=== PATIENT | female | born 1960 | race Caucasian/White ===

== ENCOUNTER 2017-06-24 14:54 | Emergency (ER) | payer OTHER, MEDICAID, SELFPAY | END 2017-06-24 18:12 | disposition home or self-care (01) | PROVIDERS: Emergency Provider Emergency Medicine; Visit Provider Emergency Medicine | DX: J20.9 Acute bronchitis, unspecified (principal) | CPT/HCPCS: 36415; 71020; 71046; 80053; 83605; 83880; 84484; 85025; 85610; 85730; 87040; 93005; 93010; 94799; 99058; 99285 ==

== ENCOUNTER → 2017-07-24 13:55 | Outpatient (CLI) | payer OTHER, MEDICAID, SELFPAY | PROVIDERS: Visit Provider Internal Medicine | DX: S11.89XA Other open wound of other specified part of neck, initial encounter (principal); L59.8 Other specified disorders of the skin and subcutaneous tissue related to radiation; L98.492 Non-pressure chronic ulcer of skin of other sites with fat layer exposed | CPT/HCPCS: 11042 ==

== ENCOUNTER → 2017-07-31 13:51 | Outpatient (REF) | payer OTHER, MEDICAID, SELFPAY | LOC: LAB 13:51 | PROVIDERS: Visit Provider Internal Medicine | DX: L08.9 Local infection of the skin and subcutaneous tissue, unspecified (principal) | CPT/HCPCS: 87070; 87075; 87077; 87186; 87205 ==

== ENCOUNTER → 2017-07-31 14:00 | Outpatient (CLI) | payer OTHER, MEDICAID, SELFPAY | PROVIDERS: Visit Provider Internal Medicine | DX: L59.8 Other specified disorders of the skin and subcutaneous tissue related to radiation (principal); S11.89XA Other open wound of other specified part of neck, initial encounter; L98.492 Non-pressure chronic ulcer of skin of other sites with fat layer exposed | CPT/HCPCS: 11042; 87070; 87077; 87186; 87205 ==

== ENCOUNTER → 2017-08-07 13:04 | Outpatient (CLI) | payer OTHER, MEDICAID, SELFPAY | PROVIDERS: Visit Provider Internal Medicine | DX: S11.89XA Other open wound of other specified part of neck, initial encounter (principal); L59.8 Other specified disorders of the skin and subcutaneous tissue related to radiation; B95.2 Enterococcus as the cause of diseases classified elsewhere | CPT/HCPCS: 11042 ==

== ENCOUNTER → 2017-08-14 15:13 | Outpatient (CLI) | payer OTHER, MEDICAID, SELFPAY | PROVIDERS: Visit Provider Internal Medicine | DX: S11.89XA Other open wound of other specified part of neck, initial encounter (principal); L59.8 Other specified disorders of the skin and subcutaneous tissue related to radiation; L98.492 Non-pressure chronic ulcer of skin of other sites with fat layer exposed; B95.2 Enterococcus as the cause of diseases classified elsewhere | CPT/HCPCS: 11042 ==

== ENCOUNTER → 2017-08-24 13:16 | Outpatient (CLI) | payer OTHER, MEDICAID, SELFPAY ==
--- NOTE | 2017-08-24 | OV.WND_ITS ---
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 Allergies Penicillins (Severity: Moderate, Reaction: rash and hives), Vicodin (Severity: Moderate, Reaction: Rash and hives), ibuprofen (Severity: Moderate, Reaction: Rash and hives), Gelusil Antacid and Anti-Gas (Severity: Moderate, Reaction: increase in stomach discomfort), Septra (Severity: Moderate, Reaction: GI upset), Flagyl (Severity: Moderate, Reaction: Rash), Benadryl (Reaction: Rash), ranitidine (Severity: Moderate, Reaction: SOB, dizzy) HPI This information was obtained from the patient 08/24/17. Seen by Dr. Cornell. 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 She continues to apply topical gentamicin to the ulcer to treat the Enterococcus positive wound culture as recommended. 08/14/17. Seen by Dr. Cornell. The patient's been applying topical gentamicin daily to the soft tissue radiation neck ulcer to treat the recent Enterococcus positive wound culture and she's completed her course of levofloxacin. 08/07/17. Seen by Dr. Cornell. 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 She does not report increased pain nor drainage from the site however nor other acute issues today. 07/31/17. Seen by Dr. Cornell. 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 07/24/17. Seen by Dr. Cornell. 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 07/17/17. Seen by Dr. Cornell. 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 Of note, the patient also states she fell from her bed a few days ago resulting in bilateral black eyes. 07/10/2017. Seen by Dr. Cornell. 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 She does not report increased drainage however nor other acute issues. 07/03/17. Seen by Dr. Cornell. 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 06/19/17. Seen by Dr. Cornell. 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 06/09/17. Seen by Dr. Cornell. The patient reports some pain associated with the anterior neck right sided soft tissue radiation ulcer and continues on doxycycline and levofloxacin following a recent admission for a COPD exacerbation. She does not report increased drainage from the ulcer sites and is using Xeroform and Scar-away dressings as recommended. 06/01/17. Seen by Dr. Cornell. The patient was admitted to the hospital for a COPD exacerbation and is now on oral antibiotics following discharge. She reports some ear pain but otherwise no acute issues. Regarding her soft tissue radiation ulcers over the anterior neck she is now using the silicone dressings and Xeroform as recommended and does not report significant pain or drainage.Of note, these are complicated significantly by her tracheostomy tube and attached strap that tends to shear the irradiated skin causing ulcers. 05/25/17. Seen by Dr. Cornell. The patient reports pain associated with the chronic soft tissue radiation neck ulcers. She states her dressings are not on continuously and that she has been wearing her tracheostomy strap for extended periods at home despite our advice to not use it if possible. 05/18/17. Seen by Finn Felton PA-C. The patient reports continued pain from her soft tissue radiation ulcers of the neck. She has finished a once daily antibiotic for a URI but does not recall which antibiotic it was. 05/11/17. Seen by Finn Felton PA-C. The patient reports increased pain and increased drainage from her soft tissue radiation ulcers of the neck. 04/23/17. Similarly Dr. Cornell. The patient does not report increased pain nor drainage associated with the chronic neck soft tissue radiation ulcers since her last visit. 04/16/17. Seen by Finn Felton PA-C. The patient reports that the Radia-gel dressings did not stay in place and the tape used to secure them caused skin tears. 04/09/17. Seen by Finn Felton PA-C. The patient reports no increase in drainage from her radiation ulcers of the neck. 04/02/17. Seen by Finn Felton PA-C. The patient reports her usual amount of pain from her anterior neck ulcers. 03/26/17. Seen by Dr. Cornell. 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 She was discharged recently from [facility] following treatment for an acute URI and is now on levofloxacin. 03/19/17. Seen by Dr. Cornell. The patient does not report significant pain associated with chronic anterior neck soft tssue radiation ulcer since her last visit. 03/12/17. Seen by Dr. Cornell. The patient reports increased pain associated with the anterior neck soft tissue radiation ulcers. Of note, she is reusing her silicon dressings and washing them despite being advised not to do this in the past. She has very limited financial resources that is leading her to do this. 03/04/17. Seen by Dr. Cornell. 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 She continues on doxycycline for a cat bite at the right arm without reported adverse side effects and feels this is improving. There are also no new issues regarding his left neck nonpressure ulcer. 02/24/17. Seen by Dr. Cornell. 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 She was seen in the ER for this and had a CT performed that showed cellulitis but no associated abscess. She was started on levofloxacin at that visit. Also, she was to start doxycycline following her last wound care visit for a cat bite of the right arm however states the antibiotic was not covered by insurance so she has not started this. Otherwise, she does not report fevers or feeling unwell in general. 02/17/17. Seen by Dr. Cornell. The patient reports continued pain associated with the anterior and left lateral neck soft tissue radiation ulcers since her last visit. She is not currently on antibiotics. She also reports a cat bite of the right arm that's been bleeding and painful for the past 2 days since it occurred. 02/10/17. Seen by Finn Felton PA-C. The patient reports a new ulcer on her left neck , in the irradiated area from her previous radiation treatment. 01/16/17. Seen by Dr. Cornell. The patient reports some moderate pain and drainage associated with her chronic neck soft tissue radiation ulcers since her last visit. 01/09/17. Seen by Dr. Cornell. The patient does not report significant pain or increased drainage associated with her chronic neck soft tissue radiation ulcers since her last visit. Her recent wound culture grew ocampo-sensitive Staph aureus and she's applying topical gentamicin as recommended. 01/01/17. Seen by Finn Felton PA-C. The patient reports increased pain and drainage from her chronic neck ulcers which overly an irradiated field. 12/17/16. Seen by Dr. Cornell. The patient does not report significant pain or increased drainage associated with her chronic neck soft tissue radiation ulcers since her last visit. She'll be leaving for a hunting trip and will be gone until December 31. 12/11/16. Seen by Dr. Cornell. The patient does not report significant pain nor drainage associated with chronic neck soft tissue radiation ulcers since her last visit. She completed her course of levofloxacin in the interim and also states that she will not be undergoing reconstructive surgery following discussion with her surgeons. 11/27/16. Seen by Dr. Cornell. The patient reports increased pain and some bloody drainage associated with the anterior neck soft tissue radiation ulcer. She also states that she's had a persistent and productive cough over the past few days. Her most recent wound culture grew MSSA and the prior grew a pansensitive Pseudomonas organism. Staff also report a new ulcer over the left anterior neck. 11/20/16. Seen by Finn Felton PA-C. The patient came in urgently today to be evaluated for increased bleeding and drainage from her neck ulcers which overly radiation damaged tissue. 11/14/16. Seen by Dr. Cornell. The patient continues to apply topical gentamicin to the chronic soft tissue radiation neck ulcers to treat the recent Pseudomonas positive wound culture. She does not report significant pain or increased drainage from these sites. She has an appointment with another surgeon on November 21 to further discuss reconstructive options regarding the narrowing of her stoma and significant soft tissue contractures around the anterior neck. 11/07/16. Seen by Dr. Cornell. The patient reports a new ulcer over the left side of her neck at an area of scarring associated with her chronic soft tissue radiation injury of the neck. She does not report significant pain nor drainage at the site nor from the chronic anterior nonpressure ulcer. Her last culture at that site grew Pseudomonas that is intermediately. 10/31/16. Seen by Dr. Cornell. The patient and her caregiver reports increased drainage associated with the chronic and progressive right anterior neck soft tissue radiation ulcer over the past week. They're having issues in terms of dressing changes and managing increased drainage and the patient also has a persistent and productive cough with mucus being expelled from the tracheostomy site. Of note, the caregiver states that she has been attempting to liaise with Dr. Lopez's office, ENT surgery at , regarding a follow up appointment to discuss reconstructive surgery in hopes of addressing the chronic skin contractures that are contributing heavily to the refractory nature of this neck ulcer. 10/23/16. Seen by Finn Felton PA-C. The patient reports no increase in pain or drainage from her neck ulcer. Her two ulcers have bridged into one ulcer. She has no new news regarding a surgical revision. 10/10/16. Seen by Dr. Cornell.The patient does not report increased pain or drainage associated with the chronic soft tissue neck radiation ulcers since her last visit. Her culture from the last visit grew diphtheroids and she's been applying topical gentamicin as recommended. According to her caregiver they have still not heard back regarding an appointment with her surgeon who is planning a revision for the stenosed tracheostomy site noting the tube is contributing significantly to the ulcer formation. She also does not report significant pain or drainage associated with the superficial abdominal abscess noted at her last visit. 10/03/16. Seen by Dr. Cornell. The patient continues to report some pain associated with the chronic neck soft tissue radiation ulcers. The patient caregiver feels the proximal ulcer continues to increase in size. They have not yet scheduled an appointment for revision surgery for the tracheostomy as was discussed last week. 09/26/16. Seen by Dr. Cornell. The patient continues to report some pain as well as persistent drainage associated with the chronic right neck soft-tissue radiation ulcers. 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 He is planning for a revision surgery to try to address this issue in the near future. 09/19/16. Seen by Dr. Cornell. The patient and her brother continue to report some pain associated with the chronic neck nonpressure ulcers but no increased drainage and they've been changing the silicon dressings as recommended to protect the soft-tissue radiation injured skin and protect against abrasion caused by the tracheosteomy tube. Of note, the patient feels as though the stoma may gradually be tightening as she continues to have some difficulty replacing the tube after taking it out. She also reports some persistent productive coughing and nasal drainage in the evenings and through the night and feels it may be related to allergies. 09/01/16. Seen by Dr. Cornell. The patient's brother who's present today reports that the patient's silicon dressings are being changed less frequently than recommended and in washing them the adherence is deteriorating which may be leading to loss of function in terms of protecting the underlying irradiated skin and neck ulcers. She does not report increased drainage or pain associated with the neck ulcers today. 08/28/16. Seen by Dr. Cornell. The patient removed her tracheostomy tube in clinic today and is having difficulty replacing it. She's a bit anxious at the time of exam but is breathing without distress or audible stridor. Regarding her chronic neck soft tissue radiation ulcers, there's no new issues to report and she's been dressing them as recommended. 08/21/16. Seen by Dr. Cornell. The patient reports continued pain and drainage associated with the chronic soft tissue radiation ulcer along the margin of her tracheostomy stoma. She and her caregiver are dressing it as recommended and she's completed her course of antibiotics those treating the recently cultured MRSA. 08/15/16. Seen by Dr. Cornell. The patient reports increased pain associated with the chronic soft tissue radiation neck ulcers since her last visit and her caregiver reports some thick overlying drainage around the mid-line ulcer adjacent to the tracheostomy stoma. She does not report fevers or feeling unwell however and has been applying topical antibiotic to the ulcers as recommended. 08/08/16. Seen by Dr. Cornell. The patient reports continued pain associated with the chronic anterior neck non-pressure ulcers and they've been applying topical gentamicin to treat the recurrent MRSA positive wound cutlures. She's also wearing her silicon dressing as recommended to help protect the soft tissue radiation injury of the skin from abrasion caused by her tracheostomy tube strap. 08/01/16. Seen by Dr. Cornell. The patient's caregiver reports improvement in terms of pain and drainage associated with the chronic neck ulcers. They've been applying topical gentamicin as recommended for the chronic wound infections. 07/23/16. Seen by Dr. Cornell. The patient's caregiver reports improvement in terms of pain and drainage associated with the chronic neck ulcers overlying the soft tissue radiation injury that follow treatment for her laryngeal cancer years ago. They've been applying topical gentamicin as recommended for the chronic wound infections. 07/09/16. Seen by Finn Felton PA-C. The patient reports she has run out of the silicone strips that were fabricated by [employer] to reduce abrasion from her laryngostomy collar. She is using scar fade strips which are not staying in place. Her neck ulcers continue to be present under the collar. 06/25/16. Seen by Dr. Cornell. The patient's caregiver reports improvement in terms of pain and drainage associated with the chronic neck ulcers. They've been applying topical gentamicin as recommended for the chronic wound infections. 06/11/16. Seen by Dr. Cornell. The patient reports improvement in terms of pain and drainage associated with the chronic neck ulcers. She completed her course of ciprofloxacin which was treating the recurrent ulcer infections and she continues to apply topical gentamicin to the ulcer beds. 06/04/16. Seen by Dr. Cornell. The patient continues to report some pain and minimal drainage associated with the chronic neck ulcers are complicated by underlying soft tissue radiation injury. She was just discharged from the hospital for tracheobronchitis and continues on ciprofloxacin with cultures that have grown Pseudomonas, Staph, and Haemophilus. She does not report adverse side effects from antibiotics nor fevers or feeling unwell today although she continues to have a mild cough. 05/26/16. Seen by Finn Felton PA-C. The patient reports no increase in drainage or pain from her neck ulcers. 05/16/16. Seen by Dr. Cornell. The patient does not report significant pain nor drainage associated with the recurrent neck soft tissue radiation ulcers since her last visit. She's been applying topical gentamicin as recommended and wearing the silicon dressings to protect from the trach tube strap rubbing on the irradiated skin.Also, her wound culture from the last visit grew MSSA. 05/09/16. Seen by Dr. Cornell. The patient feels her recurrent soft tissue radiation ulcers over the mid and left aspects of her neck are painful and draining for the past week. She reports wearing her silicon dressing but does not have it in place all of the time and has been leaving her tracheostomy tube strap off for extended periods during the day to help prevent abrasion. She's been applying topical gentamicin to the ulcers but is not currently on systemic antibiotics. 04/29/16. Seen by Finn Felton PA-C. The patient reports continued compliance with her silicone skin protector that she wears under her collar. She reports improvement in her neck ulcers, however she ran out of supplies a few days ago and now reports worsening of the ulcers. 04/11/16. Seen by Dr. Cornell. The patient reports decreased pain and drainage associated with the chronic neck non-pressure ulcers over the patient week and she's applying topical gentamicin to treat the chronic MRSA wound infection as recommended. She's also using silicon dressings to help better protect the soft tissue radiation injury to the neck which is heavily implicated in the recurrent and refractory nature of the ulcers. 04/04/16. Seen by Dr. Cornell. The patient reports an increase in the size and pain associated with the left neck non-pressure ulcer since her last visit. She's applying gentamicin ointment to all of the ulcers a recommended and using the silicon dressings to help prevent abrasion caused by the trach tube strap. 03/28/16. Seen by Dr. Cornell. The patient reports decreased pain and drainage associated with the chronic neck non-pressure ulcers over the patient week and she's restarted use of the silicon dressings again to protect the irradiated skin that's been breaking down under the trach strap and contributing to the recurrent and refractory nature of the ulcers. 03/21/16. Seen by Dr. Cornell. The patient reports decreased pain and drainage associated with the chronic neck non-pressure ulcers over the patient week and she continues applying topical gentamicin to treat the chronic MRSA wound infection. 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 03/13/15. Seen by Dr. Cornell. The patient reports decreased pain and drainage associated with the chronic neck non-pressure ulcers over the patient week since starting on doxycycline for a recurrent MRSA wound infection. She's now using silicon dressings to protect the irradiated skin over the neck that resulted from radiation therapy treating laryngeal cancer. She does not report adverse effects of the doxycycline and is also applying topical gentamicin daily to the ulcer sites. 03/06/16. Seen by Dr. Cornell. The patient reports persistent pain associated with the recurrent neck non-pressure ulcers and staff report they're larger and are draining based on the dressings. 02/28/16. Seen by Dr. Cornell. The patient returns with new ulcers overlying her soft tissue radiation neck injury that resulted following treatment for laryngeal cancer. She states she ran out of the silicon dressings she uses to protect the area from her trach tube strap and after this the ulcers appeared and are quite painful. Their draining however she does not report fevers. 11/28/15. Seen by Dr. Cornell. 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 11/21/15. Seen by Dr. Cornell. The patient reports some minimal pain associated with the chronic neck soft tissue radiation ulcer since her last visit. She also complains of right ear pain and has asked me to have look in the ear as it feels like there may be a foreign body present. She also reports a mild cough, sore throat, and feeling a bit unwell in general. 11/14/15. Seen by Dr. Cornell. The patient reports moderate pain but no significant drainage associated with the left neck soft tissue radiation ulcer since her last visit. 10/31/15. Seen by Dr. Cornell. The patient reports some pain associated with the left neck soft tissue radiation ulcer but no increased drainage from either ulcer nor pain associated with the middle soft tissue radiation ulcer. Her caregiver notes that they're running out of the silicon dressings and they've become nearly prohibitively expensive. 10/12/15 Seen by Finn Felton PA-C. The patient returns to our clinic after reconstructive scar- revision surgery on her radiation damaged neck. She has wounds that have been left to close by secondary intention and are slow to heal. In addition, her silicone strips that help hold her laringostomy collar in place continue to work well for her. 09/07/[address] Cornell. The patient presents with a new rash over the right neck overlying the soft tissue radiation injury. Of note, her very chronic wounds at the same site were recently healed. She dose not report pain, drainage, or skin breakdown associated with the rash. 08/24/[address] Cornell. The patient does not report pain or drainage associated with the chronic neck soft tissue radiation ulcers over the past few days and she's using the silicon dressings to cover the ulcers. 08/15/[address] Cornell. The patient nor her caregiver report significant pain or drainage from either the left or right neck soft tissue radiation ulcers over the past week and she's received her silicon dressings that are being used to prevent abrasion to the skin caused by her laryngostomy tube strap. 08/09/[address] Cornell. 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 Otherwise the right neck ulcers remain relatively stable and have minimal drainage over the past week. 08/02/[address] Cornell. The patient reports minimal discomfort associated with the chronic neck soft tissue radiation ulcers and her caregiver feels they've improved considerably over the past week while applying gentamicin ointment and using the silicon dressing to prevent abrasion from the trach strap. 07/26/[address] Cornell. The patient reports only moderate discomfort and minimal drainage associate with her remaining soft tissue radiation ulcers of the neck. 07/19/[address] Cornell. The patient's caregiver reports increased drainage on the dressings covering the neck soft tissue radiation ulcers and the patient reports some increased pain at the ulcer sites. They're also running out of the silicon dressings they' ve been using to protect the ulcers from abrasion caused by the overlying trach strap. She does not report any problems regarding the chronic left upper arm wound. 07/12/[address] Cornell. The patient does not report increased pain or drainage associated with her chronic neck soft tissue radiation ulcers and she's been using her silicon wound dressings daily. She feels her ulcers are much less painful since changing to the new dressings. 07/05/[address] Cornell. The patient reports a significant improvement in pain regarding her chronic neck soft tissue radiation ulcers since starting to use adherent silicon dressings to prevent abrasion caused by her trach strap. She does not report significant drainage from the ulcers. 06/22/[address] Cornell. The patient continues to report persistent pain associated with the chronic neck soft tissue radiation ulcers. 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 06/12/15 Seen by Finn Felton PA-C. The patient reports continued pain from her radiation neck ulcers. 06/05/15 Seen by Finn Felton PA-C. The patient reports continued pain and stable drainage from her neck radiation ulcers. She continues to use her favored dressings instead of ones that we have recommended for her. 05/21/15 Seen by Finn Felton PA-C. The patient reports continued pain and no change in drainage from her neck radiation ulcers and her arm and chest wounds. 05/08/15 Seen by Finn Felton PA-C. The patient reports continued pain and stable drainage from her neck radiation ulcers. Flores from [facility] [employer] attended part of the appointment to try fitting her for the laryngectomy collar protective prosthetic. 04/25/[address] Cornell. The patient continues to report significant pain associated with the chronic soft tissue radiation neck ulcers and the staff report at least moderate drainage on her dressings today. She does not report fevers or feeling unwell otherwise. 04/11/[address] Cornell. The patient been on levofloxacin and doxycycline for Pseudomonas and MRSA positive wounds cultures taken from her soft tissue radiation ulcers over the neck and around the laryngostomy wound. She still reports pain associated with the ulcers but indicates it's not as bad as last week. 04/05/[address] Cornell. The patient reports persistent pain associated with her neck soft tissue radiation ulcers. She's currently on levofloxacin and doxycycline for the Pseudomonas and MRSA positive culture taken at the last visit and she does not report adverse side effects. 03/28/2015 Seen by Finn Felton PA-C. The patient continues to complain of neck ulcer pain. In addition she again asks today why are they hurting. She has not been compliant with any of our attempts at specialized laryngectomy collar padding or dressings. 03/21/2015 Seen by Finn Felton PA-C. The patient returns with stable 6-7/10 constant pain from the radiation ulcers on her neck. She continues on Doxycycline and has finished her course of prednisone for a URI as prescribed by her PCP. He has recently not been able to keep the Radiagel sheets attached to her neck or tracheostomy collar and has gone back to using Xeroform gauze. 02/19/15 Seen by Finn Felton PA-C. The patient returns for evaluation of her radiation ulcers of the neck. She reports continued pain and her most recent dressings that we have trialed did not stay in place. 02/12/15 Seen by Finn Felton PA-C. The patient reports continued neck pain from her radiation ulcers as well as tightness in her surrounding neck tissues. She reports the pain is exacerbated by rubbing of her tracheostomy tube macias and by any palpation or instrumentation. Drainage has been minimal. 02/05/15 Seen by Finn Felton PA-C. The patient presents today with a new wound on her left lateral neck, on her irradiated tissue. This wound is 01/24/[address] Cornell. The patient reports a cough and feeling unwell the past few days. She continues on doxycycline and levofloxcacin for the recent MRSA and Pseudomonas positive wound culture. Of note, she arrives today with gauze dressings over her next ulcers as opposed to foam which has been recommended. 01/17/[address] Cornell. The patient's been started on doxycycline and levofloxacin for her wound culture from the last visit that grew MRSA again plus Pseudomonas which is new. She reports having a cough and low grade fever also and the staff report the left neck ulcer dressings as being quite wet. 01/12/[address] Cornell. The patient indicates the neck ulcer pain is a 6-7/ 10 today and states she's been adhering to our dressing change recommendations. She's not currently on antibiotics and does not report fever although she feels a bit under the weather. 01/05/[address] Cornell. The patient complains of 4/10 pain at the site of her remaining chronic neck ulcers. 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 12/18/14 Seen by Finn Felton PA-C. The patient continues to have difficulty securing her dressings and keeping them in place under her tracheostomy collar. She is planning on going deer hunting and will be away from our clinic for over 1 week. 12/12/[address] Cornell. The patient complains of significant right ear pain. Her left neck ulcer culture from the last visit grew MRSA and she's not currently on antibiotics at this time. Of note, the foam that we placed around the tracheostomy tube to prevent abrasion was not in place on the patient's arrival today. 12/08/[address] Cornell. The patient complains of some persistent pain at the site of the left neck ulcer but does not report fever or increased drainage. Of note, she's not changed her dressing since her last visit 3 days ago. 11/28/14 Seen by Finn Felton PA-C. The patient again reports right ear pain without drainage or disturbance in hearing. The dressing on her head wound has stayed in place and her neck dressings lasted less than 24hrs in place. Scalp wound pain has decreased. 11/28/14 Seen by Finn Felton PA-C. The patient has seen her PCP for her right ear issues and he has prescribed her Cefuroxime, which she is currently taking. She has kept her scalp dressing in place and reports continued neck pain and a new neck wound on the left. 11/14/14 Seen by Finn Felton PA-C. The patient's right sided neck wound and scalp wound are much improved today after she has been keeping her head wound covered and has loosened her trach collar. Both wounds are reportedly less painful than before. 11/07/14 Doc Z Surg: patient returns for follow-up of the radiation injury and mechanical abrasions wounds of the neck laterally and anteriorly adjacent to the tracheostomy straps which appear to have been chafing on this sensitive skin in the field of radiation. The padded protective dressing has been utilized since her last visit and shows marked improvement in all of the wounds. Also the scalp abrasions which appear to be fingernail scrapings have also improved markedly after the patient educated to avoid fingernails scratching on the scalp area. Question was raised regarding the possibly poor fitting tracheostomy tube but this appears normal and not problematic to my examination. At present I do not see any need for ENT reevaluation of the [id number] tracheostomy site. 10/26/[address] Cornell. The patient complains of recurrent right ear pain that's constant over the past week but does not report fever, sweats, or drainage from the ear. Her wound cultres from the scalp and neck ulcers grew MRSA on 10/04/14. She continues to report pain at these sites and has been unable to maintain dressings as recommended due to discomfort and the fact the scalp dressing falls off. 10/12/14 Seen by Finn Felton PA-C. The patient reports ear pain after completing HBOT. Her wounds still feel tight around her neck but are otherwise stable and more comfortable with her new foam neck dressings. 10/04/[address] Cornell. The patient feels the pain associated with her neck and scalp ulcers is improved and only noticeable intermittently. She arrived today with foam dressings over the neck ulcers which we started utilizing last week to minimize trauma from the tracheostomy tube harness to the skin and ulcers beneath. 09/27/[address] Cornell. The patient feels her neck ulcers and scalp wounds are less painful however the staff report that the dressing plan we implemented to help prevent abrasion to the neck ulcers does not seem to have been continued after the patient left clinic last week. She's now off of antibiotics and does not report increased drainage. 09/20/[address] Cornell. The patient feels her scalp and neck ulcer pain are improving since she's been on IV daptomycin. She also had a doppler study yesterday that rule out a left arm DVT however she still complains of swelling and discomfort in the arm. 09/06/[address] Cornell. The patient complains of continued pain and drainage associated with her scalp and neck ulcers. She's no longer on antibiotics and recently grew Enterococcus and resistant coag negative Staph from the ulcer sites respectively. 08/30/[address] Cornell. The patient reports continued pain at the neck and scalp ulcers and her scalp wound grew Enterococcus on 08/23/14. She's taking clindamycin and completed a course of azithromycin that were started in the ER due to a recurrent URI. 08/16/14 Seen by Finn Felton PA-C. The patient continues to take Keflex for her scalp wound bacterial infection. She reports it is now more painful and draining more than before. Her neck radiation wounds continue to feel tight. 08/14/14 Seen by Finn Felton PA-C. The patient complains of right ear pain and fullness which started today. She reports feeling like she might have a cold coming on. 08/09/[address] Cornell. The patient complains of persistent pain at the site of the neck ulcers and worsening pain at the scalp ulcer. She's taking doxycycline based on the most recent MSSA wound culture sensitivities from the neck ulcer and does not report any adverse side effects. 07/08/[address] Cornell. The patient feels the neck ulcer pain is improving and she's completed her course of doxycycline that was started last week. She still complains of significant pain a the site of the scalp lesion however. Her wound culture from 07/28 grew MSSA sensitive to doxycycline. 07/26/[address] Cornell. The patient complains of increased pain at the neck ulcers as well as the scalp lesion. She does not report increased drainage, fever, cough, or chills and states her previously reported right ear pain has improved. 07/14/[address] Cornell. The patient reports right ear pain with a sore throat but no fevers or cough. 07/11/14 Seen by Finn Felton PA-C. The patient reports less scalp pain and no drainage from her scalp wound. She continues to report a pulling type pain in and around her neck wounds. 07/04/14 Seen by Finn Felton PA-C. The patient has cut her fingernails short and reports that her scalp wound is hurting and itching less. She reports a new wound over an old abdominal scar today. It has been present for 5 days and she is not sure how it occurred. 06/20/14 The patient feels her neck ulcer pain as well as the scalp lesion pain have improved since starting doxycycline. She continues to apply hydrogel and Xeroform to the neck ulcers to keep them moist. Otherwise she's tolerating HBOT without difficulty and has made significant progress in the healing of the neck ulcers throughout this most recent series of dives. 06/13/14 The patient indicates that her neck ulcers 'feel tight' and she still has some discomfort at the scalp lesions. She also complains of significant pruritis in the area of the scalp lesions. She's been taking taking doxycycline for the past week to treat a MRSA positive culture of the scalp ulcer. 06/06/14 The patient reports continued pain from all of her wounds and frustration that her scalp wound has not healed despite her not scratching it. 05/31/14 The patient's here for HBOT today but complains of new left facial pain over the angle of the mandible that started yesterday. She does not complain of ear pain or an dental or intraoral pain but has been treated in the hospital recently for recurrent pneumonia. She's also been reviewed in the past 3 months by her oncologist and reportedly is cancer free. 05/30/14 The patient does not report increased pain or drainage from her neck wounds nor scalp lesion. 05/18/14 The patient complains of significant pain at the left 3rd finger wound as well as her chronic scalp wound. Otherwise she does not report significant pain nor drainage from the neck wounds. 05/12/14 The patient does not report increased pain or drainage from her neck ulcers nor the wound on the scalp. 05/04/14 The patient reports increased pain at the left neck wound and apparently the barrier dressing slipped down and her guaze became adherent resulting in a skin tear upon removal. Otherwise she continues to complain of pain at both neck wounds and the scalp wound. 05/02/14 The patient was seen today in the HBOT treatment room for complaints of a productive cough. She was recently discharged from the hospital with a diagnosis of tracheobronchitis and is finishing a course of Levaquin. Cough is described as yellow and thick and is difficult to clear from her tracheostomy. 04/21/14 The patient complains of persistent ear pain in the right ear despite using antibiotic drops Rx'd by her ENT provider last week. She does not report drainage or fever. 04/18/14 The patient states her cough is improving and she's still on antibiotics from her recent admission for pneumonia. She does not report increased drainage or pain from the neck ulcers but states her right ear pain has returned. She was seen by ENT who felt the lesion in the external canal was traumatic and she was given an Rx for ear drops which she states she's been using. She also reports recurrence of the painful left scalp wound that was recently healed. 04/11/14 The patient complains of a cough productive of green sputum for the past few days that's particularly worse when lying flat. She indicates that she feels generally unwell and weak and is questioning whether she can tolerate HBOT today. 04/05/14 The patient continues to complain of right ear pain however does not report bleeding from the ear today. Of note, she was reviewed for this problem last week and a shallow ulcer in the right external ear canal was the only finding. 03/30/14 The patient reports continued 5/10 pain from her neck wound which is described as a constant, pulling type pain, which is exacerbated by flexing, extending or rotating her neck. 03/29/14 The patient completed her HBOT dive today and now complains of blood draining from the right ear. She does not report pain now nor during the dive today. 03/23/14 The patient reports increased pain from her medial neck wounds as well as from her scalp wound. The pain is described as a throbbing and sometimes pulling pain that is constant in nature and has no exacerbating factors, nor is it associated with any activity. She does not report fever, chills or increased wound drainage. Additionally the patient reports her [facility] doctors are considering a reconstructive surgical revision of her neck once her current wounds heal. She brings with her today a note from her [facility] doctors on a prescription pad, on which is written Please continue hyperbaric oxygen therapy. 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/14) Ear pain (right side; recurrent) Chronic ulcer (scalp; Enterococcus positive culture on 08/23/14; MRSA positive on 10/04/14) Complaints and Symptoms This information was obtained from the patient Patient complains of: General Notes: I have reviewed and concur with the Review of Systems and Past Family Social History documents completed by the clinician, I have reviewed and concur with the Wound Assessment document completed by the clinician Ear/Nose/Mouth/Throat: Ear Pain Integumentary (Hair/Skin/Nails): Open Sore Musculoskeletal: Deformities, Muscle Weakness Prior Wound History: Bleeding, Drainage, Erythema, Pain Patient denies complaints or symptoms related to: Cardiovascular (Central): Irregular heart beat Constitutional Symptoms (General Health): Chills, Fever, Marked Weight Change Ear/Nose/Mouth/Throat: Hearing Loss / Aid Gastrointestinal (GI): Nausea / Vomiting, Stomach/abdominal pain Hematologic/Lymphatic: Bleeding / Clotting Disorders, Bleeding Tendency Neurological: Loss of Protective Sensation Prior Wound History: Malodor Respiratory: Cough, Oxygen Use, Shortness of Breath OBJECTIVE Constitutional BP elevated; Afebrile; Alert and in no distress. Well developed. Alert. Clean appearing.. Height/Length: 66 in (167.64 cm), Weight: 224.7 lbs (102.14 kgs), BMI: 36.3, Temperature: 98.0 ?F (36.67 ?C), Pulse: 78 bpm, Respiratory Rate: 18 breaths/min, Blood Pressure: 161/88 mmHg, Pulse Oximetry: 95 %. Neck: Chronic skin contractures stable. Respiratory: No respiratory distress. Even respirations and without use of accessory muscles.. Integumentary (Hair, Skin) Mild periwound erythema without warmth. Refer to appropriate clinician wound documentation for this visit; anterior neck ulcer extends to subcut with base covered with minimal pink granulation and wet slough; smaller than on last review with bridge of epithelium crossing middle. Wound #36 Right, Proximal Neck is an acute Full Thickness Radiation Wound and has received a status of Not Healed. Subsequent wound encounter measurements are 4.2cm length x 1.1cm width x 0.1cm depth, with an area of 4.62 sq cm and a volume of 0.462 cubic cm. No tunneling has been noted. A sinus tract has been noted at :00. No undermining has been noted. There is a moderate amount of seropurulent drainage noted which has no odor. The patient reports a wound pain of level 4/10. The wound margin is attached. Wound bed has No epithelialization, No eschar, Yes slough, Yes pink, firm granulation. The periwound skin texture is normal. The periwound skin exhibited: Moist, Erythema. The periwound skin did not exhibit: Dry/Scaly, Maceration, Atrophie Melissa, Cyanosis, Ecchymosis, Hemosiderosis, Pallor, Rubor. The temperature of the periwound skin is WNL. Periwound skin does not exhibit signs or symptoms of infection. Local Pulse is N /A. General Notes: satellite 1.0 x0.3 0.1 Neurological: Cranial nerves grossly intact with symmetric function normal by informal observation.. ASSESSMENT Active Problems ICD-10 (Encounter Diagnosis) S11.89XD - Other open wound of other specified part of neck, subsequent encounter (Encounter Diagnosis) L59.8 - Other specified disorders of the skin and subcutaneous tissue related to radiation (Encounter Diagnosis) L98.492 - Non-pressure chronic ulcer of skin of other sites with fat layer exposed (Encounter Diagnosis) B95.2 - Enterococcus as the cause of diseases classified elsewhere PROCEDURES Wound #36 Wound #36 (Radiation Wound) is located on the right, proximal neck. A skin/ subcutaneous tissue level surgical debridement with a total area debrided of 4.62 sq cm was performed by Duy Cornell MD. Subcutaneous was removed along with devitalized tissue: exudate and slough. The following instrument(s) were used: curette. Pain control was achieved using EMLA lidocaine/prilocaine 2.5%/2.5%. A time out was not conducted prior to the start of the procedure. A minimal amount of bleeding was controlled with pressure. The procedure was tolerated well with a pain level of 0 throughout and a pain level of 1 following the procedure. Post Debridement Measurements: 4.2cm length x 1.1cm width x 0.2cm depth; with an area of 4.62 sq cm and a volume of 0.924 cubic cm; PLAN Wound Orders: Wound #36 Right, Proximal Neck Anesthetic Topical Xylocaine to wound bed. - Lidocaine in clinic only. Cleanser Cleanse Wound: - Normal saline and gauze. May use distilled water at home. May Shower. - Please change dressings immediately after showering. Dressings Primary dressing: - Gentamicin to wound base. Cover and secure with: - Thin hydrocolloid cut to cover. Change Dressing: - Everyday Follow-Up Appointments Return Appointment: - - One week. Other information: If you develop fever, chills, increased pain, drainage, redness or swelling please call our office. If after hours, respond to the ER. Should you experience any significant changes in your wound(s) or have any questions regarding your home care instructions please contact the wound center @ [phone]. If after hours, contact your primary care physician or go to the hospital emergency room. Scribing Attestation I attest, as the nurse, that I scribed these orders for the physician. I've reviewed the clinician's documentation and agree with the evaluation and plan as written. In addition, the patient's ulcer demonstrates evidence of non-viable devitalized tissue which will continue to benefit from sharp debridement to help promote granulation and expedite healing. Also, the patient will continue applying topical gentamicin as the ulcer has shown improvement the past 2 weeks. Electronic Signature(s) Signed By: Date: Duy Cornell MD 08/24/2017 14:41:04 Entered By: Duy Cornell on 08/24/2017 11:58:56
== END ==
PROVIDERS: Visit Provider Internal Medicine
DX: L59.8 Other specified disorders of the skin and subcutaneous tissue related to radiation (principal); L98.492 Non-pressure chronic ulcer of skin of other sites with fat layer exposed; S11.89XA Other open wound of other specified part of neck, initial encounter; B95.2 Enterococcus as the cause of diseases classified elsewhere
CPT/HCPCS: 11042

== ENCOUNTER → 2017-08-31 08:52 | Outpatient (CLI) | payer OTHER, MEDICAID, SELFPAY ==
--- NOTE | 2017-08-31 | OV.WND_ITS ---
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 Allergies Penicillins (Severity: Moderate, Reaction: rash and hives), Vicodin (Severity: Moderate, Reaction: Rash and hives), ibuprofen (Severity: Moderate, Reaction: Rash and hives), Gelusil Antacid and Anti-Gas (Severity: Moderate, Reaction: increase in stomach discomfort), Septra (Severity: Moderate, Reaction: GI upset), Flagyl (Severity: Moderate, Reaction: Rash), Benadryl (Reaction: Rash), ranitidine (Severity: Moderate, Reaction: SOB, dizzy) HPI This information was obtained from the patient 08/31/17. Seen by Finn Felton PA-C. The patient reports pain associated with her chronic neck radiation ulcer. 08/24/17. Seen by Dr. Cornell. 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 She continues to apply topical gentamicin to the ulcer to treat the Enterococcus positive wound culture as recommended. 08/14/17. Seen by Dr. Cornell. The patient's been applying topical gentamicin daily to the soft tissue radiation neck ulcer to treat the recent Enterococcus positive wound culture and she's completed her course of levofloxacin. 08/07/17. Seen by Dr. Cornell. 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 She does not report increased pain nor drainage from the site however nor other acute issues today. 07/31/17. Seen by Dr. Cornell. 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 07/24/17. Seen by Dr. Cornell. 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 07/17/17. Seen by Dr. Cornell. 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 Of note, the patient also states she fell from her bed a few days ago resulting in bilateral black eyes. 07/10/2017. Seen by Dr. Cornell. 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 She does not report increased drainage however nor other acute issues. 07/03/17. Seen by Dr. Cornell. 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 06/19/17. Seen by Dr. Cornell. 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 06/09/17. Seen by Dr. Cornell. The patient reports some pain associated with the anterior neck right sided soft tissue radiation ulcer and continues on doxycycline and levofloxacin following a recent admission for a COPD exacerbation. She does not report increased drainage from the ulcer sites and is using Xeroform and Scar-away dressings as recommended. 06/01/17. Seen by Dr. Cornell. The patient was admitted to the hospital for a COPD exacerbation and is now on oral antibiotics following discharge. She reports some ear pain but otherwise no acute issues. Regarding her soft tissue radiation ulcers over the anterior neck she is now using the silicone dressings and Xeroform as recommended and does not report significant pain or drainage.Of note, these are complicated significantly by her tracheostomy tube and attached strap that tends to shear the irradiated skin causing ulcers. 05/25/17. Seen by Dr. Cornell. The patient reports pain associated with the chronic soft tissue radiation neck ulcers. She states her dressings are not on continuously and that she has been wearing her tracheostomy strap for extended periods at home despite our advice to not use it if possible. 05/18/17. Seen by Finn Felton PA-C. The patient reports continued pain from her soft tissue radiation ulcers of the neck. She has finished a once daily antibiotic for a URI but does not recall which antibiotic it was. 05/11/17. Seen by Finn Felton PA-C. The patient reports increased pain and increased drainage from her soft tissue radiation ulcers of the neck. 04/23/17. Similarly Dr. Cornell. The patient does not report increased pain nor drainage associated with the chronic neck soft tissue radiation ulcers since her last visit. 04/16/17. Seen by Finn Felton PA-C. The patient reports that the Radia-gel dressings did not stay in place and the tape used to secure them caused skin tears. 04/09/17. Seen by Finn Felton PA-C. The patient reports no increase in drainage from her radiation ulcers of the neck. 04/02/17. Seen by Finn Felton PA-C. The patient reports her usual amount of pain from her anterior neck ulcers. 03/26/17. Seen by Dr. Cornell. 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 She was discharged recently from [facility] following treatment for an acute URI and is now on levofloxacin. 03/19/17. Seen by Dr. Cornell. The patient does not report significant pain associated with chronic anterior neck soft tssue radiation ulcer since her last visit. 03/12/17. Seen by Dr. Cornell. The patient reports increased pain associated with the anterior neck soft tissue radiation ulcers. Of note, she is reusing her silicon dressings and washing them despite being advised not to do this in the past. She has very limited financial resources that is leading her to do this. 03/04/17. Seen by Dr. Cornell. 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 She continues on doxycycline for a cat bite at the right arm without reported adverse side effects and feels this is improving. There are also no new issues regarding his left neck nonpressure ulcer. 02/24/17. Seen by Dr. Cornell. 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 She was seen in the ER for this and had a CT performed that showed cellulitis but no associated abscess. She was started on levofloxacin at that visit. Also, she was to start doxycycline following her last wound care visit for a cat bite of the right arm however states the antibiotic was not covered by insurance so she has not started this. Otherwise, she does not report fevers or feeling unwell in general. 02/17/17. Seen by Dr. Cornell. The patient reports continued pain associated with the anterior and left lateral neck soft tissue radiation ulcers since her last visit. She is not currently on antibiotics. She also reports a cat bite of the right arm that's been bleeding and painful for the past 2 days since it occurred. 02/10/17. Seen by Finn Felton PA-C. The patient reports a new ulcer on her left neck , in the irradiated area from her previous radiation treatment. 01/16/17. Seen by Dr. Cornell. The patient reports some moderate pain and drainage associated with her chronic neck soft tissue radiation ulcers since her last visit. 01/09/17. Seen by Dr. Cornell. The patient does not report significant pain or increased drainage associated with her chronic neck soft tissue radiation ulcers since her last visit. Her recent wound culture grew ocampo-sensitive Staph aureus and she's applying topical gentamicin as recommended. 01/01/17. Seen by Finn Felton PA-C. The patient reports increased pain and drainage from her chronic neck ulcers which overly an irradiated field. 12/17/16. Seen by Dr. Cornell. The patient does not report significant pain or increased drainage associated with her chronic neck soft tissue radiation ulcers since her last visit. She'll be leaving for a hunting trip and will be gone until December 31. 12/11/16. Seen by Dr. Cornell. The patient does not report significant pain nor drainage associated with chronic neck soft tissue radiation ulcers since her last visit. She completed her course of levofloxacin in the interim and also states that she will not be undergoing reconstructive surgery following discussion with her surgeons. 11/27/16. Seen by Dr. Cornell. The patient reports increased pain and some bloody drainage associated with the anterior neck soft tissue radiation ulcer. She also states that she's had a persistent and productive cough over the past few days. Her most recent wound culture grew MSSA and the prior grew a pansensitive Pseudomonas organism. Staff also report a new ulcer over the left anterior neck. 11/20/16. Seen by Finn Felton PA-C. The patient came in urgently today to be evaluated for increased bleeding and drainage from her neck ulcers which overly radiation damaged tissue. 11/14/16. Seen by Dr. Cornell. The patient continues to apply topical gentamicin to the chronic soft tissue radiation neck ulcers to treat the recent Pseudomonas positive wound culture. She does not report significant pain or increased drainage from these sites. She has an appointment with another surgeon on November 21 to further discuss reconstructive options regarding the narrowing of her stoma and significant soft tissue contractures around the anterior neck. 11/07/16. Seen by Dr. Cornell. The patient reports a new ulcer over the left side of her neck at an area of scarring associated with her chronic soft tissue radiation injury of the neck. She does not report significant pain nor drainage at the site nor from the chronic anterior nonpressure ulcer. Her last culture at that site grew Pseudomonas that is intermediately. 10/31/16. Seen by Dr. Cornell. The patient and her caregiver reports increased drainage associated with the chronic and progressive right anterior neck soft tissue radiation ulcer over the past week. They're having issues in terms of dressing changes and managing increased drainage and the patient also has a persistent and productive cough with mucus being expelled from the tracheostomy site. Of note, the caregiver states that she has been attempting to liaise with Dr. Lopez's office, ENT surgery at , regarding a follow up appointment to discuss reconstructive surgery in hopes of addressing the chronic skin contractures that are contributing heavily to the refractory nature of this neck ulcer. 10/23/16. Seen by Finn Felton PA-C. The patient reports no increase in pain or drainage from her neck ulcer. Her two ulcers have bridged into one ulcer. She has no new news regarding a surgical revision. 10/10/16. Seen by Dr. Cornell.The patient does not report increased pain or drainage associated with the chronic soft tissue neck radiation ulcers since her last visit. Her culture from the last visit grew diphtheroids and she's been applying topical gentamicin as recommended. According to her caregiver they have still not heard back regarding an appointment with her surgeon who is planning a revision for the stenosed tracheostomy site noting the tube is contributing significantly to the ulcer formation. She also does not report significant pain or drainage associated with the superficial abdominal abscess noted at her last visit. 10/03/16. Seen by Dr. Cornell. The patient continues to report some pain associated with the chronic neck soft tissue radiation ulcers. The patient caregiver feels the proximal ulcer continues to increase in size. They have not yet scheduled an appointment for revision surgery for the tracheostomy as was discussed last week. 09/26/16. Seen by Dr. Cornell. The patient continues to report some pain as well as persistent drainage associated with the chronic right neck soft-tissue radiation ulcers. 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 He is planning for a revision surgery to try to address this issue in the near future. 09/19/16. Seen by Dr. Cornell. The patient and her brother continue to report some pain associated with the chronic neck nonpressure ulcers but no increased drainage and they've been changing the silicon dressings as recommended to protect the soft-tissue radiation injured skin and protect against abrasion caused by the tracheosteomy tube. Of note, the patient feels as though the stoma may gradually be tightening as she continues to have some difficulty replacing the tube after taking it out. She also reports some persistent productive coughing and nasal drainage in the evenings and through the night and feels it may be related to allergies. 09/01/16. Seen by Dr. Cornell. The patient's brother who's present today reports that the patient's silicon dressings are being changed less frequently than recommended and in washing them the adherence is deteriorating which may be leading to loss of function in terms of protecting the underlying irradiated skin and neck ulcers. She does not report increased drainage or pain associated with the neck ulcers today. 08/28/16. Seen by Dr. Cornell. The patient removed her tracheostomy tube in clinic today and is having difficulty replacing it. She's a bit anxious at the time of exam but is breathing without distress or audible stridor. Regarding her chronic neck soft tissue radiation ulcers, there's no new issues to report and she's been dressing them as recommended. 08/21/16. Seen by Dr. Cornell. The patient reports continued pain and drainage associated with the chronic soft tissue radiation ulcer along the margin of her tracheostomy stoma. She and her caregiver are dressing it as recommended and she's completed her course of antibiotics those treating the recently cultured MRSA. 08/15/16. Seen by Dr. Cornell. The patient reports increased pain associated with the chronic soft tissue radiation neck ulcers since her last visit and her caregiver reports some thick overlying drainage around the mid-line ulcer adjacent to the tracheostomy stoma. She does not report fevers or feeling unwell however and has been applying topical antibiotic to the ulcers as recommended. 08/08/16. Seen by Dr. Cornell. The patient reports continued pain associated with the chronic anterior neck non-pressure ulcers and they've been applying topical gentamicin to treat the recurrent MRSA positive wound cutlures. She's also wearing her silicon dressing as recommended to help protect the soft tissue radiation injury of the skin from abrasion caused by her tracheostomy tube strap. 08/01/16. Seen by Dr. Cornell. The patient's caregiver reports improvement in terms of pain and drainage associated with the chronic neck ulcers. They've been applying topical gentamicin as recommended for the chronic wound infections. 07/23/16. Seen by Dr. Cornell. The patient's caregiver reports improvement in terms of pain and drainage associated with the chronic neck ulcers overlying the soft tissue radiation injury that follow treatment for her laryngeal cancer years ago. They've been applying topical gentamicin as recommended for the chronic wound infections. 07/09/16. Seen by Finn Felton PA-C. The patient reports she has run out of the silicone strips that were fabricated by [employer] to reduce abrasion from her laryngostomy collar. She is using scar fade strips which are not staying in place. Her neck ulcers continue to be present under the collar. 06/25/16. Seen by Dr. Cornell. The patient's caregiver reports improvement in terms of pain and drainage associated with the chronic neck ulcers. They've been applying topical gentamicin as recommended for the chronic wound infections. 06/11/16. Seen by Dr. Cornell. The patient reports improvement in terms of pain and drainage associated with the chronic neck ulcers. She completed her course of ciprofloxacin which was treating the recurrent ulcer infections and she continues to apply topical gentamicin to the ulcer beds. 06/04/16. Seen by Dr. Cornell. The patient continues to report some pain and minimal drainage associated with the chronic neck ulcers are complicated by underlying soft tissue radiation injury. She was just discharged from the hospital for tracheobronchitis and continues on ciprofloxacin with cultures that have grown Pseudomonas, Staph, and Haemophilus. She does not report adverse side effects from antibiotics nor fevers or feeling unwell today although she continues to have a mild cough. 05/26/16. Seen by Finn Felton PA-C. The patient reports no increase in drainage or pain from her neck ulcers. 05/16/16. Seen by Dr. Cornell. The patient does not report significant pain nor drainage associated with the recurrent neck soft tissue radiation ulcers since her last visit. She's been applying topical gentamicin as recommended and wearing the silicon dressings to protect from the trach tube strap rubbing on the irradiated skin.Also, her wound culture from the last visit grew MSSA. 05/09/16. Seen by Dr. Cornell. The patient feels her recurrent soft tissue radiation ulcers over the mid and left aspects of her neck are painful and draining for the past week. She reports wearing her silicon dressing but does not have it in place all of the time and has been leaving her tracheostomy tube strap off for extended periods during the day to help prevent abrasion. She's been applying topical gentamicin to the ulcers but is not currently on systemic antibiotics. 04/29/16. Seen by Finn Felton PA-C. The patient reports continued compliance with her silicone skin protector that she wears under her collar. She reports improvement in her neck ulcers, however she ran out of supplies a few days ago and now reports worsening of the ulcers. 04/11/16. Seen by Dr. Cornell. The patient reports decreased pain and drainage associated with the chronic neck non-pressure ulcers over the patient week and she's applying topical gentamicin to treat the chronic MRSA wound infection as recommended. She's also using silicon dressings to help better protect the soft tissue radiation injury to the neck which is heavily implicated in the recurrent and refractory nature of the ulcers. 04/04/16. Seen by Dr. Cornell. The patient reports an increase in the size and pain associated with the left neck non-pressure ulcer since her last visit. She's applying gentamicin ointment to all of the ulcers a recommended and using the silicon dressings to help prevent abrasion caused by the trach tube strap. 03/28/16. Seen by Dr. Cornell. The patient reports decreased pain and drainage associated with the chronic neck non-pressure ulcers over the patient week and she's restarted use of the silicon dressings again to protect the irradiated skin that's been breaking down under the trach strap and contributing to the recurrent and refractory nature of the ulcers. 03/21/16. Seen by Dr. Cornell. The patient reports decreased pain and drainage associated with the chronic neck non-pressure ulcers over the patient week and she continues applying topical gentamicin to treat the chronic MRSA wound infection. 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 03/13/15. Seen by Dr. Cornell. The patient reports decreased pain and drainage associated with the chronic neck non-pressure ulcers over the patient week since starting on doxycycline for a recurrent MRSA wound infection. She's now using silicon dressings to protect the irradiated skin over the neck that resulted from radiation therapy treating laryngeal cancer. She does not report adverse effects of the doxycycline and is also applying topical gentamicin daily to the ulcer sites. 03/06/16. Seen by Dr. Cornell. The patient reports persistent pain associated with the recurrent neck non-pressure ulcers and staff report they're larger and are draining based on the dressings. 02/28/16. Seen by Dr. Cornell. The patient returns with new ulcers overlying her soft tissue radiation neck injury that resulted following treatment for laryngeal cancer. She states she ran out of the silicon dressings she uses to protect the area from her trach tube strap and after this the ulcers appeared and are quite painful. Their draining however she does not report fevers. 11/28/15. Seen by Dr. Cornell. 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 11/21/15. Seen by Dr. Cornell. The patient reports some minimal pain associated with the chronic neck soft tissue radiation ulcer since her last visit. She also complains of right ear pain and has asked me to have look in the ear as it feels like there may be a foreign body present. She also reports a mild cough, sore throat, and feeling a bit unwell in general. 11/14/15. Seen by Dr. Cornell. The patient reports moderate pain but no significant drainage associated with the left neck soft tissue radiation ulcer since her last visit. 10/31/15. Seen by Dr. Cornell. The patient reports some pain associated with the left neck soft tissue radiation ulcer but no increased drainage from either ulcer nor pain associated with the middle soft tissue radiation ulcer. Her caregiver notes that they're running out of the silicon dressings and they've become nearly prohibitively expensive. 10/12/15 Seen by Finn Felton PA-C. The patient returns to our clinic after reconstructive scar- revision surgery on her radiation damaged neck. She has wounds that have been left to close by secondary intention and are slow to heal. In addition, her silicone strips that help hold her laringostomy collar in place continue to work well for her. 09/07/[address] Cornell. The patient presents with a new rash over the right neck overlying the soft tissue radiation injury. Of note, her very chronic wounds at the same site were recently healed. She dose not report pain, drainage, or skin breakdown associated with the rash. 08/24/[address] Cornell. The patient does not report pain or drainage associated with the chronic neck soft tissue radiation ulcers over the past few days and she's using the silicon dressings to cover the ulcers. 08/15/[address] Cornell. The patient nor her caregiver report significant pain or drainage from either the left or right neck soft tissue radiation ulcers over the past week and she's received her silicon dressings that are being used to prevent abrasion to the skin caused by her laryngostomy tube strap. 08/09/[address] Cornell. 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 Otherwise the right neck ulcers remain relatively stable and have minimal drainage over the past week. 08/02/[address] Cornell. The patient reports minimal discomfort associated with the chronic neck soft tissue radiation ulcers and her caregiver feels they've improved considerably over the past week while applying gentamicin ointment and using the silicon dressing to prevent abrasion from the trach strap. 07/26/[address] Cornell. The patient reports only moderate discomfort and minimal drainage associate with her remaining soft tissue radiation ulcers of the neck. 07/19/[address] Cornell. The patient's caregiver reports increased drainage on the dressings covering the neck soft tissue radiation ulcers and the patient reports some increased pain at the ulcer sites. They're also running out of the silicon dressings they' ve been using to protect the ulcers from abrasion caused by the overlying trach strap. She does not report any problems regarding the chronic left upper arm wound. 07/12/[address] Cornell. The patient does not report increased pain or drainage associated with her chronic neck soft tissue radiation ulcers and she's been using her silicon wound dressings daily. She feels her ulcers are much less painful since changing to the new dressings. 07/05/[address] Cornell. The patient reports a significant improvement in pain regarding her chronic neck soft tissue radiation ulcers since starting to use adherent silicon dressings to prevent abrasion caused by her trach strap. She does not report significant drainage from the ulcers. 06/22/[address] Cornell. The patient continues to report persistent pain associated with the chronic neck soft tissue radiation ulcers. 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 06/12/15 Seen by Finn Felton PA-C. The patient reports continued pain from her radiation neck ulcers. 06/05/15 Seen by Finn Felton PA-C. The patient reports continued pain and stable drainage from her neck radiation ulcers. She continues to use her favored dressings instead of ones that we have recommended for her. 05/21/15 Seen by Finn Felton PA-C. The patient reports continued pain and no change in drainage from her neck radiation ulcers and her arm and chest wounds. 05/08/15 Seen by Finn Felton PA-C. The patient reports continued pain and stable drainage from her neck radiation ulcers. Flores from [facility] [employer] attended part of the appointment to try fitting her for the laryngectomy collar protective prosthetic. 04/25/[address] Cornell. The patient continues to report significant pain associated with the chronic soft tissue radiation neck ulcers and the staff report at least moderate drainage on her dressings today. She does not report fevers or feeling unwell otherwise. 04/11/[address] Cornell. The patient been on levofloxacin and doxycycline for Pseudomonas and MRSA positive wounds cultures taken from her soft tissue radiation ulcers over the neck and around the laryngostomy wound. She still reports pain associated with the ulcers but indicates it's not as bad as last week. 04/05/[address] Cornell. The patient reports persistent pain associated with her neck soft tissue radiation ulcers. She's currently on levofloxacin and doxycycline for the Pseudomonas and MRSA positive culture taken at the last visit and she does not report adverse side effects. 03/28/2015 Seen by Finn Felton PA-C. The patient continues to complain of neck ulcer pain. In addition she again asks today why are they hurting. She has not been compliant with any of our attempts at specialized laryngectomy collar padding or dressings. 03/21/2015 Seen by Finn Felton PA-C. The patient returns with stable 6-7/10 constant pain from the radiation ulcers on her neck. She continues on Doxycycline and has finished her course of prednisone for a URI as prescribed by her PCP. He has recently not been able to keep the Radiagel sheets attached to her neck or tracheostomy collar and has gone back to using Xeroform gauze. 02/19/15 Seen by Finn Felton PA-C. The patient returns for evaluation of her radiation ulcers of the neck. She reports continued pain and her most recent dressings that we have trialed did not stay in place. 02/12/15 Seen by Finn Felton PA-C. The patient reports continued neck pain from her radiation ulcers as well as tightness in her surrounding neck tissues. She reports the pain is exacerbated by rubbing of her tracheostomy tube macias and by any palpation or instrumentation. Drainage has been minimal. 02/05/15 Seen by Finn Felton PA-C. The patient presents today with a new wound on her left lateral neck, on her irradiated tissue. This wound is 01/24/[address] Cornell. The patient reports a cough and feeling unwell the past few days. She continues on doxycycline and levofloxcacin for the recent MRSA and Pseudomonas positive wound culture. Of note, she arrives today with gauze dressings over her next ulcers as opposed to foam which has been recommended. 01/17/[address] Cornell. The patient's been started on doxycycline and levofloxacin for her wound culture from the last visit that grew MRSA again plus Pseudomonas which is new. She reports having a cough and low grade fever also and the staff report the left neck ulcer dressings as being quite wet. 01/12/[address] Cornell. The patient indicates the neck ulcer pain is a 6-7/ 10 today and states she's been adhering to our dressing change recommendations. She's not currently on antibiotics and does not report fever although she feels a bit under the weather. 01/05/[address] Cornell. The patient complains of 4/10 pain at the site of her remaining chronic neck ulcers. 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 12/18/14 Seen by Finn Felton PA-C. The patient continues to have difficulty securing her dressings and keeping them in place under her tracheostomy collar. She is planning on going deer hunting and will be away from our clinic for over 1 week. 12/12/[address] Cornell. The patient complains of significant right ear pain. Her left neck ulcer culture from the last visit grew MRSA and she's not currently on antibiotics at this time. Of note, the foam that we placed around the tracheostomy tube to prevent abrasion was not in place on the patient's arrival today. 12/08/[address] Cornell. The patient complains of some persistent pain at the site of the left neck ulcer but does not report fever or increased drainage. Of note, she's not changed her dressing since her last visit 3 days ago. 11/28/14 Seen by Finn Felton PA-C. The patient again reports right ear pain without drainage or disturbance in hearing. The dressing on her head wound has stayed in place and her neck dressings lasted less than 24hrs in place. Scalp wound pain has decreased. 11/28/14 Seen by Finn Felton PA-C. The patient has seen her PCP for her right ear issues and he has prescribed her Cefuroxime, which she is currently taking. She has kept her scalp dressing in place and reports continued neck pain and a new neck wound on the left. 11/14/14 Seen by Finn Felton PA-C. The patient's right sided neck wound and scalp wound are much improved today after she has been keeping her head wound covered and has loosened her trach collar. Both wounds are reportedly less painful than before. 11/07/14 Doc Z Surg: patient returns for follow-up of the radiation injury and mechanical abrasions wounds of the neck laterally and anteriorly adjacent to the tracheostomy straps which appear to have been chafing on this sensitive skin in the field of radiation. The padded protective dressing has been utilized since her last visit and shows marked improvement in all of the wounds. Also the scalp abrasions which appear to be fingernail scrapings have also improved markedly after the patient educated to avoid fingernails scratching on the scalp area. Question was raised regarding the possibly poor fitting tracheostomy tube but this appears normal and not problematic to my examination. At present I do not see any need for ENT reevaluation of the [id number] tracheostomy site. 10/26/[address] Cornell. The patient complains of recurrent right ear pain that's constant over the past week but does not report fever, sweats, or drainage from the ear. Her wound cultres from the scalp and neck ulcers grew MRSA on 10/04/14. She continues to report pain at these sites and has been unable to maintain dressings as recommended due to discomfort and the fact the scalp dressing falls off. 10/12/14 Seen by Finn Felton PA-C. The patient reports ear pain after completing HBOT. Her wounds still feel tight around her neck but are otherwise stable and more comfortable with her new foam neck dressings. 10/04/[address] Cornell. The patient feels the pain associated with her neck and scalp ulcers is improved and only noticeable intermittently. She arrived today with foam dressings over the neck ulcers which we started utilizing last week to minimize trauma from the tracheostomy tube harness to the skin and ulcers beneath. 09/27/[address] Cornell. The patient feels her neck ulcers and scalp wounds are less painful however the staff report that the dressing plan we implemented to help prevent abrasion to the neck ulcers does not seem to have been continued after the patient left clinic last week. She's now off of antibiotics and does not report increased drainage. 09/20/[address] Cornell. The patient feels her scalp and neck ulcer pain are improving since she's been on IV daptomycin. She also had a doppler study yesterday that rule out a left arm DVT however she still complains of swelling and discomfort in the arm. 09/06/[address] Cornell. The patient complains of continued pain and drainage associated with her scalp and neck ulcers. She's no longer on antibiotics and recently grew Enterococcus and resistant coag negative Staph from the ulcer sites respectively. 08/30/[address] Cornell. The patient reports continued pain at the neck and scalp ulcers and her scalp wound grew Enterococcus on 08/23/14. She's taking clindamycin and completed a course of azithromycin that were started in the ER due to a recurrent URI. 08/16/14 Seen by Finn Felton PA-C. The patient continues to take Keflex for her scalp wound bacterial infection. She reports it is now more painful and draining more than before. Her neck radiation wounds continue to feel tight. 08/14/14 Seen by Finn Felton PA-C. The patient complains of right ear pain and fullness which started today. She reports feeling like she might have a cold coming on. 08/09/[address] Cornell. The patient complains of persistent pain at the site of the neck ulcers and worsening pain at the scalp ulcer. She's taking doxycycline based on the most recent MSSA wound culture sensitivities from the neck ulcer and does not report any adverse side effects. 07/08/[address] Cornell. The patient feels the neck ulcer pain is improving and she's completed her course of doxycycline that was started last week. She still complains of significant pain a the site of the scalp lesion however. Her wound culture from 07/28 grew MSSA sensitive to doxycycline. 07/26/[address] Cornell. The patient complains of increased pain at the neck ulcers as well as the scalp lesion. She does not report increased drainage, fever, cough, or chills and states her previously reported right ear pain has improved. 07/14/[address] Cornell. The patient reports right ear pain with a sore throat but no fevers or cough. 07/11/14 Seen by Finn Felton PA-C. The patient reports less scalp pain and no drainage from her scalp wound. She continues to report a pulling type pain in and around her neck wounds. 07/04/14 Seen by Finn Felton PA-C. The patient has cut her fingernails short and reports that her scalp wound is hurting and itching less. She reports a new wound over an old abdominal scar today. It has been present for 5 days and she is not sure how it occurred. 06/20/14 The patient feels her neck ulcer pain as well as the scalp lesion pain have improved since starting doxycycline. She continues to apply hydrogel and Xeroform to the neck ulcers to keep them moist. Otherwise she's tolerating HBOT without difficulty and has made significant progress in the healing of the neck ulcers throughout this most recent series of dives. 06/13/14 The patient indicates that her neck ulcers 'feel tight' and she still has some discomfort at the scalp lesions. She also complains of significant pruritis in the area of the scalp lesions. She's been taking taking doxycycline for the past week to treat a MRSA positive culture of the scalp ulcer. 06/06/14 The patient reports continued pain from all of her wounds and frustration that her scalp wound has not healed despite her not scratching it. 05/31/14 The patient's here for HBOT today but complains of new left facial pain over the angle of the mandible that started yesterday. She does not complain of ear pain or an dental or intraoral pain but has been treated in the hospital recently for recurrent pneumonia. She's also been reviewed in the past 3 months by her oncologist and reportedly is cancer free. 05/30/14 The patient does not report increased pain or drainage from her neck wounds nor scalp lesion. 05/18/14 The patient complains of significant pain at the left 3rd finger wound as well as her chronic scalp wound. Otherwise she does not report significant pain nor drainage from the neck wounds. 05/12/14 The patient does not report increased pain or drainage from her neck ulcers nor the wound on the scalp. 05/04/14 The patient reports increased pain at the left neck wound and apparently the barrier dressing slipped down and her guaze became adherent resulting in a skin tear upon removal. Otherwise she continues to complain of pain at both neck wounds and the scalp wound. 05/02/14 The patient was seen today in the HBOT treatment room for complaints of a productive cough. She was recently discharged from the hospital with a diagnosis of tracheobronchitis and is finishing a course of Levaquin. Cough is described as yellow and thick and is difficult to clear from her tracheostomy. 04/21/14 The patient complains of persistent ear pain in the right ear despite using antibiotic drops Rx'd by her ENT provider last week. She does not report drainage or fever. 04/18/14 The patient states her cough is improving and she's still on antibiotics from her recent admission for pneumonia. She does not report increased drainage or pain from the neck ulcers but states her right ear pain has returned. She was seen by ENT who felt the lesion in the external canal was traumatic and she was given an Rx for ear drops which she states she's been using. She also reports recurrence of the painful left scalp wound that was recently healed. 04/11/14 The patient complains of a cough productive of green sputum for the past few days that's particularly worse when lying flat. She indicates that she feels generally unwell and weak and is questioning whether she can tolerate HBOT today. 04/05/14 The patient continues to complain of right ear pain however does not report bleeding from the ear today. Of note, she was reviewed for this problem last week and a shallow ulcer in the right external ear canal was the only finding. 03/30/14 The patient reports continued 5/10 pain from her neck wound which is described as a constant, pulling type pain, which is exacerbated by flexing, extending or rotating her neck. 03/29/14 The patient completed her HBOT dive today and now complains of blood draining from the right ear. She does not report pain now nor during the dive today. 03/23/14 The patient reports increased pain from her medial neck wounds as well as from her scalp wound. The pain is described as a throbbing and sometimes pulling pain that is constant in nature and has no exacerbating factors, nor is it associated with any activity. She does not report fever, chills or increased wound drainage. Additionally the patient reports her [facility] doctors are considering a reconstructive surgical revision of her neck once her current wounds heal. She brings with her today a note from her [facility] doctors on a prescription pad, on which is written Please continue hyperbaric oxygen therapy. 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/14) Ear pain (right side; recurrent) Chronic ulcer (scalp; Enterococcus positive culture on 08/23/14; MRSA positive on 10/04/14) Complaints and Symptoms This information was obtained from the patient Patient complains of: General Notes: I have reviewed and concur with the Review of Systems and Past Family Social History documents completed by the clinician, I have reviewed and concur with the Wound Assessment document completed by the clinician Ear/Nose/Mouth/Throat: Ear Pain Integumentary (Hair/Skin/Nails): Open Sore Musculoskeletal: Deformities, Muscle Weakness Prior Wound History: Bleeding, Drainage, Erythema, Pain Patient denies complaints or symptoms related to: Cardiovascular (Central): Irregular heart beat Constitutional Symptoms (General Health): Chills, Fever, Marked Weight Change Ear/Nose/Mouth/Throat: Hearing Loss / Aid Gastrointestinal (GI): Nausea / Vomiting, Stomach/abdominal pain Hematologic/Lymphatic: Bleeding / Clotting Disorders, Bleeding Tendency Neurological: Loss of Protective Sensation Prior Wound History: Malodor Respiratory: Cough, Oxygen Use, Shortness of Breath OBJECTIVE Constitutional Vital signs reviewed and noted. Well developed, lucid, and in no acute distress. . Height/Length: 66 in (167.64 cm), Weight: 227.9 lbs (103.59 kgs), BMI: 36.8, Temperature: 97.9 ?F (36.61 ?C), Pulse: 71 bpm, Respiratory Rate: 18 breaths/min, Blood Pressure: 136/83 mmHg, Pulse Oximetry: 95 %. Ears, Nose, Mouth, and Throat: Grossly intact. Neck: Extensive scar tissue noted. Integumentary (Hair, Skin) Refer to appropriate clinician wound documentation for this visit; ulcer extends to subcutaneous fat layer. . Wound #36 Right, Proximal Neck is an acute Full Thickness Radiation Wound and has received a status of Not Healed. Subsequent wound encounter measurements are 3.4cm length x 0.5cm width x 0.1cm depth, with an area of 1.7 sq cm and a volume of 0.17 cubic cm. No tunneling has been noted. No sinus tract has been noted. No undermining has been noted. There is a small amount of seropurulent drainage noted which has no odor. The patient reports a wound pain of level 6/10. The wound margin is attached. Wound bed has No epithelialization, No eschar, Yes slough, Yes bright red, pink, firm granulation. The periwound skin texture is normal. The periwound skin exhibited: Moist, Erythema. The periwound skin did not exhibit: Dry/Scaly, Maceration, Atrophie Melissa, Cyanosis, Ecchymosis, Hemosiderosis, Pallor, Rubor. The temperature of the periwound skin is WNL. Periwound skin does not exhibit signs or symptoms of infection. Local Pulse is N /A. General Notes: satellite [id number] Psychiatric: Judgement and insight: Normal affect with normal thought pattern. Alert and oriented 3/3. Memory grossly intact.. Normal affect. Mood appropriate.. ASSESSMENT Active Problems ICD-10 (Encounter Diagnosis) S11.89XD - Other open wound of other specified part of neck, subsequent encounter (Encounter Diagnosis) L59.8 - Other specified disorders of the skin and subcutaneous tissue related to radiation (Encounter Diagnosis) L98.492 - Non-pressure chronic ulcer of skin of other sites with fat layer exposed PLAN Wound Orders: Wound #36 Right, Proximal Neck Cleanser Cleanse Wound: - With Normal saline or distilled water May Shower. - Keep dressing dry and intact. Dressings Primary dressing: - Aguacel AG to wound Cover and secure with: - Hydrocolloid. Change Dressing: - Every two days. Follow-Up Appointments Return Appointment: - - in one week Scribing Attestation I attest, as the nurse, that I scribed these orders for the physician. I've reviewed the clinician's documentation and agree with the evaluation and plan as written. Greater than 25 minutes were spent [id number] with the patient during this encounter and over 50% of that time was spent on education, counseling and coordination of care. We discussed new dressings and other strategies to avoid abrasion to her neck, which should help speed healing of her ulcers. Electronic Signature(s) Signed By: Date: Finn Felton 08/31/2017 22:45:03 Entered By: Finn Felton on 08/31/2017 22:12:38
== END ==
PROVIDERS: Visit Provider Physician Assistant
DX: S11.89XA Other open wound of other specified part of neck, initial encounter (principal); L59.8 Other specified disorders of the skin and subcutaneous tissue related to radiation
CPT/HCPCS: 99212

== ENCOUNTER → 2017-09-07 10:20 | Outpatient (CLI) | payer OTHER, MEDICAID, SELFPAY ==
--- NOTE | 2017-09-07 | OV.WND_ITS ---
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 Allergies Penicillins (Severity: Moderate, Reaction: rash and hives), Vicodin (Severity: Moderate, Reaction: Rash and hives), ibuprofen (Severity: Moderate, Reaction: Rash and hives), Gelusil Antacid and Anti-Gas (Severity: Moderate, Reaction: increase in stomach discomfort), Septra (Severity: Moderate, Reaction: GI upset), Flagyl (Severity: Moderate, Reaction: Rash), Benadryl (Reaction: Rash), ranitidine (Severity: Moderate, Reaction: SOB, dizzy) HPI This information was obtained from the patient 09/07/17. Seen by Dr. Cornell. 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 The staff also feels the ulcer's increased in size and she's no long on oral antibiotics that were prescribed recently for a Enterococcus positive wound culture. 08/31/17. Seen by Finn Felton PA-C. The patient reports pain associated with her chronic neck radiation ulcer. 08/24/17. Seen by Dr. Cornell. 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 She continues to apply topical gentamicin to the ulcer to treat the Enterococcus positive wound culture as recommended. 08/14/17. Seen by Dr. Cornell. The patient's been applying topical gentamicin daily to the soft tissue radiation neck ulcer to treat the recent Enterococcus positive wound culture and she's completed her course of levofloxacin. 08/07/17. Seen by Dr. Cornell. 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 She does not report increased pain nor drainage from the site however nor other acute issues today. 07/31/17. Seen by Dr. Cornell. 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 07/24/17. Seen by Dr. Cornell. 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 07/17/17. Seen by Dr. Cornell. 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 Of note, the patient also states she fell from her bed a few days ago resulting in bilateral black eyes. 07/10/2017. Seen by Dr. Cornell. 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 She does not report increased drainage however nor other acute issues. 07/03/17. Seen by Dr. Cornell. 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 06/19/17. Seen by Dr. Cornell. 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 06/09/17. Seen by Dr. Cornell. The patient reports some pain associated with the anterior neck right sided soft tissue radiation ulcer and continues on doxycycline and levofloxacin following a recent admission for a COPD exacerbation. She does not report increased drainage from the ulcer sites and is using Xeroform and Scar-away dressings as recommended. 06/01/17. Seen by Dr. Cornell. The patient was admitted to the hospital for a COPD exacerbation and is now on oral antibiotics following discharge. She reports some ear pain but otherwise no acute issues. Regarding her soft tissue radiation ulcers over the anterior neck she is now using the silicone dressings and Xeroform as recommended and does not report significant pain or drainage.Of note, these are complicated significantly by her tracheostomy tube and attached strap that tends to shear the irradiated skin causing ulcers. 05/25/17. Seen by Dr. Cornell. The patient reports pain associated with the chronic soft tissue radiation neck ulcers. She states her dressings are not on continuously and that she has been wearing her tracheostomy strap for extended periods at home despite our advice to not use it if possible. 05/18/17. Seen by Finn Felton PA-C. The patient reports continued pain from her soft tissue radiation ulcers of the neck. She has finished a once daily antibiotic for a URI but does not recall which antibiotic it was. 05/11/17. Seen by Finn Felton PA-C. The patient reports increased pain and increased drainage from her soft tissue radiation ulcers of the neck. 04/23/17. Similarly Dr. Cornell. The patient does not report increased pain nor drainage associated with the chronic neck soft tissue radiation ulcers since her last visit. 04/16/17. Seen by Finn Felton PA-C. The patient reports that the Radia-gel dressings did not stay in place and the tape used to secure them caused skin tears. 04/09/17. Seen by Finn Felton PA-C. The patient reports no increase in drainage from her radiation ulcers of the neck. 04/02/17. Seen by Finn Felton PA-C. The patient reports her usual amount of pain from her anterior neck ulcers. 03/26/17. Seen by Dr. Cornell. 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 She was discharged recently from [facility] following treatment for an acute URI and is now on levofloxacin. 03/19/17. Seen by Dr. Cornell. The patient does not report significant pain associated with chronic anterior neck soft tssue radiation ulcer since her last visit. 03/12/17. Seen by Dr. Cornell. The patient reports increased pain associated with the anterior neck soft tissue radiation ulcers. Of note, she is reusing her silicon dressings and washing them despite being advised not to do this in the past. She has very limited financial resources that is leading her to do this. 03/04/17. Seen by Dr. Cornell. 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 She continues on doxycycline for a cat bite at the right arm without reported adverse side effects and feels this is improving. There are also no new issues regarding his left neck nonpressure ulcer. 02/24/17. Seen by Dr. Cornell. 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 She was seen in the ER for this and had a CT performed that showed cellulitis but no associated abscess. She was started on levofloxacin at that visit. Also, she was to start doxycycline following her last wound care visit for a cat bite of the right arm however states the antibiotic was not covered by insurance so she has not started this. Otherwise, she does not report fevers or feeling unwell in general. 02/17/17. Seen by Dr. Cornell. The patient reports continued pain associated with the anterior and left lateral neck soft tissue radiation ulcers since her last visit. She is not currently on antibiotics. She also reports a cat bite of the right arm that's been bleeding and painful for the past 2 days since it occurred. 02/10/17. Seen by Finn Felton PA-C. The patient reports a new ulcer on her left neck , in the irradiated area from her previous radiation treatment. 01/16/17. Seen by Dr. Cornell. The patient reports some moderate pain and drainage associated with her chronic neck soft tissue radiation ulcers since her last visit. 01/09/17. Seen by Dr. Cornell. The patient does not report significant pain or increased drainage associated with her chronic neck soft tissue radiation ulcers since her last visit. Her recent wound culture grew ocampo-sensitive Staph aureus and she's applying topical gentamicin as recommended. 01/01/17. Seen by Finn Felton PA-C. The patient reports increased pain and drainage from her chronic neck ulcers which overly an irradiated field. 12/17/16. Seen by Dr. Cornell. The patient does not report significant pain or increased drainage associated with her chronic neck soft tissue radiation ulcers since her last visit. She'll be leaving for a hunting trip and will be gone until December 31. 12/11/16. Seen by Dr. Cornell. The patient does not report significant pain nor drainage associated with chronic neck soft tissue radiation ulcers since her last visit. She completed her course of levofloxacin in the interim and also states that she will not be undergoing reconstructive surgery following discussion with her surgeons. 11/27/16. Seen by Dr. Cornell. The patient reports increased pain and some bloody drainage associated with the anterior neck soft tissue radiation ulcer. She also states that she's had a persistent and productive cough over the past few days. Her most recent wound culture grew MSSA and the prior grew a pansensitive Pseudomonas organism. Staff also report a new ulcer over the left anterior neck. 11/20/16. Seen by Finn Felton PA-C. The patient came in urgently today to be evaluated for increased bleeding and drainage from her neck ulcers which overly radiation damaged tissue. 11/14/16. Seen by Dr. Cornell. The patient continues to apply topical gentamicin to the chronic soft tissue radiation neck ulcers to treat the recent Pseudomonas positive wound culture. She does not report significant pain or increased drainage from these sites. She has an appointment with another surgeon on November 21 to further discuss reconstructive options regarding the narrowing of her stoma and significant soft tissue contractures around the anterior neck. 11/07/16. Seen by Dr. Cornell. The patient reports a new ulcer over the left side of her neck at an area of scarring associated with her chronic soft tissue radiation injury of the neck. She does not report significant pain nor drainage at the site nor from the chronic anterior nonpressure ulcer. Her last culture at that site grew Pseudomonas that is intermediately. 10/31/16. Seen by Dr. Cornell. The patient and her caregiver reports increased drainage associated with the chronic and progressive right anterior neck soft tissue radiation ulcer over the past week. They're having issues in terms of dressing changes and managing increased drainage and the patient also has a persistent and productive cough with mucus being expelled from the tracheostomy site. Of note, the caregiver states that she has been attempting to liaise with Dr. Lopez's office, ENT surgery at , regarding a follow up appointment to discuss reconstructive surgery in hopes of addressing the chronic skin contractures that are contributing heavily to the refractory nature of this neck ulcer. 10/23/16. Seen by Finn Felton PA-C. The patient reports no increase in pain or drainage from her neck ulcer. Her two ulcers have bridged into one ulcer. She has no new news regarding a surgical revision. 10/10/16. Seen by Dr. Cornell.The patient does not report increased pain or drainage associated with the chronic soft tissue neck radiation ulcers since her last visit. Her culture from the last visit grew diphtheroids and she's been applying topical gentamicin as recommended. According to her caregiver they have still not heard back regarding an appointment with her surgeon who is planning a revision for the stenosed tracheostomy site noting the tube is contributing significantly to the ulcer formation. She also does not report significant pain or drainage associated with the superficial abdominal abscess noted at her last visit. 10/03/16. Seen by Dr. Cornell. The patient continues to report some pain associated with the chronic neck soft tissue radiation ulcers. The patient caregiver feels the proximal ulcer continues to increase in size. They have not yet scheduled an appointment for revision surgery for the tracheostomy as was discussed last week. 09/26/16. Seen by Dr. Cornell. The patient continues to report some pain as well as persistent drainage associated with the chronic right neck soft-tissue radiation ulcers. 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 He is planning for a revision surgery to try to address this issue in the near future. 09/19/16. Seen by Dr. Cornell. The patient and her brother continue to report some pain associated with the chronic neck nonpressure ulcers but no increased drainage and they've been changing the silicon dressings as recommended to protect the soft-tissue radiation injured skin and protect against abrasion caused by the tracheosteomy tube. Of note, the patient feels as though the stoma may gradually be tightening as she continues to have some difficulty replacing the tube after taking it out. She also reports some persistent productive coughing and nasal drainage in the evenings and through the night and feels it may be related to allergies. 09/01/16. Seen by Dr. Cornell. The patient's brother who's present today reports that the patient's silicon dressings are being changed less frequently than recommended and in washing them the adherence is deteriorating which may be leading to loss of function in terms of protecting the underlying irradiated skin and neck ulcers. She does not report increased drainage or pain associated with the neck ulcers today. 08/28/16. Seen by Dr. Cornell. The patient removed her tracheostomy tube in clinic today and is having difficulty replacing it. She's a bit anxious at the time of exam but is breathing without distress or audible stridor. Regarding her chronic neck soft tissue radiation ulcers, there's no new issues to report and she's been dressing them as recommended. 08/21/16. Seen by Dr. Cornell. The patient reports continued pain and drainage associated with the chronic soft tissue radiation ulcer along the margin of her tracheostomy stoma. She and her caregiver are dressing it as recommended and she's completed her course of antibiotics those treating the recently cultured MRSA. 08/15/16. Seen by Dr. Cornell. The patient reports increased pain associated with the chronic soft tissue radiation neck ulcers since her last visit and her caregiver reports some thick overlying drainage around the mid-line ulcer adjacent to the tracheostomy stoma. She does not report fevers or feeling unwell however and has been applying topical antibiotic to the ulcers as recommended. 08/08/16. Seen by Dr. Cornell. The patient reports continued pain associated with the chronic anterior neck non-pressure ulcers and they've been applying topical gentamicin to treat the recurrent MRSA positive wound cutlures. She's also wearing her silicon dressing as recommended to help protect the soft tissue radiation injury of the skin from abrasion caused by her tracheostomy tube strap. 08/01/16. Seen by Dr. Cornell. The patient's caregiver reports improvement in terms of pain and drainage associated with the chronic neck ulcers. They've been applying topical gentamicin as recommended for the chronic wound infections. 07/23/16. Seen by Dr. Cornell. The patient's caregiver reports improvement in terms of pain and drainage associated with the chronic neck ulcers overlying the soft tissue radiation injury that follow treatment for her laryngeal cancer years ago. They've been applying topical gentamicin as recommended for the chronic wound infections. 07/09/16. Seen by Finn Felton PA-C. The patient reports she has run out of the silicone strips that were fabricated by [employer] to reduce abrasion from her laryngostomy collar. She is using scar fade strips which are not staying in place. Her neck ulcers continue to be present under the collar. 06/25/16. Seen by Dr. Cornell. The patient's caregiver reports improvement in terms of pain and drainage associated with the chronic neck ulcers. They've been applying topical gentamicin as recommended for the chronic wound infections. 06/11/16. Seen by Dr. Cornell. The patient reports improvement in terms of pain and drainage associated with the chronic neck ulcers. She completed her course of ciprofloxacin which was treating the recurrent ulcer infections and she continues to apply topical gentamicin to the ulcer beds. 06/04/16. Seen by Dr. Cornell. The patient continues to report some pain and minimal drainage associated with the chronic neck ulcers are complicated by underlying soft tissue radiation injury. She was just discharged from the hospital for tracheobronchitis and continues on ciprofloxacin with cultures that have grown Pseudomonas, Staph, and Haemophilus. She does not report adverse side effects from antibiotics nor fevers or feeling unwell today although she continues to have a mild cough. 05/26/16. Seen by Finn Felton PA-C. The patient reports no increase in drainage or pain from her neck ulcers. 05/16/16. Seen by Dr. Cornell. The patient does not report significant pain nor drainage associated with the recurrent neck soft tissue radiation ulcers since her last visit. She's been applying topical gentamicin as recommended and wearing the silicon dressings to protect from the trach tube strap rubbing on the irradiated skin.Also, her wound culture from the last visit grew MSSA. 05/09/16. Seen by Dr. Cornell. The patient feels her recurrent soft tissue radiation ulcers over the mid and left aspects of her neck are painful and draining for the past week. She reports wearing her silicon dressing but does not have it in place all of the time and has been leaving her tracheostomy tube strap off for extended periods during the day to help prevent abrasion. She's been applying topical gentamicin to the ulcers but is not currently on systemic antibiotics. 04/29/16. Seen by Finn Felton PA-C. The patient reports continued compliance with her silicone skin protector that she wears under her collar. She reports improvement in her neck ulcers, however she ran out of supplies a few days ago and now reports worsening of the ulcers. 04/11/16. Seen by Dr. Cornell. The patient reports decreased pain and drainage associated with the chronic neck non-pressure ulcers over the patient week and she's applying topical gentamicin to treat the chronic MRSA wound infection as recommended. She's also using silicon dressings to help better protect the soft tissue radiation injury to the neck which is heavily implicated in the recurrent and refractory nature of the ulcers. 04/04/16. Seen by Dr. Cornell. The patient reports an increase in the size and pain associated with the left neck non-pressure ulcer since her last visit. She's applying gentamicin ointment to all of the ulcers a recommended and using the silicon dressings to help prevent abrasion caused by the trach tube strap. 03/28/16. Seen by Dr. Cornell. The patient reports decreased pain and drainage associated with the chronic neck non-pressure ulcers over the patient week and she's restarted use of the silicon dressings again to protect the irradiated skin that's been breaking down under the trach strap and contributing to the recurrent and refractory nature of the ulcers. 03/21/16. Seen by Dr. Cornell. The patient reports decreased pain and drainage associated with the chronic neck non-pressure ulcers over the patient week and she continues applying topical gentamicin to treat the chronic MRSA wound infection. 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 03/13/15. Seen by Dr. Cornell. The patient reports decreased pain and drainage associated with the chronic neck non-pressure ulcers over the patient week since starting on doxycycline for a recurrent MRSA wound infection. She's now using silicon dressings to protect the irradiated skin over the neck that resulted from radiation therapy treating laryngeal cancer. She does not report adverse effects of the doxycycline and is also applying topical gentamicin daily to the ulcer sites. 03/06/16. Seen by Dr. Cornell. The patient reports persistent pain associated with the recurrent neck non-pressure ulcers and staff report they're larger and are draining based on the dressings. 02/28/16. Seen by Dr. Cornell. The patient returns with new ulcers overlying her soft tissue radiation neck injury that resulted following treatment for laryngeal cancer. She states she ran out of the silicon dressings she uses to protect the area from her trach tube strap and after this the ulcers appeared and are quite painful. Their draining however she does not report fevers. 11/28/15. Seen by Dr. Cornell. 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 11/21/15. Seen by Dr. Cornell. The patient reports some minimal pain associated with the chronic neck soft tissue radiation ulcer since her last visit. She also complains of right ear pain and has asked me to have look in the ear as it feels like there may be a foreign body present. She also reports a mild cough, sore throat, and feeling a bit unwell in general. 11/14/15. Seen by Dr. Cornell. The patient reports moderate pain but no significant drainage associated with the left neck soft tissue radiation ulcer since her last visit. 10/31/15. Seen by Dr. Cornell. The patient reports some pain associated with the left neck soft tissue radiation ulcer but no increased drainage from either ulcer nor pain associated with the middle soft tissue radiation ulcer. Her caregiver notes that they're running out of the silicon dressings and they've become nearly prohibitively expensive. 10/12/15 Seen by Finn Felton PA-C. The patient returns to our clinic after reconstructive scar- revision surgery on her radiation damaged neck. She has wounds that have been left to close by secondary intention and are slow to heal. In addition, her silicone strips that help hold her laringostomy collar in place continue to work well for her. 09/07/[address] Cornell. The patient presents with a new rash over the right neck overlying the soft tissue radiation injury. Of note, her very chronic wounds at the same site were recently healed. She dose not report pain, drainage, or skin breakdown associated with the rash. 08/24/[address] Cornell. The patient does not report pain or drainage associated with the chronic neck soft tissue radiation ulcers over the past few days and she's using the silicon dressings to cover the ulcers. 08/15/[address] Cornell. The patient nor her caregiver report significant pain or drainage from either the left or right neck soft tissue radiation ulcers over the past week and she's received her silicon dressings that are being used to prevent abrasion to the skin caused by her laryngostomy tube strap. 08/09/[address] Cornell. 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 Otherwise the right neck ulcers remain relatively stable and have minimal drainage over the past week. 08/02/[address] Cornell. The patient reports minimal discomfort associated with the chronic neck soft tissue radiation ulcers and her caregiver feels they've improved considerably over the past week while applying gentamicin ointment and using the silicon dressing to prevent abrasion from the trach strap. 07/26/[address] Cornell. The patient reports only moderate discomfort and minimal drainage associate with her remaining soft tissue radiation ulcers of the neck. 07/19/[address] Cornell. The patient's caregiver reports increased drainage on the dressings covering the neck soft tissue radiation ulcers and the patient reports some increased pain at the ulcer sites. They're also running out of the silicon dressings they' ve been using to protect the ulcers from abrasion caused by the overlying trach strap. She does not report any problems regarding the chronic left upper arm wound. 07/12/[address] Cornell. The patient does not report increased pain or drainage associated with her chronic neck soft tissue radiation ulcers and she's been using her silicon wound dressings daily. She feels her ulcers are much less painful since changing to the new dressings. 07/05/[address] Cornell. The patient reports a significant improvement in pain regarding her chronic neck soft tissue radiation ulcers since starting to use adherent silicon dressings to prevent abrasion caused by her trach strap. She does not report significant drainage from the ulcers. 06/22/[address] Cornell. The patient continues to report persistent pain associated with the chronic neck soft tissue radiation ulcers. 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 06/12/15 Seen by Finn Felton PA-C. The patient reports continued pain from her radiation neck ulcers. 06/05/15 Seen by Finn Felton PA-C. The patient reports continued pain and stable drainage from her neck radiation ulcers. She continues to use her favored dressings instead of ones that we have recommended for her. 05/21/15 Seen by Finn Felton PA-C. The patient reports continued pain and no change in drainage from her neck radiation ulcers and her arm and chest wounds. 05/08/15 Seen by Finn Felton PA-C. The patient reports continued pain and stable drainage from her neck radiation ulcers. Flores from [facility] attended part of the appointment to try fitting her for the laryngectomy collar protective prosthetic. 04/25/[address] Cornell. The patient continues to report significant pain associated with the chronic soft tissue radiation neck ulcers and the staff report at least moderate drainage on her dressings today. She does not report fevers or feeling unwell otherwise. 04/11/[address] Cornell. The patient been on levofloxacin and doxycycline for Pseudomonas and MRSA positive wounds cultures taken from her soft tissue radiation ulcers over the neck and around the laryngostomy wound. She still reports pain associated with the ulcers but indicates it's not as bad as last week. 04/05/[address] Cornell. The patient reports persistent pain associated with her neck soft tissue radiation ulcers. She's currently on levofloxacin and doxycycline for the Pseudomonas and MRSA positive culture taken at the last visit and she does not report adverse side effects. 03/28/2015 Seen by Finn Felton PA-C. The patient continues to complain of neck ulcer pain. In addition she again asks today why are they hurting. She has not been compliant with any of our attempts at specialized laryngectomy collar padding or dressings. 03/21/2015 Seen by Finn Felton PA-C. The patient returns with stable 6-7/10 constant pain from the radiation ulcers on her neck. She continues on Doxycycline and has finished her course of prednisone for a URI as prescribed by her PCP. He has recently not been able to keep the Radiagel sheets attached to her neck or tracheostomy collar and has gone back to using Xeroform gauze. 02/19/15 Seen by Finn Felton PA-C. The patient returns for evaluation of her radiation ulcers of the neck. She reports continued pain and her most recent dressings that we have trialed did not stay in place. 02/12/15 Seen by Finn Felton PA-C. The patient reports continued neck pain from her radiation ulcers as well as tightness in her surrounding neck tissues. She reports the pain is exacerbated by rubbing of her tracheostomy tube macias and by any palpation or instrumentation. Drainage has been minimal. 02/05/15 Seen by Finn Felton PA-C. The patient presents today with a new wound on her left lateral neck, on her irradiated tissue. This wound is 01/24/[address] Cornell. The patient reports a cough and feeling unwell the past few days. She continues on doxycycline and levofloxcacin for the recent MRSA and Pseudomonas positive wound culture. Of note, she arrives today with gauze dressings over her next ulcers as opposed to foam which has been recommended. 01/17/[address] Cornell. The patient's been started on doxycycline and levofloxacin for her wound culture from the last visit that grew MRSA again plus Pseudomonas which is new. She reports having a cough and low grade fever also and the staff report the left neck ulcer dressings as being quite wet. 01/12/[address] Cornell. The patient indicates the neck ulcer pain is a 6-7/ 10 today and states she's been adhering to our dressing change recommendations. She's not currently on antibiotics and does not report fever although she feels a bit under the weather. 01/05/[address] Cornell. The patient complains of 4/10 pain at the site of her remaining chronic neck ulcers. 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 12/18/14 Seen by Finn Felton PA-C. The patient continues to have difficulty securing her dressings and keeping them in place under her tracheostomy collar. She is planning on going deer hunting and will be away from our clinic for over 1 week. 12/12/[address] Cornell. The patient complains of significant right ear pain. Her left neck ulcer culture from the last visit grew MRSA and she's not currently on antibiotics at this time. Of note, the foam that we placed around the tracheostomy tube to prevent abrasion was not in place on the patient's arrival today. 12/08/[address] Cornell. The patient complains of some persistent pain at the site of the left neck ulcer but does not report fever or increased drainage. Of note, she's not changed her dressing since her last visit 3 days ago. 11/28/14 Seen by Finn Felton PA-C. The patient again reports right ear pain without drainage or disturbance in hearing. The dressing on her head wound has stayed in place and her neck dressings lasted less than 24hrs in place. Scalp wound pain has decreased. 11/28/14 Seen by Finn Felton PA-C. The patient has seen her PCP for her right ear issues and he has prescribed her Cefuroxime, which she is currently taking. She has kept her scalp dressing in place and reports continued neck pain and a new neck wound on the left. 11/14/14 Seen by Finn Felton PA-C. The patient's right sided neck wound and scalp wound are much improved today after she has been keeping her head wound covered and has loosened her trach collar. Both wounds are reportedly less painful than before. 11/07/14 Doc Z Surg: patient returns for follow-up of the radiation injury and mechanical abrasions wounds of the neck laterally and anteriorly adjacent to the tracheostomy straps which appear to have been chafing on this sensitive skin in the field of radiation. The padded protective dressing has been utilized since her last visit and shows marked improvement in all of the wounds. Also the scalp abrasions which appear to be fingernail scrapings have also improved markedly after the patient educated to avoid fingernails scratching on the scalp area. Question was raised regarding the possibly poor fitting tracheostomy tube but this appears normal and not problematic to my examination. At present I do not see any need for ENT reevaluation of the [id number] tracheostomy site. 10/26/[address] Cornell. The patient complains of recurrent right ear pain that's constant over the past week but does not report fever, sweats, or drainage from the ear. Her wound cultres from the scalp and neck ulcers grew MRSA on 10/04/14. She continues to report pain at these sites and has been unable to maintain dressings as recommended due to discomfort and the fact the scalp dressing falls off. 10/12/14 Seen by Finn Felton PA-C. The patient reports ear pain after completing HBOT. Her wounds still feel tight around her neck but are otherwise stable and more comfortable with her new foam neck dressings. 10/04/[address] Cornell. The patient feels the pain associated with her neck and scalp ulcers is improved and only noticeable intermittently. She arrived today with foam dressings over the neck ulcers which we started utilizing last week to minimize trauma from the tracheostomy tube harness to the skin and ulcers beneath. 09/27/[address] Cornell. The patient feels her neck ulcers and scalp wounds are less painful however the staff report that the dressing plan we implemented to help prevent abrasion to the neck ulcers does not seem to have been continued after the patient left clinic last week. She's now off of antibiotics and does not report increased drainage. 09/20/[address] Cornell. The patient feels her scalp and neck ulcer pain are improving since she's been on IV daptomycin. She also had a doppler study yesterday that rule out a left arm DVT however she still complains of swelling and discomfort in the arm. 09/06/[address] Cornell. The patient complains of continued pain and drainage associated with her scalp and neck ulcers. She's no longer on antibiotics and recently grew Enterococcus and resistant coag negative Staph from the ulcer sites respectively. 08/30/[address] Cornell. The patient reports continued pain at the neck and scalp ulcers and her scalp wound grew Enterococcus on 08/23/14. She's taking clindamycin and completed a course of azithromycin that were started in the ER due to a recurrent URI. 08/16/14 Seen by Finn Felton PA-C. The patient continues to take Keflex for her scalp wound bacterial infection. She reports it is now more painful and draining more than before. Her neck radiation wounds continue to feel tight. 08/14/14 Seen by Finn Felton PA-C. The patient complains of right ear pain and fullness which started today. She reports feeling like she might have a cold coming on. 08/09/[address] Cornell. The patient complains of persistent pain at the site of the neck ulcers and worsening pain at the scalp ulcer. She's taking doxycycline based on the most recent MSSA wound culture sensitivities from the neck ulcer and does not report any adverse side effects. 07/08/[address] Cornell. The patient feels the neck ulcer pain is improving and she's completed her course of doxycycline that was started last week. She still complains of significant pain a the site of the scalp lesion however. Her wound culture from 07/28 grew MSSA sensitive to doxycycline. 07/26/[address] Cornell. The patient complains of increased pain at the neck ulcers as well as the scalp lesion. She does not report increased drainage, fever, cough, or chills and states her previously reported right ear pain has improved. 07/14/[address] Cornell. The patient reports right ear pain with a sore throat but no fevers or cough. 07/11/14 Seen by Finn Felton PA-C. The patient reports less scalp pain and no drainage from her scalp wound. She continues to report a pulling type pain in and around her neck wounds. 07/04/14 Seen by Finn Felton PA-C. The patient has cut her fingernails short and reports that her scalp wound is hurting and itching less. She reports a new wound over an old abdominal scar today. It has been present for 5 days and she is not sure how it occurred. 06/20/14 The patient feels her neck ulcer pain as well as the scalp lesion pain have improved since starting doxycycline. She continues to apply hydrogel and Xeroform to the neck ulcers to keep them moist. Otherwise she's tolerating HBOT without difficulty and has made significant progress in the healing of the neck ulcers throughout this most recent series of dives. 06/13/14 The patient indicates that her neck ulcers 'feel tight' and she still has some discomfort at the scalp lesions. She also complains of significant pruritis in the area of the scalp lesions. She's been taking taking doxycycline for the past week to treat a MRSA positive culture of the scalp ulcer. 06/06/14 The patient reports continued pain from all of her wounds and frustration that her scalp wound has not healed despite her not scratching it. 05/31/14 The patient's here for HBOT today but complains of new left facial pain over the angle of the mandible that started yesterday. She does not complain of ear pain or an dental or intraoral pain but has been treated in the hospital recently for recurrent pneumonia. She's also been reviewed in the past 3 months by her oncologist and reportedly is cancer free. 05/30/14 The patient does not report increased pain or drainage from her neck wounds nor scalp lesion. 05/18/14 The patient complains of significant pain at the left 3rd finger wound as well as her chronic scalp wound. Otherwise she does not report significant pain nor drainage from the neck wounds. 05/12/14 The patient does not report increased pain or drainage from her neck ulcers nor the wound on the scalp. 05/04/14 The patient reports increased pain at the left neck wound and apparently the barrier dressing slipped down and her guaze became adherent resulting in a skin tear upon removal. Otherwise she continues to complain of pain at both neck wounds and the scalp wound. 05/02/14 The patient was seen today in the HBOT treatment room for complaints of a productive cough. She was recently discharged from the hospital with a diagnosis of tracheobronchitis and is finishing a course of Levaquin. Cough is described as yellow and thick and is difficult to clear from her tracheostomy. 04/21/14 The patient complains of persistent ear pain in the right ear despite using antibiotic drops Rx'd by her ENT provider last week. She does not report drainage or fever. 04/18/14 The patient states her cough is improving and she's still on antibiotics from her recent admission for pneumonia. She does not report increased drainage or pain from the neck ulcers but states her right ear pain has returned. She was seen by ENT who felt the lesion in the external canal was traumatic and she was given an Rx for ear drops which she states she's been using. She also reports recurrence of the painful left scalp wound that was recently healed. 04/11/14 The patient complains of a cough productive of green sputum for the past few days that's particularly worse when lying flat. She indicates that she feels generally unwell and weak and is questioning whether she can tolerate HBOT today. 04/05/14 The patient continues to complain of right ear pain however does not report bleeding from the ear today. Of note, she was reviewed for this problem last week and a shallow ulcer in the right external ear canal was the only finding. 03/30/14 The patient reports continued 5/10 pain from her neck wound which is described as a constant, pulling type pain, which is exacerbated by flexing, extending or rotating her neck. 03/29/14 The patient completed her HBOT dive today and now complains of blood draining from the right ear. She does not report pain now nor during the dive today. 03/23/14 The patient reports increased pain from her medial neck wounds as well as from her scalp wound. The pain is described as a throbbing and sometimes pulling pain that is constant in nature and has no exacerbating factors, nor is it associated with any activity. She does not report fever, chills or increased wound drainage. Additionally the patient reports her [facility] doctors are considering a reconstructive surgical revision of her neck once her current wounds heal. She brings with her today a note from her [facility] doctors on a prescription pad, on which is written Please continue hyperbaric oxygen therapy. 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/14) Ear pain (right side; recurrent) Chronic ulcer (scalp; Enterococcus positive culture on 08/23/14; MRSA positive on 10/04/14) Complaints and Symptoms This information was obtained from the patient Patient complains of: General Notes: I have reviewed and concur with the Review of Systems and Past Family Social History documents completed by the clinician, I have reviewed and concur with the Wound Assessment document completed by the clinician Ear/Nose/Mouth/Throat: Ear Pain Integumentary (Hair/Skin/Nails): Open Sore Musculoskeletal: Deformities, Muscle Weakness Prior Wound History: Bleeding, Drainage, Erythema, Pain Patient denies complaints or symptoms related to: Cardiovascular (Central): Irregular heart beat Constitutional Symptoms (General Health): Chills, Fever, Marked Weight Change Ear/Nose/Mouth/Throat: Hearing Loss / Aid Gastrointestinal (GI): Nausea / Vomiting, Stomach/abdominal pain Hematologic/Lymphatic: Bleeding / Clotting Disorders, Bleeding Tendency Neurological: Loss of Protective Sensation Prior Wound History: Malodor Respiratory: Cough, Oxygen Use, Shortness of Breath OBJECTIVE Constitutional BP elevated; Afebrile; Alert and in no distress. Well developed. Alert. Clean appearing.. Height/Length: 66 in (167.64 cm), Weight: 227.9 lbs (103.59 kgs), BMI: 36.8, Temperature: 98.7 ?F (37.06 ?C), Pulse: 72 bpm, Respiratory Rate: 18 breaths/min, Blood Pressure: 141/81 mmHg, Pulse Oximetry: 95 %. Neck: Chronic skin contractures stable. Respiratory: No respiratory distress. Even respirations and without use of accessory muscles.. Gastrointestinal (GI): Obese. Nondistended.. Integumentary (Hair, Skin) Mild periwound erythema. Refer to appropriate clinician wound documentation for this visit; anterior neck ulcer extends to subcut with base covered with minimal pink granulation and wet slough; larger than on last review with previously described bridge of epithelium now deteriorated. Wound #36 Right, Proximal Neck is an acute Full Thickness Radiation Wound and has received a status of Not Healed. Subsequent wound encounter measurements are 5cm length x 1.5cm width x 0.1cm depth, with an area of 7.5 sq cm and a volume of 0.75 cubic cm. No tunneling has been noted. No sinus tract has been noted. No undermining has been noted. There is a moderate amount of seropurulent drainage noted which has no odor. The patient reports a wound pain of level 7/10. The wound margin is attached. Wound bed has No epithelialization, No eschar, Yes slough, Yes bright red, pink, firm granulation. The periwound skin texture is normal. The periwound skin exhibited: Moist, Erythema. The periwound skin did not exhibit: Dry/Scaly, Maceration, Atrophie [place], Cyanosis, Ecchymosis, Hemosiderosis, Pallor, Rubor. The temperature of the periwound skin is WNL. Periwound skin does not exhibit signs or symptoms of infection. Local Pulse is N /A. Neurological: Cranial nerves grossly intact with symmetric function normal by informal observation.. ASSESSMENT Active Problems ICD-10 (Encounter Diagnosis) S11.89XD - Other open wound of other specified part of neck, subsequent encounter (Encounter Diagnosis) L59.8 - Other specified disorders of the skin and subcutaneous tissue related to radiation (Encounter Diagnosis) L98.492 - Non-pressure chronic ulcer of skin of other sites with fat layer exposed (Encounter Diagnosis) L08.9 - Local infection of the skin and subcutaneous tissue, unspecified PROCEDURES Wound #36 Wound #36 (Radiation Wound) is located on the right, proximal neck. A skin/ subcutaneous tissue level surgical debridement with a total area debrided of 8 sq cm was performed by Duy Cornell MD. Subcutaneous was removed along with devitalized tissue: slough. The following instrument(s) were used: curette. Pain control was achieved using 4% Lido. A time out was conducted prior to the start of the procedure. A minimal amount of bleeding was controlled with n/a. The procedure was tolerated well with a pain level of 0 throughout and a pain level of 0 following the procedure. Post Debridement Measurements: 5cm length x 1.6cm width x 0.2cm depth; with an area of 8 sq cm and a volume of 1.6 cubic cm; Additional Information Muscle fascia or bone removed and sent to pathology?: No PLAN Wound Orders: Wound #36 Right, Proximal Neck Anesthetic Topical Xylocaine to wound bed. - Lidocaine in clinic only. Cleanser Cleanse Wound: - Normal saline and gauze. May use distilled water at home. May Shower. - Please change dressings immediately after showering. Topical Treatments Antibiotic/Antimicrobial Ointment/Cream. - Gentamicin ointment to wound base. Dressings Primary dressing: - Hydrocolloid cut to cover. Change Dressing: - Everyday Follow-Up Appointments Return Appointment: - - . Other information: If you develop fever, chills, increased pain, drainage, redness or swelling please call our office. If after hours, respond to the ER. Should you experience any significant changes in your wound(s) or have any questions regarding your home care instructions please contact the wound center @ [phone]. If after hours, contact your primary care physician or go to the hospital emergency room. Scribing Attestation I attest, as the nurse, that I scribed these orders for the physician. Laboratory: Bacteria identified in Wound by Culture - Right neck #36 General Notes: We will call you if there is any need of antibiotics. I've reviewed the clinician's documentation and agree with the evaluation and plan as written. In addition, the patient's ulcer demonstrates evidence of non-viable devitalized tissue which will continue to benefit from sharp debridement to help promote granulation and expedite healing. Also, I've repeated a wound culture and adjusted dressings to better protect the ulcer from the abrading ET tube and strap. I'll restart oral antibiotics pending the culture results. I'll also consider restarting hyperbaric oxygen therapy if the ulcer further deteriorates. Electronic Signature(s) Signed By: Date: Duy Cornell MD 09/08/2017 09:04:29 Entered By: Duy Cornell on 09/07/2017 12:00:26
== END ==
PROVIDERS: Visit Provider Internal Medicine
DX: L59.8 Other specified disorders of the skin and subcutaneous tissue related to radiation (principal); L98.492 Non-pressure chronic ulcer of skin of other sites with fat layer exposed; L08.9 Local infection of the skin and subcutaneous tissue, unspecified; S11.89XA Other open wound of other specified part of neck, initial encounter
CPT/HCPCS: 11042; 87070; 87075; 87077; 87205

== ENCOUNTER → 2017-09-10 11:52 | Outpatient (CLI) | payer OTHER, MEDICAID, SELFPAY ==
--- NOTE | 2017-09-10 | OV.WND_ITS ---
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 Allergies Penicillins (Severity: Moderate, Reaction: rash and hives), Vicodin (Severity: Moderate, Reaction: Rash and hives), ibuprofen (Severity: Moderate, Reaction: Rash and hives), Gelusil Antacid and Anti-Gas (Severity: Moderate, Reaction: increase in stomach discomfort), Septra (Severity: Moderate, Reaction: GI upset), Flagyl (Severity: Moderate, Reaction: Rash), Benadryl (Reaction: Rash), ranitidine (Severity: Moderate, Reaction: SOB, dizzy) HPI This information was obtained from the patient 09/10/17. Seen by Dr. Cornell. 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 Her culture at the last visit grew Diptherioids and he's applying topical gentamicin with dressing changes which has been adjusted to better protect the site from the abrading ET tube and strap. 09/07/17. Seen by Dr. Cornell. 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 The staff also feels the ulcer's increased in size and she's no long on oral antibiotics that were prescribed recently for a Enterococcus positive wound culture. 08/31/17. Seen by Finn Felton PA-C. The patient reports pain associated with her chronic neck radiation ulcer. 08/24/17. Seen by Dr. Cornell. 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 She continues to apply topical gentamicin to the ulcer to treat the Enterococcus positive wound culture as recommended. 08/14/17. Seen by Dr. Cornell. The patient's been applying topical gentamicin daily to the soft tissue radiation neck ulcer to treat the recent Enterococcus positive wound culture and she's completed her course of levofloxacin. 08/07/17. Seen by Dr. Cornell. 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 She does not report increased pain nor drainage from the site however nor other acute issues today. 07/31/17. Seen by Dr. Cornell. 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 07/24/17. Seen by Dr. Cornell. 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 07/17/17. Seen by Dr. Cornell. 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 Of note, the patient also states she fell from her bed a few days ago resulting in bilateral black eyes. 07/10/2017. Seen by Dr. Cornell. 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 She does not report increased drainage however nor other acute issues. 07/03/17. Seen by Dr. Cornell. 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 06/19/17. Seen by Dr. Cornell. 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 06/09/17. Seen by Dr. Cornell. The patient reports some pain associated with the anterior neck right sided soft tissue radiation ulcer and continues on doxycycline and levofloxacin following a recent admission for a COPD exacerbation. She does not report increased drainage from the ulcer sites and is using Xeroform and Scar-away dressings as recommended. 06/01/17. Seen by Dr. Cornell. The patient was admitted to the hospital for a COPD exacerbation and is now on oral antibiotics following discharge. She reports some ear pain but otherwise no acute issues. Regarding her soft tissue radiation ulcers over the anterior neck she is now using the silicone dressings and Xeroform as recommended and does not report significant pain or drainage.Of note, these are complicated significantly by her tracheostomy tube and attached strap that tends to shear the irradiated skin causing ulcers. 05/25/17. Seen by Dr. Cornell. The patient reports pain associated with the chronic soft tissue radiation neck ulcers. She states her dressings are not on continuously and that she has been wearing her tracheostomy strap for extended periods at home despite our advice to not use it if possible. 05/18/17. Seen by Finn Felton PA-C. The patient reports continued pain from her soft tissue radiation ulcers of the neck. She has finished a once daily antibiotic for a URI but does not recall which antibiotic it was. 05/11/17. Seen by Finn Felton PA-C. The patient reports increased pain and increased drainage from her soft tissue radiation ulcers of the neck. 04/23/17. Similarly Dr. Cornell. The patient does not report increased pain nor drainage associated with the chronic neck soft tissue radiation ulcers since her last visit. 04/16/17. Seen by Finn Felton PA-C. The patient reports that the Radia-gel dressings did not stay in place and the tape used to secure them caused skin tears. 04/09/17. Seen by Finn Felton PA-C. The patient reports no increase in drainage from her radiation ulcers of the neck. 04/02/17. Seen by Finn Felton PA-C. The patient reports her usual amount of pain from her anterior neck ulcers. 03/26/17. Seen by Dr. Cornell. 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 She was discharged recently from [facility] following treatment for an acute URI and is now on levofloxacin. 03/19/17. Seen by Dr. Cornell. The patient does not report significant pain associated with chronic anterior neck soft tssue radiation ulcer since her last visit. 03/12/17. Seen by Dr. Cornell. The patient reports increased pain associated with the anterior neck soft tissue radiation ulcers. Of note, she is reusing her silicon dressings and washing them despite being advised not to do this in the past. She has very limited financial resources that is leading her to do this. 03/04/17. Seen by Dr. Cornell. 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 She continues on doxycycline for a cat bite at the right arm without reported adverse side effects and feels this is improving. There are also no new issues regarding his left neck nonpressure ulcer. 02/24/17. Seen by Dr. Cornell. 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 She was seen in the ER for this and had a CT performed that showed cellulitis but no associated abscess. She was started on levofloxacin at that visit. Also, she was to start doxycycline following her last wound care visit for a cat bite of the right arm however states the antibiotic was not covered by insurance so she has not started this. Otherwise, she does not report fevers or feeling unwell in general. 02/17/17. Seen by Dr. Cornell. The patient reports continued pain associated with the anterior and left lateral neck soft tissue radiation ulcers since her last visit. She is not currently on antibiotics. She also reports a cat bite of the right arm that's been bleeding and painful for the past 2 days since it occurred. 02/10/17. Seen by Finn Felton PA-C. The patient reports a new ulcer on her left neck , in the irradiated area from her previous radiation treatment. 01/16/17. Seen by Dr. Cornell. The patient reports some moderate pain and drainage associated with her chronic neck soft tissue radiation ulcers since her last visit. 01/09/17. Seen by Dr. Cornell. The patient does not report significant pain or increased drainage associated with her chronic neck soft tissue radiation ulcers since her last visit. Her recent wound culture grew ocampo-sensitive Staph aureus and she's applying topical gentamicin as recommended. 01/01/17. Seen by Finn Felton PA-C. The patient reports increased pain and drainage from her chronic neck ulcers which overly an irradiated field. 12/17/16. Seen by Dr. Cornell. The patient does not report significant pain or increased drainage associated with her chronic neck soft tissue radiation ulcers since her last visit. She'll be leaving for a hunting trip and will be gone until December 31. 12/11/16. Seen by Dr. Cornell. The patient does not report significant pain nor drainage associated with chronic neck soft tissue radiation ulcers since her last visit. She completed her course of levofloxacin in the interim and also states that she will not be undergoing reconstructive surgery following discussion with her surgeons. 11/27/16. Seen by Dr. Cornell. The patient reports increased pain and some bloody drainage associated with the anterior neck soft tissue radiation ulcer. She also states that she's had a persistent and productive cough over the past few days. Her most recent wound culture grew MSSA and the prior grew a pansensitive Pseudomonas organism. Staff also report a new ulcer over the left anterior neck. 11/20/16. Seen by Finn Felton PA-C. The patient came in urgently today to be evaluated for increased bleeding and drainage from her neck ulcers which overly radiation damaged tissue. 11/14/16. Seen by Dr. Cornell. The patient continues to apply topical gentamicin to the chronic soft tissue radiation neck ulcers to treat the recent Pseudomonas positive wound culture. She does not report significant pain or increased drainage from these sites. She has an appointment with another surgeon on November 21 to further discuss reconstructive options regarding the narrowing of her stoma and significant soft tissue contractures around the anterior neck. 11/07/16. Seen by Dr. Cornell. The patient reports a new ulcer over the left side of her neck at an area of scarring associated with her chronic soft tissue radiation injury of the neck. She does not report significant pain nor drainage at the site nor from the chronic anterior nonpressure ulcer. Her last culture at that site grew Pseudomonas that is intermediately. 10/31/16. Seen by Dr. Cornell. The patient and her caregiver reports increased drainage associated with the chronic and progressive right anterior neck soft tissue radiation ulcer over the past week. They're having issues in terms of dressing changes and managing increased drainage and the patient also has a persistent and productive cough with mucus being expelled from the tracheostomy site. Of note, the caregiver states that she has been attempting to liaise with Dr. Lopez's office, ENT surgery at , regarding a follow up appointment to discuss reconstructive surgery in hopes of addressing the chronic skin contractures that are contributing heavily to the refractory nature of this neck ulcer. 10/23/16. Seen by Finn Felton PA-C. The patient reports no increase in pain or drainage from her neck ulcer. Her two ulcers have bridged into one ulcer. She has no new news regarding a surgical revision. 10/10/16. Seen by Dr. Cornell.The patient does not report increased pain or drainage associated with the chronic soft tissue neck radiation ulcers since her last visit. Her culture from the last visit grew diphtheroids and she's been applying topical gentamicin as recommended. According to her caregiver they have still not heard back regarding an appointment with her surgeon who is planning a revision for the stenosed tracheostomy site noting the tube is contributing significantly to the ulcer formation. She also does not report significant pain or drainage associated with the superficial abdominal abscess noted at her last visit. 10/03/16. Seen by Dr. Cronell. The patient continues to report some pain associated with the chronic neck soft tissue radiation ulcers. The patient caregiver feels the proximal ulcer continues to increase in size. They have not yet scheduled an appointment for revision surgery for the tracheostomy as was discussed last week. 09/26/16. Seen by Dr. Cornell. The patient continues to report some pain as well as persistent drainage associated with the chronic right neck soft-tissue radiation ulcers. 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 He is planning for a revision surgery to try to address this issue in the near future. 09/19/16. Seen by Dr. Cornell. The patient and her brother continue to report some pain associated with the chronic neck nonpressure ulcers but no increased drainage and they've been changing the silicon dressings as recommended to protect the soft-tissue radiation injured skin and protect against abrasion caused by the tracheosteomy tube. Of note, the patient feels as though the stoma may gradually be tightening as she continues to have some difficulty replacing the tube after taking it out. She also reports some persistent productive coughing and nasal drainage in the evenings and through the night and feels it may be related to allergies. 09/01/16. Seen by Dr. Cornell. The patient's brother who's present today reports that the patient's silicon dressings are being changed less frequently than recommended and in washing them the adherence is deteriorating which may be leading to loss of function in terms of protecting the underlying irradiated skin and neck ulcers. She does not report increased drainage or pain associated with the neck ulcers today. 08/28/16. Seen by Dr. Cornell. The patient removed her tracheostomy tube in clinic today and is having difficulty replacing it. She's a bit anxious at the time of exam but is breathing without distress or audible stridor. Regarding her chronic neck soft tissue radiation ulcers, there's no new issues to report and she's been dressing them as recommended. 08/21/16. Seen by Dr. Cornell. The patient reports continued pain and drainage associated with the chronic soft tissue radiation ulcer along the margin of her tracheostomy stoma. She and her caregiver are dressing it as recommended and she's completed her course of antibiotics those treating the recently cultured MRSA. 08/15/16. Seen by Dr. Cornell. The patient reports increased pain associated with the chronic soft tissue radiation neck ulcers since her last visit and her caregiver reports some thick overlying drainage around the mid-line ulcer adjacent to the tracheostomy stoma. She does not report fevers or feeling unwell however and has been applying topical antibiotic to the ulcers as recommended. 08/08/16. Seen by Dr. Cornell. The patient reports continued pain associated with the chronic anterior neck non-pressure ulcers and they've been applying topical gentamicin to treat the recurrent MRSA positive wound cutlures. She's also wearing her silicon dressing as recommended to help protect the soft tissue radiation injury of the skin from abrasion caused by her tracheostomy tube strap. 08/01/16. Seen by Dr. Cornell. The patient's caregiver reports improvement in terms of pain and drainage associated with the chronic neck ulcers. They've been applying topical gentamicin as recommended for the chronic wound infections. 07/23/16. Seen by Dr. Cornell. The patient's caregiver reports improvement in terms of pain and drainage associated with the chronic neck ulcers overlying the soft tissue radiation injury that follow treatment for her laryngeal cancer years ago. They've been applying topical gentamicin as recommended for the chronic wound infections. 07/09/16. Seen by Finn Felton PA-C. The patient reports she has run out of the silicone strips that were fabricated by [employer] to reduce abrasion from her laryngostomy collar. She is using scar fade strips which are not staying in place. Her neck ulcers continue to be present under the collar. 06/25/16. Seen by Dr. Cornell. The patient's caregiver reports improvement in terms of pain and drainage associated with the chronic neck ulcers. They've been applying topical gentamicin as recommended for the chronic wound infections. 06/11/16. Seen by Dr. Cornell. The patient reports improvement in terms of pain and drainage associated with the chronic neck ulcers. She completed her course of ciprofloxacin which was treating the recurrent ulcer infections and she continues to apply topical gentamicin to the ulcer beds. 06/04/16. Seen by Dr. Cornell. The patient continues to report some pain and minimal drainage associated with the chronic neck ulcers are complicated by underlying soft tissue radiation injury. She was just discharged from the hospital for tracheobronchitis and continues on ciprofloxacin with cultures that have grown Pseudomonas, Staph, and Haemophilus. She does not report adverse side effects from antibiotics nor fevers or feeling unwell today although she continues to have a mild cough. 05/26/16. Seen by Finn Felton PA-C. The patient reports no increase in drainage or pain from her neck ulcers. 05/16/16. Seen by Dr. Cornell. The patient does not report significant pain nor drainage associated with the recurrent neck soft tissue radiation ulcers since her last visit. She's been applying topical gentamicin as recommended and wearing the silicon dressings to protect from the trach tube strap rubbing on the irradiated skin.Also, her wound culture from the last visit grew MSSA. 05/09/16. Seen by Dr. Cornell. The patient feels her recurrent soft tissue radiation ulcers over the mid and left aspects of her neck are painful and draining for the past week. She reports wearing her silicon dressing but does not have it in place all of the time and has been leaving her tracheostomy tube strap off for extended periods during the day to help prevent abrasion. She's been applying topical gentamicin to the ulcers but is not currently on systemic antibiotics. 04/29/16. Seen by Finn Felton PA-C. The patient reports continued compliance with her silicone skin protector that she wears under her collar. She reports improvement in her neck ulcers, however she ran out of supplies a few days ago and now reports worsening of the ulcers. 04/11/16. Seen by Dr. Cornell. The patient reports decreased pain and drainage associated with the chronic neck non-pressure ulcers over the patient week and she's applying topical gentamicin to treat the chronic MRSA wound infection as recommended. She's also using silicon dressings to help better protect the soft tissue radiation injury to the neck which is heavily implicated in the recurrent and refractory nature of the ulcers. 04/04/16. Seen by Dr. Cornell. The patient reports an increase in the size and pain associated with the left neck non-pressure ulcer since her last visit. She's applying gentamicin ointment to all of the ulcers a recommended and using the silicon dressings to help prevent abrasion caused by the trach tube strap. 03/28/16. Seen by Dr. Cornell. The patient reports decreased pain and drainage associated with the chronic neck non-pressure ulcers over the patient week and she's restarted use of the silicon dressings again to protect the irradiated skin that's been breaking down under the trach strap and contributing to the recurrent and refractory nature of the ulcers. 03/21/16. Seen by Dr. Cornell. The patient reports decreased pain and drainage associated with the chronic neck non-pressure ulcers over the patient week and she continues applying topical gentamicin to treat the chronic MRSA wound infection. 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 03/13/15. Seen by Dr. Cornell. The patient reports decreased pain and drainage associated with the chronic neck non-pressure ulcers over the patient week since starting on doxycycline for a recurrent MRSA wound infection. She's now using silicon dressings to protect the irradiated skin over the neck that resulted from radiation therapy treating laryngeal cancer. She does not report adverse effects of the doxycycline and is also applying topical gentamicin daily to the ulcer sites. 03/06/16. Seen by Dr. Cornell. The patient reports persistent pain associated with the recurrent neck non-pressure ulcers and staff report they're larger and are draining based on the dressings. 02/28/16. Seen by Dr. Cornell. The patient returns with new ulcers overlying her soft tissue radiation neck injury that resulted following treatment for laryngeal cancer. She states she ran out of the silicon dressings she uses to protect the area from her trach tube strap and after this the ulcers appeared and are quite painful. Their draining however she does not report fevers. 11/28/15. Seen by Dr. Cornell. 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 11/21/15. Seen by Dr. Cornell. The patient reports some minimal pain associated with the chronic neck soft tissue radiation ulcer since her last visit. She also complains of right ear pain and has asked me to have look in the ear as it feels like there may be a foreign body present. She also reports a mild cough, sore throat, and feeling a bit unwell in general. 11/14/15. Seen by Dr. Cornell. The patient reports moderate pain but no significant drainage associated with the left neck soft tissue radiation ulcer since her last visit. 10/31/15. Seen by Dr. Cornell. The patient reports some pain associated with the left neck soft tissue radiation ulcer but no increased drainage from either ulcer nor pain associated with the middle soft tissue radiation ulcer. Her caregiver notes that they're running out of the silicon dressings and they've become nearly prohibitively expensive. 10/12/15 Seen by Finn Felton PA-C. The patient returns to our clinic after reconstructive scar- revision surgery on her radiation damaged neck. She has wounds that have been left to close by secondary intention and are slow to heal. In addition, her silicone strips that help hold her laringostomy collar in place continue to work well for her. 09/07/[address] Cornell. The patient presents with a new rash over the right neck overlying the soft tissue radiation injury. Of note, her very chronic wounds at the same site were recently healed. She dose not report pain, drainage, or skin breakdown associated with the rash. 08/24/[address] Cornell. The patient does not report pain or drainage associated with the chronic neck soft tissue radiation ulcers over the past few days and she's using the silicon dressings to cover the ulcers. 08/15/[address] Cornell. The patient nor her caregiver report significant pain or drainage from either the left or right neck soft tissue radiation ulcers over the past week and she's received her silicon dressings that are being used to prevent abrasion to the skin caused by her laryngostomy tube strap. 08/09/[address] Cornell. 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 Otherwise the right neck ulcers remain relatively stable and have minimal drainage over the past week. 08/02/[address] Cornell. The patient reports minimal discomfort associated with the chronic neck soft tissue radiation ulcers and her caregiver feels they've improved considerably over the past week while applying gentamicin ointment and using the silicon dressing to prevent abrasion from the trach strap. 07/26/[address] Cornell. The patient reports only moderate discomfort and minimal drainage associate with her remaining soft tissue radiation ulcers of the neck. 07/19/[address] Cornell. The patient's caregiver reports increased drainage on the dressings covering the neck soft tissue radiation ulcers and the patient reports some increased pain at the ulcer sites. They're also running out of the silicon dressings they' ve been using to protect the ulcers from abrasion caused by the overlying trach strap. She does not report any problems regarding the chronic left upper arm wound. 07/12/[address] Cornell. The patient does not report increased pain or drainage associated with her chronic neck soft tissue radiation ulcers and she's been using her silicon wound dressings daily. She feels her ulcers are much less painful since changing to the new dressings. 07/05/[address] Cornell. The patient reports a significant improvement in pain regarding her chronic neck soft tissue radiation ulcers since starting to use adherent silicon dressings to prevent abrasion caused by her trach strap. She does not report significant drainage from the ulcers. 06/22/[address] Cornell. The patient continues to report persistent pain associated with the chronic neck soft tissue radiation ulcers. 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 06/12/15 Seen by Finn Felton PA-C. The patient reports continued pain from her radiation neck ulcers. 06/05/15 Seen by Finn Felton PA-C. The patient reports continued pain and stable drainage from her neck radiation ulcers. She continues to use her favored dressings instead of ones that we have recommended for her. 05/21/15 Seen by Finn Felton PA-C. The patient reports continued pain and no change in drainage from her neck radiation ulcers and her arm and chest wounds. 05/08/15 Seen by Finn Felton PA-C. The patient reports continued pain and stable drainage from her neck radiation ulcers. Flores from [facility] attended part of the appointment to try fitting her for the laryngectomy collar protective prosthetic. 04/25/[address] Cornell. The patient continues to report significant pain associated with the chronic soft tissue radiation neck ulcers and the staff report at least moderate drainage on her dressings today. She does not report fevers or feeling unwell otherwise. 04/11/[address] Cornell. The patient been on levofloxacin and doxycycline for Pseudomonas and MRSA positive wounds cultures taken from her soft tissue radiation ulcers over the neck and around the laryngostomy wound. She still reports pain associated with the ulcers but indicates it's not as bad as last week. 04/05/[address] Cornell. The patient reports persistent pain associated with her neck soft tissue radiation ulcers. She's currently on levofloxacin and doxycycline for the Pseudomonas and MRSA positive culture taken at the last visit and she does not report adverse side effects. 03/28/2015 Seen by Finn Felton PA-C. The patient continues to complain of neck ulcer pain. In addition she again asks today why are they hurting. She has not been compliant with any of our attempts at specialized laryngectomy collar padding or dressings. 03/21/2015 Seen by Finn Felton PA-C. The patient returns with stable 6-7/10 constant pain from the radiation ulcers on her neck. She continues on Doxycycline and has finished her course of prednisone for a URI as prescribed by her PCP. He has recently not been able to keep the Radiagel sheets attached to her neck or tracheostomy collar and has gone back to using Xeroform gauze. 02/19/15 Seen by Finn Felton PA-C. The patient returns for evaluation of her radiation ulcers of the neck. She reports continued pain and her most recent dressings that we have trialed did not stay in place. 02/12/15 Seen by Finn Felton PA-C. The patient reports continued neck pain from her radiation ulcers as well as tightness in her surrounding neck tissues. She reports the pain is exacerbated by rubbing of her tracheostomy tube macias and by any palpation or instrumentation. Drainage has been minimal. 02/05/15 Seen by Finn Felton PA-C. The patient presents today with a new wound on her left lateral neck, on her irradiated tissue. This wound is 01/24/[address] Cornell. The patient reports a cough and feeling unwell the past few days. She continues on doxycycline and levofloxcacin for the recent MRSA and Pseudomonas positive wound culture. Of note, she arrives today with gauze dressings over her next ulcers as opposed to foam which has been recommended. 01/17/[address] Cornell. The patient's been started on doxycycline and levofloxacin for her wound culture from the last visit that grew MRSA again plus Pseudomonas which is new. She reports having a cough and low grade fever also and the staff report the left neck ulcer dressings as being quite wet. 01/12/[address] Cornell. The patient indicates the neck ulcer pain is a 6-7/ 10 today and states she's been adhering to our dressing change recommendations. She's not currently on antibiotics and does not report fever although she feels a bit under the weather. 01/05/[address] Cornell. The patient complains of 4/10 pain at the site of her remaining chronic neck ulcers. 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 12/18/14 Seen by Finn Felton PA-C. The patient continues to have difficulty securing her dressings and keeping them in place under her tracheostomy collar. She is planning on going deer hunting and will be away from our clinic for over 1 week. 12/12/[address] Cornell. The patient complains of significant right ear pain. Her left neck ulcer culture from the last visit grew MRSA and she's not currently on antibiotics at this time. Of note, the foam that we placed around the tracheostomy tube to prevent abrasion was not in place on the patient's arrival today. 12/08/[address] Cornell. The patient complains of some persistent pain at the site of the left neck ulcer but does not report fever or increased drainage. Of note, she's not changed her dressing since her last visit 3 days ago. 11/28/14 Seen by Finn Felton PA-C. The patient again reports right ear pain without drainage or disturbance in hearing. The dressing on her head wound has stayed in place and her neck dressings lasted less than 24hrs in place. Scalp wound pain has decreased. 11/28/14 Seen by Finn Felton PA-C. The patient has seen her PCP for her right ear issues and he has prescribed her Cefuroxime, which she is currently taking. She has kept her scalp dressing in place and reports continued neck pain and a new neck wound on the left. 11/14/14 Seen by Finn Felton PA-C. The patient's right sided neck wound and scalp wound are much improved today after she has been keeping her head wound covered and has loosened her trach collar. Both wounds are reportedly less painful than before. 11/07/14 Doc Z Surg: patient returns for follow-up of the radiation injury and mechanical abrasions wounds of the neck laterally and anteriorly adjacent to the tracheostomy straps which appear to have been chafing on this sensitive skin in the field of radiation. The padded protective dressing has been utilized since her last visit and shows marked improvement in all of the wounds. Also the scalp abrasions which appear to be fingernail scrapings have also improved markedly after the patient educated to avoid fingernails scratching on the scalp area. Question was raised regarding the possibly poor fitting tracheostomy tube but this appears normal and not problematic to my examination. At present I do not see any need for ENT reevaluation of the [id number] tracheostomy site. 10/26/[address] Cornell. The patient complains of recurrent right ear pain that's constant over the past week but does not report fever, sweats, or drainage from the ear. Her wound cultres from the scalp and neck ulcers grew MRSA on 10/04/14. She continues to report pain at these sites and has been unable to maintain dressings as recommended due to discomfort and the fact the scalp dressing falls off. 10/12/14 Seen by Finn Felton PA-C. The patient reports ear pain after completing HBOT. Her wounds still feel tight around her neck but are otherwise stable and more comfortable with her new foam neck dressings. 10/04/[address] Cornell. The patient feels the pain associated with her neck and scalp ulcers is improved and only noticeable intermittently. She arrived today with foam dressings over the neck ulcers which we started utilizing last week to minimize trauma from the tracheostomy tube harness to the skin and ulcers beneath. 09/27/[address] Cornell. The patient feels her neck ulcers and scalp wounds are less painful however the staff report that the dressing plan we implemented to help prevent abrasion to the neck ulcers does not seem to have been continued after the patient left clinic last week. She's now off of antibiotics and does not report increased drainage. 09/20/[address] Cornell. The patient feels her scalp and neck ulcer pain are improving since she's been on IV daptomycin. She also had a doppler study yesterday that rule out a left arm DVT however she still complains of swelling and discomfort in the arm. 09/06/[address] Cornell. The patient complains of continued pain and drainage associated with her scalp and neck ulcers. She's no longer on antibiotics and recently grew Enterococcus and resistant coag negative Staph from the ulcer sites respectively. 08/30/[address] Cornell. The patient reports continued pain at the neck and scalp ulcers and her scalp wound grew Enterococcus on 08/23/14. She's taking clindamycin and completed a course of azithromycin that were started in the ER due to a recurrent URI. 08/16/14 Seen by Finn Felton PA-C. The patient continues to take Keflex for her scalp wound bacterial infection. She reports it is now more painful and draining more than before. Her neck radiation wounds continue to feel tight. 08/14/14 Seen by Finn Felton PA-C. The patient complains of right ear pain and fullness which started today. She reports feeling like she might have a cold coming on. 08/09/[address] Cornell. The patient complains of persistent pain at the site of the neck ulcers and worsening pain at the scalp ulcer. She's taking doxycycline based on the most recent MSSA wound culture sensitivities from the neck ulcer and does not report any adverse side effects. 07/08/[address] Cornell. The patient feels the neck ulcer pain is improving and she's completed her course of doxycycline that was started last week. She still complains of significant pain a the site of the scalp lesion however. Her wound culture from 07/28 grew MSSA sensitive to doxycycline. 07/26/[address] Cornell. The patient complains of increased pain at the neck ulcers as well as the scalp lesion. She does not report increased drainage, fever, cough, or chills and states her previously reported right ear pain has improved. 07/14/[address] Cornell. The patient reports right ear pain with a sore throat but no fevers or cough. 07/11/14 Seen by Finn Felton PA-C. The patient reports less scalp pain and no drainage from her scalp wound. She continues to report a pulling type pain in and around her neck wounds. 07/04/14 Seen by Finn Felton PA-C. The patient has cut her fingernails short and reports that her scalp wound is hurting and itching less. She reports a new wound over an old abdominal scar today. It has been present for 5 days and she is not sure how it occurred. 06/20/14 The patient feels her neck ulcer pain as well as the scalp lesion pain have improved since starting doxycycline. She continues to apply hydrogel and Xeroform to the neck ulcers to keep them moist. Otherwise she's tolerating HBOT without difficulty and has made significant progress in the healing of the neck ulcers throughout this most recent series of dives. 06/13/14 The patient indicates that her neck ulcers 'feel tight' and she still has some discomfort at the scalp lesions. She also complains of significant pruritis in the area of the scalp lesions. She's been taking taking doxycycline for the past week to treat a MRSA positive culture of the scalp ulcer. 06/06/14 The patient reports continued pain from all of her wounds and frustration that her scalp wound has not healed despite her not scratching it. 05/31/14 The patient's here for HBOT today but complains of new left facial pain over the angle of the mandible that started yesterday. She does not complain of ear pain or an dental or intraoral pain but has been treated in the hospital recently for recurrent pneumonia. She's also been reviewed in the past 3 months by her oncologist and reportedly is cancer free. 05/30/14 The patient does not report increased pain or drainage from her neck wounds nor scalp lesion. 05/18/14 The patient complains of significant pain at the left 3rd finger wound as well as her chronic scalp wound. Otherwise she does not report significant pain nor drainage from the neck wounds. 05/12/14 The patient does not report increased pain or drainage from her neck ulcers nor the wound on the scalp. 05/04/14 The patient reports increased pain at the left neck wound and apparently the barrier dressing slipped down and her guaze became adherent resulting in a skin tear upon removal. Otherwise she continues to complain of pain at both neck wounds and the scalp wound. 05/02/14 The patient was seen today in the HBOT treatment room for complaints of a productive cough. She was recently discharged from the hospital with a diagnosis of tracheobronchitis and is finishing a course of Levaquin. Cough is described as yellow and thick and is difficult to clear from her tracheostomy. 04/21/14 The patient complains of persistent ear pain in the right ear despite using antibiotic drops Rx'd by her ENT provider last week. She does not report drainage or fever. 04/18/14 The patient states her cough is improving and she's still on antibiotics from her recent admission for pneumonia. She does not report increased drainage or pain from the neck ulcers but states her right ear pain has returned. She was seen by ENT who felt the lesion in the external canal was traumatic and she was given an Rx for ear drops which she states she's been using. She also reports recurrence of the painful left scalp wound that was recently healed. 04/11/14 The patient complains of a cough productive of green sputum for the past few days that's particularly worse when lying flat. She indicates that she feels generally unwell and weak and is questioning whether she can tolerate HBOT today. 04/05/14 The patient continues to complain of right ear pain however does not report bleeding from the ear today. Of note, she was reviewed for this problem last week and a shallow ulcer in the right external ear canal was the only finding. 03/30/14 The patient reports continued 5/10 pain from her neck wound which is described as a constant, pulling type pain, which is exacerbated by flexing, extending or rotating her neck. 03/29/14 The patient completed her HBOT dive today and now complains of blood draining from the right ear. She does not report pain now nor during the dive today. 03/23/14 The patient reports increased pain from her medial neck wounds as well as from her scalp wound. The pain is described as a throbbing and sometimes pulling pain that is constant in nature and has no exacerbating factors, nor is it associated with any activity. She does not report fever, chills or increased wound drainage. Additionally the patient reports her [facility] doctors are considering a reconstructive surgical revision of her neck once her current wounds heal. She brings with her today a note from her [facility] doctors on a prescription pad, on which is written Please continue hyperbaric oxygen therapy. 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/14) Ear pain (right side; recurrent) Chronic ulcer (scalp; Enterococcus positive culture on 08/23/14; MRSA positive on 10/04/14) Complaints and Symptoms This information was obtained from the patient Patient complains of: General Notes: I have reviewed and concur with the Review of Systems and Past Family Social History documents completed by the clinician, I have reviewed and concur with the Wound Assessment document completed by the clinician Ear/Nose/Mouth/Throat: Ear Pain Integumentary (Hair/Skin/Nails): Open Sore Musculoskeletal: Deformities, Muscle Weakness Prior Wound History: Bleeding, Drainage, Erythema, Pain Patient denies complaints or symptoms related to: Cardiovascular (Central): Irregular heart beat Constitutional Symptoms (General Health): Chills, Fever, Marked Weight Change Ear/Nose/Mouth/Throat: Hearing Loss / Aid Gastrointestinal (GI): Nausea / Vomiting, Stomach/abdominal pain Hematologic/Lymphatic: Bleeding / Clotting Disorders, Bleeding Tendency Neurological: Loss of Protective Sensation Prior Wound History: Malodor Respiratory: Cough, Oxygen Use, Shortness of Breath OBJECTIVE Constitutional Vital signs reviewed and noted. Well developed. Alert. Clean appearing.. Height/ Length: 66 in (167.64 cm), Weight: 227.1 lbs (103.23 kgs), BMI: 36.7, Temperature: 98.4 ?F ( 36.89 ?C), Pulse: 84 bpm, Respiratory Rate: 18 breaths/min, Blood Pressure: 140/83 mmHg, Pulse Oximetry: 94 %. Neck: Chronic skin contractures stable. Respiratory: No respiratory distress. Even respirations and without use of accessory muscles.. Integumentary (Hair, Skin) No periwound erythema, warmth, or significant drainage. No periwound rashes appreciated or noted otherwise.. Refer to appropriate clinician wound documentation for this visit; anterior neck ulcer extends to subcut with base covered with minimal pink granulation, appear dry. Wound #36 Right, Proximal Neck is an acute Full Thickness Radiation Wound and has received a status of Not Healed. Subsequent wound encounter measurements are 4.5cm length x 1.1cm width x 0.1cm depth, with an area of 4.95 sq cm and a volume of 0.495 cubic cm. No tunneling has been noted. No sinus tract has been noted. No undermining has been noted. There is a moderate amount of seropurulent drainage noted which has no odor. The patient reports a wound pain of level 7/10. The wound margin is attached. Wound bed has No epithelialization, No eschar, Yes slough, Yes bright red, pink, firm granulation. The periwound skin texture is normal. The periwound skin exhibited: Erythema. The periwound skin did not exhibit: Dry/Scaly, Moist, Maceration, Atrophie Melissa, Cyanosis, Ecchymosis, Hemosiderosis, Pallor, Rubor. The temperature of the periwound skin is WNL. Periwound skin does not exhibit signs or symptoms of infection. Local Pulse is N/A. Neurological: Cranial nerves grossly intact with symmetric function normal by informal observation.. 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 A skin/ subcutaneous tissue level surgical debridement with a total area debrided of 2.475 sq cm was performed by Duy Cornell MD. Subcutaneous was removed along with devitalized tissue: slough. The following instrument(s) were used: curette. Pain control was achieved using 4% Lido. A time out was conducted prior to the start of the procedure. A minimal amount of bleeding was controlled with pressure. The procedure was tolerated well with a pain level of 0 throughout and a pain level of 1 following the procedure. Post Debridement Measurements: 4.5cm length x 1.1cm width x 0.1cm depth; with an area of 4.95 sq cm and a volume of 0.495 cubic cm; PLAN Wound Orders: Wound #36 Right, Proximal Neck Anesthetic Topical Xylocaine to wound bed. - Lidocaine in clinic only. Cleanser Cleanse Wound: - Normal saline and gauze. May use distilled water at home. May Shower. - Please change dressings immediately after showering. Topical Treatments Antibiotic/Antimicrobial Ointment/Cream. - Triple antibiotic ointment to wound base. Dressings Primary dressing: - Scar therapy strips Change Dressing: - Every other day. Follow-Up Appointments Return Appointment: - - One week. Other information: If you develop fever, chills, increased pain, drainage, redness or swelling please call our office. If after hours, respond to the ER. Should you experience any significant changes in your wound(s) or have any questions regarding your home care instructions please contact the wound center @ [phone]. If after hours, contact your primary care physician or go to the hospital emergency room. Scribing Attestation I attest, as the nurse, that I scribed these orders for the physician. I've reviewed the clinician's documentation and agree with the evaluation and plan as written. In addition, the patient's ulcer demonstrates evidence of non-viable devitalized tissue which will continue to benefit from sharp debridement to help promote granulation and expedite healing. Electronic Signature(s) Signed By: Date: Duy Cornell MD 09/10/2017 15:34:08 Entered By: Duy Cornell on 09/10/2017 12:25:45
== END ==
PROVIDERS: Visit Provider Internal Medicine
DX: L59.8 Other specified disorders of the skin and subcutaneous tissue related to radiation (principal); L98.492 Non-pressure chronic ulcer of skin of other sites with fat layer exposed; S11.89XA Other open wound of other specified part of neck, initial encounter
CPT/HCPCS: 11042

== ENCOUNTER → 2017-09-17 09:06 | Outpatient (CLI) | payer OTHER, MEDICAID, SELFPAY ==
--- NOTE | 2017-09-17 | OV.WND_ITS ---
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 Allergies Penicillins (Severity: Moderate, Reaction: rash and hives), Vicodin (Severity: Moderate, Reaction: Rash and hives), ibuprofen (Severity: Moderate, Reaction: Rash and hives), Gelusil Antacid and Anti-Gas (Severity: Moderate, Reaction: increase in stomach discomfort), Septra (Severity: Moderate, Reaction: GI upset), Flagyl (Severity: Moderate, Reaction: Rash), Benadryl (Reaction: Rash), ranitidine (Severity: Moderate, Reaction: SOB, dizzy) HPI This information was obtained from the patient 09/17/17. Seen by Dr. Cornell. 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 She has an appointment tomorrow with her PCP to address this problem. Otherwise she does not report increased pain or drainage associated with the ulcer however the nurse reports the ulcer as being larger this week. 09/10/17. Seen by Dr. Cornell. 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 Her culture at the last visit grew Diptherioids and he's applying topical gentamicin with dressing changes which has been adjusted to better protect the site from the abrading ET tube and strap. 09/07/17. Seen by Dr. Cornell. 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 The staff also feels the ulcer's increased in size and she's no long on oral antibiotics that were prescribed recently for a Enterococcus positive wound culture. 08/31/17. Seen by Finn Felton PA-C. The patient reports pain associated with her chronic neck radiation ulcer. 08/24/17. Seen by Dr. Cornell. 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 She continues to apply topical gentamicin to the ulcer to treat the Enterococcus positive wound culture as recommended. 08/14/17. Seen by Dr. Cornell. The patient's been applying topical gentamicin daily to the soft tissue radiation neck ulcer to treat the recent Enterococcus positive wound culture and she's completed her course of levofloxacin. 08/07/17. Seen by Dr. Cornell. 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 She does not report increased pain nor drainage from the site however nor other acute issues today. 07/31/17. Seen by Dr. Cornell. 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 07/24/17. Seen by Dr. Cornell. 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 07/17/17. Seen by Dr. Cornell. 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 Of note, the patient also states she fell from her bed a few days ago resulting in bilateral black eyes. 07/10/2017. Seen by Dr. Cornell. 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 She does not report increased drainage however nor other acute issues. 07/03/17. Seen by Dr. Cornell. 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 06/19/17. Seen by Dr. Cornell. 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 06/09/17. Seen by Dr. Cornell. The patient reports some pain associated with the anterior neck right sided soft tissue radiation ulcer and continues on doxycycline and levofloxacin following a recent admission for a COPD exacerbation. She does not report increased drainage from the ulcer sites and is using Xeroform and Scar-away dressings as recommended. 06/01/17. Seen by Dr. Cornell. The patient was admitted to the hospital for a COPD exacerbation and is now on oral antibiotics following discharge. She reports some ear pain but otherwise no acute issues. Regarding her soft tissue radiation ulcers over the anterior neck she is now using the silicone dressings and Xeroform as recommended and does not report significant pain or drainage.Of note, these are complicated significantly by her tracheostomy tube and attached strap that tends to shear the irradiated skin causing ulcers. 05/25/17. Seen by Dr. Cornell. The patient reports pain associated with the chronic soft tissue radiation neck ulcers. She states her dressings are not on continuously and that she has been wearing her tracheostomy strap for extended periods at home despite our advice to not use it if possible. 05/18/17. Seen by Finn Felton PA-C. The patient reports continued pain from her soft tissue radiation ulcers of the neck. She has finished a once daily antibiotic for a URI but does not recall which antibiotic it was. 05/11/17. Seen by Finn Felton PA-C. The patient reports increased pain and increased drainage from her soft tissue radiation ulcers of the neck. 04/23/17. Similarly Dr. Cornell. The patient does not report increased pain nor drainage associated with the chronic neck soft tissue radiation ulcers since her last visit. 04/16/17. Seen by Finn Felton PA-C. The patient reports that the Radia-gel dressings did not stay in place and the tape used to secure them caused skin tears. 04/09/17. Seen by Finn Felton PA-C. The patient reports no increase in drainage from her radiation ulcers of the neck. 04/02/17. Seen by Finn Felton PA-C. The patient reports her usual amount of pain from her anterior neck ulcers. 03/26/17. Seen by Dr. Cornell. 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 She was discharged recently from [facility] following treatment for an acute URI and is now on levofloxacin. 03/19/17. Seen by Dr. Cornell. The patient does not report significant pain associated with chronic anterior neck soft tssue radiation ulcer since her last visit. 03/12/17. Seen by Dr. Cornell. The patient reports increased pain associated with the anterior neck soft tissue radiation ulcers. Of note, she is reusing her silicon dressings and washing them despite being advised not to do this in the past. She has very limited financial resources that is leading her to do this. 03/04/17. Seen by Dr. Cornell. 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 She continues on doxycycline for a cat bite at the right arm without reported adverse side effects and feels this is improving. There are also no new issues regarding his left neck nonpressure ulcer. 02/24/17. Seen by Dr. Cornell. 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 She was seen in the ER for this and had a CT performed that showed cellulitis but no associated abscess. She was started on levofloxacin at that visit. Also, she was to start doxycycline following her last wound care visit for a cat bite of the right arm however states the antibiotic was not covered by insurance so she has not started this. Otherwise, she does not report fevers or feeling unwell in general. 02/17/17. Seen by Dr. Cornell. The patient reports continued pain associated with the anterior and left lateral neck soft tissue radiation ulcers since her last visit. She is not currently on antibiotics. She also reports a cat bite of the right arm that's been bleeding and painful for the past 2 days since it occurred. 02/10/17. Seen by Finn Felton PA-C. The patient reports a new ulcer on her left neck , in the irradiated area from her previous radiation treatment. 01/16/17. Seen by Dr. Cornell. The patient reports some moderate pain and drainage associated with her chronic neck soft tissue radiation ulcers since her last visit. 01/09/17. Seen by Dr. Cornell. The patient does not report significant pain or increased drainage associated with her chronic neck soft tissue radiation ulcers since her last visit. Her recent wound culture grew ocampo-sensitive Staph aureus and she's applying topical gentamicin as recommended. 01/01/17. Seen by Finn Felton PA-C. The patient reports increased pain and drainage from her chronic neck ulcers which overly an irradiated field. 12/17/16. Seen by Dr. Cornell. The patient does not report significant pain or increased drainage associated with her chronic neck soft tissue radiation ulcers since her last visit. She'll be leaving for a hunting trip and will be gone until December 31. 12/11/16. Seen by Dr. Cornell. The patient does not report significant pain nor drainage associated with chronic neck soft tissue radiation ulcers since her last visit. She completed her course of levofloxacin in the interim and also states that she will not be undergoing reconstructive surgery following discussion with her surgeons. 11/27/16. Seen by Dr. Cornell. The patient reports increased pain and some bloody drainage associated with the anterior neck soft tissue radiation ulcer. She also states that she's had a persistent and productive cough over the past few days. Her most recent wound culture grew MSSA and the prior grew a pansensitive Pseudomonas organism. Staff also report a new ulcer over the left anterior neck. 11/20/16. Seen by Finn Felton PA-C. The patient came in urgently today to be evaluated for increased bleeding and drainage from her neck ulcers which overly radiation damaged tissue. 11/14/16. Seen by Dr. Cornell. The patient continues to apply topical gentamicin to the chronic soft tissue radiation neck ulcers to treat the recent Pseudomonas positive wound culture. She does not report significant pain or increased drainage from these sites. She has an appointment with another surgeon on November 21 to further discuss reconstructive options regarding the narrowing of her stoma and significant soft tissue contractures around the anterior neck. 11/07/16. Seen by Dr. Cornell. The patient reports a new ulcer over the left side of her neck at an area of scarring associated with her chronic soft tissue radiation injury of the neck. She does not report significant pain nor drainage at the site nor from the chronic anterior nonpressure ulcer. Her last culture at that site grew Pseudomonas that is intermediately. 10/31/16. Seen by Dr. Cornell. The patient and her caregiver reports increased drainage associated with the chronic and progressive right anterior neck soft tissue radiation ulcer over the past week. They're having issues in terms of dressing changes and managing increased drainage and the patient also has a persistent and productive cough with mucus being expelled from the tracheostomy site. Of note, the caregiver states that she has been attempting to liaise with Dr. Lopez's office, ENT surgery at , regarding a follow up appointment to discuss reconstructive surgery in hopes of addressing the chronic skin contractures that are contributing heavily to the refractory nature of this neck ulcer. 10/23/16. Seen by Finn Felton PA-C. The patient reports no increase in pain or drainage from her neck ulcer. Her two ulcers have bridged into one ulcer. She has no new news regarding a surgical revision. 10/10/16. Seen by Dr. Cornell.The patient does not report increased pain or drainage associated with the chronic soft tissue neck radiation ulcers since her last visit. Her culture from the last visit grew diphtheroids and she's been applying topical gentamicin as recommended. According to her caregiver they have still not heard back regarding an appointment with her surgeon who is planning a revision for the stenosed tracheostomy site noting the tube is contributing significantly to the ulcer formation. She also does not report significant pain or drainage associated with the superficial abdominal abscess noted at her last visit. 10/03/16. Seen by Dr. Cornell. The patient continues to report some pain associated with the chronic neck soft tissue radiation ulcers. The patient caregiver feels the proximal ulcer continues to increase in size. They have not yet scheduled an appointment for revision surgery for the tracheostomy as was discussed last week. 09/26/16. Seen by Dr. Cornell. The patient continues to report some pain as well as persistent drainage associated with the chronic right neck soft-tissue radiation ulcers. 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 He is planning for a revision surgery to try to address this issue in the near future. 09/19/16. Seen by Dr. Cornell. The patient and her brother continue to report some pain associated with the chronic neck nonpressure ulcers but no increased drainage and they've been changing the silicon dressings as recommended to protect the soft-tissue radiation injured skin and protect against abrasion caused by the tracheosteomy tube. Of note, the patient feels as though the stoma may gradually be tightening as she continues to have some difficulty replacing the tube after taking it out. She also reports some persistent productive coughing and nasal drainage in the evenings and through the night and feels it may be related to allergies. 09/01/16. Seen by Dr. Cornell. The patient's brother who's present today reports that the patient's silicon dressings are being changed less frequently than recommended and in washing them the adherence is deteriorating which may be leading to loss of function in terms of protecting the underlying irradiated skin and neck ulcers. She does not report increased drainage or pain associated with the neck ulcers today. 08/28/16. Seen by Dr. Cornell. The patient removed her tracheostomy tube in clinic today and is having difficulty replacing it. She's a bit anxious at the time of exam but is breathing without distress or audible stridor. Regarding her chronic neck soft tissue radiation ulcers, there's no new issues to report and she's been dressing them as recommended. 08/21/16. Seen by Dr. Cornell. The patient reports continued pain and drainage associated with the chronic soft tissue radiation ulcer along the margin of her tracheostomy stoma. She and her caregiver are dressing it as recommended and she's completed her course of antibiotics those treating the recently cultured MRSA. 08/15/16. Seen by Dr. Cornell. The patient reports increased pain associated with the chronic soft tissue radiation neck ulcers since her last visit and her caregiver reports some thick overlying drainage around the mid-line ulcer adjacent to the tracheostomy stoma. She does not report fevers or feeling unwell however and has been applying topical antibiotic to the ulcers as recommended. 08/08/16. Seen by Dr. Cornell. The patient reports continued pain associated with the chronic anterior neck non-pressure ulcers and they've been applying topical gentamicin to treat the recurrent MRSA positive wound cutlures. She's also wearing her silicon dressing as recommended to help protect the soft tissue radiation injury of the skin from abrasion caused by her tracheostomy tube strap. 08/01/16. Seen by Dr. Cornell. The patient's caregiver reports improvement in terms of pain and drainage associated with the chronic neck ulcers. They've been applying topical gentamicin as recommended for the chronic wound infections. 07/23/16. Seen by Dr. Cornell. The patient's caregiver reports improvement in terms of pain and drainage associated with the chronic neck ulcers overlying the soft tissue radiation injury that follow treatment for her laryngeal cancer years ago. They've been applying topical gentamicin as recommended for the chronic wound infections. 07/09/16. Seen by Finn Felton PA-C. The patient reports she has run out of the silicone strips that were fabricated by [employer] to reduce abrasion from her laryngostomy collar. She is using scar fade strips which are not staying in place. Her neck ulcers continue to be present under the collar. 06/25/16. Seen by Dr. Cornell. The patient's caregiver reports improvement in terms of pain and drainage associated with the chronic neck ulcers. They've been applying topical gentamicin as recommended for the chronic wound infections. 06/11/16. Seen by Dr. Cornell. The patient reports improvement in terms of pain and drainage associated with the chronic neck ulcers. She completed her course of ciprofloxacin which was treating the recurrent ulcer infections and she continues to apply topical gentamicin to the ulcer beds. 06/04/16. Seen by Dr. Cornell. The patient continues to report some pain and minimal drainage associated with the chronic neck ulcers are complicated by underlying soft tissue radiation injury. She was just discharged from the hospital for tracheobronchitis and continues on ciprofloxacin with cultures that have grown Pseudomonas, Staph, and Haemophilus. She does not report adverse side effects from antibiotics nor fevers or feeling unwell today although she continues to have a mild cough. 05/26/16. Seen by Finn Felton PA-C. The patient reports no increase in drainage or pain from her neck ulcers. 05/16/16. Seen by Dr. Cornell. The patient does not report significant pain nor drainage associated with the recurrent neck soft tissue radiation ulcers since her last visit. She's been applying topical gentamicin as recommended and wearing the silicon dressings to protect from the trach tube strap rubbing on the irradiated skin.Also, her wound culture from the last visit grew MSSA. 05/09/16. Seen by Dr. Cornell. The patient feels her recurrent soft tissue radiation ulcers over the mid and left aspects of her neck are painful and draining for the past week. She reports wearing her silicon dressing but does not have it in place all of the time and has been leaving her tracheostomy tube strap off for extended periods during the day to help prevent abrasion. She's been applying topical gentamicin to the ulcers but is not currently on systemic antibiotics. 04/29/16. Seen by Finn Felton PA-C. The patient reports continued compliance with her silicone skin protector that she wears under her collar. She reports improvement in her neck ulcers, however she ran out of supplies a few days ago and now reports worsening of the ulcers. 04/11/16. Seen by Dr. Cornell. The patient reports decreased pain and drainage associated with the chronic neck non-pressure ulcers over the patient week and she's applying topical gentamicin to treat the chronic MRSA wound infection as recommended. She's also using silicon dressings to help better protect the soft tissue radiation injury to the neck which is heavily implicated in the recurrent and refractory nature of the ulcers. 04/04/16. Seen by Dr. Cornell. The patient reports an increase in the size and pain associated with the left neck non-pressure ulcer since her last visit. She's applying gentamicin ointment to all of the ulcers a recommended and using the silicon dressings to help prevent abrasion caused by the trach tube strap. 03/28/16. Seen by Dr. Cornell. The patient reports decreased pain and drainage associated with the chronic neck non-pressure ulcers over the patient week and she's restarted use of the silicon dressings again to protect the irradiated skin that's been breaking down under the trach strap and contributing to the recurrent and refractory nature of the ulcers. 03/21/16. Seen by Dr. Cornell. The patient reports decreased pain and drainage associated with the chronic neck non-pressure ulcers over the patient week and she continues applying topical gentamicin to treat the chronic MRSA wound infection. 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 03/13/15. Seen by Dr. Cornell. The patient reports decreased pain and drainage associated with the chronic neck non-pressure ulcers over the patient week since starting on doxycycline for a recurrent MRSA wound infection. She's now using silicon dressings to protect the irradiated skin over the neck that resulted from radiation therapy treating laryngeal cancer. She does not report adverse effects of the doxycycline and is also applying topical gentamicin daily to the ulcer sites. 03/06/16. Seen by Dr. Cornell. The patient reports persistent pain associated with the recurrent neck non-pressure ulcers and staff report they're larger and are draining based on the dressings. 02/28/16. Seen by Dr. Cornell. The patient returns with new ulcers overlying her soft tissue radiation neck injury that resulted following treatment for laryngeal cancer. She states she ran out of the silicon dressings she uses to protect the area from her trach tube strap and after this the ulcers appeared and are quite painful. Their draining however she does not report fevers. 11/28/15. Seen by Dr. Cornell. 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 11/21/15. Seen by Dr. Cornell. The patient reports some minimal pain associated with the chronic neck soft tissue radiation ulcer since her last visit. She also complains of right ear pain and has asked me to have look in the ear as it feels like there may be a foreign body present. She also reports a mild cough, sore throat, and feeling a bit unwell in general. 11/14/15. Seen by Dr. Cornell. The patient reports moderate pain but no significant drainage associated with the left neck soft tissue radiation ulcer since her last visit. 10/31/15. Seen by Dr. Cornell. The patient reports some pain associated with the left neck soft tissue radiation ulcer but no increased drainage from either ulcer nor pain associated with the middle soft tissue radiation ulcer. Her caregiver notes that they're running out of the silicon dressings and they've become nearly prohibitively expensive. 10/12/15 Seen by Finn Felton PA-C. The patient returns to our clinic after reconstructive scar- revision surgery on her radiation damaged neck. She has wounds that have been left to close by secondary intention and are slow to heal. In addition, her silicone strips that help hold her laringostomy collar in place continue to work well for her. 09/07/[address] Cornell. The patient presents with a new rash over the right neck overlying the soft tissue radiation injury. Of note, her very chronic wounds at the same site were recently healed. She dose not report pain, drainage, or skin breakdown associated with the rash. 08/24/[address] Cornell. The patient does not report pain or drainage associated with the chronic neck soft tissue radiation ulcers over the past few days and she's using the silicon dressings to cover the ulcers. 08/15/[address] Cornell. The patient nor her caregiver report significant pain or drainage from either the left or right neck soft tissue radiation ulcers over the past week and she's received her silicon dressings that are being used to prevent abrasion to the skin caused by her laryngostomy tube strap. 08/09/[address] Cornell. 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 Otherwise the right neck ulcers remain relatively stable and have minimal drainage over the past week. 08/02/[address] Cornell. The patient reports minimal discomfort associated with the chronic neck soft tissue radiation ulcers and her caregiver feels they've improved considerably over the past week while applying gentamicin ointment and using the silicon dressing to prevent abrasion from the trach strap. 07/26/[address] Cornell. The patient reports only moderate discomfort and minimal drainage associate with her remaining soft tissue radiation ulcers of the neck. 07/19/[address] Cornell. The patient's caregiver reports increased drainage on the dressings covering the neck soft tissue radiation ulcers and the patient reports some increased pain at the ulcer sites. They're also running out of the silicon dressings they' ve been using to protect the ulcers from abrasion caused by the overlying trach strap. She does not report any problems regarding the chronic left upper arm wound. 07/12/[address] Cornell. The patient does not report increased pain or drainage associated with her chronic neck soft tissue radiation ulcers and she's been using her silicon wound dressings daily. She feels her ulcers are much less painful since changing to the new dressings. 07/05/[address] Cornell. The patient reports a significant improvement in pain regarding her chronic neck soft tissue radiation ulcers since starting to use adherent silicon dressings to prevent abrasion caused by her trach strap. She does not report significant drainage from the ulcers. 06/22/[address] Cornell. The patient continues to report persistent pain associated with the chronic neck soft tissue radiation ulcers. 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 06/12/15 Seen by Finn Felton PA-C. The patient reports continued pain from her radiation neck ulcers. 06/05/15 Seen by Finn Felton PA-C. The patient reports continued pain and stable drainage from her neck radiation ulcers. She continues to use her favored dressings instead of ones that we have recommended for her. 05/21/15 Seen by Finn Felton PA-C. The patient reports continued pain and no change in drainage from her neck radiation ulcers and her arm and chest wounds. 05/08/15 Seen by Finn Felton PA-C. The patient reports continued pain and stable drainage from her neck radiation ulcers. Flores from [facility] attended part of the appointment to try fitting her for the laryngectomy collar protective prosthetic. 04/25/[address] Cornell. The patient continues to report significant pain associated with the chronic soft tissue radiation neck ulcers and the staff report at least moderate drainage on her dressings today. She does not report fevers or feeling unwell otherwise. 04/11/[address] Cornell. The patient been on levofloxacin and doxycycline for Pseudomonas and MRSA positive wounds cultures taken from her soft tissue radiation ulcers over the neck and around the laryngostomy wound. She still reports pain associated with the ulcers but indicates it's not as bad as last week. 04/05/[address] Cornell. The patient reports persistent pain associated with her neck soft tissue radiation ulcers. She's currently on levofloxacin and doxycycline for the Pseudomonas and MRSA positive culture taken at the last visit and she does not report adverse side effects. 03/28/2015 Seen by Finn Felton PA-C. The patient continues to complain of neck ulcer pain. In addition she again asks today why are they hurting. She has not been compliant with any of our attempts at specialized laryngectomy collar padding or dressings. 03/21/2015 Seen by Finn Felton PA-C. The patient returns with stable 6-7/10 constant pain from the radiation ulcers on her neck. She continues on Doxycycline and has finished her course of prednisone for a URI as prescribed by her PCP. He has recently not been able to keep the Radiagel sheets attached to her neck or tracheostomy collar and has gone back to using Xeroform gauze. 02/19/15 Seen by Finn Felton PA-C. The patient returns for evaluation of her radiation ulcers of the neck. She reports continued pain and her most recent dressings that we have trialed did not stay in place. 02/12/15 Seen by Finn Felton PA-C. The patient reports continued neck pain from her radiation ulcers as well as tightness in her surrounding neck tissues. She reports the pain is exacerbated by rubbing of her tracheostomy tube macias and by any palpation or instrumentation. Drainage has been minimal. 02/05/15 Seen by Finn Felton PA-C. The patient presents today with a new wound on her left lateral neck, on her irradiated tissue. This wound is 01/24/[address] Cornell. The patient reports a cough and feeling unwell the past few days. She continues on doxycycline and levofloxcacin for the recent MRSA and Pseudomonas positive wound culture. Of note, she arrives today with gauze dressings over her next ulcers as opposed to foam which has been recommended. 01/17/[address] Cornell. The patient's been started on doxycycline and levofloxacin for her wound culture from the last visit that grew MRSA again plus Pseudomonas which is new. She reports having a cough and low grade fever also and the staff report the left neck ulcer dressings as being quite wet. 01/12/[address] Cornell. The patient indicates the neck ulcer pain is a 6-7/ 10 today and states she's been adhering to our dressing change recommendations. She's not currently on antibiotics and does not report fever although she feels a bit under the weather. 01/05/[address] Cornell. The patient complains of 4/10 pain at the site of her remaining chronic neck ulcers. 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 12/18/14 Seen by Finn Felton PA-C. The patient continues to have difficulty securing her dressings and keeping them in place under her tracheostomy collar. She is planning on going deer hunting and will be away from our clinic for over 1 week. 12/12/[address] Cornell. The patient complains of significant right ear pain. Her left neck ulcer culture from the last visit grew MRSA and she's not currently on antibiotics at this time. Of note, the foam that we placed around the tracheostomy tube to prevent abrasion was not in place on the patient's arrival today. 12/08/[address] Cornell. The patient complains of some persistent pain at the site of the left neck ulcer but does not report fever or increased drainage. Of note, she's not changed her dressing since her last visit 3 days ago. 11/28/14 Seen by Finn Felton PA-C. The patient again reports right ear pain without drainage or disturbance in hearing. The dressing on her head wound has stayed in place and her neck dressings lasted less than 24hrs in place. Scalp wound pain has decreased. 11/28/14 Seen by Finn Felton PA-C. The patient has seen her PCP for her right ear issues and he has prescribed her Cefuroxime, which she is currently taking. She has kept her scalp dressing in place and reports continued neck pain and a new neck wound on the left. 11/14/14 Seen by Finn Felton PA-C. The patient's right sided neck wound and scalp wound are much improved today after she has been keeping her head wound covered and has loosened her trach collar. Both wounds are reportedly less painful than before. 11/07/14 Doc Z Surg: patient returns for follow-up of the radiation injury and mechanical abrasions wounds of the neck laterally and anteriorly adjacent to the tracheostomy straps which appear to have been chafing on this sensitive skin in the field of radiation. The padded protective dressing has been utilized since her last visit and shows marked improvement in all of the wounds. Also the scalp abrasions which appear to be fingernail scrapings have also improved markedly after the patient educated to avoid fingernails scratching on the scalp area. Question was raised regarding the possibly poor fitting tracheostomy tube but this appears normal and not problematic to my examination. At present I do not see any need for ENT reevaluation of the [id number] tracheostomy site. 10/26/[address] Cornell. The patient complains of recurrent right ear pain that's constant over the past week but does not report fever, sweats, or drainage from the ear. Her wound cultres from the scalp and neck ulcers grew MRSA on 10/04/14. She continues to report pain at these sites and has been unable to maintain dressings as recommended due to discomfort and the fact the scalp dressing falls off. 10/12/14 Seen by Finn Felton PA-C. The patient reports ear pain after completing HBOT. Her wounds still feel tight around her neck but are otherwise stable and more comfortable with her new foam neck dressings. 10/04/[address] Cornell. The patient feels the pain associated with her neck and scalp ulcers is improved and only noticeable intermittently. She arrived today with foam dressings over the neck ulcers which we started utilizing last week to minimize trauma from the tracheostomy tube harness to the skin and ulcers beneath. 09/27/[address] Cornell. The patient feels her neck ulcers and scalp wounds are less painful however the staff report that the dressing plan we implemented to help prevent abrasion to the neck ulcers does not seem to have been continued after the patient left clinic last week. She's now off of antibiotics and does not report increased drainage. 09/20/[address] Cornell. The patient feels her scalp and neck ulcer pain are improving since she's been on IV daptomycin. She also had a doppler study yesterday that rule out a left arm DVT however she still complains of swelling and discomfort in the arm. 09/06/[address] Cornell. The patient complains of continued pain and drainage associated with her scalp and neck ulcers. She's no longer on antibiotics and recently grew Enterococcus and resistant coag negative Staph from the ulcer sites respectively. 08/30/[address] Cornell. The patient reports continued pain at the neck and scalp ulcers and her scalp wound grew Enterococcus on 08/23/14. She's taking clindamycin and completed a course of azithromycin that were started in the ER due to a recurrent URI. 08/16/14 Seen by Finn Felton PA-C. The patient continues to take Keflex for her scalp wound bacterial infection. She reports it is now more painful and draining more than before. Her neck radiation wounds continue to feel tight. 08/14/14 Seen by Finn Felton PA-C. The patient complains of right ear pain and fullness which started today. She reports feeling like she might have a cold coming on. 08/09/[address] Cornell. The patient complains of persistent pain at the site of the neck ulcers and worsening pain at the scalp ulcer. She's taking doxycycline based on the most recent MSSA wound culture sensitivities from the neck ulcer and does not report any adverse side effects. 07/08/[address] Cornell. The patient feels the neck ulcer pain is improving and she's completed her course of doxycycline that was started last week. She still complains of significant pain a the site of the scalp lesion however. Her wound culture from 07/28 grew MSSA sensitive to doxycycline. 07/26/[address] Cornell. The patient complains of increased pain at the neck ulcers as well as the scalp lesion. She does not report increased drainage, fever, cough, or chills and states her previously reported right ear pain has improved. 07/14/[address] Cornell. The patient reports right ear pain with a sore throat but no fevers or cough. 07/11/14 Seen by Finn Felton PA-C. The patient reports less scalp pain and no drainage from her scalp wound. She continues to report a pulling type pain in and around her neck wounds. 07/04/14 Seen by Finn Felton PA-C. The patient has cut her fingernails short and reports that her scalp wound is hurting and itching less. She reports a new wound over an old abdominal scar today. It has been present for 5 days and she is not sure how it occurred. 06/20/14 The patient feels her neck ulcer pain as well as the scalp lesion pain have improved since starting doxycycline. She continues to apply hydrogel and Xeroform to the neck ulcers to keep them moist. Otherwise she's tolerating HBOT without difficulty and has made significant progress in the healing of the neck ulcers throughout this most recent series of dives. 06/13/14 The patient indicates that her neck ulcers 'feel tight' and she still has some discomfort at the scalp lesions. She also complains of significant pruritis in the area of the scalp lesions. She's been taking taking doxycycline for the past week to treat a MRSA positive culture of the scalp ulcer. 06/06/14 The patient reports continued pain from all of her wounds and frustration that her scalp wound has not healed despite her not scratching it. 05/31/14 The patient's here for HBOT today but complains of new left facial pain over the angle of the mandible that started yesterday. She does not complain of ear pain or an dental or intraoral pain but has been treated in the hospital recently for recurrent pneumonia. She's also been reviewed in the past 3 months by her oncologist and reportedly is cancer free. 05/30/14 The patient does not report increased pain or drainage from her neck wounds nor scalp lesion. 05/18/14 The patient complains of significant pain at the left 3rd finger wound as well as her chronic scalp wound. Otherwise she does not report significant pain nor drainage from the neck wounds. 05/12/14 The patient does not report increased pain or drainage from her neck ulcers nor the wound on the scalp. 05/04/14 The patient reports increased pain at the left neck wound and apparently the barrier dressing slipped down and her guaze became adherent resulting in a skin tear upon removal. Otherwise she continues to complain of pain at both neck wounds and the scalp wound. 05/02/14 The patient was seen today in the HBOT treatment room for complaints of a productive cough. She was recently discharged from the hospital with a diagnosis of tracheobronchitis and is finishing a course of Levaquin. Cough is described as yellow and thick and is difficult to clear from her tracheostomy. 04/21/14 The patient complains of persistent ear pain in the right ear despite using antibiotic drops Rx'd by her ENT provider last week. She does not report drainage or fever. 04/18/14 The patient states her cough is improving and she's still on antibiotics from her recent admission for pneumonia. She does not report increased drainage or pain from the neck ulcers but states her right ear pain has returned. She was seen by ENT who felt the lesion in the external canal was traumatic and she was given an Rx for ear drops which she states she's been using. She also reports recurrence of the painful left scalp wound that was recently healed. 04/11/14 The patient complains of a cough productive of green sputum for the past few days that's particularly worse when lying flat. She indicates that she feels generally unwell and weak and is questioning whether she can tolerate HBOT today. 04/05/14 The patient continues to complain of right ear pain however does not report bleeding from the ear today. Of note, she was reviewed for this problem last week and a shallow ulcer in the right external ear canal was the only finding. 03/30/14 The patient reports continued 5/10 pain from her neck wound which is described as a constant, pulling type pain, which is exacerbated by flexing, extending or rotating her neck. 03/29/14 The patient completed her HBOT dive today and now complains of blood draining from the right ear. She does not report pain now nor during the dive today. 03/23/14 The patient reports increased pain from her medial neck wounds as well as from her scalp wound. The pain is described as a throbbing and sometimes pulling pain that is constant in nature and has no exacerbating factors, nor is it associated with any activity. She does not report fever, chills or increased wound drainage. Additionally the patient reports her [facility] doctors are considering a reconstructive surgical revision of her neck once her current wounds heal. She brings with her today a note from her [facility] doctors on a prescription pad, on which is written Please continue hyperbaric oxygen therapy. 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/14) Ear pain (right side; recurrent) Chronic ulcer (scalp; Enterococcus positive culture on 08/23/14; MRSA positive on 10/04/14) Complaints and Symptoms This information was obtained from the patient Patient complains of: General Notes: I have reviewed and concur with the Review of Systems and Past Family Social History documents completed by the clinician, I have reviewed and concur with the Wound Assessment document completed by the clinician Ear/Nose/Mouth/Throat: Ear Pain Integumentary (Hair/Skin/Nails): Open Sore Musculoskeletal: Deformities, Muscle Weakness Prior Wound History: Bleeding, Drainage, Erythema, Pain Patient denies complaints or symptoms related to: Cardiovascular (Central): Irregular heart beat Constitutional Symptoms (General Health): Chills, Fever, Marked Weight Change Ear/Nose/Mouth/Throat: Hearing Loss / Aid Gastrointestinal (GI): Nausea / Vomiting, Stomach/abdominal pain Hematologic/Lymphatic: Bleeding / Clotting Disorders, Bleeding Tendency Neurological: Loss of Protective Sensation Prior Wound History: Malodor Respiratory: Cough, Oxygen Use, Shortness of Breath OBJECTIVE Constitutional Vital signs reviewed and noted. Well developed. Alert. Clean appearing.. Height/ Length: 66 in (167.64 cm), Weight: 227.7 lbs (103.5 kgs), BMI: 36.7, Temperature: 97.7 ?F ( 36.5 ?C), Pulse: 73 bpm, Respiratory Rate: 18 breaths/min, Blood Pressure: 136/80 mmHg, Pulse Oximetry: 96 %. Ears, Nose, Mouth, and Throat: No clinically significant hearing loss on informal examination. Neck: Chronic skin contractures stable. Respiratory: productive cough during exam. Gastrointestinal (GI): Obese. Nondistended.. Integumentary (Hair, Skin) Mild periwound erythema without warmth. Refer to appropriate clinician wound documentation for this visit; anterior neck ulcer extends to subcut with base covered with minimal friable red granulation and wet slough; appears larger than on previous review. Wound #36 Right, Proximal Neck is an acute Full Thickness Radiation Wound and has received a status of Not Healed. Subsequent wound encounter measurements are 5.5cm length x 1.2cm width x 0.1cm depth, with an area of 6.6 sq cm and a volume of 0.66 cubic cm. No tunneling has been noted. No sinus tract has been noted. No undermining has been noted. There is a moderate amount of seropurulent drainage noted which has no odor. The patient reports a wound pain of level 7/10. The wound margin is attached. Wound bed has No epithelialization, No eschar, Yes slough, Yes bright red, pink, firm granulation. The periwound skin texture is normal. The periwound skin moisture is normal. The periwound skin color is normal. The temperature of the periwound skin is WNL. Periwound skin does not exhibit signs or symptoms of infection. Local Pulse is N/A. Neurological: Cranial nerves grossly intact with symmetric function normal by informal observation.. ASSESSMENT Active Problems ICD-10 (Encounter Diagnosis) S11.89XD - Other open wound of other specified part of neck, subsequent encounter (Encounter Diagnosis) L59.8 - Other specified disorders of the skin and subcutaneous tissue related to radiation (Encounter Diagnosis) L98.492 - Non-pressure chronic ulcer of skin of other sites with fat layer exposed (Encounter Diagnosis) R05 - Cough (Encounter Diagnosis) L08.9 - Local infection of the skin and subcutaneous tissue, unspecified PROCEDURES Wound #36 Wound #36 (Radiation Wound) is located on the right, proximal neck. A skin/ subcutaneous tissue level surgical debridement with a total area debrided of 6.6 sq cm was performed by Duy Cornell MD. Subcutaneous was removed along with devitalized tissue: slough. The following instrument(s) were used: curette. Pain control was achieved using 4% Lido. A time out was conducted prior to the start of the procedure. A minimal amount of bleeding was controlled with n/a. The procedure was tolerated well with a pain level of 0 throughout and a pain level of 0 following the procedure. Post Debridement Measurements: 5.5cm length x 1.2cm width x 0.2cm depth; with an area of 6.6 sq cm and a volume of 1.32 cubic cm; Additional Information Muscle fascia or bone removed and sent to pathology?: No PLAN Wound Orders: Wound #36 Right, Proximal Neck Anesthetic Topical Xylocaine to wound bed. - Lidocaine in clinic only. Cleanser Cleanse Wound: - Normal saline and gauze. May use distilled water at home. May Shower. - Please change dressings immediately after showering. Topical Treatments Antibiotic/Antimicrobial Ointment/Cream. - Gentamicin Ointment Dressings Primary dressing: - Scar therapy strips Cover and secure with: - Tape Change Dressing: - Every other day. Follow-Up Appointments Return Appointment: - - One week. Other information: If you develop fever, chills, increased pain, drainage, redness or swelling please call our office. If after hours, respond to the ER. Should you experience any significant changes in your wound(s) or have any questions regarding your home care instructions please contact the wound center @ [phone]. If after hours, contact your primary care physician or go to the hospital emergency room. Scribing Attestation I attest, as the nurse, that I scribed these orders for the physician. Laboratory: Bacteria identified in Wound by Culture General Notes: We will call with any positive wound cultures requiring oral antibiotics I've reviewed the clinician's documentation and agree with the evaluation and plan as written. In addition, the patient's ulcer demonstrates evidence of non-viable devitalized tissue which will continue to benefit from sharp debridement to help promote granulation and expedite healing. Also, I've cultured the neck ulcer and started treating a superficial infection with topical gentamicin. We'll continue using Scar Away silicone dressings to protect the damaged skin from the overlying tracheostomy strap and tube also and I'll consider starting and oral antibiotic pending the culture results. Electronic Signature(s) Signed By: Date: Duy Cornell MD 09/17/2017 15:39:04 Entered By: Duy Cornell on 09/17/2017 11:49:58
== END ==
PROVIDERS: Visit Provider Internal Medicine
DX: S11.89XD Other open wound of other specified part of neck, subsequent encounter (principal); L59.8 Other specified disorders of the skin and subcutaneous tissue related to radiation; L98.492 Non-pressure chronic ulcer of skin of other sites with fat layer exposed; R05 Cough; L08.9 Local infection of the skin and subcutaneous tissue, unspecified
CPT/HCPCS: 11042; 87070; 87075; 87077; 87147; 87186; 87205

== ENCOUNTER 2017-09-21 15:12 | Observation (INO) | payer OTHER, MEDICAID, SELFPAY ==
[2017-09-21] VITALS (18 sets, daily range): BP systolic 90–156; BP diastolic 46–97; PULSE 89–118; RESP 14–32; TEMP 36.4–37.7; O2SAT 91–99; BMI 32.3
--- NOTE | 2017-09-21 15:34 | DI.RAD.S_ITS ---
PROCEDURE: XR CHEST 1V INDICATIONS: chest pain TECHNIQUE: One view of the chest was acquired. COMPARISON: [facility], , CHEST 2 VIEW, 06/24/2017, 14:46. FINDINGS: Surgical changes and devices: Numerous surgical clips over the lower neck bilaterally. Lungs and pleura: Mild elevation and eventration right hemidiaphragm. No pleural effusions or pneumothorax. Lungs are clear. Mediastinum: Mediastinal contours appear normal. Heart size is normal. Bones and chest wall: No suspicious bony lesions. Overlying soft tissues appear unremarkable. IMPRESSION: No acute cardiopulmonary abnormality Dictated by: Chucky Buchanan M.D. on 09/21/2017 at 16:24 Approved by: Chucky Buchanan M.D. on 09/21/2017 at 16:34
[2017-09-21] MEDS: methylPREDNISolone 125 MG/2 ML VIAL IV (16:07)
--- NOTE | 2017-09-21 16:24 | ED.ALLEREA ---
HPI - Allergic Reaction <Kwabena Hernandez, DO - Last Filed: 09/30/17 01:17> General Chief complaint: Allergic Reaction Stated complaint: Allergic reaction Time Seen by Provider: 09/21/17 15:31 Source: patient and EMS Mode of arrival: EMS Limitations: other ( Trach) History of Present Illness HPI narrative: 56-year-old female brought in by EMS after she sustained a bee sting to her right arm. She states that she thinks she has had a reaction to bee stings when she was little. Unknown if this was an anaphylactic reaction. When EMS was called patient was reportedly in respiratory distress. She did receive 2 doses of epinephrine and Benadryl EN route. This was reported to have improved her symptoms. She has a chronic respiratory disease with a trach in place. Related Data Home Medications Medication Instructions Recorded Confirmed albuterol sulfate 1 dose INHALATION QIDP PRN #180 01/25/16 09/21/17 docusate sodium 100 mg PO BID #0 01/25/16 09/21/17 ferrous gluconate 324 mg PO QDAY #0 08/28/16 09/21/17 omeprazole 20 mg PO QDAY #0 08/28/16 09/21/17 acetaminophen 650 mg PO Q6HP PRN #0 10/29/16 09/21/17 amitriptyline 25 mg PO HS #0 01/22/17 09/21/17 ascorbic acid (vitamin C) 500 mg PO QDAY #0 06/10/17 09/21/17 fexofenadine 180 mg PO QDAY #0 06/10/17 09/21/17 nystatin 1 dose PO DIRECTED #0 06/10/17 09/21/17 sodium chloride 0.9 % 1 vial QID PRN #0 06/10/17 09/21/17 citalopram 40 mg PO DAILY 09/21/17 09/21/17 estradiol 2 mg PO DAILY 09/21/17 09/21/17 lisinopril 10 mg PO DAILY 09/21/17 09/21/17 tramadol 50 mg PO Q6HP PRN 09/21/17 09/21/17 Allergies Allergy/AdvReac Type Severity Reaction Status Date / Time hydrocodone Allergy Intermediate RASH/HIVES Verified 09/21/17 16:56 Penicillins Allergy Intermediate RASH/HIVES Unverified 06/17/17 12:06 metronidazole Allergy Mild RASH Unverified 06/17/17 12:06 acetaminophen [ACETAMINOPHEN] Allergy Unknown GI UPSET Unverified 06/17/17 12:06 diphenhydramine Allergy Unknown Unverified 06/17/17 12:06 [DIPHENHYDRAMINE] ibuprofen Allergy Unknown Unverified 06/17/17 12:06 oxycodone [OXYCODONE] Allergy Unknown Unverified 06/17/17 12:06 venom-wasp Allergy Verified 09/21/17 16:57 ranitidine AdvReac Intermediate SOB/DIZZY Unverified 06/17/17 12:06 sulfamethoxazole AdvReac Mild GI UPSET Unverified 06/17/17 12:06 [From Bactrim] trimethoprim [From Bactrim] AdvReac Mild GI UPSET Unverified 06/17/17 12:06 fentanyl [FENTANYL] AdvReac Unknown vomiting Unverified 06/17/17 12:06 ANTACIDS AdvReac Unknown Uncoded 06/17/17 12:06 Review of Systems <Kwabena Hernandez DO - Last Filed: 09/30/17 01:17> Constitutional Reports body ache(s), Denies fatigue, Denies fever(s) and Denies headache(s) ENT Ears, Nose, Mouth, and Throat: Reports dizziness and Denies headache(s) Cardiovascular Denies chest pain, Denies palpitations and Reports dyspnea Respiratory Reports change in phlegm color, Reports cough, Reports dyspnea and Reports wheezing Gastrointestinal Gastrointestinal: Denies nausea and Denies vomiting Integumentary/Breasts Denies new lesions Neurologic Reports dizziness and Denies headache(s) Endocrine Denies fatigue and Denies palpitations Hematologic/Lymphatic Denies easy bleeding and Denies easy bruising Allergic/Immunologic Reports wheezing Exam <Kwabena Hernandez DO - Last Filed: 09/30/17 01:17> Initial Vital Signs Initial Vital Signs: Vital Signs Pulse Rate 109 H 09/21/17 15:00 Respiratory Rate 18 09/21/17 15:00 Blood Pressure 156/77 H 09/21/17 15:00 Pulse Oximetry 94 09/21/17 15:00 Const General: cooperative, well developed and No acute distress Orientation: alert HENNH Head: normal to inspection, normocephalic and atraumatic Neck Other: Chronic scars in the anterior neck with a trach Resp Effort & Inspection: cough, no grunting and not labored Auscultation: wheezes ( bilateral wheezing) Cardio Rate: tachycardic Pulses: radial pulses present Skin Other: minimal swelling to the right elbow over the area where the patient was stung by the insect. No surrounding erythema Neuro General: alert and awake Other: patient communicates by writing Extrem Other: patient able to move right elbow fully <Milton De La Cruz MD - Last Filed: 09/21/17 19:43> Initial Vital Signs Initial Vital Signs: Vital Signs Pulse Rate 109 H 09/21/17 15:00 Respiratory Rate 18 09/21/17 15:00 Blood Pressure 156/77 H 09/21/17 15:00 Pulse Oximetry 94 09/21/17 15:00 Course <Kwabena Hernandez DO - Last Filed: 09/30/17 01:17> Orders Ordered: Discontinued Medications Acetaminophen (Tylenol) 650 mg PO Q6H PRN PRN Reason: Pain, Mild Albuterol (Ventolin) 2.5 mg INH NOW ONE Stop: 09/21/17 19:20 Last Admin: 09/21/17 19:30 Dose: 2.5 mg Albuterol (Ventolin) 2.5 mg INH [id number] PRN PRN Reason: Shortness Of Breath Albuterol/Ipratropium (Duoneb) 3 ml INH NOW ONE Stop: 09/21/17 16:33 Last Admin: 09/21/17 16:45 Dose: 3 ml Albuterol/Ipratropium (Duoneb) 3 ml INH NOW ONE Stop: 09/21/17 16:34 Last Admin: 09/21/17 16:45 Dose: 3 ml Albuterol/Ipratropium (Duoneb) 3 ml INH NOW ONE Stop: 09/21/17 17:39 Last Admin: 09/21/17 18:05 Dose: 3 ml Albuterol/Ipratropium (Duoneb) 3 ml INH NOW ONE Stop: 09/21/17 19:17 Last Admin: 09/21/17 19:17 Dose: 3 ml Amitriptyline HCl (Elavil) 25 mg PO BEDTIME [facility] Citalopram Hydrobromide (Celexa) 40 mg PO DAILY [facility] Diphenhydramine HCl (Benadryl) 50 mg IV NOW ONE Stop: 09/21/17 19:20 Last Admin: 09/21/17 19:25 Dose: 50 mg Diphenhydramine HCl (Benadryl) 25 mg IV Q6HR PRN PRN Reason: Allergic Reaction Last Admin: 09/22/17 00:05 Dose: 25 mg Docusate Sodium (Colace) 100 mg PO BID [facility] Estradiol (Estrace) 2 mg PO DAILY [facility] Hydromorphone HCl (Dilaudid) 1 mg IV NOW ONE Stop: 09/21/17 20:18 Last Admin: 09/21/17 20:22 Dose: 1 mg Sodium Chloride (Normal Saline 0.9%) 1,000 mls @ 125 mls/hr IV CONT [facility] Last Infusion: 09/22/17 11:46 Dose: 125 mls/hr Admin: 09/22/17 06:21 Dose: 125 mls/hr Infusion: 09/22/17 05:42 Dose: 125 mls/hr Admin: 09/21/17 21:42 Dose: 125 mls/hr Lisinopril (Zestril) 10 mg PO DAILY [facility] Last Admin: 09/22/17 11:01 Dose: 10 mg Loratadine (Claritin) 10 mg PO DAILY [facility] Last Admin: 09/22/17 11:01 Dose: 10 mg Lorazepam (Ativan) 1 mg IV NOW ONE Stop: 09/21/17 19:20 Last Admin: 09/21/17 19:25 Dose: 1 mg Lorazepam (Ativan) 1 mg PO Q4HR PRN PRN Reason: Anxiety Last Admin: 09/22/17 00:04 Dose: 1 mg Methylprednisolone (Solu-Medrol 125 Mg Vial) 125 mg IV NOW ONE Stop: 09/21/17 15:42 Last Admin: 09/21/17 16:07 Dose: 125 mg Methylprednisolone (Solu-Medrol) 60 mg IV Q8HR [facility] Last Admin: 09/22/17 06:21 Dose: 60 mg Admin: 09/22/17 00:07 Dose: 60 mg Morphine Sulfate (Morphine) 4 mg IV NOW ONE Stop: 09/21/17 17:39 Last Admin: 09/21/17 17:49 Dose: 4 mg Ondansetron HCl (Zofran) 4 mg IV NOW ONE Stop: 09/21/17 16:25 Last Admin: 09/21/17 16:53 Dose: 4 mg Tramadol HCl (Ultram) 50 mg PO Q6H PRN PRN Reason: Pain, Moderate (4-6) Last Admin: 09/22/17 11:04 Dose: 50 mg Admin: 09/22/17 04:54 Dose: 50 mg Admin: 09/21/17 22:55 Dose: 50 mg Vital Signs - 8 hr 09/21/17 15:00 09/21/17 15:22 09/21/17 15:30 Temperature 99.8 F H Pulse Rate 109 H 115 H 102 H Respiratory Rate 18 24 19 Blood Pressure 156/77 H Blood Pressure [Left Arm] 156/77 H 110/63 Pulse Oximetry 94 96 93 09/21/17 16:30 09/21/17 17:07 09/21/17 17:42 Temperature Pulse Rate 99 H 100 H Respiratory Rate 17 18 Blood Pressure Blood Pressure [Left Arm] 130/72 H 141/64 H Pulse Oximetry 99 95 94 09/21/17 18:00 09/21/17 18:07 09/21/17 18:30 Temperature Pulse Rate 98 H 104 H Respiratory Rate 20 Blood Pressure Blood Pressure [Left Arm] 114/55 L 110/46 L Pulse Oximetry 96 95 91 09/21/17 19:00 09/21/17 19:17 09/21/17 19:30 Temperature Pulse Rate 117 H 89 117 H Respiratory Rate 23 18 Blood Pressure Blood Pressure [Left Arm] 150/97 H 150/97 H Pulse Oximetry 94 95 09/21/17 19:31 Temperature Pulse Rate 118 H Respiratory Rate 20 Blood Pressure Blood Pressure [Left Arm] 150/97 H Pulse Oximetry 93 <Milton De La Cruz MD - Last Filed: 09/21/17 19:43> Orders Ordered: Discontinued Medications Acetaminophen (Tylenol) 650 mg PO Q6H PRN PRN Reason: Pain, Mild Albuterol (Ventolin) 2.5 mg INH NOW ONE Stop: 09/21/17 19:20 Last Admin: 09/21/17 19:30 Dose: 2.5 mg Albuterol (Ventolin) 2.5 mg INH [id number] PRN PRN Reason: Shortness Of Breath Albuterol/Ipratropium (Duoneb) 3 ml INH NOW ONE Stop: 09/21/17 16:33 Last Admin: 09/21/17 16:45 Dose: 3 ml Albuterol/Ipratropium (Duoneb) 3 ml INH NOW ONE Stop: 09/21/17 16:34 Last Admin: 09/21/17 16:45 Dose: 3 ml Albuterol/Ipratropium (Duoneb) 3 ml INH NOW ONE Stop: 09/21/17 17:39 Last Admin: 09/21/17 18:05 Dose: 3 ml Albuterol/Ipratropium (Duoneb) 3 ml INH NOW ONE Stop: 09/21/17 19:17 Last Admin: 09/21/17 19:17 Dose: 3 ml Amitriptyline HCl (Elavil) 25 mg PO BEDTIME [facility] Citalopram Hydrobromide (Celexa) 40 mg PO DAILY [facility] Diphenhydramine HCl (Benadryl) 50 mg IV NOW ONE Stop: 09/21/17 19:20 Last Admin: 09/21/17 19:25 Dose: 50 mg Diphenhydramine HCl (Benadryl) 25 mg IV Q6HR PRN PRN Reason: Allergic Reaction Last Admin: 09/22/17 00:05 Dose: 25 mg Docusate Sodium (Colace) 100 mg PO BID [facility] Estradiol (Estrace) 2 mg PO DAILY [facility] Hydromorphone HCl (Dilaudid) 1 mg IV NOW ONE Stop: 09/21/17 20:18 Last Admin: 09/21/17 20:22 Dose: 1 mg Sodium Chloride (Normal Saline 0.9%) 1,000 mls @ 125 mls/hr IV CONT [facility] Last Infusion: 09/22/17 11:46 Dose: 125 mls/hr Admin: 09/22/17 06:21 Dose: 125 mls/hr Infusion: 09/22/17 05:42 Dose: 125 mls/hr Admin: 09/21/17 21:42 Dose: 125 mls/hr Lisinopril (Zestril) 10 mg PO DAILY [facility] Last Admin: 09/22/17 11:01 Dose: 10 mg Loratadine (Claritin) 10 mg PO DAILY [facility] Last Admin: 09/22/17 11:01 Dose: 10 mg Lorazepam (Ativan) 1 mg IV NOW ONE Stop: 09/21/17 19:20 Last Admin: 09/21/17 19:25 Dose: 1 mg Lorazepam (Ativan) 1 mg PO Q4HR PRN PRN Reason: Anxiety Last Admin: 09/22/17 00:04 Dose: 1 mg Methylprednisolone (Solu-Medrol 125 Mg Vial) 125 mg IV NOW ONE Stop: 09/21/17 15:42 Last Admin: 09/21/17 16:07 Dose: 125 mg Methylprednisolone (Solu-Medrol) 60 mg IV Q8HR [facility] Last Admin: 09/22/17 06:21 Dose: 60 mg Admin: 09/22/17 00:07 Dose: 60 mg Morphine Sulfate (Morphine) 4 mg IV NOW ONE Stop: 09/21/17 17:39 Last Admin: 09/21/17 17:49 Dose: 4 mg Ondansetron HCl (Zofran) 4 mg IV NOW ONE Stop: 09/21/17 16:25 Last Admin: 09/21/17 16:53 Dose: 4 mg Tramadol HCl (Ultram) 50 mg PO Q6H PRN PRN Reason: Pain, Moderate (4-6) Last Admin: 09/22/17 11:04 Dose: 50 mg Admin: 09/22/17 04:54 Dose: 50 mg Admin: 09/21/17 22:55 Dose: 50 mg Vital Signs - 8 hr 09/21/17 15:00 09/21/17 15:22 09/21/17 15:30 Temperature 99.8 F H Pulse Rate 109 H 115 H 102 H Respiratory Rate 18 24 19 Blood Pressure 156/77 H Blood Pressure [Left Arm] 156/77 H 110/63 Pulse Oximetry 94 96 93 09/21/17 16:30 09/21/17 17:07 09/21/17 17:42 Temperature Pulse Rate 99 H 100 H Respiratory Rate 17 18 Blood Pressure Blood Pressure [Left Arm] 130/72 H 141/64 H Pulse Oximetry 99 95 94 09/21/17 18:00 09/21/17 18:07 09/21/17 18:30 Temperature Pulse Rate 98 H 104 H Respiratory Rate 20 Blood Pressure Blood Pressure [Left Arm] 114/55 L 110/46 L Pulse Oximetry 96 95 91 09/21/17 19:00 09/21/17 19:17 09/21/17 19:30 Temperature Pulse Rate 117 H 89 117 H Respiratory Rate 23 18 Blood Pressure Blood Pressure [Left Arm] 150/97 H 150/97 H Pulse Oximetry 94 95 09/21/17 19:31 Temperature Pulse Rate 118 H Respiratory Rate 20 Blood Pressure Blood Pressure [Left Arm] 150/97 H Pulse Oximetry 93 MDM - Allergic Reaction <Kwabena HernandezDO - Last Filed: 09/30/17 01:17> Lab Data Attestation: I reviewed the patient's lab results. Result diagrams: 09/21/17 15:55 09/21/17 15:55 Lab Results 09/21/17 09/21/17 Range/Units 15:55 15:55 WBC 11.8 H (4.5-11.0) X10^3/uL RBC 4.18 (4.0-5.2) X10^6/uL Hgb 13.0 (12.0-16.0) g/dL Hct 38.0 (36-46) % MCV 91.0 (80-100) fL MCH 31.1 (26-34) PG MCHC 34.2 (30-36) % RDW 13.5 (11.6-14.8) % Plt Count 267 (150-400) X10^3/uL Neut % (Auto) 76.0 H (50-75) % Lymph % (Auto) 11.5 L (25-40) % Iron % (Auto) 7.4 (3-14) % Eos % (Auto) 3.8 (2-4) % Baso % (Auto) 1.3 (0-2) % Neut # (Auto) 9000 H (1852-5330) /uL Sodium 140 (137-145) mmol/L Potassium 3.3 L (3.4-5.1) mmol/L Chloride 101 (98-107) mmol/L Carbon Dioxide 27 (22-32) mmol/L BUN 13 (7-17) mg/dL Creatinine 0.60 (0.52-1.04) mg/dL Estimated GFR > 60.0 (>60) mL/min BUN/Creatinine Ratio 21.7 (6-22) Glucose 112 H (70-100) mg/dL Calcium 8.4 (8.4-10.2) mg/dL Imaging Data Chest x-ray: Radiologist's impression: ROCEDURE: XR CHEST 1V INDICATIONS: chest pain TECHNIQUE: One view of the chest was acquired. COMPARISON: [facility], , CHEST 2 VIEW, 06/24/2017, 14:46. FINDINGS: Surgical changes and devices: Numerous surgical clips over the lower neck bilaterally. Lungs and pleura: Mild elevation and eventration right hemidiaphragm. No pleural effusions or pneumothorax. Lungs are clear. Mediastinum: Mediastinal contours appear normal. Heart size is normal. Bones and chest wall: No suspicious bony lesions. Overlying soft tissues appear unremarkable. IMPRESSION: No acute cardiopulmonary abnormality Dictated by: Chucky Buchanan M.D. on 09/21/2017 at 16:24 Approved by: Chucky Buchanan M.D. on 09/21/2017 at 16:34 ECG Data Attestation: I personally reviewed and interpreted this ECG as follows: Interpretation: sinus rhythm ventricular rate in 99 normal axis Normal QRS normal QTC comparison EKG June 24, 2017 Today's EKG unchanged from comparison MDM Narrative Medical decision making narrative: patient received 2 doses of epinephrine prior to arrival here in the emergency department. She did receive Benadryl and Solu-Medrol. She was not hypoxic. Upon my evaluation she was wheezing bilateral. Received multiple nebulizer treatments since then. She does describe pain in her right arm which she was given pain medications for. She also describes not feeling very well and double vision. I feel that the epinephrine may be the cause of this. She also describes a change in her phlegm color and coughing and low-grade fevers for the past 2 weeks. Chest x-ray does not show any signs of pneumonia however given her chronic respiratory status would have a low threshold to starting antibiotics. Patient can take pills by mouth. She was given morphine here in the ER. She states that she does not have an allergy to this medication. Given the fact that she received 2 doses of epinephrine prior to arrival and the multiple nebulizers here in the ER The patient does warrant observation. Case turned over to night provider for re-evaluation and disposition. <Milton De La Cruz MD - Last Filed: 09/21/17 19:43> Lab Data Lab Results 09/21/17 09/21/17 Range/Units 15:55 15:55 WBC 11.8 H (4.5-11.0) X10^3/uL RBC 4.18 (4.0-5.2) X10^6/uL Hgb 13.0 (12.0-16.0) g/dL Hct 38.0 (36-46) % MCV 91.0 (80-100) fL MCH 31.1 (26-34) PG MCHC 34.2 (30-36) % RDW 13.5 (11.6-14.8) % Plt Count 267 (150-400) X10^3/uL Neut % (Auto) 76.0 H (50-75) % Lymph % (Auto) 11.5 L (25-40) % Iron % (Auto) 7.4 (3-14) % Eos % (Auto) 3.8 (2-4) % Baso % (Auto) 1.3 (0-2) % Neut # (Auto) 9000 H (5184-2515) /uL Sodium 140 (137-145) mmol/L Potassium 3.3 L (3.4-5.1) mmol/L Chloride 101 (98-107) mmol/L Carbon Dioxide 27 (22-32) mmol/L BUN 13 (7-17) mg/dL Creatinine 0.60 (0.52-1.04) mg/dL Estimated GFR > 60.0 (>60) mL/min BUN/Creatinine Ratio 21.7 (6-22) Glucose 112 H (70-100) mg/dL Calcium 8.4 (8.4-10.2) mg/dL Discharge Plan Departure Patient Disposition: Admitted as Observation Clinical Impression: Allergic reaction to bee sting, RAD (reactive airway disease) Discharge Date/Time: 09/21/17 21:11 Interventions: ED Discharge Assessment Last Done: 09/21/17 21:11 Admit Date/Time: 09/21/17 20:40 Admit Provider: Tai Ernst <Milton De La Cruz MD - Last Filed: 09/21/17 19:43> Sign Out Provider Sign Out Attestation: I assumed care of this patient at change of shift from Dr. Hernandez. I know this patient well. She has a trach in place, she has chronic respiratory issues. She presented greater than 4 hr ago with a bee sting on the right elbow. She has been managed as an allergic reaction due to increased respiratory issues. She has received Benadryl, Epinephrine, Solu-Medrol and multiple Albuterol nebs. On my initial evaluation after 4 hr of management the patient has dyspnea. It is noted she has wheezing in the left upper lung field. She has significant erythema to her face, neck and chest. She communicates by writing on a pad. She tells me she feels like she is burning up. I discussed the situation with Dr. Ernst, hospitalist. It is impossible to separate symptoms representing a bee sting allergy from her baseline respiratory issues. She will require admission for ongoing respiratory support and management of allergic reaction. She will continue to receive Solu-Medrol every 6 hr, Benadryl and nebulizer treatments as needed. She will be admitted observation.
[2017-09-21] MEDS: ALBUTEROL/IPRATROPIUM 3 ML AMPUL INH ×4 (16:45→19:17)
[2017-09-21] MEDS: ONDANSETRON 4 MG/2 ML INJ IV (16:53)
--- NOTE | 2017-09-21 17:15 | PC.NURSE ---
AFTER DUONEB PT'S WHEEZING NOTED TO HAVE IMPROVED. AT THIS TIME, WHEEZES NOTED TO POSTERIOR RLL ONLY.
[2017-09-21] MEDS: MORPHINE 4 MG/ML INJ IV (17:49)
[2017-09-21 18:03] LABS: BUN Creatinine Ratio 21.7 (6-22); Blood Urea Nitrogen 13 mg/dL (7-17); Calcium 8.4 mg/dL (8.4-10.2); Carbon Dioxide 27 mmol/L (22-32); Chloride 101 mmol/L (98-107); Estimated Glomerular Filt Rate > 60.0 mL/min (>60); Glucose 112 mg/dL (70-100); HEMOLYSIS 30 (0-50); Potassium 3.3 mmol/L (3.4-5.1); Sodium 140 mmol/L (137-145)
[2017-09-21 18:18] LABS: Add Manual Diff / Slide Review NO; Basophils Percent Auto 1.3 % (0-2); Eosinophils Percent Auto 3.8 % (2-4); Lymphocytes Percent Auto 11.5 % (25-40); Mean Corpuscular HGB Conc 34.2 % (30-36); Mean Corpuscular Hemoglobin 31.1 PG (26-34); Monocytes Percent Auto 7.4 % (3-14); Neutrophils Absolute Auto 9000 /uL (3000-5900); Platelet Count 267 X10^3/uL (150-400); Red Blood Cell Count 4.18 X10^6/uL (4.0-5.2); Red Cell Distribution Width 13.5 % (11.6-14.8); White Blood Cell Count 11.8 X10^3/uL (4.5-11.0)
--- NOTE | 2017-09-21 18:30 | PC.NURSE ---
R ARM TREMOR NOTED TO HAVE DECREASED SINCE ARRIVAL. PT CONTINUES TO C/O GENERALIZED 5/10 PAIN BUT NOW STATES TONGUE FEELS NORMAL. PT CONTINUES TO STATE I DON'T FEEL RIGHT BUT CAN NOT EXPOUND ON HOW SHE DOESN'T FEEL LIKE. PER OTHER ED PERSONNEL, PT HISTORICALLY MAKES SAME STATEMENT EVERY TIME SHE COMES IN AND CONTINUES TO MAKE STATEMENT FROM TIME SHE IS ADMITTED INTO ED UNTIL SHE IS DISCHARGED FROM ED. VSS, BREATHING UNLABORED, SWALLOWING EASILY.
[2017-09-21] MEDS: diphenhydrAMINE 50 MG/ML VIAL IV (19:25)
[2017-09-21] MEDS: LORazepam 2 MG/ML SYRINGE 1 MG IV (19:25)
[2017-09-21] MEDS: ALBUTEROL 2.5 MG/3 ML NEB (ADULT) INH (19:30)
--- NOTE | 2017-09-21 19:44 | PC.NURSE ---
CALLED PT'S BOYFRIEND PER REQUEST TO GIVE UPDATE. LEFT MESSAGE FOR JR MAI AT [phone]
[2017-09-21] MEDS: HYDROMORPHONE 1 MG INJ IV (20:22)
[2017-09-21] MEDS: SODIUM CHLORIDE 0.9% 1,000 ML 125 ML IV (21:42)
--- NOTE | 2017-09-21 21:46 | PC.ADMIT ---
[id number] Admission Note: The patient,Nai Zeng,56 y/o, was given written information regarding hospital policies, unit procedures and contact persons. Patient's smoking status: Never smoker. Vital Signs - 8 hr 09/21/17 15:00 09/21/17 15:22 09/21/17 15:30 Temperature 99.8 F H Pulse Rate 109 H 115 H 102 H Respiratory Rate 18 24 19 Blood Pressure 156/77 H Blood Pressure [Left Arm] 156/77 H 110/63 Pulse Oximetry 94 96 93 09/21/17 16:30 09/21/17 17:07 09/21/17 17:42 Temperature Pulse Rate 99 H 100 H Respiratory Rate 17 18 Blood Pressure Blood Pressure [Left Arm] 130/72 H 141/64 H Pulse Oximetry 99 95 94 09/21/17 18:00 09/21/17 18:07 09/21/17 18:30 Temperature Pulse Rate 98 H 104 H Respiratory Rate 20 Blood Pressure Blood Pressure [Left Arm] 114/55 L 110/46 L Pulse Oximetry 96 95 91 09/21/17 19:00 09/21/17 19:17 09/21/17 19:30 Temperature Pulse Rate 117 H 89 117 H Respiratory Rate 23 18 Blood Pressure Blood Pressure [Left Arm] 150/97 H 150/97 H Pulse Oximetry 94 95 09/21/17 19:31 09/21/17 20:00 09/21/17 20:10 Temperature 99.0 F Pulse Rate 118 H 111 H 113 H Respiratory Rate 20 32 H 18 Blood Pressure Blood Pressure [Left Arm] 150/97 H 109/55 L 109/55 L Pulse Oximetry 93 91 92 09/21/17 20:30 Temperature Pulse Rate 115 H Respiratory Rate Blood Pressure Blood Pressure [Left Arm] 116/61 Pulse Oximetry 91 Pt up from ER via stretcher. 2 person assist to ac bed via slider board. Pt able to communicate with writing on paper, mouthing words and shaking head. C/o pain to rt arm where the bee sting was. Pts primary RN Roya to contact for pain meds. Pt is A&O/cooperative.
--- NOTE | 2017-09-21 21:57 | PC.NURSE ---
Addendum entered by Roya Perry R.N. 09/21/17 23:07: Pt reporting, my chest is hurting tele: ST, upon assessment pt appears anxious, RR increased and fixated about her hand and the previous wasp bite. Ice pack applied to area. MD notified, n/o for PRN ativan. Original Note: Pt arrived to floor anxious and diaphoretic . Pt verbalizes, with a writing pad, that she feels like the room is spinning tremor observed to RT hand. MD is aware of pt's symptoms and general demeanor. Pt reassured and fan placed, at ~2200 appears more relaxed, eating a general diet and watching TV. Tele: ST. IVF infusing and continuous pulse ox on, O2 sat 88-92%. Will continue to monitor.
[2017-09-21] MEDS: TRAMADOL 50 MG TABLET PO (22:55)
[2017-09-22] MEDS: LORazepam 1 MG TABLET PO (00:04)
[2017-09-22] MEDS: diphenhydrAMINE 50 MG/ML VIAL 25 MG IV (00:05)
[2017-09-22 04:48] VITALS: BP 135/78; PULSE 98; RESP 15; TEMP 36.4; O2SAT 94
[2017-09-22] MEDS: TRAMADOL 50 MG TABLET PO ×2 (04:54→11:04)
[2017-09-22] MEDS: SODIUM CHLORIDE 0.9% 1,000 ML 125 ML IV (06:21)
[2017-09-22 08:00] VITALS: BP 133/69; PULSE 90; RESP 16; TEMP 36.8; O2SAT 92
--- NOTE | 2017-09-22 08:39 | PC.NURSE ---
Addendum entered by Reena Masterson R.N. 09/22/17 14:18: resp/dc - prior to dc, had RT in for deeper suctioning as pt did cough up some sputum and superficially wiped away, t drain changed and dc paperwork reviewed, no new scripts, assisted to wc w/clothing, shoes, paperwork, purse, tsf to wc and escorted her to ER entrance by DRAWER IN. Original Note: Addendum entered by Reena Masterson R.N. 09/22/17 13:33: resp - per Edilberto RT, trach mask humidify is set up only comfort while pt here, removed and 02 sat remained 90-94%, changed t drain to trach, dressed in clothing, shoes, her SO will arrive at 230 and pt to be ready at ER entrance as he has a dental appt in [place] and leaving work early, agreed to have pt downstairs, paperwork reviewed, no new scripts. Original Note: Addendum entered by Reena Masterson R.N. 09/22/17 12:37: DC/MEDS - contacted Dr. Oakley office [phone] and discussed ear drops, the med assistant account manager will contact her pharmacy, also a follow up appt was scheduled for the pt fri 09/25 at 820 am and pt was informed. Original Note: Addendum entered by Reena Masterson R.N. 09/22/17 11:40: wound - pt written req to notify Dr. Cornell's office regarding trach wound, per Arelis, the pt is scheduled at the clinic for 09/24 at 830. Original Note: Addendum entered by Reena Masterson R.N. 09/22/17 11:15: RESP/PAIN - 02 humidified 7L sat 92%, able to communicate through written correspondence and pt mouths words, complaint headache discomfort, given 50mg tramadol with am meds, able swallow w/thin liq w/o difficulty, noted to have some tightness l arm at iv site and iv removed, Dr. Ernst notified and stated leave out for now. Original Note: AM NOTE - pt asleep throughout am, rr unlabored at 16, has trach mask w/humidified 02 8L with 02 sat 91%.
[2017-09-22 09:46] VITALS: O2SAT 91
[2017-09-22] MEDS: LISINOPRIL 10 MG TABLET PO (11:01)
[2017-09-22] MEDS: LORATADINE 10 MG TABLET PO (11:01)
[2017-09-22 11:06] VITALS: BP 137/87; PULSE 96; RESP 16; TEMP 36.8; O2SAT 91
--- NOTE | 2017-09-22 11:54 | PM.HP.1 ---
History of Present Illness Date Patient Seen: 09/22/17 Time Patient Seen: 11:54 Chief complaint: Allergic reaction Narrative: She was seen in the emergency department last evening after having been stung by a wasp and then she subsequently had some trouble breathing so after several hours in the emergency department she was admitted as observation status so we could continue with Benadryl and Solu-Medrol she also received some epinephrine. She recently was diagnosed with an external ear infection and has been troubled having trouble getting drops for the ear and this was another issue for her because she has some vertigo symptoms recently also. Patient History Family & Social History Social History: household members significant other Prior Living Arrangements House Safety & Behavioral: Feels Safe in Current Yes Environment Been Physically Hurt or No Threatened By a Person Suicidal Ideation Description None Suicide Plan Description No Plan Tobacco & Substance use: Smoking Status Never smoker alcohol intake former Substance Use Type does not use Meds Home Medications Medication Instructions Recorded Confirmed Type albuterol sulfate 1 dose INHALATION QIDP PRN #180 01/25/16 09/21/17 History docusate sodium 100 mg PO BID #0 01/25/16 09/21/17 History ferrous gluconate 324 mg PO QDAY #0 08/28/16 09/21/17 History omeprazole 20 mg PO QDAY #0 08/28/16 09/21/17 History acetaminophen 650 mg PO Q6HP PRN #0 10/29/16 09/21/17 History amitriptyline 25 mg PO HS #0 01/22/17 09/21/17 History ascorbic acid (vitamin C) 500 mg PO QDAY #0 06/10/17 09/21/17 History fexofenadine 180 mg PO QDAY #0 06/10/17 09/21/17 History nystatin 1 dose PO DIRECTED #0 06/10/17 09/21/17 History sodium chloride 0.9 % 1 vial QID PRN #0 06/10/17 09/21/17 History citalopram 40 mg PO DAILY 09/21/17 09/21/17 History estradiol 2 mg PO DAILY 09/21/17 09/21/17 History lisinopril 10 mg PO DAILY 09/21/17 09/21/17 History tramadol 50 mg PO Q6HP PRN 09/21/17 09/21/17 History Allergies Allergy/AdvReac Type Severity Reaction Status Date / Time hydrocodone Allergy Intermediate RASH/HIVES Verified 09/21/17 16:56 Penicillins Allergy Intermediate RASH/HIVES Unverified 06/17/17 12:06 metronidazole Allergy Mild RASH Unverified 06/17/17 12:06 acetaminophen [ACETAMINOPHEN] Allergy Unknown GI UPSET Unverified 06/17/17 12:06 diphenhydramine Allergy Unknown Unverified 06/17/17 12:06 [DIPHENHYDRAMINE] ibuprofen Allergy Unknown Unverified 06/17/17 12:06 oxycodone [OXYCODONE] Allergy Unknown Unverified 06/17/17 12:06 venom-wasp Allergy Verified 09/21/17 16:57 ranitidine AdvReac Intermediate SOB/DIZZY Unverified 06/17/17 12:06 sulfamethoxazole AdvReac Mild GI UPSET Unverified 06/17/17 12:06 [From Bactrim] trimethoprim [From Bactrim] AdvReac Mild GI UPSET Unverified 06/17/17 12:06 fentanyl [FENTANYL] AdvReac Unknown vomiting Unverified 06/17/17 12:06 ANTACIDS AdvReac Unknown Uncoded 06/17/17 12:06 Review of Systems Review of Systems All systems reviewed & are unremarkable except as noted in HPI and below Exam Vital Signs (past 8 hours): - 09/22/17 04:48 09/22/17 08:00 09/22/17 09:46 Temperature 97.5 F L 98.2 F Pulse Rate 98 H 90 Respiratory Rate 15 16 Blood Pressure 135/78 H 133/69 H Pulse Oximetry 94 92 91 09/22/17 11:06 Temperature 98.3 F Pulse Rate 96 H Respiratory Rate 16 Blood Pressure 137/87 H Pulse Oximetry 91 Oxygen Delivery Method Humidification,Trach Collar Oxygen Flow Rate 8 Narrative Exam Narrative: She appears to be in no acute distress HEENT exam she has has oropharynx is clear Neck is she has the trach E ostomy in place with the trach mask and humidified oxygen which she uses chronically Lungs are clear Heart regular rhythm Abdomen obese nontender Neuro exam awake alert baseline mental status is unable to speak because of her tracheostomy but is able to communicate very readily with writing Objective Labs Result Diagrams: 09/21/17 15:55 09/21/17 15:55 Labs: Laboratory Results - last 24 hr 09/21/17 09/21/17 15:55 15:55 WBC 11.8 H RBC 4.18 Hgb 13.0 Hct 38.0 MCV 91.0 MCH 31.1 MCHC 34.2 RDW 13.5 Plt Count 267 Neut % (Auto) 76.0 H Lymph % (Auto) 11.5 L [place] % (Auto) 7.4 Eos % (Auto) 3.8 Baso % (Auto) 1.3 Neut # (Auto) 9000 H Sodium 140 Potassium 3.3 L Chloride 101 Carbon Dioxide 27 BUN 13 Creatinine 0.60 Estimated GFR > 60.0 BUN/Creatinine Ratio 21.7 Glucose 112 H Calcium 8.4 Assessment & Plan Plan: Assessment/Plan Narrative: One. Wasp sting with allergic reaction responded nicely to epinephrine IV Benadryl and IV Solu-Medrol. Currently her lungs are clear she is back to her baseline and is ready for discharge. We will help her navigate the system to get the ear drops that were prescribed by her primary care physician evidently this was not covered by her insurance so we will contact the office for her and let them know that they need to find a different medication for her. The vertigo she is experiencing probably will resolve spot on it own. Quality VTE Deep Vein Thrombosis/Pulmonary Embolism Present on Admission: No
--- NOTE | 2017-09-22 12:23 | CM.DANOTE ---
DCP: Case received, EMR reviewed and met with patient. Introduced self and role. DCP temlate completed with information currently available. Patient is a 56 year old female who was admitted yesterday evening to the care of the hospitalist team. Payer: confirmed [employer] Patient carries a diagnosis of resp distress secondary to allergic reaction after being stung by a wasp. Is under observation status. Patient has a tracheotomy, is unable to talk, but writes on paper to communicate. Has a significant other that she resides with. P: DCP to continue to plan assess, and goal if for her to return home.
--- NOTE | 2017-09-22 12:28 | CM.DPC ---
DCP Cont: Patient is to be discharged to home today. Does not need home oxygen, per respiratory therapy. Contacted Significant other, Jr. Torres, as far as transportation. P: Will be picked up by significant, or friend, today. Taylor Sen RN/Bacteriology Research Assistant
== END 2017-09-22 14:30 | disposition home or self-care (01) ==
LOC: ED 19:43 → AC 20:42
PROVIDERS: Emergency Medicine; Admitting Provider Internal Medicine; Emergency Provider Emergency Medicine; Visit Provider Internal Medicine
DX: T63.441A Toxic effect of venom of bees, accidental (unintentional), initial encounter (principal); Z93.0 Tracheostomy status; J98.9 Respiratory disorder, unspecified
CPT/HCPCS: 71045; 80048; 85025; 93005; 94640; 96374; 96375; 96376; 99284; 99285; G0378; J1170; J1200; J2060; J2270; J2405; J2920; J2930; J7613

== ENCOUNTER → 2017-09-24 09:00 | Outpatient (CLI) | payer OTHER, MEDICAID, SELFPAY ==
[2017-09-21 21:10] VITALS: BMI 32.3
--- NOTE | 2017-09-24 | OV.WND_ITS ---
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 Allergies Penicillins (Severity: Moderate, Reaction: rash and hives), Vicodin (Severity: Moderate, Reaction: Rash and hives), ibuprofen (Severity: Moderate, Reaction: Rash and hives), Gelusil Antacid and Anti-Gas (Severity: Moderate, Reaction: increase in stomach discomfort), Septra (Severity: Moderate, Reaction: GI upset), Flagyl (Severity: Moderate, Reaction: Rash), Benadryl (Reaction: Rash), ranitidine (Severity: Moderate, Reaction: SOB, dizzy) HPI This information was obtained from the patient 09/24/17. Seen by Dr. Cornell. The patient does not report increased pain associated with the anterior neck soft tissue radiation ulcer however the nurse feels the ulcer is longer than on her previous visit. 09/17/17. Seen by Dr. Cornell. 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 She has an appointment tomorrow with her PCP to address this problem. Otherwise she does not report increased pain or drainage associated with the ulcer however the nurse reports the ulcer as being larger this week. 09/10/17. Seen by Dr. Cornell. 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 Her culture at the last visit grew Diptherioids and he's applying topical gentamicin with dressing changes which has been adjusted to better protect the site from the abrading ET tube and strap. 09/07/17. Seen by Dr. Cornell. 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 The staff also feels the ulcer's increased in size and she's no long on oral antibiotics that were prescribed recently for a Enterococcus positive wound culture. 08/31/17. Seen by Finn Felton PA-C. The patient reports pain associated with her chronic neck radiation ulcer. 08/24/17. Seen by Dr. Cornell. 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 She continues to apply topical gentamicin to the ulcer to treat the Enterococcus positive wound culture as recommended. 08/14/17. Seen by Dr. Cornell. The patient's been applying topical gentamicin daily to the soft tissue radiation neck ulcer to treat the recent Enterococcus positive wound culture and she's completed her course of levofloxacin. 08/07/17. Seen by Dr. Cornell. 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 She does not report increased pain nor drainage from the site however nor other acute issues today. 07/31/17. Seen by Dr. Cornell. 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 07/24/17. Seen by Dr. Cornell. 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 07/17/17. Seen by Dr. Cornell. 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 Of note, the patient also states she fell from her bed a few days ago resulting in bilateral black eyes. 07/10/2017. Seen by Dr. Cornell. 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 She does not report increased drainage however nor other acute issues. 07/03/17. Seen by Dr. Cornell. 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 06/19/17. Seen by Dr. Cornell. 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 06/09/17. Seen by Dr. Cornell. The patient reports some pain associated with the anterior neck right sided soft tissue radiation ulcer and continues on doxycycline and levofloxacin following a recent admission for a COPD exacerbation. She does not report increased drainage from the ulcer sites and is using Xeroform and Scar-away dressings as recommended. 06/01/17. Seen by Dr. Cornell. The patient was admitted to the hospital for a COPD exacerbation and is now on oral antibiotics following discharge. She reports some ear pain but otherwise no acute issues. Regarding her soft tissue radiation ulcers over the anterior neck she is now using the silicone dressings and Xeroform as recommended and does not report significant pain or drainage.Of note, these are complicated significantly by her tracheostomy tube and attached strap that tends to shear the irradiated skin causing ulcers. 05/25/17. Seen by Dr. Cornell. The patient reports pain associated with the chronic soft tissue radiation neck ulcers. She states her dressings are not on continuously and that she has been wearing her tracheostomy strap for extended periods at home despite our advice to not use it if possible. 05/18/17. Seen by Finn Felton PA-C. The patient reports continued pain from her soft tissue radiation ulcers of the neck. She has finished a once daily antibiotic for a URI but does not recall which antibiotic it was. 05/11/17. Seen by Finn Felton PA-C. The patient reports increased pain and increased drainage from her soft tissue radiation ulcers of the neck. 04/23/17. Similarly Dr. Cornell. The patient does not report increased pain nor drainage associated with the chronic neck soft tissue radiation ulcers since her last visit. 04/16/17. Seen by Finn Felton PA-C. The patient reports that the Radia-gel dressings did not stay in place and the tape used to secure them caused skin tears. 04/09/17. Seen by Finn Felton PA-C. The patient reports no increase in drainage from her radiation ulcers of the neck. 04/02/17. Seen by Finn Felton PA-C. The patient reports her usual amount of pain from her anterior neck ulcers. 03/26/17. Seen by Dr. Cornell. 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 She was discharged recently from [facility] following treatment for an acute URI and is now on levofloxacin. 03/19/17. Seen by Dr. Cornell. The patient does not report significant pain associated with chronic anterior neck soft tssue radiation ulcer since her last visit. 03/12/17. Seen by Dr. Cornell. The patient reports increased pain associated with the anterior neck soft tissue radiation ulcers. Of note, she is reusing her silicon dressings and washing them despite being advised not to do this in the past. She has very limited financial resources that is leading her to do this. 03/04/17. Seen by Dr. Cornell. 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 She continues on doxycycline for a cat bite at the right arm without reported adverse side effects and feels this is improving. There are also no new issues regarding his left neck nonpressure ulcer. 02/24/17. Seen by Dr. Cornell. 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 She was seen in the ER for this and had a CT performed that showed cellulitis but no associated abscess. She was started on levofloxacin at that visit. Also, she was to start doxycycline following her last wound care visit for a cat bite of the right arm however states the antibiotic was not covered by insurance so she has not started this. Otherwise, she does not report fevers or feeling unwell in general. 02/17/17. Seen by Dr. Cornell. The patient reports continued pain associated with the anterior and left lateral neck soft tissue radiation ulcers since her last visit. She is not currently on antibiotics. She also reports a cat bite of the right arm that's been bleeding and painful for the past 2 days since it occurred. 02/10/17. Seen by Finn Felton PA-C. The patient reports a new ulcer on her left neck , in the irradiated area from her previous radiation treatment. 01/16/17. Seen by Dr. Cornell. The patient reports some moderate pain and drainage associated with her chronic neck soft tissue radiation ulcers since her last visit. 01/09/17. Seen by Dr. Cornell. The patient does not report significant pain or increased drainage associated with her chronic neck soft tissue radiation ulcers since her last visit. Her recent wound culture grew ocampo-sensitive Staph aureus and she's applying topical gentamicin as recommended. 01/01/17. Seen by Finn Felton PA-C. The patient reports increased pain and drainage from her chronic neck ulcers which overly an irradiated field. 12/17/16. Seen by Dr. Cornell. The patient does not report significant pain or increased drainage associated with her chronic neck soft tissue radiation ulcers since her last visit. She'll be leaving for a hunting trip and will be gone until December 31. 12/11/16. Seen by Dr. Cornell. The patient does not report significant pain nor drainage associated with chronic neck soft tissue radiation ulcers since her last visit. She completed her course of levofloxacin in the interim and also states that she will not be undergoing reconstructive surgery following discussion with her surgeons. 11/27/16. Seen by Dr. Cornell. The patient reports increased pain and some bloody drainage associated with the anterior neck soft tissue radiation ulcer. She also states that she's had a persistent and productive cough over the past few days. Her most recent wound culture grew MSSA and the prior grew a pansensitive Pseudomonas organism. Staff also report a new ulcer over the left anterior neck. 11/20/16. Seen by Finn Felton PA-C. The patient came in urgently today to be evaluated for increased bleeding and drainage from her neck ulcers which overly radiation damaged tissue. 11/14/16. Seen by Dr. Cornell. The patient continues to apply topical gentamicin to the chronic soft tissue radiation neck ulcers to treat the recent Pseudomonas positive wound culture. She does not report significant pain or increased drainage from these sites. She has an appointment with another surgeon on November 21 to further discuss reconstructive options regarding the narrowing of her stoma and significant soft tissue contractures around the anterior neck. 11/07/16. Seen by Dr. Cornell. The patient reports a new ulcer over the left side of her neck at an area of scarring associated with her chronic soft tissue radiation injury of the neck. She does not report significant pain nor drainage at the site nor from the chronic anterior nonpressure ulcer. Her last culture at that site grew Pseudomonas that is intermediately. 10/31/16. Seen by Dr. Cornell. The patient and her caregiver reports increased drainage associated with the chronic and progressive right anterior neck soft tissue radiation ulcer over the past week. They're having issues in terms of dressing changes and managing increased drainage and the patient also has a persistent and productive cough with mucus being expelled from the tracheostomy site. Of note, the caregiver states that she has been attempting to liaise with Dr. Lopez's office, ENT surgery at , regarding a follow up appointment to discuss reconstructive surgery in hopes of addressing the chronic skin contractures that are contributing heavily to the refractory nature of this neck ulcer. 10/23/16. Seen by Finn Felton PA-C. The patient reports no increase in pain or drainage from her neck ulcer. Her two ulcers have bridged into one ulcer. She has no new news regarding a surgical revision. 10/10/16. Seen by Dr. Cornell.The patient does not report increased pain or drainage associated with the chronic soft tissue neck radiation ulcers since her last visit. Her culture from the last visit grew diphtheroids and she's been applying topical gentamicin as recommended. According to her caregiver they have still not heard back regarding an appointment with her surgeon who is planning a revision for the stenosed tracheostomy site noting the tube is contributing significantly to the ulcer formation. She also does not report significant pain or drainage associated with the superficial abdominal abscess noted at her last visit. 10/03/16. Seen by Dr. Cornell. The patient continues to report some pain associated with the chronic neck soft tissue radiation ulcers. The patient caregiver feels the proximal ulcer continues to increase in size. They have not yet scheduled an appointment for revision surgery for the tracheostomy as was discussed last week. 09/26/16. Seen by Dr. Cornell. The patient continues to report some pain as well as persistent drainage associated with the chronic right neck soft-tissue radiation ulcers. 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 He is planning for a revision surgery to try to address this issue in the near future. 09/19/16. Seen by Dr. Cornell. The patient and her brother continue to report some pain associated with the chronic neck nonpressure ulcers but no increased drainage and they've been changing the silicon dressings as recommended to protect the soft-tissue radiation injured skin and protect against abrasion caused by the tracheosteomy tube. Of note, the patient feels as though the stoma may gradually be tightening as she continues to have some difficulty replacing the tube after taking it out. She also reports some persistent productive coughing and nasal drainage in the evenings and through the night and feels it may be related to allergies. 09/01/16. Seen by Dr. Cornell. The patient's brother who's present today reports that the patient's silicon dressings are being changed less frequently than recommended and in washing them the adherence is deteriorating which may be leading to loss of function in terms of protecting the underlying irradiated skin and neck ulcers. She does not report increased drainage or pain associated with the neck ulcers today. 08/28/16. Seen by Dr. Cornell. The patient removed her tracheostomy tube in clinic today and is having difficulty replacing it. She's a bit anxious at the time of exam but is breathing without distress or audible stridor. Regarding her chronic neck soft tissue radiation ulcers, there's no new issues to report and she's been dressing them as recommended. 08/21/16. Seen by Dr. Cornell. The patient reports continued pain and drainage associated with the chronic soft tissue radiation ulcer along the margin of her tracheostomy stoma. She and her caregiver are dressing it as recommended and she's completed her course of antibiotics those treating the recently cultured MRSA. 08/15/16. Seen by Dr. Cornell. The patient reports increased pain associated with the chronic soft tissue radiation neck ulcers since her last visit and her caregiver reports some thick overlying drainage around the mid-line ulcer adjacent to the tracheostomy stoma. She does not report fevers or feeling unwell however and has been applying topical antibiotic to the ulcers as recommended. 08/08/16. Seen by Dr. Cornell. The patient reports continued pain associated with the chronic anterior neck non-pressure ulcers and they've been applying topical gentamicin to treat the recurrent MRSA positive wound cutlures. She's also wearing her silicon dressing as recommended to help protect the soft tissue radiation injury of the skin from abrasion caused by her tracheostomy tube strap. 08/01/16. Seen by Dr. Cornell. The patient's caregiver reports improvement in terms of pain and drainage associated with the chronic neck ulcers. They've been applying topical gentamicin as recommended for the chronic wound infections. 07/23/16. Seen by Dr. Cornell. The patient's caregiver reports improvement in terms of pain and drainage associated with the chronic neck ulcers overlying the soft tissue radiation injury that follow treatment for her laryngeal cancer years ago. They've been applying topical gentamicin as recommended for the chronic wound infections. 07/09/16. Seen by Finn Felton PA-C. The patient reports she has run out of the silicone strips that were fabricated by [employer] to reduce abrasion from her laryngostomy collar. She is using scar fade strips which are not staying in place. Her neck ulcers continue to be present under the collar. 06/25/16. Seen by Dr. Cornell. The patient's caregiver reports improvement in terms of pain and drainage associated with the chronic neck ulcers. They've been applying topical gentamicin as recommended for the chronic wound infections. 06/11/16. Seen by Dr. Cornell. The patient reports improvement in terms of pain and drainage associated with the chronic neck ulcers. She completed her course of ciprofloxacin which was treating the recurrent ulcer infections and she continues to apply topical gentamicin to the ulcer beds. 06/04/16. Seen by Dr. Cornell. The patient continues to report some pain and minimal drainage associated with the chronic neck ulcers are complicated by underlying soft tissue radiation injury. She was just discharged from the hospital for tracheobronchitis and continues on ciprofloxacin with cultures that have grown Pseudomonas, Staph, and Haemophilus. She does not report adverse side effects from antibiotics nor fevers or feeling unwell today although she continues to have a mild cough. 05/26/16. Seen by Finn Felton PA-C. The patient reports no increase in drainage or pain from her neck ulcers. 05/16/16. Seen by Dr. Cornell. The patient does not report significant pain nor drainage associated with the recurrent neck soft tissue radiation ulcers since her last visit. She's been applying topical gentamicin as recommended and wearing the silicon dressings to protect from the trach tube strap rubbing on the irradiated skin.Also, her wound culture from the last visit grew MSSA. 05/09/16. Seen by Dr. Cornell. The patient feels her recurrent soft tissue radiation ulcers over the mid and left aspects of her neck are painful and draining for the past week. She reports wearing her silicon dressing but does not have it in place all of the time and has been leaving her tracheostomy tube strap off for extended periods during the day to help prevent abrasion. She's been applying topical gentamicin to the ulcers but is not currently on systemic antibiotics. 04/29/16. Seen by Finn Felton PA-C. The patient reports continued compliance with her silicone skin protector that she wears under her collar. She reports improvement in her neck ulcers, however she ran out of supplies a few days ago and now reports worsening of the ulcers. 04/11/16. Seen by Dr. Cornell. The patient reports decreased pain and drainage associated with the chronic neck non-pressure ulcers over the patient week and she's applying topical gentamicin to treat the chronic MRSA wound infection as recommended. She's also using silicon dressings to help better protect the soft tissue radiation injury to the neck which is heavily implicated in the recurrent and refractory nature of the ulcers. 04/04/16. Seen by Dr. Cornell. The patient reports an increase in the size and pain associated with the left neck non-pressure ulcer since her last visit. She's applying gentamicin ointment to all of the ulcers a recommended and using the silicon dressings to help prevent abrasion caused by the trach tube strap. 03/28/16. Seen by Dr. Cornell. The patient reports decreased pain and drainage associated with the chronic neck non-pressure ulcers over the patient week and she's restarted use of the silicon dressings again to protect the irradiated skin that's been breaking down under the trach strap and contributing to the recurrent and refractory nature of the ulcers. 03/21/16. Seen by Dr. Cornell. The patient reports decreased pain and drainage associated with the chronic neck non-pressure ulcers over the patient week and she continues applying topical gentamicin to treat the chronic MRSA wound infection. 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 03/13/15. Seen by Dr. Cornell. The patient reports decreased pain and drainage associated with the chronic neck non-pressure ulcers over the patient week since starting on doxycycline for a recurrent MRSA wound infection. She's now using silicon dressings to protect the irradiated skin over the neck that resulted from radiation therapy treating laryngeal cancer. She does not report adverse effects of the doxycycline and is also applying topical gentamicin daily to the ulcer sites. 03/06/16. Seen by Dr. Cornell. The patient reports persistent pain associated with the recurrent neck non-pressure ulcers and staff report they're larger and are draining based on the dressings. 02/28/16. Seen by Dr. Cornell. The patient returns with new ulcers overlying her soft tissue radiation neck injury that resulted following treatment for laryngeal cancer. She states she ran out of the silicon dressings she uses to protect the area from her trach tube strap and after this the ulcers appeared and are quite painful. Their draining however she does not report fevers. 11/28/15. Seen by Dr. Cornell. 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 11/21/15. Seen by Dr. Cornell. The patient reports some minimal pain associated with the chronic neck soft tissue radiation ulcer since her last visit. She also complains of right ear pain and has asked me to have look in the ear as it feels like there may be a foreign body present. She also reports a mild cough, sore throat, and feeling a bit unwell in general. 11/14/15. Seen by Dr. Cornell. The patient reports moderate pain but no significant drainage associated with the left neck soft tissue radiation ulcer since her last visit. 10/31/15. Seen by Dr. Cornell. The patient reports some pain associated with the left neck soft tissue radiation ulcer but no increased drainage from either ulcer nor pain associated with the middle soft tissue radiation ulcer. Her caregiver notes that they're running out of the silicon dressings and they've become nearly prohibitively expensive. 10/12/15 Seen by Finn Felton PA-C. The patient returns to our clinic after reconstructive scar- revision surgery on her radiation damaged neck. She has wounds that have been left to close by secondary intention and are slow to heal. In addition, her silicone strips that help hold her laringostomy collar in place continue to work well for her. 09/07/[address] Cornell. The patient presents with a new rash over the right neck overlying the soft tissue radiation injury. Of note, her very chronic wounds at the same site were recently healed. She dose not report pain, drainage, or skin breakdown associated with the rash. 08/24/[address] Cornell. The patient does not report pain or drainage associated with the chronic neck soft tissue radiation ulcers over the past few days and she's using the silicon dressings to cover the ulcers. 08/15/[address] Cornell. The patient nor her caregiver report significant pain or drainage from either the left or right neck soft tissue radiation ulcers over the past week and she's received her silicon dressings that are being used to prevent abrasion to the skin caused by her laryngostomy tube strap. 08/09/[address] Cornell. 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 Otherwise the right neck ulcers remain relatively stable and have minimal drainage over the past week. 08/02/[address] Cornell. The patient reports minimal discomfort associated with the chronic neck soft tissue radiation ulcers and her caregiver feels they've improved considerably over the past week while applying gentamicin ointment and using the silicon dressing to prevent abrasion from the trach strap. 07/26/[address] Cornell. The patient reports only moderate discomfort and minimal drainage associate with her remaining soft tissue radiation ulcers of the neck. 07/19/[address] Cornell. The patient's caregiver reports increased drainage on the dressings covering the neck soft tissue radiation ulcers and the patient reports some increased pain at the ulcer sites. They're also running out of the silicon dressings they' ve been using to protect the ulcers from abrasion caused by the overlying trach strap. She does not report any problems regarding the chronic left upper arm wound. 07/12/[address] Cornell. The patient does not report increased pain or drainage associated with her chronic neck soft tissue radiation ulcers and she's been using her silicon wound dressings daily. She feels her ulcers are much less painful since changing to the new dressings. 07/05/[address] Cornell. The patient reports a significant improvement in pain regarding her chronic neck soft tissue radiation ulcers since starting to use adherent silicon dressings to prevent abrasion caused by her trach strap. She does not report significant drainage from the ulcers. 06/22/[address] Cornell. The patient continues to report persistent pain associated with the chronic neck soft tissue radiation ulcers. 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 06/12/15 Seen by Finn Felton PA-C. The patient reports continued pain from her radiation neck ulcers. 06/05/15 Seen by Finn Felton PA-C. The patient reports continued pain and stable drainage from her neck radiation ulcers. She continues to use her favored dressings instead of ones that we have recommended for her. 05/21/15 Seen by Finn Felton PA-C. The patient reports continued pain and no change in drainage from her neck radiation ulcers and her arm and chest wounds. 05/08/15 Seen by Finn Felton PA-C. The patient reports continued pain and stable drainage from her neck radiation ulcers. Flores from [facility] attended part of the appointment to try fitting her for the laryngectomy collar protective prosthetic. 04/25/[address] Cornell. The patient continues to report significant pain associated with the chronic soft tissue radiation neck ulcers and the staff report at least moderate drainage on her dressings today. She does not report fevers or feeling unwell otherwise. 04/11/[address] Cornell. The patient been on levofloxacin and doxycycline for Pseudomonas and MRSA positive wounds cultures taken from her soft tissue radiation ulcers over the neck and around the laryngostomy wound. She still reports pain associated with the ulcers but indicates it's not as bad as last week. 04/05/[address] Cornell. The patient reports persistent pain associated with her neck soft tissue radiation ulcers. She's currently on levofloxacin and doxycycline for the Pseudomonas and MRSA positive culture taken at the last visit and she does not report adverse side effects. 03/28/2015 Seen by Finn Felton PA-C. The patient continues to complain of neck ulcer pain. In addition she again asks today why are they hurting. She has not been compliant with any of our attempts at specialized laryngectomy collar padding or dressings. 03/21/2015 Seen by Finn Felton PA-C. The patient returns with stable 6-7/10 constant pain from the radiation ulcers on her neck. She continues on Doxycycline and has finished her course of prednisone for a URI as prescribed by her PCP. He has recently not been able to keep the Radiagel sheets attached to her neck or tracheostomy collar and has gone back to using Xeroform gauze. 02/19/15 Seen by Finn Felton PA-C. The patient returns for evaluation of her radiation ulcers of the neck. She reports continued pain and her most recent dressings that we have trialed did not stay in place. 02/12/15 Seen by Finn Felton PA-C. The patient reports continued neck pain from her radiation ulcers as well as tightness in her surrounding neck tissues. She reports the pain is exacerbated by rubbing of her tracheostomy tube macias and by any palpation or instrumentation. Drainage has been minimal. 02/05/15 Seen by Finn Felton PA-C. The patient presents today with a new wound on her left lateral neck, on her irradiated tissue. This wound is 01/24/[address] Cornell. The patient reports a cough and feeling unwell the past few days. She continues on doxycycline and levofloxcacin for the recent MRSA and Pseudomonas positive wound culture. Of note, she arrives today with gauze dressings over her next ulcers as opposed to foam which has been recommended. 01/17/[address] Cornell. The patient's been started on doxycycline and levofloxacin for her wound culture from the last visit that grew MRSA again plus Pseudomonas which is new. She reports having a cough and low grade fever also and the staff report the left neck ulcer dressings as being quite wet. 01/12/[address] Cornell. The patient indicates the neck ulcer pain is a 6-7/ 10 today and states she's been adhering to our dressing change recommendations. She's not currently on antibiotics and does not report fever although she feels a bit under the weather. 01/05/[address] Cornell. The patient complains of 4/10 pain at the site of her remaining chronic neck ulcers. 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 12/18/14 Seen by Finn Felton PA-C. The patient continues to have difficulty securing her dressings and keeping them in place under her tracheostomy collar. She is planning on going deer hunting and will be away from our clinic for over 1 week. 12/12/[address] Cornell. The patient complains of significant right ear pain. Her left neck ulcer culture from the last visit grew MRSA and she's not currently on antibiotics at this time. Of note, the foam that we placed around the tracheostomy tube to prevent abrasion was not in place on the patient's arrival today. 12/08/[address] Cornell. The patient complains of some persistent pain at the site of the left neck ulcer but does not report fever or increased drainage. Of note, she's not changed her dressing since her last visit 3 days ago. 11/28/14 Seen by Finn Felton PA-C. The patient again reports right ear pain without drainage or disturbance in hearing. The dressing on her head wound has stayed in place and her neck dressings lasted less than 24hrs in place. Scalp wound pain has decreased. 11/28/14 Seen by Finn Felton PA-C. The patient has seen her PCP for her right ear issues and he has prescribed her Cefuroxime, which she is currently taking. She has kept her scalp dressing in place and reports continued neck pain and a new neck wound on the left. 11/14/14 Seen by Finn Felton PA-C. The patient's right sided neck wound and scalp wound are much improved today after she has been keeping her head wound covered and has loosened her trach collar. Both wounds are reportedly less painful than before. 11/07/14 Doc Z Surg: patient returns for follow-up of the radiation injury and mechanical abrasions wounds of the neck laterally and anteriorly adjacent to the tracheostomy straps which appear to have been chafing on this sensitive skin in the field of radiation. The padded protective dressing has been utilized since her last visit and shows marked improvement in all of the wounds. Also the scalp abrasions which appear to be fingernail scrapings have also improved markedly after the patient educated to avoid fingernails scratching on the scalp area. Question was raised regarding the possibly poor fitting tracheostomy tube but this appears normal and not problematic to my examination. At present I do not see any need for ENT reevaluation of the [id number] tracheostomy site. 10/26/[address] Cornell. The patient complains of recurrent right ear pain that's constant over the past week but does not report fever, sweats, or drainage from the ear. Her wound cultres from the scalp and neck ulcers grew MRSA on 10/04/14. She continues to report pain at these sites and has been unable to maintain dressings as recommended due to discomfort and the fact the scalp dressing falls off. 10/12/14 Seen by Finn Felton PA-C. The patient reports ear pain after completing HBOT. Her wounds still feel tight around her neck but are otherwise stable and more comfortable with her new foam neck dressings. 10/04/[address] Cornell. The patient feels the pain associated with her neck and scalp ulcers is improved and only noticeable intermittently. She arrived today with foam dressings over the neck ulcers which we started utilizing last week to minimize trauma from the tracheostomy tube harness to the skin and ulcers beneath. 09/27/[address] Cornell. The patient feels her neck ulcers and scalp wounds are less painful however the staff report that the dressing plan we implemented to help prevent abrasion to the neck ulcers does not seem to have been continued after the patient left clinic last week. She's now off of antibiotics and does not report increased drainage. 09/20/[address] Cornell. The patient feels her scalp and neck ulcer pain are improving since she's been on IV daptomycin. She also had a doppler study yesterday that rule out a left arm DVT however she still complains of swelling and discomfort in the arm. 09/06/[address] Cornell. The patient complains of continued pain and drainage associated with her scalp and neck ulcers. She's no longer on antibiotics and recently grew Enterococcus and resistant coag negative Staph from the ulcer sites respectively. 08/30/[address] Cornell. The patient reports continued pain at the neck and scalp ulcers and her scalp wound grew Enterococcus on 08/23/14. She's taking clindamycin and completed a course of azithromycin that were started in the ER due to a recurrent URI. 08/16/14 Seen by Finn Felton PA-C. The patient continues to take Keflex for her scalp wound bacterial infection. She reports it is now more painful and draining more than before. Her neck radiation wounds continue to feel tight. 08/14/14 Seen by Finn Felton PA-C. The patient complains of right ear pain and fullness which started today. She reports feeling like she might have a cold coming on. 08/09/[address] Cornell. The patient complains of persistent pain at the site of the neck ulcers and worsening pain at the scalp ulcer. She's taking doxycycline based on the most recent MSSA wound culture sensitivities from the neck ulcer and does not report any adverse side effects. 07/08/[address] Cornell. The patient feels the neck ulcer pain is improving and she's completed her course of doxycycline that was started last week. She still complains of significant pain a the site of the scalp lesion however. Her wound culture from 07/28 grew MSSA sensitive to doxycycline. 07/26/[address] Cornell. The patient complains of increased pain at the neck ulcers as well as the scalp lesion. She does not report increased drainage, fever, cough, or chills and states her previously reported right ear pain has improved. 07/14/[address] Cornell. The patient reports right ear pain with a sore throat but no fevers or cough. 07/11/14 Seen by Finn Felton PA-C. The patient reports less scalp pain and no drainage from her scalp wound. She continues to report a pulling type pain in and around her neck wounds. 07/04/14 Seen by Finn Felton PA-C. The patient has cut her fingernails short and reports that her scalp wound is hurting and itching less. She reports a new wound over an old abdominal scar today. It has been present for 5 days and she is not sure how it occurred. 06/20/14 The patient feels her neck ulcer pain as well as the scalp lesion pain have improved since starting doxycycline. She continues to apply hydrogel and Xeroform to the neck ulcers to keep them moist. Otherwise she's tolerating HBOT without difficulty and has made significant progress in the healing of the neck ulcers throughout this most recent series of dives. 06/13/14 The patient indicates that her neck ulcers 'feel tight' and she still has some discomfort at the scalp lesions. She also complains of significant pruritis in the area of the scalp lesions. She's been taking taking doxycycline for the past week to treat a MRSA positive culture of the scalp ulcer. 06/06/14 The patient reports continued pain from all of her wounds and frustration that her scalp wound has not healed despite her not scratching it. 05/31/14 The patient's here for HBOT today but complains of new left facial pain over the angle of the mandible that started yesterday. She does not complain of ear pain or an dental or intraoral pain but has been treated in the hospital recently for recurrent pneumonia. She's also been reviewed in the past 3 months by her oncologist and reportedly is cancer free. 05/30/14 The patient does not report increased pain or drainage from her neck wounds nor scalp lesion. 05/18/14 The patient complains of significant pain at the left 3rd finger wound as well as her chronic scalp wound. Otherwise she does not report significant pain nor drainage from the neck wounds. 05/12/14 The patient does not report increased pain or drainage from her neck ulcers nor the wound on the scalp. 05/04/14 The patient reports increased pain at the left neck wound and apparently the barrier dressing slipped down and her guaze became adherent resulting in a skin tear upon removal. Otherwise she continues to complain of pain at both neck wounds and the scalp wound. 05/02/14 The patient was seen today in the HBOT treatment room for complaints of a productive cough. She was recently discharged from the hospital with a diagnosis of tracheobronchitis and is finishing a course of Levaquin. Cough is described as yellow and thick and is difficult to clear from her tracheostomy. 04/21/14 The patient complains of persistent ear pain in the right ear despite using antibiotic drops Rx'd by her ENT provider last week. She does not report drainage or fever. 04/18/14 The patient states her cough is improving and she's still on antibiotics from her recent admission for pneumonia. She does not report increased drainage or pain from the neck ulcers but states her right ear pain has returned. She was seen by ENT who felt the lesion in the external canal was traumatic and she was given an Rx for ear drops which she states she's been using. She also reports recurrence of the painful left scalp wound that was recently healed. 04/11/14 The patient complains of a cough productive of green sputum for the past few days that's particularly worse when lying flat. She indicates that she feels generally unwell and weak and is questioning whether she can tolerate HBOT today. 04/05/14 The patient continues to complain of right ear pain however does not report bleeding from the ear today. Of note, she was reviewed for this problem last week and a shallow ulcer in the right external ear canal was the only finding. 03/30/14 The patient reports continued 5/10 pain from her neck wound which is described as a constant, pulling type pain, which is exacerbated by flexing, extending or rotating her neck. 03/29/14 The patient completed her HBOT dive today and now complains of blood draining from the right ear. She does not report pain now nor during the dive today. 03/23/14 The patient reports increased pain from her medial neck wounds as well as from her scalp wound. The pain is described as a throbbing and sometimes pulling pain that is constant in nature and has no exacerbating factors, nor is it associated with any activity. She does not report fever, chills or increased wound drainage. Additionally the patient reports her [facility] doctors are considering a reconstructive surgical revision of her neck once her current wounds heal. She brings with her today a note from her [facility] doctors on a prescription pad, on which is written Please continue hyperbaric oxygen therapy. 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/14) Ear pain (right side; recurrent) Chronic ulcer (scalp; Enterococcus positive culture on 08/23/14; MRSA positive on 10/04/14) Complaints and Symptoms This information was obtained from the patient Patient complains of: General Notes: I have reviewed and concur with the Review of Systems and Past Family Social History documents completed by the clinician, I have reviewed and concur with the Wound Assessment document completed by the clinician Ear/Nose/Mouth/Throat: Ear Pain Integumentary (Hair/Skin/Nails): Open Sore Musculoskeletal: Deformities, Muscle Weakness Prior Wound History: Bleeding, Drainage, Erythema, Pain Patient denies complaints or symptoms related to: Cardiovascular (Central): Irregular heart beat Constitutional Symptoms (General Health): Chills, Fever, Marked Weight Change Ear/Nose/Mouth/Throat: Hearing Loss / Aid Gastrointestinal (GI): Nausea / Vomiting, Stomach/abdominal pain Hematologic/Lymphatic: Bleeding / Clotting Disorders, Bleeding Tendency Neurological: Loss of Protective Sensation Prior Wound History: Malodor Respiratory: Cough, Oxygen Use, Shortness of Breath OBJECTIVE Constitutional BP elevated; Afebrile; Alert and in no distress. Well developed. Alert. Clean appearing.. Height/Length: 66 in (167.64 cm), Weight: 227.7 lbs (103.5 kgs), BMI: 36.7, Temperature: 97.5 ?F (36.39 ?C), Pulse: 86 bpm, Respiratory Rate: 18 breaths/min, Blood Pressure: 144/91 mmHg, Pulse Oximetry: 96 %. Respiratory: No respiratory distress. Even respirations and without use of accessory muscles.. Integumentary (Hair, Skin) Mild periwound erythema with overlying adherent yellow drainage. Refer to appropriate clinician wound documentation for this visit; anterior neck ulcer extends to subcut and is longer and extending along a chord of scar tissue adjacent and right of the tracheostomy site. Wound #36 Right, Proximal Neck is an acute Full Thickness Radiation Wound and has received a status of Not Healed. Subsequent wound encounter measurements are 6.4cm length x 1.5cm width x 0.1cm depth, with an area of 9.6 sq cm and a volume of 0.96 cubic cm. No tunneling has been noted. No sinus tract has been noted. No undermining has been noted. There is a moderate amount of seropurulent drainage noted which has no odor. The patient reports a wound pain of level 7/10. The wound margin is attached. Wound bed has No epithelialization, No eschar, Yes slough, Yes bright red, pink, firm granulation. The periwound skin texture is normal. The periwound skin moisture is normal. The periwound skin color is normal. The temperature of the periwound skin is WNL. Periwound skin does not exhibit signs or symptoms of infection. Local Pulse is N/A. Neurological: Cranial nerves grossly intact with symmetric function normal by informal observation.. 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 A skin/ subcutaneous tissue level surgical debridement with a total area debrided of 9.6 sq cm was performed by Duy Cornell MD. Subcutaneous was removed. The following instrument(s) were used: curette. Pain control was achieved using Lidocaine 2 % Jelly. A time out was conducted prior to the start of the procedure. A minimal amount of bleeding was controlled with n/ a. The procedure was tolerated well with a pain level of 0 throughout and a pain level of 0 following the procedure. Post Debridement Measurements: 6.4cm length x 1.5cm width x 0.2cm depth; with an area of 9.6 sq cm and a volume of 1.92 cubic cm; Additional Information Muscle fascia or bone removed and sent to pathology?: No PLAN I've reviewed the clinician's documentation and agree with the evaluation and plan as written. In addition, the patient's ulcer demonstrates evidence of non-viable devitalized tissue which will continue to benefit from sharp debridement to help promote granulation and expedite healing. Also, I'm concerned the ulcer is extending along the chord of scar tissue which is likely rubbing on the patient's tracheostomy tube and securing strap. I've changed to a large foam dressing today to help protect against abrasion and will use Xeroform over the base which has been effective in the past. I'll also consider adding an oral antibiotic pending the culture results. Electronic Signature(s) Signed By: Date: Duy Cornell MD 09/25/2017 06:52:26 Entered By: Duy Cornell on 09/24/2017 11:13:32
== END ==
PROVIDERS: Visit Provider Internal Medicine
DX: L98.492 Non-pressure chronic ulcer of skin of other sites with fat layer exposed (principal); S11.89XA Other open wound of other specified part of neck, initial encounter; L59.8 Other specified disorders of the skin and subcutaneous tissue related to radiation
CPT/HCPCS: 11042; 87070; 87075; 87077; 87147; 87186; 87205

== ENCOUNTER → 2017-09-28 11:04 | Outpatient (CLI) | payer OTHER, MEDICAID, SELFPAY ==
[2017-09-21 21:10] VITALS: BMI 32.3
== END ==
PROVIDERS: Visit Provider Internal Medicine
DX: S11.89XD Other open wound of other specified part of neck, subsequent encounter (principal); L59.8 Other specified disorders of the skin and subcutaneous tissue related to radiation; L98.492 Non-pressure chronic ulcer of skin of other sites with fat layer exposed; B95.0 Streptococcus, group A, as the cause of diseases classified elsewhere; B95.7 Other staphylococcus as the cause of diseases classified elsewhere
CPT/HCPCS: 99212

== ENCOUNTER → 2017-10-02 09:45 | Outpatient (CLI) | payer OTHER, MEDICAID, SELFPAY ==
[2017-09-21 21:10] VITALS: BMI 32.3
--- NOTE | 2017-10-02 | OV.WND_ITS ---
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 Allergies Penicillins (Severity: Moderate, Reaction: rash and hives), Vicodin (Severity: Moderate, Reaction: Rash and hives), ibuprofen (Severity: Moderate, Reaction: Rash and hives), Gelusil Antacid and Anti-Gas (Severity: Moderate, Reaction: increase in stomach discomfort), Septra (Severity: Moderate, Reaction: GI upset), Flagyl (Severity: Moderate, Reaction: Rash), Benadryl (Reaction: Rash), ranitidine (Severity: Moderate, Reaction: SOB, dizzy) HPI This information was obtained from the patient 10/02/17. Seen by Dr. Cornell. 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 She does not report significant pain or drainage from the ulcer nor side effects of the antibiotics. The ulcer had deteriorated considerably over the previous 2 weeks and we adjusted dressings to better protect against abrasion caused by her tracheostomy tube and strap. 09/28/17. Seen by Dr. Cornell. The patient continues to report pain associated with the anterior soft tissue radiation neck ulcer and her wound culture from week grew Group A strep, Staph, and diptheroids. She's not currently on antibiotics and we've changed her dressing to better protect against abrasion from the tracheostomy tube and strap. 09/24/17. Seen by Dr. Cornell. The patient does not report increased pain associated with the anterior neck soft tissue radiation ulcer however the nurse feels the ulcer is longer than on her previous visit. 09/17/17. Seen by Dr. Cornell. 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 She has an appointment tomorrow with her PCP to address this problem. Otherwise she does not report increased pain or drainage associated with the ulcer however the nurse reports the ulcer as being larger this week. 09/10/17. Seen by Dr. Cornell. 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 Her culture at the last visit grew Diptherioids and he's applying topical gentamicin with dressing changes which has been adjusted to better protect the site from the abrading ET tube and strap. 09/07/17. Seen by Dr. Cornell. 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 The staff also feels the ulcer's increased in size and she's no long on oral antibiotics that were prescribed recently for a Enterococcus positive wound culture. 08/31/17. Seen by Finn Felton PA-C. The patient reports pain associated with her chronic neck radiation ulcer. 08/24/17. Seen by Dr. Cornell. 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 She continues to apply topical gentamicin to the ulcer to treat the Enterococcus positive wound culture as recommended. 08/14/17. Seen by Dr. Cornell. The patient's been applying topical gentamicin daily to the soft tissue radiation neck ulcer to treat the recent Enterococcus positive wound culture and she's completed her course of levofloxacin. 08/07/17. Seen by Dr. Cornell. 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 She does not report increased pain nor drainage from the site however nor other acute issues today. 07/31/17. Seen by Dr. Cornell. 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 07/24/17. Seen by Dr. Cornell. 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 07/17/17. Seen by Dr. Cornell. 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 Of note, the patient also states she fell from her bed a few days ago resulting in bilateral black eyes. 07/10/2017. Seen by Dr. Cornell. 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 She does not report increased drainage however nor other acute issues. 07/03/17. Seen by Dr. Cornell. 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 06/19/17. Seen by Dr. Cornell. 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 06/09/17. Seen by Dr. Cornell. The patient reports some pain associated with the anterior neck right sided soft tissue radiation ulcer and continues on doxycycline and levofloxacin following a recent admission for a COPD exacerbation. She does not report increased drainage from the ulcer sites and is using Xeroform and Scar-away dressings as recommended. 06/01/17. Seen by Dr. Cornell. The patient was admitted to the hospital for a COPD exacerbation and is now on oral antibiotics following discharge. She reports some ear pain but otherwise no acute issues. Regarding her soft tissue radiation ulcers over the anterior neck she is now using the silicone dressings and Xeroform as recommended and does not report significant pain or drainage.Of note, these are complicated significantly by her tracheostomy tube and attached strap that tends to shear the irradiated skin causing ulcers. 05/25/17. Seen by Dr. Cornell. The patient reports pain associated with the chronic soft tissue radiation neck ulcers. She states her dressings are not on continuously and that she has been wearing her tracheostomy strap for extended periods at home despite our advice to not use it if possible. 05/18/17. Seen by Finn Felton PA-C. The patient reports continued pain from her soft tissue radiation ulcers of the neck. She has finished a once daily antibiotic for a URI but does not recall which antibiotic it was. 05/11/17. Seen by Finn Felton PA-C. The patient reports increased pain and increased drainage from her soft tissue radiation ulcers of the neck. 04/23/17. Similarly Dr. Cornell. The patient does not report increased pain nor drainage associated with the chronic neck soft tissue radiation ulcers since her last visit. 04/16/17. Seen by Finn Felton PA-C. The patient reports that the Radia-gel dressings did not stay in place and the tape used to secure them caused skin tears. 04/09/17. Seen by Finn Felton PA-C. The patient reports no increase in drainage from her radiation ulcers of the neck. 04/02/17. Seen by Finn Felton PA-C. The patient reports her usual amount of pain from her anterior neck ulcers. 03/26/17. Seen by Dr. Cornell. 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 She was discharged recently from [facility] following treatment for an acute URI and is now on levofloxacin. 03/19/17. Seen by Dr. Cornell. The patient does not report significant pain associated with chronic anterior neck soft tssue radiation ulcer since her last visit. 03/12/17. Seen by Dr. Cornell. The patient reports increased pain associated with the anterior neck soft tissue radiation ulcers. Of note, she is reusing her silicon dressings and washing them despite being advised not to do this in the past. She has very limited financial resources that is leading her to do this. 03/04/17. Seen by Dr. Cornell. 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 She continues on doxycycline for a cat bite at the right arm without reported adverse side effects and feels this is improving. There are also no new issues regarding his left neck nonpressure ulcer. 02/24/17. Seen by Dr. Cornell. 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 She was seen in the ER for this and had a CT performed that showed cellulitis but no associated abscess. She was started on levofloxacin at that visit. Also, she was to start doxycycline following her last wound care visit for a cat bite of the right arm however states the antibiotic was not covered by insurance so she has not started this. Otherwise, she does not report fevers or feeling unwell in general. 02/17/17. Seen by Dr. Cornell. The patient reports continued pain associated with the anterior and left lateral neck soft tissue radiation ulcers since her last visit. She is not currently on antibiotics. She also reports a cat bite of the right arm that's been bleeding and painful for the past 2 days since it occurred. 02/10/17. Seen by Finn Felton PA-C. The patient reports a new ulcer on her left neck , in the irradiated area from her previous radiation treatment. 01/16/17. Seen by Dr. Cornell. The patient reports some moderate pain and drainage associated with her chronic neck soft tissue radiation ulcers since her last visit. 01/09/17. Seen by Dr. Cornell. The patient does not report significant pain or increased drainage associated with her chronic neck soft tissue radiation ulcers since her last visit. Her recent wound culture grew ocampo-sensitive Staph aureus and she's applying topical gentamicin as recommended. 01/01/17. Seen by Finn Felton PA-C. The patient reports increased pain and drainage from her chronic neck ulcers which overly an irradiated field. 12/17/16. Seen by Dr. Cornell. The patient does not report significant pain or increased drainage associated with her chronic neck soft tissue radiation ulcers since her last visit. She'll be leaving for a hunting trip and will be gone until December 31. 12/11/16. Seen by Dr. Cornell. The patient does not report significant pain nor drainage associated with chronic neck soft tissue radiation ulcers since her last visit. She completed her course of levofloxacin in the interim and also states that she will not be undergoing reconstructive surgery following discussion with her surgeons. 11/27/16. Seen by Dr. Cornell. The patient reports increased pain and some bloody drainage associated with the anterior neck soft tissue radiation ulcer. She also states that she's had a persistent and productive cough over the past few days. Her most recent wound culture grew MSSA and the prior grew a pansensitive Pseudomonas organism. Staff also report a new ulcer over the left anterior neck. 11/20/16. Seen by Finn Felton PA-C. The patient came in urgently today to be evaluated for increased bleeding and drainage from her neck ulcers which overly radiation damaged tissue. 11/14/16. Seen by Dr. Cornell. The patient continues to apply topical gentamicin to the chronic soft tissue radiation neck ulcers to treat the recent Pseudomonas positive wound culture. She does not report significant pain or increased drainage from these sites. She has an appointment with another surgeon on November 21 to further discuss reconstructive options regarding the narrowing of her stoma and significant soft tissue contractures around the anterior neck. 11/07/16. Seen by Dr. Cornell. The patient reports a new ulcer over the left side of her neck at an area of scarring associated with her chronic soft tissue radiation injury of the neck. She does not report significant pain nor drainage at the site nor from the chronic anterior nonpressure ulcer. Her last culture at that site grew Pseudomonas that is intermediately. 10/31/16. Seen by Dr. Cornell. The patient and her caregiver reports increased drainage associated with the chronic and progressive right anterior neck soft tissue radiation ulcer over the past week. They're having issues in terms of dressing changes and managing increased drainage and the patient also has a persistent and productive cough with mucus being expelled from the tracheostomy site. Of note, the caregiver states that she has been attempting to liaise with Dr. Lopez's office, ENT surgery at , regarding a follow up appointment to discuss reconstructive surgery in hopes of addressing the chronic skin contractures that are contributing heavily to the refractory nature of this neck ulcer. 10/23/16. Seen by Finn Felton PA-C. The patient reports no increase in pain or drainage from her neck ulcer. Her two ulcers have bridged into one ulcer. She has no new news regarding a surgical revision. 10/10/16. Seen by Dr. Cornell.The patient does not report increased pain or drainage associated with the chronic soft tissue neck radiation ulcers since her last visit. Her culture from the last visit grew diphtheroids and she's been applying topical gentamicin as recommended. According to her caregiver they have still not heard back regarding an appointment with her surgeon who is planning a revision for the stenosed tracheostomy site noting the tube is contributing significantly to the ulcer formation. She also does not report significant pain or drainage associated with the superficial abdominal abscess noted at her last visit. 10/03/16. Seen by Dr. Cornell. The patient continues to report some pain associated with the chronic neck soft tissue radiation ulcers. The patient caregiver feels the proximal ulcer continues to increase in size. They have not yet scheduled an appointment for revision surgery for the tracheostomy as was discussed last week. 09/26/16. Seen by Dr. Cornell. The patient continues to report some pain as well as persistent drainage associated with the chronic right neck soft-tissue radiation ulcers. 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 He is planning for a revision surgery to try to address this issue in the near future. 09/19/16. Seen by Dr. Cornell. The patient and her brother continue to report some pain associated with the chronic neck nonpressure ulcers but no increased drainage and they've been changing the silicon dressings as recommended to protect the soft-tissue radiation injured skin and protect against abrasion caused by the tracheosteomy tube. Of note, the patient feels as though the stoma may gradually be tightening as she continues to have some difficulty replacing the tube after taking it out. She also reports some persistent productive coughing and nasal drainage in the evenings and through the night and feels it may be related to allergies. 09/01/16. Seen by Dr. Cornell. The patient's brother who's present today reports that the patient's silicon dressings are being changed less frequently than recommended and in washing them the adherence is deteriorating which may be leading to loss of function in terms of protecting the underlying irradiated skin and neck ulcers. She does not report increased drainage or pain associated with the neck ulcers today. 08/28/16. Seen by Dr. Cornell. The patient removed her tracheostomy tube in clinic today and is having difficulty replacing it. She's a bit anxious at the time of exam but is breathing without distress or audible stridor. Regarding her chronic neck soft tissue radiation ulcers, there's no new issues to report and she's been dressing them as recommended. 08/21/16. Seen by Dr. Cornell. The patient reports continued pain and drainage associated with the chronic soft tissue radiation ulcer along the margin of her tracheostomy stoma. She and her caregiver are dressing it as recommended and she's completed her course of antibiotics those treating the recently cultured MRSA. 08/15/16. Seen by Dr. Cornell. The patient reports increased pain associated with the chronic soft tissue radiation neck ulcers since her last visit and her caregiver reports some thick overlying drainage around the mid-line ulcer adjacent to the tracheostomy stoma. She does not report fevers or feeling unwell however and has been applying topical antibiotic to the ulcers as recommended. 08/08/16. Seen by Dr. Cornell. The patient reports continued pain associated with the chronic anterior neck non-pressure ulcers and they've been applying topical gentamicin to treat the recurrent MRSA positive wound cutlures. She's also wearing her silicon dressing as recommended to help protect the soft tissue radiation injury of the skin from abrasion caused by her tracheostomy tube strap. 08/01/16. Seen by Dr. Cornell. The patient's caregiver reports improvement in terms of pain and drainage associated with the chronic neck ulcers. They've been applying topical gentamicin as recommended for the chronic wound infections. 07/23/16. Seen by Dr. Cornell. The patient's caregiver reports improvement in terms of pain and drainage associated with the chronic neck ulcers overlying the soft tissue radiation injury that follow treatment for her laryngeal cancer years ago. They've been applying topical gentamicin as recommended for the chronic wound infections. 07/09/16. Seen by Finn Felton PA-C. The patient reports she has run out of the silicone strips that were fabricated by [employer] to reduce abrasion from her laryngostomy collar. She is using scar fade strips which are not staying in place. Her neck ulcers continue to be present under the collar. 06/25/16. Seen by Dr. Cornell. The patient's caregiver reports improvement in terms of pain and drainage associated with the chronic neck ulcers. They've been applying topical gentamicin as recommended for the chronic wound infections. 06/11/16. Seen by Dr. Cornell. The patient reports improvement in terms of pain and drainage associated with the chronic neck ulcers. She completed her course of ciprofloxacin which was treating the recurrent ulcer infections and she continues to apply topical gentamicin to the ulcer beds. 06/04/16. Seen by Dr. Cornell. The patient continues to report some pain and minimal drainage associated with the chronic neck ulcers are complicated by underlying soft tissue radiation injury. She was just discharged from the hospital for tracheobronchitis and continues on ciprofloxacin with cultures that have grown Pseudomonas, Staph, and Haemophilus. She does not report adverse side effects from antibiotics nor fevers or feeling unwell today although she continues to have a mild cough. 05/26/16. Seen by Finn Felton PA-C. The patient reports no increase in drainage or pain from her neck ulcers. 05/16/16. Seen by Dr. Cornell. The patient does not report significant pain nor drainage associated with the recurrent neck soft tissue radiation ulcers since her last visit. She's been applying topical gentamicin as recommended and wearing the silicon dressings to protect from the trach tube strap rubbing on the irradiated skin.Also, her wound culture from the last visit grew MSSA. 05/09/16. Seen by Dr. Cornell. The patient feels her recurrent soft tissue radiation ulcers over the mid and left aspects of her neck are painful and draining for the past week. She reports wearing her silicon dressing but does not have it in place all of the time and has been leaving her tracheostomy tube strap off for extended periods during the day to help prevent abrasion. She's been applying topical gentamicin to the ulcers but is not currently on systemic antibiotics. 04/29/16. Seen by Finn Felton PA-C. The patient reports continued compliance with her silicone skin protector that she wears under her collar. She reports improvement in her neck ulcers, however she ran out of supplies a few days ago and now reports worsening of the ulcers. 04/11/16. Seen by Dr. Cornell. The patient reports decreased pain and drainage associated with the chronic neck non-pressure ulcers over the patient week and she's applying topical gentamicin to treat the chronic MRSA wound infection as recommended. She's also using silicon dressings to help better protect the soft tissue radiation injury to the neck which is heavily implicated in the recurrent and refractory nature of the ulcers. 04/04/16. Seen by Dr. Cornell. The patient reports an increase in the size and pain associated with the left neck non-pressure ulcer since her last visit. She's applying gentamicin ointment to all of the ulcers a recommended and using the silicon dressings to help prevent abrasion caused by the trach tube strap. 03/28/16. Seen by Dr. Cornell. The patient reports decreased pain and drainage associated with the chronic neck non-pressure ulcers over the patient week and she's restarted use of the silicon dressings again to protect the irradiated skin that's been breaking down under the trach strap and contributing to the recurrent and refractory nature of the ulcers. 03/21/16. Seen by Dr. Cornell. The patient reports decreased pain and drainage associated with the chronic neck non-pressure ulcers over the patient week and she continues applying topical gentamicin to treat the chronic MRSA wound infection. 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 03/13/15. Seen by Dr. Cornell. The patient reports decreased pain and drainage associated with the chronic neck non-pressure ulcers over the patient week since starting on doxycycline for a recurrent MRSA wound infection. She's now using silicon dressings to protect the irradiated skin over the neck that resulted from radiation therapy treating laryngeal cancer. She does not report adverse effects of the doxycycline and is also applying topical gentamicin daily to the ulcer sites. 03/06/16. Seen by Dr. Cornell. The patient reports persistent pain associated with the recurrent neck non-pressure ulcers and staff report they're larger and are draining based on the dressings. 02/28/16. Seen by Dr. Cornell. The patient returns with new ulcers overlying her soft tissue radiation neck injury that resulted following treatment for laryngeal cancer. She states she ran out of the silicon dressings she uses to protect the area from her trach tube strap and after this the ulcers appeared and are quite painful. Their draining however she does not report fevers. 11/28/15. Seen by Dr. Cornell. 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 11/21/15. Seen by Dr. Cornell. The patient reports some minimal pain associated with the chronic neck soft tissue radiation ulcer since her last visit. She also complains of right ear pain and has asked me to have look in the ear as it feels like there may be a foreign body present. She also reports a mild cough, sore throat, and feeling a bit unwell in general. 11/14/15. Seen by Dr. Cornell. The patient reports moderate pain but no significant drainage associated with the left neck soft tissue radiation ulcer since her last visit. 10/31/15. Seen by Dr. Cornell. The patient reports some pain associated with the left neck soft tissue radiation ulcer but no increased drainage from either ulcer nor pain associated with the middle soft tissue radiation ulcer. Her caregiver notes that they're running out of the silicon dressings and they've become nearly prohibitively expensive. 10/12/15 Seen by Finn Felton PA-C. The patient returns to our clinic after reconstructive scar- revision surgery on her radiation damaged neck. She has wounds that have been left to close by secondary intention and are slow to heal. In addition, her silicone strips that help hold her laringostomy collar in place continue to work well for her. 09/07/[address] Cornell. The patient presents with a new rash over the right neck overlying the soft tissue radiation injury. Of note, her very chronic wounds at the same site were recently healed. She dose not report pain, drainage, or skin breakdown associated with the rash. 08/24/[address] Cornell. The patient does not report pain or drainage associated with the chronic neck soft tissue radiation ulcers over the past few days and she's using the silicon dressings to cover the ulcers. 08/15/[address] Cornell. The patient nor her caregiver report significant pain or drainage from either the left or right neck soft tissue radiation ulcers over the past week and she's received her silicon dressings that are being used to prevent abrasion to the skin caused by her laryngostomy tube strap. 08/09/[address] Cornell. 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 Otherwise the right neck ulcers remain relatively stable and have minimal drainage over the past week. 08/02/[address] Cornell. The patient reports minimal discomfort associated with the chronic neck soft tissue radiation ulcers and her caregiver feels they've improved considerably over the past week while applying gentamicin ointment and using the silicon dressing to prevent abrasion from the trach strap. 07/26/[address] Cornell. The patient reports only moderate discomfort and minimal drainage associate with her remaining soft tissue radiation ulcers of the neck. 07/19/[address] Cornell. The patient's caregiver reports increased drainage on the dressings covering the neck soft tissue radiation ulcers and the patient reports some increased pain at the ulcer sites. They're also running out of the silicon dressings they' ve been using to protect the ulcers from abrasion caused by the overlying trach strap. She does not report any problems regarding the chronic left upper arm wound. 07/12/[address] Cornell. The patient does not report increased pain or drainage associated with her chronic neck soft tissue radiation ulcers and she's been using her silicon wound dressings daily. She feels her ulcers are much less painful since changing to the new dressings. 07/05/[address] Cornell. The patient reports a significant improvement in pain regarding her chronic neck soft tissue radiation ulcers since starting to use adherent silicon dressings to prevent abrasion caused by her trach strap. She does not report significant drainage from the ulcers. 06/22/[address] Cornell. The patient continues to report persistent pain associated with the chronic neck soft tissue radiation ulcers. 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 06/12/15 Seen by Finn Felton PA-C. The patient reports continued pain from her radiation neck ulcers. 06/05/15 Seen by Finn Felton PA-C. The patient reports continued pain and stable drainage from her neck radiation ulcers. She continues to use her favored dressings instead of ones that we have recommended for her. 05/21/15 Seen by Finn Felton PA-C. The patient reports continued pain and no change in drainage from her neck radiation ulcers and her arm and chest wounds. 05/08/15 Seen by Finn Felton PA-C. The patient reports continued pain and stable drainage from her neck radiation ulcers. Flores from [facility] attended part of the appointment to try fitting her for the laryngectomy collar protective prosthetic. 04/25/[address] Cornell. The patient continues to report significant pain associated with the chronic soft tissue radiation neck ulcers and the staff report at least moderate drainage on her dressings today. She does not report fevers or feeling unwell otherwise. 04/11/[address] Cornell. The patient been on levofloxacin and doxycycline for Pseudomonas and MRSA positive wounds cultures taken from her soft tissue radiation ulcers over the neck and around the laryngostomy wound. She still reports pain associated with the ulcers but indicates it's not as bad as last week. 04/05/[address] Cornell. The patient reports persistent pain associated with her neck soft tissue radiation ulcers. She's currently on levofloxacin and doxycycline for the Pseudomonas and MRSA positive culture taken at the last visit and she does not report adverse side effects. 03/28/2015 Seen by Finn Felton PA-C. The patient continues to complain of neck ulcer pain. In addition she again asks today why are they hurting. She has not been compliant with any of our attempts at specialized laryngectomy collar padding or dressings. 03/21/2015 Seen by Finn Felton PA-C. The patient returns with stable 6-7/10 constant pain from the radiation ulcers on her neck. She continues on Doxycycline and has finished her course of prednisone for a URI as prescribed by her PCP. He has recently not been able to keep the Radiagel sheets attached to her neck or tracheostomy collar and has gone back to using Xeroform gauze. 02/19/15 Seen by Finn Felton PA-C. The patient returns for evaluation of her radiation ulcers of the neck. She reports continued pain and her most recent dressings that we have trialed did not stay in place. 02/12/15 Seen by Finn Felton PA-C. The patient reports continued neck pain from her radiation ulcers as well as tightness in her surrounding neck tissues. She reports the pain is exacerbated by rubbing of her tracheostomy tube macias and by any palpation or instrumentation. Drainage has been minimal. 02/05/15 Seen by Finn Felton PA-C. The patient presents today with a new wound on her left lateral neck, on her irradiated tissue. This wound is 01/24/[address] Cornell. The patient reports a cough and feeling unwell the past few days. She continues on doxycycline and levofloxcacin for the recent MRSA and Pseudomonas positive wound culture. Of note, she arrives today with gauze dressings over her next ulcers as opposed to foam which has been recommended. 01/17/[address] Cornell. The patient's been started on doxycycline and levofloxacin for her wound culture from the last visit that grew MRSA again plus Pseudomonas which is new. She reports having a cough and low grade fever also and the staff report the left neck ulcer dressings as being quite wet. 01/12/[address] Cornell. The patient indicates the neck ulcer pain is a 6-7/ 10 today and states she's been adhering to our dressing change recommendations. She's not currently on antibiotics and does not report fever although she feels a bit under the weather. 01/05/[address] Cornell. The patient complains of 4/10 pain at the site of her remaining chronic neck ulcers. 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 12/18/14 Seen by Finn Felton PA-C. The patient continues to have difficulty securing her dressings and keeping them in place under her tracheostomy collar. She is planning on going deer hunting and will be away from our clinic for over 1 week. 12/12/[address] Cornell. The patient complains of significant right ear pain. Her left neck ulcer culture from the last visit grew MRSA and she's not currently on antibiotics at this time. Of note, the foam that we placed around the tracheostomy tube to prevent abrasion was not in place on the patient's arrival today. 12/08/[address] Cornell. The patient complains of some persistent pain at the site of the left neck ulcer but does not report fever or increased drainage. Of note, she's not changed her dressing since her last visit 3 days ago. 11/28/14 Seen by Finn Felton PA-C. The patient again reports right ear pain without drainage or disturbance in hearing. The dressing on her head wound has stayed in place and her neck dressings lasted less than 24hrs in place. Scalp wound pain has decreased. 11/28/14 Seen by Finn Felton PA-C. The patient has seen her PCP for her right ear issues and he has prescribed her Cefuroxime, which she is currently taking. She has kept her scalp dressing in place and reports continued neck pain and a new neck wound on the left. 11/14/14 Seen by Finn Felton PA-C. The patient's right sided neck wound and scalp wound are much improved today after she has been keeping her head wound covered and has loosened her trach collar. Both wounds are reportedly less painful than before. 11/07/14 Doc Z Surg: patient returns for follow-up of the radiation injury and mechanical abrasions wounds of the neck laterally and anteriorly adjacent to the tracheostomy straps which appear to have been chafing on this sensitive skin in the field of radiation. The padded protective dressing has been utilized since her last visit and shows marked improvement in all of the wounds. Also the scalp abrasions which appear to be fingernail scrapings have also improved markedly after the patient educated to avoid fingernails scratching on the scalp area. Question was raised regarding the possibly poor fitting tracheostomy tube but this appears normal and not problematic to my examination. At present I do not see any need for ENT reevaluation of the [id number] tracheostomy site. 10/26/[address] Cornell. The patient complains of recurrent right ear pain that's constant over the past week but does not report fever, sweats, or drainage from the ear. Her wound cultres from the scalp and neck ulcers grew MRSA on 10/04/14. She continues to report pain at these sites and has been unable to maintain dressings as recommended due to discomfort and the fact the scalp dressing falls off. 10/12/14 Seen by Finn Felton PA-C. The patient reports ear pain after completing HBOT. Her wounds still feel tight around her neck but are otherwise stable and more comfortable with her new foam neck dressings. 10/04/[address] Cornell. The patient feels the pain associated with her neck and scalp ulcers is improved and only noticeable intermittently. She arrived today with foam dressings over the neck ulcers which we started utilizing last week to minimize trauma from the tracheostomy tube harness to the skin and ulcers beneath. 09/27/[address] Cornell. The patient feels her neck ulcers and scalp wounds are less painful however the staff report that the dressing plan we implemented to help prevent abrasion to the neck ulcers does not seem to have been continued after the patient left clinic last week. She's now off of antibiotics and does not report increased drainage. 09/20/[address] Cornell. The patient feels her scalp and neck ulcer pain are improving since she's been on IV daptomycin. She also had a doppler study yesterday that rule out a left arm DVT however she still complains of swelling and discomfort in the arm. 09/06/[address] Cornell. The patient complains of continued pain and drainage associated with her scalp and neck ulcers. She's no longer on antibiotics and recently grew Enterococcus and resistant coag negative Staph from the ulcer sites respectively. 08/30/[address] Cornell. The patient reports continued pain at the neck and scalp ulcers and her scalp wound grew Enterococcus on 08/23/14. She's taking clindamycin and completed a course of azithromycin that were started in the ER due to a recurrent URI. 08/16/14 Seen by Finn Felton PA-C. The patient continues to take Keflex for her scalp wound bacterial infection. She reports it is now more painful and draining more than before. Her neck radiation wounds continue to feel tight. 08/14/14 Seen by Finn Felton PA-C. The patient complains of right ear pain and fullness which started today. She reports feeling like she might have a cold coming on. 08/09/[address] Cornell. The patient complains of persistent pain at the site of the neck ulcers and worsening pain at the scalp ulcer. She's taking doxycycline based on the most recent MSSA wound culture sensitivities from the neck ulcer and does not report any adverse side effects. 07/08/[address] Cornell. The patient feels the neck ulcer pain is improving and she's completed her course of doxycycline that was started last week. She still complains of significant pain a the site of the scalp lesion however. Her wound culture from 07/28 grew MSSA sensitive to doxycycline. 07/26/[address] Cornell. The patient complains of increased pain at the neck ulcers as well as the scalp lesion. She does not report increased drainage, fever, cough, or chills and states her previously reported right ear pain has improved. 07/14/[address] Cornell. The patient reports right ear pain with a sore throat but no fevers or cough. 07/11/14 Seen by Finn Felton PA-C. The patient reports less scalp pain and no drainage from her scalp wound. She continues to report a pulling type pain in and around her neck wounds. 07/04/14 Seen by Finn Felton PA-C. The patient has cut her fingernails short and reports that her scalp wound is hurting and itching less. She reports a new wound over an old abdominal scar today. It has been present for 5 days and she is not sure how it occurred. 06/20/14 The patient feels her neck ulcer pain as well as the scalp lesion pain have improved since starting doxycycline. She continues to apply hydrogel and Xeroform to the neck ulcers to keep them moist. Otherwise she's tolerating HBOT without difficulty and has made significant progress in the healing of the neck ulcers throughout this most recent series of dives. 06/13/14 The patient indicates that her neck ulcers 'feel tight' and she still has some discomfort at the scalp lesions. She also complains of significant pruritis in the area of the scalp lesions. She's been taking taking doxycycline for the past week to treat a MRSA positive culture of the scalp ulcer. 06/06/14 The patient reports continued pain from all of her wounds and frustration that her scalp wound has not healed despite her not scratching it. 05/31/14 The patient's here for HBOT today but complains of new left facial pain over the angle of the mandible that started yesterday. She does not complain of ear pain or an dental or intraoral pain but has been treated in the hospital recently for recurrent pneumonia. She's also been reviewed in the past 3 months by her oncologist and reportedly is cancer free. 05/30/14 The patient does not report increased pain or drainage from her neck wounds nor scalp lesion. 05/18/14 The patient complains of significant pain at the left 3rd finger wound as well as her chronic scalp wound. Otherwise she does not report significant pain nor drainage from the neck wounds. 05/12/14 The patient does not report increased pain or drainage from her neck ulcers nor the wound on the scalp. 05/04/14 The patient reports increased pain at the left neck wound and apparently the barrier dressing slipped down and her guaze became adherent resulting in a skin tear upon removal. Otherwise she continues to complain of pain at both neck wounds and the scalp wound. 05/02/14 The patient was seen today in the HBOT treatment room for complaints of a productive cough. She was recently discharged from the hospital with a diagnosis of tracheobronchitis and is finishing a course of Levaquin. Cough is described as yellow and thick and is difficult to clear from her tracheostomy. 04/21/14 The patient complains of persistent ear pain in the right ear despite using antibiotic drops Rx'd by her ENT provider last week. She does not report drainage or fever. 04/18/14 The patient states her cough is improving and she's still on antibiotics from her recent admission for pneumonia. She does not report increased drainage or pain from the neck ulcers but states her right ear pain has returned. She was seen by ENT who felt the lesion in the external canal was traumatic and she was given an Rx for ear drops which she states she's been using. She also reports recurrence of the painful left scalp wound that was recently healed. 04/11/14 The patient complains of a cough productive of green sputum for the past few days that's particularly worse when lying flat. She indicates that she feels generally unwell and weak and is questioning whether she can tolerate HBOT today. 04/05/14 The patient continues to complain of right ear pain however does not report bleeding from the ear today. Of note, she was reviewed for this problem last week and a shallow ulcer in the right external ear canal was the only finding. 03/30/14 The patient reports continued 5/10 pain from her neck wound which is described as a constant, pulling type pain, which is exacerbated by flexing, extending or rotating her neck. 03/29/14 The patient completed her HBOT dive today and now complains of blood draining from the right ear. She does not report pain now nor during the dive today. 03/23/14 The patient reports increased pain from her medial neck wounds as well as from her scalp wound. The pain is described as a throbbing and sometimes pulling pain that is constant in nature and has no exacerbating factors, nor is it associated with any activity. She does not report fever, chills or increased wound drainage. Additionally the patient reports her [facility] doctors are considering a reconstructive surgical revision of her neck once her current wounds heal. She brings with her today a note from her [facility] doctors on a prescription pad, on which is written Please continue hyperbaric oxygen therapy. 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/14) Ear pain (right side; recurrent) Chronic ulcer (scalp; Enterococcus positive culture on 08/23/14; MRSA positive on 10/04/14) Complaints and Symptoms This information was obtained from the patient Patient complains of: General Notes: I have reviewed and concur with the Review of Systems and Past Family Social History documents completed by the clinician, I have reviewed and concur with the Wound Assessment document completed by the clinician Ear/Nose/Mouth/Throat: Ear Pain Integumentary (Hair/Skin/Nails): Open Sore Musculoskeletal: Deformities, Muscle Weakness Prior Wound History: Bleeding, Drainage, Erythema, Pain Patient denies complaints or symptoms related to: Cardiovascular (Central): Irregular heart beat Constitutional Symptoms (General Health): Chills, Fever, Marked Weight Change Ear/Nose/Mouth/Throat: Hearing Loss / Aid Gastrointestinal (GI): Nausea / Vomiting, Stomach/abdominal pain Hematologic/Lymphatic: Bleeding / Clotting Disorders, Bleeding Tendency Neurological: Loss of Protective Sensation Prior Wound History: Malodor Respiratory: Cough, Oxygen Use, Shortness of Breath OBJECTIVE Constitutional Vital signs reviewed and noted. Well developed. Alert. Clean appearing.. Height/ Length: 66 in (167.64 cm), Weight: 226.2 lbs (102.82 kgs), BMI: 36.5, Temperature: 98.1 ?F ( 36.72 ?C), Pulse: 90 bpm, Respiratory Rate: 18 breaths/min, Blood Pressure: 125/73 mmHg, Pulse Oximetry: 94 %. Neck: Chronic skin contractures stable. Respiratory: No respiratory distress. Even respirations and without use of accessory muscles.. Integumentary (Hair, Skin) No periwound erythema, warmth, or significant drainage. No periwound rashes appreciated or noted otherwise.. Refer to appropriate clinician wound documentation for this visit; anterior neck ulcer extends to subcut and is longer and extending along a chord of scar tissue adjacent and right of the tracheostomy site; improved in terms of drainage and granulation. Wound #36 Right, Proximal Neck is an acute Full Thickness Radiation Wound and has received a status of Not Healed. Subsequent wound encounter measurements are 6.9cm length x 1.1cm width x 0.1cm depth, with an area of 7.59 sq cm and a volume of 0.759 cubic cm. No tunneling has been noted. No sinus tract has been noted. No undermining has been noted. There is a moderate amount of seropurulent drainage noted which has no odor. The patient reports a wound pain of level 5/10. The wound margin is attached. Wound bed has Yes epithelialization, No eschar, Yes slough, Yes pink, firm granulation. The periwound skin texture is normal. The periwound skin moisture is normal. The periwound skin color is normal. The temperature of the periwound skin is WNL. Periwound skin does not exhibit signs or symptoms of infection. Local Pulse is N/A. Neurological: Cranial nerves grossly intact with symmetric function normal by informal observation.. ASSESSMENT Active Problems ICD-10 (Encounter Diagnosis) S11.89XD - Other open wound of other specified part of neck, subsequent encounter (Encounter Diagnosis) L59.8 - Other specified disorders of the skin and subcutaneous tissue related to radiation (Encounter Diagnosis) L98.492 - Non-pressure chronic ulcer of skin of other sites with fat layer exposed (Encounter Diagnosis) B95.0 - Streptococcus, group A, as the cause of diseases classified elsewhere (Encounter Diagnosis) B95.7 - Other staphylococcus as the cause of diseases classified elsewhere PROCEDURES Wound #36 Wound #36 (Radiation Wound) is located on the right, proximal neck. A skin/ subcutaneous tissue level surgical debridement with a total area debrided of 7.59 sq cm was performed by Duy Cornell MD. Subcutaneous was removed along with devitalized tissue: slough. The following instrument(s) were used: curette. Pain control was achieved using EMLA lidocaine/prilocaine 2.5%/2.5%. A time out was conducted prior to the start of the procedure. A minimal amount of bleeding was controlled with pressure. The procedure was tolerated well with a pain level of 0 throughout and a pain level of 0 following the procedure. Post Debridement Measurements: 6.9cm length x 1.1cm width x 0.2cm depth; with an area of 7.59 sq cm and a volume of 1.518 cubic cm; Additional Information Muscle fascia or bone removed and sent to pathology?: No PLAN Wound Orders: Wound #36 Right, Proximal Neck Anesthetic Topical Xylocaine to wound bed. - Lidocaine in clinic only. Cleanser Cleanse Wound: - Normal saline and gauze. May use distilled water at home. May Shower. - Avoid direct contact with shower water at wound/dressing site. Dressings Cover and secure with: - Aquacel Ag surgical dressing cut to surround trach site. Change Dressing: - Leave in place unless it gets soiled or falls off. Follow-Up Appointments Return Appointment: - - One week. Other information: If you develop fever, chills, increased pain, drainage, redness or swelling please call our office. If after hours, respond to the ER. Should you experience any significant changes in your wound(s) or have any questions regarding your home care instructions please contact the wound center @ [phone]. If after hours, contact your primary care physician or go to the hospital emergency room. Scribing Attestation I attest, as the nurse, that I scribed these orders for the physician. General Notes: Please finish antibiotics. I've reviewed the clinician's documentation and agree with the evaluation and plan as written. In addition, the patient's ulcer demonstrates evidence of non-viable devitalized tissue which will continue to benefit from sharp debridement to help promote granulation and expedite healing. Also, the patient will complete her course of doxycycline as prescribed and we' ve again adjusted dressings to minimize trauma to the affected and irradiated area of the neck. Electronic Signature(s) Signed By: Date: Duy Cornell MD 10/05/2017 07:17:16 Entered By: Duy Cornell on 10/05/2017 07:13:38
== END ==
PROVIDERS: Visit Provider Internal Medicine
DX: S11.89XD Other open wound of other specified part of neck, subsequent encounter (principal); L59.8 Other specified disorders of the skin and subcutaneous tissue related to radiation; L98.492 Non-pressure chronic ulcer of skin of other sites with fat layer exposed; B95.0 Streptococcus, group A, as the cause of diseases classified elsewhere; B95.7 Other staphylococcus as the cause of diseases classified elsewhere
CPT/HCPCS: 11042

== ENCOUNTER → 2017-10-09 09:17 | Outpatient (CLI) | payer OTHER, MEDICAID, SELFPAY ==
[2017-09-21 21:10] VITALS: BMI 32.3
--- NOTE | 2017-10-09 | OV.WND_ITS ---
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 Allergies Penicillins (Severity: Moderate, Reaction: rash and hives), Vicodin (Severity: Moderate, Reaction: Rash and hives), ibuprofen (Severity: Moderate, Reaction: Rash and hives), Gelusil Antacid and Anti-Gas (Severity: Moderate, Reaction: increase in stomach discomfort), Septra (Severity: Moderate, Reaction: GI upset), Flagyl (Severity: Moderate, Reaction: Rash), Benadryl (Reaction: Rash), ranitidine (Severity: Moderate, Reaction: SOB, dizzy) HPI This information was obtained from the patient 10/09/17. Seen by Dr. Cornell. The patient's now on doxycycline for recurrence of bronchitis. 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 The dressing has been chosen specifically to help prevent abrasion to the irradiated skin caused by the tracheostomy tube strap. 10/02/17. Seen by Dr. Cornell. 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 She does not report significant pain or drainage from the ulcer nor side effects of the antibiotics. The ulcer had deteriorated considerably over the previous 2 weeks and we adjusted dressings to better protect against abrasion caused by her tracheostomy tube and strap. 09/28/17. Seen by Dr. Cornell. The patient continues to report pain associated with the anterior soft tissue radiation neck ulcer and her wound culture from week grew Group A strep, Staph, and diptheroids. She's not currently on antibiotics and we've changed her dressing to better protect against abrasion from the tracheostomy tube and strap. 09/24/17. Seen by Dr. Cornell. The patient does not report increased pain associated with the anterior neck soft tissue radiation ulcer however the nurse feels the ulcer is longer than on her previous visit. 09/17/17. Seen by Dr. Cornell. 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 She has an appointment tomorrow with her PCP to address this problem. Otherwise she does not report increased pain or drainage associated with the ulcer however the nurse reports the ulcer as being larger this week. 09/10/17. Seen by Dr. Cornell. 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 Her culture at the last visit grew Diptherioids and he's applying topical gentamicin with dressing changes which has been adjusted to better protect the site from the abrading ET tube and strap. 09/07/17. Seen by Dr. Cornell. 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 The staff also feels the ulcer's increased in size and she's no long on oral antibiotics that were prescribed recently for a Enterococcus positive wound culture. 08/31/17. Seen by Finn Felton PA-C. The patient reports pain associated with her chronic neck radiation ulcer. 08/24/17. Seen by Dr. Cornell. 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 She continues to apply topical gentamicin to the ulcer to treat the Enterococcus positive wound culture as recommended. 08/14/17. Seen by Dr. Cornell. The patient's been applying topical gentamicin daily to the soft tissue radiation neck ulcer to treat the recent Enterococcus positive wound culture and she's completed her course of levofloxacin. 08/07/17. Seen by Dr. Cornell. 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 She does not report increased pain nor drainage from the site however nor other acute issues today. 07/31/17. Seen by Dr. Cornell. 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 07/24/17. Seen by Dr. Cornell. 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 07/17/17. Seen by Dr. Cornell. 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 Of note, the patient also states she fell from her bed a few days ago resulting in bilateral black eyes. 07/10/2017. Seen by Dr. Cornell. 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 She does not report increased drainage however nor other acute issues. 07/03/17. Seen by Dr. Cornell. 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 06/19/17. Seen by Dr. Cornell. 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 06/09/17. Seen by Dr. Cornell. The patient reports some pain associated with the anterior neck right sided soft tissue radiation ulcer and continues on doxycycline and levofloxacin following a recent admission for a COPD exacerbation. She does not report increased drainage from the ulcer sites and is using Xeroform and Scar-away dressings as recommended. 06/01/17. Seen by Dr. Cornell. The patient was admitted to the hospital for a COPD exacerbation and is now on oral antibiotics following discharge. She reports some ear pain but otherwise no acute issues. Regarding her soft tissue radiation ulcers over the anterior neck she is now using the silicone dressings and Xeroform as recommended and does not report significant pain or drainage.Of note, these are complicated significantly by her tracheostomy tube and attached strap that tends to shear the irradiated skin causing ulcers. 05/25/17. Seen by Dr. Cornell. The patient reports pain associated with the chronic soft tissue radiation neck ulcers. She states her dressings are not on continuously and that she has been wearing her tracheostomy strap for extended periods at home despite our advice to not use it if possible. 05/18/17. Seen by Finn Felton PA-C. The patient reports continued pain from her soft tissue radiation ulcers of the neck. She has finished a once daily antibiotic for a URI but does not recall which antibiotic it was. 05/11/17. Seen by Finn Felton PA-C. The patient reports increased pain and increased drainage from her soft tissue radiation ulcers of the neck. 04/23/17. Similarly Dr. Cornell. The patient does not report increased pain nor drainage associated with the chronic neck soft tissue radiation ulcers since her last visit. 04/16/17. Seen by Finn Felton PA-C. The patient reports that the Radia-gel dressings did not stay in place and the tape used to secure them caused skin tears. 04/09/17. Seen by Finn Felton PA-C. The patient reports no increase in drainage from her radiation ulcers of the neck. 04/02/17. Seen by Finn Felton PA-C. The patient reports her usual amount of pain from her anterior neck ulcers. 03/26/17. Seen by Dr. Cornell. 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 She was discharged recently from [facility] following treatment for an acute URI and is now on levofloxacin. 03/19/17. Seen by Dr. Cornell. The patient does not report significant pain associated with chronic anterior neck soft tssue radiation ulcer since her last visit. 03/12/17. Seen by Dr. Cornell. The patient reports increased pain associated with the anterior neck soft tissue radiation ulcers. Of note, she is reusing her silicon dressings and washing them despite being advised not to do this in the past. She has very limited financial resources that is leading her to do this. 03/04/17. Seen by Dr. Corenll. 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 She continues on doxycycline for a cat bite at the right arm without reported adverse side effects and feels this is improving. There are also no new issues regarding his left neck nonpressure ulcer. 02/24/17. Seen by Dr. Cornell. 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 She was seen in the ER for this and had a CT performed that showed cellulitis but no associated abscess. She was started on levofloxacin at that visit. Also, she was to start doxycycline following her last wound care visit for a cat bite of the right arm however states the antibiotic was not covered by insurance so she has not started this. Otherwise, she does not report fevers or feeling unwell in general. 02/17/17. Seen by Dr. Cornell. The patient reports continued pain associated with the anterior and left lateral neck soft tissue radiation ulcers since her last visit. She is not currently on antibiotics. She also reports a cat bite of the right arm that's been bleeding and painful for the past 2 days since it occurred. 02/10/17. Seen by Finn Felton PA-C. The patient reports a new ulcer on her left neck , in the irradiated area from her previous radiation treatment. 01/16/17. Seen by Dr. Cornell. The patient reports some moderate pain and drainage associated with her chronic neck soft tissue radiation ulcers since her last visit. 01/09/17. Seen by Dr. Cornell. The patient does not report significant pain or increased drainage associated with her chronic neck soft tissue radiation ulcers since her last visit. Her recent wound culture grew ocampo-sensitive Staph aureus and she's applying topical gentamicin as recommended. 01/01/17. Seen by Finn Felton PA-C. The patient reports increased pain and drainage from her chronic neck ulcers which overly an irradiated field. 12/17/16. Seen by Dr. Cornell. The patient does not report significant pain or increased drainage associated with her chronic neck soft tissue radiation ulcers since her last visit. She'll be leaving for a hunting trip and will be gone until December 31. 12/11/16. Seen by Dr. Cornell. The patient does not report significant pain nor drainage associated with chronic neck soft tissue radiation ulcers since her last visit. She completed her course of levofloxacin in the interim and also states that she will not be undergoing reconstructive surgery following discussion with her surgeons. 11/27/16. Seen by Dr. Cornell. The patient reports increased pain and some bloody drainage associated with the anterior neck soft tissue radiation ulcer. She also states that she's had a persistent and productive cough over the past few days. Her most recent wound culture grew MSSA and the prior grew a pansensitive Pseudomonas organism. Staff also report a new ulcer over the left anterior neck. 11/20/16. Seen by Finn Felton PA-C. The patient came in urgently today to be evaluated for increased bleeding and drainage from her neck ulcers which overly radiation damaged tissue. 11/14/16. Seen by Dr. Cornell. The patient continues to apply topical gentamicin to the chronic soft tissue radiation neck ulcers to treat the recent Pseudomonas positive wound culture. She does not report significant pain or increased drainage from these sites. She has an appointment with another surgeon on November 21 to further discuss reconstructive options regarding the narrowing of her stoma and significant soft tissue contractures around the anterior neck. 11/07/16. Seen by Dr. Cornell. The patient reports a new ulcer over the left side of her neck at an area of scarring associated with her chronic soft tissue radiation injury of the neck. She does not report significant pain nor drainage at the site nor from the chronic anterior nonpressure ulcer. Her last culture at that site grew Pseudomonas that is intermediately. 10/31/16. Seen by Dr. Cornell. The patient and her caregiver reports increased drainage associated with the chronic and progressive right anterior neck soft tissue radiation ulcer over the past week. They're having issues in terms of dressing changes and managing increased drainage and the patient also has a persistent and productive cough with mucus being expelled from the tracheostomy site. Of note, the caregiver states that she has been attempting to liaise with Dr. Lopez's office, ENT surgery at , regarding a follow up appointment to discuss reconstructive surgery in hopes of addressing the chronic skin contractures that are contributing heavily to the refractory nature of this neck ulcer. 10/23/16. Seen by Finn Felton PA-C. The patient reports no increase in pain or drainage from her neck ulcer. Her two ulcers have bridged into one ulcer. She has no new news regarding a surgical revision. 10/10/16. Seen by Dr. Cornell.The patient does not report increased pain or drainage associated with the chronic soft tissue neck radiation ulcers since her last visit. Her culture from the last visit grew diphtheroids and she's been applying topical gentamicin as recommended. According to her caregiver they have still not heard back regarding an appointment with her surgeon who is planning a revision for the stenosed tracheostomy site noting the tube is contributing significantly to the ulcer formation. She also does not report significant pain or drainage associated with the superficial abdominal abscess noted at her last visit. 10/03/16. Seen by Dr. Cornell. The patient continues to report some pain associated with the chronic neck soft tissue radiation ulcers. The patient caregiver feels the proximal ulcer continues to increase in size. They have not yet scheduled an appointment for revision surgery for the tracheostomy as was discussed last week. 09/26/16. Seen by Dr. Cornell. The patient continues to report some pain as well as persistent drainage associated with the chronic right neck soft-tissue radiation ulcers. 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 He is planning for a revision surgery to try to address this issue in the near future. 09/19/16. Seen by Dr. Cornell. The patient and her brother continue to report some pain associated with the chronic neck nonpressure ulcers but no increased drainage and they've been changing the silicon dressings as recommended to protect the soft-tissue radiation injured skin and protect against abrasion caused by the tracheosteomy tube. Of note, the patient feels as though the stoma may gradually be tightening as she continues to have some difficulty replacing the tube after taking it out. She also reports some persistent productive coughing and nasal drainage in the evenings and through the night and feels it may be related to allergies. 09/01/16. Seen by Dr. Cornell. The patient's brother who's present today reports that the patient's silicon dressings are being changed less frequently than recommended and in washing them the adherence is deteriorating which may be leading to loss of function in terms of protecting the underlying irradiated skin and neck ulcers. She does not report increased drainage or pain associated with the neck ulcers today. 08/28/16. Seen by Dr. Cornell. The patient removed her tracheostomy tube in clinic today and is having difficulty replacing it. She's a bit anxious at the time of exam but is breathing without distress or audible stridor. Regarding her chronic neck soft tissue radiation ulcers, there's no new issues to report and she's been dressing them as recommended. 08/21/16. Seen by Dr. Cornell. The patient reports continued pain and drainage associated with the chronic soft tissue radiation ulcer along the margin of her tracheostomy stoma. She and her caregiver are dressing it as recommended and she's completed her course of antibiotics those treating the recently cultured MRSA. 08/15/16. Seen by Dr. Cornell. The patient reports increased pain associated with the chronic soft tissue radiation neck ulcers since her last visit and her caregiver reports some thick overlying drainage around the mid-line ulcer adjacent to the tracheostomy stoma. She does not report fevers or feeling unwell however and has been applying topical antibiotic to the ulcers as recommended. 08/08/16. Seen by Dr. Cornell. The patient reports continued pain associated with the chronic anterior neck non-pressure ulcers and they've been applying topical gentamicin to treat the recurrent MRSA positive wound cutlures. She's also wearing her silicon dressing as recommended to help protect the soft tissue radiation injury of the skin from abrasion caused by her tracheostomy tube strap. 08/01/16. Seen by Dr. Cornell. The patient's caregiver reports improvement in terms of pain and drainage associated with the chronic neck ulcers. They've been applying topical gentamicin as recommended for the chronic wound infections. 07/23/16. Seen by Dr. Cornell. The patient's caregiver reports improvement in terms of pain and drainage associated with the chronic neck ulcers overlying the soft tissue radiation injury that follow treatment for her laryngeal cancer years ago. They've been applying topical gentamicin as recommended for the chronic wound infections. 07/09/16. Seen by Finn Felton PA-C. The patient reports she has run out of the silicone strips that were fabricated by [employer] to reduce abrasion from her laryngostomy collar. She is using scar fade strips which are not staying in place. Her neck ulcers continue to be present under the collar. 06/25/16. Seen by Dr. Cornell. The patient's caregiver reports improvement in terms of pain and drainage associated with the chronic neck ulcers. They've been applying topical gentamicin as recommended for the chronic wound infections. 06/11/16. Seen by Dr. Cornell. The patient reports improvement in terms of pain and drainage associated with the chronic neck ulcers. She completed her course of ciprofloxacin which was treating the recurrent ulcer infections and she continues to apply topical gentamicin to the ulcer beds. 06/04/16. Seen by Dr. Cornell. The patient continues to report some pain and minimal drainage associated with the chronic neck ulcers are complicated by underlying soft tissue radiation injury. She was just discharged from the hospital for tracheobronchitis and continues on ciprofloxacin with cultures that have grown Pseudomonas, Staph, and Haemophilus. She does not report adverse side effects from antibiotics nor fevers or feeling unwell today although she continues to have a mild cough. 05/26/16. Seen by Finn Felton PA-C. The patient reports no increase in drainage or pain from her neck ulcers. 05/16/16. Seen by Dr. Cornell. The patient does not report significant pain nor drainage associated with the recurrent neck soft tissue radiation ulcers since her last visit. She's been applying topical gentamicin as recommended and wearing the silicon dressings to protect from the trach tube strap rubbing on the irradiated skin.Also, her wound culture from the last visit grew MSSA. 05/09/16. Seen by Dr. Cornell. The patient feels her recurrent soft tissue radiation ulcers over the mid and left aspects of her neck are painful and draining for the past week. She reports wearing her silicon dressing but does not have it in place all of the time and has been leaving her tracheostomy tube strap off for extended periods during the day to help prevent abrasion. She's been applying topical gentamicin to the ulcers but is not currently on systemic antibiotics. 04/29/16. Seen by Finn Felton PA-C. The patient reports continued compliance with her silicone skin protector that she wears under her collar. She reports improvement in her neck ulcers, however she ran out of supplies a few days ago and now reports worsening of the ulcers. 04/11/16. Seen by Dr. Cornell. The patient reports decreased pain and drainage associated with the chronic neck non-pressure ulcers over the patient week and she's applying topical gentamicin to treat the chronic MRSA wound infection as recommended. She's also using silicon dressings to help better protect the soft tissue radiation injury to the neck which is heavily implicated in the recurrent and refractory nature of the ulcers. 04/04/16. Seen by Dr. Cornell. The patient reports an increase in the size and pain associated with the left neck non-pressure ulcer since her last visit. She's applying gentamicin ointment to all of the ulcers a recommended and using the silicon dressings to help prevent abrasion caused by the trach tube strap. 03/28/16. Seen by Dr. Cornell. The patient reports decreased pain and drainage associated with the chronic neck non-pressure ulcers over the patient week and she's restarted use of the silicon dressings again to protect the irradiated skin that's been breaking down under the trach strap and contributing to the recurrent and refractory nature of the ulcers. 03/21/16. Seen by Dr. Cornell. The patient reports decreased pain and drainage associated with the chronic neck non-pressure ulcers over the patient week and she continues applying topical gentamicin to treat the chronic MRSA wound infection. 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 03/13/15. Seen by Dr. Cornell. The patient reports decreased pain and drainage associated with the chronic neck non-pressure ulcers over the patient week since starting on doxycycline for a recurrent MRSA wound infection. She's now using silicon dressings to protect the irradiated skin over the neck that resulted from radiation therapy treating laryngeal cancer. She does not report adverse effects of the doxycycline and is also applying topical gentamicin daily to the ulcer sites. 03/06/16. Seen by Dr. Cornell. The patient reports persistent pain associated with the recurrent neck non-pressure ulcers and staff report they're larger and are draining based on the dressings. 02/28/16. Seen by Dr. Cornell. The patient returns with new ulcers overlying her soft tissue radiation neck injury that resulted following treatment for laryngeal cancer. She states she ran out of the silicon dressings she uses to protect the area from her trach tube strap and after this the ulcers appeared and are quite painful. Their draining however she does not report fevers. 11/28/15. Seen by Dr. Cornell. 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 11/21/15. Seen by Dr. Cornell. The patient reports some minimal pain associated with the chronic neck soft tissue radiation ulcer since her last visit. She also complains of right ear pain and has asked me to have look in the ear as it feels like there may be a foreign body present. She also reports a mild cough, sore throat, and feeling a bit unwell in general. 11/14/15. Seen by Dr. Cornell. The patient reports moderate pain but no significant drainage associated with the left neck soft tissue radiation ulcer since her last visit. 10/31/15. Seen by Dr. Cornell. The patient reports some pain associated with the left neck soft tissue radiation ulcer but no increased drainage from either ulcer nor pain associated with the middle soft tissue radiation ulcer. Her caregiver notes that they're running out of the silicon dressings and they've become nearly prohibitively expensive. 10/12/15 Seen by Finn Felton PA-C. The patient returns to our clinic after reconstructive scar- revision surgery on her radiation damaged neck. She has wounds that have been left to close by secondary intention and are slow to heal. In addition, her silicone strips that help hold her laringostomy collar in place continue to work well for her. 09/07/[address] Cornell. The patient presents with a new rash over the right neck overlying the soft tissue radiation injury. Of note, her very chronic wounds at the same site were recently healed. She dose not report pain, drainage, or skin breakdown associated with the rash. 08/24/[address] Cornell. The patient does not report pain or drainage associated with the chronic neck soft tissue radiation ulcers over the past few days and she's using the silicon dressings to cover the ulcers. 08/15/[address] Cornell. The patient nor her caregiver report significant pain or drainage from either the left or right neck soft tissue radiation ulcers over the past week and she's received her silicon dressings that are being used to prevent abrasion to the skin caused by her laryngostomy tube strap. 08/09/[address] Cornell. 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 Otherwise the right neck ulcers remain relatively stable and have minimal drainage over the past week. 08/02/[address] Cornell. The patient reports minimal discomfort associated with the chronic neck soft tissue radiation ulcers and her caregiver feels they've improved considerably over the past week while applying gentamicin ointment and using the silicon dressing to prevent abrasion from the trach strap. 07/26/[address] Cornell. The patient reports only moderate discomfort and minimal drainage associate with her remaining soft tissue radiation ulcers of the neck. 07/19/[address] Cornell. The patient's caregiver reports increased drainage on the dressings covering the neck soft tissue radiation ulcers and the patient reports some increased pain at the ulcer sites. They're also running out of the silicon dressings they' ve been using to protect the ulcers from abrasion caused by the overlying trach strap. She does not report any problems regarding the chronic left upper arm wound. 07/12/[address] Cornell. The patient does not report increased pain or drainage associated with her chronic neck soft tissue radiation ulcers and she's been using her silicon wound dressings daily. She feels her ulcers are much less painful since changing to the new dressings. 07/05/[address] Cornell. The patient reports a significant improvement in pain regarding her chronic neck soft tissue radiation ulcers since starting to use adherent silicon dressings to prevent abrasion caused by her trach strap. She does not report significant drainage from the ulcers. 06/22/[address] Cornell. The patient continues to report persistent pain associated with the chronic neck soft tissue radiation ulcers. 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 06/12/15 Seen by Finn Felton PA-C. The patient reports continued pain from her radiation neck ulcers. 06/05/15 Seen by Finn Felton PA-C. The patient reports continued pain and stable drainage from her neck radiation ulcers. She continues to use her favored dressings instead of ones that we have recommended for her. 05/21/15 Seen by Finn Felton PA-C. The patient reports continued pain and no change in drainage from her neck radiation ulcers and her arm and chest wounds. 05/08/15 Seen by Finn Felton PA-C. The patient reports continued pain and stable drainage from her neck radiation ulcers. Flores from [facility] attended part of the appointment to try fitting her for the laryngectomy collar protective prosthetic. 04/25/[address] Cornell. The patient continues to report significant pain associated with the chronic soft tissue radiation neck ulcers and the staff report at least moderate drainage on her dressings today. She does not report fevers or feeling unwell otherwise. 04/11/[address] Cornell. The patient been on levofloxacin and doxycycline for Pseudomonas and MRSA positive wounds cultures taken from her soft tissue radiation ulcers over the neck and around the laryngostomy wound. She still reports pain associated with the ulcers but indicates it's not as bad as last week. 04/05/[address] Cornell. The patient reports persistent pain associated with her neck soft tissue radiation ulcers. She's currently on levofloxacin and doxycycline for the Pseudomonas and MRSA positive culture taken at the last visit and she does not report adverse side effects. 03/28/2015 Seen by Finn Felton PA-C. The patient continues to complain of neck ulcer pain. In addition she again asks today why are they hurting. She has not been compliant with any of our attempts at specialized laryngectomy collar padding or dressings. 03/21/2015 Seen by Finn Felton PA-C. The patient returns with stable 6-7/10 constant pain from the radiation ulcers on her neck. She continues on Doxycycline and has finished her course of prednisone for a URI as prescribed by her PCP. He has recently not been able to keep the Radiagel sheets attached to her neck or tracheostomy collar and has gone back to using Xeroform gauze. 02/19/15 Seen by Finn Felton PA-C. The patient returns for evaluation of her radiation ulcers of the neck. She reports continued pain and her most recent dressings that we have trialed did not stay in place. 02/12/15 Seen by Finn Felton PA-C. The patient reports continued neck pain from her radiation ulcers as well as tightness in her surrounding neck tissues. She reports the pain is exacerbated by rubbing of her tracheostomy tube macias and by any palpation or instrumentation. Drainage has been minimal. 02/05/15 Seen by Finn Felton PA-C. The patient presents today with a new wound on her left lateral neck, on her irradiated tissue. This wound is 01/24/[address] Cornell. The patient reports a cough and feeling unwell the past few days. She continues on doxycycline and levofloxcacin for the recent MRSA and Pseudomonas positive wound culture. Of note, she arrives today with gauze dressings over her next ulcers as opposed to foam which has been recommended. 01/17/[address] Cornell. The patient's been started on doxycycline and levofloxacin for her wound culture from the last visit that grew MRSA again plus Pseudomonas which is new. She reports having a cough and low grade fever also and the staff report the left neck ulcer dressings as being quite wet. 01/12/[address] Cornell. The patient indicates the neck ulcer pain is a 6-7/ 10 today and states she's been adhering to our dressing change recommendations. She's not currently on antibiotics and does not report fever although she feels a bit under the weather. 01/05/[address] Cornell. The patient complains of 4/10 pain at the site of her remaining chronic neck ulcers. 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 12/18/14 Seen by Finn Felton PA-C. The patient continues to have difficulty securing her dressings and keeping them in place under her tracheostomy collar. She is planning on going deer hunting and will be away from our clinic for over 1 week. 12/12/[address] Cornell. The patient complains of significant right ear pain. Her left neck ulcer culture from the last visit grew MRSA and she's not currently on antibiotics at this time. Of note, the foam that we placed around the tracheostomy tube to prevent abrasion was not in place on the patient's arrival today. 12/08/[address] Cornell. The patient complains of some persistent pain at the site of the left neck ulcer but does not report fever or increased drainage. Of note, she's not changed her dressing since her last visit 3 days ago. 11/28/14 Seen by Finn Felton PA-C. The patient again reports right ear pain without drainage or disturbance in hearing. The dressing on her head wound has stayed in place and her neck dressings lasted less than 24hrs in place. Scalp wound pain has decreased. 11/28/14 Seen by Finn Felton PA-C. The patient has seen her PCP for her right ear issues and he has prescribed her Cefuroxime, which she is currently taking. She has kept her scalp dressing in place and reports continued neck pain and a new neck wound on the left. 11/14/14 Seen by Finn Felton PA-C. The patient's right sided neck wound and scalp wound are much improved today after she has been keeping her head wound covered and has loosened her trach collar. Both wounds are reportedly less painful than before. 11/07/14 Doc Z Surg: patient returns for follow-up of the radiation injury and mechanical abrasions wounds of the neck laterally and anteriorly adjacent to the tracheostomy straps which appear to have been chafing on this sensitive skin in the field of radiation. The padded protective dressing has been utilized since her last visit and shows marked improvement in all of the wounds. Also the scalp abrasions which appear to be fingernail scrapings have also improved markedly after the patient educated to avoid fingernails scratching on the scalp area. Question was raised regarding the possibly poor fitting tracheostomy tube but this appears normal and not problematic to my examination. At present I do not see any need for ENT reevaluation of the [id number] tracheostomy site. 10/26/[address] Cornell. The patient complains of recurrent right ear pain that's constant over the past week but does not report fever, sweats, or drainage from the ear. Her wound cultres from the scalp and neck ulcers grew MRSA on 10/04/14. She continues to report pain at these sites and has been unable to maintain dressings as recommended due to discomfort and the fact the scalp dressing falls off. 10/12/14 Seen by Finn Felton PA-C. The patient reports ear pain after completing HBOT. Her wounds still feel tight around her neck but are otherwise stable and more comfortable with her new foam neck dressings. 10/04/[address] Cornell. The patient feels the pain associated with her neck and scalp ulcers is improved and only noticeable intermittently. She arrived today with foam dressings over the neck ulcers which we started utilizing last week to minimize trauma from the tracheostomy tube harness to the skin and ulcers beneath. 09/27/[address] Cornell. The patient feels her neck ulcers and scalp wounds are less painful however the staff report that the dressing plan we implemented to help prevent abrasion to the neck ulcers does not seem to have been continued after the patient left clinic last week. She's now off of antibiotics and does not report increased drainage. 09/20/[address] Cornell. The patient feels her scalp and neck ulcer pain are improving since she's been on IV daptomycin. She also had a doppler study yesterday that rule out a left arm DVT however she still complains of swelling and discomfort in the arm. 09/06/[address] Cornell. The patient complains of continued pain and drainage associated with her scalp and neck ulcers. She's no longer on antibiotics and recently grew Enterococcus and resistant coag negative Staph from the ulcer sites respectively. 08/30/[address] Cornell. The patient reports continued pain at the neck and scalp ulcers and her scalp wound grew Enterococcus on 08/23/14. She's taking clindamycin and completed a course of azithromycin that were started in the ER due to a recurrent URI. 08/16/14 Seen by Finn Felton PA-C. The patient continues to take Keflex for her scalp wound bacterial infection. She reports it is now more painful and draining more than before. Her neck radiation wounds continue to feel tight. 08/14/14 Seen by Finn Felton PA-C. The patient complains of right ear pain and fullness which started today. She reports feeling like she might have a cold coming on. 08/09/[address] Cornell. The patient complains of persistent pain at the site of the neck ulcers and worsening pain at the scalp ulcer. She's taking doxycycline based on the most recent MSSA wound culture sensitivities from the neck ulcer and does not report any adverse side effects. 07/08/[address] Cornell. The patient feels the neck ulcer pain is improving and she's completed her course of doxycycline that was started last week. She still complains of significant pain a the site of the scalp lesion however. Her wound culture from 07/28 grew MSSA sensitive to doxycycline. 07/26/[address] Cornell. The patient complains of increased pain at the neck ulcers as well as the scalp lesion. She does not report increased drainage, fever, cough, or chills and states her previously reported right ear pain has improved. 07/14/[address] Cornell. The patient reports right ear pain with a sore throat but no fevers or cough. 07/11/14 Seen by Finn Felton PA-C. The patient reports less scalp pain and no drainage from her scalp wound. She continues to report a pulling type pain in and around her neck wounds. 07/04/14 Seen by Finn Felton PA-C. The patient has cut her fingernails short and reports that her scalp wound is hurting and itching less. She reports a new wound over an old abdominal scar today. It has been present for 5 days and she is not sure how it occurred. 06/20/14 The patient feels her neck ulcer pain as well as the scalp lesion pain have improved since starting doxycycline. She continues to apply hydrogel and Xeroform to the neck ulcers to keep them moist. Otherwise she's tolerating HBOT without difficulty and has made significant progress in the healing of the neck ulcers throughout this most recent series of dives. 06/13/14 The patient indicates that her neck ulcers 'feel tight' and she still has some discomfort at the scalp lesions. She also complains of significant pruritis in the area of the scalp lesions. She's been taking taking doxycycline for the past week to treat a MRSA positive culture of the scalp ulcer. 06/06/14 The patient reports continued pain from all of her wounds and frustration that her scalp wound has not healed despite her not scratching it. 05/31/14 The patient's here for HBOT today but complains of new left facial pain over the angle of the mandible that started yesterday. She does not complain of ear pain or an dental or intraoral pain but has been treated in the hospital recently for recurrent pneumonia. She's also been reviewed in the past 3 months by her oncologist and reportedly is cancer free. 05/30/14 The patient does not report increased pain or drainage from her neck wounds nor scalp lesion. 05/18/14 The patient complains of significant pain at the left 3rd finger wound as well as her chronic scalp wound. Otherwise she does not report significant pain nor drainage from the neck wounds. 05/12/14 The patient does not report increased pain or drainage from her neck ulcers nor the wound on the scalp. 05/04/14 The patient reports increased pain at the left neck wound and apparently the barrier dressing slipped down and her guaze became adherent resulting in a skin tear upon removal. Otherwise she continues to complain of pain at both neck wounds and the scalp wound. 05/02/14 The patient was seen today in the HBOT treatment room for complaints of a productive cough. She was recently discharged from the hospital with a diagnosis of tracheobronchitis and is finishing a course of Levaquin. Cough is described as yellow and thick and is difficult to clear from her tracheostomy. 04/21/14 The patient complains of persistent ear pain in the right ear despite using antibiotic drops Rx'd by her ENT provider last week. She does not report drainage or fever. 04/18/14 The patient states her cough is improving and she's still on antibiotics from her recent admission for pneumonia. She does not report increased drainage or pain from the neck ulcers but states her right ear pain has returned. She was seen by ENT who felt the lesion in the external canal was traumatic and she was given an Rx for ear drops which she states she's been using. She also reports recurrence of the painful left scalp wound that was recently healed. 04/11/14 The patient complains of a cough productive of green sputum for the past few days that's particularly worse when lying flat. She indicates that she feels generally unwell and weak and is questioning whether she can tolerate HBOT today. 04/05/14 The patient continues to complain of right ear pain however does not report bleeding from the ear today. Of note, she was reviewed for this problem last week and a shallow ulcer in the right external ear canal was the only finding. 03/30/14 The patient reports continued 5/10 pain from her neck wound which is described as a constant, pulling type pain, which is exacerbated by flexing, extending or rotating her neck. 03/29/14 The patient completed her HBOT dive today and now complains of blood draining from the right ear. She does not report pain now nor during the dive today. 03/23/14 The patient reports increased pain from her medial neck wounds as well as from her scalp wound. The pain is described as a throbbing and sometimes pulling pain that is constant in nature and has no exacerbating factors, nor is it associated with any activity. She does not report fever, chills or increased wound drainage. Additionally the patient reports her [facility] doctors are considering a reconstructive surgical revision of her neck once her current wounds heal. She brings with her today a note from her [facility] doctors on a prescription pad, on which is written Please continue hyperbaric oxygen therapy. 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/14) Ear pain (right side; recurrent) Chronic ulcer (scalp; Enterococcus positive culture on 08/23/14; MRSA positive on 10/04/14) Surgical History This information was obtained from the patient Patient has a surgical history of: Total abdominal hysterectomy with BSO (04/1992) Colon biopsy (11/1997) Lipoma in right axilla (07/1998) Appendectomy (1992) Laryngopharynectomy - 08/14/2009 All teeth extracted Left Myringotomy - 07/22/2011 Fibrin Removal on neck Complaints and Symptoms This information was obtained from the patient Patient complains of: General Notes: I have reviewed and concur with the Review of Systems and Past Family Social History documents completed by the clinician, I have reviewed and concur with the Wound Assessment document completed by the clinician Ear/Nose/Mouth/Throat: Ear Pain Integumentary (Hair/Skin/Nails): Open Sore Musculoskeletal: Deformities, Muscle Weakness Prior Wound History: Bleeding, Drainage, Erythema, Pain Patient denies complaints or symptoms related to: Cardiovascular (Central): Irregular heart beat Constitutional Symptoms (General Health): Chills, Fever, Marked Weight Change Ear/Nose/Mouth/Throat: Hearing Loss / Aid Gastrointestinal (GI): Nausea / Vomiting, Stomach/abdominal pain Hematologic/Lymphatic: Bleeding / Clotting Disorders, Bleeding Tendency Neurological: Loss of Protective Sensation Prior Wound History: Malodor Respiratory: Cough, Oxygen Use, Shortness of Breath OBJECTIVE Constitutional Vital signs reviewed and noted. Well developed. Alert. Clean appearing.. Height/ Length: 66 in (167.64 cm), Weight: 226.2 lbs (102.82 kgs), BMI: 36.5, Temperature: 98.0 ?F ( 36.67 ?C), Pulse: 81 bpm, Respiratory Rate: 18 breaths/min, Blood Pressure: 134/81 mmHg, Pulse Oximetry: 96 %. Neck: Chronic skin contractures stable. Respiratory: No respiratory distress. Even respirations and without use of accessory muscles.. Integumentary (Hair, Skin) Mild periwound erythema with overlyng yellow drainage. Refer to appropriate clinician wound documentation for this visit; anterior neck ulcer extends to subcut and is longer and extending along a chord of scar tissue adjacent and right of the tracheostomy site; larger than on previous review. Wound #36 Right, Proximal Neck is an acute Full Thickness Radiation Wound and has received a status of Not Healed. Subsequent wound encounter measurements are 7.8cm length x 1.1cm width x 0.1cm depth, with an area of 8.58 sq cm and a volume of 0.858 cubic cm. No tunneling has been noted. No sinus tract has been noted. No undermining has been noted. There is a large amount of sero-sanguineous drainage noted which has no odor. The patient reports a wound pain of level 7/10. The wound margin is attached. Wound bed has Yes epithelialization, No eschar, Yes slough, Yes pink, firm granulation. The periwound skin texture is normal. The periwound skin moisture is normal. The periwound skin color is normal. The temperature of the periwound skin is WNL. Periwound skin does not exhibit signs or symptoms of infection. Local Pulse is N/A. Neurological: Cranial nerves grossly intact with symmetric function normal by informal observation.. ASSESSMENT Active Problems ICD-10 (Encounter Diagnosis) S11.89XD - Other open wound of other specified part of neck, subsequent encounter (Encounter Diagnosis) L59.8 - Other specified disorders of the skin and subcutaneous tissue related to radiation (Encounter Diagnosis) L98.492 - Non-pressure chronic ulcer of skin of other sites with fat layer exposed (Encounter Diagnosis) J40 - Bronchitis, not specified as acute or chronic PROCEDURES Wound #36 Wound #36 (Radiation Wound) is located on the right, proximal neck. A skin/ subcutaneous tissue level surgical debridement with a total area debrided of 9.36 sq cm was performed by Duy Cornell MD. Subcutaneous was removed along with devitalized tissue: slough. The following instrument(s) were used: curette. Pain control was achieved using EMLA lidocaine/prilocaine 2.5%/2.5%. A time out was conducted prior to the start of the procedure. A minimal amount of bleeding was controlled with n/a. The procedure was tolerated well with a pain level of 0 throughout and a pain level of 0 following the procedure. Post Debridement Measurements: 7.8cm length x 1.2cm width x 0.2cm depth; with an area of 9.36 sq cm and a volume of 1.872 cubic cm; Additional Information Muscle fascia or bone removed and sent to pathology?: No PLAN Wound Orders: Wound #36 Right, Proximal Neck Anesthetic Topical Xylocaine to wound bed. - Lidocaine in clinic only. Cleanser Cleanse Wound: - Normal saline and gauze. May use distilled water at home. May Shower. - Avoid direct contact with shower water at wound/dressing site. Dressings Primary dressing: - Alginate Cover and secure with: - Thin hydrocolloid surgical dressing cut to surround trach site. Change Dressing: - Every two days Follow-Up Appointments Return Appointment: - - One week. Other information: If you develop fever, chills, increased pain, drainage, redness or swelling please call our office. If after hours, respond to the ER. Should you experience any significant changes in your wound(s) or have any questions regarding your home care instructions please contact the wound center @ [phone]. If after hours, contact your primary care physician or go to the [facility]. Scribing Attestation I attest, as the nurse, that I scribed these orders for the physician. Laboratory: Culture Wound - Right neck #36 General Notes: We will call you if there is any need of antibiotics. I've reviewed the clinician's documentation and agree with the evaluation and plan as written. In addition, the patient's ulcer demonstrates evidence of non-viable devitalized tissue which will continue to benefit from sharp debridement to help promote granulation and expedite healing. Also, It's likely her bronchitis and cough via her tracheostomy is contributing to contamination of the neck ulcer dressings. As such, I've strongly advised that she change he dressing every other day as recommended. I'll also consider adding and antibiotic pending the wound culture results noting her history of MRSA and Pseudomonas URI's. Electronic Signature(s) Signed By: Date: Duy Cornell MD 10/12/2017 09:40:37 Entered By: Duy Cornell on 10/12/2017 09:37:39
== END ==
PROVIDERS: Visit Provider Internal Medicine
DX: L59.8 Other specified disorders of the skin and subcutaneous tissue related to radiation (principal); S11.89XA Other open wound of other specified part of neck, initial encounter; L98.492 Non-pressure chronic ulcer of skin of other sites with fat layer exposed; J40 Bronchitis, not specified as acute or chronic; Z91.19 Patient's noncompliance with other medical treatment and regimen; J95.00 Unspecified tracheostomy complication
CPT/HCPCS: 11042; 87070; 87075; 87077; 87147; 87186; 87205

== ENCOUNTER → 2017-10-13 15:03 | Outpatient (CLI) | payer OTHER, MEDICAID, SELFPAY ==
[2017-09-21 21:10] VITALS: BMI 32.3
--- NOTE | 2017-10-13 | OV.WND_ITS ---
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 Allergies Penicillins (Severity: Moderate, Reaction: rash and hives), Vicodin (Severity: Moderate, Reaction: Rash and hives), ibuprofen (Severity: Moderate, Reaction: Rash and hives), Gelusil Antacid and Anti-Gas (Severity: Moderate, Reaction: increase in stomach discomfort), Septra (Severity: Moderate, Reaction: GI upset), Flagyl (Severity: Moderate, Reaction: Rash), Benadryl (Reaction: Rash), ranitidine (Severity: Moderate, Reaction: SOB, dizzy) HPI This information was obtained from the patient 10/13/17. Seen by Dr. Cornell. The patient does not report increased pain associated with the anterior neck soft tissue radiation ulcer since her previous visit ad she continues on doxycycline for bronchitis. Her dressings have been adjusted to facilitate frequent changing in light of her coughing and presumed contamination of the ulcer via her tracheostomy. 10/09/17. Seen by Dr. Cornell. The patient's now on doxycycline for recurrence of bronchitis. 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 The dressing has been chosen specifically to help prevent abrasion to the irradiated skin caused by the tracheostomy tube strap. 10/02/17. Seen by Dr. Cornell. 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 She does not report significant pain or drainage from the ulcer nor side effects of the antibiotics. The ulcer had deteriorated considerably over the previous 2 weeks and we adjusted dressings to better protect against abrasion caused by her tracheostomy tube and strap. 09/28/17. Seen by Dr. Cornell. The patient continues to report pain associated with the anterior soft tissue radiation neck ulcer and her wound culture from week grew Group A strep, Staph, and diptheroids. She's not currently on antibiotics and we've changed her dressing to better protect against abrasion from the tracheostomy tube and strap. 09/24/17. Seen by Dr. Cornell. The patient does not report increased pain associated with the anterior neck soft tissue radiation ulcer however the nurse feels the ulcer is longer than on her previous visit. 09/17/17. Seen by Dr. Cornell. 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 She has an appointment tomorrow with her PCP to address this problem. Otherwise she does not report increased pain or drainage associated with the ulcer however the nurse reports the ulcer as being larger this week. 09/10/17. Seen by Dr. Cornell. 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 Her culture at the last visit grew Diptherioids and he's applying topical gentamicin with dressing changes which has been adjusted to better protect the site from the abrading ET tube and strap. 09/07/17. Seen by Dr. Cornell. 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 The staff also feels the ulcer's increased in size and she's no long on oral antibiotics that were prescribed recently for a Enterococcus positive wound culture. 08/31/17. Seen by Finn Felton PA-C. The patient reports pain associated with her chronic neck radiation ulcer. 08/24/17. Seen by Dr. Cornell. 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 She continues to apply topical gentamicin to the ulcer to treat the Enterococcus positive wound culture as recommended. 08/14/17. Seen by Dr. Cornell. The patient's been applying topical gentamicin daily to the soft tissue radiation neck ulcer to treat the recent Enterococcus positive wound culture and she's completed her course of levofloxacin. 08/07/17. Seen by Dr. Cornell. 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 She does not report increased pain nor drainage from the site however nor other acute issues today. 07/31/17. Seen by Dr. Cornell. 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 07/24/17. Seen by Dr. Cornell. 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 07/17/17. Seen by Dr. Cornell. 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 Of note, the patient also states she fell from her bed a few days ago resulting in bilateral black eyes. 07/10/2017. Seen by Dr. Cornell. 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 She does not report increased drainage however nor other acute issues. 07/03/17. Seen by Dr. Cornell. 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 06/19/17. Seen by Dr. Cornell. 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 06/09/17. Seen by Dr. Cornell. The patient reports some pain associated with the anterior neck right sided soft tissue radiation ulcer and continues on doxycycline and levofloxacin following a recent admission for a COPD exacerbation. She does not report increased drainage from the ulcer sites and is using Xeroform and Scar-away dressings as recommended. 06/01/17. Seen by Dr. Cornell. The patient was admitted to the hospital for a COPD exacerbation and is now on oral antibiotics following discharge. She reports some ear pain but otherwise no acute issues. Regarding her soft tissue radiation ulcers over the anterior neck she is now using the silicone dressings and Xeroform as recommended and does not report significant pain or drainage.Of note, these are complicated significantly by her tracheostomy tube and attached strap that tends to shear the irradiated skin causing ulcers. 05/25/17. Seen by Dr. Cornell. The patient reports pain associated with the chronic soft tissue radiation neck ulcers. She states her dressings are not on continuously and that she has been wearing her tracheostomy strap for extended periods at home despite our advice to not use it if possible. 05/18/17. Seen by Finn Felton PA-C. The patient reports continued pain from her soft tissue radiation ulcers of the neck. She has finished a once daily antibiotic for a URI but does not recall which antibiotic it was. 05/11/17. Seen by Finn Felton PA-C. The patient reports increased pain and increased drainage from her soft tissue radiation ulcers of the neck. 04/23/17. Similarly Dr. Cornell. The patient does not report increased pain nor drainage associated with the chronic neck soft tissue radiation ulcers since her last visit. 04/16/17. Seen by Finn Felton PA-C. The patient reports that the Radia-gel dressings did not stay in place and the tape used to secure them caused skin tears. 04/09/17. Seen by Finn Felton PA-C. The patient reports no increase in drainage from her radiation ulcers of the neck. 04/02/17. Seen by Finn Felton PA-C. The patient reports her usual amount of pain from her anterior neck ulcers. 03/26/17. Seen by Dr. Cornell. 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 She was discharged recently from [facility] following treatment for an acute URI and is now on levofloxacin. 03/19/17. Seen by Dr. Cornell. The patient does not report significant pain associated with chronic anterior neck soft tssue radiation ulcer since her last visit. 03/12/17. Seen by Dr. Cornell. The patient reports increased pain associated with the anterior neck soft tissue radiation ulcers. Of note, she is reusing her silicon dressings and washing them despite being advised not to do this in the past. She has very limited financial resources that is leading her to do this. 03/04/17. Seen by Dr. Cornell. 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 She continues on doxycycline for a cat bite at the right arm without reported adverse side effects and feels this is improving. There are also no new issues regarding his left neck nonpressure ulcer. 02/24/17. Seen by Dr. Cornell. 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 She was seen in the ER for this and had a CT performed that showed cellulitis but no associated abscess. She was started on levofloxacin at that visit. Also, she was to start doxycycline following her last wound care visit for a cat bite of the right arm however states the antibiotic was not covered by insurance so she has not started this. Otherwise, she does not report fevers or feeling unwell in general. 02/17/17. Seen by Dr. Cornell. The patient reports continued pain associated with the anterior and left lateral neck soft tissue radiation ulcers since her last visit. She is not currently on antibiotics. She also reports a cat bite of the right arm that's been bleeding and painful for the past 2 days since it occurred. 02/10/17. Seen by Finn Felton PA-C. The patient reports a new ulcer on her left neck , in the irradiated area from her previous radiation treatment. 01/16/17. Seen by Dr. Cornell. The patient reports some moderate pain and drainage associated with her chronic neck soft tissue radiation ulcers since her last visit. 01/09/17. Seen by Dr. Cornell. The patient does not report significant pain or increased drainage associated with her chronic neck soft tissue radiation ulcers since her last visit. Her recent wound culture grew ocampo-sensitive Staph aureus and she's applying topical gentamicin as recommended. 01/01/17. Seen by Finn Felton PA-C. The patient reports increased pain and drainage from her chronic neck ulcers which overly an irradiated field. 12/17/16. Seen by Dr. Cornell. The patient does not report significant pain or increased drainage associated with her chronic neck soft tissue radiation ulcers since her last visit. She'll be leaving for a hunting trip and will be gone until December 31. 12/11/16. Seen by Dr. Cornell. The patient does not report significant pain nor drainage associated with chronic neck soft tissue radiation ulcers since her last visit. She completed her course of levofloxacin in the interim and also states that she will not be undergoing reconstructive surgery following discussion with her surgeons. 11/27/16. Seen by Dr. Cornell. The patient reports increased pain and some bloody drainage associated with the anterior neck soft tissue radiation ulcer. She also states that she's had a persistent and productive cough over the past few days. Her most recent wound culture grew MSSA and the prior grew a pansensitive Pseudomonas organism. Staff also report a new ulcer over the left anterior neck. 11/20/16. Seen by Finn Felton PA-C. The patient came in urgently today to be evaluated for increased bleeding and drainage from her neck ulcers which overly radiation damaged tissue. 11/14/16. Seen by Dr. Cornell. The patient continues to apply topical gentamicin to the chronic soft tissue radiation neck ulcers to treat the recent Pseudomonas positive wound culture. She does not report significant pain or increased drainage from these sites. She has an appointment with another surgeon on November 21 to further discuss reconstructive options regarding the narrowing of her stoma and significant soft tissue contractures around the anterior neck. 11/07/16. Seen by Dr. Cornell. The patient reports a new ulcer over the left side of her neck at an area of scarring associated with her chronic soft tissue radiation injury of the neck. She does not report significant pain nor drainage at the site nor from the chronic anterior nonpressure ulcer. Her last culture at that site grew Pseudomonas that is intermediately. 10/31/16. Seen by Dr. Cornell. The patient and her caregiver reports increased drainage associated with the chronic and progressive right anterior neck soft tissue radiation ulcer over the past week. They're having issues in terms of dressing changes and managing increased drainage and the patient also has a persistent and productive cough with mucus being expelled from the tracheostomy site. Of note, the caregiver states that she has been attempting to liaise with Dr. Lopez's office, ENT surgery at , regarding a follow up appointment to discuss reconstructive surgery in hopes of addressing the chronic skin contractures that are contributing heavily to the refractory nature of this neck ulcer. 10/23/16. Seen by Finn Felton PA-C. The patient reports no increase in pain or drainage from her neck ulcer. Her two ulcers have bridged into one ulcer. She has no new news regarding a surgical revision. 10/10/16. Seen by Dr. Cornell.The patient does not report increased pain or drainage associated with the chronic soft tissue neck radiation ulcers since her last visit. Her culture from the last visit grew diphtheroids and she's been applying topical gentamicin as recommended. According to her caregiver they have still not heard back regarding an appointment with her surgeon who is planning a revision for the stenosed tracheostomy site noting the tube is contributing significantly to the ulcer formation. She also does not report significant pain or drainage associated with the superficial abdominal abscess noted at her last visit. 10/03/16. Seen by Dr. Cornell. The patient continues to report some pain associated with the chronic neck soft tissue radiation ulcers. The patient caregiver feels the proximal ulcer continues to increase in size. They have not yet scheduled an appointment for revision surgery for the tracheostomy as was discussed last week. 09/26/16. Seen by Dr. Cornell. The patient continues to report some pain as well as persistent drainage associated with the chronic right neck soft-tissue radiation ulcers. 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 He is planning for a revision surgery to try to address this issue in the near future. 09/19/16. Seen by Dr. Cornell. The patient and her brother continue to report some pain associated with the chronic neck nonpressure ulcers but no increased drainage and they've been changing the silicon dressings as recommended to protect the soft-tissue radiation injured skin and protect against abrasion caused by the tracheosteomy tube. Of note, the patient feels as though the stoma may gradually be tightening as she continues to have some difficulty replacing the tube after taking it out. She also reports some persistent productive coughing and nasal drainage in the evenings and through the night and feels it may be related to allergies. 09/01/16. Seen by Dr. Cornell. The patient's brother who's present today reports that the patient's silicon dressings are being changed less frequently than recommended and in washing them the adherence is deteriorating which may be leading to loss of function in terms of protecting the underlying irradiated skin and neck ulcers. She does not report increased drainage or pain associated with the neck ulcers today. 08/28/16. Seen by Dr. Cornell. The patient removed her tracheostomy tube in clinic today and is having difficulty replacing it. She's a bit anxious at the time of exam but is breathing without distress or audible stridor. Regarding her chronic neck soft tissue radiation ulcers, there's no new issues to report and she's been dressing them as recommended. 08/21/16. Seen by Dr. Cornell. The patient reports continued pain and drainage associated with the chronic soft tissue radiation ulcer along the margin of her tracheostomy stoma. She and her caregiver are dressing it as recommended and she's completed her course of antibiotics those treating the recently cultured MRSA. 08/15/16. Seen by Dr. Cornell. The patient reports increased pain associated with the chronic soft tissue radiation neck ulcers since her last visit and her caregiver reports some thick overlying drainage around the mid-line ulcer adjacent to the tracheostomy stoma. She does not report fevers or feeling unwell however and has been applying topical antibiotic to the ulcers as recommended. 08/08/16. Seen by Dr. Cornell. The patient reports continued pain associated with the chronic anterior neck non-pressure ulcers and they've been applying topical gentamicin to treat the recurrent MRSA positive wound cutlures. She's also wearing her silicon dressing as recommended to help protect the soft tissue radiation injury of the skin from abrasion caused by her tracheostomy tube strap. 08/01/16. Seen by Dr. Cornell. The patient's caregiver reports improvement in terms of pain and drainage associated with the chronic neck ulcers. They've been applying topical gentamicin as recommended for the chronic wound infections. 07/23/16. Seen by Dr. Cornell. The patient's caregiver reports improvement in terms of pain and drainage associated with the chronic neck ulcers overlying the soft tissue radiation injury that follow treatment for her laryngeal cancer years ago. They've been applying topical gentamicin as recommended for the chronic wound infections. 07/09/16. Seen by Finn Felton PA-C. The patient reports she has run out of the silicone strips that were fabricated by [employer] to reduce abrasion from her laryngostomy collar. She is using scar fade strips which are not staying in place. Her neck ulcers continue to be present under the collar. 06/25/16. Seen by Dr. Cornell. The patient's caregiver reports improvement in terms of pain and drainage associated with the chronic neck ulcers. They've been applying topical gentamicin as recommended for the chronic wound infections. 06/11/16. Seen by Dr. Cornell. The patient reports improvement in terms of pain and drainage associated with the chronic neck ulcers. She completed her course of ciprofloxacin which was treating the recurrent ulcer infections and she continues to apply topical gentamicin to the ulcer beds. 06/04/16. Seen by Dr. Cornell. The patient continues to report some pain and minimal drainage associated with the chronic neck ulcers are complicated by underlying soft tissue radiation injury. She was just discharged from the hospital for tracheobronchitis and continues on ciprofloxacin with cultures that have grown Pseudomonas, Staph, and Haemophilus. She does not report adverse side effects from antibiotics nor fevers or feeling unwell today although she continues to have a mild cough. 05/26/16. Seen by Finn Felton PA-C. The patient reports no increase in drainage or pain from her neck ulcers. 05/16/16. Seen by Dr. Cornell. The patient does not report significant pain nor drainage associated with the recurrent neck soft tissue radiation ulcers since her last visit. She's been applying topical gentamicin as recommended and wearing the silicon dressings to protect from the trach tube strap rubbing on the irradiated skin.Also, her wound culture from the last visit grew MSSA. 05/09/16. Seen by Dr. Cornell. The patient feels her recurrent soft tissue radiation ulcers over the mid and left aspects of her neck are painful and draining for the past week. She reports wearing her silicon dressing but does not have it in place all of the time and has been leaving her tracheostomy tube strap off for extended periods during the day to help prevent abrasion. She's been applying topical gentamicin to the ulcers but is not currently on systemic antibiotics. 04/29/16. Seen by Finn Felton PA-C. The patient reports continued compliance with her silicone skin protector that she wears under her collar. She reports improvement in her neck ulcers, however she ran out of supplies a few days ago and now reports worsening of the ulcers. 04/11/16. Seen by Dr. Cornell. The patient reports decreased pain and drainage associated with the chronic neck non-pressure ulcers over the patient week and she's applying topical gentamicin to treat the chronic MRSA wound infection as recommended. She's also using silicon dressings to help better protect the soft tissue radiation injury to the neck which is heavily implicated in the recurrent and refractory nature of the ulcers. 04/04/16. Seen by Dr. Cornell. The patient reports an increase in the size and pain associated with the left neck non-pressure ulcer since her last visit. She's applying gentamicin ointment to all of the ulcers a recommended and using the silicon dressings to help prevent abrasion caused by the trach tube strap. 03/28/16. Seen by Dr. Cornell. The patient reports decreased pain and drainage associated with the chronic neck non-pressure ulcers over the patient week and she's restarted use of the silicon dressings again to protect the irradiated skin that's been breaking down under the trach strap and contributing to the recurrent and refractory nature of the ulcers. 03/21/16. Seen by Dr. Cornell. The patient reports decreased pain and drainage associated with the chronic neck non-pressure ulcers over the patient week and she continues applying topical gentamicin to treat the chronic MRSA wound infection. 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 03/13/15. Seen by Dr. Cornell. The patient reports decreased pain and drainage associated with the chronic neck non-pressure ulcers over the patient week since starting on doxycycline for a recurrent MRSA wound infection. She's now using silicon dressings to protect the irradiated skin over the neck that resulted from radiation therapy treating laryngeal cancer. She does not report adverse effects of the doxycycline and is also applying topical gentamicin daily to the ulcer sites. 03/06/16. Seen by Dr. Cornell. The patient reports persistent pain associated with the recurrent neck non-pressure ulcers and staff report they're larger and are draining based on the dressings. 02/28/16. Seen by Dr. Cornell. The patient returns with new ulcers overlying her soft tissue radiation neck injury that resulted following treatment for laryngeal cancer. She states she ran out of the silicon dressings she uses to protect the area from her trach tube strap and after this the ulcers appeared and are quite painful. Their draining however she does not report fevers. 11/28/15. Seen by Dr. Cornell. 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 11/21/15. Seen by Dr. Cornell. The patient reports some minimal pain associated with the chronic neck soft tissue radiation ulcer since her last visit. She also complains of right ear pain and has asked me to have look in the ear as it feels like there may be a foreign body present. She also reports a mild cough, sore throat, and feeling a bit unwell in general. 11/14/15. Seen by Dr. Cornell. The patient reports moderate pain but no significant drainage associated with the left neck soft tissue radiation ulcer since her last visit. 10/31/15. Seen by Dr. Cornell. The patient reports some pain associated with the left neck soft tissue radiation ulcer but no increased drainage from either ulcer nor pain associated with the middle soft tissue radiation ulcer. Her caregiver notes that they're running out of the silicon dressings and they've become nearly prohibitively expensive. 10/12/15 Seen by Finn Felton PA-C. The patient returns to our clinic after reconstructive scar- revision surgery on her radiation damaged neck. She has wounds that have been left to close by secondary intention and are slow to heal. In addition, her silicone strips that help hold her laringostomy collar in place continue to work well for her. 09/07/[address] Cornell. The patient presents with a new rash over the right neck overlying the soft tissue radiation injury. Of note, her very chronic wounds at the same site were recently healed. She dose not report pain, drainage, or skin breakdown associated with the rash. 08/24/[address] Cornell. The patient does not report pain or drainage associated with the chronic neck soft tissue radiation ulcers over the past few days and she's using the silicon dressings to cover the ulcers. 08/15/[address] Cornell. The patient nor her caregiver report significant pain or drainage from either the left or right neck soft tissue radiation ulcers over the past week and she's received her silicon dressings that are being used to prevent abrasion to the skin caused by her laryngostomy tube strap. 08/09/[address] Cornell. 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 Otherwise the right neck ulcers remain relatively stable and have minimal drainage over the past week. 08/02/[address] Cornell. The patient reports minimal discomfort associated with the chronic neck soft tissue radiation ulcers and her caregiver feels they've improved considerably over the past week while applying gentamicin ointment and using the silicon dressing to prevent abrasion from the trach strap. 07/26/[address] Cornell. The patient reports only moderate discomfort and minimal drainage associate with her remaining soft tissue radiation ulcers of the neck. 07/19/[address] Cornell. The patient's caregiver reports increased drainage on the dressings covering the neck soft tissue radiation ulcers and the patient reports some increased pain at the ulcer sites. They're also running out of the silicon dressings they' ve been using to protect the ulcers from abrasion caused by the overlying trach strap. She does not report any problems regarding the chronic left upper arm wound. 07/12/[address] Cornell. The patient does not report increased pain or drainage associated with her chronic neck soft tissue radiation ulcers and she's been using her silicon wound dressings daily. She feels her ulcers are much less painful since changing to the new dressings. 07/05/[address] Cornell. The patient reports a significant improvement in pain regarding her chronic neck soft tissue radiation ulcers since starting to use adherent silicon dressings to prevent abrasion caused by her trach strap. She does not report significant drainage from the ulcers. 06/22/[address] Cornell. The patient continues to report persistent pain associated with the chronic neck soft tissue radiation ulcers. 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 06/12/15 Seen by Finn Felton PA-C. The patient reports continued pain from her radiation neck ulcers. 06/05/15 Seen by Finn Felton PA-C. The patient reports continued pain and stable drainage from her neck radiation ulcers. She continues to use her favored dressings instead of ones that we have recommended for her. 05/21/15 Seen by Finn Felton PA-C. The patient reports continued pain and no change in drainage from her neck radiation ulcers and her arm and chest wounds. 05/08/15 Seen by Finn Felton PA-C. The patient reports continued pain and stable drainage from her neck radiation ulcers. Flores from [facility] attended part of the appointment to try fitting her for the laryngectomy collar protective prosthetic. 04/25/[address] Cornell. The patient continues to report significant pain associated with the chronic soft tissue radiation neck ulcers and the staff report at least moderate drainage on her dressings today. She does not report fevers or feeling unwell otherwise. 04/11/[address] Cornell. The patient been on levofloxacin and doxycycline for Pseudomonas and MRSA positive wounds cultures taken from her soft tissue radiation ulcers over the neck and around the laryngostomy wound. She still reports pain associated with the ulcers but indicates it's not as bad as last week. 04/05/[address] Cornell. The patient reports persistent pain associated with her neck soft tissue radiation ulcers. She's currently on levofloxacin and doxycycline for the Pseudomonas and MRSA positive culture taken at the last visit and she does not report adverse side effects. 03/28/2015 Seen by Finn Felton PA-C. The patient continues to complain of neck ulcer pain. In addition she again asks today why are they hurting. She has not been compliant with any of our attempts at specialized laryngectomy collar padding or dressings. 03/21/2015 Seen by Finn Felton PA-C. The patient returns with stable 6-7/10 constant pain from the radiation ulcers on her neck. She continues on Doxycycline and has finished her course of prednisone for a URI as prescribed by her PCP. He has recently not been able to keep the Radiagel sheets attached to her neck or tracheostomy collar and has gone back to using Xeroform gauze. 02/19/15 Seen by Finn Felton PA-C. The patient returns for evaluation of her radiation ulcers of the neck. She reports continued pain and her most recent dressings that we have trialed did not stay in place. 02/12/15 Seen by Finn Felton PA-C. The patient reports continued neck pain from her radiation ulcers as well as tightness in her surrounding neck tissues. She reports the pain is exacerbated by rubbing of her tracheostomy tube macias and by any palpation or instrumentation. Drainage has been minimal. 02/05/15 Seen by Finn Felton PA-C. The patient presents today with a new wound on her left lateral neck, on her irradiated tissue. This wound is 01/24/[address] Cornell. The patient reports a cough and feeling unwell the past few days. She continues on doxycycline and levofloxcacin for the recent MRSA and Pseudomonas positive wound culture. Of note, she arrives today with gauze dressings over her next ulcers as opposed to foam which has been recommended. 01/17/[address] Cornell. The patient's been started on doxycycline and levofloxacin for her wound culture from the last visit that grew MRSA again plus Pseudomonas which is new. She reports having a cough and low grade fever also and the staff report the left neck ulcer dressings as being quite wet. 01/12/[address] Cornell. The patient indicates the neck ulcer pain is a 6-7/ 10 today and states she's been adhering to our dressing change recommendations. She's not currently on antibiotics and does not report fever although she feels a bit under the weather. 01/05/[address] Cornell. The patient complains of 4/10 pain at the site of her remaining chronic neck ulcers. 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 12/18/14 Seen by Finn Felton PA-C. The patient continues to have difficulty securing her dressings and keeping them in place under her tracheostomy collar. She is planning on going deer hunting and will be away from our clinic for over 1 week. 12/12/[address] Cornell. The patient complains of significant right ear pain. Her left neck ulcer culture from the last visit grew MRSA and she's not currently on antibiotics at this time. Of note, the foam that we placed around the tracheostomy tube to prevent abrasion was not in place on the patient's arrival today. 12/08/[address] Cornell. The patient complains of some persistent pain at the site of the left neck ulcer but does not report fever or increased drainage. Of note, she's not changed her dressing since her last visit 3 days ago. 11/28/14 Seen by Finn Felton PA-C. The patient again reports right ear pain without drainage or disturbance in hearing. The dressing on her head wound has stayed in place and her neck dressings lasted less than 24hrs in place. Scalp wound pain has decreased. 11/28/14 Seen by Finn Felton PA-C. The patient has seen her PCP for her right ear issues and he has prescribed her Cefuroxime, which she is currently taking. She has kept her scalp dressing in place and reports continued neck pain and a new neck wound on the left. 11/14/14 Seen by Finn Felton PA-C. The patient's right sided neck wound and scalp wound are much improved today after she has been keeping her head wound covered and has loosened her trach collar. Both wounds are reportedly less painful than before. 11/07/14 Doc Z Surg: patient returns for follow-up of the radiation injury and mechanical abrasions wounds of the neck laterally and anteriorly adjacent to the tracheostomy straps which appear to have been chafing on this sensitive skin in the field of radiation. The padded protective dressing has been utilized since her last visit and shows marked improvement in all of the wounds. Also the scalp abrasions which appear to be fingernail scrapings have also improved markedly after the patient educated to avoid fingernails scratching on the scalp area. Question was raised regarding the possibly poor fitting tracheostomy tube but this appears normal and not problematic to my examination. At present I do not see any need for ENT reevaluation of the [id number] tracheostomy site. 10/26/[address] Cornell. The patient complains of recurrent right ear pain that's constant over the past week but does not report fever, sweats, or drainage from the ear. Her wound cultres from the scalp and neck ulcers grew MRSA on 10/04/14. She continues to report pain at these sites and has been unable to maintain dressings as recommended due to discomfort and the fact the scalp dressing falls off. 10/12/14 Seen by Finn Felton PA-C. The patient reports ear pain after completing HBOT. Her wounds still feel tight around her neck but are otherwise stable and more comfortable with her new foam neck dressings. 10/04/[address] Cornell. The patient feels the pain associated with her neck and scalp ulcers is improved and only noticeable intermittently. She arrived today with foam dressings over the neck ulcers which we started utilizing last week to minimize trauma from the tracheostomy tube harness to the skin and ulcers beneath. 09/27/[address] Cornell. The patient feels her neck ulcers and scalp wounds are less painful however the staff report that the dressing plan we implemented to help prevent abrasion to the neck ulcers does not seem to have been continued after the patient left clinic last week. She's now off of antibiotics and does not report increased drainage. 09/20/[address] Cornell. The patient feels her scalp and neck ulcer pain are improving since she's been on IV daptomycin. She also had a doppler study yesterday that rule out a left arm DVT however she still complains of swelling and discomfort in the arm. 09/06/[address] Cornell. The patient complains of continued pain and drainage associated with her scalp and neck ulcers. She's no longer on antibiotics and recently grew Enterococcus and resistant coag negative Staph from the ulcer sites respectively. 08/30/[address] Cornell. The patient reports continued pain at the neck and scalp ulcers and her scalp wound grew Enterococcus on 08/23/14. She's taking clindamycin and completed a course of azithromycin that were started in the ER due to a recurrent URI. 08/16/14 Seen by Finn Felton PA-C. The patient continues to take Keflex for her scalp wound bacterial infection. She reports it is now more painful and draining more than before. Her neck radiation wounds continue to feel tight. 08/14/14 Seen by Finn Felton PA-C. The patient complains of right ear pain and fullness which started today. She reports feeling like she might have a cold coming on. 08/09/[address] Cornell. The patient complains of persistent pain at the site of the neck ulcers and worsening pain at the scalp ulcer. She's taking doxycycline based on the most recent MSSA wound culture sensitivities from the neck ulcer and does not report any adverse side effects. 07/08/[address] Cornell. The patient feels the neck ulcer pain is improving and she's completed her course of doxycycline that was started last week. She still complains of significant pain a the site of the scalp lesion however. Her wound culture from 07/28 grew MSSA sensitive to doxycycline. 07/26/[address] Cornell. The patient complains of increased pain at the neck ulcers as well as the scalp lesion. She does not report increased drainage, fever, cough, or chills and states her previously reported right ear pain has improved. 07/14/[address] Cornell. The patient reports right ear pain with a sore throat but no fevers or cough. 07/11/14 Seen by Finn Felton PA-C. The patient reports less scalp pain and no drainage from her scalp wound. She continues to report a pulling type pain in and around her neck wounds. 07/04/14 Seen by Finn Felton PA-C. The patient has cut her fingernails short and reports that her scalp wound is hurting and itching less. She reports a new wound over an old abdominal scar today. It has been present for 5 days and she is not sure how it occurred. 06/20/14 The patient feels her neck ulcer pain as well as the scalp lesion pain have improved since starting doxycycline. She continues to apply hydrogel and Xeroform to the neck ulcers to keep them moist. Otherwise she's tolerating HBOT without difficulty and has made significant progress in the healing of the neck ulcers throughout this most recent series of dives. 06/13/14 The patient indicates that her neck ulcers 'feel tight' and she still has some discomfort at the scalp lesions. She also complains of significant pruritis in the area of the scalp lesions. She's been taking taking doxycycline for the past week to treat a MRSA positive culture of the scalp ulcer. 06/06/14 The patient reports continued pain from all of her wounds and frustration that her scalp wound has not healed despite her not scratching it. 05/31/14 The patient's here for HBOT today but complains of new left facial pain over the angle of the mandible that started yesterday. She does not complain of ear pain or an dental or intraoral pain but has been treated in the hospital recently for recurrent pneumonia. She's also been reviewed in the past 3 months by her oncologist and reportedly is cancer free. 05/30/14 The patient does not report increased pain or drainage from her neck wounds nor scalp lesion. 05/18/14 The patient complains of significant pain at the left 3rd finger wound as well as her chronic scalp wound. Otherwise she does not report significant pain nor drainage from the neck wounds. 05/12/14 The patient does not report increased pain or drainage from her neck ulcers nor the wound on the scalp. 05/04/14 The patient reports increased pain at the left neck wound and apparently the barrier dressing slipped down and her guaze became adherent resulting in a skin tear upon removal. Otherwise she continues to complain of pain at both neck wounds and the scalp wound. 05/02/14 The patient was seen today in the HBOT treatment room for complaints of a productive cough. She was recently discharged from the hospital with a diagnosis of tracheobronchitis and is finishing a course of Levaquin. Cough is described as yellow and thick and is difficult to clear from her tracheostomy. 04/21/14 The patient complains of persistent ear pain in the right ear despite using antibiotic drops Rx'd by her ENT provider last week. She does not report drainage or fever. 04/18/14 The patient states her cough is improving and she's still on antibiotics from her recent admission for pneumonia. She does not report increased drainage or pain from the neck ulcers but states her right ear pain has returned. She was seen by ENT who felt the lesion in the external canal was traumatic and she was given an Rx for ear drops which she states she's been using. She also reports recurrence of the painful left scalp wound that was recently healed. 04/11/14 The patient complains of a cough productive of green sputum for the past few days that's particularly worse when lying flat. She indicates that she feels generally unwell and weak and is questioning whether she can tolerate HBOT today. 04/05/14 The patient continues to complain of right ear pain however does not report bleeding from the ear today. Of note, she was reviewed for this problem last week and a shallow ulcer in the right external ear canal was the only finding. 03/30/14 The patient reports continued 5/10 pain from her neck wound which is described as a constant, pulling type pain, which is exacerbated by flexing, extending or rotating her neck. 03/29/14 The patient completed her HBOT dive today and now complains of blood draining from the right ear. She does not report pain now nor during the dive today. 03/23/14 The patient reports increased pain from her medial neck wounds as well as from her scalp wound. The pain is described as a throbbing and sometimes pulling pain that is constant in nature and has no exacerbating factors, nor is it associated with any activity. She does not report fever, chills or increased wound drainage. Additionally the patient reports her [facility] doctors are considering a reconstructive surgical revision of her neck once her current wounds heal. She brings with her today a note from her [facility] doctors on a prescription pad, on which is written Please continue hyperbaric oxygen therapy. 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/14) Ear pain (right side; recurrent) Chronic ulcer (scalp; Enterococcus positive culture on 08/23/14; MRSA positive on 10/04/14) Complaints and Symptoms This information was obtained from the patient Patient complains of: General Notes: I have reviewed and concur with the Review of Systems and Past Family Social History documents completed by the clinician, I have reviewed and concur with the Wound Assessment document completed by the clinician Ear/Nose/Mouth/Throat: Ear Pain Integumentary (Hair/Skin/Nails): Open Sore Musculoskeletal: Deformities, Muscle Weakness Prior Wound History: Bleeding, Drainage, Erythema, Pain Patient denies complaints or symptoms related to: Cardiovascular (Central): Irregular heart beat Constitutional Symptoms (General Health): Chills, Fever, Marked Weight Change Ear/Nose/Mouth/Throat: Hearing Loss / Aid Gastrointestinal (GI): Nausea / Vomiting, Stomach/abdominal pain Hematologic/Lymphatic: Bleeding / Clotting Disorders, Bleeding Tendency Neurological: Loss of Protective Sensation Prior Wound History: Malodor Respiratory: Cough, Oxygen Use, Shortness of Breath OBJECTIVE Constitutional BP elevated; Afebrile; Alert and in no distress. Well developed. Alert. Clean appearing.. Height/Length: 66 in (167.64 cm), Weight: 224 lbs (101.82 kgs), BMI: 36.2, Temperature: 98.9 ?F (37.17 ?C), Pulse: 78 bpm, Respiratory Rate: 18 breaths/min, Blood Pressure: 156/92 mmHg, Pulse Oximetry: 97 %. Neck: Chronic skin contractures stable. Respiratory: No respiratory distress. Even respirations and without use of accessory muscles.. Integumentary (Hair, Skin) No periwound erythema, warmth, or significant drainage. No periwound rashes appreciated or noted otherwise.. Refer to appropriate clinician wound documentation for this visit; anterior neck ulcer extends to subcut and is longer and extending along a chord of scar tissue adjacent and right of the tracheostomy site; smaller than on previous review. Wound #36 Right, Proximal Neck is an acute Full Thickness Radiation Wound and has received a status of Not Healed. Subsequent wound encounter measurements are 6.5cm length x 1.3cm width x 0.1cm depth, with an area of 8.45 sq cm and a volume of 0.845 cubic cm. No tunneling has been noted. No sinus tract has been noted. No undermining has been noted. There is a moderate amount of sero-sanguineous drainage noted which has no odor. The patient reports a wound pain of level 7/10. The wound margin is attached. Wound bed has Yes epithelialization, No eschar, Yes slough, Yes pink, firm granulation. The periwound skin texture is normal. The periwound skin moisture is normal. The periwound skin color is normal. The temperature of the periwound skin is WNL. Periwound skin does not exhibit signs or symptoms of infection. Local Pulse is N/A. Neurological: Cranial nerves grossly intact with symmetric function normal by informal observation.. ASSESSMENT Active Problems ICD-10 (Encounter Diagnosis) S11.89XD - Other open wound of other specified part of neck, subsequent encounter (Encounter Diagnosis) L59.8 - Other specified disorders of the skin and subcutaneous tissue related to radiation (Encounter Diagnosis) L98.492 - Non-pressure chronic ulcer of skin of other sites with fat layer exposed (Encounter Diagnosis) J40 - Bronchitis, not specified as acute or chronic PROCEDURES Wound #36 Wound #36 (Radiation Wound) is located on the right, proximal neck. A skin/ subcutaneous tissue level surgical debridement with a total area debrided of 8.45 sq cm was performed by Duy Cornell MD. Subcutaneous was removed along with devitalized tissue: slough. The following instrument(s) were used: curette. Pain control was achieved using 4% Lido. A time out was conducted prior to the start of the procedure. A minimal amount of bleeding was controlled with n/a. The procedure was tolerated well with a pain level of 7 throughout and a pain level of 7 following the procedure. Post Debridement Measurements: 6.5cm length x 1.3cm width x 0.2cm depth; with an area of 8.45 sq cm and a volume of 1.69 cubic cm; Additional Information Muscle fascia or bone removed and sent to pathology?: No PLAN Wound Orders: Wound #36 Right, Proximal Neck Anesthetic Topical Xylocaine to wound bed. - Lidocaine in clinic only. Cleanser Cleanse Wound: - Normal saline and gauze. May use distilled water at home. May Shower. - Avoid direct contact with shower water at wound/dressing site. Dressings Primary dressing: - Alginate Cover and secure with: - Thin hydrocolloid surgical dressing cut to surround trach site. Change Dressing: - Every two days Follow-Up Appointments Return Appointment: - - One week. Other information: If you develop fever, chills, increased pain, drainage, redness or swelling please call our office. If after hours, respond to the ER. Should you experience any significant changes in your wound(s) or have any questions regarding your home care instructions please contact the wound center @ [phone]. If after hours, contact your primary care physician or go to the hospital emergency room. Scribing Attestation I attest, as the nurse, that I scribed these orders for the physician. I've reviewed the clinician's documentation and agree with the evaluation and plan as written. In addition, the patient's ulcer demonstrates evidence of non-viable devitalized tissue which will continue to benefit from sharp debridement to help promote granulation and expedite healing. Also, the patient's neck ulcer appears improved today and she'll complete her course of doxycycline as prescribed. She'll also continue with frequent dressing changes. Electronic Signature(s) Signed By: Date: Duy Cornell MD 10/14/2017 08:37:45 Entered By: Duy Cornell on 10/14/2017 08:12:03
== END ==
PROVIDERS: Visit Provider Internal Medicine
DX: S11.89XA Other open wound of other specified part of neck, initial encounter (principal); L59.8 Other specified disorders of the skin and subcutaneous tissue related to radiation; L98.492 Non-pressure chronic ulcer of skin of other sites with fat layer exposed; J40 Bronchitis, not specified as acute or chronic
CPT/HCPCS: 11042

== ENCOUNTER → 2017-10-22 09:52 | Outpatient (CLI) | payer OTHER, MEDICAID, SELFPAY ==
[2017-09-21 21:10] VITALS: BMI 32.3
--- NOTE | 2017-10-22 | OV.WND_ITS ---
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 Allergies Penicillins (Severity: Moderate, Reaction: rash and hives), Vicodin (Severity: Moderate, Reaction: Rash and hives), ibuprofen (Severity: Moderate, Reaction: Rash and hives), Gelusil Antacid and Anti-Gas (Severity: Moderate, Reaction: increase in stomach discomfort), Septra (Severity: Moderate, Reaction: GI upset), Flagyl (Severity: Moderate, Reaction: Rash), Benadryl (Reaction: Rash), ranitidine (Severity: Moderate, Reaction: SOB, dizzy) HPI This information was obtained from the patient 10/22/17. Seen by Dr. Cornell. The patient reports persistence of a productive cough despite completing a recent course of doxycycline. The sputum tends to contaminate her anterior neck soft tissue ulcer via her laryngectomy stoma. She does not report increased pain or drainage associated with the ulcer however since her last visit. 10/13/17. Seen by Dr. Cornell. The patient does not report increased pain associated with the anterior neck soft tissue radiation ulcer since her previous visit ad she continues on doxycycline for bronchitis. Her dressings have been adjusted to facilitate frequent changing in light of her coughing and presumed contamination of the ulcer via her tracheostomy. 10/09/17. Seen by Dr. Cornell. The patient's now on doxycycline for recurrence of bronchitis. 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 The dressing has been chosen specifically to help prevent abrasion to the irradiated skin caused by the tracheostomy tube strap. 10/02/17. Seen by Dr. Cornell. 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 She does not report significant pain or drainage from the ulcer nor side effects of the antibiotics. The ulcer had deteriorated considerably over the previous 2 weeks and we adjusted dressings to better protect against abrasion caused by her tracheostomy tube and strap. 09/28/17. Seen by Dr. Cornell. The patient continues to report pain associated with the anterior soft tissue radiation neck ulcer and her wound culture from week grew Group A strep, Staph, and diptheroids. She's not currently on antibiotics and we've changed her dressing to better protect against abrasion from the tracheostomy tube and strap. 09/24/17. Seen by Dr. Cornell. The patient does not report increased pain associated with the anterior neck soft tissue radiation ulcer however the nurse feels the ulcer is longer than on her previous visit. 09/17/17. Seen by Dr. Cornell. 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 She has an appointment tomorrow with her PCP to address this problem. Otherwise she does not report increased pain or drainage associated with the ulcer however the nurse reports the ulcer as being larger this week. 09/10/17. Seen by Dr. Cornell. 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 Her culture at the last visit grew Diptherioids and he's applying topical gentamicin with dressing changes which has been adjusted to better protect the site from the abrading ET tube and strap. 09/07/17. Seen by Dr. Cornell. 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 The staff also feels the ulcer's increased in size and she's no long on oral antibiotics that were prescribed recently for a Enterococcus positive wound culture. 08/31/17. Seen by Finn Felton PA-C. The patient reports pain associated with her chronic neck radiation ulcer. 08/24/17. Seen by Dr. Cornell. 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 She continues to apply topical gentamicin to the ulcer to treat the Enterococcus positive wound culture as recommended. 08/14/17. Seen by Dr. Cornell. The patient's been applying topical gentamicin daily to the soft tissue radiation neck ulcer to treat the recent Enterococcus positive wound culture and she's completed her course of levofloxacin. 08/07/17. Seen by Dr. Cornell. 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 She does not report increased pain nor drainage from the site however nor other acute issues today. 07/31/17. Seen by Dr. Cornell. 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 07/24/17. Seen by Dr. Cornell. 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 07/17/17. Seen by Dr. Cornell. 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 Of note, the patient also states she fell from her bed a few days ago resulting in bilateral black eyes. 07/10/2017. Seen by Dr. Cornell. 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 She does not report increased drainage however nor other acute issues. 07/03/17. Seen by Dr. Cornell. 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 06/19/17. Seen by Dr. Cornell. 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 06/09/17. Seen by Dr. Cornell. The patient reports some pain associated with the anterior neck right sided soft tissue radiation ulcer and continues on doxycycline and levofloxacin following a recent admission for a COPD exacerbation. She does not report increased drainage from the ulcer sites and is using Xeroform and Scar-away dressings as recommended. 06/01/17. Seen by Dr. Cornell. The patient was admitted to the hospital for a COPD exacerbation and is now on oral antibiotics following discharge. She reports some ear pain but otherwise no acute issues. Regarding her soft tissue radiation ulcers over the anterior neck she is now using the silicone dressings and Xeroform as recommended and does not report significant pain or drainage.Of note, these are complicated significantly by her tracheostomy tube and attached strap that tends to shear the irradiated skin causing ulcers. 05/25/17. Seen by Dr. Cornell. The patient reports pain associated with the chronic soft tissue radiation neck ulcers. She states her dressings are not on continuously and that she has been wearing her tracheostomy strap for extended periods at home despite our advice to not use it if possible. 05/18/17. Seen by Finn Felton PA-C. The patient reports continued pain from her soft tissue radiation ulcers of the neck. She has finished a once daily antibiotic for a URI but does not recall which antibiotic it was. 05/11/17. Seen by Finn Felton PA-C. The patient reports increased pain and increased drainage from her soft tissue radiation ulcers of the neck. 04/23/17. Similarly Dr. Cornell. The patient does not report increased pain nor drainage associated with the chronic neck soft tissue radiation ulcers since her last visit. 04/16/17. Seen by Finn Felton PA-C. The patient reports that the Radia-gel dressings did not stay in place and the tape used to secure them caused skin tears. 04/09/17. Seen by Finn Felton PA-C. The patient reports no increase in drainage from her radiation ulcers of the neck. 04/02/17. Seen by Finn Felton PA-C. The patient reports her usual amount of pain from her anterior neck ulcers. 03/26/17. Seen by Dr. Cornell. 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 She was discharged recently from [facility] following treatment for an acute URI and is now on levofloxacin. 03/19/17. Seen by Dr. Cornell. The patient does not report significant pain associated with chronic anterior neck soft tssue radiation ulcer since her last visit. 03/12/17. Seen by Dr. Cornell. The patient reports increased pain associated with the anterior neck soft tissue radiation ulcers. Of note, she is reusing her silicon dressings and washing them despite being advised not to do this in the past. She has very limited financial resources that is leading her to do this. 03/04/17. Seen by Dr. Cornell. 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 She continues on doxycycline for a cat bite at the right arm without reported adverse side effects and feels this is improving. There are also no new issues regarding his left neck nonpressure ulcer. 02/24/17. Seen by Dr. Cornell. 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 She was seen in the ER for this and had a CT performed that showed cellulitis but no associated abscess. She was started on levofloxacin at that visit. Also, she was to start doxycycline following her last wound care visit for a cat bite of the right arm however states the antibiotic was not covered by insurance so she has not started this. Otherwise, she does not report fevers or feeling unwell in general. 02/17/17. Seen by Dr. Cornell. The patient reports continued pain associated with the anterior and left lateral neck soft tissue radiation ulcers since her last visit. She is not currently on antibiotics. She also reports a cat bite of the right arm that's been bleeding and painful for the past 2 days since it occurred. 02/10/17. Seen by Finn Felton PA-C. The patient reports a new ulcer on her left neck , in the irradiated area from her previous radiation treatment. 01/16/17. Seen by Dr. Cornell. The patient reports some moderate pain and drainage associated with her chronic neck soft tissue radiation ulcers since her last visit. 01/09/17. Seen by Dr. Cornell. The patient does not report significant pain or increased drainage associated with her chronic neck soft tissue radiation ulcers since her last visit. Her recent wound culture grew ocampo-sensitive Staph aureus and she's applying topical gentamicin as recommended. 01/01/17. Seen by Finn Felton PA-C. The patient reports increased pain and drainage from her chronic neck ulcers which overly an irradiated field. 12/17/16. Seen by Dr. Cornell. The patient does not report significant pain or increased drainage associated with her chronic neck soft tissue radiation ulcers since her last visit. She'll be leaving for a hunting trip and will be gone until December 31. 12/11/16. Seen by Dr. Cornell. The patient does not report significant pain nor drainage associated with chronic neck soft tissue radiation ulcers since her last visit. She completed her course of levofloxacin in the interim and also states that she will not be undergoing reconstructive surgery following discussion with her surgeons. 11/27/16. Seen by Dr. Cornell. The patient reports increased pain and some bloody drainage associated with the anterior neck soft tissue radiation ulcer. She also states that she's had a persistent and productive cough over the past few days. Her most recent wound culture grew MSSA and the prior grew a pansensitive Pseudomonas organism. Staff also report a new ulcer over the left anterior neck. 11/20/16. Seen by Finn Felton PA-C. The patient came in urgently today to be evaluated for increased bleeding and drainage from her neck ulcers which overly radiation damaged tissue. 11/14/16. Seen by Dr. Cornell. The patient continues to apply topical gentamicin to the chronic soft tissue radiation neck ulcers to treat the recent Pseudomonas positive wound culture. She does not report significant pain or increased drainage from these sites. She has an appointment with another surgeon on November 21 to further discuss reconstructive options regarding the narrowing of her stoma and significant soft tissue contractures around the anterior neck. 11/07/16. Seen by Dr. Cornell. The patient reports a new ulcer over the left side of her neck at an area of scarring associated with her chronic soft tissue radiation injury of the neck. She does not report significant pain nor drainage at the site nor from the chronic anterior nonpressure ulcer. Her last culture at that site grew Pseudomonas that is intermediately. 10/31/16. Seen by Dr. Cornell. The patient and her caregiver reports increased drainage associated with the chronic and progressive right anterior neck soft tissue radiation ulcer over the past week. They're having issues in terms of dressing changes and managing increased drainage and the patient also has a persistent and productive cough with mucus being expelled from the tracheostomy site. Of note, the caregiver states that she has been attempting to liaise with Dr. Lopez's office, ENT surgery at , regarding a follow up appointment to discuss reconstructive surgery in hopes of addressing the chronic skin contractures that are contributing heavily to the refractory nature of this neck ulcer. 10/23/16. Seen by Finn Felton PA-C. The patient reports no increase in pain or drainage from her neck ulcer. Her two ulcers have bridged into one ulcer. She has no new news regarding a surgical revision. 10/10/16. Seen by Dr. Cornell.The patient does not report increased pain or drainage associated with the chronic soft tissue neck radiation ulcers since her last visit. Her culture from the last visit grew diphtheroids and she's been applying topical gentamicin as recommended. According to her caregiver they have still not heard back regarding an appointment with her surgeon who is planning a revision for the stenosed tracheostomy site noting the tube is contributing significantly to the ulcer formation. She also does not report significant pain or drainage associated with the superficial abdominal abscess noted at her last visit. 10/03/16. Seen by Dr. Cornell. The patient continues to report some pain associated with the chronic neck soft tissue radiation ulcers. The patient caregiver feels the proximal ulcer continues to increase in size. They have not yet scheduled an appointment for revision surgery for the tracheostomy as was discussed last week. 09/26/16. Seen by Dr. Cornell. The patient continues to report some pain as well as persistent drainage associated with the chronic right neck soft-tissue radiation ulcers. 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 He is planning for a revision surgery to try to address this issue in the near future. 09/19/16. Seen by Dr. Cornell. The patient and her brother continue to report some pain associated with the chronic neck nonpressure ulcers but no increased drainage and they've been changing the silicon dressings as recommended to protect the soft-tissue radiation injured skin and protect against abrasion caused by the tracheosteomy tube. Of note, the patient feels as though the stoma may gradually be tightening as she continues to have some difficulty replacing the tube after taking it out. She also reports some persistent productive coughing and nasal drainage in the evenings and through the night and feels it may be related to allergies. 09/01/16. Seen by Dr. Cornell. The patient's brother who's present today reports that the patient's silicon dressings are being changed less frequently than recommended and in washing them the adherence is deteriorating which may be leading to loss of function in terms of protecting the underlying irradiated skin and neck ulcers. She does not report increased drainage or pain associated with the neck ulcers today. 08/28/16. Seen by Dr. Cornell. The patient removed her tracheostomy tube in clinic today and is having difficulty replacing it. She's a bit anxious at the time of exam but is breathing without distress or audible stridor. Regarding her chronic neck soft tissue radiation ulcers, there's no new issues to report and she's been dressing them as recommended. 08/21/16. Seen by Dr. Cornell. The patient reports continued pain and drainage associated with the chronic soft tissue radiation ulcer along the margin of her tracheostomy stoma. She and her caregiver are dressing it as recommended and she's completed her course of antibiotics those treating the recently cultured MRSA. 08/15/16. Seen by Dr. Cornell. The patient reports increased pain associated with the chronic soft tissue radiation neck ulcers since her last visit and her caregiver reports some thick overlying drainage around the mid-line ulcer adjacent to the tracheostomy stoma. She does not report fevers or feeling unwell however and has been applying topical antibiotic to the ulcers as recommended. 08/08/16. Seen by Dr. Cornell. The patient reports continued pain associated with the chronic anterior neck non-pressure ulcers and they've been applying topical gentamicin to treat the recurrent MRSA positive wound cutlures. She's also wearing her silicon dressing as recommended to help protect the soft tissue radiation injury of the skin from abrasion caused by her tracheostomy tube strap. 08/01/16. Seen by Dr. Cornell. The patient's caregiver reports improvement in terms of pain and drainage associated with the chronic neck ulcers. They've been applying topical gentamicin as recommended for the chronic wound infections. 07/23/16. Seen by Dr. Cornell. The patient's caregiver reports improvement in terms of pain and drainage associated with the chronic neck ulcers overlying the soft tissue radiation injury that follow treatment for her laryngeal cancer years ago. They've been applying topical gentamicin as recommended for the chronic wound infections. 07/09/16. Seen by Finn Felton PA-C. The patient reports she has run out of the silicone strips that were fabricated by [employer] to reduce abrasion from her laryngostomy collar. She is using scar fade strips which are not staying in place. Her neck ulcers continue to be present under the collar. 06/25/16. Seen by Dr. Cornell. The patient's caregiver reports improvement in terms of pain and drainage associated with the chronic neck ulcers. They've been applying topical gentamicin as recommended for the chronic wound infections. 06/11/16. Seen by Dr. Cornell. The patient reports improvement in terms of pain and drainage associated with the chronic neck ulcers. She completed her course of ciprofloxacin which was treating the recurrent ulcer infections and she continues to apply topical gentamicin to the ulcer beds. 06/04/16. Seen by Dr. Cornell. The patient continues to report some pain and minimal drainage associated with the chronic neck ulcers are complicated by underlying soft tissue radiation injury. She was just discharged from the hospital for tracheobronchitis and continues on ciprofloxacin with cultures that have grown Pseudomonas, Staph, and Haemophilus. She does not report adverse side effects from antibiotics nor fevers or feeling unwell today although she continues to have a mild cough. 05/26/16. Seen by Finn Felton PA-C. The patient reports no increase in drainage or pain from her neck ulcers. 05/16/16. Seen by Dr. Cornell. The patient does not report significant pain nor drainage associated with the recurrent neck soft tissue radiation ulcers since her last visit. She's been applying topical gentamicin as recommended and wearing the silicon dressings to protect from the trach tube strap rubbing on the irradiated skin.Also, her wound culture from the last visit grew MSSA. 05/09/16. Seen by Dr. Cornell. The patient feels her recurrent soft tissue radiation ulcers over the mid and left aspects of her neck are painful and draining for the past week. She reports wearing her silicon dressing but does not have it in place all of the time and has been leaving her tracheostomy tube strap off for extended periods during the day to help prevent abrasion. She's been applying topical gentamicin to the ulcers but is not currently on systemic antibiotics. 04/29/16. Seen by Finn Felton PA-C. The patient reports continued compliance with her silicone skin protector that she wears under her collar. She reports improvement in her neck ulcers, however she ran out of supplies a few days ago and now reports worsening of the ulcers. 04/11/16. Seen by Dr. Cornell. The patient reports decreased pain and drainage associated with the chronic neck non-pressure ulcers over the patient week and she's applying topical gentamicin to treat the chronic MRSA wound infection as recommended. She's also using silicon dressings to help better protect the soft tissue radiation injury to the neck which is heavily implicated in the recurrent and refractory nature of the ulcers. 04/04/16. Seen by Dr. Cornell. The patient reports an increase in the size and pain associated with the left neck non-pressure ulcer since her last visit. She's applying gentamicin ointment to all of the ulcers a recommended and using the silicon dressings to help prevent abrasion caused by the trach tube strap. 03/28/16. Seen by Dr. Cornell. The patient reports decreased pain and drainage associated with the chronic neck non-pressure ulcers over the patient week and she's restarted use of the silicon dressings again to protect the irradiated skin that's been breaking down under the trach strap and contributing to the recurrent and refractory nature of the ulcers. 03/21/16. Seen by Dr. Cornell. The patient reports decreased pain and drainage associated with the chronic neck non-pressure ulcers over the patient week and she continues applying topical gentamicin to treat the chronic MRSA wound infection. 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 03/13/15. Seen by Dr. Cornell. The patient reports decreased pain and drainage associated with the chronic neck non-pressure ulcers over the patient week since starting on doxycycline for a recurrent MRSA wound infection. She's now using silicon dressings to protect the irradiated skin over the neck that resulted from radiation therapy treating laryngeal cancer. She does not report adverse effects of the doxycycline and is also applying topical gentamicin daily to the ulcer sites. 03/06/16. Seen by Dr. Cornell. The patient reports persistent pain associated with the recurrent neck non-pressure ulcers and staff report they're larger and are draining based on the dressings. 02/28/16. Seen by Dr. Cornell. The patient returns with new ulcers overlying her soft tissue radiation neck injury that resulted following treatment for laryngeal cancer. She states she ran out of the silicon dressings she uses to protect the area from her trach tube strap and after this the ulcers appeared and are quite painful. Their draining however she does not report fevers. 11/28/15. Seen by Dr. Cornell. 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 11/21/15. Seen by Dr. Cornell. The patient reports some minimal pain associated with the chronic neck soft tissue radiation ulcer since her last visit. She also complains of right ear pain and has asked me to have look in the ear as it feels like there may be a foreign body present. She also reports a mild cough, sore throat, and feeling a bit unwell in general. 11/14/15. Seen by Dr. Cornell. The patient reports moderate pain but no significant drainage associated with the left neck soft tissue radiation ulcer since her last visit. 10/31/15. Seen by Dr. Cornell. The patient reports some pain associated with the left neck soft tissue radiation ulcer but no increased drainage from either ulcer nor pain associated with the middle soft tissue radiation ulcer. Her caregiver notes that they're running out of the silicon dressings and they've become nearly prohibitively expensive. 10/12/15 Seen by Finn Felton PA-C. The patient returns to our clinic after reconstructive scar- revision surgery on her radiation damaged neck. She has wounds that have been left to close by secondary intention and are slow to heal. In addition, her silicone strips that help hold her laringostomy collar in place continue to work well for her. 09/07/[address] Cornell. The patient presents with a new rash over the right neck overlying the soft tissue radiation injury. Of note, her very chronic wounds at the same site were recently healed. She dose not report pain, drainage, or skin breakdown associated with the rash. 08/24/[address] Cornell. The patient does not report pain or drainage associated with the chronic neck soft tissue radiation ulcers over the past few days and she's using the silicon dressings to cover the ulcers. 08/15/[address] Cornell. The patient nor her caregiver report significant pain or drainage from either the left or right neck soft tissue radiation ulcers over the past week and she's received her silicon dressings that are being used to prevent abrasion to the skin caused by her laryngostomy tube strap. 08/09/[address] Cornell. 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 Otherwise the right neck ulcers remain relatively stable and have minimal drainage over the past week. 08/02/[address] Cornell. The patient reports minimal discomfort associated with the chronic neck soft tissue radiation ulcers and her caregiver feels they've improved considerably over the past week while applying gentamicin ointment and using the silicon dressing to prevent abrasion from the trach strap. 07/26/[address] Cornell. The patient reports only moderate discomfort and minimal drainage associate with her remaining soft tissue radiation ulcers of the neck. 07/19/[address] Cornell. The patient's caregiver reports increased drainage on the dressings covering the neck soft tissue radiation ulcers and the patient reports some increased pain at the ulcer sites. They're also running out of the silicon dressings they' ve been using to protect the ulcers from abrasion caused by the overlying trach strap. She does not report any problems regarding the chronic left upper arm wound. 07/12/[address] Cornell. The patient does not report increased pain or drainage associated with her chronic neck soft tissue radiation ulcers and she's been using her silicon wound dressings daily. She feels her ulcers are much less painful since changing to the new dressings. 07/05/[address] Cornell. The patient reports a significant improvement in pain regarding her chronic neck soft tissue radiation ulcers since starting to use adherent silicon dressings to prevent abrasion caused by her trach strap. She does not report significant drainage from the ulcers. 06/22/[address] Cornell. The patient continues to report persistent pain associated with the chronic neck soft tissue radiation ulcers. 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 06/12/15 Seen by Finn Felton PA-C. The patient reports continued pain from her radiation neck ulcers. 06/05/15 Seen by Finn Felton PA-C. The patient reports continued pain and stable drainage from her neck radiation ulcers. She continues to use her favored dressings instead of ones that we have recommended for her. 05/21/15 Seen by Finn Felton PA-C. The patient reports continued pain and no change in drainage from her neck radiation ulcers and her arm and chest wounds. 05/08/15 Seen by Finn Felton PA-C. The patient reports continued pain and stable drainage from her neck radiation ulcers. Flores from [employer] attended part of the appointment to try fitting her for the laryngectomy collar protective prosthetic. 04/25/[address] Cornell. The patient continues to report significant pain associated with the chronic soft tissue radiation neck ulcers and the staff report at least moderate drainage on her dressings today. She does not report fevers or feeling unwell otherwise. 04/11/[address] Cornell. The patient been on levofloxacin and doxycycline for Pseudomonas and MRSA positive wounds cultures taken from her soft tissue radiation ulcers over the neck and around the laryngostomy wound. She still reports pain associated with the ulcers but indicates it's not as bad as last week. 04/05/[address] Cornell. The patient reports persistent pain associated with her neck soft tissue radiation ulcers. She's currently on levofloxacin and doxycycline for the Pseudomonas and MRSA positive culture taken at the last visit and she does not report adverse side effects. 03/28/2015 Seen by Finn Felton PA-C. The patient continues to complain of neck ulcer pain. In addition she again asks today why are they hurting. She has not been compliant with any of our attempts at specialized laryngectomy collar padding or dressings. 03/21/2015 Seen by Finn Felton PA-C. The patient returns with stable 6-7/10 constant pain from the radiation ulcers on her neck. She continues on Doxycycline and has finished her course of prednisone for a URI as prescribed by her PCP. He has recently not been able to keep the Radiagel sheets attached to her neck or tracheostomy collar and has gone back to using Xeroform gauze. 02/19/15 Seen by Finn Felton PA-C. The patient returns for evaluation of her radiation ulcers of the neck. She reports continued pain and her most recent dressings that we have trialed did not stay in place. 02/12/15 Seen by Finn Felton PA-C. The patient reports continued neck pain from her radiation ulcers as well as tightness in her surrounding neck tissues. She reports the pain is exacerbated by rubbing of her tracheostomy tube macias and by any palpation or instrumentation. Drainage has been minimal. 02/05/15 Seen by Finn Felton PA-C. The patient presents today with a new wound on her left lateral neck, on her irradiated tissue. This wound is 01/24/[address] Cornell. The patient reports a cough and feeling unwell the past few days. She continues on doxycycline and levofloxcacin for the recent MRSA and Pseudomonas positive wound culture. Of note, she arrives today with gauze dressings over her next ulcers as opposed to foam which has been recommended. 01/17/[address] Cornell. The patient's been started on doxycycline and levofloxacin for her wound culture from the last visit that grew MRSA again plus Pseudomonas which is new. She reports having a cough and low grade fever also and the staff report the left neck ulcer dressings as being quite wet. 01/12/[address] Cornell. The patient indicates the neck ulcer pain is a 6-7/ 10 today and states she's been adhering to our dressing change recommendations. She's not currently on antibiotics and does not report fever although she feels a bit under the weather. 01/05/[address] Cornell. The patient complains of 4/10 pain at the site of her remaining chronic neck ulcers. 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 12/18/14 Seen by Finn Felton PA-C. The patient continues to have difficulty securing her dressings and keeping them in place under her tracheostomy collar. She is planning on going deer hunting and will be away from our clinic for over 1 week. 12/12/[address] Cornell. The patient complains of significant right ear pain. Her left neck ulcer culture from the last visit grew MRSA and she's not currently on antibiotics at this time. Of note, the foam that we placed around the tracheostomy tube to prevent abrasion was not in place on the patient's arrival today. 12/08/[address] Cornell. The patient complains of some persistent pain at the site of the left neck ulcer but does not report fever or increased drainage. Of note, she's not changed her dressing since her last visit 3 days ago. 11/28/14 Seen by Finn Felton PA-C. The patient again reports right ear pain without drainage or disturbance in hearing. The dressing on her head wound has stayed in place and her neck dressings lasted less than 24hrs in place. Scalp wound pain has decreased. 11/28/14 Seen by Finn Felton PA-C. The patient has seen her PCP for her right ear issues and he has prescribed her Cefuroxime, which she is currently taking. She has kept her scalp dressing in place and reports continued neck pain and a new neck wound on the left. 11/14/14 Seen by Finn Felton PA-C. The patient's right sided neck wound and scalp wound are much improved today after she has been keeping her head wound covered and has loosened her trach collar. Both wounds are reportedly less painful than before. 11/07/14 Doc Z Surg: patient returns for follow-up of the radiation injury and mechanical abrasions wounds of the neck laterally and anteriorly adjacent to the tracheostomy straps which appear to have been chafing on this sensitive skin in the field of radiation. The padded protective dressing has been utilized since her last visit and shows marked improvement in all of the wounds. Also the scalp abrasions which appear to be fingernail scrapings have also improved markedly after the patient educated to avoid fingernails scratching on the scalp area. Question was raised regarding the possibly poor fitting tracheostomy tube but this appears normal and not problematic to my examination. At present I do not see any need for ENT reevaluation of the [id number] tracheostomy site. 10/26/[address] Cornell. The patient complains of recurrent right ear pain that's constant over the past week but does not report fever, sweats, or drainage from the ear. Her wound cultres from the scalp and neck ulcers grew MRSA on 10/04/14. She continues to report pain at these sites and has been unable to maintain dressings as recommended due to discomfort and the fact the scalp dressing falls off. 10/12/14 Seen by Finn Felton PA-C. The patient reports ear pain after completing HBOT. Her wounds still feel tight around her neck but are otherwise stable and more comfortable with her new foam neck dressings. 10/04/[address] Cornell. The patient feels the pain associated with her neck and scalp ulcers is improved and only noticeable intermittently. She arrived today with foam dressings over the neck ulcers which we started utilizing last week to minimize trauma from the tracheostomy tube harness to the skin and ulcers beneath. 09/27/[address] Cornell. The patient feels her neck ulcers and scalp wounds are less painful however the staff report that the dressing plan we implemented to help prevent abrasion to the neck ulcers does not seem to have been continued after the patient left clinic last week. She's now off of antibiotics and does not report increased drainage. 09/20/[address] Cornell. The patient feels her scalp and neck ulcer pain are improving since she's been on IV daptomycin. She also had a doppler study yesterday that rule out a left arm DVT however she still complains of swelling and discomfort in the arm. 09/06/[address] Cornell. The patient complains of continued pain and drainage associated with her scalp and neck ulcers. She's no longer on antibiotics and recently grew Enterococcus and resistant coag negative Staph from the ulcer sites respectively. 08/30/[address] Cornell. The patient reports continued pain at the neck and scalp ulcers and her scalp wound grew Enterococcus on 08/23/14. She's taking clindamycin and completed a course of azithromycin that were started in the ER due to a recurrent URI. 08/16/14 Seen by Finn Felton PA-C. The patient continues to take Keflex for her scalp wound bacterial infection. She reports it is now more painful and draining more than before. Her neck radiation wounds continue to feel tight. 08/14/14 Seen by Finn Felton PA-C. The patient complains of right ear pain and fullness which started today. She reports feeling like she might have a cold coming on. 08/09/[address] Cornell. The patient complains of persistent pain at the site of the neck ulcers and worsening pain at the scalp ulcer. She's taking doxycycline based on the most recent MSSA wound culture sensitivities from the neck ulcer and does not report any adverse side effects. 07/08/[address] Cornell. The patient feels the neck ulcer pain is improving and she's completed her course of doxycycline that was started last week. She still complains of significant pain a the site of the scalp lesion however. Her wound culture from 07/28 grew MSSA sensitive to doxycycline. 07/26/[address] Cornell. The patient complains of increased pain at the neck ulcers as well as the scalp lesion. She does not report increased drainage, fever, cough, or chills and states her previously reported right ear pain has improved. 07/14/[address] Cornell. The patient reports right ear pain with a sore throat but no fevers or cough. 07/11/14 Seen by Finn Felton PA-C. The patient reports less scalp pain and no drainage from her scalp wound. She continues to report a pulling type pain in and around her neck wounds. 07/04/14 Seen by Finn Felton PA-C. The patient has cut her fingernails short and reports that her scalp wound is hurting and itching less. She reports a new wound over an old abdominal scar today. It has been present for 5 days and she is not sure how it occurred. 06/20/14 The patient feels her neck ulcer pain as well as the scalp lesion pain have improved since starting doxycycline. She continues to apply hydrogel and Xeroform to the neck ulcers to keep them moist. Otherwise she's tolerating HBOT without difficulty and has made significant progress in the healing of the neck ulcers throughout this most recent series of dives. 06/13/14 The patient indicates that her neck ulcers 'feel tight' and she still has some discomfort at the scalp lesions. She also complains of significant pruritis in the area of the scalp lesions. She's been taking taking doxycycline for the past week to treat a MRSA positive culture of the scalp ulcer. 06/06/14 The patient reports continued pain from all of her wounds and frustration that her scalp wound has not healed despite her not scratching it. 05/31/14 The patient's here for HBOT today but complains of new left facial pain over the angle of the mandible that started yesterday. She does not complain of ear pain or an dental or intraoral pain but has been treated in the hospital recently for recurrent pneumonia. She's also been reviewed in the past 3 months by her oncologist and reportedly is cancer free. 05/30/14 The patient does not report increased pain or drainage from her neck wounds nor scalp lesion. 05/18/14 The patient complains of significant pain at the left 3rd finger wound as well as her chronic scalp wound. Otherwise she does not report significant pain nor drainage from the neck wounds. 05/12/14 The patient does not report increased pain or drainage from her neck ulcers nor the wound on the scalp. 05/04/14 The patient reports increased pain at the left neck wound and apparently the barrier dressing slipped down and her guaze became adherent resulting in a skin tear upon removal. Otherwise she continues to complain of pain at both neck wounds and the scalp wound. 05/02/14 The patient was seen today in the HBOT treatment room for complaints of a productive cough. She was recently discharged from the hospital with a diagnosis of tracheobronchitis and is finishing a course of Levaquin. Cough is described as yellow and thick and is difficult to clear from her tracheostomy. 04/21/14 The patient complains of persistent ear pain in the right ear despite using antibiotic drops Rx'd by her ENT provider last week. She does not report drainage or fever. 04/18/14 The patient states her cough is improving and she's still on antibiotics from her recent admission for pneumonia. She does not report increased drainage or pain from the neck ulcers but states her right ear pain has returned. She was seen by ENT who felt the lesion in the external canal was traumatic and she was given an Rx for ear drops which she states she's been using. She also reports recurrence of the painful left scalp wound that was recently healed. 04/11/14 The patient complains of a cough productive of green sputum for the past few days that's particularly worse when lying flat. She indicates that she feels generally unwell and weak and is questioning whether she can tolerate HBOT today. 04/05/14 The patient continues to complain of right ear pain however does not report bleeding from the ear today. Of note, she was reviewed for this problem last week and a shallow ulcer in the right external ear canal was the only finding. 03/30/14 The patient reports continued 5/10 pain from her neck wound which is described as a constant, pulling type pain, which is exacerbated by flexing, extending or rotating her neck. 03/29/14 The patient completed her HBOT dive today and now complains of blood draining from the right ear. She does not report pain now nor during the dive today. 03/23/14 The patient reports increased pain from her medial neck wounds as well as from her scalp wound. The pain is described as a throbbing and sometimes pulling pain that is constant in nature and has no exacerbating factors, nor is it associated with any activity. She does not report fever, chills or increased wound drainage. Additionally the patient reports her [facility] cancer doctors are considering a reconstructive surgical revision of her neck once her current wounds heal. She brings with her today a note from her [facility] doctors on a prescription pad, on which is written Please continue hyperbaric oxygen therapy. 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/14) Ear pain (right side; recurrent) Chronic ulcer (scalp; Enterococcus positive culture on 08/23/14; MRSA positive on 10/04/14) Complaints and Symptoms This information was obtained from the patient Patient complains of: General Notes: I have reviewed and concur with the Review of Systems and Past Family Social History documents completed by the clinician, I have reviewed and concur with the Wound Assessment document completed by the clinician Ear/Nose/Mouth/Throat: Ear Pain Integumentary (Hair/Skin/Nails): Open Sore Musculoskeletal: Deformities, Muscle Weakness Prior Wound History: Bleeding, Drainage, Erythema, Pain Patient denies complaints or symptoms related to: Cardiovascular (Central): Irregular heart beat Constitutional Symptoms (General Health): Chills, Fever, Marked Weight Change Ear/Nose/Mouth/Throat: Hearing Loss / Aid Gastrointestinal (GI): Nausea / Vomiting, Stomach/abdominal pain Hematologic/Lymphatic: Bleeding / Clotting Disorders, Bleeding Tendency Neurological: Loss of Protective Sensation Prior Wound History: Malodor Respiratory: Cough, Oxygen Use, Shortness of Breath OBJECTIVE Constitutional BP elevated; Afebrile; Alert and in no distress. Well developed. Alert. Clean appearing.. Height/Length: 66 in (167.64 cm), Weight: 229.5 lbs (104.32 kgs), BMI: 37, Temperature: 98.3 ?F (36.83 ?C), Pulse: 75 bpm, Respiratory Rate: 18 breaths/min, Blood Pressure: 104/70 mmHg, Pulse Oximetry: 96 %. Ears, Nose, Mouth, and Throat: No clinically significant hearing loss on informal examination. Neck: Chronic skin contractures stable. Integumentary (Hair, Skin) Refer to appropriate clinician wound documentation for this visit; anterior neck ulcer extends to subcut and is longer and extending along a chord of scar tissue adjacent and right of the tracheostomy site. Wound #36 Right, Proximal Neck is an acute Full Thickness Radiation Wound and has received a status of Not Healed. Subsequent wound encounter measurements are 6.2cm length x 1cm width x 0.1cm depth, with an area of 6.2 sq cm and a volume of 0.62 cubic cm. No tunneling has been noted. No sinus tract has been noted. No undermining has been noted. There is a moderate amount of sero-sanguineous drainage noted which has no odor. The patient reports a wound pain of level 7/10. The wound margin is attached. Wound bed has No epithelialization, No eschar, Yes slough, No granulation. The periwound skin texture is normal. The periwound skin moisture is normal. The periwound skin color is normal. The temperature of the periwound skin is WNL. Periwound skin does not exhibit signs or symptoms of infection. Local Pulse is N/A. Neurological: Cranial nerves grossly intact with symmetric function normal by informal observation.. ASSESSMENT Active Problems ICD-10 (Encounter Diagnosis) S11.89XD - Other open wound of other specified part of neck, subsequent encounter (Encounter Diagnosis) L59.8 - Other specified disorders of the skin and subcutaneous tissue related to radiation (Encounter Diagnosis) L98.492 - Non-pressure chronic ulcer of skin of other sites with fat layer exposed (Encounter Diagnosis) R05 - Cough PROCEDURES Wound #36 Wound #36 (Radiation Wound) is located on the right, proximal neck. A Surgical debridement Total area debrided was 6.2 sq cm. was performed by Duy Cornell MD. Subcutaneous was removed along with devitalized tissue: exudate and slough. The following instrument(s) were used: curette. Pain control was achieved using EMLA lidocaine/prilocaine 2.5%/2.5%. A time out was conducted prior to the start of the procedure. A minimal amount of bleeding was controlled with pressure. The procedure was tolerated well with a pain level of 0 throughout and a pain level of 0 following the procedure. Post Debridement Measurements: 6.2cm length x 1cm width x 0.1cm depth; with an area of 6.2 sq cm and a volume of 0.62 cubic cm; PLAN Wound Orders: Wound #36 Right, Proximal Neck Anesthetic Topical Xylocaine to wound bed. - Lidocaine in clinic only. Cleanser Cleanse Wound: - Normal saline and gauze. May use distilled water at home. May Shower. - Avoid direct contact with shower water at wound/dressing site. Dressings Primary dressing: - Alginate Cover and secure with: - Thin hydrocolloid surgical dressing cut to surround trach site. Change Dressing: - Every two days Follow-Up Appointments Return Appointment: - - One week. I have made an appointment with your PCP for today at 11:45 for UTI and cough. Other information: If you develop fever, chills, increased pain, drainage, redness or swelling please call our office. If after hours, respond to the ER. Should you experience any significant changes in your wound(s) or have any questions regarding your home care instructions please contact the wound center @ [phone]. If after hours, contact your primary care physician or go to the hospital emergency room. Scribing Attestation I attest, as the nurse, that I scribed these orders for the physician. I've reviewed the clinician's documentation and agree with the evaluation and plan as written. In addition, the patient's ulcer demonstrates evidence of non-viable devitalized tissue which will continue to benefit from sharp debridement to help promote granulation and expedite healing. Also, the patient's been advised to contact her PCP to discuss her ongoing cough and if there's a delay in being seen she should attempt to be seen a urgent care or lastly the ER. Electronic Signature(s) Signed By: Date: Duy Corenll MD 10/23/2017 09:29:15 Entered By: Duy Cornell on 10/23/2017 09:27:37
== END ==
PROVIDERS: Visit Provider Internal Medicine
DX: S11.89XA Other open wound of other specified part of neck, initial encounter (principal); L59.8 Other specified disorders of the skin and subcutaneous tissue related to radiation; L98.492 Non-pressure chronic ulcer of skin of other sites with fat layer exposed
CPT/HCPCS: 11042

== ENCOUNTER → 2017-10-29 08:42 | Outpatient (CLI) | payer OTHER, MEDICAID, SELFPAY ==
[2017-09-21 21:10] VITALS: BMI 32.3
== END ==
PROVIDERS: Visit Provider Internal Medicine
DX: L59.8 Other specified disorders of the skin and subcutaneous tissue related to radiation (principal); L98.492 Non-pressure chronic ulcer of skin of other sites with fat layer exposed; S11.89XA Other open wound of other specified part of neck, initial encounter
CPT/HCPCS: 11042

== ENCOUNTER 2017-11-04 10:12 | Emergency (ER) | payer OTHER, MEDICAID, SELFPAY ==
[2017-09-21 21:10] VITALS: BMI 32.3
--- NOTE | 2017-11-04 10:34 | ED.SOB ---
HPI - SOB/Dyspnea General Chief Complaint: Shortness of Breath/Dyspnea Stated Complaint: WHEEZING, THROAT FEELS TIGHT Time Seen by Provider: 11/04/17 10:34 Source: patient Mode of arrival: ambulatory Limitations: no limitations History of Present Illness Patient is a 57-year-old female who presents with difficulty breathing. She has a chronic trach patient with frequent episodes of difficulty breathing. She says this has been going on for 4 days it is overall getting worse. She has had white sputum production no fever. She sometimes feels like throwing up. No chest pain. She was admitted 09/21/2017 after she was stung by a wasp and had difficulty breathing. She feels like her neck is tight and swelling in the back. Related Data Home Medications Medication Instructions Recorded Confirmed albuterol sulfate 1 dose INHALATION QIDP PRN #180 01/25/16 09/21/17 docusate sodium 100 mg PO BID #0 01/25/16 09/21/17 ferrous gluconate 324 mg PO QDAY #0 08/28/16 09/21/17 omeprazole 20 mg PO QDAY #0 08/28/16 09/21/17 acetaminophen 650 mg PO Q6HP PRN #0 10/29/16 09/21/17 amitriptyline 25 mg PO HS #0 01/22/17 09/21/17 ascorbic acid (vitamin C) 500 mg PO QDAY #0 06/10/17 09/21/17 fexofenadine 180 mg PO QDAY #0 06/10/17 09/21/17 nystatin 1 dose PO DIRECTED #0 06/10/17 09/21/17 sodium chloride 0.9 % 1 vial QID PRN #0 06/10/17 09/21/17 citalopram 40 mg PO DAILY 09/21/17 09/21/17 estradiol 2 mg PO DAILY 09/21/17 09/21/17 lisinopril 10 mg PO DAILY 09/21/17 09/21/17 tramadol 50 mg PO Q6HP PRN 09/21/17 09/21/17 Allergies Allergy/AdvReac Type Severity Reaction Status Date / Time hydrocodone Allergy Intermediate RASH/HIVES Verified 09/21/17 16:56 Penicillins Allergy Intermediate RASH/HIVES Unverified 06/17/17 12:06 metronidazole Allergy Mild RASH Unverified 06/17/17 12:06 acetaminophen [ACETAMINOPHEN] Allergy Unknown GI UPSET Unverified 06/17/17 12:06 diphenhydramine Allergy Unknown Unverified 06/17/17 12:06 [DIPHENHYDRAMINE] ibuprofen Allergy Unknown Unverified 06/17/17 12:06 oxycodone [OXYCODONE] Allergy Unknown Unverified 06/17/17 12:06 venom-wasp Allergy Verified 09/21/17 16:57 ranitidine AdvReac Intermediate SOB/DIZZY Unverified 06/17/17 12:06 sulfamethoxazole AdvReac Mild GI UPSET Unverified 06/17/17 12:06 [From Bactrim] trimethoprim [From Bactrim] AdvReac Mild GI UPSET Unverified 06/17/17 12:06 fentanyl [FENTANYL] AdvReac Unknown vomiting Unverified 06/17/17 12:06 ANTACIDS AdvReac Unknown Uncoded 06/17/17 12:06 Review of Systems Review of Systems All systems reviewed & are unremarkable except as noted in HPI and below Constitutional Denies chills, Reports difficulty sleeping, Denies fever(s), Denies lethargy and Denies weakness ENT Ears, Nose, Mouth, and Throat: Reports as per HPI and Reports neck pain Cardiovascular Denies chest pain, Denies irregular heart rhythm, Denies lightheadedness, Denies palpitations and Denies orthopnea Respiratory Reports as per HPI Gastrointestinal Gastrointestinal: Denies abdominal pain, Denies change in bowel habits, Denies diarrhea, Denies nausea and Denies vomiting Musculoskeletal Denies back pain, Denies muscle weakness, Reports neck pain, Denies numbness and Denies tingling Neurologic Denies numbness, Denies tingling and Denies weakness Endocrine Denies palpitations PFSH Medical History Tracheobronchitis (Acute) Chronic pain (Acute) Community acquired pneumonia (Acute) Tracheostomy complication (Acute) Otitis media, purulent, acute, with spontaneous rupture of TM (Acute) Laryngeal cancer (Acute) MRSA (methicillin resistant Staphylococcus aureus) (Acute) Social History household members: significant other Smoking Status: Former smoker alcohol intake: former Exam Initial Vital Signs Initial Vital Signs: Vital Signs Pulse Rate 97 H 11/04/17 10:35 Respiratory Rate 22 11/04/17 10:35 Pulse Oximetry 99 11/04/17 10:35 GENERAL: Anxious female with trach with difficulty breathing HEENT: Head atraumatic,EOMI, pupils reactive, NECK: Trach present, chronic ongoing neck wounds which appear better than I have seen, in the past, no gross pus or erythema. No obvious swelling or masses CARDIOVASCULAR: Regular rate and rhythm without murmurs, rubs or gallops. RESPIRATORY: Decreased breath sounds bilaterally with some wheezing ABDOMEN: Soft, nontender. Normoactive bowel sounds all 4 quadrants. No guarding or rebound. EXTREMITIES: Normal range of motion, no clubbing or edema. Neurovascularly intact NEUROLOGICAL: Alert and oriented x4. Cranial nerves 2-12 intact SKIN: Warm, dry, no laceration, no petechiae, no rashes or lesions. Course Orders Ordered: Discontinued Medications Albuterol/Ipratropium (Duoneb) 3 ml INH NOW ONE Stop: 11/04/17 10:36 Last Admin: 11/04/17 10:35 Dose: 3 ml Albuterol/Ipratropium (Duoneb) 3 ml INH NOW ONE Stop: 11/04/17 12:06 Last Admin: 11/04/17 10:43 Dose: 3 ml Methylprednisolone (Solu-Medrol 125 Mg Vial) 125 mg IV NOW ONE Stop: 11/04/17 10:36 Last Admin: 11/04/17 11:18 Dose: 125 mg Vital Signs - 8 hr 11/04/17 10:35 11/04/17 10:43 11/04/17 10:45 Temperature 99.0 F Pulse Rate 97 H 102 H 105 H Respiratory Rate 22 24 18 Blood Pressure 226/157 H Blood Pressure [Left Arm] Pulse Oximetry 99 98 99 11/04/17 12:06 Temperature Pulse Rate 91 H Respiratory Rate Blood Pressure Blood Pressure [Left Arm] 119/63 Pulse Oximetry 93 MDM - SOB/Dyspnea Medical Records Attestation: I reviewed the patient's medical records. Lab Data Attestation: I reviewed the patient's lab results. Result diagrams: 11/04/17 10:38 11/04/17 10:38 Lab Results 11/04/17 11/04/17 11/04/17 Range/Units 10:38 10:38 10:38 WBC 10.7 (4.5-11.0) X10^3/uL RBC 4.45 (4.0-5.2) X10^6/uL Hgb 13.8 (12.0-16.0) g/dL Hct 40.3 (36-46) % MCV 90.5 (80-100) fL MCH 31.0 (26-34) PG MCHC 34.2 (30-36) % RDW 13.9 (11.6-14.8) % Plt Count 286 (150-400) X10^3/uL Neut % (Auto) 70.5 (50-75) % Lymph % (Auto) 16.6 L (25-40) % [place] % (Auto) 7.2 (3-14) % Eos % (Auto) 4.7 H (2-4) % Baso % (Auto) 1.0 (0-2) % Neut # (Auto) 7600 H (6354-1409) /uL Sodium 141 (137-145) mmol/L Potassium 4.0 (3.4-5.1) mmol/L Chloride 102 (98-107) mmol/L Carbon Dioxide 27 (22-32) mmol/L BUN 14 (7-17) mg/dL Creatinine 0.60 (0.52-1.04) mg/dL Estimated GFR > 60.0 (>60) mL/min BUN/Creatinine Ratio 23.3 H (6-22) Glucose 102 H (70-100) mg/dL Calcium 8.7 (8.4-10.2) mg/dL Procalcitonin < 0.05 (<0.5) ng/mL Imaging Data Chest x-ray: Radiologist's impression: PROCEDURE: XR CHEST 1V INDICATIONS: cough chest pain TECHNIQUE: One view of the chest was acquired. [facility], 05/26/2017, 15:32[facility], 06/24/2017, 14:46[facility], XR CHEST 1V, 09/21/2017, 16:08. FINDINGS: Surgical changes and devices: A tracheostomy tube is seen. Neck clips are seen. Lungs and pleura: An incomplete inspiratory result is noted, causing a crowded appearance to the lung markings. No focal infiltrates are seen. No pneumothorax or significant pleural effusions are seen. Mediastinum: The cardiac contours are within normal limits. The aorta demonstrates calcification and tortuosity. Bones and chest wall: No suspicious bony lesions. Age-appropriate bony degenerative changes are seen. Overlying soft tissues appear unremarkable. IMPRESSION: Limited portable chest examination, without a significant cardiopulmonary abnormality identified. Dictated by: Colin Pinon M.D. on 11/04/2017 at 9:[address]: Radiologist's impression: [address] [address] [address] Scan Report Signed Patient: Nai Zeng MR#: [id number] : 1960 Acct:[id number] Age/Sex: 57 / F Date of Service: 11/04/17 Loc: ED Accession Number: [id number] Procedure: CT soft tissue neck w con Ordering Provider: Denise Granado D.O. PROCEDURE: CT SOFT TISSUE NECK W CON INDICATIONS: feels neck tightness and welling, hx trach, larngeal cancer TECHNIQUE: After the administration of intravenous contrast, 3.0 mm axial sections acquired from the sella to the aortic arch. Additional oblique axial 3.0 mm sections acquired through the pharynx. 3 mm thick coronal and sagittal reformats were generated. For radiation dose reduction, the following was used: automated exposure control. COMPARISON: [facility], CT, SOFT TISSUE NECK W CONTRAST, 02/19/2017, 17:07. [facility], CT, SOFT TISSUE NECK W CONTRAST, 01/20/2017, 13:18. FINDINGS: Image quality: Excellent. Lymph nodes: No enlarged lymph nodes seen throughout the neck. 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 Atherosclerotic calcifications noted in the carotid arteries which are not significantly changed compared to prior exams. Neck spaces: Postsurgical changes compatible with bilateral neck dissection, laryngectomy and myocutaneous flap placement is stable compared to prior exams. There is focal, mucosal prominence involving the left posterior-lateral oropharyngeal wall. Tracheostomy tube is stable compared to prior examination. Mild skin thickening noted adjacent to the tracheostomy tube which may represent scarring versus recurrent cellulitis. No abscess identified. Glands: The parotid glands appear normal. Submandibular glands are surgically absent. Thyroid gland is surgically absent. Miscellaneous: Visualized brain and orbits appear normal. Consolidation noted in the medial aspect of the lung apices bilaterally which is stable compared to prior examinations which likely represents post radiation change. Superficial soft tissues appear normal. Bones: No suspicious bony lesions. Spine degenerative disc disease and facet arthropathy. Visualized sinuses appear unremarkable. The left mastoid air cells and left middle ear are opacified. IMPRESSION: 1. Focal, nodular mucosal thickening involving the posterior left oropharyngeal wall. Recommend correlation with direct visualization to exclude neoplastic process. 2. Mild skin thickening adjacent to the tracheostomy site stable compared to 02/19/17. Finding a represent soft tissue scarring versus recurrent cellulitis. Please correlate with clinical findings. 3. No abscess. 4. Left middle ear and left mastoid air cell opacification which is stable compared to prior exams. Finding could be due to an chronic infectious/inflammatory etiologies or or less likely neoplastic process. 5. Extensive neck postsurgical change. Dictated by: Zari Lee MD, PhD on 11/04/2017 at 12:13 MDM Narrative Medical decision making narrative: No airway compromise noted on that CT neck. Labs are within normal limits. Patient was suction and given albuterol treatments here she is overall feeling better and breathing better. On at this time I do not see indication for any antibiotics. She feels ready and able to go home. Discharge Plan Departure Patient Disposition: Home Clinical Impression: Bronchitis Discharge Date/Time: 11/04/17 13:30 Interventions: ED Discharge Assessment Last Done: 11/04/17 13:31 Instructions: Chronic Bronchitis Activity Restrictions/Additional Instructions: *You have been diagnosed with chronic bronchitis *What to do: Blood work and x-ray and CT neck within normal limits no need for antibiotics at this time *Continue to take medications as directed *Follow up with your primary care provider in 2-3 days *Return to ER if you should have any new, worsening or concerning symptoms Prescriptions: No Action albuterol sulfate 2.5 MG/3 ML solution for nebulization 1 dose Inhalation QIDP PRN (Reason: Shortness Of Breath) Qty: 180 RF: 0 docusate sodium 100 MG capsule 100 mg PO BID Qty: 0 RF: 0 ferrous gluconate 324 MG tablet 324 mg PO QDAY Qty: 0 RF: 0 omeprazole 20 MG capsule,delayed release(DR/EC) 20 mg PO QDAY Qty: 0 RF: 0 acetaminophen 325 MG tablet 650 mg PO Q6HP PRN (Reason: Pain, Mild) Qty: 0 RF: 0 amitriptyline 25 MG tablet 25 mg PO HS Qty: 0 RF: 0 ascorbic acid (vitamin C) 500 MG tablet 500 mg PO QDAY Qty: 0 RF: 0 fexofenadine 180 MG tablet 180 mg PO QDAY Qty: 0 RF: 0 nystatin 100,000 UNIT/1 ML suspension 1 dose PO DIRECTED Qty: 0 RF: 0 sodium chloride 0.9 % 10 ML solution 1 vial QID PRN (Reason: irrigate tracheostomy) Qty: 0 RF: 0 citalopram 40 mg tablet 40 mg PO DAILY RF: 0 estradiol 2 mg tablet 2 mg PO DAILY RF: 0 lisinopril 10 mg tablet 10 mg PO DAILY RF: 0 tramadol 50 MG tablet 50 mg PO Q6HP PRN (Reason: Pain, Moderate) RF: 0
[2017-11-04 10:35] VITALS: PULSE 97; RESP 22; O2SAT 99
[2017-11-04] MEDS: ALBUTEROL/IPRATROPIUM 3 ML AMPUL INH ×2 (10:35→10:43)
--- NOTE | 2017-11-04 10:36 | DI.RAD.S_ITS ---
PROCEDURE: XR CHEST 1V INDICATIONS: cough chest pain TECHNIQUE: One view of the chest was acquired. COMPARISON: [facility], CHEST 1 VIEW, 03/20/2017, 4:18. [facility], CHEST 1 VIEW, 05/26/2017, 15:32. [facility], CHEST 2 VIEW, 06/24/2017, 14:46. [facility], XR CHEST 1V, 09/21/2017, 16:08. FINDINGS: Surgical changes and devices: A tracheostomy tube is seen. Neck clips are seen. Lungs and pleura: An incomplete inspiratory result is noted, causing a crowded appearance to the lung markings. No focal infiltrates are seen. No pneumothorax or significant pleural effusions are seen. Mediastinum: The cardiac contours are within normal limits. The aorta demonstrates calcification and tortuosity. Bones and chest wall: No suspicious bony lesions. Age-appropriate bony degenerative changes are seen. Overlying soft tissues appear unremarkable. IMPRESSION: Limited portable chest examination, without a significant cardiopulmonary abnormality identified. Dictated by: Colin Pinon M.D. on 11/04/2017 at 9:47 Approved by: Colin Pinon M.D. on 11/04/2017 at 9:48
--- NOTE | 2017-11-04 10:38 | ED_ITS ---
HPI - SOB/Dyspnea General Chief Complaint: Shortness of Breath/Dyspnea Stated Complaint: WHEEZING, THROAT FEELS TIGHT Time Seen by Provider: 11/04/17 10:34 Source: patient Mode of arrival: ambulatory Limitations: no limitations History of Present Illness Patient is a 57-year-old female who presents with difficulty breathing. She has a chronic trach patient with frequent episodes of difficulty breathing. She says this has been going on for 4 days it is overall getting worse. She has had white sputum production no fever. She sometimes feels like throwing up. No chest pain. She was admitted 09/21/2017 after she was stung by a wasp and had difficulty breathing. She feels like her neck is tight and swelling in the back. Related Data Home Medications Medication Instructions Recorded Confirmed albuterol sulfate 1 dose INHALATION QIDP PRN #180 01/25/16 09/21/17 docusate sodium 100 mg PO BID #0 01/25/16 09/21/17 ferrous gluconate 324 mg PO QDAY #0 08/28/16 09/21/17 omeprazole 20 mg PO QDAY #0 08/28/16 09/21/17 acetaminophen 650 mg PO Q6HP PRN #0 10/29/16 09/21/17 amitriptyline 25 mg PO HS #0 01/22/17 09/21/17 ascorbic acid (vitamin C) 500 mg PO QDAY #0 06/10/17 09/21/17 fexofenadine 180 mg PO QDAY #0 06/10/17 09/21/17 nystatin 1 dose PO DIRECTED #0 06/10/17 09/21/17 sodium chloride 0.9 % 1 vial QID PRN #0 06/10/17 09/21/17 citalopram 40 mg PO DAILY 09/21/17 09/21/17 estradiol 2 mg PO DAILY 09/21/17 09/21/17 lisinopril 10 mg PO DAILY 09/21/17 09/21/17 tramadol 50 mg PO Q6HP PRN 09/21/17 09/21/17 Allergies Allergy/AdvReac Type Severity Reaction Status Date / Time hydrocodone Allergy Intermediate RASH/HIVES Verified 09/21/17 16:56 Penicillins Allergy Intermediate RASH/HIVES Unverified 06/17/17 12:06 metronidazole Allergy Mild RASH Unverified 06/17/17 12:06 acetaminophen [ACETAMINOPHEN] Allergy Unknown GI UPSET Unverified 06/17/17 12:06 diphenhydramine Allergy Unknown Unverified 06/17/17 12:06 [DIPHENHYDRAMINE] ibuprofen Allergy Unknown Unverified 06/17/17 12:06 oxycodone [OXYCODONE] Allergy Unknown Unverified 06/17/17 12:06 venom-wasp Allergy Verified 09/21/17 16:57 ranitidine AdvReac Intermediate SOB/DIZZY Unverified 06/17/17 12:06 sulfamethoxazole AdvReac Mild GI UPSET Unverified 06/17/17 12:06 [From Bactrim] trimethoprim [From Bactrim] AdvReac Mild GI UPSET Unverified 06/17/17 12:06 fentanyl [FENTANYL] AdvReac Unknown vomiting Unverified 06/17/17 12:06 ANTACIDS AdvReac Unknown Uncoded 06/17/17 12:06 Review of Systems Review of Systems All systems reviewed & are unremarkable except as noted in HPI and below Constitutional Denies chills, Reports difficulty sleeping, Denies fever(s), Denies lethargy and Denies weakness ENT Ears, Nose, Mouth, and Throat: Reports as per HPI and Reports neck pain Cardiovascular Denies chest pain, Denies irregular heart rhythm, Denies lightheadedness, Denies palpitations and Denies orthopnea Respiratory Reports as per HPI Gastrointestinal Gastrointestinal: Denies abdominal pain, Denies change in bowel habits, Denies diarrhea, Denies nausea and Denies vomiting Musculoskeletal Denies back pain, Denies muscle weakness, Reports neck pain, Denies numbness and Denies tingling Neurologic Denies numbness, Denies tingling and Denies weakness Endocrine Denies palpitations PFSH Medical History Tracheobronchitis (Acute) Chronic pain (Acute) Community acquired pneumonia (Acute) Tracheostomy complication (Acute) Otitis media, purulent, acute, with spontaneous rupture of TM (Acute) Laryngeal cancer (Acute) MRSA (methicillin resistant Staphylococcus aureus) (Acute) Social History household members: significant other Smoking Status: Former smoker alcohol intake: former Exam Initial Vital Signs Initial Vital Signs: Vital Signs Pulse Rate 97 H 11/04/17 10:35 Respiratory Rate 22 11/04/17 10:35 Pulse Oximetry 99 11/04/17 10:35 GENERAL: Anxious female with trach with difficulty breathing HEENT: Head atraumatic,EOMI, pupils reactive, NECK: Trach present, chronic ongoing neck wounds which appear better than I have seen, in the past, no gross pus or erythema. No obvious swelling or masses CARDIOVASCULAR: Regular rate and rhythm without murmurs, rubs or gallops. RESPIRATORY: Decreased breath sounds bilaterally with some wheezing ABDOMEN: Soft, nontender. Normoactive bowel sounds all 4 quadrants. No guarding or rebound. EXTREMITIES: Normal range of motion, no clubbing or edema. Neurovascularly intact NEUROLOGICAL: Alert and oriented x4. Cranial nerves 2-12 intact SKIN: Warm, dry, no laceration, no petechiae, no rashes or lesions. Course Orders Ordered: Discontinued Medications Albuterol/Ipratropium (Duoneb) 3 ml INH NOW ONE Stop: 11/04/17 10:36 Last Admin: 11/04/17 10:35 Dose: 3 ml Albuterol/Ipratropium (Duoneb) 3 ml INH NOW ONE Stop: 11/04/17 12:06 Last Admin: 11/04/17 10:43 Dose: 3 ml Methylprednisolone (Solu-Medrol 125 Mg Vial) 125 mg IV NOW ONE Stop: 11/04/17 10:36 Last Admin: 11/04/17 11:18 Dose: 125 mg Vital Signs - 8 hr 11/04/17 10:35 11/04/17 10:43 11/04/17 10:45 Temperature 99.0 F Pulse Rate 97 H 102 H 105 H Respiratory Rate 22 24 18 Blood Pressure 226/157 H Blood Pressure [Left Arm] Pulse Oximetry 99 98 99 11/04/17 12:06 Temperature Pulse Rate 91 H Respiratory Rate Blood Pressure Blood Pressure [Left Arm] 119/63 Pulse Oximetry 93 MDM - SOB/Dyspnea Medical Records Attestation: I reviewed the patient's medical records. Lab Data Attestation: I reviewed the patient's lab results. Result diagrams: 11/04/17 10:38 11/04/17 10:38 Lab Results 11/04/17 11/04/17 11/04/17 Range/Units 10:38 10:38 10:38 WBC 10.7 (4.5-11.0) X10^3/uL RBC 4.45 (4.0-5.2) X10^6/uL Hgb 13.8 (12.0-16.0) g/dL Hct 40.3 (36-46) % MCV 90.5 (80-100) fL MCH 31.0 (26-34) PG MCHC 34.2 (30-36) % RDW 13.9 (11.6-14.8) % Plt Count 286 (150-400) X10^3/uL Neut % (Auto) 70.5 (50-75) % Lymph % (Auto) 16.6 L (25-40) % [place] % (Auto) 7.2 (3-14) % Eos % (Auto) 4.7 H (2-4) % Baso % (Auto) 1.0 (0-2) % Neut # (Auto) 7600 H (1799-8892) /uL Sodium 141 (137-145) mmol/L Potassium 4.0 (3.4-5.1) mmol/L Chloride 102 (98-107) mmol/L Carbon Dioxide 27 (22-32) mmol/L BUN 14 (7-17) mg/dL Creatinine 0.60 (0.52-1.04) mg/dL Estimated GFR > 60.0 (>60) mL/min BUN/Creatinine Ratio 23.3 H (6-22) Glucose 102 H (70-100) mg/dL Calcium 8.7 (8.4-10.2) mg/dL Procalcitonin < 0.05 (<0.5) ng/mL Imaging Data Chest x-ray: Radiologist's impression: PROCEDURE: XR CHEST 1V INDICATIONS: cough chest pain TECHNIQUE: One view of the chest was acquired. COMPARISON: [facility], CHEST 1 VIEW, 03/20/2017, 4:18. [facility], CHEST 1 VIEW, 05/26/2017, 15:32. [facility], CHEST 2 VIEW, 06/24/2017, 14:46. [facility], XR CHEST 1V, 09/21/2017, 16:08. FINDINGS: Surgical changes and devices: A tracheostomy tube is seen. Neck clips are seen. Lungs and pleura: An incomplete inspiratory result is noted, causing a crowded appearance to the lung markings. No focal infiltrates are seen. No pneumothorax or significant pleural effusions are seen. Mediastinum: The cardiac contours are within normal limits. The aorta demonstrates calcification and tortuosity. Bones and chest wall: No suspicious bony lesions. Age-appropriate bony degenerative changes are seen. Overlying soft tissues appear unremarkable. IMPRESSION: Limited portable chest examination, without a significant cardiopulmonary abnormality identified. Dictated by: Colin Pinon M.D. on 11/04/2017 at 9:[address]: Radiologist's impression: [address] [address] [address] Scan Report Signed Patient: Nai Zeng MR#: [id number] : 1960 Acct:[id number] Age/Sex: 57 / F Date of Service: 11/04/17 Loc: ED Accession Number: [id number] Procedure: CT soft tissue neck w con Ordering Provider: Denise Granado D.O. PROCEDURE: CT SOFT TISSUE NECK W CON INDICATIONS: feels neck tightness and welling, hx trach, larngeal cancer TECHNIQUE: After the administration of intravenous contrast, 3.0 mm axial sections acquired from the sella to the aortic arch. Additional oblique axial 3.0 mm sections acquired through the pharynx. 3 mm thick coronal and sagittal reformats were generated. For radiation dose reduction, the following was used: automated exposure control. COMPARISON: [facility], CT, SOFT TISSUE NECK W CONTRAST, 02/19/2017, 17: 07. [facility], CT, SOFT TISSUE NECK W CONTRAST, 01/20/2017, 13:18. FINDINGS: Image quality: Excellent. Lymph nodes: No enlarged lymph nodes seen throughout the neck. 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 Atherosclerotic calcifications noted in the carotid arteries which are not significantly changed compared to prior exams. Neck spaces: Postsurgical changes compatible with bilateral neck dissection, laryngectomy and myocutaneous flap placement is stable compared to prior exams. There is focal, mucosal prominence involving the left posterior-lateral oropharyngeal wall. Tracheostomy tube is stable compared to prior examination. Mild skin thickening noted adjacent to the tracheostomy tube which may represent scarring versus recurrent cellulitis. No abscess identified. Glands: The parotid glands appear normal. Submandibular glands are surgically absent. Thyroid gland is surgically absent. Miscellaneous: Visualized brain and orbits appear normal. Consolidation noted in the medial aspect of the lung apices bilaterally which is stable compared to prior examinations which likely represents post radiation change. Superficial soft tissues appear normal. Bones: No suspicious bony lesions. Spine degenerative disc disease and facet arthropathy. Visualized sinuses appear unremarkable. The left mastoid air cells and left middle ear are opacified. IMPRESSION: 1. Focal, nodular mucosal thickening involving the posterior left oropharyngeal wall. Recommend correlation with direct visualization to exclude neoplastic process. 2. Mild skin thickening adjacent to the tracheostomy site stable compared to . Finding a represent soft tissue scarring versus recurrent cellulitis. Please correlate with clinical findings. 3. No abscess. 4. Left middle ear and left mastoid air cell opacification which is stable compared to prior exams. Finding could be due to an chronic infectious/inflammatory etiologies or or less likely neoplastic process. 5. Extensive neck postsurgical change. Dictated by: Zari Lee MD, PhD on 11/04/2017 at 12:13 MDM Narrative Medical decision making narrative: No airway compromise noted on that CT neck. Labs are within normal limits. Patient was suction and given albuterol treatments here she is overall feeling better and breathing better. On at this time I do not see indication for any antibiotics. She feels ready and able to go home. Discharge Plan Departure Patient Disposition: Home Clinical Impression: Bronchitis Discharge Date/Time: 11/04/17 13:30 Interventions: ED Discharge Assessment Last Done: 11/04/17 13:31 Instructions: Chronic Bronchitis Activity Restrictions/Additional Instructions: *You have been diagnosed with chronic bronchitis *What to do: Blood work and x-ray and CT neck within normal limits no need for antibiotics at this time *Continue to take medications as directed *Follow up with your primary care provider in 2-3 days *Return to ER if you should have any new, worsening or concerning symptoms Prescriptions: No Action albuterol sulfate 2.5 MG/3 ML solution for nebulization 1 dose Inhalation QIDP PRN (Reason: Shortness Of Breath) Qty: 180 RF: 0 docusate sodium 100 MG capsule 100 mg PO BID Qty: 0 RF: 0 ferrous gluconate 324 MG tablet 324 mg PO QDAY Qty: 0 RF: 0 omeprazole 20 MG capsule,delayed release(DR/EC) 20 mg PO QDAY Qty: 0 RF: 0 acetaminophen 325 MG tablet 650 mg PO Q6HP PRN (Reason: Pain, Mild) Qty: 0 RF: 0 amitriptyline 25 MG tablet 25 mg PO HS Qty: 0 RF: 0 ascorbic acid (vitamin C) 500 MG tablet 500 mg PO QDAY Qty: 0 RF: 0 fexofenadine 180 MG tablet 180 mg PO QDAY Qty: 0 RF: 0 nystatin 100,000 UNIT/1 ML suspension 1 dose PO DIRECTED Qty: 0 RF: 0 sodium chloride 0.9 % 10 ML solution 1 vial QID PRN (Reason: irrigate tracheostomy) Qty: 0 RF: 0 citalopram 40 mg tablet 40 mg PO DAILY RF: 0 estradiol 2 mg tablet 2 mg PO DAILY RF: 0 lisinopril 10 mg tablet 10 mg PO DAILY RF: 0 tramadol 50 MG tablet 50 mg PO Q6HP PRN (Reason: Pain, Moderate) RF: 0
[2017-11-04 10:43] VITALS: BP 226/157; PULSE 102; RESP 24; TEMP 37.2; O2SAT 98; BMI 32.3
[2017-11-04 10:45] VITALS: PULSE 105; RESP 18; O2SAT 99
[2017-11-04 10:45] LABS: Add Manual Diff / Slide Review NO; Eosinophils Percent Auto 4.7 % (2-4); Hematocrit 40.3 % (36-46); Hemoglobin 13.8 g/dL (12.0-16.0); Lymphocytes Percent Auto 16.6 % (25-40); Mean Corpuscular HGB Conc 34.2 % (30-36); Mean Corpuscular Volume 90.5 fL (80-100); Monocytes Percent Auto 7.2 % (3-14); Neutrophils Absolute Auto 7600 /uL (3000-5900); Neutrophils Percent Auto 70.5 % (50-75); Platelet Count 286 X10^3/uL (150-400); Red Blood Cell Count 4.45 X10^6/uL (4.0-5.2); Red Cell Distribution Width 13.9 % (11.6-14.8); White Blood Cell Count 10.7 X10^3/uL (4.5-11.0)
[2017-11-04 11:06] LABS: BUN Creatinine Ratio 23.3 (6-22); Blood Urea Nitrogen 14 mg/dL (7-17); Calcium 8.7 mg/dL (8.4-10.2); Carbon Dioxide 27 mmol/L (22-32); Chloride 102 mmol/L (98-107); Estimated Glomerular Filt Rate > 60.0 mL/min (>60); Glucose 102 mg/dL (70-100); HEMOLYSIS < 15 (0-50); Sodium 141 mmol/L (137-145)
[2017-11-04] MEDS: methylPREDNISolone 125 MG/2 ML VIAL IV (11:18)
[2017-11-04 11:29] LABS: Procalcitonin < 0.05 ng/mL (<0.5)
--- NOTE | 2017-11-04 12:04 | DI.CT.S_ITS ---
PROCEDURE: CT SOFT TISSUE NECK W CON INDICATIONS: feels neck tightness and welling, hx trach, larngeal cancer TECHNIQUE: After the administration of intravenous contrast, 3.0 mm axial sections acquired from the sella to the aortic arch. Additional oblique axial 3.0 mm sections acquired through the pharynx. 3 mm thick coronal and sagittal reformats were generated. For radiation dose reduction, the following was used: automated exposure control. COMPARISON: [facility], CT, SOFT TISSUE NECK W CONTRAST, 02/19/2017, 17:07. [facility], CT, SOFT TISSUE NECK W CONTRAST, 01/20/2017, 13:18. FINDINGS: Image quality: Excellent. Lymph nodes: No enlarged lymph nodes seen throughout the neck. 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 Atherosclerotic calcifications noted in the carotid arteries which are not significantly changed compared to prior exams. Neck spaces: Postsurgical changes compatible with bilateral neck dissection, laryngectomy and myocutaneous flap placement is stable compared to prior exams. There is focal, mucosal prominence involving the left posterior-lateral oropharyngeal wall. Tracheostomy tube is stable compared to prior examination. Mild skin thickening noted adjacent to the tracheostomy tube which may represent scarring versus recurrent cellulitis. No abscess identified. Glands: The parotid glands appear normal. Submandibular glands are surgically absent. Thyroid gland is surgically absent. Miscellaneous: Visualized brain and orbits appear normal. Consolidation noted in the medial aspect of the lung apices bilaterally which is stable compared to prior examinations which likely represents post radiation change. Superficial soft tissues appear normal. Bones: No suspicious bony lesions. Spine degenerative disc disease and facet arthropathy. Visualized sinuses appear unremarkable. The left mastoid air cells and left middle ear are opacified. IMPRESSION: 1. Focal, nodular mucosal thickening involving the posterior left oropharyngeal wall. Recommend correlation with direct visualization to exclude neoplastic process. 2. Mild skin thickening adjacent to the tracheostomy site stable compared to 02/19/17. Finding a represent soft tissue scarring versus recurrent cellulitis. Please correlate with clinical findings. 3. No abscess. 4. Left middle ear and left mastoid air cell opacification which is stable compared to prior exams. Finding could be due to an chronic infectious/inflammatory etiologies or or less likely neoplastic process. 5. Extensive neck postsurgical change. Dictated by: Zari Lee MD, PhD on 11/04/2017 at 12:13 Approved by: Zari Lee MD, PhD on 11/04/2017 at 12:24
[2017-11-04 12:06] VITALS: BP 119/63; PULSE 91; O2SAT 93
--- NOTE | 2017-11-04 12:59 | PC.NURSE ---
pt 02 saturation dropped to 86% provider at bedside. RT called to suction and give one more breathing TX per provider before depart.
[2017-11-04 13:05] VITALS: PULSE 95; RESP 20; O2SAT 95
[2017-11-04 13:08] VITALS: BP 119/70; PULSE 92; RESP 19; O2SAT 99
== END 2017-11-04 13:30 | disposition home or self-care (01) ==
PROVIDERS: Emergency Provider Emergency Medicine
DX: J40 Bronchitis, not specified as acute or chronic (principal)
CPT/HCPCS: 36591; 70491; 71045; 80048; 84145; 85025; 94640; 94760; 96374; 99282; 99285; J2930; Q9967

== ENCOUNTER → 2017-11-05 09:17 | Outpatient (CLI) | payer OTHER, MEDICAID, SELFPAY ==
[2017-09-21 21:10] VITALS: BMI 32.3
--- NOTE | 2017-11-05 | OV.WND_ITS ---
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 Allergies Penicillins (Severity: Moderate, Reaction: rash and hives), Vicodin (Severity: Moderate, Reaction: Rash and hives), ibuprofen (Severity: Moderate, Reaction: Rash and hives), Gelusil Antacid and Anti-Gas (Severity: Moderate, Reaction: increase in stomach discomfort), Septra (Severity: Moderate, Reaction: GI upset), Flagyl (Severity: Moderate, Reaction: Rash), Benadryl (Reaction: Rash), ranitidine (Severity: Moderate, Reaction: SOB, dizzy) HPI This information was obtained from the patient 11/05/17. Seen by Dr. Cornell. The patient reports a persistent productive cough for which she went to the ER recently. She was not placed on antibiotics. She does not report significant pain or drainage from the anterior neck soft tissue radiation ulcer however this tends to become contaminated via her laryngostomy site when she develops a productive cough. 10/29/17. Seen by Dr. Cornell. 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 10/22/17. Seen by Dr. Cornell. The patient reports persistence of a productive cough despite completing a recent course of doxycycline. The sputum tends to contaminate her anterior neck soft tissue ulcer via her laryngectomy stoma. She does not report increased pain or drainage associated with the ulcer however since her last visit. 10/13/17. Seen by Dr. Cornell. The patient does not report increased pain associated with the anterior neck soft tissue radiation ulcer since her previous visit ad she continues on doxycycline for bronchitis. Her dressings have been adjusted to facilitate frequent changing in light of her coughing and presumed contamination of the ulcer via her tracheostomy. 10/09/17. Seen by Dr. Cornell. The patient's now on doxycycline for recurrence of bronchitis. 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 The dressing has been chosen specifically to help prevent abrasion to the irradiated skin caused by the tracheostomy tube strap. 10/02/17. Seen by Dr. Cornell. 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 She does not report significant pain or drainage from the ulcer nor side effects of the antibiotics. The ulcer had deteriorated considerably over the previous 2 weeks and we adjusted dressings to better protect against abrasion caused by her tracheostomy tube and strap. 09/28/17. Seen by Dr. Cornell. The patient continues to report pain associated with the anterior soft tissue radiation neck ulcer and her wound culture from week grew Group A strep, Staph, and diptheroids. She's not currently on antibiotics and we've changed her dressing to better protect against abrasion from the tracheostomy tube and strap. 09/24/17. Seen by Dr. Cornell. The patient does not report increased pain associated with the anterior neck soft tissue radiation ulcer however the nurse feels the ulcer is longer than on her previous visit. 09/17/17. Seen by Dr. Cornell. 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 She has an appointment tomorrow with her PCP to address this problem. Otherwise she does not report increased pain or drainage associated with the ulcer however the nurse reports the ulcer as being larger this week. 09/10/17. Seen by Dr. Cornell. 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 Her culture at the last visit grew Diptherioids and he's applying topical gentamicin with dressing changes which has been adjusted to better protect the site from the abrading ET tube and strap. 09/07/17. Seen by Dr. Cornell. 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 The staff also feels the ulcer's increased in size and she's no long on oral antibiotics that were prescribed recently for a Enterococcus positive wound culture. 08/31/17. Seen by Finn Felton PA-C. The patient reports pain associated with her chronic neck radiation ulcer. 08/24/17. Seen by Dr. Cornell. 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 She continues to apply topical gentamicin to the ulcer to treat the Enterococcus positive wound culture as recommended. 08/14/17. Seen by Dr. Cornell. The patient's been applying topical gentamicin daily to the soft tissue radiation neck ulcer to treat the recent Enterococcus positive wound culture and she's completed her course of levofloxacin. 08/07/17. Seen by Dr. Cornell. 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 She does not report increased pain nor drainage from the site however nor other acute issues today. 07/31/17. Seen by Dr. Cornell. 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 07/24/17. Seen by Dr. Cornell. 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 07/17/17. Seen by Dr. Cornell. 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 Of note, the patient also states she fell from her bed a few days ago resulting in bilateral black eyes. 07/10/2017. Seen by Dr. Cornell. 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 She does not report increased drainage however nor other acute issues. 07/03/17. Seen by Dr. Cornell. 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 06/19/17. Seen by Dr. Cornell. 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 06/09/17. Seen by Dr. Cornell. The patient reports some pain associated with the anterior neck right sided soft tissue radiation ulcer and continues on doxycycline and levofloxacin following a recent admission for a COPD exacerbation. She does not report increased drainage from the ulcer sites and is using Xeroform and Scar-away dressings as recommended. 06/01/17. Seen by Dr. Cornell. The patient was admitted to the hospital for a COPD exacerbation and is now on oral antibiotics following discharge. She reports some ear pain but otherwise no acute issues. Regarding her soft tissue radiation ulcers over the anterior neck she is now using the silicone dressings and Xeroform as recommended and does not report significant pain or drainage.Of note, these are complicated significantly by her tracheostomy tube and attached strap that tends to shear the irradiated skin causing ulcers. 05/25/17. Seen by Dr. Cornell. The patient reports pain associated with the chronic soft tissue radiation neck ulcers. She states her dressings are not on continuously and that she has been wearing her tracheostomy strap for extended periods at home despite our advice to not use it if possible. 05/18/17. Seen by Finn Felton PA-C. The patient reports continued pain from her soft tissue radiation ulcers of the neck. She has finished a once daily antibiotic for a URI but does not recall which antibiotic it was. 05/11/17. Seen by Finn Felton PA-C. The patient reports increased pain and increased drainage from her soft tissue radiation ulcers of the neck. 04/23/17. Similarly Dr. Cornell. The patient does not report increased pain nor drainage associated with the chronic neck soft tissue radiation ulcers since her last visit. 04/16/17. Seen by Finn Felton PA-C. The patient reports that the Radia-gel dressings did not stay in place and the tape used to secure them caused skin tears. 04/09/17. Seen by Finn Felton PA-C. The patient reports no increase in drainage from her radiation ulcers of the neck. 04/02/17. Seen by Finn Felton PA-C. The patient reports her usual amount of pain from her anterior neck ulcers. 03/26/17. Seen by Dr. Cornell. 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 She was discharged recently from [facility] following treatment for an acute URI and is now on levofloxacin. 03/19/17. Seen by Dr. Cornell. The patient does not report significant pain associated with chronic anterior neck soft tssue radiation ulcer since her last visit. 03/12/17. Seen by Dr. Cornell. The patient reports increased pain associated with the anterior neck soft tissue radiation ulcers. Of note, she is reusing her silicon dressings and washing them despite being advised not to do this in the past. She has very limited financial resources that is leading her to do this. 03/04/17. Seen by Dr. Cornell. 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 She continues on doxycycline for a cat bite at the right arm without reported adverse side effects and feels this is improving. There are also no new issues regarding his left neck nonpressure ulcer. 02/24/17. Seen by Dr. Cornell. 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 She was seen in the ER for this and had a CT performed that showed cellulitis but no associated abscess. She was started on levofloxacin at that visit. Also, she was to start doxycycline following her last wound care visit for a cat bite of the right arm however states the antibiotic was not covered by insurance so she has not started this. Otherwise, she does not report fevers or feeling unwell in general. 02/17/17. Seen by Dr. Cornell. The patient reports continued pain associated with the anterior and left lateral neck soft tissue radiation ulcers since her last visit. She is not currently on antibiotics. She also reports a cat bite of the right arm that's been bleeding and painful for the past 2 days since it occurred. 02/10/17. Seen by Finn Felton PA-C. The patient reports a new ulcer on her left neck , in the irradiated area from her previous radiation treatment. 01/16/17. Seen by Dr. Cornell. The patient reports some moderate pain and drainage associated with her chronic neck soft tissue radiation ulcers since her last visit. 01/09/17. Seen by Dr. Cornell. The patient does not report significant pain or increased drainage associated with her chronic neck soft tissue radiation ulcers since her last visit. Her recent wound culture grew ocampo-sensitive Staph aureus and she's applying topical gentamicin as recommended. 01/01/17. Seen by Finn Felton PA-C. The patient reports increased pain and drainage from her chronic neck ulcers which overly an irradiated field. 12/17/16. Seen by Dr. Cornell. The patient does not report significant pain or increased drainage associated with her chronic neck soft tissue radiation ulcers since her last visit. She'll be leaving for a hunting trip and will be gone until December 31. 12/11/16. Seen by Dr. Cornell. The patient does not report significant pain nor drainage associated with chronic neck soft tissue radiation ulcers since her last visit. She completed her course of levofloxacin in the interim and also states that she will not be undergoing reconstructive surgery following discussion with her surgeons. 11/27/16. Seen by Dr. Cornell. The patient reports increased pain and some bloody drainage associated with the anterior neck soft tissue radiation ulcer. She also states that she's had a persistent and productive cough over the past few days. Her most recent wound culture grew MSSA and the prior grew a pansensitive Pseudomonas organism. Staff also report a new ulcer over the left anterior neck. 11/20/16. Seen by Finn Felton PA-C. The patient came in urgently today to be evaluated for increased bleeding and drainage from her neck ulcers which overly radiation damaged tissue. 11/14/16. Seen by Dr. Cornell. The patient continues to apply topical gentamicin to the chronic soft tissue radiation neck ulcers to treat the recent Pseudomonas positive wound culture. She does not report significant pain or increased drainage from these sites. She has an appointment with another surgeon on November 21 to further discuss reconstructive options regarding the narrowing of her stoma and significant soft tissue contractures around the anterior neck. 11/07/16. Seen by Dr. Cornell. The patient reports a new ulcer over the left side of her neck at an area of scarring associated with her chronic soft tissue radiation injury of the neck. She does not report significant pain nor drainage at the site nor from the chronic anterior nonpressure ulcer. Her last culture at that site grew Pseudomonas that is intermediately. 10/31/16. Seen by Dr. Cornell. The patient and her caregiver reports increased drainage associated with the chronic and progressive right anterior neck soft tissue radiation ulcer over the past week. They're having issues in terms of dressing changes and managing increased drainage and the patient also has a persistent and productive cough with mucus being expelled from the tracheostomy site. Of note, the caregiver states that she has been attempting to liaise with Dr. Lopez's office, ENT surgery at , regarding a follow up appointment to discuss reconstructive surgery in hopes of addressing the chronic skin contractures that are contributing heavily to the refractory nature of this neck ulcer. 10/23/16. Seen by Finn Felton PA-C. The patient reports no increase in pain or drainage from her neck ulcer. Her two ulcers have bridged into one ulcer. She has no new news regarding a surgical revision. 10/10/16. Seen by Dr. Cornell.The patient does not report increased pain or drainage associated with the chronic soft tissue neck radiation ulcers since her last visit. Her culture from the last visit grew diphtheroids and she's been applying topical gentamicin as recommended. According to her caregiver they have still not heard back regarding an appointment with her surgeon who is planning a revision for the stenosed tracheostomy site noting the tube is contributing significantly to the ulcer formation. She also does not report significant pain or drainage associated with the superficial abdominal abscess noted at her last visit. 10/03/16. Seen by Dr. Cornell. The patient continues to report some pain associated with the chronic neck soft tissue radiation ulcers. The patient caregiver feels the proximal ulcer continues to increase in size. They have not yet scheduled an appointment for revision surgery for the tracheostomy as was discussed last week. 09/26/16. Seen by Dr. Cornell. The patient continues to report some pain as well as persistent drainage associated with the chronic right neck soft-tissue radiation ulcers. 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 He is planning for a revision surgery to try to address this issue in the near future. 09/19/16. Seen by Dr. Cornell. The patient and her brother continue to report some pain associated with the chronic neck nonpressure ulcers but no increased drainage and they've been changing the silicon dressings as recommended to protect the soft-tissue radiation injured skin and protect against abrasion caused by the tracheosteomy tube. Of note, the patient feels as though the stoma may gradually be tightening as she continues to have some difficulty replacing the tube after taking it out. She also reports some persistent productive coughing and nasal drainage in the evenings and through the night and feels it may be related to allergies. 09/01/16. Seen by Dr. Cornell. The patient's brother who's present today reports that the patient's silicon dressings are being changed less frequently than recommended and in washing them the adherence is deteriorating which may be leading to loss of function in terms of protecting the underlying irradiated skin and neck ulcers. She does not report increased drainage or pain associated with the neck ulcers today. 08/28/16. Seen by Dr. Cornell. The patient removed her tracheostomy tube in clinic today and is having difficulty replacing it. She's a bit anxious at the time of exam but is breathing without distress or audible stridor. Regarding her chronic neck soft tissue radiation ulcers, there's no new issues to report and she's been dressing them as recommended. 08/21/16. Seen by Dr. Cornell. The patient reports continued pain and drainage associated with the chronic soft tissue radiation ulcer along the margin of her tracheostomy stoma. She and her caregiver are dressing it as recommended and she's completed her course of antibiotics those treating the recently cultured MRSA. 08/15/16. Seen by Dr. Cornell. The patient reports increased pain associated with the chronic soft tissue radiation neck ulcers since her last visit and her caregiver reports some thick overlying drainage around the mid-line ulcer adjacent to the tracheostomy stoma. She does not report fevers or feeling unwell however and has been applying topical antibiotic to the ulcers as recommended. 08/08/16. Seen by Dr. Cornell. The patient reports continued pain associated with the chronic anterior neck non-pressure ulcers and they've been applying topical gentamicin to treat the recurrent MRSA positive wound cutlures. She's also wearing her silicon dressing as recommended to help protect the soft tissue radiation injury of the skin from abrasion caused by her tracheostomy tube strap. 08/01/16. Seen by Dr. Cornell. The patient's caregiver reports improvement in terms of pain and drainage associated with the chronic neck ulcers. They've been applying topical gentamicin as recommended for the chronic wound infections. 07/23/16. Seen by Dr. Cornell. The patient's caregiver reports improvement in terms of pain and drainage associated with the chronic neck ulcers overlying the soft tissue radiation injury that follow treatment for her laryngeal cancer years ago. They've been applying topical gentamicin as recommended for the chronic wound infections. 07/09/16. Seen by Finn Felton PA-C. The patient reports she has run out of the silicone strips that were fabricated by [employer] to reduce abrasion from her laryngostomy collar. She is using scar fade strips which are not staying in place. Her neck ulcers continue to be present under the collar. 06/25/16. Seen by Dr. Cornell. The patient's caregiver reports improvement in terms of pain and drainage associated with the chronic neck ulcers. They've been applying topical gentamicin as recommended for the chronic wound infections. 06/11/16. Seen by Dr. Cornell. The patient reports improvement in terms of pain and drainage associated with the chronic neck ulcers. She completed her course of ciprofloxacin which was treating the recurrent ulcer infections and she continues to apply topical gentamicin to the ulcer beds. 06/04/16. Seen by Dr. Cornell. The patient continues to report some pain and minimal drainage associated with the chronic neck ulcers are complicated by underlying soft tissue radiation injury. She was just discharged from the hospital for tracheobronchitis and continues on ciprofloxacin with cultures that have grown Pseudomonas, Staph, and Haemophilus. She does not report adverse side effects from antibiotics nor fevers or feeling unwell today although she continues to have a mild cough. 05/26/16. Seen by Finn Felton PA-C. The patient reports no increase in drainage or pain from her neck ulcers. 05/16/16. Seen by Dr. Cornell. The patient does not report significant pain nor drainage associated with the recurrent neck soft tissue radiation ulcers since her last visit. She's been applying topical gentamicin as recommended and wearing the silicon dressings to protect from the trach tube strap rubbing on the irradiated skin.Also, her wound culture from the last visit grew MSSA. 05/09/16. Seen by Dr. Cornell. The patient feels her recurrent soft tissue radiation ulcers over the mid and left aspects of her neck are painful and draining for the past week. She reports wearing her silicon dressing but does not have it in place all of the time and has been leaving her tracheostomy tube strap off for extended periods during the day to help prevent abrasion. She's been applying topical gentamicin to the ulcers but is not currently on systemic antibiotics. 04/29/16. Seen by Finn Felton PA-C. The patient reports continued compliance with her silicone skin protector that she wears under her collar. She reports improvement in her neck ulcers, however she ran out of supplies a few days ago and now reports worsening of the ulcers. 04/11/16. Seen by Dr. Cornell. The patient reports decreased pain and drainage associated with the chronic neck non-pressure ulcers over the patient week and she's applying topical gentamicin to treat the chronic MRSA wound infection as recommended. She's also using silicon dressings to help better protect the soft tissue radiation injury to the neck which is heavily implicated in the recurrent and refractory nature of the ulcers. 04/04/16. Seen by Dr. Cornell. The patient reports an increase in the size and pain associated with the left neck non-pressure ulcer since her last visit. She's applying gentamicin ointment to all of the ulcers a recommended and using the silicon dressings to help prevent abrasion caused by the trach tube strap. 03/28/16. Seen by Dr. Cornell. The patient reports decreased pain and drainage associated with the chronic neck non-pressure ulcers over the patient week and she's restarted use of the silicon dressings again to protect the irradiated skin that's been breaking down under the trach strap and contributing to the recurrent and refractory nature of the ulcers. 03/21/16. Seen by Dr. Cornell. The patient reports decreased pain and drainage associated with the chronic neck non-pressure ulcers over the patient week and she continues applying topical gentamicin to treat the chronic MRSA wound infection. 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 03/13/15. Seen by Dr. Cornell. The patient reports decreased pain and drainage associated with the chronic neck non-pressure ulcers over the patient week since starting on doxycycline for a recurrent MRSA wound infection. She's now using silicon dressings to protect the irradiated skin over the neck that resulted from radiation therapy treating laryngeal cancer. She does not report adverse effects of the doxycycline and is also applying topical gentamicin daily to the ulcer sites. 03/06/16. Seen by Dr. Cornell. The patient reports persistent pain associated with the recurrent neck non-pressure ulcers and staff report they're larger and are draining based on the dressings. 02/28/16. Seen by Dr. Cornell. The patient returns with new ulcers overlying her soft tissue radiation neck injury that resulted following treatment for laryngeal cancer. She states she ran out of the silicon dressings she uses to protect the area from her trach tube strap and after this the ulcers appeared and are quite painful. Their draining however she does not report fevers. 11/28/15. Seen by Dr. Cornell. 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 11/21/15. Seen by Dr. Cornell. The patient reports some minimal pain associated with the chronic neck soft tissue radiation ulcer since her last visit. She also complains of right ear pain and has asked me to have look in the ear as it feels like there may be a foreign body present. She also reports a mild cough, sore throat, and feeling a bit unwell in general. 11/14/15. Seen by Dr. Cornell. The patient reports moderate pain but no significant drainage associated with the left neck soft tissue radiation ulcer since her last visit. 10/31/15. Seen by Dr. Cornell. The patient reports some pain associated with the left neck soft tissue radiation ulcer but no increased drainage from either ulcer nor pain associated with the middle soft tissue radiation ulcer. Her caregiver notes that they're running out of the silicon dressings and they've become nearly prohibitively expensive. 10/12/15 Seen by Finn Felton PA-C. The patient returns to our clinic after reconstructive scar- revision surgery on her radiation damaged neck. She has wounds that have been left to close by secondary intention and are slow to heal. In addition, her silicone strips that help hold her laringostomy collar in place continue to work well for her. 09/07/[address] Cornell. The patient presents with a new rash over the right neck overlying the soft tissue radiation injury. Of note, her very chronic wounds at the same site were recently healed. She dose not report pain, drainage, or skin breakdown associated with the rash. 08/24/[address] Cornell. The patient does not report pain or drainage associated with the chronic neck soft tissue radiation ulcers over the past few days and she's using the silicon dressings to cover the ulcers. 08/15/[address] Cornell. The patient nor her caregiver report significant pain or drainage from either the left or right neck soft tissue radiation ulcers over the past week and she's received her silicon dressings that are being used to prevent abrasion to the skin caused by her laryngostomy tube strap. 08/09/[address] Conrell. 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 Otherwise the right neck ulcers remain relatively stable and have minimal drainage over the past week. 08/02/[address] Cornell. The patient reports minimal discomfort associated with the chronic neck soft tissue radiation ulcers and her caregiver feels they've improved considerably over the past week while applying gentamicin ointment and using the silicon dressing to prevent abrasion from the trach strap. 07/26/[address] Cornell. The patient reports only moderate discomfort and minimal drainage associate with her remaining soft tissue radiation ulcers of the neck. 07/19/[address] Cornell. The patient's caregiver reports increased drainage on the dressings covering the neck soft tissue radiation ulcers and the patient reports some increased pain at the ulcer sites. They're also running out of the silicon dressings they' ve been using to protect the ulcers from abrasion caused by the overlying trach strap. She does not report any problems regarding the chronic left upper arm wound. 07/12/[address] Cornell. The patient does not report increased pain or drainage associated with her chronic neck soft tissue radiation ulcers and she's been using her silicon wound dressings daily. She feels her ulcers are much less painful since changing to the new dressings. 07/05/[address] Cornell. The patient reports a significant improvement in pain regarding her chronic neck soft tissue radiation ulcers since starting to use adherent silicon dressings to prevent abrasion caused by her trach strap. She does not report significant drainage from the ulcers. 06/22/[address] Cornell. The patient continues to report persistent pain associated with the chronic neck soft tissue radiation ulcers. 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 06/12/15 Seen by Finn Felton PA-C. The patient reports continued pain from her radiation neck ulcers. 06/05/15 Seen by Finn Felton PA-C. The patient reports continued pain and stable drainage from her neck radiation ulcers. She continues to use her favored dressings instead of ones that we have recommended for her. 05/21/15 Seen by Finn Felton PA-C. The patient reports continued pain and no change in drainage from her neck radiation ulcers and her arm and chest wounds. 05/08/15 Seen by Finn Felton PA-C. The patient reports continued pain and stable drainage from her neck radiation ulcers. Flores from [facility] attended part of the appointment to try fitting her for the laryngectomy collar protective prosthetic. 04/25/[address] Cornell. The patient continues to report significant pain associated with the chronic soft tissue radiation neck ulcers and the staff report at least moderate drainage on her dressings today. She does not report fevers or feeling unwell otherwise. 04/11/[address] Cornell. The patient been on levofloxacin and doxycycline for Pseudomonas and MRSA positive wounds cultures taken from her soft tissue radiation ulcers over the neck and around the laryngostomy wound. She still reports pain associated with the ulcers but indicates it's not as bad as last week. 04/05/[address] Cornell. The patient reports persistent pain associated with her neck soft tissue radiation ulcers. She's currently on levofloxacin and doxycycline for the Pseudomonas and MRSA positive culture taken at the last visit and she does not report adverse side effects. 03/28/2015 Seen by Finn Felton PA-C. The patient continues to complain of neck ulcer pain. In addition she again asks today why are they hurting. She has not been compliant with any of our attempts at specialized laryngectomy collar padding or dressings. 03/21/2015 Seen by Finn Felton PA-C. The patient returns with stable 6-7/10 constant pain from the radiation ulcers on her neck. She continues on Doxycycline and has finished her course of prednisone for a URI as prescribed by her PCP. He has recently not been able to keep the Radiagel sheets attached to her neck or tracheostomy collar and has gone back to using Xeroform gauze. 02/19/15 Seen by Finn Felton PA-C. The patient returns for evaluation of her radiation ulcers of the neck. She reports continued pain and her most recent dressings that we have trialed did not stay in place. 02/12/15 Seen by Finn Felton PA-C. The patient reports continued neck pain from her radiation ulcers as well as tightness in her surrounding neck tissues. She reports the pain is exacerbated by rubbing of her tracheostomy tube macias and by any palpation or instrumentation. Drainage has been minimal. 02/05/15 Seen by Finn Felton PA-C. The patient presents today with a new wound on her left lateral neck, on her irradiated tissue. This wound is 01/24/[address] Cornell. The patient reports a cough and feeling unwell the past few days. She continues on doxycycline and levofloxcacin for the recent MRSA and Pseudomonas positive wound culture. Of note, she arrives today with gauze dressings over her next ulcers as opposed to foam which has been recommended. 01/17/[address] Cornell. The patient's been started on doxycycline and levofloxacin for her wound culture from the last visit that grew MRSA again plus Pseudomonas which is new. She reports having a cough and low grade fever also and the staff report the left neck ulcer dressings as being quite wet. 01/12/[address] Cornell. The patient indicates the neck ulcer pain is a 6-7/ 10 today and states she's been adhering to our dressing change recommendations. She's not currently on antibiotics and does not report fever although she feels a bit under the weather. 01/05/[address] Cornell. The patient complains of 4/10 pain at the site of her remaining chronic neck ulcers. 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 12/18/14 Seen by Finn Felton PA-C. The patient continues to have difficulty securing her dressings and keeping them in place under her tracheostomy collar. She is planning on going deer hunting and will be away from our clinic for over 1 week. 12/12/[address] Cornell. The patient complains of significant right ear pain. Her left neck ulcer culture from the last visit grew MRSA and she's not currently on antibiotics at this time. Of note, the foam that we placed around the tracheostomy tube to prevent abrasion was not in place on the patient's arrival today. 12/08/[address] Cornell. The patient complains of some persistent pain at the site of the left neck ulcer but does not report fever or increased drainage. Of note, she's not changed her dressing since her last visit 3 days ago. 11/28/14 Seen by Finn Felton PA-C. The patient again reports right ear pain without drainage or disturbance in hearing. The dressing on her head wound has stayed in place and her neck dressings lasted less than 24hrs in place. Scalp wound pain has decreased. 11/28/14 Seen by Finn Felton PA-C. The patient has seen her PCP for her right ear issues and he has prescribed her Cefuroxime, which she is currently taking. She has kept her scalp dressing in place and reports continued neck pain and a new neck wound on the left. 11/14/14 Seen by Finn Felton PA-C. The patient's right sided neck wound and scalp wound are much improved today after she has been keeping her head wound covered and has loosened her trach collar. Both wounds are reportedly less painful than before. 11/07/14 Doc Z Surg: patient returns for follow-up of the radiation injury and mechanical abrasions wounds of the neck laterally and anteriorly adjacent to the tracheostomy straps which appear to have been chafing on this sensitive skin in the field of radiation. The padded protective dressing has been utilized since her last visit and shows marked improvement in all of the wounds. Also the scalp abrasions which appear to be fingernail scrapings have also improved markedly after the patient educated to avoid fingernails scratching on the scalp area. Question was raised regarding the possibly poor fitting tracheostomy tube but this appears normal and not problematic to my examination. At present I do not see any need for ENT reevaluation of the [id number] tracheostomy site. 10/26/[address] Cornell. The patient complains of recurrent right ear pain that's constant over the past week but does not report fever, sweats, or drainage from the ear. Her wound cultres from the scalp and neck ulcers grew MRSA on 10/04/14. She continues to report pain at these sites and has been unable to maintain dressings as recommended due to discomfort and the fact the scalp dressing falls off. 10/12/14 Seen by Finn Felton PA-C. The patient reports ear pain after completing HBOT. Her wounds still feel tight around her neck but are otherwise stable and more comfortable with her new foam neck dressings. 10/04/[address] Cornell. The patient feels the pain associated with her neck and scalp ulcers is improved and only noticeable intermittently. She arrived today with foam dressings over the neck ulcers which we started utilizing last week to minimize trauma from the tracheostomy tube harness to the skin and ulcers beneath. 09/27/[address] Cornell. The patient feels her neck ulcers and scalp wounds are less painful however the staff report that the dressing plan we implemented to help prevent abrasion to the neck ulcers does not seem to have been continued after the patient left clinic last week. She's now off of antibiotics and does not report increased drainage. 09/20/[address] Cornell. The patient feels her scalp and neck ulcer pain are improving since she's been on IV daptomycin. She also had a doppler study yesterday that rule out a left arm DVT however she still complains of swelling and discomfort in the arm. 09/06/[address] Cornell. The patient complains of continued pain and drainage associated with her scalp and neck ulcers. She's no longer on antibiotics and recently grew Enterococcus and resistant coag negative Staph from the ulcer sites respectively. 08/30/[address] Cornell. The patient reports continued pain at the neck and scalp ulcers and her scalp wound grew Enterococcus on 08/23/14. She's taking clindamycin and completed a course of azithromycin that were started in the ER due to a recurrent URI. 08/16/14 Seen by Finn Felton PA-C. The patient continues to take Keflex for her scalp wound bacterial infection. She reports it is now more painful and draining more than before. Her neck radiation wounds continue to feel tight. 08/14/14 Seen by Finn Felton PA-C. The patient complains of right ear pain and fullness which started today. She reports feeling like she might have a cold coming on. 08/09/[address] Cornell. The patient complains of persistent pain at the site of the neck ulcers and worsening pain at the scalp ulcer. She's taking doxycycline based on the most recent MSSA wound culture sensitivities from the neck ulcer and does not report any adverse side effects. 07/08/[address] Cornell. The patient feels the neck ulcer pain is improving and she's completed her course of doxycycline that was started last week. She still complains of significant pain a the site of the scalp lesion however. Her wound culture from 07/28 grew MSSA sensitive to doxycycline. 07/26/[address] Cornell. The patient complains of increased pain at the neck ulcers as well as the scalp lesion. She does not report increased drainage, fever, cough, or chills and states her previously reported right ear pain has improved. 07/14/[address] Cornell. The patient reports right ear pain with a sore throat but no fevers or cough. 07/11/14 Seen by Finn Felton PA-C. The patient reports less scalp pain and no drainage from her scalp wound. She continues to report a pulling type pain in and around her neck wounds. 07/04/14 Seen by Finn Felton PA-C. The patient has cut her fingernails short and reports that her scalp wound is hurting and itching less. She reports a new wound over an old abdominal scar today. It has been present for 5 days and she is not sure how it occurred. 06/20/14 The patient feels her neck ulcer pain as well as the scalp lesion pain have improved since starting doxycycline. She continues to apply hydrogel and Xeroform to the neck ulcers to keep them moist. Otherwise she's tolerating HBOT without difficulty and has made significant progress in the healing of the neck ulcers throughout this most recent series of dives. 06/13/14 The patient indicates that her neck ulcers 'feel tight' and she still has some discomfort at the scalp lesions. She also complains of significant pruritis in the area of the scalp lesions. She's been taking taking doxycycline for the past week to treat a MRSA positive culture of the scalp ulcer. 06/06/14 The patient reports continued pain from all of her wounds and frustration that her scalp wound has not healed despite her not scratching it. 05/31/14 The patient's here for HBOT today but complains of new left facial pain over the angle of the mandible that started yesterday. She does not complain of ear pain or an dental or intraoral pain but has been treated in the hospital recently for recurrent pneumonia. She's also been reviewed in the past 3 months by her oncologist and reportedly is cancer free. 05/30/14 The patient does not report increased pain or drainage from her neck wounds nor scalp lesion. 05/18/14 The patient complains of significant pain at the left 3rd finger wound as well as her chronic scalp wound. Otherwise she does not report significant pain nor drainage from the neck wounds. 05/12/14 The patient does not report increased pain or drainage from her neck ulcers nor the wound on the scalp. 05/04/14 The patient reports increased pain at the left neck wound and apparently the barrier dressing slipped down and her guaze became adherent resulting in a skin tear upon removal. Otherwise she continues to complain of pain at both neck wounds and the scalp wound. 05/02/14 The patient was seen today in the HBOT treatment room for complaints of a productive cough. She was recently discharged from the hospital with a diagnosis of tracheobronchitis and is finishing a course of Levaquin. Cough is described as yellow and thick and is difficult to clear from her tracheostomy. 04/21/14 The patient complains of persistent ear pain in the right ear despite using antibiotic drops Rx'd by her ENT provider last week. She does not report drainage or fever. 04/18/14 The patient states her cough is improving and she's still on antibiotics from her recent admission for pneumonia. She does not report increased drainage or pain from the neck ulcers but states her right ear pain has returned. She was seen by ENT who felt the lesion in the external canal was traumatic and she was given an Rx for ear drops which she states she's been using. She also reports recurrence of the painful left scalp wound that was recently healed. 04/11/14 The patient complains of a cough productive of green sputum for the past few days that's particularly worse when lying flat. She indicates that she feels generally unwell and weak and is questioning whether she can tolerate HBOT today. 04/05/14 The patient continues to complain of right ear pain however does not report bleeding from the ear today. Of note, she was reviewed for this problem last week and a shallow ulcer in the right external ear canal was the only finding. 03/30/14 The patient reports continued 5/10 pain from her neck wound which is described as a constant, pulling type pain, which is exacerbated by flexing, extending or rotating her neck. 03/29/14 The patient completed her HBOT dive today and now complains of blood draining from the right ear. She does not report pain now nor during the dive today. 03/23/14 The patient reports increased pain from her medial neck wounds as well as from her scalp wound. The pain is described as a throbbing and sometimes pulling pain that is constant in nature and has no exacerbating factors, nor is it associated with any activity. She does not report fever, chills or increased wound drainage. Additionally the patient reports her [facility] cancer doctors are considering a reconstructive surgical revision of her neck once her current wounds heal. She brings with her today a note from her [facility] doctors on a prescription pad, on which is written Please continue hyperbaric oxygen therapy. 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/14) Ear pain (right side; recurrent) Chronic ulcer (scalp; Enterococcus positive culture on 08/23/14; MRSA positive on 10/04/14) Complaints and Symptoms This information was obtained from the patient Patient complains of: General Notes: I have reviewed and concur with the Review of Systems and Past Family Social History documents completed by the clinician, I have reviewed and concur with the Wound Assessment document completed by the clinician Ear/Nose/Mouth/Throat: Ear Pain Integumentary (Hair/Skin/Nails): Open Sore Musculoskeletal: Deformities, Muscle Weakness Prior Wound History: Bleeding, Drainage, Erythema, Pain Respiratory: Cough Patient denies complaints or symptoms related to: Cardiovascular (Central): Irregular heart beat Constitutional Symptoms (General Health): Chills, Fever, Marked Weight Change Ear/Nose/Mouth/Throat: Hearing Loss / Aid Gastrointestinal (GI): Nausea / Vomiting, Stomach/abdominal pain Hematologic/Lymphatic: Bleeding / Clotting Disorders, Bleeding Tendency Neurological: Loss of Protective Sensation Prior Wound History: Malodor Respiratory: Oxygen Use, Shortness of Breath OBJECTIVE Constitutional BP elevated; Low grade fever; Alert and in no distress. Well developed. Alert. Clean appearing.. Height/Length: 66 in (167.64 cm), Weight: 231.6 lbs (105.27 kgs), BMI: 37.4, Temperature: 99.9 ?F (37.72 ?C), Pulse: 105 bpm, Respiratory Rate: 20 breaths/ min, Blood Pressure: 150/101 mmHg, Pulse Oximetry: 94 %. Vital Signs Notes: Rechecked 156/94 resp 22 o2 90-93 Temp 99.0 Ears, Nose, Mouth, and Throat: No clinically significant hearing loss on informal examination. Neck: Chronic skin contractures stable. Respiratory: No respiratory distress. Even respirations and without use of accessory muscles.. Integumentary (Hair, Skin) Refer to appropriate clinician wound documentation for this visit; anterior neck ulcer extends to subcut and is longer and extending along a chord of scar tissue adjacent and right of the tracheostomy site, stable from preview review. Wound #36 Right, Proximal Neck is an acute Full Thickness Radiation Wound and has received a status of Not Healed. Subsequent wound encounter measurements are 6cm length x 0.8cm width x 0.1cm depth, with an area of 4.8 sq cm and a volume of 0.48 cubic cm. No tunneling has been noted. No sinus tract has been noted. No undermining has been noted. There is a moderate amount of serous drainage noted which has no odor. The patient reports a wound pain of level 7/10. The wound margin is attached. Wound bed has No epithelialization, No eschar, Yes slough, No granulation. The periwound skin texture is normal. The periwound skin moisture is normal. The periwound skin color is normal. The temperature of the periwound skin is WNL. Periwound skin does not exhibit signs or symptoms of infection. Local Pulse is N/A. Neurological: Cranial nerves grossly intact with symmetric function normal by informal observation.. ASSESSMENT Active Problems ICD-10 (Encounter Diagnosis) S11.89XD - Other open wound of other specified part of neck, subsequent encounter (Encounter Diagnosis) L59.8 - Other specified disorders of the skin and subcutaneous tissue related to radiation (Encounter Diagnosis) L98.492 - Non-pressure chronic ulcer of skin of other sites with fat layer exposed (Encounter Diagnosis) R05 - Cough PROCEDURES Wound #36 Wound #36 (Radiation Wound) is located on the right, proximal neck. A skin/ subcutaneous tissue level surgical debridement with a total area debrided of 4.8 sq cm was performed by Duy Cornell MD. Subcutaneous was removed along with devitalized tissue: exudate and slough. The following instrument(s) were used: curette. Pain control was achieved using EMLA lidocaine/prilocaine 2.5%/2.5%. A time out was conducted prior to the start of the procedure. A minimal amount of bleeding was controlled with pressure. The procedure was tolerated well with a pain level of 0 throughout and a pain level of 0 following the procedure. Post Debridement Measurements: 6cm length x 0.8cm width x 0.1cm depth; with an area of 4.8 sq cm and a volume of 0.48 cubic cm; Additional Information Muscle fascia or bone removed and sent to pathology?: No PLAN I've reviewed the clinician's documentation and agree with the evaluation and plan as written. In addition, the patient's ulcer demonstrates evidence of non-viable devitalized tissue which will continue to benefit from sharp debridement to help promote granulation and expedite healing. Also, I've encouraged the patient to try again to see her PCP to address her chronic cough. Electronic Signature(s) Signed By: Date: Duy Cornell MD 11/06/2017 08:53:09 Entered By: Duy Cornell on 11/06/2017 07:24:58
== END ==
PROVIDERS: Visit Provider Internal Medicine
DX: L59.8 Other specified disorders of the skin and subcutaneous tissue related to radiation (principal); S11.89XA Other open wound of other specified part of neck, initial encounter; L98.492 Non-pressure chronic ulcer of skin of other sites with fat layer exposed; R05 Cough
CPT/HCPCS: 11042; 87070; 87075; 87077; 87147; 87186; 87205

== ENCOUNTER 2017-11-05 10:31 | Emergency (ER) | payer OTHER, MEDICAID, SELFPAY ==
[2017-09-21 21:10] VITALS: BMI 32.3
[2017-11-05 10:37] VITALS: BP 177/103; PULSE 91; RESP 18; TEMP 36.7; O2SAT 93
[2017-11-05] MEDS: ALBUTEROL/IPRATROPIUM 3 ML AMPUL INH (11:40)
[2017-11-05 11:43] VITALS: PULSE 87; RESP 18; O2SAT 97
--- NOTE | 2017-11-05 11:43 | PC.NURSE ---
Pt has chronic wound near trach reports seen by wound clinic. Was seen yesterday for same symptoms. No drainage noted on dressing by trach
[2017-11-05 11:46] VITALS: BP 156/82; PULSE 96; RESP 19; O2SAT 94
--- NOTE | 2017-11-05 12:43 | ED.SKABFB ---
HPI - Skin/Abscess/Foreign Bdy General Chief complaint: Skin/Abscess/Foreign Body Stated complaint: fever, flushed Time Seen by Provider: 11/05/17 12:26 Source: patient Mode of arrival: ambulatory Limitations: no limitations History of Present Illness HPI narrative: Patient is a 57-year-old female who presents with low-grade fever and redness on her face. She was seen and evaluated here yesterday she had full workup including blood work chest x-ray and neck CT. She has a chronic trach secondary to laryngeal cancer. Today she feels like her face is red and that she might have a neck infection. She was actually sent from wound care said that her wound looks well. He did not believe it to be infected. She denies any shortness of breath cough chest pain today. She feels like she is warm and she has that ice pack on her face. MD complaint: rash Related Data Home Medications Medication Instructions Recorded Confirmed albuterol sulfate 1 dose INHALATION QIDP PRN #180 01/25/16 09/21/17 docusate sodium 100 mg PO BID #0 01/25/16 09/21/17 ferrous gluconate 324 mg PO QDAY #0 08/28/16 09/21/17 omeprazole 20 mg PO QDAY #0 08/28/16 09/21/17 acetaminophen 650 mg PO Q6HP PRN #0 10/29/16 09/21/17 amitriptyline 25 mg PO HS #0 01/22/17 09/21/17 ascorbic acid (vitamin C) 500 mg PO QDAY #0 06/10/17 09/21/17 fexofenadine 180 mg PO QDAY #0 06/10/17 09/21/17 nystatin 1 dose PO DIRECTED #0 06/10/17 09/21/17 sodium chloride 0.9 % 1 vial QID PRN #0 06/10/17 09/21/17 citalopram 40 mg PO DAILY 09/21/17 09/21/17 estradiol 2 mg PO DAILY 09/21/17 09/21/17 lisinopril 10 mg PO DAILY 09/21/17 09/21/17 tramadol 50 mg PO Q6HP PRN 09/21/17 09/21/17 Previous Rx's Medication Instructions Recorded doxycycline monohydrate 100 mg PO BID #14 cap 11/05/17 Allergies Allergy/AdvReac Type Severity Reaction Status Date / Time hydrocodone Allergy Intermediate RASH/HIVES Verified 09/21/17 16:56 Penicillins Allergy Intermediate RASH/HIVES Unverified 06/17/17 12:06 metronidazole Allergy Mild RASH Unverified 06/17/17 12:06 acetaminophen [ACETAMINOPHEN] Allergy Unknown GI UPSET Unverified 06/17/17 12:06 diphenhydramine Allergy Unknown Unverified 06/17/17 12:06 [DIPHENHYDRAMINE] ibuprofen Allergy Unknown Unverified 06/17/17 12:06 oxycodone [OXYCODONE] Allergy Unknown Unverified 06/17/17 12:06 venom-wasp Allergy Verified 09/21/17 16:57 ranitidine AdvReac Intermediate SOB/DIZZY Unverified 06/17/17 12:06 sulfamethoxazole AdvReac Mild GI UPSET Unverified 06/17/17 12:06 [From Bactrim] trimethoprim [From Bactrim] AdvReac Mild GI UPSET Unverified 06/17/17 12:06 fentanyl [FENTANYL] AdvReac Unknown vomiting Unverified 06/17/17 12:06 ANTACIDS AdvReac Unknown Uncoded 06/17/17 12:06 Review of Systems Review of Systems GENERAL: Denies chills, fatigue, malaise, fever, sweats, travel HEENT: Trach, laryngeal cancer RESPIRATORY: Denies dyspnea, cough, wheezing, hemoptysis, sputum. CARDIOVASCULAR: Denies chest pain, palpitations, orthopnea, edema GASTROINTESTINAL: Denies nausea, vomiting, abdominal pain, diarrhea, constipation, melena. : Denies dysuria, frequency, incontinence, hematuria, urinary retention, flank pain. MUSCULOSKELETAL: Denies weakness, joint pain, or bony pain SKIN: Rash on face, chronic wound NEUROLOGIC: Denies weakness, dizziness, headache, numbness, change in speech, confusion PSYCHIATRIC: No concerning psychosocial issues. 12 point review of systems is negative except for those stated above and HPI All systems reviewed & are unremarkable except as noted in HPI and below [facility] Medical History Tracheobronchitis (Acute) Chronic pain (Acute) Community acquired pneumonia (Acute) Tracheostomy complication (Acute) Otitis media, purulent, acute, with spontaneous rupture of TM (Acute) Laryngeal cancer (Acute) MRSA (methicillin resistant Staphylococcus aureus) (Acute) Social History household members: significant other Smoking Status: Former smoker alcohol intake: former Exam Initial Vital Signs Initial Vital Signs: Vital Signs Temperature 98.1 F 11/05/17 10:37 Pulse Rate 91 H 11/05/17 10:37 Respiratory Rate 18 11/05/17 10:37 Blood Pressure 177/103 H 11/05/17 10:37 Pulse Oximetry 93 11/05/17 10:37 GENERAL: Well-appearing, well-nourished and in no acute distress. HEENT: Head atraumatic,EOMI, pupils reactive NECK: Trach in place of wound appears clean and dry seems to be healing no erythema no gross discharge CARDIOVASCULAR: Regular rate and rhythm without murmurs, rubs or gallops. RESPIRATORY: Breath sounds equal bilaterally, no wheezes rales or rhonchi. ABDOMEN: Soft, nontender. Normoactive bowel sounds all 4 quadrants. No guarding or rebound. EXTREMITIES: Normal range of motion, no clubbing or edema. Neurovascularly intact NEUROLOGICAL: Alert and oriented x4.Normal gait and speech. Cranial nerves II through XII grossly intact. SKIN: Neck wound appears stable. Face is erythematous blanchable no petechiae Course Orders Ordered: Discontinued Medications Albuterol/Ipratropium (Duoneb) 3 ml INH NOW ONE Stop: 11/05/17 11:50 Last Admin: 11/05/17 11:40 Dose: 3 ml Vital Signs - 8 hr 11/05/17 10:37 11/05/17 11:43 11/05/17 11:46 Temperature 98.1 F Pulse Rate 91 H 87 96 H Respiratory Rate 18 18 19 Blood Pressure 177/103 H Blood Pressure [Right Arm] 156/82 H Pulse Oximetry 93 97 94 MDM - Skin/Abscess/Foreign Bdy MDM Narrative Medical decision making narrative: Patient overall does dog toxic or septic. She full workup yesterday of it. Today her biggest complaint seems to be that her face is red. It is difficult for me to tell because she has kept an ice pack on it of the whole time she has been in the emergency department. Discharge Plan Departure Patient Disposition: Home Clinical Impression: Rash, COPD (chronic obstructive pulmonary disease) Discharge Date/Time: 11/05/17 13:43 Interventions: ED Discharge Assessment Last Done: 11/05/17 13:42 Instructions: DI for Rash Activity Restrictions/Additional Instructions: *You have been diagnosed with COPD, rash *What to do: Workup yesterday of x-ray and neck CT and blood work all within normal limits. Rash today may be allergic like reaction try Benadryl. Wound care did not appreciate any infection of you're neck wound today *Continue to take medications as directed Doxycycline twice a day for 7 days *Follow up with your primary care provider in 2-3 days *Return to ER if you should have any new, worsening or concerning symptoms Prescriptions: New doxycycline monohydrate 100 mg capsule 100 mg PO BID Qty: 14 RF: 0 No Action albuterol sulfate 2.5 MG/3 ML solution for nebulization 1 dose Inhalation QIDP PRN (Reason: Shortness Of Breath) Qty: 180 RF: 0 docusate sodium 100 MG capsule 100 mg PO BID Qty: 0 RF: 0 ferrous gluconate 324 MG tablet 324 mg PO QDAY Qty: 0 RF: 0 omeprazole 20 MG capsule,delayed release(DR/EC) 20 mg PO QDAY Qty: 0 RF: 0 acetaminophen 325 MG tablet 650 mg PO Q6HP PRN (Reason: Pain, Mild) Qty: 0 RF: 0 amitriptyline 25 MG tablet 25 mg PO HS Qty: 0 RF: 0 ascorbic acid (vitamin C) 500 MG tablet 500 mg PO QDAY Qty: 0 RF: 0 fexofenadine 180 MG tablet 180 mg PO QDAY Qty: 0 RF: 0 nystatin 100,000 UNIT/1 ML suspension 1 dose PO DIRECTED Qty: 0 RF: 0 sodium chloride 0.9 % 10 ML solution 1 vial QID PRN (Reason: irrigate tracheostomy) Qty: 0 RF: 0 citalopram 40 mg tablet 40 mg PO DAILY RF: 0 estradiol 2 mg tablet 2 mg PO DAILY RF: 0 lisinopril 10 mg tablet 10 mg PO DAILY RF: 0 tramadol 50 MG tablet 50 mg PO Q6HP PRN (Reason: Pain, Moderate) RF: 0 Referrals: Eusebio Hammer MD [Primary Care Provider] -
[2017-11-05 12:56] VITALS: BP 117/63; PULSE 92; O2SAT 93
== END 2017-11-05 13:43 | disposition home or self-care (01) ==
PROVIDERS: Emergency Provider Emergency Medicine; PCP Internal Medicine
DX: J44.9 Chronic obstructive pulmonary disease, unspecified (principal); R21 Rash and other nonspecific skin eruption
CPT/HCPCS: 94640; 99282; 99283

== ENCOUNTER → 2017-11-12 09:39 | Outpatient (CLI) | payer OTHER, MEDICAID, SELFPAY ==
[2017-09-21 21:10] VITALS: BMI 32.3
--- NOTE | 2017-11-12 | OV.WND_ITS ---
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 Allergies Penicillins (Severity: Moderate, Reaction: rash and hives), Vicodin (Severity: Moderate, Reaction: Rash and hives), ibuprofen (Severity: Moderate, Reaction: Rash and hives), Gelusil Antacid and Anti-Gas (Severity: Moderate, Reaction: increase in stomach discomfort), Septra (Severity: Moderate, Reaction: GI upset), Flagyl (Severity: Moderate, Reaction: Rash), Benadryl (Reaction: Rash), ranitidine (Severity: Moderate, Reaction: SOB, dizzy) HPI This information was obtained from the patient 11/12/17. Seen by Dr. Cornell. 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 11/05/17. Seen by Dr. Cornell. The patient reports a persistent productive cough for which she went to the ER recently. She was not placed on antibiotics. She does not report significant pain or drainage from the anterior neck soft tissue radiation ulcer however this tends to become contaminated via her laryngostomy site when she develops a productive cough. 10/29/17. Seen by Dr. Cornell. 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 10/22/17. Seen by Dr. Cornell. The patient reports persistence of a productive cough despite completing a recent course of doxycycline. The sputum tends to contaminate her anterior neck soft tissue ulcer via her laryngectomy stoma. She does not report increased pain or drainage associated with the ulcer however since her last visit. 10/13/17. Seen by Dr. Cornell. The patient does not report increased pain associated with the anterior neck soft tissue radiation ulcer since her previous visit ad she continues on doxycycline for bronchitis. Her dressings have been adjusted to facilitate frequent changing in light of her coughing and presumed contamination of the ulcer via her tracheostomy. 10/09/17. Seen by Dr. Cornell. The patient's now on doxycycline for recurrence of bronchitis. 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 The dressing has been chosen specifically to help prevent abrasion to the irradiated skin caused by the tracheostomy tube strap. 10/02/17. Seen by Dr. Cornell. 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 She does not report significant pain or drainage from the ulcer nor side effects of the antibiotics. The ulcer had deteriorated considerably over the previous 2 weeks and we adjusted dressings to better protect against abrasion caused by her tracheostomy tube and strap. 09/28/17. Seen by Dr. Cornell. The patient continues to report pain associated with the anterior soft tissue radiation neck ulcer and her wound culture from week grew Group A strep, Staph, and diptheroids. She's not currently on antibiotics and we've changed her dressing to better protect against abrasion from the tracheostomy tube and strap. 09/24/17. Seen by Dr. Cornell. The patient does not report increased pain associated with the anterior neck soft tissue radiation ulcer however the nurse feels the ulcer is longer than on her previous visit. 09/17/17. Seen by Dr. Cornell. 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 She has an appointment tomorrow with her PCP to address this problem. Otherwise she does not report increased pain or drainage associated with the ulcer however the nurse reports the ulcer as being larger this week. 09/10/17. Seen by Dr. Cornell. 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 Her culture at the last visit grew Diptherioids and he's applying topical gentamicin with dressing changes which has been adjusted to better protect the site from the abrading ET tube and strap. 09/07/17. Seen by Dr. Cornell. 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 The staff also feels the ulcer's increased in size and she's no long on oral antibiotics that were prescribed recently for a Enterococcus positive wound culture. 08/31/17. Seen by Finn Felton PA-C. The patient reports pain associated with her chronic neck radiation ulcer. 08/24/17. Seen by Dr. Cornell. 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 She continues to apply topical gentamicin to the ulcer to treat the Enterococcus positive wound culture as recommended. 08/14/17. Seen by Dr. Cornell. The patient's been applying topical gentamicin daily to the soft tissue radiation neck ulcer to treat the recent Enterococcus positive wound culture and she's completed her course of levofloxacin. 08/07/17. Seen by Dr. Cornell. 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 She does not report increased pain nor drainage from the site however nor other acute issues today. 07/31/17. Seen by Dr. Cornell. 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 07/24/17. Seen by Dr. Cornell. 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 07/17/17. Seen by Dr. Cornell. 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 Of note, the patient also states she fell from her bed a few days ago resulting in bilateral black eyes. 07/10/2017. Seen by Dr. Cornell. 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 She does not report increased drainage however nor other acute issues. 07/03/17. Seen by Dr. Cornell. 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 06/19/17. Seen by Dr. Cornell. 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 06/09/17. Seen by Dr. Cornell. The patient reports some pain associated with the anterior neck right sided soft tissue radiation ulcer and continues on doxycycline and levofloxacin following a recent admission for a COPD exacerbation. She does not report increased drainage from the ulcer sites and is using Xeroform and Scar-away dressings as recommended. 06/01/17. Seen by Dr. Cornell. The patient was admitted to the hospital for a COPD exacerbation and is now on oral antibiotics following discharge. She reports some ear pain but otherwise no acute issues. Regarding her soft tissue radiation ulcers over the anterior neck she is now using the silicone dressings and Xeroform as recommended and does not report significant pain or drainage.Of note, these are complicated significantly by her tracheostomy tube and attached strap that tends to shear the irradiated skin causing ulcers. 05/25/17. Seen by Dr. Cornell. The patient reports pain associated with the chronic soft tissue radiation neck ulcers. She states her dressings are not on continuously and that she has been wearing her tracheostomy strap for extended periods at home despite our advice to not use it if possible. 05/18/17. Seen by Finn Felton PA-C. The patient reports continued pain from her soft tissue radiation ulcers of the neck. She has finished a once daily antibiotic for a URI but does not recall which antibiotic it was. 05/11/17. Seen by Finn Felton PA-C. The patient reports increased pain and increased drainage from her soft tissue radiation ulcers of the neck. 04/23/17. Similarly Dr. Cornell. The patient does not report increased pain nor drainage associated with the chronic neck soft tissue radiation ulcers since her last visit. 04/16/17. Seen by Finn Felton PA-C. The patient reports that the Radia-gel dressings did not stay in place and the tape used to secure them caused skin tears. 04/09/17. Seen by Finn Felton PA-C. The patient reports no increase in drainage from her radiation ulcers of the neck. 04/02/17. Seen by Finn Felton PA-C. The patient reports her usual amount of pain from her anterior neck ulcers. 03/26/17. Seen by Dr. Cornell. 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 She was discharged recently from [facility] following treatment for an acute URI and is now on levofloxacin. 03/19/17. Seen by Dr. Cornell. The patient does not report significant pain associated with chronic anterior neck soft tssue radiation ulcer since her last visit. 03/12/17. Seen by Dr. Cornell. The patient reports increased pain associated with the anterior neck soft tissue radiation ulcers. Of note, she is reusing her silicon dressings and washing them despite being advised not to do this in the past. She has very limited financial resources that is leading her to do this. 03/04/17. Seen by Dr. Cornell. 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 She continues on doxycycline for a cat bite at the right arm without reported adverse side effects and feels this is improving. There are also no new issues regarding his left neck nonpressure ulcer. 02/24/17. Seen by Dr. Cornell. 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 She was seen in the ER for this and had a CT performed that showed cellulitis but no associated abscess. She was started on levofloxacin at that visit. Also, she was to start doxycycline following her last wound care visit for a cat bite of the right arm however states the antibiotic was not covered by insurance so she has not started this. Otherwise, she does not report fevers or feeling unwell in general. 02/17/17. Seen by Dr. Cornell. The patient reports continued pain associated with the anterior and left lateral neck soft tissue radiation ulcers since her last visit. She is not currently on antibiotics. She also reports a cat bite of the right arm that's been bleeding and painful for the past 2 days since it occurred. 02/10/17. Seen by Finn Felton PA-C. The patient reports a new ulcer on her left neck , in the irradiated area from her previous radiation treatment. 01/16/17. Seen by Dr. Cornell. The patient reports some moderate pain and drainage associated with her chronic neck soft tissue radiation ulcers since her last visit. 01/09/17. Seen by Dr. Cornell. The patient does not report significant pain or increased drainage associated with her chronic neck soft tissue radiation ulcers since her last visit. Her recent wound culture grew ocampo-sensitive Staph aureus and she's applying topical gentamicin as recommended. 01/01/17. Seen by Finn Felton PA-C. The patient reports increased pain and drainage from her chronic neck ulcers which overly an irradiated field. 12/17/16. Seen by Dr. Cornell. The patient does not report significant pain or increased drainage associated with her chronic neck soft tissue radiation ulcers since her last visit. She'll be leaving for a hunting trip and will be gone until December 31. 12/11/16. Seen by Dr. Cornell. The patient does not report significant pain nor drainage associated with chronic neck soft tissue radiation ulcers since her last visit. She completed her course of levofloxacin in the interim and also states that she will not be undergoing reconstructive surgery following discussion with her surgeons. 11/27/16. Seen by Dr. Cornell. The patient reports increased pain and some bloody drainage associated with the anterior neck soft tissue radiation ulcer. She also states that she's had a persistent and productive cough over the past few days. Her most recent wound culture grew MSSA and the prior grew a pansensitive Pseudomonas organism. Staff also report a new ulcer over the left anterior neck. 11/20/16. Seen by Finn Felton PA-C. The patient came in urgently today to be evaluated for increased bleeding and drainage from her neck ulcers which overly radiation damaged tissue. 11/14/16. Seen by Dr. Cornell. The patient continues to apply topical gentamicin to the chronic soft tissue radiation neck ulcers to treat the recent Pseudomonas positive wound culture. She does not report significant pain or increased drainage from these sites. She has an appointment with another surgeon on November 21 to further discuss reconstructive options regarding the narrowing of her stoma and significant soft tissue contractures around the anterior neck. 11/07/16. Seen by Dr. Cornell. The patient reports a new ulcer over the left side of her neck at an area of scarring associated with her chronic soft tissue radiation injury of the neck. She does not report significant pain nor drainage at the site nor from the chronic anterior nonpressure ulcer. Her last culture at that site grew Pseudomonas that is intermediately. 10/31/16. Seen by Dr. Cornell. The patient and her caregiver reports increased drainage associated with the chronic and progressive right anterior neck soft tissue radiation ulcer over the past week. They're having issues in terms of dressing changes and managing increased drainage and the patient also has a persistent and productive cough with mucus being expelled from the tracheostomy site. Of note, the caregiver states that she has been attempting to liaise with Dr. Lopez's office, ENT surgery at , regarding a follow up appointment to discuss reconstructive surgery in hopes of addressing the chronic skin contractures that are contributing heavily to the refractory nature of this neck ulcer. 10/23/16. Seen by Finn Felton PA-C. The patient reports no increase in pain or drainage from her neck ulcer. Her two ulcers have bridged into one ulcer. She has no new news regarding a surgical revision. 10/10/16. Seen by Dr. Cornell.The patient does not report increased pain or drainage associated with the chronic soft tissue neck radiation ulcers since her last visit. Her culture from the last visit grew diphtheroids and she's been applying topical gentamicin as recommended. According to her caregiver they have still not heard back regarding an appointment with her surgeon who is planning a revision for the stenosed tracheostomy site noting the tube is contributing significantly to the ulcer formation. She also does not report significant pain or drainage associated with the superficial abdominal abscess noted at her last visit. 10/03/16. Seen by Dr. Cornell. The patient continues to report some pain associated with the chronic neck soft tissue radiation ulcers. The patient caregiver feels the proximal ulcer continues to increase in size. They have not yet scheduled an appointment for revision surgery for the tracheostomy as was discussed last week. 09/26/16. Seen by Dr. Cornell. The patient continues to report some pain as well as persistent drainage associated with the chronic right neck soft-tissue radiation ulcers. 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 He is planning for a revision surgery to try to address this issue in the near future. 09/19/16. Seen by Dr. Cornell. The patient and her brother continue to report some pain associated with the chronic neck nonpressure ulcers but no increased drainage and they've been changing the silicon dressings as recommended to protect the soft-tissue radiation injured skin and protect against abrasion caused by the tracheosteomy tube. Of note, the patient feels as though the stoma may gradually be tightening as she continues to have some difficulty replacing the tube after taking it out. She also reports some persistent productive coughing and nasal drainage in the evenings and through the night and feels it may be related to allergies. 09/01/16. Seen by Dr. Cornell. The patient's brother who's present today reports that the patient's silicon dressings are being changed less frequently than recommended and in washing them the adherence is deteriorating which may be leading to loss of function in terms of protecting the underlying irradiated skin and neck ulcers. She does not report increased drainage or pain associated with the neck ulcers today. 08/28/16. Seen by Dr. Cornell. The patient removed her tracheostomy tube in clinic today and is having difficulty replacing it. She's a bit anxious at the time of exam but is breathing without distress or audible stridor. Regarding her chronic neck soft tissue radiation ulcers, there's no new issues to report and she's been dressing them as recommended. 08/21/16. Seen by Dr. Cornell. The patient reports continued pain and drainage associated with the chronic soft tissue radiation ulcer along the margin of her tracheostomy stoma. She and her caregiver are dressing it as recommended and she's completed her course of antibiotics those treating the recently cultured MRSA. 08/15/16. Seen by Dr. Cornell. The patient reports increased pain associated with the chronic soft tissue radiation neck ulcers since her last visit and her caregiver reports some thick overlying drainage around the mid-line ulcer adjacent to the tracheostomy stoma. She does not report fevers or feeling unwell however and has been applying topical antibiotic to the ulcers as recommended. 08/08/16. Seen by Dr. Cornell. The patient reports continued pain associated with the chronic anterior neck non-pressure ulcers and they've been applying topical gentamicin to treat the recurrent MRSA positive wound cutlures. She's also wearing her silicon dressing as recommended to help protect the soft tissue radiation injury of the skin from abrasion caused by her tracheostomy tube strap. 08/01/16. Seen by Dr. Cornell. The patient's caregiver reports improvement in terms of pain and drainage associated with the chronic neck ulcers. They've been applying topical gentamicin as recommended for the chronic wound infections. 07/23/16. Seen by Dr. Cornell. The patient's caregiver reports improvement in terms of pain and drainage associated with the chronic neck ulcers overlying the soft tissue radiation injury that follow treatment for her laryngeal cancer years ago. They've been applying topical gentamicin as recommended for the chronic wound infections. 07/09/16. Seen by Finn Felton PA-C. The patient reports she has run out of the silicone strips that were fabricated by [employer] to reduce abrasion from her laryngostomy collar. She is using scar fade strips which are not staying in place. Her neck ulcers continue to be present under the collar. 06/25/16. Seen by Dr. Cornell. The patient's caregiver reports improvement in terms of pain and drainage associated with the chronic neck ulcers. They've been applying topical gentamicin as recommended for the chronic wound infections. 06/11/16. Seen by Dr. Cornell. The patient reports improvement in terms of pain and drainage associated with the chronic neck ulcers. She completed her course of ciprofloxacin which was treating the recurrent ulcer infections and she continues to apply topical gentamicin to the ulcer beds. 06/04/16. Seen by Dr. Cornell. The patient continues to report some pain and minimal drainage associated with the chronic neck ulcers are complicated by underlying soft tissue radiation injury. She was just discharged from the hospital for tracheobronchitis and continues on ciprofloxacin with cultures that have grown Pseudomonas, Staph, and Haemophilus. She does not report adverse side effects from antibiotics nor fevers or feeling unwell today although she continues to have a mild cough. 05/26/16. Seen by Finn Felton PA-C. The patient reports no increase in drainage or pain from her neck ulcers. 05/16/16. Seen by Dr. Cornell. The patient does not report significant pain nor drainage associated with the recurrent neck soft tissue radiation ulcers since her last visit. She's been applying topical gentamicin as recommended and wearing the silicon dressings to protect from the trach tube strap rubbing on the irradiated skin.Also, her wound culture from the last visit grew MSSA. 05/09/16. Seen by Dr. Cornell. The patient feels her recurrent soft tissue radiation ulcers over the mid and left aspects of her neck are painful and draining for the past week. She reports wearing her silicon dressing but does not have it in place all of the time and has been leaving her tracheostomy tube strap off for extended periods during the day to help prevent abrasion. She's been applying topical gentamicin to the ulcers but is not currently on systemic antibiotics. 04/29/16. Seen by Finn Felton PA-C. The patient reports continued compliance with her silicone skin protector that she wears under her collar. She reports improvement in her neck ulcers, however she ran out of supplies a few days ago and now reports worsening of the ulcers. 04/11/16. Seen by Dr. Cornell. The patient reports decreased pain and drainage associated with the chronic neck non-pressure ulcers over the patient week and she's applying topical gentamicin to treat the chronic MRSA wound infection as recommended. She's also using silicon dressings to help better protect the soft tissue radiation injury to the neck which is heavily implicated in the recurrent and refractory nature of the ulcers. 04/04/16. Seen by Dr. Cornell. The patient reports an increase in the size and pain associated with the left neck non-pressure ulcer since her last visit. She's applying gentamicin ointment to all of the ulcers a recommended and using the silicon dressings to help prevent abrasion caused by the trach tube strap. 03/28/16. Seen by Dr. Cornell. The patient reports decreased pain and drainage associated with the chronic neck non-pressure ulcers over the patient week and she's restarted use of the silicon dressings again to protect the irradiated skin that's been breaking down under the trach strap and contributing to the recurrent and refractory nature of the ulcers. 03/21/16. Seen by Dr. Cornell. The patient reports decreased pain and drainage associated with the chronic neck non-pressure ulcers over the patient week and she continues applying topical gentamicin to treat the chronic MRSA wound infection. 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 03/13/15. Seen by Dr. Cornell. The patient reports decreased pain and drainage associated with the chronic neck non-pressure ulcers over the patient week since starting on doxycycline for a recurrent MRSA wound infection. She's now using silicon dressings to protect the irradiated skin over the neck that resulted from radiation therapy treating laryngeal cancer. She does not report adverse effects of the doxycycline and is also applying topical gentamicin daily to the ulcer sites. 03/06/16. Seen by Dr. Cornell. The patient reports persistent pain associated with the recurrent neck non-pressure ulcers and staff report they're larger and are draining based on the dressings. 02/28/16. Seen by Dr. Cornell. The patient returns with new ulcers overlying her soft tissue radiation neck injury that resulted following treatment for laryngeal cancer. She states she ran out of the silicon dressings she uses to protect the area from her trach tube strap and after this the ulcers appeared and are quite painful. Their draining however she does not report fevers. 11/28/15. Seen by Dr. Cornell. 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 11/21/15. Seen by Dr. Cornell. The patient reports some minimal pain associated with the chronic neck soft tissue radiation ulcer since her last visit. She also complains of right ear pain and has asked me to have look in the ear as it feels like there may be a foreign body present. She also reports a mild cough, sore throat, and feeling a bit unwell in general. 11/14/15. Seen by Dr. Cornell. The patient reports moderate pain but no significant drainage associated with the left neck soft tissue radiation ulcer since her last visit. 10/31/15. Seen by Dr. Cornell. The patient reports some pain associated with the left neck soft tissue radiation ulcer but no increased drainage from either ulcer nor pain associated with the middle soft tissue radiation ulcer. Her caregiver notes that they're running out of the silicon dressings and they've become nearly prohibitively expensive. 10/12/15 Seen by Finn Felton PA-C. The patient returns to our clinic after reconstructive scar- revision surgery on her radiation damaged neck. She has wounds that have been left to close by secondary intention and are slow to heal. In addition, her silicone strips that help hold her laringostomy collar in place continue to work well for her. 09/07/[address] Cornell. The patient presents with a new rash over the right neck overlying the soft tissue radiation injury. Of note, her very chronic wounds at the same site were recently healed. She dose not report pain, drainage, or skin breakdown associated with the rash. 08/24/[address] Cornell. The patient does not report pain or drainage associated with the chronic neck soft tissue radiation ulcers over the past few days and she's using the silicon dressings to cover the ulcers. 08/15/[address] Cornell. The patient nor her caregiver report significant pain or drainage from either the left or right neck soft tissue radiation ulcers over the past week and she's received her silicon dressings that are being used to prevent abrasion to the skin caused by her laryngostomy tube strap. 08/09/[address] Cornell. 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 Otherwise the right neck ulcers remain relatively stable and have minimal drainage over the past week. 08/02/[address] Cornell. The patient reports minimal discomfort associated with the chronic neck soft tissue radiation ulcers and her caregiver feels they've improved considerably over the past week while applying gentamicin ointment and using the silicon dressing to prevent abrasion from the trach strap. 07/26/[address] Cornell. The patient reports only moderate discomfort and minimal drainage associate with her remaining soft tissue radiation ulcers of the neck. 07/19/[address] Cornell. The patient's caregiver reports increased drainage on the dressings covering the neck soft tissue radiation ulcers and the patient reports some increased pain at the ulcer sites. They're also running out of the silicon dressings they' ve been using to protect the ulcers from abrasion caused by the overlying trach strap. She does not report any problems regarding the chronic left upper arm wound. 07/12/[address] Cornell. The patient does not report increased pain or drainage associated with her chronic neck soft tissue radiation ulcers and she's been using her silicon wound dressings daily. She feels her ulcers are much less painful since changing to the new dressings. 07/05/[address] Cornell. The patient reports a significant improvement in pain regarding her chronic neck soft tissue radiation ulcers since starting to use adherent silicon dressings to prevent abrasion caused by her trach strap. She does not report significant drainage from the ulcers. 06/22/[address] Cornell. The patient continues to report persistent pain associated with the chronic neck soft tissue radiation ulcers. 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 06/12/15 Seen by Finn Felton PA-C. The patient reports continued pain from her radiation neck ulcers. 06/05/15 Seen by Finn Felton PA-C. The patient reports continued pain and stable drainage from her neck radiation ulcers. She continues to use her favored dressings instead of ones that we have recommended for her. 05/21/15 Seen by Finn Felton PA-C. The patient reports continued pain and no change in drainage from her neck radiation ulcers and her arm and chest wounds. 05/08/15 Seen by Finn Felton PA-C. The patient reports continued pain and stable drainage from her neck radiation ulcers. Flores from [facility] attended part of the appointment to try fitting her for the laryngectomy collar protective prosthetic. 04/25/[address] Cornell. The patient continues to report significant pain associated with the chronic soft tissue radiation neck ulcers and the staff report at least moderate drainage on her dressings today. She does not report fevers or feeling unwell otherwise. 04/11/[address] Cornell. The patient been on levofloxacin and doxycycline for Pseudomonas and MRSA positive wounds cultures taken from her soft tissue radiation ulcers over the neck and around the laryngostomy wound. She still reports pain associated with the ulcers but indicates it's not as bad as last week. 04/05/[address] Cornell. The patient reports persistent pain associated with her neck soft tissue radiation ulcers. She's currently on levofloxacin and doxycycline for the Pseudomonas and MRSA positive culture taken at the last visit and she does not report adverse side effects. 03/28/2015 Seen by Finn Felton PA-C. The patient continues to complain of neck ulcer pain. In addition she again asks today why are they hurting. She has not been compliant with any of our attempts at specialized laryngectomy collar padding or dressings. 03/21/2015 Seen by Finn Felton PA-C. The patient returns with stable 6-7/10 constant pain from the radiation ulcers on her neck. She continues on Doxycycline and has finished her course of prednisone for a URI as prescribed by her PCP. He has recently not been able to keep the Radiagel sheets attached to her neck or tracheostomy collar and has gone back to using Xeroform gauze. 02/19/15 Seen by Finn Felton PA-C. The patient returns for evaluation of her radiation ulcers of the neck. She reports continued pain and her most recent dressings that we have trialed did not stay in place. 02/12/15 Seen by Finn Felton PA-C. The patient reports continued neck pain from her radiation ulcers as well as tightness in her surrounding neck tissues. She reports the pain is exacerbated by rubbing of her tracheostomy tube macias and by any palpation or instrumentation. Drainage has been minimal. 02/05/15 Seen by Finn Fetlon PA-C. The patient presents today with a new wound on her left lateral neck, on her irradiated tissue. This wound is 01/24/[address] Cornell. The patient reports a cough and feeling unwell the past few days. She continues on doxycycline and levofloxcacin for the recent MRSA and Pseudomonas positive wound culture. Of note, she arrives today with gauze dressings over her next ulcers as opposed to foam which has been recommended. 01/17/[address] Cornell. The patient's been started on doxycycline and levofloxacin for her wound culture from the last visit that grew MRSA again plus Pseudomonas which is new. She reports having a cough and low grade fever also and the staff report the left neck ulcer dressings as being quite wet. 01/12/[address] Cornell. The patient indicates the neck ulcer pain is a 6-7/ 10 today and states she's been adhering to our dressing change recommendations. She's not currently on antibiotics and does not report fever although she feels a bit under the weather. 01/05/[address] Cornell. The patient complains of 4/10 pain at the site of her remaining chronic neck ulcers. 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 12/18/14 Seen by Finn Felton PA-C. The patient continues to have difficulty securing her dressings and keeping them in place under her tracheostomy collar. She is planning on going deer hunting and will be away from our clinic for over 1 week. 12/12/[address] Cornell. The patient complains of significant right ear pain. Her left neck ulcer culture from the last visit grew MRSA and she's not currently on antibiotics at this time. Of note, the foam that we placed around the tracheostomy tube to prevent abrasion was not in place on the patient's arrival today. 12/08/[address] Cornell. The patient complains of some persistent pain at the site of the left neck ulcer but does not report fever or increased drainage. Of note, she's not changed her dressing since her last visit 3 days ago. 11/28/14 Seen by Finn Felton PA-C. The patient again reports right ear pain without drainage or disturbance in hearing. The dressing on her head wound has stayed in place and her neck dressings lasted less than 24hrs in place. Scalp wound pain has decreased. 11/28/14 Seen by Finn Felton PA-C. The patient has seen her PCP for her right ear issues and he has prescribed her Cefuroxime, which she is currently taking. She has kept her scalp dressing in place and reports continued neck pain and a new neck wound on the left. 11/14/14 Seen by Finn Felton PA-C. The patient's right sided neck wound and scalp wound are much improved today after she has been keeping her head wound covered and has loosened her trach collar. Both wounds are reportedly less painful than before. 11/07/14 Doc Z Surg: patient returns for follow-up of the radiation injury and mechanical abrasions wounds of the neck laterally and anteriorly adjacent to the tracheostomy straps which appear to have been chafing on this sensitive skin in the field of radiation. The padded protective dressing has been utilized since her last visit and shows marked improvement in all of the wounds. Also the scalp abrasions which appear to be fingernail scrapings have also improved markedly after the patient educated to avoid fingernails scratching on the scalp area. Question was raised regarding the possibly poor fitting tracheostomy tube but this appears normal and not problematic to my examination. At present I do not see any need for ENT reevaluation of the [id number] tracheostomy site. 10/26/[address] Cornell. The patient complains of recurrent right ear pain that's constant over the past week but does not report fever, sweats, or drainage from the ear. Her wound cultres from the scalp and neck ulcers grew MRSA on 10/04/14. She continues to report pain at these sites and has been unable to maintain dressings as recommended due to discomfort and the fact the scalp dressing falls off. 10/12/14 Seen by Finn Felton PA-C. The patient reports ear pain after completing HBOT. Her wounds still feel tight around her neck but are otherwise stable and more comfortable with her new foam neck dressings. 10/04/[address] Cornell. The patient feels the pain associated with her neck and scalp ulcers is improved and only noticeable intermittently. She arrived today with foam dressings over the neck ulcers which we started utilizing last week to minimize trauma from the tracheostomy tube harness to the skin and ulcers beneath. 09/27/[address] Cornell. The patient feels her neck ulcers and scalp wounds are less painful however the staff report that the dressing plan we implemented to help prevent abrasion to the neck ulcers does not seem to have been continued after the patient left clinic last week. She's now off of antibiotics and does not report increased drainage. 09/20/[address] Cornell. The patient feels her scalp and neck ulcer pain are improving since she's been on IV daptomycin. She also had a doppler study yesterday that rule out a left arm DVT however she still complains of swelling and discomfort in the arm. 09/06/[address] Cornell. The patient complains of continued pain and drainage associated with her scalp and neck ulcers. She's no longer on antibiotics and recently grew Enterococcus and resistant coag negative Staph from the ulcer sites respectively. 08/30/[address] Cornell. The patient reports continued pain at the neck and scalp ulcers and her scalp wound grew Enterococcus on 08/23/14. She's taking clindamycin and completed a course of azithromycin that were started in the ER due to a recurrent URI. 08/16/14 Seen by Finn Felton PA-C. The patient continues to take Keflex for her scalp wound bacterial infection. She reports it is now more painful and draining more than before. Her neck radiation wounds continue to feel tight. 08/14/14 Seen by Finn Felton PA-C. The patient complains of right ear pain and fullness which started today. She reports feeling like she might have a cold coming on. 08/09/[address] Cornell. The patient complains of persistent pain at the site of the neck ulcers and worsening pain at the scalp ulcer. She's taking doxycycline based on the most recent MSSA wound culture sensitivities from the neck ulcer and does not report any adverse side effects. 07/08/[address] Cornell. The patient feels the neck ulcer pain is improving and she's completed her course of doxycycline that was started last week. She still complains of significant pain a the site of the scalp lesion however. Her wound culture from 07/28 grew MSSA sensitive to doxycycline. 07/26/[address] Cornell. The patient complains of increased pain at the neck ulcers as well as the scalp lesion. She does not report increased drainage, fever, cough, or chills and states her previously reported right ear pain has improved. 07/14/[address] Cornell. The patient reports right ear pain with a sore throat but no fevers or cough. 07/11/14 Seen by Finn Felton PA-C. The patient reports less scalp pain and no drainage from her scalp wound. She continues to report a pulling type pain in and around her neck wounds. 07/04/14 Seen by Finn Felton PA-C. The patient has cut her fingernails short and reports that her scalp wound is hurting and itching less. She reports a new wound over an old abdominal scar today. It has been present for 5 days and she is not sure how it occurred. 06/20/14 The patient feels her neck ulcer pain as well as the scalp lesion pain have improved since starting doxycycline. She continues to apply hydrogel and Xeroform to the neck ulcers to keep them moist. Otherwise she's tolerating HBOT without difficulty and has made significant progress in the healing of the neck ulcers throughout this most recent series of dives. 06/13/14 The patient indicates that her neck ulcers 'feel tight' and she still has some discomfort at the scalp lesions. She also complains of significant pruritis in the area of the scalp lesions. She's been taking taking doxycycline for the past week to treat a MRSA positive culture of the scalp ulcer. 06/06/14 The patient reports continued pain from all of her wounds and frustration that her scalp wound has not healed despite her not scratching it. 05/31/14 The patient's here for HBOT today but complains of new left facial pain over the angle of the mandible that started yesterday. She does not complain of ear pain or an dental or intraoral pain but has been treated in the hospital recently for recurrent pneumonia. She's also been reviewed in the past 3 months by her oncologist and reportedly is cancer free. 05/30/14 The patient does not report increased pain or drainage from her neck wounds nor scalp lesion. 05/18/14 The patient complains of significant pain at the left 3rd finger wound as well as her chronic scalp wound. Otherwise she does not report significant pain nor drainage from the neck wounds. 05/12/14 The patient does not report increased pain or drainage from her neck ulcers nor the wound on the scalp. 05/04/14 The patient reports increased pain at the left neck wound and apparently the barrier dressing slipped down and her guaze became adherent resulting in a skin tear upon removal. Otherwise she continues to complain of pain at both neck wounds and the scalp wound. 05/02/14 The patient was seen today in the HBOT treatment room for complaints of a productive cough. She was recently discharged from the hospital with a diagnosis of tracheobronchitis and is finishing a course of Levaquin. Cough is described as yellow and thick and is difficult to clear from her tracheostomy. 04/21/14 The patient complains of persistent ear pain in the right ear despite using antibiotic drops Rx'd by her ENT provider last week. She does not report drainage or fever. 04/18/14 The patient states her cough is improving and she's still on antibiotics from her recent admission for pneumonia. She does not report increased drainage or pain from the neck ulcers but states her right ear pain has returned. She was seen by ENT who felt the lesion in the external canal was traumatic and she was given an Rx for ear drops which she states she's been using. She also reports recurrence of the painful left scalp wound that was recently healed. 04/11/14 The patient complains of a cough productive of green sputum for the past few days that's particularly worse when lying flat. She indicates that she feels generally unwell and weak and is questioning whether she can tolerate HBOT today. 04/05/14 The patient continues to complain of right ear pain however does not report bleeding from the ear today. Of note, she was reviewed for this problem last week and a shallow ulcer in the right external ear canal was the only finding. 03/30/14 The patient reports continued 5/10 pain from her neck wound which is described as a constant, pulling type pain, which is exacerbated by flexing, extending or rotating her neck. 03/29/14 The patient completed her HBOT dive today and now complains of blood draining from the right ear. She does not report pain now nor during the dive today. 03/23/14 The patient reports increased pain from her medial neck wounds as well as from her scalp wound. The pain is described as a throbbing and sometimes pulling pain that is constant in nature and has no exacerbating factors, nor is it associated with any activity. She does not report fever, chills or increased wound drainage. Additionally the patient reports her [facility] cancer doctors are considering a reconstructive surgical revision of her neck once her current wounds heal. She brings with her today a note from her [facility] doctors on a prescription pad, on which is written Please continue hyperbaric oxygen therapy. 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/14) Ear pain (right side; recurrent) Chronic ulcer (scalp; Enterococcus positive culture on 08/23/14; MRSA positive on 10/04/14) Complaints and Symptoms This information was obtained from the patient Patient complains of: General Notes: I have reviewed and concur with the Review of Systems and Past Family Social History documents completed by the clinician, I have reviewed and concur with the Wound Assessment document completed by the clinician Ear/Nose/Mouth/Throat: Ear Pain Integumentary (Hair/Skin/Nails): Open Sore Musculoskeletal: Deformities, Muscle Weakness Prior Wound History: Bleeding, Drainage, Erythema, Pain Respiratory: Cough Patient denies complaints or symptoms related to: Cardiovascular (Central): Irregular heart beat Constitutional Symptoms (General Health): Chills, Fever, Marked Weight Change Ear/Nose/Mouth/Throat: Hearing Loss / Aid Gastrointestinal (GI): Nausea / Vomiting, Stomach/abdominal pain Hematologic/Lymphatic: Bleeding / Clotting Disorders, Bleeding Tendency Neurological: Loss of Protective Sensation Prior Wound History: Malodor Respiratory: Oxygen Use, Shortness of Breath OBJECTIVE Constitutional BP elevated; Afebrile; Alert and in no distress. Well developed. Alert. Clean appearing.. Height/Length: 66 in (167.64 cm), Weight: 227 lbs (103.18 kgs), BMI: 36.6, Temperature: 98.3 ?F (36.83 ?C), Pulse: 79 bpm, Respiratory Rate: 20 breaths/min, Blood Pressure: 170/97 mmHg, Pulse Oximetry: 97 %. Respiratory: No respiratory distress. Even respirations and without use of accessory muscles.. Integumentary (Hair, Skin) No periwound erythema, warmth, or significant drainage. No periwound rashes appreciated or noted otherwise.. Refer to appropriate clinician wound documentation for this visit; anterior neck ulcer extends to subcut and is longer and extending along a chord of scar tissue adjacent and right of the tracheostomy site; improved in terms of granulation. Wound #36 Right, Proximal Neck is an acute Full Thickness Radiation Wound and has received a status of Not Healed. Subsequent wound encounter measurements are 6.5cm length x 1.1cm width x 0.1cm depth, with an area of 7.15 sq cm and a volume of 0.715 cubic cm. No tunneling has been noted. No sinus tract has been noted. No undermining has been noted. There is a moderate amount of serous drainage noted which has no odor. The patient reports a wound pain of level 7/10. The wound margin is attached. Wound bed has No epithelialization, No eschar, Yes slough, No granulation. The periwound skin texture is normal. The periwound skin moisture is normal. The periwound skin color is normal. The temperature of the periwound skin is WNL. Periwound skin presents with s/s of infection. Confirmation Description and Treatment Plan is: Confirmed Local, Systemic Antibiotics Prescribed. Local Pulse is N/A. Wound #49 Left, Anterior Neck is a chronic Partial Thickness Radiation Wound and has received a status of Not Healed. Initial wound encounter measurements are 0.4cm length x 0.2cm width x 0.1cm depth, with an area of 0.08 sq cm and a volume of 0.008 cubic cm. No tunneling has been noted. No sinus tract has been noted. No undermining has been noted. There is a small amount of serous drainage noted which has no odor. The patient reports a wound pain of level 7/10. The wound margin is attached. Wound bed has No epithelialization, No eschar, Yes slough, No granulation. The periwound skin texture is normal. The periwound skin moisture is normal. The periwound skin color is normal. The temperature of the periwound skin is WNL. Periwound skin does not exhibit signs or symptoms of infection. Local Pulse is N/A. Neurological: Cranial nerves grossly intact with symmetric function normal by informal observation.. ASSESSMENT Active Problems ICD-10 (Encounter Diagnosis) S11.89XD - Other open wound of other specified part of neck, subsequent encounter (Encounter Diagnosis) L59.8 - Other specified disorders of the skin and subcutaneous tissue related to radiation (Encounter Diagnosis) L98.492 - Non-pressure chronic ulcer of skin of other sites with fat layer exposed (Encounter Diagnosis) B95.2 - Enterococcus as the cause of diseases classified elsewhere PLAN Wound Orders: Wound #36 Right, Proximal Neck Cleanser Cleanse Wound: - Distilled water Dressings Pack wound: - Alginate then cover with a duoderm Change Dressing: - Every two days. Wound #49 Left, Anterior Neck Cleanser Cleanse Wound: - Distilled water Dressings Pack wound: - Alginate then cover with a duoderm Change Dressing: - Every two days. Additional Orders: Follow-Up Appointments Return Appointment: - - one week Other information: If you develop fever, chills, increased pain, drainage, redness or swelling please call our office. If after hours, respond to the ER. Should you experience any significant changes in your wound(s) or have any questions regarding your home care instructions please contact the wound center @ [phone]. If after hours, contact your primary care physician or go to the hospital emergency room. Scribing Attestation I attest, as the nurse, that I scribed these orders for the physician. General Notes: Please picker tender antibiotics and take as prescribed I've reviewed the clinician's documentation and agree with the evaluation and plan as written. In addition, the patient's ulcer demonstrates evidence of non-viable devitalized tissue which will continue to benefit from sharp debridement to help promote granulation and expedite healing. Also, the patient's been advised to start her levofloxacin today. Electronic Signature(s) Signed By: Date: Duy Cornell MD 11/13/2017 09:41:06 Entered By: Duy Cornell on 11/13/2017 09:28:42
== END ==
PROVIDERS: PCP Internal Medicine; Visit Provider Internal Medicine
DX: L59.8 Other specified disorders of the skin and subcutaneous tissue related to radiation (principal); S11.89XA Other open wound of other specified part of neck, initial encounter; L98.492 Non-pressure chronic ulcer of skin of other sites with fat layer exposed; B95.2 Enterococcus as the cause of diseases classified elsewhere
CPT/HCPCS: 11042

== ENCOUNTER → 2017-11-19 10:29 | Outpatient (CLI) | payer OTHER, SELFPAY ==
[2017-09-21 21:10] VITALS: BMI 32.3
== END ==
PROVIDERS: PCP Internal Medicine; Visit Provider Internal Medicine
DX: L59.8 Other specified disorders of the skin and subcutaneous tissue related to radiation (principal); L98.492 Non-pressure chronic ulcer of skin of other sites with fat layer exposed; S11.89XA Other open wound of other specified part of neck, initial encounter
CPT/HCPCS: 11042

== ENCOUNTER → 2017-11-26 10:16 | Outpatient (CLI) | payer OTHER, SELFPAY ==
[2017-09-21 21:10] VITALS: BMI 32.3
--- NOTE | 2017-11-26 | OV.WND_ITS ---
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 Allergies Penicillins (Severity: Moderate, Reaction: rash and hives), Vicodin (Severity: Moderate, Reaction: Rash and hives), ibuprofen (Severity: Moderate, Reaction: Rash and hives), Gelusil Antacid and Anti-Gas (Severity: Moderate, Reaction: increase in stomach discomfort), Septra (Severity: Moderate, Reaction: GI upset), Flagyl (Severity: Moderate, Reaction: Rash), Benadryl (Reaction: Rash), ranitidine (Severity: Moderate, Reaction: SOB, dizzy) HPI This information was obtained from the patient 11/26/17. Seen by Dr. Cornell. 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 11/19/17. Seen by Dr. Cornell. 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 11/12/17. Seen by Dr. Cornell. 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 11/05/17. Seen by Dr. Cornell. The patient reports a persistent productive cough for which she went to the ER recently. She was not placed on antibiotics. She does not report significant pain or drainage from the anterior neck soft tissue radiation ulcer however this tends to become contaminated via her laryngostomy site when she develops a productive cough. 10/29/17. Seen by Dr. Cornell. 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 10/22/17. Seen by Dr. Cornell. The patient reports persistence of a productive cough despite completing a recent course of doxycycline. The sputum tends to contaminate her anterior neck soft tissue ulcer via her laryngectomy stoma. She does not report increased pain or drainage associated with the ulcer however since her last visit. 10/13/17. Seen by Dr. Cornell. The patient does not report increased pain associated with the anterior neck soft tissue radiation ulcer since her previous visit ad she continues on doxycycline for bronchitis. Her dressings have been adjusted to facilitate frequent changing in light of her coughing and presumed contamination of the ulcer via her tracheostomy. 10/09/17. Seen by Dr. Cornell. The patient's now on doxycycline for recurrence of bronchitis. 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 The dressing has been chosen specifically to help prevent abrasion to the irradiated skin caused by the tracheostomy tube strap. 10/02/17. Seen by Dr. Cornell. 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 She does not report significant pain or drainage from the ulcer nor side effects of the antibiotics. The ulcer had deteriorated considerably over the previous 2 weeks and we adjusted dressings to better protect against abrasion caused by her tracheostomy tube and strap. 09/28/17. Seen by Dr. Cornell. The patient continues to report pain associated with the anterior soft tissue radiation neck ulcer and her wound culture from week grew Group A strep, Staph, and diptheroids. She's not currently on antibiotics and we've changed her dressing to better protect against abrasion from the tracheostomy tube and strap. 09/24/17. Seen by Dr. Cornell. The patient does not report increased pain associated with the anterior neck soft tissue radiation ulcer however the nurse feels the ulcer is longer than on her previous visit. 09/17/17. Seen by Dr. Cornell. 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 She has an appointment tomorrow with her PCP to address this problem. Otherwise she does not report increased pain or drainage associated with the ulcer however the nurse reports the ulcer as being larger this week. 09/10/17. Seen by Dr. Cornell. 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 Her culture at the last visit grew Diptherioids and he's applying topical gentamicin with dressing changes which has been adjusted to better protect the site from the abrading ET tube and strap. 09/07/17. Seen by Dr. Cornell. 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 The staff also feels the ulcer's increased in size and she's no long on oral antibiotics that were prescribed recently for a Enterococcus positive wound culture. 08/31/17. Seen by Finn Felton PA-C. The patient reports pain associated with her chronic neck radiation ulcer. 08/24/17. Seen by Dr. Cornell. 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 She continues to apply topical gentamicin to the ulcer to treat the Enterococcus positive wound culture as recommended. 08/14/17. Seen by Dr. Cornell. The patient's been applying topical gentamicin daily to the soft tissue radiation neck ulcer to treat the recent Enterococcus positive wound culture and she's completed her course of levofloxacin. 08/07/17. Seen by Dr. Cornell. 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 She does not report increased pain nor drainage from the site however nor other acute issues today. 07/31/17. Seen by Dr. Cornell. 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 07/24/17. Seen by Dr. Cornell. 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 07/17/17. Seen by Dr. Cornell. 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 Of note, the patient also states she fell from her bed a few days ago resulting in bilateral black eyes. 07/10/2017. Seen by Dr. Cornell. 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 She does not report increased drainage however nor other acute issues. 07/03/17. Seen by Dr. Cornell. 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 06/19/17. Seen by Dr. Cornell. 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 06/09/17. Seen by Dr. Cornell. The patient reports some pain associated with the anterior neck right sided soft tissue radiation ulcer and continues on doxycycline and levofloxacin following a recent admission for a COPD exacerbation. She does not report increased drainage from the ulcer sites and is using Xeroform and Scar-away dressings as recommended. 06/01/17. Seen by Dr. Cornell. The patient was admitted to the hospital for a COPD exacerbation and is now on oral antibiotics following discharge. She reports some ear pain but otherwise no acute issues. Regarding her soft tissue radiation ulcers over the anterior neck she is now using the silicone dressings and Xeroform as recommended and does not report significant pain or drainage.Of note, these are complicated significantly by her tracheostomy tube and attached strap that tends to shear the irradiated skin causing ulcers. 05/25/17. Seen by Dr. Cornell. The patient reports pain associated with the chronic soft tissue radiation neck ulcers. She states her dressings are not on continuously and that she has been wearing her tracheostomy strap for extended periods at home despite our advice to not use it if possible. 05/18/17. Seen by Finn Felton PA-C. The patient reports continued pain from her soft tissue radiation ulcers of the neck. She has finished a once daily antibiotic for a URI but does not recall which antibiotic it was. 05/11/17. Seen by Finn Felton PA-C. The patient reports increased pain and increased drainage from her soft tissue radiation ulcers of the neck. 04/23/17. Similarly Dr. Cornell. The patient does not report increased pain nor drainage associated with the chronic neck soft tissue radiation ulcers since her last visit. 04/16/17. Seen by Finn Felton PA-C. The patient reports that the Radia-gel dressings did not stay in place and the tape used to secure them caused skin tears. 04/09/17. Seen by Finn Felton PA-C. The patient reports no increase in drainage from her radiation ulcers of the neck. 04/02/17. Seen by Finn Felton PA-C. The patient reports her usual amount of pain from her anterior neck ulcers. 03/26/17. Seen by Dr. Cornell. 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 She was discharged recently from [facility] following treatment for an acute URI and is now on levofloxacin. 03/19/17. Seen by Dr. Cornell. The patient does not report significant pain associated with chronic anterior neck soft tssue radiation ulcer since her last visit. 03/12/17. Seen by Dr. Cornell. The patient reports increased pain associated with the anterior neck soft tissue radiation ulcers. Of note, she is reusing her silicon dressings and washing them despite being advised not to do this in the past. She has very limited financial resources that is leading her to do this. 03/04/17. Seen by Dr. Cornell. 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 She continues on doxycycline for a cat bite at the right arm without reported adverse side effects and feels this is improving. There are also no new issues regarding his left neck nonpressure ulcer. 02/24/17. Seen by Dr. Cornell. 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 She was seen in the ER for this and had a CT performed that showed cellulitis but no associated abscess. She was started on levofloxacin at that visit. Also, she was to start doxycycline following her last wound care visit for a cat bite of the right arm however states the antibiotic was not covered by insurance so she has not started this. Otherwise, she does not report fevers or feeling unwell in general. 02/17/17. Seen by Dr. Cornell. The patient reports continued pain associated with the anterior and left lateral neck soft tissue radiation ulcers since her last visit. She is not currently on antibiotics. She also reports a cat bite of the right arm that's been bleeding and painful for the past 2 days since it occurred. 02/10/17. Seen by Finn Felton PA-C. The patient reports a new ulcer on her left neck , in the irradiated area from her previous radiation treatment. 01/16/17. Seen by Dr. Cornell. The patient reports some moderate pain and drainage associated with her chronic neck soft tissue radiation ulcers since her last visit. 01/09/17. Seen by Dr. Cornell. The patient does not report significant pain or increased drainage associated with her chronic neck soft tissue radiation ulcers since her last visit. Her recent wound culture grew ocampo-sensitive Staph aureus and she's applying topical gentamicin as recommended. 01/01/17. Seen by Finn Felton PA-C. The patient reports increased pain and drainage from her chronic neck ulcers which overly an irradiated field. 12/17/16. Seen by Dr. Cornell. The patient does not report significant pain or increased drainage associated with her chronic neck soft tissue radiation ulcers since her last visit. She'll be leaving for a hunting trip and will be gone until December 31. 12/11/16. Seen by Dr. Cornell. The patient does not report significant pain nor drainage associated with chronic neck soft tissue radiation ulcers since her last visit. She completed her course of levofloxacin in the interim and also states that she will not be undergoing reconstructive surgery following discussion with her surgeons. 11/27/16. Seen by Dr. Cornell. The patient reports increased pain and some bloody drainage associated with the anterior neck soft tissue radiation ulcer. She also states that she's had a persistent and productive cough over the past few days. Her most recent wound culture grew MSSA and the prior grew a pansensitive Pseudomonas organism. Staff also report a new ulcer over the left anterior neck. 11/20/16. Seen by Finn Felton PA-C. The patient came in urgently today to be evaluated for increased bleeding and drainage from her neck ulcers which overly radiation damaged tissue. 11/14/16. Seen by Dr. Cornell. The patient continues to apply topical gentamicin to the chronic soft tissue radiation neck ulcers to treat the recent Pseudomonas positive wound culture. She does not report significant pain or increased drainage from these sites. She has an appointment with another surgeon on November 21 to further discuss reconstructive options regarding the narrowing of her stoma and significant soft tissue contractures around the anterior neck. 11/07/16. Seen by Dr. Cornell. The patient reports a new ulcer over the left side of her neck at an area of scarring associated with her chronic soft tissue radiation injury of the neck. She does not report significant pain nor drainage at the site nor from the chronic anterior nonpressure ulcer. Her last culture at that site grew Pseudomonas that is intermediately. 10/31/16. Seen by Dr. Cornell. The patient and her caregiver reports increased drainage associated with the chronic and progressive right anterior neck soft tissue radiation ulcer over the past week. They're having issues in terms of dressing changes and managing increased drainage and the patient also has a persistent and productive cough with mucus being expelled from the tracheostomy site. Of note, the caregiver states that she has been attempting to liaise with Dr. Lopez's office, ENT surgery at , regarding a follow up appointment to discuss reconstructive surgery in hopes of addressing the chronic skin contractures that are contributing heavily to the refractory nature of this neck ulcer. 10/23/16. Seen by Finn Felton PA-C. The patient reports no increase in pain or drainage from her neck ulcer. Her two ulcers have bridged into one ulcer. She has no new news regarding a surgical revision. 10/10/16. Seen by Dr. Cornell.The patient does not report increased pain or drainage associated with the chronic soft tissue neck radiation ulcers since her last visit. Her culture from the last visit grew diphtheroids and she's been applying topical gentamicin as recommended. According to her caregiver they have still not heard back regarding an appointment with her surgeon who is planning a revision for the stenosed tracheostomy site noting the tube is contributing significantly to the ulcer formation. She also does not report significant pain or drainage associated with the superficial abdominal abscess noted at her last visit. 10/03/16. Seen by Dr. Cornell. The patient continues to report some pain associated with the chronic neck soft tissue radiation ulcers. The patient caregiver feels the proximal ulcer continues to increase in size. They have not yet scheduled an appointment for revision surgery for the tracheostomy as was discussed last week. 09/26/16. Seen by Dr. Cornell. The patient continues to report some pain as well as persistent drainage associated with the chronic right neck soft-tissue radiation ulcers. 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 He is planning for a revision surgery to try to address this issue in the near future. 09/19/16. Seen by Dr. Cornell. The patient and her brother continue to report some pain associated with the chronic neck nonpressure ulcers but no increased drainage and they've been changing the silicon dressings as recommended to protect the soft-tissue radiation injured skin and protect against abrasion caused by the tracheosteomy tube. Of note, the patient feels as though the stoma may gradually be tightening as she continues to have some difficulty replacing the tube after taking it out. She also reports some persistent productive coughing and nasal drainage in the evenings and through the night and feels it may be related to allergies. 09/01/16. Seen by Dr. Cornell. The patient's brother who's present today reports that the patient's silicon dressings are being changed less frequently than recommended and in washing them the adherence is deteriorating which may be leading to loss of function in terms of protecting the underlying irradiated skin and neck ulcers. She does not report increased drainage or pain associated with the neck ulcers today. 08/28/16. Seen by Dr. Cornell. The patient removed her tracheostomy tube in clinic today and is having difficulty replacing it. She's a bit anxious at the time of exam but is breathing without distress or audible stridor. Regarding her chronic neck soft tissue radiation ulcers, there's no new issues to report and she's been dressing them as recommended. 08/21/16. Seen by Dr. Cornell. The patient reports continued pain and drainage associated with the chronic soft tissue radiation ulcer along the margin of her tracheostomy stoma. She and her caregiver are dressing it as recommended and she's completed her course of antibiotics those treating the recently cultured MRSA. 08/15/16. Seen by Dr. Cornell. The patient reports increased pain associated with the chronic soft tissue radiation neck ulcers since her last visit and her caregiver reports some thick overlying drainage around the mid-line ulcer adjacent to the tracheostomy stoma. She does not report fevers or feeling unwell however and has been applying topical antibiotic to the ulcers as recommended. 08/08/16. Seen by Dr. Cornell. The patient reports continued pain associated with the chronic anterior neck non-pressure ulcers and they've been applying topical gentamicin to treat the recurrent MRSA positive wound cutlures. She's also wearing her silicon dressing as recommended to help protect the soft tissue radiation injury of the skin from abrasion caused by her tracheostomy tube strap. 08/01/16. Seen by Dr. Cornell. The patient's caregiver reports improvement in terms of pain and drainage associated with the chronic neck ulcers. They've been applying topical gentamicin as recommended for the chronic wound infections. 07/23/16. Seen by Dr. Cornell. The patient's caregiver reports improvement in terms of pain and drainage associated with the chronic neck ulcers overlying the soft tissue radiation injury that follow treatment for her laryngeal cancer years ago. They've been applying topical gentamicin as recommended for the chronic wound infections. 07/09/16. Seen by Finn Felton PA-C. The patient reports she has run out of the silicone strips that were fabricated by [employer] to reduce abrasion from her laryngostomy collar. She is using scar fade strips which are not staying in place. Her neck ulcers continue to be present under the collar. 06/25/16. Seen by Dr. Cornell. The patient's caregiver reports improvement in terms of pain and drainage associated with the chronic neck ulcers. They've been applying topical gentamicin as recommended for the chronic wound infections. 06/11/16. Seen by Dr. Cornell. The patient reports improvement in terms of pain and drainage associated with the chronic neck ulcers. She completed her course of ciprofloxacin which was treating the recurrent ulcer infections and she continues to apply topical gentamicin to the ulcer beds. 06/04/16. Seen by Dr. Cornell. The patient continues to report some pain and minimal drainage associated with the chronic neck ulcers are complicated by underlying soft tissue radiation injury. She was just discharged from the hospital for tracheobronchitis and continues on ciprofloxacin with cultures that have grown Pseudomonas, Staph, and Haemophilus. She does not report adverse side effects from antibiotics nor fevers or feeling unwell today although she continues to have a mild cough. 05/26/16. Seen by Finn Felton PA-C. The patient reports no increase in drainage or pain from her neck ulcers. 05/16/16. Seen by Dr. Cornell. The patient does not report significant pain nor drainage associated with the recurrent neck soft tissue radiation ulcers since her last visit. She's been applying topical gentamicin as recommended and wearing the silicon dressings to protect from the trach tube strap rubbing on the irradiated skin.Also, her wound culture from the last visit grew MSSA. 05/09/16. Seen by Dr. Cornell. The patient feels her recurrent soft tissue radiation ulcers over the mid and left aspects of her neck are painful and draining for the past week. She reports wearing her silicon dressing but does not have it in place all of the time and has been leaving her tracheostomy tube strap off for extended periods during the day to help prevent abrasion. She's been applying topical gentamicin to the ulcers but is not currently on systemic antibiotics. 04/29/16. Seen by Finn Felton PA-C. The patient reports continued compliance with her silicone skin protector that she wears under her collar. She reports improvement in her neck ulcers, however she ran out of supplies a few days ago and now reports worsening of the ulcers. 04/11/16. Seen by Dr. Cornell. The patient reports decreased pain and drainage associated with the chronic neck non-pressure ulcers over the patient week and she's applying topical gentamicin to treat the chronic MRSA wound infection as recommended. She's also using silicon dressings to help better protect the soft tissue radiation injury to the neck which is heavily implicated in the recurrent and refractory nature of the ulcers. 04/04/16. Seen by Dr. Cornell. The patient reports an increase in the size and pain associated with the left neck non-pressure ulcer since her last visit. She's applying gentamicin ointment to all of the ulcers a recommended and using the silicon dressings to help prevent abrasion caused by the trach tube strap. 03/28/16. Seen by Dr. Cornell. The patient reports decreased pain and drainage associated with the chronic neck non-pressure ulcers over the patient week and she's restarted use of the silicon dressings again to protect the irradiated skin that's been breaking down under the trach strap and contributing to the recurrent and refractory nature of the ulcers. 03/21/16. Seen by Dr. Cornell. The patient reports decreased pain and drainage associated with the chronic neck non-pressure ulcers over the patient week and she continues applying topical gentamicin to treat the chronic MRSA wound infection. 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 03/13/15. Seen by Dr. Cornell. The patient reports decreased pain and drainage associated with the chronic neck non-pressure ulcers over the patient week since starting on doxycycline for a recurrent MRSA wound infection. She's now using silicon dressings to protect the irradiated skin over the neck that resulted from radiation therapy treating laryngeal cancer. She does not report adverse effects of the doxycycline and is also applying topical gentamicin daily to the ulcer sites. 03/06/16. Seen by Dr. Cornell. The patient reports persistent pain associated with the recurrent neck non-pressure ulcers and staff report they're larger and are draining based on the dressings. 02/28/16. Seen by Dr. Cornell. The patient returns with new ulcers overlying her soft tissue radiation neck injury that resulted following treatment for laryngeal cancer. She states she ran out of the silicon dressings she uses to protect the area from her trach tube strap and after this the ulcers appeared and are quite painful. Their draining however she does not report fevers. 11/28/15. Seen by Dr. Cornell. 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 11/21/15. Seen by Dr. Cornell. The patient reports some minimal pain associated with the chronic neck soft tissue radiation ulcer since her last visit. She also complains of right ear pain and has asked me to have look in the ear as it feels like there may be a foreign body present. She also reports a mild cough, sore throat, and feeling a bit unwell in general. 11/14/15. Seen by Dr. Cornell. The patient reports moderate pain but no significant drainage associated with the left neck soft tissue radiation ulcer since her last visit. 10/31/15. Seen by Dr. Cornell. The patient reports some pain associated with the left neck soft tissue radiation ulcer but no increased drainage from either ulcer nor pain associated with the middle soft tissue radiation ulcer. Her caregiver notes that they're running out of the silicon dressings and they've become nearly prohibitively expensive. 10/12/15 Seen by Finn Felton PA-C. The patient returns to our clinic after reconstructive scar- revision surgery on her radiation damaged neck. She has wounds that have been left to close by secondary intention and are slow to heal. In addition, her silicone strips that help hold her laringostomy collar in place continue to work well for her. 09/07/[address] Cornell. The patient presents with a new rash over the right neck overlying the soft tissue radiation injury. Of note, her very chronic wounds at the same site were recently healed. She dose not report pain, drainage, or skin breakdown associated with the rash. 08/24/[address] Cornell. The patient does not report pain or drainage associated with the chronic neck soft tissue radiation ulcers over the past few days and she's using the silicon dressings to cover the ulcers. 08/15/[address] Cornell. The patient nor her caregiver report significant pain or drainage from either the left or right neck soft tissue radiation ulcers over the past week and she's received her silicon dressings that are being used to prevent abrasion to the skin caused by her laryngostomy tube strap. 08/09/[address] Cornell. 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 Otherwise the right neck ulcers remain relatively stable and have minimal drainage over the past week. 08/02/[address] Cornell. The patient reports minimal discomfort associated with the chronic neck soft tissue radiation ulcers and her caregiver feels they've improved considerably over the past week while applying gentamicin ointment and using the silicon dressing to prevent abrasion from the trach strap. 07/26/[address] Cornell. The patient reports only moderate discomfort and minimal drainage associate with her remaining soft tissue radiation ulcers of the neck. 07/19/[address] Cornell. The patient's caregiver reports increased drainage on the dressings covering the neck soft tissue radiation ulcers and the patient reports some increased pain at the ulcer sites. They're also running out of the silicon dressings they' ve been using to protect the ulcers from abrasion caused by the overlying trach strap. She does not report any problems regarding the chronic left upper arm wound. 07/12/[address] Cornell. The patient does not report increased pain or drainage associated with her chronic neck soft tissue radiation ulcers and she's been using her silicon wound dressings daily. She feels her ulcers are much less painful since changing to the new dressings. 07/05/[address] Cornell. The patient reports a significant improvement in pain regarding her chronic neck soft tissue radiation ulcers since starting to use adherent silicon dressings to prevent abrasion caused by her trach strap. She does not report significant drainage from the ulcers. 06/22/[address] Cornell. The patient continues to report persistent pain associated with the chronic neck soft tissue radiation ulcers. 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 06/12/15 Seen by Finn Felton PA-C. The patient reports continued pain from her radiation neck ulcers. 06/05/15 Seen by Finn Felton PA-C. The patient reports continued pain and stable drainage from her neck radiation ulcers. She continues to use her favored dressings instead of ones that we have recommended for her. 05/21/15 Seen by Finn Felton PA-C. The patient reports continued pain and no change in drainage from her neck radiation ulcers and her arm and chest wounds. 05/08/15 Seen by Finn Felton PA-C. The patient reports continued pain and stable drainage from her neck radiation ulcers. Flores from [facility] [employer] attended part of the appointment to try fitting her for the laryngectomy collar protective prosthetic. 04/25/[address] Cornell. The patient continues to report significant pain associated with the chronic soft tissue radiation neck ulcers and the staff report at least moderate drainage on her dressings today. She does not report fevers or feeling unwell otherwise. 04/11/[address] Cornell. The patient been on levofloxacin and doxycycline for Pseudomonas and MRSA positive wounds cultures taken from her soft tissue radiation ulcers over the neck and around the laryngostomy wound. She still reports pain associated with the ulcers but indicates it's not as bad as last week. 04/05/[address] Cornell. The patient reports persistent pain associated with her neck soft tissue radiation ulcers. She's currently on levofloxacin and doxycycline for the Pseudomonas and MRSA positive culture taken at the last visit and she does not report adverse side effects. 03/28/2015 Seen by Finn Felton PA-C. The patient continues to complain of neck ulcer pain. In addition she again asks today why are they hurting. She has not been compliant with any of our attempts at specialized laryngectomy collar padding or dressings. 03/21/2015 Seen by Finn Felton PA-C. The patient returns with stable 6-7/10 constant pain from the radiation ulcers on her neck. She continues on Doxycycline and has finished her course of prednisone for a URI as prescribed by her PCP. He has recently not been able to keep the Radiagel sheets attached to her neck or tracheostomy collar and has gone back to using Xeroform gauze. 02/19/15 Seen by Finn Felton PA-C. The patient returns for evaluation of her radiation ulcers of the neck. She reports continued pain and her most recent dressings that we have trialed did not stay in place. 02/12/15 Seen by Finn Felton PA-C. The patient reports continued neck pain from her radiation ulcers as well as tightness in her surrounding neck tissues. She reports the pain is exacerbated by rubbing of her tracheostomy tube macias and by any palpation or instrumentation. Drainage has been minimal. 02/05/15 Seen by Finn Felton PA-C. The patient presents today with a new wound on her left lateral neck, on her irradiated tissue. This wound is 01/24/[address] Cornell. The patient reports a cough and feeling unwell the past few days. She continues on doxycycline and levofloxcacin for the recent MRSA and Pseudomonas positive wound culture. Of note, she arrives today with gauze dressings over her next ulcers as opposed to foam which has been recommended. 01/17/[address] Cornell. The patient's been started on doxycycline and levofloxacin for her wound culture from the last visit that grew MRSA again plus Pseudomonas which is new. She reports having a cough and low grade fever also and the staff report the left neck ulcer dressings as being quite wet. 01/12/[address] Cornell. The patient indicates the neck ulcer pain is a 6-7/ 10 today and states she's been adhering to our dressing change recommendations. She's not currently on antibiotics and does not report fever although she feels a bit under the weather. 01/05/[address] Cornell. The patient complains of 4/10 pain at the site of her remaining chronic neck ulcers. 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 12/18/14 Seen by Finn Felton PA-C. The patient continues to have difficulty securing her dressings and keeping them in place under her tracheostomy collar. She is planning on going deer hunting and will be away from our clinic for over 1 week. 12/12/[address] Cornell. The patient complains of significant right ear pain. Her left neck ulcer culture from the last visit grew MRSA and she's not currently on antibiotics at this time. Of note, the foam that we placed around the tracheostomy tube to prevent abrasion was not in place on the patient's arrival today. 12/08/[address] Cornell. The patient complains of some persistent pain at the site of the left neck ulcer but does not report fever or increased drainage. Of note, she's not changed her dressing since her last visit 3 days ago. 11/28/14 Seen by Finn Felton PA-C. The patient again reports right ear pain without drainage or disturbance in hearing. The dressing on her head wound has stayed in place and her neck dressings lasted less than 24hrs in place. Scalp wound pain has decreased. 11/28/14 Seen by Finn Felton PA-C. The patient has seen her PCP for her right ear issues and he has prescribed her Cefuroxime, which she is currently taking. She has kept her scalp dressing in place and reports continued neck pain and a new neck wound on the left. 11/14/14 Seen by Finn Felton PA-C. The patient's right sided neck wound and scalp wound are much improved today after she has been keeping her head wound covered and has loosened her trach collar. Both wounds are reportedly less painful than before. 11/07/14 Doc Z Surg: patient returns for follow-up of the radiation injury and mechanical abrasions wounds of the neck laterally and anteriorly adjacent to the tracheostomy straps which appear to have been chafing on this sensitive skin in the field of radiation. The padded protective dressing has been utilized since her last visit and shows marked improvement in all of the wounds. Also the scalp abrasions which appear to be fingernail scrapings have also improved markedly after the patient educated to avoid fingernails scratching on the scalp area. Question was raised regarding the possibly poor fitting tracheostomy tube but this appears normal and not problematic to my examination. At present I do not see any need for ENT reevaluation of the [id number] tracheostomy site. 10/26/[address] Cornell. The patient complains of recurrent right ear pain that's constant over the past week but does not report fever, sweats, or drainage from the ear. Her wound cultres from the scalp and neck ulcers grew MRSA on 10/04/14. She continues to report pain at these sites and has been unable to maintain dressings as recommended due to discomfort and the fact the scalp dressing falls off. 10/12/14 Seen by Finn Felton PA-C. The patient reports ear pain after completing HBOT. Her wounds still feel tight around her neck but are otherwise stable and more comfortable with her new foam neck dressings. 10/04/[address] Cornell. The patient feels the pain associated with her neck and scalp ulcers is improved and only noticeable intermittently. She arrived today with foam dressings over the neck ulcers which we started utilizing last week to minimize trauma from the tracheostomy tube harness to the skin and ulcers beneath. 09/27/[address] Cornell. The patient feels her neck ulcers and scalp wounds are less painful however the staff report that the dressing plan we implemented to help prevent abrasion to the neck ulcers does not seem to have been continued after the patient left clinic last week. She's now off of antibiotics and does not report increased drainage. 09/20/[address] Cornell. The patient feels her scalp and neck ulcer pain are improving since she's been on IV daptomycin. She also had a doppler study yesterday that rule out a left arm DVT however she still complains of swelling and discomfort in the arm. 09/06/[address] Cornell. The patient complains of continued pain and drainage associated with her scalp and neck ulcers. She's no longer on antibiotics and recently grew Enterococcus and resistant coag negative Staph from the ulcer sites respectively. 08/30/[address] Conrell. The patient reports continued pain at the neck and scalp ulcers and her scalp wound grew Enterococcus on 08/23/14. She's taking clindamycin and completed a course of azithromycin that were started in the ER due to a recurrent URI. 08/16/14 Seen by Finn Felton PA-C. The patient continues to take Keflex for her scalp wound bacterial infection. She reports it is now more painful and draining more than before. Her neck radiation wounds continue to feel tight. 08/14/14 Seen by Finn Felton PA-C. The patient complains of right ear pain and fullness which started today. She reports feeling like she might have a cold coming on. 08/09/[address] Cornell. The patient complains of persistent pain at the site of the neck ulcers and worsening pain at the scalp ulcer. She's taking doxycycline based on the most recent MSSA wound culture sensitivities from the neck ulcer and does not report any adverse side effects. 07/08/[address] Cornell. The patient feels the neck ulcer pain is improving and she's completed her course of doxycycline that was started last week. She still complains of significant pain a the site of the scalp lesion however. Her wound culture from 07/28 grew MSSA sensitive to doxycycline. 07/26/[address] Cornell. The patient complains of increased pain at the neck ulcers as well as the scalp lesion. She does not report increased drainage, fever, cough, or chills and states her previously reported right ear pain has improved. 07/14/[address] Cornell. The patient reports right ear pain with a sore throat but no fevers or cough. 07/11/14 Seen by Finn Felton PA-C. The patient reports less scalp pain and no drainage from her scalp wound. She continues to report a pulling type pain in and around her neck wounds. 07/04/14 Seen by Finn Felton PA-C. The patient has cut her fingernails short and reports that her scalp wound is hurting and itching less. She reports a new wound over an old abdominal scar today. It has been present for 5 days and she is not sure how it occurred. 06/20/14 The patient feels her neck ulcer pain as well as the scalp lesion pain have improved since starting doxycycline. She continues to apply hydrogel and Xeroform to the neck ulcers to keep them moist. Otherwise she's tolerating HBOT without difficulty and has made significant progress in the healing of the neck ulcers throughout this most recent series of dives. 06/13/14 The patient indicates that her neck ulcers 'feel tight' and she still has some discomfort at the scalp lesions. She also complains of significant pruritis in the area of the scalp lesions. She's been taking taking doxycycline for the past week to treat a MRSA positive culture of the scalp ulcer. 06/06/14 The patient reports continued pain from all of her wounds and frustration that her scalp wound has not healed despite her not scratching it. 05/31/14 The patient's here for HBOT today but complains of new left facial pain over the angle of the mandible that started yesterday. She does not complain of ear pain or an dental or intraoral pain but has been treated in the hospital recently for recurrent pneumonia. She's also been reviewed in the past 3 months by her oncologist and reportedly is cancer free. 05/30/14 The patient does not report increased pain or drainage from her neck wounds nor scalp lesion. 05/18/14 The patient complains of significant pain at the left 3rd finger wound as well as her chronic scalp wound. Otherwise she does not report significant pain nor drainage from the neck wounds. 05/12/14 The patient does not report increased pain or drainage from her neck ulcers nor the wound on the scalp. 05/04/14 The patient reports increased pain at the left neck wound and apparently the barrier dressing slipped down and her guaze became adherent resulting in a skin tear upon removal. Otherwise she continues to complain of pain at both neck wounds and the scalp wound. 05/02/14 The patient was seen today in the HBOT treatment room for complaints of a productive cough. She was recently discharged from the hospital with a diagnosis of tracheobronchitis and is finishing a course of Levaquin. Cough is described as yellow and thick and is difficult to clear from her tracheostomy. 04/21/14 The patient complains of persistent ear pain in the right ear despite using antibiotic drops Rx'd by her ENT provider last week. She does not report drainage or fever. 04/18/14 The patient states her cough is improving and she's still on antibiotics from her recent admission for pneumonia. She does not report increased drainage or pain from the neck ulcers but states her right ear pain has returned. She was seen by ENT who felt the lesion in the external canal was traumatic and she was given an Rx for ear drops which she states she's been using. She also reports recurrence of the painful left scalp wound that was recently healed. 04/11/14 The patient complains of a cough productive of green sputum for the past few days that's particularly worse when lying flat. She indicates that she feels generally unwell and weak and is questioning whether she can tolerate HBOT today. 04/05/14 The patient continues to complain of right ear pain however does not report bleeding from the ear today. Of note, she was reviewed for this problem last week and a shallow ulcer in the right external ear canal was the only finding. 03/30/14 The patient reports continued 5/10 pain from her neck wound which is described as a constant, pulling type pain, which is exacerbated by flexing, extending or rotating her neck. 03/29/14 The patient completed her HBOT dive today and now complains of blood draining from the right ear. She does not report pain now nor during the dive today. 03/23/14 The patient reports increased pain from her medial neck wounds as well as from her scalp wound. The pain is described as a throbbing and sometimes pulling pain that is constant in nature and has no exacerbating factors, nor is it associated with any activity. She does not report fever, chills or increased wound drainage. Additionally the patient reports her [facility] doctors are considering a reconstructive surgical revision of her neck once her current wounds heal. She brings with her today a note from her [facility] doctors on a prescription pad, on which is written Please continue hyperbaric oxygen therapy. 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/14) Ear pain (right side; recurrent) Chronic ulcer (scalp; Enterococcus positive culture on 08/23/14; MRSA positive on 10/04/14) Complaints and Symptoms This information was obtained from the patient Patient complains of: General Notes: I have reviewed and concur with the Review of Systems and Past Family Social History documents completed by the clinician, I have reviewed and concur with the Wound Assessment document completed by the clinician Ear/Nose/Mouth/Throat: Ear Pain Integumentary (Hair/Skin/Nails): Open Sore Musculoskeletal: Deformities, Muscle Weakness Prior Wound History: Bleeding, Drainage, Erythema, Pain Respiratory: Cough Patient denies complaints or symptoms related to: Cardiovascular (Central): Irregular heart beat Constitutional Symptoms (General Health): Chills, Fever, Marked Weight Change Ear/Nose/Mouth/Throat: Hearing Loss / Aid Gastrointestinal (GI): Nausea / Vomiting, Stomach/abdominal pain Hematologic/Lymphatic: Bleeding / Clotting Disorders, Bleeding Tendency Neurological: Loss of Protective Sensation Prior Wound History: Malodor Respiratory: Oxygen Use, Shortness of Breath OBJECTIVE Constitutional BP elevated; Afebrile; Alert and in no distress. Well developed. Alert. Clean appearing.. Height/Length: 66 in (167.64 cm), Weight: 231.5 lbs (105.23 kgs), BMI: 37.4, Temperature: 98.2 ?F (36.78 ?C), Pulse: 84 bpm, Respiratory Rate: 20 breaths/min, Blood Pressure: 167/92 mmHg, Pulse Oximetry: 94 %. Neck: Chronic skin contractures stable. Respiratory: No respiratory distress. Even respirations and without use of accessory muscles.. Integumentary (Hair, Skin) No periwound erythema, warmth, or significant drainage. No periwound rashes appreciated or noted otherwise.. Refer to appropriate clinician wound documentation for this visit; anterior neck ulcer extends to subcut and extends along a chord of scar tissue adjacent and right of the tracheostomy site; improved in terms of appearance of granulation. Wound #36 Right, Proximal Neck is an acute Full Thickness Radiation Wound and has received a status of Not Healed. Subsequent wound encounter measurements are 6.5cm length x 1.3cm width x 0.1cm depth, with an area of 8.45 sq cm and a volume of 0.845 cubic cm. No tunneling has been noted. No sinus tract has been noted. No undermining has been noted. There is a moderate amount of purulent drainage noted which has no odor. The patient reports a wound pain of level 7/10. The wound margin is attached. Wound bed has Yes epithelialization, No eschar, Yes slough, Yes bright red, pink, firm granulation. The periwound skin moisture is normal. The periwound skin exhibited: Induration , Erythema. The periwound skin did not exhibit: Brawny Induration, Edema, Excoriation, Callus, Crepitus, Fluctuance, Friable, Rash, Atrophie Melissa, Cyanosis, Ecchymosis, Hemosiderosis , Pallor, Rubor. The temperature of the periwound skin is WNL. Periwound skin presents with s/s of infection. Confirmation Description and Treatment Plan is: Signs and Symptoms Present. Local Pulse is N/A. Neurological: Cranial nerves grossly intact with symmetric function normal by informal observation.. 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 A skin/ subcutaneous tissue level surgical debridement with a total area debrided of 8.45 sq cm was performed by Duy Cornell MD. Subcutaneous was removed along with devitalized tissue: exudate and slough. The following instrument(s) were used: curette. Pain control was achieved using EMLA lidocaine/prilocaine 2.5%/2.5%. A time out was conducted prior to the start of the procedure. A moderate amount of bleeding was controlled with silver nitrate. The procedure was tolerated well with a pain level of 4 throughout and a pain level of 2 following the procedure. Post Debridement Measurements: 6.5cm length x 1.3cm width x 0.2cm depth; with an area of 8.45 sq cm and a volume of 1.69 cubic cm; Additional Information Muscle fascia or bone removed and sent to pathology?: No PLAN Wound Orders: Wound #36 Right, Proximal Neck Anesthetic Topical Xylocaine to wound bed. Cleanser Cleanse Wound: - Distilled water. Dressings Primary dressing: - Hydrofera blue ready cut to fit next to trach site. Cover and secure with: - Hypafix tape. Change Dressing: - Every 3 days. Additional Orders: Follow-Up Appointments Return Appointment: - - One week. Other information: If you develop fever, chills, increased pain, drainage, redness or swelling please call our office. If after hours, respond to the ER. Should you experience any significant changes in your wound(s) or have any questions regarding your home care instructions please contact the wound center @ [phone]. If after hours, contact your primary care physician or go to the hospital emergency room. Scribing Attestation I attest, as the nurse, that I scribed these orders for the physician. I've reviewed the clinician's documentation and agree with the evaluation and plan as written. In addition, the patient's ulcer demonstrates evidence of non-viable devitalized tissue which will continue to benefit from sharp debridement to help promote granulation and expedite healing. Electronic Signature(s) Signed By: Date: Duy Cornell MD 11/27/2017 06:31:21 Entered By: Duy Cornell on 11/27/2017 06:21:03
== END ==
PROVIDERS: PCP Internal Medicine; Visit Provider Internal Medicine
DX: L59.8 Other specified disorders of the skin and subcutaneous tissue related to radiation (principal); L98.492 Non-pressure chronic ulcer of skin of other sites with fat layer exposed; S11.89XA Other open wound of other specified part of neck, initial encounter
CPT/HCPCS: 11042

== ENCOUNTER → 2017-12-02 10:48 | Outpatient (CLI) | payer OTHER, SELFPAY ==
[2017-09-21 21:10] VITALS: BMI 32.3
--- NOTE | 2017-12-02 | OV.WND_ITS ---
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 Allergies Penicillins (Severity: Moderate, Reaction: rash and hives), Vicodin (Severity: Moderate, Reaction: Rash and hives), ibuprofen (Severity: Moderate, Reaction: Rash and hives), Gelusil Antacid and Anti-Gas (Severity: Moderate, Reaction: increase in stomach discomfort), Septra (Severity: Moderate, Reaction: GI upset), Flagyl (Severity: Moderate, Reaction: Rash), Benadryl (Reaction: Rash), ranitidine (Severity: Moderate, Reaction: SOB, dizzy) HPI This information was obtained from the patient 12/02/17. Seen by Dr. Cornell. 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 11/26/17. Seen by Dr. Cornell. 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 11/19/17. Seen by Dr. Cornell. 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 11/12/17. Seen by Dr. Cornell. 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 11/05/17. Seen by Dr. Cornell. The patient reports a persistent productive cough for which she went to the ER recently. She was not placed on antibiotics. She does not report significant pain or drainage from the anterior neck soft tissue radiation ulcer however this tends to become contaminated via her laryngostomy site when she develops a productive cough. 10/29/17. Seen by Dr. Cornell. 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 10/22/17. Seen by Dr. Cornell. The patient reports persistence of a productive cough despite completing a recent course of doxycycline. The sputum tends to contaminate her anterior neck soft tissue ulcer via her laryngectomy stoma. She does not report increased pain or drainage associated with the ulcer however since her last visit. 10/13/17. Seen by Dr. Cornell. The patient does not report increased pain associated with the anterior neck soft tissue radiation ulcer since her previous visit ad she continues on doxycycline for bronchitis. Her dressings have been adjusted to facilitate frequent changing in light of her coughing and presumed contamination of the ulcer via her tracheostomy. 10/09/17. Seen by Dr. Cornell. The patient's now on doxycycline for recurrence of bronchitis. 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 The dressing has been chosen specifically to help prevent abrasion to the irradiated skin caused by the tracheostomy tube strap. 10/02/17. Seen by Dr. Cornell. 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 She does not report significant pain or drainage from the ulcer nor side effects of the antibiotics. The ulcer had deteriorated considerably over the previous 2 weeks and we adjusted dressings to better protect against abrasion caused by her tracheostomy tube and strap. 09/28/17. Seen by Dr. Cornell. The patient continues to report pain associated with the anterior soft tissue radiation neck ulcer and her wound culture from week grew Group A strep, Staph, and diptheroids. She's not currently on antibiotics and we've changed her dressing to better protect against abrasion from the tracheostomy tube and strap. 09/24/17. Seen by Dr. Cornell. The patient does not report increased pain associated with the anterior neck soft tissue radiation ulcer however the nurse feels the ulcer is longer than on her previous visit. 09/17/17. Seen by Dr. Cornell. 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 She has an appointment tomorrow with her PCP to address this problem. Otherwise she does not report increased pain or drainage associated with the ulcer however the nurse reports the ulcer as being larger this week. 09/10/17. Seen by Dr. Cornell. 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 Her culture at the last visit grew Diptherioids and he's applying topical gentamicin with dressing changes which has been adjusted to better protect the site from the abrading ET tube and strap. 09/07/17. Seen by Dr. Cornell. 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 The staff also feels the ulcer's increased in size and she's no long on oral antibiotics that were prescribed recently for a Enterococcus positive wound culture. 08/31/17. Seen by Finn Felton PA-C. The patient reports pain associated with her chronic neck radiation ulcer. 08/24/17. Seen by Dr. Cornell. 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 She continues to apply topical gentamicin to the ulcer to treat the Enterococcus positive wound culture as recommended. 08/14/17. Seen by Dr. Cornell. The patient's been applying topical gentamicin daily to the soft tissue radiation neck ulcer to treat the recent Enterococcus positive wound culture and she's completed her course of levofloxacin. 08/07/17. Seen by Dr. Cornell. 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 She does not report increased pain nor drainage from the site however nor other acute issues today. 07/31/17. Seen by Dr. Cornell. 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 07/24/17. Seen by Dr. Cornell. 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 07/17/17. Seen by Dr. Cornell. 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 Of note, the patient also states she fell from her bed a few days ago resulting in bilateral black eyes. 07/10/2017. Seen by Dr. Cornell. 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 She does not report increased drainage however nor other acute issues. 07/03/17. Seen by Dr. Cornell. 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 06/19/17. Seen by Dr. Cornell. 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 06/09/17. Seen by Dr. Cornell. The patient reports some pain associated with the anterior neck right sided soft tissue radiation ulcer and continues on doxycycline and levofloxacin following a recent admission for a COPD exacerbation. She does not report increased drainage from the ulcer sites and is using Xeroform and Scar-away dressings as recommended. 06/01/17. Seen by Dr. Cornell. The patient was admitted to the hospital for a COPD exacerbation and is now on oral antibiotics following discharge. She reports some ear pain but otherwise no acute issues. Regarding her soft tissue radiation ulcers over the anterior neck she is now using the silicone dressings and Xeroform as recommended and does not report significant pain or drainage.Of note, these are complicated significantly by her tracheostomy tube and attached strap that tends to shear the irradiated skin causing ulcers. 05/25/17. Seen by Dr. Cornell. The patient reports pain associated with the chronic soft tissue radiation neck ulcers. She states her dressings are not on continuously and that she has been wearing her tracheostomy strap for extended periods at home despite our advice to not use it if possible. 05/18/17. Seen by Finn Felton PA-C. The patient reports continued pain from her soft tissue radiation ulcers of the neck. She has finished a once daily antibiotic for a URI but does not recall which antibiotic it was. 05/11/17. Seen by Finn Felton PA-C. The patient reports increased pain and increased drainage from her soft tissue radiation ulcers of the neck. 04/23/17. Similarly Dr. Cornell. The patient does not report increased pain nor drainage associated with the chronic neck soft tissue radiation ulcers since her last visit. 04/16/17. Seen by Finn Felton PA-C. The patient reports that the Radia-gel dressings did not stay in place and the tape used to secure them caused skin tears. 04/09/17. Seen by Finn Felton PA-C. The patient reports no increase in drainage from her radiation ulcers of the neck. 04/02/17. Seen by Finn Felton PA-C. The patient reports her usual amount of pain from her anterior neck ulcers. 03/26/17. Seen by Dr. Cornell. 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 She was discharged recently from [facility] following treatment for an acute URI and is now on levofloxacin. 03/19/17. Seen by Dr. Cornell. The patient does not report significant pain associated with chronic anterior neck soft tssue radiation ulcer since her last visit. 03/12/17. Seen by Dr. Cornell. The patient reports increased pain associated with the anterior neck soft tissue radiation ulcers. Of note, she is reusing her silicon dressings and washing them despite being advised not to do this in the past. She has very limited financial resources that is leading her to do this. 03/04/17. Seen by Dr. Cornell. 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 She continues on doxycycline for a cat bite at the right arm without reported adverse side effects and feels this is improving. There are also no new issues regarding his left neck nonpressure ulcer. 02/24/17. Seen by Dr. Cornell. 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 She was seen in the ER for this and had a CT performed that showed cellulitis but no associated abscess. She was started on levofloxacin at that visit. Also, she was to start doxycycline following her last wound care visit for a cat bite of the right arm however states the antibiotic was not covered by insurance so she has not started this. Otherwise, she does not report fevers or feeling unwell in general. 02/17/17. Seen by Dr. Cornell. The patient reports continued pain associated with the anterior and left lateral neck soft tissue radiation ulcers since her last visit. She is not currently on antibiotics. She also reports a cat bite of the right arm that's been bleeding and painful for the past 2 days since it occurred. 02/10/17. Seen by Finn Felton PA-C. The patient reports a new ulcer on her left neck , in the irradiated area from her previous radiation treatment. 01/16/17. Seen by Dr. Cornell. The patient reports some moderate pain and drainage associated with her chronic neck soft tissue radiation ulcers since her last visit. 01/09/17. Seen by Dr. Cornell. The patient does not report significant pain or increased drainage associated with her chronic neck soft tissue radiation ulcers since her last visit. Her recent wound culture grew ocampo-sensitive Staph aureus and she's applying topical gentamicin as recommended. 01/01/17. Seen by Finn Felton PA-C. The patient reports increased pain and drainage from her chronic neck ulcers which overly an irradiated field. 12/17/16. Seen by Dr. Cornell. The patient does not report significant pain or increased drainage associated with her chronic neck soft tissue radiation ulcers since her last visit. She'll be leaving for a hunting trip and will be gone until December 31. 12/11/16. Seen by Dr. Cornell. The patient does not report significant pain nor drainage associated with chronic neck soft tissue radiation ulcers since her last visit. She completed her course of levofloxacin in the interim and also states that she will not be undergoing reconstructive surgery following discussion with her surgeons. 11/27/16. Seen by Dr. Cornell. The patient reports increased pain and some bloody drainage associated with the anterior neck soft tissue radiation ulcer. She also states that she's had a persistent and productive cough over the past few days. Her most recent wound culture grew MSSA and the prior grew a pansensitive Pseudomonas organism. Staff also report a new ulcer over the left anterior neck. 11/20/16. Seen by Finn Felton PA-C. The patient came in urgently today to be evaluated for increased bleeding and drainage from her neck ulcers which overly radiation damaged tissue. 11/14/16. Seen by Dr. Cornell. The patient continues to apply topical gentamicin to the chronic soft tissue radiation neck ulcers to treat the recent Pseudomonas positive wound culture. She does not report significant pain or increased drainage from these sites. She has an appointment with another surgeon on November 21 to further discuss reconstructive options regarding the narrowing of her stoma and significant soft tissue contractures around the anterior neck. 11/07/16. Seen by Dr. Cornell. The patient reports a new ulcer over the left side of her neck at an area of scarring associated with her chronic soft tissue radiation injury of the neck. She does not report significant pain nor drainage at the site nor from the chronic anterior nonpressure ulcer. Her last culture at that site grew Pseudomonas that is intermediately. 10/31/16. Seen by Dr. Cornell. The patient and her caregiver reports increased drainage associated with the chronic and progressive right anterior neck soft tissue radiation ulcer over the past week. They're having issues in terms of dressing changes and managing increased drainage and the patient also has a persistent and productive cough with mucus being expelled from the tracheostomy site. Of note, the caregiver states that she has been attempting to liaise with Dr. Lopez's office, ENT surgery at , regarding a follow up appointment to discuss reconstructive surgery in hopes of addressing the chronic skin contractures that are contributing heavily to the refractory nature of this neck ulcer. 10/23/16. Seen by Finn Felton PA-C. The patient reports no increase in pain or drainage from her neck ulcer. Her two ulcers have bridged into one ulcer. She has no new news regarding a surgical revision. 10/10/16. Seen by Dr. Cornell.The patient does not report increased pain or drainage associated with the chronic soft tissue neck radiation ulcers since her last visit. Her culture from the last visit grew diphtheroids and she's been applying topical gentamicin as recommended. According to her caregiver they have still not heard back regarding an appointment with her surgeon who is planning a revision for the stenosed tracheostomy site noting the tube is contributing significantly to the ulcer formation. She also does not report significant pain or drainage associated with the superficial abdominal abscess noted at her last visit. 10/03/16. Seen by Dr. Cornell. The patient continues to report some pain associated with the chronic neck soft tissue radiation ulcers. The patient caregiver feels the proximal ulcer continues to increase in size. They have not yet scheduled an appointment for revision surgery for the tracheostomy as was discussed last week. 09/26/16. Seen by Dr. Cornell. The patient continues to report some pain as well as persistent drainage associated with the chronic right neck soft-tissue radiation ulcers. 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 He is planning for a revision surgery to try to address this issue in the near future. 09/19/16. Seen by Dr. Cornell. The patient and her brother continue to report some pain associated with the chronic neck nonpressure ulcers but no increased drainage and they've been changing the silicon dressings as recommended to protect the soft-tissue radiation injured skin and protect against abrasion caused by the tracheosteomy tube. Of note, the patient feels as though the stoma may gradually be tightening as she continues to have some difficulty replacing the tube after taking it out. She also reports some persistent productive coughing and nasal drainage in the evenings and through the night and feels it may be related to allergies. 09/01/16. Seen by Dr. Cornell. The patient's brother who's present today reports that the patient's silicon dressings are being changed less frequently than recommended and in washing them the adherence is deteriorating which may be leading to loss of function in terms of protecting the underlying irradiated skin and neck ulcers. She does not report increased drainage or pain associated with the neck ulcers today. 08/28/16. Seen by Dr. Cornell. The patient removed her tracheostomy tube in clinic today and is having difficulty replacing it. She's a bit anxious at the time of exam but is breathing without distress or audible stridor. Regarding her chronic neck soft tissue radiation ulcers, there's no new issues to report and she's been dressing them as recommended. 08/21/16. Seen by Dr. Cornell. The patient reports continued pain and drainage associated with the chronic soft tissue radiation ulcer along the margin of her tracheostomy stoma. She and her caregiver are dressing it as recommended and she's completed her course of antibiotics those treating the recently cultured MRSA. 08/15/16. Seen by Dr. Cornell. The patient reports increased pain associated with the chronic soft tissue radiation neck ulcers since her last visit and her caregiver reports some thick overlying drainage around the mid-line ulcer adjacent to the tracheostomy stoma. She does not report fevers or feeling unwell however and has been applying topical antibiotic to the ulcers as recommended. 08/08/16. Seen by Dr. Cornell. The patient reports continued pain associated with the chronic anterior neck non-pressure ulcers and they've been applying topical gentamicin to treat the recurrent MRSA positive wound cutlures. She's also wearing her silicon dressing as recommended to help protect the soft tissue radiation injury of the skin from abrasion caused by her tracheostomy tube strap. 08/01/16. Seen by Dr. Cornell. The patient's caregiver reports improvement in terms of pain and drainage associated with the chronic neck ulcers. They've been applying topical gentamicin as recommended for the chronic wound infections. 07/23/16. Seen by Dr. Cornell. The patient's caregiver reports improvement in terms of pain and drainage associated with the chronic neck ulcers overlying the soft tissue radiation injury that follow treatment for her laryngeal cancer years ago. They've been applying topical gentamicin as recommended for the chronic wound infections. 07/09/16. Seen by Finn Felton PA-C. The patient reports she has run out of the silicone strips that were fabricated by [employer] to reduce abrasion from her laryngostomy collar. She is using scar fade strips which are not staying in place. Her neck ulcers continue to be present under the collar. 06/25/16. Seen by Dr. Cornell. The patient's caregiver reports improvement in terms of pain and drainage associated with the chronic neck ulcers. They've been applying topical gentamicin as recommended for the chronic wound infections. 06/11/16. Seen by Dr. Cornell. The patient reports improvement in terms of pain and drainage associated with the chronic neck ulcers. She completed her course of ciprofloxacin which was treating the recurrent ulcer infections and she continues to apply topical gentamicin to the ulcer beds. 06/04/16. Seen by Dr. Cornell. The patient continues to report some pain and minimal drainage associated with the chronic neck ulcers are complicated by underlying soft tissue radiation injury. She was just discharged from the hospital for tracheobronchitis and continues on ciprofloxacin with cultures that have grown Pseudomonas, Staph, and Haemophilus. She does not report adverse side effects from antibiotics nor fevers or feeling unwell today although she continues to have a mild cough. 05/26/16. Seen by Finn Felton PA-C. The patient reports no increase in drainage or pain from her neck ulcers. 05/16/16. Seen by Dr. Cornell. The patient does not report significant pain nor drainage associated with the recurrent neck soft tissue radiation ulcers since her last visit. She's been applying topical gentamicin as recommended and wearing the silicon dressings to protect from the trach tube strap rubbing on the irradiated skin.Also, her wound culture from the last visit grew MSSA. 05/09/16. Seen by Dr. Cornell. The patient feels her recurrent soft tissue radiation ulcers over the mid and left aspects of her neck are painful and draining for the past week. She reports wearing her silicon dressing but does not have it in place all of the time and has been leaving her tracheostomy tube strap off for extended periods during the day to help prevent abrasion. She's been applying topical gentamicin to the ulcers but is not currently on systemic antibiotics. 04/29/16. Seen by Finn Felton PA-C. The patient reports continued compliance with her silicone skin protector that she wears under her collar. She reports improvement in her neck ulcers, however she ran out of supplies a few days ago and now reports worsening of the ulcers. 04/11/16. Seen by Dr. Cornell. The patient reports decreased pain and drainage associated with the chronic neck non-pressure ulcers over the patient week and she's applying topical gentamicin to treat the chronic MRSA wound infection as recommended. She's also using silicon dressings to help better protect the soft tissue radiation injury to the neck which is heavily implicated in the recurrent and refractory nature of the ulcers. 04/04/16. Seen by Dr. Cornell. The patient reports an increase in the size and pain associated with the left neck non-pressure ulcer since her last visit. She's applying gentamicin ointment to all of the ulcers a recommended and using the silicon dressings to help prevent abrasion caused by the trach tube strap. 03/28/16. Seen by Dr. Cornell. The patient reports decreased pain and drainage associated with the chronic neck non-pressure ulcers over the patient week and she's restarted use of the silicon dressings again to protect the irradiated skin that's been breaking down under the trach strap and contributing to the recurrent and refractory nature of the ulcers. 03/21/16. Seen by Dr. Cornell. The patient reports decreased pain and drainage associated with the chronic neck non-pressure ulcers over the patient week and she continues applying topical gentamicin to treat the chronic MRSA wound infection. 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 03/13/15. Seen by Dr. Cornell. The patient reports decreased pain and drainage associated with the chronic neck non-pressure ulcers over the patient week since starting on doxycycline for a recurrent MRSA wound infection. She's now using silicon dressings to protect the irradiated skin over the neck that resulted from radiation therapy treating laryngeal cancer. She does not report adverse effects of the doxycycline and is also applying topical gentamicin daily to the ulcer sites. 03/06/16. Seen by Dr. Cornell. The patient reports persistent pain associated with the recurrent neck non-pressure ulcers and staff report they're larger and are draining based on the dressings. 02/28/16. Seen by Dr. Cornell. The patient returns with new ulcers overlying her soft tissue radiation neck injury that resulted following treatment for laryngeal cancer. She states she ran out of the silicon dressings she uses to protect the area from her trach tube strap and after this the ulcers appeared and are quite painful. Their draining however she does not report fevers. 11/28/15. Seen by Dr. Cornell. 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 11/21/15. Seen by Dr. Cornell. The patient reports some minimal pain associated with the chronic neck soft tissue radiation ulcer since her last visit. She also complains of right ear pain and has asked me to have look in the ear as it feels like there may be a foreign body present. She also reports a mild cough, sore throat, and feeling a bit unwell in general. 11/14/15. Seen by Dr. Cornell. The patient reports moderate pain but no significant drainage associated with the left neck soft tissue radiation ulcer since her last visit. 10/31/15. Seen by Dr. Cornell. The patient reports some pain associated with the left neck soft tissue radiation ulcer but no increased drainage from either ulcer nor pain associated with the middle soft tissue radiation ulcer. Her caregiver notes that they're running out of the silicon dressings and they've become nearly prohibitively expensive. 10/12/15 Seen by Finn Felton PA-C. The patient returns to our clinic after reconstructive scar- revision surgery on her radiation damaged neck. She has wounds that have been left to close by secondary intention and are slow to heal. In addition, her silicone strips that help hold her laringostomy collar in place continue to work well for her. 09/07/[address] Cornell. The patient presents with a new rash over the right neck overlying the soft tissue radiation injury. Of note, her very chronic wounds at the same site were recently healed. She dose not report pain, drainage, or skin breakdown associated with the rash. 08/24/[address] Cornell. The patient does not report pain or drainage associated with the chronic neck soft tissue radiation ulcers over the past few days and she's using the silicon dressings to cover the ulcers. 08/15/[address] Cornell. The patient nor her caregiver report significant pain or drainage from either the left or right neck soft tissue radiation ulcers over the past week and she's received her silicon dressings that are being used to prevent abrasion to the skin caused by her laryngostomy tube strap. 08/09/[address] Cornell. 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 Otherwise the right neck ulcers remain relatively stable and have minimal drainage over the past week. 08/02/[address] Cornell. The patient reports minimal discomfort associated with the chronic neck soft tissue radiation ulcers and her caregiver feels they've improved considerably over the past week while applying gentamicin ointment and using the silicon dressing to prevent abrasion from the trach strap. 07/26/[address] Cornell. The patient reports only moderate discomfort and minimal drainage associate with her remaining soft tissue radiation ulcers of the neck. 07/19/[address] Cornell. The patient's caregiver reports increased drainage on the dressings covering the neck soft tissue radiation ulcers and the patient reports some increased pain at the ulcer sites. They're also running out of the silicon dressings they' ve been using to protect the ulcers from abrasion caused by the overlying trach strap. She does not report any problems regarding the chronic left upper arm wound. 07/12/[address] Cornell. The patient does not report increased pain or drainage associated with her chronic neck soft tissue radiation ulcers and she's been using her silicon wound dressings daily. She feels her ulcers are much less painful since changing to the new dressings. 07/05/[address] Cornell. The patient reports a significant improvement in pain regarding her chronic neck soft tissue radiation ulcers since starting to use adherent silicon dressings to prevent abrasion caused by her trach strap. She does not report significant drainage from the ulcers. 06/22/[address] Cornell. The patient continues to report persistent pain associated with the chronic neck soft tissue radiation ulcers. 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 06/12/15 Seen by Finn Felton PA-C. The patient reports continued pain from her radiation neck ulcers. 06/05/15 Seen by Finn Felton PA-C. The patient reports continued pain and stable drainage from her neck radiation ulcers. She continues to use her favored dressings instead of ones that we have recommended for her. 05/21/15 Seen by Finn Felton PA-C. The patient reports continued pain and no change in drainage from her neck radiation ulcers and her arm and chest wounds. 05/08/15 Seen by Finn Felton PA-C. The patient reports continued pain and stable drainage from her neck radiation ulcers. Flores from [facility] attended part of the appointment to try fitting her for the laryngectomy collar protective prosthetic. 04/25/[address] Cornell. The patient continues to report significant pain associated with the chronic soft tissue radiation neck ulcers and the staff report at least moderate drainage on her dressings today. She does not report fevers or feeling unwell otherwise. 04/11/[address] Cornell. The patient been on levofloxacin and doxycycline for Pseudomonas and MRSA positive wounds cultures taken from her soft tissue radiation ulcers over the neck and around the laryngostomy wound. She still reports pain associated with the ulcers but indicates it's not as bad as last week. 04/05/[address] Cornell. The patient reports persistent pain associated with her neck soft tissue radiation ulcers. She's currently on levofloxacin and doxycycline for the Pseudomonas and MRSA positive culture taken at the last visit and she does not report adverse side effects. 03/28/2015 Seen by Finn Felton PA-C. The patient continues to complain of neck ulcer pain. In addition she again asks today why are they hurting. She has not been compliant with any of our attempts at specialized laryngectomy collar padding or dressings. 03/21/2015 Seen by Finn Felton PA-C. The patient returns with stable 6-7/10 constant pain from the radiation ulcers on her neck. She continues on Doxycycline and has finished her course of prednisone for a URI as prescribed by her PCP. He has recently not been able to keep the Radiagel sheets attached to her neck or tracheostomy collar and has gone back to using Xeroform gauze. 02/19/15 Seen by Finn Felton PA-C. The patient returns for evaluation of her radiation ulcers of the neck. She reports continued pain and her most recent dressings that we have trialed did not stay in place. 02/12/15 Seen by Finn Felton PA-C. The patient reports continued neck pain from her radiation ulcers as well as tightness in her surrounding neck tissues. She reports the pain is exacerbated by rubbing of her tracheostomy tube macias and by any palpation or instrumentation. Drainage has been minimal. 02/05/15 Seen by Finn Felton PA-C. The patient presents today with a new wound on her left lateral neck, on her irradiated tissue. This wound is 01/24/[address] Cornell. The patient reports a cough and feeling unwell the past few days. She continues on doxycycline and levofloxcacin for the recent MRSA and Pseudomonas positive wound culture. Of note, she arrives today with gauze dressings over her next ulcers as opposed to foam which has been recommended. 01/17/[address] Cornell. The patient's been started on doxycycline and levofloxacin for her wound culture from the last visit that grew MRSA again plus Pseudomonas which is new. She reports having a cough and low grade fever also and the staff report the left neck ulcer dressings as being quite wet. 01/12/[address] Cornell. The patient indicates the neck ulcer pain is a 6-7/ 10 today and states she's been adhering to our dressing change recommendations. She's not currently on antibiotics and does not report fever although she feels a bit under the weather. 01/05/[address] Cornell. The patient complains of 4/10 pain at the site of her remaining chronic neck ulcers. 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 12/18/14 Seen by Finn Felton PA-C. The patient continues to have difficulty securing her dressings and keeping them in place under her tracheostomy collar. She is planning on going deer hunting and will be away from our clinic for over 1 week. 12/12/[address] Cornell. The patient complains of significant right ear pain. Her left neck ulcer culture from the last visit grew MRSA and she's not currently on antibiotics at this time. Of note, the foam that we placed around the tracheostomy tube to prevent abrasion was not in place on the patient's arrival today. 12/08/[address] Cornell. The patient complains of some persistent pain at the site of the left neck ulcer but does not report fever or increased drainage. Of note, she's not changed her dressing since her last visit 3 days ago. 11/28/14 Seen by Finn Felton PA-C. The patient again reports right ear pain without drainage or disturbance in hearing. The dressing on her head wound has stayed in place and her neck dressings lasted less than 24hrs in place. Scalp wound pain has decreased. 11/28/14 Seen by Finn Felton PA-C. The patient has seen her PCP for her right ear issues and he has prescribed her Cefuroxime, which she is currently taking. She has kept her scalp dressing in place and reports continued neck pain and a new neck wound on the left. 11/14/14 Seen by Finn Felton PA-C. The patient's right sided neck wound and scalp wound are much improved today after she has been keeping her head wound covered and has loosened her trach collar. Both wounds are reportedly less painful than before. 11/07/14 Doc Z Surg: patient returns for follow-up of the radiation injury and mechanical abrasions wounds of the neck laterally and anteriorly adjacent to the tracheostomy straps which appear to have been chafing on this sensitive skin in the field of radiation. The padded protective dressing has been utilized since her last visit and shows marked improvement in all of the wounds. Also the scalp abrasions which appear to be fingernail scrapings have also improved markedly after the patient educated to avoid fingernails scratching on the scalp area. Question was raised regarding the possibly poor fitting tracheostomy tube but this appears normal and not problematic to my examination. At present I do not see any need for ENT reevaluation of the [id number] tracheostomy site. 10/26/[address] Cornell. The patient complains of recurrent right ear pain that's constant over the past week but does not report fever, sweats, or drainage from the ear. Her wound cultres from the scalp and neck ulcers grew MRSA on 10/04/14. She continues to report pain at these sites and has been unable to maintain dressings as recommended due to discomfort and the fact the scalp dressing falls off. 10/12/14 Seen by Finn Felton PA-C. The patient reports ear pain after completing HBOT. Her wounds still feel tight around her neck but are otherwise stable and more comfortable with her new foam neck dressings. 10/04/[address] Cornell. The patient feels the pain associated with her neck and scalp ulcers is improved and only noticeable intermittently. She arrived today with foam dressings over the neck ulcers which we started utilizing last week to minimize trauma from the tracheostomy tube harness to the skin and ulcers beneath. 09/27/[address] Cornell. The patient feels her neck ulcers and scalp wounds are less painful however the staff report that the dressing plan we implemented to help prevent abrasion to the neck ulcers does not seem to have been continued after the patient left clinic last week. She's now off of antibiotics and does not report increased drainage. 09/20/[address] Cornell. The patient feels her scalp and neck ulcer pain are improving since she's been on IV daptomycin. She also had a doppler study yesterday that rule out a left arm DVT however she still complains of swelling and discomfort in the arm. 09/06/[address] Cornell. The patient complains of continued pain and drainage associated with her scalp and neck ulcers. She's no longer on antibiotics and recently grew Enterococcus and resistant coag negative Staph from the ulcer sites respectively. 08/30/[address] Cornell. The patient reports continued pain at the neck and scalp ulcers and her scalp wound grew Enterococcus on 08/23/14. She's taking clindamycin and completed a course of azithromycin that were started in the ER due to a recurrent URI. 08/16/14 Seen by Finn Felton PA-C. The patient continues to take Keflex for her scalp wound bacterial infection. She reports it is now more painful and draining more than before. Her neck radiation wounds continue to feel tight. 08/14/14 Seen by Finn Felton PA-C. The patient complains of right ear pain and fullness which started today. She reports feeling like she might have a cold coming on. 08/09/[address] Cornell. The patient complains of persistent pain at the site of the neck ulcers and worsening pain at the scalp ulcer. She's taking doxycycline based on the most recent MSSA wound culture sensitivities from the neck ulcer and does not report any adverse side effects. 07/08/[address] Cornell. The patient feels the neck ulcer pain is improving and she's completed her course of doxycycline that was started last week. She still complains of significant pain a the site of the scalp lesion however. Her wound culture from 07/28 grew MSSA sensitive to doxycycline. 07/26/[address] Cornell. The patient complains of increased pain at the neck ulcers as well as the scalp lesion. She does not report increased drainage, fever, cough, or chills and states her previously reported right ear pain has improved. 07/14/[address] Cornell. The patient reports right ear pain with a sore throat but no fevers or cough. 07/11/14 Seen by Finn Felton PA-C. The patient reports less scalp pain and no drainage from her scalp wound. She continues to report a pulling type pain in and around her neck wounds. 07/04/14 Seen by Finn Felton PA-C. The patient has cut her fingernails short and reports that her scalp wound is hurting and itching less. She reports a new wound over an old abdominal scar today. It has been present for 5 days and she is not sure how it occurred. 06/20/14 The patient feels her neck ulcer pain as well as the scalp lesion pain have improved since starting doxycycline. She continues to apply hydrogel and Xeroform to the neck ulcers to keep them moist. Otherwise she's tolerating HBOT without difficulty and has made significant progress in the healing of the neck ulcers throughout this most recent series of dives. 06/13/14 The patient indicates that her neck ulcers 'feel tight' and she still has some discomfort at the scalp lesions. She also complains of significant pruritis in the area of the scalp lesions. She's been taking taking doxycycline for the past week to treat a MRSA positive culture of the scalp ulcer. 06/06/14 The patient reports continued pain from all of her wounds and frustration that her scalp wound has not healed despite her not scratching it. 05/31/14 The patient's here for HBOT today but complains of new left facial pain over the angle of the mandible that started yesterday. She does not complain of ear pain or an dental or intraoral pain but has been treated in the hospital recently for recurrent pneumonia. She's also been reviewed in the past 3 months by her oncologist and reportedly is cancer free. 05/30/14 The patient does not report increased pain or drainage from her neck wounds nor scalp lesion. 05/18/14 The patient complains of significant pain at the left 3rd finger wound as well as her chronic scalp wound. Otherwise she does not report significant pain nor drainage from the neck wounds. 05/12/14 The patient does not report increased pain or drainage from her neck ulcers nor the wound on the scalp. 05/04/14 The patient reports increased pain at the left neck wound and apparently the barrier dressing slipped down and her guaze became adherent resulting in a skin tear upon removal. Otherwise she continues to complain of pain at both neck wounds and the scalp wound. 05/02/14 The patient was seen today in the HBOT treatment room for complaints of a productive cough. She was recently discharged from the hospital with a diagnosis of tracheobronchitis and is finishing a course of Levaquin. Cough is described as yellow and thick and is difficult to clear from her tracheostomy. 04/21/14 The patient complains of persistent ear pain in the right ear despite using antibiotic drops Rx'd by her ENT provider last week. She does not report drainage or fever. 04/18/14 The patient states her cough is improving and she's still on antibiotics from her recent admission for pneumonia. She does not report increased drainage or pain from the neck ulcers but states her right ear pain has returned. She was seen by ENT who felt the lesion in the external canal was traumatic and she was given an Rx for ear drops which she states she's been using. She also reports recurrence of the painful left scalp wound that was recently healed. 04/11/14 The patient complains of a cough productive of green sputum for the past few days that's particularly worse when lying flat. She indicates that she feels generally unwell and weak and is questioning whether she can tolerate HBOT today. 04/05/14 The patient continues to complain of right ear pain however does not report bleeding from the ear today. Of note, she was reviewed for this problem last week and a shallow ulcer in the right external ear canal was the only finding. 03/30/14 The patient reports continued 5/10 pain from her neck wound which is described as a constant, pulling type pain, which is exacerbated by flexing, extending or rotating her neck. 03/29/14 The patient completed her HBOT dive today and now complains of blood draining from the right ear. She does not report pain now nor during the dive today. 03/23/14 The patient reports increased pain from her medial neck wounds as well as from her scalp wound. The pain is described as a throbbing and sometimes pulling pain that is constant in nature and has no exacerbating factors, nor is it associated with any activity. She does not report fever, chills or increased wound drainage. Additionally the patient reports her [facility] doctors are considering a reconstructive surgical revision of her neck once her current wounds heal. She brings with her today a note from her [facility] doctors on a prescription pad, on which is written Please continue hyperbaric oxygen therapy. 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/14) Ear pain (right side; recurrent) Chronic ulcer (scalp; Enterococcus positive culture on 08/23/14; MRSA positive on 10/04/14) Surgical History This information was obtained from the patient Patient has a surgical history of: Total abdominal hysterectomy with BSO (04/1992) Colon biopsy (11/1997) Lipoma in right axilla (07/1998) Appendectomy (1992) Laryngopharynectomy - 08/14/2009 All teeth extracted Left Myringotomy - 07/22/2011 Fibrin Removal on neck Complaints and Symptoms This information was obtained from the patient Patient complains of: General Notes: I have reviewed and concur with the Review of Systems and Past Family Social History documents completed by the clinician, I have reviewed and concur with the Wound Assessment document completed by the clinician Ear/Nose/Mouth/Throat: Ear Pain Integumentary (Hair/Skin/Nails): Open Sore Musculoskeletal: Deformities, Muscle Weakness Prior Wound History: Bleeding, Drainage, Erythema, Pain Respiratory: Cough Patient denies complaints or symptoms related to: Cardiovascular (Central): Irregular heart beat Constitutional Symptoms (General Health): Chills, Fever, Marked Weight Change Ear/Nose/Mouth/Throat: Hearing Loss / Aid Gastrointestinal (GI): Nausea / Vomiting, Stomach/abdominal pain Hematologic/Lymphatic: Bleeding / Clotting Disorders, Bleeding Tendency Neurological: Loss of Protective Sensation Prior Wound History: Malodor Respiratory: Oxygen Use, Shortness of Breath Additional Information Does patient have a history of Cancer? Yes? Complete all questions.: Yes Location of Cancer: Neck Patient underwent Radiation Treatment? If yes, answer question below.: Yes OBJECTIVE Constitutional BP elevated; Afebrile; Alert and in no distress. Well developed. Alert. Clean appearing.. Height/Length: 66 in (167.64 cm), Weight: 232.1 lbs (105.5 kgs), BMI: 37.5, Temperature: 98.1 ?F (36.72 ?C), Pulse: 75 bpm, Respiratory Rate: 18 breaths/min, Blood Pressure: 162/94 mmHg, Pulse Oximetry: 94 %. Neck: Chronic skin contractures stable. Respiratory: No respiratory distress. Even respirations and without use of accessory muscles.. Integumentary (Hair, Skin) Refer to appropriate clinician wound documentation for this visit; anterior neck ulcer extends to subcut and extends along a chord of scar tissue adjacent and right of the tracheostomy site; improved in terms of appearance of granulation. Wound #36 Right, Proximal Neck is an acute Full Thickness Radiation Wound and has received a status of Not Healed. Subsequent wound encounter measurements are 7cm length x 1.2cm width x 0.1cm depth, with an area of 8.4 sq cm and a volume of 0.84 cubic cm. No tunneling has been noted. No sinus tract has been noted. No undermining has been noted. There is a moderate amount of serosanguineous drainage noted which has no odor. The patient reports a wound pain of level 7/10. The wound margin is attached. Wound bed has Yes epithelialization, No eschar, Yes slough, Yes bright red, pink, firm granulation. The periwound skin moisture is normal. The periwound skin exhibited: Induration , Erythema. The periwound skin did not exhibit: Brawny Induration, Edema, Excoriation, Callus, Crepitus, Fluctuance, Friable, Rash, Atrophie [place], Cyanosis, Ecchymosis, Hemosiderosis , Pallor, Rubor. The temperature of the periwound skin is WNL. Periwound skin presents with s/s of infection. Confirmation Description and Treatment Plan is: Signs and Symptoms Present. Local Pulse is N/A. 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 A skin/ subcutaneous tissue level surgical debridement with a total area debrided of 9.1 sq cm was performed by Duy Cornell MD. Subcutaneous was removed along with devitalized tissue: slough. The following instrument(s) were used: curette. Pain control was achieved using 4% [place]. A time out was conducted prior to the start of the procedure. A minimal amount of bleeding was controlled with n/a. The procedure was tolerated well with a pain level of 0 throughout and a pain level of 0 following the procedure. Post Debridement Measurements: 7cm length x 1.3cm width x 0.1cm depth; with an area of 9.1 sq cm and a volume of 0.91 cubic cm; Additional Information Muscle fascia or bone removed and sent to pathology?: No PLAN Wound Orders: Wound #36 Right, Proximal Neck Anesthetic Topical Xylocaine to wound bed. Cleanser Cleanse Wound: - Distilled water. Dressings Primary dressing: - Adaptic cut to cover. Cover and secure with: - Hydrofera blue ready cut to fit next to trach site, secured with hypafix tape. Change Dressing: - Every 3 days. Additional Orders: Follow-Up Appointments Return Appointment: - - One week. Other information: If you develop fever, chills, increased pain, drainage, redness or swelling please call our office. If after hours, respond to the ER. Should you experience any significant changes in your wound(s) or have any questions regarding your home care instructions please contact the wound center @ [phone]. If after hours, contact your primary care physician or go to the hospital emergency room. Scribing Attestation I attest, as the nurse, that I scribed these orders for the physician. Laboratory: Culture Wound General Notes: Will call with culture results if any oral antibiotics are required. I've reviewed the clinician's documentation and agree with the evaluation and plan as written. In addition, the patient's ulcer demonstrates evidence of non-viable devitalized tissue which will continue to benefit from sharp debridement to help promote granulation and expedite healing. Electronic Signature(s) Signed By: Date: Duy Cornell MD 12/03/2017 09:13:39 Entered By: Duy Cornell on 12/03/2017 07:06:08
== END ==
PROVIDERS: PCP Internal Medicine; Visit Provider Internal Medicine
DX: L59.8 Other specified disorders of the skin and subcutaneous tissue related to radiation (principal); L98.492 Non-pressure chronic ulcer of skin of other sites with fat layer exposed; S11.89XA Other open wound of other specified part of neck, initial encounter
CPT/HCPCS: 11042; 87070; 87077; 87147; 87186; 87205

== ENCOUNTER → 2017-12-11 09:26 | Outpatient (CLI) | payer OTHER, SELFPAY ==
[2017-09-21 21:10] VITALS: BMI 32.3
--- NOTE | 2017-12-11 | OV.WND_ITS ---
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 Allergies Penicillins (Severity: Moderate, Reaction: rash and hives), Vicodin (Severity: Moderate, Reaction: Rash and hives), ibuprofen (Severity: Moderate, Reaction: Rash and hives), Gelusil Antacid and Anti-Gas (Severity: Moderate, Reaction: increase in stomach discomfort), Septra (Severity: Moderate, Reaction: GI upset), Flagyl (Severity: Moderate, Reaction: Rash), Benadryl (Reaction: Rash), ranitidine (Severity: Moderate, Reaction: SOB, dizzy) HPI This information was obtained from the patient 12/10/17. Seen by Dr. Cornell. 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 12/02/17. Seen by Dr. Cornell. 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 11/26/17. Seen by Dr. Cornell. 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 11/19/17. Seen by Dr. Cornell. 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 11/12/17. Seen by Dr. Cornell. 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 11/05/17. Seen by Dr. Cornell. The patient reports a persistent productive cough for which she went to the ER recently. She was not placed on antibiotics. She does not report significant pain or drainage from the anterior neck soft tissue radiation ulcer however this tends to become contaminated via her laryngostomy site when she develops a productive cough. 10/29/17. Seen by Dr. Cornell. 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 10/22/17. Seen by Dr. Cornell. The patient reports persistence of a productive cough despite completing a recent course of doxycycline. The sputum tends to contaminate her anterior neck soft tissue ulcer via her laryngectomy stoma. She does not report increased pain or drainage associated with the ulcer however since her last visit. 10/13/17. Seen by Dr. Cornell. The patient does not report increased pain associated with the anterior neck soft tissue radiation ulcer since her previous visit ad she continues on doxycycline for bronchitis. Her dressings have been adjusted to facilitate frequent changing in light of her coughing and presumed contamination of the ulcer via her tracheostomy. 10/09/17. Seen by Dr. Cornell. The patient's now on doxycycline for recurrence of bronchitis. 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 The dressing has been chosen specifically to help prevent abrasion to the irradiated skin caused by the tracheostomy tube strap. 10/02/17. Seen by Dr. Cornell. 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 She does not report significant pain or drainage from the ulcer nor side effects of the antibiotics. The ulcer had deteriorated considerably over the previous 2 weeks and we adjusted dressings to better protect against abrasion caused by her tracheostomy tube and strap. 09/28/17. Seen by Dr. Cornell. The patient continues to report pain associated with the anterior soft tissue radiation neck ulcer and her wound culture from week grew Group A strep, Staph, and diptheroids. She's not currently on antibiotics and we've changed her dressing to better protect against abrasion from the tracheostomy tube and strap. 09/24/17. Seen by Dr. Cornell. The patient does not report increased pain associated with the anterior neck soft tissue radiation ulcer however the nurse feels the ulcer is longer than on her previous visit. 09/17/17. Seen by Dr. Cornell. 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 She has an appointment tomorrow with her PCP to address this problem. Otherwise she does not report increased pain or drainage associated with the ulcer however the nurse reports the ulcer as being larger this week. 09/10/17. Seen by Dr. Cornell. 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 Her culture at the last visit grew Diptherioids and he's applying topical gentamicin with dressing changes which has been adjusted to better protect the site from the abrading ET tube and strap. 09/07/17. Seen by Dr. Cornell. 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 The staff also feels the ulcer's increased in size and she's no long on oral antibiotics that were prescribed recently for a Enterococcus positive wound culture. 08/31/17. Seen by Finn Felton PA-C. The patient reports pain associated with her chronic neck radiation ulcer. 08/24/17. Seen by Dr. Cornell. 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 She continues to apply topical gentamicin to the ulcer to treat the Enterococcus positive wound culture as recommended. 08/14/17. Seen by Dr. Cornell. The patient's been applying topical gentamicin daily to the soft tissue radiation neck ulcer to treat the recent Enterococcus positive wound culture and she's completed her course of levofloxacin. 08/07/17. Seen by Dr. Cornell. 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 She does not report increased pain nor drainage from the site however nor other acute issues today. 07/31/17. Seen by Dr. Cornell. 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 07/24/17. Seen by Dr. Cornell. 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 07/17/17. Seen by Dr. Cornell. 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 Of note, the patient also states she fell from her bed a few days ago resulting in bilateral black eyes. 07/10/2017. Seen by Dr. Cornell. 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 She does not report increased drainage however nor other acute issues. 07/03/17. Seen by Dr. Cornell. 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 06/19/17. Seen by Dr. Cornell. 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 06/09/17. Seen by Dr. Cornell. The patient reports some pain associated with the anterior neck right sided soft tissue radiation ulcer and continues on doxycycline and levofloxacin following a recent admission for a COPD exacerbation. She does not report increased drainage from the ulcer sites and is using Xeroform and Scar-away dressings as recommended. 06/01/17. Seen by Dr. Cornell. The patient was admitted to the hospital for a COPD exacerbation and is now on oral antibiotics following discharge. She reports some ear pain but otherwise no acute issues. Regarding her soft tissue radiation ulcers over the anterior neck she is now using the silicone dressings and Xeroform as recommended and does not report significant pain or drainage.Of note, these are complicated significantly by her tracheostomy tube and attached strap that tends to shear the irradiated skin causing ulcers. 05/25/17. Seen by Dr. Cornell. The patient reports pain associated with the chronic soft tissue radiation neck ulcers. She states her dressings are not on continuously and that she has been wearing her tracheostomy strap for extended periods at home despite our advice to not use it if possible. 05/18/17. Seen by Finn Felton PA-C. The patient reports continued pain from her soft tissue radiation ulcers of the neck. She has finished a once daily antibiotic for a URI but does not recall which antibiotic it was. 05/11/17. Seen by Finn Felton PA-C. The patient reports increased pain and increased drainage from her soft tissue radiation ulcers of the neck. 04/23/17. Similarly Dr. Cornell. The patient does not report increased pain nor drainage associated with the chronic neck soft tissue radiation ulcers since her last visit. 04/16/17. Seen by Finn Felton PA-C. The patient reports that the Radia-gel dressings did not stay in place and the tape used to secure them caused skin tears. 04/09/17. Seen by Finn Felton PA-C. The patient reports no increase in drainage from her radiation ulcers of the neck. 04/02/17. Seen by Finn Felton PA-C. The patient reports her usual amount of pain from her anterior neck ulcers. 03/26/17. Seen by Dr. Cornell. 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 She was discharged recently from [facility] following treatment for an acute URI and is now on levofloxacin. 03/19/17. Seen by Dr. Cornell. The patient does not report significant pain associated with chronic anterior neck soft tssue radiation ulcer since her last visit. 03/12/17. Seen by Dr. Cornell. The patient reports increased pain associated with the anterior neck soft tissue radiation ulcers. Of note, she is reusing her silicon dressings and washing them despite being advised not to do this in the past. She has very limited financial resources that is leading her to do this. 03/04/17. Seen by Dr. Cornell. 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 She continues on doxycycline for a cat bite at the right arm without reported adverse side effects and feels this is improving. There are also no new issues regarding his left neck nonpressure ulcer. 02/24/17. Seen by Dr. Cornell. 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 She was seen in the ER for this and had a CT performed that showed cellulitis but no associated abscess. She was started on levofloxacin at that visit. Also, she was to start doxycycline following her last wound care visit for a cat bite of the right arm however states the antibiotic was not covered by insurance so she has not started this. Otherwise, she does not report fevers or feeling unwell in general. 02/17/17. Seen by Dr. Cornell. The patient reports continued pain associated with the anterior and left lateral neck soft tissue radiation ulcers since her last visit. She is not currently on antibiotics. She also reports a cat bite of the right arm that's been bleeding and painful for the past 2 days since it occurred. 02/10/17. Seen by Finn Felton PA-C. The patient reports a new ulcer on her left neck , in the irradiated area from her previous radiation treatment. 01/16/17. Seen by Dr. Cornell. The patient reports some moderate pain and drainage associated with her chronic neck soft tissue radiation ulcers since her last visit. 01/09/17. Seen by Dr. Cornell. The patient does not report significant pain or increased drainage associated with her chronic neck soft tissue radiation ulcers since her last visit. Her recent wound culture grew ocampo-sensitive Staph aureus and she's applying topical gentamicin as recommended. 01/01/17. Seen by Finn Felton PA-C. The patient reports increased pain and drainage from her chronic neck ulcers which overly an irradiated field. 12/17/16. Seen by Dr. Cornell. The patient does not report significant pain or increased drainage associated with her chronic neck soft tissue radiation ulcers since her last visit. She'll be leaving for a hunting trip and will be gone until December 31. 12/11/16. Seen by Dr. Cornell. The patient does not report significant pain nor drainage associated with chronic neck soft tissue radiation ulcers since her last visit. She completed her course of levofloxacin in the interim and also states that she will not be undergoing reconstructive surgery following discussion with her surgeons. 11/27/16. Seen by Dr. Cornell. The patient reports increased pain and some bloody drainage associated with the anterior neck soft tissue radiation ulcer. She also states that she's had a persistent and productive cough over the past few days. Her most recent wound culture grew MSSA and the prior grew a pansensitive Pseudomonas organism. Staff also report a new ulcer over the left anterior neck. 11/20/16. Seen by Finn Felton PA-C. The patient came in urgently today to be evaluated for increased bleeding and drainage from her neck ulcers which overly radiation damaged tissue. 11/14/16. Seen by Dr. Cornell. The patient continues to apply topical gentamicin to the chronic soft tissue radiation neck ulcers to treat the recent Pseudomonas positive wound culture. She does not report significant pain or increased drainage from these sites. She has an appointment with another surgeon on November 21 to further discuss reconstructive options regarding the narrowing of her stoma and significant soft tissue contractures around the anterior neck. 11/07/16. Seen by Dr. Cornell. The patient reports a new ulcer over the left side of her neck at an area of scarring associated with her chronic soft tissue radiation injury of the neck. She does not report significant pain nor drainage at the site nor from the chronic anterior nonpressure ulcer. Her last culture at that site grew Pseudomonas that is intermediately. 10/31/16. Seen by Dr. Cornell. The patient and her caregiver reports increased drainage associated with the chronic and progressive right anterior neck soft tissue radiation ulcer over the past week. They're having issues in terms of dressing changes and managing increased drainage and the patient also has a persistent and productive cough with mucus being expelled from the tracheostomy site. Of note, the caregiver states that she has been attempting to liaise with Dr. Lopez's office, ENT surgery at , regarding a follow up appointment to discuss reconstructive surgery in hopes of addressing the chronic skin contractures that are contributing heavily to the refractory nature of this neck ulcer. 10/23/16. Seen by Finn Felton PA-C. The patient reports no increase in pain or drainage from her neck ulcer. Her two ulcers have bridged into one ulcer. She has no new news regarding a surgical revision. 10/10/16. Seen by Dr. Cornell.The patient does not report increased pain or drainage associated with the chronic soft tissue neck radiation ulcers since her last visit. Her culture from the last visit grew diphtheroids and she's been applying topical gentamicin as recommended. According to her caregiver they have still not heard back regarding an appointment with her surgeon who is planning a revision for the stenosed tracheostomy site noting the tube is contributing significantly to the ulcer formation. She also does not report significant pain or drainage associated with the superficial abdominal abscess noted at her last visit. 10/03/16. Seen by Dr. Cornell. The patient continues to report some pain associated with the chronic neck soft tissue radiation ulcers. The patient caregiver feels the proximal ulcer continues to increase in size. They have not yet scheduled an appointment for revision surgery for the tracheostomy as was discussed last week. 09/26/16. Seen by Dr. Cornell. The patient continues to report some pain as well as persistent drainage associated with the chronic right neck soft-tissue radiation ulcers. 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 He is planning for a revision surgery to try to address this issue in the near future. 09/19/16. Seen by Dr. Cornell. The patient and her brother continue to report some pain associated with the chronic neck nonpressure ulcers but no increased drainage and they've been changing the silicon dressings as recommended to protect the soft-tissue radiation injured skin and protect against abrasion caused by the tracheosteomy tube. Of note, the patient feels as though the stoma may gradually be tightening as she continues to have some difficulty replacing the tube after taking it out. She also reports some persistent productive coughing and nasal drainage in the evenings and through the night and feels it may be related to allergies. 09/01/16. Seen by Dr. Cornell. The patient's brother who's present today reports that the patient's silicon dressings are being changed less frequently than recommended and in washing them the adherence is deteriorating which may be leading to loss of function in terms of protecting the underlying irradiated skin and neck ulcers. She does not report increased drainage or pain associated with the neck ulcers today. 08/28/16. Seen by Dr. Cornell. The patient removed her tracheostomy tube in clinic today and is having difficulty replacing it. She's a bit anxious at the time of exam but is breathing without distress or audible stridor. Regarding her chronic neck soft tissue radiation ulcers, there's no new issues to report and she's been dressing them as recommended. 08/21/16. Seen by Dr. Cornell. The patient reports continued pain and drainage associated with the chronic soft tissue radiation ulcer along the margin of her tracheostomy stoma. She and her caregiver are dressing it as recommended and she's completed her course of antibiotics those treating the recently cultured MRSA. 08/15/16. Seen by Dr. Cornell. The patient reports increased pain associated with the chronic soft tissue radiation neck ulcers since her last visit and her caregiver reports some thick overlying drainage around the mid-line ulcer adjacent to the tracheostomy stoma. She does not report fevers or feeling unwell however and has been applying topical antibiotic to the ulcers as recommended. 08/08/16. Seen by Dr. Cornell. The patient reports continued pain associated with the chronic anterior neck non-pressure ulcers and they've been applying topical gentamicin to treat the recurrent MRSA positive wound cutlures. She's also wearing her silicon dressing as recommended to help protect the soft tissue radiation injury of the skin from abrasion caused by her tracheostomy tube strap. 08/01/16. Seen by Dr. Cornell. The patient's caregiver reports improvement in terms of pain and drainage associated with the chronic neck ulcers. They've been applying topical gentamicin as recommended for the chronic wound infections. 07/23/16. Seen by Dr. Cornell. The patient's caregiver reports improvement in terms of pain and drainage associated with the chronic neck ulcers overlying the soft tissue radiation injury that follow treatment for her laryngeal cancer years ago. They've been applying topical gentamicin as recommended for the chronic wound infections. 07/09/16. Seen by Finn Felton PA-C. The patient reports she has run out of the silicone strips that were fabricated by [employer] to reduce abrasion from her laryngostomy collar. She is using scar fade strips which are not staying in place. Her neck ulcers continue to be present under the collar. 06/25/16. Seen by Dr. Cornell. The patient's caregiver reports improvement in terms of pain and drainage associated with the chronic neck ulcers. They've been applying topical gentamicin as recommended for the chronic wound infections. 06/11/16. Seen by Dr. Cornell. The patient reports improvement in terms of pain and drainage associated with the chronic neck ulcers. She completed her course of ciprofloxacin which was treating the recurrent ulcer infections and she continues to apply topical gentamicin to the ulcer beds. 06/04/16. Seen by Dr. Cornell. The patient continues to report some pain and minimal drainage associated with the chronic neck ulcers are complicated by underlying soft tissue radiation injury. She was just discharged from the hospital for tracheobronchitis and continues on ciprofloxacin with cultures that have grown Pseudomonas, Staph, and Haemophilus. She does not report adverse side effects from antibiotics nor fevers or feeling unwell today although she continues to have a mild cough. 05/26/16. Seen by Finn Felton PA-C. The patient reports no increase in drainage or pain from her neck ulcers. 05/16/16. Seen by Dr. Cornell. The patient does not report significant pain nor drainage associated with the recurrent neck soft tissue radiation ulcers since her last visit. She's been applying topical gentamicin as recommended and wearing the silicon dressings to protect from the trach tube strap rubbing on the irradiated skin.Also, her wound culture from the last visit grew MSSA. 05/09/16. Seen by Dr. Cornell. The patient feels her recurrent soft tissue radiation ulcers over the mid and left aspects of her neck are painful and draining for the past week. She reports wearing her silicon dressing but does not have it in place all of the time and has been leaving her tracheostomy tube strap off for extended periods during the day to help prevent abrasion. She's been applying topical gentamicin to the ulcers but is not currently on systemic antibiotics. 04/29/16. Seen by Finn Felton PA-C. The patient reports continued compliance with her silicone skin protector that she wears under her collar. She reports improvement in her neck ulcers, however she ran out of supplies a few days ago and now reports worsening of the ulcers. 04/11/16. Seen by Dr. Cornell. The patient reports decreased pain and drainage associated with the chronic neck non-pressure ulcers over the patient week and she's applying topical gentamicin to treat the chronic MRSA wound infection as recommended. She's also using silicon dressings to help better protect the soft tissue radiation injury to the neck which is heavily implicated in the recurrent and refractory nature of the ulcers. 04/04/16. Seen by Dr. Cornell. The patient reports an increase in the size and pain associated with the left neck non-pressure ulcer since her last visit. She's applying gentamicin ointment to all of the ulcers a recommended and using the silicon dressings to help prevent abrasion caused by the trach tube strap. 03/28/16. Seen by Dr. Cornell. The patient reports decreased pain and drainage associated with the chronic neck non-pressure ulcers over the patient week and she's restarted use of the silicon dressings again to protect the irradiated skin that's been breaking down under the trach strap and contributing to the recurrent and refractory nature of the ulcers. 03/21/16. Seen by Dr. Cornell. The patient reports decreased pain and drainage associated with the chronic neck non-pressure ulcers over the patient week and she continues applying topical gentamicin to treat the chronic MRSA wound infection. 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 03/13/15. Seen by Dr. Cornell. The patient reports decreased pain and drainage associated with the chronic neck non-pressure ulcers over the patient week since starting on doxycycline for a recurrent MRSA wound infection. She's now using silicon dressings to protect the irradiated skin over the neck that resulted from radiation therapy treating laryngeal cancer. She does not report adverse effects of the doxycycline and is also applying topical gentamicin daily to the ulcer sites. 03/06/16. Seen by Dr. Cornell. The patient reports persistent pain associated with the recurrent neck non-pressure ulcers and staff report they're larger and are draining based on the dressings. 02/28/16. Seen by Dr. Cornell. The patient returns with new ulcers overlying her soft tissue radiation neck injury that resulted following treatment for laryngeal cancer. She states she ran out of the silicon dressings she uses to protect the area from her trach tube strap and after this the ulcers appeared and are quite painful. Their draining however she does not report fevers. 11/28/15. Seen by Dr. Cornell. 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 11/21/15. Seen by Dr. Cornell. The patient reports some minimal pain associated with the chronic neck soft tissue radiation ulcer since her last visit. She also complains of right ear pain and has asked me to have look in the ear as it feels like there may be a foreign body present. She also reports a mild cough, sore throat, and feeling a bit unwell in general. 11/14/15. Seen by Dr. Cornell. The patient reports moderate pain but no significant drainage associated with the left neck soft tissue radiation ulcer since her last visit. 10/31/15. Seen by Dr. Cornell. The patient reports some pain associated with the left neck soft tissue radiation ulcer but no increased drainage from either ulcer nor pain associated with the middle soft tissue radiation ulcer. Her caregiver notes that they're running out of the silicon dressings and they've become nearly prohibitively expensive. 10/12/15 Seen by Finn Felton PA-C. The patient returns to our clinic after reconstructive scar- revision surgery on her radiation damaged neck. She has wounds that have been left to close by secondary intention and are slow to heal. In addition, her silicone strips that help hold her laringostomy collar in place continue to work well for her. 09/07/[address] Cornell. The patient presents with a new rash over the right neck overlying the soft tissue radiation injury. Of note, her very chronic wounds at the same site were recently healed. She dose not report pain, drainage, or skin breakdown associated with the rash. 08/24/[address] Cornell. The patient does not report pain or drainage associated with the chronic neck soft tissue radiation ulcers over the past few days and she's using the silicon dressings to cover the ulcers. 08/15/[address] Cornell. The patient nor her caregiver report significant pain or drainage from either the left or right neck soft tissue radiation ulcers over the past week and she's received her silicon dressings that are being used to prevent abrasion to the skin caused by her laryngostomy tube strap. 08/09/[address] Cornell. 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 Otherwise the right neck ulcers remain relatively stable and have minimal drainage over the past week. 08/02/[address] Cornell. The patient reports minimal discomfort associated with the chronic neck soft tissue radiation ulcers and her caregiver feels they've improved considerably over the past week while applying gentamicin ointment and using the silicon dressing to prevent abrasion from the trach strap. 07/26/[address] Cornell. The patient reports only moderate discomfort and minimal drainage associate with her remaining soft tissue radiation ulcers of the neck. 07/19/[address] Conrell. The patient's caregiver reports increased drainage on the dressings covering the neck soft tissue radiation ulcers and the patient reports some increased pain at the ulcer sites. They're also running out of the silicon dressings they' ve been using to protect the ulcers from abrasion caused by the overlying trach strap. She does not report any problems regarding the chronic left upper arm wound. 07/12/[address] Cornell. The patient does not report increased pain or drainage associated with her chronic neck soft tissue radiation ulcers and she's been using her silicon wound dressings daily. She feels her ulcers are much less painful since changing to the new dressings. 4/28/[address] Cornell. The patient reports a significant improvement in pain regarding her chronic neck soft tissue radiation ulcers since starting to use adherent silicon dressings to prevent abrasion caused by her trach strap. She does not report significant drainage from the ulcers. 06/22/[address] Cornell. The patient continues to report persistent pain associated with the chronic neck soft tissue radiation ulcers. 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 06/12/15 Seen by Finn Felton PA-C. The patient reports continued pain from her radiation neck ulcers. 06/05/15 Seen by Finn Felton PA-C. The patient reports continued pain and stable drainage from her neck radiation ulcers. She continues to use her favored dressings instead of ones that we have recommended for her. 05/21/15 Seen by Finn Felton PA-C. The patient reports continued pain and no change in drainage from her neck radiation ulcers and her arm and chest wounds. 05/08/15 Seen by Finn Felton PA-C. The patient reports continued pain and stable drainage from her neck radiation ulcers. Flores from [facility] attended part of the appointment to try fitting her for the laryngectomy collar protective prosthetic. 04/25/[address] Cornell. The patient continues to report significant pain associated with the chronic soft tissue radiation neck ulcers and the staff report at least moderate drainage on her dressings today. She does not report fevers or feeling unwell otherwise. 04/11/[address] Cornell. The patient been on levofloxacin and doxycycline for Pseudomonas and MRSA positive wounds cultures taken from her soft tissue radiation ulcers over the neck and around the laryngostomy wound. She still reports pain associated with the ulcers but indicates it's not as bad as last week. 04/05/[address] Cornell. The patient reports persistent pain associated with her neck soft tissue radiation ulcers. She's currently on levofloxacin and doxycycline for the Pseudomonas and MRSA positive culture taken at the last visit and she does not report adverse side effects. 03/28/2015 Seen by Finn Felton PA-C. The patient continues to complain of neck ulcer pain. In addition she again asks today why are they hurting. She has not been compliant with any of our attempts at specialized laryngectomy collar padding or dressings. 03/21/2015 Seen by Finn Felton PA-C. The patient returns with stable 6-7/10 constant pain from the radiation ulcers on her neck. She continues on Doxycycline and has finished her course of prednisone for a URI as prescribed by her PCP. He has recently not been able to keep the Radiagel sheets attached to her neck or tracheostomy collar and has gone back to using Xeroform gauze. 02/19/15 Seen by Finn Felton PA-C. The patient returns for evaluation of her radiation ulcers of the neck. She reports continued pain and her most recent dressings that we have trialed did not stay in place. 02/12/15 Seen by Finn Felton PA-C. The patient reports continued neck pain from her radiation ulcers as well as tightness in her surrounding neck tissues. She reports the pain is exacerbated by rubbing of her tracheostomy tube macias and by any palpation or instrumentation. Drainage has been minimal. 02/05/15 Seen by Finn Felton PA-C. The patient presents today with a new wound on her left lateral neck, on her irradiated tissue. This wound is 01/24/[address] Cornell. The patient reports a cough and feeling unwell the past few days. She continues on doxycycline and levofloxcacin for the recent MRSA and Pseudomonas positive wound culture. Of note, she arrives today with gauze dressings over her next ulcers as opposed to foam which has been recommended. 01/17/[address] Cornell. The patient's been started on doxycycline and levofloxacin for her wound culture from the last visit that grew MRSA again plus Pseudomonas which is new. She reports having a cough and low grade fever also and the staff report the left neck ulcer dressings as being quite wet. 01/12/[address] Cornell. The patient indicates the neck ulcer pain is a 6-7/ 10 today and states she's been adhering to our dressing change recommendations. She's not currently on antibiotics and does not report fever although she feels a bit under the weather. 01/05/[address] Cornell. The patient complains of 4/10 pain at the site of her remaining chronic neck ulcers. 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 12/18/14 Seen by Finn Felton PA-C. The patient continues to have difficulty securing her dressings and keeping them in place under her tracheostomy collar. She is planning on going deer hunting and will be away from our clinic for over 1 week. 12/12/[address] Cornell. The patient complains of significant right ear pain. Her left neck ulcer culture from the last visit grew MRSA and she's not currently on antibiotics at this time. Of note, the foam that we placed around the tracheostomy tube to prevent abrasion was not in place on the patient's arrival today. 12/08/[address] Cornell. The patient complains of some persistent pain at the site of the left neck ulcer but does not report fever or increased drainage. Of note, she's not changed her dressing since her last visit 3 days ago. 11/28/14 Seen by Finn Felton PA-C. The patient again reports right ear pain without drainage or disturbance in hearing. The dressing on her head wound has stayed in place and her neck dressings lasted less than 24hrs in place. Scalp wound pain has decreased. 11/28/14 Seen by Finn Felton PA-C. The patient has seen her PCP for her right ear issues and he has prescribed her Cefuroxime, which she is currently taking. She has kept her scalp dressing in place and reports continued neck pain and a new neck wound on the left. 11/14/14 Seen by Finn Felton PA-C. The patient's right sided neck wound and scalp wound are much improved today after she has been keeping her head wound covered and has loosened her trach collar. Both wounds are reportedly less painful than before. 11/07/14 Doc Z Surg: patient returns for follow-up of the radiation injury and mechanical abrasions wounds of the neck laterally and anteriorly adjacent to the tracheostomy straps which appear to have been chafing on this sensitive skin in the field of radiation. The padded protective dressing has been utilized since her last visit and shows marked improvement in all of the wounds. Also the scalp abrasions which appear to be fingernail scrapings have also improved markedly after the patient educated to avoid fingernails scratching on the scalp area. Question was raised regarding the possibly poor fitting tracheostomy tube but this appears normal and not problematic to my examination. At present I do not see any need for ENT reevaluation of the [id number] tracheostomy site. 10/26/[address] Cornell. The patient complains of recurrent right ear pain that's constant over the past week but does not report fever, sweats, or drainage from the ear. Her wound cultres from the scalp and neck ulcers grew MRSA on 10/04/14. She continues to report pain at these sites and has been unable to maintain dressings as recommended due to discomfort and the fact the scalp dressing falls off. 10/12/14 Seen by Finn Felton PA-C. The patient reports ear pain after completing HBOT. Her wounds still feel tight around her neck but are otherwise stable and more comfortable with her new foam neck dressings. 10/04/[address] Cornell. The patient feels the pain associated with her neck and scalp ulcers is improved and only noticeable intermittently. She arrived today with foam dressings over the neck ulcers which we started utilizing last week to minimize trauma from the tracheostomy tube harness to the skin and ulcers beneath. 09/27/[address] Cornell. The patient feels her neck ulcers and scalp wounds are less painful however the staff report that the dressing plan we implemented to help prevent abrasion to the neck ulcers does not seem to have been continued after the patient left clinic last week. She's now off of antibiotics and does not report increased drainage. 09/20/[address] Cornell. The patient feels her scalp and neck ulcer pain are improving since she's been on IV daptomycin. She also had a doppler study yesterday that rule out a left arm DVT however she still complains of swelling and discomfort in the arm. 09/06/[address] Cornell. The patient complains of continued pain and drainage associated with her scalp and neck ulcers. She's no longer on antibiotics and recently grew Enterococcus and resistant coag negative Staph from the ulcer sites respectively. 08/30/[address] Cornell. The patient reports continued pain at the neck and scalp ulcers and her scalp wound grew Enterococcus on 08/23/14. She's taking clindamycin and completed a course of azithromycin that were started in the ER due to a recurrent URI. 08/16/14 Seen by Finn Felton PA-C. The patient continues to take Keflex for her scalp wound bacterial infection. She reports it is now more painful and draining more than before. Her neck radiation wounds continue to feel tight. 08/14/14 Seen by Finn Felton PA-C. The patient complains of right ear pain and fullness which started today. She reports feeling like she might have a cold coming on. 08/09/[address] Cornell. The patient complains of persistent pain at the site of the neck ulcers and worsening pain at the scalp ulcer. She's taking doxycycline based on the most recent MSSA wound culture sensitivities from the neck ulcer and does not report any adverse side effects. 07/08/[address] Cornell. The patient feels the neck ulcer pain is improving and she's completed her course of doxycycline that was started last week. She still complains of significant pain a the site of the scalp lesion however. Her wound culture from 07/28 grew MSSA sensitive to doxycycline. 07/26/[address] Cornell. The patient complains of increased pain at the neck ulcers as well as the scalp lesion. She does not report increased drainage, fever, cough, or chills and states her previously reported right ear pain has improved. 07/14/[address] Cornell. The patient reports right ear pain with a sore throat but no fevers or cough. 07/11/14 Seen by Finn Felton PA-C. The patient reports less scalp pain and no drainage from her scalp wound. She continues to report a pulling type pain in and around her neck wounds. 07/04/14 Seen by Finn Felton PA-C. The patient has cut her fingernails short and reports that her scalp wound is hurting and itching less. She reports a new wound over an old abdominal scar today. It has been present for 5 days and she is not sure how it occurred. 06/20/14 The patient feels her neck ulcer pain as well as the scalp lesion pain have improved since starting doxycycline. She continues to apply hydrogel and Xeroform to the neck ulcers to keep them moist. Otherwise she's tolerating HBOT without difficulty and has made significant progress in the healing of the neck ulcers throughout this most recent series of dives. 06/13/14 The patient indicates that her neck ulcers 'feel tight' and she still has some discomfort at the scalp lesions. She also complains of significant pruritis in the area of the scalp lesions. She's been taking taking doxycycline for the past week to treat a MRSA positive culture of the scalp ulcer. 06/06/14 The patient reports continued pain from all of her wounds and frustration that her scalp wound has not healed despite her not scratching it. 05/31/14 The patient's here for HBOT today but complains of new left facial pain over the angle of the mandible that started yesterday. She does not complain of ear pain or an dental or intraoral pain but has been treated in the hospital recently for recurrent pneumonia. She's also been reviewed in the past 3 months by her oncologist and reportedly is cancer free. 05/30/14 The patient does not report increased pain or drainage from her neck wounds nor scalp lesion. 05/18/14 The patient complains of significant pain at the left 3rd finger wound as well as her chronic scalp wound. Otherwise she does not report significant pain nor drainage from the neck wounds. 05/12/14 The patient does not report increased pain or drainage from her neck ulcers nor the wound on the scalp. 05/04/14 The patient reports increased pain at the left neck wound and apparently the barrier dressing slipped down and her guaze became adherent resulting in a skin tear upon removal. Otherwise she continues to complain of pain at both neck wounds and the scalp wound. 05/02/14 The patient was seen today in the HBOT treatment room for complaints of a productive cough. She was recently discharged from the hospital with a diagnosis of tracheobronchitis and is finishing a course of Levaquin. Cough is described as yellow and thick and is difficult to clear from her tracheostomy. 04/21/14 The patient complains of persistent ear pain in the right ear despite using antibiotic drops Rx'd by her ENT provider last week. She does not report drainage or fever. 04/18/14 The patient states her cough is improving and she's still on antibiotics from her recent admission for pneumonia. She does not report increased drainage or pain from the neck ulcers but states her right ear pain has returned. She was seen by ENT who felt the lesion in the external canal was traumatic and she was given an Rx for ear drops which she states she's been using. She also reports recurrence of the painful left scalp wound that was recently healed. 04/11/14 The patient complains of a cough productive of green sputum for the past few days that's particularly worse when lying flat. She indicates that she feels generally unwell and weak and is questioning whether she can tolerate HBOT today. 04/05/14 The patient continues to complain of right ear pain however does not report bleeding from the ear today. Of note, she was reviewed for this problem last week and a shallow ulcer in the right external ear canal was the only finding. 03/30/14 The patient reports continued 5/10 pain from her neck wound which is described as a constant, pulling type pain, which is exacerbated by flexing, extending or rotating her neck. 03/29/14 The patient completed her HBOT dive today and now complains of blood draining from the right ear. She does not report pain now nor during the dive today. 03/23/14 The patient reports increased pain from her medial neck wounds as well as from her scalp wound. The pain is described as a throbbing and sometimes pulling pain that is constant in nature and has no exacerbating factors, nor is it associated with any activity. She does not report fever, chills or increased wound drainage. Additionally the patient reports her [facility] cancer doctors are considering a reconstructive surgical revision of her neck once her current wounds heal. She brings with her today a note from her [facility] doctors on a prescription pad, on which is written Please continue hyperbaric oxygen therapy. 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/14) Ear pain (right side; recurrent) Chronic ulcer (scalp; Enterococcus positive culture on 08/23/14; MRSA positive on 10/04/14) Complaints and Symptoms This information was obtained from the patient Patient complains of: General Notes: I have reviewed and concur with the Review of Systems and Past Family Social History documents completed by the clinician, I have reviewed and concur with the Wound Assessment document completed by the clinician Ear/Nose/Mouth/Throat: Ear Pain Integumentary (Hair/Skin/Nails): Open Sore Musculoskeletal: Deformities, Muscle Weakness Prior Wound History: Bleeding, Drainage, Erythema, Pain Respiratory: Cough Patient denies complaints or symptoms related to: Cardiovascular (Central): Irregular heart beat Constitutional Symptoms (General Health): Chills, Fever, Marked Weight Change Ear/Nose/Mouth/Throat: Hearing Loss / Aid Gastrointestinal (GI): Nausea / Vomiting, Stomach/abdominal pain Hematologic/Lymphatic: Bleeding / Clotting Disorders, Bleeding Tendency Neurological: Loss of Protective Sensation Prior Wound History: Malodor Respiratory: Oxygen Use, Shortness of Breath Additional Information Does patient have a history of Cancer? Yes? Complete all questions.: Yes Location of Cancer: Neck Patient underwent Radiation Treatment? If yes, answer question below.: Yes OBJECTIVE Constitutional BP elevated; Afebrile; Alert and in no distress. Well developed. Alert. Clean appearing.. Height/Length: 66 in (167.64 cm), Weight: 229.6 lbs (104.36 kgs), BMI: 37.1, Temperature: 98.5 ?F (36.94 ?C), Pulse: 87 bpm, Respiratory Rate: 18 breaths/min, Blood Pressure: 177/98 mmHg, Pulse Oximetry: 96 %. Ears, Nose, Mouth, and Throat: No clinically significant hearing loss on informal examination. Integumentary (Hair, Skin) No periwound erythema, warmth, or significant drainage. No periwound rashes appreciated or noted otherwise.. Refer to appropriate clinician wound documentation for this visit; anterior neck ulcer extends to subcut and extends along a chord of scar tissue adjacent and right of the tracheostomy site; improved in terms of appearance of granulation; new left neck ulcer extends to dermis. Wound #36 Right, Proximal Neck is an acute Full Thickness Radiation Wound and has received a status of Not Healed. Subsequent wound encounter measurements are 6cm length x 1.3cm width x 0.1cm depth, with an area of 7.8 sq cm and a volume of 0.78 cubic cm. No tunneling has been noted. No sinus tract has been noted. No undermining has been noted. There is a moderate amount of serosanguineous drainage noted which has no odor. The patient reports a wound pain of level 7/10. The wound margin is attached. Wound bed has Yes epithelialization, No eschar, Yes slough, Yes bright red, pink, firm granulation. The periwound skin moisture is normal. The periwound skin exhibited: Induration , Erythema. The periwound skin did not exhibit: Brawny Induration, Edema, Excoriation, Callus, Crepitus, Fluctuance, Friable, Rash, Atrophie Melissa, Cyanosis, Ecchymosis, Hemosiderosis , Pallor, Rubor. The temperature of the periwound skin is WNL. Periwound skin does not exhibit signs or symptoms of infection. Local Pulse is N/A. 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 Initial wound encounter measurements are 0.4cm length x 0.4cm width x 0.1cm depth, with an area of 0.16 sq cm and a volume of 0.016 cubic cm. No tunneling has been noted. No sinus tract has been noted. No undermining has been noted. There is a moderate amount of serosanguineous drainage noted which has no odor. The patient reports a wound pain of level 4/10. The wound margin is attached. Wound bed has Yes epithelialization, No eschar, Yes slough, Yes pink, firm granulation. The periwound skin texture is normal. The periwound skin moisture is normal. The periwound skin color is normal. The temperature of the periwound skin is WNL. Periwound skin does not exhibit signs or symptoms of infection. Local Pulse is N/A. Neurological: Cranial nerves grossly intact with symmetric function normal by informal observation.. 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 A skin/ subcutaneous tissue level surgical debridement with a total area debrided of 7.8 sq cm was performed by Duy Cornell MD. Subcutaneous was removed along with devitalized tissue: slough. The following instrument(s) were used: curette. Pain control was achieved using 4% Lido. A time out was conducted prior to the start of the procedure. A minimal amount of bleeding was controlled with n/a. The procedure was tolerated well with a pain level of 0 throughout and a pain level of 0 following the procedure. Post Debridement Measurements: 6cm length x 1.3cm width x 0.2cm depth; with an area of 7.8 sq cm and a volume of 1.56 cubic cm; Additional Information Muscle fascia or bone removed and sent to pathology?: No PLAN Wound Orders: Wound #36 Right, Proximal Neck Anesthetic Topical Xylocaine to wound bed. Cleanser Cleanse Wound: - Distilled water. Dressings Primary dressing: - Adaptic cut to cover. Cover and secure with: - Hydrofera blue ready cut to fit next to trach site, secured with hypafix tape. Change Dressing: - Every 3 days. Wound #50 Left Neck Anesthetic Topical Xylocaine to wound bed. Cleanser Cleanse Wound: - Distilled water. Dressings Primary dressing: - Adaptic cut to cover. Cover and secure with: - Hydrofera blue ready cut to fit next to trach site, secured with hypafix tape. Change Dressing: - Every 3 days. Additional Orders: Follow-Up Appointments Return Appointment: - - After the 20th for Doctor visit. Nurse visit next week Other information: If you develop fever, chills, increased pain, drainage, redness or swelling please call our office. If after hours, respond to the ER. Should you experience any significant changes in your wound(s) or have any questions regarding your home care instructions please contact the wound center @ [phone]. If after hours, contact your primary care physician or go to the hospital emergency room. Scribing Attestation I attest, as the nurse, that I scribed these orders for the physician. I've reviewed the clinician's documentation and agree with the evaluation and plan as written. In addition, the patient's ulcer demonstrates evidence of non-viable devitalized tissue which will continue to benefit from sharp debridement to help promote granulation and expedite healing. Electronic Signature(s) Signed By: Date: Duy Cornell MD 12/14/2017 13:43:10 Entered By: Duy Cornell on 12/14/2017 13:34:23
== END ==
PROVIDERS: PCP Internal Medicine; Visit Provider Internal Medicine
DX: L59.8 Other specified disorders of the skin and subcutaneous tissue related to radiation (principal); L98.492 Non-pressure chronic ulcer of skin of other sites with fat layer exposed; S11.89XA Other open wound of other specified part of neck, initial encounter; G89.29 Other chronic pain
CPT/HCPCS: 11042

== ENCOUNTER → 2017-12-16 09:17 | Outpatient (CLI) | payer OTHER, SELFPAY ==
[2017-09-21 21:10] VITALS: BMI 32.3
== END ==
PROVIDERS: PCP Internal Medicine; Visit Provider Family Medicine
DX: L59.8 Other specified disorders of the skin and subcutaneous tissue related to radiation (principal); L98.492 Non-pressure chronic ulcer of skin of other sites with fat layer exposed; S11.89XA Other open wound of other specified part of neck, initial encounter; G89.29 Other chronic pain
CPT/HCPCS: 99213

== ENCOUNTER → 2017-12-29 09:05 | Outpatient (CLI) | payer OTHER, SELFPAY ==
[2017-09-21 21:10] VITALS: BMI 32.3
--- NOTE | 2017-12-29 | OV.WND_ITS ---
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 Allergies Penicillins (Severity: Moderate, Reaction: rash and hives), Vicodin (Severity: Moderate, Reaction: Rash and hives), ibuprofen (Severity: Moderate, Reaction: Rash and hives), Gelusil Antacid and Anti-Gas (Severity: Moderate, Reaction: increase in stomach discomfort), Septra (Severity: Moderate, Reaction: GI upset), Flagyl (Severity: Moderate, Reaction: Rash), Benadryl (Reaction: Rash), ranitidine (Severity: Moderate, Reaction: SOB, dizzy) HPI This information was obtained from the patient 12/29/17. Seen by Dr. Cornell. 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 12/10/17. Seen by Dr. Cornell. 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 12/02/17. Seen by Dr. Cornell. 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 11/26/17. Seen by Dr. Cornell. 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 11/19/17. Seen by Dr. Cornell. 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 11/12/17. Seen by Dr. Cornell. 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 11/05/17. Seen by Dr. Cornell. The patient reports a persistent productive cough for which she went to the ER recently. She was not placed on antibiotics. She does not report significant pain or drainage from the anterior neck soft tissue radiation ulcer however this tends to become contaminated via her laryngostomy site when she develops a productive cough. 10/29/17. Seen by Dr. Cornell. 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 10/22/17. Seen by Dr. Cornell. The patient reports persistence of a productive cough despite completing a recent course of doxycycline. The sputum tends to contaminate her anterior neck soft tissue ulcer via her laryngectomy stoma. She does not report increased pain or drainage associated with the ulcer however since her last visit. 10/13/17. Seen by Dr. Cornell. The patient does not report increased pain associated with the anterior neck soft tissue radiation ulcer since her previous visit ad she continues on doxycycline for bronchitis. Her dressings have been adjusted to facilitate frequent changing in light of her coughing and presumed contamination of the ulcer via her tracheostomy. 10/09/17. Seen by Dr. Cornell. The patient's now on doxycycline for recurrence of bronchitis. 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 The dressing has been chosen specifically to help prevent abrasion to the irradiated skin caused by the tracheostomy tube strap. 10/02/17. Seen by Dr. Cornell. 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 She does not report significant pain or drainage from the ulcer nor side effects of the antibiotics. The ulcer had deteriorated considerably over the previous 2 weeks and we adjusted dressings to better protect against abrasion caused by her tracheostomy tube and strap. 09/28/17. Seen by Dr. Cornell. The patient continues to report pain associated with the anterior soft tissue radiation neck ulcer and her wound culture from week grew Group A strep, Staph, and diptheroids. She's not currently on antibiotics and we've changed her dressing to better protect against abrasion from the tracheostomy tube and strap. 09/24/17. Seen by Dr. Cornell. The patient does not report increased pain associated with the anterior neck soft tissue radiation ulcer however the nurse feels the ulcer is longer than on her previous visit. 09/17/17. Seen by Dr. Cornell. 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 She has an appointment tomorrow with her PCP to address this problem. Otherwise she does not report increased pain or drainage associated with the ulcer however the nurse reports the ulcer as being larger this week. 09/10/17. Seen by Dr. Cornell. 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 Her culture at the last visit grew Diptherioids and he's applying topical gentamicin with dressing changes which has been adjusted to better protect the site from the abrading ET tube and strap. 09/07/17. Seen by Dr. Cornell. 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 The staff also feels the ulcer's increased in size and she's no long on oral antibiotics that were prescribed recently for a Enterococcus positive wound culture. 08/31/17. Seen by Finn Felton PA-C. The patient reports pain associated with her chronic neck radiation ulcer. 08/24/17. Seen by Dr. Cornell. 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 She continues to apply topical gentamicin to the ulcer to treat the Enterococcus positive wound culture as recommended. 08/14/17. Seen by Dr. Cornell. The patient's been applying topical gentamicin daily to the soft tissue radiation neck ulcer to treat the recent Enterococcus positive wound culture and she's completed her course of levofloxacin. 08/07/17. Seen by Dr. Cornell. 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 She does not report increased pain nor drainage from the site however nor other acute issues today. 5/25/18. Seen by Dr. Cornell. 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 07/24/17. Seen by Dr. Cornell. 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 07/17/17. Seen by Dr. Cornell. 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 Of note, the patient also states she fell from her bed a few days ago resulting in bilateral black eyes. 07/10/2017. Seen by Dr. Cornell. 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 She does not report increased drainage however nor other acute issues. 07/03/17. Seen by Dr. Cornell. 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 06/19/17. Seen by Dr. Cornell. 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 06/09/17. Seen by Dr. Cornell. The patient reports some pain associated with the anterior neck right sided soft tissue radiation ulcer and continues on doxycycline and levofloxacin following a recent admission for a COPD exacerbation. She does not report increased drainage from the ulcer sites and is using Xeroform and Scar-away dressings as recommended. 06/01/17. Seen by Dr. Cornell. The patient was admitted to the hospital for a COPD exacerbation and is now on oral antibiotics following discharge. She reports some ear pain but otherwise no acute issues. Regarding her soft tissue radiation ulcers over the anterior neck she is now using the silicone dressings and Xeroform as recommended and does not report significant pain or drainage.Of note, these are complicated significantly by her tracheostomy tube and attached strap that tends to shear the irradiated skin causing ulcers. 05/25/17. Seen by Dr. Cornell. The patient reports pain associated with the chronic soft tissue radiation neck ulcers. She states her dressings are not on continuously and that she has been wearing her tracheostomy strap for extended periods at home despite our advice to not use it if possible. 05/18/17. Seen by Finn Felton PA-C. The patient reports continued pain from her soft tissue radiation ulcers of the neck. She has finished a once daily antibiotic for a URI but does not recall which antibiotic it was. 05/11/17. Seen by Finn Felton PA-C. The patient reports increased pain and increased drainage from her soft tissue radiation ulcers of the neck. 04/23/17. Similarly Dr. Cornell. The patient does not report increased pain nor drainage associated with the chronic neck soft tissue radiation ulcers since her last visit. 04/16/17. Seen by Finn Felton PA-C. The patient reports that the Radia-gel dressings did not stay in place and the tape used to secure them caused skin tears. 04/09/17. Seen by Finn Felton PA-C. The patient reports no increase in drainage from her radiation ulcers of the neck. 04/02/17. Seen by Finn Felton PA-C. The patient reports her usual amount of pain from her anterior neck ulcers. 03/26/17. Seen by Dr. Cornell. 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 She was discharged recently from [facility] following treatment for an acute URI and is now on levofloxacin. 03/19/17. Seen by Dr. Cornell. The patient does not report significant pain associated with chronic anterior neck soft tssue radiation ulcer since her last visit. 03/12/17. Seen by Dr. Cornell. The patient reports increased pain associated with the anterior neck soft tissue radiation ulcers. Of note, she is reusing her silicon dressings and washing them despite being advised not to do this in the past. She has very limited financial resources that is leading her to do this. 03/04/17. Seen by Dr. Cornell. 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 She continues on doxycycline for a cat bite at the right arm without reported adverse side effects and feels this is improving. There are also no new issues regarding his left neck nonpressure ulcer. 02/24/17. Seen by Dr. Cornell. 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 She was seen in the ER for this and had a CT performed that showed cellulitis but no associated abscess. She was started on levofloxacin at that visit. Also, she was to start doxycycline following her last wound care visit for a cat bite of the right arm however states the antibiotic was not covered by insurance so she has not started this. Otherwise, she does not report fevers or feeling unwell in general. 02/17/17. Seen by Dr. Cornell. The patient reports continued pain associated with the anterior and left lateral neck soft tissue radiation ulcers since her last visit. She is not currently on antibiotics. She also reports a cat bite of the right arm that's been bleeding and painful for the past 2 days since it occurred. 02/10/17. Seen by Finn Felton PA-C. The patient reports a new ulcer on her left neck , in the irradiated area from her previous radiation treatment. 01/16/17. Seen by Dr. Cornell. The patient reports some moderate pain and drainage associated with her chronic neck soft tissue radiation ulcers since her last visit. 01/09/17. Seen by Dr. Cornell. The patient does not report significant pain or increased drainage associated with her chronic neck soft tissue radiation ulcers since her last visit. Her recent wound culture grew ocampo-sensitive Staph aureus and she's applying topical gentamicin as recommended. 01/01/17. Seen by Finn Felton PA-C. The patient reports increased pain and drainage from her chronic neck ulcers which overly an irradiated field. 12/17/16. Seen by Dr. Cornell. The patient does not report significant pain or increased drainage associated with her chronic neck soft tissue radiation ulcers since her last visit. She'll be leaving for a hunting trip and will be gone until December 31. 12/11/16. Seen by Dr. Cornell. The patient does not report significant pain nor drainage associated with chronic neck soft tissue radiation ulcers since her last visit. She completed her course of levofloxacin in the interim and also states that she will not be undergoing reconstructive surgery following discussion with her surgeons. 11/27/16. Seen by Dr. Cornell. The patient reports increased pain and some bloody drainage associated with the anterior neck soft tissue radiation ulcer. She also states that she's had a persistent and productive cough over the past few days. Her most recent wound culture grew MSSA and the prior grew a pansensitive Pseudomonas organism. Staff also report a new ulcer over the left anterior neck. 11/20/16. Seen by Finn Felton PA-C. The patient came in urgently today to be evaluated for increased bleeding and drainage from her neck ulcers which overly radiation damaged tissue. 11/14/16. Seen by Dr. Cornell. The patient continues to apply topical gentamicin to the chronic soft tissue radiation neck ulcers to treat the recent Pseudomonas positive wound culture. She does not report significant pain or increased drainage from these sites. She has an appointment with another surgeon on November 21 to further discuss reconstructive options regarding the narrowing of her stoma and significant soft tissue contractures around the anterior neck. 11/07/16. Seen by Dr. Cornell. The patient reports a new ulcer over the left side of her neck at an area of scarring associated with her chronic soft tissue radiation injury of the neck. She does not report significant pain nor drainage at the site nor from the chronic anterior nonpressure ulcer. Her last culture at that site grew Pseudomonas that is intermediately. 10/31/16. Seen by Dr. Cornell. The patient and her caregiver reports increased drainage associated with the chronic and progressive right anterior neck soft tissue radiation ulcer over the past week. They're having issues in terms of dressing changes and managing increased drainage and the patient also has a persistent and productive cough with mucus being expelled from the tracheostomy site. Of note, the caregiver states that she has been attempting to liaise with Dr. Lopez's office, ENT surgery at , regarding a follow up appointment to discuss reconstructive surgery in hopes of addressing the chronic skin contractures that are contributing heavily to the refractory nature of this neck ulcer. 10/23/16. Seen by Finn Felton PA-C. The patient reports no increase in pain or drainage from her neck ulcer. Her two ulcers have bridged into one ulcer. She has no new news regarding a surgical revision. 10/10/16. Seen by Dr. Cornell.The patient does not report increased pain or drainage associated with the chronic soft tissue neck radiation ulcers since her last visit. Her culture from the last visit grew diphtheroids and she's been applying topical gentamicin as recommended. According to her caregiver they have still not heard back regarding an appointment with her surgeon who is planning a revision for the stenosed tracheostomy site noting the tube is contributing significantly to the ulcer formation. She also does not report significant pain or drainage associated with the superficial abdominal abscess noted at her last visit. 10/03/16. Seen by Dr. Cornell. The patient continues to report some pain associated with the chronic neck soft tissue radiation ulcers. The patient caregiver feels the proximal ulcer continues to increase in size. They have not yet scheduled an appointment for revision surgery for the tracheostomy as was discussed last week. 09/26/16. Seen by Dr. Cornell. The patient continues to report some pain as well as persistent drainage associated with the chronic right neck soft-tissue radiation ulcers. 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 He is planning for a revision surgery to try to address this issue in the near future. 09/19/16. Seen by Dr. Cornell. The patient and her brother continue to report some pain associated with the chronic neck nonpressure ulcers but no increased drainage and they've been changing the silicon dressings as recommended to protect the soft-tissue radiation injured skin and protect against abrasion caused by the tracheosteomy tube. Of note, the patient feels as though the stoma may gradually be tightening as she continues to have some difficulty replacing the tube after taking it out. She also reports some persistent productive coughing and nasal drainage in the evenings and through the night and feels it may be related to allergies. 09/01/16. Seen by Dr. Cornell. The patient's brother who's present today reports that the patient's silicon dressings are being changed less frequently than recommended and in washing them the adherence is deteriorating which may be leading to loss of function in terms of protecting the underlying irradiated skin and neck ulcers. She does not report increased drainage or pain associated with the neck ulcers today. 08/28/16. Seen by Dr. Cornell. The patient removed her tracheostomy tube in clinic today and is having difficulty replacing it. She's a bit anxious at the time of exam but is breathing without distress or audible stridor. Regarding her chronic neck soft tissue radiation ulcers, there's no new issues to report and she's been dressing them as recommended. 08/21/16. Seen by Dr. Cornell. The patient reports continued pain and drainage associated with the chronic soft tissue radiation ulcer along the margin of her tracheostomy stoma. She and her caregiver are dressing it as recommended and she's completed her course of antibiotics those treating the recently cultured MRSA. 08/15/16. Seen by Dr. Cornell. The patient reports increased pain associated with the chronic soft tissue radiation neck ulcers since her last visit and her caregiver reports some thick overlying drainage around the mid-line ulcer adjacent to the tracheostomy stoma. She does not report fevers or feeling unwell however and has been applying topical antibiotic to the ulcers as recommended. 08/08/16. Seen by Dr. Cornell. The patient reports continued pain associated with the chronic anterior neck non-pressure ulcers and they've been applying topical gentamicin to treat the recurrent MRSA positive wound cutlures. She's also wearing her silicon dressing as recommended to help protect the soft tissue radiation injury of the skin from abrasion caused by her tracheostomy tube strap. 08/01/16. Seen by Dr. Cornell. The patient's caregiver reports improvement in terms of pain and drainage associated with the chronic neck ulcers. They've been applying topical gentamicin as recommended for the chronic wound infections. 07/23/16. Seen by Dr. Cornell. The patient's caregiver reports improvement in terms of pain and drainage associated with the chronic neck ulcers overlying the soft tissue radiation injury that follow treatment for her laryngeal cancer years ago. They've been applying topical gentamicin as recommended for the chronic wound infections. 07/09/16. Seen by Finn Felton PA-C. The patient reports she has run out of the silicone strips that were fabricated by [employer] to reduce abrasion from her laryngostomy collar. She is using scar fade strips which are not staying in place. Her neck ulcers continue to be present under the collar. 06/25/16. Seen by Dr. Cornell. The patient's caregiver reports improvement in terms of pain and drainage associated with the chronic neck ulcers. They've been applying topical gentamicin as recommended for the chronic wound infections. 06/11/16. Seen by Dr. Cornell. The patient reports improvement in terms of pain and drainage associated with the chronic neck ulcers. She completed her course of ciprofloxacin which was treating the recurrent ulcer infections and she continues to apply topical gentamicin to the ulcer beds. 06/04/16. Seen by Dr. Cornell. The patient continues to report some pain and minimal drainage associated with the chronic neck ulcers are complicated by underlying soft tissue radiation injury. She was just discharged from the hospital for tracheobronchitis and continues on ciprofloxacin with cultures that have grown Pseudomonas, Staph, and Haemophilus. She does not report adverse side effects from antibiotics nor fevers or feeling unwell today although she continues to have a mild cough. 05/26/16. Seen by Finn Felton PA-C. The patient reports no increase in drainage or pain from her neck ulcers. 05/16/16. Seen by Dr. Cornell. The patient does not report significant pain nor drainage associated with the recurrent neck soft tissue radiation ulcers since her last visit. She's been applying topical gentamicin as recommended and wearing the silicon dressings to protect from the trach tube strap rubbing on the irradiated skin.Also, her wound culture from the last visit grew MSSA. 05/09/16. Seen by Dr. Cornell. The patient feels her recurrent soft tissue radiation ulcers over the mid and left aspects of her neck are painful and draining for the past week. She reports wearing her silicon dressing but does not have it in place all of the time and has been leaving her tracheostomy tube strap off for extended periods during the day to help prevent abrasion. She's been applying topical gentamicin to the ulcers but is not currently on systemic antibiotics. 04/29/16. Seen by Finn Felton PA-C. The patient reports continued compliance with her silicone skin protector that she wears under her collar. She reports improvement in her neck ulcers, however she ran out of supplies a few days ago and now reports worsening of the ulcers. 04/11/16. Seen by Dr. Cornell. The patient reports decreased pain and drainage associated with the chronic neck non-pressure ulcers over the patient week and she's applying topical gentamicin to treat the chronic MRSA wound infection as recommended. She's also using silicon dressings to help better protect the soft tissue radiation injury to the neck which is heavily implicated in the recurrent and refractory nature of the ulcers. 04/04/16. Seen by Dr. Cornell. The patient reports an increase in the size and pain associated with the left neck non-pressure ulcer since her last visit. She's applying gentamicin ointment to all of the ulcers a recommended and using the silicon dressings to help prevent abrasion caused by the trach tube strap. 03/28/16. Seen by Dr. Cornell. The patient reports decreased pain and drainage associated with the chronic neck non-pressure ulcers over the patient week and she's restarted use of the silicon dressings again to protect the irradiated skin that's been breaking down under the trach strap and contributing to the recurrent and refractory nature of the ulcers. 03/21/16. Seen by Dr. Cornell. The patient reports decreased pain and drainage associated with the chronic neck non-pressure ulcers over the patient week and she continues applying topical gentamicin to treat the chronic MRSA wound infection. 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 03/13/15. Seen by Dr. Cornell. The patient reports decreased pain and drainage associated with the chronic neck non-pressure ulcers over the patient week since starting on doxycycline for a recurrent MRSA wound infection. She's now using silicon dressings to protect the irradiated skin over the neck that resulted from radiation therapy treating laryngeal cancer. She does not report adverse effects of the doxycycline and is also applying topical gentamicin daily to the ulcer sites. 03/06/16. Seen by Dr. Cornell. The patient reports persistent pain associated with the recurrent neck non-pressure ulcers and staff report they're larger and are draining based on the dressings. 02/28/16. Seen by Dr. Cornell. The patient returns with new ulcers overlying her soft tissue radiation neck injury that resulted following treatment for laryngeal cancer. She states she ran out of the silicon dressings she uses to protect the area from her trach tube strap and after this the ulcers appeared and are quite painful. Their draining however she does not report fevers. 11/28/15. Seen by Dr. Cornell. 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 11/21/15. Seen by Dr. Cornell. The patient reports some minimal pain associated with the chronic neck soft tissue radiation ulcer since her last visit. She also complains of right ear pain and has asked me to have look in the ear as it feels like there may be a foreign body present. She also reports a mild cough, sore throat, and feeling a bit unwell in general. 11/14/15. Seen by Dr. Cornell. The patient reports moderate pain but no significant drainage associated with the left neck soft tissue radiation ulcer since her last visit. 10/31/15. Seen by Dr. Cornell. The patient reports some pain associated with the left neck soft tissue radiation ulcer but no increased drainage from either ulcer nor pain associated with the middle soft tissue radiation ulcer. Her caregiver notes that they're running out of the silicon dressings and they've become nearly prohibitively expensive. 10/12/15 Seen by Finn Felton PA-C. The patient returns to our clinic after reconstructive scar- revision surgery on her radiation damaged neck. She has wounds that have been left to close by secondary intention and are slow to heal. In addition, her silicone strips that help hold her laringostomy collar in place continue to work well for her. 09/07/[address] Cornell. The patient presents with a new rash over the right neck overlying the soft tissue radiation injury. Of note, her very chronic wounds at the same site were recently healed. She dose not report pain, drainage, or skin breakdown associated with the rash. 08/24/[address] Cornell. The patient does not report pain or drainage associated with the chronic neck soft tissue radiation ulcers over the past few days and she's using the silicon dressings to cover the ulcers. 08/15/[address] Cornell. The patient nor her caregiver report significant pain or drainage from either the left or right neck soft tissue radiation ulcers over the past week and she's received her silicon dressings that are being used to prevent abrasion to the skin caused by her laryngostomy tube strap. 08/09/[address] Cornell. 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 Otherwise the right neck ulcers remain relatively stable and have minimal drainage over the past week. 08/02/[address] Cornell. The patient reports minimal discomfort associated with the chronic neck soft tissue radiation ulcers and her caregiver feels they've improved considerably over the past week while applying gentamicin ointment and using the silicon dressing to prevent abrasion from the trach strap. 07/26/[address] Cornell. The patient reports only moderate discomfort and minimal drainage associate with her remaining soft tissue radiation ulcers of the neck. 07/19/[address] Cornell. The patient's caregiver reports increased drainage on the dressings covering the neck soft tissue radiation ulcers and the patient reports some increased pain at the ulcer sites. They're also running out of the silicon dressings they' ve been using to protect the ulcers from abrasion caused by the overlying trach strap. She does not report any problems regarding the chronic left upper arm wound. 07/12/[address] Cornell. The patient does not report increased pain or drainage associated with her chronic neck soft tissue radiation ulcers and she's been using her silicon wound dressings daily. She feels her ulcers are much less painful since changing to the new dressings. 07/05/[address] Cornell. The patient reports a significant improvement in pain regarding her chronic neck soft tissue radiation ulcers since starting to use adherent silicon dressings to prevent abrasion caused by her trach strap. She does not report significant drainage from the ulcers. 06/22/[address] Cornell. The patient continues to report persistent pain associated with the chronic neck soft tissue radiation ulcers. 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 06/12/15 Seen by Finn Felton PA-C. The patient reports continued pain from her radiation neck ulcers. 06/05/15 Seen by Finn Felton PA-C. The patient reports continued pain and stable drainage from her neck radiation ulcers. She continues to use her favored dressings instead of ones that we have recommended for her. 05/21/15 Seen by Finn Felton PA-C. The patient reports continued pain and no change in drainage from her neck radiation ulcers and her arm and chest wounds. 05/08/15 Seen by Finn Felton PA-C. The patient reports continued pain and stable drainage from her neck radiation ulcers. Flores from [facility] attended part of the appointment to try fitting her for the laryngectomy collar protective prosthetic. 04/25/[address] Cornell. The patient continues to report significant pain associated with the chronic soft tissue radiation neck ulcers and the staff report at least moderate drainage on her dressings today. She does not report fevers or feeling unwell otherwise. 04/11/[address] Cornell. The patient been on levofloxacin and doxycycline for Pseudomonas and MRSA positive wounds cultures taken from her soft tissue radiation ulcers over the neck and around the laryngostomy wound. She still reports pain associated with the ulcers but indicates it's not as bad as last week. 04/05/[address] Cornell. The patient reports persistent pain associated with her neck soft tissue radiation ulcers. She's currently on levofloxacin and doxycycline for the Pseudomonas and MRSA positive culture taken at the last visit and she does not report adverse side effects. 03/28/2015 Seen by Finn Felton PA-C. The patient continues to complain of neck ulcer pain. In addition she again asks today why are they hurting. She has not been compliant with any of our attempts at specialized laryngectomy collar padding or dressings. 03/21/2015 Seen by Finn Felton PA-C. The patient returns with stable 6-7/10 constant pain from the radiation ulcers on her neck. She continues on Doxycycline and has finished her course of prednisone for a URI as prescribed by her PCP. He has recently not been able to keep the Radiagel sheets attached to her neck or tracheostomy collar and has gone back to using Xeroform gauze. 02/19/15 Seen by Finn Felton PA-C. The patient returns for evaluation of her radiation ulcers of the neck. She reports continued pain and her most recent dressings that we have trialed did not stay in place. 02/12/15 Seen by Finn Felton PA-C. The patient reports continued neck pain from her radiation ulcers as well as tightness in her surrounding neck tissues. She reports the pain is exacerbated by rubbing of her tracheostomy tube macias and by any palpation or instrumentation. Drainage has been minimal. 02/05/15 Seen by Finn Felton PA-C. The patient presents today with a new wound on her left lateral neck, on her irradiated tissue. This wound is 01/24/[address] Cornell. The patient reports a cough and feeling unwell the past few days. She continues on doxycycline and levofloxcacin for the recent MRSA and Pseudomonas positive wound culture. Of note, she arrives today with gauze dressings over her next ulcers as opposed to foam which has been recommended. 01/17/[address] Cornell. The patient's been started on doxycycline and levofloxacin for her wound culture from the last visit that grew MRSA again plus Pseudomonas which is new. She reports having a cough and low grade fever also and the staff report the left neck ulcer dressings as being quite wet. 01/12/[address] Cornell. The patient indicates the neck ulcer pain is a 6-7/ 10 today and states she's been adhering to our dressing change recommendations. She's not currently on antibiotics and does not report fever although she feels a bit under the weather. 01/05/[address] Cornell. The patient complains of 4/10 pain at the site of her remaining chronic neck ulcers. 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 12/18/14 Seen by Finn Felton PA-C. The patient continues to have difficulty securing her dressings and keeping them in place under her tracheostomy collar. She is planning on going deer hunting and will be away from our clinic for over 1 week. 12/12/[address] Cornell. The patient complains of significant right ear pain. Her left neck ulcer culture from the last visit grew MRSA and she's not currently on antibiotics at this time. Of note, the foam that we placed around the tracheostomy tube to prevent abrasion was not in place on the patient's arrival today. 12/08/[address] Cornell. The patient complains of some persistent pain at the site of the left neck ulcer but does not report fever or increased drainage. Of note, she's not changed her dressing since her last visit 3 days ago. 11/28/14 Seen by Finn Felton PA-C. The patient again reports right ear pain without drainage or disturbance in hearing. The dressing on her head wound has stayed in place and her neck dressings lasted less than 24hrs in place. Scalp wound pain has decreased. 11/28/14 Seen by Finn Felton PA-C. The patient has seen her PCP for her right ear issues and he has prescribed her Cefuroxime, which she is currently taking. She has kept her scalp dressing in place and reports continued neck pain and a new neck wound on the left. 11/14/14 Seen by Finn Felton PA-C. The patient's right sided neck wound and scalp wound are much improved today after she has been keeping her head wound covered and has loosened her trach collar. Both wounds are reportedly less painful than before. 11/07/14 Doc Z Surg: patient returns for follow-up of the radiation injury and mechanical abrasions wounds of the neck laterally and anteriorly adjacent to the tracheostomy straps which appear to have been chafing on this sensitive skin in the field of radiation. The padded protective dressing has been utilized since her last visit and shows marked improvement in all of the wounds. Also the scalp abrasions which appear to be fingernail scrapings have also improved markedly after the patient educated to avoid fingernails scratching on the scalp area. Question was raised regarding the possibly poor fitting tracheostomy tube but this appears normal and not problematic to my examination. At present I do not see any need for ENT reevaluation of the [id number] tracheostomy site. 10/26/[address] Cornell. The patient complains of recurrent right ear pain that's constant over the past week but does not report fever, sweats, or drainage from the ear. Her wound cultres from the scalp and neck ulcers grew MRSA on 10/04/14. She continues to report pain at these sites and has been unable to maintain dressings as recommended due to discomfort and the fact the scalp dressing falls off. 10/12/14 Seen by Finn Felton PA-C. The patient reports ear pain after completing HBOT. Her wounds still feel tight around her neck but are otherwise stable and more comfortable with her new foam neck dressings. 10/04/[address] Cornell. The patient feels the pain associated with her neck and scalp ulcers is improved and only noticeable intermittently. She arrived today with foam dressings over the neck ulcers which we started utilizing last week to minimize trauma from the tracheostomy tube harness to the skin and ulcers beneath. 09/27/[address] Cornell. The patient feels her neck ulcers and scalp wounds are less painful however the staff report that the dressing plan we implemented to help prevent abrasion to the neck ulcers does not seem to have been continued after the patient left clinic last week. She's now off of antibiotics and does not report increased drainage. 09/20/[address] Cornell. The patient feels her scalp and neck ulcer pain are improving since she's been on IV daptomycin. She also had a doppler study yesterday that rule out a left arm DVT however she still complains of swelling and discomfort in the arm. 09/06/[address] Cornell. The patient complains of continued pain and drainage associated with her scalp and neck ulcers. She's no longer on antibiotics and recently grew Enterococcus and resistant coag negative Staph from the ulcer sites respectively. 08/30/[address] Cornell. The patient reports continued pain at the neck and scalp ulcers and her scalp wound grew Enterococcus on 08/23/14. She's taking clindamycin and completed a course of azithromycin that were started in the ER due to a recurrent URI. 08/16/14 Seen by Finn Felton PA-C. The patient continues to take Keflex for her scalp wound bacterial infection. She reports it is now more painful and draining more than before. Her neck radiation wounds continue to feel tight. 08/14/14 Seen by Finn Felton PA-C. The patient complains of right ear pain and fullness which started today. She reports feeling like she might have a cold coming on. 08/09/[address] Cornell. The patient complains of persistent pain at the site of the neck ulcers and worsening pain at the scalp ulcer. She's taking doxycycline based on the most recent MSSA wound culture sensitivities from the neck ulcer and does not report any adverse side effects. 07/08/[address] Cornell. The patient feels the neck ulcer pain is improving and she's completed her course of doxycycline that was started last week. She still complains of significant pain a the site of the scalp lesion however. Her wound culture from 07/28 grew MSSA sensitive to doxycycline. 07/26/[address] Cornell. The patient complains of increased pain at the neck ulcers as well as the scalp lesion. She does not report increased drainage, fever, cough, or chills and states her previously reported right ear pain has improved. 07/14/[address] Cornell. The patient reports right ear pain with a sore throat but no fevers or cough. 07/11/14 Seen by Finn Felton PA-C. The patient reports less scalp pain and no drainage from her scalp wound. She continues to report a pulling type pain in and around her neck wounds. 07/04/14 Seen by Finn Felton PA-C. The patient has cut her fingernails short and reports that her scalp wound is hurting and itching less. She reports a new wound over an old abdominal scar today. It has been present for 5 days and she is not sure how it occurred. 06/20/14 The patient feels her neck ulcer pain as well as the scalp lesion pain have improved since starting doxycycline. She continues to apply hydrogel and Xeroform to the neck ulcers to keep them moist. Otherwise she's tolerating HBOT without difficulty and has made significant progress in the healing of the neck ulcers throughout this most recent series of dives. 06/13/14 The patient indicates that her neck ulcers 'feel tight' and she still has some discomfort at the scalp lesions. She also complains of significant pruritis in the area of the scalp lesions. She's been taking taking doxycycline for the past week to treat a MRSA positive culture of the scalp ulcer. 06/06/14 The patient reports continued pain from all of her wounds and frustration that her scalp wound has not healed despite her not scratching it. 05/31/14 The patient's here for HBOT today but complains of new left facial pain over the angle of the mandible that started yesterday. She does not complain of ear pain or an dental or intraoral pain but has been treated in the hospital recently for recurrent pneumonia. She's also been reviewed in the past 3 months by her oncologist and reportedly is cancer free. 05/30/14 The patient does not report increased pain or drainage from her neck wounds nor scalp lesion. 05/18/14 The patient complains of significant pain at the left 3rd finger wound as well as her chronic scalp wound. Otherwise she does not report significant pain nor drainage from the neck wounds. 05/12/14 The patient does not report increased pain or drainage from her neck ulcers nor the wound on the scalp. 05/04/14 The patient reports increased pain at the left neck wound and apparently the barrier dressing slipped down and her guaze became adherent resulting in a skin tear upon removal. Otherwise she continues to complain of pain at both neck wounds and the scalp wound. 05/02/14 The patient was seen today in the HBOT treatment room for complaints of a productive cough. She was recently discharged from the hospital with a diagnosis of tracheobronchitis and is finishing a course of Levaquin. Cough is described as yellow and thick and is difficult to clear from her tracheostomy. 04/21/14 The patient complains of persistent ear pain in the right ear despite using antibiotic drops Rx'd by her ENT provider last week. She does not report drainage or fever. 04/18/14 The patient states her cough is improving and she's still on antibiotics from her recent admission for pneumonia. She does not report increased drainage or pain from the neck ulcers but states her right ear pain has returned. She was seen by ENT who felt the lesion in the external canal was traumatic and she was given an Rx for ear drops which she states she's been using. She also reports recurrence of the painful left scalp wound that was recently healed. 04/11/14 The patient complains of a cough productive of green sputum for the past few days that's particularly worse when lying flat. She indicates that she feels generally unwell and weak and is questioning whether she can tolerate HBOT today. 04/05/14 The patient continues to complain of right ear pain however does not report bleeding from the ear today. Of note, she was reviewed for this problem last week and a shallow ulcer in the right external ear canal was the only finding. 03/30/14 The patient reports continued 5/10 pain from her neck wound which is described as a constant, pulling type pain, which is exacerbated by flexing, extending or rotating her neck. 03/29/14 The patient completed her HBOT dive today and now complains of blood draining from the right ear. She does not report pain now nor during the dive today. 03/23/14 The patient reports increased pain from her medial neck wounds as well as from her scalp wound. The pain is described as a throbbing and sometimes pulling pain that is constant in nature and has no exacerbating factors, nor is it associated with any activity. She does not report fever, chills or increased wound drainage. Additionally the patient reports her [facility] doctors are considering a reconstructive surgical revision of her neck once her current wounds heal. She brings with her today a note from her [facility] doctors on a prescription pad, on which is written Please continue hyperbaric oxygen therapy. 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/14) Ear pain (right side; recurrent) Chronic ulcer (scalp; Enterococcus positive culture on 08/23/14; MRSA positive on 10/04/14) Complaints and Symptoms This information was obtained from the patient Patient complains of: General Notes: I have reviewed and concur with the Review of Systems and Past Family Social History documents completed by the clinician, I have reviewed and concur with the Wound Assessment document completed by the clinician Ear/Nose/Mouth/Throat: Ear Pain Integumentary (Hair/Skin/Nails): Open Sore Musculoskeletal: Deformities, Muscle Weakness Prior Wound History: Bleeding, Drainage, Erythema, Pain Respiratory: Cough Patient denies complaints or symptoms related to: Cardiovascular (Central): Irregular heart beat Constitutional Symptoms (General Health): Chills, Fever, Marked Weight Change Ear/Nose/Mouth/Throat: Hearing Loss / Aid Gastrointestinal (GI): Nausea / Vomiting, Stomach/abdominal pain Hematologic/Lymphatic: Bleeding / Clotting Disorders, Bleeding Tendency Neurological: Loss of Protective Sensation Prior Wound History: Malodor Respiratory: Oxygen Use, Shortness of Breath Additional Information Does patient have a history of Cancer? Yes? Complete all questions.: Yes Location of Cancer: Neck Patient underwent Radiation Treatment? If yes, answer question below.: Yes OBJECTIVE Constitutional Vital signs reviewed and noted. Well developed. Alert. Clean appearing.. Height/ Length: 66 in (167.64 cm), Weight: 229.4 lbs (104.27 kgs), BMI: 37, Temperature: 97.3 ?F ( 36.28 ?C), Pulse: 80 bpm, Respiratory Rate: 16 breaths/min, Blood Pressure: 113/69 mmHg, Pulse Oximetry: 93 %. Neck: Chronic skin contractures stable. Respiratory: No respiratory distress. Even respirations and without use of accessory muscles.. Integumentary (Hair, Skin) No periwound erythema, warmth, or significant drainage. No periwound rashes appreciated or noted otherwise.. Refer to appropriate clinician wound documentation for this visit; anterior mid neck ulcer extends to subcut and extends along a chord of scar tissue adjacent and right of the tracheostomy site; left neck ulcer now extends to subcut. Wound #36 Right, Proximal Neck is an acute Full Thickness Radiation Wound and has received a status of Not Healed. Subsequent wound encounter measurements are 8cm length x 1.2cm width x 0.1cm depth, with an area of 9.6 sq cm and a volume of 0.96 cubic cm. There is a moderate amount of serosanguineous drainage noted which has no odor. The patient reports a wound pain of level 7/10. The wound margin is attached. Wound bed has No epithelialization, No eschar, Yes slough, Yes bright red, pink, firm granulation. The periwound skin moisture is normal. The periwound skin did not exhibit: Brawny Induration, Edema, Excoriation, Induration, Callus, Crepitus, Fluctuance, Friable, Rash, Atrophie Melissa, Cyanosis, Ecchymosis, Erythema, Hemosiderosis, Pallor, Rubor. The temperature of the periwound skin is WNL. Periwound skin does not exhibit signs or symptoms of infection. Local Pulse is N/A. 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 Subsequent wound encounter measurements are 1.2cm length x 1.1cm width x 0.1cm depth, with an area of 1.32 sq cm and a volume of 0.132 cubic cm. There is a moderate amount of serosanguineous drainage noted which has no odor. The patient reports a wound pain of level 4/10. The wound margin is attached. Wound bed has No epithelialization, No eschar, No slough, No granulation. The periwound skin texture is normal. The periwound skin moisture is normal. The periwound skin color is normal. The temperature of the periwound skin is WNL. Periwound skin does not exhibit signs or symptoms of infection. Local Pulse is N/A. Neurological: Cranial nerves grossly intact with symmetric function normal by informal observation.. 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 A skin/ subcutaneous tissue level surgical debridement with a total area debrided of 9.6 sq cm was performed by Duy Cornell MD. Subcutaneous was removed along with devitalized tissue: exudate and slough. The following instrument(s) were used: curette. Pain control was achieved using 4% Lido. A time out was conducted prior to the start of the procedure. A minimal amount of bleeding was controlled with pressure. The procedure was tolerated well with a pain level of 0 throughout and a pain level of 0 following the procedure. Post Debridement Measurements: 8cm length x 1.2cm width x 0.1cm depth; with an area of 9.6 sq cm and a volume of 0.96 cubic cm; Wound #50 Wound #50 (Radiation Wound) is located on the left neck. A skin/subcutaneous tissue level surgical debridement with a total area debrided of 1.32 sq cm was performed by Duy Cornell MD. Subcutaneous was removed along with devitalized tissue: exudate and slough. The following instrument(s) were used: curette. Pain control was achieved using 4% Lido. A time out was conducted prior to the start of the procedure. A minimal amount of bleeding was controlled with pressure. The procedure was tolerated well with a pain level of 0 throughout and a pain level of 0 following the procedure. Post Debridement Measurements: 1.2cm length x 1.1cm width x 0.1cm depth; with an area of 1.32 sq cm and a volume of 0.132 cubic cm; Additional Information Muscle fascia or bone removed and sent to pathology?: No Muscle fascia or bone removed and sent to pathology?: No PLAN Wound Orders: Wound #36 Right, Proximal Neck Anesthetic Topical Xylocaine to wound bed. Cleanser Cleanse Wound: - Distilled water. Dressings Primary dressing: - Hydrofera Blue ready cut to fit next to trach site Cover and secure with: - secure with DuoDerm Change Dressing: - Every 3 days. Scribing Attestation I attest, as the nurse, that I scribed these orders for the physician. Wound #50 Left Neck Anesthetic Topical Xylocaine to wound bed. Cleanser Cleanse Wound: - Distilled water. Dressings Primary dressing: - Crusting technique Cover and secure with: - DuoDerm Change Dressing: - Leave in place; we will remove next visit Scribing Attestation I attest, as the nurse, that I scribed these orders for the physician. Additional Orders: Anesthetic Topical Xylocaine to wound bed. Follow-Up Appointments Return Appointment: - - 1 week Other information: If you develop fever, chills, increased pain, drainage, redness or swelling please call our office. If after hours, respond to the ER. Should you experience any significant changes in your wound(s) or have any questions regarding your home care instructions please contact the wound center @ [phone]. If after hours, contact your primary care physician or go to the hospital emergency room. I've reviewed the clinician's documentation and agree with the evaluation and plan as written. In addition the patient's ulcers demonstrate evidence of non-viable devitalized tissue and they will continue to benefit from sharp debridement to help promote granulation and expedite healing. Electronic Signature(s) Signed By: Date: Duy Cornell MD 01/01/2018 07:29:40 Entered By: Duy Cornell on 01/01/2018 07:25:52
== END ==
PROVIDERS: PCP Internal Medicine; Visit Provider Internal Medicine
DX: L98.492 Non-pressure chronic ulcer of skin of other sites with fat layer exposed (principal); S11.89XA Other open wound of other specified part of neck, initial encounter; L59.8 Other specified disorders of the skin and subcutaneous tissue related to radiation
CPT/HCPCS: 11042

== ENCOUNTER 2018-01-04 14:00 | Inpatient (IN) | payer OTHER, MEDICAID, SELFPAY ==
[2017-09-21 21:10] VITALS: BMI 32.3
[2018-01-04] VITALS (17 sets, daily range): BP systolic 98–171; BP diastolic 44–98; PULSE 77–89; RESP 16–28; TEMP 36.5–37; O2SAT 85–100; BMI 38.9
--- NOTE | 2018-01-04 14:10 | DI.RAD.S_ITS ---
PROCEDURE: XR CHEST 1V INDICATIONS: Perfused green sputum production TECHNIQUE: One view of the chest was acquired. COMPARISON: [facility], CT, CT SOFT TISSUE NECK W CON, 11/04/2017, 11:41. [facility], CR, XR CHEST 1V, 11/04/2017, 10:40. FINDINGS: Surgical changes and devices: Clips are present overlying the lower neck. Shadows are noted overlying the neck likely tracheostomy. Lungs and pleura: Increased pulmonary vascularity is present. There is trace blunting of the left costophrenic angle. Mediastinum: Mediastinal contours appear normal. Heart size is normal. Bones and chest wall: No suspicious bony lesions. Overlying soft tissues appear unremarkable. IMPRESSION: Mild increased vascularity suggestive of edema with trace left effusion. Dictated by: Shahnaz Paulson M.D. on 01/04/2018 at 14:44 Approved by: Shahnaz Paulson M.D. on 01/04/2018 at 14:46
--- NOTE | 2018-01-04 14:13 | ED.SOB ---
HPI - SOB/Dyspnea General Chief Complaint: Upper Respiratory Symptoms Stated Complaint: Respiratory Distress Time Seen by Provider: 01/04/18 14:07 Source: patient and EMS Mode of arrival: EMS Limitations: other (Trach) History of Present Illness Patient is a 57-year-old female who I evaluated here in the emergency department in the past. Patient has a trach in place and secondary to that she has to write everything that she would like to express to people. Patient is stating through writing that for the past couple days she has had a productive thick yellow sputum. EMS reports that when they arrived to their house they did suction her slightly and did get thick sputum. Patient states she does not feel very good. She did receive a DuoNeb by EMS on route to the emergency department which the patient states only slightly improved her symptoms. She was also complaining of vague abdominal pain and green stool over the past 2 days. Patient also with complaints of pain around the her trach stoma Related Data Home Medications Medication Instructions Recorded Confirmed albuterol sulfate 1 dose INHALATION QIDP PRN #180 01/25/16 01/04/18 docusate sodium 100 mg PO BID #0 01/25/16 01/04/18 ferrous gluconate 324 mg PO QDAY #0 08/28/16 01/04/18 omeprazole 20 mg PO QDAY #0 08/28/16 01/04/18 acetaminophen 650 mg PO Q6HP PRN #0 10/29/16 01/04/18 amitriptyline 25 mg PO HS #0 01/22/17 01/04/18 ascorbic acid (vitamin C) 500 mg PO QDAY #0 06/10/17 01/04/18 fexofenadine 180 mg PO QDAY #0 06/10/17 01/04/18 nystatin 1 dose PO DIRECTED #0 06/10/17 01/04/18 sodium chloride 0.9 % 1 vial QID PRN #0 06/10/17 01/04/18 citalopram 40 mg PO DAILY 09/21/17 01/04/18 estradiol 2 mg PO DAILY 09/21/17 01/04/18 lisinopril 10 mg PO DAILY 09/21/17 01/04/18 tramadol 50 mg PO Q6HP PRN 09/21/17 01/04/18 levothyroxine 1 tab PO DAILY 01/04/18 01/04/18 Allergies Allergy/AdvReac Type Severity Reaction Status Date / Time hydrocodone Allergy Intermediate RASH/HIVES Verified 01/04/18 14:30 Penicillins Allergy Intermediate RASH/HIVES Verified 01/04/18 14:30 metronidazole Allergy Mild RASH Verified 01/04/18 14:30 acetaminophen [ACETAMINOPHEN] Allergy Unknown GI UPSET Verified 01/04/18 14:30 diphenhydramine Allergy Unknown Verified 01/04/18 14:30 [DIPHENHYDRAMINE] ibuprofen Allergy Unknown Verified 01/04/18 14:30 oxycodone [OXYCODONE] Allergy Unknown Verified 01/04/18 14:30 venom-wasp Allergy Verified 01/04/18 14:30 ranitidine AdvReac Intermediate SOB/DIZZY Verified 01/04/18 14:30 sulfamethoxazole AdvReac Mild GI UPSET Verified 01/04/18 14:30 [From Bactrim] trimethoprim [From Bactrim] AdvReac Mild GI UPSET Verified 01/04/18 14:30 fentanyl [FENTANYL] AdvReac Unknown vomiting Verified 01/04/18 14:30 ANTACIDS AdvReac Unknown Uncoded 01/04/18 14:30 Review of Systems Constitutional Denies fever(s) Cardiovascular Reports chest pain and Reports dyspnea Respiratory Reports cough, Reports excessive phlegm production, Reports pain with cough and Reports dyspnea Gastrointestinal Gastrointestinal: Reports abdominal pain, Reports diarrhea, Denies nausea and Denies vomiting Musculoskeletal Denies myalgias and Denies arthralgias Integumentary/Breasts Denies rash Psychiatric Reports anxiety [facility] Social History household members: significant other Smoking Status: Former smoker alcohol intake: former Exam Initial Vital Signs Initial Vital Signs: Vital Signs Temperature 98.6 F 01/04/18 14:18 Pulse Rate 83 01/04/18 14:18 Respiratory Rate 24 01/04/18 14:18 Blood Pressure 153/88 H 01/04/18 14:18 Pulse Oximetry 95 01/04/18 14:18 Const General: anxious Orientation: alert, awake and oriented x3 HENMT Head: normal to inspection and normocephalic Neck Other: Trach stoma in place wound care dressings placed around the area. No surrounding erythema. Resp Effort & Inspection: not labored, no retractions and tachypneic Auscultation: rhonchi and wheezes Cardio Rate: regular rate Rhythm: regular rhythm Pulses: radial pulses present GI Inspection: non-distended Palpation: soft Skin Lesions: no lesions Rashes: no rashes Neuro General: alert, awake and oriented x3 Extrem General: capillary refill normal Psych Appearance: grossly normal and well kempt Course Orders Ordered: ED Orders 01/04/18 14:10 XR chest 1V Stat 01/04/18 14:12 EKG-12 Lead Stat 01/04/18 15:00 B Type Natriuretic Peptide Stat Blood Culture Stat Complete Blood Count AUTO DIFF Stat Comprehensive Metabolic Panel Stat Influenza A and B by PCR Rapid Stat Lactate (Lactic Acid) Stat Lipase Stat Troponin I Stat 01/04/18 15:06 CT abdomen pelvis w con Stat 01/04/18 15:44 Procalcitonin Stat 01/04/18 17:58 Sputum Culture Stat Sodium Chloride (Normal Saline 0.9%) 1,000 mls @ 125 mls/hr IV CONT DAMARIS Last Admin: 01/04/18 14:31 Dose: 125 mls/hr Levofloxacin (Levaquin) 750 mg in 150 mls @ 100 mls/hr IV NOW ONE Stop: 01/04/18 19:24 Discontinued Medications Albuterol/Ipratropium (Duoneb) 3 ml INH NOW ONE Stop: 01/04/18 14:08 Last Admin: 01/04/18 14:47 Dose: 3 ml Hydromorphone HCl (Dilaudid) 1 mg IV NOW ONE Stop: 01/04/18 16:40 Last Admin: 01/04/18 16:49 Dose: 1 mg Morphine Sulfate (Morphine) 4 mg IV NOW ONE Stop: 01/04/18 15:05 Last Admin: 01/04/18 15:11 Dose: 4 mg Vital Signs - 8 hr 01/04/18 14:18 01/04/18 14:21 01/04/18 14:48 Temperature 98.6 F Pulse Rate 83 Respiratory Rate 24 Blood Pressure 153/88 H Blood Pressure [Left Arm] Pulse Oximetry 95 99 99 01/04/18 14:57 01/04/18 15:30 01/04/18 15:42 Temperature Pulse Rate 79 89 Respiratory Rate 18 22 28 H Blood Pressure Blood Pressure [Left Arm] 126/48 L 122/95 H Pulse Oximetry 93 99 85 L 01/04/18 15:44 01/04/18 17:05 Temperature Pulse Rate 87 Respiratory Rate 22 Blood Pressure Blood Pressure [Left Arm] 118/61 Pulse Oximetry 99 100 MDM - SOB/Dyspnea Medical Records Attestation: I reviewed the patient's medical records. Lab Data Attestation: I reviewed the patient's lab results. Result diagrams: 01/04/18 15:00 01/04/18 15:00 Lab Results 01/04/18 01/04/18 01/04/18 Range/Units 15:00 15:00 15:00 WBC 9.4 (4.5-11.0) X10^3/uL RBC 4.25 (4.0-5.2) X10^6/uL Hgb 13.1 (12.0-16.0) g/dL Hct 38.7 (36-46) % MCV 91.2 (80-100) fL MCH 30.9 (26-34) PG MCHC 33.9 (30-36) % RDW 13.4 (11.6-14.8) % Plt Count 324 (150-400) X10^3/uL Neut % (Auto) 72.0 (50-75) % Lymph % (Auto) 15.8 L (25-40) % Mccormick % (Auto) 8.0 (3-14) % Eos % (Auto) 3.4 (2-4) % Baso % (Auto) 0.8 (0-2) % Neut # (Auto) 6800 H (7955-5396) /uL Sodium 141 (137-145) mmol/L Potassium 3.9 (3.4-5.1) mmol/L Chloride 102 (98-107) mmol/L Carbon Dioxide 28 (22-32) mmol/L BUN 13 (7-17) mg/dL Creatinine 0.60 (0.52-1.04) mg/dL Estimated GFR > 60.0 (>60) mL/min BUN/Creatinine Ratio 21.7 (6-22) Glucose 90 (70-100) mg/dL Lactate 1.3 (0.7-2.1) mmol/L Calcium 8.5 (8.4-10.2) mg/dL Total Bilirubin 0.3 (0.2-1.3) mg/dL AST 22 (14-36) IU/L ALT 23 (9-52) IU/L Alkaline Phosphatase 68 (38-126) U/L Troponin I (0.01-0.034) ng/mL B-Natriuretic Peptide 87.1 (<100) Total Protein 6.6 (6.3-8.2) g/dL Albumin 3.9 (3.5-5.0) g/dL Globulin 2.7 (1.7-4.1) g/dL Albumin/Globulin Ratio 1.4 (1.0-2.8) Lipase (23-300) U/L Procalcitonin (<0.5) ng/mL Influenza A & B (PCR) (Negative) 01/04/18 01/04/18 01/04/18 Range/Units 15:00 15:00 15:00 WBC (4.5-11.0) X10^3/uL RBC (4.0-5.2) X10^6/uL Hgb (12.0-16.0) g/dL Hct (36-46) % MCV (80-100) fL MCH (26-34) PG MCHC (30-36) % RDW (11.6-14.8) % Plt Count (150-400) X10^3/uL Neut % (Auto) (50-75) % Lymph % (Auto) (25-40) % Mccormick % (Auto) (3-14) % Eos % (Auto) (2-4) % Baso % (Auto) (0-2) % Neut # (Auto) (2929-5708) /uL Sodium (137-145) mmol/L Potassium (3.4-5.1) mmol/L Chloride (98-107) mmol/L Carbon Dioxide (22-32) mmol/L BUN (7-17) mg/dL Creatinine (0.52-1.04) mg/dL Estimated GFR (>60) mL/min BUN/Creatinine Ratio (6-22) Glucose (70-100) mg/dL Lactate (0.7-2.1) mmol/L Calcium (8.4-10.2) mg/dL Total Bilirubin (0.2-1.3) mg/dL AST (14-36) IU/L ALT (9-52) IU/L Alkaline Phosphatase (38-126) U/L Troponin I < 0.012 (0.01-0.034) ng/mL B-Natriuretic Peptide (<100) Total Protein (6.3-8.2) g/dL Albumin (3.5-5.0) g/dL Globulin (1.7-4.1) g/dL Albumin/Globulin Ratio (1.0-2.8) Lipase 83 (23-300) U/L Procalcitonin (<0.5) ng/mL Influenza A & B (PCR) Negative (Negative) 01/04/18 Range/Units 15:44 WBC (4.5-11.0) X10^3/uL RBC (4.0-5.2) X10^6/uL Hgb (12.0-16.0) g/dL Hct (36-46) % MCV (80-100) fL MCH (26-34) PG MCHC (30-36) % RDW (11.6-14.8) % Plt Count (150-400) X10^3/uL Neut % (Auto) (50-75) % Lymph % (Auto) (25-40) % Mccormick % (Auto) (3-14) % Eos % (Auto) (2-4) % Baso % (Auto) (0-2) % Neut # (Auto) (8504-6162) /uL Sodium (137-145) mmol/L Potassium (3.4-5.1) mmol/L Chloride (98-107) mmol/L Carbon Dioxide (22-32) mmol/L BUN (7-17) mg/dL Creatinine (0.52-1.04) mg/dL Estimated GFR (>60) mL/min BUN/Creatinine Ratio (6-22) Glucose (70-100) mg/dL Lactate (0.7-2.1) mmol/L Calcium (8.4-10.2) mg/dL Total Bilirubin (0.2-1.3) mg/dL AST (14-36) IU/L ALT (9-52) IU/L Alkaline Phosphatase (38-126) U/L Troponin I (0.01-0.034) ng/mL B-Natriuretic Peptide (<100) Total Protein (6.3-8.2) g/dL Albumin (3.5-5.0) g/dL Globulin (1.7-4.1) g/dL Albumin/Globulin Ratio (1.0-2.8) Lipase (23-300) U/L Procalcitonin < 0.05 (<0.5) ng/mL Influenza A & B (PCR) (Negative) Imaging Data Chest x-ray: Radiologist's impression: PROCEDURE: XR CHEST 1V INDICATIONS: Perfused green sputum production TECHNIQUE: One view of the chest was acquired. COMPARISON: [facility], CT, CT SOFT TISSUE NECK W CON, 11/04/2017, 11:41. [facility], CR, XR CHEST 1V, 11/04/2017, 10:40. FINDINGS: Surgical changes and devices: Clips are present overlying the lower neck. Shadows are noted overlying the neck likely tracheostomy. Lungs and pleura: Increased pulmonary vascularity is present. There is trace blunting of the left costophrenic angle. Mediastinum: Mediastinal contours appear normal. Heart size is normal. Bones and chest wall: No suspicious bony lesions. Overlying soft tissues appear unremarkable. IMPRESSION: Mild increased vascularity suggestive of edema with trace left effusion. Dictated by: Shahnaz Paulson M.D. on 01/04/2018 at 14:44 Approved by: Shahnaz Paulson M.D. on 01/04/2018 at 14:46 CT scan - abdomen: Radiologist's impression: PROCEDURE: CT ABDOMEN PELVIS W CON INDICATIONS: Left-sided abdominal pain TECHNIQUE: After the administration of intravenous contrast, 5 mm thick sections acquired from the diaphragm to the symphysis. 5 mm coronal and sagittal reformats were acquired. For radiation dose reduction, the following was used: automated exposure control, adjustment of mA and/or kV according to patient size. COMPARISON: [facility], CT, ABDOMEN/PELVIS WITH CONTRAST, 01/22/2017, 18:26. [facility], CT, ABDOMEN/PELVIS WITH CONTRAST, 10/29/2016, 14:46. FINDINGS: Image quality: Excellent. ABDOMEN: Lung bases: Lung bases are clear. Heart size is normal. Solid organs: Liver is normal in size and enhancement. Gallbladder appears normal except for the presence of radiolucent gallstones measuring up to approximately 1.2 cm in diameter. Biliary system is non dilated. Pancreas enhances normally. Spleen is normal in size and enhancement. No adrenal nodules. Kidneys demonstrate normal size and enhancement, without hydronephrosis. Peritoneum and bowel: Bowel loops demonstrate normal wall thickness and caliber. No free fluid or air. Nodes and vessels: No retroperitoneal or mesenteric adenopathy by size criteria. Aorta and inferior vena cava are normal in size. Miscellaneous: No ventral hernias containing bowel but there is a fat containing small hernia through a defect of the exact midline supraumbilical body wall containing a small portion of the omentum show no evidence of incarceration or strangulation.. PELVIS: Genitourinary: Bladder wall thickness is normal. Prior hysterectomy. Miscellaneous: No inguinal hernias or adenopathy. Extensive diverticulosis is present along the colon best seen in the descending colon and sigmoid bowel at the junction of those 2 areas of the left colon there is mild edema in the pericolonic fat consistent with mild acute diverticulitis without peridiverticular abscess. Bones: No suspicious bony lesions. No vertebral body compression fractures. IMPRESSION: Extensive diverticulosis over the descending colon and avoid colon with mild acute diverticulitis at the left lower quadrant junction of the vwyjdaidmq-tu-exqhehy bowel. No peridiverticular abscess is associated. Normal appearing gallbladder, except for presence of at least one and possibly more gallstones that are radiolucent and faintly visualized by CT, at the dependent margin of the gallbladder lumen. A small fat-containing omental hernia extends through a body wall defect just above the umbilicus, best seen centered on series 3 image 43 without definite evidence of incarceration or strangulation. Dictated by: Rashi Cornejo M.D. on 01/04/2018 at 16:03 Approved by: Rashi Cornejo M.D. on 01/04/2018 at 16:06 ECG Data Attestation: I personally reviewed and interpreted this ECG as follows: Prior ECG tracings: not available for review Interpretation: Sinus rhythm Ventricular rate 80 for Normal axis Normal QRS Normal QTC Nonspecific ST T wave changes MDM Narrative Medical decision making narrative: Patient does have copious amounts of sputum coming from the stoma requiring multiple suctioning. Does not have an elevated white blood cell count however has subjective fevers. Given her respiratory status and needing the stoma I do feel that a COPD exacerbation is not unreasonable. We will start the patient on Levaquin. The patient also has diverticulitis. Has a relatively benign abdominal exam. CT scan shows no signs of abscesses. Patient is allergic to Flagyl. Given the uncomplicated nature of the diverticulitis will start with just given the patient Levaquin. I feel that given her copious amounts of respiratory sputum and also her degraded respiratory status and needing the trach that admission to the hospital is warranted for observation. I discussed the admission with the patient who expressed understanding and agreement. I discussed the case with Dr. August who will admit the patient for continued evaluation treatment. Discharge Plan Departure Patient Disposition: Admitted as Observation Clinical Impression: COPD (chronic obstructive pulmonary disease), Diverticulitis
[2018-01-04] MEDS: SODIUM CHLORIDE 0.9% 1,000 ML 125 ML IV (14:31)
[2018-01-04] MEDS: ALBUTEROL/IPRATROPIUM 3 ML AMPUL INH ×2 (14:47→20:00)
--- NOTE | 2018-01-04 14:56 | PC.NURSE ---
pain to IV site
--- NOTE | 2018-01-04 15:06 | DI.CT.S_ITS ---
PROCEDURE: CT ABDOMEN PELVIS W CON INDICATIONS: Left-sided abdominal pain TECHNIQUE: After the administration of intravenous contrast, 5 mm thick sections acquired from the diaphragm to the symphysis. 5 mm coronal and sagittal reformats were acquired. For radiation dose reduction, the following was used: automated exposure control, adjustment of mA and/or kV according to patient size. COMPARISON: [facility], CT, ABDOMEN/PELVIS WITH CONTRAST, 01/22/2017, 18:26. [facility], CT, ABDOMEN/PELVIS WITH CONTRAST, 10/29/2016, 14:46. FINDINGS: Image quality: Excellent. ABDOMEN: Lung bases: Lung bases are clear. Heart size is normal. Solid organs: Liver is normal in size and enhancement. Gallbladder appears normal except for the presence of radiolucent gallstones measuring up to approximately 1.2 cm in diameter. Biliary system is non dilated. Pancreas enhances normally. Spleen is normal in size and enhancement. No adrenal nodules. Kidneys demonstrate normal size and enhancement, without hydronephrosis. Peritoneum and bowel: Bowel loops demonstrate normal wall thickness and caliber. No free fluid or air. Nodes and vessels: No retroperitoneal or mesenteric adenopathy by size criteria. Aorta and inferior vena cava are normal in size. Miscellaneous: No ventral hernias containing bowel but there is a fat containing small hernia through a defect of the exact midline supraumbilical body wall containing a small portion of the omentum show no evidence of incarceration or strangulation.. PELVIS: Genitourinary: Bladder wall thickness is normal. Prior hysterectomy. Miscellaneous: No inguinal hernias or adenopathy. Extensive diverticulosis is present along the colon best seen in the descending colon and sigmoid bowel at the junction of those 2 areas of the left colon there is mild edema in the pericolonic fat consistent with mild acute diverticulitis without peridiverticular abscess. Bones: No suspicious bony lesions. No vertebral body compression fractures. IMPRESSION: Extensive diverticulosis over the descending colon and avoid colon with mild acute diverticulitis at the left lower quadrant junction of the szyrzckkme-or-vxrjdyg bowel. No peridiverticular abscess is associated. Normal appearing gallbladder, except for presence of at least one and possibly more gallstones that are radiolucent and faintly visualized by CT, at the dependent margin of the gallbladder lumen. A small fat-containing omental hernia extends through a body wall defect just above the umbilicus, best seen centered on series 3 image 43 without definite evidence of incarceration or strangulation. Dictated by: Rashi Cornejo M.D. on 01/04/2018 at 16:03 Approved by: Rashi Cornejo M.D. on 01/04/2018 at 16:06
[2018-01-04] MEDS: MORPHINE 4 MG/ML INJ IV (15:11)
[2018-01-04 15:13] LABS: Add Manual Diff / Slide Review NO; Basophils Percent Auto 0.8 % (0-2); Eosinophils Percent Auto 3.4 % (2-4); Hematocrit 38.7 % (36-46); Hemoglobin 13.1 g/dL (12.0-16.0); Lymphocytes Percent Auto 15.8 % (25-40); Mean Corpuscular HGB Conc 33.9 % (30-36); Mean Corpuscular Hemoglobin 30.9 PG (26-34); Mean Corpuscular Volume 91.2 fL (80-100); Neutrophils Absolute Auto 6800 /uL (3000-5900); Platelet Count 324 X10^3/uL (150-400); Red Blood Cell Count 4.25 X10^6/uL (4.0-5.2); Red Cell Distribution Width 13.4 % (11.6-14.8); White Blood Cell Count 9.4 X10^3/uL (4.5-11.0)
[2018-01-04 15:32] LABS: Influenza A and B by PCR Rapid Negative (Negative)
[2018-01-04 15:34] LABS: Alanine Aminotransferase 23 IU/L (9-52); Albumin 3.9 g/dL (3.5-5.0); Albumin Globulin Ratio 1.4 (1.0-2.8); Alkaline Phosphatase 68 U/L (38-126); Aspartate Aminotransferase 22 IU/L (14-36); B Type Natriuretic Peptide 87.1 (<100); BUN Creatinine Ratio 21.7 (6-22); Bilirubin Total 0.3 mg/dL (0.2-1.3); Blood Urea Nitrogen 13 mg/dL (7-17); Calcium 8.5 mg/dL (8.4-10.2); Carbon Dioxide 28 mmol/L (22-32); Chloride 102 mmol/L (98-107); Estimated Glomerular Filt Rate > 60.0 mL/min (>60); Globulin 2.7 g/dL (1.7-4.1); Glucose 90 mg/dL (70-100); HEMOLYSIS 16 (0-50); Lactate (Lactic Acid) 1.3 mmol/L (0.7-2.1); Lipase 83 U/L (23-300); Potassium 3.9 mmol/L (3.4-5.1); Sodium 141 mmol/L (137-145); Total Protein 6.6 g/dL (6.3-8.2)
--- NOTE | 2018-01-04 15:44 | PC.NURSE ---
O2 saturation in intermittently dropping to low 80's with patient turning blue and coughing to remove secretions form airway. Patient writes on notepad that she feels the secretions are stuck in her airway. trach flushed with saline and suctioned multiple times. RT at bedside, after clearing airway patient's O2 saturation alvaro to high 90's. Placed on 4L O2 via mask to trach for comfort.
[2018-01-04 15:46] LABS: Troponin I < 0.012 ng/mL (0.01-0.034)
[2018-01-04 16:18] LABS: Procalcitonin < 0.05 ng/mL (<0.5)
[2018-01-04] MEDS: HYDROMORPHONE 1 MG INJ IV (16:49)
--- NOTE | 2018-01-04 16:53 | PC.NURSE ---
MD Hernandez aware and awaiting CT results.
--- NOTE | 2018-01-04 16:54 | PC.NURSE ---
Complains of burning to trach wounds which have occlusive dressings in place. Patient shows me blood in sputum- small amount of bright red blood streaking white sputum. Patient complains of throat and neck pain. Also complains of left sided abdominal pain.
--- NOTE | 2018-01-04 16:56 | PC.NURSE ---
Patient positioned onto right side for comfort. Placed in briefs per request due to having small bouts of diarrhea each time she coughs.
--- NOTE | 2018-01-04 17:02 | PC.NURSE ---
Has tracheostomy, not on a ventilator.
--- NOTE | 2018-01-04 17:03 | PC.NURSE ---
Patient has wounds around tracheostomy which are covered by occlusive dressings. She is being seen regularly by wound care. Region around trach appears reddened and scarred. Patient reports wounds are burning worse than usual. She has no voice box so communicates via pen and paper.
--- NOTE | 2018-01-04 18:18 | PC.NURSE ---
I called the patient's brother Refugio per her request and informed him that she was in the hospital.
--- NOTE | 2018-01-04 18:19 | PC.NURSE ---
Patient requests medications to help with all over body itching. I informed Dr. Hernandez.
--- NOTE | 2018-01-04 18:19 | PC.NURSE ---
Patient no longer wearing Oxygen mask to trach due to the fact that it is rubbing and irritating her skin. I informed RT of this and they are looking for method to make it more comfortable for patient. O2 saturation remains between 88-97% on Room air. patient's cough freely and sometimes must be reminded to take deeper breaths.
--- NOTE | 2018-01-04 18:26 | PC.NURSE ---
RT at bedside applying trach Oxygen setup with humidifier. Patient reports more comfortable. Requests meds for itch again and reports pain in neck area has returned.
[2018-01-04] MEDS: levoFLOXacin 750 MG/150 ML PIGGYBACK 100 MG IV (18:28)
[2018-01-04] MEDS: MORPHINE 2 MG/ML INJ IV (19:59)
[2018-01-04] MEDS: hydrOXYzine 50 MG/ML INJ 25 MG IM (21:03)
--- NOTE | 2018-01-04 21:14 | PM.HP.1 ---
History of Present Illness Date Patient Seen: 01/04/18 Time Patient Seen: 20:10 Chief complaint: Respiratory Distress Narrative: HPI is obtained via direct interaction with the patient. Patient does not speak due to history of laryngeal cancer and presence of tracheostomy; however, she does write her responses on a note pad. The patient is a 57-year-old female with PMH significant for laryngeal cancer (s/p tracheostomy), tracheobronchitis, anterior neck radiation ulcer, chronic pain, and h/o MRSA infection. Patient presents with a 4 day history of cough with worsening purulence (thick and green). Patient has chronic tracheostomy. Additional symptoms include generalized malaise. Earlier in the day reports experiencing abdominal discomfort, which is localized to the left lower quadrant with loose stools. Reports chills, but no fever (has not taken temperature). Bloating present. Denies nausea, vomiting, melena, and hematochezia. Denies chest pain, palpitations, dizziness, lightheadedness, syncopal event, and dysuria. Risk: age, obesity, decreased activity, and h/o of tobacco dependence; does not take NSAIDs. Lukas h/o Crohn's or ulcerative colitis. CXR: Mild increased vascularity suggestive of edema with trace left effusion CT Abdomen: extensive diverticulosis over the descending colon and sigmoid bowel with mild acute diverticulitis at the left lower quadrant junction of the [id number] bowel. No danish diverticular abscess is noted. Patient History Medical History Tracheobronchitis (Acute) Chronic pain (Acute) Community acquired pneumonia (Acute) Tracheostomy complication (Acute) Otitis media, purulent, acute, with spontaneous rupture of TM (Acute) Laryngeal cancer (Acute) MRSA (methicillin resistant Staphylococcus aureus) (Acute) Family & Social History Family History: Reviewed 01/04/18 by LORI Anaya Social History: household members significant other Safety & Behavioral: Feels Safe in Current Yes Environment Been Physically Hurt or No Threatened By a Person Tobacco & Substance use: Smoking Status Former smoker alcohol intake former alcohol intake frequency 0-2 drinks per day Substance Use Type does not use Meds Home Medications Medication Instructions Recorded Confirmed Type albuterol sulfate 1 dose INHALATION QIDP PRN #180 01/25/16 01/04/18 History docusate sodium 100 mg PO BID #0 01/25/16 01/04/18 History ferrous gluconate 324 mg PO QDAY #0 08/28/16 01/04/18 History omeprazole 20 mg PO QDAY #0 08/28/16 01/04/18 History acetaminophen 650 mg PO Q6HP PRN #0 10/29/16 01/04/18 History amitriptyline 25 mg PO HS #0 01/22/17 01/04/18 History ascorbic acid (vitamin C) 500 mg PO QDAY #0 06/10/17 01/04/18 History fexofenadine 180 mg PO QDAY #0 06/10/17 01/04/18 History nystatin 1 dose PO DIRECTED #0 06/10/17 01/04/18 History sodium chloride 0.9 % 1 vial QID PRN #0 06/10/17 01/04/18 History citalopram 40 mg PO DAILY 09/21/17 01/04/18 History estradiol 2 mg PO DAILY 09/21/17 01/04/18 History lisinopril 10 mg PO DAILY 09/21/17 01/04/18 History tramadol 50 mg PO Q6HP PRN 09/21/17 01/04/18 History levothyroxine 1 tab PO DAILY 01/04/18 01/04/18 History Allergies Allergy/AdvReac Type Severity Reaction Status Date / Time hydrocodone Allergy Intermediate RASH/HIVES Verified 01/04/18 14:30 Penicillins Allergy Intermediate RASH/HIVES Verified 01/04/18 14:30 metronidazole Allergy Mild RASH Verified 01/04/18 14:30 acetaminophen [ACETAMINOPHEN] Allergy Unknown GI UPSET Verified 01/04/18 14:30 diphenhydramine Allergy Unknown Verified 01/04/18 14:30 [DIPHENHYDRAMINE] ibuprofen Allergy Unknown Verified 01/04/18 14:30 oxycodone [OXYCODONE] Allergy Unknown Verified 01/04/18 14:30 venom-wasp Allergy Verified 01/04/18 14:30 ranitidine AdvReac Intermediate SOB/DIZZY Verified 01/04/18 14:30 sulfamethoxazole AdvReac Mild GI UPSET Verified 01/04/18 14:30 [From Bactrim] trimethoprim [From Bactrim] AdvReac Mild GI UPSET Verified 01/04/18 14:30 fentanyl [FENTANYL] AdvReac Unknown vomiting Verified 01/04/18 14:30 ANTACIDS AdvReac Unknown Uncoded 01/04/18 14:30 Review of Systems Review of Systems All systems reviewed & are unremarkable except as noted in HPI and below Exam Vital Signs (past 8 hours): - 01/04/18 14:18 01/04/18 14:21 01/04/18 14:48 Temperature 98.6 F Pulse Rate 83 Respiratory Rate 24 Blood Pressure 153/88 H Blood Pressure [Left Arm] Pulse Oximetry 95 99 99 01/04/18 14:57 01/04/18 15:30 01/04/18 15:42 Temperature Pulse Rate 79 89 Respiratory Rate 18 22 28 H Blood Pressure Blood Pressure [Left Arm] 126/48 L 122/95 H Pulse Oximetry 93 99 85 L 01/04/18 15:44 01/04/18 17:05 01/04/18 18:00 Temperature Pulse Rate 87 78 Respiratory Rate 22 21 Blood Pressure Blood Pressure [Left Arm] 118/61 116/56 L Pulse Oximetry 99 100 92 01/04/18 18:34 01/04/18 18:53 01/04/18 18:59 Temperature Pulse Rate 79 82 Respiratory Rate 22 16 Blood Pressure Blood Pressure [Left Arm] 98/44 L Pulse Oximetry 100 01/04/18 19:23 01/04/18 20:00 01/04/18 20:31 Temperature 98.5 F Pulse Rate 87 80 82 Respiratory Rate 22 20 18 Blood Pressure 113/69 171/98 H Blood Pressure [Left Arm] Pulse Oximetry 100 90 L Oxygen Delivery Method Aerosol Mask,Trach Collar Oxygen Flow Rate 4 Narrative Exam Narrative: General appearance: NAD, restless, complains of itching Head: NC/AT Eyes: pupils equal round and reactive. EOMI. no scleral icterus. ENT: external ears normal without drainage external nose normal without rhinorhea or epistaxis oropharynx w/o exudates Neck: tracheostomies present; tracheal stoma intact, vlyu-ni-[id number] drainage noted. Chest: equal chest rise, no dyspnea, no tachypnea, on room air cough w/ adequate gag reflex, CTAB Heart: S1S2, no murmur GI: marked central obesity, tender in the LUQ and LLQ, non-distended normoactive bowel sounds, no organomegaly difficult to palpate due to degree of central obesity : no hardin, no suprapubic tenderness Skin: site around stoma covered w/ duoderm, no other overt lesions or bruising Neuro: AOx2, no focal neurological deficits Extremities: no edema, bi-pedal pulses palpable Objective Labs Result Diagrams: 01/04/18 15:00 01/04/18 15:00 Labs: Laboratory Results - last 24 hr 01/04/18 01/04/18 01/04/18 15:00 15:00 15:00 WBC 9.4 RBC 4.25 Hgb 13.1 Hct 38.7 MCV 91.2 MCH 30.9 MCHC 33.9 RDW 13.4 Plt Count 324 Neut % (Auto) 72.0 Lymph % (Auto) 15.8 L [place] % (Auto) 8.0 Eos % (Auto) 3.4 Baso % (Auto) 0.8 Neut # (Auto) 6800 H Sodium 141 Potassium 3.9 Chloride 102 Carbon Dioxide 28 BUN 13 Creatinine 0.60 Estimated GFR > 60.0 BUN/Creatinine Ratio 21.7 Glucose 90 Lactate 1.3 Calcium 8.5 Total Bilirubin 0.3 AST 22 ALT 23 Alkaline Phosphatase 68 Troponin I B-Natriuretic Peptide 87.1 Total Protein 6.6 Albumin 3.9 Globulin 2.7 Albumin/Globulin Ratio 1.4 Lipase Procalcitonin Influenza A & B (PCR) 01/04/18 01/04/18 01/04/18 15:00 15:00 15:00 WBC RBC Hgb Hct MCV MCH MCHC RDW Plt Count Neut % (Auto) Lymph % (Auto) [place] % (Auto) Eos % (Auto) Baso % (Auto) Neut # (Auto) Sodium Potassium Chloride Carbon Dioxide BUN Creatinine Estimated GFR BUN/Creatinine Ratio Glucose Lactate Calcium Total Bilirubin AST ALT Alkaline Phosphatase Troponin I < 0.012 B-Natriuretic Peptide Total Protein Albumin Globulin Albumin/Globulin Ratio Lipase 83 Procalcitonin Influenza A & B (PCR) Negative 01/04/18 15:44 WBC RBC Hgb Hct MCV MCH MCHC RDW Plt Count Neut % (Auto) Lymph % (Auto) [place] % (Auto) Eos % (Auto) Baso % (Auto) Neut # (Auto) Sodium Potassium Chloride Carbon Dioxide BUN Creatinine Estimated GFR BUN/Creatinine Ratio Glucose Lactate Calcium Total Bilirubin AST ALT Alkaline Phosphatase Troponin I B-Natriuretic Peptide Total Protein Albumin Globulin Albumin/Globulin Ratio Lipase Procalcitonin < 0.05 Influenza A & B (PCR) Assessment & Plan Plan: Assessment/Plan Narrative: Diverticulitis No evidence of systemic illness. No evidence of abscess or perforation on CT imaging. - NPO for bowel rest May take levothyroxine and lisinopril with small sips of H2O, hold other PO meds for now If abdominal pain improved and no significant nausea or vomiting, we will consider advancing diet to clear liquid - IVF for hydration - on Levaquin; intolerant of Flagyl - supportive care - consider outpatient GI referral after discharge Cough w/ increased purulence - suction via trach prn - viral panel - sputum culture - suction trach prn COPD w/ cough and worsening purulent CXR suggests pulmonary vascularity, suggestive of edema with trace pleural effusion. No overt dyspnea. No indication for sepsis. BNP 87.1. Influenza A/B negative. - Duo-Neb Tx Q6H - Consult respiratory - Supplemental Ox to keep SpO2 90-94% - Repeat CXR 2 view in am - procalcitonin level Essential HTN BP trend is inconsistent, no overt hypertension - Trend BP - Hold ACEi (lisinopril) overnight, re-evaluate BP in a.m. and consider restarting lisinopril if BP is stable Hypothyroidism, controlled w/ levothyroxine, resumed per home dose/regimen H/O anterior neck radiation ulcer, chronic - will ask wound Care to evaluate / perform care or dressing changes H/O laryngeal cancer, s/p tracheostomy, stable - suction trach prn History of PCN allergy Patient appears to be sensitive to multiple medications. She is allergic to a number of antibiotics, including PCN, sulfa, and Flagyl. Consider treating diverticulitis as monotherapy with ertapenem, given patient's allergy to Flagyl and multiple PCN agent Code Status: Wishes to be full code Quality VTE Deep Vein Thrombosis/Pulmonary Embolism Present on Admission: No
--- NOTE | 2018-01-04 22:54 | PC.NURSE ---
admit note- patient arrived to room via stretcher from ER at 1915. patient able to assist with moving from stretcher to bed. patient oriented to bed and bed controls, room, lights, phone, menu, and call murcia/tv remote. Admission questions completed, home medications reviewed, and physical assessment done. prn iv morphine given for pain. IM vistaril given for complaints of itching. patient tolerated with no s/s of ase noted. pateint writes notes to communicate. safety measures in place. bed alarm activated. call murcia and phone within reach. will continue to monitor.
[2018-01-04 23:42] LABS: Procalcitonin < 0.05 ng/mL (<0.5)
[2018-01-05] VITALS (13 sets, daily range): BP systolic 112–142; BP diastolic 68–95; PULSE 58–95; RESP 15–22; TEMP 36.2–37.3; O2SAT 89–97
[2018-01-05] MEDS: MORPHINE 2 MG/ML INJ IV ×2 (00:04→07:43)
[2018-01-05] MEDS: HEPARIN 5,000 UNIT/ML VIAL 5000 UNIT SUBCUT ×3 (00:17→21:13)
--- NOTE | 2018-01-05 00:40 | PC.NURSE ---
Addendum entered by Ghada Mcginnis R.N. 01/05/18 06:24: Has slept most of shift. O2 sat this morning is 93% while asleep. No further complaints of pain. Original Note: Patient oriented. Does not speak but communicates in writing. Is very anxious and calling for help frequently for a variety of reasons. Breath sounds coarse with expiratory rhonchi throughout. Oxygen with Fi02 of 28% and sat of 95%. Patient removed trach and cleaned it of bloody sputum. HRR and telemetry reading was SR. Denies nausea. BT hypoactive. Currently NPO for bowel rest which when patient told made her cry. Up to bathroom with 1 assist and voided. Turns self in bed. Applied SCD's as not previously on but patient called shortly after and indicated she wanted them off because they won't let her sleep; discussed purpose but patient still declined to wear so instructed to ankle wave and she indicated understanding. Complains of 7/10 neck pain so medicated with Dilaudid. Fall risk score is moderate and bed alarm is activated.
[2018-01-05] MEDS: SODIUM CHLORIDE 0.9% 1,000 ML 75 ML IV (03:36)
[2018-01-05 05:51] LABS: Add Manual Diff / Slide Review NO; Basophils Percent Auto 0.5 % (0-2); Eosinophils Percent Auto 2.5 % (2-4); Hematocrit 32.9 % (36-46); Hemoglobin 11.2 g/dL (12.0-16.0); Lymphocytes Percent Auto 8.4 % (25-40); Mean Corpuscular Hemoglobin 31.3 PG (26-34); Monocytes Percent Auto 10.5 % (3-14); Neutrophils Absolute Auto 6300 /uL (3000-5900); Neutrophils Percent Auto 78.1 % (50-75); Platelet Count 260 X10^3/uL (150-400); Red Blood Cell Count 3.58 X10^6/uL (4.0-5.2); Red Cell Distribution Width 13.5 % (11.6-14.8)
[2018-01-05 05:51] LABS: Adenovirus Not Detected (Not Detect); Bordetella pertussis Not Detected (Not Detect); Chlamydophila pneumoniae Not Detected (Not Detect); Coronavirus 229E Not Detected (Not Detect); Coronavirus HKU1 Not Detected (Not Detect); Coronavirus NL 63 Not Detected (Not Detect); Coronavirus OC43 Not Detected (Not Detect); Human Metapneumovirus Not Detected (Not Detect); Human Rhinovirus/Enterovirus Not Detected (Not Detect); Influenza A Not Detected (Not Detect); Influenza B Not Detected (Not Detect); Mycoplasma pneumoniae Not Detected (Not Detect); Parainfluenza Virus 1 Not Detected (Not Detect); Parainfluenza Virus 2 Not Detected (Not Detect); Parainfluenza Virus 3 Not Detected (Not Detect); Parainfluenza Virus 4 Not Detected (Not Detect); Respiratory Syncytial Virus Not Detected (Not Detect)
[2018-01-05 05:56] LABS: Blood Urea Nitrogen 12 mg/dL (7-17); Calcium 7.8 mg/dL (8.4-10.2); Carbon Dioxide 29 mmol/L (22-32); Chloride 101 mmol/L (98-107); Estimated Glomerular Filt Rate > 60.0 mL/min (>60); Glucose 89 mg/dL (70-100); HEMOLYSIS < 15 (0-50); Potassium 3.4 mmol/L (3.4-5.1); Sodium 138 mmol/L (137-145)
--- NOTE | 2018-01-05 06:00 | DI.RAD.S_ITS ---
PROCEDURE: XR CHEST 1V INDICATIONS: Cough, worsening purulence, COPD exacerbation, chronic trach TECHNIQUE: One view of the chest was acquired. COMPARISON: [facility], CR, XR CHEST 1V, 09/21/2017, 16:08. [facility], CR, XR CHEST 1V, 11/04/2017, 10:40. [facility], CR, XR CHEST 1V, 01/04/2018, 14:14. FINDINGS: Surgical changes and devices: Multiple surgical clips in the lower neck bilaterally. Lungs and pleura: There is left perihilar infiltrate. Chronic interstitial prominence. No pleural effusions or pneumothorax. Mediastinum: Mediastinal contours appear normal. Heart size is normal. Bones and chest wall: No suspicious bony lesions. Overlying soft tissues appear unremarkable. IMPRESSION: 1. Left perihilar infiltrate suspicious for developing pneumonia. 2. Chronic interstitial prominence. Dictated by: Selena Vincent M.D. on 01/05/2018 at 8:37 Approved by: Selena Vincent M.D. on 01/05/2018 at 8:40
[2018-01-05] MEDS: ACETAMINOPHEN 325 MG TABLET 650 MG PO ×2 (11:47→16:24)
[2018-01-05] MEDS: methylPREDNISolone 125 MG/2 ML VIAL 60 MG IV ×2 (11:48→23:46)
[2018-01-05] MEDS: LORATADINE 10 MG TABLET PO (11:50)
--- NOTE | 2018-01-05 13:00 | PM.CN ---
History of Present Illness Date Patient Seen: 01/05/18 Time Patient Seen: 13:01 Chief complaint: Respiratory Distress Reason for consult: chronic neck ulcers Requesting provider: Brian August Narrative: The patient has been admitted for diveriticulitis and has a chronic cough on the background of complicated anterior neck non-pressure ulcers associated with soft tissue radiation injury and a tracheostomy following resection of laryngeal cancer many years ago. I've been consulted to evaluate the neck ulcers which had deteriorated considerably about 3 months ago however over the past few weeks have been improving in terms of granulation and size. She's been treated with multiple courses of antibiotics for recurrent infection associated with mucus contamination from her stoma wound and her dressings have been adjusted to optimize protection again abrasion caused by the tracheostomy tube strap. She reports considerably pain at the ulcer sites today which is a new finding. [facility] Medical History Tracheobronchitis (Acute) Chronic pain (Acute) Community acquired pneumonia (Acute) Tracheostomy complication (Acute) Otitis media, purulent, acute, with spontaneous rupture of TM (Acute) Laryngeal cancer (Acute) MRSA (methicillin resistant Staphylococcus aureus) (Acute) Social History household members: significant other Smoking Status: Former smoker alcohol intake: former Meds Home Medications Medication Instructions Recorded Confirmed Type albuterol sulfate 1 dose INHALATION QIDP PRN #180 01/25/16 01/04/18 History docusate sodium 100 mg PO BID #0 01/25/16 01/04/18 History ferrous gluconate 324 mg PO QDAY #0 08/28/16 01/04/18 History omeprazole 20 mg PO QDAY #0 08/28/16 01/04/18 History acetaminophen 650 mg PO Q6HP PRN #0 10/29/16 01/04/18 History amitriptyline 25 mg PO HS #0 01/22/17 01/04/18 History ascorbic acid (vitamin C) 500 mg PO QDAY #0 06/10/17 01/04/18 History fexofenadine 180 mg PO QDAY #0 06/10/17 01/04/18 History nystatin 1 dose PO DIRECTED #0 06/10/17 01/04/18 History sodium chloride 0.9 % 1 vial QID PRN #0 06/10/17 01/04/18 History citalopram 40 mg PO DAILY 09/21/17 01/04/18 History estradiol 2 mg PO DAILY 09/21/17 01/04/18 History lisinopril 10 mg PO DAILY 09/21/17 01/04/18 History tramadol 50 mg PO Q6HP PRN 09/21/17 01/04/18 History levothyroxine 1 tab PO DAILY 01/04/18 01/04/18 History Allergies Allergy/AdvReac Type Severity Reaction Status Date / Time hydrocodone Allergy Intermediate RASH/HIVES Verified 01/04/18 14:30 Penicillins Allergy Intermediate RASH/HIVES Verified 01/04/18 14:30 metronidazole Allergy Mild RASH Verified 01/04/18 14:30 acetaminophen [ACETAMINOPHEN] Allergy Unknown GI UPSET Verified 01/04/18 14:30 diphenhydramine Allergy Unknown Verified 01/04/18 14:30 [DIPHENHYDRAMINE] ibuprofen Allergy Unknown Verified 01/04/18 14:30 oxycodone [OXYCODONE] Allergy Unknown Verified 01/04/18 14:30 venom-wasp Allergy Verified 01/04/18 14:30 ranitidine AdvReac Intermediate SOB/DIZZY Verified 01/04/18 14:30 sulfamethoxazole AdvReac Mild GI UPSET Verified 01/04/18 14:30 [From Bactrim] trimethoprim [From Bactrim] AdvReac Mild GI UPSET Verified 01/04/18 14:30 fentanyl [FENTANYL] AdvReac Unknown vomiting Verified 01/04/18 14:30 ANTACIDS AdvReac Unknown Uncoded 01/04/18 14:30 Review of Systems Review of Systems All systems reviewed & are unremarkable except as noted in HPI and below Exam Vital Signs (past 8 hours): - 01/05/18 08:15 01/05/18 08:35 01/05/18 08:36 Temperature 97.8 F Pulse Rate 74 Respiratory Rate 16 Blood Pressure 142/68 H Pulse Oximetry 94 95 89 L 01/05/18 08:37 Temperature Pulse Rate Respiratory Rate Blood Pressure Pulse Oximetry 94 Fraction of Inspired Oxygen 28 Oxygen Delivery Method Room Air Oxygen Flow Rate 7 Neck Other: old neck ulcer dressings removed with moderate pain; significant amount of biofilm beneath however stable in term of size, depth, and granulation compared to last review in clinic Objective Labs Result Diagrams: 01/05/18 05:02 01/05/18 05:02 Labs: Laboratory Results - last 24 hr 01/04/18 01/04/18 01/04/18 14:40 15:00 15:00 WBC 9.4 RBC 4.25 Hgb 13.1 Hct 38.7 MCV 91.2 MCH 30.9 MCHC 33.9 RDW 13.4 Plt Count 324 Neut % (Auto) 72.0 Lymph % (Auto) 15.[address] [place] % (Auto) 8.0 Eos % (Auto) 3.4 Baso % (Auto) 0.8 Neut # (Auto) 6800 H Sodium 141 Potassium 3.9 Chloride 102 Carbon Dioxide 28 BUN 13 Creatinine 0.60 Estimated GFR > 60.0 BUN/Creatinine Ratio 21.7 Glucose 90 Lactate Calcium 8.5 Total Bilirubin 0.3 AST 22 ALT 23 Alkaline Phosphatase 68 Troponin I B-Natriuretic Peptide 87.1 Total Protein 6.6 Albumin 3.9 Globulin 2.7 Albumin/Globulin Ratio 1.4 Lipase Procalcitonin < 0.05 Chlamy pneumoniae PCR Adenovirus (PCR) B.parapertussis DNA PCR Coronavirus OC43 (PCR) Coronavirus HKU1 (PCR) Coronavirus 229E (PCR) Coronavirus NL63 (PCR) Human Metapneumovir PCR Influenza Type A (PCR) Influenza Type B (PCR) Influenza A & B (PCR) M. pneumoniae (PCR) Parainfluenza 1 (PCR) Parainfluenza 2 (PCR) Parainfluenza 3 (PCR) Parainfluenza 4 (PCR) RSV (PCR) Entero/Rhino (PCR) 01/04/18 01/04/18 01/04/18 15:00 15:00 15:00 WBC RBC Hgb Hct MCV MCH MCHC RDW Plt Count Neut % (Auto) Lymph % (Auto) [place] % (Auto) Eos % (Auto) Baso % (Auto) Neut # (Auto) Sodium Potassium Chloride Carbon Dioxide BUN Creatinine Estimated GFR BUN/Creatinine Ratio Glucose Lactate 1.3 Calcium Total Bilirubin AST ALT Alkaline Phosphatase Troponin I < 0.012 B-Natriuretic Peptide Total Protein Albumin Globulin Albumin/Globulin Ratio Lipase 83 Procalcitonin Chlamy pneumoniae PCR Adenovirus (PCR) B.parapertussis DNA PCR Coronavirus OC43 (PCR) Coronavirus HKU1 (PCR) Coronavirus 229E (PCR) Coronavirus NL63 (PCR) Human Metapneumovir PCR Influenza Type A (PCR) Influenza Type B (PCR) Influenza A & B (PCR) M. pneumoniae (PCR) Parainfluenza 1 (PCR) Parainfluenza 2 (PCR) Parainfluenza 3 (PCR) Parainfluenza 4 (PCR) RSV (PCR) Entero/Rhino (PCR) 01/04/18 01/04/18 01/05/18 15:00 15:44 03:40 WBC RBC Hgb Hct MCV MCH MCHC RDW Plt Count Neut % (Auto) Lymph % (Auto) [place] % (Auto) Eos % (Auto) Baso % (Auto) Neut # (Auto) Sodium Potassium Chloride Carbon Dioxide BUN Creatinine Estimated GFR BUN/Creatinine Ratio Glucose Lactate Calcium Total Bilirubin AST ALT Alkaline Phosphatase Troponin I B-Natriuretic Peptide Total Protein Albumin Globulin Albumin/Globulin Ratio Lipase Procalcitonin < 0.05 Chlamy pneumoniae PCR Not detected Adenovirus (PCR) Not detected B.parapertussis DNA PCR Not detected Coronavirus OC43 (PCR) Not detected Coronavirus HKU1 (PCR) Not detected Coronavirus 229E (PCR) Not detected Coronavirus NL63 (PCR) Not detected Human Metapneumovir PCR Not detected Influenza Type A (PCR) Not detected Influenza Type B (PCR) Not detected Influenza A & B (PCR) Negative M. pneumoniae (PCR) Not detected Parainfluenza 1 (PCR) Not detected Parainfluenza 2 (PCR) Not detected Parainfluenza 3 (PCR) Not detected Parainfluenza 4 (PCR) Not detected RSV (PCR) Not detected Entero/Rhino (PCR) Not detected 01/05/18 01/05/18 05:02 05:02 WBC 8.0 RBC 3.58 L Hgb 11.2 L Hct 32.9 L MCV 92.0 MCH 31.3 MCHC 34.0 RDW 13.5 Plt Count 260 Neut % (Auto) 78.1 H Lymph % (Auto) 8.[address] [place] % (Auto) 10.5 Eos % (Auto) 2.5 Baso % (Auto) 0.5 Neut # (Auto) 6300 H Sodium 138 Potassium 3.4 Chloride 101 Carbon Dioxide 29 BUN 12 Creatinine 0.60 Estimated GFR > 60.0 BUN/Creatinine Ratio 20.0 Glucose 89 Lactate Calcium 7.8 L Total Bilirubin AST ALT Alkaline Phosphatase Troponin I B-Natriuretic Peptide Total Protein Albumin Globulin Albumin/Globulin Ratio Lipase Procalcitonin Chlamy pneumoniae PCR Adenovirus (PCR) B.parapertussis DNA PCR Coronavirus OC43 (PCR) Coronavirus HKU1 (PCR) Coronavirus 229E (PCR) Coronavirus NL63 (PCR) Human Metapneumovir PCR Influenza Type A (PCR) Influenza Type B (PCR) Influenza A & B (PCR) M. pneumoniae (PCR) Parainfluenza 1 (PCR) Parainfluenza 2 (PCR) Parainfluenza 3 (PCR) Parainfluenza 4 (PCR) RSV (PCR) Entero/Rhino (PCR) Assessment & Plan (1) Non-pressure chronic ulcer of skin of other sites with unspecified severity: Problem details: I've written new dressing orders to minimize abrasion to the neck ulcers from the overlying trach tube strap and also ordered a wound culture due to the heavy biofilm an drainage on the dressings. We'll be happy to see the patient in the wound care clinic within 2-3 days of discharge and see the patient as needed while in the hospital. Current visit: Yes Status: Acute (2) Open wound of neck: Current visit: Yes Status: Acute
[2018-01-05] MEDS: GENTAMICIN 0.1% OINT 30 GM 1 APPLIC TOP (17:24)
[2018-01-05] MEDS: TRAMADOL 50 MG TABLET PO (17:50)
--- NOTE | 2018-01-05 18:11 | P.PN_ITS ---
Subjective Date Patient Seen: 01/05/18 Interval history: Patient reports some improvement in her breathing and less output from her tracheostomy. Reports mild left-sided abdominal pain. Exam Vital Signs (past 8 hours): - 01/05/18 12:00 01/05/18 14:48 01/05/18 14:49 Temperature 97.9 F Pulse Rate 64 80 Respiratory Rate 16 16 16 Blood Pressure 134/74 Pulse Oximetry 93 97 01/05/18 15:50 Temperature 99.2 F Pulse Rate 58 L Respiratory Rate 15 Blood Pressure 141/95 H Pulse Oximetry 96 Fraction of Inspired Oxygen 28 Oxygen Delivery Method Trach Collar Oxygen Flow Rate 0 Narrative Exam Narrative: General: Alert and pleasant, no acute distress, communicates by writing Lungs: Bilateral expiratory wheeze Abdomen: Mild left-sided tenderness without guarding or rebound Extremities: No edema Neurological: Well oriented, nonfocal Skin: Site around tracheostomy stoma covered with DuoDerm Objective Labs Result Diagrams: 01/05/18 05:02 01/05/18 05:02 Labs: Laboratory Results - last 24 hr 01/04/18 01/05/18 01/05/18 14:40 03:40 05:02 WBC 8.0 RBC 3.58 L Hgb 11.2 L Hct 32.9 L MCV 92.0 MCH 31.3 MCHC 34.0 RDW 13.5 Plt Count 260 Neut % (Auto) 78.1 H Lymph % (Auto) 8.4 L [place] % (Auto) 10.5 Eos % (Auto) 2.5 Baso % (Auto) 0.5 Neut # (Auto) 6300 H Sodium Potassium Chloride Carbon Dioxide BUN Creatinine Estimated GFR BUN/Creatinine Ratio Glucose Calcium Procalcitonin < 0.05 Chlamy pneumoniae PCR Not detected Adenovirus (PCR) Not detected B.parapertussis DNA PCR Not detected Coronavirus OC43 (PCR) Not detected Coronavirus HKU1 (PCR) Not detected Coronavirus 229E (PCR) Not detected Coronavirus NL63 (PCR) Not detected Human Metapneumovir PCR Not detected Influenza Type A (PCR) Not detected Influenza Type B (PCR) Not detected M. pneumoniae (PCR) Not detected Parainfluenza 1 (PCR) Not detected Parainfluenza 2 (PCR) Not detected Parainfluenza 3 (PCR) Not detected Parainfluenza 4 (PCR) Not detected RSV (PCR) Not detected Entero/Rhino (PCR) Not detected 01/05/18 05:02 WBC RBC Hgb Hct MCV MCH MCHC RDW Plt Count Neut % (Auto) Lymph % (Auto) [place] % (Auto) Eos % (Auto) Baso % (Auto) Neut # (Auto) Sodium 138 Potassium 3.4 Chloride 101 Carbon Dioxide 29 BUN 12 Creatinine 0.60 Estimated GFR > 60.0 BUN/Creatinine Ratio 20.0 Glucose 89 Calcium 7.8 L Procalcitonin Chlamy pneumoniae PCR Adenovirus (PCR) B.parapertussis DNA PCR Coronavirus OC43 (PCR) Coronavirus HKU1 (PCR) Coronavirus 229E (PCR) Coronavirus NL63 (PCR) Human Metapneumovir PCR Influenza Type A (PCR) Influenza Type B (PCR) M. pneumoniae (PCR) Parainfluenza 1 (PCR) Parainfluenza 2 (PCR) Parainfluenza 3 (PCR) Parainfluenza 4 (PCR) RSV (PCR) Entero/Rhino (PCR) Assessment & Plan Plan: Assessment/Plan Narrative: 1. COPD exacerbation: Stable, has wheezes on exam. Add Solu-Medrol 60 mg q.6 hours. Levaquin p.o.. Continue DuoNeb q.6 hours. Suction via trach as needed. Repeat chest x-ray radiology report indicated developing left lower lobe infiltrate. On my personal reading there is no significant change from prior x-ray and clinically she does not appear to have pneumonia. 2. Acute diverticulitis. Mild case and improving. Continue Levaquin. Diet as tolerated. 3. Hypertension. BP trending up. Resumed lisinopril 10 mg daily. 4. Hypothyroidism, controlled w/ levothyroxine, resumed per home dose/regimen 5. H/O anterior neck radiation ulcer, chronic. [facility] - will ask wound Care to evaluate / perform care or dressing changes 6. H/O laryngeal cancer, s/p tracheostomy, stable - suction trach prn Disposition: Patient is stable and improving clinical status and probably can discharge tomorrow, Thursday. Quality VTE Deep Vein Thrombosis/Pulmonary Embolism Present on Admission: No
[2018-01-05] MEDS: ALBUTEROL/IPRATROPIUM 3 ML AMPUL INH (18:14)
[2018-01-05] MEDS: levoFLOXacin 250 MG TABLET 750 MG PO (18:23)
[2018-01-05] MEDS: AMITRIPTYLINE 25 MG TABLET PO (21:12)
[2018-01-05] MEDS: DOCUSATE 100 MG CAPSULE PO (21:13)
[2018-01-06] MEDS: LEVOTHYROXINE 88 MCG TABLET PO (05:32)
[2018-01-06] MEDS: PANTOPRAZOLE 20 MG TABLET PO (05:32)
[2018-01-06] MEDS: ALBUTEROL/IPRATROPIUM 3 ML AMPUL INH ×2 (05:36→11:28)
[2018-01-06 05:39] VITALS: O2SAT 96
[2018-01-06 05:43] VITALS: BP 134/77; PULSE 70; RESP 19; TEMP 36.4; O2SAT 91
--- NOTE | 2018-01-06 06:18 | PC.NURSE ---
2345: A&OX3, 89-95% 6L. LS: expiratory rhonchi throughout. Pt communicates through writing. pt anxious and feels that something is stuck in her trach, requesting for RT to suction trach, RT came to assess and there was nothing to suction. Pt was more calm after RT suction.
[2018-01-06] MEDS: TRAMADOL 50 MG TABLET PO (08:00)
[2018-01-06 08:20] VITALS: BP 110/54; PULSE 66; RESP 17; TEMP 36.8; O2SAT 98
[2018-01-06] MEDS: CITALOPRAM 20 MG TABLET 40 MG PO (09:03)
[2018-01-06] MEDS: HEPARIN 5,000 UNIT/ML VIAL 5000 UNIT SUBCUT (09:04)
[2018-01-06] MEDS: LISINOPRIL 10 MG TABLET PO (09:04)
[2018-01-06] MEDS: LORATADINE 10 MG TABLET PO (09:04)
[2018-01-06] MEDS: DOCUSATE 100 MG CAPSULE PO (09:04)
[2018-01-06] MEDS: ESTRADIOL 1 MG TABLET 2 MG PO (09:04)
[2018-01-06] MEDS: GENTAMICIN 0.1% OINT 30 GM 1 APPLIC TOP (10:31)
[2018-01-06] MEDS: INFLUENZA VACCINE 0.5 ML SYRINGE IM (10:31)
--- NOTE | 2018-01-06 11:27 | CM.DANOTE ---
DCP: Case received, EMR reviewed and met with patient. Introduced self and role. DCP template completed with information currently available. Also received information from significant other, Jr. Patient is a 57 year old female who admitted on the in the late afternoon to the care of the hospitalist team. PCP: Dr. Min. Payer: confirmed: [employer]/Medicaid. Patient came to hospital with respiratory distress. Has a tracheotomy. Patient was noted to have some drainage from her trach. Has history of laringeal Cancer. Patient lives at home in [place] with significant other, Jr. Spoke to Jr., who stated that patient has a caregiver that comes in 3 days a week to help patient. Patient has been managing trach. Has been independent, and drives as well. Patient can't talk, but uses a note pad to write on to communicate. Also attempted to reach out to caregiver, Tiffanie. her phone number is: [phone]. Left message for her to call back. P: Patient is to return home when stable. Verified from significant other, that he will be able to pick her up. Taylor Sen RN/[employer]
[2018-01-06 11:31] VITALS: PULSE 80; RESP 24; O2SAT 97
--- NOTE | 2018-01-06 12:49 | PC.NURSE ---
Discharge: Pt dressed in own clothing with all belongings, discharge instructions and new prescriptions given, pt acknowledge through writing of understanding. Pt out by wheelchair with caregiver Tiffanie and RN.
--- NOTE | 2018-01-06 19:30 | PM.DS.1 ---
History of Present Illness Chief complaint: Respiratory Distress Narrative: HPI is obtained via direct interaction with the patient. Patient does not speak due to history of laryngeal cancer and presence of tracheostomy; however, she does write her responses on a note pad. The patient is a 57-year-old female with PMH significant for laryngeal cancer (s/p tracheostomy), tracheobronchitis, anterior neck radiation ulcer, chronic pain, and h/o MRSA infection. Patient presents with a 4 day history of cough with worsening purulence (thick and green). Patient has chronic tracheostomy. Additional symptoms include generalized malaise. Earlier in the day reports experiencing abdominal discomfort, which is localized to the left lower quadrant with loose stools. Reports chills, but no fever (has not taken temperature). Bloating present. Denies nausea, vomiting, melena, and hematochezia. Denies chest pain, palpitations, dizziness, lightheadedness, syncopal event, and dysuria. Risk: age, obesity, decreased activity, and h/o of tobacco dependence; does not take NSAIDs. Lukas h/o Crohn's or ulcerative colitis. CXR: Mild increased vascularity suggestive of edema with trace left effusion CT Abdomen: extensive diverticulosis over the descending colon and sigmoid bowel with mild acute diverticulitis at the left lower quadrant junction of the [id number] bowel. No danish diverticular abscess is noted. Discharge Providers Date of admission: 01/04/18 18:41 Primary care physician: Eusebio Hammer MD Consults: 01/04/18 18:28 Consult to Physician Routine Comment: Consulting Provider: Brian August Reason for consultation: admission Has provider been notified: Yes 01/04/18 20:05 Consult to Wound Care Routine Comment: Consulting Provider: [facility] 01/04/18 20:10 Consult to Respiratory Therapy Evaluate & Treat Comment: Physician Instructions: Evaluate and treat 01/05/18 10:44 Consult to Wound Care Routine Comment: Consulting Provider: [facility] Discharge provider: Brian August MD Discharge Date: 01/06/18 Summary Discharge Diagnosis: 1. COPD exacerbation 2. Acute diverticulitis 3. History of anterior neck radiation ulcer, chronic 4. History of tracheostomy Hospital Course: Patient was treated with Levaquin, nebs and steroid for her COPD exacerbation. The Levaquin would also cover for diverticulitis. She is allergic to metronidazole. Respiratory symptoms and abdominal symptoms were both much improved at time of discharge. She will follow up with PCP. Status at Discharge Functional status at discharge: independent ambulation Overall status at discharge: patient is back to baseline Time Spent with Patient Greater than 30 minutes Exam Vital Signs (past 8 hours): - 01/06/18 11:31 Pulse Rate 80 Respiratory Rate 24 Pulse Oximetry 97 Fraction of Inspired Oxygen 0.28 Oxygen Delivery Method Room Air Oxygen Flow Rate 2 Narrative Exam Narrative: General: Alert and pleasant, no acute distress, communicates by writing Lungs: No wheeze Abdomen: Mild left-sided tenderness without guarding or rebound Extremities: No edema Neurological: Well oriented, nonfocal Skin: Site around tracheostomy stoma covered with DuoDerm Objective Labs Result Diagrams: 01/05/18 05:02 01/05/18 05:02 Discharge Plan Discharge Plan Patient Disposition: Home Discharge Med Rec/Prescriptions Prescriptions: New prednisone 20 mg tablet 10 mg PO BID Qty: 10 RF: 0 levofloxacin [Levaquin] 750 mg tablet 750 mg PO DAILY Qty: 7 RF: 0 Continue albuterol sulfate 2.5 MG/3 ML solution for nebulization 1 dose Inhalation QIDP PRN (Reason: Shortness Of Breath) Qty: 180 RF: 0 docusate sodium 100 MG capsule 100 mg PO BID Qty: 0 RF: 0 ferrous gluconate 324 MG tablet 324 mg PO QDAY Qty: 0 RF: 0 omeprazole 20 MG capsule,delayed release(DR/EC) 20 mg PO QDAY Qty: 0 RF: 0 acetaminophen 325 MG tablet 650 mg PO Q6HP PRN (Reason: Pain, Mild) Qty: 0 RF: 0 amitriptyline 25 MG tablet 25 mg PO HS Qty: 0 RF: 0 ascorbic acid (vitamin C) 500 MG tablet 500 mg PO QDAY Qty: 0 RF: 0 fexofenadine 180 MG tablet 180 mg PO QDAY Qty: 0 RF: 0 nystatin 100,000 UNIT/1 ML suspension 1 dose PO DIRECTED Qty: 0 RF: 0 sodium chloride 0.9 % 10 ML solution 1 vial QID PRN (Reason: irrigate tracheostomy) Qty: 0 RF: 0 citalopram 40 mg tablet 40 mg PO DAILY RF: 0 estradiol 2 mg tablet 2 mg PO DAILY RF: 0 lisinopril 10 mg tablet 10 mg PO DAILY RF: 0 tramadol 50 MG tablet 50 mg PO Q6HP PRN (Reason: Pain, Moderate) RF: 0 levothyroxine 88 mcg tablet 1 tab PO DAILY RF: 0 Follow up/Referrals: Eusebio Hammer MD [Primary Care Provider] - 1 Week (please call & schedule follow up appointment with your primary care provider for 1 week from discharge ) Provider Discharge Instructions Diet: Diet as Tolerated Visit Report/Discharge Packet Instructions: Prednisone, Levofloxacin Visit Report Forms: Stroke Signs & Symptoms Discharge Data Primary Care Provider: Eusebio Hammer Attending Provider: Brian August Admit Date/Time: 01/04/18 18:41 Discharges patient from system. Discharge Date/Time: 01/06/18 13:01 Quality VTE Deep Vein Thrombosis/Pulmonary Embolism Present on Admission: No
== END 2018-01-06 13:01 | disposition home or self-care (01) | DRG 140 ==
LOC: ED 17:52 → AC 01-05 07:39
PROVIDERS: Nurse Practitioner Gerontology; Admitting Provider Internal Medicine; Emergency Provider Emergency Medicine; PCP Internal Medicine; Visit Provider Internal Medicine
DX: J44.1 Chronic obstructive pulmonary disease with (acute) exacerbation (principal); K57.32 Diverticulitis of large intestine without perforation or abscess without bleeding; L98.499 Non-pressure chronic ulcer of skin of other sites with unspecified severity; Z93.0 Tracheostomy status; G89.29 Other chronic pain; Z85.21 Personal history of malignant neoplasm of larynx; Z23 Encounter for immunization
CPT/HCPCS: 36415; 36591; 71045; 74177; 80048; 80053; 83605; 83690; 83880; 84145; 84484; 85025; 87040; 87070; 87075; 87077; 87147; 87186; 87205; 87400; 87633; 90471; 90656; 93005; 94640; 94760; 94762; 94799; 96361; 96365; 96366; 96375; 99283; 99285; J1170; J1644; J1956; J2270; J2930; J3410; Q2038; Q9967

== ENCOUNTER → 2018-01-08 09:55 | Outpatient (CLI) | payer OTHER, MEDICAID, SELFPAY ==
[2018-01-04 20:02] VITALS: BMI 38.9
--- NOTE | 2018-01-08 | OV.WND_ITS ---
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 Allergies Penicillins (Severity: Moderate, Reaction: rash and hives), Vicodin (Severity: Moderate, Reaction: Rash and hives), ibuprofen (Severity: Moderate, Reaction: Rash and hives), Gelusil Antacid and Anti-Gas (Severity: Moderate, Reaction: increase in stomach discomfort), Septra (Severity: Moderate, Reaction: GI upset), Flagyl (Severity: Moderate, Reaction: Rash), Benadryl (Reaction: Rash), ranitidine (Severity: Moderate, Reaction: SOB, dizzy) HPI This information was obtained from the patient 01/08/18. Seen by Dr. Cornell. 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 Her wound culture from the last visit grew MSSA. 12/29/17. Seen by Dr. Cornell. 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 12/10/17. Seen by Dr. Cornell. 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 12/02/17. Seen by Dr. Cornell. 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 11/26/17. Seen by Dr. Cornell. 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 11/19/17. Seen by Dr. Cornell. 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 11/12/17. Seen by Dr. Cornell. 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 11/05/17. Seen by Dr. Cornell. The patient reports a persistent productive cough for which she went to the ER recently. She was not placed on antibiotics. She does not report significant pain or drainage from the anterior neck soft tissue radiation ulcer however this tends to become contaminated via her laryngostomy site when she develops a productive cough. 10/29/17. Seen by Dr. Cornell. 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 10/22/17. Seen by Dr. Cornell. The patient reports persistence of a productive cough despite completing a recent course of doxycycline. The sputum tends to contaminate her anterior neck soft tissue ulcer via her laryngectomy stoma. She does not report increased pain or drainage associated with the ulcer however since her last visit. 10/13/17. Seen by Dr. Cornell. The patient does not report increased pain associated with the anterior neck soft tissue radiation ulcer since her previous visit ad she continues on doxycycline for bronchitis. Her dressings have been adjusted to facilitate frequent changing in light of her coughing and presumed contamination of the ulcer via her tracheostomy. 10/09/17. Seen by Dr. Cornell. The patient's now on doxycycline for recurrence of bronchitis. 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 The dressing has been chosen specifically to help prevent abrasion to the irradiated skin caused by the tracheostomy tube strap. 10/02/17. Seen by Dr. Cornell. 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 She does not report significant pain or drainage from the ulcer nor side effects of the antibiotics. The ulcer had deteriorated considerably over the previous 2 weeks and we adjusted dressings to better protect against abrasion caused by her tracheostomy tube and strap. 09/28/17. Seen by Dr. Cornell. The patient continues to report pain associated with the anterior soft tissue radiation neck ulcer and her wound culture from week grew Group A strep, Staph, and diptheroids. She's not currently on antibiotics and we've changed her dressing to better protect against abrasion from the tracheostomy tube and strap. 09/24/17. Seen by Dr. Cornell. The patient does not report increased pain associated with the anterior neck soft tissue radiation ulcer however the nurse feels the ulcer is longer than on her previous visit. 09/17/17. Seen by Dr. Cornell. 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 She has an appointment tomorrow with her PCP to address this problem. Otherwise she does not report increased pain or drainage associated with the ulcer however the nurse reports the ulcer as being larger this week. 09/10/17. Seen by Dr. Cornell. 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 Her culture at the last visit grew Diptherioids and he's applying topical gentamicin with dressing changes which has been adjusted to better protect the site from the abrading ET tube and strap. 09/07/17. Seen by Dr. Cornell. 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 The staff also feels the ulcer's increased in size and she's no long on oral antibiotics that were prescribed recently for a Enterococcus positive wound culture. 08/31/17. Seen by Finn Felton PA-C. The patient reports pain associated with her chronic neck radiation ulcer. 08/24/17. Seen by Dr. Cornell. 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 She continues to apply topical gentamicin to the ulcer to treat the Enterococcus positive wound culture as recommended. 08/14/17. Seen by Dr. Cornell. The patient's been applying topical gentamicin daily to the soft tissue radiation neck ulcer to treat the recent Enterococcus positive wound culture and she's completed her course of levofloxacin. 08/07/17. Seen by Dr. Cornell. 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 She does not report increased pain nor drainage from the site however nor other acute issues today. 07/31/17. Seen by Dr. Cornell. 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 07/24/17. Seen by Dr. Cornell. 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 07/17/17. Seen by Dr. Cornell. 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 Of note, the patient also states she fell from her bed a few days ago resulting in bilateral black eyes. 07/10/2017. Seen by Dr. Cornell. 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 She does not report increased drainage however nor other acute issues. 07/03/17. Seen by Dr. Cornell. 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 06/19/17. Seen by Dr. Cornell. 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 06/09/17. Seen by Dr. Cornell. The patient reports some pain associated with the anterior neck right sided soft tissue radiation ulcer and continues on doxycycline and levofloxacin following a recent admission for a COPD exacerbation. She does not report increased drainage from the ulcer sites and is using Xeroform and Scar-away dressings as recommended. 06/01/17. Seen by Dr. Cornell. The patient was admitted to the hospital for a COPD exacerbation and is now on oral antibiotics following discharge. She reports some ear pain but otherwise no acute issues. Regarding her soft tissue radiation ulcers over the anterior neck she is now using the silicone dressings and Xeroform as recommended and does not report significant pain or drainage.Of note, these are complicated significantly by her tracheostomy tube and attached strap that tends to shear the irradiated skin causing ulcers. 05/25/17. Seen by Dr. Cornell. The patient reports pain associated with the chronic soft tissue radiation neck ulcers. She states her dressings are not on continuously and that she has been wearing her tracheostomy strap for extended periods at home despite our advice to not use it if possible. 05/18/17. Seen by Finn Felton PA-C. The patient reports continued pain from her soft tissue radiation ulcers of the neck. She has finished a once daily antibiotic for a URI but does not recall which antibiotic it was. 05/11/17. Seen by Finn Felton PA-C. The patient reports increased pain and increased drainage from her soft tissue radiation ulcers of the neck. 04/23/17. Similarly Dr. Cornell. The patient does not report increased pain nor drainage associated with the chronic neck soft tissue radiation ulcers since her last visit. 04/16/17. Seen by Finn Felton PA-C. The patient reports that the Radia-gel dressings did not stay in place and the tape used to secure them caused skin tears. 04/09/17. Seen by Finn Felton PA-C. The patient reports no increase in drainage from her radiation ulcers of the neck. 04/02/17. Seen by Finn Felton PA-C. The patient reports her usual amount of pain from her anterior neck ulcers. 03/26/17. Seen by Dr. Cornell. 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 She was discharged recently from [facility] following treatment for an acute URI and is now on levofloxacin. 03/19/17. Seen by Dr. Cornell. The patient does not report significant pain associated with chronic anterior neck soft tssue radiation ulcer since her last visit. 03/12/17. Seen by Dr. Cornell. The patient reports increased pain associated with the anterior neck soft tissue radiation ulcers. Of note, she is reusing her silicon dressings and washing them despite being advised not to do this in the past. She has very limited financial resources that is leading her to do this. 03/04/17. Seen by Dr. Cornell. 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 She continues on doxycycline for a cat bite at the right arm without reported adverse side effects and feels this is improving. There are also no new issues regarding his left neck nonpressure ulcer. 02/24/17. Seen by Dr. Cornell. 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 She was seen in the ER for this and had a CT performed that showed cellulitis but no associated abscess. She was started on levofloxacin at that visit. Also, she was to start doxycycline following her last wound care visit for a cat bite of the right arm however states the antibiotic was not covered by insurance so she has not started this. Otherwise, she does not report fevers or feeling unwell in general. 02/17/17. Seen by Dr. Cornell. The patient reports continued pain associated with the anterior and left lateral neck soft tissue radiation ulcers since her last visit. She is not currently on antibiotics. She also reports a cat bite of the right arm that's been bleeding and painful for the past 2 days since it occurred. 02/10/17. Seen by Finn Felton PA-C. The patient reports a new ulcer on her left neck , in the irradiated area from her previous radiation treatment. 01/16/17. Seen by Dr. Cornell. The patient reports some moderate pain and drainage associated with her chronic neck soft tissue radiation ulcers since her last visit. 01/09/17. Seen by Dr. Cornell. The patient does not report significant pain or increased drainage associated with her chronic neck soft tissue radiation ulcers since her last visit. Her recent wound culture grew ocampo-sensitive Staph aureus and she's applying topical gentamicin as recommended. 01/01/17. Seen by Finn Felton PA-C. The patient reports increased pain and drainage from her chronic neck ulcers which overly an irradiated field. 12/17/16. Seen by Dr. Cornell. The patient does not report significant pain or increased drainage associated with her chronic neck soft tissue radiation ulcers since her last visit. She'll be leaving for a hunting trip and will be gone until December 31. 12/11/16. Seen by Dr. Cornell. The patient does not report significant pain nor drainage associated with chronic neck soft tissue radiation ulcers since her last visit. She completed her course of levofloxacin in the interim and also states that she will not be undergoing reconstructive surgery following discussion with her surgeons. 11/27/16. Seen by Dr. Cornell. The patient reports increased pain and some bloody drainage associated with the anterior neck soft tissue radiation ulcer. She also states that she's had a persistent and productive cough over the past few days. Her most recent wound culture grew MSSA and the prior grew a pansensitive Pseudomonas organism. Staff also report a new ulcer over the left anterior neck. 11/20/16. Seen by Finn Felton PA-C. The patient came in urgently today to be evaluated for increased bleeding and drainage from her neck ulcers which overly radiation damaged tissue. 11/14/16. Seen by Dr. Cornell. The patient continues to apply topical gentamicin to the chronic soft tissue radiation neck ulcers to treat the recent Pseudomonas positive wound culture. She does not report significant pain or increased drainage from these sites. She has an appointment with another surgeon on November 21 to further discuss reconstructive options regarding the narrowing of her stoma and significant soft tissue contractures around the anterior neck. 11/07/16. Seen by Dr. Cornell. The patient reports a new ulcer over the left side of her neck at an area of scarring associated with her chronic soft tissue radiation injury of the neck. She does not report significant pain nor drainage at the site nor from the chronic anterior nonpressure ulcer. Her last culture at that site grew Pseudomonas that is intermediately. 10/31/16. Seen by Dr. Cornell. The patient and her caregiver reports increased drainage associated with the chronic and progressive right anterior neck soft tissue radiation ulcer over the past week. They're having issues in terms of dressing changes and managing increased drainage and the patient also has a persistent and productive cough with mucus being expelled from the tracheostomy site. Of note, the caregiver states that she has been attempting to liaise with Dr. Lopez's office, ENT surgery at , regarding a follow up appointment to discuss reconstructive surgery in hopes of addressing the chronic skin contractures that are contributing heavily to the refractory nature of this neck ulcer. 10/23/16. Seen by Finn Felton PA-C. The patient reports no increase in pain or drainage from her neck ulcer. Her two ulcers have bridged into one ulcer. She has no new news regarding a surgical revision. 10/10/16. Seen by Dr. Cornell.The patient does not report increased pain or drainage associated with the chronic soft tissue neck radiation ulcers since her last visit. Her culture from the last visit grew diphtheroids and she's been applying topical gentamicin as recommended. According to her caregiver they have still not heard back regarding an appointment with her surgeon who is planning a revision for the stenosed tracheostomy site noting the tube is contributing significantly to the ulcer formation. She also does not report significant pain or drainage associated with the superficial abdominal abscess noted at her last visit. 10/03/16. Seen by Dr. Cornell. The patient continues to report some pain associated with the chronic neck soft tissue radiation ulcers. The patient caregiver feels the proximal ulcer continues to increase in size. They have not yet scheduled an appointment for revision surgery for the tracheostomy as was discussed last week. 09/26/16. Seen by Dr. Cornell. The patient continues to report some pain as well as persistent drainage associated with the chronic right neck soft-tissue radiation ulcers. 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 He is planning for a revision surgery to try to address this issue in the near future. 09/19/16. Seen by Dr. Cornell. The patient and her brother continue to report some pain associated with the chronic neck nonpressure ulcers but no increased drainage and they've been changing the silicon dressings as recommended to protect the soft-tissue radiation injured skin and protect against abrasion caused by the tracheosteomy tube. Of note, the patient feels as though the stoma may gradually be tightening as she continues to have some difficulty replacing the tube after taking it out. She also reports some persistent productive coughing and nasal drainage in the evenings and through the night and feels it may be related to allergies. 09/01/16. Seen by Dr. Cornell. The patient's brother who's present today reports that the patient's silicon dressings are being changed less frequently than recommended and in washing them the adherence is deteriorating which may be leading to loss of function in terms of protecting the underlying irradiated skin and neck ulcers. She does not report increased drainage or pain associated with the neck ulcers today. 08/28/16. Seen by Dr. Cornell. The patient removed her tracheostomy tube in clinic today and is having difficulty replacing it. She's a bit anxious at the time of exam but is breathing without distress or audible stridor. Regarding her chronic neck soft tissue radiation ulcers, there's no new issues to report and she's been dressing them as recommended. 08/21/16. Seen by Dr. Cornell. The patient reports continued pain and drainage associated with the chronic soft tissue radiation ulcer along the margin of her tracheostomy stoma. She and her caregiver are dressing it as recommended and she's completed her course of antibiotics those treating the recently cultured MRSA. 08/15/16. Seen by Dr. Cornell. The patient reports increased pain associated with the chronic soft tissue radiation neck ulcers since her last visit and her caregiver reports some thick overlying drainage around the mid-line ulcer adjacent to the tracheostomy stoma. She does not report fevers or feeling unwell however and has been applying topical antibiotic to the ulcers as recommended. 08/08/16. Seen by Dr. Cornell. The patient reports continued pain associated with the chronic anterior neck non-pressure ulcers and they've been applying topical gentamicin to treat the recurrent MRSA positive wound cutlures. She's also wearing her silicon dressing as recommended to help protect the soft tissue radiation injury of the skin from abrasion caused by her tracheostomy tube strap. 08/01/16. Seen by Dr. Cornell. The patient's caregiver reports improvement in terms of pain and drainage associated with the chronic neck ulcers. They've been applying topical gentamicin as recommended for the chronic wound infections. 07/23/16. Seen by Dr. Cornell. The patient's caregiver reports improvement in terms of pain and drainage associated with the chronic neck ulcers overlying the soft tissue radiation injury that follow treatment for her laryngeal cancer years ago. They've been applying topical gentamicin as recommended for the chronic wound infections. 07/09/16. Seen by Finn Felton PA-C. The patient reports she has run out of the silicone strips that were fabricated by [employer] to reduce abrasion from her laryngostomy collar. She is using scar fade strips which are not staying in place. Her neck ulcers continue to be present under the collar. 06/25/16. Seen by Dr. Cornell. The patient's caregiver reports improvement in terms of pain and drainage associated with the chronic neck ulcers. They've been applying topical gentamicin as recommended for the chronic wound infections. 06/11/16. Seen by Dr. Cornell. The patient reports improvement in terms of pain and drainage associated with the chronic neck ulcers. She completed her course of ciprofloxacin which was treating the recurrent ulcer infections and she continues to apply topical gentamicin to the ulcer beds. 06/04/16. Seen by Dr. Cornell. The patient continues to report some pain and minimal drainage associated with the chronic neck ulcers are complicated by underlying soft tissue radiation injury. She was just discharged from the hospital for tracheobronchitis and continues on ciprofloxacin with cultures that have grown Pseudomonas, Staph, and Haemophilus. She does not report adverse side effects from antibiotics nor fevers or feeling unwell today although she continues to have a mild cough. 05/26/16. Seen by Finn Felton PA-C. The patient reports no increase in drainage or pain from her neck ulcers. 05/16/16. Seen by Dr. Cornell. The patient does not report significant pain nor drainage associated with the recurrent neck soft tissue radiation ulcers since her last visit. She's been applying topical gentamicin as recommended and wearing the silicon dressings to protect from the trach tube strap rubbing on the irradiated skin.Also, her wound culture from the last visit grew MSSA. 05/09/16. Seen by Dr. Cornell. The patient feels her recurrent soft tissue radiation ulcers over the mid and left aspects of her neck are painful and draining for the past week. She reports wearing her silicon dressing but does not have it in place all of the time and has been leaving her tracheostomy tube strap off for extended periods during the day to help prevent abrasion. She's been applying topical gentamicin to the ulcers but is not currently on systemic antibiotics. 04/29/16. Seen by Finn Felton PA-C. The patient reports continued compliance with her silicone skin protector that she wears under her collar. She reports improvement in her neck ulcers, however she ran out of supplies a few days ago and now reports worsening of the ulcers. 04/11/16. Seen by Dr. Cornell. The patient reports decreased pain and drainage associated with the chronic neck non-pressure ulcers over the patient week and she's applying topical gentamicin to treat the chronic MRSA wound infection as recommended. She's also using silicon dressings to help better protect the soft tissue radiation injury to the neck which is heavily implicated in the recurrent and refractory nature of the ulcers. 04/04/16. Seen by Dr. Cornell. The patient reports an increase in the size and pain associated with the left neck non-pressure ulcer since her last visit. She's applying gentamicin ointment to all of the ulcers a recommended and using the silicon dressings to help prevent abrasion caused by the trach tube strap. 03/28/16. Seen by Dr. Cornell. The patient reports decreased pain and drainage associated with the chronic neck non-pressure ulcers over the patient week and she's restarted use of the silicon dressings again to protect the irradiated skin that's been breaking down under the trach strap and contributing to the recurrent and refractory nature of the ulcers. 03/21/16. Seen by Dr. Cornell. The patient reports decreased pain and drainage associated with the chronic neck non-pressure ulcers over the patient week and she continues applying topical gentamicin to treat the chronic MRSA wound infection. 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 03/13/15. Seen by Dr. Cornell. The patient reports decreased pain and drainage associated with the chronic neck non-pressure ulcers over the patient week since starting on doxycycline for a recurrent MRSA wound infection. She's now using silicon dressings to protect the irradiated skin over the neck that resulted from radiation therapy treating laryngeal cancer. She does not report adverse effects of the doxycycline and is also applying topical gentamicin daily to the ulcer sites. 03/06/16. Seen by Dr. Cornell. The patient reports persistent pain associated with the recurrent neck non-pressure ulcers and staff report they're larger and are draining based on the dressings. 02/28/16. Seen by Dr. Cornell. The patient returns with new ulcers overlying her soft tissue radiation neck injury that resulted following treatment for laryngeal cancer. She states she ran out of the silicon dressings she uses to protect the area from her trach tube strap and after this the ulcers appeared and are quite painful. Their draining however she does not report fevers. 11/28/15. Seen by Dr. Cornell. 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 11/21/15. Seen by Dr. Cornell. The patient reports some minimal pain associated with the chronic neck soft tissue radiation ulcer since her last visit. She also complains of right ear pain and has asked me to have look in the ear as it feels like there may be a foreign body present. She also reports a mild cough, sore throat, and feeling a bit unwell in general. 11/14/15. Seen by Dr. Cornell. The patient reports moderate pain but no significant drainage associated with the left neck soft tissue radiation ulcer since her last visit. 10/31/15. Seen by Dr. Cornell. The patient reports some pain associated with the left neck soft tissue radiation ulcer but no increased drainage from either ulcer nor pain associated with the middle soft tissue radiation ulcer. Her caregiver notes that they're running out of the silicon dressings and they've become nearly prohibitively expensive. 10/12/15 Seen by Finn Felton PA-C. The patient returns to our clinic after reconstructive scar- revision surgery on her radiation damaged neck. She has wounds that have been left to close by secondary intention and are slow to heal. In addition, her silicone strips that help hold her laringostomy collar in place continue to work well for her. 09/07/[address] Cornell. The patient presents with a new rash over the right neck overlying the soft tissue radiation injury. Of note, her very chronic wounds at the same site were recently healed. She dose not report pain, drainage, or skin breakdown associated with the rash. 08/24/[address] Cornell. The patient does not report pain or drainage associated with the chronic neck soft tissue radiation ulcers over the past few days and she's using the silicon dressings to cover the ulcers. 08/15/[address] Cornell. The patient nor her caregiver report significant pain or drainage from either the left or right neck soft tissue radiation ulcers over the past week and she's received her silicon dressings that are being used to prevent abrasion to the skin caused by her laryngostomy tube strap. 08/09/[address] Cornell. 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 Otherwise the right neck ulcers remain relatively stable and have minimal drainage over the past week. 08/02/[address] Cornell. The patient reports minimal discomfort associated with the chronic neck soft tissue radiation ulcers and her caregiver feels they've improved considerably over the past week while applying gentamicin ointment and using the silicon dressing to prevent abrasion from the trach strap. 07/26/[address] Cornell. The patient reports only moderate discomfort and minimal drainage associate with her remaining soft tissue radiation ulcers of the neck. 07/19/[address] Cornell. The patient's caregiver reports increased drainage on the dressings covering the neck soft tissue radiation ulcers and the patient reports some increased pain at the ulcer sites. They're also running out of the silicon dressings they' ve been using to protect the ulcers from abrasion caused by the overlying trach strap. She does not report any problems regarding the chronic left upper arm wound. 07/12/[address] Cornell. The patient does not report increased pain or drainage associated with her chronic neck soft tissue radiation ulcers and she's been using her silicon wound dressings daily. She feels her ulcers are much less painful since changing to the new dressings. 07/05/[address] Cornell. The patient reports a significant improvement in pain regarding her chronic neck soft tissue radiation ulcers since starting to use adherent silicon dressings to prevent abrasion caused by her trach strap. She does not report significant drainage from the ulcers. 06/22/[address] Cornell. The patient continues to report persistent pain associated with the chronic neck soft tissue radiation ulcers. 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 06/12/15 Seen by Finn Felton PA-C. The patient reports continued pain from her radiation neck ulcers. 06/05/15 Seen by Finn Felton PA-C. The patient reports continued pain and stable drainage from her neck radiation ulcers. She continues to use her favored dressings instead of ones that we have recommended for her. 05/21/15 Seen by Finn Felton PA-C. The patient reports continued pain and no change in drainage from her neck radiation ulcers and her arm and chest wounds. 05/08/15 Seen by Finn Felton PA-C. The patient reports continued pain and stable drainage from her neck radiation ulcers. Flores from [facility] attended part of the appointment to try fitting her for the laryngectomy collar protective prosthetic. 04/25/[address] Cornell. The patient continues to report significant pain associated with the chronic soft tissue radiation neck ulcers and the staff report at least moderate drainage on her dressings today. She does not report fevers or feeling unwell otherwise. 04/11/[address] Cornell. The patient been on levofloxacin and doxycycline for Pseudomonas and MRSA positive wounds cultures taken from her soft tissue radiation ulcers over the neck and around the laryngostomy wound. She still reports pain associated with the ulcers but indicates it's not as bad as last week. 04/05/[address] Cornell. The patient reports persistent pain associated with her neck soft tissue radiation ulcers. She's currently on levofloxacin and doxycycline for the Pseudomonas and MRSA positive culture taken at the last visit and she does not report adverse side effects. 03/28/2015 Seen by Finn Felton PA-C. The patient continues to complain of neck ulcer pain. In addition she again asks today why are they hurting. She has not been compliant with any of our attempts at specialized laryngectomy collar padding or dressings. 03/21/2015 Seen by Finn Felton PA-C. The patient returns with stable 6-7/10 constant pain from the radiation ulcers on her neck. She continues on Doxycycline and has finished her course of prednisone for a URI as prescribed by her PCP. He has recently not been able to keep the Radiagel sheets attached to her neck or tracheostomy collar and has gone back to using Xeroform gauze. 02/19/15 Seen by Finn Felton PA-C. The patient returns for evaluation of her radiation ulcers of the neck. She reports continued pain and her most recent dressings that we have trialed did not stay in place. 02/12/15 Seen by Finn Felton PA-C. The patient reports continued neck pain from her radiation ulcers as well as tightness in her surrounding neck tissues. She reports the pain is exacerbated by rubbing of her tracheostomy tube macias and by any palpation or instrumentation. Drainage has been minimal. 02/05/15 Seen by Finn Felton PA-C. The patient presents today with a new wound on her left lateral neck, on her irradiated tissue. This wound is 01/24/[address] Cornell. The patient reports a cough and feeling unwell the past few days. She continues on doxycycline and levofloxcacin for the recent MRSA and Pseudomonas positive wound culture. Of note, she arrives today with gauze dressings over her next ulcers as opposed to foam which has been recommended. 01/17/[address] Cornell. The patient's been started on doxycycline and levofloxacin for her wound culture from the last visit that grew MRSA again plus Pseudomonas which is new. She reports having a cough and low grade fever also and the staff report the left neck ulcer dressings as being quite wet. 01/12/[address] Cornell. The patient indicates the neck ulcer pain is a 6-7/ 10 today and states she's been adhering to our dressing change recommendations. She's not currently on antibiotics and does not report fever although she feels a bit under the weather. 01/05/[address] Cornell. The patient complains of 4/10 pain at the site of her remaining chronic neck ulcers. 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 12/18/14 Seen by Finn Felton PA-C. The patient continues to have difficulty securing her dressings and keeping them in place under her tracheostomy collar. She is planning on going deer hunting and will be away from our clinic for over 1 week. 12/12/[address] Cornell. The patient complains of significant right ear pain. Her left neck ulcer culture from the last visit grew MRSA and she's not currently on antibiotics at this time. Of note, the foam that we placed around the tracheostomy tube to prevent abrasion was not in place on the patient's arrival today. 12/08/[address] Cornell. The patient complains of some persistent pain at the site of the left neck ulcer but does not report fever or increased drainage. Of note, she's not changed her dressing since her last visit 3 days ago. 11/28/14 Seen by Finn Felton PA-C. The patient again reports right ear pain without drainage or disturbance in hearing. The dressing on her head wound has stayed in place and her neck dressings lasted less than 24hrs in place. Scalp wound pain has decreased. 11/28/14 Seen by Finn Felton PA-C. The patient has seen her PCP for her right ear issues and he has prescribed her Cefuroxime, which she is currently taking. She has kept her scalp dressing in place and reports continued neck pain and a new neck wound on the left. 11/14/14 Seen by Finn Felton PA-C. The patient's right sided neck wound and scalp wound are much improved today after she has been keeping her head wound covered and has loosened her trach collar. Both wounds are reportedly less painful than before. 11/07/14 Doc Z Surg: patient returns for follow-up of the radiation injury and mechanical abrasions wounds of the neck laterally and anteriorly adjacent to the tracheostomy straps which appear to have been chafing on this sensitive skin in the field of radiation. The padded protective dressing has been utilized since her last visit and shows marked improvement in all of the wounds. Also the scalp abrasions which appear to be fingernail scrapings have also improved markedly after the patient educated to avoid fingernails scratching on the scalp area. Question was raised regarding the possibly poor fitting tracheostomy tube but this appears normal and not problematic to my examination. At present I do not see any need for ENT reevaluation of the [id number] tracheostomy site. 10/26/[address] Cornell. The patient complains of recurrent right ear pain that's constant over the past week but does not report fever, sweats, or drainage from the ear. Her wound cultres from the scalp and neck ulcers grew MRSA on 10/04/14. She continues to report pain at these sites and has been unable to maintain dressings as recommended due to discomfort and the fact the scalp dressing falls off. 10/12/14 Seen by Finn Felton PA-C. The patient reports ear pain after completing HBOT. Her wounds still feel tight around her neck but are otherwise stable and more comfortable with her new foam neck dressings. 10/04/[address] Cornell. The patient feels the pain associated with her neck and scalp ulcers is improved and only noticeable intermittently. She arrived today with foam dressings over the neck ulcers which we started utilizing last week to minimize trauma from the tracheostomy tube harness to the skin and ulcers beneath. 09/27/[address] Cornell. The patient feels her neck ulcers and scalp wounds are less painful however the staff report that the dressing plan we implemented to help prevent abrasion to the neck ulcers does not seem to have been continued after the patient left clinic last week. She's now off of antibiotics and does not report increased drainage. 09/20/[address] Cornell. The patient feels her scalp and neck ulcer pain are improving since she's been on IV daptomycin. She also had a doppler study yesterday that rule out a left arm DVT however she still complains of swelling and discomfort in the arm. 09/06/[address] Cornell. The patient complains of continued pain and drainage associated with her scalp and neck ulcers. She's no longer on antibiotics and recently grew Enterococcus and resistant coag negative Staph from the ulcer sites respectively. 08/30/[address] Cornell. The patient reports continued pain at the neck and scalp ulcers and her scalp wound grew Enterococcus on 08/23/14. She's taking clindamycin and completed a course of azithromycin that were started in the ER due to a recurrent URI. 08/16/14 Seen by Finn Felton PA-C. The patient continues to take Keflex for her scalp wound bacterial infection. She reports it is now more painful and draining more than before. Her neck radiation wounds continue to feel tight. 08/14/14 Seen by Finn Felton PA-C. The patient complains of right ear pain and fullness which started today. She reports feeling like she might have a cold coming on. 08/09/[address] Cornell. The patient complains of persistent pain at the site of the neck ulcers and worsening pain at the scalp ulcer. She's taking doxycycline based on the most recent MSSA wound culture sensitivities from the neck ulcer and does not report any adverse side effects. 07/08/[address] Cornell. The patient feels the neck ulcer pain is improving and she's completed her course of doxycycline that was started last week. She still complains of significant pain a the site of the scalp lesion however. Her wound culture from 07/28 grew MSSA sensitive to doxycycline. 07/26/[address] Cornell. The patient complains of increased pain at the neck ulcers as well as the scalp lesion. She does not report increased drainage, fever, cough, or chills and states her previously reported right ear pain has improved. 07/14/[address] Cornell. The patient reports right ear pain with a sore throat but no fevers or cough. 07/11/14 Seen by Finn Felton PA-C. The patient reports less scalp pain and no drainage from her scalp wound. She continues to report a pulling type pain in and around her neck wounds. 07/04/14 Seen by Finn Felton PA-C. The patient has cut her fingernails short and reports that her scalp wound is hurting and itching less. She reports a new wound over an old abdominal scar today. It has been present for 5 days and she is not sure how it occurred. 06/20/14 The patient feels her neck ulcer pain as well as the scalp lesion pain have improved since starting doxycycline. She continues to apply hydrogel and Xeroform to the neck ulcers to keep them moist. Otherwise she's tolerating HBOT without difficulty and has made significant progress in the healing of the neck ulcers throughout this most recent series of dives. 06/13/14 The patient indicates that her neck ulcers 'feel tight' and she still has some discomfort at the scalp lesions. She also complains of significant pruritis in the area of the scalp lesions. She's been taking taking doxycycline for the past week to treat a MRSA positive culture of the scalp ulcer. 06/06/14 The patient reports continued pain from all of her wounds and frustration that her scalp wound has not healed despite her not scratching it. 05/31/14 The patient's here for HBOT today but complains of new left facial pain over the angle of the mandible that started yesterday. She does not complain of ear pain or an dental or intraoral pain but has been treated in the hospital recently for recurrent pneumonia. She's also been reviewed in the past 3 months by her oncologist and reportedly is cancer free. 05/30/14 The patient does not report increased pain or drainage from her neck wounds nor scalp lesion. 05/18/14 The patient complains of significant pain at the left 3rd finger wound as well as her chronic scalp wound. Otherwise she does not report significant pain nor drainage from the neck wounds. 05/12/14 The patient does not report increased pain or drainage from her neck ulcers nor the wound on the scalp. 05/04/14 The patient reports increased pain at the left neck wound and apparently the barrier dressing slipped down and her guaze became adherent resulting in a skin tear upon removal. Otherwise she continues to complain of pain at both neck wounds and the scalp wound. 05/02/14 The patient was seen today in the HBOT treatment room for complaints of a productive cough. She was recently discharged from the hospital with a diagnosis of tracheobronchitis and is finishing a course of Levaquin. Cough is described as yellow and thick and is difficult to clear from her tracheostomy. 04/21/14 The patient complains of persistent ear pain in the right ear despite using antibiotic drops Rx'd by her ENT provider last week. She does not report drainage or fever. 04/18/14 The patient states her cough is improving and she's still on antibiotics from her recent admission for pneumonia. She does not report increased drainage or pain from the neck ulcers but states her right ear pain has returned. She was seen by ENT who felt the lesion in the external canal was traumatic and she was given an Rx for ear drops which she states she's been using. She also reports recurrence of the painful left scalp wound that was recently healed. 04/11/14 The patient complains of a cough productive of green sputum for the past few days that's particularly worse when lying flat. She indicates that she feels generally unwell and weak and is questioning whether she can tolerate HBOT today. 04/05/14 The patient continues to complain of right ear pain however does not report bleeding from the ear today. Of note, she was reviewed for this problem last week and a shallow ulcer in the right external ear canal was the only finding. 03/30/14 The patient reports continued 5/10 pain from her neck wound which is described as a constant, pulling type pain, which is exacerbated by flexing, extending or rotating her neck. 03/29/14 The patient completed her HBOT dive today and now complains of blood draining from the right ear. She does not report pain now nor during the dive today. 03/23/14 The patient reports increased pain from her medial neck wounds as well as from her scalp wound. The pain is described as a throbbing and sometimes pulling pain that is constant in nature and has no exacerbating factors, nor is it associated with any activity. She does not report fever, chills or increased wound drainage. Additionally the patient reports her [facility] doctors are considering a reconstructive surgical revision of her neck once her current wounds heal. She brings with her today a note from her [facility] doctors on a prescription pad, on which is written Please continue hyperbaric oxygen therapy. 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/14) Ear pain (right side; recurrent) Chronic ulcer (scalp; Enterococcus positive culture on 08/23/14; MRSA positive on 10/04/14) Complaints and Symptoms This information was obtained from the patient Patient complains of: General Notes: I have reviewed and concur with the Review of Systems and Past Family Social History documents completed by the clinician, I have reviewed and concur with the Wound Assessment document completed by the clinician Ear/Nose/Mouth/Throat: Ear Pain Integumentary (Hair/Skin/Nails): Open Sore Musculoskeletal: Deformities, Muscle Weakness Prior Wound History: Bleeding, Drainage, Erythema, Pain Respiratory: Cough Patient denies complaints or symptoms related to: Cardiovascular (Central): Irregular heart beat Constitutional Symptoms (General Health): Chills, Fever, Marked Weight Change Ear/Nose/Mouth/Throat: Hearing Loss / Aid Gastrointestinal (GI): Nausea / Vomiting, Stomach/abdominal pain Hematologic/Lymphatic: Bleeding / Clotting Disorders, Bleeding Tendency Neurological: Loss of Protective Sensation Prior Wound History: Malodor Respiratory: Oxygen Use, Shortness of Breath Additional Information Does patient have a history of Cancer? Yes? Complete all questions.: Yes Location of Cancer: Neck Patient underwent Radiation Treatment? If yes, answer question below.: Yes OBJECTIVE Constitutional BP elevated; Afebrile; Alert and in no distress. Well developed. Alert. Clean appearing.. Height/Length: 66 in (167.64 cm), Weight: 229.4 lbs (104.27 kgs), BMI: 37, Temperature: 98.8 ?F (37.11 ?C), Pulse: 79 bpm, Respiratory Rate: 16 breaths/min, Blood Pressure: 162/93 mmHg, Pulse Oximetry: 98 %. Neck: Chronic skin contractures stable. Respiratory: No respiratory distress. Even respirations and without use of accessory muscles.. Integumentary (Hair, Skin) No periwound erythema, warmth, or significant drainage. No periwound rashes appreciated or noted otherwise.. Refer to appropriate clinician wound documentation for this visit; anterior mid neck ulcer extends to subcut and extends along a chord of scar tissue adjacent and right of the tracheostomy site, improved in terms of granulation and size; left neck ulcer now extends to subcut. Wound #36 Right, Proximal Neck is an acute Full Thickness Radiation Wound and has received a status of Not Healed. Subsequent wound encounter measurements are 6.9cm length x 1cm width x 0.1cm depth, with an area of 6.9 sq cm and a volume of 0.69 cubic cm. No tunneling has been noted. No sinus tract has been noted. No undermining has been noted. There is a moderate amount of serosanguineous drainage noted which has no odor. The patient reports a wound pain of level 7/10. The wound margin is attached. Wound bed has Yes epithelialization, No eschar, Yes slough, Yes bright red, pink, firm granulation. The periwound skin moisture is normal. The periwound skin color is normal. The periwound skin exhibited: Induration. The periwound skin did not exhibit: Brawny Induration, Edema, Excoriation, Callus, Crepitus, Fluctuance, Friable, Rash. The temperature of the periwound skin is WNL. Periwound skin does not exhibit signs or symptoms of infection. Local Pulse is N/A. 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 Subsequent wound encounter measurements are 1.4cm length x 0.8cm width x 0.1cm depth, with an area of 1.12 sq cm and a volume of 0.112 cubic cm. No tunneling has been noted. No sinus tract has been noted. No undermining has been noted. There is a moderate amount of serous drainage noted which has no odor. The patient reports a wound pain of level 4/10. The wound margin is attached. Wound bed has No epithelialization, No eschar, Yes slough, Yes pink, firm granulation. The periwound skin moisture is normal. The periwound skin color is normal. The periwound skin exhibited: Induration. The periwound skin did not exhibit: Brawny Induration, Edema, Excoriation, Callus, Crepitus, Fluctuance, Friable, Rash. The temperature of the periwound skin is WNL. Periwound skin does not exhibit signs or symptoms of infection. Local Pulse is N/A. Neurological: Cranial nerves grossly intact with symmetric function normal by informal observation.. ASSESSMENT Active Problems ICD-10 (Encounter Diagnosis) S11.89XD - Other open wound of other specified part of neck, subsequent encounter (Encounter Diagnosis) L59.8 - Other specified disorders of the skin and subcutaneous tissue related to radiation (Encounter Diagnosis) L98.492 - Non-pressure chronic ulcer of skin of other sites with fat layer exposed (Encounter Diagnosis) A49.01 - Methicillin susceptible Staphylococcus aureus infection, unspecified site PROCEDURES Wound #36 Wound #36 (Radiation Wound) is located on the right, proximal neck. A skin/ subcutaneous tissue level surgical debridement with a total area debrided of 7.59 sq cm was performed by Duy Cornell MD. Subcutaneous was removed along with devitalized tissue: exudate and slough. The following instrument(s) were used: curette. Pain control was achieved using EMLA lidocaine/prilocaine 2.5%/2.5%. A time out was conducted prior to the start of the procedure. A minimal amount of bleeding was controlled with n/a. The procedure was tolerated well with a pain level of 0 throughout and a pain level of 0 following the procedure. Post Debridement Measurements: 6.9cm length x 1.1cm width x 0.1cm depth; with an area of 7.59 sq cm and a volume of 0.759 cubic cm; Wound #50 Wound #50 (Radiation Wound) is located on the left neck. A skin/subcutaneous tissue level surgical debridement with a total area debrided of 1.26 sq cm was performed by Duy Cornell MD. Subcutaneous was removed along with devitalized tissue: exudate and slough. The following instrument(s) were used: curette. Pain control was achieved using EMLA lidocaine/prilocaine 2.5%/2.5%. A time out was conducted prior to the start of the procedure. A minimal amount of bleeding was controlled with n/a. The procedure was tolerated well with a pain level of 0 throughout and a pain level of 0 following the procedure. Post Debridement Measurements: 1.4cm length x 0.9cm width x 0.1cm depth; with an area of 1.26 sq cm and a volume of 0.126 cubic cm; Additional Information Muscle fascia or bone removed and sent to pathology?: No Muscle fascia or bone removed and sent to pathology?: No PLAN Wound Orders: Wound #36 Right, Proximal Neck Anesthetic Topical Xylocaine to wound bed. Cleanser Cleanse Wound: - Distilled water. Dressings Primary dressing: - Xeroform to cover wound. Cover and secure with: - Sterile gauze, secured with hypafix tape. Change Dressing: - Every other day. Wound #50 Left Neck Anesthetic Topical Xylocaine to wound bed. Cleanser Cleanse Wound: - Distilled water. Dressings Primary dressing: - Xeroform to cover wound. Cover and secure with: - Sterile gauze, secured with hypafix tape. Change Dressing: - Every other day. Additional Orders: Follow-Up Appointments Discharge from Outpatient Services. - To see Dr. Cornell at the [facility] clinic in one week. Scribing Attestation I attest, as the nurse, that I scribed these orders for the physician. I've reviewed the clinician's documentation and agree with the evaluation and plan as written. In addition the patient's ulcers demonstrate evidence of non-viable devitalized tissue and they will continue to benefit from sharp debridement to help promote granulation and expedite healing. Electronic Signature(s) Signed By: Date: Duy Cornell MD 01/11/2018 06:58:18 Entered By: Duy Cornell on 01/11/2018 06:47:36
== END ==
PROVIDERS: PCP Internal Medicine; Visit Provider Internal Medicine
DX: L59.8 Other specified disorders of the skin and subcutaneous tissue related to radiation (principal); L98.492 Non-pressure chronic ulcer of skin of other sites with fat layer exposed; S11.89XA Other open wound of other specified part of neck, initial encounter; A49.01 Methicillin susceptible Staphylococcus aureus infection, unspecified site
CPT/HCPCS: 11042

== ENCOUNTER 2018-01-25 11:40 | Emergency (ER) | payer OTHER, MEDICAID, SELFPAY ==
[2018-01-04 20:02] VITALS: BMI 38.9
[2018-01-25] VITALS (10 sets, daily range): BP systolic 107–168; BP diastolic 41–72; PULSE 58–87; RESP 18–20; TEMP 36.3; O2SAT 92–100
--- NOTE | 2018-01-25 14:41 | PC.NURSE ---
pt states the leg is swollen, it doesn't appear to be swollen, pt states the whole leg is sore now.
[2018-01-25] MEDS: ACETAMINOPHEN 325 MG TABLET 650 MG PO (14:44)
--- NOTE | 2018-01-25 15:31 | ED.SKABFB ---
HPI - Skin/Abscess/Foreign Bdy <LORI Steiner - Last Filed: 01/25/18 22:01> General Chief complaint: Skin/Abscess/Foreign Body Stated complaint: Insect Bite left leg,worsening,also Chest Pain Time Seen by Provider: 01/25/18 14:52 Source: patient Mode of arrival: ambulatory Limitations: no limitations History of Present Illness HPI narrative: 57-year-old female with history of COPD and has a tracheostomy that is a former smoker here for complaint of pain into her left calf area. She states that she was seen at [facility] for this and was diagnosed with an insect bite. She was placed on antibiotics to prevent infection. She states she still has pain into the left calf area. She also reports having chest pain. She denies any shortness of breath. No nausea vomiting. Positive p.o. intake. No fevers or chills. She denies any trauma to the left calf area. She denies any other concerns or complaints at this time. Related Data Home Medications Medication Instructions Recorded Confirmed albuterol sulfate 1 dose INHALATION QIDP PRN #180 01/25/16 01/25/18 docusate sodium 100 mg PO BID #0 01/25/16 01/25/18 ferrous gluconate 324 mg PO DAILY #0 08/28/16 01/25/18 omeprazole 20 mg PO DAILY #0 08/28/16 01/25/18 acetaminophen 650 mg PO Q6HP PRN #0 10/29/16 01/25/18 amitriptyline 25 mg PO BEDTIME #0 01/22/17 01/25/18 ascorbic acid (vitamin C) 500 mg PO DAILY #0 06/10/17 01/25/18 fexofenadine 180 mg PO DAILY #0 06/10/17 01/25/18 nystatin 1 dose PO DIRECTED #0 06/10/17 01/25/18 sodium chloride 0.9 % 1 vial QID PRN #0 06/10/17 01/25/18 citalopram 40 mg PO DAILY 09/21/17 01/25/18 lisinopril 10 mg PO DAILY 09/21/17 01/25/18 tramadol 50 mg PO Q6HP PRN 09/21/17 01/25/18 levothyroxine 1 tab PO DAILY 01/04/18 01/25/18 estradiol 1 mg PO DAILY 01/25/18 01/25/18 Previous Rx's Medication Instructions Recorded levofloxacin [Levaquin] 750 mg PO DAILY #7 tab 01/06/18 prednisone 10 mg PO BID #10 tab 01/06/18 Allergies Allergy/AdvReac Type Severity Reaction Status Date / Time hydrocodone Allergy Intermediate RASH/HIVES Verified 01/25/18 12:02 Penicillins Allergy Intermediate RASH/HIVES Verified 01/25/18 12:02 metronidazole Allergy Mild RASH Verified 01/25/18 12:02 diphenhydramine Allergy Unknown Verified 01/25/18 12:02 [DIPHENHYDRAMINE] ibuprofen Allergy Unknown Verified 01/25/18 12:02 oxycodone [OXYCODONE] Allergy Unknown Verified 01/25/18 12:02 venom-wasp Allergy Verified 01/25/18 12:02 ranitidine AdvReac Intermediate SOB/DIZZY Verified 01/25/18 12:02 sulfamethoxazole AdvReac Mild GI UPSET Verified 01/25/18 12:02 [From Bactrim] trimethoprim [From Bactrim] AdvReac Mild GI UPSET Verified 01/04/18 14:30 fentanyl [FENTANYL] AdvReac Unknown vomiting Verified 01/04/18 14:30 ANTACIDS AdvReac Unknown Uncoded 01/04/18 14:30 Review of Systems <LORI Steiner - Last Filed: 01/25/18 22:01> Constitutional Denies chills, Denies fatigue, Denies fever(s), Denies lethargy and Denies weakness Eyes Denies change in vision, Denies eye discharge, Denies irritation and Denies loss of vision ENT Ears, Nose, Mouth, and Throat: Denies change in voice, Denies neck pain and Denies sore throat Cardiovascular Reports chest pain with activity, Denies dyspnea and Denies dyspnea on exertion Respiratory Denies cough, Denies dyspnea, Denies dyspnea on exertion and Denies wheezing Gastrointestinal Gastrointestinal: Denies abdominal pain, Denies change in bowel habits, Denies diarrhea, Denies nausea and Denies vomiting Genitourinary Denies hematuria, Denies flank pain, Denies urinary incontinence and Denies urinary urgency Musculoskeletal Denies neck pain Comments: Left calf pain Integumentary/Breasts Denies pruritus, Denies erythema, Denies rash and Denies wounds Neurologic Denies confusion, Denies loss of vision and Denies weakness Psychiatric Denies anxiety, Denies confusion, Denies depression, Denies homicidal ideation and Denies suicidal ideation Endocrine Denies fatigue and Denies flushing Allergic/Immunologic Denies wheezing Exam <LORI Steiner - Last Filed: 01/25/18 22:01> Initial Vital Signs Initial Vital Signs: Vital Signs Pulse Rate 87 01/25/18 13:31 Pulse Oximetry 99 01/25/18 13:31 Const General: cooperative and well developed Nutritional Appearance: well nourished Orientation: alert, awake, oriented x3 and not confused [facility] Mouth: oral mucosae normal and moist mucous membranes Eyes Conjunctivae: conjunctivae normal Sclera: sclerae normal Pupils: PERRL EOM: EOM intact bilaterally Resp Effort & Inspection: normal respiratory effort, able to speak in complete sentences, no respiratory distress and no use of accessory muscles Auscultation: clear to auscultation bilaterally, no rales, no rhonchi and wheezes inspiratory wheezes and lower bilaterally Cardio Rate: regular rate Rhythm: regular rhythm Heart Sounds: no click, no gallops, no murmurs and no rubs Pulses: normal peripheral pulses GI Inspection: non-distended Palpation: soft, no hepatosplenomegaly, No guarding, No pulsatile mass and No tender Auscultation: normal bowel sounds Skin General: no rashes or lesions noted, No jaundice and No petechiae Neuro General: alert, oriented x3, gait normal and no focal motor deficits Speech: speech normal Extrem Right lower extremity: hip/thigh Other: 3-4 cm circular area to the left calf area with ecchymoses. No surrounding erythema. No abscess appreciated <Ines Perez MD - Last Filed: 01/26/18 07:39> Initial Vital Signs Initial Vital Signs: Vital Signs Pulse Rate 87 01/25/18 13:31 Pulse Oximetry 99 01/25/18 13:31 Scores <LORI Steiner - Last Filed: 01/25/18 22:01> HEART Score Heart Score history: Slightly Suspicious Heart Score EKG: Normal Heart Score Age: 45-64 years old Heart Score risk factors: 1-2 risk factors Heart Score troponin: < or = to normal limit Heart Score Total: 2 PERC Score Age greater than or equal to 50 years: Yes Heart rate greater than or equal to 100 bpm: No Room Air O2 Sat less than 95%: No Unilateral leg swelling: No Recent trauma or surgery: No Hemoptysis: No Prior PE or DVT: No Hormone Use: Yes Total PERC Score: 2 Course <LORI Steiner - Last Filed: 01/25/18 22:01> Orders Ordered: Discontinued Medications Acetaminophen (Tylenol) 650 mg PO NOW ONE Stop: 01/25/18 13:18 Last Admin: 01/25/18 14:44 Dose: 650 mg Albuterol/Ipratropium (Duoneb) 3 ml INH NOW ONE Stop: 01/25/18 16:15 Last Admin: 01/25/18 16:44 Dose: 3 ml Vital Signs - 8 hr 01/25/18 15:20 01/25/18 15:43 01/25/18 16:45 Temperature Pulse Rate 66 58 L Respiratory Rate Blood Pressure [Left Arm] 122/72 Pulse Oximetry 93 93 100 01/25/18 18:00 01/25/18 18:16 01/25/18 19:00 Temperature Pulse Rate 65 68 69 Respiratory Rate 18 18 18 Blood Pressure [Left Arm] 107/41 L 107/41 L 122/72 Pulse Oximetry 95 94 95 01/25/18 20:03 Temperature 97.4 F L Pulse Rate 71 Respiratory Rate 20 Blood Pressure [Left Arm] 115/65 Pulse Oximetry 95 <Ines Perez MD - Last Filed: 01/26/18 07:39> Orders Ordered: Discontinued Medications Acetaminophen (Tylenol) 650 mg PO NOW ONE Stop: 01/25/18 13:18 Last Admin: 01/25/18 14:44 Dose: 650 mg Albuterol/Ipratropium (Duoneb) 3 ml INH NOW ONE Stop: 01/25/18 16:15 Last Admin: 01/25/18 16:44 Dose: 3 ml Vital Signs - 8 hr 01/25/18 15:20 01/25/18 15:43 01/25/18 16:45 Temperature Pulse Rate 66 58 L Respiratory Rate Blood Pressure [Left Arm] 122/72 Pulse Oximetry 93 93 100 01/25/18 18:00 01/25/18 18:16 01/25/18 19:00 Temperature Pulse Rate 65 68 69 Respiratory Rate 18 18 18 Blood Pressure [Left Arm] 107/41 L 107/41 L 122/72 Pulse Oximetry 95 94 95 01/25/18 20:03 Temperature 97.4 F L Pulse Rate 71 Respiratory Rate 20 Blood Pressure [Left Arm] 115/65 Pulse Oximetry 95 MDM - Skin/Abscess/Foreign Bdy <LORI Steiner - Last Filed: 01/25/18 22:01> Lab Data Result diagrams: 01/25/18 16:35 01/25/18 16:35 Lab Results 01/25/18 01/25/18 01/25/18 Range/Units 16:35 16:35 16:35 WBC 6.9 (4.5-11.0) X10^3/uL RBC 4.09 (4.0-5.2) X10^6/uL Hgb 12.8 (12.0-16.0) g/dL Hct 37.7 (36-46) % MCV 92.2 (80-100) fL MCH 31.3 (26-34) PG MCHC 34.0 (30-36) % RDW 13.5 (11.6-14.8) % Plt Count 215 (150-400) X10^3/uL Neut % (Auto) 75.8 H (50-75) % Lymph % (Auto) 9.6 L (25-40) % Bonner % (Auto) 9.0 (3-14) % Eos % (Auto) 4.3 H (2-4) % Baso % (Auto) 1.3 (0-2) % Neut # (Auto) 5300 (5270-8164) /uL D-Dimer < 200 (<230) ng/mL Sodium 136 L (137-145) mmol/L Potassium 3.6 (3.4-5.1) mmol/L Chloride 101 (98-107) mmol/L Carbon Dioxide 28 (22-32) mmol/L BUN 13 (7-17) mg/dL Creatinine 0.50 L (0.52-1.04) mg/dL Estimated GFR > 60.0 (>60) mL/min BUN/Creatinine Ratio 26.0 H (6-22) Glucose 80 (70-100) mg/dL Calcium 8.1 L (8.4-10.2) mg/dL Total Bilirubin 0.5 (0.2-1.3) mg/dL AST 27 (14-36) IU/L ALT 27 (9-52) IU/L Alkaline Phosphatase 49 (38-126) U/L Total Creatine Kinase 89 (30-135) U/L CK-MB (CK-2) TNP CK-MB (CK-2) Rel Index TNP Troponin I < 0.012 (0.01-0.034) ng/mL Total Protein 6.0 L (6.3-8.2) g/dL Albumin 3.8 (3.5-5.0) g/dL Globulin 2.2 (1.7-4.1) g/dL Albumin/Globulin Ratio 1.7 (1.0-2.8) Lipase 86 (23-300) U/L 01/25/18 Range/Units 18:25 WBC (4.5-11.0) X10^3/uL RBC (4.0-5.2) X10^6/uL Hgb (12.0-16.0) g/dL Hct (36-46) % MCV (80-100) fL MCH (26-34) PG MCHC (30-36) % RDW (11.6-14.8) % Plt Count (150-400) X10^3/uL Neut % (Auto) (50-75) % Lymph % (Auto) (25-40) % Bonner % (Auto) (3-14) % Eos % (Auto) (2-4) % Baso % (Auto) (0-2) % Neut # (Auto) (8434-2078) /uL D-Dimer (<230) ng/mL Sodium (137-145) mmol/L Potassium (3.4-5.1) mmol/L Chloride (98-107) mmol/L Carbon Dioxide (22-32) mmol/L BUN (7-17) mg/dL Creatinine (0.52-1.04) mg/dL Estimated GFR (>60) mL/min BUN/Creatinine Ratio (6-22) Glucose (70-100) mg/dL Calcium (8.4-10.2) mg/dL Total Bilirubin (0.2-1.3) mg/dL AST (14-36) IU/L ALT (9-52) IU/L Alkaline Phosphatase (38-126) U/L Total Creatine Kinase (30-135) U/L CK-MB (CK-2) CK-MB (CK-2) Rel Index Troponin I < 0.012 (0.01-0.034) ng/mL Total Protein (6.3-8.2) g/dL Albumin (3.5-5.0) g/dL Globulin (1.7-4.1) g/dL Albumin/Globulin Ratio (1.0-2.8) Lipase (23-300) U/L Urine Dip Bedside Urine Glucose Negative Bedside Urine Bilirubin - Negative Bedside Urine Ketone - Negative Urine Specific [place] 1.020 Bedside Urine Occult Blood - Negative Bedside Urine pH 6.0 Bedside Urine Protein - Negative Bedside Urine Urobilinogen - Negative Bedside Urine Nitrite - Negative Bedside Urine Leukocytes - Negative Esterase Imaging Data CT scan - abdomen: Radiologist's impression: [address] [address] [address] Scan Report Signed Patient: Nai Zeng [facility]#: [id number] : 1Acct:[id number] Age/Sex: 57 / FDate of Service: 01/25/18 Loc: ED Accession Number: [id number] Procedure: CT angio chest PE protocol Ordering Provider: Nba Aaron PROCEDURE: CT ANGIO CHEST PE PROTOCOL INDICATIONS: Left leg pain and chest pain TECHNIQUE: After the administration of intravenous contrast, 2 mm thick sections acquired from the pulmonary apices to the posterior costophrenic angles. 3-dimensional maximum intensity projection (MIP) coronal and sagittal reformats were then acquired through the thorax. For radiation dose reduction, the following was used: automated exposure control, adjustment of mA and/or kV according to patient size. COMPARISON: [facility], CT, CHEST/ABDOMEN WITHOUT CONTRAST, 02/26/2015, 9:34. [facility], CR, XR CHEST 1V, 01/05/2018, 5:54. [facility], CR, XR CHEST 1V, 01/25/2018, 15:48. FINDINGS: Image quality: Excellent. Pulmonary arteries: Pulmonary arteries are normal in size, and demonstrate no intraluminal filling defects to suggest central pulmonary embolism. Lungs and pleura: A tracheostomy tube is seen in its expected location. Lungs are clear. No pleural effusions or pneumothorax. Central and peripheral airways are patent. Mediastinum: Heart size is normal, without pericardial effusion. Coronary artery calcifications are seen. No mediastinal or hilar adenopathy. Thoracic aorta is normal in caliber and enhancement. Esophagus is normal in caliber, without a significant hiatal hernia. Bones and chest wall: No suspicious bony lesions. Ribs and thoracic spine appear intact throughout. Age-appropriate bony degenerative changes are seen. Thyroid gland is not seen. No axillary or supraclavicular adenopathy. There are lower neck postoperative clips present. Abdomen: Visualized upper abdominal solid organs appear normal in the early arterial phase of enhancement. IMPRESSION: Negative for pulmonary embolism. Postoperative changes with tracheostomy tube. No thyroid can be seen. Dictated by: Colin Pinon M.D. on 01/25/2018 at 16:29 Approved by: Colin Pinon M.D. on 01/25/2018 at 16:32 Chest x-ray: Radiologist's impression: [place] [address] XRay Report Signed Patient: Nai Zeng [facility]#: [id number] : 1960cct:[id number] Age/Sex: 57 / FDate of Service: 01/25/18 Loc: ED Accession Number: [id number] Procedure: XR chest 1V Ordering Provider: Nba Aaron PROCEDURE: XR CHEST 1V INDICATIONS: Chest pain TECHNIQUE: One view of the chest was acquired. COMPARISON: [facility], , XR CHEST 1V, 01/05/2018, 5:54. FINDINGS: Surgical changes and devices: Surgical clips projecting in the base of the neck bilaterally. Lungs and pleura: No pleural effusions or pneumothorax. Scattered atelectasis/scarring. No acute consolidation. Eventration of the right hemidiaphragm. Mediastinum: Mediastinal contours appear normal. Heart size is normal. Bones and chest wall: No suspicious bony lesions. Overlying soft tissues appear unremarkable. IMPRESSION: No acute consolidation. Scattered scarring/atelectasis. Dictated by: Augusto Royal M.D. on 01/25/2018 at 15:58 Approved by: Augusto Royal M.D. on 01/25/2018 at 16:00 ECG Data Interpretation: EKG shows normal sinus rhythm with no ST elevation or depression. No ectopy. Ventricular rate is 74. Pr interval 158. QRs of 105. QT of 407. MDM Narrative Medical decision making narrative: CBC and Chem panel were obtained were unremarkable. Chest x-ray was obtained was negative for any acute findings. Patient had elevated heart rate along with left lower extremity pain and chest pain PE protocol chest CT was obtained was negative for PE. Ultrasound left lower extremity was negative for blood clot. Two sets of cardiac enzymes were obtained were unremarkable. Pain into left lower extremity presents as contusion. Chest pain does not present as being cardiac in nature suspect chest wall pain. However will have patient follow up with primary care provider in the next couple of days for re-evaluation. If any worsening symptoms return to the emergency room. Use [id number] Tylenol as needed for any discomfort <Ines Perez MD - Last Filed: 01/26/18 07:39> Lab Data Lab Results 01/25/18 01/25/18 01/25/18 Range/Units 16:35 16:35 16:35 WBC 6.9 (4.5-11.0) X10^3/uL RBC 4.09 (4.0-5.2) X10^6/uL Hgb 12.8 (12.0-16.0) g/dL Hct 37.7 (36-46) % MCV 92.2 (80-100) fL MCH 31.3 (26-34) PG MCHC 34.0 (30-36) % RDW 13.5 (11.6-14.8) % Plt Count 215 (150-400) X10^3/uL Neut % (Auto) 75.8 H (50-75) % Lymph % (Auto) 9.6 L (25-40) % Bonner % (Auto) 9.0 (3-14) % Eos % (Auto) 4.3 H (2-4) % Baso % (Auto) 1.3 (0-2) % Neut # (Auto) 5300 (9166-6090) /uL D-Dimer < 200 (<230) ng/mL Sodium 136 L (137-145) mmol/L Potassium 3.6 (3.4-5.1) mmol/L Chloride 101 (98-107) mmol/L Carbon Dioxide 28 (22-32) mmol/L BUN 13 (7-17) mg/dL Creatinine 0.50 L (0.52-1.04) mg/dL Estimated GFR > 60.0 (>60) mL/min BUN/Creatinine Ratio 26.0 H (6-22) Glucose 80 (70-100) mg/dL Calcium 8.1 L (8.4-10.2) mg/dL Total Bilirubin 0.5 (0.2-1.3) mg/dL AST 27 (14-36) IU/L ALT 27 (9-52) IU/L Alkaline Phosphatase 49 (38-126) U/L Total Creatine Kinase 89 (30-135) U/L CK-MB (CK-2) TNP CK-MB (CK-2) Rel Index TNP Troponin I < 0.012 (0.01-0.034) ng/mL Total Protein 6.0 L (6.3-8.2) g/dL Albumin 3.8 (3.5-5.0) g/dL Globulin 2.2 (1.7-4.1) g/dL Albumin/Globulin Ratio 1.7 (1.0-2.8) Lipase 86 (23-300) U/L 01/25/18 Range/Units 18:25 WBC (4.5-11.0) X10^3/uL RBC (4.0-5.2) X10^6/uL Hgb (12.0-16.0) g/dL Hct (36-46) % MCV (80-100) fL MCH (26-34) PG MCHC (30-36) % RDW (11.6-14.8) % Plt Count (150-400) X10^3/uL Neut % (Auto) (50-75) % Lymph % (Auto) (25-40) % Bonner % (Auto) (3-14) % Eos % (Auto) (2-4) % Baso % (Auto) (0-2) % Neut # (Auto) (5139-9304) /uL D-Dimer (<230) ng/mL Sodium (137-145) mmol/L Potassium (3.4-5.1) mmol/L Chloride (98-107) mmol/L Carbon Dioxide (22-32) mmol/L BUN (7-17) mg/dL Creatinine (0.52-1.04) mg/dL Estimated GFR (>60) mL/min BUN/Creatinine Ratio (6-22) Glucose (70-100) mg/dL Calcium (8.4-10.2) mg/dL Total Bilirubin (0.2-1.3) mg/dL AST (14-36) IU/L ALT (9-52) IU/L Alkaline Phosphatase (38-126) U/L Total Creatine Kinase (30-135) U/L CK-MB (CK-2) CK-MB (CK-2) Rel Index Troponin I < 0.012 (0.01-0.034) ng/mL Total Protein (6.3-8.2) g/dL Albumin (3.5-5.0) g/dL Globulin (1.7-4.1) g/dL Albumin/Globulin Ratio (1.0-2.8) Lipase (23-300) U/L Urine Dip Bedside Urine Glucose Negative Bedside Urine Bilirubin - Negative Bedside Urine Ketone - Negative Urine Specific [place] 1.020 Bedside Urine Occult Blood - Negative Bedside Urine pH 6.0 Bedside Urine Protein - Negative Bedside Urine Urobilinogen - Negative Bedside Urine Nitrite - Negative Bedside Urine Leukocytes - Negative Esterase Discharge Plan Departure Patient Disposition: Home Clinical Impression: Contusion of leg, left, Acute chest wall pain Discharge Date/Time: 01/25/18 20:20 Interventions: ED Discharge Assessment Last Done: 01/25/18 20:20 Instructions: DI for Contusion Activity Restrictions/Additional Instructions: Laboratory results and imaging today were unremarkable. Signs and symptoms presents as contusion to left leg causing the discomfort and chest wall pain. Use [id number] Tylenol as needed for any discomfort. Follow up with her primary care provider in the next few days for re-evaluation. For any worsening symptoms return to the emergency room. Prescriptions: No Action albuterol sulfate 2.5 MG/3 ML solution for nebulization 1 dose Inhalation QIDP PRN (Reason: Shortness Of Breath) Qty: 180 RF: 0 docusate sodium 100 MG capsule 100 mg PO BID Qty: 0 RF: 0 ferrous gluconate 324 MG tablet 324 mg PO DAILY Qty: 0 RF: 0 omeprazole 20 MG capsule,delayed release(DR/EC) 20 mg PO DAILY Qty: 0 RF: 0 acetaminophen 325 MG tablet 650 mg PO Q6HP PRN (Reason: Pain, Mild) Qty: 0 RF: 0 amitriptyline 25 MG tablet 25 mg PO BEDTIME Qty: 0 RF: 0 ascorbic acid (vitamin C) 500 MG tablet 500 mg PO DAILY Qty: 0 RF: 0 fexofenadine 180 MG tablet 180 mg PO DAILY Qty: 0 RF: 0 nystatin 100,000 UNIT/1 ML suspension 1 dose PO DIRECTED Qty: 0 RF: 0 sodium chloride 0.9 % 10 ML solution 1 vial QID PRN (Reason: irrigate tracheostomy) Qty: 0 RF: 0 citalopram 40 mg tablet 40 mg PO DAILY RF: 0 lisinopril 10 mg tablet 10 mg PO DAILY RF: 0 tramadol 50 MG tablet 50 mg PO Q6HP PRN (Reason: Pain, Moderate) RF: 0 estradiol 1 mg tablet 1 mg PO DAILY RF: 0 levothyroxine 88 mcg tablet 1 tab PO DAILY RF: 0 prednisone 20 mg tablet 10 mg PO BID Qty: 10 RF: 0 levofloxacin [Levaquin] 750 mg tablet 750 mg PO DAILY Qty: 7 RF: 0 Referrals: Eusebio Hammer MD [Primary Care Provider] -
--- NOTE | 2018-01-25 15:42 | DI.US.S_ITS ---
PROCEDURE: US PERIPH VENOUS LOW EXTREM LT INDICATIONS: Pain to left calf area TECHNIQUE: Real-time imaging, as well as color and pulse Doppler interrogation, were performed of the lower extremity deep veins from the inguinal ligament to the popliteal fossa. COMPARISON: None. FINDINGS: The deep veins are normally compressible, and free of intraluminal thrombus. Color and pulse Doppler demonstrate normal phasic intraluminal flow. There is normal augmentation response to distal compression maneuver. IMPRESSION: No evidence of left lower extremity deep vein thrombosis. Dictated by: Dean Beyer M.D. on 01/25/2018 at 15:58 Approved by: Dean Beyer M.D. on 01/25/2018 at 15:58
--- NOTE | 2018-01-25 15:43 | DI.RAD.S_ITS ---
PROCEDURE: XR CHEST 1V INDICATIONS: Chest pain TECHNIQUE: One view of the chest was acquired. COMPARISON: [facility], CR, XR CHEST 1V, 01/05/2018, 5:54. FINDINGS: Surgical changes and devices: Surgical clips projecting in the base of the neck bilaterally. Lungs and pleura: No pleural effusions or pneumothorax. Scattered atelectasis/scarring. No acute consolidation. Eventration of the right hemidiaphragm. Mediastinum: Mediastinal contours appear normal. Heart size is normal. Bones and chest wall: No suspicious bony lesions. Overlying soft tissues appear unremarkable. IMPRESSION: No acute consolidation. Scattered scarring/atelectasis. Dictated by: Augusto Royal M.D. on 01/25/2018 at 15:58 Approved by: Augusto Royal M.D. on 01/25/2018 at 16:00
--- NOTE | 2018-01-25 15:46 | ED_ITS ---
HPI - Skin/Abscess/Foreign Bdy <LORI Steiner - Last Filed: 01/25/18 22:01> General Chief complaint: Skin/Abscess/Foreign Body Stated complaint: Insect Bite left leg,worsening,also Chest Pain Time Seen by Provider: 01/25/18 14:52 Source: patient Mode of arrival: ambulatory Limitations: no limitations History of Present Illness HPI narrative: 57-year-old female with history of COPD and has a tracheostomy that is a former smoker here for complaint of pain into her left calf area. She states that she was seen at [facility] for this and was diagnosed with an insect bite. She was placed on antibiotics to prevent infection. She states she still has pain into the left calf area. She also reports having chest pain. She denies any shortness of breath. No nausea vomiting. Positive p.o. intake. No fevers or chills. She denies any trauma to the left calf area. She denies any other concerns or complaints at this time. Related Data Home Medications Medication Instructions Recorded Confirmed albuterol sulfate 1 dose INHALATION QIDP PRN #180 01/25/16 01/25/18 docusate sodium 100 mg PO BID #0 01/25/16 01/25/18 ferrous gluconate 324 mg PO DAILY #0 08/28/16 01/25/18 omeprazole 20 mg PO DAILY #0 08/28/16 01/25/18 acetaminophen 650 mg PO Q6HP PRN #0 10/29/16 01/25/18 amitriptyline 25 mg PO BEDTIME #0 01/22/17 01/25/18 ascorbic acid (vitamin C) 500 mg PO DAILY #0 06/10/17 01/25/18 fexofenadine 180 mg PO DAILY #0 06/10/17 01/25/18 nystatin 1 dose PO DIRECTED #0 06/10/17 01/25/18 sodium chloride 0.9 % 1 vial QID PRN #0 06/10/17 01/25/18 citalopram 40 mg PO DAILY 09/21/17 01/25/18 lisinopril 10 mg PO DAILY 09/21/17 01/25/18 tramadol 50 mg PO Q6HP PRN 09/21/17 01/25/18 levothyroxine 1 tab PO DAILY 01/04/18 01/25/18 estradiol 1 mg PO DAILY 01/25/18 01/25/18 Previous Rx's Medication Instructions Recorded levofloxacin [Levaquin] 750 mg PO DAILY #7 tab 01/06/18 prednisone 10 mg PO BID #10 tab 01/06/18 Allergies Allergy/AdvReac Type Severity Reaction Status Date / Time hydrocodone Allergy Intermediate RASH/HIVES Verified 01/25/18 12:02 Penicillins Allergy Intermediate RASH/HIVES Verified 01/25/18 12:02 metronidazole Allergy Mild RASH Verified 01/25/18 12:02 diphenhydramine Allergy Unknown Verified 01/25/18 12:02 [DIPHENHYDRAMINE] ibuprofen Allergy Unknown Verified 01/25/18 12:02 oxycodone [OXYCODONE] Allergy Unknown Verified 01/25/18 12:02 venom-wasp Allergy Verified 01/25/18 12:02 ranitidine AdvReac Intermediate SOB/DIZZY Verified 01/25/18 12:02 sulfamethoxazole AdvReac Mild GI UPSET Verified 01/25/18 12:02 [From Bactrim] trimethoprim [From Bactrim] AdvReac Mild GI UPSET Verified 01/04/18 14:30 fentanyl [FENTANYL] AdvReac Unknown vomiting Verified 01/04/18 14:30 ANTACIDS AdvReac Unknown Uncoded 01/04/18 14:30 Review of Systems <LORI Steiner - Last Filed: 01/25/18 22:01> Constitutional Denies chills, Denies fatigue, Denies fever(s), Denies lethargy and Denies weakness Eyes Denies change in vision, Denies eye discharge, Denies irritation and Denies loss of vision ENT Ears, Nose, Mouth, and Throat: Denies change in voice, Denies neck pain and Denies sore throat Cardiovascular Reports chest pain with activity, Denies dyspnea and Denies dyspnea on exertion Respiratory Denies cough, Denies dyspnea, Denies dyspnea on exertion and Denies wheezing Gastrointestinal Gastrointestinal: Denies abdominal pain, Denies change in bowel habits, Denies diarrhea, Denies nausea and Denies vomiting Genitourinary Denies hematuria, Denies flank pain, Denies urinary incontinence and Denies urinary urgency Musculoskeletal Denies neck pain Comments: Left calf pain Integumentary/Breasts Denies pruritus, Denies erythema, Denies rash and Denies wounds Neurologic Denies confusion, Denies loss of vision and Denies weakness Psychiatric Denies anxiety, Denies confusion, Denies depression, Denies homicidal ideation and Denies suicidal ideation Endocrine Denies fatigue and Denies flushing Allergic/Immunologic Denies wheezing Exam <LORI Steiner - Last Filed: 01/25/18 22:01> Initial Vital Signs Initial Vital Signs: Vital Signs Pulse Rate 87 01/25/18 13:31 Pulse Oximetry 99 01/25/18 13:31 Const General: cooperative and well developed Nutritional Appearance: well nourished Orientation: alert, awake, oriented x3 and not confused [facility] Mouth: oral mucosae normal and moist mucous membranes Eyes Conjunctivae: conjunctivae normal Sclera: sclerae normal Pupils: PERRL EOM: EOM intact bilaterally Resp Effort & Inspection: normal respiratory effort, able to speak in complete sentences, no respiratory distress and no use of accessory muscles Auscultation: clear to auscultation bilaterally, no rales, no rhonchi and wheezes inspiratory wheezes and lower bilaterally Cardio Rate: regular rate Rhythm: regular rhythm Heart Sounds: no click, no gallops, no murmurs and no rubs Pulses: normal peripheral pulses GI Inspection: non-distended Palpation: soft, no hepatosplenomegaly, No guarding, No pulsatile mass and No tender Auscultation: normal bowel sounds Skin General: no rashes or lesions noted, No jaundice and No petechiae Neuro General: alert, oriented x3, gait normal and no focal motor deficits Speech: speech normal Extrem Right lower extremity: hip/thigh Other: 3-4 cm circular area to the left calf area with ecchymoses. No surrounding erythema. No abscess appreciated <Ines Perez MD - Last Filed: 01/26/18 07:39> Initial Vital Signs Initial Vital Signs: Vital Signs Pulse Rate 87 01/25/18 13:31 Pulse Oximetry 99 01/25/18 13:31 Scores <LORI Steiner - Last Filed: 01/25/18 22:01> HEART Score Heart Score history: Slightly Suspicious Heart Score EKG: Normal Heart Score Age: 45-64 years old Heart Score risk factors: 1-2 risk factors Heart Score troponin: < or = to normal limit Heart Score Total: 2 PERC Score Age greater than or equal to 50 years: Yes Heart rate greater than or equal to 100 bpm: No Room Air O2 Sat less than 95%: No Unilateral leg swelling: No Recent trauma or surgery: No Hemoptysis: No Prior PE or DVT: No Hormone Use: Yes Total PERC Score: 2 Course <LORI Steiner - Last Filed: 01/25/18 22:01> Orders Ordered: Discontinued Medications Acetaminophen (Tylenol) 650 mg PO NOW ONE Stop: 01/25/18 13:18 Last Admin: 01/25/18 14:44 Dose: 650 mg Albuterol/Ipratropium (Duoneb) 3 ml INH NOW ONE Stop: 01/25/18 16:15 Last Admin: 01/25/18 16:44 Dose: 3 ml Vital Signs - 8 hr 01/25/18 15:20 01/25/18 15:43 01/25/18 16:45 Temperature Pulse Rate 66 58 L Respiratory Rate Blood Pressure [Left Arm] 122/72 Pulse Oximetry 93 93 100 01/25/18 18:00 01/25/18 18:16 01/25/18 19:00 Temperature Pulse Rate 65 68 69 Respiratory Rate 18 18 18 Blood Pressure [Left Arm] 107/41 L 107/41 L 122/72 Pulse Oximetry 95 94 95 01/25/18 20:03 Temperature 97.4 F L Pulse Rate 71 Respiratory Rate 20 Blood Pressure [Left Arm] 115/65 Pulse Oximetry 95 <Ines Perez MD - Last Filed: 01/26/18 07:39> Orders Ordered: Discontinued Medications Acetaminophen (Tylenol) 650 mg PO NOW ONE Stop: 01/25/18 13:18 Last Admin: 01/25/18 14:44 Dose: 650 mg Albuterol/Ipratropium (Duoneb) 3 ml INH NOW ONE Stop: 01/25/18 16:15 Last Admin: 01/25/18 16:44 Dose: 3 ml Vital Signs - 8 hr 01/25/18 15:20 01/25/18 15:43 01/25/18 16:45 Temperature Pulse Rate 66 58 L Respiratory Rate Blood Pressure [Left Arm] 122/72 Pulse Oximetry 93 93 100 01/25/18 18:00 01/25/18 18:16 01/25/18 19:00 Temperature Pulse Rate 65 68 69 Respiratory Rate 18 18 18 Blood Pressure [Left Arm] 107/41 L 107/41 L 122/72 Pulse Oximetry 95 94 95 01/25/18 20:03 Temperature 97.4 F L Pulse Rate 71 Respiratory Rate 20 Blood Pressure [Left Arm] 115/65 Pulse Oximetry 95 MDM - Skin/Abscess/Foreign Bdy <LORI Steiner - Last Filed: 01/25/18 22:01> Lab Data Result diagrams: 01/25/18 16:35 01/25/18 16:35 Lab Results 01/25/18 01/25/18 01/25/18 Range/Units 16:35 16:35 16:35 WBC 6.9 (4.5-11.0) X10^3/uL RBC 4.09 (4.0-5.2) X10^6/uL Hgb 12.8 (12.0-16.0) g/dL Hct 37.7 (36-46) % MCV 92.2 (80-100) fL MCH 31.3 (26-34) PG MCHC 34.0 (30-36) % RDW 13.5 (11.6-14.8) % Plt Count 215 (150-400) X10^3/uL Neut % (Auto) 75.8 H (50-75) % Lymph % (Auto) 9.6 L (25-40) % [place] % (Auto) 9.0 (3-14) % Eos % (Auto) 4.3 H (2-4) % Baso % (Auto) 1.3 (0-2) % Neut # (Auto) 5300 (9849-7761) /uL D-Dimer < 200 (<230) ng/mL Sodium 136 L (137-145) mmol/L Potassium 3.6 (3.4-5.1) mmol/L Chloride 101 (98-107) mmol/L Carbon Dioxide 28 (22-32) mmol/L BUN 13 (7-17) mg/dL Creatinine 0.50 L (0.52-1.04) mg/dL Estimated GFR > 60.0 (>60) mL/min BUN/Creatinine Ratio 26.0 H (6-22) Glucose 80 (70-100) mg/dL Calcium 8.1 L (8.4-10.2) mg/dL Total Bilirubin 0.5 (0.2-1.3) mg/dL AST 27 (14-36) IU/L ALT 27 (9-52) IU/L Alkaline Phosphatase 49 (38-126) U/L Total Creatine Kinase 89 (30-135) U/L CK-MB (CK-2) TNP CK-MB (CK-2) Rel Index TNP Troponin I < 0.012 (0.01-0.034) ng/mL Total Protein 6.0 L (6.3-8.2) g/dL Albumin 3.8 (3.5-5.0) g/dL Globulin 2.2 (1.7-4.1) g/dL Albumin/Globulin Ratio 1.7 (1.0-2.8) Lipase 86 (23-300) U/L 01/25/18 Range/Units 18:25 WBC (4.5-11.0) X10^3/uL RBC (4.0-5.2) X10^6/uL Hgb (12.0-16.0) g/dL Hct (36-46) % MCV (80-100) fL MCH (26-34) PG MCHC (30-36) % RDW (11.6-14.8) % Plt Count (150-400) X10^3/uL Neut % (Auto) (50-75) % Lymph % (Auto) (25-40) % [place] % (Auto) (3-14) % Eos % (Auto) (2-4) % Baso % (Auto) (0-2) % Neut # (Auto) (0054-1458) /uL D-Dimer (<230) ng/mL Sodium (137-145) mmol/L Potassium (3.4-5.1) mmol/L Chloride (98-107) mmol/L Carbon Dioxide (22-32) mmol/L BUN (7-17) mg/dL Creatinine (0.52-1.04) mg/dL Estimated GFR (>60) mL/min BUN/Creatinine Ratio (6-22) Glucose (70-100) mg/dL Calcium (8.4-10.2) mg/dL Total Bilirubin (0.2-1.3) mg/dL AST (14-36) IU/L ALT (9-52) IU/L Alkaline Phosphatase (38-126) U/L Total Creatine Kinase (30-135) U/L CK-MB (CK-2) CK-MB (CK-2) Rel Index Troponin I < 0.012 (0.01-0.034) ng/mL Total Protein (6.3-8.2) g/dL Albumin (3.5-5.0) g/dL Globulin (1.7-4.1) g/dL Albumin/Globulin Ratio (1.0-2.8) Lipase (23-300) U/L Urine Dip Bedside Urine Glucose Negative Bedside Urine Bilirubin - Negative Bedside Urine Ketone - Negative Urine Specific [place] 1.020 Bedside Urine Occult Blood - Negative Bedside Urine pH 6.0 Bedside Urine Protein - Negative Bedside Urine Urobilinogen - Negative Bedside Urine Nitrite - Negative Bedside Urine Leukocytes - Negative Esterase Imaging Data CT scan - abdomen: Radiologist's impression: [address] [address] [address] Scan Report Signed Patient: Nai Zeng [facility]#: [id number] : 1Acct:[id number] Age/Sex: 57 / FDate of Service: 01/25/18 Loc: ED Accession Number: [id number] Procedure: CT angio chest PE protocol Ordering Provider: Nba Aaron PROCEDURE: CT ANGIO CHEST PE PROTOCOL INDICATIONS: Left leg pain and chest pain TECHNIQUE: After the administration of intravenous contrast, 2 mm thick sections acquired from the pulmonary apices to the posterior costophrenic angles. 3-dimensional maximum intensity projection (MIP) coronal and sagittal reformats were then acquired through the thorax. For radiation dose reduction, the following was used: automated exposure control, adjustment of mA and/or kV according to patient size. COMPARISON: [facility], CT, CHEST/ABDOMEN WITHOUT CONTRAST, 02/26/2015, 9: 34. [facility], CR, XR CHEST 1V, 01/05/2018, 5:54. [facility], CR, XR CHEST 1V, 01/25/2018, 15:48. FINDINGS: Image quality: Excellent. Pulmonary arteries: Pulmonary arteries are normal in size, and demonstrate no intraluminal filling defects to suggest central pulmonary embolism. Lungs and pleura: A tracheostomy tube is seen in its expected location. Lungs are clear. No pleural effusions or pneumothorax. Central and peripheral airways are patent. Mediastinum: Heart size is normal, without pericardial effusion. Coronary artery calcifications are seen. No mediastinal or hilar adenopathy. Thoracic aorta is normal in caliber and enhancement. Esophagus is normal in caliber, without a significant hiatal hernia. Bones and chest wall: No suspicious bony lesions. Ribs and thoracic spine appear intact throughout. Age-appropriate bony degenerative changes are seen. Thyroid gland is not seen. No axillary or supraclavicular adenopathy. There are lower neck postoperative clips present. Abdomen: Visualized upper abdominal solid organs appear normal in the early arterial phase of enhancement. IMPRESSION: Negative for pulmonary embolism. Postoperative changes with tracheostomy tube. No thyroid can be seen. Dictated by: Colin Pinon M.D. on 01/25/2018 at 16:29 Approved by: Colin Pinon M.D. on 01/25/2018 at 16:32 Chest x-ray: Radiologist's impression: [place] [address] XRay Report Signed Patient: aNi Zeng [facility]#: [id number] : 1960cct:[id number] Age/Sex: 57 / FDate of Service: 01/25/18 Loc: ED Accession Number: [id number] Procedure: XR chest 1V Ordering Provider: Nba Aaron PROCEDURE: XR CHEST 1V INDICATIONS: Chest pain TECHNIQUE: One view of the chest was acquired. COMPARISON: [facility], , XR CHEST 1V, 01/05/2018, 5:54. FINDINGS: Surgical changes and devices: Surgical clips projecting in the base of the neck bilaterally. Lungs and pleura: No pleural effusions or pneumothorax. Scattered atelectasis/ scarring. No acute consolidation. Eventration of the right hemidiaphragm. Mediastinum: Mediastinal contours appear normal. Heart size is normal. Bones and chest wall: No suspicious bony lesions. Overlying soft tissues appear unremarkable. IMPRESSION: No acute consolidation. Scattered scarring/atelectasis. Dictated by: Augusto Royal M.D. on 01/25/2018 at 15:58 Approved by: Augusto Royal M.D. on 01/25/2018 at 16:00 ECG Data Interpretation: EKG shows normal sinus rhythm with no ST elevation or depression. No ectopy. Ventricular rate is 74. Pr interval 158. QRs of 105. QT of 407. MDM Narrative Medical decision making narrative: CBC and Chem panel were obtained were unremarkable. Chest x-ray was obtained was negative for any acute findings. Patient had elevated heart rate along with left lower extremity pain and chest pain PE protocol chest CT was obtained was negative for PE. Ultrasound left lower extremity was negative for blood clot. Two sets of cardiac enzymes were obtained were unremarkable. Pain into left lower extremity presents as contusion. Chest pain does not present as being cardiac in nature suspect chest wall pain. However will have patient follow up with primary care provider in the next couple of days for re-evaluation. If any worsening symptoms return to the emergency room. Use [id number] Tylenol as needed for any discomfort <Ines Perez MD - Last Filed: 01/26/18 07:39> Lab Data Lab Results 01/25/18 01/25/18 01/25/18 Range/Units 16:35 16:35 16:35 WBC 6.9 (4.5-11.0) X10^3/uL RBC 4.09 (4.0-5.2) X10^6/uL Hgb 12.8 (12.0-16.0) g/dL Hct 37.7 (36-46) % MCV 92.2 (80-100) fL MCH 31.3 (26-34) PG MCHC 34.0 (30-36) % RDW 13.5 (11.6-14.8) % Plt Count 215 (150-400) X10^3/uL Neut % (Auto) 75.8 H (50-75) % Lymph % (Auto) 9.6 L (25-40) % [place] % (Auto) 9.0 (3-14) % Eos % (Auto) 4.3 H (2-4) % Baso % (Auto) 1.3 (0-2) % Neut # (Auto) 5300 (5082-4124) /uL D-Dimer < 200 (<230) ng/mL Sodium 136 L (137-145) mmol/L Potassium 3.6 (3.4-5.1) mmol/L Chloride 101 (98-107) mmol/L Carbon Dioxide 28 (22-32) mmol/L BUN 13 (7-17) mg/dL Creatinine 0.50 L (0.52-1.04) mg/dL Estimated GFR > 60.0 (>60) mL/min BUN/Creatinine Ratio 26.0 H (6-22) Glucose 80 (70-100) mg/dL Calcium 8.1 L (8.4-10.2) mg/dL Total Bilirubin 0.5 (0.2-1.3) mg/dL AST 27 (14-36) IU/L ALT 27 (9-52) IU/L Alkaline Phosphatase 49 (38-126) U/L Total Creatine Kinase 89 (30-135) U/L CK-MB (CK-2) TNP CK-MB (CK-2) Rel Index TNP Troponin I < 0.012 (0.01-0.034) ng/mL Total Protein 6.0 L (6.3-8.2) g/dL Albumin 3.8 (3.5-5.0) g/dL Globulin 2.2 (1.7-4.1) g/dL Albumin/Globulin Ratio 1.7 (1.0-2.8) Lipase 86 (23-300) U/L 01/25/18 Range/Units 18:25 WBC (4.5-11.0) X10^3/uL RBC (4.0-5.2) X10^6/uL Hgb (12.0-16.0) g/dL Hct (36-46) % MCV (80-100) fL MCH (26-34) PG MCHC (30-36) % RDW (11.6-14.8) % Plt Count (150-400) X10^3/uL Neut % (Auto) (50-75) % Lymph % (Auto) (25-40) % [place] % (Auto) (3-14) % Eos % (Auto) (2-4) % Baso % (Auto) (0-2) % Neut # (Auto) (7094-9025) /uL D-Dimer (<230) ng/mL Sodium (137-145) mmol/L Potassium (3.4-5.1) mmol/L Chloride (98-107) mmol/L Carbon Dioxide (22-32) mmol/L BUN (7-17) mg/dL Creatinine (0.52-1.04) mg/dL Estimated GFR (>60) mL/min BUN/Creatinine Ratio (6-22) Glucose (70-100) mg/dL Calcium (8.4-10.2) mg/dL Total Bilirubin (0.2-1.3) mg/dL AST (14-36) IU/L ALT (9-52) IU/L Alkaline Phosphatase (38-126) U/L Total Creatine Kinase (30-135) U/L CK-MB (CK-2) CK-MB (CK-2) Rel Index Troponin I < 0.012 (0.01-0.034) ng/mL Total Protein (6.3-8.2) g/dL Albumin (3.5-5.0) g/dL Globulin (1.7-4.1) g/dL Albumin/Globulin Ratio (1.0-2.8) Lipase (23-300) U/L Urine Dip Bedside Urine Glucose Negative Bedside Urine Bilirubin - Negative Bedside Urine Ketone - Negative Urine Specific [place] 1.020 Bedside Urine Occult Blood - Negative Bedside Urine pH 6.0 Bedside Urine Protein - Negative Bedside Urine Urobilinogen - Negative Bedside Urine Nitrite - Negative Bedside Urine Leukocytes - Negative Esterase Discharge Plan Departure Patient Disposition: Home Clinical Impression: Contusion of leg, left, Acute chest wall pain Discharge Date/Time: 01/25/18 20:20 Interventions: ED Discharge Assessment Last Done: 01/25/18 20:20 Instructions: DI for Contusion Activity Restrictions/Additional Instructions: Laboratory results and imaging today were unremarkable. Signs and symptoms presents as contusion to left leg causing the discomfort and chest wall pain. Use [id number] Tylenol as needed for any discomfort. Follow up with her primary care provider in the next few days for re-evaluation. For any worsening symptoms return to the emergency room. Prescriptions: No Action albuterol sulfate 2.5 MG/3 ML solution for nebulization 1 dose Inhalation QIDP PRN (Reason: Shortness Of Breath) Qty: 180 RF: 0 docusate sodium 100 MG capsule 100 mg PO BID Qty: 0 RF: 0 ferrous gluconate 324 MG tablet 324 mg PO DAILY Qty: 0 RF: 0 omeprazole 20 MG capsule,delayed release(DR/EC) 20 mg PO DAILY Qty: 0 RF: 0 acetaminophen 325 MG tablet 650 mg PO Q6HP PRN (Reason: Pain, Mild) Qty: 0 RF: 0 amitriptyline 25 MG tablet 25 mg PO BEDTIME Qty: 0 RF: 0 ascorbic acid (vitamin C) 500 MG tablet 500 mg PO DAILY Qty: 0 RF: 0 fexofenadine 180 MG tablet 180 mg PO DAILY Qty: 0 RF: 0 nystatin 100,000 UNIT/1 ML suspension 1 dose PO DIRECTED Qty: 0 RF: 0 sodium chloride 0.9 % 10 ML solution 1 vial QID PRN (Reason: irrigate tracheostomy) Qty: 0 RF: 0 citalopram 40 mg tablet 40 mg PO DAILY RF: 0 lisinopril 10 mg tablet 10 mg PO DAILY RF: 0 tramadol 50 MG tablet 50 mg PO Q6HP PRN (Reason: Pain, Moderate) RF: 0 estradiol 1 mg tablet 1 mg PO DAILY RF: 0 levothyroxine 88 mcg tablet 1 tab PO DAILY RF: 0 prednisone 20 mg tablet 10 mg PO BID Qty: 10 RF: 0 levofloxacin [Levaquin] 750 mg tablet 750 mg PO DAILY Qty: 7 RF: 0 Referrals: Eusebio Hammer MD [Primary Care Provider] -
[2018-01-25] MEDS: ALBUTEROL/IPRATROPIUM 3 ML AMPUL INH (16:44)
[2018-01-25 16:45] LABS: Add Manual Diff / Slide Review NO; Basophils Percent Auto 1.3 % (0-2); Eosinophils Percent Auto 4.3 % (2-4); Hematocrit 37.7 % (36-46); Hemoglobin 12.8 g/dL (12.0-16.0); Lymphocytes Percent Auto 9.6 % (25-40); Mean Corpuscular Hemoglobin 31.3 PG (26-34); Mean Corpuscular Volume 92.2 fL (80-100); Neutrophils Absolute Auto 5300 /uL (3000-5900); Neutrophils Percent Auto 75.8 % (50-75); Platelet Count 215 X10^3/uL (150-400); Red Blood Cell Count 4.09 X10^6/uL (4.0-5.2); Red Cell Distribution Width 13.5 % (11.6-14.8); White Blood Cell Count 6.9 X10^3/uL (4.5-11.0)
[2018-01-25 16:56] LABS: Alanine Aminotransferase 27 IU/L (9-52); Albumin 3.8 g/dL (3.5-5.0); Albumin Globulin Ratio 1.7 (1.0-2.8); Alkaline Phosphatase 49 U/L (38-126); Aspartate Aminotransferase 27 IU/L (14-36); Bilirubin Total 0.5 mg/dL (0.2-1.3); Blood Urea Nitrogen 13 mg/dL (7-17); Calcium 8.1 mg/dL (8.4-10.2); Carbon Dioxide 28 mmol/L (22-32); Chloride 101 mmol/L (98-107); Creatine Kinase 89 U/L (30-135); Estimated Glomerular Filt Rate > 60.0 mL/min (>60); Globulin 2.2 g/dL (1.7-4.1); Glucose 80 mg/dL (70-100); HEMOLYSIS 26 (0-50); Lipase 86 U/L (23-300); Potassium 3.6 mmol/L (3.4-5.1); Sodium 136 mmol/L (137-145)
[2018-01-25 16:59] LABS: D Dimer < 200 ng/mL (<230)
[2018-01-25 17:14] LABS: Troponin I < 0.012 ng/mL (0.01-0.034)
--- NOTE | 2018-01-25 17:28 | DI.CT.S_ITS ---
PROCEDURE: CT ANGIO CHEST PE PROTOCOL INDICATIONS: Left leg pain and chest pain TECHNIQUE: After the administration of intravenous contrast, 2 mm thick sections acquired from the pulmonary apices to the posterior costophrenic angles. 3-dimensional maximum intensity projection (MIP) coronal and sagittal reformats were then acquired through the thorax. For radiation dose reduction, the following was used: automated exposure control, adjustment of mA and/or kV according to patient size. COMPARISON: [facility], CT, CHEST/ABDOMEN WITHOUT CONTRAST, 02/26/2015, 9:34. [facility], CR, XR CHEST 1V, 01/05/2018, 5:54. [facility], CR, XR CHEST 1V, 01/25/2018, 15:48. FINDINGS: Image quality: Excellent. Pulmonary arteries: Pulmonary arteries are normal in size, and demonstrate no intraluminal filling defects to suggest central pulmonary embolism. Lungs and pleura: A tracheostomy tube is seen in its expected location. Lungs are clear. No pleural effusions or pneumothorax. Central and peripheral airways are patent. Mediastinum: Heart size is normal, without pericardial effusion. Coronary artery calcifications are seen. No mediastinal or hilar adenopathy. Thoracic aorta is normal in caliber and enhancement. Esophagus is normal in caliber, without a significant hiatal hernia. Bones and chest wall: No suspicious bony lesions. Ribs and thoracic spine appear intact throughout. Age-appropriate bony degenerative changes are seen. Thyroid gland is not seen. No axillary or supraclavicular adenopathy. There are lower neck postoperative clips present. Abdomen: Visualized upper abdominal solid organs appear normal in the early arterial phase of enhancement. IMPRESSION: Negative for pulmonary embolism. Postoperative changes with tracheostomy tube. No thyroid can be seen. Dictated by: Colin Pinon M.D. on 01/25/2018 at 16:29 Approved by: Colin Pinon M.D. on 01/25/2018 at 16:32
[2018-01-25 19:03] LABS: Troponin I < 0.012 ng/mL (0.01-0.034)
== END 2018-01-25 20:20 | disposition home or self-care (01) ==
PROVIDERS: Emergency Provider Nurse Practitioner Family; PCP Internal Medicine
DX: S80.12XA Contusion of left lower leg, initial encounter (principal); R07.89 Other chest pain; W57.XXXA Bitten or stung by nonvenomous insect and other nonvenomous arthropods, initial encounter
CPT/HCPCS: 71045; 71275; 80053; 81003; 82550; 83690; 84484; 85025; 85379; 93005; 93971; 94640; 99283; 99285; Q9967

== ENCOUNTER → 2018-02-03 18:24 | Outpatient (REF) | payer OTHER, MEDICAID, SELFPAY ==
[2018-01-04 20:02] VITALS: BMI 38.9
== END ==
LOC: LAB 18:24
PROVIDERS: PCP Internal Medicine; Visit Provider Internal Medicine
DX: S11.80XD Unspecified open wound of other specified part of neck, subsequent encounter (principal)
CPT/HCPCS: 87070; 87075; 87205

== ENCOUNTER 2018-02-16 22:14 | Emergency (ER) | payer OTHER, MEDICAID, SELFPAY ==
[2018-01-04 20:02] VITALS: BMI 38.9
[2018-02-16 22:15] VITALS: BP 121/69; PULSE 80; RESP 22; TEMP 36.7; O2SAT 94
--- NOTE | 2018-02-16 22:51 | DI.RAD.S_ITS ---
PROCEDURE: XR CHEST 2V INDICATIONS: shortness of breath TECHNIQUE: 2 views of the chest were acquired. COMPARISON: [facility], , XR CHEST 1V, 01/25/2018, 15:48. FINDINGS: Surgical changes and devices: None. Lungs and pleura: No pleural effusions or pneumothorax. Lungs are clear. Mediastinum: Mediastinal contours are normal. Heart size is normal. Bones and chest wall: No suspicious bony abnormalities. Soft tissues appear unremarkable. IMPRESSION: No acute cardiopulmonary pathology. No significant changes from previous study. Dictated by: You Rubio M.D. on 02/17/2018 at 8:59 Approved by: You Rubio M.D. on 02/17/2018 at 8:59
--- NOTE | 2018-02-16 23:47 | ED_ITS ---
HPI - Skin/Abscess/Foreign Bdy General Chief complaint: Skin/Abscess/Foreign Body Stated complaint: RT ARM WOUND Time Seen by Provider: 02/16/18 22:31 Source: patient Mode of arrival: EMS Limitations: other (trach, patient writes to communicate.) History of Present Illness HPI narrative: This is a 57-year-old female who comes to the emergency department with complaint of infection of her skin on the right arm. Patient has an area where she had a CT scratch. I was a cat that she normally CT sits 4. Patient states it happened in the last week. Over the last 5 days she has had some skin breakdown and some redness surrounding. She was seen at [facility] 2 days ago and was told to monitor it. They did draw a line around the area demarcating it told her if the redness extends beyond to be evaluated to start antibiotics. Patient has some extension beyond and came to the ER today. She also states that some she has had some blood from her trach. Patient has not had any recent deep suctioning or other trauma, her trach has not been replaced recently. She complaining of a little bit of headache. She has not had any fevers documented but has felt warm. She denies any shortness of breath or chest pain. She said she threw up 3 times this week. She denies any diarrhea or constipation. Related Data Home Medications Medication Instructions Recorded Confirmed albuterol sulfate 1 dose INHALATION QIDP PRN #180 01/25/16 01/25/18 docusate sodium 100 mg PO BID #0 01/25/16 01/25/18 ferrous gluconate 324 mg PO DAILY #0 08/28/16 01/25/18 omeprazole 20 mg PO DAILY #0 08/28/16 01/25/18 acetaminophen 650 mg PO Q6HP PRN #0 10/29/16 01/25/18 amitriptyline 25 mg PO BEDTIME #0 01/22/17 01/25/18 ascorbic acid (vitamin C) 500 mg PO DAILY #0 06/10/17 01/25/18 fexofenadine 180 mg PO DAILY #0 06/10/17 01/25/18 nystatin 1 dose PO DIRECTED #0 06/10/17 01/25/18 sodium chloride 0.9 % 1 vial QID PRN #0 06/10/17 01/25/18 citalopram 40 mg PO DAILY 09/21/17 01/25/18 lisinopril 10 mg PO DAILY 09/21/17 01/25/18 tramadol 50 mg PO Q6HP PRN 09/21/17 01/25/18 levothyroxine 1 tab PO DAILY 01/04/18 01/25/18 estradiol 1 mg PO DAILY 01/25/18 01/25/18 Previous Rx's Medication Instructions Recorded levofloxacin [Levaquin] 750 mg PO DAILY #7 tab 01/06/18 prednisone 10 mg PO BID #10 tab 01/06/18 doxycycline hyclate 100 mg PO BID #20 cap 02/16/18 Allergies Allergy/AdvReac Type Severity Reaction Status Date / Time hydrocodone Allergy Intermediate RASH/HIVES Verified 01/25/18 12:02 Penicillins Allergy Intermediate RASH/HIVES Verified 01/25/18 12:02 metronidazole Allergy Mild RASH Verified 01/25/18 12:02 diphenhydramine Allergy Unknown Verified 01/25/18 12:02 [DIPHENHYDRAMINE] ibuprofen Allergy Unknown Verified 01/25/18 12:02 oxycodone [OXYCODONE] Allergy Unknown Verified 01/25/18 12:02 venom-wasp Allergy Verified 01/25/18 12:02 ranitidine AdvReac Intermediate SOB/DIZZY Verified 01/25/18 12:02 sulfamethoxazole AdvReac Mild GI UPSET Verified 01/25/18 12:02 [From Bactrim] trimethoprim [From Bactrim] AdvReac Mild GI UPSET Verified 01/04/18 14:30 fentanyl [FENTANYL] AdvReac Unknown vomiting Verified 01/04/18 14:30 ANTACIDS AdvReac Unknown Uncoded 01/04/18 14:30 Review of Systems Review of Systems All systems reviewed & are unremarkable except as noted in HPI and below Cardiovascular Denies chest pain, Denies irregular heart rhythm, Denies lightheadedness, Denies palpitations, Denies dyspnea, Denies dyspnea on exertion and Denies orthopnea Respiratory Denies cough, Reports hemoptysis (black/brown blood from trach), Denies dyspnea , Denies dyspnea on exertion and Denies wheezing Gastrointestinal Gastrointestinal: Denies abdominal pain, Denies change in bowel habits, Denies diarrhea, Denies nausea and Reports vomiting (x3) Musculoskeletal Denies numbness Integumentary/Breasts Reports lesions (left forearm), Reports non-healing lesions and Reports erythema Neurologic Denies numbness Endocrine Denies palpitations Allergic/Immunologic Denies wheezing [facility] Medical History Tracheobronchitis (Acute) Chronic pain (Acute) Community acquired pneumonia (Acute) Tracheostomy complication (Acute) Otitis media, purulent, acute, with spontaneous rupture of TM (Acute) Laryngeal cancer (Acute) MRSA (methicillin resistant Staphylococcus aureus) (Acute) Social History household members: significant other Smoking Status: Former smoker alcohol intake: former Exam Narrative Exam Narrative: GEN: Obese, well-appearing female, alert and oriented x 3, patient appears to be in no acute distress. HEENT: Atraumatic, pupils are equal round reactive to light, extraocular movements are intact, nares are clear, Throat is clear without any exudates, erythema, tonsillar enlargement or uvular deviation, patient has a trach at the area surrounding peers clean dry and intact with no secretions. Patient does not have any purulent or really any secretions from the trach itself. HEART: Regular rate and rhythm without murmur, clicks, rubs. LUNGS:Lungs clear to auscultation, no wheezes, rales, crackles, chest moves symmetrically ABD:bowel sounds normal, soft, non-tender, no guarding, rebound, rigidity, no masses noted, no hepatosplenomegaly MSCL: Patient's right forearm has an area that is about a cm triangular shaped with breakdown through the superficial skin. There is a small amount of purulent drainage and very small surrounding area of erythema. There is a line of demarcation that was present upon arrival. Erythema appears to be extending accord 0.5 cm beyond this, no muscle atrophy, muscles strength 5/5 upper extremities, full range of motion NEURO:CN 2-12 intact, sensation normal Initial Vital Signs Initial Vital Signs: Vital Signs Temperature 98.1 F 02/16/18 22:15 Pulse Rate 80 02/16/18 22:15 Respiratory Rate 22 02/16/18 22:15 Blood Pressure 121/69 02/16/18 22:15 Pulse Oximetry 94 02/16/18 22:15 Course Orders Ordered: ED Orders 02/16/18 22:51 Chest [XR chest 2V] Stat 02/16/18 23:50 Basic Metabolic Panel Stat Complete Blood Count AUTO DIFF Stat 02/17/18 00:14 Wound Culture and Gram Stain Stat 02/17/18 01:13 EKG-12 Lead Stat 02/17/18 02:43 Electrolytes Stat Discontinued Medications Doxycycline Hyclate (Vibramycin) 100 mg PO NOW ONE Stop: 02/16/18 23:36 Last Admin: 02/17/18 00:05 Dose: 100 mg Potassium Chloride (Potassium Chloride) 40 meq PO NOW ONE Stop: 02/17/18 00:18 Last Admin: 02/17/18 00:37 Dose: 40 meq Tramadol HCl (Ultram) 100 mg PO NOW ONE Stop: 02/17/18 00:19 Last Admin: 02/17/18 00:37 Dose: 100 mg Vital Signs - 8 hr 02/16/18 22:15 02/17/18 01:00 02/17/18 01:34 Temperature 98.1 F 98.1 F Pulse Rate 80 76 76 Respiratory Rate 22 12 12 Blood Pressure 121/69 121/69 Blood Pressure [Left Arm] 105/64 Pulse Oximetry 94 92 92 02/17/18 02:51 Temperature Pulse Rate 75 Respiratory Rate 12 Blood Pressure Blood Pressure [Left Arm] 104/56 L Pulse Oximetry 94 MDM - Skin/Abscess/Foreign Bdy Lab Data Attestation: I reviewed the patient's lab results. Result diagrams: 02/16/18 23:50 02/17/18 02:43 Lab Results 02/16/18 02/16/18 02/17/18 Range/Units 23:50 23:50 02:43 WBC 8.3 (4.5-11.0) X10^3/uL RBC 3.83 L (4.0-5.2) X10^6/uL Hgb 11.9 L (12.0-16.0) g/dL Hct 34.7 L (36-46) % MCV 90.7 (80-100) fL MCH 31.2 (26-34) PG MCHC 34.3 (30-36) % RDW 14.0 (11.6-14.8) % Plt Count 254 (150-400) X10^3/uL Neut % (Auto) 78.1 H (50-75) % Lymph % (Auto) 7.7 L (25-40) % [place] % (Auto) 10.1 (3-14) % Eos % (Auto) 2.7 (2-4) % Baso % (Auto) 1.4 (0-2) % Neut # (Auto) 6500 H (7491-9225) /uL Sodium 140 141 (137-145) mmol/L Potassium 2.8 L 3.6 (3.4-5.1) mmol/L Chloride 104 106 (98-107) mmol/L Carbon Dioxide 26 26 (22-32) mmol/L BUN 12 (7-17) mg/dL Creatinine 0.60 (0.52-1.04) mg/dL Estimated GFR > 60.0 (>60) mL/min BUN/Creatinine Ratio 20.0 (6-22) Glucose 114 H (70-100) mg/dL Calcium 7.9 L (8.4-10.2) mg/dL Imaging Data Chest x-ray: Attestation: I personally reviewed and interpreted this imaging study as follows: My impression: no acute process, scarring similar to prior CXR on 01/25/18 ECG Data Attestation: I personally reviewed and interpreted this ECG as follows: Prior ECG tracings: available for review Interpretation: Sinus rhythm with a rate of 76, P are of 178, QRS of 96 and QTC of 465 patient has Q-waves in V1 V2. Patient's EKG appears similar to prior from 01/26/2018 and 01/04/2018. MDM Narrative Medical decision making narrative: Patient has at penicillin allergy so not start Augmentin. Appears that doxycycline would be appropriate for her also. Because of the in the complaint of some hemoptysis from the trach patient had chest x-ray ordered although I do not expect to see much change. Also CBC and BMP. Patient is not in any distress in terms of her airway and appears better than I normally see her. She has no signs of sepsis. On recheck her arm actually looks a little bit improved after the doxycycline and sitting here for several hours. Patient given [address] moved recheck her electrolytes and her potassium had improved a bit to 3.6 which is more than expected with 40 mEq of oral potassium so there may have been some lab artifact initially. Patient is comfortable returning home. She is comfortable with the plan, she has follow -up with wound care week. Discharge Plan Departure Patient Disposition: Home Clinical Impression: Cat scratch of right forearm with infection, Hypokalemia Discharge Date/Time: 02/17/18 03:10 Interventions: ED Discharge Assessment Last Done: 02/17/18 03:10 Instructions: DI for Cat Scratch Disease/Fever Activity Restrictions/Additional Instructions: Wound Care: Keep wound(s) clean and dry. Wash daily with soap and water only. Do not use over the counter products (alcohol or peroxide)on the wounds unless instructed by a physician. If wound condition worsens (increased/expanding redness, developing fluid blisters, or worsening pain), either contact your doctor for an urgent re- assessment , or return to the Emergency Department. Return to the Emergency Department for any new or worsening symptoms. Return if fever greater than 100.4 Fahrenheit, increased swelling, increasing pain or worsening symptoms such as increased discharge or spreading redness. Use warm compresses 3 times daily for 20 minutes to the affected area. Also he have any new shortness of breath, chest pain, increasing amount of hemoptysis or bleeding from your trach. Prescriptions: New doxycycline hyclate 100 mg capsule 100 mg PO BID Qty: 20 RF: 0 No Action albuterol sulfate 2.5 MG/3 ML solution for nebulization 1 dose Inhalation QIDP PRN (Reason: Shortness Of Breath) Qty: 180 RF: 0 docusate sodium 100 MG capsule 100 mg PO BID Qty: 0 RF: 0 ferrous gluconate 324 MG tablet 324 mg PO DAILY Qty: 0 RF: 0 omeprazole 20 MG capsule,delayed release(DR/EC) 20 mg PO DAILY Qty: 0 RF: 0 acetaminophen 325 MG tablet 650 mg PO Q6HP PRN (Reason: Pain, Mild) Qty: 0 RF: 0 amitriptyline 25 MG tablet 25 mg PO BEDTIME Qty: 0 RF: 0 ascorbic acid (vitamin C) 500 MG tablet 500 mg PO DAILY Qty: 0 RF: 0 fexofenadine 180 MG tablet 180 mg PO DAILY Qty: 0 RF: 0 nystatin 100,000 UNIT/1 ML suspension 1 dose PO DIRECTED Qty: 0 RF: 0 sodium chloride 0.9 % 10 ML solution 1 vial QID PRN (Reason: irrigate tracheostomy) Qty: 0 RF: 0 citalopram 40 mg tablet 40 mg PO DAILY RF: 0 lisinopril 10 mg tablet 10 mg PO DAILY RF: 0 tramadol 50 MG tablet 50 mg PO Q6HP PRN (Reason: Pain, Moderate) RF: 0 estradiol 1 mg tablet 1 mg PO DAILY RF: 0 levothyroxine 88 mcg tablet 1 tab PO DAILY RF: 0 prednisone 20 mg tablet 10 mg PO BID Qty: 10 RF: 0 levofloxacin [Levaquin] 750 mg tablet 750 mg PO DAILY Qty: 7 RF: 0
[2018-02-16 23:58] LABS: Add Manual Diff / Slide Review NO; Basophils Percent Auto 1.4 % (0-2); Eosinophils Percent Auto 2.7 % (2-4); Hematocrit 34.7 % (36-46); Hemoglobin 11.9 g/dL (12.0-16.0); Lymphocytes Percent Auto 7.7 % (25-40); Mean Corpuscular HGB Conc 34.3 % (30-36); Mean Corpuscular Hemoglobin 31.2 PG (26-34); Mean Corpuscular Volume 90.7 fL (80-100); Monocytes Percent Auto 10.1 % (3-14); Neutrophils Absolute Auto 6500 /uL (3000-5900); Neutrophils Percent Auto 78.1 % (50-75); Platelet Count 254 X10^3/uL (150-400); Red Blood Cell Count 3.83 X10^6/uL (4.0-5.2); White Blood Cell Count 8.3 X10^3/uL (4.5-11.0)
[2018-02-17] MEDS: DOXYCYCLINE HYCLATE 100 MG TABLET PO (00:05)
[2018-02-17 00:08] LABS: Blood Urea Nitrogen 12 mg/dL (7-17); Calcium 7.9 mg/dL (8.4-10.2); Carbon Dioxide 26 mmol/L (22-32); Chloride 104 mmol/L (98-107); Estimated Glomerular Filt Rate > 60.0 mL/min (>60); Glucose 114 mg/dL (70-100); HEMOLYSIS < 15 (0-50); Potassium 2.8 mmol/L (3.4-5.1); Sodium 140 mmol/L (137-145)
[2018-02-17] MEDS: TRAMADOL 50 MG TABLET 100 MG PO (00:37)
[2018-02-17] MEDS: POTASSIUM CHLORIDE 20 MEQ/15 ML UDC 40 MEQ PO (00:37)
[2018-02-17 01:00] VITALS: BP 121/69; PULSE 76; RESP 12; TEMP 36.7; O2SAT 92
--- NOTE | 2018-02-17 01:00 | PC.NURSE ---
PT states cat scratch to right arm 5 days ago worried infection is increasing, was outlined at wound care 2 days ago and told to come to ER if redness continued beyond outline.
[2018-02-17 01:34] VITALS: BP 105/64; PULSE 76; RESP 12; O2SAT 92
[2018-02-17 02:51] VITALS: BP 104/56; PULSE 75; RESP 12; O2SAT 94
[2018-02-17 03:01] LABS: Carbon Dioxide 26 mmol/L (22-32); Chloride 106 mmol/L (98-107); HEMOLYSIS < 15 (0-50); Potassium 3.6 mmol/L (3.4-5.1); Sodium 141 mmol/L (137-145)
== END 2018-02-17 03:10 | disposition home or self-care (01) ==
PROVIDERS: Emergency Provider Emergency Medicine; Family Provider Internal Medicine; PCP Internal Medicine
DX: S50.811A Abrasion of right forearm, initial encounter (principal); L08.9 Local infection of the skin and subcutaneous tissue, unspecified; W55.03XA Scratched by cat, initial encounter
CPT/HCPCS: 36415; 71046; 80048; 80051; 85025; 87070; 87075; 87205; 93005; 93010; 99282; 99285

== ENCOUNTER 2018-03-27 11:44 | Inpatient (IN) | payer OTHER, MEDICAID, SELFPAY ==
[2018-01-04 20:02] VITALS: BMI 38.9
[2018-03-27] VITALS (9 sets, daily range): BP systolic 98–140; BP diastolic 49–94; PULSE 79–96; RESP 16–34; TEMP 36.9–37.1; O2SAT 91–98; BMI 35.9
--- NOTE | 2018-03-27 11:59 | PC.NURSE ---
RT at bedside to suction trach
[2018-03-27] MEDS: ALBUTEROL/IPRATROPIUM 3 ML AMPUL INH ×2 (12:08→21:32)
--- NOTE | 2018-03-27 12:12 | DI.RAD.S_ITS ---
PROCEDURE: XR CHEST 1V INDICATIONS: suspected sepsis TECHNIQUE: One view of the chest was acquired. COMPARISON: [facility], CR, XR CHEST 2 VIEWS, 03/25/2018, 13:41. FINDINGS: Surgical changes and devices: Surgical clips are present throughout the thoracic inlet. Lungs and pleura: No pleural effusions or pneumothorax. Lungs are clear. Mediastinum: Mediastinal contours appear normal. Heart size is normal. Bones and chest wall: No suspicious bony lesions. Overlying soft tissues appear unremarkable. IMPRESSION: No acute cardiopulmonary findings. Dictated by: Charity Tran M.D. on 03/27/2018 at 12:41 Approved by: Charity Tran M.D. on 03/27/2018 at 12:42
[2018-03-27 12:24] LABS: Prothrombin Time 11.2 SECONDS (10.1-12.7)
[2018-03-27] MEDS: SODIUM CHLORIDE 0.9% 1,000 ML 1000 ML IV (12:25)
[2018-03-27 12:26] LABS: Lactate (Lactic Acid) 1.4 mmol/L (0.7-2.1); PTT Partial Thromboplastin Tim 31 SECONDS (26.4-36.2)
--- NOTE | 2018-03-27 12:27 | ED.SOB ---
HPI - SOB/Dyspnea General Chief Complaint: Shortness of Breath/Dyspnea Stated Complaint: Respiratory distress Time Seen by Provider: 03/27/18 12:26 Source: patient Mode of arrival: EMS Limitations: no limitations History of Present Illness patient is a 57-year-old female well known to me as I have evaluated her here in the emergency department several times the past. She does have an indwelling trach secondary to throat cancer. This was done back in 2008. She reports today for increased shortness of breath and productive cough for the past several days. She also describes a sore throat for the past 5 days. She also describes upper respiratory symptoms to include chest congestion and ear fullness. She has not tried anything for symptoms prior to arrival. She is fairly anxious about her symptoms which is not unusual for her during her emergency department stay days. She does still take fluids and food by mouth. Related Data Home Medications Medication Instructions Recorded Confirmed albuterol sulfate 1 dose INHALATION QIDP PRN #180 01/25/16 01/25/18 docusate sodium 100 mg PO BID #0 01/25/16 01/25/18 ferrous gluconate 324 mg PO DAILY #0 08/28/16 01/25/18 omeprazole 20 mg PO DAILY #0 08/28/16 01/25/18 acetaminophen 650 mg PO Q6HP PRN #0 10/29/16 01/25/18 amitriptyline 25 mg PO BEDTIME #0 01/22/17 01/25/18 ascorbic acid (vitamin C) 500 mg PO DAILY #0 06/10/17 01/25/18 fexofenadine 180 mg PO DAILY #0 06/10/17 01/25/18 nystatin 1 dose PO DIRECTED #0 06/10/17 01/25/18 sodium chloride 0.9 % 1 vial QID PRN #0 06/10/17 01/25/18 citalopram 40 mg PO DAILY 09/21/17 01/25/18 lisinopril 10 mg PO DAILY 09/21/17 01/25/18 tramadol 50 mg PO Q6HP PRN 09/21/17 01/25/18 levothyroxine 1 tab PO DAILY 01/04/18 01/25/18 estradiol 1 mg PO DAILY 01/25/18 01/25/18 Previous Rx's Medication Instructions Recorded levofloxacin [Levaquin] 750 mg PO DAILY #7 tab 01/06/18 prednisone 10 mg PO BID #10 tab 01/06/18 doxycycline hyclate 100 mg PO BID #20 cap 02/16/18 Allergies Allergy/AdvReac Type Severity Reaction Status Date / Time hydrocodone Allergy Intermediate RASH/HIVES Verified 01/25/18 12:02 Penicillins Allergy Intermediate RASH/HIVES Verified 01/25/18 12:02 metronidazole Allergy Mild RASH Verified 01/25/18 12:02 diphenhydramine Allergy Unknown Verified 01/25/18 12:02 [DIPHENHYDRAMINE] ibuprofen Allergy Unknown Verified 01/25/18 12:02 oxycodone [OXYCODONE] Allergy Unknown Verified 01/25/18 12:02 venom-wasp Allergy Verified 01/25/18 12:02 ranitidine AdvReac Intermediate SOB/DIZZY Verified 01/25/18 12:02 sulfamethoxazole AdvReac Mild GI UPSET Verified 01/25/18 12:02 [From Bactrim] trimethoprim [From Bactrim] AdvReac Mild GI UPSET Verified 01/04/18 14:30 fentanyl [FENTANYL] AdvReac Unknown vomiting Verified 01/04/18 14:30 ANTACIDS AdvReac Unknown Uncoded 01/04/18 14:30 Review of Systems Constitutional Denies fever(s) and Reports headache(s) ENT Ears, Nose, Mouth, and Throat: Denies ear discharge, Reports otalgia, Reports headache(s), Reports sinus pain, Reports sinus pressure and Reports sore throat Cardiovascular Denies chest pain and Reports dyspnea Respiratory Reports chest congestion, Reports cough, Denies hemoptysis, Reports excessive phlegm production and Reports dyspnea Gastrointestinal Gastrointestinal: Denies abdominal pain Genitourinary Denies dysuria Integumentary/Breasts Denies rash Neurologic Denies behavioral changes and Reports headache(s) Psychiatric Denies behavioral changes Hematologic/Lymphatic Comments: Not on anticoagulation [facility] Social History household members: significant other Smoking Status: Former smoker alcohol intake: former Exam Initial Vital Signs Initial Vital Signs: Vital Signs Temperature 98.5 F 03/27/18 11:52 Pulse Rate 96 H 03/27/18 11:52 Respiratory Rate 22 03/27/18 11:52 Blood Pressure 131/65 03/27/18 11:52 Pulse Oximetry 94 01/19/19 11:52 Const General: cooperative, comfortable, well developed, well groomed and No acute distress Orientation: alert and awake HENNV Head: normal to inspection and normocephalic Neck Other: postsurgical changes and trach in place. No bleeding. No redness. Resp Effort & Inspection: tachypneic Other: Patient producing a significant amount of secretions through the trach. His streaked with blood. Does have bilateral rhonchi and wheezing. Cardio Rate: regular rate Rhythm: regular rhythm GI Inspection: non-distended Palpation: soft Skin Rashes: rash noted Extrem General: capillary refill normal Psych Appearance: grossly normal and well kempt Mood: anxious mood Course Orders Ordered: ED Orders 03/27/18 12:00 Complete Blood Count AUTO DIFF Stat Comprehensive Metabolic Panel Stat Lactate (Lactic Acid) Stat Lipase Stat Partial Thromboplastin Time Stat Procalcitonin Stat Prothrombin Time INR Stat 03/27/18 12:12 XR chest 1V Stat 03/27/18 13:36 CT soft tissue neck w con Stat 03/27/18 14:00 Influenza A and B by PCR Rapid Stat 03/27/18 14:11 Blood Culture Stat 03/27/18 17:50 Consult to Dietitian, Adult Routine 03/27/18 17:57 Education, smoking cessation ONGOING 03/27/18 17:59 Consult to Respiratory Therapy Evaluate & Treat 03/27/18 18:25 Endotracheal tube suction As needed Acetaminophen (Tylenol) 650 mg PO Q6HR PRN PRN Reason: As Needed for Fever/Mild Pain Levofloxacin (Levaquin) 750 mg PO DAILY DAMARIS Magnesium Hydroxide (Milk Of Magnesia) 30 ml PO DAILY PRN PRN Reason: Constipation Methylprednisolone (Solu-Medrol 125 Mg Vial) 80 mg IV Q8H [facility] Sennosides (Senna) 17.2 mg PO BEDTIME DAMARIS Discontinued Medications Albuterol (Ventolin) 2.5 mg INH NOW ONE Stop: 03/27/18 13:23 Last Admin: 03/27/18 13:24 Dose: 2.5 mg Albuterol/Ipratropium (Duoneb) 3 ml INH NOW ONE Stop: 03/27/18 12:07 Last Admin: 03/27/18 12:08 Dose: 3 ml Hydromorphone HCl (Dilaudid) 0.5 mg IV NOW ONE Stop: 03/27/18 13:19 Last Admin: 03/27/18 13:27 Dose: 0.5 mg Hydromorphone HCl (Dilaudid) 0.5 mg IV NOW ONE Stop: 03/27/18 14:19 Last Admin: 03/27/18 14:22 Dose: 0.5 mg Hydromorphone HCl (Dilaudid) 0.5 mg IV NOW ONE Stop: 03/27/18 15:59 Last Admin: 03/27/18 16:32 Dose: 0.5 mg Sodium Chloride (Normal Saline 0.9%) 1,000 mls @ 1,000 mls/hr IV BOLUS ONE Stop: 03/27/18 13:11 Last Infusion: 03/27/18 13:17 Dose: 0 mls/hr Admin: 03/27/18 12:25 Dose: 1,000 mls/hr Levofloxacin (Levaquin) 750 mg in 150 mls @ 100 mls/hr IV NOW ONE Stop: 03/27/18 15:05 Last Infusion: 03/27/18 15:12 Dose: 0 mls/hr Admin: 03/27/18 14:12 Dose: 100 mls/hr Morphine Sulfate (Morphine) 4 mg IV NOW ONE Stop: 03/27/18 12:29 Last Admin: 03/27/18 12:29 Dose: 4 mg Vital Signs - 8 hr 03/27/18 11:52 03/27/18 12:30 03/27/18 13:30 Temperature 98.5 F Pulse Rate 96 H 90 85 Respiratory Rate 22 34 H Blood Pressure 131/65 Blood Pressure [Right Arm] 121/93 H Pulse Oximetry 94 94 91 03/27/18 13:43 03/27/18 16:08 03/27/18 17:19 Temperature Pulse Rate 80 87 Respiratory Rate 27 H 20 Blood Pressure 112/62 Blood Pressure [Right Arm] 98/49 L Pulse Oximetry 96 95 96 03/27/18 17:35 Temperature 98.7 F Pulse Rate 80 Respiratory Rate 16 Blood Pressure 136/91 H Blood Pressure [Right Arm] Pulse Oximetry 92 MDM - SOB/Dyspnea Medical Records Attestation: I reviewed the patient's medical records. Lab Data Attestation: I reviewed the patient's lab results. Result diagrams: 03/27/18 12:00 03/27/18 12:00 Lab Results 03/27/18 03/27/18 03/27/18 Range/Units 12:00 12:00 12:00 WBC 11.4 H (4.5-11.0) X10^3/uL RBC 4.38 (4.0-5.2) X10^6/uL Hgb 13.3 (12.0-16.0) g/dL Hct 39.9 (36-46) % MCV 91.1 (80-100) fL MCH 30.3 (26-34) PG MCHC 33.2 (30-36) % RDW 14.3 (11.6-14.8) % Plt Count 290 (150-400) X10^3/uL Neut % (Auto) 77.5 H (50-75) % Lymph % (Auto) 11.7 L (25-40) % [place] % (Auto) 6.7 (3-14) % Eos % (Auto) 3.2 (2-4) % Baso % (Auto) 0.9 (0-2) % Neut # (Auto) 8900 H (2339-7516) /uL Lymph # (Auto) 1300 (1058-9838) /uL [place] # (Auto) 800 (0-900) /uL Eos # (Auto) 400 (0-450) /uL Baso # (Auto) 100 (0-100) /uL PT 11.2 (10.1-12.7) SECONDS INR 1.0 (0.9-1.3) APTT 31 (26.4-36.2) SECONDS Sodium (137-145) mmol/L Potassium (3.4-5.1) mmol/L Chloride (98-107) mmol/L Carbon Dioxide (22-32) mmol/L BUN (7-17) mg/dL Creatinine (0.52-1.04) mg/dL Estimated GFR (>60) mL/min BUN/Creatinine Ratio (6-22) Glucose (70-100) mg/dL Lactate (0.7-2.1) mmol/L Calcium (8.4-10.2) mg/dL Total Bilirubin (0.2-1.3) mg/dL AST (14-36) IU/L ALT (9-52) IU/L Alkaline Phosphatase (38-126) U/L Total Protein (6.3-8.2) g/dL Albumin (3.5-5.0) g/dL Globulin (1.7-4.1) g/dL Albumin/Globulin Ratio (1.0-2.8) Lipase (23-300) U/L Procalcitonin < 0.05 (<0.5) ng/mL Influenza A & B (PCR) (Negative) 03/27/18 03/27/18 03/27/18 Range/Units 12:00 12:00 14:00 WBC (4.5-11.0) X10^3/uL RBC (4.0-5.2) X10^6/uL Hgb (12.0-16.0) g/dL Hct (36-46) % MCV (80-100) fL MCH (26-34) PG MCHC (30-36) % RDW (11.6-14.8) % Plt Count (150-400) X10^3/uL Neut % (Auto) (50-75) % Lymph % (Auto) (25-40) % [place] % (Auto) (3-14) % Eos % (Auto) (2-4) % Baso % (Auto) (0-2) % Neut # (Auto) (6700-9503) /uL Lymph # (Auto) (1465-7489) /uL [place] # (Auto) (0-900) /uL Eos # (Auto) (0-450) /uL Baso # (Auto) (0-100) /uL PT (10.1-12.7) SECONDS INR (0.9-1.3) APTT (26.4-36.2) SECONDS Sodium 140 (137-145) mmol/L Potassium 3.7 (3.4-5.1) mmol/L Chloride 104 (98-107) mmol/L Carbon Dioxide 28 (22-32) mmol/L BUN 14 (7-17) mg/dL Creatinine 0.60 (0.52-1.04) mg/dL Estimated GFR > 60.0 (>60) mL/min BUN/Creatinine Ratio 23.3 H (6-22) Glucose 93 (70-100) mg/dL Lactate 1.4 (0.7-2.1) mmol/L Calcium 8.4 (8.4-10.2) mg/dL Total Bilirubin 0.5 (0.2-1.3) mg/dL AST 25 (14-36) IU/L ALT 20 (9-52) IU/L Alkaline Phosphatase 73 (38-126) U/L Total Protein 6.8 (6.3-8.2) g/dL Albumin 4.0 (3.5-5.0) g/dL Globulin 2.8 (1.7-4.1) g/dL Albumin/Globulin Ratio 1.4 (1.0-2.8) Lipase 68 (23-300) U/L Procalcitonin (<0.5) ng/mL Influenza A & B (PCR) Negative (Negative) Imaging Data Chest x-ray: Radiologist's impression: [address] [address] XRay Report Signed Patient: Nai Zeng [facility]#: [id number] : 1960cct:[id number] Age/Sex: 57 / FDate of Service: 03/27/18 Loc: ED Accession Number: [id number] Procedure: XR chest 1V Ordering Provider: Kwabena Hernandez D.O. PROCEDURE: XR CHEST 1V INDICATIONS: suspected sepsis TECHNIQUE: One view of the chest was acquired. COMPARISON: [facility], , XR CHEST 2 VIEWS, 03/25/2018, 13:41. FINDINGS: Surgical changes and devices: Surgical clips are present throughout the thoracic inlet. Lungs and pleura: No pleural effusions or pneumothorax. Lungs are clear. Mediastinum: Mediastinal contours appear normal. Heart size is normal. Bones and chest wall: No suspicious bony lesions. Overlying soft tissues appear unremarkable. IMPRESSION: No acute cardiopulmonary findings. Dictated by: Charity Tran M.D. on 03/27/2018 at 12:41 Approved by: Charity Tran M.D. on 03/27/2018 at 12:42 CT soft tissue neck: Radiologist's impression: [address] [address] [address] Scan Report Signed Patient: Nai Zeng [facility]#: [id number] : 1Acct:[id number] Age/Sex: 57 / FDate of Service: 03/27/18 Loc: ED Accession Number: [id number] Procedure: CT soft tissue neck w con Ordering Provider: Kwabena Hernandez D.O. PROCEDURE: CT SOFT TISSUE NECK W CON INDICATIONS: hx of CA had trach with pain and a lump TECHNIQUE: After the administration of intravenous contrast, 3.0 mm axial sections acquired from the sella to the aortic arch. Additional oblique axial 3.0 mm sections acquired through the pharynx. 3 mm thick coronal and sagittal reformats were generated. For radiation dose reduction, the following was used: automated exposure control. COMPARISON: [facility], CT, CT SOFT TISSUE NECK W CON, 11/04/2017, 11:41. [facility], CT, CT ANGIO CHEST PE PROTOCOL, 01/25/2018, 16:59. FINDINGS: Image quality: Excellent. Lymph nodes: No enlarged lymph nodes seen throughout the neck. Patient is status post bilateral cervical emma dissection. Vessels: Visualized vasculature appears patent. Neck spaces: Post surgical change is redemonstrated including previous neck dissection, myocutaneous flap placement, and laryngectomy. Tracheostomy is in unchanged position when compared with the study dated 11/04/17. No new soft tissue mass lesions or fluid collections. Glands: Parotid glands appear predominantly with replaced by fat. The submandibular glands are unremarkable. Thyroid gland is not visualized and may be surgically absent.. Miscellaneous: Visualized brain and orbits appear normal. Lung apices appear clear. Superficial soft tissues appear normal. Bones: No suspicious bony lesions. Visualized sinuses and mastoids appear unremarkable. IMPRESSION: Extensive postsurgical change. Findings are similar to the study dated 11/04/17. No findings to explain patient's symptoms. Dictated by: Charity Tran M.D. on 03/27/2018 at 14:23 Approved by: Charity Tran M.D. on 03/27/2018 at 14:30 [facility] Narrative Medical decision making narrative: Chest x-ray does not show any definitive pneumonia however she is producing a significant amount of thick yellow colored sputum. She was given antibiotics here in the emergency department. Her breathing did improve with suctioning by respiratory therapy and also several breathing treatments. A CT scan of her neck was ordered secondary to the soreness she was having and also a lump that she was feeling. Given her history of cancer felt that this was warranted. Shows no signs of acute pathology. she is also producing quite a bit of mucus by her mouth. Given her other upper respiratory symptoms I also suspect that she could be having a upper respiratory infection. Given the history that she has a trach, her history of COPD, feel that a observation here in the emergency department is warranted. I discussed the case with Dr. August who will admit the patient. I discussed the admission with the patient who expressed understanding and agreement Discharge Plan Departure Patient Disposition: Admitted as Observation Clinical Impression: COPD with exacerbation, Sore throat Discharge Date/Time: 03/27/18 17:21 Interventions: ED Discharge Assessment Last Done: 03/27/18 17:19 Admit Date/Time: 03/27/18 15:57 Admit Provider: rBian August
[2018-03-27] MEDS: MORPHINE 4 MG/ML INJ IV (12:29)
[2018-03-27 12:32] LABS: Alanine Aminotransferase 20 IU/L (9-52); Albumin Globulin Ratio 1.4 (1.0-2.8); Alkaline Phosphatase 73 U/L (38-126); Aspartate Aminotransferase 25 IU/L (14-36); BUN Creatinine Ratio 23.3 (6-22); Bilirubin Total 0.5 mg/dL (0.2-1.3); Blood Urea Nitrogen 14 mg/dL (7-17); Calcium 8.4 mg/dL (8.4-10.2); Carbon Dioxide 28 mmol/L (22-32); Chloride 104 mmol/L (98-107); Estimated Glomerular Filt Rate > 60.0 mL/min (>60); Globulin 2.8 g/dL (1.7-4.1); Glucose 93 mg/dL (70-100); HEMOLYSIS < 15 (0-50); Lipase 68 U/L (23-300); Potassium 3.7 mmol/L (3.4-5.1); Sodium 140 mmol/L (137-145); Total Protein 6.8 g/dL (6.3-8.2)
[2018-03-27 12:33] LABS: Add Manual Diff / Slide Review NO; Basophils Absolute Auto 100 /uL (0-100); Basophils Percent Auto 0.9 % (0-2); Eosinophils Absolute Auto 400 /uL (0-450); Eosinophils Percent Auto 3.2 % (2-4); Hematocrit 39.9 % (36-46); Hemoglobin 13.3 g/dL (12.0-16.0); Lymphocytes Absolute Auto 1300 /uL (1100-4500); Lymphocytes Percent Auto 11.7 % (25-40); Mean Corpuscular HGB Conc 33.2 % (30-36); Mean Corpuscular Hemoglobin 30.3 PG (26-34); Mean Corpuscular Volume 91.1 fL (80-100); Monocytes Absolute Auto 800 /uL (0-900); Monocytes Percent Auto 6.7 % (3-14); Neutrophils Absolute Auto 8900 /uL (1500-7000); Neutrophils Percent Auto 77.5 % (50-75); Platelet Count 290 X10^3/uL (150-400); Red Blood Cell Count 4.38 X10^6/uL (4.0-5.2); Red Cell Distribution Width 14.3 % (11.6-14.8); White Blood Cell Count 11.4 X10^3/uL (4.5-11.0)
[2018-03-27 12:51] LABS: Procalcitonin < 0.05 ng/mL (<0.5)
[2018-03-27] MEDS: ALBUTEROL 2.5 MG/3 ML NEB (ADULT) INH (13:24)
[2018-03-27] MEDS: HYDROMORPHONE 1 MG INJ 0.5 MG IV ×2 (13:27→14:22)
--- NOTE | 2018-03-27 13:36 | DI.CT.S_ITS ---
PROCEDURE: CT SOFT TISSUE NECK W CON INDICATIONS: hx of CA had trach with pain and a lump TECHNIQUE: After the administration of intravenous contrast, 3.0 mm axial sections acquired from the sella to the aortic arch. Additional oblique axial 3.0 mm sections acquired through the pharynx. 3 mm thick coronal and sagittal reformats were generated. For radiation dose reduction, the following was used: automated exposure control. COMPARISON: [facility], CT, CT SOFT TISSUE NECK W CON, 11/04/2017, 11:41. [facility], CT, CT ANGIO CHEST PE PROTOCOL, 01/25/2018, 16:59. FINDINGS: Image quality: Excellent. Lymph nodes: No enlarged lymph nodes seen throughout the neck. Patient is status post bilateral cervical emma dissection. Vessels: Visualized vasculature appears patent. Neck spaces: Post surgical change is redemonstrated including previous neck dissection, myocutaneous flap placement, and laryngectomy. Tracheostomy is in unchanged position when compared with the study dated 11/04/17. No new soft tissue mass lesions or fluid collections. Glands: Parotid glands appear predominantly with replaced by fat. The submandibular glands are unremarkable. Thyroid gland is not visualized and may be surgically absent.. Miscellaneous: Visualized brain and orbits appear normal. Lung apices appear clear. Superficial soft tissues appear normal. Bones: No suspicious bony lesions. Visualized sinuses and mastoids appear unremarkable. IMPRESSION: Extensive postsurgical change. Findings are similar to the study dated 11/04/17. No findings to explain patient's symptoms. Dictated by: Charity Tran M.D. on 03/27/2018 at 14:23 Approved by: Charity Tran M.D. on 03/27/2018 at 14:30
[2018-03-27] MEDS: levoFLOXacin 750 MG/150 ML PIGGYBACK 100 MG IV (14:12)
[2018-03-27 14:31] LABS: Influenza A and B by PCR Rapid Negative (Negative)
[2018-03-27] MEDS: HYDROMORPHONE 0.5 MG INJ IV (16:32)
[2018-03-27] MEDS: methylPREDNISolone 125 MG/2 ML VIAL 80 MG IV (18:30)
--- NOTE | 2018-03-27 18:39 | PC.NURSE ---
Pt admitted to acute care from ER. Transferred via stretcher, pivot transferred to bed. Alert/oriented. Uses writing as primary form of communication. Oriented to room/call light. Respiratory precautions placed, sputum culture Gram+Cocci. Per ER nurse, trach was changed and patient suctioned by R.T. Dressing to right of trach site intact - pt sees wound care for this. Pt unable to remember home med list and pharmacy currently closed. Will need verification in AM.
--- NOTE | 2018-03-27 18:52 | PM.HP.1 ---
History of Present Illness Date Patient Seen: 03/27/18 Chief complaint: Respiratory distress Narrative: The patient is a 57-year-old female who presented to the ED with respiratory distress. Patient is noted to have frequent COPD exacerbations. At present time reports a 5 day history of cough with worsening purulence (yellow/green/brown). Temperature at home 99.2. Associated symptoms include subjective chills, headache, and neck discomfort. Denies chest pain, palpitations, dizziness, lightheadedness, abdominal pain, GI distress, dysuria/change in micturition, and signs of blood loss. Recently boyfriend was ill with flu-like symptoms. No specific exacerbating or remitting factors noted PMH: Laryngeal cancer (s/p tracheotomy), tracheobronchitis, anterior neck radiation ulcer, chronic pain, h/o of MRSA infection, PRIOR tobacco dependence, obesity, chronic pain PSH: Neck dissection, myocutaneous flap placement, laryngectomy, tracheostomy FHx: Mother and Father, no known health problems. SHx: Lives w/ boyfriend. Former smoker. Denies alcohol and recreational drug use. Patient History Medical History Tracheobronchitis (Acute) Chronic pain (Acute) Community acquired pneumonia (Acute) Tracheostomy complication (Acute) Otitis media, purulent, acute, with spontaneous rupture of TM (Acute) Laryngeal cancer (Acute) MRSA (methicillin resistant Staphylococcus aureus) (Acute) Family & Social History Family History: Reviewed 03/27/18 by LORI Anaya Social History: household members Significant other Prior Living Arrangements House Safety & Behavioral: Feels Safe in Current Yes Environment Been Physically Hurt or No Threatened By a Person Suicidal Ideation Description None Tobacco & Substance use: Smoking Status Former smoker alcohol intake former alcohol intake frequency 0-2 drinks per day Substance Use Type does not use Meds Home Medications Medication Instructions Recorded Confirmed Type albuterol sulfate 1 dose INHALATION QIDP PRN #180 01/25/16 01/25/18 History docusate sodium 100 mg PO BID #0 01/25/16 01/25/18 History ferrous gluconate 324 mg PO DAILY #0 08/28/16 01/25/18 History omeprazole 20 mg PO DAILY #0 08/28/16 01/25/18 History acetaminophen 650 mg PO Q6HP PRN #0 10/29/16 01/25/18 History amitriptyline 25 mg PO BEDTIME #0 01/22/17 01/25/18 History ascorbic acid (vitamin C) 500 mg PO DAILY #0 06/10/17 01/25/18 History fexofenadine 180 mg PO DAILY #0 06/10/17 01/25/18 History nystatin 1 dose PO DIRECTED #0 06/10/17 01/25/18 History sodium chloride 0.9 % 1 vial QID PRN #0 06/10/17 01/25/18 History citalopram 40 mg PO DAILY 09/21/17 01/25/18 History lisinopril 10 mg PO DAILY 09/21/17 01/25/18 History tramadol 50 mg PO Q6HP PRN 09/21/17 01/25/18 History levothyroxine 1 tab PO DAILY 01/04/18 01/25/18 History levofloxacin [Levaquin] 750 mg PO DAILY #7 tab 01/06/18 01/25/18 Rx prednisone 10 mg PO BID #10 tab 01/06/18 01/25/18 Rx estradiol 1 mg PO DAILY 01/25/18 01/25/18 History doxycycline hyclate 100 mg PO BID #20 cap 02/16/18 Rx Allergies Allergy/AdvReac Type Severity Reaction Status Date / Time hydrocodone Allergy Intermediate RASH/HIVES Verified 01/25/18 12:02 Penicillins Allergy Intermediate RASH/HIVES Verified 01/25/18 12:02 metronidazole Allergy Mild RASH Verified 01/25/18 12:02 diphenhydramine Allergy Unknown Verified 01/25/18 12:02 [DIPHENHYDRAMINE] ibuprofen Allergy Unknown Verified 01/25/18 12:02 oxycodone [OXYCODONE] Allergy Unknown Verified 01/25/18 12:02 venom-wasp Allergy Verified 01/25/18 12:02 ranitidine AdvReac Intermediate SOB/DIZZY Verified 01/25/18 12:02 sulfamethoxazole AdvReac Mild GI UPSET Verified 01/25/18 12:02 [From Bactrim] trimethoprim [From Bactrim] AdvReac Mild GI UPSET Verified 01/04/18 14:30 fentanyl [FENTANYL] AdvReac Unknown vomiting Verified 01/04/18 14:30 ANTACIDS AdvReac Unknown Uncoded 01/04/18 14:30 Review of Systems Review of Systems All systems reviewed & are unremarkable except as noted in HPI and below Exam Vital Signs (past 8 hours): - 03/27/18 11:52 03/27/18 12:30 03/27/18 13:30 Temperature 98.5 F Pulse Rate 96 H 90 85 Respiratory Rate 22 34 H Blood Pressure 131/65 Blood Pressure [Right Arm] 121/93 H Pulse Oximetry 94 94 91 03/27/18 13:43 03/27/18 16:08 03/27/18 17:19 Temperature Pulse Rate 80 87 Respiratory Rate 27 H 20 Blood Pressure 112/62 Blood Pressure [Right Arm] 98/49 L Pulse Oximetry 96 95 96 03/27/18 17:35 Temperature 98.7 F Pulse Rate 80 Respiratory Rate 16 Blood Pressure 136/91 H Blood Pressure [Right Arm] Pulse Oximetry 92 Oxygen Delivery Method Room Air Narrative Exam Narrative: Constitutional: NAD, obese habitus Neurologic: AOx3, no focal neurological deficits Head: NC, AT Eyes: PERRL, EOMI, no scleral icterus Ears: external ears normal, no otorrhea Nose: external nose normal, no rhinorrhea or epistaxis Throat: dry MM, oropharynx w/o exudate Neck: Tracheostomy present, tracheal stoma intact, moderate green purulence present Chest / Respiratory: equal chest rise, rales, inspiratory and expiratory wheeze, on room air, green purulence via trach Heart / CV: S1S2, no murmur Abdomen / GI: central obesity, NT, ND, + BS, no organomegaly : no suprapubic tenderness, no CVA Peripheral / Vascular: warm to touch, DP and PT pulses palpable, no edema Musc: full ROM of upper and lower extremities, adequate muscle tone and bulk Skin: no ecchymosis or suspicious lesions / ulcers Objective Labs Result Diagrams: 03/27/18 12:00 03/27/18 12:00 Labs: Laboratory Results - last 24 hr 03/27/18 03/27/18 03/27/18 12:00 12:00 12:00 WBC 11.4 H RBC 4.38 Hgb 13.3 Hct 39.9 MCV 91.1 MCH 30.3 MCHC 33.2 RDW 14.3 Plt Count 290 Neut % (Auto) 77.5 H Lymph % (Auto) 11.7 L [place] % (Auto) 6.7 Eos % (Auto) 3.2 Baso % (Auto) 0.9 Neut # (Auto) 8900 H Lymph # (Auto) 1300 [place] # (Auto) 800 Eos # (Auto) 400 Baso # (Auto) 100 PT 11.2 INR 1.0 APTT 31 Sodium Potassium Chloride Carbon Dioxide BUN Creatinine Estimated GFR BUN/Creatinine Ratio Glucose Lactate Calcium Total Bilirubin AST ALT Alkaline Phosphatase Total Protein Albumin Globulin Albumin/Globulin Ratio Lipase Procalcitonin < 0.05 Influenza A & B (PCR) 03/27/18 03/27/18 03/27/18 12:00 12:00 14:00 WBC RBC Hgb Hct MCV MCH MCHC RDW Plt Count Neut % (Auto) Lymph % (Auto) [place] % (Auto) Eos % (Auto) Baso % (Auto) Neut # (Auto) Lymph # (Auto) [place] # (Auto) Eos # (Auto) Baso # (Auto) PT INR APTT Sodium 140 Potassium 3.7 Chloride 104 Carbon Dioxide 28 BUN 14 Creatinine 0.60 Estimated GFR > 60.0 BUN/Creatinine Ratio 23.3 H Glucose 93 Lactate 1.4 Calcium 8.4 Total Bilirubin 0.5 AST 25 ALT 20 Alkaline Phosphatase 73 Total Protein 6.8 Albumin 4.0 Globulin 2.8 Albumin/Globulin Ratio 1.4 Lipase 68 Procalcitonin Influenza A & B (PCR) Negative Assessment & Plan Plan: Assessment/Plan Narrative: Acute COPD exacerbation CXR w/o cardiopulmonary findings. Lactate, PCT, and Flu A/B negative. - Duo-Neb Tx Q4H - Methylprednisolone - endotracheal suctioning as needed - levofloxacin - stoma dressing as needed - guaifenesin appeared - Respiratory viral panel - VT prophylaxis Acute neck pain Soft tissue neck CT unremarkable for acute findings. No new soft tissue mass lesion or fluid collection. No lymphadenopathy. 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
--- NOTE | 2018-03-27 19:03 | P.HP_ITS ---
History of Present Illness Date Patient Seen: 03/27/18 Chief complaint: Respiratory distress Narrative: The patient is a 57-year-old female who presented to the ED with respiratory distress. Patient is noted to have frequent COPD exacerbations. At present time reports a 5 day history of cough with worsening purulence (yellow/green/brown). Temperature at home 99.2. Associated symptoms include subjective chills, headache, and neck discomfort. Denies chest pain, palpitations, dizziness, lightheadedness, abdominal pain, GI distress, dysuria/ change in micturition, and signs of blood loss. Recently boyfriend was ill with flu-like symptoms. No specific exacerbating or remitting factors noted PMH: Laryngeal cancer (s/p tracheotomy), tracheobronchitis, anterior neck radiation ulcer, chronic pain, h/o of MRSA infection, PRIOR tobacco dependence, obesity, chronic pain PSH: Neck dissection, myocutaneous flap placement, laryngectomy, tracheostomy FHx: Mother and Father, no known health problems. SHx: Lives w/ boyfriend. Former smoker. Denies alcohol and recreational drug use. Patient History Medical History Tracheobronchitis (Acute) Chronic pain (Acute) Community acquired pneumonia (Acute) Tracheostomy complication (Acute) Otitis media, purulent, acute, with spontaneous rupture of TM (Acute) Laryngeal cancer (Acute) MRSA (methicillin resistant Staphylococcus aureus) (Acute) Family & Social History Family History: Reviewed 03/27/18 by LORI Anaya Social History: household members Significant other Prior Living Arrangements House Safety & Behavioral: Feels Safe in Current Yes Environment Been Physically Hurt or No Threatened By a Person Suicidal Ideation Description None Tobacco & Substance use: Smoking Status Former smoker alcohol intake former alcohol intake frequency 0-2 drinks per day Substance Use Type does not use Meds Home Medications Medication Instructions Recorded Confirmed Type albuterol sulfate 1 dose INHALATION QIDP PRN #180 01/25/16 01/25/18 History docusate sodium 100 mg PO BID #0 01/25/16 01/25/18 History ferrous gluconate 324 mg PO DAILY #0 08/28/16 01/25/18 History omeprazole 20 mg PO DAILY #0 08/28/16 01/25/18 History acetaminophen 650 mg PO Q6HP PRN #0 10/29/16 01/25/18 History amitriptyline 25 mg PO BEDTIME #0 01/22/17 01/25/18 History ascorbic acid (vitamin C) 500 mg PO DAILY #0 06/10/17 01/25/18 History fexofenadine 180 mg PO DAILY #0 06/10/17 01/25/18 History nystatin 1 dose PO DIRECTED #0 06/10/17 01/25/18 History sodium chloride 0.9 % 1 vial QID PRN #0 06/10/17 01/25/18 History citalopram 40 mg PO DAILY 09/21/17 01/25/18 History lisinopril 10 mg PO DAILY 09/21/17 01/25/18 History tramadol 50 mg PO Q6HP PRN 09/21/17 01/25/18 History levothyroxine 1 tab PO DAILY 01/04/18 01/25/18 History levofloxacin [Levaquin] 750 mg PO DAILY #7 tab 01/06/18 01/25/18 Rx prednisone 10 mg PO BID #10 tab 01/06/18 01/25/18 Rx estradiol 1 mg PO DAILY 01/25/18 01/25/18 History doxycycline hyclate 100 mg PO BID #20 cap 02/16/18 Rx Allergies Allergy/AdvReac Type Severity Reaction Status Date / Time hydrocodone Allergy Intermediate RASH/HIVES Verified 01/25/18 12:02 Penicillins Allergy Intermediate RASH/HIVES Verified 01/25/18 12:02 metronidazole Allergy Mild RASH Verified 01/25/18 12:02 diphenhydramine Allergy Unknown Verified 01/25/18 12:02 [DIPHENHYDRAMINE] ibuprofen Allergy Unknown Verified 01/25/18 12:02 oxycodone [OXYCODONE] Allergy Unknown Verified 01/25/18 12:02 venom-wasp Allergy Verified 01/25/18 12:02 ranitidine AdvReac Intermediate SOB/DIZZY Verified 01/25/18 12:02 sulfamethoxazole AdvReac Mild GI UPSET Verified 01/25/18 12:02 [From Bactrim] trimethoprim [From Bactrim] AdvReac Mild GI UPSET Verified 01/04/18 14:30 fentanyl [FENTANYL] AdvReac Unknown vomiting Verified 01/04/18 14:30 ANTACIDS AdvReac Unknown Uncoded 01/04/18 14:30 Review of Systems Review of Systems All systems reviewed & are unremarkable except as noted in HPI and below Exam Vital Signs (past 8 hours): - 03/27/18 11:52 03/27/18 12:30 03/27/18 13:30 Temperature 98.5 F Pulse Rate 96 H 90 85 Respiratory Rate 22 34 H Blood Pressure 131/65 Blood Pressure [Right Arm] 121/93 H Pulse Oximetry 94 94 91 03/27/18 13:43 03/27/18 16:08 03/27/18 17:19 Temperature Pulse Rate 80 87 Respiratory Rate 27 H 20 Blood Pressure 112/62 Blood Pressure [Right Arm] 98/49 L Pulse Oximetry 96 95 96 03/27/18 17:35 Temperature 98.7 F Pulse Rate 80 Respiratory Rate 16 Blood Pressure 136/91 H Blood Pressure [Right Arm] Pulse Oximetry 92 Oxygen Delivery Method Room Air Narrative Exam Narrative: Constitutional: NAD, obese habitus Neurologic: AOx3, no focal neurological deficits Head: NC, AT Eyes: PERRL, EOMI, no scleral icterus Ears: external ears normal, no otorrhea Nose: external nose normal, no rhinorrhea or epistaxis Throat: dry MM, oropharynx w/o exudate Neck: Tracheostomy present, tracheal stoma intact, moderate green purulence present Chest / Respiratory: equal chest rise, rales, inspiratory and expiratory wheeze , on room air, green purulence via trach Heart / CV: S1S2, no murmur Abdomen / GI: central obesity, NT, ND, + BS, no organomegaly : no suprapubic tenderness, no CVA Peripheral / Vascular: warm to touch, DP and PT pulses palpable, no edema Musc: full ROM of upper and lower extremities, adequate muscle tone and bulk Skin: no ecchymosis or suspicious lesions / ulcers Objective Labs Result Diagrams: 03/27/18 12:00 03/27/18 12:00 Labs: Laboratory Results - last 24 hr 03/27/18 03/27/18 03/27/18 12:00 12:00 12:00 WBC 11.4 H RBC 4.38 Hgb 13.3 Hct 39.9 MCV 91.1 MCH 30.3 MCHC 33.2 RDW 14.3 Plt Count 290 Neut % (Auto) 77.5 H Lymph % (Auto) 11.7 L [place] % (Auto) 6.7 Eos % (Auto) 3.2 Baso % (Auto) 0.9 Neut # (Auto) 8900 H Lymph # (Auto) 1300 [place] # (Auto) 800 Eos # (Auto) 400 Baso # (Auto) 100 PT 11.2 INR 1.0 APTT 31 Sodium Potassium Chloride Carbon Dioxide BUN Creatinine Estimated GFR BUN/Creatinine Ratio Glucose Lactate Calcium Total Bilirubin AST ALT Alkaline Phosphatase Total Protein Albumin Globulin Albumin/Globulin Ratio Lipase Procalcitonin < 0.05 Influenza A & B (PCR) 03/27/18 03/27/18 03/27/18 12:00 12:00 14:00 WBC RBC Hgb Hct MCV MCH MCHC RDW Plt Count Neut % (Auto) Lymph % (Auto) [place] % (Auto) Eos % (Auto) Baso % (Auto) Neut # (Auto) Lymph # (Auto) [place] # (Auto) Eos # (Auto) Baso # (Auto) PT INR APTT Sodium 140 Potassium 3.7 Chloride 104 Carbon Dioxide 28 BUN 14 Creatinine 0.60 Estimated GFR > 60.0 BUN/Creatinine Ratio 23.3 H Glucose 93 Lactate 1.4 Calcium 8.4 Total Bilirubin 0.5 AST 25 ALT 20 Alkaline Phosphatase 73 Total Protein 6.8 Albumin 4.0 Globulin 2.8 Albumin/Globulin Ratio 1.4 Lipase 68 Procalcitonin Influenza A & B (PCR) Negative Assessment & Plan Plan: Assessment/Plan Narrative: Acute COPD exacerbation CXR w/o cardiopulmonary findings. Lactate, PCT, and Flu A/B negative. - Duo-Neb Tx Q4H - Methylprednisolone - endotracheal suctioning as needed - levofloxacin - stoma dressing as needed - guaifenesin appeared - Respiratory viral panel - VT prophylaxis Acute neck pain Soft tissue neck CT unremarkable for acute findings. No new soft tissue mass lesion or fluid collection. No lymphadenopathy. - Tylenol and Tramadol available for pain prn Essential hypertension, stable, resume [employer] antihypertensive agents Hypothyroidism: resume [employer] dose / regimen of levothyroxine Chronic Pain w/ opioid dependence - Tylenol and Tramadol per home dose / regimen Quality VTE Deep Vein Thrombosis/Pulmonary Embolism Present on Admission: No
[2018-03-27] MEDS: ACETAMINOPHEN 325 MG TABLET 650 MG PO (20:33)
[2018-03-27] MEDS: TRAMADOL 50 MG TABLET PO (21:53)
--- NOTE | 2018-03-27 23:41 | PC.NURSE ---
evening shift note- patient arrived to [facility] via [facility] from ER. Admission questions completed, physical assessemnt done, unbale to review medications with patient. patient states i dont know what I take., patients pharmacy closed at this time. patient comjmunicates via writing, paper and pen provided. patient oriented to bed and bed controls, room, phone, lights, and call murcia/tv remote. safety measures in place. bed alarm activated. call murcia and phone within reach. will continue to monitor.
[2018-03-28] VITALS (12 sets, daily range): BP systolic 125–157; BP diastolic 70–95; PULSE 78–107; RESP 15–30; TEMP 36.6–37.1; O2SAT 93–96
[2018-03-28] MEDS: methylPREDNISolone 125 MG/2 ML VIAL 80 MG IV ×3 (02:24→17:48)
[2018-03-28] MEDS: SODIUM CHLORIDE 0.9% FLUSH 10 ML IV ×2 (02:24→08:06)
[2018-03-28 05:38] LABS: Blood Urea Nitrogen 12 mg/dL (7-17); Calcium 8.6 mg/dL (8.4-10.2); Carbon Dioxide 27 mmol/L (22-32); Chloride 104 mmol/L (98-107); Estimated Glomerular Filt Rate > 60.0 mL/min (>60); Glucose 153 mg/dL (70-100); HEMOLYSIS < 15 (0-50); Potassium 3.9 mmol/L (3.4-5.1); Sodium 139 mmol/L (137-145)
[2018-03-28] MEDS: TRAMADOL 50 MG TABLET PO (08:06)
[2018-03-28 08:10] LABS: Bacteria Urine None Seen; RBC Urine None Seen (0-5/HPF); WBC Urine None Seen (0-5/HPF)
[2018-03-28 08:11] LABS: Appearance Urine UA CLEAR; Bilirubin Urine UA NEGATIVE (NEGATIVE); Color Urine UA YELLOW; Glucose Urine UA NEGATIVE (Negative); Ketones Urine UA NEGATIVE (NEGATIVE); Leukocyte Esterase Urine UA NEGATIVE (NEGATIVE); Nitrite Urine UA NEGATIVE (Negative); Occult Blood Urine UA TRACE-INTACT (Negative); Protein Urine UA NEGATIVE (Negative); Specific Gravity Urine UA 1.015 (1.000-1.035); Urobilinogen Urine UA 0.2 E.U./dL (0.2)
[2018-03-28 08:32] LABS: Culture Indicated Urine Cult Not Indicated; Urine Comments Microscopic Normal
[2018-03-28] MEDS: ACETAMINOPHEN 325 MG TABLET 650 MG PO (09:45)
[2018-03-28] MEDS: CITALOPRAM 20 MG TABLET 40 MG PO (09:46)
[2018-03-28] MEDS: LISINOPRIL 10 MG TABLET PO (09:46)
[2018-03-28] MEDS: LORATADINE 10 MG TABLET PO (09:46)
[2018-03-28] MEDS: ALBUTEROL/IPRATROPIUM 3 ML AMPUL INH ×3 (10:02→15:44)
[2018-03-28] MEDS: LEVOTHYROXINE 88 MCG TABLET PO (10:51)
--- NOTE | 2018-03-28 11:16 | CM.DANOTE ---
Patient is a 57 year old female who was admitted on 03/27/18 for Respiratory Distress. Pt has [employer] and [facility] for insurance and her PCP is Dr. Eusebio Hammer. EMR was reviewed. Per MD, pt has a hx of laringeal cancer and trach placement. SW met bedside with pt and explained role and pt confirmed via writing (due to her trachectomy) that she still lives at home in [place] with significant other, JR, and since her last admit in Dec 2017 she had a caregiver that came in 3 days a week to help patient but unfortunately her CG got another job and pt has been working with her [facility] to get another CG. Pt states that someone else has been temporarily coming in - from 11-08 to help but this person is only a temporary solution until another CG can be found. Sig Other JR works multimedia manager and is not available usually during the week days. Patient has been managing trach and going to [facility] for wound care outpt. Has been independent, and drives as well. Patient can't talk, but uses a note pad to write on to communicate. Pt denies any hx of HH or SNF, even after her Trach placement, and states that she prefers to d/c home with possible HH RN for wound care. RN trying to get ahold of JR to update on pt progress per pt request as he usually sleeps later on the weekends. SW needs unclear at this time. Plan: SW to follow closely to determine if pt will be safe for return home with Sig Other JR and temporary CG in place 3x's a week and new HH chrome tanner. JIL Gusman Discharge Planning/Care Management Discharge Assessment Start: 03/28/18 11:14 Freq: Status: Active Protocol: Document 03/28/18 11:14 BF (Rec: 03/28/18 11:16 BF [id number]) Discharge Planning Assessment Assigned Manager Quality Compliance JIL Ramirez Advance Directives? No History Provided By Patient Medical Record Has Patient been admitted in last 30 No days? Prior Living Arrangements House Household Members significant other Type of transporation used prior to Relies on Others admit Independent with ADL's No Is patient alert and oriented? Yes Needs Assistance With Meal Prep Managing Medications Home Chores / Shopping Caregiver for Another No Community Services used prior to Wound Care admission: Comment d/c planning needs unclear at this time. Discharge Plan Home Community Services Home Health Nurse Wound Care Transportation Arrangement Significant other or friend can likely plan to pick her up Additional Comment Waiting for further needs to determine d/c planning Whiteboard Updated in Patient Room with Yes name and ext. # of Manager Quality Compliance Review Status In Process Please Provide Date Initial DC 03/28/18 Assessment Was Performed Next Review Type Continued Stay Review
[2018-03-28] MEDS: MORPHINE 2 MG/ML INJ IV (11:45)
[2018-03-28] MEDS: levoFLOXacin 250 MG TABLET 750 MG PO (13:09)
--- NOTE | 2018-03-28 14:06 | P.PN_ITS ---
Subjective Date Patient Seen: 03/28/18 Interval history: Patient is 57-year-old female with chronic tracheostomy, COPD , frequent COPD exacerbations admitted with COPD exacerbation. This morning she developed acute anxiety, hypertension, tachycardia, respiratory distress associated with sharp pain in her left anterior chest. EKG without any new findings and no evidence of ischemia. She responded to morphine and lorazepam. She has a lot of thick secretions in the bronchial passages and trachea requiring suctioning. Sputum positive for Gram-positive cocci, id pending. Exam Vital Signs (past 8 hours): - 03/28/18 08:00 03/28/18 10:03 03/28/18 12:12 Temperature 98.1 F Pulse Rate 84 92 H 100 H Respiratory Rate 18 30 H 26 H Blood Pressure 145/89 H Pulse Oximetry 93 96 Fraction of Inspired Oxygen 28 Oxygen Delivery Method Trach Collar Oxygen Flow Rate 8 Narrative Exam Narrative: GENERAL: Patient anxious, tachypneic and appears in severe distress, communicates by writing things down on paper CHEST: Diffuse bilateral inspiratory and expiratory wheeze CARDIAC: Tachycardic with regular rhythm ABDOMEN: Nondistended, soft, nontender EXTREMITIES: no edema. NEUROLOGICAL: Appears anxious, nonfocal SKIN: Warm, dry, no petechiae, no rash Objective Labs Result Diagrams: 03/27/18 12:00 03/28/18 05:13 Labs: Laboratory Results - last 24 hr 03/27/18 03/28/18 03/28/18 14:00 05:13 08:00 Sodium 139 Potassium 3.9 Chloride 104 Carbon Dioxide 27 BUN 12 Creatinine 0.50 L Estimated GFR > 60.0 BUN/Creatinine Ratio 24.0 H Glucose 153 H Calcium 8.6 Urine Color Yellow Urine Appearance Clear Urine pH 7.0 Ur Specific [place] 1.015 Urine Protein Negative Urine Glucose (UA) Negative Urine Ketones Negative Urine Occult Blood Trace-intact Urine Nitrate Negative Urine Bilirubin Negative Urine Urobilinogen 0.2 Ur Leukocyte Esterase Negative Urine RBC None seen Urine WBC None seen Urine Bacteria None seen Ur Culture Indicated? Cult not indicated Micro UA Comment Microscopic normal Influenza A & B (PCR) Negative Assessment & Plan Plan: Assessment/Plan Narrative: 1. COPD exacerbation, acute (without acute respiratory failure) -still with significant respiratory distress, thick mucus secretions and diffuse wheeze on exam, recorded normal O2 sats on room air -CXR w/o cardiopulmonary findings. Lactate, PCT, and Flu A/B negative -continue Solu-Medrol 80 mg q.8 hours, Levaquin 750 mg q.day, guaifenesin -endotracheal suction as needed -IV morphine and lorazepam as needed for respiratory distress and to alleviate associated anxiety and chest discomfort from coughing 2. Acute neck pain due to muscle strain, present on admission -Soft tissue neck CT unremarkable for acute findings. No new soft tissue mass lesion or fluid collection. No lymphadenopathy. - Tylenol and Tramadol available for pain prn 3. Hypertension -continue routine medications 4. Hypothyroidism -continue levothyroxine 5. Chronic pain with opioid dependency -continue Tylenol and tramadol per home routine Disposition: Continue inpatient management of COPD exacerbation. Quality VTE Deep Vein Thrombosis/Pulmonary Embolism Present on Admission: No
[2018-03-28] MEDS: LORazepam 2 MG/ML SYRINGE 1 MG IV ×2 (15:06→18:59)
[2018-03-28] MEDS: MORPHINE 4 MG/ML INJ IV ×2 (17:48→22:29)
--- NOTE | 2018-03-28 22:13 | PC.NURSE ---
Pt has had increased anxiety/worry this shift because the contact number we have for her sister is an old one. Her sister has moved to [facility]. I contacted her brother Refugio and he said he would try to find Sherri's number, he stated I haven't had contact with her for a while, so not sure if there is anything I can do, but I will try. I also called Trae and left a message per patients request.
[2018-03-29] VITALS (10 sets, daily range): BP systolic 113–165; BP diastolic 66–88; PULSE 72–91; RESP 16–28; TEMP 36.4–36.8; O2SAT 92–97
[2018-03-29] MEDS: TRAMADOL 50 MG TABLET PO ×3 (00:08→22:18)
[2018-03-29] MEDS: methylPREDNISolone 125 MG/2 ML VIAL 80 MG IV ×3 (02:31→16:59)
[2018-03-29 05:42] LABS: Add Manual Diff / Slide Review NO; Basophils Absolute Auto 0 /uL (0-100); Basophils Percent Auto 0.1 % (0-2); Eosinophils Absolute Auto 0 /uL (0-450); Hematocrit 37.1 % (36-46); Hemoglobin 12.4 g/dL (12.0-16.0); Lymphocytes Absolute Auto 700 /uL (1100-4500); Mean Corpuscular HGB Conc 33.5 % (30-36); Mean Corpuscular Hemoglobin 30.3 PG (26-34); Mean Corpuscular Volume 90.6 fL (80-100); Monocytes Absolute Auto 400 /uL (0-900); Monocytes Percent Auto 2.3 % (3-14); Neutrophils Absolute Auto 17300 /uL (1500-7000); Neutrophils Percent Auto 93.6 % (50-75); Platelet Count 327 X10^3/uL (150-400); Red Blood Cell Count 4.09 X10^6/uL (4.0-5.2); Red Cell Distribution Width 14.3 % (11.6-14.8); White Blood Cell Count 18.5 X10^3/uL (4.5-11.0)
[2018-03-29] MEDS: LEVOTHYROXINE 88 MCG TABLET PO (06:17)
[2018-03-29] MEDS: MORPHINE 4 MG/ML INJ IV ×4 (08:56→21:04)
[2018-03-29] MEDS: CITALOPRAM 20 MG TABLET 40 MG PO (08:57)
[2018-03-29] MEDS: levoFLOXacin 250 MG TABLET 750 MG PO (08:58)
[2018-03-29] MEDS: ALBUTEROL/IPRATROPIUM 3 ML AMPUL INH (08:58)
[2018-03-29] MEDS: LISINOPRIL 10 MG TABLET PO (08:58)
[2018-03-29] MEDS: ENOXAPARIN 40 MG/0.4 ML SYRINGE SUBCUT (08:58)
[2018-03-29] MEDS: LORATADINE 10 MG TABLET PO (08:58)
--- NOTE | 2018-03-29 14:02 | PC.NURSE ---
Day shift: Dr Harrison made aware of the Corynebacterium (Diphtheria) sputum report from lab.
[2018-03-29] MEDS: AZITHROMYCIN 250 MG TABLET 500 MG PO (16:58)
--- NOTE | 2018-03-29 17:05 | PM.PN.1 ---
Subjective Date Patient Seen: 03/29/18 Interval history: Patient is a 57-year-old female with a chronic trach, COPD exacerbation, chronic respiratory failure, acute tracheobronchitis here in the hospital for COPD exacerbation. Patient continues to have significant cough. She continues to have significant sputum production. Her tracheal aspirate is growing diphtheroids. Antibiotics will be adjusted accordingly. Exam Vital Signs (past 8 hours): - 03/29/18 09:11 03/29/18 10:00 03/29/18 11:50 Temperature 97.5 F L Pulse Rate 85 75 Respiratory Rate 28 H 16 Blood Pressure 113/69 Pulse Oximetry 95 96 03/29/18 15:12 03/29/18 16:37 Temperature 97.9 F Pulse Rate 78 Respiratory Rate 28 H 18 Blood Pressure 147/88 H Pulse Oximetry 97 96 Fraction of Inspired Oxygen 0.28 Oxygen Delivery Method Venturi Mask Oxygen Flow Rate 8 Narrative Exam Narrative: Ill appearing female trach in place There is thick secretions coming from the trach. Patient is coughing. Lungs: Diffuse rhonchi Cardiac exam: Regular rate rhythm normal S1-S2 Abdomen: Soft nontender nondistended Extremity: No edema Objective Labs Result Diagrams: 03/29/18 05:18 03/28/18 05:13 Labs: Laboratory Results - last 24 hr 03/29/18 05:18 WBC 18.5 H D RBC 4.09 Hgb 12.4 Hct 37.1 MCV 90.6 MCH 30.3 MCHC 33.5 RDW 14.3 Plt Count 327 Neut % (Auto) 93.6 H Lymph % (Auto) 4.0 L [place] % (Auto) 2.3 L Eos % (Auto) 0.0 L Baso % (Auto) 0.1 Neut # (Auto) 06522 H Lymph # (Auto) 700 L [place] # (Auto) 400 Eos # (Auto) 0 Baso # (Auto) 0 Assessment & Plan (1) COPD (chronic obstructive pulmonary disease): Problem details: COPD exacerbation, present on admission acute Will continue steroids nebulizer and breathing treatment Qualifiers: COPD type: unspecified COPD Chronic bronchitis type: Emphysema type: Qualified Code(s): J44.9 - Chronic obstructive pulmonary disease, unspecified Current visit: No Status: Acute (2) Tracheobronchitis: Problem details: Tracheal bronchitis present on admission acute. Cultures growing diphtheroids. Will discontinue levofloxacin and start azithromycin. Current visit: No Status: Acute (3) Chronic pain: Problem details: Patient has chronic pain, with opioid dependence. Will continue her usual pain regimen. Current visit: No Status: Acute (4) Hypertension: Problem details: Hypertension, chronic, present on admission. Will continue usual outpatient regimen. Current visit: Yes Status: Acute (5) Hypothyroidism: Problem details: Hypothyroidism. Chronic. Present on admission. Continue her usual thyroid medication. Current visit: Yes Status: Acute Quality VTE Deep Vein Thrombosis/Pulmonary Embolism Present on Admission: No
[2018-03-29] MEDS: ACETAMINOPHEN 325 MG TABLET 650 MG PO (17:14)
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
[2018-03-29] MEDS: SENNOSIDES 8.6 MG TABLET 17.2 MG PO (21:14)
[2018-03-29] MEDS: LORazepam 2 MG/ML SYRINGE 1 MG IV (22:18)
[2018-03-30] VITALS (11 sets, daily range): BP systolic 118–154; BP diastolic 71–108; PULSE 71–96; RESP 12–19; TEMP 36.6–36.7; O2SAT 93–98
[2018-03-30] MEDS: SODIUM CHLORIDE 0.9% FLUSH 10 ML IV ×2 (02:36→09:29)
[2018-03-30] MEDS: methylPREDNISolone 125 MG/2 ML VIAL 80 MG IV ×3 (02:36→20:00)
[2018-03-30] MEDS: LEVOTHYROXINE 88 MCG TABLET PO (06:06)
[2018-03-30 06:13] LABS: Add Manual Diff / Slide Review NO; Basophils Absolute Auto 0 /uL (0-100); Basophils Percent Auto 0.2 % (0-2); Eosinophils Absolute Auto 0 /uL (0-450); Hematocrit 37.8 % (36-46); Hemoglobin 12.6 g/dL (12.0-16.0); Lymphocytes Absolute Auto 600 /uL (1100-4500); Lymphocytes Percent Auto 3.7 % (25-40); Mean Corpuscular HGB Conc 33.3 % (30-36); Mean Corpuscular Hemoglobin 30.2 PG (26-34); Mean Corpuscular Volume 90.6 fL (80-100); Monocytes Absolute Auto 600 /uL (0-900); Monocytes Percent Auto 3.6 % (3-14); Neutrophils Absolute Auto 16200 /uL (1500-7000); Neutrophils Percent Auto 92.5 % (50-75); Platelet Count 355 X10^3/uL (150-400); Red Blood Cell Count 4.17 X10^6/uL (4.0-5.2); Red Cell Distribution Width 14.5 % (11.6-14.8); White Blood Cell Count 17.5 X10^3/uL (4.5-11.0)
[2018-03-30 06:24] LABS: BUN Creatinine Ratio 32.5 (6-22); Blood Urea Nitrogen 26 mg/dL (7-17); Calcium 8.6 mg/dL (8.4-10.2); Carbon Dioxide 29 mmol/L (22-32); Chloride 100 mmol/L (98-107); Estimated Glomerular Filt Rate > 60.0 mL/min (>60); Glucose 152 mg/dL (70-100); HEMOLYSIS < 15 (0-50); Potassium 4.4 mmol/L (3.4-5.1); Sodium 137 mmol/L (137-145)
[2018-03-30] MEDS: ENOXAPARIN 40 MG/0.4 ML SYRINGE SUBCUT (09:30)
[2018-03-30] MEDS: LORATADINE 10 MG TABLET PO (09:35)
[2018-03-30] MEDS: CITALOPRAM 20 MG TABLET 40 MG PO (09:35)
[2018-03-30] MEDS: LISINOPRIL 10 MG TABLET PO (09:35)
[2018-03-30] MEDS: AZITHROMYCIN 250 MG TABLET 500 MG PO (09:35)
[2018-03-30] MEDS: ALBUTEROL/IPRATROPIUM 3 ML AMPUL INH ×3 (10:05→18:37)
--- NOTE | 2018-03-30 11:20 | PT.IPTN ---
Current Diagnoses Hypothyroidism, unspecified (03/27/18) Other chronic pain (03/27/18) Essential (primary) hypertension (03/27/18) Acute pharyngitis, unspecified (03/27/18) Bronchitis, not specified as acute or chronic (03/27/18) Chronic obstructive pulmonary disease with (acute) exacerbation (03/27/18) Chronic obstructive pulmonary disease, unspecified (03/27/18) Physical Therapy Treatment Note M2 PT-IP Current Condition Start: 03/29/18 09:58 Freq: NEEDED Status: Active Protocol: Document 03/29/18 15:45 HH (Rec: 03/29/18 18:42 HH [id number]) Physical Therapy Current Condition Current Condition Evaluation Date 03/29/18 Treatment Diagnosis Acute COPD exacerbation, difficulty in walking, generalized muscle weakness Onset Date 03/27/18 Weight Bearing Status Weight Bearing Status Weight Bear as Tolerated M3 PT-IP Subjective Start: 03/29/18 09:58 Freq: NEEDED Status: Active Protocol: Document 03/30/18 11:20 AB (Rec: 03/30/18 12:23 AB [id number]) Subjective Physical Therapy Visit Type Type Treatment Note Visit Start Time 11:20 Visit Stop Time 11:49 Total Visit Minutes 29 Number of BLOCK FEEDER Visits 0 Physical Therapy Visit Comments Patient Comments pt agreeable to do PT Therapy Pain Assessment Pain When Pain Assessed During Mobility Pain Present Pain Present Pain Reported Location Left Knee Scale Used pain scale not stated Description Chronic With Movement M4 PT-IP Mobility and Gait Start: 03/29/18 09:58 Freq: NEEDED Status: Active Protocol: Document 03/30/18 11:20 AB (Rec: 03/30/18 12:23 AB [id number]) PT-Transfer Assessment Sit to and From Stand Sit to and from Stand Standby Assistance Use of Upper Extremities Equipment Transfer Assistive Device Bed Rail Straight Cane Orthotic/Prosthetic Devices or Brace: No Transfers Transfer Destination Toilet Transfer Technique pt ambulated from chair to the toilet using SPC Transfer Ability Level of Assist Standby Assistance Contact Guard Assistance Comments Mobility Comments pt ambulated ~ 8 ft from chair to the toilet using SPC SBA to CGA. pt tends to reach for the wall/rail/counter with other hand during mobility. Pt was able to maintain standing balance without AD SBA and manage hygiene care and brief management. pt ambulated from the toilet to the sink using SPC SBA to CGA and was able to maintain standing SBA while completing handwashing. Pt refused to use FWW for mobility and wants to use SPC. Gait Assessment Gait Gait Assistance Required: Standby Assistance Contact Guard Assist Distance (Feet) 35 Able to Maintain Weight Bearing Status Yes During Gait Assistive Devices Assistive Device Gait Belt Straight Cane Orthotic/Prosthetic Devices or Brace: No Gait Deviations General Gait Pattern Antalgic Decreased Stride Length Decreased Feet Clearance Factors Limiting Gait Function Factors Limiting Gait Function Decreased Activity Tolerance Decreased Strength Limited Range of Motion Pain Comments Gait Comments pt c/o L knee pain during mobility. informed PT that is sometimes gives out and locks out on her. M5 PT-IP Objective Assessments Start: 03/29/18 09:58 Freq: NEEDED Status: Active Protocol: Document 03/29/18 15:45 HH (Rec: 03/29/18 18:42 HH [id number]) Orientation Orientation/Cognition Level of Alertness Alert Orientation Name Age Birthday Month Date Year Day of Week Place Situation Safety Awareness Understands Safety Issues Comments communicate via writing Gross Range of Motion Upper Extremity ROM Assessment Within Functional Limits Lower Extremity ROM Assessment Within Functional Limits Strength Upper Extremity Strength Assessment Within Functional Limits Lower Extremity Strength Assessment Left Impaired Comments Strength Comments 3+/5 of LLE MMT grossly Coordination Assessment Gross Coordination Gross Coordination WNL Sensation Assessment Sensation Gross Sensation WNL Muscle Tone Muscle Tone WNL Yes M6 PT-IP Treatment Start: 03/29/18 09:58 Freq: NEEDED Status: Active Protocol: Document 03/30/18 11:20 AB (Rec: 03/30/18 12:23 AB [id number]) Physical Therapy Treatment Education Education Provided Safety M7 PT-IP Assessment and Plan Start: 03/29/18 09:58 Freq: NEEDED Status: Active Protocol: Document 03/30/18 11:20 AB (Rec: 03/30/18 12:23 AB [id number]) PT Summary Assessment and Plan Potential Rehabilitation Potential Good Summary Impairments Pain ROM Strength Balance Sensation Tone Cognition Bed Mobility Transfers Gait Activity Tolerance Progress Towards Goals Slow Progress due to Activity Tolerance Assessment Summary pt requires SBA to CGA with transfers and ambulation using SPC but presents with decrease activity tolerance and unable to further ambulation after first walk. Pt plans to go home with JUAN caregiver to assist her. Goals Bed Mobility Goal Independent Transfer Goal Independent Gait Goal Independent Gait Distance 200 Other Goals without signs of LOB Days to Meet Goals 5 Frequency of Treatment Frequency Of Treatment Once a Day Treatment Plan Physical Therapy Treatment Plan Bed Mobility Training Transfer Training Gait Training Therapeutic Exercise Balance Retraining Discharge Planning Other Recommendations and Next Treatment ambulation using SPC; stair Focus climbing Recommendations To Nursing Amount of Assist Needed Standby Assistance 1 Person Assist Discharge Recommendations PT Discharge Recommendations Home with Assistance
--- NOTE | 2018-03-30 12:17 | PM.PN.1 ---
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 She reports continued shortness of breath. She also notes wheezing seems to be worse at night. She still reports that she does not feel back to her baseline. She has not had low-grade fever. Her chest x-ray is negative for infiltrate. The patient also reports feeling of her mouth burning. She states she has discussed this with her primary care provider but no results Exam Vital Signs (past 8 hours): - 03/30/18 05:27 03/30/18 07:55 03/30/18 10:17 Temperature 97.8 F 97.9 F Pulse Rate 78 73 80 Respiratory Rate 18 16 16 Blood Pressure 143/85 H 151/95 H Pulse Oximetry 93 94 96 03/30/18 10:58 Temperature 98.0 F Pulse Rate 88 Respiratory Rate 16 Blood Pressure 126/71 Pulse Oximetry 93 Fraction of Inspired Oxygen 28 Oxygen Delivery Method Trach Collar Oxygen Flow Rate 8 Narrative Exam Narrative: Pleasant female resting comfortably in no acute distress Oropharynx: No exudates noted. Mild erythema. Neck: Stoma site with thick secretions, patient coughing during exam Lungs: Decreased breath sounds, end-expiratory wheezing, scattered rhonchi bilaterally Cardiac exam: Regular rate and rhythm normal S1 and S2 Abdomen: Soft nontender nondistended Extremities: No edema Objective Labs Result Diagrams: 03/30/18 05:55 03/30/18 05:55 Labs: Laboratory Results - last 24 hr 03/30/18 03/30/18 05:55 05:55 WBC 17.5 H RBC 4.17 Hgb 12.6 Hct 37.8 MCV 90.6 MCH 30.2 MCHC 33.3 RDW 14.5 Plt Count 355 Neut % (Auto) 92.5 H Lymph % (Auto) 3.7 L [place] % (Auto) 3.6 Eos % (Auto) 0.0 L Baso % (Auto) 0.2 Neut # (Auto) 12774 H Lymph # (Auto) 600 L [place] # (Auto) 600 Eos # (Auto) 0 Baso # (Auto) 0 Sodium 137 Potassium 4.4 Chloride 100 Carbon Dioxide 29 BUN 26 H Creatinine 0.80 Estimated GFR > 60.0 BUN/Creatinine Ratio 32.5 H Glucose 152 H Calcium 8.6 Assessment & Plan (1) Tracheobronchitis: Problem details: Tracheal bronchitis present on admission acute. Cultures growing diphtheroids. Will discontinue levofloxacin and start azithromycin. Current visit: No Status: Acute (2) COPD (chronic obstructive pulmonary disease): Problem details: COPD exacerbation, present on admission acute Will continue steroids nebulizer and breathing treatments Qualifiers: COPD type: unspecified COPD Chronic bronchitis type: Emphysema type: Qualified Code(s): J44.9 - Chronic obstructive pulmonary disease, unspecified Current visit: No Status: Acute (3) Sore throat: Problem details: Will start prophylactic nystatin given her steroid use and long-term COPD. Current visit: Yes Status: Acute (4) Hypertension: Problem details: Hypertension, chronic, present on admission. Will continue usual outpatient regimen. Current visit: Yes Status: Acute (5) Hypothyroidism: Problem details: Hypothyroidism. Chronic. Present on admission. Continue her usual thyroid medication. Current visit: Yes Status: Acute Quality VTE Deep Vein Thrombosis/Pulmonary Embolism Present on Admission: No
--- NOTE | 2018-03-30 14:40 | CM.DPC ---
DCP/continued: Reviewed chart. Patient remains hospitalized day#3. Therapy notes reviewed and plan continues to be for patient to return home when medically stable. P: CM team to follow closely if needs were to arise. JIL Reyes
--- NOTE | 2018-03-30 16:23 | PC.NURSE ---
Day Shift-RN coordinator spoke with Dr. Cornell's office where pt goes as an OP for tracheostomy care. They are aware that pt is in hospital and will not attend her 04/01 1099 appointment. Plan for dressing change as adaptic, foam, tegaderm. Pt's dressing around trach stoma removed around 1430, area cleansed with NS, pt stated was tender. Chronic wound to left side stoma slightly red, non draining, moist. Wound to right side stoma larger and the same condition. Adaptic gauze placed to 2 small wound sites, covered with foam and cut to size around trach cuff per RT suggestion. Covered with tegaderm. Pt assisted in tegaderm application.
[2018-03-30] MEDS: LORazepam 2 MG/ML SYRINGE 1 MG IV ×2 (17:05→22:10)
[2018-03-30] MEDS: NYSTATIN SUSP 500,000 UNIT/5 ML UDC 500000 UNIT PO ×2 (17:05→22:10)
[2018-03-30] MEDS: SENNOSIDES 8.6 MG TABLET 17.2 MG PO (22:10)
[2018-03-31] VITALS (10 sets, daily range): BP systolic 140–166; BP diastolic 78–102; PULSE 73–86; RESP 16–86; TEMP 36.1–36.7; O2SAT 94–98
--- NOTE | 2018-03-31 01:15 | PC.NURSE ---
security shift supervisor 2330: Assumed care of pt with safe hand off. Safety checks done. 0045: Pt on 8 L venti-mask on trach O2 sats 95%. Pt denies pain at this time. Pt very sleepy and allowed rest.
[2018-03-31] MEDS: methylPREDNISolone 125 MG/2 ML VIAL 80 MG IV ×3 (02:18→18:34)
--- NOTE | 2018-03-31 08:07 | PC.NURSE ---
Wound Ostomy Nurse Note Woke Nai up. She did not have her trach humidifier on. I removed her dressing which was petroleum guaze, foam and tagaderm. I cleaned with wound with normal saline and dried. This is a partial thickness wound. It measures 4.0 x .5 x 0.1 cm. There was a scant amount of serosanguenous drainage. The wound bed has some yellow fibrin. The danish-wound skin is intact. After cleaning the wound with normal saline, pat dry then did the crusting technique and a small piece of an joseph ring just on the wound were the trach is then placed a hydrocolloid. I would recommend changing this dressing every 4-5 days unless it loses is seal or drains beyond the border of the hydrocolloid. I will return tomorrow to assess the integrity of the dressing. After I did the dressing Nai took out her trach, she used normal saline and replaced the trach.
[2018-03-31] MEDS: AZITHROMYCIN 250 MG TABLET 500 MG PO (09:34)
[2018-03-31] MEDS: LEVOTHYROXINE 88 MCG TABLET PO (09:34)
[2018-03-31] MEDS: LORATADINE 10 MG TABLET PO (09:36)
[2018-03-31] MEDS: LISINOPRIL 10 MG TABLET PO (09:36)
[2018-03-31] MEDS: NYSTATIN SUSP 500,000 UNIT/5 ML UDC 500000 UNIT PO ×3 (09:36→22:38)
[2018-03-31] MEDS: CITALOPRAM 20 MG TABLET 40 MG PO (09:36)
[2018-03-31] MEDS: ENOXAPARIN 40 MG/0.4 ML SYRINGE SUBCUT (09:36)
--- NOTE | 2018-03-31 11:41 | PT.IPTN ---
Current Diagnoses Hypothyroidism, unspecified (03/27/18) Other chronic pain (03/27/18) Essential (primary) hypertension (03/27/18) Acute pharyngitis, unspecified (03/27/18) Bronchitis, not specified as acute or chronic (03/27/18) Chronic obstructive pulmonary disease with (acute) exacerbation (03/27/18) Chronic obstructive pulmonary disease, unspecified (03/27/18) Physical Therapy Treatment Note M2 PT-IP Current Condition Start: 03/29/18 09:58 Freq: NEEDED Status: Active Protocol: Document 03/29/18 15:45 HH (Rec: 03/29/18 18:42 HH [id number]) Physical Therapy Current Condition Current Condition Evaluation Date 03/29/18 Treatment Diagnosis Acute COPD exacerbation, difficulty in walking, generalized muscle weakness Onset Date 03/27/18 Weight Bearing Status Weight Bearing Status Weight Bear as Tolerated M3 PT-IP Subjective Start: 03/29/18 09:58 Freq: NEEDED Status: Active Protocol: Document 03/31/18 11:32 SA (Rec: 03/31/18 11:41 SA [email or web address]) Subjective Physical Therapy Visit Type Type Treatment Note Visit Start Time 11:00 Visit Stop Time 11:30 Total Visit Minutes 30 Number of LICENSED MARINE ENGINEER Visits 1 Physical Therapy Visit Comments Patient Comments PT agreeable to PT, communicates with pen and notepad. Patient Goals To return home with CG assistance To return home and cont baby sit my friend's cat Therapy Pain Assessment Pain When Pain Assessed During Mobility Pain Present Pain Present Pain Reported Location Left Knee Intensity 3 Scale Used Royal-Zaidi (Faces) Description Chronic With Movement M4 PT-IP Mobility and Gait Start: 03/29/18 09:58 Freq: NEEDED Status: Active Protocol: Document 03/31/18 11:32 SA (Rec: 03/31/18 11:41 SA [id number]) PT-Bed Mobility Assessment Rolling Type of Rolling Roll to Right Level of Assist Standby Assistance Supine to Sit Supine to Sit Standby Assistance Scooting Scooting to Edge of Bed Independent Scooting Up and Down in Bed Independent PT-Transfer Assessment Sit to and From Stand Sit to and from Stand Standby Assistance Use of Upper Extremities Equipment Transfer Assistive Device Bed Rail Straight Cane Orthotic/Prosthetic Devices or Brace: No Transfers Transfer Destination Bed Toilet Transfer Technique Stand Step Pivot Transfer Ability Level of Assist Standby Assistance Contact Guard Assistance Comments Mobility Comments Pt ambulated bed<>bathroom with stand pivot txs on/off toilet with SBA and use of SPC . Pt IND with hygiene and clothing mngt. Gait Assessment Gait Gait Assistance Required: Standby Assistance Contact Guard Assist Distance (Feet) 35 Able to Maintain Weight Bearing Status Yes During Gait Assistive Devices Assistive Device Gait Belt Straight Cane Orthotic/Prosthetic Devices or Brace: No Gait Deviations General Gait Pattern Antalgic Decreased Stride Length Decreased Feet Clearance Factors Limiting Gait Function Factors Limiting Gait Function Decreased Activity Tolerance Decreased Strength Limited Range of Motion Pain Comments Gait Comments Ambulation in room/hallway with SPC and CGA. Pt with c/o L knee pain and feeling like it may buckle or remain locked. Limits gait distance. Pt used SPC safely. Stair Climbing Assessment Comments Stair Climbing Comments did not attempt PT-Balance Assessment Sitting Balance and Reactions Static Sitting Balance Ability Normal Dynamic Sitting Balance Ability Normal M5 PT-IP Objective Assessments Start: 03/29/18 09:58 Freq: NEEDED Status: Active Protocol: Document 03/29/18 15:45 (Rec: 03/29/18 18:42 [id number]) Orientation Orientation/Cognition Level of Alertness Alert Orientation Name Age Birthday Month Date Year Day of Week Place Situation Safety Awareness Understands Safety Issues Comments communicate via writing Gross Range of Motion Upper Extremity ROM Assessment Within Functional Limits Lower Extremity ROM Assessment Within Functional Limits Strength Upper Extremity Strength Assessment Within Functional Limits Lower Extremity Strength Assessment Left Impaired Comments Strength Comments 3+/5 of LLE MMT grossly Coordination Assessment Gross Coordination Gross Coordination WNL Sensation Assessment Sensation Gross Sensation WNL Muscle Tone Muscle Tone WNL Yes M6 PT-IP Treatment Start: 03/29/18 09:58 Freq: NEEDED Status: Active Protocol: Document 03/31/18 11:32 SA (Rec: 03/31/18 11:41 SA [email or web address]) Physical Therapy Treatment Exercises Exercises Ankle Pumps Quad Sets Heel Slides Education Education Provided Safety M7 PT-IP Assessment and Plan Start: 03/29/18 09:58 Freq: NEEDED Status: Active Protocol: Document 03/31/18 11:32 SA (Rec: 03/31/18 11:41 SA [email or web address]) PT Summary Assessment and Plan Summary Assessment Summary Pt with SBA-CGA with gait and mobility. Pt uses SPC safely with L knee pain and instability her most limiting factor with functional mobility. Pt inquires about OP PT to address this and I let her know she needs a Physician referral for PT for her knee. Frequency of Treatment Frequency Of Treatment Once a Day Recommendations To Nursing Amount of Assist Needed Standby Assistance 1 Person Assist Discharge Recommendations PT Discharge Recommendations Home with Assistance
--- NOTE | 2018-03-31 11:49 | PM.PN.1 ---
Subjective Date Patient Seen: 03/31/18 Interval history: Nai Zeng is a 57-year-old female with chronic trach, tracheobronchitis, COPD exacerbation who is making slow but steady progress. Id patient had less secretions last evening. However she does continue to report persistent wheezing and cough which seems to be worse at night. Overall despite this she feels a little bit better. She also complains of mild pain. She was started on nystatin swish and spit yesterday with minimal improvement. Exam Vital Signs (past 8 hours): - 03/31/18 05:49 03/31/18 07:41 Temperature 98.0 F 98 F Pulse Rate 76 74 Respiratory Rate 18 16 Blood Pressure 163/88 H 164/102 H Pulse Oximetry 95 95 Fraction of Inspired Oxygen 0.28 Oxygen Delivery Method Venturi Mask Oxygen Flow Rate 0 Narrative Exam Narrative: Ill appearing female in No obvious distress Oropharynx: Red mucosa no exudates noted Neck: Tracheostomy in place Lungs: Diffuse end-expiratory wheezing with occasional scattered rhonchi Cardiac exam: Regular rate and rhythm normal S1 and S2 Abdomen: Soft and nontender Extremities: Trace edema Objective Labs Result Diagrams: 03/30/18 05:55 03/30/18 05:55 Assessment & Plan (1) Acute bronchitis: Problem details: Will continue treatment for diphtheroids per her cultures from her trach Current visit: No Status: Acute (2) COPD exacerbation: Problem details: Will continue steroids nebulizer and oxygen Current visit: No Status: Acute (3) Tracheostomy infection: Current visit: No Status: Acute (4) Tracheobronchitis: Problem details: Tracheal bronchitis present on admission acute. Cultures growing diphtheroids. Will discontinue levofloxacin and start azithromycin. Current visit: No Status: Acute (5) Chronic pain: Problem details: Patient has chronic pain, with opioid dependence. Will continue her usual pain regimen. Current visit: No Status: Acute (6) Sore throat: Problem details: Will start prophylactic nystatin given her steroid use and long-term COPD. Will continue see if any improvement will occur Current visit: Yes Status: Acute (7) Hypertension: Problem details: Hypertension, chronic, present on admission. Will continue usual outpatient regimen. Current visit: Yes Status: Acute (8) Hypothyroidism: Problem details: Hypothyroidism. Chronic. Present on admission. Continue her usual thyroid medication. Current visit: Yes Status: Acute Quality VTE Deep Vein Thrombosis/Pulmonary Embolism Present on Admission: No
--- NOTE | 2018-03-31 11:59 | CM.DPC ---
[employer] is Kimmy Cruz [phone]
--- NOTE | 2018-03-31 12:59 | CM.DPC ---
DCP/continued: Reviewed chart. Patient currently LOS day#4. Patient has trach at baseline. Patient seen by therapy and current recommendation is home when stable. HASSOCK MAKER asked YULIA/Dee to call [facility] re: assigned CM and fax h&p. Per previous notes it appears patient resides in [place] with significant other and has temporary Caregivers 3x per week? CM team to attempt to obtain clarification and continue to follow closely for d/c planning needs. Unclear if patient will need HH for wound care? P: Pending. Anticipate home when medically stable. Will need to clarify caregiver support and determine if HH needed prior to discharge. JIL Reyes
[2018-03-31] MEDS: MORPHINE 2 MG/ML INJ IV ×2 (13:30→18:34)
--- NOTE | 2018-03-31 14:30 | DIET.PN ---
Nutrition consult per MNA of 8 Interviewed pt who uses writing to communicate as she is unable to talk. Reports eating 3 meals daily, some snacks. She does cook. Diet included foods from all food group, though did not have time to list specifics - eats dairy, meats, grains, veg and fruit. Reports tongue is sore, burning. Inspection of tongue shows very light pink tissue; half tongue is very wrinkled/fissured (question r/t past surgery?) and other half is very smooth. Is endentulous, has not dentures but states she has no problem eating. Home supplements: Vit D, C, iron and MVI Dx: respiratory distress, neck wound- chronic Hx: traecheotomy r/t laryngeal cancer, COPD w/frequent exacerbations Ht 168cm Wt: 105kg UBW: 95kg (210#) BMI 37 Wt change: Pt uncertain, but looking at past med records appears wt increased. PO Intake: 100% meals here Labs: Hgb 12.6 nl Hct 37.8 nl MCV 90.6 nl MCH 30.2 nl Assessment: Pt does not appear to have PCM per wt increase, morbidly obese and eating well, though reported poor PO intake TAKE DOWN SORTER - uncertain of amount of time. The symptom of burning tongue may suggest Bvit complex deficiencies. Breif review of usual diet do not suggest diet is deficient. Very light pink tissues suggestive of iron deficiency anemia. Some of pt's med interact with iron absorption and are to be taken separately: levothyroxine, lisinopril and MOM (which also affects absorbance of folate). Hgb/Hct, MCV/MCH levels do not suggest deficiencies or nutritional anemia Plan: Will monitor to assess trend
[2018-03-31] MEDS: ALBUTEROL/IPRATROPIUM 3 ML AMPUL INH ×2 (16:29→22:52)
--- NOTE | 2018-03-31 21:52 | PC.NURSE ---
Assumed care of Pt, reports some broncho spasms and requesting pain control this shift. Humidified trach collar [address] Reports plans to d/c in am. Using light for needs. Exp wheeze noted, increased productive cough. Afebrile.
[2018-03-31] MEDS: SENNOSIDES 8.6 MG TABLET 17.2 MG PO (22:38)
[2018-03-31] MEDS: LORazepam 2 MG/ML SYRINGE 1 MG IV (22:55)
[2018-04-01] VITALS (8 sets, daily range): BP systolic 131–157; BP diastolic 71–98; PULSE 76–86; RESP 16–18; TEMP 36.6–37.1; O2SAT 91–98
[2018-04-01] MEDS: methylPREDNISolone 125 MG/2 ML VIAL 80 MG IV ×2 (02:00→10:04)
[2018-04-01] MEDS: LEVOTHYROXINE 88 MCG TABLET PO (06:30)
[2018-04-01] MEDS: MORPHINE 2 MG/ML INJ IV ×2 (06:40→18:04)
--- NOTE | 2018-04-01 08:59 | PC.NURSE ---
Wound Ostomy Nurse Note Nai will be discharged today. I woke her up to review dressing change instructions. I showed her how to do her dressing, using her hand because I did not want to remove her dressing I placed yesterday. I also wrote out step by step dressing instructions and made a copy for her chart. I have dressing supplies ready for her to take home. She had an appointment with Dr. Cornell scheduled for today at 11:00 which was made before her hospitalization. I called Dr. Cornell's office and they are aware she is in the hospital and will be discharged today. They cancelled the appointment for today and have rescheduled the appointment for April 05 at 10:45. Nia and her nurse are aware of the dressing instructions and follow up with Dr. Cornell.
[2018-04-01] MEDS: AZITHROMYCIN 250 MG TABLET 500 MG PO (10:02)
[2018-04-01] MEDS: CITALOPRAM 20 MG TABLET 40 MG PO (10:03)
[2018-04-01] MEDS: ENOXAPARIN 40 MG/0.4 ML SYRINGE SUBCUT (10:03)
[2018-04-01] MEDS: NYSTATIN SUSP 500,000 UNIT/5 ML UDC 500000 UNIT PO (10:04)
[2018-04-01] MEDS: LISINOPRIL 10 MG TABLET PO (10:04)
[2018-04-01] MEDS: LORATADINE 10 MG TABLET PO (10:04)
--- NOTE | 2018-04-01 10:46 | P.DS_ITS ---
History of Present Illness Date Patient Seen: 04/01/18 Chief complaint: Respiratory distress Narrative: The patient is a 57-year-old female who presented to the ED with respiratory distress. Patient is noted to have frequent COPD exacerbations. At present time reports a 5 day history of cough with worsening purulence (yellow/green/brown). Temperature at home 99.2. Associated symptoms include subjective chills, headache, and neck discomfort. Denies chest pain, palpitations, dizziness, lightheadedness, abdominal pain, GI distress, dysuria/change in micturition, and signs of blood loss. Recently boyfriend was ill with flu-like symptoms. No specific exacerbating or remitting factors noted Discharge Providers Date of admission: 03/27/18 15:57 Primary care physician: Eusebio Hammer MD Consults: 03/27/18 17:50 Consult to Dietitian, Adult Routine Comment: Reason For Exam: assessed at risk 03/27/18 17:59 Consult to Respiratory Therapy Evaluate & Treat Comment: Physician Instructions: Evaluate and treat 03/29/18 09:57 Consult to Physical Therapy Evaluate & Treat Comment: Physician Instructions: Evaluate and Treat 03/29/18 14:39 Consult to Wound Care Routine Comment: Consulting Provider: [facility] Discharge provider: Kimym Harrison MD Discharge Date: 04/01/18 Summary Discharge Diagnosis: Acute tracheobronchitis, present on admission, secondary to coronary bacterium diptheroids Chronic tracheostomy placement, present on admission Chronic respiratory failure, present on admission COPD exacerbation, present on admission Probable oral thrush, present on admission Hypothyroidism, chronic Hospital Course: Patient is a 57-year-old female, with a chronic trach, chronic COPD, recurrent infections who presented to the hospital with increasing respiratory distress. The patient was admitted to the hospital. That she was placed empirically on antibiotics for probable pneumonia. The patient had cultures that grew from her trach that were positive for diphtheroids. The p atient's antibiotics were adjusted to azithromycin. She continued on steroids nebulizers and oxygen. She continued to have significant cough, and wheezing. She also complained of mouth pain. She was given oral nystatin swish and spit with improvement of her symptoms. Slowly and gradually her breathing and wheezing improved. Her cough improved. Patient felt clinically better and was deemed appropriate for discharge home. Status at Discharge Functional status at discharge: uses cane/walker Overall status at discharge: patient is back to baseline Time Spent with Patient Less than 30 minutes Exam Vital Signs (past 8 hours): - 04/01/18 04:44 04/01/18 05:43 04/01/18 07:00 Temperature 98.3 F Pulse Rate 86 Respiratory Rate 16 Blood Pressure 157/98 H Pulse Oximetry 94 93 98 04/01/18 08:00 Temperature 98 F Pulse Rate 82 Respiratory Rate 18 Blood Pressure 138/71 Pulse Oximetry 98 Fraction of Inspired Oxygen 28 Oxygen Delivery Method Venturi Mask Oxygen Flow Rate 8 Narrative Exam Narrative: Pleasant female resting comfortably who appears much better today. Neck: Trach site clean and dry. No exudates noted. Surgical scars on the neck noted. Lungs: Decreased breath sounds with prolonged end-expiratory breath sounds. No walker caught or wheezing today Cardiac exam: Regular rate rhythm normal S1 and S2 Abdomen: Soft nontender nondistended Extremities: No edema Objective Labs Result Diagrams: 03/30/18 05:55 03/30/18 05:55 Discharge Plan Discharge Plan Patient Disposition: Home Discharge Med Rec/Prescriptions Prescriptions: Continued albuterol sulfate 2.5 MG/3 ML solution for nebulization 1 dose Inhalation QIDP PRN (Reason: Shortness Of Breath) Qty: 180 RF: 0 docusate sodium 100 MG capsule 100 mg PO BID Qty: 0 RF: 0 ferrous gluconate 324 MG tablet 324 mg PO DAILY Qty: 0 RF: 0 omeprazole 20 MG capsule,delayed release(DR/EC) 20 mg PO DAILY Qty: 0 RF: 0 acetaminophen 325 MG tablet 650 mg PO Q6HP PRN (Reason: Pain, Mild) Qty: 0 RF: 0 amitriptyline 25 MG tablet 25 mg PO BEDTIME Qty: 0 RF: 0 ascorbic acid (vitamin C) 500 MG tablet 500 mg PO DAILY Qty: 0 RF: 0 fexofenadine 180 MG tablet 180 mg PO DAILY Qty: 0 RF: 0 nystatin 100,000 UNIT/1 ML suspension 1 dose PO DIRECTED Qty: 0 RF: 0 sodium chloride 0.9 % 10 ML solution 1 vial QID PRN (Reason: irrigate tracheostomy) Qty: 0 RF: 0 citalopram 40 mg tablet 40 mg PO DAILY RF: 0 lisinopril 10 mg tablet 10 mg PO DAILY RF: 0 tramadol 50 MG tablet 50 mg PO Q6HP PRN (Reason: Pain, Moderate) RF: 0 estradiol 1 mg tablet 1 mg PO DAILY RF: 0 levothyroxine 88 mcg tablet 1 tab PO DAILY RF: 0 prednisone 20 mg tablet 10 mg PO BID Qty: 10 RF: 0 Discontinued doxycycline hyclate 100 mg capsule 100 mg PO BID Qty: 20 RF: 0 levofloxacin [Levaquin] 750 mg tablet 750 mg PO DAILY Qty: 7 RF: 0 No Action tramadol 50 mg tablet 50 mg PO Q6H PRN (Reason: pain) Qty: 10 RF: 0 Follow up/Referrals: Eusebio Hammer MD [Primary Care Provider] - Provider Discharge Instructions Diet: Low-sodium and Low-cholesterol Activity: S tolerated Oxygen: Patient is on a trach and will continue oxygen per her tracheostomy Skin/Wound/Dressing Care Skin care: Wound care per the wound care team Report to your healthcare provider any signs of infection, such as:: chills, fever Dressing: Dressing changes per wound care Visit Report/Discharge Packet Instructions: Azithromycin, Azithromycin (By mouth) Visit Report Forms: Stroke Signs & Symptoms Discharge Data Primary Care Provider: Eusebio Hammer Attending Provider: Brian August Admit Date/Time: 03/27/18 15:57 Discharges patient from system. Discharge Date/Time: 04/01/18 18:23 Quality VTE Deep Vein Thrombosis/Pulmonary Embolism Present on Admission: No
--- NOTE | 2018-04-01 11:35 | PT.IPTN ---
Current Diagnoses Hypothyroidism, unspecified (03/27/18) Other chronic pain (03/27/18) Essential (primary) hypertension (03/27/18) Acute pharyngitis, unspecified (03/27/18) Acute bronchitis, unspecified (03/27/18) Bronchitis, not specified as acute or chronic (03/27/18) Chronic obstructive pulmonary disease with (acute) exacerbation (03/27/18) Chronic obstructive pulmonary disease, unspecified (03/27/18) Infection of tracheostomy stoma (03/27/18) Physical Therapy Treatment Note M2 PT-IP Current Condition Start: 03/29/18 09:58 Freq: NEEDED Status: Active Protocol: Document 03/29/18 15:45 HH (Rec: 03/29/18 18:42 HH [id number]) Physical Therapy Current Condition Current Condition Evaluation Date 03/29/18 Treatment Diagnosis Acute COPD exacerbation, difficulty in walking, generalized muscle weakness Onset Date 03/27/18 Weight Bearing Status Weight Bearing Status Weight Bear as Tolerated M3 PT-IP Subjective Start: 03/29/18 09:58 Freq: NEEDED Status: Active Protocol: Document 04/01/18 11:17 SA (Rec: 04/01/18 11:35 SA [id number]) Subjective Physical Therapy Visit Type Type Treatment Note Visit Start Time 10:53 Visit Stop Time 11:16 Total Visit Minutes 23 Number of KING MAKER Visits 2 Physical Therapy Visit Comments Patient Comments Pt in bed and agreeable to PT. Patient Goals To return home, hopes to have OP PT for her L knee as it is painful and limits her ambulation tolerance. Therapy Pain Assessment Pain When Pain Assessed During Mobility Pain Present Pain Present Pain Reported Location Left Knee Intensity 3 Scale Used Numeric (1 - 10) Description Chronic With Movement Pain Management Techniques Apply Cold Modification of Treatment M4 PT-IP Mobility and Gait Start: 03/29/18 09:58 Freq: NEEDED Status: Active Protocol: Document 04/01/18 11:17 SA (Rec: 04/01/18 11:35 SA [id number]) PT-Bed Mobility Assessment Rolling Type of Rolling Roll to Right Level of Assist Standby Assistance Supine to Sit Supine to Sit Standby Assistance Sit to Supine Sit to Supine Standby Assistance Scooting Scooting to Edge of Bed Independent Scooting Up and Down in Bed Independent PT-Transfer Assessment Sit to and From Stand Sit to and from Stand Standby Assistance Use of Upper Extremities Equipment Transfer Assistive Device Bed Rail Straight Cane Orthotic/Prosthetic Devices or Brace: No Transfers Transfer Destination Chair Toilet Transfer Technique Stand Step Pivot Transfer Ability Level of Assist Standby Assistance Contact Guard Assistance Comments Mobility Comments Pt with CGA with standing and WBing tasks as pt limits WBing on L knee as it is painful. Pt prefers to use SPC even though FWW would provide more support. Gait Assessment Gait Gait Assistance Required: Standby Assistance Contact Guard Assist Distance (Feet) 40 Able to Maintain Weight Bearing Status Yes During Gait Assistive Devices Assistive Device Gait Belt Straight Cane Orthotic/Prosthetic Devices or Brace: No Gait Deviations General Gait Pattern Antalgic Decreased Stride Length Decreased Feet Clearance Factors Limiting Gait Function Factors Limiting Gait Function Decreased Activity Tolerance Decreased Strength Limited Range of Motion Pain Comments Gait Comments Pt declines use of FWW stating that she feels more unsteady with that vs SPC, gait training in dimas with limited LLE WBing and c/o knee locking out. Stair Climbing Assessment Comments Stair Climbing Comments did not attempt PT-Balance Assessment Sitting Balance and Reactions Static Sitting Balance Ability Normal Dynamic Sitting Balance Ability Normal Comments Other Balance Tests/Deviations/Treatment Standing static/dynamic : balance training with gradual increase in LLE WBing. M5 PT-IP Objective Assessments Start: 03/29/18 09:58 Freq: NEEDED Status: Active Protocol: Document 03/29/18 15:45 HH (Rec: 03/29/18 18:42 HH [id number]) Orientation Orientation/Cognition Level of Alertness Alert Orientation Name Age Birthday Month Date Year Day of Week Place Situation Safety Awareness Understands Safety Issues Comments communicate via writing Gross Range of Motion Upper Extremity ROM Assessment Within Functional Limits Lower Extremity ROM Assessment Within Functional Limits Strength Upper Extremity Strength Assessment Within Functional Limits Lower Extremity Strength Assessment Left Impaired Comments Strength Comments 3+/5 of LLE MMT grossly Coordination Assessment Gross Coordination Gross Coordination WNL Sensation Assessment Sensation Gross Sensation WNL Muscle Tone Muscle Tone WNL Yes M6 PT-IP Treatment Start: 03/29/18 09:58 Freq: NEEDED Status: Active Protocol: Document 04/01/18 11:17 SA (Rec: 04/01/18 11:35 SA [id number]) Physical Therapy Treatment Exercises Exercises Ankle Pumps Quad Sets Heel Slides Education Education Provided Safety M7 PT-IP Assessment and Plan Start: 03/29/18 09:58 Freq: NEEDED Status: Active Protocol: Document 04/01/18 11:17 SA (Rec: 04/01/18 11:35 SA [id number]) PT Summary Assessment and Plan Potential Rehabilitation Potential Good Summary Assessment Summary Follow up with MD to see if pt can have OP PT orders upon d/ c to address L knee pain and instability that limits ambulation ability. Pt needs cues for safety with gait with SPC as she is unsteady at times. Frequency of Treatment Frequency Of Treatment Once a Day Recommendations To Nursing Amount of Assist Needed Standby Assistance 1 Person Assist Discharge Recommendations PT Discharge Recommendations Home with Assistance Outpatient PT
--- NOTE | 2018-04-01 15:10 | CM.DPC ---
DC Note: DC order in place. Met w/pt; Pt familiar to this COTTON BREEDER from prior visits. Pt uses pad of paper and pen to communicate, chronic trach. Pt nods yes that she is ready to DC home today and writes that her boyfriend will pick her up at 1630. Pt indicates no addtl. needs from this COTTON BREEDER. Requested that deputy administrator Christ fax DC summary to [facility]. JW
--- NOTE | 2018-04-01 18:04 | PC.NURSE ---
Azithromycin clarification... per this patient will be on Azithromycin po 250mg one per day for 3 days.
== END 2018-04-01 18:23 | disposition home or self-care (01) | DRG 140 ==
LOC: ED 15:38 → AC 03-28 04:42
PROVIDERS: Internal Medicine; Nurse Practitioner Gerontology; Admitting Provider Internal Medicine; Emergency Provider Emergency Medicine; Family Provider Internal Medicine; PCP Internal Medicine; Visit Provider Internal Medicine
DX: J44.1 Chronic obstructive pulmonary disease with (acute) exacerbation (principal); J95.02 Infection of tracheostomy stoma; J20.8 Acute bronchitis due to other specified organisms; J96.10 Chronic respiratory failure, unspecified whether with hypoxia or hypercapnia; B37.0 Candidal stomatitis; Z87.891 Personal history of nicotine dependence; E03.9 Hypothyroidism, unspecified; G89.29 Other chronic pain; F11.20 Opioid dependence, uncomplicated; T40.2X5A Adverse effect of other opioids, initial encounter; F43.0 Acute stress reaction; S16.1XXA Strain of muscle, fascia and tendon at neck level, initial encounter; I10 Essential (primary) hypertension
CPT/HCPCS: 36415; 36591; 70491; 71045; 80048; 80053; 81001; 83605; 83690; 84145; 85025; 85610; 85730; 87040; 87070; 87205; 87400; 93005; 94640; 94760; 94799; 96361; 96365; 96375; 96376; 97116; 97162; 97530; 99283; 99285; J1170; J1650; J1956; J2060; J2270; J2930; J7613; Q9967

== ENCOUNTER 2018-04-25 15:48 | Emergency (ER) | payer OTHER, MEDICAID, SELFPAY ==
[2018-03-27 17:37] VITALS: BMI 35.9
[2018-04-25 15:59] VITALS: BP 173/100; PULSE 88; RESP 28; TEMP 36.7; O2SAT 94; BMI 34.7
[2018-04-25 16:05] VITALS: BP 173/100; PULSE 88; RESP 28; TEMP 36.7; O2SAT 94; BMI 34.7
[2018-04-25] MEDS: ALBUTEROL 2.5 MG/3 ML NEB (ADULT) INH ×2 (16:07→17:29)
--- NOTE | 2018-04-25 16:09 | PC.NURSE ---
PT with coarse upper airway but lungs are clear
--- NOTE | 2018-04-25 16:15 | PC.NURSE ---
[facility] at bedside for treatment of pt, suctioning
[2018-04-25 16:35] VITALS: RESP 22; O2SAT 96
[2018-04-25 16:37] VITALS: PULSE 85; RESP 24
--- NOTE | 2018-04-25 16:46 | PC.NURSE ---
Pt use of call light. Requests that someone help her change her trach device. Aristides from [facility] is called and he states he is not comfortable doing that and that Dr Granado can do it
--- NOTE | 2018-04-25 16:52 | RT ---
requested by nursing staff to perform deep trachael suctioning. Pt suctioned (seemed to have mucus plug), greenish brown, sputum sample ordered by Nurse Maria A Thomas and sent to lab.
--- NOTE | 2018-04-25 16:57 | ED.URI ---
HPI - URI/Sore Throat General Chief Complaint: Upper Respiratory Symptoms Stated Complaint: hard time breathing Time Seen by Provider: 04/25/18 16:20 Source: patient Mode of arrival: ambulatory Limitations: no limitations History of Present Illness HPI Narrative: patient a 57-year-old female well known to myself in this facility presenting with of pain at trach site. she also states that she is short of breath. She was actually recently discharged 04/01/2018. At that time she had leukocytosis of 17 and significant increase in sputum production. Today she says that she has 3 day history of coughing up green bloody sputum and feels like she can't get anything out. She is having pain also at her today trach site. She has not had any fever or chills. MD Complaint: cough Relieving factors: nothing Exacerbating factors: nothing Related Data Home Medications Medication Instructions Recorded Confirmed albuterol sulfate 1 dose INHALATION QIDP PRN #180 01/25/16 03/29/18 docusate sodium 100 mg PO BID #0 01/25/16 01/25/18 ferrous gluconate 324 mg PO DAILY #0 08/28/16 01/25/18 omeprazole 20 mg PO DAILY #0 08/28/16 01/25/18 acetaminophen 650 mg PO Q6HP PRN #0 10/29/16 01/25/18 amitriptyline 25 mg PO BEDTIME #0 01/22/17 01/25/18 ascorbic acid (vitamin C) 500 mg PO DAILY #0 06/10/17 01/25/18 fexofenadine 180 mg PO DAILY #0 06/10/17 03/29/18 nystatin 1 dose PO DIRECTED #0 06/10/17 01/25/18 sodium chloride 0.9 % 1 vial QID PRN #0 06/10/17 03/29/18 citalopram 40 mg PO DAILY 09/21/17 03/29/18 lisinopril 10 mg PO DAILY 09/21/17 03/29/18 tramadol 50 mg PO Q6HP PRN 09/21/17 01/25/18 levothyroxine 1 tab PO DAILY 01/04/18 03/29/18 estradiol 1 mg PO DAILY 01/25/18 03/29/18 Previous Rx's Medication Instructions Recorded prednisone 10 mg PO BID #10 tab 01/06/18 tramadol 50 mg PO Q6H PRN #10 tab 04/25/18 Allergies Allergy/AdvReac Type Severity Reaction Status Date / Time hydrocodone Allergy Intermediate RASH/HIVES Verified 04/25/18 15:59 Penicillins Allergy Intermediate RASH/HIVES Verified 04/25/18 15:59 metronidazole Allergy Mild RASH Verified 04/25/18 15:59 diphenhydramine Allergy Unknown Verified 04/25/18 15:59 [DIPHENHYDRAMINE] ibuprofen Allergy Unknown Verified 04/25/18 15:59 oxycodone [OXYCODONE] Allergy Unknown Verified 04/25/18 15:59 venom-wasp Allergy Verified 04/25/18 15:59 ranitidine AdvReac Intermediate SOB/DIZZY Verified 04/25/18 15:59 sulfamethoxazole AdvReac Mild GI UPSET Verified 04/25/18 15:59 [From Bactrim] trimethoprim [From Bactrim] AdvReac Mild GI UPSET Verified 04/25/18 15:59 fentanyl [FENTANYL] AdvReac Unknown vomiting Verified 01/04/18 14:30 ANTACIDS AdvReac Unknown Uncoded 01/04/18 14:30 Review of Systems Review of Systems GENERAL: Denies chills, fatigue, malaise, fever, sweats, travel HEENT: Denies sinus pain, ear pain, sore throat, difficulty swallowing, neck pain RESPIRATORY: See HPI CARDIOVASCULAR: Denies chest pain, palpitations, orthopnea, edema GASTROINTESTINAL: Denies nausea, vomiting, abdominal pain, diarrhea, constipation, melena. : Denies dysuria, frequency, incontinence, hematuria, urinary retention, flank pain. MUSCULOSKELETAL: Denies weakness, joint pain, or bony pain SKIN: No rash, no erythema, no pruritus NEUROLOGIC: Denies weakness, dizziness, headache, numbness, change in speech, confusion PSYCHIATRIC: No concerning psychosocial issues. 12 point review of systems is negative except for those stated above and HPI [facility] Social History household members: significant other Smoking Status: Former smoker alcohol intake: former Exam Initial Vital Signs Initial Vital Signs: Vital Signs Temperature 98.1 F 04/25/18 15:59 Pulse Rate 88 04/25/18 15:59 Respiratory Rate 28 H 04/25/18 15:59 Blood Pressure 173/100 H 04/25/18 15:59 Pulse Oximetry 94 04/25/18 15:59 GENERAL: Alert chronically ill female no acute distress HEENT: Head atraumatic,EOMI, pupils reactive, CARDIOVASCULAR: Regular rate and rhythm without murmurs, rubs or gallops. RESPIRATORY: trach site intact no significant erythema or blood around the site. His a fresh sounds are clear bilaterally. She does have some coughing spells in the ED. ABDOMEN: Soft, nontender. Normoactive bowel sounds all 4 quadrants. No guarding or rebound. EXTREMITIES: Normal range of motion, no clubbing or edema. Neurovascularly intact NEUROLOGICAL: Alert and oriented x4.Normal gait and speech. SKIN: Warm, dry, no laceration, no petechiae, no rashes or lesions. Course Orders Ordered: ED Orders 04/25/18 16:02 Consult to Respiratory Therapy Evaluate & Treat 04/25/18 16:16 Consult to Respiratory Therapy Evaluate & Treat 04/25/18 16:30 Sputum Culture Stat 04/25/18 17:05 XR chest 1V Stat 04/25/18 17:15 Basic Metabolic Panel Stat Complete Blood Count AUTO DIFF Stat Discontinued Medications Albuterol (Ventolin) 2.5 mg INH NOW ONE Stop: 04/25/18 16:04 Last Admin: 04/25/18 16:07 Dose: 2.5 mg Albuterol (Ventolin) 2.5 mg INH NOW ONE Stop: 04/25/18 17:25 Last Admin: 04/25/18 17:29 Dose: 2.5 mg Tramadol HCl (Ultram) 100 mg PO NOW ONE Stop: 04/25/18 18:29 Last Admin: 04/25/18 18:31 Dose: 100 mg Vital Signs - 8 hr 04/25/18 15:59 04/25/18 16:05 04/25/18 16:35 Temperature 98.1 F 98.1 F Pulse Rate 88 88 Respiratory Rate 28 H 28 H 22 Blood Pressure 173/100 H 173/100 H Pulse Oximetry 94 94 96 04/25/18 16:37 04/25/18 17:30 04/25/18 18:40 Temperature Pulse Rate 85 80 82 Respiratory Rate 24 20 20 Blood Pressure 112/60 Pulse Oximetry 98 MDM - URI/Sore Throat Medical Records Attestation: I reviewed the patient's medical records. Lab Data Attestation: I reviewed the patient's lab results. Result diagrams: 04/25/18 17:15 04/25/18 17:15 Lab Results 04/25/18 04/25/18 Range/Units 17:15 17:15 WBC 5.8 (4.5-11.0) X10^3/uL RBC 4.17 (4.0-5.2) X10^6/uL Hgb 12.7 (12.0-16.0) g/dL Hct 38.2 (36-46) % MCV 91.7 (80-100) fL MCH 30.5 (26-34) PG MCHC 33.2 (30-36) % RDW 14.7 (11.6-14.8) % Plt Count 346 (150-400) X10^3/uL Neut % (Auto) 63.2 (50-75) % Lymph % (Auto) 15.0 L (25-40) % [place] % (Auto) 11.2 (3-14) % Eos % (Auto) 9.8 H (2-4) % Baso % (Auto) 0.8 (0-2) % Neut # (Auto) 3600 (2024-8409) /uL Lymph # (Auto) 900 L (7517-8106) /uL [place] # (Auto) 600 (0-900) /uL Eos # (Auto) 600 H (0-450) /uL Baso # (Auto) 0 (0-100) /uL Sodium 136 L (137-145) mmol/L Potassium 4.3 (3.4-5.1) mmol/L Chloride 101 (98-107) mmol/L Carbon Dioxide 27 (22-32) mmol/L BUN 17 (7-17) mg/dL Creatinine 0.50 L (0.52-1.04) mg/dL Estimated GFR > 60.0 (>60) mL/min BUN/Creatinine Ratio 34.0 H (6-22) Glucose 79 (70-100) mg/dL Calcium 8.9 (8.4-10.2) mg/dL Imaging Data Chest x-ray: Radiologist's impression: PROCEDURE: XR CHEST 1V INDICATIONS: cough short of breath TECHNIQUE: One view of the chest was acquired. COMPARISON: [facility], CR, XR CHEST 2V, 02/16/2018, 23:00. [facility], CR, XR CHEST 1V, 03/27/2018, 12:32. FINDINGS: Surgical changes and devices: Multiple surgical clips are redemonstrated within the neck soft tissues bilaterally. Lungs and pleura: Lungs are clear. Mild elevation of the right hemidiaphragm redemonstrated. No pleural effusions or pneumothorax. Mediastinum: Mediastinal contours appear normal. Heart size is normal. Bones and chest wall: No suspicious bony lesions. Overlying soft tissues appear unremarkable. IMPRESSION: 1. No acute cardiopulmonary disease. Dictated by: Atul Lechuga M.D. on 04/25/2018 at 18:37 MDM Narrative Medical decision making narrative: patient is a deep suction by Respiratory and trach is switched. As she is still having some pain and discomfort at the site. But overall does not appear septic or toxic. She has no leukocytosis of today. X-ray negative. She will be given tramadol to go home with. Discharge Plan Departure Patient Disposition: Home Clinical Impression: Mucus plugging of bronchi Discharge Date/Time: 04/25/18 18:41 Interventions: ED Discharge Assessment Last Done: 04/25/18 18:40 Instructions: Chronic Obstructive Pulmonary Disease Activity Restrictions/Additional Instructions: *You have been diagnosed with Mucous plug *What to do: follow-up with Dr. dodd in regards to her tracheostomy *Continue to take medications as directed tramadol 1 tablet every 6 hr only if needed for severe pain *Follow up with your primary care provider in 2-3 days *Return to ER if you should have increasing shortness of breath, pain, fever or any new, worsening or concerning symptoms Prescriptions: New tramadol 50 mg tablet 50 mg PO Q6H PRN (Reason: pain) Qty: 10 RF: 0 No Action albuterol sulfate 2.5 MG/3 ML solution for nebulization 1 dose Inhalation QIDP PRN (Reason: Shortness Of Breath) Qty: 180 RF: 0 docusate sodium 100 MG capsule 100 mg PO BID Qty: 0 RF: 0 ferrous gluconate 324 MG tablet 324 mg PO DAILY Qty: 0 RF: 0 omeprazole 20 MG capsule,delayed release(DR/EC) 20 mg PO DAILY Qty: 0 RF: 0 acetaminophen 325 MG tablet 650 mg PO Q6HP PRN (Reason: Pain, Mild) Qty: 0 RF: 0 amitriptyline 25 MG tablet 25 mg PO BEDTIME Qty: 0 RF: 0 ascorbic acid (vitamin C) 500 MG tablet 500 mg PO DAILY Qty: 0 RF: 0 fexofenadine 180 MG tablet 180 mg PO DAILY Qty: 0 RF: 0 nystatin 100,000 UNIT/1 ML suspension 1 dose PO DIRECTED Qty: 0 RF: 0 sodium chloride 0.9 % 10 ML solution 1 vial QID PRN (Reason: irrigate tracheostomy) Qty: 0 RF: 0 citalopram 40 mg tablet 40 mg PO DAILY RF: 0 lisinopril 10 mg tablet 10 mg PO DAILY RF: 0 tramadol 50 MG tablet 50 mg PO Q6HP PRN (Reason: Pain, Moderate) RF: 0 estradiol 1 mg tablet 1 mg PO DAILY RF: 0 levothyroxine 88 mcg tablet 1 tab PO DAILY RF: 0 prednisone 20 mg tablet 10 mg PO BID Qty: 10 RF: 0 Referrals: [facility] [Provider Group] Eusebio Hammer MD [Primary Care Provider] -
--- NOTE | 2018-04-25 17:05 | ED_ITS ---
HPI - URI/Sore Throat General Chief Complaint: Upper Respiratory Symptoms Stated Complaint: hard time breathing Time Seen by Provider: 04/25/18 16:20 Source: patient Mode of arrival: ambulatory Limitations: no limitations History of Present Illness HPI Narrative: patient a 57-year-old female well known to myself in this facility presenting with of pain at trach site. she also states that she is short of breath. She was actually recently discharged 04/01/2018. At that time she had leukocytosis of 17 and significant increase in sputum production. Today she says that she has 3 day history of coughing up green bloody sputum and feels like she can't get anything out. She is having pain also at her today [facility] site. She has not had any fever or chills. Complaint: cough Relieving factors: nothing Exacerbating factors: nothing Related Data Home Medications Medication Instructions Recorded Confirmed albuterol sulfate 1 dose INHALATION QIDP PRN #180 01/25/16 03/29/18 docusate sodium 100 mg PO BID #0 01/25/16 01/25/18 ferrous gluconate 324 mg PO DAILY #0 08/28/16 01/25/18 omeprazole 20 mg PO DAILY #0 08/28/16 01/25/18 acetaminophen 650 mg PO Q6HP PRN #0 10/29/16 01/25/18 amitriptyline 25 mg PO BEDTIME #0 01/22/17 01/25/18 ascorbic acid (vitamin C) 500 mg PO DAILY #0 06/10/17 01/25/18 fexofenadine 180 mg PO DAILY #0 06/10/17 03/29/18 nystatin 1 dose PO DIRECTED #0 06/10/17 01/25/18 sodium chloride 0.9 % 1 vial QID PRN #0 06/10/17 03/29/18 citalopram 40 mg PO DAILY 09/21/17 03/29/18 lisinopril 10 mg PO DAILY 09/21/17 03/29/18 tramadol 50 mg PO Q6HP PRN 09/21/17 01/25/18 levothyroxine 1 tab PO DAILY 01/04/18 03/29/18 estradiol 1 mg PO DAILY 01/25/18 03/29/18 Previous Rx's Medication Instructions Recorded prednisone 10 mg PO BID #10 tab 01/06/18 tramadol 50 mg PO Q6H PRN #10 tab 04/25/18 Allergies Allergy/AdvReac Type Severity Reaction Status Date / Time hydrocodone Allergy Intermediate RASH/HIVES Verified 04/25/18 15:59 Penicillins Allergy Intermediate RASH/HIVES Verified 04/25/18 15:59 metronidazole Allergy Mild RASH Verified 04/25/18 15:59 diphenhydramine Allergy Unknown Verified 04/25/18 15:59 [DIPHENHYDRAMINE] ibuprofen Allergy Unknown Verified 04/25/18 15:59 oxycodone [OXYCODONE] Allergy Unknown Verified 04/25/18 15:59 venom-wasp Allergy Verified 04/25/18 15:59 ranitidine AdvReac Intermediate SOB/DIZZY Verified 04/25/18 15:59 sulfamethoxazole AdvReac Mild GI UPSET Verified 04/25/18 15:59 [From Bactrim] trimethoprim [From Bactrim] AdvReac Mild GI UPSET Verified 04/25/18 15:59 fentanyl [FENTANYL] AdvReac Unknown vomiting Verified 01/04/18 14:30 ANTACIDS AdvReac Unknown Uncoded 01/04/18 14:30 Review of Systems Review of Systems GENERAL: Denies chills, fatigue, malaise, fever, sweats, travel HEENT: Denies sinus pain, ear pain, sore throat, difficulty swallowing, neck pain RESPIRATORY: See HPI CARDIOVASCULAR: Denies chest pain, palpitations, orthopnea, edema GASTROINTESTINAL: Denies nausea, vomiting, abdominal pain, diarrhea, constipation, melena. : Denies dysuria, frequency, incontinence, hematuria, urinary retention, flank pain. MUSCULOSKELETAL: Denies weakness, joint pain, or bony pain SKIN: No rash, no erythema, no pruritus NEUROLOGIC: Denies weakness, dizziness, headache, numbness, change in speech, confusion PSYCHIATRIC: No concerning psychosocial issues. 12 point review of systems is negative except for those stated above and HPI [facility] Social History household members: significant other Smoking Status: Former smoker alcohol intake: former Exam Initial Vital Signs Initial Vital Signs: Vital Signs Temperature 98.1 F 04/25/18 15:59 Pulse Rate 88 04/25/18 15:59 Respiratory Rate 28 H 04/25/18 15:59 Blood Pressure 173/100 H 04/25/18 15:59 Pulse Oximetry 94 04/25/18 15:59 GENERAL: Alert chronically ill female no acute distress HEENT: Head atraumatic,EOMI, pupils reactive, CARDIOVASCULAR: Regular rate and rhythm without murmurs, rubs or gallops. RESPIRATORY: trach site intact no significant erythema or blood around the site. His a fresh sounds are clear bilaterally. She does have some coughing spells in the ED. ABDOMEN: Soft, nontender. Normoactive bowel sounds all 4 quadrants. No guarding or rebound. EXTREMITIES: Normal range of motion, no clubbing or edema. Neurovascularly intact NEUROLOGICAL: Alert and oriented x4.Normal gait and speech. SKIN: Warm, dry, no laceration, no petechiae, no rashes or lesions. Course Orders Ordered: ED Orders 04/25/18 16:02 Consult to Respiratory Therapy Evaluate & Treat 04/25/18 16:16 Consult to Respiratory Therapy Evaluate & Treat 04/25/18 16:30 Sputum Culture Stat 04/25/18 17:05 XR chest 1V Stat 04/25/18 17:15 Basic Metabolic Panel Stat Complete Blood Count AUTO DIFF Stat Discontinued Medications Albuterol (Ventolin) 2.5 mg INH NOW ONE Stop: 04/25/18 16:04 Last Admin: 04/25/18 16:07 Dose: 2.5 mg Albuterol (Ventolin) 2.5 mg INH NOW ONE Stop: 04/25/18 17:25 Last Admin: 04/25/18 17:29 Dose: 2.5 mg Tramadol HCl (Ultram) 100 mg PO NOW ONE Stop: 04/25/18 18:29 Last Admin: 04/25/18 18:31 Dose: 100 mg Vital Signs - 8 hr 04/25/18 15:59 04/25/18 16:05 04/25/18 16:35 Temperature 98.1 F 98.1 F Pulse Rate 88 88 Respiratory Rate 28 H 28 H 22 Blood Pressure 173/100 H 173/100 H Pulse Oximetry 94 94 96 04/25/18 16:37 04/25/18 17:30 04/25/18 18:40 Temperature Pulse Rate 85 80 82 Respiratory Rate 24 20 20 Blood Pressure 112/60 Pulse Oximetry 98 MDM - URI/Sore Throat Medical Records Attestation: I reviewed the patient's medical records. Lab Data Attestation: I reviewed the patient's lab results. Result diagrams: 04/25/18 17:15 04/25/18 17:15 Lab Results 04/25/18 04/25/18 Range/Units 17:15 17:15 WBC 5.8 (4.5-11.0) X10^3/uL RBC 4.17 (4.0-5.2) X10^6/uL Hgb 12.7 (12.0-16.0) g/dL Hct 38.2 (36-46) % MCV 91.7 (80-100) fL MCH 30.5 (26-34) PG MCHC 33.2 (30-36) % RDW 14.7 (11.6-14.8) % Plt Count 346 (150-400) X10^3/uL Neut % (Auto) 63.2 (50-75) % Lymph % (Auto) 15.0 L (25-40) % [place] % (Auto) 11.2 (3-14) % Eos % (Auto) 9.8 H (2-4) % Baso % (Auto) 0.8 (0-2) % Neut # (Auto) 3600 (0003-7410) /uL Lymph # (Auto) 900 L (4717-3572) /uL [place] # (Auto) 600 (0-900) /uL Eos # (Auto) 600 H (0-450) /uL Baso # (Auto) 0 (0-100) /uL Sodium 136 L (137-145) mmol/L Potassium 4.3 (3.4-5.1) mmol/L Chloride 101 (98-107) mmol/L Carbon Dioxide 27 (22-32) mmol/L BUN 17 (7-17) mg/dL Creatinine 0.50 L (0.52-1.04) mg/dL Estimated GFR > 60.0 (>60) mL/min BUN/Creatinine Ratio 34.0 H (6-22) Glucose 79 (70-100) mg/dL Calcium 8.9 (8.4-10.2) mg/dL Imaging Data Chest x-ray: Radiologist's impression: PROCEDURE: XR CHEST 1V INDICATIONS: cough short of breath TECHNIQUE: One view of the chest was acquired. COMPARISON: [facility], CR, XR CHEST 2V, 02/16/2018, 23:00. [facility], CR, XR CHEST 1V, 03/27/2018, 12:32. FINDINGS: Surgical changes and devices: Multiple surgical clips are redemonstrated within the neck soft tissues bilaterally. Lungs and pleura: Lungs are clear. Mild elevation of the right hemidiaphragm redemonstrated. No pleural effusions or pneumothorax. Mediastinum: Mediastinal contours appear normal. Heart size is normal. Bones and chest wall: No suspicious bony lesions. Overlying soft tissues appear unremarkable. IMPRESSION: 1. No acute cardiopulmonary disease. Dictated by: Atul Lechuga M.D. on 04/25/2018 at 18:37 MDM Narrative Medical decision making narrative: patient is a deep suction by Respiratory and trach is switched. As she is still having some pain and discomfort at the site. But overall does not appear septic or toxic. She has no leukocytosis of today. X-ray negative. She will be given tramadol to go home with. Discharge Plan Departure Patient Disposition: Home Clinical Impression: Mucus plugging of bronchi Discharge Date/Time: 04/25/18 18:41 Interventions: ED Discharge Assessment Last Done: 04/25/18 18:40 Instructions: Chronic Obstructive Pulmonary Disease Activity Restrictions/Additional Instructions: *You have been diagnosed with Mucous plug *What to do: follow-up with Dr. dodd in regards to her tracheostomy *Continue to take medications as directed tramadol 1 tablet every 6 hr only if needed for severe pain *Follow up with your primary care provider in 2-3 days *Return to ER if you should have increasing shortness of breath, pain, fever or any new, worsening or concerning symptoms Prescriptions: New tramadol 50 mg tablet 50 mg PO Q6H PRN (Reason: pain) Qty: 10 RF: 0 No Action albuterol sulfate 2.5 MG/3 ML solution for nebulization 1 dose Inhalation QIDP PRN (Reason: Shortness Of Breath) Qty: 180 RF: 0 docusate sodium 100 MG capsule 100 mg PO BID Qty: 0 RF: 0 ferrous gluconate 324 MG tablet 324 mg PO DAILY Qty: 0 RF: 0 omeprazole 20 MG capsule,delayed release(DR/EC) 20 mg PO DAILY Qty: 0 RF: 0 acetaminophen 325 MG tablet 650 mg PO Q6HP PRN (Reason: Pain, Mild) Qty: 0 RF: 0 amitriptyline 25 MG tablet 25 mg PO BEDTIME Qty: 0 RF: 0 ascorbic acid (vitamin C) 500 MG tablet 500 mg PO DAILY Qty: 0 RF: 0 fexofenadine 180 MG tablet 180 mg PO DAILY Qty: 0 RF: 0 nystatin 100,000 UNIT/1 ML suspension 1 dose PO DIRECTED Qty: 0 RF: 0 sodium chloride 0.9 % 10 ML solution 1 vial QID PRN (Reason: irrigate tracheostomy) Qty: 0 RF: 0 citalopram 40 mg tablet 40 mg PO DAILY RF: 0 lisinopril 10 mg tablet 10 mg PO DAILY RF: 0 tramadol 50 MG tablet 50 mg PO Q6HP PRN (Reason: Pain, Moderate) RF: 0 estradiol 1 mg tablet 1 mg PO DAILY RF: 0 levothyroxine 88 mcg tablet 1 tab PO DAILY RF: 0 prednisone 20 mg tablet 10 mg PO BID Qty: 10 RF: 0 Referrals: [facility] [Provider Group] Eusebio Hammer MD [Primary Care Provider] -
[2018-04-25 17:26] LABS: Add Manual Diff / Slide Review NO; Basophils Absolute Auto 0 /uL (0-100); Basophils Percent Auto 0.8 % (0-2); Eosinophils Absolute Auto 600 /uL (0-450); Eosinophils Percent Auto 9.8 % (2-4); Hematocrit 38.2 % (36-46); Hemoglobin 12.7 g/dL (12.0-16.0); Lymphocytes Absolute Auto 900 /uL (1100-4500); Mean Corpuscular HGB Conc 33.2 % (30-36); Mean Corpuscular Hemoglobin 30.5 PG (26-34); Mean Corpuscular Volume 91.7 fL (80-100); Monocytes Absolute Auto 600 /uL (0-900); Monocytes Percent Auto 11.2 % (3-14); Neutrophils Absolute Auto 3600 /uL (1500-7000); Neutrophils Percent Auto 63.2 % (50-75); Platelet Count 346 X10^3/uL (150-400); Red Blood Cell Count 4.17 X10^6/uL (4.0-5.2); Red Cell Distribution Width 14.7 % (11.6-14.8); White Blood Cell Count 5.8 X10^3/uL (4.5-11.0)
[2018-04-25 17:30] VITALS: PULSE 80; RESP 20
--- NOTE | 2018-04-25 17:30 | PC.NURSE ---
Attmepts x2 for IV start. Unable but got blood for labs
--- NOTE | 2018-04-25 17:32 | RT ---
Requested by pt and nurse Maria A Thomas to change out nondisposable inner cannula. Cannula changed by RT Inge without difficulty. Both cannulas cleaned. No complications.
[2018-04-25 17:37] LABS: Blood Urea Nitrogen 17 mg/dL (7-17); Calcium 8.9 mg/dL (8.4-10.2); Carbon Dioxide 27 mmol/L (22-32); Chloride 101 mmol/L (98-107); Estimated Glomerular Filt Rate > 60.0 mL/min (>60); Glucose 79 mg/dL (70-100); Sodium 136 mmol/L (137-145)
[2018-04-25 17:43] LABS: HEMOLYSIS 107 (0-50); Potassium 4.3 mmol/L (3.4-5.1)
[2018-04-25] MEDS: TRAMADOL 50 MG TABLET 100 MG PO (18:31)
[2018-04-25 18:40] VITALS: BP 112/60; PULSE 82; RESP 20; O2SAT 98
== END 2018-04-25 18:41 | disposition home or self-care (01) ==
PROVIDERS: Emergency Provider Emergency Medicine; PCP Internal Medicine
DX: J98.09 Other diseases of bronchus, not elsewhere classified (principal)
CPT/HCPCS: 71045; 80048; 85025; 87070; 87205; 94640; 99282; 99284; J7613

== ENCOUNTER → 2018-04-28 17:17 | Outpatient (REF) | payer OTHER, MEDICAID, SELFPAY ==
[2018-03-27 17:37] VITALS: BMI 35.9
== END ==
LOC: LAB 17:17
PROVIDERS: PCP Internal Medicine; Visit Provider Internal Medicine
DX: L08.9 Local infection of the skin and subcutaneous tissue, unspecified (principal)
CPT/HCPCS: 87070; 87075; 87077; 87205

== ENCOUNTER → 2018-05-19 16:27 | Outpatient (REF) | payer OTHER, MEDICAID, SELFPAY ==
[2018-03-27 17:37] VITALS: BMI 35.9
== END ==
LOC: LAB 16:27
PROVIDERS: PCP Internal Medicine; Visit Provider Internal Medicine
DX: L98.492 Non-pressure chronic ulcer of skin of other sites with fat layer exposed (principal)
CPT/HCPCS: 87070; 87147; 87205

== ENCOUNTER 2018-05-24 14:04 | Inpatient (IN) | payer OTHER, MEDICAID, SELFPAY ==
[2018-03-27 17:37] VITALS: BMI 35.9
[2018-05-24] VITALS (8 sets, daily range): BP systolic 105–162; BP diastolic 55–99; PULSE 76–99; RESP 16–22; TEMP 36.7–36.9; O2SAT 87–99; BMI 36.7
--- NOTE | 2018-05-24 14:34 | DI.CT.S_ITS ---
PROCEDURE: CT SOFT TISSUE NECK W CON INDICATIONS: increased pain at trach/stoma, sent by wound care TECHNIQUE: After the administration of intravenous contrast, 3.0 mm axial sections acquired from the sella to the aortic arch. Additional oblique axial 3.0 mm sections acquired through the pharynx. 3 mm thick coronal and sagittal reformats were generated. For radiation dose reduction, the following was used: automated exposure control. COMPARISON: [facility], CT, CT SOFT TISSUE NECK W CON, 11/04/2017, 11:41. [facility], CT, CT SOFT TISSUE NECK W CON, 03/27/2018, 13:37. FINDINGS: Image quality: Excellent. Lymph nodes: No enlarged lymph nodes seen throughout the neck. Vessels: Visualized vasculature appears patent. Atherosclerotic calcifications noted in the visualized left coronary vasculature, aorta and the great vessels. Neck spaces: Postsurgical changes compatible with prior laryngectomy, bilateral neck dissection and myocutaneous flap placement again noted in the neck which are stable compared to prior exams. A tracheostomy is stable compared to prior exams. No significant inflammatory changes noted adjacent to the tracheostomy site. There is circumferential wall thickening involving the lower cervical/upper thoracic esophagus the level of the tracheostomy. Glands: The parotid and submandibular glands appear normal. Thyroid gland is surgically absent. Miscellaneous: Visualized brain and orbits appear normal. Focal scarring in the medial aspect of the right lung apex is stable compared to prior exams. Patient is edentulous. Bones: No suspicious bony lesions. Visualized sinuses and mastoids appear unremarkable. IMPRESSION: 1. Extensive surgical changes stable compared to prior exams. 2. No abscess or significant inflammation noted adjacent to the tracheostomy site. 3. Circumferential wall thickening involving the lower cervical/upper thoracic esophagus at the level of the tracheostomy. Finding is nonspecific may represent inflammatory or neoplastic process. Recommend endoscopy for further evaluation. Dictated by: Zari Lee MD, PhD on 05/24/2018 at 16:10 Approved by: Zari Lee MD, PhD on 05/24/2018 at 16:23
[2018-05-24] MEDS: SODIUM CHLORIDE 0.9% 1,000 ML 1000 ML IV ×2 (14:42→18:41)
[2018-05-24] MEDS: HYDROMORPHONE 1 MG INJ IV (14:44)
[2018-05-24] MEDS: ONDANSETRON 4 MG/2 ML INJ IV (14:44)
[2018-05-24] MEDS: ALBUTEROL/IPRATROPIUM 3 ML AMPUL INH (15:16)
[2018-05-24 15:19] LABS: Add Manual Diff / Slide Review NO; Basophils Absolute Auto 100 /uL (0-100); Eosinophils Absolute Auto 500 /uL (0-450); Eosinophils Percent Auto 5.3 % (2-4); Hematocrit 38.9 % (36-46); Hemoglobin 12.8 g/dL (12.0-16.0); Lymphocytes Absolute Auto 1200 /uL (1100-4500); Lymphocytes Percent Auto 13.7 % (25-40); Mean Corpuscular HGB Conc 32.9 % (30-36); Mean Corpuscular Hemoglobin 30.3 PG (26-34); Mean Corpuscular Volume 92.1 fL (80-100); Monocytes Absolute Auto 700 /uL (0-900); Monocytes Percent Auto 8.6 % (3-14); Neutrophils Absolute Auto 6200 /uL (1500-7000); Neutrophils Percent Auto 71.4 % (50-75); Platelet Count 278 X10^3/uL (150-400); Red Blood Cell Count 4.23 X10^6/uL (4.0-5.2); Red Cell Distribution Width 14.2 % (11.6-14.8); White Blood Cell Count 8.7 X10^3/uL (4.5-11.0)
[2018-05-24 15:32] LABS: Blood Urea Nitrogen 15 mg/dL (7-17); Carbon Dioxide 26 mmol/L (22-32); Chloride 103 mmol/L (98-107); Estimated Glomerular Filt Rate > 60.0 mL/min (>60); Glucose 84 mg/dL (70-100); HEMOLYSIS < 15 (0-50); Potassium 3.5 mmol/L (3.4-5.1); Sodium 137 mmol/L (137-145)
--- NOTE | 2018-05-24 17:05 | ED.GENADULT ---
HPI - General Adult General Chief complaint: Hypertension Stated complaint: SHAKEY Time Seen by Provider: 05/24/18 14:17 Source: patient Limitations: no limitations History of Present Illness HPI narrative: 57-year-old female known well to staff presents at the request of her wound care doc after evaluating skin breakdown her tracheostomy. His concerns of the possibility of underlying infection or possibly abscess given the presentation and how it has presented. Patient states that she has the sensation of fullness and significant pain around her tracheostomy but deep to the skin. Her chief complaint is not of an inability to swallow but things in her neck feel tight and abnormal. She has never felt this type of pain, or fullness. Patient denies any fever chills nor nausea or vomiting. She denies any increasing work of breathing and is otherwise well and free of complaint. Onset (ago): hour(s) Location: neck Radiation: non-radiation Severity: moderate Quality: burning Pain Consistency: constant Relieving factors: none Exacerbating factors: none Treatments prior to arrival: none Related Data Home Medications Medication Instructions Recorded Confirmed albuterol sulfate 1 dose INHALATION QIDP PRN #180 01/25/16 05/24/18 docusate sodium 100 mg PO BID #0 01/25/16 05/24/18 ferrous gluconate 324 mg PO DAILY #0 08/28/16 01/25/18 omeprazole 20 mg PO DAILY #0 08/28/16 01/25/18 acetaminophen 325 mg PO Q6HP PRN #0 10/29/16 05/24/18 amitriptyline 25 mg PO BEDTIME #0 01/22/17 01/25/18 ascorbic acid (vitamin C) 500 mg PO DAILY #0 06/10/17 01/25/18 fexofenadine 180 mg PO DAILY #0 06/10/17 05/24/18 nystatin 1 dose PO DIRECTED #0 06/10/17 01/25/18 sodium chloride 0.9 % 1 vial QID PRN #0 06/10/17 05/24/18 citalopram 40 mg PO DAILY 09/21/17 05/24/18 lisinopril 10 mg PO BID 09/21/17 05/24/18 levothyroxine 1 tab PO DAILY 01/04/18 05/24/18 estradiol 1 mg PO DAILY 01/25/18 05/24/18 gentamicin 1 applic TOPICAL DIRECTED 05/24/18 05/24/18 meloxicam 15 mg PO DAILY 05/24/18 05/24/18 Previous Rx's Medication Instructions Recorded prednisone 10 mg PO BID #10 tab 01/06/18 tramadol 50 mg PO Q6H PRN #10 tab 04/25/18 Allergies Allergy/AdvReac Type Severity Reaction Status Date / Time hydrocodone Allergy Intermediate RASH/HIVES Verified 05/24/18 14:09 Penicillins Allergy Intermediate RASH/HIVES Verified 05/24/18 14:09 metronidazole Allergy Mild RASH Verified 05/24/18 14:09 diphenhydramine Allergy Unknown Verified 05/24/18 14:09 [DIPHENHYDRAMINE] ibuprofen Allergy Unknown Verified 05/24/18 14:09 oxycodone [OXYCODONE] Allergy Unknown Verified 05/24/18 14:09 venom-wasp Allergy Verified 05/24/18 14:09 ranitidine AdvReac Intermediate SOB/DIZZY Verified 05/24/18 14:09 sulfamethoxazole AdvReac Mild GI UPSET Verified 05/24/18 14:09 [From Bactrim] trimethoprim [From Bactrim] AdvReac Mild GI UPSET Verified 05/24/18 14:09 fentanyl [FENTANYL] AdvReac Unknown vomiting Verified 01/04/18 14:30 ANTACIDS AdvReac Unknown Uncoded 01/04/18 14:30 Review of Systems Constitutional Denies chills, Denies fever(s), Denies lethargy and Denies weakness Eyes Denies change in vision, Denies eye discharge, Denies irritation and Denies loss of vision ENT Ears, Nose, Mouth, and Throat: Denies change in voice, Denies neck pain, Denies sore throat and Reports throat swelling Cardiovascular Denies chest pain, Denies irregular heart rhythm, Denies lightheadedness, Denies palpitations, Denies dyspnea, Denies dyspnea on exertion and Denies orthopnea Respiratory Denies cough, Denies dyspnea, Denies dyspnea on exertion and Denies wheezing Gastrointestinal Gastrointestinal: Denies abdominal pain, Denies change in bowel habits, Denies diarrhea, Denies nausea and Denies vomiting Genitourinary Denies hematuria, Denies flank pain, Denies urinary incontinence and Denies urinary urgency Musculoskeletal Denies neck pain Integumentary/Breasts Denies pruritus, Denies erythema, Denies rash and Denies wounds Neurologic Denies confusion, Denies loss of vision and Denies weakness Psychiatric Denies anxiety, Denies confusion, Denies depression, Denies homicidal ideation and Denies suicidal ideation Endocrine Denies palpitations Hematologic/Lymphatic Denies easy bruising Allergic/Immunologic Reports throat swelling and Denies wheezing [facility] Medical History Tracheobronchitis (Acute) Chronic pain (Acute) Community acquired pneumonia (Acute) Tracheostomy complication (Acute) Otitis media, purulent, acute, with spontaneous rupture of TM (Acute) Laryngeal cancer (Acute) MRSA (methicillin resistant Staphylococcus aureus) (Acute) Social History household members: significant other Smoking Status: Former smoker alcohol intake: former Social History household members: significant other Smoking Status: Former smoker alcohol intake: former Exam Narrative Exam Narrative: GEN: AOx3 and in mild distress EYES: Pupils are equal, round, and reactive to light and accommodation. Extraoccular muscles are intact bilaterally. There is no subconjunctival hemorrhage or exudate. NECK: TRACH in place. No drainage. painful edematous/erythematous skin CHEST: Lungs are clear to auscultation bilaterally and free of wheezes, rales, or rhonchi. Heart rate is regular rhythm, there are no murmurs, clicks, rubs, or gallops. There is no chest wall tenderness. ABD: Abdomen is soft and nontender. There is no guarding or rebound. Bowel sounds are normal in all 4 quadrants. There is no mass or organomegaly. EXT: Full painless ROM of all extremities with no loss of sensation or strength. SKIN: Warm, pink, and dry. No erythema or rash Initial Vital Signs Initial Vital Signs: Vital Signs Temperature 98.1 F 05/24/18 14:05 Pulse Rate 99 H 05/24/18 14:05 Respiratory Rate 22 05/24/18 14:05 Blood Pressure 162/99 H 05/24/18 14:05 Pulse Oximetry 99 05/24/18 14:05 Course Orders Ordered: ED Orders 05/24/18 14:34 CT soft tissue neck w con Stat 05/24/18 14:55 Basic Metabolic Panel Stat Complete Blood Count AUTO DIFF Stat Ondansetron HCl (Zofran) 4 mg IV Q4HR PRN PRN Reason: Nausea And Vomiting Last Admin: 05/24/18 14:44 Dose: 4 mg Discontinued Medications Albuterol/Ipratropium (Duoneb) 3 ml INH NOW ONE Stop: 05/24/18 15:16 Last Admin: 05/24/18 15:16 Dose: 3 ml Hydromorphone HCl (Dilaudid) 1 mg IV NOW ONE Stop: 05/24/18 14:35 Last Admin: 05/24/18 14:44 Dose: 1 mg Hydromorphone HCl (Dilaudid) 0.5 mg IV NOW ONE Stop: 05/24/18 20:10 Sodium Chloride (Normal Saline 0.9%) 1,000 mls @ 1,000 mls/hr IV BOLUS ONE Stop: 05/24/18 15:33 Last Infusion: 05/24/18 18:35 Dose: 0 mls/hr Admin: 05/24/18 14:42 Dose: 1,000 mls/hr Sodium Chloride (Normal Saline 0.9%) 1,000 mls @ 1,000 mls/hr IV BOLUS ONE Stop: 05/24/18 18:20 Last Infusion: 05/24/18 20:06 Dose: 0 mls/hr Admin: 05/24/18 18:41 Dose: 1,000 mls/hr Vital Signs - 8 hr 05/24/18 14:05 05/24/18 15:16 05/24/18 16:00 Temperature 98.1 F Pulse Rate 99 H 88 89 Respiratory Rate 22 18 18 Blood Pressure 162/99 H Blood Pressure [Left Arm] 146/71 H Pulse Oximetry 99 87 L 90 L 05/24/18 18:15 05/24/18 19:01 Temperature Pulse Rate 84 Respiratory Rate 22 16 Blood Pressure Blood Pressure [Left Arm] 105/55 L Pulse Oximetry 97 93 Medical Decision Making Lab Data Result diagrams: 05/24/18 14:55 05/24/18 14:55 Lab Results 05/24/18 05/24/18 Range/Units 14:55 14:55 WBC 8.7 (4.5-11.0) X10^3/uL RBC 4.23 (4.0-5.2) X10^6/uL Hgb 12.8 (12.0-16.0) g/dL Hct 38.9 (36-46) % MCV 92.1 (80-100) fL MCH 30.3 (26-34) PG MCHC 32.9 (30-36) % RDW 14.2 (11.6-14.8) % Plt Count 278 (150-400) X10^3/uL Neut % (Auto) 71.4 (50-75) % Lymph % (Auto) 13.7 L (25-40) % Greene % (Auto) 8.6 (3-14) % Eos % (Auto) 5.3 H (2-4) % Baso % (Auto) 1.0 (0-2) % Neut # (Auto) 6200 (8354-3391) /uL Lymph # (Auto) 1200 (1977-8192) /uL Greene # (Auto) 700 (0-900) /uL Eos # (Auto) 500 H (0-450) /uL Baso # (Auto) 100 (0-100) /uL Sodium 137 (137-145) mmol/L Potassium 3.5 (3.4-5.1) mmol/L Chloride 103 (98-107) mmol/L Carbon Dioxide 26 (22-32) mmol/L BUN 15 (7-17) mg/dL Creatinine 0.60 (0.52-1.04) mg/dL Estimated GFR > 60.0 (>60) mL/min BUN/Creatinine Ratio 25.0 H (6-22) Glucose 84 (70-100) mg/dL Calcium 8.0 L (8.4-10.2) mg/dL Imaging Data CT scan - abdomen: Radiologist's impression: Chart Viewer Diagnostics DATE TYPE STATUS AUTHOR Hx 05/24/18 14:34 Zari Lee 04/25/18 17:05 Atul Lechuga 03/27/18 15:57 03/27/18 13:36 Charity Tran 03/27/18 12:12 Charity Tran 02/16/18 22:51 You Rubio 01/25/18 17:28 Colin Pinon 01/25/18 15:43 Augusto Royal 01/25/18 15:42 Dean Beyer 01/05/18 06:00 Rodrigo Vincent 01/04/18 15:06 Clemente,Scott 01/04/18 14:10 Shahnaz Paulson 11/04/17 12:04 Zari Lee 11/04/17 10:36 Colin Pinon 09/21/17 20:40 09/21/17 15:34 Chucky Buchanan Terri S 57, F0 1960 REG ER, ED.LOC - Main ED: R05 102kg Hypertension Search Chart RASH/HIVES RASH/HIVES RASH SOB/DIZZY GI UPSET GI UPSET vomiting ONSET Today 19:01 Nai Zeng 57 F [address] [address] [address] Scan Report Signed Patient: Nai Zeng SMR#: [id number] : 1960cct:[id number] Age/Sex: 57 / FDate of Service: 05/24/18 Loc: ED Accession Number: [id number] Procedure: CT soft tissue neck w con Ordering Provider: Juan Ansari D.O. PROCEDURE: CT SOFT TISSUE NECK W CON INDICATIONS: increased pain at trach/stoma, sent by wound care TECHNIQUE: After the administration of intravenous contrast, 3.0 mm axial sections acquired from the sella to the aortic arch. Additional oblique axial 3.0 mm sections acquired through the pharynx. 3 mm thick coronal and sagittal reformats were generated. For radiation dose reduction, the following was used: automated exposure control. COMPARISON: [facility], CT, CT SOFT TISSUE NECK W CON, 11/04/2017, 11:41. [facility], CT, CT SOFT TISSUE NECK W CON, 03/27/2018, 13:37. FINDINGS: Image quality: Excellent. Lymph nodes: No enlarged lymph nodes seen throughout the neck. Vessels: Visualized vasculature appears patent. Atherosclerotic calcifications noted in the visualized left coronary vasculature, aorta and the great vessels. Neck spaces: Postsurgical changes compatible with prior laryngectomy, bilateral neck dissection and myocutaneous flap placement again noted in the neck which are stable compared to prior exams. A tracheostomy is stable compared to prior exams. No significant inflammatory changes noted adjacent to the tracheostomy site. There is circumferential wall thickening involving the lower cervical/upper thoracic esophagus the level of the tracheostomy. Glands: The parotid and submandibular glands appear normal. Thyroid gland is surgically absent. Miscellaneous: Visualized brain and orbits appear normal. Focal scarring in the medial aspect of the right lung apex is stable compared to prior exams. Patient is edentulous. Bones: No suspicious bony lesions. Visualized sinuses and mastoids appear unremarkable. IMPRESSION: 1. Extensive surgical changes stable compared to prior exams. 2. No abscess or significant inflammation noted adjacent to the tracheostomy site. 3. Circumferential wall thickening involving the lower cervical/upper thoracic esophagus at the level of the tracheostomy. Finding is nonspecific may represent inflammatory or neoplastic process. Recommend endoscopy for further evaluation. Dictated by: Zrai Lee MD, PhD on 05/24/2018 at 16:10 MDM Narrative Medical decision making narrative: patient is requiring multiple doses of IV pain meds, she has an intolerance to most oral pain meds. She takes multiple other medications. I've spoken with general surgery whom will be happy to scope patient if medicine consults her Discharge Plan Departure Patient Disposition: Admitted as Observation Referrals: Eusebio Hammer MD [Primary Care Provider] -
--- NOTE | 2018-05-24 17:11 | ED_ITS ---
HPI - General Adult General Chief complaint: Hypertension Stated complaint: SHAKEY Time Seen by Provider: 05/24/18 14:17 Source: patient Limitations: no limitations History of Present Illness HPI narrative: 57-year-old female known well to staff presents at the request of her wound care doc after evaluating skin breakdown her tracheostomy. His concerns of the possibility of underlying infection or possibly abscess given the presentation and how it has presented. Patient states that she has the sensation of fullness and significant pain around her tracheostomy but deep to the skin. Her chief complaint is not of an inability to swallow but things in her neck feel tight and abnormal. She has never felt this type of pain, or fullness. Patient denies any fever chills nor nausea or vomiting. She denies any increasing work of breathing and is otherwise well and free of complaint. Onset (ago): hour(s) Location: neck Radiation: non-radiation Severity: moderate Quality: burning Pain Consistency: constant Relieving factors: none Exacerbating factors: none Treatments prior to arrival: none Related Data Home Medications Medication Instructions Recorded Confirmed albuterol sulfate 1 dose INHALATION QIDP PRN #180 01/25/16 05/24/18 docusate sodium 100 mg PO BID #0 01/25/16 05/24/18 ferrous gluconate 324 mg PO DAILY #0 08/28/16 01/25/18 omeprazole 20 mg PO DAILY #0 08/28/16 01/25/18 acetaminophen 325 mg PO Q6HP PRN #0 10/29/16 05/24/18 amitriptyline 25 mg PO BEDTIME #0 01/22/17 01/25/18 ascorbic acid (vitamin C) 500 mg PO DAILY #0 06/10/17 01/25/18 fexofenadine 180 mg PO DAILY #0 06/10/17 05/24/18 nystatin 1 dose PO DIRECTED #0 06/10/17 01/25/18 sodium chloride 0.9 % 1 vial QID PRN #0 06/10/17 05/24/18 citalopram 40 mg PO DAILY 09/21/17 05/24/18 lisinopril 10 mg PO BID 09/21/17 05/24/18 levothyroxine 1 tab PO DAILY 01/04/18 05/24/18 estradiol 1 mg PO DAILY 01/25/18 05/24/18 gentamicin 1 applic TOPICAL DIRECTED 05/24/18 05/24/18 meloxicam 15 mg PO DAILY 05/24/18 05/24/18 Previous Rx's Medication Instructions Recorded prednisone 10 mg PO BID #10 tab 01/06/18 tramadol 50 mg PO Q6H PRN #10 tab 04/25/18 Allergies Allergy/AdvReac Type Severity Reaction Status Date / Time hydrocodone Allergy Intermediate RASH/HIVES Verified 05/24/18 14:09 Penicillins Allergy Intermediate RASH/HIVES Verified 05/24/18 14:09 metronidazole Allergy Mild RASH Verified 05/24/18 14:09 diphenhydramine Allergy Unknown Verified 05/24/18 14:09 [DIPHENHYDRAMINE] ibuprofen Allergy Unknown Verified 05/24/18 14:09 oxycodone [OXYCODONE] Allergy Unknown Verified 05/24/18 14:09 venom-wasp Allergy Verified 05/24/18 14:09 ranitidine AdvReac Intermediate SOB/DIZZY Verified 05/24/18 14:09 sulfamethoxazole AdvReac Mild GI UPSET Verified 05/24/18 14:09 [From Bactrim] trimethoprim [From Bactrim] AdvReac Mild GI UPSET Verified 05/24/18 14:09 fentanyl [FENTANYL] AdvReac Unknown vomiting Verified 01/04/18 14:30 ANTACIDS AdvReac Unknown Uncoded 01/04/18 14:30 Review of Systems Constitutional Denies chills, Denies fever(s), Denies lethargy and Denies weakness Eyes Denies change in vision, Denies eye discharge, Denies irritation and Denies loss of vision ENT Ears, Nose, Mouth, and Throat: Denies change in voice, Denies neck pain, Denies sore throat and Reports throat swelling Cardiovascular Denies chest pain, Denies irregular heart rhythm, Denies lightheadedness, Denies palpitations, Denies dyspnea, Denies dyspnea on exertion and Denies orthopnea Respiratory Denies cough, Denies dyspnea, Denies dyspnea on exertion and Denies wheezing Gastrointestinal Gastrointestinal: Denies abdominal pain, Denies change in bowel habits, Denies diarrhea, Denies nausea and Denies vomiting Genitourinary Denies hematuria, Denies flank pain, Denies urinary incontinence and Denies urinary urgency Musculoskeletal Denies neck pain Integumentary/Breasts Denies pruritus, Denies erythema, Denies rash and Denies wounds Neurologic Denies confusion, Denies loss of vision and Denies weakness Psychiatric Denies anxiety, Denies confusion, Denies depression, Denies homicidal ideation and Denies suicidal ideation Endocrine Denies palpitations Hematologic/Lymphatic Denies easy bruising Allergic/Immunologic Reports throat swelling and Denies wheezing COUNT INCLUDES THE [facility] Medical History Tracheobronchitis (Acute) Chronic pain (Acute) Community acquired pneumonia (Acute) Tracheostomy complication (Acute) Otitis media, purulent, acute, with spontaneous rupture of TM (Acute) Laryngeal cancer (Acute) MRSA (methicillin resistant Staphylococcus aureus) (Acute) Social History household members: significant other Smoking Status: Former smoker alcohol intake: former Social History household members: significant other Smoking Status: Former smoker alcohol intake: former Exam Narrative Exam Narrative: GEN: AOx3 and in mild distress EYES: Pupils are equal, round, and reactive to light and accommodation. Extraoccular muscles are intact bilaterally. There is no subconjunctival hemorrhage or exudate. NECK: TRACH in place. No drainage. painful edematous/erythematous skin CHEST: Lungs are clear to auscultation bilaterally and free of wheezes, rales, or rhonchi. Heart rate is regular rhythm, there are no murmurs, clicks, rubs, or gallops. There is no chest wall tenderness. ABD: Abdomen is soft and nontender. There is no guarding or rebound. Bowel sounds are normal in all 4 quadrants. There is no mass or organomegaly. EXT: Full painless ROM of all extremities with no loss of sensation or strength. SKIN: Warm, pink, and dry. No erythema or rash Initial Vital Signs Initial Vital Signs: Vital Signs Temperature 98.1 F 05/24/18 14:05 Pulse Rate 99 H 05/24/18 14:05 Respiratory Rate 22 05/24/18 14:05 Blood Pressure 162/99 H 05/24/18 14:05 Pulse Oximetry 99 05/24/18 14:05 Course Orders Ordered: ED Orders 05/24/18 14:34 CT soft tissue neck w con Stat 05/24/18 14:55 Basic Metabolic Panel Stat Complete Blood Count AUTO DIFF Stat Ondansetron HCl (Zofran) 4 mg IV Q4HR PRN PRN Reason: Nausea And Vomiting Last Admin: 05/24/18 14:44 Dose: 4 mg Discontinued Medications Albuterol/Ipratropium (Duoneb) 3 ml INH NOW ONE Stop: 05/24/18 15:16 Last Admin: 05/24/18 15:16 Dose: 3 ml Hydromorphone HCl (Dilaudid) 1 mg IV NOW ONE Stop: 05/24/18 14:35 Last Admin: 05/24/18 14:44 Dose: 1 mg Hydromorphone HCl (Dilaudid) 0.5 mg IV NOW ONE Stop: 05/24/18 20:10 Sodium Chloride (Normal Saline 0.9%) 1,000 mls @ 1,000 mls/hr IV BOLUS ONE Stop: 05/24/18 15:33 Last Infusion: 05/24/18 18:35 Dose: 0 mls/hr Admin: 05/24/18 14:42 Dose: 1,000 mls/hr Sodium Chloride (Normal Saline 0.9%) 1,000 mls @ 1,000 mls/hr IV BOLUS ONE Stop: 05/24/18 18:20 Last Infusion: 05/24/18 20:06 Dose: 0 mls/hr Admin: 05/24/18 18:41 Dose: 1,000 mls/hr Vital Signs - 8 hr 05/24/18 14:05 05/24/18 15:16 05/24/18 16:00 Temperature 98.1 F Pulse Rate 99 H 88 89 Respiratory Rate 22 18 18 Blood Pressure 162/99 H Blood Pressure [Left Arm] 146/71 H Pulse Oximetry 99 87 L 90 L 05/24/18 18:15 05/24/18 19:01 Temperature Pulse Rate 84 Respiratory Rate 22 16 Blood Pressure Blood Pressure [Left Arm] 105/55 L Pulse Oximetry 97 93 Medical Decision Making Lab Data Result diagrams: 05/24/18 14:55 05/24/18 14:55 Lab Results 05/24/18 05/24/18 Range/Units 14:55 14:55 WBC 8.7 (4.5-11.0) X10^3/uL RBC 4.23 (4.0-5.2) X10^6/uL Hgb 12.8 (12.0-16.0) g/dL Hct 38.9 (36-46) % MCV 92.1 (80-100) fL MCH 30.3 (26-34) PG MCHC 32.9 (30-36) % RDW 14.2 (11.6-14.8) % Plt Count 278 (150-400) X10^3/uL Neut % (Auto) 71.4 (50-75) % Lymph % (Auto) 13.7 L (25-40) % [place] % (Auto) 8.6 (3-14) % Eos % (Auto) 5.3 H (2-4) % Baso % (Auto) 1.0 (0-2) % Neut # (Auto) 6200 (7402-6912) /uL Lymph # (Auto) 1200 (1288-5526) /uL [place] # (Auto) 700 (0-900) /uL Eos # (Auto) 500 H (0-450) /uL Baso # (Auto) 100 (0-100) /uL Sodium 137 (137-145) mmol/L Potassium 3.5 (3.4-5.1) mmol/L Chloride 103 (98-107) mmol/L Carbon Dioxide 26 (22-32) mmol/L BUN 15 (7-17) mg/dL Creatinine 0.60 (0.52-1.04) mg/dL Estimated GFR > 60.0 (>60) mL/min BUN/Creatinine Ratio 25.0 H (6-22) Glucose 84 (70-100) mg/dL Calcium 8.0 L (8.4-10.2) mg/dL Imaging Data CT scan - abdomen: Radiologist's impression: Chart Viewer Diagnostics DATE TYPE STATUS AUTHOR Hx 05/24/18 14:34 Zari Lee 04/25/18 17:05 Atul Lechuga 03/27/18 15:57 03/27/18 13:36 Charity Tran 03/27/18 12:12 Charity Tran 02/16/18 22:51 You Rubio 01/25/18 17:28 Colin Pinon 01/25/18 15:43 Augusto Royal 01/25/18 15:42 Dean Beyer 01/05/18 06:00 Rodrigo Vincent 01/04/18 15:06 Clemente,Scott 01/04/18 14:10 Shahnaz Paulson 11/04/17 12:04 Zari Lee 11/04/17 10:36 Colin Pinon 09/21/17 20:40 09/21/17 15:34 Chucky Buchanan Terri S 57, F0 1960 REG ER, ED.LOC - Main ED: R05 102kg Hypertension Search Chart RASH/HIVES RASH/HIVES RASH SOB/DIZZY GI UPSET GI UPSET vomiting ONSET Today 19:01 Nai Zeng 57 F [address] [address] [address] Scan Report Signed Patient: Nai Zeng SMR#: [id number] : 1960cct:[id number] Age/Sex: 57 / FDate of Service: 05/24/18 Loc: ED Accession Number: [id number] Procedure: CT soft tissue neck w con Ordering Provider: Juan Ansari D.O. PROCEDURE: CT SOFT TISSUE NECK W CON INDICATIONS: increased pain at trach/stoma, sent by wound care TECHNIQUE: After the administration of intravenous contrast, 3.0 mm axial sections acquired from the sella to the aortic arch. Additional oblique axial 3.0 mm sections acquired through the pharynx. 3 mm thick coronal and sagittal reformats were generated. For radiation dose reduction, the following was used: automated exposure control. COMPARISON: [facility], CT, CT SOFT TISSUE NECK W CON, 11/04/2017, 11:41. [facility], CT, CT SOFT TISSUE NECK W CON, 03/27/2018, 13:37. FINDINGS: Image quality: Excellent. Lymph nodes: No enlarged lymph nodes seen throughout the neck. Vessels: Visualized vasculature appears patent. Atherosclerotic calcifications noted in the visualized left coronary vasculature, aorta and the great vessels. Neck spaces: Postsurgical changes compatible with prior laryngectomy, bilateral neck dissection and myocutaneous flap placement again noted in the neck which are stable compared to prior exams. A tracheostomy is stable compared to prior exams. No significant inflammatory changes noted adjacent to the tracheostomy site. There is circumferential wall thickening involving the lower cervical/upper thoracic esophagus the level of the tracheostomy. Glands: The parotid and submandibular glands appear normal. Thyroid gland is surgically absent. Miscellaneous: Visualized brain and orbits appear normal. Focal scarring in the medial aspect of the right lung apex is stable compared to prior exams. Patient is edentulous. Bones: No suspicious bony lesions. Visualized sinuses and mastoids appear u nremarkable. IMPRESSION: 1. Extensive surgical changes stable compared to prior exams. 2. No abscess or significant inflammation noted adjacent to the tracheostomy site. 3. Circumferential wall thickening involving the lower cervical/upper thoracic esophagus at the level of the tracheostomy. Finding is nonspecific may represent inflammatory or neoplastic process. Recommend endoscopy for further evaluation. Dictated by: Zari Lee MD, PhD on 05/24/2018 at 16:10 MDM Narrative Medical decision making narrative: patient is requiring multiple doses of IV pain meds, she has an intolerance to most oral pain meds. She takes multiple other medications. I've spoken with general surgery whom will be happy to scope patient if medicine consults her Discharge Plan Departure Patient Disposition: Admitted as Observation Referrals: Eusebio Hammer MD [Primary Care Provider] -
[2018-05-24] MEDS: HYDROMORPHONE 1 MG INJ 0.5 MG IV (20:19)
--- NOTE | 2018-05-24 22:28 | P.HP_ITS ---
History of Present Illness Date Patient Seen: 05/24/18 Time Patient Seen: 22:14 Chief complaint: SANDYKEY Narrative: 57-year-old female with chronic tracheostomy for laryngeal cancer who presents with increasing pain and fullness in the lower neck near the tracheostomy site. The patient is followed by a Dr. dodd and the wound clinic for a chronic wound in the area. The patient evidently saw Dr. dodd today and he was concerned about a possible abscess around the tracheostomy site because of increasing pain. The patient subsequently had a CT scan done which showed circumferential wall thickening involving the lower cervical upper thoracic esophagus at the level of the tracheostomy. She was seen in the emergency room she was having uncontrolled pain and required 3-4 doses of IV Dilaudid and still had uncontrolled pain. When I interviewed the patient's T was still complaining of uncontrolled pain but was otherwise resting comfortably. She denies any fever denies any increased drainage from the trach site. Patient History Medical History Tracheobronchitis (Chronic) Chronic pain (Acute) Community acquired pneumonia (Resolved) Tracheostomy complication (Acute) Otitis media, purulent, acute, with spontaneous rupture of TM (Resolved) MRSA (methicillin resistant Staphylococcus aureus) (Acute) Laryngeal cancer (Chronic) Social History household members: significant other Smoking Status: Former smoker alcohol intake: former Comment: Tracheostomy for laryngeal cancer Family & Social History Family history unavailable: Yes Social History: household members significant other Safety & Behavioral: Feels Safe in Current Yes Environment Been Physically Hurt or No Threatened By a Person Tobacco & Substance use: Smoking Status Former smoker alcohol intake former alcohol intake frequency 0-2 drinks per day Substance Use Type does not use Meds Home Medications Medication Instructions Recorded Confirmed Type albuterol sulfate 1 dose INHALATION QIDP PRN #180 01/25/16 05/24/18 History docusate sodium 100 mg PO BID #0 01/25/16 05/24/18 History ferrous gluconate 324 mg PO DAILY #0 08/28/16 01/25/18 History omeprazole 20 mg PO DAILY #0 08/28/16 01/25/18 History acetaminophen 325 mg PO Q6HP PRN #0 10/29/16 05/24/18 History amitriptyline 25 mg PO BEDTIME #0 01/22/17 01/25/18 History ascorbic acid (vitamin C) 500 mg PO DAILY #0 06/10/17 01/25/18 History fexofenadine 180 mg PO DAILY #0 06/10/17 05/24/18 History nystatin 1 dose PO DIRECTED #0 06/10/17 01/25/18 History sodium chloride 0.9 % 1 vial QID PRN #0 06/10/17 05/24/18 History citalopram 40 mg PO DAILY 09/21/17 05/24/18 History lisinopril 10 mg PO BID 09/21/17 05/24/18 History levothyroxine 1 tab PO DAILY 01/04/18 05/24/18 History prednisone 10 mg PO BID #10 tab 01/06/18 01/25/18 Rx estradiol 1 mg PO DAILY 01/25/18 05/24/18 History tramadol 50 mg PO Q6H PRN #10 tab 04/25/18 Rx gentamicin 1 applic TOPICAL DIRECTED 05/24/18 05/24/18 History meloxicam 15 mg PO DAILY 05/24/18 05/24/18 History Allergies Allergy/AdvReac Type Severity Reaction Status Date / Time hydrocodone Allergy Intermediate RASH/HIVES Verified 05/24/18 14:09 Penicillins Allergy Intermediate RASH/HIVES Verified 05/24/18 14:09 metronidazole Allergy Mild RASH Verified 05/24/18 14:09 diphenhydramine Allergy Unknown Verified 05/24/18 14:09 [DIPHENHYDRAMINE] ibuprofen Allergy Unknown Verified 05/24/18 14:09 oxycodone [OXYCODONE] Allergy Unknown Verified 05/24/18 14:09 venom-wasp Allergy Verified 05/24/18 14:09 ranitidine AdvReac Intermediate SOB/DIZZY Verified 05/24/18 14:09 sulfamethoxazole AdvReac Mild GI UPSET Verified 05/24/18 14:09 [From Bactrim] trimethoprim [From Bactrim] AdvReac Mild GI UPSET Verified 05/24/18 14:09 fentanyl [FENTANYL] AdvReac Unknown vomiting Verified 01/04/18 14:30 ANTACIDS AdvReac Unknown Uncoded 01/04/18 14:30 Review of Systems Constitutional Constitutional: Denies chills and Denies fever(s) Eyes Eyes: Reports system reviewed; no additional complaints, except as documented ENT Ears, Nose, Mouth, and Throat: Yes system reviewed; no additional complaints, except as documented and Yes difficulty swallowing Cardiovascular Cardiovascular: Reports system reviewed; no additional complaints, except as documented Respiratory Respiratory: Denies change in phlegm color, Denies chest congestion and Denies cough Gastrointestinal Gastrointestinal: Reports dysphagia Genitourinary Genitourinary: Reports system reviewed and no additional complaints, except as documented Musculoskeletal Musculoskeletal: Reports system reviewed; no additional complaints, except as documented Integumentary/Breasts Skin/Breast: Reports system reviewed and no additional complaints, except as documented Neurologic Neurologic: Reports system reviewed and no additional complaints, except as documented Psychiatric Psychiatric: Reports system reviewed and no additional complaints, except as documented Endocrine Endocrine: Reports system reviewed and no additional complaints, except as documented Hematologic/Lymphatic Hematologic/Lymphatic: Reports system reviewed and no additional complaints, ex cept as documented Exam Vital Signs (past 8 hours): - 05/24/18 15:16 05/24/18 16:00 05/24/18 18:15 Temperature Pulse Rate 88 89 Respiratory Rate 18 18 22 Blood Pressure Blood Pressure [Left Arm] 146/71 H Pulse Oximetry 87 L 90 L 97 05/24/18 19:01 05/24/18 20:30 05/24/18 21:32 Temperature 98.1 F Pulse Rate 84 76 Respiratory Rate 16 18 Blood Pressure 126/63 Blood Pressure [Left Arm] 105/55 L 120/64 Pulse Oximetry 93 92 05/24/18 21:40 Temperature 98.5 F Pulse Rate 77 Respiratory Rate 20 Blood Pressure 153/96 H Blood Pressure [Left Arm] Pulse Oximetry 92 Oxygen Delivery Method Room Air Narrative Exam Narrative: Middle-aged female no acute distress unable to speak due to the tracheostomy but able to write and communicate that way with very readily Neck tracheostomy in place this postsurgical changes there is some drainage but it is around the trach site and is dressed currently. Lungs no difficulty breathing no tachypnea lungs are clear Heart regular rhythm Abdomen soft nontender bowel sounds are present Lower extremities no edema Skin warm and dry Neuro exam awake alert no focal deficits Objective Labs Result Diagrams: 05/24/18 14:55 05/24/18 14:55 Labs: Laboratory Results - last 24 hr 05/24/18 05/24/18 14:55 14:55 WBC 8.7 RBC 4.23 Hgb 12.8 Hct 38.9 MCV 92.1 MCH 30.3 MCHC 32.9 RDW 14.2 Plt Count 278 Neut % (Auto) 71.4 Lymph % (Auto) 13.7 L [place] % (Auto) 8.6 Eos % (Auto) 5.3 H Baso % (Auto) 1.0 Neut # (Auto) 6200 Lymph # (Auto) 1200 [place] # (Auto) 700 Eos # (Auto) 500 H Baso # (Auto) 100 Sodium 137 Potassium 3.5 Chloride 103 Carbon Dioxide 26 BUN 15 Creatinine 0.60 Estimated GFR > 60.0 BUN/Creatinine Ratio 25.0 H Glucose 84 Calcium 8.0 L Assessment & Plan Assessment & Plan narrative: One. Increasing pain in the area surrounding the tracheostomy with evidence on CT scan of thickening in the esophagus possibly fr om neoplastic process or possibly from inflammation. Patient is having some difficulty with swallowing also but is having uncontrolled pain. She probably needs to have a upper endoscopy done. The patient will be placed on observation status and made NPO Given IV Dilaudid general surgery Dr. tee was consulted while the patient was in the emergency department she says is willing to consult on the patient wanted to the medicine service to admit the patient so we will admit her under observation status. She will be made NPO and await EGD tomorrow to get a defer definitive diagnosis hopefully. In the meantime place her on hydromorphone and consider other ways to treat her chronic pain. She had been on tramadol she also is allergic to hydrocodone and Percocet. There is some note in the chart that she had some nausea to fentanyl consider a fentanyl patch possibly. 2. Chronic wound around the tracheostomy site this is being followed by wound care Dr. dodd. He saw the patient today did not feel there is any active infection. 3. History of COPD she had an exacerbation about a month or so ago. Patient thinks that she is still taking prednisone but I am not certain that this is actually a current medication. We will try to get a more accurate list from the patient's family or caregivers 4. Code status the patient remains full code 5. DVT prophylaxis compression stockings for now she is relatively low risk and possibly will be going to surgery for EGD. Time Spent With Patient Time with patient: Greater than 35 minutes
--- NOTE | 2018-05-24 23:14 | PC.NURSE ---
Admit note: Nai was brought from ER via gurney, transfered self to bed. VS stable. RA oxygen 96%, no respiratory distress observed, respirations 18-20/minute. Able to answer admission questions, writing answers in pen on tablet. She told me she has a wound around her trach site, drsg over site is CDI. Told me that she has an appt with Dr Cornell at [facility] to change drsg on the . Reports pain to neck 10/16, describes as throbbing, I went to give Dilaudid as ordered, but none of the meds ordered by Dr Ernst have been verified by night pharmacy. I faxed copies of MAR to night pharmacy to expidite the process, as these orders were written about 1.5 hours ago? 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 Pt Ox3, oriented to call button & hospital room, instructed to call nurse for any needs/concerns.
[2018-05-24] MEDS: SODIUM CHLORIDE 0.9% 1,000 ML 100 ML IV (23:45)
[2018-05-24] MEDS: DOCUSATE 100 MG CAPSULE PO (23:56)
[2018-05-25] VITALS (20 sets, daily range): BP systolic 94–129; BP diastolic 54–81; PULSE 73–90; RESP 16–20; TEMP 36.2–36.8; O2SAT 91–97
[2018-05-25] MEDS: AMITRIPTYLINE 25 MG TABLET PO (00:01)
[2018-05-25] MEDS: predniSONE 10 MG TABLET PO ×2 (00:03→08:28)
[2018-05-25] MEDS: ALBUTEROL 2.5 MG/3 ML NEB (ADULT) INH ×5 (00:03→19:30)
--- NOTE | 2018-05-25 01:40 | PC.NURSE ---
2300- Pt admit for increasing pain/tightness @ chronic trach site. CT completed downstairs. Pt on NPO diet at this time. When this RN entered room pt was not on cont SpO2; placed pulse ox on pt w/ sats reading 85%. Called RT, placed trach breathing collar w/ O2 supplied. RT in room given gregoria treatment as well. Pt's night meds had not been passed as well; gave 2100 meds as pt requested. Swallowed w/o difficulty. 0000- O2 remains in place w/ sats at 93%. 0600- Pt still CO tightness @ trach site, no physical changes noted. Trach collar w/ O2 remains in place.
[2018-05-25] MEDS: SODIUM CHLORIDE 0.9% 1,000 ML 100 ML IV ×2 (06:33→17:00)
[2018-05-25] MEDS: LEVOTHYROXINE 88 MCG TABLET PO (08:28)
[2018-05-25] MEDS: CITALOPRAM 20 MG TABLET 40 MG PO (08:28)
[2018-05-25] MEDS: ACETAMINOPHEN 325 MG TABLET PO ×2 (08:29→19:33)
[2018-05-25] MEDS: HYDROMORPHONE 1 MG INJ IV ×4 (09:48→21:08)
--- NOTE | 2018-05-25 15:37 | CM.DANOTE ---
Discharge Planning/Care Management DCP: assessment : Case received, EMR reviewed (and including pt's last admission to 03/27to 04/01 2018). Met then with pt. Introduced self and role. OF NOTE: pt communicates primarily by writing due to her long time tracheostomy and wound issues around same. She is clearly adept at this and is readily communicative. Pt is a 57 year old female who admitted to care of hospitalist team last night. PCP: Dr. Duy Cornell at [facility] clinic for primarily wound care (pt did go to the [facility] when Dr. Cornell was still working there.) Consulting: Dr. Hernandez/general surgery. Pt confirms that the plan is for EDG by Dr. Hernandez tomorrow. Pt lives with her significant other Andres Torres who does work in [employer]: [facility] [employer] Yard: [place] Pt has a JUAN case managers: Kimmy Cruz: [phone]. Pt does drive. Full dx and treatment plan are in process: DCP team will be following to assist with d/c issues and options as these arise. CM Discharge Assessment Start: 05/25/18 15:07 Freq: Status: Active Protocol: Document 05/25/18 15:07 ITV (Rec: 05/25/18 15:32 ITV [id number]) Discharge Planning Assessment Advance Directives? Yes History Provided By Patient Medical Record Prior Living Arrangements House Household Members significant other Comment lives with significant other: Andres: JR Torres :cell: Type of transporation used prior to Drives own vehicle admit Is patient alert and oriented? Yes: communicates primarily by writing. Whiteboard Updated in Patient Room with Yes name and ext. # of Healthcare Project Manager Review Status In Process Next Review Type Continued Stay Review
--- NOTE | 2018-05-25 15:40 | PC.NURSE ---
Plan: Advanced to clear liquids this morning. Will be NPO after midnight for EGD at noon tomorrow. Patient aware of the same and is agreeable. Wound care consult ordered and this aligner typewriter confirmed that they received the order. I was told that VLAD Salvador would be up this afternoon to assess and change dressing at Tracheostomy site. Able to make needs known and calls appropriately. Light in reach, bed alarm on.
--- NOTE | 2018-05-25 16:27 | PM.PN.1 ---
Subjective Date Patient Seen: 05/25/18 Interval history: The patient is a 57-year-old female well known to the hospitalist team was a history of COPD, chronic tracheostomy who presented with pain around her tracheal site. CT scan of the neck showed inflammation and possible mass near the esophageal tracheal junction. Plans are made for her to have an upper endoscopy for further evaluation. Today the patient continues to have significant pain. She is receiving IV pain medication as well as her usual home medications. General surgery has been consulted and will ask them to perform upper endoscopy to evaluate CT findings further. Exam Vital Signs (past 8 hours): - 05/25/18 08:35 05/25/18 08:45 05/25/18 10:27 Temperature Pulse Rate Respiratory Rate Blood Pressure Pulse Oximetry 92 94 91 05/25/18 10:41 05/25/18 11:46 05/25/18 12:00 Temperature 97.4 F L Pulse Rate 77 90 Respiratory Rate 18 16 Blood Pressure 106/61 Pulse Oximetry 93 95 94 05/25/18 12:47 05/25/18 15:32 Temperature Pulse Rate 89 Respiratory Rate 18 Blood Pressure Pulse Oximetry 95 91 Fraction of Inspired Oxygen 0.28 Oxygen Delivery Method Trach Collar Oxygen Flow Rate 6 Narrative Exam Narrative: Pleasant nonverbal female resting in some mild distress neck: Tracheostomy site evaluated. There is a palpable cord near the lower right portion of the trach site. Lungs: Diffuse wheezing bilaterally cardiac exam: Regular rate rhythm normal S1 and S2 abdomen: Soft and nontender extremities: No edema Objective Labs Result Diagrams: 05/24/18 14:55 05/24/18 14:55 Assessment & Plan Assessment & Plan narrative: ncreasing pain in the area surrounding the tracheostomy with evidence on CT scan of thickening in the esophagus possibly from neoplastic process or possibly from inflammation. Patient is having some difficulty with swallowing also but is having uncontrolled pain. She probably needs to have a upper endoscopy done. The patient will be placed on observation status and made NPO Given IV Dilaudid general surgery Dr. tee was consulted while the patient was in the emergency department she says is willing to consult on the patient wanted to the medicine service to admit the patient so we will admit her under observation status. She will be made NPO and await EGD tomorrow to get a defer definitive diagnosis hopefully. In the meantime place her on hydromorphone and consider other ways to treat her chronic pain. She had been on tramadol she also is allergic to hydrocodone and Percocet. There is some note in the chart that she had some nausea to fentanyl consider a fentanyl patch possibly. Await General Surgery consultation for EGD 2. Chronic wound around the tracheostomy site this is being followed by wound care Dr. dodd. He saw the patient today did not feel there is any active infection. 3. History of COPD she had an exacerbation about a month or so ago. Patient thinks that she is still taking prednisone but I am not certain that this is actually a current medication. We will try to get a more accurate list from the patient's family or caregivers 4. Code status the patient remains full code 5. DVT prophylaxis compression stockings for now she is relatively low risk and possibly will be going to surgery for EGD. Quality VTE Deep Vein Thrombosis/Pulmonary Embolism Present on Admission: No
--- NOTE | 2018-05-25 17:21 | PC.NURSE ---
Wound Care Nurse Consult Note Nai is known to me as I have taken care of her at the [facility] and I saw her here at her last admission. Her neck wound seem smaller. The right side of her neck measures 4.8 cm x 1.4 cm x.2. The wound has some slough. The danish-wound skin is intact. The Left neck wounds measures 2.1 cm x 0.6 cm by 0.1cm with 5% slough. The danish-wound skin is intact. I cleaned both wounds with Normal saline and took a photo. Then cut to fit an Adaptic, telfa and secured with a tagaderm. This is what Nai has been doing. I kept with the same treatment. I feel Nai would benefit from care at the [facility] for follow up treatment as we can use other modalities to promote healing.
--- NOTE | 2018-05-25 19:11 | PC.NURSE ---
Vivian shift note: Patient awake, and alert, making needs known on paper. Wound care nurse at bedside this evening (1630) for tracheostomy dressing change. Tracheostomy area, clean, dry with 4 x 4 dressing secured with Tegaderm to lateral sides of trachea. Minimal redness noted to surrounding area, no abnormal discharge. Patient c/o pain to site 9/10, adequate pain control with Dilaudid IV as ordered. Patient understands NPO status after midnight, for now tolerating clear diet. Continue with humidified tracheal collar tent at 6L .28 FIO2. Call light within reach.
--- NOTE | 2018-05-25 19:37 | PM.HP.1 ---
History of Present Illness Date Patient Seen: 05/25/18 Time Patient Seen: 08:32 Chief complaint: SHAKEY Narrative: Nai is a very pleasant and unfortunate 57 year old lady who is well known to our hospital and our staff. She has a personal history of laryngeal cancer treated at in 2009 with laryngectomy and radical neck dissection followed by mycutaneous reconstruction and finally radiation therapy. Since completing her treatment, she has had chronic issues with infection at the trach site and chronic pain. She has been followed at the wound care center and was seen there on the day of admission. She complained of uncontrolled pain and some difficulty swallowing. She was referred to the ED for evaluation for underlying infections process or other cause for her symptoms. CT scan was obtained that revealed circumferential thickening of the esophagus at the site of the trach. She was admitted to the hospitalist service for pain control and I have been consulted regarding a possible EGD. At present, Nai is resting and says her pain meds have been effective. She is thirsty and says she was expecting my visit. Patient History Medical History Tracheobronchitis (Chronic) Chronic pain (Acute) Community acquired pneumonia (Resolved) Tracheostomy complication (Acute) Otitis media, purulent, acute, with spontaneous rupture of TM (Resolved) MRSA (methicillin resistant Staphylococcus aureus) (Acute) Laryngeal cancer (Chronic) Social History household members: significant other Smoking Status: Former smoker alcohol intake: former Family & Social History Social History: Family history unavailable Yes household members significant other Prior Living Arrangements House Safety & Behavioral: Feels Safe in Current Yes Environment Been Physically Hurt or No Threatened By a Person Suicidal Ideation Description None Tobacco & Substance use: Smoking Status Former smoker alcohol intake former alcohol intake frequency 0-2 drinks per day Substance Use Type does not use Meds Home Medications Medication Instructions Recorded Confirmed Type albuterol sulfate 1 dose INHALATION QIDP PRN #180 01/25/16 05/24/18 History docusate sodium 100 mg PO BID #0 01/25/16 05/24/18 History ferrous gluconate 324 mg PO DAILY #0 08/28/16 05/25/18 History omeprazole 20 mg PO DAILY #0 08/28/16 05/25/18 History acetaminophen 325 mg PO Q6HP PRN #0 10/29/16 05/24/18 History amitriptyline 25 mg PO BEDTIME #0 01/22/17 05/25/18 History ascorbic acid (vitamin C) 500 mg PO DAILY #0 06/10/17 05/25/18 History fexofenadine 180 mg PO DAILY #0 06/10/17 05/24/18 History nystatin 1 dose PO DIRECTED #0 06/10/17 05/25/18 History sodium chloride 0.9 % 1 vial QID PRN #0 06/10/17 05/24/18 History citalopram 40 mg PO DAILY 09/21/17 05/24/18 History lisinopril 10 mg PO BID 09/21/17 05/24/18 History levothyroxine 1 tab PO DAILY 01/04/18 05/24/18 History prednisone 10 mg PO BID #10 tab 01/06/18 05/25/18 Rx estradiol 1 mg PO DAILY 01/25/18 05/24/18 History tramadol 50 mg PO Q6H PRN #10 tab 04/25/18 05/25/18 Rx gentamicin 1 applic TOPICAL DIRECTED 05/24/18 05/24/18 History meloxicam 15 mg PO DAILY 05/24/18 05/24/18 History Allergies Allergy/AdvReac Type Severity Reaction Status Date / Time hydrocodone Allergy Intermediate RASH/HIVES Verified 05/24/18 14:09 Penicillins Allergy Intermediate RASH/HIVES Verified 05/24/18 14:09 metronidazole Allergy Mild RASH Verified 05/24/18 14:09 diphenhydramine Allergy Unknown Verified 05/24/18 14:09 [DIPHENHYDRAMINE] ibuprofen Allergy Unknown Verified 05/24/18 14:09 oxycodone [OXYCODONE] Allergy Unknown Verified 05/24/18 14:09 venom-wasp Allergy Verified 05/24/18 14:09 ranitidine AdvReac Intermediate SOB/DIZZY Verified 05/24/18 14:09 sulfamethoxazole AdvReac Mild GI UPSET Verified 05/24/18 14:09 [From Bactrim] trimethoprim [From Bactrim] AdvReac Mild GI UPSET Verified 05/24/18 14:09 fentanyl [FENTANYL] AdvReac Unknown vomiting Verified 01/04/18 14:30 ANTACIDS AdvReac Unknown Uncoded 01/04/18 14:30 Review of Systems Review of Systems All systems reviewed & are unremarkable except as noted in HPI and below Exam Vital Signs (past 8 hours): - 05/25/18 11:46 05/25/18 12:00 05/25/18 12:47 Temperature 97.4 F L Pulse Rate 77 90 Respiratory Rate 18 16 Blood Pressure 106/61 Pulse Oximetry 95 94 95 05/25/18 15:32 05/25/18 16:00 05/25/18 19:30 Temperature 98.3 F Pulse Rate 89 87 83 Respiratory Rate 18 18 18 Blood Pressure 129/73 Pulse Oximetry 91 93 97 Fraction of Inspired Oxygen 28 Oxygen Delivery Method Trach Collar Oxygen Flow Rate 6 Narrative Exam Narrative: Very ill appearing lady who is quite sleepy Trach site is moist with elements of chronic radiation necrosis and scar. No obvious infection but the tissue is quite friable and tender. Lungs are clear with copious upper air way noise. HEENT: Pupils are equal and reactive Alert and oriented x 3 Objective Labs Result Diagrams: 05/24/18 14:55 05/24/18 14:55 Labs: [address] [address] [address] Scan Report Signed Patient: Nai Zeng MR#: [id number] : 1960 Acct:[id number] Age/Sex: 57 / F Date of Service: 05/24/18 Loc: ED Accession Number: [id number] Procedure: CT soft tissue neck w con Ordering Provider: Juan Ansari D.O. PROCEDURE: CT SOFT TISSUE NECK W CON INDICATIONS: increased pain at trach/stoma, sent by wound care TECHNIQUE: After the administration of intravenous contrast, 3.0 mm axial sections acquired from the sella to the aortic arch. Additional oblique axial 3.0 mm sections acquired through the pharynx. 3 mm thick coronal and sagittal reformats were generated. For radiation dose reduction, the following was used: automated exposure control. COMPARISON: [facility], CT, CT SOFT TISSUE NECK W CON, 11/04/2017, 11:41. [facility], CT, CT SOFT TISSUE NECK W CON, 03/27/2018, 13:37. FINDINGS: Image quality: Excellent. Lymph nodes: No enlarged lymph nodes seen throughout the neck. Vessels: Visualized vasculature appears patent. Atherosclerotic calcifications noted in the visualized left coronary vasculature, aorta and the great vessels. Neck spaces: Postsurgical changes compatible with prior laryngectomy, bilateral neck dissection and myocutaneous flap placement again noted in the neck which are stable compared to prior exams. A tracheostomy is stable compared to prior exams. No significant inflammatory changes noted adjacent to the tracheostomy site. There is circumferential wall thickening involving the lower cervical/upper thoracic esophagus the level of the tracheostomy. Glands: The parotid and submandibular glands appear normal. Thyroid gland is surgically absent. Miscellaneous: Visualized brain and orbits appear normal. Focal scarring in the medial aspect of the right lung apex is stable compared to prior exams. Patient is edentulous. Bones: No suspicious bony lesions. Visualized sinuses and mastoids appear unremarkable. IMPRESSION: 1. Extensive surgical changes stable compared to prior exams. 2. No abscess or significant inflammation noted adjacent to the tracheostomy site. 3. Circumferential wall thickening involving the lower cervical/upper thoracic esophagus at the level of the tracheostomy. Finding is nonspecific may represent inflammatory or neoplastic process. Recommend endoscopy for further evaluation. Dictated by: Zari Lee MD, PhD on 05/24/2018 at 16:10 Approved by: Zari Lee MD, PhD on 05/24/2018 at 16:23 Assessment & Plan Assessment & Plan narrative: Very unfortunate lady with a complex past medical history. We have limited ability to deal with this issue at our facility but we can offer and EGD to at least evaluate the esophageal tissue. I have discussed this with the patient along with its attendant risks and benefits and she has agreed to the procedure without reservation. It has been scheduled for tomorrow afternoon with Anesthesia Quality VTE Deep Vein Thrombosis/Pulmonary Embolism Present on Admission: No
[2018-05-25] MEDS: LISINOPRIL 10 MG TABLET PO ×2 (21:08)
[2018-05-25] MEDS: DOCUSATE 100 MG CAPSULE PO (21:08)
[2018-05-26] VITALS (23 sets, daily range): BP systolic 80–141; BP diastolic 45–84; PULSE 66–82; RESP 16–20; TEMP 36.1–37.2; O2SAT 92–100; BMI 35.9
--- NOTE | 2018-05-26 | PATH_ITS ---
[facility] Accession Number: [id number] . 01 Material submitted: . PROXIMAL ESOPHAGEAL BIOPSY . 02 Diagnosis: Proximal Esophagus, Biopsy: Columnar mucosa with ulcer and specialized intestinal metaplasia, consistent with Gerber's esophagus. Negative for fungal organisms on PAS stain. Negative for dysplasia or malignancy. V/05/28/2018 . 02 Electronically signed: . Unruly Diaz MD, PhD, Pathologist NPI- [id number] . 01 Gross description: . Received in one formalin-filled container, labeled with the patient's name and labeled proximal esophagus, are four 0.1-0.3 cm portions of tissue, entirely submitted in one cassette. ([id number]) /FRR . 02 Microscopic: . An AB/PAS stain is performed to evaluate for specialized intestinal metaplasia and highlights numerous goblet cells. There are no fungal organisms identified. A control stain shows expected reactivity. . 02 Pathologist provided ICD-10: K22.70 . 02 CPT . 833954, [id number] Performed at: 01 [facility] [address] [facility], [place], [place] [id number] MD Atul Kay MD Phone: [phone] Performed at: 02 [facility] [address] [place], [place] [id number] MD Gemma Cordero MD Phone: [phone]
[2018-05-26] MEDS: HYDROMORPHONE 1 MG INJ IV ×4 (00:08→13:54)
--- NOTE | 2018-05-26 02:04 | PC.NURSE ---
2300- Pt CO pain at trach site, writing that it feels swollen, asking for pain meds. Rhonchi lungs sounds on auscultation, pt has trach collar in place. Moving 1PA to BSC; voiding w/o difficulty. Pt aware of NPO status for planned EGD tomorrow. NS running as ordered into patent periph IV. 0010- IV Dilaudid given as ordered for 9/10 pain in the throat. 0100- Requesting RT deep suction her. RT present in room, changed inner cannula as well; pt saved the old one filled with sputum so the MD could view.
[2018-05-26] MEDS: ALBUTEROL 2.5 MG/3 ML NEB (ADULT) INH ×4 (04:29→19:04)
[2018-05-26] MEDS: LACTATED RINGERS 1,000 ML 42 ML IV (10:42)
--- NOTE | 2018-05-26 11:54 | P.OP_ITS ---
Operative Date/Time/Diagnoses Date of procedure: 05/26/18 Time of procedure: 11:50 Pre-op diagnosis: Esophageal thickening on CT Post-op diagnosis: same Procedure & Clinicians Procedure: Esophagoscopy with biopsies Same procedure as scheduled: Yes Indications: Personal history of laryngeal cancer with esophageal thickening on CT Surgeon: Trice Hernandez Click Yes if Unassisted: Yes Anesthesia Type: MAC +/- (Dr. Mercado) Operative Notes Findings: Proximal esophagitis with localized areas of ulceration and fibrinous exudate Closure Type: not applicable Specimen(s): none sent (Proximal esophagus-cold forceps mucosal biopsies) Estimated Blood Loss (mL): 1 Procedure in detail: After obtaining informed consent, the patient brought to the operating room and placed in the semi-Garcia's position. She received MAC anesthesia per Dr. Mercado. A time-out was held per [facility]AP protocol. The gastroscope was lubricated and gently placed in the patient's posterior oropharynx. We were able to identify the tracheal wall as well as the proximal esophagus. The mucosa at the site of the proximal esophagus was mildly irregular in appearance. There was no zahra hemorrhage here. Advancing into the proximal esophagus, the tissue was somewhat thickened and there were 2 areas of ulcera tion covered with fibrinous exudate. These areas were biopsied with cold forceps. The gastroscope was advanced to the level of the GE junction which was at 40 cm and essentially normal in appearance. The remainder of the esophagus beyond approximately 20 cm was normal in appearance. The scope was withdrawn and air aspirated from the patient's stomach. She tolerated the procedure well. She was allowed to return to the postanesthesia care unit in satisfactory condition. Complications: none Condition: stable Disposition: PACU Plan for aftercare: Return to acute care. Await biopsy results.
--- NOTE | 2018-05-26 14:00 | SUR.PHASEI ---
Stable pacu stay, suctioned via trach by darcie zayas x1 for small amount thick secretions. report called to conor and pt brought to room and left in stable condition.
[2018-05-26] MEDS: ACETAMINOPHEN 325 MG TABLET PO (17:28)
--- NOTE | 2018-05-26 17:55 | P.PN_ITS ---
Subjective Date Patient Seen: 05/26/18 Interval history: Nai Zeng is a 57-year-old female with a chronic trache ostomy and recurrent tracheobronchitis who presented with swelling in the right neck area. Patient underwent an EGD and interestingly enough this did not show any recurrent laryngeal cancer or any abnormality to explain the swelling or pain. Nai is able to eat. She does complain of productive cough with green phlegm. Otherwise she is back to her baseline. Exam Vital Signs (past 8 hours): - 05/26/18 10:38 05/26/18 10:43 05/26/18 11:11 Temperature 98.1 F Pulse Rate 70 70 Respiratory Rate 18 18 Blood Pressure 111/64 Pulse Oximetry 92 95 05/26/18 11:56 05/26/18 12:00 05/26/18 12:05 Temperature 97.2 F L Pulse Rate 79 78 81 Respiratory Rate 20 20 20 Blood Pressure 115/63 120/59 L 110/63 Pulse Oximetry 100 100 100 05/26/18 12:08 05/26/18 14:17 05/26/18 15:42 Temperature 98.0 F Pulse Rate 73 72 Respiratory Rate 20 16 Blood Pressure 128/71 Pulse Oximetry 99 93 94 05/26/18 15:55 05/26/18 17:11 05/26/18 17:34 Temperature 97.0 F L Pulse Rate 73 72 Respiratory Rate 18 18 Blood Pressure 93/49 L 98/46 L Pulse Oximetry 94 96 95 Fraction of Inspired Oxygen 0.28 Oxygen Delivery Method Trach Collar Oxygen Flow Rate 6 Narrative Exam Narrative: Chronically ill-appearing female in no obvious distress Trach: No exudate noted Lungs: Diffuse rhonchi Cardiac exam: Regular rate and rhythm normal S1 and S2 Abdomen: Soft nontender nondistended Extremities: No edema Objective Labs Result Diagrams: 05/24/18 14:55 05/24/18 14:55 Assessment & Plan (1) Intractable pain: Problem details: EGD today revealed no evidence of abnormality in the tracheoesophageal laryngeal area. Patient is back to her usual diet. Current visit: Yes Status: Acute (2) Hypothyroidism: Problem details: Hypothyroidism. Chronic. Present on admission. Continue her usual thyroid medication. Current visit: No Status: Acute (3) Hypertension: Problem details: Hypertension, chronic, present on admission. Will continue usual outpatient regimen. Current visit: No Status: Acute (4) COPD (chronic obstructive pulmonary disease): Problem details: COPD exacerbation, present on admission acute Will continue steroids nebulizer and breathing treatments Qualifiers: COPD type: unspecified COPD Chronic bronchitis type: Emphysema type: Qualified Code(s): J44.9 - Chronic obstructive pulmonary disease, unspecified Current visit: No Status: Acute (5) Bronchitis: Problem details: Given productive cough with green phlegm will start antibiotics. Current visit: No Status: Acute Assessment & Plan narrative: Anticipate discharge home tomorrow. Quality VTE Deep Vein Thrombosis/Pulmonary Embolism Present on Admission: No
[2018-05-26] MEDS: DOXYCYCLINE HYCLATE 100 MG TABLET PO (20:36)
[2018-05-26] MEDS: LISINOPRIL 10 MG TABLET PO (20:36)
[2018-05-26] MEDS: AMITRIPTYLINE 25 MG TABLET PO (20:37)
[2018-05-26] MEDS: predniSONE 10 MG TABLET PO (20:37)
[2018-05-26] MEDS: DOCUSATE 100 MG CAPSULE PO (20:37)
[2018-05-27 00:10] VITALS: BP 149/81; PULSE 72; RESP 18; TEMP 36.9; O2SAT 92
--- NOTE | 2018-05-27 01:40 | PM.EVENT ---
Date Patient Seen: 05/27/18 Time Patient Seen: 01:41 Complains of acute neck pain. Declines Tylenol. Has IV Dilaudid on chart, however possibly discharging tomorrow. Will give a 1 time dose of oral tramadol 50 mg. Patient has multiple allergies to opioid. Verified with patient, previously has taken tramadol in tolerated well.
--- NOTE | 2018-05-27 02:06 | PC.NURSE ---
Addendum entered by Ghada Mcginnis R.N. 05/27/18 05:58: Slept after receiving Tramadol. This morning indicates pain in neck is 7/10 so medicated as requested with Tylenol. Original Note: Patient is alert and oriented. Unable to speak due to trach but is able to communicate via writing/gesturing. Breath sounds with expiratory wheezing/rhonchi throughout and patient states she is coughing up dark green sputum. On oxygen at 6L/min per trach cuff with sat of 96%. Complaining of 10/10 neck pain so discussed options with both patient and ACCOUNTANT BUDGET; ACCOUNTANT BUDGET then ordered dose of Tramadol. HRR with elevated BP of 149/81. Denies nausea. BT present and abdomen is soft. Turns self in bed. Up to BSC with walker and 1 assist due to weakness; denies dysuria, frequency or urgency. Dressings around trach stoma; patient indicates she is seeing Dr Cornell for wound care. Has small amount brown drainage on dressing to left of stoma. Measured for JAZ stockings and applied. Fall risk score is high and bed alarm is activated.
[2018-05-27] MEDS: TRAMADOL 50 MG TABLET PO (02:25)
[2018-05-27] MEDS: LEVOTHYROXINE 88 MCG TABLET PO (05:53)
[2018-05-27 05:55] VITALS: BP 146/68; PULSE 69; RESP 18; TEMP 36.4; O2SAT 97
[2018-05-27] MEDS: ACETAMINOPHEN 325 MG TABLET PO (05:56)
[2018-05-27 05:58] VITALS: O2SAT 96
--- NOTE | 2018-05-27 08:00 | PM.DS.1 ---
History of Present Illness Date Patient Seen: 05/27/18 Chief complaint: SHAKEY Narrative: Nai is a very pleasant and unfortunate 57 year old lady who is well known to our hospital and our staff. She has a personal history of laryngeal cancer treated at in 2009 with laryngectomy and radical neck dissection followed by mycutaneous reconstruction and finally radiation therapy. Since completing her treatment, she has had chronic issues with infection at the trach site and chronic pain. She has been followed at the wound care center and was seen there on the day of admission. She complained of uncontrolled pain and some difficulty swallowing. She was referred to the ED for evaluation for underlying infections process or other cause for her symptoms. CT scan was obtained that revealed circumferential thickening of the esophagus at the site of the trach. She was admitted to the hospitalist service for pain control and I have been consulted regarding a possible EGD. At present, Nai is resting and says her pain meds have been effective. She is thirsty and says she was expecting my visit. Discharge Providers Date of admission: 05/24/18 20:23 Discharge Date: 05/27/18 Primary care physician: Eusebio Hammer MD Consults: 05/24/18 21:25 Consult to General Surgery Routine Comment: Consulting Provider: Trice Hernandez Reason for consultation: EGD for esopageal thickening on CT Has provider been notified: Yes 05/24/18 21:42 Consult to Respiratory Therapy Evaluate & Treat Comment: trach care Physician Instructions: Evaluate and treat 05/25/18 11:23 Consult to Wound Care Routine Comment: Please assess and change trach dressing Consulting Provider: Mary- Wound Care 05/26/18 14:18 Consult to Dietitian, Adult Routine Comment: needs help with dietary choices at home. Reason For Exam: Pt has trach and esophagities-[facility] soft diet. Discharge provider: Kimmy Harrison MD Summary Discharge Diagnosis: Esophageal Ulcers, present on admission History of Laryngeal Cancer s/p laryngectomy with radical neck dissection, followed by a myocutaneous flap and radiation therapy Chronic pain Tracheobronchitis Depression COPD Hypertension Hyperlipidemia Hospital Course: Patient was admitted to the hospital for evaluation of Neck pain. She had a CT which showed some thickening around the neck and was admitted for EGD. She underwent EGD with Dr. Hernandez which revealed the following: The mucosa at the site of the proximal esophagus was mildly irregular in appearance. There was no zahra hemorrhage here. Advancing into the proximal esophagus, the tissue was somewhat thickened and there were 2 areas of ulceration covered with fibrinous exudate. These areas were biopsied with cold forceps. The gastroscope was advanced to the level of the GE junction which was at 40 cm and essentially normal in appearance. The remainder of the esophagus beyond approximately 20 cm was normal in appearance. The scope was withdrawn and air aspirated from the patient's stomach. She tolerated the procedure well. She was allowed to return to the postanesthesia care unit in satisfactory condition. The patient's diet was advanced. She was placed on a proton pump inhibitor and carafate. She was deemed appropriate for discharge and discharged home. Exam Vital Signs (past 8 hours): - 05/27/18 00:10 05/27/18 05:55 05/27/18 05:58 Temperature 98.5 F 97.5 F L Pulse Rate 72 69 Respiratory Rate 18 18 Blood Pressure 149/81 H 146/68 H Pulse Oximetry 92 97 96 Fraction of Inspired Oxygen 28 Oxygen Delivery Method Trach Collar Oxygen Flow Rate 6 Narrative Exam Narrative: Pleasant female. She had significant pain last night and continues to have some pain today but hungry and ready to eat breakfast Lungs: decreased breath sounds with scattered wheezing CV: RRR nl Sl S2 2/7 JHON Abd: soft/ non tender/ non distended Ext: no edema Objective Labs Result Diagrams: 05/24/18 14:55 05/24/18 14:55 Discharge Plan Discharge Plan Discharge Problem: Esophagitis, Intractable pain Patient Disposition: Home Discharge Med Rec/Prescriptions Prescriptions: New pantoprazole 40 mg Tablet,Delayed Release (Dr/Ec) 40 mg PO 0700,2100 30 Days Qty: 60 RF: 0 sucralfate 100 mg/mL Suspension 1 gm PO Q6HR 30 Days RF: 0 doxycycline hyclate 100 mg Tablet 100 mg PO BID 6 Days Qty: 12 RF: 0 Continued albuterol sulfate 2.5 MG/3 ML solution for nebulization 1 dose Inhalation QIDP PRN (Reason: Shortness Of Breath) Qty: 180 RF: 0 docusate sodium 100 MG capsule 100 mg PO BID Qty: 0 RF: 0 ferrous gluconate 324 MG tablet 324 mg PO DAILY Qty: 0 RF: 0 acetaminophen 325 MG tablet 325 mg PO Q6HP PRN (Reason: Pain, Mild) Qty: 0 RF: 0 amitriptyline 25 MG tablet 25 mg PO BEDTIME Qty: 0 RF: 0 ascorbic acid (vitamin C) 500 MG tablet 500 mg PO DAILY Qty: 0 RF: 0 fexofenadine 180 MG tablet 180 mg PO DAILY Qty: 0 RF: 0 nystatin 100,000 UNIT/1 ML suspension 1 dose PO DIRECTED Qty: 0 RF: 0 sodium chloride 0.9 % 10 ML solution 1 vial QID PRN (Reason: irrigate tracheostomy) Qty: 0 RF: 0 citalopram 40 mg tablet 40 mg PO DAILY RF: 0 lisinopril 10 mg tablet 10 mg PO BID RF: 0 estradiol 1 mg tablet 1 mg PO DAILY RF: 0 tramadol 50 mg tablet 50 mg PO Q6H PRN (Reason: pain) Qty: 10 RF: 0 levothyroxine 88 mcg tablet 1 tab PO DAILY RF: 0 prednisone 20 mg tablet 10 mg PO BID Qty: 10 RF: 0 gentamicin 0.1 % ointment 1 applic topical DIRECTED RF: 0 Discontinued omeprazole 20 MG capsule,delayed release(DR/EC) 20 mg PO DAILY Qty: 0 RF: 0 meloxicam 15 mg tablet 15 mg PO DAILY RF: 0 Follow up/Referrals: Eusebio Hammer MD [Primary Care Provider] - Provider Discharge Instructions Diet: Diet as Tolerated Activity: as tolerated Discharge Data Primary Care Provider: Eusebio Hammer Attending Provider: Tai Ernst Admit Date/Time: 05/24/18 20:23 Quality VTE Deep Vein Thrombosis/Pulmonary Embolism Present on Admission: No
[2018-05-27 09:00] VITALS: BP 145/87; PULSE 69; RESP 18; TEMP 36.2; O2SAT 91
[2018-05-27 09:20] VITALS: O2SAT 96
[2018-05-27] MEDS: DOXYCYCLINE HYCLATE 100 MG TABLET PO (09:30)
[2018-05-27] MEDS: LISINOPRIL 10 MG TABLET PO (09:30)
[2018-05-27] MEDS: CITALOPRAM 20 MG TABLET 40 MG PO (09:30)
[2018-05-27] MEDS: DOCUSATE 100 MG CAPSULE PO (09:30)
[2018-05-27] MEDS: predniSONE 10 MG TABLET PO (09:30)
[2018-05-27] MEDS: PANTOPRAZOLE 40 MG TABLET PO (09:30)
[2018-05-27] MEDS: SUCRALFATE 1 GM/10 ML ORAL SUSP PO (09:31)
[2018-05-27 13:35] VITALS: BMI 36.5
--- NOTE | 2018-05-27 14:40 | PC.NURSE ---
Discharge Pt c/o pain in throat this AM. Medication not available at that time. Started on sucralafate and protonix which were provided, pt denied pain after admin of those meds. D/c instructions provided to pt. Aware to f/u with PCP and to contact them for any additional questions or concerns. One of the medications required authorization for insurance to cover. filled out form and awaiting authorization. Pt aware to f/u. Pt left in w/c with RN escort. Confirms she took all belongings with her.
== END 2018-05-27 13:30 | disposition home or self-care (01) | DRG 143 ==
LOC: ED 19:58 → AC 05-25 07:06
PROVIDERS: Surgery; Admitting Provider Internal Medicine; Emergency Provider Emergency Medicine; PCP Internal Medicine; Visit Provider Internal Medicine
PROC: 0DJ08ZZ Inspection of Upper Intestinal Tract, Via Natural or Artificial Opening Endoscopic (ICD-10-PCS; principal; 2018-05-26 15:00)
DX: J95.09 Other tracheostomy complication (principal); K22.10 Ulcer of esophagus without bleeding; G89.29 Other chronic pain; J44.9 Chronic obstructive pulmonary disease, unspecified; Z87.891 Personal history of nicotine dependence; Z85.21 Personal history of malignant neoplasm of larynx; E03.9 Hypothyroidism, unspecified; I10 Essential (primary) hypertension; J40 Bronchitis, not specified as acute or chronic; E78.5 Hyperlipidemia, unspecified
CPT/HCPCS: 36591; 43239; 70491; 80048; 82962; 85025; 94640; 94760; 94799; 96361; 96374; 96375; 96376; 99232; 99283; 99285; J1170; J2405; J2704; J7613; Q9967

== ENCOUNTER 2018-07-16 22:04 | Emergency (ER) | payer OTHER, MEDICAID, SELFPAY ==
[2018-05-24 22:04] VITALS: BMI 36.7
[2018-07-16 22:22] VITALS: BMI 33.9
[2018-07-16 22:45] VITALS: O2SAT 96
--- NOTE | 2018-07-16 22:57 | DI.RAD.S_ITS ---
PROCEDURE: XR CHEST 1V INDICATIONS: short of breath TECHNIQUE: One view of the chest was acquired. COMPARISON: [facility], CR, XR CHEST 1V, 04/25/2018, 18:23. [facility], CR, XR CHEST 2V, 02/16/2018, 23:00. [facility], CR, XR CHEST 1V, 03/27/2018, 12:32. [facility], CT, CT ANGIO CHEST PE PROTOCOL, 01/25/2018, 16:59. [facility], CT, CT ANGIO CHEST PE PROTOCOL, 07/17/2018, 3:44. FINDINGS: Surgical changes and devices: Neck postoperative clips and a tracheostomy tube and the seen. Lungs and pleura: An incomplete inspiratory result is noted, causing a crowded appearance to the lung markings. No focal infiltrates are seen. No pneumothorax or significant pleural effusions are seen. Mediastinum: The cardiac contours are within normal limits. The aorta demonstrates calcification and tortuosity. Bones and chest wall: Age-appropriate bony degenerative changes are seen. No suspicious bony lesions. Overlying soft tissues appear unremarkable. IMPRESSION: No acute cardiopulmonary process is seen. Postoperative and degenerative changes are seen. Dictated by: Colin Pinon M.D. on 07/17/2018 at 7:52 Approved by: Colin Pinon M.D. on 07/17/2018 at 7:53
--- NOTE | 2018-07-16 22:59 | RT ---
SPUTUM SENT TO LAB
[2018-07-16 23:29] VITALS: BP 114/63; PULSE 76; RESP 15; O2SAT 96
[2018-07-16 23:50] LABS: Add Manual Diff / Slide Review NO; Basophils Absolute Auto 100 /uL (0-100); Basophils Percent Auto 0.8 % (0-2); Eosinophils Absolute Auto 600 /uL (0-450); Eosinophils Percent Auto 6.4 % (2-4); Hematocrit 36.9 % (36-46); Hemoglobin 12.1 g/dL (12.0-16.0); Lymphocytes Absolute Auto 900 /uL (1100-4500); Lymphocytes Percent Auto 9.2 % (25-40); Mean Corpuscular HGB Conc 32.8 % (30-36); Mean Corpuscular Volume 91.5 fL (80-100); Monocytes Absolute Auto 1000 /uL (0-900); Neutrophils Absolute Auto 7200 /uL (1500-7000); Neutrophils Percent Auto 73.6 % (50-75); Platelet Count 267 X10^3/uL (150-400); Red Blood Cell Count 4.03 X10^6/uL (4.0-5.2); Red Cell Distribution Width 13.7 % (11.6-14.8); White Blood Cell Count 9.8 X10^3/uL (4.5-11.0)
[2018-07-16 23:58] LABS: Prothrombin Time 11.3 SECONDS (10.1-12.7)
[2018-07-17] VITALS (15 sets, daily range): BP systolic 109–135; BP diastolic 56–78; PULSE 71–87; RESP 14–18; O2SAT 87–95
[2018-07-17 00:01] LABS: PTT Partial Thromboplastin Tim 31 SECONDS (26.4-36.2)
[2018-07-17 00:02] LABS: Lactate (Lactic Acid) 0.7 mmol/L (0.7-2.1)
[2018-07-17 00:05] LABS: Alanine Aminotransferase 16 IU/L (9-52); Albumin 3.6 g/dL (3.5-5.0); Albumin Globulin Ratio 1.4 (1.0-2.8); Alkaline Phosphatase 64 U/L (38-126); Aspartate Aminotransferase 23 IU/L (14-36); Bilirubin Total 0.3 mg/dL (0.2-1.3); Blood Urea Nitrogen 14 mg/dL (7-17); Calcium 8.3 mg/dL (8.4-10.2); Carbon Dioxide 26 mmol/L (22-32); Chloride 103 mmol/L (98-107); Estimated Glomerular Filt Rate > 60.0 mL/min (>60); Globulin 2.5 g/dL (1.7-4.1); Glucose 91 mg/dL (70-100); HEMOLYSIS < 15 (0-50); Potassium 3.1 mmol/L (3.4-5.1); Sodium 138 mmol/L (137-145); Total Protein 6.1 g/dL (6.3-8.2)
[2018-07-17 00:22] LABS: Procalcitonin < 0.05 ng/mL (<0.5)
--- NOTE | 2018-07-17 00:47 | ED_ITS ---
HPI - SOB/Dyspnea General Chief Complaint: Shortness of Breath/Dyspnea Stated Complaint: shortness of breath Time Seen by Provider: 07/16/18 22:57 Mode of arrival: ambulatory Limitations: no limitations History of Present Illness Patient is a 57-year-old female chronic trach patient, presenting with increasing shortness of breath. She frequently has shortness of breath and infection. She has a wound around her trach which is being monitored by wound care. She feels like it is tightening up around her throat and is painful. She had similar complaints in May and she was found to have esophagitis She has had CTs of her neck in the past. She feels short of breath. She actually had quite a bit of sputum coming out of her trach is which is atypical for her. Respiratory rate is already suction her and has had gross thick sputum her out of her trach. Related Data Home Medications Medication Instructions Recorded Confirmed albuterol sulfate 1 dose INHALATION QIDP PRN #180 01/25/16 05/24/18 docusate sodium 100 mg PO BID #0 01/25/16 05/24/18 ferrous gluconate 324 mg PO DAILY #0 08/28/16 05/25/18 acetaminophen 325 mg PO Q6HP PRN #0 10/29/16 05/24/18 amitriptyline 25 mg PO BEDTIME #0 01/22/17 05/25/18 ascorbic acid (vitamin C) 500 mg PO DAILY #0 06/10/17 05/25/18 fexofenadine 180 mg PO DAILY #0 06/10/17 05/24/18 nystatin 1 dose PO DIRECTED #0 06/10/17 05/25/18 sodium chloride 0.9 % 1 vial QID PRN #0 06/10/17 05/24/18 citalopram 40 mg PO DAILY 09/21/17 05/24/18 lisinopril 10 mg PO BID 09/21/17 05/24/18 levothyroxine 1 tab PO DAILY 01/04/18 05/24/18 estradiol 1 mg PO DAILY 01/25/18 05/24/18 gentamicin 1 applic TOPICAL DIRECTED 05/24/18 05/24/18 Previous Rx's Medication Instructions Recorded prednisone 10 mg PO BID #10 tab 01/06/18 tramadol 50 mg PO Q6H PRN #10 tab 04/25/18 omeprazole 40 mg PO BID #60 cap 05/27/18 levofloxacin [Levaquin] 750 mg PO DAILY #7 tab 07/17/18 tramadol 50 mg PO Q6H PRN #10 tab 07/17/18 Allergies Allergy/AdvReac Type Severity Reaction Status Date / Time hydrocodone Allergy Intermediate RASH/HIVES Verified 05/24/18 14:09 Penicillins Allergy Intermediate RASH/HIVES Verified 05/24/18 14:09 metronidazole Allergy Mild RASH Verified 05/24/18 14:09 diphenhydramine Allergy Unknown Verified 05/24/18 14:09 [DIPHENHYDRAMINE] ibuprofen Allergy Unknown Verified 05/24/18 14:09 oxycodone [OXYCODONE] Allergy Unknown Verified 05/24/18 14:09 venom-wasp Allergy Verified 05/24/18 14:09 ranitidine AdvReac Intermediate SOB/DIZZY Verified 05/24/18 14:09 sulfamethoxazole AdvReac Mild GI UPSET Verified 05/24/18 14:09 [From Bactrim] trimethoprim [From Bactrim] AdvReac Mild GI UPSET Verified 05/24/18 14:09 fentanyl [FENTANYL] AdvReac Unknown vomiting Verified 01/04/18 14:30 ANTACIDS AdvReac Unknown Uncoded 01/04/18 14:30 Review of Systems Review of Systems ROS Unobtainable: All systems reviewed & are unremarkable except as noted in HPI and below Constitutional Denies chills, Denies fever(s), Denies lethargy and Denies weakness Eyes Denies change in vision, Denies eye discharge, Denies irritation and Denies loss of vision ENT Comments: neck tightness Cardiovascular Denies chest pain, Denies irregular heart rhythm, Denies lightheadedness, Denies palpitations, Denies dyspnea and Denies orthopnea Respiratory Reports cough, Denies dyspnea, Denies stridor and Reports wheezing Gastrointestinal Gastrointestinal: Denies abdominal pain, Denies change in bowel habits, Denies diarrhea, Denies nausea and Denies vomiting Genitourinary Denies hematuria, Denies flank pain, Denies urinary incontinence and Denies urinary urgency Musculoskeletal Denies back pain, Denies muscle weakness, Denies numbness and Denies tingling Integumentary/Breasts Denies pruritus, Denies erythema, Denies rash and Denies wounds Neurologic Denies loss of vision, Denies numbness, Denies tingling and Denies weakness Endocrine Denies palpitations Allergic/Immunologic Reports wheezing [facility] Medical History Tracheobronchitis (Chronic) Chronic pain (Acute) Community acquired pneumonia (Resolved) Tracheostomy complication (Acute) Otitis media, purulent, acute, with spontaneous rupture of TM (Resolved) MRSA (methicillin resistant Staphylococcus aureus) (Acute) Laryngeal cancer (Chronic) Social History household members: significant other Smoking Status: Former smoker alcohol intake: former Social History household members: significant other Smoking Status: Former smoker alcohol intake: former Exam Initial Vital Signs Initial Vital Signs: Vital Signs Pulse Oximetry 96 07/16/18 22:45 GENERAL: Alert female and in [no acute] distress. HEENT: Head atraumatic,EOMI, pupils reactive, trach site present. She does have some chronic chronic wounds but they seem to be healing. CARDIOVASCULAR: Regular rate and rhythm without murmurs, rubs or gallops. RESPIRATORY: Breath sounds equal bilaterally, no wheezes rales or rhonchi. ABDOMEN: Soft, nontender. Normoactive bowel sounds all 4 quadrants. No guarding or rebound. EXTREMITIES: Normal range of motion, no clubbing or edema. Neurovascularly intact NEUROLOGICAL: Alert and oriented x4.Normal gait and speech. Cranial nerves II through XII grossly intact. SKIN: Warm, dry, no laceration, no petechiae, no rashes or lesions. Course Orders Ordered: ED Orders 07/16/18 22:57 XR chest 1V Stat 07/16/18 23:45 Complete Blood Count AUTO DIFF Stat Comprehensive Metabolic Panel Stat Lactate (Lactic Acid) Stat Partial Thromboplastin Time Stat Procalcitonin Stat Prothrombin Time INR Stat 07/16/18 23:49 Sputum Culture Stat 07/17/18 03:32 CT angio chest PE protocol Stat Discontinued Medications Albuterol/Ipratropium (Duoneb) 3 ml INH NOW ONE Stop: 07/17/18 02:58 Last Admin: 07/17/18 02:58 Dose: 3 ml Levofloxacin (Levaquin) 750 mg PO NOW ONE Stop: 07/17/18 03:15 Last Admin: 07/17/18 03:45 Dose: 750 mg Pantoprazole Sodium (Protonix) 40 mg IV NOW ONE Stop: 07/17/18 02:44 Last Admin: 07/17/18 03:46 Dose: 40 mg Tramadol HCl (Ultram) 50 mg PO NOW ONE Stop: 07/17/18 01:43 Last Admin: 07/17/18 01:47 Dose: 50 mg Vital Signs - 8 hr 07/16/18 23:29 07/17/18 00:41 07/17/18 01:30 Pulse Rate 76 78 85 Respiratory Rate 15 18 18 Blood Pressure [Left Arm] 114/63 112/56 L 109/75 Pulse Oximetry 96 95 91 07/17/18 01:54 07/17/18 02:00 07/17/18 02:30 Pulse Rate 83 78 79 Respiratory Rate 14 16 18 Blood Pressure [Left Arm] 118/61 121/78 Pulse Oximetry 95 89 L 07/17/18 02:58 07/17/18 03:00 07/17/18 03:22 Pulse Rate 78 79 Respiratory Rate 15 17 14 Blood Pressure [Left Arm] 135/64 Pulse Oximetry 92 92 93 07/17/18 03:30 07/17/18 04:00 07/17/18 04:30 Pulse Rate 79 77 74 Respiratory Rate 17 17 17 Blood Pressure [Left Arm] 116/57 L Pulse Oximetry 89 L 92 87 L 07/17/18 05:00 07/17/18 05:40 Pulse Rate 87 77 Respiratory Rate 16 16 Blood Pressure [Left Arm] 129/65 Pulse Oximetry 87 L 94 MDM - SOB/Dyspnea Lab Data Attestation: I reviewed the patient's lab results. Result diagrams: 07/16/18 23:45 07/16/18 23:45 Lab Results 07/16/18 07/16/18 07/16/18 Range/Units 23:45 23:45 23:45 WBC 9.8 (4.5-11.0) X10^3/uL RBC 4.03 (4.0-5.2) X10^6/uL Hgb 12.1 (12.0-16.0) g/dL Hct 36.9 (36-46) % MCV 91.5 (80-100) fL MCH 30.0 (26-34) PG MCHC 32.8 (30-36) % RDW 13.7 (11.6-14.8) % Plt Count 267 (150-400) X10^3/uL Neut % (Auto) 73.6 (50-75) % Lymph % (Auto) 9.2 L (25-40) % Borden % (Auto) 10.0 (3-14) % Eos % (Auto) 6.4 H (2-4) % Baso % (Auto) 0.8 (0-2) % Neut # (Auto) 7200 H (8037-7469) /uL Lymph # (Auto) 900 L (4107-7963) /uL Borden # (Auto) 1000 H (0-900) /uL Eos # (Auto) 600 H (0-450) /uL Baso # (Auto) 100 (0-100) /uL PT 11.3 (10.1-12.7) SECONDS INR 1.0 (0.9-1.3) APTT 31 (26.4-36.2) SECONDS Sodium (137-145) mmol/L Potassium (3.4-5.1) mmol/L Chloride (98-107) mmol/L Carbon Dioxide (22-32) mmol/L BUN (7-17) mg/dL Creatinine (0.52-1.04) mg/dL Estimated GFR (>60) mL/min BUN/Creatinine Ratio (6-22) Glucose (70-100) mg/dL Lactate (0.7-2.1) mmol/L Calcium (8.4-10.2) mg/dL Total Bilirubin (0.2-1.3) mg/dL AST (14-36) IU/L ALT (9-52) IU/L Alkaline Phosphatase (38-126) U/L Total Protein (6.3-8.2) g/dL Albumin (3.5-5.0) g/dL Globulin (1.7-4.1) g/dL Albumin/Globulin Ratio (1.0-2.8) Procalcitonin < 0.05 (<0.5) ng/mL 07/16/18 07/16/18 Range/Units 23:45 23:45 WBC (4.5-11.0) X10^3/uL RBC (4.0-5.2) X10^6/uL Hgb (12.0-16.0) g/dL Hct (36-46) % MCV (80-100) fL MCH (26-34) PG MCHC (30-36) % RDW (11.6-14.8) % Plt Count (150-400) X10^3/uL Neut % (Auto) (50-75) % Lymph % (Auto) (25-40) % Borden % (Auto) (3-14) % Eos % (Auto) (2-4) % Baso % (Auto) (0-2) % Neut # (Auto) (0472-9213) /uL Lymph # (Auto) (7926-8227) /uL Borden # (Auto) (0-900) /uL Eos # (Auto) (0-450) /uL Baso # (Auto) (0-100) /uL PT (10.1-12.7) SECONDS INR (0.9-1.3) APTT (26.4-36.2) SECONDS Sodium 138 (137-145) mmol/L Potassium 3.1 L (3.4-5.1) mmol/L Chloride 103 (98-107) mmol/L Carbon Dioxide 26 (22-32) mmol/L BUN 14 (7-17) mg/dL Creatinine 0.70 (0.52-1.04) mg/dL Estimated GFR > 60.0 (>60) mL/min BUN/Creatinine Ratio 20.0 (6-22) Glucose 91 (70-100) mg/dL Lactate 0.7 (0.7-2.1) mmol/L Calcium 8.3 L (8.4-10.2) mg/dL Total Bilirubin 0.3 (0.2-1.3) mg/dL AST 23 (14-36) IU/L ALT 16 (9-52) IU/L Alkaline Phosphatase 64 (38-126) U/L Total Protein 6.1 L (6.3-8.2) g/dL Albumin 3.6 (3.5-5.0) g/dL Globulin 2.5 (1.7-4.1) g/dL Albumin/Globulin Ratio 1.4 (1.0-2.8) Procalcitonin (<0.5) ng/mL Imaging Data Chest x-ray: Attestation: I personally reviewed and interpreted this imaging study as follows: My impression: No acute cardiopulmonary process CT scan - chest: 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 Tracheostomy post thyroidectomy MDM Narrative Medical decision making narrative: Patient appears comfortable asking for pain medication for something around her neck. She is given tramadol which actually does seem to help. Her oxygen levels do all fluctuate between the high 80s and 90s. She never appears to be in any distress. she is given bronchodilator which also seems to help some although her lungs themselves sounds clear. She ruled out for PE. She states that she has oxygen at home which sometimes she uses. Due to her thickening sputum I will put her on Levaquin she has previously on doxycycline. And I will give her tramadol for pain. At this time she feels ready and able to go home. Discharge Plan Departure Patient Disposition: Home Clinical Impression: COPD (chronic obstructive pulmonary disease) Qualifiers: COPD type: chronic bronchitis Chronic bronchitis type: unspecified Qualified Code(s): J42 - Unspecified chronic bronchitis Instructions: Chronic Obstructive Pulmonary Disease Activity Restrictions/Additional Instructions: *You have been diagnosed with COPD, pain at trach site *What to do: At this time take antibiotic start tomorrow your given her 1st dose of antibiotics in the ER. *Continue to take medications as directed Levaquin 750 mg once daily for 7 days Tramadol 1 tablet every 6 hours only if needed for severe pain *Follow up with your primary care provider in 2-3 days *Return to ER if you should have increasing shortness of breath, fever, weakness or any new, worsening or concerning symptoms Prescriptions: New tramadol 50 mg tablet 50 mg PO Q6H PRN (Reason: pain) Qty: 10 RF: 0 levofloxacin [Levaquin] 750 mg tablet 750 mg PO DAILY Qty: 7 RF: 0 No Action albuterol sulfate 2.5 MG/3 ML solution for nebulization 1 dose Inhalation QIDP PRN (Reason: Shortness Of Breath) Qty: 180 RF: 0 docusate sodium 100 MG capsule 100 mg PO BID Qty: 0 RF: 0 ferrous gluconate 324 MG tablet 324 mg PO DAILY Qty: 0 RF: 0 acetaminophen 325 MG tablet 325 mg PO Q6HP PRN (Reason: Pain, Mild) Qty: 0 RF: 0 amitriptyline 25 MG tablet 25 mg PO BEDTIME Qty: 0 RF: 0 ascorbic acid (vitamin C) 500 MG tablet 500 mg PO DAILY Qty: 0 RF: 0 fexofenadine 180 MG tablet 180 mg PO DAILY Qty: 0 RF: 0 nystatin 100,000 UNIT/1 ML suspension 1 dose PO DIRECTED Qty: 0 RF: 0 sodium chloride 0.9 % 10 ML solution 1 vial QID PRN (Reason: irrigate tracheostomy) Qty: 0 RF: 0 citalopram 40 mg tablet 40 mg PO DAILY RF: 0 lisinopril 10 mg tablet 10 mg PO BID RF: 0 estradiol 1 mg tablet 1 mg PO DAILY RF: 0 tramadol 50 mg tablet 50 mg PO Q6H PRN (Reason: pain) Qty: 10 RF: 0 levothyroxine 88 mcg tablet 1 tab PO DAILY RF: 0 prednisone 20 mg tablet 10 mg PO BID Qty: 10 RF: 0 gentamicin 0.1 % ointment 1 applic topical DIRECTED RF: 0 omeprazole 40 mg capsule,delayed release(DR/EC) 40 mg PO BID Qty: 60 RF: 0 Referrals: Eusebio Hammer MD [Primary Care Provider] -
--- NOTE | 2018-07-17 01:41 | PC.NURSE ---
Pt calling to request pain medication on her neck tightness/discomfort and wanting to be suctions on Trache tube. Informed Dr. Granado and obtaining Tramadol
[2018-07-17] MEDS: TRAMADOL 50 MG TABLET PO (01:47)
[2018-07-17] MEDS: ALBUTEROL/IPRATROPIUM 3 ML AMPUL INH (02:58)
--- NOTE | 2018-07-17 03:32 | DI.CT.S_ITS ---
PROCEDURE: CT ANGIO CHEST PE PROTOCOL INDICATIONS: hypoxia, recent admission TECHNIQUE: After the administration of intravenous contrast, 2 mm thick sections acquired from the pulmonary apices to the posterior costophrenic angles. 3-dimensional maximum intensity projection (MIP) coronal and sagittal reformats were then acquired through the thorax. For radiation dose reduction, the following was used: automated exposure control, adjustment of mA and/or kV according to patient size. COMPARISON: [facility], CT, CHEST/ABDOMEN WITHOUT CONTRAST, 02/26/2015, 9:34. [facility], CR, XR CHEST 1V, 07/16/2018, 23:22. [facility], CT, CT SOFT TISSUE NECK W CON, 05/24/2018, 15:41. [facility], CT, CT ANGIO CHEST PE PROTOCOL, 01/25/2018, 16:59. FINDINGS: Image quality: Excellent. Pulmonary arteries: Pulmonary arteries are normal in size, and demonstrate no intraluminal filling defects to suggest central pulmonary embolism. Lungs and pleura: Lungs are clear. Narrowing of the mainstem bronchi can be seen. No pleural effusions or pneumothorax. Central and peripheral airways are patent. Mediastinum: Heart size is normal, without pericardial effusion. Coronary artery calcifications are seen. No mediastinal or hilar adenopathy. Thoracic aorta is normal in caliber and enhancement. Esophagus is normal in caliber. There is a small hiatal hernia. Bones and chest wall: No suspicious bony lesions. A stable anterior wedge deformity of L1 can be seen. Ribs appear intact throughout. Thyroid gland has been removed. There is a tracheostomy tube seen, with postoperative changes of the neck partially seen. No axillary or supraclavicular adenopathy. Abdomen: Mild prominence of helen hepatis lymph nodes can be seen. Visualized upper abdominal solid organs appear normal in the early arterial phase of enhancement. IMPRESSION: Negative for pulmonary embolism. Narrowing of the mainstem bronchi can be seen. Mild prominence of helen hepatis lymph nodes can be seen. Incidental note is made of: Neck postoperative changes with tracheostomy tube Thyroidectomy Coronary artery calcifications Small hiatal hernia Stable L1 anterior wedge deformity Note: No significant discrepancy from the preliminary report. Dictated by: Colin Pinon M.D. on 07/17/2018 at 7:38 Approved by: Colin Pinon M.D. on 07/17/2018 at 7:44
[2018-07-17] MEDS: levoFLOXacin 250 MG TABLET 750 MG PO (03:45)
[2018-07-17] MEDS: PANTOPRAZOLE 40 MG VIAL IV (03:46)
== END 2018-07-17 07:16 | disposition home or self-care (01) ==
PROVIDERS: Emergency Provider Emergency Medicine; PCP Internal Medicine
DX: J44.9 Chronic obstructive pulmonary disease, unspecified (principal)
CPT/HCPCS: 36591; 71045; 71275; 80053; 83605; 84145; 85025; 85610; 85730; 87040; 87070; 87077; 87186; 87205; 94640; 96374; 99284; 99285; C9113; Q9967

== ENCOUNTER 2018-07-30 15:37 | Emergency (ER) | payer OTHER, MEDICAID, SELFPAY ==
[2018-05-24 22:04] VITALS: BMI 36.7
[2018-07-30] VITALS (8 sets, daily range): BP systolic 102–149; BP diastolic 61–90; PULSE 73–89; RESP 13–21; TEMP 36.6; O2SAT 92–100; BMI 33.9
--- NOTE | 2018-07-30 16:10 | DI.RAD.S_ITS ---
PROCEDURE: XR CHEST 1V INDICATIONS: shortness of breath TECHNIQUE: One view of the chest was acquired. COMPARISON: [facility], CR, XR CHEST 1V, 04/25/2018, 18:23. [facility], CT, CT ANGIO CHEST PE PROTOCOL, 07/17/2018, 3:44. [facility], CR, XR CHEST 1V, 07/16/2018, 23:22. FINDINGS: Surgical changes and devices: Multiple surgical clips in the lower neck.. Lungs and pleura: Lungs are clear. No pleural effusions or pneumothorax. Right hemidiaphragm eventration is noted. Mediastinum: Mediastinal contours appear normal. Heart size is normal. Bones and chest wall: No suspicious bony lesions. Overlying soft tissues appear unremarkable. IMPRESSION: No acute cardiopulmonary disease. Dictated by: Selena Vincent M.D. on 07/30/2018 at 16:37 Approved by: Selena Vincent M.D. on 07/30/2018 at 16:39
--- NOTE | 2018-07-30 16:18 | ED.SOB ---
HPI - SOB/Dyspnea General Chief Complaint: Shortness of Breath/Dyspnea Stated Complaint: low sats, resp distress. Time Seen by Provider: 07/30/18 16:16 Source: patient, EMS and old records reviewed Mode of arrival: EMS Limitations: no limitations (has trach, speaks with trach or writes on paper ) History of Present Illness 57-year-old female comes emergency department with respiratory distress and difficulty breathing. Patient was walking she had what she described as a syncopal episode she did hit her head. Complaint headache. Patient states that that it is hard for her to breathe and feels very tight in her throat. She has had this problem multiple times in the past. There was report of low O2 in the field but here patient's oxygen has been in the 90s. She does have some thick tenacious sputum from her trach. No blood. Patient has not had fevers. She is not having any chest pain. She does have little bit of a headache. No vomiting. No other GI or urinary symptoms. Patient has seen a surgeon [facility] and there is some discussion about having some surgery regarding the area around her trach. This is scheduled for 1-2 months now. Related Data Home Medications Medication Instructions Recorded Confirmed albuterol sulfate 1 dose INHALATION QIDP PRN #180 01/25/16 07/30/18 docusate sodium 100 mg PO BID #0 01/25/16 05/24/18 ferrous gluconate 324 mg PO DAILY #0 08/28/16 05/25/18 acetaminophen 325 mg PO Q6HP PRN #0 10/29/16 05/24/18 amitriptyline 25 mg PO BEDTIME #0 01/22/17 05/25/18 ascorbic acid (vitamin C) 500 mg PO DAILY #0 06/10/17 05/25/18 fexofenadine 180 mg PO DAILY #0 06/10/17 07/30/18 nystatin 1 dose PO DIRECTED #0 06/10/17 05/25/18 sodium chloride 0.9 % 1 vial QID PRN #0 06/10/17 07/30/18 citalopram 40 mg PO DAILY 09/21/17 07/30/18 lisinopril 10 mg PO BID 09/21/17 05/24/18 levothyroxine 1 tab PO DAILY 01/04/18 07/30/18 estradiol 1 mg PO DAILY 01/25/18 07/30/18 gentamicin 1 applic TOPICAL DIRECTED 05/24/18 07/30/18 omeprazole 40 mg PO DAILY 07/30/18 07/30/18 Previous Rx's Medication Instructions Recorded prednisone 10 mg PO BID #10 tab 01/06/18 levofloxacin [Levaquin] 750 mg PO DAILY #7 tab 07/17/18 tramadol 50 mg PO Q6H PRN #10 tab 07/17/18 levofloxacin [Levaquin] 750 mg PO DAILY #6 tab 07/30/18 tramadol 50 mg PO Q6H PRN #10 tab 07/30/18 Allergies Allergy/AdvReac Type Severity Reaction Status Date / Time hydrocodone Allergy Intermediate RASH/HIVES Verified 07/30/18 16:10 Penicillins Allergy Intermediate RASH/HIVES Verified 07/30/18 16:10 metronidazole Allergy Mild RASH Verified 07/30/18 16:10 diphenhydramine Allergy Unknown Verified 07/30/18 16:10 [DIPHENHYDRAMINE] ibuprofen Allergy Unknown Verified 07/30/18 16:10 oxycodone [OXYCODONE] Allergy Unknown Verified 07/30/18 16:10 venom-wasp Allergy Verified 07/30/18 16:10 ranitidine AdvReac Intermediate SOB/DIZZY Verified 07/30/18 16:10 sulfamethoxazole AdvReac Mild GI UPSET Verified 07/30/18 16:10 [From Bactrim] trimethoprim [From Bactrim] AdvReac Mild GI UPSET Verified 07/30/18 16:10 fentanyl [FENTANYL] AdvReac Unknown vomiting Verified 07/30/18 16:10 ANTACIDS AdvReac Unknown Uncoded 07/30/18 16:10 Review of Systems Review of Systems ROS Unobtainable: All systems reviewed & are unremarkable except as noted in HPI and below Constitutional Denies chills, Denies fever(s), Reports headache(s), Denies lethargy and Denies weakness ENT Ears, Nose, Mouth, and Throat: Reports headache(s) and Reports throat swelling (Side on trach feels swollen, difficulty to breathe) Cardiovascular Denies chest pain, Denies diaphoresis, Reports syncope, Denies edema, Reports dyspnea and Reports dyspnea on exertion Respiratory Denies chest congestion, Reports cough, Reports dyspnea, Reports dyspnea on exertion and Reports wheezing Gastrointestinal Gastrointestinal: Denies abdominal pain, Denies change in bowel habits, Denies diarrhea, Denies nausea and Denies vomiting Genitourinary Denies hematuria, Denies dysuria, Denies flank pain and Denies urinary urgency Integumentary/Breasts Reports other (scar tissue around neck.) Neurologic Reports syncope, Reports headache(s) and Denies weakness Allergic/Immunologic Reports throat swelling (Side on trach feels swollen, difficulty to breathe) and Reports wheezing [facility] Tracheobronchitis (Chronic) Chronic pain (Acute) Community acquired pneumonia (Resolved) Tracheostomy complication (Acute) Otitis media, purulent, acute, with spontaneous rupture of TM (Resolved) MRSA (methicillin resistant Staphylococcus aureus) (Acute) Laryngeal cancer (Chronic) Social History household members: significant other Smoking Status: Former smoker alcohol intake: former Social History household members: significant other Smoking Status: Former smoker alcohol intake: former Exam Narrative Exam Narrative: GEN: well nourished, female, alert and oriented x 3, patient appears to be in moderate distress. Appears anxious. HEENT: Small abrasion on right forehead, small hematoma, pupils are equal round reactive to light, extraocular movements are intact, nares are clear, patient has a trach, there is scar tissue surrounding that appears similar to past visits in the emergency department. Patient has a little bit thick tenacious yellowish sputum. No stridor but patient does have sort of a wet sound with coughing and breathing through trach. Nontender on neck. Full range of motion although patient prefers to keep herself slightly flexed which is typical based on past visits and her issues with her tracheostomy. No complaint of neck pain. HEART: Regular rate and rhythm without murmur, clicks, rubs. Pulses are equal in upper extremities LUNGS:Lungs coarse bilaterally, breath sounds equal bilateral, no wheezes, rales, crackles, chest moves symmetrically, no tachypnea. When patient starts coughing she does have a lot of difficulty and feels very uncomfortable and seems quite anxious. ABD:bowel sounds normal, soft, non-tender, no guarding, rebound, rigidity, no masses noted, no hepatosplenomegaly MSCL: Non-tender, no muscle atrophy, muscles strength 5/5 upper and lower extremities, full range of motion, normal gait NEURO:CN 2-12 intact, sensation normal Initial Vital Signs Initial Vital Signs: Vital Signs Pulse Rate 88 07/30/18 16:10 Respiratory Rate 13 07/30/18 16:10 Blood Pressure 149/90 H 07/30/18 16:10 Pulse Oximetry 96 07/30/18 16:10 Course Orders Ordered: ED Orders 07/30/18 16:09 Measure peak expiratory flow ONCE RT Consult Eval and Treat Now 07/30/18 16:10 XR chest 1V Stat 07/30/18 16:51 EKG-12 Lead Stat 07/30/18 16:54 CT soft tissue neck w con Stat 07/30/18 17:35 Complete Blood Count AUTO DIFF Stat Comprehensive Metabolic Panel Stat Lactate (Lactic Acid) Stat 07/30/18 18:49 XR knee RT 1to2V Stat Discontinued Medications Albuterol/Ipratropium (Duoneb) 3 ml INH NOW ONE Stop: 07/30/18 18:18 Last Admin: 07/30/18 16:35 Dose: 3 ml Hydromorphone HCl (Dilaudid) 0.5 mg IV NOW ONE Stop: 07/30/18 19:47 Levofloxacin (Levaquin) 750 mg PO NOW ONE Stop: 07/30/18 19:47 Lorazepam (Ativan) 1 mg IV NOW ONE Stop: 07/30/18 16:55 Last Admin: 07/30/18 17:08 Dose: 1 mg Vital Signs - 8 hr 07/30/18 16:10 07/30/18 16:30 07/30/18 16:35 Temperature 97.8 F Pulse Rate 88 89 88 Respiratory Rate 13 18 16 Blood Pressure 149/90 H Blood Pressure [Right Arm] Pulse Oximetry 96 92 92 07/30/18 17:46 Temperature Pulse Rate 83 Respiratory Rate 16 Blood Pressure Blood Pressure [Right Arm] 118/71 Pulse Oximetry 100 MDM - SOB/Dyspnea Lab Data Attestation: I reviewed the patient's lab results. Result diagrams: 07/30/18 17:35 07/30/18 17:35 Lab Results 07/30/18 07/30/18 07/30/18 Range/Units 17:35 17:35 17:35 WBC 18.5 H (4.5-11.0) X10^3/uL RBC 4.08 (4.0-5.2) X10^6/uL Hgb 12.4 (12.0-16.0) g/dL Hct 37.4 (36-46) % MCV 91.8 (80-100) fL MCH 30.5 (26-34) PG MCHC 33.2 (30-36) % RDW 13.9 (11.6-14.8) % Plt Count 254 (150-400) X10^3/uL Neut % (Auto) 91.5 H (50-75) % Lymph % (Auto) 3.2 L (25-40) % [place] % (Auto) 4.1 (3-14) % Eos % (Auto) 1.0 L (2-4) % Baso % (Auto) 0.2 (0-2) % Neut # (Auto) 82212 H (9511-4654) /uL Lymph # (Auto) 600 L (9681-9255) /uL [place] # (Auto) 800 (0-900) /uL Eos # (Auto) 200 (0-450) /uL Baso # (Auto) 0 (0-100) /uL Sodium 137 (137-145) mmol/L Potassium 4.8 (3.4-5.1) mmol/L Chloride 103 (98-107) mmol/L Carbon Dioxide 29 (22-32) mmol/L BUN 17 (7-17) mg/dL Creatinine 0.60 (0.52-1.04) mg/dL Estimated GFR > 60.0 (>60) mL/min BUN/Creatinine Ratio 28.3 H (6-22) Glucose 99 (70-100) mg/dL Lactate 0.9 (0.7-2.1) mmol/L Calcium 7.7 L (8.4-10.2) mg/dL Total Bilirubin 0.8 (0.2-1.3) mg/dL AST 33 (14-36) IU/L ALT 8 L (9-52) IU/L Alkaline Phosphatase 54 (38-126) U/L Total Protein 6.3 (6.3-8.2) g/dL Albumin 3.6 (3.5-5.0) g/dL Globulin 2.7 (1.7-4.1) g/dL Albumin/Globulin Ratio 1.3 (1.0-2.8) Imaging Data Chest x-ray: Radiologist's impression: [address] [address] XRay Report Signed Patient: Nai Zeng [facility]#: [id number] : 1960cct:[id number] Age/Sex: 57 / FDate of Service: 07/30/18 Loc: ED Accession Number: [id number] Procedure: XR chest 1V Ordering Provider: Shelby Bautista D.O. PROCEDURE: XR CHEST 1V INDICATIONS: shortness of breath TECHNIQUE: One view of the chest was acquired. COMPARISON: [facility], CR, XR CHEST 1V, 04/25/2018, 18:23. [facility], CT, CT ANGIO CHEST PE PROTOCOL, 07/17/2018, 3:44. [facility], CR, XR CHEST 1V, 07/16/2018, 23:22. FINDINGS: Surgical changes and devices: Multiple surgical clips in the lower neck.. Lungs and pleura: Lungs are clear. No pleural effusions or pneumothorax. Right hemidiaphragm eventration is noted. Mediastinum: Mediastinal contours appear normal. Heart size is normal. Bones and chest wall: No suspicious bony lesions. Overlying soft tissues appear unremarkable. IMPRESSION: No acute cardiopulmonary disease. Dictated by: Selena Vincent M.D. on 07/30/2018 at 16:37 Approved by: Selena Vincent M.D. on 07/30/2018 at 16:[address]: Radiologist's impression: [address] [address] [address] Scan Report Signed Patient: Nai Zeng [facility]#: [id number] : 1960cct:[id number] Age/Sex: 57 / FDate of Service: 07/30/18 Loc: ED Accession Number: [id number] Procedure: CT soft tissue neck w con Ordering Provider: Shelby Bautista D.O. PROCEDURE: CT SOFT TISSUE NECK W CON INDICATIONS: difficulty breathing, feels tight. TECHNIQUE: After the administration of intravenous contrast, 3.0 mm axial sections acquired from the sella to the aortic arch. Additional oblique axial 3.0 mm sections acquired through the pharynx. 3 mm thick coronal and sagittal reformats were generated. For radiation dose reduction, the following was used: automated exposure control. COMPARISON: [facility], CT, CT SOFT TISSUE NECK W CON, 05/24/2018, 15:41. FINDINGS: Image quality: Excellent. Lymph nodes: No enlarged lymph nodes seen throughout the neck. Bilateral cervical lymph node dissection has been performed. Postsurgical scarring within the bilateral neck is present , as before. Vessels: Visualized vasculature appears patent. Neck spaces: The oropharynx is within normal limits. Nasopharynx is within normal limits. There is severe narrowing and thickening of the hypopharynx , as before. A tracheostomy is present, which is patent. The airway below the trachea is patent. Glands: The parotid and submandibular glands appear normal. Thyroid gland is not seen. Miscellaneous: Visualized brain and orbits appear normal. There is mild groundglass pulmonary opacity, predominant within the right upper and lower lobes, consistent with pneumonia. Superficial soft tissues appear normal. Bones: No suspicious bony lesions. Visualized sinuses and mastoids appear unremarkable. IMPRESSION: 1. Right lung pneumonia. 2. Postsurgical sequelae. 3. No change in thickening and narrowing of the hypopharynx, possibly neoplastic or secondary to post radiation sequelae. Dictated by: Mani Gilbert M.D. on 07/30/2018 at 18:57 Approved by: Mani Gilbert M.D. on 07/30/2018 at 19:00 knee xray: Radiologist's impression: [address] [address] XRay Report Signed Patient: Nai Zeng [facility]#: [id number] : 1Acct:[id number] Age/Sex: 57 / FDate of Service: 07/30/18 Loc: ED Accession Number: [id number] Procedure: XR knee RT 1to2V Ordering Provider: Shelby Bautista D.O. PROCEDURE: XR KNEE RT 1TO2V INDICATIONS: pain after fall TECHNIQUE: 2 views of the knee were acquired. COMPARISON: None. FINDINGS: Bones: No fractures or dislocations. No suspicious bony lesions. Soft tissues: No joint effusion. No suspicious soft tissue calcifications. IMPRESSION: No acute fracture. No osseous lesion. If clinical suspicion and/or symptoms persist, further assessment with repeat plainfilms, or advanced imaging (e.g., CT, MRI, or bone scan) may be helpful for further assessment. Dictated by: Mani Gilbert M.D. on 07/30/2018 at 19:24 Approved by: Mani Gilbert M.D. on 07/30/2018 at 19:24 ECG Data Attestation: I personally reviewed and interpreted this ECG as follows: Prior ECG tracings: available for review Interpretation: Sinus tachycardia rate of 100 P are 163 QRS of 93 and QTC of 419. Patient has Q-wave in 3, precordial leads. Patient has prior EKG from 03/28/2018 which appears similar except for precordial leads have artifact, EKG from 02/17/2018 also appears similar. MDM Narrative Medical decision making narrative: Patient had a DuoNeb, suctioning with lavage which did make much difference. She was given Ativan IV which did improve symptoms significantly. Patient was able to rest. She has been maintaining her oxygenation but was put on nasal because it seemed to make her feel more comfortable although she was not hypoxic. Chest x-ray does not show any acute changes. CT of the neck shows no new changes to the Hypopharynx in terms of thickening or narrowing. Tracheostomy is present and patent. The airway below the trachea is patent. They do see some changes in the lungs with mild ground-glass pulmonary opacity predominant within the right upper and lower lobes consistent with pneumonia. Patient feels comfortable with this plan. She is starting to hurt all over from when she fell. Discussed giving a dose of pain medication. She is comfortable returning home at this time. We will do a short course of antibiotics she has had Levaquin before without any major issues. Discharge Plan Departure Patient Disposition: Home Clinical Impression: Shortness of breath, Syncope Instructions: DI for Shortness of Breath Activity Restrictions/Additional Instructions: Follow-up with your physician on Thursday for recheck. Continue home medications as prescribed. Take antibiotics until gone. You may start your antibiotics tomorrow. You received the first dose in the ER. Take pain medication as prescribed, this medication can make you sleepy do not drive, perform hazards activities or make any major decisions while taking it. Continue with your follow-up with the surgeon with ENT at [facility]. Return to the emergency department for fevers greater 100.4 F, worsening difficulty with breathing, new chest pain, coughing up blood, passing out, persistent vomiting or other new or concerning symptoms. Prescriptions: New tramadol 50 mg tablet 50 mg PO Q6H PRN (Reason: pain) Qty: 10 RF: 0 levofloxacin [Levaquin] 750 mg tablet 750 mg PO DAILY Qty: 6 RF: 0 No Action albuterol sulfate 2.5 MG/3 ML solution for nebulization 1 dose Inhalation QIDP PRN (Reason: Shortness Of Breath) Qty: 180 RF: 0 docusate sodium 100 MG capsule 100 mg PO BID Qty: 0 RF: 0 ferrous gluconate 324 MG tablet 324 mg PO DAILY Qty: 0 RF: 0 acetaminophen 325 MG tablet 325 mg PO Q6HP PRN (Reason: Pain, Mild) Qty: 0 RF: 0 amitriptyline 25 MG tablet 25 mg PO BEDTIME Qty: 0 RF: 0 ascorbic acid (vitamin C) 500 MG tablet 500 mg PO DAILY Qty: 0 RF: 0 fexofenadine 180 MG tablet 180 mg PO DAILY Qty: 0 RF: 0 nystatin 100,000 UNIT/1 ML suspension 1 dose PO DIRECTED Qty: 0 RF: 0 sodium chloride 0.9 % 10 ML solution 1 vial QID PRN (Reason: irrigate tracheostomy) Qty: 0 RF: 0 citalopram 40 mg tablet 40 mg PO DAILY RF: 0 lisinopril 10 mg tablet 10 mg PO BID RF: 0 estradiol 1 mg tablet 1 mg PO DAILY RF: 0 tramadol 50 mg tablet 50 mg PO Q6H PRN (Reason: pain) Qty: 10 RF: 0 levofloxacin [Levaquin] 750 mg tablet 750 mg PO DAILY Qty: 7 RF: 0 omeprazole 40 mg capsule,delayed release(DR/EC) 40 mg PO DAILY RF: 0 levothyroxine 88 mcg tablet 1 tab PO DAILY RF: 0 prednisone 20 mg tablet 10 mg PO BID Qty: 10 RF: 0 gentamicin 0.1 % ointment 1 applic topical DIRECTED RF: 0 Referrals: Eusebio Hammer MD [Primary Care Provider] -
[2018-07-30] MEDS: ALBUTEROL/IPRATROPIUM 3 ML AMPUL INH (16:35)
--- NOTE | 2018-07-30 16:54 | DI.CT.S_ITS ---
PROCEDURE: CT SOFT TISSUE NECK W CON INDICATIONS: difficulty breathing, feels tight. TECHNIQUE: After the administration of intravenous contrast, 3.0 mm axial sections acquired from the sella to the aortic arch. Additional oblique axial 3.0 mm sections acquired through the pharynx. 3 mm thick coronal and sagittal reformats were generated. For radiation dose reduction, the following was used: automated exposure control. COMPARISON: [facility], CT, CT SOFT TISSUE NECK W CON, 05/24/2018, 15:41. FINDINGS: Image quality: Excellent. Lymph nodes: No enlarged lymph nodes seen throughout the neck. Bilateral cervical lymph node dissection has been performed. Postsurgical scarring within the bilateral neck is present , as before. Vessels: Visualized vasculature appears patent. Neck spaces: The oropharynx is within normal limits. Nasopharynx is within normal limits. There is severe narrowing and thickening of the hypopharynx , as before. A tracheostomy is present, which is patent. The airway below the trachea is patent. Glands: The parotid and submandibular glands appear normal. Thyroid gland is not seen. Miscellaneous: Visualized brain and orbits appear normal. There is mild groundglass pulmonary opacity, predominant within the right upper and lower lobes, consistent with pneumonia. Superficial soft tissues appear normal. Bones: No suspicious bony lesions. Visualized sinuses and mastoids appear unremarkable. IMPRESSION: 1. Right lung pneumonia. 2. Postsurgical sequelae. 3. No change in thickening and narrowing of the hypopharynx, possibly neoplastic or secondary to post radiation sequelae. Dictated by: Mani Gilbert M.D. on 07/30/2018 at 18:57 Approved by: Mani Gilbert M.D. on 07/30/2018 at 19:00
[2018-07-30] MEDS: LORazepam 2 MG/ML INJ 1 MG IV (17:08)
--- NOTE | 2018-07-30 17:33 | ED_ITS ---
HPI - SOB/Dyspnea General Chief Complaint: Shortness of Breath/Dyspnea Stated Complaint: low sats, resp distress. Time Seen by Provider: 07/30/18 16:16 Source: patient, EMS and old records reviewed Mode of arrival: EMS Limitations: no limitations (has trach, speaks with trach or writes on paper ) History of Present Illness 57-year-old female comes emergency department with respiratory distress and difficulty breathing. Patient was walking she had what she described as a syncopal episode she did hit her head. Complaint headache. Patient states that that it is hard for her to breathe and feels very tight in her throat. She has had this problem multiple times in the past. There was report of low O2 in the field but here patient's oxygen has been in the 90s. She does have some thick tenacious sputum from her trach. No blood. Patient has not had fevers. She is not having any chest pain. She does have little bit of a headache. No vomiting. No other GI or urinary symptoms. Patient has seen a surgeon [facility] and there is some discussion about having some surgery regarding the area around her trach. This is scheduled for 1-2 months now. Related Data Home Medications Medication Instructions Recorded Confirmed albuterol sulfate 1 dose INHALATION QIDP PRN #180 01/25/16 07/30/18 docusate sodium 100 mg PO BID #0 01/25/16 05/24/18 ferrous gluconate 324 mg PO DAILY #0 08/28/16 05/25/18 acetaminophen 325 mg PO Q6HP PRN #0 10/29/16 05/24/18 amitriptyline 25 mg PO BEDTIME #0 01/22/17 05/25/18 ascorbic acid (vitamin C) 500 mg PO DAILY #0 06/10/17 05/25/18 fexofenadine 180 mg PO DAILY #0 06/10/17 07/30/18 nystatin 1 dose PO DIRECTED #0 06/10/17 05/25/18 sodium chloride 0.9 % 1 vial QID PRN #0 06/10/17 07/30/18 citalopram 40 mg PO DAILY 09/21/17 07/30/18 lisinopril 10 mg PO BID 09/21/17 05/24/18 levothyroxine 1 tab PO DAILY 01/04/18 07/30/18 estradiol 1 mg PO DAILY 01/25/18 07/30/18 gentamicin 1 applic TOPICAL DIRECTED 05/24/18 07/30/18 omeprazole 40 mg PO DAILY 07/30/18 07/30/18 Previous Rx's Medication Instructions Recorded prednisone 10 mg PO BID #10 tab 01/06/18 levofloxacin [Levaquin] 750 mg PO DAILY #7 tab 07/17/18 tramadol 50 mg PO Q6H PRN #10 tab 07/17/18 levofloxacin [Levaquin] 750 mg PO DAILY #6 tab 07/30/18 tramadol 50 mg PO Q6H PRN #10 tab 07/30/18 Allergies Allergy/AdvReac Type Severity Reaction Status Date / Time hydrocodone Allergy Intermediate RASH/HIVES Verified 07/30/18 16:10 Penicillins Allergy Intermediate RASH/HIVES Verified 07/30/18 16:10 metronidazole Allergy Mild RASH Verified 07/30/18 16:10 diphenhydramine Allergy Unknown Verified 07/30/18 16:10 [DIPHENHYDRAMINE] ibuprofen Allergy Unknown Verified 07/30/18 16:10 oxycodone [OXYCODONE] Allergy Unknown Verified 07/30/18 16:10 venom-wasp Allergy Verified 07/30/18 16:10 ranitidine AdvReac Intermediate SOB/DIZZY Verified 07/30/18 16:10 sulfamethoxazole AdvReac Mild GI UPSET Verified 07/30/18 16:10 [From Bactrim] trimethoprim [From Bactrim] AdvReac Mild GI UPSET Verified 07/30/18 16:10 fentanyl [FENTANYL] AdvReac Unknown vomiting Verified 07/30/18 16:10 ANTACIDS AdvReac Unknown Uncoded 07/30/18 16:10 Review of Systems Review of Systems ROS Unobtainable: All systems reviewed & are unremarkable except as noted in HPI and below Constitutional Denies chills, Denies fever(s), Reports headache(s), Denies lethargy and Denies weakness ENT Ears, Nose, Mouth, and Throat: Reports headache(s) and Reports throat swelling (Side on trach feels swollen, difficulty to breathe) Cardiovascular Denies chest pain, Denies diaphoresis, Reports syncope, Denies edema, Reports dyspnea and Reports dyspnea on exertion Respiratory Denies chest congestion, Reports cough, Reports dyspnea, Reports dyspnea on exertion and Reports wheezing Gastrointestinal Gastrointestinal: Denies abdominal pain, Denies change in bowel habits, Denies diarrhea, Denies nausea and Denies vomiting Genitourinary Denies hematuria, Denies dysuria, Denies flank pain and Denies urinary urgency Integumentary/Breasts Reports other (scar tissue around neck.) Neurologic Reports syncope, Reports headache(s) and Denies weakness Allergic/Immunologic Reports throat swelling (Side on trach feels swollen, difficulty to breathe) and Reports wheezing [facility] Medical History Tracheobronchitis (Chronic) Chronic pain (Acute) Community acquired pneumonia (Resolved) Tracheostomy complication (Acute) Otitis media, purulent, acute, with spontaneous rupture of TM (Resolved) MRSA (methicillin resistant Staphylococcus aureus) (Acute) Laryngeal cancer (Chronic) Social History household members: significant other Smoking Status: Former smoker alcohol intake: former Social History household members: significant other Smoking Status: Former smoker alcohol intake: former Exam Narrative Exam Narrative: GEN: well nourished, female, alert and oriented x 3, patient appears to be in moderate distress. Appears anxious. HEENT: Small abrasion on right forehead, small hematoma, pupils are equal round reactive to light, extraocular movements are intact, nares are clear, patient has a trach, there is scar tissue surrounding that appears similar to past visits in the emergency department. Patient has a little bit thick tenacious yellowish sputum. No stridor but patient does have sort of a wet sound with coughing and breathing through trach. Nontender on neck. Full range of motion although patient prefers to keep herself slightly flexed which is typical based on past visits and her issues with her tracheostomy. No complaint of neck pain. HEART: Regular rate and rhythm without murmur, clicks, rubs. Pulses are equal in upper extremities LUNGS:Lungs coarse bilaterally, breath sounds equal bilateral, no wheezes, rales, crackles, chest moves symmetrically, no tachypnea. When patient starts coughing she does have a lot of difficulty and feels very uncomfortable and seems quite anxious. ABD:bowel sounds normal, soft, non-tender, no guarding, rebound, rigidity, no masses noted, no hepatosplenomegaly MSCL: Non-tender, no muscle atrophy, muscles strength 5/5 upper and lower extremities, full range of motion, normal gait NEURO:CN 2-12 intact, sensation normal Initial Vital Signs Initial Vital Signs: Vital Signs Pulse Rate 88 07/30/18 16:10 Respiratory Rate 13 07/30/18 16:10 Blood Pressure 149/90 H 07/30/18 16:10 Pulse Oximetry 96 07/30/18 16:10 Course Orders Ordered: ED Orders 07/30/18 16:09 Measure peak expiratory flow ONCE RT Consult Eval and Treat Now 07/30/18 16:10 XR chest 1V Stat 07/30/18 16:51 EKG-12 Lead Stat 07/30/18 16:54 CT soft tissue neck w con Stat 07/30/18 17:35 Complete Blood Count AUTO DIFF Stat Comprehensive Metabolic Panel Stat Lactate (Lactic Acid) Stat 07/30/18 18:49 XR knee RT 1to2V Stat Discontinued Medications Albuterol/Ipratropium (Duoneb) 3 ml INH NOW ONE Stop: 07/30/18 18:18 Last Admin: 07/30/18 16:35 Dose: 3 ml Hydromorphone HCl (Dilaudid) 0.5 mg IV NOW ONE Stop: 07/30/18 19:47 Levofloxacin (Levaquin) 750 mg PO NOW ONE Stop: 07/30/18 19:47 Lorazepam (Ativan) 1 mg IV NOW ONE Stop: 07/30/18 16:55 Last Admin: 07/30/18 17:08 Dose: 1 mg Vital Signs - 8 hr 07/30/18 16:10 07/30/18 16:30 07/30/18 16:35 Temperature 97.8 F Pulse Rate 88 89 88 Respiratory Rate 13 18 16 Blood Pressure 149/90 H Blood Pressure [Right Arm] Pulse Oximetry 96 92 92 07/30/18 17:46 Temperature Pulse Rate 83 Respiratory Rate 16 Blood Pressure Blood Pressure [Right Arm] 118/71 Pulse Oximetry 100 MDM - SOB/Dyspnea Lab Data Attestation: I reviewed the patient's lab results. Result diagrams: 07/30/18 17:35 07/30/18 17:35 Lab Results 07/30/18 07/30/18 07/30/18 Range/Units 17:35 17:35 17:35 WBC 18.5 H (4.5-11.0) X10^3/uL RBC 4.08 (4.0-5.2) X10^6/uL Hgb 12.4 (12.0-16.0) g/dL Hct 37.4 (36-46) % MCV 91.8 (80-100) fL MCH 30.5 (26-34) PG MCHC 33.2 (30-36) % RDW 13.9 (11.6-14.8) % Plt Count 254 (150-400) X10^3/uL Neut % (Auto) 91.5 H (50-75) % Lymph % (Auto) 3.2 L (25-40) % [place] % (Auto) 4.1 (3-14) % Eos % (Auto) 1.0 L (2-4) % Baso % (Auto) 0.2 (0-2) % Neut # (Auto) 77328 H (3596-6221) /uL Lymph # (Auto) 600 L (4559-3255) /uL [place] # (Auto) 800 (0-900) /uL Eos # (Auto) 200 (0-450) /uL Baso # (Auto) 0 (0-100) /uL Sodium 137 (137-145) mmol/L Potassium 4.8 (3.4-5.1) mmol/L Chloride 103 (98-107) mmol/L Carbon Dioxide 29 (22-32) mmol/L BUN 17 (7-17) mg/dL Creatinine 0.60 (0.52-1.04) mg/dL Estimated GFR > 60.0 (>60) mL/min BUN/Creatinine Ratio 28.3 H (6-22) Glucose 99 (70-100) mg/dL Lactate 0.9 (0.7-2.1) mmol/L Calcium 7.7 L (8.4-10.2) mg/dL Total Bilirubin 0.8 (0.2-1.3) mg/dL AST 33 (14-36) IU/L ALT 8 L (9-52) IU/L Alkaline Phosphatase 54 (38-126) U/L Total Protein 6.3 (6.3-8.2) g/dL Albumin 3.6 (3.5-5.0) g/dL Globulin 2.7 (1.7-4.1) g/dL Albumin/Globulin Ratio 1.3 (1.0-2.8) Imaging Data Chest x-ray: Radiologist's impression: [address] [address] XRay Report Signed Patient: Nai Zeng [facility]#: [id number] : 1960cct:[id number] Age/Sex: 57 / FDate of Service: 07/30/18 Loc: ED Accession Number: [id number] Procedure: XR chest 1V Ordering Provider: Shelby Bautista D.O. PROCEDURE: XR CHEST 1V INDICATIONS: shortness of breath TECHNIQUE: One view of the chest was acquired. COMPARISON: [facility], CR, XR CHEST 1V, 04/25/2018, 18:23. [facility], CT, CT ANGIO CHEST PE PROTOCOL, 07/17/2018, 3:44. [facility], CR, XR CHEST 1V, 07/16/2018, 23:22. FINDINGS: Surgical changes and devices: Multiple surgical clips in the lower neck.. Lungs and pleura: Lungs are clear. No pleural effusions or pneumothorax. Right hemidiaphragm eventration is noted. Mediastinum: Mediastinal contours appear normal. Heart size is normal. Bones and chest wall: No suspicious bony lesions. Overlying soft tissues appear unremarkable. IMPRESSION: No acute cardiopulmonary disease. Dictated by: Selena Vincent M.D. on 07/30/2018 at 16:37 Approved by: Selena Vincent M.D. on 07/30/2018 at 16:[address]: Radiologist's impression: [address] [address] [address] Scan Report Signed Patient: Nai Zeng [facility]#: [id number] : 1960cct:[id number] Age/Sex: 57 / FDate of Service: 07/30/18 Loc: ED Accession Number: [id number] Procedure: CT soft tissue neck w con Ordering Provider: Shelby Bautista D.O. PROCEDURE: CT SOFT TISSUE NECK W CON INDICATIONS: difficulty breathing, feels tight. TECHNIQUE: After the administration of intravenous contrast, 3.0 mm axial sections acquired from the sella to the aortic arch. Additional oblique axial 3.0 mm sections acquired through the pharynx. 3 mm thick coronal and sagittal reformats were generated. For radiation dose reduction, the following was used: automated exposure control. COMPARISON: [facility], CT, CT SOFT TISSUE NECK W CON, 05/24/2018, 15:41. FINDINGS: Image quality: Excellent. Lymph nodes: No enlarged lymph nodes seen throughout the neck. Bilateral cervical lymph node dissection has been performed. Postsurgical scarring within the bilateral neck is present , as before. Vessels: Visualized vasculature appears patent. Neck spaces: The oropharynx is within normal limits. Nasopharynx is within normal limits. There is severe narrowing and thickening of the hypopharynx , as before. A tracheostomy is present, which is patent. The airway below the trachea is patent. Glands: The parotid and submandibular glands appear normal. Thyroid gland is not seen. Miscellaneous: Visualized brain and orbits appear normal. There is mild ground glass pulmonary opacity, predominant within the right upper and lower lobes, consistent with pneumonia. Superficial soft tissues appear normal. Bones: No suspicious bony lesions. Visualized sinuses and mastoids appear unremarkable. IMPRESSION: 1. Right lung pneumonia. 2. Postsurgical sequelae. 3. No change in thickening and narrowing of the hypopharynx, possibly neoplastic or secondary to post radiation sequelae. Dictated by: Mani Gilbert M.D. on 07/30/2018 at 18:57 Approved by: Mani Gilbert M.D. on 07/30/2018 at 19:00 knee xray: Radiologist's impression: [address] [address] XRay Report Signed Patient: Nai Zeng [facility]#: [id number] : 1Acct:[id number] Age/Sex: 57 / FDate of Service: 07/30/18 Loc: ED Accession Number: [id number] Procedure: XR knee RT 1to2V Ordering Provider: Shelby Bautista D.O. PROCEDURE: XR KNEE RT 1TO2V INDICATIONS: pain after fall TECHNIQUE: 2 views of the knee were acquired. COMPARISON: None. FINDINGS: Bones: No fractures or dislocations. No suspicious bony lesions. Soft tissues: No joint effusion. No suspicious soft tissue calcifications. IMPRESSION: No acute fracture. No osseous lesion. If clinical suspicion and/or symptoms persist, further assessment with repeat plainfilms, or advanced imaging (e.g., CT, MRI, or bone scan) may be helpful for further assessment. Dictated by: Mani Gilbert M.D. on 07/30/2018 at 19:24 Approved by: Mani Gilbert M.D. on 07/30/2018 at 19:24 ECG Data Attestation: I personally reviewed and interpreted this ECG as follows: Prior ECG tracings: available for review Interpretation: Sinus tachycardia rate of 100 P are 163 QRS of 93 and QTC of 419. Patient has Q-wave in 3, precordial leads. Patient has prior EKG from 03/28/2018 which appears similar except for precordial leads have artifact, EKG from 02/17/2018 also appears similar. MDM Narrative Medical decision making narrative: Patient had a DuoNeb, suctioning with lavage which did make much difference. She was given Ativan IV which did improve symptoms significantly. Patient was able to rest. She has been maintaining her oxygenation but was put on nasal because it seemed to make her feel more comfortable although she was not hypoxic. Chest x-ray does not show any acute changes. CT of the neck shows no new changes to the Hypopharynx in terms of th ickening or narrowing. Tracheostomy is present and patent. The airway below the trachea is patent. They do see some changes in the lungs with mild ground- glass pulmonary opacity predominant within the right upper and lower lobes consistent with pneumonia. Patient feels comfortable with this plan. She is starting to hurt all over from when she fell. Discussed giving a dose of pain medication. She is comfortable returning home at this time. We will do a short course of antibiotics she has had Levaquin before without any major issues. Discharge Plan Departure Patient Disposition: Home Clinical Impression: Shortness of breath, Syncope Instructions: DI for Shortness of Breath Activity Restrictions/Additional Instructions: Follow-up with your physician on Thursday for recheck. Continue home medications as prescribed. Take antibiotics until gone. You may start your antibiotics tomorrow. You received the first dose in the ER. Take pain medication as prescribed, this medication can make you sleepy do not drive, perform hazards activities or make any major decisions while taking it. Continue with your follow-up with the surgeon with ENT at [facility]. Return to the emergency department for fevers greater 100.4 F, worsening difficulty with breathing, new chest pain, coughing up blood, passing out, persistent vomiting or other new or concerning symptoms. Prescriptions: New tramadol 50 mg tablet 50 mg PO Q6H PRN (Reason: pain) Qty: 10 RF: 0 levofloxacin [Levaquin] 750 mg tablet 750 mg PO DAILY Qty: 6 RF: 0 No Action albuterol sulfate 2.5 MG/3 ML solution for nebulization 1 dose Inhalation QIDP PRN (Reason: Shortness Of Breath) Qty: 180 RF: 0 docusate sodium 100 MG capsule 100 mg PO BID Qty: 0 RF: 0 ferrous gluconate 324 MG tablet 324 mg PO DAILY Qty: 0 RF: 0 acetaminophen 325 MG tablet 325 mg PO Q6HP PRN (Reason: Pain, Mild) Qty: 0 RF: 0 amitriptyline 25 MG tablet 25 mg PO BEDTIME Qty: 0 RF: 0 ascorbic acid (vitamin C) 500 MG tablet 500 mg PO DAILY Qty: 0 RF: 0 fexofenadine 180 MG tablet 180 mg PO DAILY Qty: 0 RF: 0 nystatin 100,000 UNIT/1 ML suspension 1 dose PO DIRECTED Qty: 0 RF: 0 sodium chloride 0.9 % 10 ML solution 1 vial QID PRN (Reason: irrigate tracheostomy) Qty: 0 RF: 0 citalopram 40 mg tablet 40 mg PO DAILY RF: 0 lisinopril 10 mg tablet 10 mg PO BID RF: 0 estradiol 1 mg tablet 1 mg PO DAILY RF: 0 tramadol 50 mg tablet 50 mg PO Q6H PRN (Reason: pain) Qty: 10 RF: 0 levofloxacin [Levaquin] 750 mg tablet 750 mg PO DAILY Qty: 7 RF: 0 omeprazole 40 mg capsule,delayed release(DR/EC) 40 mg PO DAILY RF: 0 levothyroxine 88 mcg tablet 1 tab PO DAILY RF: 0 prednisone 20 mg tablet 10 mg PO BID Qty: 10 RF: 0 gentamicin 0.1 % ointment 1 applic topical DIRECTED RF: 0 Referrals: Eusebio Hammer MD [Primary Care Provider] -
[2018-07-30 17:43] LABS: Add Manual Diff / Slide Review NO; Basophils Absolute Auto 0 /uL (0-100); Basophils Percent Auto 0.2 % (0-2); Eosinophils Absolute Auto 200 /uL (0-450); Hematocrit 37.4 % (36-46); Hemoglobin 12.4 g/dL (12.0-16.0); Lymphocytes Absolute Auto 600 /uL (1100-4500); Lymphocytes Percent Auto 3.2 % (25-40); Mean Corpuscular HGB Conc 33.2 % (30-36); Mean Corpuscular Hemoglobin 30.5 PG (26-34); Mean Corpuscular Volume 91.8 fL (80-100); Monocytes Absolute Auto 800 /uL (0-900); Monocytes Percent Auto 4.1 % (3-14); Neutrophils Absolute Auto 17000 /uL (1500-7000); Neutrophils Percent Auto 91.5 % (50-75); Platelet Count 254 X10^3/uL (150-400); Red Blood Cell Count 4.08 X10^6/uL (4.0-5.2); Red Cell Distribution Width 13.9 % (11.6-14.8); White Blood Cell Count 18.5 X10^3/uL (4.5-11.0)
[2018-07-30 17:57] LABS: Lactate (Lactic Acid) 0.9 mmol/L (0.7-2.1)
[2018-07-30 18:02] LABS: Alanine Aminotransferase 8 IU/L (9-52); Albumin 3.6 g/dL (3.5-5.0); Albumin Globulin Ratio 1.3 (1.0-2.8); Alkaline Phosphatase 54 U/L (38-126); Aspartate Aminotransferase 33 IU/L (14-36); BUN Creatinine Ratio 28.3 (6-22); Bilirubin Total 0.8 mg/dL (0.2-1.3); Blood Urea Nitrogen 17 mg/dL (7-17); Calcium 7.7 mg/dL (8.4-10.2); Carbon Dioxide 29 mmol/L (22-32); Chloride 103 mmol/L (98-107); Estimated Glomerular Filt Rate > 60.0 mL/min (>60); Globulin 2.7 g/dL (1.7-4.1); Glucose 99 mg/dL (70-100); Sodium 137 mmol/L (137-145); Total Protein 6.3 g/dL (6.3-8.2)
[2018-07-30 18:07] LABS: HEMOLYSIS 160 (0-50)
[2018-07-30 18:08] LABS: Potassium 4.8 mmol/L (3.4-5.1)
--- NOTE | 2018-07-30 18:49 | DI.RAD.S_ITS ---
PROCEDURE: XR KNEE RT 1TO2V INDICATIONS: pain after fall TECHNIQUE: 2 views of the knee were acquired. COMPARISON: None. FINDINGS: Bones: No fractures or dislocations. No suspicious bony lesions. Soft tissues: No joint effusion. No suspicious soft tissue calcifications. IMPRESSION: No acute fracture. No osseous lesion. If clinical suspicion and/or symptoms persist, further assessment with repeat plainfilms, or advanced imaging (e.g., CT, MRI, or bone scan) may be helpful for further assessment. Dictated by: Mani Gilbert M.D. on 07/30/2018 at 19:24 Approved by: Mani Gilbert M.D. on 07/30/2018 at 19:24
[2018-07-30] MEDS: HYDROMORPHONE 1 MG INJ 0.5 MG IV (20:07)
[2018-07-30] MEDS: levoFLOXacin 250 MG TABLET 750 MG PO (20:07)
--- NOTE | 2018-07-30 21:30 | DI.CT.S_ITS ---
PROCEDURE: CT HEAD/BRAIN WO CON INDICATIONS: fall, head injury TECHNIQUE: Noncontrast 4.5 mm thick angled axial sections acquired from the foramen magnum to the vertex, with coronal and sagittal reformats. For radiation dose reduction, the following was used: automated exposure control, adjustment of mA and/or kV according to patient size. COMPARISON: [facility], CT, HEAD WITHOUT CONTRAST, 06/10/2017, 16:50. [facility], CR, XR KNEE RT 1TO2V, 07/30/2018, 19:05. [facility], CT, CT SOFT TISSUE NECK W CON, 07/30/2018, 18:14. FINDINGS: Image quality: Excellent. CSF spaces: Basal cisterns are patent. No extra-axial fluid collections. Ventricles are normal in size and shape. Brain: No midline shift. No intracranial masses or hemorrhage. Ruth-white matter interface is normal. Skull and face: Mild right forehead soft tissue swelling is seen. There is also mild soft tissue swelling seen involving the left parieto-occipital scalp region, although this is stable compared to the prior examination. Calvarium and visualized facial bones are intact, without suspicious lesions. Sinuses: No significant paranasal sinus abnormality is seen. Fluid is seen within the left mastoid air cells. IMPRESSION: No acute intracranial hemorrhage is seen. Mild right forehead soft tissue swelling is seen, which is believed to be related to an acute injury. There is stable soft tissue swelling the left parietal-occipital region. Left mastoid air cell fluid can be seen, which is chronic. Note: No significant discrepancy from the preliminary report. Dictated by: Colin Pinon M.D. on 07/31/2018 at 8:38 Approved by: Colin Pinon M.D. on 07/31/2018 at 8:42
--- NOTE | 2018-07-30 21:37 | PC.NURSE ---
Pt states she has headache, noticed a bump where a small abrasion was on arrival, notified Dr Ansari and head CT is ordered. Pt AOx4 pupils equal. Pt tearful because none of her contacts can come pick her up. Multiple numbers tried, go straight to voicemail.
== END 2018-07-30 22:58 | disposition home or self-care (01) ==
PROVIDERS: Emergency Provider Emergency Medicine; PCP Internal Medicine
DX: R06.02 Shortness of breath (principal); R00.0 Tachycardia, unspecified; R55 Syncope and collapse; Z93.0 Tracheostomy status
CPT/HCPCS: 70450; 70491; 71045; 73560; 80053; 83605; 85025; 93005; 93010; 94640; 96374; 96375; 99283; 99285; J1170; J2060; Q9967

== ENCOUNTER → 2018-08-31 18:54 | Outpatient (ROUT) | payer OTHER, MEDICAID, SELFPAY ==
[2018-05-24 22:04] VITALS: BMI 36.7
== END ==
PROVIDERS: PCP Internal Medicine; Visit Provider Internal Medicine
DX: S11.80XD Unspecified open wound of other specified part of neck, subsequent encounter (principal)
CPT/HCPCS: 87070; 87075; 87077; 87205

== ENCOUNTER 2018-09-02 14:30 | Outpatient (RCR) | payer OTHER, MEDICAID, SELFPAY ==
[2018-03-27 17:37] VITALS: BMI 35.9
--- NOTE | 2018-05-12 11:15 | PT.OPPOC ---
Current Diagnoses Other chronic pain (05/12/18) Pain in left knee (05/12/18) Provider Visit Care Team Role Provider Type Eusebio Hammer MD Attending Provider Non-Staff Primary Care Provider Specialty: Internal Medicine Address: [address] [place] [address], [id number] Email: Plan Of Care PT-OP-T Assessment and Plan Start: 05/12/18 10:47 Freq: Status: Active Protocol: Document 05/12/18 10:48 EA (Rec: 05/12/18 11:14 SHEY [id number]) Physical Therapy Assessment Rehab Potential Rehabilitation Potential Fair Evaluation Complexity Number of Personal Factors/Comorbidities 3 or More Number of Body Systems Impaired 4 or More Clinical Presentation at Evaluation Unstable Impairments Impairments Activity Tolerance Balance Functional Mobility Gait Pain Posture ROM Soft Tissue Mobility Strength Transfers Other Concerns Fall Risk Yes Barriers to Rehabilitation Chonicity of the condition, multiple comorbidities Goals Four Impairment Impaired distance ambulation tolerance Senior Living Goal (LTG) Patient will ambulate > 1/2 mile with no increase in symptoms. LTG Duration 4 wks Three Impairment Impaired gait Micro[employer] Duplicating Unit Supervisor Goal (LTG) Patient will demonstrate near to normal gait LTG Duration 4 wks Two Impairment LEFS (Lower extremities Functional Scale) of 49/80 [employer]film Duplicating Unit Supervisor Goal (LTG) Patient will have LEFS of > 60 LTG Duration 5 wks One Impairment No HEP in place Senior Living Goal (LTG) Patient will exhibit independent on home exercises program LTG Duration 3 wks Assessment Summary Assessment Pleasant 57 y/o F patient with no vocal output referred to PT with chronic left knee pain diagnosis. Today patient exhibits gait difficulty with abnormality and bed mobility with difficulty due to severe LLE's pain and muscular spasms . Objective measurement is limited due to hypersensitivity upon palpation or even with assistance. Gait mechanics shows lacked of terminal knee extension control during stance phase with gait instability noted when pain and spasm is increased. Patient dysfunction limits her functional mobility that require for activities of daily living. Patient would benefit with skilled PT to address the aforementioned issues. Physical Therapy Plan Frequency and Duration Frequency of Treatment 2x/Week Duration of Treatment 8 Plan of Care Start Date 05/12/18 Plan of Care End Date 07/21/18 Therapeutic Interventions Therapeutic Interventions Balance Training Gait Training Home Exercise Program Joint Mobilizations Manual Therapy Patient/Caregiver Education Self-Care/Home Management Soft Tissue Mobilization Taping Therapeutic Exercises Modalities Cold Pack/Ice Massage Electric Stimulation Hot Packs Ultrasound Next Visit Focus/Plan Next Note Type Treatment Note Next Visit Plan Provide HEP with images. Plan of Care Dates Plan of Care Start Date 05/12/18 Plan of Care End Date 07/21/18 Please Sign and Return: I have reviewed this Plan of Care and certify that the skilled therapy services above are required to meet the patient?s needs. Physician Signature Date Printed Name and Credentials Clinical Instructor Signature Printed Name and Credentials
--- NOTE | 2018-05-12 11:15 | PT.OIE ---
Current Diagnoses Other chronic pain (05/12/18) Pain in left knee (05/12/18) Past Medical History (Last Reviewed 03/27/18 @ 19:36 by LORI Anaya) Tracheobronchitis (Acute) Chronic pain (Acute) Community acquired pneumonia (Acute) Tracheostomy complication (Acute) Otitis media, purulent, acute, with spontaneous rupture of TM (Acute) Laryngeal cancer (Acute) MRSA (methicillin resistant Staphylococcus aureus) (Acute) Provider Visit Care Team Role Provider Type Eusebio Hammer MD Attending Provider Non-Staff Primary Care Provider Specialty: Internal Medicine Address: [address] [place] [address], [id number] Email: Physical Therapy Initial Evaluation PT-OP-A Visit Information Start: 05/12/18 10:47 Freq: Status: Active Protocol: Document 05/12/18 10:48 EA (Rec: 05/12/18 11:14 EA [id number]) Out-Patient Physical Therapy Visit Information Visit Information Visit Type Initial Evaluation Visit Start Time 10:00 Visit Stop Time 10:45 Total Visit Minutes 45 Visit Number 1 Evaluation Information Evaluation Date 05/12/18 Precautions Precautions SOB, severe pain with LLE and spasm may result to high risk fall PT-OP-B Current Condition Start: 05/12/18 10:47 Freq: Status: Active Protocol: Document 05/12/18 10:48 EA (Rec: 05/12/18 11:14 EA [id number]) Current Condition History of Current Condition Onset Date 6 months ago Current Complaints Left knee, hip, and low back pain rated 7/10 with WB activities History of Current Condition (Patient uses writing to communicate and as well caregiver on side): Present left knee complaint started 6 months ago with no recent injury recalled. Pt reports had dash board knee injury 20 years ago but no hospitalization. She stated that pain gradually started from the L knee and up to hip and low back area. She recalled that four falls in the past 6 months was always due to knee giving up and pain . She mentioned that left knee swelling and pain increased at night specially if she had increased her walking. Multi comorbities including recent throat surgery/treatment due to cancer. Tracheostomy which results of no voice production. Chronic low back and neck pain with no fromal PT. 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 Treatment Goals Patient/Caregiver Goals Patient wants to get back to previous level of function 6 months ago where she was able to walk more than half a mile without knee and hip pain. Prior Functional Status Baseline Function- ADL's Independent Baseline Function- Mobility Independent Baseline Function- Gait Able to ambulate > 1/2 mile Baseline Function- Work/School Disabled Baseline Function- Other Patient live with her significant other on a single story house with 3 steps to get in with rails. Current Functional Impairments (Reported) Functional Limitations- ADL's Impaired activities that requires > 200 feet ambulation Functional Limitations- Mobility/Gait < 200 ft Functional Limitations- Work/School Disabled Functional Limitations- Recreation/ unable Hobbies Personal Factors Other Personal Factors That May Effect chronicity of the condition Therapy/Recovery and mutiple comorbidities. PT-OP-C Subjective Start: 05/12/18 10:47 Freq: Status: Active Protocol: Document 05/12/18 10:48 EA (Rec: 05/12/18 11:14 EA [id number]) OP-PT Subjective Patient Comments Patient Comments I feel my knee is giving out when I step in it; states knee pain radiates up to hip and low back region; states heat somewaht helps. Patient Reported Progress Worse Patient Questionnaires Lower Extremity Functional Scale LEFS Score 49 LEFS Impairment 20 to 39% Impaired (Score 48- 62) PT-OP-D Balance Start: 05/12/18 10:47 Freq: Status: Active Protocol: Document 05/12/18 10:48 EA (Rec: 05/12/18 11:14 EA [id number]) OP-PT Balance Assessment Sitting Balance Static Sitting Balance Ability Good Dynamic Sitting Balance Ability Good Standing Balance Static Standing Balance Ability Good Dynamic Standing Balance Ability Fair Balance Tests Single Limb Standing Single Limb- Right < 3 seconds Single Limb- Left unable Elizondo Fall Scale Copyright Permission Caro GAITAN, Caro RM, Denise SJ. Development of a scale to identify the fall- prone patient. Can J Aging 1989;8;366-7. Esteban Elizondo (2009). Preventing patient falls. (2nd ed). [place]: [place]. PT-OP-F Manual Assessment Start: 05/12/18 10:47 Freq: Status: Active Protocol: Document 05/12/18 11:00 EA (Rec: 05/13/18 08:04 EA [id number]) Manual Assessments Soft Tissue Assessment Soft Tissue Mobility Assessment Tightness with hypertonicity to LLE's Joint Mobility Assessment Joint Mobility Assessment empty endfeel to left hip and knee PT-OP-G Mobility & Gait Start: 05/12/18 10:47 Freq: Status: Active Protocol: Document 05/12/18 11:00 EA (Rec: 05/13/18 08:04 EA [id number]) OP Mobility Evaluation Bed Mobility Rolling Indep with Moderate difficulty Supine to and from Sit Indep with minimal difficulty Transfers Sit to Stand Indep Bed to Chair Transfers Indep Car Transfers Indep and able to drive Functional Movements Lifting and Carrying Difficulty, moderate Squats Difficulty, moderate Running Assessment Unable OP Gait Assessment Gait Gait Assistance Required: Independent Distance (Feet) 100 Able to Maintain Weight Bearing Status Yes During Gait Assistive Devices Assistive Device None Gait Deviations General Gait Pattern Antalgic Decreased Stride Length Lateral Trunk Lean Factors Limiting Gait Function Factors Limiting Gait Function Decreased Activity Tolerance Decreased Strength Limited Range of Motion Pain Comments Gait Comments severe antalgic with decreased L WB and left knee hyperextension at stance phase Stair Climbing Evaluation Comments Stair Climbing Comments Not tested due to muscle spasm and pain to left LLE PT-OP-J Posture/Palpation/Skin Start: 05/12/18 10:47 Freq: Status: Active Protocol: Document 05/12/18 11:00 EA (Rec: 05/13/18 08:04 EA [id number]) Posture Evaluation Comments Posture Comments Fair general body psoture in standing Palpation Assessment Location One Palpation Location Ant/posterior LLE extending to gluteal and left low back Palpation Findings Soft Tissue Tightness Spasm Tenderness Skin Assessment Other Assessments Skin Assessment Comments Tracheostomy with medical equipment in place properly, multiple skin scars on both UE 's and anterior neck region. No obvious open wound noted. PT-OP-K Range of Motion Start: 05/12/18 10:47 Freq: Status: Active Protocol: Document 05/12/18 11:00 EA (Rec: 05/13/18 08:08 EA [id number]) Hip Goniometric Range of Motion Hip Measured in Degrees Left Active Testing Position Supine Flexion w/Knee Flexed 90 Right Active Hip ROM WFL Yes Testing Position Supine Knee Goniometric Range of Motion Knee Measured in Degrees Left Patient Position Supine Flexion Active (degrees) 95 Extension Passive (degrees) 0 Right Knee ROM WFL Yes Patient Position Sitting Ankle and Foot Goniometric Range of Motion Ankle and Foot Measured in Degrees Left Active Ankle/Foot ROM WFL Yes PT-OP-L Special Tests Start: 05/12/18 10:47 Freq: Status: Active Protocol: Document 05/12/18 11:00 EA (Rec: 05/13/18 08:04 EA [id number]) Special Tests Other Special Tests Special Tests all special tests to calf, knee, hip, and back are not reliable at this time due to increasing pain, however, SLR was positive when attempted but accompanied with spasms severity. PT-OP-T Assessment and Plan Start: 05/12/18 10:47 Freq: Status: Active Protocol: Document 05/12/18 10:48 EA (Rec: 05/12/18 11:14 EA [id number]) Physical Therapy Assessment Rehab Potential Rehabilitation Potential Fair Evaluation Complexity Number of Personal Factors/Comorbidities 3 or More Number of Body Systems Impaired 4 or More Clinical Presentation at Evaluation Unstable Impairments Impairments Activity Tolerance Balance Functional Mobility Gait Pain Posture ROM Soft Tissue Mobility Strength Transfers Other Concerns Fall Risk Yes Barriers to Rehabilitation Chonicity of the condition, multiple comorbidities Goals Four Impairment Impaired distance ambulation tolerance Home Child Care Provider Goal (LTG) Patient will ambulate > 1/2 mile with no increase in symptoms. LTG Duration 4 wks Three Impairment Impaired gait Home Child Care Provider Goal (LTG) Patient will demonstrate near to normal gait LTG Duration 4 wks Two Impairment LEFS (Lower extremities Functional Scale) of 49/80 Home Child Care Provider Goal (LTG) Patient will have LEFS of > 60 LTG Duration 5 wks One Impairment No HEP in place Penitentiary Goal (LTG) Patient will exhibit independent on home exercises program LTG Duration 3 wks Assessment Summary Assessment Pleasant 57 y/o F patient with no vocal output referred to PT with chronic left knee pain diagnosis. Today patient exhibits gait difficulty with abnormality and bed mobility with difficulty due to severe LLE's pain and muscular spasms . Objective measurement is limited due to hypersensitivity upon palpation or even with assistance. Gait mechanics shows lacked of terminal knee extension control during stance phase with gait instability noted when pain and spasm is increased. Patient dysfunction limits her functional mobility that require for activities of daily living. Patient would benefit with skilled PT to address the aforementioned issues. Physical Therapy Plan Frequency and Duration Frequency of Treatment 2x/Week Duration of Treatment 8 Plan of Care Start Date 05/12/18 Plan of Care End Date 07/21/18 Therapeutic Interventions Therapeutic Interventions Balance Training Gait Training Home Exercise Program Joint Mobilizations Manual Therapy Patient/Caregiver Education Self-Care/Home Management Soft Tissue Mobilization Taping Therapeutic Exercises Modalities Cold Pack/Ice Massage Electric Stimulation Hot Packs Ultrasound Next Visit Focus/Plan Next Note Type Treatment Note Next Visit Plan Provide HEP with images.
--- NOTE | 2018-05-24 13:40 | PT.OTN ---
Current Diagnoses Other chronic pain (05/24/18) Pain in left knee (05/24/18) Physical Therapy Treatment Note PT-OP-A Visit Information Start: 05/12/18 10:47 Freq: Status: Active Protocol: Document 05/12/18 10:48 EA (Rec: 05/12/18 11:14 EA [id number]) Out-Patient Physical Therapy Visit Information Visit Information Visit Type Initial Evaluation Visit Start Time 10:00 Visit Stop Time 10:45 Total Visit Minutes 45 Visit Number 1 Evaluation Information Evaluation Date 05/12/18 Precautions Precautions SOB, severe pain with LLE and spasm may result to high risk fall PT-OP-B Current Condition Start: 05/12/18 10:47 Freq: Status: Active Protocol: Document 05/12/18 10:48 EA (Rec: 05/12/18 11:14 EA [id number]) Current Condition History of Current Condition Onset Date 6 months ago Current Complaints Left knee, hip, and low back pain rated 7/10 with WB activities History of Current Condition (Patient uses writing to communicate and as well caregiver on side): Present left knee complaint started 6 months ago with no recent injury recalled. Pt reports had dash board knee injury 20 years ago but no hospitalization. She stated that pain gradually started from the L knee and up to hip and low back area. She recalled that four falls in the past 6 months was always due to knee giving up and pain . She mentioned that left knee swelling and pain increased at night specially if she had increased her walking. Multi comorbities including recent throat surgery/treament due to cancer. Tracheostomy which results of no voice production. Chronic low back and neck pain with no fromal PT. 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 Treatment Goals Patient/Caregiver Goals Patient wants to get back to previous level of function 6 months ago where she was able to walk more than half a mile without knee and hip pain. Prior Functional Status Baseline Function- ADL's Independent Baseline Function- Mobility Independent Baseline Function- Gait Able to ambulate > 1/2 mile Baseline Function- Work/School Disabled Baseline Function- Other Patient live with her significant other on a single story house with 3 steps to get in with rails. Current Functional Impairments (Reported) Functional Limitations- ADL's Impaired activities that requires > 200 feet ambulation Functional Limitations- Mobility/Gait < 200 ft Functional Limitations- Work/School Disabled Functional Limitations- Recreation/ unable Hobbies Personal Factors Other Personal Factors That May Effect chronicity of the condition Therapy/Recovery and mutiple comorbidities. PT-OP-C Subjective Start: 05/12/18 10:47 Freq: Status: Active Protocol: Document 05/24/18 12:55 EA (Rec: 05/24/18 13:03 EA [id number]) OP-PT Subjective Patient Comments Patient Comments Pt reorts by writing the her left low back still hurts when extending the knee Patient Reported Progress Same PT-OP-D Balance Start: 05/12/18 10:47 Freq: Status: Active Protocol: Document 05/12/18 10:48 EA (Rec: 05/12/18 11:14 EA [id number]) OP-PT Balance Assessment Sitting Balance Static Sitting Balance Ability Good Dynamic Sitting Balance Ability Good Standing Balance Static Standing Balance Ability Good Dynamic Standing Balance Ability Fair Balance Tests Single Limb Standing Single Limb- Right < 3 seconds Single Limb- Left unable Elizondo Fall Scale Copyright Permission Caro GAITAN, Caro RM, Denise SJ. Development of a scale to identify the fall- prone patient. Can J Aging 1989;8;366-7. Esteban Elizondo (2009). Preventing patient falls. (2nd ed). [place]: [place]. PT-OP-F Manual Assessment Start: 05/12/18 10:47 Freq: Status: Active Protocol: Document 05/12/18 11:00 EA (Rec: 05/13/18 08:04 EA [id number]) Manual Assessments Soft Tissue Assessment Soft Tissue Mobility Assessment Tightness with hypertonicity to LLE's Joint Mobility Assessment Joint Mobility Assessment empty endfeel to left hip and knee PT-OP-G Mobility & Gait Start: 05/12/18 10:47 Freq: Status: Active Protocol: Document 05/12/18 11:00 EA (Rec: 05/13/18 08:04 EA [id number]) OP Mobility Evaluation Bed Mobility Rolling Indep with Moderate difficulty Supine to and from Sit Indep with minimal difficulty Transfers Sit to Stand Indep Bed to Chair Transfers Indep Car Transfers Indep and able to drive Functional Movements Lifting and Carrying Difficulty, moderate Squats Difficulty, moderate Running Assessment Unable OP Gait Assessment Gait Gait Assistance Required: Independent Distance (Feet) 100 Able to Maintain Weight Bearing Status Yes During Gait Assistive Devices Assistive Device None Gait Deviations General Gait Pattern Antalgic Decreased Stride Length Lateral Trunk Lean Factors Limiting Gait Function Factors Limiting Gait Function Decreased Activity Tolerance Decreased Strength Limited Range of Motion Pain Comments Gait Comments severe antalgic with decreased L WB and left knee hyperextension at stance phase Stair Climbing Evaluation Comments Stair Climbing Comments Not tested due to muscle spasm and pain to left LLE PT-OP-J Posture/Palpation/Skin Start: 05/12/18 10:47 Freq: Status: Active Protocol: Document 05/12/18 11:00 EA (Rec: 05/13/18 08:04 EA [id number]) Posture Evaluation Comments Posture Comments Fair general body psoture in standing Palpation Assessment Location One Palpation Location Ant/posterior LLE extending to gluteal and left low back Palpation Findings Soft Tissue Tightness Spasm Tenderness Skin Assessment Other Assessments Skin Assessment Comments Tracheostomy with medical equipment in place properly, multiple skin scars on both UE 's and anterior neck region. No obvious open wound noted. PT-OP-K Range of Motion Start: 05/12/18 10:47 Freq: Status: Active Protocol: Document 05/12/18 11:00 EA (Rec: 05/13/18 08:08 EA [id number]) Hip Goniometric Range of Motion Hip Measured in Degrees Left Active Testing Position Supine Flexion w/Knee Flexed 90 Right Active Hip ROM WFL Yes Testing Position Supine Knee Goniometric Range of Motion Knee Measured in Degrees Left Patient Position Supine Flexion Active (degrees) 95 Extension Passive (degrees) 0 Right Knee ROM WFL Yes Patient Position Sitting Ankle and Foot Goniometric Range of Motion Ankle and Foot Measured in Degrees Left Active Ankle/Foot ROM WFL Yes PT-OP-L Special Tests Start: 05/12/18 10:47 Freq: Status: Active Protocol: Document 05/12/18 11:00 EA (Rec: 05/13/18 08:04 EA [id number]) Special Tests Other Special Tests Special Tests all special tests to calf, knee, hip, and back are not reliable at this time due to increasing pain, however, SLR was positive when attempted but accompanied with spasms severity. PT-OP-Q Treatments Start: 05/12/18 10:47 Freq: Status: Active Protocol: Document 05/24/18 12:55 EA (Rec: 05/24/18 13:03 EA [id number]) Cardio Equipment Recumbent Stepper (Sci-Fit) Duration (Minutes) 6 Resistance 1 Seat Position 13 Therapeutic Exercises Supine Exercises 4 Supine Exercise Name PPT 3 Supine Exercise Name heel slides Side bilateral 2 Supine Exercise Name Bridge Comments head three pillosw 1 Supine Exercise Name SLR Comments head three pillows Sidelying Exercises 2 Sidelying Exercise Name Hip ABD Side left 1 Sidelying Exercise Name clamshell Side left Sitting Exercises 1 Sitting Exercise Name knee flexion/extnsion Side left Self-Care/Home Management Treatment Education Patient Education Home Exercise Program Joint Protection Pain Management Posture Other Education HEP images perform and educated with caregiver on side. PT-OP-R Modalities Start: 05/12/18 10:47 Freq: Status: Active Protocol: Document 05/24/18 12:55 EA (Rec: 05/24/18 13:03 EA [id number]) Electric Stimulation Electric Stimulation Interferential Current (IFC) Body Location right Pralumbars and upper glutes Contraction Type Normal Combined With Heat/Cold Hot Pack Comments Patient chose heat to low back and knee PT-OP-T Assessment and Plan Start: 05/12/18 10:47 Freq: Status: Active Protocol: Document 05/24/18 12:55 EA (Rec: 05/24/18 13:03 EA [id number]) Physical Therapy Assessment Assessment Summary Assessment Patient requires careful instruction and gentle execution as low back tends to increase in spasms. Tolerated treatment and understands HEP with safety. Caregiver concur to implement HEP. Physical Therapy Plan Next Visit Focus/Plan Next Note Type Treatment Note Next Visit Plan Cont with current plan and perform Stretch
--- NOTE | 2018-06-02 12:10 | PT.OTN ---
Current Diagnoses Other chronic pain (06/02/18) Pain in left knee (06/02/18) Physical Therapy Treatment Note PT-OP-A Visit Information Start: 05/12/18 10:47 Freq: Status: Active Protocol: Document 06/02/18 11:09 EA (Rec: 06/02/18 11:15 EA [id number]) Out-Patient Physical Therapy Visit Information Visit Information Visit Type Treatment Note Visit Start Time 10:30 Visit Stop Time 11:15 PT-OP-B Current Condition Start: 05/12/18 10:47 Freq: Status: Active Protocol: Document 05/12/18 10:48 EA (Rec: 05/12/18 11:14 EA [id number]) Current Condition History of Current Condition Onset Date 6 months ago Current Complaints Left knee, hip, and low back pain rated 7/10 with WB activities History of Current Condition (Patient uses writing to communicate and as well caregiver on side): Present left knee complaint started 6 months ago with no recent injury recalled. Pt reports had dash board knee injury 20 years ago but no hospitalization. She stated that pain gradually started from the L knee and up to hip and low back area. She recalled that four falls in the past 6 months was always due to knee giving up and pain . She mentioned that left knee swelling and pain increased at night specially if she had increased her walking. Multi comorbities including recent throat surgery/treament due to cancer. Tracheostomy which results of no voice production. Chronic low back and neck pain with no fromal PT. 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 Treatment Goals Patient/Caregiver Goals Patient wants to get back to previous level of function 6 months ago where she was able to walk more than half a mile without knee and hip pain. Prior Functional Status Baseline Function- ADL's Independent Baseline Function- Mobility Independent Baseline Function- Gait Able to ambulate > 1/2 mile Baseline Function- Work/School Disabled Baseline Function- Other Patient live with her significant other on a single story house with 3 steps to get in with rails. Current Functional Impairments (Reported) Functional Limitations- ADL's Impaired activities that requires > 200 feet ambulation Functional Limitations- Mobility/Gait < 200 ft Functional Limitations- Work/School Disabled Functional Limitations- Recreation/ unable Hobbies Personal Factors Other Personal Factors That May Effect chronicity of the condition Therapy/Recovery and mutiple comorbidities. PT-OP-C Subjective Start: 05/12/18 10:47 Freq: Status: Active Protocol: Document 06/02/18 11:09 EA (Rec: 06/02/18 11:15 EA [id number]) OP-PT Subjective Patient Comments Patient Comments Caregiver reports patient was hospitalized last week due to throat infection and is much feeling better at this time. PT-OP-D Balance Start: 05/12/18 10:47 Freq: Status: Active Protocol: Document 05/12/18 10:48 EA (Rec: 05/12/18 11:14 EA [id number]) OP-PT Balance Assessment Sitting Balance Static Sitting Balance Ability Good Dynamic Sitting Balance Ability Good Standing Balance Static Standing Balance Ability Good Dynamic Standing Balance Ability Fair Balance Tests Single Limb Standing Single Limb- Right < 3 seconds Single Limb- Left unable Elizondo Fall Scale Copyright Permission Caro GAITAN, Caro RM, Denise SJ. Development of a scale to identify the fall- prone patient. Can J Aging 1989;8;366-7. Esteban Elizondo (2009). Preventing patient falls. (2nd ed). [place]: [place]. PT-OP-F Manual Assessment Start: 05/12/18 10:47 Freq: Status: Active Protocol: Document 05/12/18 11:00 EA (Rec: 05/13/18 08:04 EA [id number]) Manual Assessments Soft Tissue Assessment Soft Tissue Mobility Assessment Tightness with hypertonicity to LLE's Joint Mobility Assessment Joint Mobility Assessment empty endfeel to left hip and knee PT-OP-G Mobility & Gait Start: 05/12/18 10:47 Freq: Status: Active Protocol: Document 05/12/18 11:00 EA (Rec: 05/13/18 08:04 EA [id number]) OP Mobility Evaluation Bed Mobility Rolling Indep with Moderate difficulty Supine to and from Sit Indep with minimal difficulty Transfers Sit to Stand Indep Bed to Chair Transfers Indep Car Transfers Indep and able to drive Functional Movements Lifting and Carrying Difficulty, moderate Squats Difficulty, moderate Running Assessment Unable OP Gait Assessment Gait Gait Assistance Required: Independent Distance (Feet) 100 Able to Maintain Weight Bearing Status Yes During Gait Assistive Devices Assistive Device None Gait Deviations General Gait Pattern Antalgic Decreased Stride Length Lateral Trunk Lean Factors Limiting Gait Function Factors Limiting Gait Function Decreased Activity Tolerance Decreased Strength Limited Range of Motion Pain Comments Gait Comments severe antalgic with decreased L WB and left knee hyperextension at stance phase Stair Climbing Evaluation Comments Stair Climbing Comments Not tested due to muscle spasm and pain to left LLE PT-OP-J Posture/Palpation/Skin Start: 05/12/18 10:47 Freq: Status: Active Protocol: Document 05/12/18 11:00 EA (Rec: 05/13/18 08:04 EA [id number]) Posture Evaluation Comments Posture Comments Fair general body psoture in standing Palpation Assessment Location One Palpation Location Ant/posterior LLE extending to gluteal and left low back Palpation Findings Soft Tissue Tightness Spasm Tenderness Skin Assessment Other Assessments Skin Assessment Comments Tracheostomy with medical equipment in place properly, multiple skin scars on both UE 's and anterior neck region. No obvious open wound noted. PT-OP-K Range of Motion Start: 05/12/18 10:47 Freq: Status: Active Protocol: Document 05/12/18 11:00 EA (Rec: 05/13/18 08:08 EA [id number]) Hip Goniometric Range of Motion Hip Measured in Degrees Left Active Testing Position Supine Flexion w/Knee Flexed 90 Right Active Hip ROM WFL Yes Testing Position Supine Knee Goniometric Range of Motion Knee Measured in Degrees Left Patient Position Supine Flexion Active (degrees) 95 Extension Passive (degrees) 0 Right Knee ROM WFL Yes Patient Position Sitting Ankle and Foot Goniometric Range of Motion Ankle and Foot Measured in Degrees Left Active Ankle/Foot ROM WFL Yes PT-OP-L Special Tests Start: 05/12/18 10:47 Freq: Status: Active Protocol: Document 05/12/18 11:00 EA (Rec: 05/13/18 08:04 EA [id number]) Special Tests Other Special Tests Special Tests all special tests to calf, knee, hip, and back are not reliable at this time due to increasing pain, however, SLR was positive when attempted but accompanied with spasms severity. PT-OP-Q Treatments Start: 05/12/18 10:47 Freq: Status: Active Protocol: Document 06/02/18 11:09 EA (Rec: 06/02/18 11:15 EA [id number]) Cardio Equipment Recumbent Stepper (Sci-Fit) Duration (Minutes) 7 Resistance 2 Seat Position 13 Therapeutic Exercises Supine Exercises 5 Supine Exercise Name Hamst/periformis stretch Reps/Minutes x15SH x 3 reps 4 Supine Exercise Name PPT 3 Supine Exercise Name heel slides Side bilateral 2 Supine Exercise Name Bridge Comments head three pillosw 1 Supine Exercise Name SLR Comments head three pillows Sidelying Exercises 2 Sidelying Exercise Name Hip ABD Side left 1 Sidelying Exercise Name clamshell Side left Sitting Exercises 1 Sitting Exercise Name knee flexion/extnsion Side left Manual Therapy Treatment Soft Tissue Mobilization 1 Body Location left low back, left gluetal and and quads Mobilization Type Myofascial Release Trigger Point Release Intensity/Depth Superficial Comments gentle PT-OP-R Modalities Start: 05/12/18 10:47 Freq: Status: Active Protocol: Document 06/02/18 11:09 EA (Rec: 06/02/18 11:15 EA [id number]) Electric Stimulation Electric Stimulation Interferential Current (IFC) Body Location right Pralumbars and upper glutes Contraction Type Normal Combined With Heat/Cold Hot Pack Comments Patient chose heat to low back and knee PT-OP-T Assessment and Plan Start: 05/12/18 10:47 Freq: Status: Active Protocol: Document 06/02/18 11:09 EA (Rec: 06/02/18 11:15 EA [id number]) Physical Therapy Assessment Assessment Summary Assessment Pt has improved symptoms at this time prior and after the session. Patient is progressing well. Physical Therapy Plan Next Visit Focus/Plan Next Note Type Treatment Note Next Visit Plan Cont with current plan and perform Stretch
--- NOTE | 2018-06-09 12:58 | PT.OTN ---
Current Diagnoses Other chronic pain (06/09/18) Pain in left knee (06/09/18) Physical Therapy Treatment Note PT-OP-A Visit Information Start: 05/12/18 10:47 Freq: Status: Active Protocol: Document 06/09/18 10:25 EA (Rec: 06/09/18 10:32 EA [id number]) Out-Patient Physical Therapy Visit Information Visit Information Visit Type Treatment Note Visit Start Time 10:00 Visit Stop Time 10:45 Total Visit Minutes 48 Visit Number 3 PT-OP-B Current Condition Start: 05/12/18 10:47 Freq: Status: Active Protocol: Document 05/12/18 10:48 EA (Rec: 05/12/18 11:14 EA [id number]) Current Condition History of Current Condition Onset Date 6 months ago Current Complaints Left knee, hip, and low back pain rated 7/10 with WB activities History of Current Condition (Patient uses writing to communicate and as well caregiver on side): Present left knee complaint started 6 months ago with no recent injury recalled. Pt reports had dash board knee injury 20 years ago but no hospitalization. She stated that pain gradually started from the L knee and up to hip and low back area. She recalled that four falls in the past 6 months was always due to knee giving up and pain . She mentioned that left knee swelling and pain increased at night specially if she had increased her walking. Multi comorbities including recent throat surgery/treament due to cancer. Tracheostomy which results of no voice production. Chronic low back and neck pain with no fromal PT. 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 Treatment Goals Patient/Caregiver Goals Patient wants to get back to previous level of function 6 months ago where she was able to walk more than half a mile without knee and hip pain. Prior Functional Status Baseline Function- ADL's Independent Baseline Function- Mobility Independent Baseline Function- Gait Able to ambulate > 1/2 mile Baseline Function- Work/School Disabled Baseline Function- Other Patient live with her significant other on a single story house with 3 steps to get in with rails. Current Functional Impairments (Reported) Functional Limitations- ADL's Impaired activities that requires > 200 feet ambulation Functional Limitations- Mobility/Gait < 200 ft Functional Limitations- Work/School Disabled Functional Limitations- Recreation/ unable Hobbies Personal Factors Other Personal Factors That May Effect chronicity of the condition Therapy/Recovery and mutiple comorbidities. PT-OP-C Subjective Start: 05/12/18 10:47 Freq: Status: Active Protocol: Document 06/09/18 10:25 EA (Rec: 06/09/18 10:32 EA [id number]) OP-PT Subjective Patient Comments Patient Comments Pt reports able to perform HEP and pain is getting better to left knee and back; states right shoulder is quite hurting today ; states have history of fall long time ago on her right shoulder. PT-OP-D Balance Start: 05/12/18 10:47 Freq: Status: Active Protocol: Document 05/12/18 10:48 EA (Rec: 05/12/18 11:14 EA [id number]) OP-PT Balance Assessment Sitting Balance Static Sitting Balance Ability Good Dynamic Sitting Balance Ability Good Standing Balance Static Standing Balance Ability Good Dynamic Standing Balance Ability Fair Balance Tests Single Limb Standing Single Limb- Right < 3 seconds Single Limb- Left unable Elizondo Fall Scale Copyright Permission Caro JM, Caro RM, Denise SJ. Development of a scale to identify the fall- prone patient. Can J Aging 1989;8;366-7. Esteban Elizondo (2009). Preventing patient falls. (2nd ed). [place]: [place]. PT-OP-F Manual Assessment Start: 05/12/18 10:47 Freq: Status: Active Protocol: Document 05/12/18 11:00 EA (Rec: 05/13/18 08:04 EA [id number]) Manual Assessments Soft Tissue Assessment Soft Tissue Mobility Assessment Tightness with hypertonicity to LLE's Joint Mobility Assessment Joint Mobility Assessment empty endfeel to left hip and knee PT-OP-G Mobility & Gait Start: 05/12/18 10:47 Freq: Status: Active Protocol: Document 05/12/18 11:00 EA (Rec: 05/13/18 08:04 EA [id number]) OP Mobility Evaluation Bed Mobility Rolling Indep with Moderate difficulty Supine to and from Sit Indep with minimal difficulty Transfers Sit to Stand Indep Bed to Chair Transfers Indep Car Transfers Indep and able to drive Functional Movements Lifting and Carrying Difficulty, moderate Squats Difficulty, moderate Running Assessment Unable OP Gait Assessment Gait Gait Assistance Required: Independent Distance (Feet) 100 Able to Maintain Weight Bearing Status Yes During Gait Assistive Devices Assistive Device None Gait Deviations General Gait Pattern Antalgic Decreased Stride Length Lateral Trunk Lean Factors Limiting Gait Function Factors Limiting Gait Function Decreased Activity Tolerance Decreased Strength Limited Range of Motion Pain Comments Gait Comments severe antalgic with decreased L WB and left knee hyperextension at stance phase Stair Climbing Evaluation Comments Stair Climbing Comments Not tested due to muscle spasm and pain to left LLE PT-OP-J Posture/Palpation/Skin Start: 05/12/18 10:47 Freq: Status: Active Protocol: Document 05/12/18 11:00 EA (Rec: 05/13/18 08:04 EA [id number]) Posture Evaluation Comments Posture Comments Fair general body psoture in standing Palpation Assessment Location One Palpation Location Ant/posterior LLE extending to gluteal and left low back Palpation Findings Soft Tissue Tightness Spasm Tenderness Skin Assessment Other Assessments Skin Assessment Comments Tracheostomy with medical equipment in place properly, multiple skin scars on both UE 's and anterior neck region. No obvious open wound noted. PT-OP-K Range of Motion Start: 05/12/18 10:47 Freq: Status: Active Protocol: Document 05/12/18 11:00 EA (Rec: 05/13/18 08:08 EA [id number]) Hip Goniometric Range of Motion Hip Measured in Degrees Left Active Testing Position Supine Flexion w/Knee Flexed 90 Right Active Hip ROM WFL Yes Testing Position Supine Knee Goniometric Range of Motion Knee Measured in Degrees Left Patient Position Supine Flexion Active (degrees) 95 Extension Passive (degrees) 0 Right Knee ROM WFL Yes Patient Position Sitting Ankle and Foot Goniometric Range of Motion Ankle and Foot Measured in Degrees Left Active Ankle/Foot ROM WFL Yes PT-OP-L Special Tests Start: 05/12/18 10:47 Freq: Status: Active Protocol: Document 05/12/18 11:00 EA (Rec: 05/13/18 08:04 EA [id number]) Special Tests Other Special Tests Special Tests all special tests to calf, knee, hip, and back are not reliable at this time due to increasing pain, however, SLR was positive when attempted but accompanied with spasms severity. PT-OP-Q Treatments Start: 05/12/18 10:47 Freq: Status: Active Protocol: Document 06/09/18 10:25 EA (Rec: 06/09/18 10:32 EA [id number]) Cardio Equipment Recumbent Stepper (Sci-Fit) Duration (Minutes) 7 Resistance 2 Seat Position 13 Other no arm support Gym Equipment Cable Column (Body Solid) Hip Adduction Resistance 20# Reps/Time x 15 reps Leg Extension Resistance 10 lbs Reps/Time x 15 reps Hip Abduction Resistance 2o # Reps/Time x 15 reps Shuttle Recovery Bilateral Squats Resistance 2 cords Reps/Time x 15reps Therapeutic Exercises Supine Exercises 6 Supine Exercise Name Trunk rotation stretch Reps/Minutes x 30SH x 2 reps 5 Supine Exercise Name Hamst/periformis stretch Reps/Minutes x15SH x 3 reps 4 Supine Exercise Name PPT 3 Supine Exercise Name heel slides Side bilateral 2 Supine Exercise Name Bridge Comments head three pillosw 1 Supine Exercise Name SLR Comments head three pillows Sidelying Exercises 2 Sidelying Exercise Name Hip ABD Side left 1 Sidelying Exercise Name clamshell Side left Sitting Exercises 2 Sitting Exercise Name SKTC Reps/Minutes x 15SH x 2 reps 1 Sitting Exercise Name knee flexion/extnsion Side left Manual Therapy Treatment Soft Tissue Mobilization 1 Body Location left low back, left gluetal and and quads Mobilization Type Myofascial Release Trigger Point Release Intensity/Depth Superficial Comments gentle PT-OP-R Modalities Start: 05/12/18 10:47 Freq: Status: Active Protocol: Document 06/09/18 10:25 EA (Rec: 06/09/18 10:32 EA [id number]) Hot Pack/Cold Pack Treatment Hot Pack Location left low back and hip Patient Position Sidelying Treatment Duration (minutes) 10 PT-OP-T Assessment and Plan Start: 05/12/18 10:47 Freq: Status: Active Protocol: Document 06/09/18 10:25 EA (Rec: 06/09/18 10:32 EA [id number]) Physical Therapy Assessment Assessment Summary Assessment Pt has improved exercises tolerance with no discomfort noted during therex; advised to see her physician about right shoulder for further eval. Physical Therapy Plan Next Visit Focus/Plan Next Note Type Treatment Note Next Visit Plan Cont with current plan and perform Stretch
--- NOTE | 2018-06-14 13:24 | PT.OTN ---
Current Diagnoses Other chronic pain (06/14/18) Pain in left knee (06/14/18) Physical Therapy Treatment Note PT-OP-A Visit Information Start: 05/12/18 10:47 Freq: Status: Active Protocol: Document 06/14/18 13:06 EA (Rec: 06/14/18 13:24 EA [id number]) Out-Patient Physical Therapy Visit Information Visit Information Visit Type Treatment Note Visit Start Time 09:45 Visit Stop Time 10:33 Total Visit Minutes 48 Visit Number 5 PT-OP-B Current Condition Start: 05/12/18 10:47 Freq: Status: Active Protocol: Document 05/12/18 10:48 EA (Rec: 05/12/18 11:14 EA [id number]) Current Condition History of Current Condition Onset Date 6 months ago Current Complaints Left knee, hip, and low back pain rated 7/10 with WB activities History of Current Condition (Patient uses writing to communicate and as well caregiver on side): Present left knee complaint started 6 months ago with no recent injury recalled. Pt reports had dash board knee injury 20 years ago but no hospitalization. She stated that pain gradually started from the L knee and up to hip and low back area. She recalled that four falls in the past 6 months was always due to knee giving up and pain . She mentioned that left knee swelling and pain increased at night specially if she had increased her walking. Multi comorbities including recent throat surgery/treament due to cancer. Tracheostomy which results of no voice production. Chronic low back and neck pain with no fromal PT. 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 Treatment Goals Patient/Caregiver Goals Patient wants to get back to previous level of function 6 months ago where she was able to walk more than half a mile without knee and hip pain. Prior Functional Status Baseline Function- ADL's Independent Baseline Function- Mobility Independent Baseline Function- Gait Able to ambulate > 1/2 mile Baseline Function- Work/School Disabled Baseline Function- Other Patient live with her significant other on a single story house with 3 steps to get in with rails. Current Functional Impairments (Reported) Functional Limitations- ADL's Impaired activities that requires > 200 feet ambulation Functional Limitations- Mobility/Gait < 200 ft Functional Limitations- Work/School Disabled Functional Limitations- Recreation/ unable Hobbies Personal Factors Other Personal Factors That May Effect chronicity of the condition Therapy/Recovery and mutiple comorbidities. PT-OP-C Subjective Start: 05/12/18 10:47 Freq: Status: Active Protocol: Document 06/14/18 13:06 EA (Rec: 06/14/18 13:24 EA [id number]) OP-PT Subjective Patient Comments Patient Comments Pt reports left hip and knee is feeling much better; states right shoulder still hurts and may call her doctor to get check. Patient Reported Progress Improving PT-OP-D Balance Start: 05/12/18 10:47 Freq: Status: Active Protocol: Document 05/12/18 10:48 EA (Rec: 05/12/18 11:14 EA [id number]) OP-PT Balance Assessment Sitting Balance Static Sitting Balance Ability Good Dynamic Sitting Balance Ability Good Standing Balance Static Standing Balance Ability Good Dynamic Standing Balance Ability Fair Balance Tests Single Limb Standing Single Limb- Right < 3 seconds Single Limb- Left unable Elizondo Fall Scale Copyright Permission Caro GAITAN, Caro RM, Denise SJ. Development of a scale to identify the fall- prone patient. Can J Aging 1989;8;366-7. Esteban Elizondo (2009). Preventing patient falls. (2nd ed). [place]: [place]. PT-OP-F Manual Assessment Start: 05/12/18 10:47 Freq: Status: Active Protocol: Document 05/12/18 11:00 EA (Rec: 05/13/18 08:04 EA [id number]) Manual Assessments Soft Tissue Assessment Soft Tissue Mobility Assessment Tightness with hypertonicity to LLE's Joint Mobility Assessment Joint Mobility Assessment empty endfeel to left hip and knee PT-OP-G Mobility & Gait Start: 05/12/18 10:47 Freq: Status: Active Protocol: Document 05/12/18 11:00 EA (Rec: 05/13/18 08:04 EA [id number]) OP Mobility Evaluation Bed Mobility Rolling Indep with Moderate difficulty Supine to and from Sit Indep with minimal difficulty Transfers Sit to Stand Indep Bed to Chair Transfers Indep Car Transfers Indep and able to drive Functional Movements Lifting and Carrying Difficulty, moderate Squats Difficulty, moderate Running Assessment Unable OP Gait Assessment Gait Gait Assistance Required: Independent Distance (Feet) 100 Able to Maintain Weight Bearing Status Yes During Gait Assistive Devices Assistive Device None Gait Deviations General Gait Pattern Antalgic Decreased Stride Length Lateral Trunk Lean Factors Limiting Gait Function Factors Limiting Gait Function Decreased Activity Tolerance Decreased Strength Limited Range of Motion Pain Comments Gait Comments severe antalgic with decreased L WB and left knee hyperextension at stance phase Stair Climbing Evaluation Comments Stair Climbing Comments Not tested due to muscle spasm and pain to left LLE PT-OP-J Posture/Palpation/Skin Start: 05/12/18 10:47 Freq: Status: Active Protocol: Document 05/12/18 11:00 EA (Rec: 05/13/18 08:04 EA [id number]) Posture Evaluation Comments Posture Comments Fair general body psoture in standing Palpation Assessment Location One Palpation Location Ant/posterior LLE extending to gluteal and left low back Palpation Findings Soft Tissue Tightness Spasm Tenderness Skin Assessment Other Assessments Skin Assessment Comments Tracheostomy with medical equipment in place properly, multiple skin scars on both UE 's and anterior neck region. No obvious open wound noted. PT-OP-K Range of Motion Start: 05/12/18 10:47 Freq: Status: Active Protocol: Document 05/12/18 11:00 EA (Rec: 05/13/18 08:08 EA [id number]) Hip Goniometric Range of Motion Hip Measured in Degrees Left Active Testing Position Supine Flexion w/Knee Flexed 90 Right Active Hip ROM WFL Yes Testing Position Supine Knee Goniometric Range of Motion Knee Measured in Degrees Left Patient Position Supine Flexion Active (degrees) 95 Extension Passive (degrees) 0 Right Knee ROM WFL Yes Patient Position Sitting Ankle and Foot Goniometric Range of Motion Ankle and Foot Measured in Degrees Left Active Ankle/Foot ROM WFL Yes PT-OP-L Special Tests Start: 05/12/18 10:47 Freq: Status: Active Protocol: Document 05/12/18 11:00 EA (Rec: 05/13/18 08:04 EA [id number]) Special Tests Other Special Tests Special Tests all special tests to calf, knee, hip, and back are not reliable at this time due to increasing pain, however, SLR was positive when attempted but accompanied with spasms severity. PT-OP-Q Treatments Start: 05/12/18 10:47 Freq: Status: Active Protocol: Document 06/14/18 13:06 EA (Rec: 06/14/18 13:24 EA [id number]) Cardio Equipment Recumbent Stepper (Sci-Fit) Duration (Minutes) 7 Resistance 3 Seat Position 13 Other no arm support Gym Equipment Cable Column (Body Solid) Hip Adduction Resistance 20-30# Reps/Time x 15 repsx 2 Leg Extension Resistance 10 -20lbs Reps/Time x 15 repsx 2 Hip Abduction Resistance 2o-30 # Reps/Time x 15 repsx 2 Shuttle Recovery Unilateral Squats Resistance 2cord Shuttle Recovery Platform Stable Reps/Time x 15 reps Bilateral Squats Resistance 3 cords Reps/Time x 15reps Therapeutic Exercises Supine Exercises 6 Supine Exercise Name Trunk rotation stretch Reps/Minutes x 30SH x 2 reps 5 Supine Exercise Name Hamst/periformis stretch Reps/Minutes x15SH x 3 reps 4 Supine Exercise Name PPT w/ SLR Reps/Minutes x 15 reps x 2 3 Supine Exercise Name heel slides Side bilateral 2 Supine Exercise Name Bridge Comments head three pillows Sidelying Exercises 2 Sidelying Exercise Name Hip ABD Side left Reps/Minutes x 15 reps x 2 1 Sidelying Exercise Name clamshell Side left Reps/Minutes x 15 reps x 2 Sitting Exercises 1 Sitting Exercise Name knee flexion/extnsion Side left Resistance 3# Reps/Minutes x 15 reps x 2 Standing Exercises 1 Standing Exercise Name T-ball wall squat Reps/Minutes x 12 reps Manual Therapy Treatment Soft Tissue Mobilization 1 Body Location left low back, left gluetal and and quads Mobilization Type Myofascial Release Trigger Point Release Intensity/Depth Superficial Comments gentle PT-OP-R Modalities Start: 05/12/18 10:47 Freq: Status: Active Protocol: Document 06/14/18 13:06 EA (Rec: 06/14/18 13:24 EA [id number]) Hot Pack/Cold Pack Treatment Hot Pack Location left low back and hip Patient Position Sidelying Treatment Duration (minutes) 10 PT-OP-T Assessment and Plan Start: 05/12/18 10:47 Freq: Status: Active Protocol: Document 06/14/18 13:06 EA (Rec: 06/14/18 13:24 EA [id number]) Physical Therapy Assessment Assessment Summary Assessment Patient continue to show LE's strength improvement. Advised to see her physician due to right hard solid tissue just underneath upper traps. Physical Therapy Plan Next Visit Focus/Plan Next Note Type Treatment Note Next Visit Plan Advance as tolerated
--- NOTE | 2018-06-16 15:39 | PT.OTN ---
Current Diagnoses Other chronic pain (06/16/18) Pain in left knee (06/16/18) Physical Therapy Treatment Note PT-OP-A Visit Information Start: 05/12/18 10:47 Freq: Status: Active Protocol: Document 06/16/18 10:00 EA (Rec: 06/16/18 10:31 EA [id number]) Out-Patient Physical Therapy Visit Information Visit Information Visit Type Treatment Note Visit Start Time 09:45 Visit Stop Time 10:33 Total Visit Minutes 48 Visit Number 6 PT-OP-B Current Condition Start: 05/12/18 10:47 Freq: Status: Active Protocol: Document 05/12/18 10:48 EA (Rec: 05/12/18 11:14 EA [id number]) Current Condition History of Current Condition Onset Date 6 months ago Current Complaints Left knee, hip, and low back pain rated 7/10 with WB activities History of Current Condition (Patient uses writing to communicate and as well caregiver on side): Present left knee complaint started 6 months ago with no recent injury recalled. Pt reports had dash board knee injury 20 years ago but no hospitalization. She stated that pain gradually started from the L knee and up to hip and low back area. She recalled that four falls in the past 6 months was always due to knee giving up and pain . She mentioned that left knee swelling and pain increased at night specially if she had increased her walking. Multi comorbities including recent throat surgery/treament due to cancer. Tracheostomy which results of no voice production. Chronic low back and neck pain with no fromal PT. 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 Treatment Goals Patient/Caregiver Goals Patient wants to get back to previous level of function 6 months ago where she was able to walk more than half a mile without knee and hip pain. Prior Functional Status Baseline Function- ADL's Independent Baseline Function- Mobility Independent Baseline Function- Gait Able to ambulate > 1/2 mile Baseline Function- Work/School Disabled Baseline Function- Other Patient live with her significant other on a single story house with 3 steps to get in with rails. Current Functional Impairments (Reported) Functional Limitations- ADL's Impaired activities that requires > 200 feet ambulation Functional Limitations- Mobility/Gait < 200 ft Functional Limitations- Work/School Disabled Functional Limitations- Recreation/ unable Hobbies Personal Factors Other Personal Factors That May Effect chronicity of the condition Therapy/Recovery and mutiple comorbidities. PT-OP-C Subjective Start: 05/12/18 10:47 Freq: Status: Active Protocol: Document 06/16/18 10:00 EA (Rec: 06/16/18 10:31 EA [id number]) OP-PT Subjective Patient Comments Patient Comments Pt reports her caregiver is getting appoinment for her shoulder issue. PT-OP-D Balance Start: 05/12/18 10:47 Freq: Status: Active Protocol: Document 05/12/18 10:48 EA (Rec: 05/12/18 11:14 EA [id number]) OP-PT Balance Assessment Sitting Balance Static Sitting Balance Ability Good Dynamic Sitting Balance Ability Good Standing Balance Static Standing Balance Ability Good Dynamic Standing Balance Ability Fair Balance Tests Single Limb Standing Single Limb- Right < 3 seconds Single Limb- Left unable Eilzondo Fall Scale Copyright Permission Caro GAITAN, Caro RM, Denise SJ. Development of a scale to identify the fall- prone patient. Can J Aging 1989;8;366-7. Esteban Elizondo (2009). Preventing patient falls. (2nd ed). [place]: [place]. PT-OP-F Manual Assessment Start: 05/12/18 10:47 Freq: Status: Active Protocol: Document 05/12/18 11:00 EA (Rec: 05/13/18 08:04 EA [id number]) Manual Assessments Soft Tissue Assessment Soft Tissue Mobility Assessment Tightness with hypertonicity to LLE's Joint Mobility Assessment Joint Mobility Assessment empty endfeel to left hip and knee PT-OP-G Mobility & Gait Start: 05/12/18 10:47 Freq: Status: Active Protocol: Document 05/12/18 11:00 EA (Rec: 05/13/18 08:04 EA [id number]) OP Mobility Evaluation Bed Mobility Rolling Indep with Moderate difficulty Supine to and from Sit Indep with minimal difficulty Transfers Sit to Stand Indep Bed to Chair Transfers Indep Car Transfers Indep and able to drive Functional Movements Lifting and Carrying Difficulty, moderate Squats Difficulty, moderate Running Assessment Unable OP Gait Assessment Gait Gait Assistance Required: Independent Distance (Feet) 100 Able to Maintain Weight Bearing Status Yes During Gait Assistive Devices Assistive Device None Gait Deviations General Gait Pattern Antalgic Decreased Stride Length Lateral Trunk Lean Factors Limiting Gait Function Factors Limiting Gait Function Decreased Activity Tolerance Decreased Strength Limited Range of Motion Pain Comments Gait Comments severe antalgic with decreased L WB and left knee hyperextension at stance phase Stair Climbing Evaluation Comments Stair Climbing Comments Not tested due to muscle spasm and pain to left LLE PT-OP-J Posture/Palpation/Skin Start: 05/12/18 10:47 Freq: Status: Active Protocol: Document 05/12/18 11:00 EA (Rec: 05/13/18 08:04 EA [id number]) Posture Evaluation Comments Posture Comments Fair general body psoture in standing Palpation Assessment Location One Palpation Location Ant/posterior LLE extending to gluteal and left low back Palpation Findings Soft Tissue Tightness Spasm Tenderness Skin Assessment Other Assessments Skin Assessment Comments Tracheostomy with medical equipment in place properly, multiple skin scars on both UE 's and anterior neck region. No obvious open wound noted. PT-OP-K Range of Motion Start: 05/12/18 10:47 Freq: Status: Active Protocol: Document 05/12/18 11:00 EA (Rec: 05/13/18 08:08 EA [id number]) Hip Goniometric Range of Motion Hip Measured in Degrees Left Active Testing Position Supine Flexion w/Knee Flexed 90 Right Active Hip ROM WFL Yes Testing Position Supine Knee Goniometric Range of Motion Knee Measured in Degrees Left Patient Position Supine Flexion Active (degrees) 95 Extension Passive (degrees) 0 Right Knee ROM WFL Yes Patient Position Sitting Ankle and Foot Goniometric Range of Motion Ankle and Foot Measured in Degrees Left Active Ankle/Foot ROM WFL Yes PT-OP-L Special Tests Start: 05/12/18 10:47 Freq: Status: Active Protocol: Document 05/12/18 11:00 EA (Rec: 05/13/18 08:04 EA [id number]) Special Tests Other Special Tests Special Tests all special tests to calf, knee, hip, and back are not reliable at this time due to increasing pain, however, SLR was positive when attempted but accompanied with spasms severity. PT-OP-Q Treatments Start: 05/12/18 10:47 Freq: Status: Active Protocol: Document 06/16/18 10:00 EA (Rec: 06/16/18 10:31 EA [id number]) Cardio Equipment Recumbent Stepper (Sci-Fit) Duration (Minutes) 7 Resistance 3 Seat Position 13 Other no arm support Gym Equipment Cable Column (Body Solid) Hip Adduction Resistance 20-30# Reps/Time x 15 repsx 2 Leg Extension Resistance 10 -30lbs Reps/Time x 15 repsx 2 Hip Abduction Resistance 2o-30 # Reps/Time x 15 repsx 2 Shuttle Recovery Unilateral Squats Resistance 3cord Shuttle Recovery Platform Stable Reps/Time x 12-15 repsx 2 Bilateral Squats Resistance 4 cords Reps/Time x12- 15reps x 2 Therapeutic Exercises Supine Exercises 6 Supine Exercise Name Trunk rotation stretch Reps/Minutes x 30SH x 2 reps 5 Supine Exercise Name Hamst/periformis stretch Reps/Minutes x15SH x 3 reps 2 Supine Exercise Name Bridge Comments head three pillows Sidelying Exercises 2 Sidelying Exercise Name Hip ABD Side left Reps/Minutes x 15 reps x 2 Standing Exercises 2 Standing Exercise Name rails sit to stand Reps/Minutes x 10 reps 1 Standing Exercise Name T-ball wall squat Reps/Minutes x 12 reps Manual Therapy Treatment Soft Tissue Mobilization 1 Body Location left low back, left gluetal and and quads Mobilization Type Myofascial Release Trigger Point Release Intensity/Depth Superficial Comments gentle PT-OP-R Modalities Start: 05/12/18 10:47 Freq: Status: Active Protocol: Document 06/16/18 10:00 EA (Rec: 06/16/18 10:31 EA [id number]) Hot Pack/Cold Pack Treatment Hot Pack Location left low back and hip Patient Position Sidelying Treatment Duration (minutes) 10 PT-OP-T Assessment and Plan Start: 05/12/18 10:47 Freq: Status: Active Protocol: Document 06/16/18 10:00 EA (Rec: 06/16/18 10:31 EA [id number]) Physical Therapy Assessment Assessment Summary Assessment Improved strength, improved exercises tolerance. Patient is progressing very well. Physical Therapy Plan Next Visit Focus/Plan Next Note Type Treatment Note Next Visit Plan Advance as tolerated
--- NOTE | 2018-06-22 15:24 | PT.OTN ---
Current Diagnoses Other chronic pain (06/22/18) Pain in left knee (06/22/18) Physical Therapy Treatment Note PT-OP-A Visit Information Start: 05/12/18 10:47 Freq: Status: Active Protocol: Document 06/22/18 09:51 EA (Rec: 06/22/18 09:54 EA [id number]) Out-Patient Physical Therapy Visit Information Visit Information Visit Type Treatment Note Visit Start Time 09:00 Visit Stop Time 09:45 Total Visit Minutes 50 Visit Number 7 PT-OP-B Current Condition Start: 05/12/18 10:47 Freq: Status: Active Protocol: Document 05/12/18 10:48 EA (Rec: 05/12/18 11:14 EA [id number]) Current Condition History of Current Condition Onset Date 6 months ago Current Complaints Left knee, hip, and low back pain rated 7/10 with WB activities History of Current Condition (Patient uses writing to communicate and as well caregiver on side): Present left knee complaint started 6 months ago with no recent injury recalled. Pt reports had dash board knee injury 20 years ago but no hospitalization. She stated that pain gradually started from the L knee and up to hip and low back area. She recalled that four falls in the past 6 months was always due to knee giving up and pain . She mentioned that left knee swelling and pain increased at night specially if she had increased her walking. Multi comorbities including recent throat surgery/treament due to cancer. Tracheostomy which results of no voice production. Chronic low back and neck pain with no fromal PT. 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 Treatment Goals Patient/Caregiver Goals Patient wants to get back to previous level of function 6 months ago where she was able to walk more than half a mile without knee and hip pain. Prior Functional Status Baseline Function- ADL's Independent Baseline Function- Mobility Independent Baseline Function- Gait Able to ambulate > 1/2 mile Baseline Function- Work/School Disabled Baseline Function- Other Patient live with her significant other on a single story house with 3 steps to get in with rails. Current Functional Impairments (Reported) Functional Limitations- ADL's Impaired activities that requires > 200 feet ambulation Functional Limitations- Mobility/Gait < 200 ft Functional Limitations- Work/School Disabled Functional Limitations- Recreation/ unable Hobbies Personal Factors Other Personal Factors That May Effect chronicity of the condition Therapy/Recovery and mutiple comorbidities. PT-OP-C Subjective Start: 05/12/18 10:47 Freq: Status: Active Protocol: Document 06/22/18 09:51 EA (Rec: 06/22/18 09:54 EA [id number]) OP-PT Subjective Patient Comments Patient Comments Pt reports went to her doctor and had shoulder x-rays. PT-OP-D Balance Start: 05/12/18 10:47 Freq: Status: Active Protocol: Document 05/12/18 10:48 EA (Rec: 05/12/18 11:14 EA [id number]) OP-PT Balance Assessment Sitting Balance Static Sitting Balance Ability Good Dynamic Sitting Balance Ability Good Standing Balance Static Standing Balance Ability Good Dynamic Standing Balance Ability Fair Balance Tests Single Limb Standing Single Limb- Right < 3 seconds Single Limb- Left unable Elizondo Fall Scale Copyright Permission Caro GAITAN, Caro RM, Denise SJ. Development of a scale to identify the fall- prone patient. Can J Aging 1989;8;366-7. Esteban Elizondo (2009). Preventing patient falls. (2nd ed). [place]: [place]. PT-OP-F Manual Assessment Start: 05/12/18 10:47 Freq: Status: Active Protocol: Document 05/12/18 11:00 EA (Rec: 05/13/18 08:04 EA [id number]) Manual Assessments Soft Tissue Assessment Soft Tissue Mobility Assessment Tightness with hypertonicity to LLE's Joint Mobility Assessment Joint Mobility Assessment empty endfeel to left hip and knee PT-OP-G Mobility & Gait Start: 05/12/18 10:47 Freq: Status: Active Protocol: Document 05/12/18 11:00 EA (Rec: 05/13/18 08:04 EA [id number]) OP Mobility Evaluation Bed Mobility Rolling Indep with Moderate difficulty Supine to and from Sit Indep with minimal difficulty Transfers Sit to Stand Indep Bed to Chair Transfers Indep Car Transfers Indep and able to drive Functional Movements Lifting and Carrying Difficulty, moderate Squats Difficulty, moderate Running Assessment Unable OP Gait Assessment Gait Gait Assistance Required: Independent Distance (Feet) 100 Able to Maintain Weight Bearing Status Yes During Gait Assistive Devices Assistive Device None Gait Deviations General Gait Pattern Antalgic Decreased Stride Length Lateral Trunk Lean Factors Limiting Gait Function Factors Limiting Gait Function Decreased Activity Tolerance Decreased Strength Limited Range of Motion Pain Comments Gait Comments severe antalgic with decreased L WB and left knee hyperextension at stance phase Stair Climbing Evaluation Comments Stair Climbing Comments Not tested due to muscle spasm and pain to left LLE PT-OP-J Posture/Palpation/Skin Start: 05/12/18 10:47 Freq: Status: Active Protocol: Document 05/12/18 11:00 EA (Rec: 05/13/18 08:04 EA [id number]) Posture Evaluation Comments Posture Comments Fair general body psoture in standing Palpation Assessment Location One Palpation Location Ant/posterior LLE extending to gluteal and left low back Palpation Findings Soft Tissue Tightness Spasm Tenderness Skin Assessment Other Assessments Skin Assessment Comments Tracheostomy with medical equipment in place properly, multiple skin scars on both UE 's and anterior neck region. No obvious open wound noted. PT-OP-K Range of Motion Start: 05/12/18 10:47 Freq: Status: Active Protocol: Document 05/12/18 11:00 EA (Rec: 05/13/18 08:08 EA [id number]) Hip Goniometric Range of Motion Hip Measured in Degrees Left Active Testing Position Supine Flexion w/Knee Flexed 90 Right Active Hip ROM WFL Yes Testing Position Supine Knee Goniometric Range of Motion Knee Measured in Degrees Left Patient Position Supine Flexion Active (degrees) 95 Extension Passive (degrees) 0 Right Knee ROM WFL Yes Patient Position Sitting Ankle and Foot Goniometric Range of Motion Ankle and Foot Measured in Degrees Left Active Ankle/Foot ROM WFL Yes PT-OP-L Special Tests Start: 05/12/18 10:47 Freq: Status: Active Protocol: Document 05/12/18 11:00 EA (Rec: 05/13/18 08:04 EA [id number]) Special Tests Other Special Tests Special Tests all special tests to calf, knee, hip, and back are not reliable at this time due to increasing pain, however, SLR was positive when attempted but accompanied with spasms severity. PT-OP-Q Treatments Start: 05/12/18 10:47 Freq: Status: Active Protocol: Document 06/22/18 09:51 EA (Rec: 06/22/18 09:54 EA [id number]) Cardio Equipment Recumbent Stepper (Sci-Fit) Duration (Minutes) 7 Resistance 3 Seat Position 13 Other no arm support Gym Equipment Cable Column (Body Solid) Hip Adduction Resistance 30# Reps/Time x 15 repsx 2 Leg Extension Resistance 30lbs Reps/Time x 15 repsx 2 Hip Abduction Resistance 2o-30 # Reps/Time x 15 repsx 2 Shuttle Recovery Unilateral Squats Resistance 3cord Shuttle Recovery Platform Stable Reps/Time x 12-15 repsx 2 Bilateral Squats Resistance 5 cords Reps/Time x12- 15reps x 2 Shuttle Balance 1 Details NBOS/WBOS Reps/Duration x 4 mins Comments blue string Therapeutic Exercises Supine Exercises 6 Supine Exercise Name Trunk rotation stretch Reps/Minutes x 30SH x 2 reps 5 Supine Exercise Name Hamst/periformis stretch Reps/Minutes x15SH x 3 reps 2 Supine Exercise Name Bridge Comments head three pillows Sidelying Exercises 2 Sidelying Exercise Name Hip ABD Side left Reps/Minutes x 15 reps x 2 1 Sidelying Exercise Name clamshell Side left Reps/Minutes x 15 reps x 2 Sitting Exercises 1 Sitting Exercise Name knee flexion/extnsion Side left Resistance 3# Reps/Minutes x 15 reps x 2 Standing Exercises 3 Standing Exercise Name side steps squats Resistance YTB Reps/Minutes x 4 lines x 12 ft Comments rails support 2 Standing Exercise Name rails sit to stand Reps/Minutes x 10 reps 1 Standing Exercise Name T-ball wall squat Reps/Minutes x 12 reps x 2 Manual Therapy Treatment Soft Tissue Mobilization 1 Body Location left low back, left gluetal and and quads Mobilization Type Myofascial Release Trigger Point Release Intensity/Depth Superficial Comments gentle PT-OP-R Modalities Start: 05/12/18 10:47 Freq: Status: Active Protocol: Document 06/22/18 09:51 EA (Rec: 06/22/18 09:54 EA [id number]) Hot Pack/Cold Pack Treatment Hot Pack Location left low back and hip Patient Position Sidelying Treatment Duration (minutes) 10 PT-OP-T Assessment and Plan Start: 05/12/18 10:47 Freq: Status: Active Protocol: Document 06/22/18 09:51 EA (Rec: 06/22/18 09:54 EA [id number]) Physical Therapy Assessment Assessment Summary Assessment Improved functional mobility and exercises tolerance noted at this time. Patient continued to progress. Physical Therapy Plan Next Visit Focus/Plan Next Note Type Treatment Note Next Visit Plan Advance as tolerated
--- NOTE | 2018-07-13 17:08 | PT.OTN ---
Current Diagnoses Other chronic pain (07/13/18) Pain in left knee (07/13/18) Physical Therapy Treatment Note PT-OP-A Visit Information Start: 05/12/18 10:47 Freq: Status: Active Protocol: Document 07/13/18 14:34 EA (Rec: 07/13/18 14:37 EA [id number]) Out-Patient Physical Therapy Visit Information Visit Information Visit Type Treatment Note Visit Start Time 13:00 Visit Stop Time 13:46 Total Visit Minutes 46 Visit Number 8 PT-OP-B Current Condition Start: 05/12/18 10:47 Freq: Status: Active Protocol: Document 05/12/18 10:48 EA (Rec: 05/12/18 11:14 EA [id number]) Current Condition History of Current Condition Onset Date 6 months ago Current Complaints Left knee, hip, and low back pain rated 7/10 with WB activities History of Current Condition (Patient uses writing to communicate and as well caregiver on side): Present left knee complaint started 6 months ago with no recent injury recalled. Pt reports had dash board knee injury 20 years ago but no hospitalization. She stated that pain gradually started from the L knee and up to hip and low back area. She recalled that four falls in the past 6 months was always due to knee giving up and pain . She mentioned that left knee swelling and pain increased at night specially if she had increased her walking. Multi comorbities including recent throat surgery/treament due to cancer. Tracheostomy which results of no voice production. Chronic low back and neck pain with no fromal PT. 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 Treatment Goals Patient/Caregiver Goals Patient wants to get back to previous level of function 6 months ago where she was able to walk more than half a mile without knee and hip pain. Prior Functional Status Baseline Function- ADL's Independent Baseline Function- Mobility Independent Baseline Function- Gait Able to ambulate > 1/2 mile Baseline Function- Work/School Disabled Baseline Function- Other Patient live with her significant other on a single story house with 3 steps to get in with rails. Current Functional Impairments (Reported) Functional Limitations- ADL's Impaired activities that requires > 200 feet ambulation Functional Limitations- Mobility/Gait < 200 ft Functional Limitations- Work/School Disabled Functional Limitations- Recreation/ unable Hobbies Personal Factors Other Personal Factors That May Effect chronicity of the condition Therapy/Recovery and mutiple comorbidities. PT-OP-C Subjective Start: 05/12/18 10:47 Freq: Status: Active Protocol: Document 07/13/18 14:34 EA (Rec: 07/13/18 14:37 EA [id number]) OP-PT Subjective Patient Comments Patient Comments Pt brought new shoulder pain referral with a result of AC joint DJD on recent X-ray. Patient would like to focus on her right shoulder more than left L knee; states knee is getting better. PT-OP-D Balance Start: 05/12/18 10:47 Freq: Status: Active Protocol: Document 05/12/18 10:48 EA (Rec: 05/12/18 11:14 EA [id number]) OP-PT Balance Assessment Sitting Balance Static Sitting Balance Ability Good Dynamic Sitting Balance Ability Good Standing Balance Static Standing Balance Ability Good Dynamic Standing Balance Ability Fair Balance Tests Single Limb Standing Single Limb- Right < 3 seconds Single Limb- Left unable Elizondo Fall Scale Copyright Permission Caro JM, Caro RM, Denise SJ. Development of a scale to identify the fall- prone patient. Can J Aging 1989;8;366-7. Esteban Elizondo (2009). Preventing patient falls. (2nd ed). [place]: [place]. PT-OP-F Manual Assessment Start: 05/12/18 10:47 Freq: Status: Active Protocol: Document 05/12/18 11:00 EA (Rec: 05/13/18 08:04 EA [id number]) Manual Assessments Soft Tissue Assessment Soft Tissue Mobility Assessment Tightness with hypertonicity to LLE's Joint Mobility Assessment Joint Mobility Assessment empty endfeel to left hip and knee PT-OP-G Mobility & Gait Start: 05/12/18 10:47 Freq: Status: Active Protocol: Document 05/12/18 11:00 EA (Rec: 05/13/18 08:04 EA [id number]) OP Mobility Evaluation Bed Mobility Rolling Indep with Moderate difficulty Supine to and from Sit Indep with minimal difficulty Transfers Sit to Stand Indep Bed to Chair Transfers Indep Car Transfers Indep and able to drive Functional Movements Lifting and Carrying Difficulty, moderate Squats Difficulty, moderate Running Assessment Unable OP Gait Assessment Gait Gait Assistance Required: Independent Distance (Feet) 100 Able to Maintain Weight Bearing Status Yes During Gait Assistive Devices Assistive Device None Gait Deviations General Gait Pattern Antalgic Decreased Stride Length Lateral Trunk Lean Factors Limiting Gait Function Factors Limiting Gait Function Decreased Activity Tolerance Decreased Strength Limited Range of Motion Pain Comments Gait Comments severe antalgic with decreased L WB and left knee hyperextension at stance phase Stair Climbing Evaluation Comments Stair Climbing Comments Not tested due to muscle spasm and pain to left LLE PT-OP-J Posture/Palpation/Skin Start: 05/12/18 10:47 Freq: Status: Active Protocol: Document 07/13/18 15:17 EA (Rec: 07/13/18 16:44 EA [id number]) Posture Evaluation Comments Posture Comments Forward head severe round shoulder and elevated scapula to right side. Palpation Assessment Location One Palpation Location Right upper traps, totaor cuff . Palpation Findings Soft Tissue Tightness Muscle Guarding Tenderness PT-OP-K Range of Motion Start: 05/12/18 10:47 Freq: Status: Active Protocol: Document 07/13/18 15:17 EA (Rec: 07/13/18 16:44 EA [id number]) Shoulder Goniometric Range of Motion Shoulder Measured in Degrees Right Active Testing Position Sitting Flexion 110 Extension 60 Abduction 90 Horizontal Abduction 5 External Rotation at 0 degrees Abduction 50 PT-OP-L Special Tests Start: 05/12/18 10:47 Freq: Status: Active Protocol: Document 05/12/18 11:00 EA (Rec: 05/13/18 08:04 EA [id number]) Special Tests Other Special Tests Special Tests all special tests to calf, knee, hip, and back are not reliable at this time due to increasing pain, however, SLR was positive when attempted but accompanied with spasms severity. PT-OP-Q Treatments Start: 05/12/18 10:47 Freq: Status: Active Protocol: Document 07/13/18 15:17 EA (Rec: 07/13/18 16:44 EA [id number]) Cardio Equipment Recumbent Stepper (Sci-Fit) Duration (Minutes) 7 Resistance 3 Seat Position 13 Other no arm support Gym Equipment Cable Column (Body Solid) Hip Adduction Resistance 30# Reps/Time x 15 repsx 2 Leg Extension Resistance 30lbs Reps/Time x 15 repsx 2 Hip Abduction Resistance 2o-30 # Reps/Time x 15 repsx 2 Shuttle Recovery Bilateral Squats Resistance 5 cords Reps/Time x12- 15reps x 2 Therapeutic Exercises Supine Exercises 6 Supine Exercise Name Trunk rotation stretch Reps/Minutes x 30SH x 2 reps 5 Supine Exercise Name Hamst/periformis stretch Reps/Minutes x15SH x 3 reps 4 Supine Exercise Name PPT w/ SLR Reps/Minutes x 15 reps x 2 Sidelying Exercises 5 Sidelying Exercise Name Fully abd scapulat elev Side right Reps/Minutes x 15 reps x 2 4 Sidelying Exercise Name shoulder hori ABD Side right Reps/Minutes x 15 reps 3 Sidelying Exercise Name Scap adduction Side right Reps/Minutes x 15 reps x 2 2 Sidelying Exercise Name Hip ABD Side left Reps/Minutes x 15 reps x 2 1 Sidelying Exercise Name clamshell Side left Reps/Minutes x 15 reps x 2 Sitting Exercises 3 Sitting Exercise Name Pectoral stretch Side bilateral Reps/Minutes x 15 SH x 2 Standing Exercises 3 Standing Exercise Name side steps squats Resistance YTB Reps/Minutes x 4 lines x 12 ft Comments rails support 2 Standing Exercise Name rails sit to stand Reps/Minutes x 10 reps Manual Therapy Treatment Soft Tissue Mobilization 2 Body Location Right uppr traps, rotator cuff Mobilization Type Myofascial Release Rolling Trigger Point Release Intensity/Depth Superficial Body Position Sidelying PT-OP-R Modalities Start: 05/12/18 10:47 Freq: Status: Active Protocol: Document 07/13/18 15:17 EA (Rec: 07/13/18 16:44 EA [id number]) Hot Pack/Cold Pack Treatment Hot Pack Location Right shoulder Patient Position Sidelying Treatment Duration (minutes) 10 PT-OP-T Assessment and Plan Start: 05/12/18 10:47 Freq: Status: Active Protocol: Document 07/13/18 15:17 EA (Rec: 07/13/18 16:44 EA [id number]) Physical Therapy Assessment Rehab Potential Rehabilitation Potential Fair Evaluation Complexity Number of Personal Factors/Comorbidities 3 or More Impairments Impairments Activity Tolerance Balance Functional Mobility Gait Pain Posture ROM Soft Tissue Mobility Strength Transfers Goals Five Impairment Impaired shoulder [facility] Social Worker Goal (LTG) Patient will exhibit WFL ROM to enhance shoulder functional overhead reach. LTG Duration 4 wks Four Impairment Impaired distance ambulation tolerance Healthcare Social Worker Goal (LTG) Patient will ambulate > 1/2 mile with no increase in symptoms. LTG Duration 4 wks ( Good improvement) Three Impairment Impaired gait Jail Goal (LTG) Patient will demonstrate near to normal gait LTG Duration 4 wks (Good improvement) Two Impairment LEFS (Lower extrimities Functionasl Scale) of 49/80 Healthcare Social Worker Goal (LTG) Patient will have LEFS of > 60 LTG Duration 5 wks (good improvement) One Impairment No HEP in place Healthcare Social Worker Goal (LTG) Patient will exhibit independent on home exercises program LTG Duration 3 wks (improving) Progress Towards Goals Progress Towards Goals Slow Progress due to Attendance Issues Slow Progress due to Medical Issues Assessment Summary Assessment Patient exhibited improved left LE ROM, strength, pain and functional mobility. She has been using cane for most her mobility with no reported fall. Right shoulder assessment reveals exaggerated elevated scapula with weak scapular adductor and shoulder horizontal abductors. Severe posture with history of fall to right side probably led to abnormal scapular alignment. Patient would continue to benefit with skilled PT to address right shoulder and left LLE issues. Physical Therapy Plan Frequency and Duration Frequency of Treatment 2x/Week Duration of Treatment 6 wks Plan of Care Start Date 07/13/18 Plan of Care End Date 08/24/18 Therapeutic Interventions Therapeutic Interventions Balance Training Gait Training Home Exercise Program Joint Mobilizations Manual Therapy Patient/Caregiver Education Self-Care/Home Management Soft Tissue Mobilization Taping Therapeutic Exercises Modalities Cold Pack/Ice Massage Electric Stimulation Hot Packs Ultrasound Next Visit Focus/Plan Next Note Type Treatment Note
--- NOTE | 2018-07-19 17:09 | PT.OTN ---
Current Diagnoses Other chronic pain (07/19/18) Pain in left knee (07/19/18) Physical Therapy Treatment Note PT-OP-A Visit Information Start: 05/12/18 10:47 Freq: Status: Active Protocol: Document 07/19/18 13:41 EA (Rec: 07/19/18 13:48 EA [id number]) Out-Patient Physical Therapy Visit Information Visit Information Visit Type Treatment Note Visit Start Time 13:00 Visit Stop Time 13:46 Total Visit Minutes 46 Visit Number 9 PT-OP-B Current Condition Start: 05/12/18 10:47 Freq: Status: Active Protocol: Document 05/12/18 10:48 EA (Rec: 05/12/18 11:14 EA [id number]) Current Condition History of Current Condition Onset Date 6 months ago Current Complaints Left knee, hip, and low back pain rated 7/10 with WB activities History of Current Condition (Patient uses writing to communicate and as well caregiver on side): Present left knee complaint started 6 months ago with no recent injury recalled. Pt reports had dash board knee injury 20 years ago but no hospitalization. She stated that pain gradually started from the L knee and up to hip and low back area. She recalled that four falls in the past 6 months was always due to knee giving up and pain . She mentioned that left knee swelling and pain increased at night specially if she had increased her walking. Multi comorbities including recent throat surgery/treament due to cancer. Tracheostomy which results of no voice production. Chronic low back and neck pain with no fromal PT. 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 Treatment Goals Patient/Caregiver Goals Patient wants to get back to previous level of function 6 months ago where she was able to walk more than half a mile without knee and hip pain. Prior Functional Status Baseline Function- ADL's Independent Baseline Function- Mobility Independent Baseline Function- Gait Able to ambulate > 1/2 mile Baseline Function- Work/School Disabled Baseline Function- Other Patient live with her significant other on a single story house with 3 steps to get in with rails. Current Functional Impairments (Reported) Functional Limitations- ADL's Impaired activities that requires > 200 feet ambulation Functional Limitations- Mobility/Gait < 200 ft Functional Limitations- Work/School Disabled Functional Limitations- Recreation/ unable Hobbies Personal Factors Other Personal Factors That May Effect chronicity of the condition Therapy/Recovery and mutiple comorbidities. PT-OP-C Subjective Start: 05/12/18 10:47 Freq: Status: Active Protocol: Document 07/19/18 13:41 EA (Rec: 07/19/18 13:48 EA [id number]) OP-PT Subjective Patient Comments Patient Comments Pt report left hip and knee is feeling better;states would like to focus her Pt on right shoulder. She also reports that she was in [facility] few days ago due to neck infection and was given antibiotics. PT-OP-D Balance Start: 05/12/18 10:47 Freq: Status: Active Protocol: Document 05/12/18 10:48 EA (Rec: 05/12/18 11:14 EA [id number]) OP-PT Balance Assessment Sitting Balance Static Sitting Balance Ability Good Dynamic Sitting Balance Ability Good Standing Balance Static Standing Balance Ability Good Dynamic Standing Balance Ability Fair Balance Tests Single Limb Standing Single Limb- Right < 3 seconds Single Limb- Left unable Elizondo Fall Scale Copyright Permission Caro JM, Caro RM, Denise SJ. Development of a scale to identify the fall- prone patient. Can J Aging 1989;8;366-7. Esteban Elizondo (2009). Preventing patient falls. (2nd ed). [place]: [place]. PT-OP-F Manual Assessment Start: 05/12/18 10:47 Freq: Status: Active Protocol: Document 05/12/18 11:00 EA (Rec: 05/13/18 08:04 EA [id number]) Manual Assessments Soft Tissue Assessment Soft Tissue Mobility Assessment Tightness with hypertonicity to LLE's Joint Mobility Assessment Joint Mobility Assessment empty endfeel to left hip and knee PT-OP-G Mobility & Gait Start: 05/12/18 10:47 Freq: Status: Active Protocol: Document 05/12/18 11:00 EA (Rec: 05/13/18 08:04 EA [id number]) OP Mobility Evaluation Bed Mobility Rolling Indep with Moderate difficulty Supine to and from Sit Indep with minimal difficulty Transfers Sit to Stand Indep Bed to Chair Transfers Indep Car Transfers Indep and able to drive Functional Movements Lifting and Carrying Difficulty, moderate Squats Difficulty, moderate Running Assessment Unable OP Gait Assessment Gait Gait Assistance Required: Independent Distance (Feet) 100 Able to Maintain Weight Bearing Status Yes During Gait Assistive Devices Assistive Device None Gait Deviations General Gait Pattern Antalgic Decreased Stride Length Lateral Trunk Lean Factors Limiting Gait Function Factors Limiting Gait Function Decreased Activity Tolerance Decreased Strength Limited Range of Motion Pain Comments Gait Comments severe antalgic with decreased L WB and left knee hyperextension at stance phase Stair Climbing Evaluation Comments Stair Climbing Comments Not tested due to muscle spasm and pain to left LLE PT-OP-J Posture/Palpation/Skin Start: 05/12/18 10:47 Freq: Status: Active Protocol: Document 07/13/18 15:17 EA (Rec: 07/13/18 16:44 EA [id number]) Posture Evaluation Comments Posture Comments Forward head severe round shoulder and elevated scapula to right side. Palpation Assessment Location One Palpation Location Right upper traps, totaor cuff . Palpation Findings Soft Tissue Tightness Muscle Guarding Tenderness PT-OP-K Range of Motion Start: 05/12/18 10:47 Freq: Status: Active Protocol: Document 07/13/18 15:17 EA (Rec: 07/13/18 16:44 EA [id number]) Shoulder Goniometric Range of Motion Shoulder Measured in Degrees Right Active Testing Position Sitting Flexion 110 Extension 60 Abduction 90 Horizontal Abduction 5 External Rotation at 0 degrees Abduction 50 PT-OP-L Special Tests Start: 05/12/18 10:47 Freq: Status: Active Protocol: Document 05/12/18 11:00 EA (Rec: 05/13/18 08:04 EA [id number]) Special Tests Other Special Tests Special Tests all special tests to calf, knee, hip, and back are not reliable at this time due to increasing pain, however, SLR was positive when attempted but accompanied with spasms severity. PT-OP-Q Treatments Start: 05/12/18 10:47 Freq: Status: Active Protocol: Document 07/19/18 13:41 EA (Rec: 07/19/18 13:48 EA [id number]) Gym Equipment Cable Column (Body Solid) Rows Details Cable sitted row Resistance 10# Reps/Time x 12 reps x 2 sets Therapeutic Exercises Sidelying Exercises 6 Sidelying Exercise Name Shoulder ABD Reps/Minutes x 12 reps x 2 sets 5 Sidelying Exercise Name Fully abd scapulat elev Side right Reps/Minutes x 15 reps x 2 4 Sidelying Exercise Name shoulder hori ABD Side right Reps/Minutes x 15 reps 3 Sidelying Exercise Name Scap adduction Side right Reps/Minutes x 15 reps x 2 2 Sidelying Exercise Name Hip ABD Side left Reps/Minutes x 15 reps x 2 1 Sidelying Exercise Name clamshell Side left Reps/Minutes x 15 reps x 2 Sitting Exercises 4 Sitting Exercise Name T-bar shoulder extension. Reps/Minutes x 12 reps x 2 Comments ensure scap adduction 3 Sitting Exercise Name Pectoral stretch Side bilateral Reps/Minutes x 15 SH x 2 Manual Therapy Treatment Soft Tissue Mobilization 2 Body Location Right uppr traps, rotator cuff Mobilization Type Myofascial Release Rolling Trigger Point Release Intensity/Depth Superficial Body Position Sidelying PT-OP-R Modalities Start: 05/12/18 10:47 Freq: Status: Active Protocol: Document 07/19/18 13:48 EA (Rec: 07/19/18 13:48 EA [id number]) Hot Pack/Cold Pack Treatment Hot Pack Location Right shoulder Patient Position Sidelying Treatment Duration (minutes) 10 PT-OP-T Assessment and Plan Start: 05/12/18 10:47 Freq: Status: Active Protocol: Document 07/19/18 13:41 EA (Rec: 07/19/18 13:48 EA [id number]) Physical Therapy Assessment Assessment Summary Assessment Pt requires tactile and verbal cues to stabilize scapula in all shoulder mobility. Tolerated treatment but requires rest. Physical Therapy Plan Next Visit Focus/Plan Next Note Type Treatment Note Next Visit Plan cont. with current plan.
--- NOTE | 2018-07-26 14:54 | PT.OTN ---
Current Diagnoses Other chronic pain (07/26/18) Pain in left knee (07/26/18) Physical Therapy Treatment Note PT-OP-A Visit Information Start: 05/12/18 10:47 Freq: Status: Active Protocol: Document 07/26/18 11:00 EA (Rec: 07/26/18 11:14 EA [id number]) Out-Patient Physical Therapy Visit Information Visit Information Visit Type Treatment Note Visit Start Time 09:45 Visit Stop Time 10:30 Total Visit Minutes 48 Visit Number 10 PT-OP-B Current Condition Start: 05/12/18 10:47 Freq: Status: Active Protocol: Document 05/12/18 10:48 EA (Rec: 05/12/18 11:14 EA [id number]) Current Condition History of Current Condition Onset Date 6 months ago Current Complaints Left knee, hip, and low back pain rated 7/10 with WB activities History of Current Condition (Patient uses writing to communicate and as well caregiver on side): Present left knee complaint started 6 months ago with no recent injury recalled. Pt reports had dash board knee injury 20 years ago but no hospitalization. She stated that pain gradually started from the L knee and up to hip and low back area. She recalled that four falls in the past 6 months was always due to knee giving up and pain . She mentioned that left knee swelling and pain increased at night specially if she had increased her walking. Multi comorbities including recent throat surgery/treament due to cancer. Tracheostomy which results of no voice production. Chronic low back and neck pain with no fromal PT. 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 Treatment Goals Patient/Caregiver Goals Patient wants to get back to previous level of function 6 months ago where she was able to walk more than half a mile without knee and hip pain. Prior Functional Status Baseline Function- ADL's Independent Baseline Function- Mobility Independent Baseline Function- Gait Able to ambulate > 1/2 mile Baseline Function- Work/School Disabled Baseline Function- Other Patient live with her significant other on a single story house with 3 steps to get in with rails. Current Functional Impairments (Reported) Functional Limitations- ADL's Impaired activities that requires > 200 feet ambulation Functional Limitations- Mobility/Gait < 200 ft Functional Limitations- Work/School Disabled Functional Limitations- Recreation/ unable Hobbies Personal Factors Other Personal Factors That May Effect chronicity of the condition Therapy/Recovery and mutiple comorbidities. PT-OP-C Subjective Start: 05/12/18 10:47 Freq: Status: Active Protocol: Document 07/26/18 11:00 EA (Rec: 07/26/18 11:14 EA [id number]) OP-PT Subjective Patient Comments Patient Comments Pt reports left knee is much feeling better. She still c/o shoulder pain rated 5/10 and weakness. Patient Reported Progress Improving Patient Questionnaires Lower Extremity Functional Scale LEFS Impairment 1 to 19% Impaired (Score 63-79 ) Quick Dash- Upper Extremity Quick Dash UE Score 20 Quick Dash UE Impairment 20 to 39% Impaired (Score 20- 39) PT-OP-D Balance Start: 05/12/18 10:47 Freq: Status: Active Protocol: Document 05/12/18 10:48 EA (Rec: 05/12/18 11:14 EA [id number]) OP-PT Balance Assessment Sitting Balance Static Sitting Balance Ability Good Dynamic Sitting Balance Ability Good Standing Balance Static Standing Balance Ability Good Dynamic Standing Balance Ability Fair Balance Tests Single Limb Standing Single Limb- Right < 3 seconds Single Limb- Left unable Elizondo Fall Scale Copyright Permission Caro JM, Caro RM, Denise SJ. Development of a scale to identify the fall- prone patient. Can J Aging 1989;8;366-7. Esteban Elizondo (2009). Preventing patient falls. (2nd ed). Parke: [place]. PT-OP-F Manual Assessment Start: 05/12/18 10:47 Freq: Status: Active Protocol: Document 05/12/18 11:00 EA (Rec: 05/13/18 08:04 EA [id number]) Manual Assessments Soft Tissue Assessment Soft Tissue Mobility Assessment Tightness with hypertonicity to LLE's Joint Mobility Assessment Joint Mobility Assessment empty endfeel to left hip and knee PT-OP-G Mobility & Gait Start: 05/12/18 10:47 Freq: Status: Active Protocol: Document 05/12/18 11:00 EA (Rec: 05/13/18 08:04 EA [id number]) OP Mobility Evaluation Bed Mobility Rolling Indep with Moderate difficulty Supine to and from Sit Indep with minimal difficulty Transfers Sit to Stand Indep Bed to Chair Transfers Indep Car Transfers Indep and able to drive Functional Movements Lifting and Carrying Difficulty, moderate Squats Difficulty, moderate Running Assessment Unable OP Gait Assessment Gait Gait Assistance Required: Independent Distance (Feet) 100 Able to Maintain Weight Bearing Status Yes During Gait Assistive Devices Assistive Device None Gait Deviations General Gait Pattern Antalgic Decreased Stride Length Lateral Trunk Lean Factors Limiting Gait Function Factors Limiting Gait Function Decreased Activity Tolerance Decreased Strength Limited Range of Motion Pain Comments Gait Comments severe antalgic with decreased L WB and left knee hyperextension at stance phase Stair Climbing Evaluation Comments Stair Climbing Comments Not tested due to muscle spasm and pain to left LLE PT-OP-J Posture/Palpation/Skin Start: 05/12/18 10:47 Freq: Status: Active Protocol: Document 07/26/18 11:00 EA (Rec: 07/26/18 11:14 EA [id number]) Posture Evaluation Comments Posture Comments Forward head severe round shoulder and elevated scapula to right side. Palpation Assessment Location One Palpation Location Right upper traps, totaor cuff . Palpation Findings Soft Tissue Tightness Muscle Guarding Tenderness PT-OP-K Range of Motion Start: 05/12/18 10:47 Freq: Status: Active Protocol: Document 07/26/18 11:00 EA (Rec: 07/26/18 11:14 EA [id number]) Shoulder Goniometric Range of Motion Shoulder Measured in Degrees Right Active Testing Position Sitting Flexion 110 Extension 60 Abduction 90 Horizontal Abduction 5 External Rotation at 0 degrees Abduction 50 Hip Goniometric Range of Motion Hip Measured in Degrees Left Active Testing Position Supine Flexion w/Knee Flexed 110 Right Active Hip ROM WFL Yes Testing Position Supine Knee Goniometric Range of Motion Knee Measured in Degrees Left Patient Position Supine Flexion Active (degrees) 115 Extension Passive (degrees) 0 Right Knee ROM WFL Yes Patient Position Sitting PT-OP-L Special Tests Start: 05/12/18 10:47 Freq: Status: Active Protocol: Document 05/12/18 11:00 EA (Rec: 05/13/18 08:04 EA [id number]) Special Tests Other Special Tests Special Tests all special tests to calf, knee, hip, and back are not reliable at this time due to increasing pain, however, SLR was positive when attempted but accompanied with spasms severity. PT-OP-Q Treatments Start: 05/12/18 10:47 Freq: Status: Active Protocol: Document 07/26/18 11:00 EA (Rec: 07/26/18 11:14 EA [id number]) Cardio Equipment Recumbent Stepper (Sci-Fit) Duration (Minutes) 8 Resistance 3 Seat Position 13 Other no arm support Gym Equipment Cable Column (Body Solid) Lat Pull Down Details 20# Reps/Time x 12 reps Rows Details Cable sitted row Resistance 10-20# Reps/Time x 12 reps x 2 sets Therapeutic Exercises Sidelying Exercises 6 Sidelying Exercise Name scapular/shoulder depression Resistance manual Reps/Minutes x 12 reps x 2 sets Comments tactile cues 5 Sidelying Exercise Name Fully abd scapulat elev Side right Reps/Minutes x 15 reps x 2 4 Sidelying Exercise Name shoulder hori ABD Side right Reps/Minutes x 15 reps x 2 sets Comments tactile cues 3 Sidelying Exercise Name Scap adduction Side right Reps/Minutes x 15 reps x 2 Comments tactile cues 2 Sidelying Exercise Name Hip ABD Side left Reps/Minutes x 15 reps x 2 1 Sidelying Exercise Name clamshell Side left Reps/Minutes x 15 reps x 2 Sitting Exercises 4 Sitting Exercise Name T-bar shoulder extension. Resistance 2# T-bar Reps/Minutes x 12 reps x 2 Comments ensure scap adduction 3 Sitting Exercise Name Pectoral stretch Side bilateral Reps/Minutes x 15 SH x 2 2 Sitting Exercise Name shoulder side raises Reps/Minutes x 12 reps Comments AAROM Manual Therapy Treatment Manual Techniques 1 Type Passive stretch: shoulder elevators, scap protractors. Reps/Duration x 2 reps x 2 sets PT-OP-R Modalities Start: 05/12/18 10:47 Freq: Status: Active Protocol: Document 07/26/18 12:08 EA (Rec: 07/26/18 12:15 EA [id number]) Hot Pack/Cold Pack Treatment Hot Pack Location Right shoulder Patient Position Sidelying Treatment Duration (minutes) 10 PT-OP-T Assessment and Plan Start: 05/12/18 10:47 Freq: Status: Active Protocol: Document 07/26/18 12:08 EA (Rec: 07/26/18 12:15 EA [id number]) Physical Therapy Assessment Rehab Potential Rehabilitation Potential Fair Impairments Impairments Activity Tolerance Balance Functional Mobility Gait Pain Posture ROM Soft Tissue Mobility Strength Transfers Goals Six Impairment Poor neck-shoulder posture Fpc Goal (LTG) Patient will exhibit improve posture to improve shoulder- scapular mobility. LTG Duration 4 wks Five Impairment Impaired shoulder AROM Fpc Goal (LTG) Patient will exhibit WFL ROM to enhance shoulder functional overhead reach. LTG Duration 4 wks Four Impairment Impaired distance ambulation tolerance Chin Strap Cutter Goal (LTG) Patient will ambulate > 1/2 mile with no increase in symptoms. LTG Duration 4 wks ( Good improvement) Three Impairment Impaired gait Chin Strap Cutter Goal (LTG) Patient will demonstrate near to normal gait LTG Duration 4 wks (Good improvement) Two Impairment LEFS (Lower extremities Functional Scale) of 49/80 Chin Strap Cutter Goal (LTG) Patient will have LEFS of > 60 LTG Duration 5 wks (good improvement) One Impairment No HEP in place for shoulder exercises Chin Strap Cutter Goal (LTG) Patient will exhibit independent on home exercises program LTG Duration 3 wks (improving) Progress Towards Goals Progress Towards Goals Slow Progress due to Medical Issues Assessment Summary Assessment Right shoulder assessment reveals exaggerated elevated scapula with weak scapular adductor shoulder horizontal abductors, depressors. Severe posture with history of fall to right side probably led to abnormal scapular alignment and disused weakness. Patient would continue to benefit with skilled PT to address right shoulder weakness, poor posture and left LE slight deficits at this time. Physical Therapy Plan Frequency and Duration Frequency of Treatment 2x/Week Duration of Treatment 6 wks Plan of Care Start Date 07/19/18 Plan of Care End Date 08/24/18 Therapeutic Interventions Therapeutic Interventions Balance Training Gait Training Home Exercise Program Joint Mobilizations Manual Therapy Patient/Caregiver Education Self-Care/Home Management Soft Tissue Mobilization Taping Therapeutic Exercises Modalities Cold Pack/Ice Massage Electric Stimulation Hot Packs Ultrasound Next Visit Focus/Plan Next Note Type Treatment Note Next Visit Plan continue shoulder strengthening and postural exercises.
--- NOTE | 2018-07-26 15:01 | PT.OPPOC ---
Current Diagnoses Other chronic pain (07/26/18) Pain in left knee (07/26/18) Provider Visit Care Team Role Provider Type Eusebio Hammer MD Attending Provider Non-Staff Primary Care Provider Specialty: Internal Medicine Address: [address] [place] [address], [id number] Email: Plan Of Care PT-OP-T Assessment and Plan Start: 05/12/18 10:47 Freq: Status: Active Protocol: Document 07/26/18 12:08 EA (Rec: 07/26/18 12:15 EA [id number]) Physical Therapy Assessment Rehab Potential Rehabilitation Potential Fair Impairments Impairments Activity Tolerance Balance Functional Mobility Gait Pain Posture ROM Soft Tissue Mobility Strength Transfers Goals Six Impairment Poor neck-shoulder posture Alf Goal (LTG) Patient will exhibit improve posture to improve shoulder- scapular mobility. LTG Duration 4 wks Five Impairment Impaired shoulder AROM Alf Goal (LTG) Patient will exhibit WFL ROM to enhance shoulder functional overhead reach. LTG Duration 4 wks Four Impairment Impaired distance ambulation tolerance Lineman A Class Goal (LTG) Patient will ambulate > 1/2 mile with no increase in symptoms. LTG Duration 4 wks ( Good improvement) Three Impairment Impaired gait Lineman A Class Goal (LTG) Patient will demonstrate near to normal gait LTG Duration 4 wks (Good improvement) Two Impairment LEFS (Lower extremities Functional Scale) of 49/80 Lineman A Class Goal (LTG) Patient will have LEFS of > 60 LTG Duration 5 wks (good improvement) One Impairment No HEP in place for shoulder exercises Alf Goal (LTG) Patient will exhibit independent on home exercises program LTG Duration 3 wks (improving) Progress Towards Goals Progress Towards Goals Slow Progress due to Medical Issues Assessment Summary Assessment Right shoulder assessment reveals exaggerated elevated scapula with weak scapular adductor shoulder horizontal abductors, depressors. Severe posture with history of fall to right side probably led to abnormal scapular alignment and disused weakness. Patient would continue to benefit with skilled PT to address right shoulder weakness, poor posture and left LE slight deficits at this time. Physical Therapy Plan Frequency and Duration Frequency of Treatment 2x/Week Duration of Treatment 6 wks Plan of Care Start Date 07/26/18 Plan of Care End Date 09/06/18 Therapeutic Interventions Therapeutic Interventions Balance Training Gait Training Home Exercise Program Joint Mobilizations Manual Therapy Patient/Caregiver Education Self-Care/Home Management Soft Tissue Mobilization Taping Therapeutic Exercises Modalities Cold Pack/Ice Massage Electric Stimulation Hot Packs Ultrasound Next Visit Focus/Plan Next Note Type Treatment Note Next Visit Plan continue shoulder strengthening and postural exercises. Plan of Care Dates Plan of Care Start Date 07/26/18 Plan of Care End Date 09/06/18 Please Sign and Return: I have reviewed this Plan of Care and certify that the skilled therapy services above are required to meet the patient?s needs. Physician Signature Date Printed Name and Credentials Clinical Instructor Signature Printed Name and Credentials
--- NOTE | 2018-08-03 17:25 | PT.OTN ---
Current Diagnoses Other chronic pain (08/03/18) Pain in left knee (08/03/18) Physical Therapy Treatment Note PT-OP-A Visit Information Start: 05/12/18 10:47 Freq: Status: Active Protocol: Document 08/03/18 17:07 EA (Rec: 08/03/18 17:25 EA [id number]) Out-Patient Physical Therapy Visit Information Visit Information Visit Type Treatment Note Visit Start Time 16:00 Visit Stop Time 16:45 Total Visit Minutes 45 Visit Number 11 PT-OP-B Current Condition Start: 05/12/18 10:47 Freq: Status: Active Protocol: Document 05/12/18 10:48 EA (Rec: 05/12/18 11:14 EA [id number]) Current Condition History of Current Condition Onset Date 6 months ago Current Complaints Left knee, hip, and low back pain rated 7/10 with WB activities History of Current Condition (Patient uses writing to communicate and as well caregiver on side): Present left knee complaint started 6 months ago with no recent injury recalled. Pt reports had dash board knee injury 20 years ago but no hospitalization. She stated that pain gradually started from the L knee and up to hip and low back area. She recalled that four falls in the past 6 months was always due to knee giving up and pain . She mentioned that left knee swelling and pain increased at night specially if she had increased her walking. Multi comorbities including recent throat surgery/treament due to cancer. Tracheostomy which results of no voice production. Chronic low back and neck pain with no fromal PT. 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 Treatment Goals Patient/Caregiver Goals Patient wants to get back to previous level of function 6 months ago where she was able to walk more than half a mile without knee and hip pain. Prior Functional Status Baseline Function- ADL's Independent Baseline Function- Mobility Independent Baseline Function- Gait Able to ambulate > 1/2 mile Baseline Function- Work/School Disabled Baseline Function- Other Patient live with her significant other on a single story house with 3 steps to get in with rails. Current Functional Impairments (Reported) Functional Limitations- ADL's Impaired activities that requires > 200 feet ambulation Functional Limitations- Mobility/Gait < 200 ft Functional Limitations- Work/School Disabled Functional Limitations- Recreation/ unable Hobbies Personal Factors Other Personal Factors That May Effect chronicity of the condition Therapy/Recovery and mutiple comorbidities. PT-OP-C Subjective Start: 05/12/18 10:47 Freq: Status: Active Protocol: Document 08/03/18 17:07 EA (Rec: 08/03/18 17:25 EA [id number]) OP-PT Subjective Patient Comments Patient Comments Pt reports fell on the road close to home four days due to SOB; states went to [facility] and and was diagnosed with syncope due to SOB. Patient is discharge to home and today she complaint of right knee pain from the fall; states no major injury or broken bone from the fall. PT-OP-D Balance Start: 05/12/18 10:47 Freq: Status: Active Protocol: Document 05/12/18 10:48 EA (Rec: 05/12/18 11:14 EA [id number]) OP-PT Balance Assessment Sitting Balance Static Sitting Balance Ability Good Dynamic Sitting Balance Ability Good Standing Balance Static Standing Balance Ability Good Dynamic Standing Balance Ability Fair Balance Tests Single Limb Standing Single Limb- Right < 3 seconds Single Limb- Left unable Elizondo Fall Scale Copyright Permission Caro GAITAN, Caro RM, Denise SJ. Development of a scale to identify the fall- prone patient. Can J Aging 1989;8;366-7. Esteban Elizondo (2009). Preventing patient falls. (2nd ed). [employer]: [place]. PT-OP-F Manual Assessment Start: 05/12/18 10:47 Freq: Status: Active Protocol: Document 05/12/18 11:00 EA (Rec: 05/13/18 08:04 EA [id number]) Manual Assessments Soft Tissue Assessment Soft Tissue Mobility Assessment Tightness with hypertonicity to LLE's Joint Mobility Assessment Joint Mobility Assessment empty endfeel to left hip and knee PT-OP-G Mobility & Gait Start: 05/12/18 10:47 Freq: Status: Active Protocol: Document 05/12/18 11:00 EA (Rec: 05/13/18 08:04 EA [id number]) OP Mobility Evaluation Bed Mobility Rolling Indep with Moderate difficulty Supine to and from Sit Indep with minimal difficulty Transfers Sit to Stand Indep Bed to Chair Transfers Indep Car Transfers Indep and able to drive Functional Movements Lifting and Carrying Difficulty, moderate Squats Difficulty, moderate Running Assessment Unable OP Gait Assessment Gait Gait Assistance Required: Independent Distance (Feet) 100 Able to Maintain Weight Bearing Status Yes During Gait Assistive Devices Assistive Device None Gait Deviations General Gait Pattern Antalgic Decreased Stride Length Lateral Trunk Lean Factors Limiting Gait Function Factors Limiting Gait Function Decreased Activity Tolerance Decreased Strength Limited Range of Motion Pain Comments Gait Comments severe antalgic with decreased L WB and left knee hyperextension at stance phase Stair Climbing Evaluation Comments Stair Climbing Comments Not tested due to muscle spasm and pain to left LLE PT-OP-J Posture/Palpation/Skin Start: 05/12/18 10:47 Freq: Status: Active Protocol: Document 07/26/18 11:00 EA (Rec: 07/26/18 11:14 EA [id number]) Posture Evaluation Comments Posture Comments Forward head severe round shoulder and elevated scapula to right side. Palpation Assessment Location One Palpation Location Right upper traps, totaor cuff . Palpation Findings Soft Tissue Tightness Muscle Guarding Tenderness PT-OP-K Range of Motion Start: 05/12/18 10:47 Freq: Status: Active Protocol: Document 07/26/18 11:00 EA (Rec: 07/26/18 11:14 EA [id number]) Shoulder Goniometric Range of Motion Shoulder Measured in Degrees Right Active Testing Position Sitting Flexion 110 Extension 60 Abduction 90 Horizontal Abduction 5 External Rotation at 0 degrees Abduction 50 Hip Goniometric Range of Motion Hip Measured in Degrees Left Active Testing Position Supine Flexion w/Knee Flexed 110 Right Active Hip ROM WFL Yes Testing Position Supine Knee Goniometric Range of Motion Knee Measured in Degrees Left Patient Position Supine Flexion Active (degrees) 115 Extension Passive (degrees) 0 Right Knee ROM WFL Yes Patient Position Sitting PT-OP-L Special Tests Start: 05/12/18 10:47 Freq: Status: Active Protocol: Document 05/12/18 11:00 EA (Rec: 05/13/18 08:04 EA [id number]) Special Tests Other Special Tests Special Tests all special tests to calf, knee, hip, and back are not reliable at this time due to increasing pain, however, SLR was positive when attempted but accompanied with spasms severity. PT-OP-Q Treatments Start: 05/12/18 10:47 Freq: Status: Active Protocol: Document 08/03/18 17:07 EA (Rec: 08/03/18 17:25 EA [id number]) Therapeutic Exercises Supine Exercises 6 Supine Exercise Name T-bar flexion Reps/Minutes x15 reps x 2 sets 5 Supine Exercise Name T- bar press Reps/Minutes x 15 reps x 2 sets 4 Supine Exercise Name Elbow push up Reps/Minutes x 5SH x 5 reps Sidelying Exercises 6 Sidelying Exercise Name scapular/shoulder depression Resistance manual Reps/Minutes x 12 reps x 2 sets Comments tactile cues 5 Sidelying Exercise Name Fully abd scapulat elev Side right Reps/Minutes x 15 reps x 2 4 Sidelying Exercise Name shoulder hori ABD Side right Reps/Minutes x 15 reps x 2 sets Comments tactile cues 3 Sidelying Exercise Name Scap adduction Side right Reps/Minutes x 15 reps x 2 Comments tactile cues Sitting Exercises 4 Sitting Exercise Name T-bar shoulder extension. Resistance 2# T-bar Reps/Minutes x 12 reps x 2 Comments ensure scap adduction 3 Sitting Exercise Name Pectoral stretch Side bilateral Reps/Minutes x 15 SH x 2 2 Sitting Exercise Name shoulder side raises Reps/Minutes x 12 reps Comments AAROM Manual Therapy Treatment Soft Tissue Mobilization 2 Body Location Right uppr traps, rotator cuff Mobilization Type Myofascial Release Rolling Trigger Point Release Intensity/Depth Superficial Body Position Sidelying 1 Intensity/Depth Superficial PT-OP-R Modalities Start: 05/12/18 10:47 Freq: Status: Active Protocol: Document 08/03/18 17:07 EA (Rec: 08/03/18 17:25 EA [id number]) Hot Pack/Cold Pack Treatment Hot Pack Location Right shoulder Patient Position Sidelying Treatment Duration (minutes) 10 PT-OP-T Assessment and Plan Start: 05/12/18 10:47 Freq: Status: Active Protocol: Document 08/03/18 17:07 EA (Rec: 08/03/18 17:25 EA [id number]) Physical Therapy Assessment Assessment Summary Assessment Pt tolerated shoulder treatment today with improved shoulder control; however, SL position decreased tolerance and therefore requires rest. Physical Therapy Plan Next Visit Focus/Plan Next Note Type Treatment Note Next Visit Plan continue shoulder strengthening and postural exercises.
--- NOTE | 2018-08-05 10:43 | PT.OTN ---
Current Diagnoses Other chronic pain (08/05/18) Pain in right shoulder (08/05/18) Pain in left knee (08/05/18) Physical Therapy Treatment Note PT-OP-A Visit Information Start: 05/12/18 10:47 Freq: Status: Active Protocol: Document 08/05/18 09:43 EA (Rec: 08/05/18 09:47 EA [id number]) Out-Patient Physical Therapy Visit Information Visit Information Visit Start Time 09:00 Visit Stop Time 09:45 Total Visit Minutes 945 Visit Number 12 PT-OP-B Current Condition Start: 05/12/18 10:47 Freq: Status: Active Protocol: Document 05/12/18 10:48 EA (Rec: 05/12/18 11:14 EA [id number]) Current Condition History of Current Condition Onset Date 6 months ago Current Complaints Left knee, hip, and low back pain rated 7/10 with WB activities History of Current Condition (Patient uses writing to communicate and as well caregiver on side): Present left knee complaint started 6 months ago with no recent injury recalled. Pt reports had dash board knee injury 20 years ago but no hospitalization. She stated that pain gradually started from the L knee and up to hip and low back area. She recalled that four falls in the past 6 months was always due to knee giving up and pain . She mentioned that left knee swelling and pain increased at night specially if she had increased her walking. Multi comorbities including recent throat surgery/treament due to cancer. Tracheostomy which results of no voice production. Chronic low back and neck pain with no fromal PT. 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 Treatment Goals Patient/Caregiver Goals Patient wants to get back to previous level of function 6 months ago where she was able to walk more than half a mile without knee and hip pain. Prior Functional Status Baseline Function- ADL's Independent Baseline Function- Mobility Independent Baseline Function- Gait Able to ambulate > 1/2 mile Baseline Function- Work/School Disabled Baseline Function- Other Patient live with her significant other on a single story house with 3 steps to get in with rails. Current Functional Impairments (Reported) Functional Limitations- ADL's Impaired activities that requires > 200 feet ambulation Functional Limitations- Mobility/Gait < 200 ft Functional Limitations- Work/School Disabled Functional Limitations- Recreation/ unable Hobbies Personal Factors Other Personal Factors That May Effect chronicity of the condition Therapy/Recovery and mutiple comorbidities. PT-OP-C Subjective Start: 05/12/18 10:47 Freq: Status: Active Protocol: Document 08/05/18 09:43 EA (Rec: 08/05/18 09:47 EA [id number]) OP-PT Subjective Patient Comments Patient Comments Pt reports comppliant with HEP and both legs are much better . Patient Reported Progress Improving PT-OP-D Balance Start: 05/12/18 10:47 Freq: Status: Active Protocol: Document 05/12/18 10:48 EA (Rec: 05/12/18 11:14 EA [id number]) OP-PT Balance Assessment Sitting Balance Static Sitting Balance Ability Good Dynamic Sitting Balance Ability Good Standing Balance Static Standing Balance Ability Good Dynamic Standing Balance Ability Fair Balance Tests Single Limb Standing Single Limb- Right < 3 seconds Single Limb- Left unable Elizondo Fall Scale Copyright Permission Caro GAITAN, Caro RM, Denise SJ. Development of a scale to identify the fall- prone patient. Can J Aging 1989;8;366-7. Esteban Elizondo (2009). Preventing patient falls. (2nd ed). [place]: [place]. PT-OP-F Manual Assessment Start: 05/12/18 10:47 Freq: Status: Active Protocol: Document 05/12/18 11:00 EA (Rec: 05/13/18 08:04 EA [id number]) Manual Assessments Soft Tissue Assessment Soft Tissue Mobility Assessment Tightness with hypertonicity to LLE's Joint Mobility Assessment Joint Mobility Assessment empty endfeel to left hip and knee PT-OP-G Mobility & Gait Start: 05/12/18 10:47 Freq: Status: Active Protocol: Document 05/12/18 11:00 EA (Rec: 05/13/18 08:04 EA [id number]) OP Mobility Evaluation Bed Mobility Rolling Indep with Moderate difficulty Supine to and from Sit Indep with minimal difficulty Transfers Sit to Stand Indep Bed to Chair Transfers Indep Car Transfers Indep and able to drive Functional Movements Lifting and Carrying Difficulty, moderate Squats Difficulty, moderate Running Assessment Unable OP Gait Assessment Gait Gait Assistance Required: Independent Distance (Feet) 100 Able to Maintain Weight Bearing Status Yes During Gait Assistive Devices Assistive Device None Gait Deviations General Gait Pattern Antalgic Decreased Stride Length Lateral Trunk Lean Factors Limiting Gait Function Factors Limiting Gait Function Decreased Activity Tolerance Decreased Strength Limited Range of Motion Pain Comments Gait Comments severe antalgic with decreased L WB and left knee hyperextension at stance phase Stair Climbing Evaluation Comments Stair Climbing Comments Not tested due to muscle spasm and pain to left LLE PT-OP-J Posture/Palpation/Skin Start: 05/12/18 10:47 Freq: Status: Active Protocol: Document 07/26/18 11:00 EA (Rec: 07/26/18 11:14 EA [id number]) Posture Evaluation Comments Posture Comments Forward head severe round shoulder and elevated scapula to right side. Palpation Assessment Location One Palpation Location Right upper traps, totaor cuff . Palpation Findings Soft Tissue Tightness Muscle Guarding Tenderness PT-OP-K Range of Motion Start: 05/12/18 10:47 Freq: Status: Active Protocol: Document 07/26/18 11:00 EA (Rec: 07/26/18 11:14 EA [id number]) Shoulder Goniometric Range of Motion Shoulder Measured in Degrees Right Active Testing Position Sitting Flexion 110 Extension 60 Abduction 90 Horizontal Abduction 5 External Rotation at 0 degrees Abduction 50 Hip Goniometric Range of Motion Hip Measured in Degrees Left Active Testing Position Supine Flexion w/Knee Flexed 110 Right Active Hip ROM WFL Yes Testing Position Supine Knee Goniometric Range of Motion Knee Measured in Degrees Left Patient Position Supine Flexion Active (degrees) 115 Extension Passive (degrees) 0 Right Knee ROM WFL Yes Patient Position Sitting PT-OP-L Special Tests Start: 05/12/18 10:47 Freq: Status: Active Protocol: Document 05/12/18 11:00 EA (Rec: 05/13/18 08:04 EA [id number]) Special Tests Other Special Tests Special Tests all special tests to calf, knee, hip, and back are not reliable at this time due to increasing pain, however, SLR was positive when attempted but accompanied with spasms severity. PT-OP-Q Treatments Start: 05/12/18 10:47 Freq: Status: Active Protocol: Document 08/05/18 09:43 EA (Rec: 08/05/18 09:47 EA [id number]) Gym Equipment Cable Column (Body Solid) Rows Details Cable sitted row Resistance 10-20# Reps/Time x 12 reps x 2 sets Leg Extension Resistance 30lbs Reps/Time x 15 repsx 2 Shuttle Balance 1 Details NBOS/WBOS Reps/Duration x 4 mins Comments blue string Therapeutic Exercises Supine Exercises 6 Supine Exercise Name T-bar flexion Reps/Minutes x15 reps x 2 sets 5 Supine Exercise Name T- bar press Reps/Minutes x 15 reps x 2 sets 4 Supine Exercise Name Elbow push up Reps/Minutes x 5SH x 5 reps 2 Supine Exercise Name Bridge Reps/Minutes x 10 reps Comments head three pillows 1 Supine Exercise Name SLR Reps/Minutes x15 reps x 2 Comments head three pillows Sidelying Exercises 6 Sidelying Exercise Name scapular/shoulder depression Resistance manual Reps/Minutes x 12 reps x 2 sets Comments tactile cues 5 Sidelying Exercise Name Fully abd scapulat elev Side right Reps/Minutes x 15 reps x 2 4 Sidelying Exercise Name shoulder hori ABD Side right Reps/Minutes x 15 reps x 2 sets Comments tactile cues 3 Sidelying Exercise Name Scap adduction Side right Reps/Minutes x 15 reps x 2 Comments tactile cues 2 Sidelying Exercise Name Hip ABD Side left Reps/Minutes x 15 reps x 2 1 Sidelying Exercise Name clamshell Side left Resistance BTB Reps/Minutes x 15 reps x 2 Sitting Exercises 4 Sitting Exercise Name T-bar shoulder extension. Resistance 2# T-bar Reps/Minutes x 12 reps x 2 Comments ensure scap adduction 3 Sitting Exercise Name Pectoral stretch Side bilateral Reps/Minutes x 15 SH x 2 2 Sitting Exercise Name shoulder side raises Resistance 1# Reps/Minutes x 12 reps Comments AAROM PT-OP-R Modalities Start: 05/12/18 10:47 Freq: Status: Active Protocol: Document 08/05/18 09:43 EA (Rec: 08/05/18 09:47 EA [id number]) Hot Pack/Cold Pack Treatment Hot Pack Location Right shoulder Patient Position Sidelying Treatment Duration (minutes) 12 PT-OP-T Assessment and Plan Start: 05/12/18 10:47 Freq: Status: Active Protocol: Document 08/05/18 10:31 EA (Rec: 08/05/18 10:33 EA [id number]) Physical Therapy Assessment Assessment Summary Assessment Slight improvement with of scap ADD/depression. Full shoulder AROM reached in gravity eliminated and assisted position. Both LE's has good improvement as well during therex. Overall patient will continue to progress. Physical Therapy Plan Next Visit Focus/Plan Next Note Type Treatment Note Next Visit Plan Standing LE's exercises; possible d/c due to incoming surgery.
--- NOTE | 2018-08-09 12:17 | PT.OTN ---
Current Diagnoses Other chronic pain (08/09/18) Pain in right shoulder (08/09/18) Pain in left knee (08/09/18) Physical Therapy Treatment Note PT-OP-A Visit Information Start: 05/12/18 10:47 Freq: Status: Active Protocol: Document 08/09/18 10:42 EA (Rec: 08/09/18 10:47 EA [id number]) Out-Patient Physical Therapy Visit Information Visit Information Visit Type Treatment Note Visit Start Time 10:30 Visit Stop Time 11:18 Total Visit Minutes 48 PT-OP-B Current Condition Start: 05/12/18 10:47 Freq: Status: Active Protocol: Document 05/12/18 10:48 EA (Rec: 05/12/18 11:14 EA [id number]) Current Condition History of Current Condition Onset Date 6 months ago Current Complaints Left knee, hip, and low back pain rated 7/10 with WB activities History of Current Condition (Patient uses writing to communicate and as well caregiver on side): Present left knee complaint started 6 months ago with no recent injury recalled. Pt reports had dash board knee injury 20 years ago but no hospitalization. She stated that pain gradually started from the L knee and up to hip and low back area. She recalled that four falls in the past 6 months was always due to knee giving up and pain . She mentioned that left knee swelling and pain increased at night specially if she had increased her walking. Multi comorbities including recent throat surgery/treament due to cancer. Tracheostomy which results of no voice production. Chronic low back and neck pain with no fromal PT. 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 Treatment Goals Patient/Caregiver Goals Patient wants to get back to previous level of function 6 months ago where she was able to walk more than half a mile without knee and hip pain. Prior Functional Status Baseline Function- ADL's Independent Baseline Function- Mobility Independent Baseline Function- Gait Able to ambulate > 1/2 mile Baseline Function- Work/School Disabled Baseline Function- Other Patient live with her significant other on a single story house with 3 steps to get in with rails. Current Functional Impairments (Reported) Functional Limitations- ADL's Impaired activities that requires > 200 feet ambulation Functional Limitations- Mobility/Gait < 200 ft Functional Limitations- Work/School Disabled Functional Limitations- Recreation/ unable Hobbies Personal Factors Other Personal Factors That May Effect chronicity of the condition Therapy/Recovery and mutiple comorbidities. PT-OP-C Subjective Start: 05/12/18 10:47 Freq: Status: Active Protocol: Document 08/09/18 10:42 EA (Rec: 08/09/18 10:47 EA [id number]) OP-PT Subjective Patient Comments Patient Comments Patient reports left knee and hip is feeling much better and right shoulder pain is improving; states right knee from the last fall still hurts but much improved. She reports she will be having neck surgery on the 17 of August and would like to continue her PT for leg and shoulder. Patient Reported Progress Improving PT-OP-D Balance Start: 05/12/18 10:47 Freq: Status: Active Protocol: Document 05/12/18 10:48 EA (Rec: 05/12/18 11:14 EA [id number]) OP-PT Balance Assessment Sitting Balance Static Sitting Balance Ability Good Dynamic Sitting Balance Ability Good Standing Balance Static Standing Balance Ability Good Dynamic Standing Balance Ability Fair Balance Tests Single Limb Standing Single Limb- Right < 3 seconds Single Limb- Left unable Elizondo Fall Scale Copyright Permission Caro GAITAN, Caro RM, Denise SJ. Development of a scale to identify the fall- prone patient. Can J Aging 1989;8;366-7. Esteban Elizondo (2009). Preventing patient falls. (2nd ed). [place]: [place]. PT-OP-F Manual Assessment Start: 05/12/18 10:47 Freq: Status: Active Protocol: Document 05/12/18 11:00 EA (Rec: 05/13/18 08:04 EA [id number]) Manual Assessments Soft Tissue Assessment Soft Tissue Mobility Assessment Tightness with hypertonicity to LLE's Joint Mobility Assessment Joint Mobility Assessment empty endfeel to left hip and knee PT-OP-G Mobility & Gait Start: 05/12/18 10:47 Freq: Status: Active Protocol: Document 05/12/18 11:00 EA (Rec: 05/13/18 08:04 EA [id number]) OP Mobility Evaluation Bed Mobility Rolling Indep with Moderate difficulty Supine to and from Sit Indep with minimal difficulty Transfers Sit to Stand Indep Bed to Chair Transfers Indep Car Transfers Indep and able to drive Functional Movements Lifting and Carrying Difficulty, moderate Squats Difficulty, moderate Running Assessment Unable OP Gait Assessment Gait Gait Assistance Required: Independent Distance (Feet) 100 Able to Maintain Weight Bearing Status Yes During Gait Assistive Devices Assistive Device None Gait Deviations General Gait Pattern Antalgic Decreased Stride Length Lateral Trunk Lean Factors Limiting Gait Function Factors Limiting Gait Function Decreased Activity Tolerance Decreased Strength Limited Range of Motion Pain Comments Gait Comments severe antalgic with decreased L WB and left knee hyperextension at stance phase Stair Climbing Evaluation Comments Stair Climbing Comments Not tested due to muscle spasm and pain to left LLE PT-OP-J Posture/Palpation/Skin Start: 05/12/18 10:47 Freq: Status: Active Protocol: Document 07/26/18 11:00 EA (Rec: 07/26/18 11:14 EA [id number]) Posture Evaluation Comments Posture Comments Forward head severe round shoulder and elevated scapula to right side. Palpation Assessment Location One Palpation Location Right upper traps, totaor cuff . Palpation Findings Soft Tissue Tightness Muscle Guarding Tenderness PT-OP-K Range of Motion Start: 05/12/18 10:47 Freq: Status: Active Protocol: Document 07/26/18 11:00 EA (Rec: 07/26/18 11:14 EA [id number]) Shoulder Goniometric Range of Motion Shoulder Measured in Degrees Right Active Testing Position Sitting Flexion 110 Extension 60 Abduction 90 Horizontal Abduction 5 External Rotation at 0 degrees Abduction 50 Hip Goniometric Range of Motion Hip Measured in Degrees Left Active Testing Position Supine Flexion w/Knee Flexed 110 Right Active Hip ROM WFL Yes Testing Position Supine Knee Goniometric Range of Motion Knee Measured in Degrees Left Patient Position Supine Flexion Active (degrees) 115 Extension Passive (degrees) 0 Right Knee ROM WFL Yes Patient Position Sitting PT-OP-L Special Tests Start: 05/12/18 10:47 Freq: Status: Active Protocol: Document 05/12/18 11:00 EA (Rec: 05/13/18 08:04 EA [id number]) Special Tests Other Special Tests Special Tests all special tests to calf, knee, hip, and back are not reliable at this time due to increasing pain, however, SLR was positive when attempted but accompanied with spasms severity. PT-OP-Q Treatments Start: 05/12/18 10:47 Freq: Status: Active Protocol: Document 08/09/18 10:42 EA (Rec: 08/09/18 10:47 EA [id number]) Cardio Equipment Recumbent Stepper (Sci-Fit) Duration (Minutes) 8 Resistance 3 Seat Position 13 Other no arm support Therapeutic Exercises Supine Exercises 2 Supine Exercise Name Bridge Reps/Minutes x 10 reps Comments head three pillows 1 Supine Exercise Name SLR Reps/Minutes x15 reps x 2 Comments head three pillows Sitting Exercises 4 Sitting Exercise Name T-bar shoulder extension. Resistance 2# T-bar Reps/Minutes x 12 reps x 2 Comments ensure scap adduction 3 Sitting Exercise Name Pectoral stretch Side bilateral Reps/Minutes x 15 SH x 2 2 Sitting Exercise Name shoulder side raises Resistance 1# Reps/Minutes x 12 reps Comments AAROM Standing Exercises 3 Standing Exercise Name side steps squats Resistance YTB Reps/Minutes x 4 lines x 12 ft Comments rails support 2 Standing Exercise Name rails sit to stand Reps/Minutes x 10 reps 1 Standing Exercise Name T-ball wall squat Reps/Minutes x 12 reps x 2 Manual Therapy Treatment Soft Tissue Mobilization 2 Body Location Right uppr traps, rotator cuff Mobilization Type Myofascial Release Rolling Trigger Point Release Intensity/Depth Superficial Body Position Sidelying Manual Techniques 1 Type Passive stretch: shoulder elevators, scap protractors. Quads Reps/Duration x 2 reps x 2 sets PT-OP-R Modalities Start: 05/12/18 10:47 Freq: Status: Active Protocol: Document 08/09/18 11:15 EA (Rec: 08/09/18 11:17 EA [id number]) Hot Pack/Cold Pack Treatment Hot Pack Location Right shoulder Patient Position Sidelying Treatment Duration (minutes) 12 PT-OP-T Assessment and Plan Start: 05/12/18 10:47 Freq: Status: Active Protocol: Document 08/09/18 11:15 EA (Rec: 08/09/18 11:17 EA [id number]) Physical Therapy Assessment Assessment Summary Assessment Pt tolerated treatment with improved exercises tolerance to right shoulder and left LE. Overall patient is improved. I recommended to bring referral from her doctor after surgery. Physical Therapy Plan Next Visit Focus/Plan Next Note Type Re-Evaluation
--- NOTE | 2018-08-16 15:24 | PT.OTN ---
Current Diagnoses Other chronic pain (08/16/18) Pain in right shoulder (08/16/18) Pain in left knee (08/16/18) Physical Therapy Treatment Note PT-OP-A Visit Information Start: 05/12/18 10:47 Freq: Status: Active Protocol: Document 08/16/18 11:15 AMB (Rec: 08/16/18 12:51 AMB [id number]) Out-Patient Physical Therapy Visit Information Visit Information Visit Type Treatment Note Visit Start Time 11:15 Visit Stop Time 12:00 Total Visit Minutes 45 Visit Number 14 PT-OP-B Current Condition Start: 05/12/18 10:47 Freq: Status: Active Protocol: Document 05/12/18 10:48 EA (Rec: 05/12/18 11:14 EA [id number]) Current Condition History of Current Condition Onset Date 6 months ago Current Complaints Left knee, hip, and low back pain rated 7/10 with WB activities History of Current Condition (Patient uses writing to communicate and as well caregiver on side): Present left knee complaint started 6 months ago with no recent injury recalled. Pt reports had dash board knee injury 20 years ago but no hospitalization. She stated that pain gradually started from the L knee and up to hip and low back area. She recalled that four falls in the past 6 months was always due to knee giving up and pain . She mentioned that left knee swelling and pain increased at night specially if she had increased her walking. Multi comorbities including recent throat surgery/treament due to cancer. Tracheostomy which results of no voice production. Chronic low back and neck pain with no fromal PT. 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 Treatment Goals Patient/Caregiver Goals Patient wants to get back to previous level of function 6 months ago where she was able to walk more than half a mile without knee and hip pain. Prior Functional Status Baseline Function- ADL's Independent Baseline Function- Mobility Independent Baseline Function- Gait Able to ambulate > 1/2 mile Baseline Function- Work/School Disabled Baseline Function- Other Patient live with her significant other on a single story house with 3 steps to get in with rails. Current Functional Impairments (Reported) Functional Limitations- ADL's Impaired activities that requires > 200 feet ambulation Functional Limitations- Mobility/Gait < 200 ft Functional Limitations- Work/School Disabled Functional Limitations- Recreation/ unable Hobbies Personal Factors Other Personal Factors That May Effect chronicity of the condition Therapy/Recovery and mutiple comorbidities. PT-OP-C Subjective Start: 05/12/18 10:47 Freq: Status: Active Protocol: Document 08/16/18 11:15 AMB (Rec: 08/16/18 12:51 AMB [email or web address]) OP-PT Subjective Patient Comments Patient Comments Pt reports the neck surgery she was hoping to have has been delayed for awhile due to skin issues. She states that her left knee and right shoulder are improving, but the right knee still hurts from where she fell on it. PT-OP-D Balance Start: 05/12/18 10:47 Freq: Status: Active Protocol: Document 05/12/18 10:48 EA (Rec: 05/12/18 11:14 EA [id number]) OP-PT Balance Assessment Sitting Balance Static Sitting Balance Ability Good Dynamic Sitting Balance Ability Good Standing Balance Static Standing Balance Ability Good Dynamic Standing Balance Ability Fair Balance Tests Single Limb Standing Single Limb- Right < 3 seconds Single Limb- Left unable Elizondo Fall Scale Copyright Permission Caro GAITAN, Caro RM, Denise SJ. Development of a scale to identify the fall- prone patient. Can J Aging 1989;8;366-7. Esteban Elizondo (2009). Preventing patient falls. (2nd ed). [place]: [place]. PT-OP-F Manual Assessment Start: 05/12/18 10:47 Freq: Status: Active Protocol: Document 05/12/18 11:00 EA (Rec: 05/13/18 08:04 EA [id number]) Manual Assessments Soft Tissue Assessment Soft Tissue Mobility Assessment Tightness with hypertonicity to LLE's Joint Mobility Assessment Joint Mobility Assessment empty endfeel to left hip and knee PT-OP-G Mobility & Gait Start: 05/12/18 10:47 Freq: Status: Active Protocol: Document 05/12/18 11:00 EA (Rec: 05/13/18 08:04 EA [id number]) OP Mobility Evaluation Bed Mobility Rolling Indep with Moderate difficulty Supine to and from Sit Indep with minimal difficulty Transfers Sit to Stand Indep Bed to Chair Transfers Indep Car Transfers Indep and able to drive Functional Movements Lifting and Carrying Difficulty, moderate Squats Difficulty, moderate Running Assessment Unable OP Gait Assessment Gait Gait Assistance Required: Independent Distance (Feet) 100 Able to Maintain Weight Bearing Status Yes During Gait Assistive Devices Assistive Device None Gait Deviations General Gait Pattern Antalgic Decreased Stride Length Lateral Trunk Lean Factors Limiting Gait Function Factors Limiting Gait Function Decreased Activity Tolerance Decreased Strength Limited Range of Motion Pain Comments Gait Comments severe antalgic with decreased L WB and left knee hyperextension at stance phase Stair Climbing Evaluation Comments Stair Climbing Comments Not tested due to muscle spasm and pain to left LLE PT-OP-J Posture/Palpation/Skin Start: 05/12/18 10:47 Freq: Status: Active Protocol: Document 07/26/18 11:00 EA (Rec: 07/26/18 11:14 EA [id number]) Posture Evaluation Comments Posture Comments Forward head severe round shoulder and elevated scapula to right side. Palpation Assessment Location One Palpation Location Right upper traps, totaor cuff . Palpation Findings Soft Tissue Tightness Muscle Guarding Tenderness PT-OP-K Range of Motion Start: 05/12/18 10:47 Freq: Status: Active Protocol: Document 07/26/18 11:00 EA (Rec: 07/26/18 11:14 EA [id number]) Shoulder Goniometric Range of Motion Shoulder Measured in Degrees Right Active Testing Position Sitting Flexion 110 Extension 60 Abduction 90 Horizontal Abduction 5 External Rotation at 0 degrees Abduction 50 Hip Goniometric Range of Motion Hip Measured in Degrees Left Active Testing Position Supine Flexion w/Knee Flexed 110 Right Active Hip ROM WFL Yes Testing Position Supine Knee Goniometric Range of Motion Knee Measured in Degrees Left Patient Position Supine Flexion Active (degrees) 115 Extension Passive (degrees) 0 Right Knee ROM WFL Yes Patient Position Sitting PT-OP-L Special Tests Start: 05/12/18 10:47 Freq: Status: Active Protocol: Document 05/12/18 11:00 EA (Rec: 05/13/18 08:04 EA [id number]) Special Tests Other Special Tests Special Tests all special tests to calf, knee, hip, and back are not reliable at this time due to increasing pain, however, SLR was positive when attempted but accompanied with spasms severity. PT-OP-Q Treatments Start: 05/12/18 10:47 Freq: Status: Active Protocol: Document 08/16/18 11:15 AMB (Rec: 08/16/18 12:51 AMB [email or web address]) Cardio Equipment Recumbent Elliptical (Biodex) Duration (Minutes) 5 Resistance 5 Seat Position 11 Therapeutic Exercises Supine Exercises 2 Supine Exercise Name Bridge Reps/Minutes x 10 reps Comments head three pillows 1 Supine Exercise Name SLR Reps/Minutes x15 reps x 2 Comments head three pillows Sitting Exercises 3 Sitting Exercise Name Pectoral stretch Side bilateral Reps/Minutes x 15 SH x 2 Manual Therapy Treatment Joint Mobilizations 1 Joint patellofemoral Grade II Body Position Supine Taping 1 Body Location knee Type of Tape Kinesio Tape Comments 2 Y strips PT-OP-R Modalities Start: 05/12/18 10:47 Freq: Status: Active Protocol: Document 08/16/18 11:15 AMB (Rec: 08/16/18 13:46 AMB [email or web address]) Hot Pack/Cold Pack Treatment Cold Pack Location Knee Patient Position Hooklying Treatment Duration (minutes) 10 Hot Pack Location Right shoulder Patient Position Hooklying Treatment Duration (minutes) 10 PT-OP-T Assessment and Plan Start: 05/12/18 10:47 Freq: Status: Active Protocol: Document 08/16/18 11:15 AMB (Rec: 08/16/18 12:51 AMB [email or web address]) Physical Therapy Assessment Assessment Summary Assessment Nai did well with exercises, but continues to be most concerned with her right knee pain. Physical Therapy Plan Frequency and Duration Frequency of Treatment 2x/Week Duration of Treatment 6 wks Plan of Care Start Date 07/26/18 Plan of Care End Date 09/06/18 Therapeutic Interventions Therapeutic Interventions Balance Training Gait Training Home Exercise Program Joint Mobilizations Manual Therapy Patient/Caregiver Education Self-Care/Home Management Soft Tissue Mobilization Taping Therapeutic Exercises Modalities Cold Pack/Ice Massage Electric Stimulation Hot Packs Ultrasound Next Visit Focus/Plan Next Note Type Re-Evaluation
--- NOTE | 2018-08-24 18:18 | PT.OTN ---
Current Diagnoses Other chronic pain (08/24/18) Pain in right shoulder (08/24/18) Pain in left knee (08/24/18) Physical Therapy Treatment Note PT-OP-A Visit Information Start: 05/12/18 10:47 Freq: Status: Active Protocol: Document 08/24/18 13:45 HH (Rec: 08/24/18 18:18 HH [id number]) Out-Patient Physical Therapy Visit Information Visit Information Visit Type Treatment Note Visit Note CG states pt's referring physician wants to know if pt has been progressing in PT. Re -eval next visit. Visit Start Time 13:45 Visit Stop Time 14:30 Total Visit Minutes 45 Visit Number 15 Number of [employer] Visits 0 PT-OP-B Current Condition Start: 05/12/18 10:47 Freq: Status: Active Protocol: Document 05/12/18 10:48 EA (Rec: 05/12/18 11:14 EA [id number]) Current Condition History of Current Condition Onset Date 6 months ago Current Complaints Left knee, hip, and low back pain rated 7/10 with WB activities History of Current Condition (Patient uses writing to communicate and as well caregiver on side): Present left knee complaint started 6 months ago with no recent injury recalled. Pt reports had dash board knee injury 20 years ago but no hospitalization. She stated that pain gradually started from the L knee and up to hip and low back area. She recalled that four falls in the past 6 months was always due to knee giving up and pain . She mentioned that left knee swelling and pain increased at night specially if she had increased her walking. Multi comorbities including recent throat surgery/treament due to cancer. Tracheostomy which results of no voice production. Chronic low back and neck pain with no fromal PT. 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 Treatment Goals Patient/Caregiver Goals Patient wants to get back to previous level of function 6 months ago where she was able to walk more than half a mile without knee and hip pain. Prior Functional Status Baseline Function- ADL's Independent Baseline Function- Mobility Independent Baseline Function- Gait Able to ambulate > 1/2 mile Baseline Function- Work/School Disabled Baseline Function- Other Patient live with her significant other on a single story house with 3 steps to get in with rails. Current Functional Impairments (Reported) Functional Limitations- ADL's Impaired activities that requires > 200 feet ambulation Functional Limitations- Mobility/Gait < 200 ft Functional Limitations- Work/School Disabled Functional Limitations- Recreation/ unable Hobbies Personal Factors Other Personal Factors That May Effect chronicity of the condition Therapy/Recovery and mutiple comorbidities. PT-OP-C Subjective Start: 05/12/18 10:47 Freq: Status: Active Protocol: Document 08/24/18 13:45 HH (Rec: 08/24/18 18:18 HH [email or web address]) OP-PT Subjective Patient Comments Patient Comments states her right knee pain bothers her lately after her fall from 2 weeks ago. PT-OP-D Balance Start: 05/12/18 10:47 Freq: Status: Active Protocol: Document 05/12/18 10:48 EA (Rec: 05/12/18 11:14 EA [id number]) OP-PT Balance Assessment Sitting Balance Static Sitting Balance Ability Good Dynamic Sitting Balance Ability Good Standing Balance Static Standing Balance Ability Good Dynamic Standing Balance Ability Fair Balance Tests Single Limb Standing Single Limb- Right < 3 seconds Single Limb- Left unable Elizondo Fall Scale Copyright Permission PT-OP-F Manual Assessment Start: 05/12/18 10:47 Freq: Status: Active Protocol: Document 05/12/18 11:00 EA (Rec: 05/13/18 08:04 EA [id number]) Manual Assessments Soft Tissue Assessment Soft Tissue Mobility Assessment Tightness with hypertonicity to LLE's Joint Mobility Assessment Joint Mobility Assessment empty endfeel to left hip and knee PT-OP-G Mobility & Gait Start: 05/12/18 10:47 Freq: Status: Active Protocol: Document 05/12/18 11:00 EA (Rec: 05/13/18 08:04 EA [id number]) OP Mobility Evaluation Bed Mobility Rolling Indep with Moderate difficulty Supine to and from Sit Indep with minimal difficulty Transfers Sit to Stand Indep Bed to Chair Transfers Indep Car Transfers Indep and able to drive Functional Movements Lifting and Carrying Difficulty, moderate Squats Difficulty, moderate Running Assessment Unable OP Gait Assessment Gait Gait Assistance Required: Independent Distance (Feet) 100 Able to Maintain Weight Bearing Status Yes During Gait Assistive Devices Assistive Device None Gait Deviations General Gait Pattern Antalgic Decreased Stride Length Lateral Trunk Lean Factors Limiting Gait Function Factors Limiting Gait Function Decreased Activity Tolerance Decreased Strength Limited Range of Motion Pain Comments Gait Comments severe antalgic with decreased L WB and left knee hyperextension at stance phase Stair Climbing Evaluation Comments Stair Climbing Comments Not tested due to muscle spasm and pain to left LLE PT-OP-J Posture/Palpation/Skin Start: 05/12/18 10:47 Freq: Status: Active Protocol: Document 07/26/18 11:00 EA (Rec: 07/26/18 11:14 EA [id number]) Posture Evaluation Comments Posture Comments Forward head severe round shoulder and elevated scapula to right side. Palpation Assessment Location One Palpation Location Right upper traps, totaor cuff . Palpation Findings Soft Tissue Tightness Muscle Guarding Tenderness PT-OP-K Range of Motion Start: 05/12/18 10:47 Freq: Status: Active Protocol: Document 07/26/18 11:00 EA (Rec: 07/26/18 11:14 EA [id number]) Shoulder Goniometric Range of Motion Shoulder Right Active Testing Position Sitting Flexion 110 Extension 60 Abduction 90 Horizontal Abduction 5 External Rotation at 0 degrees Abduction 50 Hip Goniometric Range of Motion Hip Left Active Testing Position Supine Flexion w/Knee Flexed 110 Right Active Hip ROM WFL Yes Testing Position Supine Knee Goniometric Range of Motion Knee Left Patient Position Supine Flexion Active (degrees) 115 Extension Passive (degrees) 0 Right Knee ROM WFL Yes Patient Position Sitting PT-OP-L Special Tests Start: 05/12/18 10:47 Freq: Status: Active Protocol: Document 05/12/18 11:00 EA (Rec: 05/13/18 08:04 EA [id number]) Special Tests Other Special Tests Special Tests all special tests to calf, knee, hip, and back are not reliable at this time due to increasing pain, however, SLR was positive when attempted but accompanied with spasms severity. PT-OP-Q Treatments Start: 05/12/18 10:47 Freq: Status: Active Protocol: Document 08/24/18 13:45 HH (Rec: 08/24/18 18:18 HH [email or web address]) Therapeutic Exercises Sitting Exercises seated R knee extenison Sitting Exercise Name full range Side right Resistance PT's resistance Reps/Minutes 8 x 4 Gait Training Gait Activity ground level Device Used next to //bar, 1' hurdles Level of Assistance CGA Surface ground level Distance/Duration 10 Treatment Focus single leg stance Comments step over 1' hurdles to facilitate singe leg stance Manual Therapy Treatment Soft Tissue Mobilization R medial joint line (knee) Mobilization Type Cross-Friction Sustained Pressure Trigger Point Release Intensity/Depth Moderate Body Position Sitting Joint Mobilizations 1 Joint patellofemoral Grade II Body Position Supine Comments and joint distraction Neuro Re-Education Treatment Balance Activities slow walk Surface ground level Equipment //bar Reps/Duration 5 mins hurdles Surface ground level Equipment //bar Reps/Duration 5 mins Comments cues on heel strikes and terminal stance PT-OP-R Modalities Start: 05/12/18 10:47 Freq: Status: Active Protocol: Document 08/16/18 11:15 AMB (Rec: 08/16/18 13:46 AMB [email or web address]) Hot Pack/Cold Pack Treatment Cold Pack Location Knee Patient Position Hooklying Treatment Duration (minutes) 10 Hot Pack Location Right shoulder Patient Position Hooklying Treatment Duration (minutes) 10 PT-OP-T Assessment and Plan Start: 05/12/18 10:47 Freq: Status: Active Protocol: Document 08/24/18 13:45 HH (Rec: 08/24/18 18:18 HH [email or web address]) Physical Therapy Assessment Assessment Summary Assessment Pt c/o increased R knee pain lately. Given manual therapy on R medial joint line and MET on R knee extension today. Pt reports significant reduce in pain after. Also focused on gait training today to improve single leg stance. She was able to negotiate 1 hurdles without UE support. Pt's CG also states referring physician wants to know pt's current rehab progress. Reeval next visit. Physical Therapy Plan Next Visit Focus/Plan Next Note Type Re-Evaluation Next Visit Plan Reeval next visit. CG also states referring physician wants to know pt's current rehab progress.
--- NOTE | 2018-09-02 16:01 | PT.OTN ---
Current Diagnoses Other chronic pain (09/02/18) Pain in right shoulder (09/02/18) Pain in left knee (09/02/18) Physical Therapy Treatment Note PT-OP-A Visit Information Start: 05/12/18 10:47 Freq: Status: Active Protocol: Document 09/02/18 15:13 EA (Rec: 09/02/18 16:01 EA [id number]) Out-Patient Physical Therapy Visit Information Visit Information Visit Type Treatment Note Visit Start Time 14:30 Visit Stop Time 15:15 Total Visit Minutes 45 Visit Number 16 PT-OP-B Current Condition Start: 05/12/18 10:47 Freq: Status: Active Protocol: Document 05/12/18 10:48 EA (Rec: 05/12/18 11:14 EA [id number]) Current Condition History of Current Condition Onset Date 6 months ago Current Complaints Left knee, hip, and low back pain rated 7/10 with WB activities History of Current Condition (Patient uses writing to communicate and as well caregiver on side): Present left knee complaint started 6 months ago with no recent injury recalled. Pt reports had dash board knee injury 20 years ago but no hospitalization. She stated that pain gradually started from the L knee and up to hip and low back area. She recalled that four falls in the past 6 months was always due to knee giving up and pain . She mentioned that left knee swelling and pain increased at night specially if she had increased her walking. Multi comorbities including recent throat surgery/treament due to cancer. Tracheostomy which results of no voice production. Chronic low back and neck pain with no fromal PT. 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 Treatment Goals Patient/Caregiver Goals Patient wants to get back to previous level of function 6 months ago where she was able to walk more than half a mile without knee and hip pain. Prior Functional Status Baseline Function- ADL's Independent Baseline Function- Mobility Independent Baseline Function- Gait Able to ambulate > 1/2 mile Baseline Function- Work/School Disabled Baseline Function- Other Patient live with her significant other on a single story house with 3 steps to get in with rails. Current Functional Impairments (Reported) Functional Limitations- ADL's Impaired activities that requires > 200 feet ambulation Functional Limitations- Mobility/Gait < 200 ft Functional Limitations- Work/School Disabled Functional Limitations- Recreation/ unable Hobbies Personal Factors Other Personal Factors That May Effect chronicity of the condition Therapy/Recovery and mutiple comorbidities. PT-OP-C Subjective Start: 05/12/18 10:47 Freq: Status: Active Protocol: Document 09/02/18 15:13 EA (Rec: 09/02/18 16:01 EA [id number]) OP-PT Subjective Patient Comments Patient Comments Pt reports it might be her last session; states would like to know more about HEP to shoulder and HEP. PT-OP-D Balance Start: 05/12/18 10:47 Freq: Status: Active Protocol: Document 05/12/18 10:48 EA (Rec: 05/12/18 11:14 EA [id number]) OP-PT Balance Assessment Sitting Balance Static Sitting Balance Ability Good Dynamic Sitting Balance Ability Good Standing Balance Static Standing Balance Ability Good Dynamic Standing Balance Ability Fair Balance Tests Single Limb Standing Single Limb- Right < 3 seconds Single Limb- Left unable Elizondo Fall Scale Copyright Permission PT-OP-F Manual Assessment Start: 05/12/18 10:47 Freq: Status: Active Protocol: Document 05/12/18 11:00 EA (Rec: 05/13/18 08:04 EA [id number]) Manual Assessments Soft Tissue Assessment Soft Tissue Mobility Assessment Tightness with hypertonicity to LLE's Joint Mobility Assessment Joint Mobility Assessment empty endfeel to left hip and knee PT-OP-G Mobility & Gait Start: 05/12/18 10:47 Freq: Status: Active Protocol: Document 05/12/18 11:00 EA (Rec: 05/13/18 08:04 EA [id number]) OP Mobility Evaluation Bed Mobility Rolling Indep with Moderate difficulty Supine to and from Sit Indep with minimal difficulty Transfers Sit to Stand Indep Bed to Chair Transfers Indep Car Transfers Indep and able to drive Functional Movements Lifting and Carrying Difficulty, moderate Squats Difficulty, moderate Running Assessment Unable OP Gait Assessment Gait Gait Assistance Required: Independent Distance (Feet) 100 Able to Maintain Weight Bearing Status Yes During Gait Assistive Devices Assistive Device None Gait Deviations General Gait Pattern Antalgic Decreased Stride Length Lateral Trunk Lean Factors Limiting Gait Function Factors Limiting Gait Function Decreased Activity Tolerance Decreased Strength Limited Range of Motion Pain Comments Gait Comments severe antalgic with decreased L WB and left knee hyperextension at stance phase Stair Climbing Evaluation Comments Stair Climbing Comments Not tested due to muscle spasm and pain to left LLE PT-OP-J Posture/Palpation/Skin Start: 05/12/18 10:47 Freq: Status: Active Protocol: Document 07/26/18 11:00 EA (Rec: 07/26/18 11:14 EA [id number]) Posture Evaluation Comments Posture Comments Forward head severe round shoulder and elevated scapula to right side. Palpation Assessment Location One Palpation Location Right upper traps, totaor cuff . Palpation Findings Soft Tissue Tightness Muscle Guarding Tenderness PT-OP-K Range of Motion Start: 05/12/18 10:47 Freq: Status: Active Protocol: Document 07/26/18 11:00 EA (Rec: 07/26/18 11:14 EA [id number]) Shoulder Goniometric Range of Motion Shoulder Right Active Testing Position Sitting Flexion 110 Extension 60 Abduction 90 Horizontal Abduction 5 External Rotation at 0 degrees Abduction 50 Hip Goniometric Range of Motion Hip Left Active Testing Position Supine Flexion w/Knee Flexed 110 Right Active Hip ROM WFL Yes Testing Position Supine Knee Goniometric Range of Motion Knee Left Patient Position Supine Flexion Active (degrees) 115 Extension Passive (degrees) 0 Right Knee ROM WFL Yes Patient Position Sitting PT-OP-L Special Tests Start: 05/12/18 10:47 Freq: Status: Active Protocol: Document 05/12/18 11:00 EA (Rec: 05/13/18 08:04 EA [id number]) Special Tests Other Special Tests Special Tests all special tests to calf, knee, hip, and back are not reliable at this time due to increasing pain, however, SLR was positive when attempted but accompanied with spasms severity. PT-OP-Q Treatments Start: 05/12/18 10:47 Freq: Status: Active Protocol: Document 09/02/18 15:13 EA (Rec: 09/02/18 16:01 EA [id number]) Therapeutic Exercises Supine Exercises 6 Supine Exercise Name T-bar flexion Reps/Minutes x15 reps x 2 sets Comments HEP 5 Supine Exercise Name T- bar press Reps/Minutes x 15 reps x 2 sets 4 Supine Exercise Name Elbow push up Reps/Minutes x 5SH x 5 reps Comments HEP 3 Supine Exercise Name heel slides Side bilateral Comments HEP 2 Supine Exercise Name Bridge Reps/Minutes x 10 reps Comments head three pillows 1 Supine Exercise Name SLR Reps/Minutes x15 reps x 2 Comments HEP Sidelying Exercises 6 Sidelying Exercise Name scapular/shoulder depression Resistance manual Reps/Minutes x 12 reps x 2 sets Comments HEP 5 Sidelying Exercise Name Fully abd scapulat elev Side right Reps/Minutes x 15 reps x 2 Comments HEP 4 Sidelying Exercise Name shoulder hori ABD Side right Reps/Minutes x 15 reps x 2 sets Comments HEP 3 Sidelying Exercise Name Scap adduction Side right Reps/Minutes x 15 reps x 2 Comments tactile cues Standing Exercises 1 Standing Exercise Name wall squat Reps/Minutes x10 reps Comments HEP Self-Care/Home Management Treatment Education Patient Education Home Exercise Program Joint Protection Pain Management Posture Other Education HEP with images performed sfaely. PT-OP-R Modalities Start: 05/12/18 10:47 Freq: Status: Active Protocol: Document 08/16/18 11:15 AMB (Rec: 08/16/18 13:46 AMB [email or web address]) Hot Pack/Cold Pack Treatment Cold Pack Location Knee Patient Position Hooklying Treatment Duration (minutes) 10 Hot Pack Location Right shoulder Patient Position Hooklying Treatment Duration (minutes) 10 PT-OP-T Assessment and Plan Start: 05/12/18 10:47 Freq: Status: Active Protocol: Document 09/02/18 15:13 EA (Rec: 09/02/18 16:01 EA [id number]) Physical Therapy Assessment Assessment Summary Assessment Pt is discharge today due to insurance limitation. Patient exhibits good improvement to functional mobility as she is able ambulate with no STC. Physical Therapy Plan Discharge Physical Therapy Discharge Comments insurance limitation
== END 2018-10-01 15:32 | disposition home or self-care (01) ==
LOC: PHYS 14:30
PROVIDERS: PCP Internal Medicine; Visit Provider Internal Medicine
DX: M25.562 Pain in left knee (principal); G89.29 Other chronic pain; M25.511 Pain in right shoulder
CPT/HCPCS: 97014; 97110; 97116; 97140; 97163; 97535; G0283

== ENCOUNTER → 2018-09-16 09:34 | Outpatient (CLI) | payer OTHER, MEDICAID, SELFPAY ==
[2018-05-24 22:04] VITALS: BMI 36.7
--- NOTE | 2018-09-16 | DI.CT.S_ITS ---
PROCEDURE: CT ANGIO NECK INDICATIONS: Malignant neoplasm of larynx, unspecified TECHNIQUE: After the administration of intravenous contrast, 1.5 mm axial sections acquired from the aortic arch to the Era of [place]. Maximum intensity projection (MIP) reformats were then performed. COMPARISON: [facility], CT, CT SOFT TISSUE NECK W CON, 07/30/2018, 18:14. [facility], CT, CT HEAD/BRAIN WO CON, 07/30/2018, 21:59. FINDINGS: Image quality: Excellent. Carotid system: The great vessels demonstrate a conventional anatomy as they arise from the aortic arch. The origins of the common carotid arteries appear patent. The common carotid arteries demonstrate normal calibers and courses. The bifurcation regions appear normal bilaterally. The internal carotid arteries demonstrate normal caliber. Tortuosity is seen of the internal carotid arteries. Posterior circulation: The origins of the vertebral arteries appear patent. The more superior portions of the vertebral arteries demonstrate normal course and caliber. They join to form a normal appearing basilar artery. Soft tissues: Visualized neck soft tissues demonstrate no suspicious abnormalities. Thyroid gland is not seen. The previously seen right upper lobe infiltrate has resolved. Scarring is seen along the medial aspects of the lung apices, which is attributed to prior radiation treatment. A tracheostomy tube is seen. Lymph node dissection clips can be seen on both sides of the neck. Soft tissue postoperative changes are seen, with fat packing. Bones: No suspicious bony lesions. Visualized cervical spine appears normally aligned. Age-appropriate bony degenerative changes are seen. IMPRESSION: No hemodynamically significant stenosis is seen of the arteries of the neck. Postoperative changes are seen of the neck, including tracheostomy. Presumed radiation changes of the medial lung apices. Please correlate with known patient history. Any quantitative stenosis measurements were performed using the NASCET criteria. Dictated by: Colin Pinon M.D. on 09/16/2018 at 10:28 Approved by: Colin Pinon M.D. on 09/16/2018 at 10:32
== END ==
PROVIDERS: PCP Internal Medicine; Visit Provider Otolaryngology Plastic Surgery within the Head & Neck
DX: C32.9 Malignant neoplasm of larynx, unspecified (principal); Z93.0 Tracheostomy status
CPT/HCPCS: 70498; Q9967

== ENCOUNTER → 2018-09-22 18:15 | Outpatient (ROUT) | payer OTHER, MEDICAID, SELFPAY ==
[2018-05-24 22:04] VITALS: BMI 36.7
== END ==
PROVIDERS: PCP Internal Medicine; Visit Provider Internal Medicine
DX: S11.80XD Unspecified open wound of other specified part of neck, subsequent encounter (principal)
CPT/HCPCS: 87070; 87075; 87077; 87147; 87186; 87205

== ENCOUNTER 2018-10-26 18:43 | Inpatient (IN) | payer OTHER, MEDICAID, SELFPAY ==
[2018-05-24 22:04] VITALS: BMI 36.7
[2018-10-26 18:46] VITALS: PULSE 91; RESP 22; TEMP 37; O2SAT 95
--- NOTE | 2018-10-26 18:53 | ED.ABDPAIN ---
HPI - Abdominal Pain General Chief Complaint: Abdominal Pain Stated Complaint: Abdominal pain Time Seen by Provider: 10/26/18 18:47 Source: patient Mode of arrival: EMS Limitations: no limitations History of Present Illness HPI narrative: 58-year-old female who was well known to myself in this emergency department for having respiratory issues. She does have a trach in place secondary to laryngeal cancer. She is here in the emergency department today not because of respiratory issues but because of abdominal pain. She states she started having abdominal pain earlier today and has had some vomiting. She is somewhat difficult to obtain a history from because she cannot speak and has to write everything out on a piece of paper. She denies any other symptoms to me other than the abdominal pain in the vomiting. Related Data Home Medications Medication Instructions Recorded Confirmed albuterol sulfate 1 dose INHALATION QIDP PRN #180 01/25/16 07/30/18 docusate sodium 100 mg PO BID #0 01/25/16 05/24/18 ferrous gluconate 324 mg PO DAILY #0 08/28/16 05/25/18 acetaminophen 325 mg PO Q6HP PRN #0 10/29/16 05/24/18 amitriptyline 25 mg PO BEDTIME #0 01/22/17 05/25/18 ascorbic acid (vitamin C) 500 mg PO DAILY #0 06/10/17 05/25/18 fexofenadine 180 mg PO DAILY #0 06/10/17 07/30/18 nystatin 1 dose PO DIRECTED #0 06/10/17 05/25/18 sodium chloride 0.9 % 1 vial QID PRN #0 06/10/17 07/30/18 citalopram 40 mg PO DAILY 09/21/17 07/30/18 lisinopril 10 mg PO BID 09/21/17 05/24/18 levothyroxine 1 tab PO DAILY 01/04/18 07/30/18 estradiol 1 mg PO DAILY 01/25/18 07/30/18 gentamicin 1 applic TOPICAL DIRECTED 05/24/18 07/30/18 omeprazole 40 mg PO DAILY 07/30/18 07/30/18 Previous Rx's Medication Instructions Recorded prednisone 10 mg PO BID #10 tab 01/06/18 levofloxacin [Levaquin] 750 mg PO DAILY #7 tab 07/17/18 tramadol 50 mg PO Q6H PRN #10 tab 07/17/18 levofloxacin [Levaquin] 750 mg PO DAILY #6 tab 07/30/18 tramadol 50 mg PO Q6H PRN #10 tab 07/30/18 Allergies Allergy/AdvReac Type Severity Reaction Status Date / Time hydrocodone Allergy Intermediate RASH/HIVES Verified 07/30/18 16:10 Penicillins Allergy Intermediate RASH/HIVES Verified 07/30/18 16:10 metronidazole Allergy Mild RASH Verified 07/30/18 16:10 diphenhydramine Allergy Unknown Verified 07/30/18 16:10 [DIPHENHYDRAMINE] ibuprofen Allergy Unknown Verified 07/30/18 16:10 oxycodone [OXYCODONE] Allergy Unknown Verified 07/30/18 16:10 venom-wasp Allergy Verified 07/30/18 16:10 ranitidine AdvReac Intermediate SOB/DIZZY Verified 07/30/18 16:10 sulfamethoxazole AdvReac Mild GI UPSET Verified 07/30/18 16:10 [From Bactrim] trimethoprim [From Bactrim] AdvReac Mild GI UPSET Verified 07/30/18 16:10 fentanyl [FENTANYL] AdvReac Unknown vomiting Verified 07/30/18 16:10 ANTACIDS AdvReac Unknown Uncoded 07/30/18 16:10 Review of Systems Constitutional Denies fever(s) Cardiovascular Denies chest pain and Denies dyspnea Respiratory Reports cough and Denies dyspnea Comments: Patient states she is at her baseline respiratory status Gastrointestinal Gastrointestinal: Reports abdominal pain, Denies change in stool character and Reports vomiting Genitourinary Denies dysuria Musculoskeletal Denies myalgias and Denies arthralgias Integumentary/Breasts Denies rash Hematologic/Lymphatic Denies easy bleeding and Denies easy bruising FOR[facility]LY [facility] Medical History (Updated 10/27/18 @ 00:45 by Kwabena Hernandez DO) Tracheobronchitis (Chronic) Chronic pain (Acute) Community acquired pneumonia (Resolved) Tracheostomy complication (Acute) Otitis media, purulent, acute, with spontaneous rupture of TM (Resolved) History of hysterectomy (Acute) MRSA (methicillin resistant Staphylococcus aureus) (Acute) Laryngeal cancer (Chronic) Surgical History Hx of appendectomy (Acute) Social History household members: significant other Smoking Status: Former smoker alcohol intake: former Social History household members: significant other Smoking Status: Former smoker alcohol intake: former Exam Initial Vital Signs Initial Vital Signs: Vital Signs Temperature 98.6 F 10/26/18 18:46 Pulse Rate 91 H 10/26/18 18:46 Respiratory Rate 22 10/26/18 18:46 Pulse Oximetry 95 10/26/18 18:46 Const General: cooperative and No acute distress Orientation: alert and awake HENMT Head: normal to inspection and normocephalic Neck Other: Trach in place. Does have an area of skin ulceration the right side of the trach. Resp Effort & Inspection: not labored and tachypneic Auscultation: crackles Cardio Rate: regular rate Rhythm: regular rhythm GI Inspection: non-distended Palpation: soft, No firm and tender (Generalized abdominal tenderness) Skin Other: Skin ulceration to the right side of the trach where the neck pain and for the trach crosses. No abscess. Neuro General: alert and awake Cognition: normal cognition Extrem General: normal to inspection and capillary refill normal Psych Appearance: grossly normal and well kempt Scores GCS [place] coma scale eye opening: Spontaneous Jeff coma scale verbal response: Orientated Jeff coma scale motor response: Obey commands Jeff coma scale total score: 15 Course Orders Ordered: ED Orders 10/26/18 18:52 Complete Blood Count AUTO DIFF Stat Comprehensive Metabolic Panel Stat Lipase Stat 10/26/18 18:55 CT abdomen pelvis w con Stat 10/26/18 18:56 RT Consult Eval and Treat Now 10/26/18 19:09 Lactate (Lactic Acid) Stat Lactated Ringer's (Lactated Ringers) 1,000 mls @ 42 mls/hr IV CONT DAMARIS Last Admin: 10/26/18 21:45 Dose: 42 mls/hr Levofloxacin (Levaquin) 500 mg in 100 mls @ 100 mls/hr IV NOW ONE Stop: 10/27/18 00:51 Last Infusion: 10/26/18 23:20 Dose: 0 mls/hr Admin: 10/26/18 22:56 Dose: 100 mls/hr Vancomycin HCl (Vancomycin) 1,000 mg in 200 mls @ 200 mls/hr IV NOW ONE Stop: 10/27/18 00:51 Discontinued Medications Albuterol (Ventolin) 2.5 mg INH NOW ONE Stop: 10/26/18 21:48 Last Admin: 10/26/18 22:03 Dose: 2.5 mg Benzocaine (Dermoplast Ferron) 1 spray TOP NOW ONE Stop: 10/26/18 20:59 Bupivacaine HCl/Epinephrine Bitart (Sensorcaine 0.25% W/ Epi (Pf)) 30 ml INJ NOW ONE Stop: 10/27/18 00:00 Last Admin: 10/26/18 23:59 Dose: 30 ml Vancomycin HCl/Dextrose (Vancomycin) 1,500 mg in 300 mls @ 200 mls/hr IV NOW ONE Stop: 10/26/18 23:25 Last Infusion: 10/26/18 22:55 Dose: 0 mls/hr Admin: 10/26/18 22:00 Dose: 200 mls/hr Levofloxacin (Levaquin) 750 mg in 150 mls @ 100 mls/hr IV NOW ONE Stop: 10/26/18 23:28 Last Admin: 10/27/18 00:03 Dose: Not Given Morphine Sulfate (Morphine) 4 mg IV NOW ONE Stop: 10/26/18 18:55 Last Admin: 10/26/18 19:14 Dose: 4 mg Ondansetron HCl (Zofran) 4 mg IV NOW ONE Stop: 10/26/18 18:55 Last Admin: 10/26/18 19:14 Dose: 4 mg Vital Signs - 8 hr 10/26/18 18:46 10/26/18 19:20 10/26/18 19:46 Temperature 98.6 F Pulse Rate 91 H 72 Respiratory Rate 22 24 Blood Pressure Blood Pressure [Right Wrist] 106/67 Pulse Oximetry 95 97 10/26/18 20:00 10/26/18 21:17 10/26/18 21:55 Temperature 97.6 F Pulse Rate 70 82 81 Respiratory Rate 20 24 Blood Pressure 142/95 H Blood Pressure [Right Wrist] 120/69 173/110 H Pulse Oximetry 93 95 92 MDM - Abdominal Pain Lab Data Attestation: I reviewed the patient's lab results. Result diagrams: 10/26/18 18:52 10/26/18 18:52 Lab Results 10/26/18 10/26/18 10/26/18 Range/Units 18:52 18:52 19:09 WBC 11.5 H (4.5-11.0) X10^3/uL RBC 4.65 (4.0-5.2) X10^6/uL Hgb 14.3 (12.0-16.0) g/dL Hct 42.5 (36-46) % MCV 91.4 (80-100) fL MCH 30.7 (26-34) PG MCHC 33.6 (30-36) % RDW 14.2 (11.6-14.8) % Plt Count 314 (150-400) X10^3/uL Neut % (Auto) 79.0 H (50-75) % Lymph % (Auto) 8.9 L (25-40) % Day % (Auto) 7.6 (3-14) % Eos % (Auto) 4.0 (2-4) % Baso % (Auto) 0.5 (0-2) % Neut # (Auto) 9000 H (2868-1826) /uL Lymph # (Auto) 1000 L (7848-1116) /uL Day # (Auto) 900 (0-900) /uL Eos # (Auto) 500 H (0-450) /uL Baso # (Auto) 100 (0-100) /uL Sodium 141 (137-145) mmol/L Potassium 4.2 (3.4-5.1) mmol/L Chloride 104 (98-107) mmol/L Carbon Dioxide 26 (22-32) mmol/L BUN 13 (7-17) mg/dL Creatinine 0.70 (0.52-1.04) mg/dL Estimated GFR > 60.0 (>60) mL/min BUN/Creatinine Ratio 18.6 (6-22) Glucose 88 (70-100) mg/dL Lactate 0.8 (0.7-2.1) mmol/L Calcium 8.6 (8.4-10.2) mg/dL Total Bilirubin 0.3 (0.2-1.3) mg/dL AST 23 (14-36) IU/L ALT 13 (9-52) IU/L Alkaline Phosphatase 92 (38-126) U/L Total Protein 7.2 (6.3-8.2) g/dL Albumin 4.2 (3.5-5.0) g/dL Globulin 3.0 (1.7-4.1) g/dL Albumin/Globulin Ratio 1.4 (1.0-2.8) Lipase 223 (23-300) U/L Imaging Data CT scan - abdomen: Radiologist's impression: [address] [address] [address] Scan Report Signed Patient: Nai Zeng SMR#: [id number] : 1Acct:[id number] Age/Sex: 58 / FDate of Service: 10/26/18 Loc: ED Accession Number: [id number] Procedure: CT abdomen pelvis w con Ordering Provider: Kwabena Hernandez D.O. PROCEDURE: CT ABDOMEN PELVIS W CON INDICATIONS: Generalized abdominal pain TECHNIQUE: After the administration of intravenous contrast, 5 mm thick sections acquired from the diaphragm to the symphysis. 5 mm coronal and sagittal reformats were acquired. For radiation dose reduction, the following was used: automated exposure control, adjustment of mA and/or kV according to patient size. COMPARISON: [facility], CT, CT ANGIO CHEST PE PROTOCOL, 07/17/2018, 3:44. FINDINGS: Image quality: Excellent. ABDOMEN: Lung bases: Lung bases are clear. Heart size is normal. Solid organs: Liver is normal in size and enhancement. Gallbladder is unremarkable. Biliary system is non dilated. Pancreas enhances normally. Spleen is normal in size and enhancement. No adrenal nodules. Kidneys demonstrate normal size and enhancement, without hydronephrosis. Peritoneum and bowel: Stomach is moderately distended with food material and gas. The proximal small bowel demonstrates normal course and caliber. Multiple dilated loops of small bowel are present within the pelvis. Some of these are filled with solid appearing stool suggestive of slow transit. Perienteric fat stranding is present around these dilated loops of small bowel. Focal transition points are present at the beginning and end of the dilated portion of small bowel. Distal small bowel is decompressed. The colon demonstrates normal caliber and wall thickness is stool filled. There are scattered diverticula throughout the colon. No evidence for diverticulitis. No pneumoperitoneum. Nodes and vessels: No retroperitoneal or mesenteric adenopathy by size criteria. Aorta and inferior vena cava are normal in size. There are scattered atheromatous calcifications throughout the aorta and iliac arteries bilaterally. Miscellaneous: There is a fat containing umbilical hernia. PELVIS: Genitourinary: Bladder wall thickness is normal. Miscellaneous: No inguinal hernias or adenopathy. Bones: No suspicious bony lesions. Severe compression deformity is redemonstrated at L1, unchanged from the study dated 07/17/18. IMPRESSION: 1. Focal small bowel dilatation with visualized transition points suggesting a closed-loop, partial small bowel obstruction. Internal hernia could also be considered in differential diagnosis. Surgical consultation recommended. This finding was discussed with Dr. Hernandez at 7:45 PM on 10/26/18. Dictated by: Charity Tran M.D. on 10/26/2018 at 19:39 Approved by: Charity Tran M.D. on 10/26/2018 at 19:48 MDM Narrative Medical decision making narrative: Patient is at her baseline respiratory status. She does have generalized abdominal tenderness. Patient only states she has had a hysterectomy and an appendectomy. CT scan does show signs of a closed loop bowel obstruction. I did discuss the case with Dr. Francis with General surgery who evaluated the patient in the emergency department. Plan will be to admit the patient to the general surgery service to take to the operating room. I did discuss the findings on the CT scan with the patient. She expressed understanding and agreement. Discharge Plan Departure Patient Disposition: Admitted As Inpatient Clinical Impression: Bowel obstruction Qualifiers: Intestinal obstruction type: unspecified Intestinal obstruction extent: partial Qualified Code(s): K56.600 - Partial intestinal obstruction, unspecified as to cause Discharge Date/Time: 10/26/18 21:30 Interventions: ED Discharge Assessment Last Done: 10/26/18 21:30 Admit Date/Time: 10/26/18 21:18 Admit Provider: Cesar Francis
[2018-10-26 19:03] LABS: Add Manual Diff / Slide Review NO; Basophils Absolute Auto 100 /uL (0-100); Basophils Percent Auto 0.5 % (0-2); Eosinophils Absolute Auto 500 /uL (0-450); Hematocrit 42.5 % (36-46); Hemoglobin 14.3 g/dL (12.0-16.0); Lymphocytes Absolute Auto 1000 /uL (1100-4500); Lymphocytes Percent Auto 8.9 % (25-40); Mean Corpuscular HGB Conc 33.6 % (30-36); Mean Corpuscular Hemoglobin 30.7 PG (26-34); Mean Corpuscular Volume 91.4 fL (80-100); Monocytes Absolute Auto 900 /uL (0-900); Monocytes Percent Auto 7.6 % (3-14); Neutrophils Absolute Auto 9000 /uL (1500-7000); Platelet Count 314 X10^3/uL (150-400); Red Blood Cell Count 4.65 X10^6/uL (4.0-5.2); Red Cell Distribution Width 14.2 % (11.6-14.8); White Blood Cell Count 11.5 X10^3/uL (4.5-11.0)
[2018-10-26] MEDS: MORPHINE 4 MG/ML INJ IV (19:14)
[2018-10-26] MEDS: ONDANSETRON 4 MG/2 ML INJ IV (19:14)
[2018-10-26 19:16] LABS: Alanine Aminotransferase 13 IU/L (9-52); Albumin 4.2 g/dL (3.5-5.0); Albumin Globulin Ratio 1.4 (1.0-2.8); Alkaline Phosphatase 92 U/L (38-126); Aspartate Aminotransferase 23 IU/L (14-36); BUN Creatinine Ratio 18.6 (6-22); Bilirubin Total 0.3 mg/dL (0.2-1.3); Blood Urea Nitrogen 13 mg/dL (7-17); Calcium 8.6 mg/dL (8.4-10.2); Carbon Dioxide 26 mmol/L (22-32); Chloride 104 mmol/L (98-107); Estimated Glomerular Filt Rate > 60.0 mL/min (>60); Glucose 88 mg/dL (70-100); HEMOLYSIS 29 (0-50); Lipase 223 U/L (23-300); Potassium 4.2 mmol/L (3.4-5.1); Sodium 141 mmol/L (137-145); Total Protein 7.2 g/dL (6.3-8.2)
[2018-10-26 19:20] VITALS: RESP 24
--- NOTE | 2018-10-26 19:23 | PC.NURSE ---
rt suctioned pt via her trach.
[2018-10-26 19:31] LABS: Lactate (Lactic Acid) 0.8 mmol/L (0.7-2.1)
[2018-10-26 19:46] VITALS: BP 106/67; PULSE 72; O2SAT 97
[2018-10-26 20:00] VITALS: BP 120/69; PULSE 70; RESP 20; O2SAT 93
[2018-10-26 21:17] VITALS: BP 173/110; PULSE 82; O2SAT 95
--- NOTE | 2018-10-26 21:30 | PC.NURSE ---
2130 Nasogastric tube placed by Dr. Francis, 16 pal[place] 55@ the nose with immediate return of 50ml output.
[2018-10-26] MEDS: LACTATED RINGERS 1,000 ML 42 ML IV (21:45)
--- NOTE | 2018-10-26 21:52 | P.HP_ITS ---
History of Present Illness Date Patient Seen: 10/26/18 Time Patient Seen: 21:49 Chief complaint: Abdominal pain Narrative: 58 yo woman with hx of COPD, obesity and s/p total laryngectomy and radical neck dissection in [address] [facility] followed by XRT for laryngeal cancer, she had flap reconstruction. Of note patient is also status post open appendectomy in the as well as a total abdominal hysterectomy for what by history appears to be dysfunctional uterine bleeding. Today patient presented to the emergency department with progressive worsening lower abdominal pain as well as nausea and vomiting. She reports new onset of diarrhea bowel movements the last of which was earlier today, she is no longer passing flatus. She endorses increasing abdominal distension. Her pain is moderately severe, comes in waves In the emergency department she was found to have a leukocytosis of 11.5 with a left shift at 79% neutrophils. A CT of the abdomen pelvis demonstrated a long dilated loop of small bowel in the pelvis with an obvious transition point. There was free fluid adjacent to the bowel with mesenteric edema and fecalization of small-bowel contents. The read was concern for a closed loop obstruction or internal hernia. Patient History Family & Social History Social History: household members significant other Tobacco & Substance use: Smoking Status Former smoker alcohol intake former alcohol intake frequency 0-2 drinks per day Substance Use Type does not use Meds Home Medications Medication Instructions Recorded Confirmed Type albuterol sulfate 1 dose INHALATION QIDP PRN #180 01/25/16 07/30/18 History docusate sodium 100 mg PO BID #0 01/25/16 05/24/18 History ferrous gluconate 324 mg PO DAILY #0 08/28/16 05/25/18 History acetaminophen 325 mg PO Q6HP PRN #0 10/29/16 05/24/18 History amitriptyline 25 mg PO BEDTIME #0 01/22/17 05/25/18 History ascorbic acid (vitamin C) 500 mg PO DAILY #0 06/10/17 05/25/18 History fexofenadine 180 mg PO DAILY #0 06/10/17 07/30/18 History nystatin 1 dose PO DIRECTED #0 06/10/17 05/25/18 History sodium chloride 0.9 % 1 vial QID PRN #0 06/10/17 07/30/18 History citalopram 40 mg PO DAILY 09/21/17 07/30/18 History lisinopril 10 mg PO BID 09/21/17 05/24/18 History levothyroxine 1 tab PO DAILY 01/04/18 07/30/18 History prednisone 10 mg PO BID #10 tab 01/06/18 05/25/18 Rx estradiol 1 mg PO DAILY 01/25/18 07/30/18 History gentamicin 1 applic TOPICAL DIRECTED 05/24/18 07/30/18 History levofloxacin [Levaquin] 750 mg PO DAILY #7 tab 07/17/18 Rx tramadol 50 mg PO Q6H PRN #10 tab 07/17/18 Rx levofloxacin [Levaquin] 750 mg PO DAILY #6 tab 07/30/18 Rx omeprazole 40 mg PO DAILY 07/30/18 07/30/18 History tramadol 50 mg PO Q6H PRN #10 tab 07/30/18 Rx Allergies Allergy/AdvReac Type Severity Reaction Status Date / Time hydrocodone Allergy Intermediate RASH/HIVES Verified 07/30/18 16:10 Penicillins Allergy Intermediate RASH/HIVES Verified 07/30/18 16:10 metronidazole Allergy Mild RASH Verified 07/30/18 16:10 diphenhydramine Allergy Unknown Verified 07/30/18 16:10 [DIPHENHYDRAMINE] ibuprofen Allergy Unknown Verified 07/30/18 16:10 oxycodone [OXYCODONE] Allergy Unknown Verified 07/30/18 16:10 venom-wasp Allergy Verified 07/30/18 16:10 ranitidine AdvReac Intermediate SOB/DIZZY Verified 07/30/18 16:10 sulfamethoxazole AdvReac Mild GI UPSET Verified 07/30/18 16:10 [From Bactrim] trimethoprim [From Bactrim] AdvReac Mild GI UPSET Verified 07/30/18 16:10 fentanyl [FENTANYL] AdvReac Unknown vomiting Verified 07/30/18 16:10 ANTACIDS AdvReac Unknown Uncoded 07/30/18 16:10 Review of Systems Review of Systems other (unable to obtain due to tracheostomy/laryngectomy ) Exam Vital Signs (past 8 hours): - 10/26/18 18:46 10/26/18 19:20 10/26/18 19:46 Temperature 98.6 F Pulse Rate 91 H 72 Respiratory Rate 22 24 Blood Pressure [Right Wrist] 106/67 Pulse Oximetry 95 97 10/26/18 20:00 10/26/18 21:17 Temperature Pulse Rate 70 82 Respiratory Rate 20 Blood Pressure [Right Wrist] 120/69 173/110 H Pulse Oximetry 93 95 Oxygen Delivery Method Room Air Narrative Exam Narrative: Unwell-appearing woman in obvious pain She is without teeth There is a tracheostomy in place -is cannulated with an uncuffed tube Her significant scarring from radiation to the neck She has distant bilateral breath sounds without adventitial sounds Heart sounds are distant regular rate and rhythm without murmurs gallops or rubs Abdomen is distended, she has an upper midline incision as well as a lower midline incision as well as a Marvin-Jayden incision, she is tender to percussion, she is dull to percussion, she is tender to palpation over bilateral lower quadrant -there is a moderate amount of tenderness would bed shake test. Moderate reflects a guarding Const General: cooperative Orientation: alert HENMT Nose: nares normal Neck Neck: supple and other (No thyromegally) Chest Chest: other (LCTAB , regular respiratory effort) Cardio Rhythm: regular rhythm Heart Sounds: S1 normal, S2 normal, no gallops, no murmurs and no rubs Skin General: no rashes or lesions noted Neuro General: alert and awake Psych Appearance: grossly normal Affect: normal affect Objective Labs Result Diagrams: 10/26/18 18:52 10/26/18 18:52 Labs: Laboratory Results - last 24 hr 10/26/18 10/26/18 10/26/18 18:52 18:52 19:09 WBC 11.5 H RBC 4.65 Hgb 14.3 Hct 42.5 MCV 91.4 MCH 30.7 MCHC 33.6 RDW 14.2 Plt Count 314 Neut % (Auto) 79.0 H Lymph % (Auto) 8.9 L [place] % (Auto) 7.6 Eos % (Auto) 4.0 Baso % (Auto) 0.5 Neut # (Auto) 9000 H Lymph # (Auto) 1000 L [place] # (Auto) 900 Eos # (Auto) 500 H Baso # (Auto) 100 Sodium 141 Potassium 4.2 Chloride 104 Carbon Dioxide 26 BUN 13 Creatinine 0.70 Estimated GFR > 60.0 BUN/Creatinine Ratio 18.6 Glucose 88 Lactate 0.8 Calcium 8.6 Total Bilirubin 0.3 AST 23 ALT 13 Alkaline Phosphatase 92 Total Protein 7.2 Albumin 4.2 Globulin 3.0 Albumin/Globulin Ratio 1.4 Lipase 223 Assessment & Plan Assessment & Plan narrative: 58-year-old woman -was surgical history includes total abdominal hysterectomy, appendectomy, as well as a radical neck dissection with total laryngectomy -who now presents with a likely closed loop small-bowel obstruction. Clinically she obstipated with progressively worsening abdominal pain, radiographically there is a dilated distal loop of likely ileum with a clear transition point. I am concerned by both her level pain as well as the presence on CT scan of adjacent free fluid and mesenteric edema to her bowel loop. Given this I do not think conservative management is safe - Given the patient's COPD/smoking history would like to limit her respiratory compromise -was started laparoscopically for laparoscopic lysis of his seizures and laparoscopic exploration. I discussed at length the potential need to convert to open, possible bowel hours, possible ostomy, possible open exploratory laparotomy. Overall explained that the risk of not operating far outweigh the risks of surgery -even though in this case there is significant given patient's comorbidities particularly her respiratory an airway history Plan: OR plan as above Perioperative antibiotic -levofloxacin plus vancomycin for history of MRSA and potential bowel case Postop in ICU for nursing needs, and respiratory status
[2018-10-26 21:55] VITALS: BP 142/95; PULSE 81; RESP 24; TEMP 36.4; O2SAT 92
[2018-10-26] MEDS: VANCOMYCIN 1,500 MG/300 ML FROZ.PIGGY 200 MG IV (22:00)
[2018-10-26] MEDS: ALBUTEROL 2.5 MG/3 ML NEB (ADULT) INH (22:03)
--- NOTE | 2018-10-26 22:06 | PC.NURSE ---
Dwaine Arreola pt sister in law called, was updated on plan of care per pt request and can be reached at [phone]. Dr. Hernandez aware.
[2018-10-26] MEDS: levoFLOXacin 500 MG/100 ML PIGGYBACK 100 MG IV (22:56)
--- NOTE | 2018-10-26 23:30 | SUR.OPER ---
Supine on padded OR bed, head on pillow, one arm padded and tucked at side, other arm on padded armboard and extended at less than 90 degrees from body., legs uncrossed, safety belt at thigh, tape over blanket over lower legs .
[2018-10-26] MEDS: BUPIVACAINE 0.25% W/ EPI 30 ML VIAL INJ (23:59)
[2018-10-27] VITALS (19 sets, daily range): BP systolic 92–138; BP diastolic 49–79; PULSE 68–93; RESP 6–21; TEMP 36.1–37.2; O2SAT 90–96; BMI 40.3
[2018-10-27] MEDS: LACTATED RINGERS 1,000 ML 42 ML IV (00:54)
[2018-10-27] MEDS: HYDROMORPHONE 1 MG INJ IV ×5 (01:50→03:05)
--- NOTE | 2018-10-27 01:55 | P.OP_ITS ---
Operative Date/Time/Diagnoses Date of procedure: 10/27/18 Time of procedure: 01:54 Pre-op diagnosis: Closed loop small bowel obstruction Post-op diagnosis: same Procedure & Clinicians Procedure: Diagnostic laparoscopy Laparoscopic lysis of adhesion Primary suture closure of umbilical hernia Same procedure as scheduled: Yes Indications: 58 yo woman with hx of COPD, obesity and s/p total laryngectomy and radical neck dissection in 2008 at the [facility] followed by XRT for laryngeal cancer, she had flap reconstruction. Of note patient is also status post open appendectomy in the as well as a total abdominal hysterectomy for what by history appears to be dysfunctional uterine bleeding. Today patient presented to the emergency department with progressive worsening lower abdominal pain as well as nausea and vomiting. She reports new onset of diarrhea bowel movements the last of which was earlier today, she is no longer passing flatus. She endorses increasing abdominal distension. Her pain is moderately severe, comes in waves In the emergency department she was found to have a leukocytosis of 11.5 with a left shift at 79% neutrophils. A CT of the abdomen pelvis demonstrated a long dilated loop of small bowel in the pelvis with an obvious transition point. There was free fluid adjacent to the bowel with mesenteric edema and fecalization of small-bowel contents. The read was concern for a closed loop obstruction or internal hernia. Surgeon: Cesar Francis Click Yes if Unassisted: Yes Anesthesia Type: General Operative Notes Findings: Dilated small bowel loop and pelvis with nest of adherent loops of small bowel -obvious site of obstruction -mid ileum All bowel viable without ischemic change 2.5 x 2.5 cm umbilical hernia Closure Type: primary Specimen(s): none sent Estimated Blood Loss (mL): 20 Procedure in detail: Patient was taken to the operating room she -her existing trach was exchanged under sedation for a cuffed 6-0 endotracheal tube. She was prepped and draped in the usual sterile fashion a time-out was completed. Entry into the abdomen was performed using Mejia cutdown technique this was performed directly superior to her umbilicus via short midline incision. Upon dissecting through the subcutaneous tissue a hernia defect was encountered with a bulging hernia sac. Sac was opened in a 11 mm trocar easily inserted through it. A suture tie was used to seal the hernia sac around the trocar, a single anchoring stitch was used to anchor the trocar to the skin. The abdomen was insufflated without is, a total of 3 5 mm ports were then placed 1 in the suprapubic region the other in the left lower quadrant the other in the left upper quadrant. Inspecting the abdomen there was a moderate amount of adhesive disease. The greater omentum was identified grasped and reflected cephalad. Right colon was identified and traced inferiorly to identify the cecum. Fly's veil was identified as was the terminal ileum this was decompressed. The ileum was then run distal to proximal until multiple adhesions were encountered. There was a dense nest of adhesions involving several loops of bowel within approximately a 50 cm segment -using retraction counter retraction and Metzenbaum scissors these were carefully lysed laparoscopic being quite careful to avoid any unintentional intestinal wall injury. Slowly we progressed from distal to proximal lysing the adhesions. The nest was successfully opened into broad loops of bowel. Mesenteric edema and some free fluid was encountered. The bowel itself appeared generally healthy without ischemic change. Then proceeded to continue to run the bowel proximally progressing towards the ligament of Treitz -there was a 2nd area of adhesions without dilated bowel that was encountered this was similarly lysed. The lysis progressed to a site of an obvious stapled anastomosis. At this point I reviewed the abdominal CT -I confirmed that all the pathologic bile dilation fecalization of intestinal contents, and bowel wall edema was distal to the anastomosis. Given this did not want to subject the patient to additional had thirds of further lysis all the way to the ligament of Treitz -I felt that we had definitively identified and dealt with the problem at hand. I again ran the small bile from the ileocecal valve to the stapled anastomosis confirming the absence of any additional loops, inspecting the area of lysis and identifying no injury. The abdominal contents were then washed out. A drain was left in place to remove additional fluid. A 19 Thai Ariel was utilized to pass through the suprapubic port and sutured in place At this point ports were withdrawn under direct visualization and the abdomen was deinsufflated Next we proceeded to repair the umbilical hernia -the hernia sac was fully excised back to healthy viable fascial tissue. Small bleeder on the hernia sac was ligated using a 2 0 Vicryl stitch. Then proceeded to close the fascial defect transversely using simple interrupted over PDS suture there was no tension there was good fascial primary closure Local anesthetic was infiltrated into the wounds Skin was closed using monofilament orbital suture in subcuticular fashion, an additional layer of deep dermal side was used on the umbilical incision Patient was extubated and transition to blow-by successfully Complications: none Condition: stable Disposition: PACU Plan for aftercare: To ICU for close respiratory monitoring
--- NOTE | 2018-10-27 03:03 | SUR.PHASEI ---
pt to icu 5 via bed with xiomara rizzo RN as assit. Arrived at 0252 am report to Valerie ESPINOZA. abdominal HUAN having sero sanguineous drainage . i reported that Dr thomson feels that it will have 1 liter output by am and asked that i relay the info to receiving RN.patient in stable condition with Vital signs stable on transfer
[2018-10-27 04:55] LABS: Add Manual Diff / Slide Review NO; Basophils Absolute Auto 0 /uL (0-100); Basophils Percent Auto 0.2 % (0-2); Eosinophils Absolute Auto 0 /uL (0-450); Hematocrit 37.6 % (36-46); Hemoglobin 12.5 g/dL (12.0-16.0); Lymphocytes Absolute Auto 400 /uL (1100-4500); Lymphocytes Percent Auto 2.7 % (25-40); Mean Corpuscular HGB Conc 33.1 % (30-36); Mean Corpuscular Hemoglobin 29.9 PG (26-34); Mean Corpuscular Volume 90.4 fL (80-100); Monocytes Absolute Auto 100 /uL (0-900); Monocytes Percent Auto 0.8 % (3-14); Neutrophils Absolute Auto 13300 /uL (1500-7000); Neutrophils Percent Auto 96.3 % (50-75); Platelet Count 272 X10^3/uL (150-400); Red Blood Cell Count 4.16 X10^6/uL (4.0-5.2); Red Cell Distribution Width 14.1 % (11.6-14.8); White Blood Cell Count 13.9 X10^3/uL (4.5-11.0)
[2018-10-27 05:06] LABS: BUN Creatinine Ratio 18.6 (6-22); Blood Urea Nitrogen 13 mg/dL (7-17); Calcium 7.8 mg/dL (8.4-10.2); Carbon Dioxide 26 mmol/L (22-32); Chloride 103 mmol/L (98-107); Estimated Glomerular Filt Rate > 60.0 mL/min (>60); Glucose 139 mg/dL (70-100); HEMOLYSIS < 15 (0-50); Magnesium 1.9 mg/dL (1.6-2.3); Sodium 138 mmol/L (137-145)
[2018-10-27] MEDS: HYDROMORPHONE 0.5 MG INJ IV ×5 (05:16→21:56)
[2018-10-27] MEDS: LACTATED RINGERS 1,000 ML 84 ML IV ×2 (05:17→14:46)
[2018-10-27] MEDS: ONDANSETRON 4 MG/2 ML INJ IV ×5 (05:17→20:21)
--- NOTE | 2018-10-27 06:21 | PC.NURSE ---
Patient is admitted to ICU from PACU at 0250, oriented, anxious, c/o abdominal pain, IV Dilaudid given per prn, see Emar. SR, BP stable, see vital trends, humidification over trach, SpO2 92-96%, breath sounds clear with occasional upper airway wheeze. HUAN patent, compressed, drsg at site CDI, lap incisions to abdomen intact without erythema or drainage.NGT to LIS, scant thick pinkish white output. C/O itching near dressings on neck at trach site, writes that wound clinic needs to change them
[2018-10-27] MEDS: ACETAMINOPHEN SUSP 650 MG/20.3 ML UDC TUBE (06:54)
[2018-10-27] MEDS: ENOXAPARIN 30 MG/0.3 ML SYRINGE SUBCUT (09:00)
[2018-10-27] MEDS: predniSONE 20 MG TABLET 10 MG PO ×2 (09:00→20:21)
[2018-10-27] MEDS: PANTOPRAZOLE 40 MG VIAL IV (09:01)
[2018-10-27] MEDS: POLYETHYLENE GLYCOL 3350 17 GM POWD.PACK PO (09:01)
[2018-10-27] MEDS: LORATADINE 10 MG TABLET PO (09:01)
[2018-10-27] MEDS: LEVOTHYROXINE 88 MCG TABLET PO (09:03)
[2018-10-27] MEDS: CITALOPRAM 20 MG TABLET 40 MG PO (09:09)
--- NOTE | 2018-10-27 12:52 | PT.IIE ---
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], with partial obstruction (10/26/18) Surgery Performed Operation Date: 10/26/18 21:05 Actual Procedures p diagnostic laparoscopy, lysis of adhesions, primary repair of umbilical hernia - Cesar Francis MD Surgical History (Last Reviewed 10/27/18 @ 00:45 by Kwabena Hernandez DO) Hx of appendectomy (Acute) Medical History (Last Updated 10/27/18 @ 00:45 by Kwabena Hernandez DO) Tracheobronchitis (Chronic) Chronic pain (Acute) Community acquired pneumonia (Resolved) Tracheostomy complication (Acute) Otitis media, purulent, acute, with spontaneous rupture of TM (Resolved) History of hysterectomy (Acute) MRSA (methicillin resistant Staphylococcus aureus) (Acute) Laryngeal cancer (Chronic) Physical Therapy Inpatient Evaluation/Re-Eval M1 PT/OT-IP Prior Functional Status Start: 10/27/18 09:03 Freq: NEEDED Status: Active Protocol: Document 10/27/18 12:24 AW (Rec: 10/27/18 12:52 AW [id number]) Medical Review Prior Functional Status Medical History Reviewed Yes Diet/Fluid Consistency NPO Communication Pt has trach secondary to laryngeal cancer. Respiratory status is at baseline. Pt communicates primarily by writing in a note pad, occasionally by mouthing/ whispering. Mobility and Gait Pt has a SPC and reports occasional use of this device in both home and community contexts. Activities of Daily Living and IADL's Pt reports caregiving requirements limited to driving. She has caregiver support 2-3 days per week. She otherwise reports independence with dressing, bathing, toileting. Social History Household Members significant other Living Arrangements House Number of Floors (Floors) One Floor Number of Stairs To Enter/Railing? 3 GERARDO with R rail ascending Home Environment Standard Height Toilet Tub/Shower Home Equipment Straight Cane Grab Bars In Shower Employment Status Unknown Additional Social History Comment Pt lives in [place] with her significant other, JR, who works full-time at a local [employer]. He provides assistance as needed when he is home. Pt 's brother, friend, and part- time caregiver are also available to assist. M2 PT-IP Current Condition Start: 10/27/18 09:03 Freq: NEEDED Status: Active Protocol: Document 10/27/18 12:24 AW (Rec: 10/27/18 12:52 AW [id number]) Physical Therapy Current Condition Current Condition Evaluation Date 10/27/18 Treatment Diagnosis SBO s/p abd surgery; impaired bed mobillity, transfers, gait Precautions Abdominal Surgery Precautions Log Roll Lifting Restrictions Gait Belt above Incisional Area M3 PT-IP Subjective Start: 10/27/18 09:03 Freq: NEEDED Status: Active Protocol: Document 10/27/18 12:24 AW (Rec: 10/27/18 12:52 AW [id number]) Subjective Physical Therapy Visit Type Type Initial Evaluation Visit Start Time 10:03 Visit Stop Time 10:55 Total Visit Minutes 52 Number of COPY OPERATOR Visits 0 Physical Therapy Visit Comments Patient Comments Pt anxious about mobilizing but willing to work with PT. Patient Goals Pt hopes to return to home with increased support/ assistance as needed Therapy Pain Assessment Pain When Pain Assessed During Mobility Pain Present Pain Present Pain Reported Location Abdomen Intensity 7 Scale Used Numeric (1 - 10) M4 PT-IP Mobility and Gait Start: 10/27/18 09:03 Freq: NEEDED Status: Active Protocol: Document 10/27/18 12:24 AW (Rec: 10/27/18 12:52 AW [id number]) PT-Bed Mobility Assessment Rolling Type of Rolling Log Rolling Level of Assist Moderate Assistance 2 Person Assistance Supine to Sit Supine to Sit Moderate Assistance 2 Person Assistance Scooting Scooting to Edge of Bed Minimal Assistance PT-Transfer Assessment Sit to and From Stand Sit to and from Stand Moderate Assistance 1 Person Assistance Use of Upper Extremities Equipment Transfer Assistive Device Gait Belt Front Wheeled Walker Orthotic/Prosthetic Devices or Brace: No Transfers Transfer Destination Chair Transfer Technique Stand Step Pivot Transfer Ability Level of Assist Moderate Assistance Comments Mobility Comments Pt required mod A for sit to stand and stand step pivot from EOB to bedside chair. PT-Balance Assessment Sitting Balance and Reactions Static Sitting Balance Ability Good Dynamic Sitting Balance Ability Fair Standing Balance and Reactions Static Standing Balance Ability Fair Dynamic Standing Balance Ability Fair M5 PT-IP Objective Assessments Start: 10/27/18 09:03 Freq: NEEDED Status: Active Protocol: Document 10/27/18 12:24 AW (Rec: 10/27/18 12:52 AW [id number]) Orientation Orientation/Cognition Level of Alertness Alert Orientation Name Month Place Situation Safety Awareness Understands Safety Issues Memory Description No Deficits Noted Comments Pt has a trach and communicates by writing. Gross Range of Motion Upper Extremity ROM Assessment Bilaterally Impaired Impairments Impaired due to abdominal pain Lower Extremity ROM Assessment Within Functional Limits Strength Upper Extremity Strength Assessment Within Functional Limits Lower Extremity Strength Assessment Within Functional Limits Comments Strength Comments Strength appears consistent with baseline Coordination Assessment Gross Coordination Gross Coordination WNL Sensation Assessment Sensation Gross Sensation WNL Light Touch Intact Muscle Tone Muscle Tone WNL Yes M6 PT-IP Treatment Start: 10/27/18 09:03 Freq: NEEDED Status: Active Protocol: Document 10/27/18 12:24 AW (Rec: 10/27/18 12:52 AW [id number]) Physical Therapy Treatment Education Education Provided Precautions Safety M7 PT-IP Assessment and Plan Start: 10/27/18 09:03 Freq: NEEDED Status: Active Protocol: Document 10/27/18 12:24 AW (Rec: 10/27/18 12:52 AW [id number]) PT Summary Assessment and Plan Potential Rehabilitation Potential Good Status of Condition at Evaluation Evolving Summary Impairments Pain ROM Balance Bed Mobility Transfers Gait Activity Tolerance Assessment Summary Pt is seen on POD1 s/p abdominal surgery for SBO. She has a trach secondary to laryngeal cancer at baseline. She communicates by writing. PLOF: Pt reports modified independence with functional mobility with occasional use of a SPC. She has a part-time caregiver who helps her get to appointments. Unclear what else caregiver assists with. CLOF: Pt was able to log roll with min verbal cues and demonstration and mod A. Sidelying to EOB transfer also required mod A and verbal cues. Although not necessary, it was helpful to have a nurse present to assist with line management and communication. Stand step pivot transfer to bedside chair also required mod A. Current level of functional ability is affected by pain and decreased activity tolerance, suggesting she may be home bound at discharge. Will continue to assess, but current PT recommendation is for home with increased caregiver assistance and HH PT to work on bed mobility, transfers, and activity tolerance Goals Bed Mobility Goal Contact Guard Assistance Transfer Goal Contact Guard Assistance Gait Goal Contact Guard Assistance Gait Distance 20 feet Other Goals Pt will ascend/descend 3 stairs using R hand rail ( ascending) with CGA. Days to Meet Goals 5 Frequency of Treatment Frequency Of Treatment Once a Day Treatment Plan Physical Therapy Treatment Plan Bed Mobility Training Transfer Training Gait Training Therapeutic Exercise Balance Retraining Post Op Education Discharge Planning Hot or Cold Pack Neuromuscular Re-ed Coordination Retraining Manual Therapy Recommendations To Nursing Amount of Assist Needed 2 Person Assist Discharge Recommendations PT Discharge Recommendations Home with Assistance Home Health
--- NOTE | 2018-10-27 15:00 | PC.NURSE ---
Pt sat up to chair for approx 3 hours today. 1PA with a walker back to bed. Pt is participative in her own care and makes her needs known with paper/pen due to chronic trach. Pt c/o abd pain, nausea, itching. Pain is relieved to tolerable level with dilaudid, ice, and rest. Receiving zofran for nausea with minimal effect. Requesting her dsg danish trach changed per her PCP's order. Called to Dr. rFancis and reported pt c/o nausea, pain, requesting dsg change. Orders received. Pt declined [place] phenergan. Changed dsg per order. Using call light appropriately.
--- NOTE | 2018-10-27 17:04 | CM.DANOTE ---
DCP/Assessment: Reviewed chart. Patient is a 58yr old female admitted to [facility] with SBO. Patient underwent surgery to repair bowel/hernia on 10-26-18. Surgeon is attending. PCP listed is Dr. Hammer. Primary payor is 1)Relay 2)Medicaid. Attempted to meet with patient this AM to discuss d/c planning. RN reports that patient currently getting nursing care and requesting [facility] come back. Unfortunately, unable to return today. However, did speak with PT and they report current recommendation is Home Health. That may change pending patient's progress. Patient resides with partner in [place]. Unclear on whether or not patient continues to get paid caregivers. P: CM team to f/u on 10-28 to assist with d/c planning needs. May benefit to call CM/Yahir Cruz in [facility] with update. Will plan to discuss with patient first. JIL Reyes Discharge Planning/Care Management CM Discharge Assessment Start: 10/27/18 16:58 Freq: Status: Active Protocol: Document 10/27/18 16:58 KJS (Rec: 10/27/18 17:04 KJS [id number]) Discharge Planning Assessment Assigned Road Consultant JIL Reyes Contact Information Brian ForbesUlysses (life partner) Advance Directives? Yes History Provided By Patient Medical Record Prior Living Arrangements House Household Members significant other Is patient alert and oriented? Yes Caregiver for Another No Comment Patient with total laryngectomy secondary to laryngeal cancer. Comment Yahir Cruz in [facility] is Upholstery Mechanic. Comment Pending needs. Discharge Plan Home Transportation Arrangement Friend/significant other Additional Comment Current recommendation from [facility] is Home Health. Review Status In Process Next Review Type Continued Stay Review
[2018-10-27] MEDS: MAGNESIUM SULFATE 2 GM/50 ML PIGGYBACK IV (17:33)
--- NOTE | 2018-10-27 18:44 | PM.PN.1 ---
Subjective Date Patient Seen: 10/27/18 Time Patient Seen: 18:44 Interval history: pain much improved after surgery NO flatus or BM yet over all feeling well oxygenating on RA much of day now on O2 to assist with humidifying air Exam Vital Signs (past 8 hours): - 10/27/18 12:45 10/27/18 15:41 10/27/18 15:44 Temperature 98.4 F 98.9 F Pulse Rate 68 75 Respiratory Rate 15 13 Blood Pressure 138/70 136/79 Pulse Oximetry 95 96 94 Fraction of Inspired Oxygen 40 Oxygen Delivery Method Humidification,Trach Collar,Blow By Oxygen Flow Rate 10 Narrative Exam Narrative: Well-appearing breathing without difficulty Regular rate and rhythm Abdomen soft and minimally distended, minimally tender Wounds clean dry and intact Fully in place draining clear yellow urine Objective Labs Result Diagrams: 10/27/18 04:40 10/27/18 04:40 Labs: Laboratory Results - last 24 hr 10/26/18 10/26/18 10/26/18 18:52 18:52 19:09 WBC 11.5 H RBC 4.65 Hgb 14.3 Hct 42.5 MCV 91.4 MCH 30.7 MCHC 33.6 RDW 14.2 Plt Count 314 Neut % (Auto) 79.0 H Lymph % (Auto) 8.9 L Price % (Auto) 7.6 Eos % (Auto) 4.0 Baso % (Auto) 0.5 Neut # (Auto) 9000 H Lymph # (Auto) 1000 L Price # (Auto) 900 Eos # (Auto) 500 H Baso # (Auto) 100 Sodium 141 Potassium 4.2 Chloride 104 Carbon Dioxide 26 BUN 13 Creatinine 0.70 Estimated GFR > 60.0 BUN/Creatinine Ratio 18.6 Glucose 88 Lactate 0.8 Calcium 8.6 Magnesium Total Bilirubin 0.3 AST 23 ALT 13 Alkaline Phosphatase 92 Total Protein 7.2 Albumin 4.2 Globulin 3.0 Albumin/Globulin Ratio 1.4 Lipase 223 Nasal Screen MRSA (PCR) 10/27/18 10/27/18 10/27/18 02:50 04:40 04:40 WBC 13.9 H RBC 4.16 Hgb 12.5 Hct 37.6 MCV 90.4 MCH 29.9 MCHC 33.1 RDW 14.1 Plt Count 272 Neut % (Auto) 96.3 H Lymph % (Auto) 2.7 L Price % (Auto) 0.8 L Eos % (Auto) 0.0 L Baso % (Auto) 0.2 Neut # (Auto) 87770 H Lymph # (Auto) 400 L Price # (Auto) 100 Eos # (Auto) 0 Baso # (Auto) 0 Sodium 138 Potassium 4.0 Chloride 103 Carbon Dioxide 26 BUN 13 Creatinine 0.70 Estimated GFR > 60.0 BUN/Creatinine Ratio 18.6 Glucose 139 H Lactate Calcium 7.8 L Magnesium 1.9 Total Bilirubin AST ALT Alkaline Phosphatase Total Protein Albumin Globulin Albumin/Globulin Ratio Lipase Nasal Screen MRSA (PCR) Negative for mrsa Assessment & Plan Assessment & Plan narrative: 58-year-old woman postop day number 0 s/p diagnostic laperoscopy and ALESSANDRO for SBO with concern for closed loop. Hx of total laryngectomy and COPD Over all doing well on multimodal pain control satting well on minimal o2 - keep humidified trach colar NGT in place until bowel function returns Perrin in place today will remove tomorrow Likely remove abdominal drain tomorrow as well on obesity dosing enoxaparin
--- NOTE | 2018-10-27 18:47 | P.PN_ITS ---
Subjective Date Patient Seen: 10/27/18 Time Patient Seen: 18:44 Interval history: pain much improved after surgery NO flatus or BM yet over all feeling well oxygenating on RA much of day now on O2 to assist with humidifying air Exam Vital Signs (past 8 hours): - 10/27/18 12:45 10/27/18 15:41 10/27/18 15:44 Temperature 98.4 F 98.9 F Pulse Rate 68 75 Respiratory Rate 15 13 Blood Pressure 138/70 136/79 Pulse Oximetry 95 96 94 Fraction of Inspired Oxygen 40 Oxygen Delivery Method Humidification,Trach Collar,Blow By Oxygen Flow Rate 10 Narrative Exam Narrative: Well-appearing breathing without difficulty Regular rate and rhythm Abdomen soft and minimally distended, minimally tender Wounds clean dry and intact Fully in place draining clear yellow urine Objective Labs Result Diagrams: 10/27/18 04:40 10/27/18 04:40 Labs: Laboratory Results - last 24 hr 10/26/18 10/26/18 10/26/18 18:52 18:52 19:09 WBC 11.5 H RBC 4.65 Hgb 14.3 Hct 42.5 MCV 91.4 MCH 30.7 MCHC 33.6 RDW 14.2 Plt Count 314 Neut % (Auto) 79.0 H Lymph % (Auto) 8.9 L [place] % (Auto) 7.6 Eos % (Auto) 4.0 Baso % (Auto) 0.5 Neut # (Auto) 9000 H Lymph # (Auto) 1000 L [place] # (Auto) 900 Eos # (Auto) 500 H Baso # (Auto) 100 Sodium 141 Potassium 4.2 Chloride 104 Carbon Dioxide 26 BUN 13 Creatinine 0.70 Estimated GFR > 60.0 BUN/Creatinine Ratio 18.6 Glucose 88 Lactate 0.8 Calcium 8.6 Magnesium Total Bilirubin 0.3 AST 23 ALT 13 Alkaline Phosphatase 92 Total Protein 7.2 Albumin 4.2 Globulin 3.0 Albumin/Globulin Ratio 1.4 Lipase 223 Nasal Screen MRSA (PCR) 10/27/18 10/27/18 10/27/18 02:50 04:40 04:40 WBC 13.9 H RBC 4.16 Hgb 12.5 Hct 37.6 MCV 90.4 MCH 29.9 MCHC 33.1 RDW 14.1 Plt Count 272 Neut % (Auto) 96.3 H Lymph % (Auto) 2.7 L [place] % (Auto) 0.8 L Eos % (Auto) 0.0 L Baso % (Auto) 0.2 Neut # (Auto) 09124 H Lymph # (Auto) 400 L [place] # (Auto) 100 Eos # (Auto) 0 Baso # (Auto) 0 Sodium 138 Potassium 4.0 Chloride 103 Carbon Dioxide 26 BUN 13 Creatinine 0.70 Estimated GFR > 60.0 BUN/Creatinine Ratio 18.6 Glucose 139 H Lactate Calcium 7.8 L Magnesium 1.9 Total Bilirubin AST ALT Alkaline Phosphatase Total Protein Albumin Globulin Albumin/Globulin Ratio Lipase Nasal Screen MRSA (PCR) Negative for mrsa Assessment & Plan Assessment & Plan narrative: 58-year-old woman postop day number 0 s/p diagnostic laperoscopy and ALESSANDRO for SBO with concern for closed loop. Hx of total laryngectomy and COPD Over all doing well on multimodal pain control satting well on minimal o2 - keep humidified trach colar NGT in place until bowel function returns Perrin in place today will remove tomorrow Likely remove abdominal drain tomorrow as well on obesity dosing enoxaparin
[2018-10-27] MEDS: AMITRIPTYLINE 25 MG TABLET PO (20:20)
[2018-10-27] MEDS: ENOXAPARIN 40 MG/0.4 ML SYRINGE SUBCUT (20:20)
[2018-10-28] VITALS (11 sets, daily range): BP systolic 129–160; BP diastolic 63–84; PULSE 64–81; RESP 12–20; TEMP 35.9–37.1; O2SAT 90–96
[2018-10-28] MEDS: ONDANSETRON 4 MG/2 ML INJ IV ×6 (01:13→20:16)
[2018-10-28] MEDS: ACETAMINOPHEN SUSP 650 MG/20.3 ML UDC TUBE ×3 (01:13→12:48)
[2018-10-28] MEDS: HYDROMORPHONE 0.5 MG INJ IV ×2 (01:14→09:40)
[2018-10-28] MEDS: LACTATED RINGERS 1,000 ML 84 ML IV (05:13)
[2018-10-28 05:29] LABS: Add Manual Diff / Slide Review NO; Basophils Absolute Auto 0 /uL (0-100); Basophils Percent Auto 0.4 % (0-2); Eosinophils Absolute Auto 0 /uL (0-450); Eosinophils Percent Auto 0.1 % (2-4); Hematocrit 33.9 % (36-46); Hemoglobin 11.6 g/dL (12.0-16.0); Lymphocytes Absolute Auto 600 /uL (1100-4500); Lymphocytes Percent Auto 5.1 % (25-40); Mean Corpuscular HGB Conc 34.4 % (30-36); Mean Corpuscular Hemoglobin 30.9 PG (26-34); Mean Corpuscular Volume 89.9 fL (80-100); Monocytes Absolute Auto 800 /uL (0-900); Monocytes Percent Auto 6.7 % (3-14); Neutrophils Absolute Auto 10400 /uL (1500-7000); Neutrophils Percent Auto 87.7 % (50-75); Platelet Count 249 X10^3/uL (150-400); Red Blood Cell Count 3.77 X10^6/uL (4.0-5.2); Red Cell Distribution Width 14.2 % (11.6-14.8); White Blood Cell Count 11.9 X10^3/uL (4.5-11.0)
[2018-10-28 05:36] LABS: Blood Urea Nitrogen 15 mg/dL (7-17); Calcium 7.9 mg/dL (8.4-10.2); Carbon Dioxide 30 mmol/L (22-32); Chloride 102 mmol/L (98-107); Estimated Glomerular Filt Rate > 60.0 mL/min (>60); Glucose 110 mg/dL (70-100); HEMOLYSIS < 15 (0-50); Magnesium 2.5 mg/dL (1.6-2.3); Sodium 138 mmol/L (137-145)
[2018-10-28] MEDS: LEVOTHYROXINE 88 MCG TABLET PO (06:26)
--- NOTE | 2018-10-28 06:42 | PC.NURSE ---
Patient was more calm and cooperative overnight, able to rest, Tylenol elixer Q6h via NGT and IV Dilaudid prn is controlling abdominal pain. 10ml serous-sang drainage from Ariel drain. Bowel sounds and flatus absent, denies nausea, IV Zofran given Q4h as scheduled. VSS, SR, SpO2 90-94%.
[2018-10-28] MEDS: ENOXAPARIN 40 MG/0.4 ML SYRINGE SUBCUT ×2 (09:40→20:17)
[2018-10-28] MEDS: POLYETHYLENE GLYCOL 3350 17 GM POWD.PACK PO (09:40)
[2018-10-28] MEDS: predniSONE 20 MG TABLET 10 MG PO ×2 (09:40→20:16)
[2018-10-28] MEDS: PANTOPRAZOLE 40 MG VIAL IV (09:40)
--- NOTE | 2018-10-28 12:08 | CM.DPC ---
DCP Cont: Faxed H&P to [facility], Attn: Elise Cruz at fax # [phone], at LACQUER MIXER's request. Fax confirmation scanned in. Alyssia Schafer, [facility] Cartography Technician
--- NOTE | 2018-10-28 12:24 | PT.IPTN ---
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], with partial obstruction (10/26/18) Surgery Performed Operation Date: 10/26/18 21:05 Actual Procedures p diagnostic laparoscopy, lysis of adhesions, primary repair of umbilical hernia - Cesar Francis MD Physical Therapy Treatment Note M2 PT-IP Current Condition Start: 10/27/18 09:03 Freq: NEEDED Status: Active Protocol: Document 10/27/18 12:24 AW (Rec: 10/27/18 12:52 AW [id number]) Physical Therapy Current Condition Current Condition Evaluation Date 10/27/18 Treatment Diagnosis SBO s/p abd surgery; impaired bed mobillity, transfers, gait Precautions Abdominal Surgery Precautions Log Roll Lifting Restrictions Gait Belt above Incisional Area M3 PT-IP Subjective Start: 10/27/18 09:03 Freq: NEEDED Status: Active Protocol: Document 10/28/18 11:59 AW (Rec: 10/28/18 12:22 AW [id number]) Subjective Physical Therapy Visit Type Type Treatment Note Visit Start Time 11:28 Visit Stop Time 11:53 Total Visit Minutes 25 Number of RAVELER Visits 0 Physical Therapy Visit Comments Patient Comments Pt found resting in bed, but eager to try walking today. Therapy Pain Assessment Pain When Pain Assessed During Mobility Pain Present Pain Present Pain Reported Location Abdomen Intensity 6 Scale Used Numeric (1 - 10) Description Aching Burning Pain Behaviors Wincing Pain Management Techniques Apply Cold M4 PT-IP Mobility and Gait Start: 10/27/18 09:03 Freq: NEEDED Status: Active Protocol: Document 10/28/18 11:59 AW (Rec: 10/28/18 12:22 AW [id number]) PT-Bed Mobility Assessment Rolling Type of Rolling Log Rolling Level of Assist Standby Assistance Supine to Sit Supine to Sit Minimal Assistance Scooting Scooting to Edge of Bed Standby Assistance PT-Transfer Assessment Sit to and From Stand Sit to and from Stand Minimal Assistance Equipment Transfer Assistive Device Gait Belt Front Wheeled Walker Orthotic/Prosthetic Devices or Brace: No Transfers Transfer Destination Chair Transfer Technique Stand Step Pivot Transfer Ability Level of Assist Contact Guard Assistance Comments Mobility Comments Pt requiring less assist for sit to stand and stand step pivot transfers. Pain is the limiting factor Gait Assessment Gait Gait Assistance Required: Standby Assistance Contact Guard Assist Distance (Feet) 70 Assistive Devices Assistive Device Gait Belt Front Wheeled Walker Gait Deviations General Gait Pattern Decreased Stride Length Decreased Feet Clearance Step-to Gait Factors Limiting Gait Function Factors Limiting Gait Function Decreased Strength Pain Comments Gait Comments Pt set an ambulation goal for herself and met it, requiring SBA to CGA with increased distance. She was able to correct her step-to pattern and increase her step length with minimal verbal cues. PT-Balance Assessment Sitting Balance and Reactions Static Sitting Balance Ability Good Dynamic Sitting Balance Ability Good Standing Balance and Reactions Static Standing Balance Ability Fair Dynamic Standing Balance Ability Fair M5 PT-IP Objective Assessments Start: 10/27/18 09:03 Freq: NEEDED Status: Active Protocol: Document 10/27/18 12:24 AW (Rec: 10/27/18 12:52 AW [id number]) Orientation Orientation/Cognition Level of Alertness Alert Orientation Name Month Place Situation Safety Awareness Understands Safety Issues Memory Description No Deficits Noted Comments Pt has a trach and communicates by writing. Gross Range of Motion Upper Extremity ROM Assessment Bilaterally Impaired Impairments Impaired due to abdominal pain Lower Extremity ROM Assessment Within Functional Limits Strength Upper Extremity Strength Assessment Within Functional Limits Lower Extremity Strength Assessment Within Functional Limits Comments Strength Comments Strength appears consistent with baseline Coordination Assessment Gross Coordination Gross Coordination WNL Sensation Assessment Sensation Gross Sensation WNL Light Touch Intact Muscle Tone Muscle Tone WNL Yes M6 PT-IP Treatment Start: 10/27/18 09:03 Freq: NEEDED Status: Active Protocol: Document 10/27/18 12:24 AW (Rec: 10/27/18 12:52 AW [id number]) Physical Therapy Treatment Education Education Provided Precautions Safety M7 PT-IP Assessment and Plan Start: 10/27/18 09:03 Freq: NEEDED Status: Active Protocol: Document 10/28/18 11:59 AW (Rec: 10/28/18 12:22 AW [id number]) PT Summary Assessment and Plan Potential Rehabilitation Potential Good Status of Condition at Evaluation Stable Summary Impairments Pain ROM Balance Bed Mobility Transfers Gait Activity Tolerance Assessment Summary Pt's mobility required decreased level of assist today (min A at most for sit to stand, CGA for all other transfers and gait). Gait initiated today with FWW and SBA increasing to CGA with increased distance. PT continues to recommend discharge to home with temporary increase in caregiver support and home health. Goals Bed Mobility Goal Standby Assistance Transfer Goal Standby Assistance Gait Goal Standby Assistance Gait Distance 150 feet Other Goals Pt will ascend/descend 3 stairs using R hand rail ( ascending) with CGA. Days to Meet Goals 3 Frequency of Treatment Frequency Of Treatment Once a Day Treatment Plan Physical Therapy Treatment Plan Bed Mobility Training Transfer Training Gait Training Therapeutic Exercise Balance Retraining Post Op Education Discharge Planning Hot or Cold Pack Neuromuscular Re-ed Coordination Retraining Manual Therapy Recommendations To Nursing Amount of Assist Needed 1 Person Assist Discharge Recommendations PT Discharge Recommendations Home with Assistance Home Health
[2018-10-28] MEDS: LORATADINE 10 MG TABLET PO (12:49)
[2018-10-28] MEDS: CITALOPRAM 20 MG TABLET 40 MG PO (12:49)
--- NOTE | 2018-10-28 13:46 | P.PN_ITS ---
Subjective Date Patient Seen: 10/28/18 Time Patient Seen: 13:45 Interval history: Abdominal pain continues to improve Overall feeling much No flatus or bowel movement yet Quite hungry No nausea NG tube output 70 and last 6 hours -clear appears to be gastric contents Mobilizing with PT Exam Vital Signs (past 8 hours): - 10/28/18 09:36 10/28/18 09:51 10/28/18 12:00 Temperature 98.8 F 98.4 F Pulse Rate 71 81 Respiratory Rate 16 Blood Pressure 160/80 H 147/84 H Pulse Oximetry 95 96 94 Fraction of Inspired Oxygen 28 Oxygen Delivery Method Aerosol Mask Oxygen Flow Rate 10 Narrative Exam Narrative: Well-appearing in no acute distress Breathing comfortably on trach mask humidified Regular rate and rhythm Abdomen soft minimally tender wounds clean dry and intact Drain with minimal serosanguineous out Hardin catheter in place draining clear yellow urine Objective Labs Result Diagrams: 10/28/18 04:55 10/28/18 04:55 Labs: Laboratory Results - last 24 hr 10/28/18 10/28/18 04:55 04:55 WBC 11.9 H RBC 3.77 L Hgb 11.6 L Hct 33.9 L MCV 89.9 MCH 30.9 MCHC 34.4 RDW 14.2 Plt Count 249 Neut % (Auto) 87.7 H Lymph % (Auto) 5.1 L [place] % (Auto) 6.7 Eos % (Auto) 0.1 L Baso % (Auto) 0.4 Neut # (Auto) 26658 H Lymph # (Auto) 600 L [place] # (Auto) 800 Eos # (Auto) 0 Baso # (Auto) 0 Sodium 138 Potassium 4.0 Chloride 102 Carbon Dioxide 30 BUN 15 Creatinine 0.60 Estimated GFR > 60.0 BUN/Creatinine Ratio 25.0 H Glucose 110 H Calcium 7.9 L Magnesium 2.5 H Assessment & Plan Assessment & Plan narrative: 58F POD1 s/p diagnostic laperoscopy and ALESSANDRO for SBO with concern for closed loop. Hx of total laryngectomy and COPD Over all doing well making steady improvement, awaiting return of bowel function on multimodal pain control satting well on minimal o2 - keep humidified trach colar NGT removed - converted meds to PO OK for clear liquids, stop if develops nausea Remove hardin Will keep abdominal drain until retains bowel function D/c tele and cont O2 monitoring on obesity dosing enoxaparin
[2018-10-28] MEDS: HYDROMORPHONE 2 MG TABLET PO ×2 (14:19→18:14)
--- NOTE | 2018-10-28 14:37 | PC.NURSE ---
removed ngt and orders received to remove hardin cath as well as tele and advance diet to clear liquids- pt spent 3 hours up in chair before tiring out and requesting to go back to bed-hardin cath will be removed at this time
[2018-10-28] MEDS: ALBUTEROL/IPRATROPIUM 3 ML AMPUL INH ×2 (15:11→17:26)
--- NOTE | 2018-10-28 15:46 | CM.DPNOTE ---
Addendum entered by JIL Ferguson 10/28/18 16:50: In addition: Pt writes she gets a visit from assistant case manager Duy once per month, this WEB SYSTEMS DEVELOPER asks for counseling and support? Pt nods yes. Original Note: DCP Cont: Requested that [facility] Alyssia fax H+P to JUAN Cruz. Placed call to Kimmy Cruz P# [phone], attempted x3 today, playing phone tag and unable to reach her today. Kimmy left this WEB SYSTEMS DEVELOPER msg asking what the DC needs were of pt? Met w/pt this afternoon, pt familiar to this WEB SYSTEMS DEVELOPER from previous admissions. Pt writes to communicate. Pt writes to this WEB SYSTEMS DEVELOPER she will be going home upon DC. This WEB SYSTEMS DEVELOPER asks about [facility] cg and possibility of adding Home Health? 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 Pt agreeable to HH RN/PT/OT/CASHIER SUPERVISOR and has no agency preference. P: DC home w/SO and [facility] cg upon DC. Still need F2F signed by surgeon, HH referral made and [facility] CM notified- Pt may qualify for additional cg hours upon reassessment of her functional needs once home. JIL Ferguson
[2018-10-28] MEDS: ACETAMINOPHEN SUSP 650 MG/20.3 ML UDC PO (17:05)
[2018-10-28] MEDS: LACTATED RINGERS 1,000 ML 50 ML IV (18:33)
[2018-10-28] MEDS: AMITRIPTYLINE 25 MG TABLET PO (20:16)
[2018-10-29] VITALS (16 sets, daily range): BP systolic 129–161; BP diastolic 62–91; PULSE 56–75; RESP 14–20; TEMP 36.4–37.1; O2SAT 88–98
[2018-10-29] MEDS: ACETAMINOPHEN SUSP 650 MG/20.3 ML UDC PO ×4 (00:25→19:15)
[2018-10-29] MEDS: HYDROMORPHONE 2 MG TABLET PO ×5 (00:25→21:05)
[2018-10-29] MEDS: ONDANSETRON 4 MG/2 ML INJ IV ×4 (01:38→14:12)
[2018-10-29] MEDS: ALBUTEROL/IPRATROPIUM 3 ML AMPUL INH ×5 (03:25→23:35)
[2018-10-29] MEDS: PANTOPRAZOLE 40 MG TABLET PO (06:10)
[2018-10-29] MEDS: LEVOTHYROXINE 88 MCG TABLET PO (08:11)
[2018-10-29] MEDS: LORATADINE 10 MG TABLET PO (08:11)
[2018-10-29] MEDS: CITALOPRAM 20 MG TABLET 40 MG PO (08:11)
[2018-10-29] MEDS: POLYETHYLENE GLYCOL 3350 17 GM POWD.PACK PO ×2 (08:38→21:05)
[2018-10-29] MEDS: ENOXAPARIN 40 MG/0.4 ML SYRINGE SUBCUT ×2 (08:38→21:06)
[2018-10-29] MEDS: predniSONE 20 MG TABLET 10 MG PO ×2 (08:39→21:04)
--- NOTE | 2018-10-29 10:19 | PT.IPTN ---
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], with partial obstruction (10/26/18) Surgery Performed Operation Date: 10/26/18 21:05 Actual Procedures p diagnostic laparoscopy, lysis of adhesions, primary repair of umbilical hernia - Cesar Francis MD Physical Therapy Treatment Note M2 PT-IP Current Condition Start: 10/27/18 09:03 Freq: NEEDED Status: Active Protocol: Document 10/27/18 12:24 AW (Rec: 10/27/18 12:52 AW [id number]) Physical Therapy Current Condition Current Condition Evaluation Date 10/27/18 Treatment Diagnosis SBO s/p abd surgery; impaired bed mobillity, transfers, gait Precautions Abdominal Surgery Precautions Log Roll Lifting Restrictions Gait Belt above Incisional Area M3 PT-IP Subjective Start: 10/27/18 09:03 Freq: NEEDED Status: Active Protocol: Document 10/29/18 09:15 GARCIA (Rec: 10/29/18 10:19 LJ [email or web address]) Subjective Physical Therapy Visit Type Type Treatment Note Visit Start Time 09:15 Visit Stop Time 09:55 Total Visit Minutes 40 Number of HEART NURSE Visits 1 Physical Therapy Visit Comments Patient Comments pt finishing breakfast in chair. C/o abdominal cramps. Nurse capped IV so pt could ambulate in stairway and hallway Therapy Pain Assessment Pain When Pain Assessed At Rest Pain Present Pain Present Pain Reported Location Abdomen Pain Management Techniques Apply Cold M4 PT-IP Mobility and Gait Start: 10/27/18 09:03 Freq: NEEDED Status: Active Protocol: Document 10/29/18 09:15 GARCIA (Rec: 10/29/18 10:19 LJ [email or web address]) PT-Transfer Assessment Sit to and From Stand Sit to and from Stand Standby Assistance Equipment Transfer Assistive Device Gait Belt Front Wheeled Walker Orthotic/Prosthetic Devices or Brace: No Transfers Transfer Destination Chair Transfer Technique Stand Step Pivot Transfer Ability Level of Assist Standby Assistance Comments Mobility Comments Pt c/o pain in resting which lessened when she stood up. She is careful with transfers and performed last transfer w/ o AD. Gait Assessment Gait Gait Assistance Required: Standby Assistance Contact Guard Assist Distance (Feet) 150 Assistive Devices Assistive Device Gait Belt Front Wheeled Walker Gait Deviations General Gait Pattern Decreased Stride Length Decreased Feet Clearance Comments Gait Comments Pt in wheel chair to stairs outside ER. Performed stair climbing and ambulated back to ICU entrance with SBA. Stair Climbing Assessment Evaluation Level of Assist On Stairs Standby Assistance Devices Stair Climbing Assistive Devices Left Railing Right Railing Technique/Endurance Stair Climbing Direction Ascend and Descend Stair Climbing Technique Step to Step Number of Steps Climbed 6 Stair Climbing Set # Repetitions (reps) 2 Comments Stair Climbing Comments Pt careful and steady on stairs using step to gait and both railings. Ambulated at bottom of stairs to WC 10 feet from stairs. M5 PT-IP Objective Assessments Start: 10/27/18 09:03 Freq: NEEDED Status: Active Protocol: Document 10/27/18 12:24 AW (Rec: 10/27/18 12:52 AW [id number]) Orientation Orientation/Cognition Level of Alertness Alert Orientation Name Month Place Situation Safety Awareness Understands Safety Issues Memory Description No Deficits Noted Comments Pt has a trach and communicates by writing. Gross Range of Motion Upper Extremity ROM Assessment Bilaterally Impaired Impairments Impaired due to abdominal pain Lower Extremity ROM Assessment Within Functional Limits Strength Upper Extremity Strength Assessment Within Functional Limits Lower Extremity Strength Assessment Within Functional Limits Comments Strength Comments Strength appears consistent with baseline Coordination Assessment Gross Coordination Gross Coordination WNL Sensation Assessment Sensation Gross Sensation WNL Light Touch Intact Muscle Tone Muscle Tone WNL Yes M6 PT-IP Treatment Start: 10/27/18 09:03 Freq: NEEDED Status: Active Protocol: Document 10/27/18 12:24 AW (Rec: 10/27/18 12:52 AW [id number]) Physical Therapy Treatment Education Education Provided Precautions Safety M7 PT-IP Assessment and Plan Start: 10/27/18 09:03 Freq: NEEDED Status: Active Protocol: Document 10/29/18 09:15 LJ (Rec: 10/29/18 10:19 LJ [email or web address]) PT Summary Assessment and Plan Potential Rehabilitation Potential Good Status of Condition at Evaluation Stable Summary Impairments Pain ROM Balance Bed Mobility Transfers Gait Activity Tolerance Assessment Summary Pt progressing with independence in aambulation and transfers. Able to safely ambulate and transfer without AD for several feet. Attempt walking w/o AD to return to prior level of function. Goals Bed Mobility Goal Standby Assistance Transfer Goal Standby Assistance Gait Goal Standby Assistance Gait Distance 150 feet Other Goals Pt will ascend/descend 3 stairs using R hand rail ( ascending) with CGA. Days to Meet Goals 3 Frequency of Treatment Frequency Of Treatment Once a Day Treatment Plan Physical Therapy Treatment Plan Bed Mobility Training Transfer Training Gait Training Therapeutic Exercise Balance Retraining Post Op Education Discharge Planning Hot or Cold Pack Neuromuscular Re-ed Coordination Retraining Manual Therapy Recommendations To Nursing Amount of Assist Needed Standby Assistance Discharge Recommendations PT Discharge Recommendations Home with Assistance Home Health
--- NOTE | 2018-10-29 14:47 | RT ---
Patient refused breathing treatment due to area around tracheostomy being very sore. Patientnoted to be crying and writhing in pain. Wrote a note to this RT about a special ointment for the sores that Dr. Cornell had prescribed. Passed this info along to RN Sangeetha who says she will call his office and see about getting it here for her. Passed that message back to patient Nai and expressed understanding towards her pain and provided verbal comfort.
--- NOTE | 2018-10-29 14:56 | PC.NURSE ---
PT INTERMITTENTLY ANXIOUS THIS SHIFT WITH FREQUENT TEARFUL EPISODES AND CALLING TO NURSES- SHE IS VOIDING WELL PALE CLEAR UOP PER BSC- HAD LARGE BM AND IS TAKING GENERAL DIET NOW- DENIES NAUSEA - CONTINUES WITH SCHEDULED ACETAMINOPHEN WELL INTERMITTENT PO DILAUDID FOR PAIN- MOST DISCOMFORT IS CAUSED BY OPEN WOUNDS SURROUNDING HER TRACHEOSTOMY WHICH SHE PICKS AT FREQUENTLY- CALL TO MD TO RECEIVE ORDER FOR MUPRICIN AWAITNG TO RECIEVE FROM PHARMACY
[2018-10-29] MEDS: LACTATED RINGERS 1,000 ML 25 ML IV (15:10)
[2018-10-29] MEDS: MUPIROCIN 22 GM OINT 1 APPLIC TOP ×2 (16:23→21:06)
--- NOTE | 2018-10-29 18:26 | PM.PN.1 ---
Subjective Date Patient Seen: 10/29/18 Time Patient Seen: 18:26 Interval history: Has had flatus and bowel movement Quite hungry Tolerating liquids easily Overall feels good Exam Vital Signs (past 8 hours): - 10/29/18 10:31 10/29/18 12:24 10/29/18 15:45 Temperature 98.7 F Pulse Rate 73 64 Respiratory Rate 16 16 Blood Pressure 149/85 H Pulse Oximetry 98 91 88 L 10/29/18 16:00 Temperature 98.0 F Pulse Rate 64 Respiratory Rate 16 Blood Pressure 154/87 H Pulse Oximetry 91 Fraction of Inspired Oxygen 28 Oxygen Delivery Method Trach Collar Oxygen Flow Rate 0 Narrative Exam Narrative: Well-appearing no acute distress Breathing comfortably on humidified trach collar Regular rate and rhythm Abdomen soft minimally tender, wounds dry and intact Serous drainage from surgical drain minimal amount Periphery warm well perfused Objective Labs Result Diagrams: 10/28/18 04:55 10/28/18 04:55 Assessment & Plan Assessment & Plan narrative: 58F POD2 s/p diagnostic laperoscopy and ALESSANDRO for SBO with concern for closed loop. Hx of total laryngectomy and COPD Doing well, has regained bowel function Okay for easily swallowable foods on multimodal pain control satting well on minimal o2 - keep humidified trach colar Will remove surgical drain Medically ready for discharge -PT recommending home health -working on setting this up prior to discharge on obesity dosing enoxaparin
--- NOTE | 2018-10-29 19:08 | RT ---
Patient able to cough up own secretions as she has an extremely good cough. Did obtain some yellow white secretions through the sterile catheter as she coughed. Also noticed some bloody streaks. Patient has been taking her trach in and out all day. It is also noted to be cracked and frayed on the distal end. Patient only wants to use this trach and wants to perform own trach care, which is often not done in a sterile way. Noted are sores to either side of her trach which patient earlier was scrubbing vigourously with a washcloth which caused them to bleed. Patient has since complained of pain to this area. Wound care did stop by earlier to take a look and apparently patient says she has a prescription from Dr. Cornell for a medicated ointment for these sores. Communicated this earlier to ALEXIS Vivas who was calling Dr. Cornell to see if we could get that here.
[2018-10-29] MEDS: AMITRIPTYLINE 25 MG TABLET PO (21:04)
--- NOTE | 2018-10-29 22:38 | PC.NURSE ---
rosanne note pt up to chair for dinner, using BSC. Pt tolerating general diet well. + flatus. Pt did c/o cramping in abd at bedtime; po dilaudid given. Pt up to BSC for lots of flatus. pt does own wound care to neck. Ariel drain removed this evening by DR. Rodriguez. Abd lap sites CDI.
[2018-10-30] VITALS (7 sets, daily range): BP systolic 137–147; BP diastolic 81–84; PULSE 58–72; RESP 17–18; TEMP 36.8–37.3; O2SAT 93–98
[2018-10-30] MEDS: ACETAMINOPHEN SUSP 650 MG/20.3 ML UDC PO ×2 (00:58→06:21)
[2018-10-30] MEDS: HYDROMORPHONE 2 MG TABLET PO ×2 (00:59→09:21)
[2018-10-30] MEDS: ALBUTEROL/IPRATROPIUM 3 ML AMPUL INH ×2 (02:40→07:33)
[2018-10-30] MEDS: LEVOTHYROXINE 88 MCG TABLET PO (06:21)
[2018-10-30] MEDS: PANTOPRAZOLE 40 MG TABLET PO (06:21)
--- NOTE | 2018-10-30 07:06 | PC.NURSE ---
States does not like Tylenol elixir, would prefer tablets.
[2018-10-30] MEDS: predniSONE 20 MG TABLET 10 MG PO (09:19)
[2018-10-30] MEDS: POLYETHYLENE GLYCOL 3350 17 GM POWD.PACK PO (09:19)
[2018-10-30] MEDS: ENOXAPARIN 40 MG/0.4 ML SYRINGE SUBCUT (09:19)
[2018-10-30] MEDS: CITALOPRAM 20 MG TABLET 40 MG PO (09:20)
[2018-10-30] MEDS: MUPIROCIN 22 GM OINT 1 APPLIC TOP (09:20)
[2018-10-30] MEDS: LORATADINE 10 MG TABLET PO (09:20)
--- NOTE | 2018-10-30 10:32 | CM.DPC ---
DCP/continued: Reviewed chart. Per notes, patient is medically stable to discharge home with HH. Obtained orders which include F2F. Met with explained CM/SW role. Patient aware and agreeable to discharge. Patient nods her head in agreement and confirms address. Asked RUBBER AND PLASTICS WORKER/Alyssia to assist in coordinating Home Home Health? Patient has no preference in agencies. YULIA/Alyssia called both [facility] both report that they cannot accept this patient because of insurance. [facility] closed over the weekend. Spoke with CHARITY/Olya re: HH need. She reports that she will see patient this AM and if she feels that patient capable/safe doing outpatient therapy she will recommend this instead. Spoke with RN/Sangeetha and she is in complete agreement that patient has capability to follow up as outpatient. P: Pending. Hopeful for patient to discharge today with outpatient therapy. MD to be notified. JIL Reyes
--- NOTE | 2018-10-30 10:55 | PT.IPTN ---
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], with partial obstruction (10/26/18) Surgery Performed Operation Date: 10/26/18 21:05 Actual Procedures p diagnostic laparoscopy, lysis of adhesions, primary repair of umbilical hernia - Cesar Francis MD Physical Therapy Treatment Note M2 PT-IP Current Condition Start: 10/27/18 09:03 Freq: NEEDED Status: Active Protocol: Document 10/27/18 12:24 AW (Rec: 10/27/18 12:52 AW [id number]) Physical Therapy Current Condition Current Condition Evaluation Date 10/27/18 Treatment Diagnosis SBO s/p abd surgery; impaired bed mobillity, transfers, gait Precautions Abdominal Surgery Precautions Log Roll Lifting Restrictions Gait Belt above Incisional Area M3 PT-IP Subjective Start: 10/27/18 09:03 Freq: NEEDED Status: Active Protocol: Document 10/30/18 10:55 GGD (Rec: 10/30/18 11:55 GGD [id number]) Subjective Physical Therapy Visit Type Type Treatment Note Visit Start Time 10:39 Visit Stop Time 10:55 Total Visit Minutes 16 Number of INSTRUMENT PERSON Visits 2 Physical Therapy Visit Comments Patient Comments Pt states she want's to go home and doesn't need HH. M4 PT-IP Mobility and Gait Start: 10/27/18 09:03 Freq: NEEDED Status: Active Protocol: Document 10/30/18 10:55 GGD (Rec: 10/30/18 11:55 GGD [id number]) PT-Transfer Assessment Sit to and From Stand Sit to and from Stand Standby Assistance Equipment Transfer Assistive Device None Gait Belt Orthotic/Prosthetic Devices or Brace: No Transfers Transfer Destination Chair Transfer Ability Level of Assist Standby Assistance Use of Upper Extremities Gait Assessment Gait Gait Assistance Required: Standby Assistance Contact Guard Assist Distance (Feet) 160 Assistive Devices Assistive Device None Gait Belt Gait Deviations General Gait Pattern Decreased Stride Length Decreased Feet Clearance Wide Based Gait Factors Limiting Gait Function Factors Limiting Gait Function Decreased Strength Pain M5 PT-IP Objective Assessments Start: 10/27/18 09:03 Freq: NEEDED Status: Active Protocol: Document 10/27/18 12:24 AW (Rec: 10/27/18 12:52 AW [id number]) Orientation Orientation/Cognition Level of Alertness Alert Orientation Name Month Place Situation Safety Awareness Understands Safety Issues Memory Description No Deficits Noted Comments Pt has a trach and communicates by writing. Gross Range of Motion Upper Extremity ROM Assessment Bilaterally Impaired Impairments Impaired due to abdominal pain Lower Extremity ROM Assessment Within Functional Limits Strength Upper Extremity Strength Assessment Within Functional Limits Lower Extremity Strength Assessment Within Functional Limits Comments Strength Comments Strength appears consistent with baseline Coordination Assessment Gross Coordination Gross Coordination WNL Sensation Assessment Sensation Gross Sensation WNL Light Touch Intact Muscle Tone Muscle Tone WNL Yes M6 PT-IP Treatment Start: 10/27/18 09:03 Freq: NEEDED Status: Active Protocol: Document 10/27/18 12:24 AW (Rec: 10/27/18 12:52 AW [id number]) Physical Therapy Treatment Education Education Provided Precautions Safety M7 PT-IP Assessment and Plan Start: 10/27/18 09:03 Freq: NEEDED Status: Active Protocol: Document 10/30/18 10:55 GGD (Rec: 10/30/18 11:55 GGD [id number]) PT Summary Assessment and Plan Summary Assessment Summary Pt progressing with mobility. She had increase in gait tolerance with decrease in AD. She did have a slow wide base of support gait without AD, but no LOB. She is safe for D/ C home when medically stable. Frequency of Treatment Frequency Of Treatment Once a Day Treatment Plan Physical Therapy Treatment Plan Bed Mobility Training Transfer Training Gait Training Therapeutic Exercise Balance Retraining Post Op Education Discharge Planning Hot or Cold Pack Neuromuscular Re-ed Coordination Retraining Manual Therapy Recommendations To Nursing Amount of Assist Needed Standby Assistance Discharge Recommendations PT Discharge Recommendations Home with Assistance Home Health
--- NOTE | 2018-10-30 11:38 | P.DS_ITS ---
History of Present Illness Date Patient Seen: 10/30/18 Time Patient Seen: 11:35 Chief complaint: Abdominal pain Narrative: 58-year-old white female who has been hospitalized here for the past 5 days is 4 days postop laparoscopic enterolysis for a mechanical small bowel obstruction. She is now tolerating a solid diet passing flatus and having bowel movements. She is now ready for discharge as she has reached her baseline. Discharge Providers Date of admission: 10/26/18 21:18 Discharge Date: 10/30/18 Primary care physician: Eusebio Hammer MD Consults: 10/27/18 03:00 Consult to Physical Therapy Evaluate & Treat Comment: Physician Instructions: Evaluate and Treat 10/29/18 17:03 Consult to Respiratory Therapy Evaluate & Treat Comment: Physician Instructions: Evaluate and treat 10/30/18 09:56 Consult to Home Health Routine Comment: DX: SBO Reason For Exam: Home Health for RN,PT,OT,[employer] Discharge provider: Art Thomas MD Summary Discharge Diagnosis: Mechanical small-bowel obstruction secondary to adhesions Hospital Course: Patient was brought to the operating room shortly after a dmission and underwent a laparoscopic enterolysis for complete small-bowel obstruction. She gradually regained normal GI function. At this point she is eating a solid diet with no nausea no vomiting and no abdominal pain. She is passing flatus and having bowel movements. On examination her abdomen is soft and her trocar sites are all healing well without signs of infection. She had a drain removed yesterday. 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 She has had that for quite some time and is able to handle tracheostomy care at home. She is discharged today resuming all pre-admission medications. Was given a prescription for Percocet to take as needed for abdominal wall pain. Patient has taken Percocet in the past without allergic reaction. She will follow up in the surgery clinic in approximately 10 days. Status at Discharge Cognitive/behavioral status at discharge: oriented Functional status at discharge: independent ambulation Overall status at discharge: patient is back to baseline Time Spent with Patient Greater than 30 minutes Exam Vital Signs (past 8 hours): - 10/30/18 06:34 10/30/18 07:00 10/30/18 07:34 Temperature 98.9 F Pulse Rate 59 L 58 L Respiratory Rate 18 18 Blood Pressure 147/84 H Pulse Oximetry 95 95 93 10/30/18 08:33 Temperature 98.2 F Pulse Rate 72 Respiratory Rate 18 Blood Pressure 142/81 H Pulse Oximetry 94 Fraction of Inspired Oxygen 28 Oxygen Delivery Method Trach Collar Oxygen Flow Rate 9 Objective Labs Result Diagrams: 10/28/18 04:55 10/28/18 04:55 Discharge Plan Discharge Plan Patient Disposition: Home Discharge comment: follow up in surgery clinic 10 days Discharge Med Rec/Prescriptions Prescriptions: New oxycodone-acetaminophen 5-325 mg Tablet 1 tab PO Q4HR PRN (Reason: Pain, Moderate (4-6)) 5 Days RF: 0 Continued albuterol sulfate 2.5 MG/3 ML solution for nebulization 1 dose Inhalation QIDP PRN (Reason: Shortness Of Breath) Qty: 180 RF: 0 docusate sodium 100 MG capsule 100 mg PO BID Qty: 0 RF: 0 ferrous gluconate 324 MG tablet 324 mg PO DAILY Qty: 0 RF: 0 acetaminophen 325 MG tablet 325 mg PO Q6HP PRN (Reason: Pain, Mild) Qty: 0 RF: 0 amitriptyline 25 MG tablet 25 mg PO BEDTIME Qty: 0 RF: 0 ascorbic acid (vitamin C) 500 MG tablet 500 mg PO DAILY Qty: 0 RF: 0 fexofenadine 180 MG tablet 180 mg PO DAILY Qty: 0 RF: 0 nystatin 100,000 UNIT/1 ML suspension 1 dose PO DIRECTED PRN (Reason: thrush) Qty: 0 RF: 0 sodium chloride 0.9 % 10 ML solution 1 vial QID PRN (Reason: irrigate tracheostomy) Qty: 0 RF: 0 citalopram 40 mg tablet 40 mg PO DAILY RF: 0 lisinopril 10 mg tablet 10 mg PO BID RF: 0 estradiol 1 mg tablet 1 mg PO DAILY RF: 0 omeprazole 40 mg capsule,delayed release(DR/EC) 40 mg PO DAILY RF: 0 tramadol 50 mg tablet 50 mg PO Q6H PRN (Reason: pain) Qty: 10 RF: 0 levofloxacin [Levaquin] 750 mg tablet 750 mg PO DAILY Qty: 6 RF: 0 levothyroxine 88 mcg tablet 88 mcg PO DAILY RF: 0 gentamicin 0.1 % ointment 1 applic topical DIRECTED RF: 0 Follow up/Referrals: Eusebio Hammer MD [Primary Care Provider] - Provider Discharge Instructions Diet: Diet as Tolerated Skin/Wound/Dressing Care Report to your healthcare provider any signs of infection, such as:: chills, fever, increased pain, unusual drainage and unusual redness Other wound treatment: bathe normally Discharge Data Primary Care Provider: Eusebio Hammer Attending Provider: Cesar Francis Admkvng Date/Time: 10/26/18 21:18
[2018-10-30] MEDS: OXYCODONE/ACETAMINOPHEN 5/325 TABLET 1 TAB PO (12:46)
--- NOTE | 2018-10-30 13:25 | PC.NURSE ---
pt discharged to home following working with PT and they recommending home with help - not requiring home health or follow up other than scheduling follow up appt at surgical office- reviewed all discharge plans withh shree vieira and luis carlos Larkin- DISCHARGED FROM HOSPITAL AT THIS TIME
== END 2018-10-30 12:50 | disposition home or self-care (01) | DRG 227 ==
LOC: ED 21:15 → AC 21:19 → ICU 21:29
PROVIDERS: Admitting Provider Surgery; Emergency Provider Emergency Medicine; PCP Internal Medicine; Visit Provider Surgery
PROC: (CPT 49320; principal; 2018-10-26 21:05)
DX: K56.51 Intestinal adhesions [bands], with partial obstruction (principal); K42.9 Umbilical hernia without obstruction or gangrene; J44.9 Chronic obstructive pulmonary disease, unspecified; E66.9 Obesity, unspecified; Z68.41 Body mass index [BMI] 40.0-44.9, adult; Z93.0 Tracheostomy status; Z85.21 Personal history of malignant neoplasm of larynx; Z87.891 Personal history of nicotine dependence
CPT/HCPCS: 36415; 36591; 74177; 80048; 80053; 83605; 83690; 83735; 85025; 87797; 94640; 94760; 94762; 94799; 96374; 96375; 97116; 97162; 97530; 99283; 99285; C9113; J0330; J1100; J1170; J1650; J1956; J2250; J2270; J2405; J2704; J7613; Q9967

== ENCOUNTER → 2018-11-10 16:12 | Outpatient (ROUT) | payer OTHER, MEDICAID, SELFPAY ==
[2018-10-27 03:00] VITALS: BMI 40.3
== END ==
PROVIDERS: PCP Internal Medicine; Visit Provider Internal Medicine
DX: L08.9 Local infection of the skin and subcutaneous tissue, unspecified (principal)
CPT/HCPCS: 87070; 87075; 87077; 87147; 87186; 87205

== ENCOUNTER → 2019-01-12 18:33 | Outpatient (ROUT) | payer OTHER, MEDICAID, SELFPAY ==
[2018-10-27 03:00] VITALS: BMI 40.3
== END ==
PROVIDERS: PCP Internal Medicine; Visit Provider Internal Medicine
DX: L08.9 Local infection of the skin and subcutaneous tissue, unspecified (principal)
CPT/HCPCS: 87070; 87075; 87077; 87186; 87205

== ENCOUNTER 2019-02-06 18:56 | Emergency (ER) | payer OTHER, MEDICAID, SELFPAY ==
[2018-10-27 03:00] VITALS: BMI 40.3
[2019-02-06 19:05] VITALS: RESP 20; O2SAT 95
[2019-02-06 19:06] VITALS: BP 134/88; PULSE 105; RESP 16; TEMP 36.7; O2SAT 95; BMI 33.9
--- NOTE | 2019-02-06 19:10 | ED.SOB ---
HPI - SOB/Dyspnea General Chief Complaint: Shortness of Breath/Dyspnea Stated Complaint: Respiratory distress, blocked stoma Time Seen by Provider: 02/06/19 18:57 Source: EMS Mode of arrival: EMS Limitations: no limitations History of Present Illness HPI Narrative: 58-year-old female former smoker with history of COPD and a trach presents by EMS with a chief complaint of cough with productive sputum and difficulty in breathing. EMS tried to suction and got a fair amount of purulence sputum from her trach. She has had no fever chills and denies chest pain. She has had no nausea or vomiting. She denies any significant weakness. She denies any change in diet or medications. She has had runny nose and sneezing over the past few days. MD Complaint: shortness of breath Related Data Home Medications Medication Instructions Recorded Confirmed albuterol sulfate 1 dose INHALATION QIDP PRN #180 01/25/16 11/25/18 docusate sodium 100 mg PO BID #0 01/25/16 11/25/18 ferrous gluconate 324 mg PO DAILY #0 08/28/16 11/25/18 acetaminophen 325 mg PO Q6HP PRN #0 10/29/16 11/25/18 amitriptyline 25 mg PO BEDTIME #0 01/22/17 11/25/18 ascorbic acid (vitamin C) 500 mg PO DAILY #0 06/10/17 11/25/18 fexofenadine 180 mg PO DAILY #0 06/10/17 11/25/18 nystatin 1 dose PO DIRECTED PRN #0 06/10/17 11/25/18 sodium chloride 0.9 % 1 vial QID PRN #0 06/10/17 11/25/18 citalopram 40 mg PO DAILY 09/21/17 11/25/18 lisinopril 10 mg PO BID 09/21/17 11/25/18 levothyroxine 88 mcg PO DAILY 01/04/18 11/25/18 estradiol 1 mg PO DAILY 01/25/18 11/25/18 gentamicin 1 applic TOPICAL DIRECTED 05/24/18 11/25/18 omeprazole 40 mg PO DAILY 07/30/18 11/25/18 Previous Rx's Medication Instructions Recorded levofloxacin [Levaquin] 750 mg PO DAILY #6 tab 07/30/18 tramadol 50 mg PO Q6H PRN #10 tab 07/30/18 mupirocin 1 applictn TOP BID #15 gram 02/06/19 Allergies Allergy/AdvReac Type Severity Reaction Status Date / Time hydrocodone Allergy Intermediate RASH/HIVES Verified 11/25/18 11:06 Penicillins Allergy Intermediate RASH/HIVES Verified 11/25/18 11:06 metronidazole Allergy Mild RASH Verified 11/25/18 11:06 diphenhydramine Allergy Unknown Verified 11/25/18 11:06 [DIPHENHYDRAMINE] ibuprofen Allergy Unknown Verified 11/25/18 11:06 venom-wasp Allergy Verified 11/25/18 11:06 ranitidine AdvReac Intermediate SOB/DIZZY Verified 11/25/18 11:06 sulfamethoxazole AdvReac Mild GI UPSET Verified 11/25/18 11:06 [From Bactrim] trimethoprim [From Bactrim] AdvReac Mild GI UPSET Verified 11/25/18 11:06 fentanyl [FENTANYL] AdvReac Unknown vomiting Verified 11/25/18 11:06 ANTACIDS AdvReac Unknown Uncoded 11/25/18 11:06 Review of Systems Constitutional Constitutional: Denies chills, Denies fatigue, Denies fever(s), Denies frequent falls, Denies lethargy and Denies weakness Eyes Eyes: Denies change in vision, Denies eye discharge, Denies irritation and Denies loss of vision ENT Ears, Nose, Mouth, and Throat: Denies change in voice, Denies dizziness, Reports nasal congestion, Reports nasal discharge, Denies neck pain, Reports post nasal drip, Denies sore throat, Denies throat swelling and Reports other Cardiovascular Cardiovascular: Denies chest pain, Denies irregular heart rhythm, Denies lightheadedness, Denies palpitations, Denies dyspnea, Denies dyspnea on exertion and Denies orthopnea Respiratory Respiratory: Reports cough, Denies dyspnea, Denies dyspnea on exertion and Denies wheezing Gastrointestinal Gastrointestinal: Denies abdominal pain, Denies change in bowel habits, Denies diarrhea, Denies nausea and Denies vomiting Genitourinary Genitourinary: Denies hematuria, Denies flank pain, Denies urinary incontinence and Denies urinary urgency Musculoskeletal Musculoskeletal: Denies back pain, Denies muscle weakness, Denies neck pain, Denies numbness and Denies tingling Integumentary/Breasts Skin/Breast: Denies pruritus, Denies erythema, Denies rash and Denies wounds Neurologic Neurologic: Denies behavioral changes, Denies confusion, Denies dizziness, Denies frequent falls, Denies loss of vision, Denies numbness, Denies tingling and Denies weakness Psychiatric Psychiatric: Denies anxiety, Denies behavioral changes, Denies confusion, Denies depression, Denies homicidal ideation and Denies suicidal ideation Endocrine Endocrine: Denies fatigue, Denies flushing and Denies palpitations Hematologic/Lymphatic Hematologic/Lymphatic: Denies easy bruising Allergic/Immunologic Allergic/Immunologic: Denies urticaria, Denies throat swelling and Denies wheezing Patient History Medical History Chronic pain (Acute) Community acquired pneumonia (Resolved) Laryngeal cancer (Chronic) MRSA (methicillin resistant Staphylococcus aureus) (Acute) Otitis media, purulent, acute, with spontaneous rupture of TM (Resolved) Tracheobronchitis (Chronic) Tracheostomy complication (Acute) Surgical History History of hysterectomy (Acute) Hx of appendectomy (Acute) Social History household members: significant other Smoking Status: Former smoker alcohol intake: former alcohol intake frequency: 0-2 drinks per day Substance Use Type: does not use Exam Narrative Exam Narrative: GENERAL: [58] year old patient appears stated age. Chronically ill and in mild distress, coughing, anxious HEAD: Atraumatic. Normocephalic. EYES: Pupils equal round and reactive. Extraocular motions intact. No scleral icterus. No injection or drainage. ENT: Nose without bleeding, there is clear drainage bilaterally. Throat without erythema, tonsillar hypertrophy or exudate. Airway patent. Mild skin breakdown under straps and bandages. Will change dressing and include Rx for Mupirocin. NECK: Trachea midline. Non tender CARDIOVASCULAR: Regular rate and rhythm without murmurs, gallops, or rubs. RESPIRATORY: Clear to auscultation. Breath sounds equal bilaterally. No wheezes, rales, or rhonchi. GASTROINTESTINAL: Abdomen soft, non-tender, nondistended. EXTREMITIES: No edema or joint tenderness. BACK: Nontender without deformity or crepitance. No flank tenderness. NEURO: AOx3. SKIN: No rash or erythema of visible areas Initial Vital Signs Initial Vital Signs: Vital Signs Respiratory Rate 20 02/06/19 19:05 Pulse Oximetry 95 02/06/19 19:05 Course Orders Ordered: ED Orders 02/06/19 19:19 XR chest 1V Stat 02/06/19 19:30 Basic Metabolic Panel Stat Complete Blood Count AUTO DIFF Stat Influenza A & B (PCR) Stat Procalcitonin Stat Discontinued Medications Lorazepam (Ativan) 0.5 mg IV NOW ONE Stop: 02/06/19 19:55 Last Admin: 02/06/19 20:15 Dose: 0.5 mg Documented by: HILTON Vital Signs Vital signs: Vital Signs - 8 hr 02/06/19 19:05 02/06/19 19:06 02/06/19 19:22 Temperature 98.0 F Pulse Rate 105 H Respiratory Rate 20 16 Blood Pressure 134/88 Blood Pressure [Left Arm] Pulse Oximetry 95 95 95 02/06/19 20:30 02/06/19 21:04 Temperature Pulse Rate 65 68 Respiratory Rate 18 Blood Pressure Blood Pressure [Left Arm] 104/88 114/96 H Pulse Oximetry 96 96 MDM - SOB/Dyspnea Lab Data Result diagrams: 02/06/19 19:30 02/06/19 19:30 Labs: Lab Results 02/06/19 02/06/19 02/06/19 Range/Units 19:30 19:30 19:30 WBC 8.7 (4.5-11.0) X10^3/uL RBC 3.85 L (4.0-5.2) X10^6/uL Hgb 11.9 L (12.0-16.0) g/dL Hct 35.1 L (36-46) % MCV 91.1 (80-100) fL MCH 30.9 (26-34) PG MCHC 33.9 (30-36) % RDW 14.0 (11.6-14.8) % Plt Count 321 (150-400) X10^3/uL Neut % (Auto) 68.3 (50-75) % Lymph % (Auto) 16.4 L (25-40) % Arthur % (Auto) 8.5 (3-14) % Eos % (Auto) 6.0 H (2-4) % Baso % (Auto) 0.8 (0-2) % Neut # (Auto) 5900 (5459-7071) /uL Lymph # (Auto) 1400 (4093-7811) /uL Arthur # (Auto) 700 (0-900) /uL Eos # (Auto) 500 H (0-450) /uL Baso # (Auto) 100 (0-100) /uL Sodium 139 (137-145) mmol/L Potassium 3.6 (3.4-5.1) mmol/L Chloride 104 (98-107) mmol/L Carbon Dioxide 27 (22-32) mmol/L BUN 20 H (7-17) mg/dL Creatinine 0.70 (0.52-1.04) mg/dL Estimated GFR > 60.0 (>60) mL/min BUN/Creatinine Ratio 28.6 H (6-22) Glucose 99 (70-100) mg/dL Calcium 9.0 (8.4-10.2) mg/dL Procalcitonin < 0.05 (<0.5) ng/mL Influenza A (RT-PCR) (NEGATIVE) Influenza B (RT-PCR) (NEGATIVE) 02/06/19 Range/Units 19:30 WBC (4.5-11.0) X10^3/uL RBC (4.0-5.2) X10^6/uL Hgb (12.0-16.0) g/dL Hct (36-46) % MCV (80-100) fL MCH (26-34) PG MCHC (30-36) % RDW (11.6-14.8) % Plt Count (150-400) X10^3/uL Neut % (Auto) (50-75) % Lymph % (Auto) (25-40) % Arthur % (Auto) (3-14) % Eos % (Auto) (2-4) % Baso % (Auto) (0-2) % Neut # (Auto) (5270-8680) /uL Lymph # (Auto) (8836-1123) /uL Arthur # (Auto) (0-900) /uL Eos # (Auto) (0-450) /uL Baso # (Auto) (0-100) /uL Sodium (137-145) mmol/L Potassium (3.4-5.1) mmol/L Chloride (98-107) mmol/L Carbon Dioxide (22-32) mmol/L BUN (7-17) mg/dL Creatinine (0.52-1.04) mg/dL Estimated GFR (>60) mL/min BUN/Creatinine Ratio (6-22) Glucose (70-100) mg/dL Calcium (8.4-10.2) mg/dL Procalcitonin (<0.5) ng/mL Influenza A (RT-PCR) Flu a negative (NEGATIVE) Influenza B (RT-PCR) Flu b negative (NEGATIVE) Imaging Data Chest x-ray: Radiologist's impression: 7 Juan Ansari DO [facility] - Nai Zeng 58 F 1960 ACTIVITY DATE EXAM STATUS AUTHOR 02/06/19 19:[address] [address] XRay Report Signed Patient: Nai Zeng SMR#: [id number] : [id number]:[id number] Age/Sex: 58 / FDate of Service: 02/06/19 Loc: ED Accession Number: [id number] Procedure: XR chest 1V Ordering Provider: Juan Ansari D.O. PROCEDURE: XR CHEST 1V INDICATIONS: SOB, cough TECHNIQUE: One view of the chest was acquired. COMPARISON: [facility] , XR CHEST 1V, 07/30/2018, 17:03. FINDINGS: Surgical changes and devices: Multiple surgical clips project over the lower neck bilaterally. Lungs and pleura: Stable appearance of diffuse interstitial prominence, likely chronic in etiology. No acute airspace disease. No pleural effusions or pneumothorax. Mediastinum: Mediastinal contours appear normal. Heart size is normal. Bones and chest wall: No suspicious bony lesions. Overlying soft tissues appear unremarkable. IMPRESSION: Stable radiographic evaluation of the chest without acute cardiopulmonary abnormalities or focal airspace disease. Dictated by: Rm Pearson M.D. on 02/06/2019 at 19:52 Approved by: Rm Pearson M.D. on 02/06/2019 at 19:54 Discharge Plan Departure Patient Disposition: Home Clinical Impression: Acute tracheostomy management URI (upper respiratory infection) Qualifiers: URI type: unspecified viral URI Qualified Code(s): J06.9 - Acute upper respiratory infection, unspecified Discharge Date/Time: 02/06/19 21:50 Instructions: DI for Viral Upper Respiratory Infection -- Adult Activity Restrictions/Additional Instructions: *You have been diagnosed with [tracheostomy management, acute viral upper respiratory infection] *What to do: *Take medications as directed *Follow up with your primary care provider in 2-3 days, call for an appointment. Let them know you were seen in the Emergency Department and that we ask that you be seen in follow up *Return to ER if you should have any new, worsening or concerning symptoms Prescriptions: New mupirocin 2 % ointment 1 applictn TOP BID Qty: 15 RF: 0 No Action albuterol sulfate 2.5 MG/3 ML solution for nebulization 1 dose Inhalation QIDP PRN (Reason: Shortness Of Breath) Qty: 180 RF: 0 docusate sodium 100 MG capsule 100 mg PO BID Qty: 0 RF: 0 ferrous gluconate 324 MG tablet 324 mg PO DAILY Qty: 0 RF: 0 acetaminophen 325 MG tablet 325 mg PO Q6HP PRN (Reason: Pain, Mild) Qty: 0 RF: 0 amitriptyline 25 MG tablet 25 mg PO BEDTIME Qty: 0 RF: 0 ascorbic acid (vitamin C) 500 MG tablet 500 mg PO DAILY Qty: 0 RF: 0 fexofenadine 180 MG tablet 180 mg PO DAILY Qty: 0 RF: 0 nystatin 100,000 UNIT/1 ML suspension 1 dose PO DIRECTED PRN (Reason: thrush) Qty: 0 RF: 0 sodium chloride 0.9 % 10 ML solution 1 vial QID PRN (Reason: irrigate tracheostomy) Qty: 0 RF: 0 citalopram 40 mg tablet 40 mg PO DAILY RF: 0 lisinopril 10 mg tablet 10 mg PO BID RF: 0 estradiol 1 mg tablet 1 mg PO DAILY RF: 0 omeprazole 40 mg capsule,delayed release(DR/EC) 40 mg PO DAILY RF: 0 tramadol 50 mg tablet 50 mg PO Q6H PRN (Reason: pain) Qty: 10 RF: 0 levofloxacin [Levaquin] 750 mg tablet 750 mg PO DAILY Qty: 6 RF: 0 levothyroxine 88 mcg tablet 88 mcg PO DAILY RF: 0 gentamicin 0.1 % ointment 1 applic topical DIRECTED RF: 0 Referrals: Eusebio Hammer MD [Primary Care Provider] -
--- NOTE | 2019-02-06 19:19 | DI.RAD.S_ITS ---
PROCEDURE: XR CHEST 1V INDICATIONS: SOB, cough TECHNIQUE: One view of the chest was acquired. COMPARISON: [facility], CR, XR CHEST 1V, 07/30/2018, 17:03. FINDINGS: Surgical changes and devices: Multiple surgical clips project over the lower neck bilaterally. Lungs and pleura: Stable appearance of diffuse interstitial prominence, likely chronic in etiology. No acute airspace disease. No pleural effusions or pneumothorax. Mediastinum: Mediastinal contours appear normal. Heart size is normal. Bones and chest wall: No suspicious bony lesions. Overlying soft tissues appear unremarkable. IMPRESSION: Stable radiographic evaluation of the chest without acute cardiopulmonary abnormalities or focal airspace disease. Dictated by: Rm Pearson M.D. on 02/06/2019 at 19:52 Approved by: Rm Pearson M.D. on 02/06/2019 at 19:54
[2019-02-06 19:22] VITALS: O2SAT 95
[2019-02-06 19:42] LABS: Add Manual Diff / Slide Review NO; Basophils Absolute Auto 100 /uL (0-100); Basophils Percent Auto 0.8 % (0-2); Eosinophils Absolute Auto 500 /uL (0-450); Hematocrit 35.1 % (36-46); Hemoglobin 11.9 g/dL (12.0-16.0); Lymphocytes Absolute Auto 1400 /uL (1100-4500); Lymphocytes Percent Auto 16.4 % (25-40); Mean Corpuscular HGB Conc 33.9 % (30-36); Mean Corpuscular Hemoglobin 30.9 PG (26-34); Mean Corpuscular Volume 91.1 fL (80-100); Monocytes Absolute Auto 700 /uL (0-900); Monocytes Percent Auto 8.5 % (3-14); Neutrophils Absolute Auto 5900 /uL (1500-7000); Neutrophils Percent Auto 68.3 % (50-75); Platelet Count 321 X10^3/uL (150-400); Red Blood Cell Count 3.85 X10^6/uL (4.0-5.2); White Blood Cell Count 8.7 X10^3/uL (4.5-11.0)
[2019-02-06 19:54] LABS: BUN Creatinine Ratio 28.6 (6-22); Blood Urea Nitrogen 20 mg/dL (7-17); Carbon Dioxide 27 mmol/L (22-32); Chloride 104 mmol/L (98-107); Estimated Glomerular Filt Rate > 60.0 mL/min (>60); Glucose 99 mg/dL (70-100); HEMOLYSIS < 15 (0-50); Potassium 3.6 mmol/L (3.4-5.1); Sodium 139 mmol/L (137-145)
[2019-02-06 20:11] LABS: Procalcitonin < 0.05 ng/mL (<0.5)
[2019-02-06] MEDS: LORazepam 2 MG/ML INJ 0.5 MG IV (20:15)
[2019-02-06 20:20] LABS: Influenza A - CEPHEID Flu A NEGATIVE (NEGATIVE); Influenza B - CEPHEID Flu B NEGATIVE (NEGATIVE)
[2019-02-06 20:30] VITALS: BP 104/88; PULSE 65; RESP 18; O2SAT 96
[2019-02-06 21:04] VITALS: BP 114/96; PULSE 68; O2SAT 96
== END 2019-02-06 21:50 | disposition home or self-care (01) ==
PROVIDERS: Emergency Provider Emergency Medicine; PCP Internal Medicine
DX: J06.9 Acute upper respiratory infection, unspecified (principal); Z87.891 Personal history of nicotine dependence; Z93.0 Tracheostomy status
CPT/HCPCS: 71045; 80048; 84145; 85025; 87502; 96374; 99282; 99284; J2060

== ENCOUNTER → 2019-02-16 15:48 | Outpatient (ROUT) | payer OTHER, MEDICAID, SELFPAY ==
[2018-10-27 03:00] VITALS: BMI 40.3
== END ==
PROVIDERS: PCP Internal Medicine; Visit Provider Internal Medicine
DX: S11.80XD Unspecified open wound of other specified part of neck, subsequent encounter (principal)
CPT/HCPCS: 87070; 87075; 87205

== ENCOUNTER 2019-02-28 17:57 | Emergency (ER) | payer OTHER, MEDICAID, SELFPAY ==
[2018-10-27 03:00] VITALS: BMI 40.3
[2019-02-28] VITALS (9 sets, daily range): BP systolic 113–202; BP diastolic 57–96; PULSE 78–94; RESP 13–29; O2SAT 90–97
--- NOTE | 2019-02-28 18:31 | ED.GENADULT ---
HPI - General Adult General Chief complaint: Shortness of Breath/Dyspnea Stated complaint: COUGH/HARD TIME BREATHING Time Seen by Provider: 02/28/19 18:14 Source: patient Mode of arrival: Wheelchair Limitations: no limitations History of Present Illness HPI narrative: Patient is a 58-year-old female. Well known to myself in this emergency department. 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 Trach was placed in 2008. She does tolerate p.o. intake. She was at her normal state health when she was eating this evening. She states she felt like something got stuck in her lower chest. She then vomited. Since then has had some problems breathing and pain. She thinks that the sores on her neck surrounding her trach have opened up and become painful. She did do a nebulizer treatment prior to arrival without much improvement. Related Data Home Medications Medication Instructions Recorded Confirmed albuterol sulfate 1 dose INHALATION QIDP PRN #180 01/25/16 11/25/18 docusate sodium 100 mg PO BID #0 01/25/16 11/25/18 ferrous gluconate 324 mg PO DAILY #0 08/28/16 11/25/18 acetaminophen 325 mg PO Q6HP PRN #0 10/29/16 11/25/18 amitriptyline 25 mg PO BEDTIME #0 01/22/17 11/25/18 ascorbic acid (vitamin C) 500 mg PO DAILY #0 06/10/17 11/25/18 fexofenadine 180 mg PO DAILY #0 06/10/17 11/25/18 nystatin 1 dose PO DIRECTED PRN #0 06/10/17 11/25/18 sodium chloride 0.9 % 1 vial QID PRN #0 06/10/17 11/25/18 citalopram 40 mg PO DAILY 09/21/17 11/25/18 lisinopril 10 mg PO BID 09/21/17 11/25/18 levothyroxine 88 mcg PO DAILY 01/04/18 11/25/18 estradiol 1 mg PO DAILY 01/25/18 11/25/18 gentamicin 1 applic TOPICAL DIRECTED 05/24/18 11/25/18 omeprazole 40 mg PO DAILY 07/30/18 11/25/18 Previous Rx's Medication Instructions Recorded levofloxacin [Levaquin] 750 mg PO DAILY #6 tab 07/30/18 tramadol 50 mg PO Q6H PRN #10 tab 07/30/18 mupirocin 1 applictn TOP BID #15 gram 02/06/19 Allergies Allergy/AdvReac Type Severity Reaction Status Date / Time hydrocodone Allergy Intermediate RASH/HIVES Verified 02/28/19 18:14 Penicillins Allergy Intermediate RASH/HIVES Verified 02/28/19 18:14 metronidazole Allergy Mild RASH Verified 02/28/19 18:14 diphenhydramine Allergy Unknown Verified 02/28/19 18:14 [DIPHENHYDRAMINE] ibuprofen Allergy Unknown Verified 02/28/19 18:14 venom-wasp Allergy Verified 02/28/19 18:14 ranitidine AdvReac Intermediate SOB/DIZZY Verified 02/28/19 18:14 sulfamethoxazole AdvReac Mild GI UPSET Verified 02/28/19 18:14 [From Bactrim] trimethoprim [From Bactrim] AdvReac Mild GI UPSET Verified 02/28/19 18:14 fentanyl [FENTANYL] AdvReac Unknown vomiting Verified 02/28/19 18:14 ANTACIDS AdvReac Unknown Uncoded 02/28/19 18:14 Review of Systems Constitutional Constitutional: Denies fever(s) Cardiovascular Comments: Pain in the lower chest after eating Respiratory Respiratory: Reports cough Gastrointestinal Gastrointestinal: Reports vomiting Integumentary/Breasts Comments: Sores on her neck around the trach opened up Neurologic Neurologic: Denies behavioral changes Psychiatric Psychiatric: Denies behavioral changes Patient History Medical History Chronic pain (Acute) Community acquired pneumonia (Resolved) Laryngeal cancer (Chronic) MRSA (methicillin resistant Staphylococcus aureus) (Acute) Otitis media, purulent, acute, with spontaneous rupture of TM (Resolved) Tracheobronchitis (Chronic) Tracheostomy complication (Acute) Social History household members: significant other Smoking Status: Former smoker alcohol intake: former Smoking Status: Former smoker alcohol intake frequency: 0-2 drinks per day Substance Use Type: does not use Exam Initial Vital Signs Initial Vital Signs: Vital Signs Pulse Rate 94 H 02/28/19 18:14 Respiratory Rate 29 H 02/28/19 18:14 Blood Pressure 202/90 H 02/28/19 18:14 Pulse Oximetry 97 02/28/19 18:14 Const General: cooperative and well groomed Orientation: alert and awake HENMT Head: normal to inspection and normocephalic Neck Other: Trach midline, appears well. Scars are unchanged. See skin section for further description Resp Effort & Inspection: cough, not labored and tachypneic Other: Coarse breath sounds bilateral Cardio Rate: regular rate Skin Other: Scars in place in the neck are at baseline for her. She does have small raw areas either side of the trach which have been there in the past. These are consistent with the bandage is rubbing against her neck. Neuro General: alert and awake Cognition: normal cognition Extrem General: normal to inspection and capillary refill normal Psych Appearance: grossly normal and well kempt Course Orders Ordered: ED Orders 02/28/19 18:15 RT Consult Eval and Treat Now 02/28/19 19:08 Influenza A & B (PCR) Stat 02/28/19 20:04 EKG-12 Lead Routine 02/28/19 20:37 XR chest 1V Stat Albuterol/Ipratropium (Duoneb) 3 ml INH [id number] PRN PRN Reason: Wheezing Last Admin: 02/28/19 20:32 Dose: 3 ml Documented by: GILBERTO Discontinued Medications Albuterol (Ventolin) 2.5 mg INH NOW ONE Stop: 02/28/19 18:19 Last Admin: 02/28/19 18:33 Dose: 2.5 mg Documented by: AASHISH Albuterol (Ventolin) 2.5 mg INH NOW ONE Stop: 02/28/19 18:33 Last Admin: 02/28/19 18:36 Dose: 2.5 mg Documented by: AASHISH Ketorolac Tromethamine (Toradol) 30 mg IV NOW ONE Stop: 02/28/19 22:27 Last Admin: 02/28/19 22:31 Dose: 30 mg Documented by: AMBROSIO Lorazepam (Ativan) 0.5 mg PO NOW ONE Stop: 02/28/19 20:38 Last Admin: 02/28/19 20:50 Dose: 0.5 mg Documented by: AMBROSIO Methylprednisolone (Solu-Medrol 125 Mg Vial) 125 mg IV NOW ONE Stop: 02/28/19 18:46 Last Admin: 02/28/19 19:06 Dose: 125 mg Documented by: JENNIFER Vital Signs Vital signs: Vital Signs - 8 hr 02/28/19 18:14 02/28/19 18:36 02/28/19 19:30 Pulse Rate 94 H 84 78 Respiratory Rate 29 H 19 Blood Pressure 202/90 H Blood Pressure [Left Arm] 117/61 Pulse Oximetry 97 95 97 02/28/19 20:02 02/28/19 20:39 02/28/19 20:54 Pulse Rate 80 94 H Respiratory Rate 16 20 Blood Pressure Blood Pressure [Left Arm] 134/96 H Pulse Oximetry 96 97 92 02/28/19 21:00 02/28/19 22:00 02/28/19 22:34 Pulse Rate 90 84 86 Respiratory Rate 16 13 17 Blood Pressure Blood Pressure [Left Arm] 132/66 136/70 113/57 L Pulse Oximetry 90 L 91 92 Medical Decision Making Medical Records Medical records reviewed: Yes I reviewed the patient's medical records. Lab Data Lab results reviewed: Yes I reviewed the patient's lab results. Labs: Lab Results 02/28/19 Range/Units 19:08 Influenza A (RT-PCR) Flu a negative (NEGATIVE) Influenza B (RT-PCR) Flu b negative (NEGATIVE) Imaging Data Chest x-ray: Radiologist's Impression: [address] [address] XRay Report Signed Patient: Nai Zeng [facility]#: [id number] : [id number]:[id number] Age/Sex: 58 / FDate of Service: 02/28/19 Loc: ED Accession Number: [id number] Procedure: XR chest 1V Ordering Provider: Kwabena Hernandez D.O. PROCEDURE: XR CHEST 1V INDICATIONS: SOB TECHNIQUE: One view of the chest was acquired. COMPARISON: [facility], , XR CHEST 1V, 02/06/2019, 19:41. FINDINGS: Surgical changes and devices: Numerous surgical clips are stable. Lungs and pleura: Lungs are clear. No pleural effusions or pneumothorax. Mediastinum: Mediastinal contours appear normal. Heart size is normal. Bones and chest wall: No suspicious bony lesions. Overlying soft tissues appear unremarkable. IMPRESSION: No acute cardiopulmonary disease process. Dictated by: Zari Lee MD, PhD on 02/28/2019 at 20:57 Approved by: Zari Lee MD, PhD on 02/28/2019 at 20:58 ECG Data Attestation: I personally reviewed and interpreted this ECG as follows: Prior ECG tracings: not available for review Interpretation: Sinus rhythm Ventricular rate 87 Normal QRS Normal axis Nonspecific ST T wave changes MDM Narrative Medical decision making narrative: Chest x-ray shows no signs of pneumonia. The flu test was negative. Was suctioned by respiratory therapy. Did receive several nebulizer treatments. I feel that her respiratory status is baseline for her. No indication for antibiotics. She was able to tolerate oral intake. Low suspicion for retained foreign esophageal body. She does have quite a bit of discomfort from the sores next to her trachea. She has an appointment with her wound care doctor tomorrow. Will send home with Tylenol 3. Is given return precautions and follow-up instructions. 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 Take the medication as needed as directed. I would also eat a soft diet for the next day or so. Return to the emergency department for any new or worsening symptoms Prescriptions: No Action albuterol sulfate 2.5 MG/3 ML solution for nebulization 1 dose Inhalation QIDP PRN (Reason: Shortness Of Breath) Qty: 180 RF: 0 docusate sodium 100 MG capsule 100 mg PO BID Qty: 0 RF: 0 ferrous gluconate 324 MG tablet 324 mg PO DAILY Qty: 0 RF: 0 acetaminophen 325 MG tablet 325 mg PO Q6HP PRN (Reason: Pain, Mild) Qty: 0 RF: 0 amitriptyline 25 MG tablet 25 mg PO BEDTIME Qty: 0 RF: 0 ascorbic acid (vitamin C) 500 MG tablet 500 mg PO DAILY Qty: 0 RF: 0 fexofenadine 180 MG tablet 180 mg PO DAILY Qty: 0 RF: 0 nystatin 100,000 UNIT/1 ML suspension 1 dose PO DIRECTED PRN (Reason: thrush) Qty: 0 RF: 0 sodium chloride 0.9 % 10 ML solution 1 vial QID PRN (Reason: irrigate tracheostomy) Qty: 0 RF: 0 citalopram 40 mg tablet 40 mg PO DAILY RF: 0 lisinopril 10 mg tablet 10 mg PO BID RF: 0 estradiol 1 mg tablet 1 mg PO DAILY RF: 0 omeprazole 40 mg capsule,delayed release(DR/EC) 40 mg PO DAILY RF: 0 tramadol 50 mg tablet 50 mg PO Q6H PRN (Reason: pain) Qty: 10 RF: 0 levofloxacin [Levaquin] 750 mg tablet 750 mg PO DAILY Qty: 6 RF: 0 mupirocin 2 % ointment 1 applictn TOP BID Qty: 15 RF: 0 levothyroxine 88 mcg tablet 88 mcg PO DAILY RF: 0 gentamicin 0.1 % ointment 1 applic topical DIRECTED RF: 0 Referrals: Eusebio Hammer MD [Primary Care Provider] -
[2019-02-28] MEDS: ALBUTEROL 2.5 MG/3 ML NEB (ADULT) INH ×2 (18:33→18:36)
[2019-02-28] MEDS: methylPREDNISolone 125 MG/2 ML VIAL IV (19:06)
[2019-02-28 19:46] LABS: Influenza A - CEPHEID Flu A NEGATIVE (NEGATIVE); Influenza B - CEPHEID Flu B NEGATIVE (NEGATIVE)
--- NOTE | 2019-02-28 20:03 | PC.NURSE ---
patient is complaining of substernal chest pressure that is sharp. provider notified and a repeat EKG ordered. respiratory therapy at bedside for EKG.
[2019-02-28] MEDS: ALBUTEROL/IPRATROPIUM 3 ML AMPUL INH (20:32)
--- NOTE | 2019-02-28 20:37 | DI.RAD.S_ITS ---
PROCEDURE: XR CHEST 1V INDICATIONS: SOB TECHNIQUE: One view of the chest was acquired. COMPARISON: [facility], CR, XR CHEST 1V, 02/06/2019, 19:41. FINDINGS: Surgical changes and devices: Numerous surgical clips are stable. Lungs and pleura: Lungs are clear. No pleural effusions or pneumothorax. Mediastinum: Mediastinal contours appear normal. Heart size is normal. Bones and chest wall: No suspicious bony lesions. Overlying soft tissues appear unremarkable. IMPRESSION: No acute cardiopulmonary disease process. Dictated by: Zari Lee MD, PhD on 02/28/2019 at 20:57 Approved by: Zari Lee MD, PhD on 02/28/2019 at 20:58
[2019-02-28] MEDS: LORazepam 0.5 MG TABLET PO (20:50)
[2019-02-28] MEDS: KETOROLAC 60 MG/2 ML VIAL 30 MG IV (22:31)
[2019-02-28] MEDS: CODEINE/APAP 30/300 PREPACK 1 BOTTLE MISC (23:07)
== END 2019-02-28 23:15 | disposition home or self-care (01) ==
PROVIDERS: Emergency Provider Emergency Medicine; PCP Internal Medicine
DX: R11.10 Vomiting, unspecified (principal); L98.491 Non-pressure chronic ulcer of skin of other sites limited to breakdown of skin; R05 Cough
CPT/HCPCS: 36415; 71045; 87502; 93005; 94640; 96374; 96375; 99284; J1885; J2930; J7613

== ENCOUNTER 2019-03-20 20:54 | Emergency (ER) | payer OTHER, MEDICAID, SELFPAY ==
[2018-10-27 03:00] VITALS: BMI 40.3
--- NOTE | 2019-03-20 21:00 | ED_ITS ---
HPI - General Adult General Chief complaint: Shortness of Breath/Dyspnea Stated complaint: SOB, blocked stoma Time Seen by Provider: 03/20/19 21:00 Source: patient Mode of arrival: EMS Limitations: no limitations History of Present Illness HPI narrative: Patient is a 58-year-old female well known to this department and myself. Has a trach in place. Called EMS to bring into the emergency department this evening because she had an episode of vomiting. Also thought that her trach was becoming plugged and also had some bloody sputum from the trach. Received a DuoNeb and an albuterol neb prior to arrival. Patient has multiple complaints to include neck pain, abdominal pain, blood coming from the neck, shortness of breath, pressure in her neck, vomiting. Related Data Home Medications Medication Instructions Recorded Confirmed albuterol sulfate 1 dose INHALATION QIDP PRN #180 01/25/16 11/25/18 docusate sodium 100 mg PO BID #0 01/25/16 11/25/18 ferrous gluconate 324 mg PO DAILY #0 08/28/16 11/25/18 acetaminophen 325 mg PO Q6HP PRN #0 10/29/16 11/25/18 amitriptyline 25 mg PO BEDTIME #0 01/22/17 11/25/18 ascorbic acid (vitamin C) 500 mg PO DAILY #0 06/10/17 11/25/18 fexofenadine 180 mg PO DAILY #0 06/10/17 11/25/18 nystatin 1 dose PO DIRECTED PRN #0 06/10/17 11/25/18 sodium chloride 0.9 % 1 vial QID PRN #0 06/10/17 11/25/18 citalopram 40 mg PO DAILY 09/21/17 11/25/18 lisinopril 10 mg PO BID 09/21/17 11/25/18 levothyroxine 88 mcg PO DAILY 01/04/18 11/25/18 estradiol 1 mg PO DAILY 01/25/18 11/25/18 gentamicin 1 applic TOPICAL DIRECTED 05/24/18 11/25/18 omeprazole 40 mg PO DAILY 07/30/18 11/25/18 Previous Rx's Medication Instructions Recorded levofloxacin [Levaquin] 750 mg PO DAILY #6 tab 07/30/18 tramadol 50 mg PO Q6H PRN #10 tab 07/30/18 mupirocin 1 applictn TOP BID #15 gram 02/06/19 Allergies Allergy/AdvReac Type Severity Reaction Status Date / Time hydrocodone Allergy Intermediate RASH/HIVES Verified 02/28/19 18:14 Penicillins Allergy Intermediate RASH/HIVES Verified 02/28/19 18:14 metronidazole Allergy Mild RASH Verified 02/28/19 18:14 diphenhydramine Allergy Unknown Verified 02/28/19 18:14 [DIPHENHYDRAMINE] ibuprofen Allergy Unknown Verified 02/28/19 18:14 venom-wasp Allergy Verified 02/28/19 18:14 ranitidine AdvReac Intermediate SOB/DIZZY Verified 02/28/19 18:14 sulfamethoxazole AdvReac Mild GI UPSET Verified 02/28/19 18:14 [From Bactrim] trimethoprim [From Bactrim] AdvReac Mild GI UPSET Verified 02/28/19 18:14 fentanyl [FENTANYL] AdvReac Unknown vomiting Verified 02/28/19 18:14 ANTACIDS AdvReac Unknown Uncoded 02/28/19 18:14 Review of Systems Constitutional Constitutional: Reports body ache(s), Denies fever(s) and Denies headache(s) ENT Ears, Nose, Mouth, and Throat: Denies headache(s) Comments: Neck pain, blood coming from her trach, pressure in her neck come Cardiovascular Cardiovascular: Denies chest pain and Reports dyspnea Respiratory Respiratory: Reports cough and Reports dyspnea Gastrointestinal Gastrointestinal: Reports abdominal pain, Denies change in stool character and Reports vomiting Musculoskeletal Musculoskeletal: Denies myalgias and Denies arthralgias Integumentary/Breasts Skin/Breast: Denies lesions and Denies rash Neurologic Neurologic: Denies behavioral changes and Denies headache(s) Psychiatric Psychiatric: Denies behavioral changes Hematologic/Lymphatic Hematologic/Lymphatic: Denies easy bleeding and Denies easy bruising Patient History Medical History Chronic pain (Acute) Community acquired pneumonia (Resolved) Laryngeal cancer (Chronic) MRSA (methicillin resistant Staphylococcus aureus) (Acute) Otitis media, purulent, acute, with spontaneous rupture of TM (Resolved) Tracheobronchitis (Chronic) Tracheostomy complication (Acute) Surgical History History of hysterectomy (Acute) Hx of appendectomy (Acute) Social History household members: significant other Smoking Status: Former smoker alcohol intake: former Smoking Status: Former smoker alcohol intake frequency: 0-2 drinks per day Substance Use Type: does not use Exam Initial Vital Signs Initial Vital Signs: Vital Signs Temperature 98.0 F 03/20/19 21:06 Pulse Rate 91 H 03/20/19 21:06 Respiratory Rate 18 03/20/19 21:06 Blood Pressure 164/124 H 03/20/19 21:06 Pulse Oximetry 97 03/20/19 21:06 Const General: cooperative and comfortable Limitations: mental status not altered HENMT Head: normal to inspection and normocephalic Neck Other: Trach stoma anterior. Has skin erosions lateral to this. No active b leeding. Resp Effort & Inspection: cough, no grunting and tachypneic Auscultation: clear to auscultation bilaterally Cardio Rate: regular rate Rhythm: regular rhythm GI Inspection: non-distended Palpation: soft and tender (Diffuse tenderness) Skin Other: Skin erosions lateral to her trach which are not new Neuro General: alert and awake Cognition: normal cognition Extrem General: normal to inspection and capillary refill normal Psych Appearance: grossly normal and well kempt Course Orders Ordered: ED Orders 03/20/19 21:00 RT Consult Eval and Treat Now 03/20/19 21:24 XR chest 1V Stat 03/20/19 21:54 Basic Metabolic Panel Stat Complete Blood Count AUTO DIFF Stat Partial Thromboplastin Time Stat Procalcitonin Stat Prothrombin Time INR Stat Troponin I Stat 03/20/19 23:51 CT soft tissue neck w con Stat 03/20/19 23:52 CT abdomen pelvis w con Stat 03/21/19 01:29 Hepatic (Liver) Panel Stat Lipase Stat Sodium Chloride (Normal Saline 0.9%) 1,000 mls @ 150 mls/hr IV CONT DAMARIS Last Infusion: 03/21/19 01:54 Dose: 0 mls/hr Documented by: Infusion: 03/21/19 00:10 Dose: 1,000 mls/hr Documented by: Admin: 03/20/19 23:38 Dose: 150 mls/hr Documented by: CHRISTOPHER Discontinued Medications Acetaminophen (Tylenol) 650 mg PO NOW ONE Stop: 03/20/19 23:16 Last Admin: 03/20/19 23:38 Dose: 650 mg Documented by: CHRISTOPEHR Sodium Chloride (Normal Saline 0.9%) 1,000 mls @ 1,000 mls/hr IV BOLUS ONE Stop: 03/20/19 22:41 Last Infusion: 03/20/19 22:57 Dose: 0 mls/hr Documented by: Admin: 03/20/19 21:45 Dose: 1,000 mls/hr Documented by: CHRISTOPHER Lorazepam (Ativan) 0.5 mg IV NOW ONE Stop: 03/20/19 22:21 Last Admin: 03/20/19 22:39 Dose: 0.5 mg Documented by: HILTON Vital Signs Vital signs: Vital Signs - 8 hr 03/20/19 21:06 03/20/19 21:12 03/20/19 22:06 Temperature 98.0 F Pulse Rate 91 H 92 H 84 Respiratory Rate 18 18 22 Blood Pressure 164/124 H Blood Pressure [Left Arm] 84/62 L Pulse Oximetry 97 100 100 03/20/19 22:33 03/20/19 23:45 03/21/19 00:11 Temperature Pulse Rate 76 88 82 Respiratory Rate 22 22 Blood Pressure Blood Pressure [Left Arm] 116/59 L 88/71 L 113/74 Pulse Oximetry 99 96 96 03/21/19 00:45 Temperature Pulse Rate 73 Respiratory Rate Blood Pressure Blood Pressure [Left Arm] 157/85 H Pulse Oximetry 95 Medical Decision Making Medical Records Medical records reviewed: Yes I reviewed the patient's medical records. Lab Data Lab results reviewed: Yes I reviewed the patient's lab results. Result diagrams: 03/20/19 21:54 03/20/19 21:54 Labs: Lab Results 03/20/19 03/20/19 03/20/19 Range/Units 21:54 21:54 21:54 WBC 7.3 (4.5-11.0) X10^3/uL RBC 3.80 L (4.0-5.2) X10^6/uL Hgb 11.7 L (12.0-16.0) g/dL Hct 34.0 L (36-46) % MCV 89.5 (80-100) fL MCH 30.6 (26-34) PG MCHC 34.2 (30-36) % RDW 13.8 (11.6-14.8) % Plt Count 275 (150-400) X10^3/uL Neut % (Auto) 68.2 (50-75) % Lymph % (Auto) 20.0 L (25-40) % Lewis % (Auto) 7.5 (3-14) % Eos % (Auto) 3.5 (2-4) % Baso % (Auto) 0.8 (0-2) % Neut # (Auto) 5000 (9425-0962) /uL Lymph # (Auto) 1500 (0757-0557) /uL Lewis # (Auto) 500 (0-900) /uL Eos # (Auto) 300 (0-450) /uL Baso # (Auto) 100 (0-100) /uL PT 11.3 (10.1-12.7) SECONDS INR 1.0 (0.9-1.3) APTT 31 (26.4-36.2) SECONDS Sodium 138 (137-145) mmol/L Potassium 2.8 L (3.4-5.1) mmol/L Chloride 102 (98-107) mmol/L Carbon Dioxide 29 (22-32) mmol/L BUN 16 (7-17) mg/dL Creatinine 0.80 (0.52-1.04) mg/dL Estimated GFR > 60.0 (>60) mL/min BUN/Creatinine Ratio 20.0 (6-22) Glucose 127 H (70-100) mg/dL Calcium 8.3 L (8.4-10.2) mg/dL Total Bilirubin (0.2-1.3) mg/dL Conjugated Bilirubin (0.0-0.3) md/dL Unconjugated Bilirubin (0.0-1.1) mg/dL AST (14-36) IU/L ALT (<35) IU/L Alkaline Phosphatase (38-126) U/L Troponin I (0.01-0.034) ng/mL Total Protein (6.3-8.2) g/dL Albumin (3.5-5.0) g/dL Globulin (1.7-4.1) g/dL Albumin/Globulin Ratio (1.0-2.8) Lipase (23-300) U/L Procalcitonin (<0.5) ng/mL 03/20/19 03/20/19 03/20/19 Range/Units 21:54 21:54 21:54 WBC (4.5-11.0) X10^3/uL RBC (4.0-5.2) X10^6/uL Hgb (12.0-16.0) g/dL Hct (36-46) % MCV (80-100) fL MCH (26-34) PG MCHC (30-36) % RDW (11.6-14.8) % Plt Count (150-400) X10^3/uL Neut % (Auto) (50-75) % Lymph % (Auto) (25-40) % Lewis % (Auto) (3-14) % Eos % (Auto) (2-4) % Baso % (Auto) (0-2) % Neut # (Auto) (1227-3260) /uL Lymph # (Auto) (5665-1344) /uL Lewis # (Auto) (0-900) /uL Eos # (Auto) (0-450) /uL Baso # (Auto) (0-100) /uL PT (10.1-12.7) SECONDS INR (0.9-1.3) APTT (26.4-36.2) SECONDS Sodium (137-145) mmol/L Potassium (3.4-5.1) mmol/L Chloride (98-107) mmol/L Carbon Dioxide (22-32) mmol/L BUN (7-17) mg/dL Creatinine (0.52-1.04) mg/dL Estimated GFR (>60) mL/min BUN/Creatinine Ratio (6-22) Glucose (70-100) mg/dL Calcium (8.4-10.2) mg/dL Total Bilirubin 0.2 (0.2-1.3) mg/dL Conjugated Bilirubin 0.0 (0.0-0.3) md/dL Unconjugated Bilirubin 0.1 (0.0-1.1) mg/dL AST 28 (14-36) IU/L ALT 12 (<35) IU/L Alkaline Phosphatase 68 (38-126) U/L Troponin I < 0.012 (0.01-0.034) ng/mL Total Protein 6.0 L (6.3-8.2) g/dL Albumin 3.7 (3.5-5.0) g/dL Globulin 2.3 (1.7-4.1) g/dL Albumin/Globulin Ratio 1.6 (1.0-2.8) Lipase 103 (23-300) U/L Procalcitonin < 0.05 (<0.5) ng/mL Imaging Data Chest x-ray: Radiologist's Impression: [address] [address] XRay Report Signed Patient: Nai Zeng [facility]#: [id number] : 1Acct:[id number] Age/Sex: 58 / FDate of Service: 03/20/19 Loc: ED Accession Number: [id number] Procedure: XR chest 1V Ordering Provider: Kwabena Hernandez D.O. PROCEDURE: XR CHEST 1V INDICATIONS: cough up blood TECHNIQUE: One view of the chest was acquired. COMPARISON: [facility], , XR CHEST 1V, 02/28/2019, 20:41. FINDINGS: Surgical changes and devices: Surgical clips are present in the thoracic inlet. Lungs and pleura: Lungs are clear. No pleural effusions or pneumothorax. There is elevation of the right hemidiaphragm. Mediastinum: Mediastinal contours appear normal. Heart size is normal. Bones and chest wall: No suspicious bony lesions. Overlying soft tissues appear unremarkable. IMPRESSION: No acute cardiopulmonary findings. Dictated by: Charity Tran M.D. on 03/20/2019 at 21:56 Approved by: Charity Tran M.D. on 03/20/2019 at 21:57 CT scan - abdomen/pelvis: Radiologist's Impression: Findings typical of cholelithiasis Mild common bile duct dilation. No choledocholithiasis identified. Consider right upper quadrant ultrasound to further evaluate No bowel obstruction CT scan neck: Radiologist's Impression: Wall thickening involving a segment of esophagus near thoracic inlet. Primary considerations would include esophagitis. ECG Data Attestation: I personally reviewed and interpreted this ECG as follows: Prior ECG tracings: not available for review Interpretation: Sinus rhythm Ventricular rate is 71 Normal axis Normal QRS Normal QTC No ST T wave changes MDM Narrative Medical decision making narrative: Patient did have some blood tinge sputum on paper towels when she came in. she was in mild respiratory distress. Was provided oxygen by trach collar. No suctioning was provided because the patient was coughing in the concern was in further irritation of her trachea. She had multiple complaints. Patient was hypotensive with a systolic blood pressure in the 80s and a mean arterial pressure in the low 60s. Review of her blood pressures do show that she is normally systolic above 100. She was not complaining of any chest pain however an EKG was ordered labs were ordered. Low suspicion for ACS secondary to this. She did have complaints of pressure in her throat. Given the blood tinged sputum was concerned about potential issues with regard to her trach. CT scan of the neck was ordered which did not show any acute pathology to explain her symptoms. She does have a history of bowel obstructions. She is complaining of generalized abdominal pain. She states that it felt ?a little ?like prior bowel obstructions. She did have an episode of vomiting. CT scan of the abdomen did not show any acute pathology. She had no right upper quadrant tenderness. Her LFTs unremarkable. Low suspicion for acute cholecystitis. Blood pressure did improve with fluids. Her respiratory status improved. If no signs of pneumonia. I do suspect that the bleeding from the trach is irritation. She has chronic wounds next to the trach which she is going to see the wound care on Thursday of this week. I do not feel that she needs admitted to the hospital. I did tried to provide reassurance to the patient. She was given return precautions. Discharge Plan Departure Patient Disposition: Home Clinical Impression: Tracheostomy complication Qualifiers: Tracheostomy complication: unspecified Qualified Code(s): J95.00 - Unspecified tracheostomy complication Activity Restrictions/Additional Instructions: Keep all of your scheduled medical appointments to include the wound care appointment later this week. I do recommend you contact your primary provider for a follow-up. Return to the emergency department for any new or worsening symptoms Prescriptions: No Action albuterol sulfate 2.5 MG/3 ML solution for nebulization 1 dose Inhalation QIDP PRN (Reason: Shortness Of Breath) Qty: 180 RF: 0 docusate sodium 100 MG capsule 100 mg PO BID Qty: 0 RF: 0 ferrous gluconate 324 MG tablet 324 mg PO DAILY Qty: 0 RF: 0 acetaminophen 325 MG tablet 325 mg PO Q6HP PRN (Reason: Pain, Mild) Qty: 0 RF: 0 amitriptyline 25 MG tablet 25 mg PO BEDTIME Qty: 0 RF: 0 ascorbic acid (vitamin C) 500 MG tablet 500 mg PO DAILY Qty: 0 RF: 0 fexofenadine 180 MG tablet 180 mg PO DAILY Qty: 0 RF: 0 nystatin 100,000 UNIT/1 ML suspension 1 dose PO DIRECTED PRN (Reason: thrush) Qty: 0 RF: 0 sodium chloride 0.9 % 10 ML solution 1 vial QID PRN (Reason: irrigate tracheostomy) Qty: 0 RF: 0 citalopram 40 mg tablet 40 mg PO DAILY RF: 0 lisinopril 10 mg tablet 10 mg PO BID RF: 0 estradiol 1 mg tablet 1 mg PO DAILY RF: 0 omeprazole 40 mg capsule,delayed release(DR/EC) 40 mg PO DAILY RF: 0 tramadol 50 mg tablet 50 mg PO Q6H PRN (Reason: pain) Qty: 10 RF: 0 levofloxacin [Levaquin] 750 mg tablet 750 mg PO DAILY Qty: 6 RF: 0 mupirocin 2 % ointment 1 applictn TOP BID Qty: 15 RF: 0 levothyroxine 88 mcg tablet 88 mcg PO DAILY RF: 0 gentamicin 0.1 % ointment 1 applic topical DIRECTED RF: 0 Referrals: Eusebio Hammer MD [Primary Care Provider] -
[2019-03-20 21:06] VITALS: BP 164/124; PULSE 91; RESP 18; TEMP 36.7; O2SAT 97; BMI 33.9
[2019-03-20 21:12] VITALS: PULSE 92; RESP 18; O2SAT 100
--- NOTE | 2019-03-20 21:24 | DI.RAD.S_ITS ---
PROCEDURE: XR CHEST 1V INDICATIONS: cough up blood TECHNIQUE: One view of the chest was acquired. COMPARISON: [facility], , XR CHEST 1V, 02/28/2019, 20:41. FINDINGS: Surgical changes and devices: Surgical clips are present in the thoracic inlet. Lungs and pleura: Lungs are clear. No pleural effusions or pneumothorax. There is elevation of the right hemidiaphragm. Mediastinum: Mediastinal contours appear normal. Heart size is normal. Bones and chest wall: No suspicious bony lesions. Overlying soft tissues appear unremarkable. IMPRESSION: No acute cardiopulmonary findings. Dictated by: Charity Tran M.D. on 03/20/2019 at 21:56 Approved by: Charity Tran M.D. on 03/20/2019 at 21:57
--- NOTE | 2019-03-20 21:28 | PC.NURSE ---
hx of cancer with stoma/trach in place. reports tonight increasing difficulty breathing with increased secretions with some traces of blood.
[2019-03-20] MEDS: SODIUM CHLORIDE 0.9% 1,000 ML 1000 ML IV (21:45)
--- NOTE | 2019-03-20 21:52 | PC.NURSE ---
patient blood pressure trending down to 98/35, provider notified, orders received.
--- NOTE | 2019-03-20 22:02 | PC.NURSE ---
medics report they gave one albuterol atrovent neb and one albuterol neb.
--- NOTE | 2019-03-20 22:03 | PC.NURSE ---
patient remains hypotensive, attempting second iv, NS infusing in right hand. Provider notified. left hand fingers have brisk cap refil, patient mentating.
[2019-03-20 22:06] VITALS: BP 84/62; PULSE 84; RESP 22; O2SAT 100
--- NOTE | 2019-03-20 22:07 | PC.NURSE ---
simple mask placed over stoma
[2019-03-20 22:11] LABS: Add Manual Diff / Slide Review NO; Basophils Absolute Auto 100 /uL (0-100); Basophils Percent Auto 0.8 % (0-2); Eosinophils Absolute Auto 300 /uL (0-450); Eosinophils Percent Auto 3.5 % (2-4); Hemoglobin 11.7 g/dL (12.0-16.0); Lymphocytes Absolute Auto 1500 /uL (1100-4500); Mean Corpuscular HGB Conc 34.2 % (30-36); Mean Corpuscular Hemoglobin 30.6 PG (26-34); Mean Corpuscular Volume 89.5 fL (80-100); Monocytes Absolute Auto 500 /uL (0-900); Monocytes Percent Auto 7.5 % (3-14); Neutrophils Absolute Auto 5000 /uL (1500-7000); Neutrophils Percent Auto 68.2 % (50-75); Platelet Count 275 X10^3/uL (150-400); Red Cell Distribution Width 13.8 % (11.6-14.8); White Blood Cell Count 7.3 X10^3/uL (4.5-11.0)
[2019-03-20 22:15] LABS: Prothrombin Time 11.3 SECONDS (10.1-12.7)
[2019-03-20 22:17] LABS: PTT Partial Thromboplastin Tim 31 SECONDS (26.4-36.2)
[2019-03-20 22:21] LABS: Blood Urea Nitrogen 16 mg/dL (7-17); Calcium 8.3 mg/dL (8.4-10.2); Carbon Dioxide 29 mmol/L (22-32); Chloride 102 mmol/L (98-107); Estimated Glomerular Filt Rate > 60.0 mL/min (>60); Glucose 127 mg/dL (70-100); HEMOLYSIS < 15 (0-50); Potassium 2.8 mmol/L (3.4-5.1); Sodium 138 mmol/L (137-145)
[2019-03-20 22:33] VITALS: BP 116/59; PULSE 76; O2SAT 99
[2019-03-20 22:33] LABS: Troponin I < 0.012 ng/mL (0.01-0.034)
[2019-03-20 22:35] LABS: Procalcitonin < 0.05 ng/mL (<0.5)
[2019-03-20] MEDS: LORazepam 2 MG/ML INJ 0.5 MG IV (22:39)
[2019-03-20] MEDS: ACETAMINOPHEN 325 MG TABLET 650 MG PO (23:38)
[2019-03-20] MEDS: SODIUM CHLORIDE 0.9% 1,000 ML 150 ML IV (23:38)
--- NOTE | 2019-03-20 23:42 | PC.NURSE ---
blood pressure trending back down. provider notified, NS increased to bolus rate. Provider at bedside.
[2019-03-20 23:45] VITALS: BP 88/71; PULSE 88; RESP 22; O2SAT 96
--- NOTE | 2019-03-20 23:51 | DI.CT.S_ITS ---
PROCEDURE: CT SOFT TISSUE NECK W CON INDICATIONS: trach with pressure and vomit blood TECHNIQUE: After the administration of intravenous contrast, 3.0 mm axial sections acquired from the sella to the aortic arch. Additional oblique axial 3.0 mm sections acquired through the pharynx. 3 mm thick coronal and sagittal reformats were generated. For radiation dose reduction, the following was used: automated exposure control. COMPARISON: [facility], CT, CT ANGIO CHEST PE PROTOCOL, 07/17/2018, 3:44. [facility], CT, CT ANGIO CHEST PE PROTOCOL, 01/25/2018, 16:59. [facility], CT, CT SOFT TISSUE NECK W CON, 03/27/2018, 13:37. [facility], CT, CT SOFT TISSUE NECK W CON, 05/24/2018, 15:41. [facility], CT, CT SOFT TISSUE NECK W CON, 07/30/2018, 18:14. FINDINGS: Image quality: Excellent. Lymph nodes: No enlarged lymph nodes seen throughout the neck. There is mild mediastinal lymphadenopathy. Enlarged right paratracheal lymph nodes measure up to 1.7 cm. There is a 1.2 x 2.1 cm subcarinal lymph node. Vessels: Visualized vasculature appears patent. Neck spaces: Tracheostomy appears patent and unchanged. There are post surgical post radiation changes in the neck with soft tissue thickening. The upper esophagus is thickened. The oropharynx, nasopharynx, and pharynx demonstrate no mucosal lesions. The vocal cords, false vocal cords, pyriform sinuses, epiglottis, vallecula, and tongue base all appear normal. Extramucosal spaces appear unremarkable. Glands: The parotid glands appear normal. Subclinic ligaments are absent. Thyroid gland is not visualized.. Miscellaneous: Visualized brain and orbits appear normal. Lung apices appear clear. Superficial soft tissues appear normal. Bones: No suspicious bony lesions. Visualized sinuses and mastoids appear unremarkable. IMPRESSION: 1. Tracheostomy device appears patent and unchanged. 2. Thickening of upper esophagus suggesting esophagitis. No infiltrating infiltrating mass. Upper endoscopy suggested. 3. Mild mediastinal lymphadenopathy suspicious for metastatic disease. If clinically indicated, PET CT may be obtained. 4. Extensive postsurgical and possible postradiation changes in neck. No significant discrepancy with the lieutenant shift supervisor radiology preliminary report. Dictated by: Selena Vincent M.D. on 03/21/2019 at 9:47 Approved by: Selena Vincent M.D. on 03/21/2019 at 10:01
--- NOTE | 2019-03-20 23:52 | DI.CT.S_ITS ---
PROCEDURE: CT ABDOMEN PELVIS W CON INDICATIONS: Generalized abd pain hx of SBO TECHNIQUE: After the administration of intravenous contrast, 5 mm thick sections acquired from the diaphragm to the symphysis. 5 mm coronal and sagittal reformats were acquired. For radiation dose reduction, the following was used: automated exposure control, adjustment of mA and/or kV according to patient size. COMPARISON: [facility], CT, ABDOMEN/PELVIS WITH CONTRAST, 10/29/2016, 14:46. [facility], CT, CHEST/ABDOMEN WITHOUT CONTRAST, 02/26/2015, 9:34. [facility], CT, CHEST/ABD/PEL WITH CONTRAST, 08/24/2014, 15:40. [facility], CT, THORAX WITHOUT CONTRAST, 04/25/2014, 11:27. [facility], CT, THORAX WITHOUT CONTRAST, 11/21/2013, 13:29. [facility], CT, CT ANGIO CHEST PE PROTOCOL, 01/25/2018, 16:59. [facility], CT, CT ANGIO CHEST PE PROTOCOL, 07/17/2018, 3:44. [facility], CT, CT ABDOMEN PELVIS W CON, 10/26/2018, 19:05. FINDINGS: Image quality: Excellent. ABDOMEN: Lung bases: There is an 8 mm nodule in the left lower lobe, slightly enlarged since 10/29/2016 (6 mm). Heart size is normal. Solid organs: Liver is normal in size and enhancement. Gallbladder contains gallstones. No intrahepatic biliary dilation. Common bile duct measures 8-9 mm. Pancreas enhances normally. Spleen is normal in size and enhancement. No adrenal nodules. Kidneys demonstrate normal size and enhancement, without hydronephrosis. Peritoneum and bowel: There are numerous colonic diverticula. No findings to suggest acute diverticulitis. Bowel loops demonstrate normal wall thickness and caliber. No free fluid or air. Nodes and vessels: There is mesenteric stranding. Small mesenteric lymph nodes are present. No retroperitoneal or mesenteric adenopathy by size criteria. Aorta and inferior vena cava are normal in size. Miscellaneous: Small fat-containing umbilical hernia. PELVIS: Genitourinary: Bladder wall thickness is normal. Miscellaneous: No inguinal hernias or adenopathy. Bones: No suspicious bony lesions. Severe chronic compression fracture of L1. IMPRESSION: 1. No CT findings to suggest small bowel obstruction. 2. Cholelithiasis. Common bile duct measures 8-9 mm. No intrahepatic biliary dilation. Please correlate with serum bilirubin. 3. Diverticulosis without acute diverticulitis. 4. Chronic severe L1 compression fracture. 5. Mesenteric stranding and numerous small normal sized mesenteric lymph nodes consistent with mesenteric adenitis. 6. An 8 mm in the left lower lobe is slightly enlarged since 10/29/2016 (6 mm). A [address] is suggested. No significant discrepancy with the occupational safety specialist radiology preliminary report. Fleischner Society criteria for SOLID lung nodule followup. Nodule size (mm)Low-risk patientHigh-risk patient?4No follow-up neededFollow-up at 12 mo; if no change, no further follow-up>[id number] CT at 12 mo; if no change, no further follow-up needed.Initial follow-up CT at 6-12 mo, then 18-24 mo if no change. >6-8Initial follow-up CT at 6-12 mo, then 18-24 mo if no change. Initial follow-up CT at 3-6 mo, then 9-12 mo and 24 mo if no change. >8Follow-up CT at 3, 9, 24 mo. Or PET and/or biopsy.Same as for low-risk pts. Dictated by: Selena Vincent M.D. on 03/21/2019 at 8:17 Approved by: Selena Vincent M.D. on 03/21/2019 at 8:33
[2019-03-21 00:11] VITALS: BP 113/74; PULSE 82; RESP 22; O2SAT 96
--- NOTE | 2019-03-21 00:12 | PC.NURSE ---
removed from oxygen. maintaining sats >95
[2019-03-21 00:45] VITALS: BP 157/85; PULSE 73; O2SAT 95
[2019-03-21 01:41] LABS: Alanine Aminotransferase 12 IU/L (<35); Albumin 3.7 g/dL (3.5-5.0); Albumin Globulin Ratio 1.6 (1.0-2.8); Alkaline Phosphatase 68 U/L (38-126); Aspartate Aminotransferase 28 IU/L (14-36); Bilirubin Total 0.2 mg/dL (0.2-1.3); Bilirubin Unconjugated 0.1 mg/dL (0.0-1.1); Globulin 2.3 g/dL (1.7-4.1); HEMOLYSIS < 15 (0-50); Lipase 103 U/L (23-300)
[2019-03-21 02:32] VITALS: BP 119/69; PULSE 72; RESP 18; O2SAT 95
== END 2019-03-21 02:35 | disposition home or self-care (01) ==
PROVIDERS: Emergency Provider Emergency Medicine; PCP Internal Medicine
DX: J95.00 Unspecified tracheostomy complication (principal); R10.84 Generalized abdominal pain; M54.2 Cervicalgia; I95.9 Hypotension, unspecified
CPT/HCPCS: 36415; 70491; 71045; 74177; 80048; 80076; 83690; 84145; 84484; 85025; 85610; 85730; 93005; 96361; 96374; 99285; J2060; Q9967

== ENCOUNTER → 2019-03-24 15:45 | Outpatient (ROUT) | payer OTHER, MEDICAID, SELFPAY ==
[2018-10-27 03:00] VITALS: BMI 40.3
== END ==
PROVIDERS: PCP Internal Medicine; Visit Provider Internal Medicine
DX: S11.80XD Unspecified open wound of other specified part of neck, subsequent encounter (principal)
CPT/HCPCS: 87070; 87075; 87077; 87186; 87205

== ENCOUNTER 2019-03-25 15:46 | Emergency (ER) | payer OTHER, MEDICAID, SELFPAY ==
[2018-10-27 03:00] VITALS: BMI 40.3
[2019-03-25 15:58] VITALS: BP 220/104; PULSE 94; RESP 18; TEMP 36.9; O2SAT 95; BMI 37.0
--- NOTE | 2019-03-25 16:01 | DI.RAD.S_ITS ---
PROCEDURE: XR RIBS RT MIN 3V W CXR 1V INDICATIONS: R rib pain, dyspnea, fell 2 days ago TECHNIQUE: 2 views of the right ribs were acquired, along with a single view chest. COMPARISON: [facility], , XR CHEST 1V, 03/20/2019, 21:49. FINDINGS: Surgical changes and devices: Neck vascular clips are stable. Bones and chest wall: No fractures or dislocations. No suspicious bony lesions. Overlying soft tissues appear unremarkable. Lungs and pleura: No pleural effusions or pneumothorax. Lungs appear clear. Eventration of the right hemidiaphragm is stable. Mediastinum: Mediastinal contours appear normal. Heart size is normal. IMPRESSION: No displaced rib fracture. No acute cardiopulmonary disease process. Dictated by: Zari Lee MD, PhD on 03/25/2019 at 16:59 Approved by: Zari Lee MD, PhD on 03/25/2019 at 17:01
--- NOTE | 2019-03-25 16:21 | PC.NURSE ---
yellow thick secretions suctioned by RT
[2019-03-25] MEDS: ACETAMINOPHEN 325 MG TABLET 975 MG PO (16:33)
[2019-03-25] MEDS: LIDOCAINE PATCH 1 EACH ADH..PATCH TOP (16:33)
[2019-03-25 16:44] VITALS: BP 190/97; PULSE 91; RESP 18; O2SAT 94
--- NOTE | 2019-03-25 16:56 | ED_ITS ---
HPI - Fall <Jam LORI Garcia - Last Filed: 03/25/19 23:01> General Chief Complaint: Fall Stated Complaint: FALL RIGHT SIDE RIB PAIN HARD TIME BREATHING Time Seen by Provider: 03/25/19 15:47 Source: patient Mode of arrival: Ambulatory Limitations: other (tracheostomy-communicate with writings) History of Present Illness HPI Narrative: This is a 58-year-old female, former smoker, who presents to ED with chief complain pain in her right ribs. The patient has a tracheostomy and visits ED frequently with tracheostomy complications and breathing difficulty. She states she fell 2 days ago and has been having with the trouble breathing, pain with deep inhalation, coughing, and movements. Patient is unsure of fever and denies chills or vomiting. Patient had tried taking Tylenol without much effect with pain management. Patient denies injuring her head from falling. Denies pain in her upper or lower extremities. Patient was seen here 4 days ago with tracheostomy complication and was discharged to home to follow-up with her primary care physician. Related Data Home Medications Medication Instructions Recorded Confirmed albuterol sulfate 1 dose INHALATION QIDP PRN #180 01/25/16 03/25/19 docusate sodium 100 mg PO BID #0 01/25/16 03/25/19 acetaminophen 325 mg PO Q6HP PRN #0 10/29/16 03/25/19 amitriptyline 25 mg PO BEDTIME #0 01/22/17 03/25/19 ascorbic acid (vitamin C) 500 mg PO DAILY #0 06/10/17 03/25/19 fexofenadine 180 mg PO DAILY #0 06/10/17 03/25/19 nystatin 1 dose PO DIRECTED PRN #0 06/10/17 03/25/19 sodium chloride 0.9 % 1 vial QID PRN #0 06/10/17 03/25/19 citalopram 40 mg PO DAILY 09/21/17 03/25/19 lisinopril 10 mg PO BID 09/21/17 03/25/19 levothyroxine 88 mcg PO DAILY 01/04/18 03/25/19 estradiol 1 mg PO DAILY 01/25/18 03/25/19 gentamicin 1 applic TOPICAL DIRECTED 05/24/18 03/25/19 omeprazole 40 mg PO DAILY 07/30/18 03/25/19 Previous Rx's Medication Instructions Recorded levofloxacin [Levaquin] 750 mg PO DAILY #6 tab 07/30/18 tramadol 50 mg PO Q6H PRN #10 tab 07/30/18 mupirocin 1 applictn TOP BID #15 gram 02/06/19 lidocaine 1 patch TOP DAILY #15 each 03/25/19 tramadol 50 mg PO Q8H PRN #10 tab 03/25/19 Allergies Allergy/AdvReac Type Severity Reaction Status Date / Time hydrocodone Allergy Intermediate RASH/HIVES Verified 03/25/19 15:58 Penicillins Allergy Intermediate RASH/HIVES Verified 03/25/19 15:58 metronidazole Allergy Mild RASH Verified 03/25/19 15:58 diphenhydramine Allergy Unknown Verified 03/25/19 15:58 [DIPHENHYDRAMINE] ibuprofen Allergy Unknown Verified 03/25/19 15:58 venom-wasp Allergy Verified 03/25/19 15:58 ranitidine AdvReac Intermediate SOB/DIZZY Verified 03/25/19 15:58 sulfamethoxazole AdvReac Mild GI UPSET Verified 03/25/19 15:58 [From Bactrim] trimethoprim [From Bactrim] AdvReac Mild GI UPSET Verified 03/25/19 15:58 fentanyl [FENTANYL] AdvReac Unknown vomiting Verified 03/25/19 15:58 ANTACIDS AdvReac Unknown Uncoded 02/28/19 18:14 Review of Systems <LORI Linares - Last Filed: 03/25/19 23:01> Review of Systems Narrative: General: Unsure of fever. Denie chills, fatigue, malaise, sweats. HEENT: Denies sinus pain, ear pain, sore throat, difficulty swallowing, dizziness. Respiratory: Reports hurts to cough and painful to take deep breaths. Reports cough and dypsnea. Denies wheezing, hemoptysis, sputum. Cardiovascular: Denies palpitations, orthopnea, edema. Reports right chest wall pain since the fall 2 days ago. Gastrointestinal: Denies nausea, vomiting, abdominal pain, diarrhea, constipation, melena. : Denies dysuria, frequency, incontinence, hematuria, urinary retention. Musculoskeletal: HPI Skin: Denies rash, skin lesions, or other. Neurologic: Denies weakness, headache, numbness, change in speech, confusion, seizures, incoordination. Psychiatric: No concerning psychosocial issues. 12-point review of systems is negative except for those stated above. Patient History <LORI Linares - Last Filed: 03/25/19 23:01> Medical History Chronic pain (Acute) Community acquired pneumonia (Resolved) Laryngeal cancer (Chronic) MRSA (methicillin resistant Staphylococcus aureus) (Acute) Otitis media, purulent, acute, with spontaneous rupture of TM (Resolved) Tracheobronchitis (Chronic) Tracheostomy complication (Acute) Surgical History History of hysterectomy (Acute) Hx of appendectomy (Acute) Social History household members: significant other Smoking Status: Former smoker alcohol intake: former Smoking Status: Former smoker alcohol intake frequency: 0-2 drinks per day Substance Use Type: does not use Exam <LORI Linares - Last Filed: 03/25/19 23:01> Narrative Exam Narrative: GEN: Alert, oriented x 3, well appearing and nourished, and in moderate distress. Head: Normal cephalic, atraumatic. No scalp or temporal tenderness, palpable mass or rash. EYES: Pupils are equal, round, and reactive to light and accommodation. Extraocular muscles are intact bilaterally. There is no subconjunctival hemorrhage, exudate and sclera non-icteric. ENT: Bilateral auditory canals and tympanic membranes clear. Hearing grossly intact. Nose without bleeding, purulent discharge or deviation. Facial sinuses nontender to palpate. Mucous membrane moist, no mucosal lesion. Neck: Trachea in midline with anterior tracheostomy inplaced. No JVD, non- tender without lymphadenopathy. No masses or thyroid megaly. Supple, non- tender and no meningeal signs. CARDIAC: Normal regular rate and rhythm without murmurs, gallops, or rubs. Tender to palpate right chest wall w/o ecchymosis, deformity, crepitus. No peripheral edema, cyanosis or pallor. Capillary refill is less than 2 seconds. RESPIRATORY: Lungs mild rhonchi bilaterally in upper lobes. Moist coughing ocassionally with audiable wheezing. No stridor, respiratory distress, increase work of breathing, or accessary muscle used. ABD: Abdomen soft, nontender and non-distended. No guarding or rebound tenderness to palpate. Bowel sounds are normal in all 4 quadrants. There is no palpable masses or organomegaly. EXT: Full painless ROM of all extremities with no loss of sensation, strength, effusion or edema. SKIN: Warm, dry, normal color for patient. No erythema, lesions or rash over visible areas. BACK: Nontender without deformity or crepitance. No flank tenderness. NEUROLOGICAL: Alert and oriented to place, time and person. Sensation and motor function intact bilaterally. No facial droops. PSYCHIATRIC: Good judgement and reason, without hallucinations, abnormal affect or abnormal behaviors during the examination. Initial Vital Signs Initial Vital Signs: Vital Signs Temperature 98.5 F 03/25/19 15:58 Pulse Rate 94 H 03/25/19 15:58 Respiratory Rate 18 03/25/19 15:58 Blood Pressure 220/104 H 03/25/19 15:58 Pulse Oximetry 95 03/25/19 15:58 <Denise Granado DO - Last Filed: 03/26/19 07:08> Initial Vital Signs Initial Vital Signs: Vital Signs Temperature 98.5 F 03/25/19 15:58 Pulse Rate 94 H 03/25/19 15:58 Respiratory Rate 18 03/25/19 15:58 Blood Pressure 220/104 H 03/25/19 15:58 Pulse Oximetry 95 03/25/19 15:58 Scores <LORI Linares - Last Filed: 03/25/19 23:01> GCS [place] coma scale eye opening: Spontaneous [place] coma scale verbal response: Orientated Jeff coma scale motor response: Obey commands Jeff coma scale total score: 15 Course <LORI Linares - Last Filed: 03/25/19 23:01> Orders Ordered: Discontinued Medications Acetaminophen (Tylenol) 975 mg PO NOW ONE Stop: 03/25/19 16:08 Last Admin: 03/25/19 16:33 Dose: 975 mg Documented by: JENNIFER Lidocaine (Lidoderm) 1 each TOP NOW ONE Stop: 03/25/19 16:08 Last Admin: 03/25/19 16:33 Dose: 1 each Documented by: JENNIFER Vital Signs Vital signs: Vital Signs - 8 hr 03/25/19 15:58 03/25/19 16:44 03/25/19 17:44 Temperature 98.5 F 98.6 F Pulse Rate 94 H 91 H 78 Respiratory Rate 18 18 20 Blood Pressure 220/104 H Blood Pressure [Left Arm] 190/97 H 180/90 H Pulse Oximetry 95 94 95 <Denise Granado DO - Last Filed: 03/26/19 07:08> Orders Ordered: Discontinued Medications Acetaminophen (Tylenol) 975 mg PO NOW ONE Stop: 03/25/19 16:08 Last Admin: 03/25/19 16:33 Dose: 975 mg Documented by: JENNIFER Lidocaine (Lidoderm) 1 each TOP NOW ONE Stop: 03/25/19 16:08 Last Admin: 03/25/19 16:33 Dose: 1 each Documented by: JENNIFER Vital Signs Vital signs: Vital Signs - 8 hr 03/25/19 15:58 03/25/19 16:44 03/25/19 17:44 Temperature 98.5 F 98.6 F Pulse Rate 94 H 91 H 78 Respiratory Rate 18 18 20 Blood Pressure 220/104 H Blood Pressure [Left Arm] 190/97 H 180/90 H Pulse Oximetry 95 94 95 MDM - Fall <LORI Linares - Last Filed: 03/25/19 23:01> Differential Diagnosis Differential diagnosis: Likely other (Rib fracture, rib contusion, pneumothorax, pneumonia) Medical Records Attestation: I reviewed the patient's medical records. Imaging Data XR-Rib RT: Radiologist's Impression: Nai Zeng 58 F [address] [address] XRay Report Signed Patient: Nai Zeng SMR#: [id number] : 1Acct:[id number] Age/Sex: 58 / FDate of Service: 03/25/19 Loc: ED Accession Number: [id number] Procedure: XR ribs RT min 3V w CXR1V Ordering Provider: Jam Garcia PROCEDURE: XR RIBS RT MIN 3V W CXR 1V INDICATIONS: R rib pain, dyspnea, fell 2 days ago TECHNIQUE: 2 views of the right ribs were acquired, along with a single view chest. COMPARISON: [facility], CR, XR CHEST 1V, 03/20/2019, 21:49. FINDINGS: Surgical changes and devices: Neck vascular clips are stable. Bones and chest wall: No fractures or dislocations. No suspicious bony lesions. Overlying soft tissues appear unremarkable. Lungs and pleura: No pleural effusions or pneumothorax. Lungs appear clear. Eventration of the right hemidiaphragm is stable. Mediastinum: Mediastinal contours appear normal. Heart size is normal. IMPRESSION: No displaced rib fracture. No acute cardiopulmonary disease process. Dictated by: Zari Lee MD, PhD on 03/25/2019 at 16:59 Approved by: Zari Lee MD, PhD on 03/25/2019 at 17:01 [facility] Narrative Medical decision making narrative: This is a 58-year-old female who presents to ED with right-sided upper chest, side pain after she fell 2 days ago. Upon arrival, the tracheostomy was suctioned and copious amount of thick brown and white mucous removed for moist cough, wheezy and rhonchi lung sounds in upper lobes. Patient reports breathing is easier after the suction and lung sounds has improved. Patient afebrile. Pain worse with coughing and movement. Chest/rib x-ray does not show acute findings such as dislocation, fracture, pneumothorax or pneumonia. Patient was medicated with lidocaine patch and Tylenol since patient drove to ED. patient reports improved discomfort after the medication and is being discharged with lidocaine patch, a few tabs of tramadol for severe pain and advised to use Tylenol. Due to patient has an allergies to ibuprofen, no Toradol was given. Patient advised to follow up with primary care physician in 2-3 days and return precautions were discussed with patient. Patient advised to take deep breath 10 times every hour when she is awake to prevent pneumonia. Patient verbalized understanding and agrees with the treatment plan. Discharge Plan Departure Patient Disposition: Home Clinical Impression: Contusion of rib on right side Qualifiers: Encounter type: initial encounter Qualified Code(s): S20.211A - Contusion of right front wall of thorax, initial encounter Discharge Date/Time: 03/25/19 17:46 Activity Restrictions/Additional Instructions: You have been diagnosed with [right rib contusion. X-ray test on ribs and chest does not show, pneumothorax, pneumonia today. You were treated with lidocaine patch and Tylenol while in ED.]. What to do: *Take your medications as directed. Please use lidocaine patch on for 12 hours and off for 12 hours. Tylenol up to 4000 mg in 24 hour period. You can take if 2 tabs of extra-strength Tylenol every 6 hours. Tramadol is only for severe pain. This can cause drowsiness so please take precaution. Do not drive, drink alcohol, or operate heavy equipments when you're taking this. You can't splint right ribs when you have to suction herself or cough to help with pain. Take deep breath about 10 times every hour to prevent pneumonia. *Follow up with your primary care provider in 2-3 days, call for an appointment. Let them know you were seen in the ED and that we asked you to be seen in follow up. *Return to ED if you have any new, worsening, or concerning symptoms, such as [increasing pain, breathing difficulty, fever, unable to tolerate fluids, or any acute concerns]. Prescriptions: New lidocaine 5 % adhesive patch,medicated 1 patch TOP DAILY Qty: 15 RF: 0 tramadol 50 mg tablet 50 mg PO Q8H PRN (Reason: severe pain) Qty: 10 RF: 0 No Action albuterol sulfate 2.5 MG/3 ML solution for nebulization 1 dose Inhalation QIDP PRN (Reason: Shortness Of Breath) Qty: 180 RF: 0 docusate sodium 100 MG capsule 100 mg PO BID Qty: 0 RF: 0 acetaminophen 325 MG tablet 325 mg PO Q6HP PRN (Reason: Pain, Moderate) Qty: 0 RF: 0 amitriptyline 25 MG tablet 25 mg PO BEDTIME Qty: 0 RF: 0 ascorbic acid (vitamin C) 500 MG tablet 500 mg PO DAILY Qty: 0 RF: 0 fexofenadine 180 MG tablet 180 mg PO DAILY Qty: 0 RF: 0 nystatin 100,000 UNIT/1 ML suspension 1 dose PO DIRECTED PRN (Reason: thrush) Qty: 0 RF: 0 sodium chloride 0.9 % 10 ML solution 1 vial QID PRN (Reason: irrigate tracheostomy) Qty: 0 RF: 0 citalopram 40 mg tablet 40 mg PO DAILY RF: 0 lisinopril 10 mg tablet 10 mg PO BID RF: 0 estradiol 1 mg tablet 1 mg PO DAILY RF: 0 omeprazole 40 mg capsule,delayed release(DR/EC) 40 mg PO DAILY RF: 0 tramadol 50 mg tablet 50 mg PO Q6H PRN (Reason: pain) Qty: 10 RF: 0 levofloxacin [Levaquin] 750 mg tablet 750 mg PO DAILY Qty: 6 RF: 0 mupirocin 2 % ointment 1 applictn TOP BID Qty: 15 RF: 0 levothyroxine 88 mcg tablet 88 mcg PO DAILY RF: 0 gentamicin 0.1 % ointment 1 applic topical DIRECTED RF: 0 Referrals: Eusebio Hammer MD [Primary Care Provider] -
[2019-03-25 17:44] VITALS: BP 180/90; PULSE 78; RESP 20; TEMP 37; O2SAT 95
== END 2019-03-25 17:46 | disposition home or self-care (01) ==
PROVIDERS: Emergency Provider Nurse Practitioner Family; PCP Internal Medicine
DX: S20.211A Contusion of right front wall of thorax, initial encounter (principal); R06.00 Dyspnea, unspecified; W19.XXXA Unspecified fall, initial encounter
CPT/HCPCS: 71101; 99283; 99284

== ENCOUNTER 2019-04-11 15:11 | Outpatient (RCR) | payer OTHER, MEDICAID, SELFPAY ==
[2018-10-27 03:00] VITALS: BMI 40.3
--- NOTE | 2019-04-11 18:16 | ST.OPPOC ---
Physical, Occupational & Speech Therapy At [facility] Visit Care Team Role Provider Type Eusebio Hammer MD Attending Provider Non-Staff Primary Care Provider Referring Provider Address: [address] [place] [address], [place], [address] Speech Pathology Plan of Care Plan of Care Dates 04/11/19-07/10/19 Short Term Goals Referral to [facility] for tracheotomy prosthesis assessment ( i.e., Passy- Miur and/or Redd-Martinez voice prostheses). Usp Goals Nai has no voice or means to communicate other than through writing. She is very limited in her ability to converse with others, express her needs, and communicate with EMS personnel, should she need to call them. Nai appears eager to communicate through an AAC device that can be personalized to meet her needs. Electronically Signed by: SAMANTHA Wells 04/11/19 [id number] Please Sign and Return: I have reviewed this Plan of Care and certify that the skilled therapy services above are required to meet the patient?s needs. Physician Signature Date Printed Name and Credentials Clinical Instructor Signature Printed Name and Credentials
--- NOTE | 2019-04-11 18:17 | ST.OPIE ---
Visit Care Team Role Provider Type Eusebio Hammer MD Attending Provider Non-Staff Primary Care Provider Referring Provider Specialty: Internal Medicine Address: [address] [place] [address], [place], [address] Email: Speech-Language Pathology Initial Evaluation PAY PER CLICK STRATEGIST Speech Generating Device Start: 04/11/19 17:38 Freq: Status: Active Protocol: Document 04/11/19 17:45 LNK (Rec: 04/11/19 18:16 LNK [id number]) Speech Generating Device Session Time Visit Start Time 15:30 Visit Stop Time 16:30 Total Visit Minutes 60 Visit Information Plan of Care Dates 04/11/19-07/10/19 Next Note Type Next Note Type Treatment Note Referral Reason for Referral AAC communication History Patient History Nai is a 58 year old female referred for determining her candidacy for AAC device. Nai had a complete laryngectomy approximately 10 years ago with radiation treatment following her surgery. Nai has a stoma with a permanent tracheotomy tube. She is nonverbal, using writing to communicate. She is here to determine if an AAC device would be appropriate for her. Subjective Obesrvations/Patient Report Nai arrived with her caregiver and her healthcare marketer, Duy Scott, who works for the [employer]. Observation Mental Status Alert,Responsive Informal Assessment Nai has no voice or means to communicate other than through writing. She is very limited in her ability to converse with others, express her needs, and communicate with EMS personnel, should she need to call them. Nai appears eager to communicate through an AAC device that can be personalized to meet her needs. Functional Assessment Hearing Not Impaired Vision Not Impaired Physical Status Not Impaired Anticipated Course of Impairment Stable Communication Abilities Cognitive-Communication WFL Spoken Language Comprehension WFL Spoken Language Expression Severe impairment Writing uses a paper tablet to write in order to communicate Daily Communication Needs Personal Needs Yes Family/Community Interaction Yes Obtain Medical Care/Participate in Yes Medical Decision Making Vocational/Educational Yes - Assessment of non-SGD Communication Gesture Simple Communication (Basic Needs) WFL Effective Complex-Communication Able with Assistance Level of Assistance Needed Minimum-Moderate - Speech Generating Device Trials Device/System Trialed iPad AAC application TouchChat was introduced to Nai and caregivers Patient/Family Response Nai was not aware of this technology available to her. She was enthused watching a demonstration of the device. She indicated many times that such a tool would be very helpful in maintaining her independence and communicating with others in a more complete manner. 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 Referrals Physical Therapy,Other Other referral for tracheostomy management/ other prosthetic devices as indicated Goals Short Term Goals Referral to [facility] for tracheostomy prosthesis assessmet ( i.e., Passy- Miur and/or Redd-Martinez voice prostheses). Assembler Camper Goals Independent communication via AAC to meet pt needs and ADLs
== END 2019-08-31 10:06 ==
LOC: SP 15:11
PROVIDERS: PCP Internal Medicine; Referring Provider Internal Medicine; Visit Provider Internal Medicine
DX: Z93.0 Tracheostomy status (principal)
CPT/HCPCS: 92607; 93010

== ENCOUNTER → 2019-04-12 15:43 | Outpatient (ROUT) | payer OTHER, MEDICAID, SELFPAY ==
[2018-10-27 03:00] VITALS: BMI 40.3
== END ==
PROVIDERS: PCP Internal Medicine; Visit Provider Internal Medicine
DX: S11.80XD Unspecified open wound of other specified part of neck, subsequent encounter (principal); L08.9 Local infection of the skin and subcutaneous tissue, unspecified
CPT/HCPCS: 87070; 87075; 87077; 87205

== ENCOUNTER → 2019-06-23 14:50 | Outpatient (ROUT) | payer OTHER, MEDICAID, SELFPAY ==
[2018-10-27 03:00] VITALS: BMI 40.3
== END ==
PROVIDERS: PCP Internal Medicine; Visit Provider Internal Medicine
DX: L08.9 Local infection of the skin and subcutaneous tissue, unspecified (principal)
CPT/HCPCS: 87070; 87075; 87205

== ENCOUNTER → 2019-06-30 12:51 | Outpatient (ROUT) | payer OTHER, MEDICAID, SELFPAY ==
[2018-10-27 03:00] VITALS: BMI 40.3
== END ==
PROVIDERS: PCP Internal Medicine; Visit Provider Internal Medicine
DX: S11.80XD Unspecified open wound of other specified part of neck, subsequent encounter (principal)
CPT/HCPCS: 87070; 87077; 87186; 87205

== ENCOUNTER 2019-07-06 20:38 | Emergency (ER) | payer OTHER, MEDICAID, SELFPAY ==
[2018-10-27 03:00] VITALS: BMI 40.3
[2019-07-06 20:47] VITALS: PULSE 81; RESP 20; TEMP 36.7; O2SAT 95
--- NOTE | 2019-07-06 20:54 | ED_ITS ---
HPI - Epistaxis General Chief complaint: Shortness of Breath/Dyspnea Stated complaint: trouble breathing Time Seen by Provider: 07/06/19 20:42 Source: patient Mode of arrival: Ambulatory Limitations: no limitations History of Present Illness HPI Narrative: 58F former smoker with history of COPD and laryngeal cancer treated at with layngectomy and radical neck dissection as well as radiation therapy and subsequent trach presents with the chief complaint of nose bleed this morning. It started while she was resting and was primarily from her right nare. She also swallowed some blood. She states it lasted for a short while and she denies any other symptoms. She's had no fever or chills. She is not dizzy, weak, or lightheaded. She denies nausea, vomiting, or diarrhea. She denies any recent illness or injury. She is followed by local primary care provider whom recently cultured a break in the skin under her trach band that noted staph. She presents with a towel and some small blood spots from her episode earlier. MD complaint: epistaxis Location: right nostril Onset (ago): hour(s) Duration: now resolved Treatment prior to arrival: nose pinching Related Data Home Medications Medication Instructions Recorded Confirmed albuterol sulfate 1 dose INHALATION QIDP PRN #180 01/25/16 03/25/19 docusate sodium 100 mg PO BID #0 01/25/16 03/25/19 acetaminophen 325 mg PO Q6HP PRN #0 10/29/16 03/25/19 amitriptyline 25 mg PO BEDTIME #0 01/22/17 03/25/19 ascorbic acid (vitamin C) 500 mg PO DAILY #0 06/10/17 03/25/19 fexofenadine 180 mg PO DAILY #0 06/10/17 03/25/19 nystatin 1 dose PO DIRECTED PRN #0 06/10/17 03/25/19 sodium chloride 0.9 % 1 vial QID PRN #0 06/10/17 03/25/19 citalopram 40 mg PO DAILY 09/21/17 03/25/19 lisinopril 10 mg PO BID 09/21/17 03/25/19 levothyroxine 88 mcg PO DAILY 01/04/18 03/25/19 estradiol 1 mg PO DAILY 01/25/18 03/25/19 gentamicin 1 applic TOPICAL DIRECTED 05/24/18 03/25/19 omeprazole 40 mg PO DAILY 07/30/18 03/25/19 Previous Rx's Medication Instructions Recorded levofloxacin [Levaquin] 750 mg PO DAILY #6 tab 07/30/18 tramadol 50 mg PO Q6H PRN #10 tab 07/30/18 mupirocin 1 applictn TOP BID #15 gram 02/06/19 lidocaine 1 patch TOP DAILY #15 each 03/25/19 tramadol 50 mg PO Q8H PRN #10 tab 03/25/19 Allergies Allergy/AdvReac Type Severity Reaction Status Date / Time hydrocodone Allergy Intermediate RASH/HIVES Verified 03/25/19 15:58 Penicillins Allergy Intermediate RASH/HIVES Verified 03/25/19 15:58 metronidazole Allergy Mild RASH Verified 03/25/19 15:58 diphenhydramine Allergy Unknown Verified 03/25/19 15:58 [DIPHENHYDRAMINE] ibuprofen Allergy Unknown Verified 03/25/19 15:58 venom-wasp Allergy Verified 03/25/19 15:58 ranitidine AdvReac Intermediate SOB/DIZZY Verified 03/25/19 15:58 sulfamethoxazole AdvReac Mild GI UPSET Verified 03/25/19 15:58 [From Bactrim] trimethoprim [From Bactrim] AdvReac Mild GI UPSET Verified 03/25/19 15:58 fentanyl [FENTANYL] AdvReac Unknown vomiting Verified 03/25/19 15:58 ANTACIDS AdvReac Unknown Uncoded 02/28/19 18:14 Review of Systems Constitutional Constitutional: Denies chills, Denies fatigue, Denies fever(s), Denies frequent falls, Denies lethargy and Denies weakness Eyes Eyes: Denies change in vision, Denies eye discharge, Denies irritation and Denies loss of vision ENT Ears, Nose, Mouth, and Throat: Denies change in voice, Denies dizziness, Reports epistaxis, Denies neck pain, Denies sore throat and Reports throat swelling Cardiovascular Cardiovascular: Denies chest pain, Denies irregular heart rhythm, Denies lightheadedness, Denies palpitations, Denies dyspnea, Denies dyspnea on exertion and Denies orthopnea Respiratory Respiratory: Denies cough, Denies dyspnea, Denies dyspnea on exertion and Denies wheezing Gastrointestinal Gastrointestinal: Denies abdominal pain, Denies change in bowel habits, Denies diarrhea, Denies nausea and Denies vomiting Genitourinary Genitourinary: Denies hematuria, Denies flank pain, Denies urinary incontinence and Denies urinary urgency Musculoskeletal Musculoskeletal: Denies back pain, Denies muscle weakness, Denies neck pain, Denies numbness and Denies tingling Integumentary/Breasts Skin/Breast: Denies pruritus, Denies erythema, Denies rash and Denies wounds Neurologic Neurologic: Denies behavioral changes, Denies confusion, Denies dizziness, Denie s frequent falls, Denies loss of vision, Denies numbness, Denies tingling and Denies weakness Psychiatric Psychiatric: Denies anxiety, Denies behavioral changes, Denies confusion, Denies depression, Denies homicidal ideation and Denies suicidal ideation Endocrine Endocrine: Denies fatigue, Denies flushing and Denies palpitations Hematologic/Lymphatic Hematologic/Lymphatic: Denies easy bruising Allergic/Immunologic Allergic/Immunologic: Denies urticaria, Reports throat swelling and Denies wheezing Patient History Social History household members: significant other Smoking Status: Former smoker alcohol intake: former Smoking Status: Former smoker alcohol intake frequency: 0-2 drinks per day Substance Use Type: does not use Exam Narrative Exam Narrative: GENERAL: [58] year old patient appears stated age. Well- nourished, well-developed patient, in mild distress. HEAD: Atraumatic. Normocephalic. EYES: Pupils equal round and reactive. Extraocular motions intact. No scleral icterus. No injection or drainage. ENT: Nose without bleeding, purulent drainage. Throat without erythema, tonsil lar hypertrophy or exudate. Airway patent.Skin break down noted on left anterior neck NECK: Trachea midline. Non tender CARDIOVASCULAR: Regular rate and rhythm without murmurs, gallops, or rubs. RESPIRATORY: Decreased lung sounds B/L with prolonged expiratory phase GASTROINTESTINAL: Abdomen soft, non-tender, nondistended. EXTREMITIES: No edema or joint tenderness. BACK: Nontender without deformity or crepitance. No flank tenderness. NEURO: AOx3. SKIN: No rash or erythema of visible areas Initial Vital Signs Initial Vital Signs: Vital Signs Temperature 98.1 F 07/06/19 20:47 Pulse Rate 81 04/29/20 20:47 Respiratory Rate 20 07/06/19 20:47 Pulse Oximetry 95 07/06/19 20:47 Procedures Epistaxis Control Time Out Performed: Yes Nostril: right Nose Prepped With: other Direct Inspection: yes Clots Removed by: suction Cautery Used: none Device Inserted: hemostatic balloon Patient Tolerated Procedure: well Course Orders Ordered: Discontinued Medications Benzocaine/Butamben/Tetracaine HCl (Cetacaine [place]) 1 spray TOP NOW ONE Stop: 07/06/19 22:59 Last Admin: 07/06/19 23:01 Dose: 1 spray Documented by: STEPHANE Dexamethasone (Decadron) 10 mg IV NOW ONE Stop: 07/06/19 21:08 Last Admin: 07/06/19 21:31 Dose: 10 mg Documented by: CHATA Hydromorphone HCl (Dilaudid) 0.5 mg IV NOW ONE Stop: 07/07/19 05:23 Last Admin: 07/07/19 05:26 Dose: 0.5 mg Documented by: STEPHANE Hydromorphone HCl (Dilaudid) 0.5 mg IV NOW ONE Stop: 07/07/19 09:11 Last Admin: 07/07/19 09:40 Dose: 0.5 mg Documented by: BTONER Hydromorphone HCl (Dilaudid) 0.5 mg IV NOW ONE Stop: 07/07/19 13:35 Last Admin: 07/07/19 13:41 Dose: 0.5 mg Documented by: BTONER Sodium Chloride (Normal Saline 0.9%) 1,000 mls @ 125 mls/hr IV CONT DAMARIS Last Infusion: 07/07/19 00:00 Dose: 0 mls/hr Documented by: Admin: 07/06/19 21:31 Dose: 125 mls/hr Documented by: CHATA Lorazepam (Ativan) 1 mg IM NOW ONE Stop: 07/06/19 23:04 Last Admin: 07/06/19 23:08 Dose: 1 mg Documented by: STEPHANE Tranexamic Acid (Cyklokapron) 1,000 mg MM NOW ONE Stop: 07/07/19 05:04 Last Admin: 07/07/19 05:27 Dose: 1,000 mg Documented by: STEPHANE Reevaluation(s) Reevaluation #1: called to see patient, blood from R nare, and spitting some up. Unable to visualize source. Cetacaine sprayed, suction and nasal speculum used. Reevaluation #2: patient resting comfortably for a few hours now, no ongoing bleeding Reevaluation #3: patient rested overnight without incident and nearly immedia tely upon getting up to use the bath room she started bleeding again, bright red blood that she is spitting up. L nare is quite small and no visual bleeding, but it is noted in her posterior pharynx. I'm unable to place a 7.5cm RhinoRocket and though at 4.5cm fits it does nothing to slow the bleeding. More cetacaine sprayed and a 14Fr hardin catheter is placed with 5mL in the balloon. This seems to slow things, ENT paged @ [phone] Consultations Consultation #1: I've discussed the case with malik PENN ([place]). He states we cannot care for this patient here as we do not have the equipment necessary to perform necessary procedure in OR. Also, given her history of radical neck and radiation he states she should go to , particularly given her history at the . Call to Transfer center. Face sheet faxed. Awaiting call back from ENT Vital Signs Vital signs: Vital Signs - 8 hr 07/07/19 00:02 07/07/19 01:32 07/07/19 05:35 Pulse Rate 80 76 85 Respiratory Rate 18 18 18 Blood Pressure [Right Arm] 136/75 131/73 134/79 Pulse Oximetry 92 94 90 L MDM - Epistaxis Lab Data Result diagrams: 07/07/19 06:40 07/06/19 21:20 Labs: Lab Results 07/06/19 07/06/19 07/06/19 Range/Units 21:20 21:20 21:20 WBC 6.5 (4.5-11.0) X10^3/uL RBC 3.90 L (4.0-5.2) X10^6/uL Hgb 11.4 L (12.0-16.0) g/dL Hct 34.2 L (36-46) % MCV 87.8 (80-100) fL MCH 29.3 (26-34) PG MCHC 33.4 (30-36) % RDW 14.6 (11.6-14.8) % Plt Count 310 (150-400) X10^3/uL Neut % (Auto) 65.4 (50-75) % Lymph % (Auto) 16.2 L (25-40) % [place] % (Auto) 11.5 (3-14) % Eos % (Auto) 5.8 H (2-4) % Baso % (Auto) 1.1 (0-2) % Neut # (Auto) 4300 (2808-7678) /uL Lymph # (Auto) 1100 (1453-7100) /uL [place] # (Auto) 700 (0-900) /uL Eos # (Auto) 400 (0-450) /uL Baso # (Auto) 100 (0-100) /uL PT (10.1-12.7) SECONDS INR (0.9-1.3) Sodium 140 (137-145) mmol/L Potassium 3.5 (3.4-5.1) mmol/L Chloride 105 (98-107) mmol/L Carbon Dioxide 27 (22-32) mmol/L BUN 15 (7-17) mg/dL Creatinine 0.57 (0.52-1.04) mg/dL Estimated GFR > 60.0 (>60) mL/min BUN/Creatinine Ratio 26.3 H (6-22) Glucose 88 (70-100) mg/dL Calcium 7.7 L (8.4-10.2) mg/dL Total Creatine Kinase 43 (30-135) U/L CK-MB (CK-2) TNP CK-MB (CK-2) Rel Index TNP Troponin I < 0.012 (0.01-0.034) ng/mL COVID-19 PCR (Negative) 07/07/19 07/07/19 07/07/19 Range/Units 00:01 06:40 06:42 WBC (4.5-11.0) X10^3/uL RBC (4.0-5.2) X10^6/uL Hgb 12.6 (12.0-16.0) g/dL Hct 37.9 (36-46) % MCV (80-100) fL MCH (26-34) PG MCHC (30-36) % RDW (11.6-14.8) % Plt Count (150-400) X10^3/uL Neut % (Auto) (50-75) % Lymph % (Auto) (25-40) % [place] % (Auto) (3-14) % Eos % (Auto) (2-4) % Baso % (Auto) (0-2) % Neut # (Auto) (5561-8136) /uL Lymph # (Auto) (5867-3069) /uL [place] # (Auto) (0-900) /uL Eos # (Auto) (0-450) /uL Baso # (Auto) (0-100) /uL PT 11.9 (10.1-12.7) SECONDS INR 1.0 (0.9-1.3) Sodium (137-145) mmol/L Potassium (3.4-5.1) mmol/L Chloride (98-107) mmol/L Carbon Dioxide (22-32) mmol/L BUN (7-17) mg/dL Creatinine (0.52-1.04) mg/dL Estimated GFR (>60) mL/min BUN/Creatinine Ratio (6-22) Glucose (70-100) mg/dL Calcium (8.4-10.2) mg/dL Total Creatine Kinase (30-135) U/L CK-MB (CK-2) CK-MB (CK-2) Rel Index Troponin I (0.01-0.034) ng/mL COVID-19 PCR Negative (Negative) Point of Care Testing Rapid Strep A Negative Imaging Data CT Soft Tissue Neck: Radiologist's Impression: Of left piriform sinus related to focal soft tissue density focus measuring 12mm. This is new finding. Considerations would include mucous versus small neoplasm. Otherwise examination Critical Care Time Critical Care Time Critical Care Time: Yes Total Critical Care Time: 35 Attestation: The high probability of a clinically significant, sudden or life threatening deterioration of the [CV] system(s) required my full and direct attention, intervention and personal management. The aggregate critical care time was [35] minutes. This time is in addition to time spent performing reported procedures but includes the following: [x] Data Review and interpretation [x] Patient assessment and monitoring of vital signs [x] Documentation [x] Medication orders and management Discharge Plan Departure Patient Disposition: [facility] Clinical Impression: Acute posterior epistaxis Discharge Date/Time: 07/07/19 14:43 Activity Restrictions/Additional Instructions: *You have been diagnosed with [right nostril nose bleed.] *What to do: * continue to take medications as directed *Follow up with [facility], call for an appointment later on today and let them know you were seen in the emergency department and we ask you to be seen in follow-up *Return to ER if you should have any new, worsening or concerning symptoms Prescriptions: No Action albuterol sulfate 2.5 MG/3 ML solution for nebulization 1 dose Inhalation QIDP PRN (Reason: Shortness Of Breath) Qty: 180 RF: 0 docusate sodium 100 MG capsule 100 mg PO BID Qty: 0 RF: 0 acetaminophen 325 MG tablet 325 mg PO Q6HP PRN (Reason: Pain, Moderate) Qty: 0 RF: 0 amitriptyline 25 MG tablet 25 mg PO BEDTIME Qty: 0 RF: 0 ascorbic acid (vitamin C) 500 MG tablet 500 mg PO DAILY Qty: 0 RF: 0 fexofenadine 180 MG tablet 180 mg PO DAILY Qty: 0 RF: 0 nystatin 100,000 UNIT/1 ML suspension 1 dose PO DIRECTED PRN (Reason: thrush) Qty: 0 RF: 0 sodium chloride 0.9 % 10 ML solution 1 vial QID PRN (Reason: irrigate tracheostomy) Qty: 0 RF: 0 citalopram 40 mg tablet 40 mg PO DAILY RF: 0 lisinopril 10 mg tablet 10 mg PO BID RF: 0 estradiol 1 mg tablet 1 mg PO DAILY RF: 0 omeprazole 40 mg capsule,delayed release(DR/EC) 40 mg PO DAILY RF: 0 tramadol 50 mg tablet 50 mg PO Q6H PRN (Reason: pain) Qty: 10 RF: 0 levofloxacin [Levaquin] 750 mg tablet 750 mg PO DAILY Qty: 6 RF: 0 mupirocin 2 % ointment 1 applictn TOP BID Qty: 15 RF: 0 levothyroxine 88 mcg tablet 88 mcg PO DAILY RF: 0 gentamicin 0.1 % ointment 1 applic topical DIRECTED RF: 0 lidocaine 5 % adhesive patch,medicated 1 patch TOP DAILY Qty: 15 RF: 0 tramadol 50 mg tablet 50 mg PO Q8H PRN (Reason: severe pain) Qty: 10 RF: 0 Referrals: Eusebio Hammer MD [Primary Care Provider] - Giorgi Bailon MD [Physician] -
[2019-07-06] MEDS: DEXAMETHASONE 10 MG/ML VIAL IV (21:31)
[2019-07-06] MEDS: SODIUM CHLORIDE 0.9% 1,000 ML 125 ML IV (21:31)
[2019-07-06 21:38] LABS: Add Manual Diff / Slide Review NO; Basophils Absolute Auto 100 /uL (0-100); Basophils Percent Auto 1.1 % (0-2); Eosinophils Absolute Auto 400 /uL (0-450); Eosinophils Percent Auto 5.8 % (2-4); Hematocrit 34.2 % (36-46); Hemoglobin 11.4 g/dL (12.0-16.0); Lymphocytes Absolute Auto 1100 /uL (1100-4500); Lymphocytes Percent Auto 16.2 % (25-40); Mean Corpuscular HGB Conc 33.4 % (30-36); Mean Corpuscular Hemoglobin 29.3 PG (26-34); Mean Corpuscular Volume 87.8 fL (80-100); Monocytes Absolute Auto 700 /uL (0-900); Monocytes Percent Auto 11.5 % (3-14); Neutrophils Absolute Auto 4300 /uL (1500-7000); Neutrophils Percent Auto 65.4 % (50-75); Platelet Count 310 X10^3/uL (150-400); Red Cell Distribution Width 14.6 % (11.6-14.8); White Blood Cell Count 6.5 X10^3/uL (4.5-11.0)
[2019-07-06 21:48] LABS: Creatine Kinase 43 U/L (30-135)
[2019-07-06 21:49] LABS: BUN Creatinine Ratio 26.3 (6-22); Blood Urea Nitrogen 15 mg/dL (7-17); Calcium 7.7 mg/dL (8.4-10.2); Carbon Dioxide 27 mmol/L (22-32); Chloride 105 mmol/L (98-107); Estimated Glomerular Filt Rate > 60.0 mL/min (>60); Glucose 88 mg/dL (70-100); HEMOLYSIS < 15 (0-50); Potassium 3.5 mmol/L (3.4-5.1); Sodium 140 mmol/L (137-145)
--- NOTE | 2019-07-06 21:55 | DI.CT.S_ITS ---
PROCEDURE: CT SOFT TISSUE NECK W CON INDICATIONS: fullness in neck, trouble swallowing, breathing, trach TECHNIQUE: After the administration of intravenous contrast, 3.0 mm axial sections acquired from the sella to the aortic arch. Additional oblique axial 3.0 mm sections acquired through the pharynx. 3 mm thick coronal and sagittal reformats were generated. For radiation dose reduction, the following was used: automated exposure control. COMPARISON: [facility], CT, CT SOFT TISSUE NECK W CON, 03/21/2019, 0:16. FINDINGS: Image quality: Excellent. Lymph nodes: No enlarged lymph nodes seen throughout the neck. Mild enlargement in the lymph node measures 1.4 cm. Slightly prominent right subpectoral lymph nodes are noted, measuring up to 7 mm in short axis. Vessels: Visualized vasculature appears patent. Neck spaces: There are postsurgical changes in the neck. There is a tracheostomy. There is soft tissue asymmetry and partial effacement of the left pisiform sinus. The oropharynx, nasopharynx, and pharynx demonstrate no mucosal lesions. The vocal cords, false vocal cords, epiglottis, vallecula, and tongue base all appear normal. Extramucosal spaces appear unremarkable. Glands: The parotid and submandibular glands appear normal. Thyroid gland is absent. Miscellaneous: Visualized brain and orbits appear normal. There is consolidation in the medial aspect of the right lung apex, likely post radiation change. Superficial soft tissues appear normal. Bones: No suspicious bony lesions. Visualized and mastoids appear unremarkable. IMPRESSION: 1. There is soft tissue asymmetry and partial effacement of the left pisiform sinus. Cannot rule out mass. Recommend laryngoscopy for further evaluation. 2. Mild mediastinal lymphadenopathy, which is indeterminate in etiology. Prominent right subpectoral lymph nodes are noted. 3. Postsurgical changes in neck. 4. Tracheostomy. No significant discrepancy with the manager shift radiology preliminary report. Dictated by: Selena Vincent M.D. on 07/07/2019 at 8:01 Approved by: Selena Vincent M.D. on 07/07/2019 at 8:11
[2019-07-06 22:00] LABS: Troponin I < 0.012 ng/mL (0.01-0.034)
[2019-07-06 22:14] VITALS: BP 127/82; PULSE 80; RESP 18; O2SAT 96
[2019-07-06] MEDS: TETRACAINE/BENZOCAINE/BUTAMBEN (CETACAINE) BOTTLE 1 SPRAY TOP (23:01)
[2019-07-06] MEDS: LORazepam 2 MG/ML INJ 1 MG IM (23:08)
[2019-07-06 23:15] VITALS: BP 134/71; PULSE 76; RESP 20; O2SAT 95
--- NOTE | 2019-07-06 23:16 | PC.NURSE ---
She had some dark red emesis after returning from ct scan,bleeding noted from right nare at the time.suction set up and ready.DR Ansari in room.R applied rhino in rt nare.tolerated well.no bleeding noted after.
[2019-07-07] VITALS (8 sets, daily range): BP systolic 121–152; BP diastolic 66–83; PULSE 70–85; RESP 18–20; TEMP 36.7; O2SAT 90–94
--- NOTE | 2019-07-07 01:16 | PC.NURSE ---
She drove herself here.She will remain in [facility] until AM when it its safe for her to drive home.
--- NOTE | 2019-07-07 05:00 | PC.NURSE ---
PT upto bathroom, began bleeding from left nare, suction provided. Dr Ansari notified and placed a 14 [place] catheter with 5ml NS balloon inflated to left nare, bleeding controlled and ENT paged.
[2019-07-07] MEDS: HYDROMORPHONE 0.5 MG INJ IV ×3 (05:26→13:41)
[2019-07-07] MEDS: TRANEXAMIC ACID 1,000 MG VIAL 1000 MG (05:27)
[2019-07-07] MEDS: TRANEXAMIC ACID 1,000 MG VIAL 1000 MG MM (05:27)
[2019-07-07 06:57] LABS: Hematocrit 37.9 % (36-46); Hemoglobin 12.6 g/dL (12.0-16.0)
[2019-07-07 07:34] LABS: COVID19 -Nasal RAPID Negative (Negative)
[2019-07-07 08:09] LABS: Prothrombin Time 11.9 SECONDS (10.1-12.7)
--- NOTE | 2019-07-07 09:03 | PC.NURSE ---
called the transfer center, the dr is currently in surgery and is to call back when he is out.
--- NOTE | 2019-07-07 09:36 | ED_ITS ---
HPI - SOB/Dyspnea General Chief Complaint: Shortness of Breath/Dyspnea Stated Complaint: trouble breathing Time Seen by Provider: 07/06/19 20:42 Source: patient Mode of arrival: Ambulatory Limitations: no limitations History of Present Illness HPI Narrative: Posterior Nasal bleed: Report provided by Dr. Ansari at 07:30. Dr. Elkins at . States that the nose bleed and her previous radical neck surgery are unrelated. The nosebleed should be treated as any other nose bleed and the ENT surgeon here should be able to take care of the bleed. Her COVID-[address] Elkins and did not accept the patient being transferred to their institution. Will call and discuss it with ENT on-call. 1010: Spoke with the office personnel for Dr. Bailon the ENT Surgeon salesperson [employer] today at [facility]. 1023: Spoke with Uvaldo Harris who will consult and see the patient. Should be transferred to [facility] and admitted and evaluated. Will call [facility]. 11:[address] Jacobs, hospitalist at [facility] who has accepted the patient being transferred and will consult Dr. Bailon ENT. Related Data Home Medications Medication Instructions Recorded Confirmed albuterol sulfate 1 dose INHALATION QIDP PRN #180 01/25/16 03/25/19 docusate sodium 100 mg PO BID #0 01/25/16 03/25/19 acetaminophen 325 mg PO Q6HP PRN #0 10/29/16 03/25/19 amitriptyline 25 mg PO BEDTIME #0 01/22/17 03/25/19 ascorbic acid (vitamin C) 500 mg PO DAILY #0 06/10/17 03/25/19 fexofenadine 180 mg PO DAILY #0 06/10/17 03/25/19 nystatin 1 dose PO DIRECTED PRN #0 06/10/17 03/25/19 sodium chloride 0.9 % 1 vial QID PRN #0 06/10/17 03/25/19 citalopram 40 mg PO DAILY 09/21/17 03/25/19 lisinopril 10 mg PO BID 09/21/17 03/25/19 levothyroxine 88 mcg PO DAILY 01/04/18 03/25/19 estradiol 1 mg PO DAILY 01/25/18 03/25/19 gentamicin 1 applic TOPICAL DIRECTED 05/24/18 03/25/19 omeprazole 40 mg PO DAILY 07/30/18 03/25/19 Previous Rx's Medication Instructions Recorded levofloxacin [Levaquin] 750 mg PO DAILY #6 tab 07/30/18 tramadol 50 mg PO Q6H PRN #10 tab 07/30/18 mupirocin 1 applictn TOP BID #15 gram 02/06/19 lidocaine 1 patch TOP DAILY #15 each 03/25/19 tramadol 50 mg PO Q8H PRN #10 tab 03/25/19 Allergies Allergy/AdvReac Type Severity Reaction Status Date / Time hydrocodone Allergy Intermediate RASH/HIVES Verified 03/25/19 15:58 Penicillins Allergy Intermediate RASH/HIVES Verified 03/25/19 15:58 metronidazole Allergy Mild RASH Verified 03/25/19 15:58 diphenhydramine Allergy Unknown Verified 03/25/19 15:58 [DIPHENHYDRAMINE] ibuprofen Allergy Unknown Verified 03/25/19 15:58 venom-wasp Allergy Verified 03/25/19 15:58 ranitidine AdvReac Intermediate SOB/DIZZY Verified 03/25/19 15:58 sulfamethoxazole AdvReac Mild GI UPSET Verified 03/25/19 15:58 [From Bactrim] trimethoprim [From Bactrim] AdvReac Mild GI UPSET Verified 03/25/19 15:58 fentanyl [FENTANYL] AdvReac Unknown vomiting Verified 03/25/19 15:58 ANTACIDS AdvReac Unknown Uncoded 02/28/19 18:14 Review of Systems Constitutional Constitutional: Denies frequent falls and Denies weakness Eyes Eyes: Denies loss of vision ENT Ears, Nose, Mouth, and Throat: Denies dizziness Musculoskeletal Musculoskeletal: Denies numbness and Denies tingling Neurologic Neurologic: Denies behavioral changes, Denies confusion, Denies dizziness, Denies frequent falls, Denies loss of vision, Denies numbness, Denies tingling and Denies weakness Psychiatric Psychiatric: Denies behavioral changes and Denies confusion Patient History Social History household members: significant other Smoking Status: Former smoker alcohol intake: former Smoking Status: Former smoker alcohol intake frequency: 0-2 drinks per day Substance Use Type: does not use Exam Initial Vital Signs Initial Vital Signs: Vital Signs Temperature 98.1 F 07/06/19 20:47 Pulse Rate 81 07/06/19 20:47 Respiratory Rate 20 07/06/19 20:47 Pulse Oximetry 95 07/06/19 20:47 Course Orders Ordered: Discontinued Medications Benzocaine/Butamben/Tetracaine HCl (Cetacaine [place]) 1 spray TOP NOW ONE Stop: 07/06/19 22:59 Last Admin: 07/06/19 23:01 Dose: 1 spray Documented by: STEPHANE Dexamethasone (Decadron) 10 mg IV NOW ONE Stop: 07/06/19 21:08 Last Admin: 07/06/19 21:31 Dose: 10 mg Documented by: CHATA Hydromorphone HCl (Dilaudid) 0.5 mg IV NOW ONE Stop: 07/07/19 05:23 Last Admin: 07/07/19 05:26 Dose: 0.5 mg Documented by: STEPHANE Hydromorphone HCl (Dilaudid) 0.5 mg IV NOW ONE Stop: 07/07/19 09:11 Last Admin: 07/07/19 09:40 Dose: 0.5 mg Documented by: LORETTAONER Hydromorphone HCl (Dilaudid) 0.5 mg IV NOW ONE Stop: 07/07/19 13:35 Last Admin: 07/07/19 13:41 Dose: 0.5 mg Documented by: BTONER Sodium Chloride (Normal Saline 0.9%) 1,000 mls @ 125 mls/hr IV CONT DAMARIS Last Infusion: 07/07/19 00:00 Dose: 0 mls/hr Documented by: Admin: 07/06/19 21:31 Dose: 125 mls/hr Documented by: CHATA Lorazepam (Ativan) 1 mg IM NOW ONE Stop: 07/06/19 23:04 Last Admin: 07/06/19 23:08 Dose: 1 mg Documented by: STEPHANE Tranexamic Acid (Cyklokapron) 1,000 mg MM NOW ONE Stop: 07/07/19 05:04 Last Admin: 07/07/19 05:27 Dose: 1,000 mg Documented by: STEPHANE Vital Signs Vital signs: Vital Signs - 8 hr 07/07/19 09:51 07/07/19 11:06 07/07/19 12:27 Temperature Pulse Rate 83 70 80 Respiratory Rate 20 18 Blood Pressure [Right Arm] 148/80 H 121/66 152/83 H Pulse Oximetry 92 93 94 07/07/19 14:43 Temperature 98.0 F Pulse Rate Respiratory Rate Blood Pressure [Right Arm] Pulse Oximetry MDM - SOB/Dyspnea Lab Data Result diagrams: 07/07/19 06:40 07/06/19 21:20 Labs: Lab Results 07/06/19 07/06/19 07/06/19 Range/Units 21:20 21:20 21:20 WBC 6.5 (4.5-11.0) X10^3/uL RBC 3.90 L (4.0-5.2) X10^6/uL Hgb 11.4 L (12.0-16.0) g/dL Hct 34.2 L (36-46) % MCV 87.8 (80-100) fL MCH 29.3 (26-34) PG MCHC 33.4 (30-36) % RDW 14.6 (11.6-14.8) % Plt Count 310 (150-400) X10^3/uL Neut % (Auto) 65.4 (50-75) % Lymph % (Auto) 16.2 L (25-40) % [place] % (Auto) 11.5 (3-14) % Eos % (Auto) 5.8 H (2-4) % Baso % (Auto) 1.1 (0-2) % Neut # (Auto) 4300 (5286-1161) /uL Lymph # (Auto) 1100 (4866-2983) /uL [place] # (Auto) 700 (0-900) /uL Eos # (Auto) 400 (0-450) /uL Baso # (Auto) 100 (0-100) /uL PT (10.1-12.7) SECONDS INR (0.9-1.3) Sodium 140 (137-145) mmol/L Potassium 3.5 (3.4-5.1) mmol/L Chloride 105 (98-107) mmol/L Carbon Dioxide 27 (22-32) mmol/L BUN 15 (7-17) mg/dL Creatinine 0.57 (0.52-1.04) mg/dL Estimated GFR > 60.0 (>60) mL/min BUN/Creatinine Ratio 26.3 H (6-22) Glucose 88 (70-100) mg/dL Calcium 7.7 L (8.4-10.2) mg/dL Total Creatine Kinase 43 (30-135) U/L CK-MB (CK-2) TNP CK-MB (CK-2) Rel Index TNP Troponin I < 0.012 (0.01-0.034) ng/mL COVID-19 PCR (Negative) 07/07/19 07/07/19 07/07/19 Range/Units 00:01 06:40 06:42 WBC (4.5-11.0) X10^3/uL RBC (4.0-5.2) X10^6/uL Hgb 12.6 (12.0-16.0) g/dL Hct 37.9 (36-46) % MCV (80-100) fL MCH (26-34) PG MCHC (30-36) % RDW (11.6-14.8) % Plt Count (150-400) X10^3/uL Neut % (Auto) (50-75) % Lymph % (Auto) (25-40) % [place] % (Auto) (3-14) % Eos % (Auto) (2-4) % Baso % (Auto) (0-2) % Neut # (Auto) (6000-2661) /uL Lymph # (Auto) (3183-7706) /uL [place] # (Auto) (0-900) /uL Eos # (Auto) (0-450) /uL Baso # (Auto) (0-100) /uL PT 11.9 (10.1-12.7) SECONDS INR 1.0 (0.9-1.3) Sodium (137-145) mmol/L Potassium (3.4-5.1) mmol/L Chloride (98-107) mmol/L Carbon Dioxide (22-32) mmol/L BUN (7-17) mg/dL Creatinine (0.52-1.04) mg/dL Estimated GFR (>60) mL/min BUN/Creatinine Ratio (6-22) Glucose (70-100) mg/dL Calcium (8.4-10.2) mg/dL Total Creatine Kinase (30-135) U/L CK-MB (CK-2) CK-MB (CK-2) Rel Index Troponin I (0.01-0.034) ng/mL COVID-19 PCR Negative (Negative) Point of Care Testing Rapid Strep A Negative Discharge Plan Departure Patient Disposition: [facility] Clinical Impression: Acute posterior epistaxis Discharge Date/Time: 07/07/19 14:43 Instructions: DI for Nosebleed Activity Restrictions/Additional Instructions: *You have been diagnosed with [right nostril nose bleed.] *What to do: * continue to take medications as directed *Follow up with [facility], call for an appointment later on today and let them know you were seen in the emergency department and we ask you to be seen in follow-up *Return to ER if you should have any new, worsening or concerning symptoms Prescriptions: No Action albuterol sulfate 2.5 MG/3 ML solution for nebulization 1 dose Inhalation QIDP PRN (Reason: Shortness Of Breath) Qty: 180 RF: 0 docusate sodium 100 MG capsule 100 mg PO BID Qty: 0 RF: 0 acetaminophen 325 MG tablet 325 mg PO Q6HP PRN (Reason: Pain, Moderate) Qty: 0 RF: 0 amitriptyline 25 MG tablet 25 mg PO BEDTIME Qty: 0 RF: 0 ascorbic acid (vitamin C) 500 MG tablet 500 mg PO DAILY Qty: 0 RF: 0 fexofenadine 180 MG tablet 180 mg PO DAILY Qty: 0 RF: 0 nystatin 100,000 UNIT/1 ML suspension 1 dose PO DIRECTED PRN (Reason: thrush) Qty: 0 RF: 0 sodium chloride 0.9 % 10 ML solution 1 vial QID PRN (Reason: irrigate tracheostomy) Qty: 0 RF: 0 citalopram 40 mg tablet 40 mg PO DAILY RF: 0 lisinopril 10 mg tablet 10 mg PO BID RF: 0 estradiol 1 mg tablet 1 mg PO DAILY RF: 0 omeprazole 40 mg capsule,delayed release(DR/EC) 40 mg PO DAILY RF: 0 tramadol 50 mg tablet 50 mg PO Q6H PRN (Reason: pain) Qty: 10 RF: 0 levofloxacin [Levaquin] 750 mg tablet 750 mg PO DAILY Qty: 6 RF: 0 mupirocin 2 % ointment 1 applictn TOP BID Qty: 15 RF: 0 levothyroxine 88 mcg tablet 88 mcg PO DAILY RF: 0 gentamicin 0.1 % ointment 1 applic topical DIRECTED RF: 0 lidocaine 5 % adhesive patch,medicated 1 patch TOP DAILY Qty: 15 RF: 0 tramadol 50 mg tablet 50 mg PO Q8H PRN (Reason: severe pain) Qty: 10 RF: 0 Referrals: Eusebio Hammer MD [Primary Care Provider] - Giorgi Bailon MD [Physician] -
--- NOTE | 2019-07-07 09:45 | CM.MNRNOTE ---
pt requested more pain medication, order rec'd and provided.
--- NOTE | 2019-07-07 14:42 | PC.NURSE ---
called [facility] for updates, requested by Nai.
--- NOTE | 2019-07-07 14:43 | PC.NURSE ---
pt had requested more pain medicine before leaving with EMS, rec'd order and provided.
== END 2019-07-07 14:43 | disposition short-term general hospital (02) ==
PROVIDERS: Emergency Medicine; Emergency Provider Emergency Medicine; PCP Internal Medicine
DX: R04.0 Epistaxis (principal)
CPT/HCPCS: 30903; 36415; 70491; 80048; 82550; 84484; 85014; 85018; 85025; 85610; 87635; 87880; 93005; 96361; 96372; 96374; 96375; 96376; 99285; 99291; J1100; J1170; J2060; Q9967

== ENCOUNTER → 2019-07-28 14:56 | Outpatient (ROUT) | payer OTHER, MEDICAID, SELFPAY ==
[2018-10-27 03:00] VITALS: BMI 40.3
== END ==
PROVIDERS: PCP Internal Medicine; Visit Provider Internal Medicine
DX: S11.80XD Unspecified open wound of other specified part of neck, subsequent encounter (principal)
CPT/HCPCS: 87070; 87075; 87077; 87205

== ENCOUNTER 2019-08-21 19:05 | Emergency (ER) | payer OTHER, MEDICAID, SELFPAY ==
[2018-10-27 03:00] VITALS: BMI 40.3
[2019-08-21 19:25] VITALS: BP 162/87; PULSE 68; RESP 22; TEMP 36.9; O2SAT 97
--- NOTE | 2019-08-21 20:05 | PC.NURSE ---
Patient reports it sounds like popping like popcorn in her ear
[2019-08-21] MEDS: ACETAMINOPHEN 325 MG TABLET 650 MG PO (20:16)
[2019-08-21] MEDS: AMOXICILLIN/CLAV 875/125 MG 1 TAB PO (20:17)
[2019-08-21] MEDS: TRAMADOL 50 MG PREPACK 1 BOTTLE MISC (20:17)
--- NOTE | 2019-08-21 20:31 | ED.EAR ---
HPI - Ear Problem <LORI Linares - Last Filed: 08/21/19 21:00> General Chief complaint: Ear Stated complaint: right ear pain and drainage Time Seen by Provider: 08/21/19 19:31 Source: patient Mode of arrival: Ambulatory Limitations: other (unable to communicate verbally but by writing due to s/p tacheostomy) History of Present Illness HPI Narrative: This is a 58 year female, former smoker, who has history of COPD and laryngeal cancer treated at with laryngectomy and radical neck dissection as well as radiation therapy with subsequent trach, otitis media with rupture of tympanic membrane cellulitis, diverticulitis, bowel obstruction and sepsis presents to ED with 4 day duration of right ear pain. Patient states she hears popping sounds in affected ear and white color liquid drainage from right ear. Patient reports decreased hearing from right ear. Patient denies fever, chills, nausea or vomiting. Patient denies recent URI symptoms or airplane travel. Patient currently takes Cande 100 daily mg daily along multiple other medications. Patient denies recent use of antibiotic medication. She has allergies to penicillin, Bactrim among other multiple allergies. Related Data Home Medications Medication Instructions Recorded Confirmed albuterol sulfate 1 dose INHALATION QIDP PRN #180 01/25/16 03/25/19 docusate sodium 100 mg PO BID #0 01/25/16 03/25/19 acetaminophen 325 mg PO Q6HP PRN #0 10/29/16 03/25/19 amitriptyline 25 mg PO BEDTIME #0 01/22/17 03/25/19 ascorbic acid (vitamin C) 500 mg PO DAILY #0 06/10/17 03/25/19 fexofenadine 180 mg PO DAILY #0 06/10/17 03/25/19 nystatin 1 dose PO DIRECTED PRN #0 06/10/17 03/25/19 sodium chloride 0.9 % 1 vial QID PRN #0 06/10/17 03/25/19 citalopram 40 mg PO DAILY 09/21/17 03/25/19 lisinopril 10 mg PO BID 09/21/17 03/25/19 levothyroxine 88 mcg PO DAILY 01/04/18 03/25/19 estradiol 1 mg PO DAILY 01/25/18 03/25/19 gentamicin 1 applic TOPICAL DIRECTED 05/24/18 03/25/19 omeprazole 40 mg PO DAILY 07/30/18 03/25/19 fexofenadine [Allergy Relief mg 08/21/19 (fexofenadine)] Previous Rx's Medication Instructions Recorded mupirocin 1 applictn TOP BID #15 gram 02/06/19 lidocaine 1 patch TOP DAILY #15 each 03/25/19 tramadol 50 mg PO Q8H PRN #10 tab 03/25/19 amoxicillin-pot clavulanate 1 tab PO BID 7 Days #14 tab 08/21/19 [Augmentin] fluticasone propionate [Flonase 1 spray NASAL BID PRN #11.1 ml 08/21/19 Allergy Relief] Allergies Allergy/AdvReac Type Severity Reaction Status Date / Time hydrocodone Allergy Intermediate RASH/HIVES Verified 03/25/19 15:58 Penicillins Allergy Intermediate RASH/HIVES Verified 03/25/19 15:58 metronidazole Allergy Mild RASH Verified 03/25/19 15:58 diphenhydramine Allergy Unknown Verified 03/25/19 15:58 [DIPHENHYDRAMINE] ibuprofen Allergy Unknown Verified 03/25/19 15:58 venom-wasp Allergy Verified 03/25/19 15:58 ranitidine AdvReac Intermediate SOB/DIZZY Verified 03/25/19 15:58 sulfamethoxazole AdvReac Mild GI UPSET Verified 03/25/19 15:58 [From Bactrim] trimethoprim [From Bactrim] AdvReac Mild GI UPSET Verified 03/25/19 15:58 fentanyl [FENTANYL] AdvReac Unknown vomiting Verified 03/25/19 15:58 ANTACIDS AdvReac Unknown Uncoded 02/28/19 18:14 Review of Systems <LORI Linares - Last Filed: 08/21/19 21:00> Review of Systems Narrative: General: Denies fever, chills, fatigue, malaise, sweats. HEENT: See HPI Respiratory: Denies dyspnea, cough, wheezing, hemoptysis, sputum. Cardiovascular: Denies chest pain, palpitations, orthopnea, edema. Gastrointestinal: Denies nausea, vomiting, abdominal pain, diarrhea, constipation, melena. : Denies dysuria, frequency, incontinence, hematuria, urinary retention. Musculoskeletal: Denies weakness, joint pain or bony pain. Skin: Denies rash, skin lesions, or other. Neurologic: Denies weakness, headache, numbness, change in speech, confusion, seizures, incoordination. Psychiatric: No concerning psychosocial issues. 12-point review of systems is negative except for those stated above. Patient History <LORI Linares - Last Filed: 08/21/19 21:00> Medical History Chronic pain (Acute) Community acquired pneumonia (Resolved) Laryngeal cancer (Chronic) MRSA (methicillin resistant Staphylococcus aureus) (Acute) Otitis media, purulent, acute, with spontaneous rupture of TM (Resolved) Tracheobronchitis (Chronic) Tracheostomy complication (Acute) Surgical History History of hysterectomy (Acute) Hx of appendectomy (Acute) Social History household members: significant other Smoking Status: Former smoker alcohol intake: former Smoking Status: Former smoker alcohol intake frequency: 0-2 drinks per day Substance Use Type: does not use Exam <LORI Linares - Last Filed: 08/21/19 21:00> Narrative Exam Narrative: GEN: Alert, oriented x 3, well appearing and nourished, and appears to be in discomfort. Head: Normal cephalic, atraumatic. No scalp or temporal tenderness, palpable mass or rash. EYES: Pupils are equal, round, and reactive to light and accommodation. Extraocular muscles are intact bilaterally. There is no subconjunctival hemorrhage, exudate and sclera non-icteric. ENT: Left ear canal clear, tympanic membrane appears to be slightly erythematous and dull. Right ear canal clear, multiple fluid/air bubbles in middle ear which appears to be clear. Exquisite tenderness during your exam. Left ear and neck feels warm to touch. Hearing grossly intact. Nose without bleeding, purulent discharge or deviation. Facial sinuses nontender to palpate. Mucous membrane moist, no mucosal lesion. Neck: Trachea in midline. No JVD, tender to palpate in anterior cervical lymph nodes. No masses or thyroid megaly. Patient has pre-existing tracheostomy. Supple and no meningeal signs. CARDIAC: Normal regular rate and rhythm without murmurs, gallops, or rubs. No chest wall tenderness. No peripheral edema, cyanosis or pallor. Capillary refill is less than 2 seconds. RESPIRATORY: Lungs are clear to auscultate bilaterally. Occasional cough through tracheostomy. No wheezes, rales, or rhonchi. No stridor, respiratory distress, increase work of breathing, or accessary muscle used. ABD: Abdomen soft, nontender and non-distended. No guarding or rebound tenderness to palpate. Bowel sounds are normal in all 4 quadrants. There is no palpable masses or organomegaly. EXT: Full painless ROM of all extremities with no loss of sensation, strength, effusion or edema. SKIN: Old dry scabs on upper bilateral arm without signs of infection. Warm, dry, normal color for patient. BACK: Nontender without deformity or crepitance. No flank tenderness. NEUROLOGICAL: Alert and oriented to place, time and person. Sensation and motor function intact bilaterally. No facial droops, dysphasia. PSYCHIATRIC: Good judgement and reason, without hallucinations, abnormal affect or abnormal behaviors during the examination. Patient is not suicidal. Initial Vital Signs Initial Vital Signs: Vital Signs Temperature 98.4 F 08/21/19 19:25 Pulse Rate 68 08/21/19 19:25 Respiratory Rate 22 08/21/19 19:25 Blood Pressure 162/87 H 08/21/19 19:25 Pulse Oximetry 97 08/21/19 19:25 <Milton De La Cruz MD - Last Filed: 08/22/19 01:51> Initial Vital Signs Initial Vital Signs: Vital Signs Temperature 98.4 F 08/21/19 19:25 Pulse Rate 68 08/21/19 19:25 Respiratory Rate 22 08/21/19 19:25 Blood Pressure 162/87 H 08/21/19 19:25 Pulse Oximetry 97 08/21/19 19:25 Scores <LORI Linares - Last Filed: 08/21/19 21:00> GCS [place] coma scale eye opening: Spontaneous Jeff coma scale verbal response: Orientated [place] coma scale motor response: Obey commands [place] coma scale total score: 15 Course <LORI Linares - Last Filed: 08/21/19 21:00> Orders Ordered: ED Orders 08/21/19 20:00 Wound Culture and Gram Stain Stat Discontinued Medications Acetaminophen (Tylenol) 650 mg PO NOW ONE Stop: 08/21/19 19:57 Last Admin: 08/21/19 20:16 Dose: 650 mg Documented by: ETTA Amoxicillin/Clavulanate Potassium (Augmentin 875-125 Mg) 1 tab PO NOW ONE Stop: 08/21/19 20:02 Last Admin: 08/21/19 20:17 Dose: 1 tab Documented by: ETTA Tramadol HCl (Ultram 50mg Prepack) 1 bottle MISC SEEINSTR ONE Stop: 08/21/19 19:57 Last Admin: 08/21/19 20:17 Dose: 1 bottle Documented by: ETTA Vital Signs Vital signs: Vital Signs - 8 hr 08/21/19 19:25 08/21/19 20:48 Temperature 98.4 F Pulse Rate 68 87 Respiratory Rate 22 18 Blood Pressure 162/87 H Blood Pressure [Right Arm] 162/87 H Pulse Oximetry 97 95 <Milton De La Cruz MD - Last Filed: 08/22/19 01:51> Orders Ordered: ED Orders 08/21/19 20:00 Wound Culture and Gram Stain Stat Discontinued Medications Acetaminophen (Tylenol) 650 mg PO NOW ONE Stop: 08/21/19 19:57 Last Admin: 08/21/19 20:16 Dose: 650 mg Documented by: ETTA Amoxicillin/Clavulanate Potassium (Augmentin 875-125 Mg) 1 tab PO NOW ONE Stop: 08/21/19 20:02 Last Admin: 08/21/19 20:17 Dose: 1 tab Documented by: ETTA Tramadol HCl (Ultram 50mg Prepack) 1 bottle MISC SEEINSTR ONE Stop: 08/21/19 19:57 Last Admin: 08/21/19 20:17 Dose: 1 bottle Documented by: ETTA Vital Signs Vital signs: Vital Signs - 8 hr 08/21/19 19:25 08/21/19 20:48 Temperature 98.4 F Pulse Rate 68 87 Respiratory Rate 22 18 Blood Pressure 162/87 H Blood Pressure [Right Arm] 162/87 H Pulse Oximetry 97 95 Medical Decision Making <LORI Linares - Last Filed: 08/21/19 21:00> Differential Diagnosis Differential Diagnosis: Otitis externa, otitis media,OM with effusion, herpes zoster Medical Records Medical records reviewed: Yes I reviewed the patient's medical records. [facility] Narrative Medical decision making narrative: Exquisite pain in right ear with warmth to palpate on outer ear and neck. Numerous tiny clear white air/fluid in the inner ear. Unable to visualize TM in L ear. left cervical lymph node tender to palpate. Right ear appears to be erythematous and dull. Patient is afebrile and does not appears to be toxic. Wound culture obtained from AC in left ear and pending. Considered herpes zoster but no other rashes appreciated during physical exam. Will treat patient as otitis media with serous/effusion with oral antibiotic medication. First dose antibiotic medication, Augmentin, was provided in ED and the remaining duration of medication has been transmitted to the pharmacy. Patient provided with Tylenol for pain management and discharged to home with prepack of trauma other since patient drove to ED. patient has allergies to penicillin and she states she had taken Augmentin without problem in the past. Patient was monitored for 20 minutes after the medication administration. Patient also discharged to home with Flonase for decongstion. Patient discharged to home with return precautions and advised to follow-up with ENT specialist Dr. Fletcher if she is not feeling better in a few days after starting antibiotic medication. Patient expressed her understanding and in agreement with the treatment plan. Discharge Plan Departure Patient Disposition: Home Clinical Impression: Otitis media Qualifiers: Otitis media type: serous Chronicity: acute Laterality: right Recurrence: not specified as recurrent Qualified Code(s): H65.01 - Acute serous otitis media, right ear Discharge Date/Time: 08/21/19 20:54 Instructions: DI for Middle Ear Infection-Adult Activity Restrictions/Additional Instructions: You have been diagnosed with [serous otitis media which is causing pain, cervical lymphnode pain, ear drainage, and decreased hearing. Wound culture from ear canal is pending.]. What to do: *Take your medications as directed. You were medicated with 1st dose of Augmentin while in ED. please take twice a day for next 7 days. Also please use Flonase 1 spray in each nostril twice a day as needed to help with congestion. Continue to use Cande daily. Augmentin has been transmitted to [facility] [place]. Please take [id number] Tylenol 650-1000 mg up to 3 to 4 times a day as needed for pain or fever. You can take tramadol that has been provided to you for severe pain when you get home. This is narcotic medications so please do not drive, drink alcohol, or operate heavy equipments. *Follow up with your primary care provider in 2-3 days, call for an appointment. If your pain does not get better please follow-up with ENT specialist Dr. Fletcher. Let them know you were seen in the ED and that we asked you to be seen in follow up. *Return to ED if you have any new, worsening, or concerning symptoms, such as [increasing pain, fever, worst hearing, chest pain, breathing difficulty, unable to tolerate fluids or any acute concerns.]. Prescriptions: New amoxicillin-pot clavulanate [Augmentin] 875-125 mg tablet 1 tab PO BID 7 Days Qty: 14 RF: 0 fluticasone propionate [Flonase Allergy Relief] 50 mcg/actuation spray,suspension 1 spray NASAL BID PRN (Reason: congestion) Qty: 11.1 RF: 0 No Action albuterol sulfate 2.5 MG/3 ML solution for nebulization 1 dose Inhalation QIDP PRN (Reason: Shortness Of Breath) Qty: 180 RF: 0 docusate sodium 100 MG capsule 100 mg PO BID Qty: 0 RF: 0 acetaminophen 325 MG tablet 325 mg PO Q6HP PRN (Reason: Pain, Moderate) Qty: 0 RF: 0 amitriptyline 25 MG tablet 25 mg PO BEDTIME Qty: 0 RF: 0 ascorbic acid (vitamin C) 500 MG tablet 500 mg PO DAILY Qty: 0 RF: 0 fexofenadine 180 MG tablet 180 mg PO DAILY Qty: 0 RF: 0 nystatin 100,000 UNIT/1 ML suspension 1 dose PO DIRECTED PRN (Reason: thrush) Qty: 0 RF: 0 sodium chloride 0.9 % 10 ML solution 1 vial QID PRN (Reason: irrigate tracheostomy) Qty: 0 RF: 0 fexofenadine [Allergy Relief (fexofenadine)] 180 mg tablet RF: 0 citalopram 40 mg tablet 40 mg PO DAILY RF: 0 lisinopril 10 mg tablet 10 mg PO BID RF: 0 estradiol 1 mg tablet 1 mg PO DAILY RF: 0 omeprazole 40 mg capsule,delayed release(DR/EC) 40 mg PO DAILY RF: 0 mupirocin 2 % ointment 1 applictn TOP BID Qty: 15 RF: 0 levothyroxine 88 mcg tablet 88 mcg PO DAILY RF: 0 gentamicin 0.1 % ointment 1 applic topical DIRECTED RF: 0 lidocaine 5 % adhesive patch,medicated 1 patch TOP DAILY Qty: 15 RF: 0 tramadol 50 mg tablet 50 mg PO Q8H PRN (Reason: severe pain) Qty: 10 RF: 0 Referrals: Eusebio Hammer MD [Primary Care Provider] - Simon Fletcher MD [Physician] -
[2019-08-21 20:48] VITALS: BP 162/87; PULSE 87; RESP 18; O2SAT 95
== END 2019-08-21 20:54 | disposition home or self-care (01) ==
PROVIDERS: Emergency Provider Nurse Practitioner Family; PCP Internal Medicine
DX: H65.01 Acute serous otitis media, right ear (principal)
CPT/HCPCS: 87070; 87075; 87077; 87147; 87186; 87205; 99283

== ENCOUNTER → 2019-09-13 17:04 | Outpatient (ROUT) | payer OTHER, MEDICAID, SELFPAY ==
[2018-10-27 03:00] VITALS: BMI 40.3
== END ==
PROVIDERS: PCP Internal Medicine; Visit Provider Internal Medicine
DX: S11.80XD Unspecified open wound of other specified part of neck, subsequent encounter (principal)
CPT/HCPCS: 87070; 87075; 87077; 87147; 87186; 87205

== ENCOUNTER 2019-10-10 14:06 | Emergency (ER) | payer OTHER, MEDICAID, SELFPAY ==
[2018-10-27 03:00] VITALS: BMI 40.3
[2019-10-10] VITALS (9 sets, daily range): BP systolic 127–134; BP diastolic 77–87; PULSE 64–78; RESP 18–22; TEMP 37.1; O2SAT 87–96; BMI 33.9
--- NOTE | 2019-10-10 14:21 | DI.RAD.S_ITS ---
PROCEDURE: XR CHEST 2V INDICATIONS: from lobby, cough TECHNIQUE: 2 views of the chest were acquired. COMPARISON: [facility], CR, XR CHEST 1V, 03/20/2019, 21:49. FINDINGS: Surgical changes and devices: Numerous surgical clips project in the base of neck. Scattered subsegmental atelectasis and/or scarring. No focal consolidation. Eventration of the right hemidiaphragm which appears unchanged . No pleural effusions or pneumothorax. Mediastinum: Mediastinal contours are normal. Heart size is normal. Bones and chest wall: No suspicious bony abnormalities. Soft tissues appear unremarkable. IMPRESSION: No acute disease Dictated by: Augusto Royal M.D. on 10/10/2019 at 14:45 Approved by: Augusto Royal M.D. on 10/10/2019 at 14:46
[2019-10-10] MEDS: ALBUTEROL/IPRATROPIUM 3 ML AMPUL INH (15:59)
[2019-10-10] MEDS: KETOROLAC 60 MG/2 ML VIAL 30 MG IV (16:09)
--- NOTE | 2019-10-10 16:13 | ED_ITS ---
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 The patient has chronic right posterior thoracic pain and rib pain. The pain is worse with coughing. The patient denies any fall or injury. She has been short of breath coughing and producing a green sputum without blood. Her discomfort became suddenly worse yesterday. She admits to history of COPD and hypertension but denies myocardial infarction and diabetes mellitus. She has chronic breakdown and irritation within abrasion that corresponds to the tracheostomy rib and. She complains that her neck pain and chest pain is 7 to 8/10 in intensity. She has had intermittent fever chills and sweats. She denies drinking alcohol or using marijuana denies smoking. She complains that her posterior ribs hurt when she is coughing. She has chronic persistent back pain. She has had no abdominal pain denies nausea and vomiting but has had diarrhea without melena hematochezia. She has had no urinary symptoms. Related Data Home Medications Medication Instructions Recorded Confirmed albuterol sulfate 1 dose INHALATION QIDP PRN #180 01/25/16 03/25/19 docusate sodium 100 mg PO BID #0 01/25/16 03/25/19 acetaminophen 325 mg PO Q6HP PRN #0 10/29/16 03/25/19 amitriptyline 25 mg PO BEDTIME #0 01/22/17 03/25/19 ascorbic acid (vitamin C) 500 mg PO DAILY #0 06/10/17 03/25/19 fexofenadine 180 mg PO DAILY #0 06/10/17 03/25/19 nystatin 1 dose PO DIRECTED PRN #0 06/10/17 03/25/19 sodium chloride 0.9 % 1 vial QID PRN #0 06/10/17 03/25/19 citalopram 40 mg PO DAILY 09/21/17 03/25/19 lisinopril 10 mg PO BID 09/21/17 03/25/19 levothyroxine 88 mcg PO DAILY 01/04/18 03/25/19 estradiol 1 mg PO DAILY 01/25/18 03/25/19 gentamicin 1 applic TOPICAL DIRECTED 05/24/18 03/25/19 omeprazole 40 mg PO DAILY 07/30/18 03/25/19 fexofenadine [Allergy Relief mg 08/21/19 (fexofenadine)] Previous Rx's Medication Instructions Recorded mupirocin 1 applictn TOP BID #15 gram 02/06/19 lidocaine 1 patch TOP DAILY #15 each 03/25/19 tramadol 50 mg PO Q8H PRN #10 tab 03/25/19 fluticasone propionate [Flonase 1 spray NASAL BID PRN #11.1 ml 08/21/19 Allergy Relief] albuterol sulfate 2.5 mg INHALATION Q4H PRN #90 ml 10/10/19 doxycycline hyclate 100 mg PO BID #20 cap 10/10/19 hydrocodone-acetaminophen [[place]] 1 tab PO Q4-6H PRN #12 tab 10/10/19 ipratropium-albuterol 3 ml INHALATION Q4H PRN #90 ml 10/10/19 prednisone 40 mg PO DAILY #10 tab 10/10/19 Allergies Allergy/AdvReac Type Severity Reaction Status Date / Time hydrocodone Allergy Intermediate RASH/HIVES Verified 10/10/19 14:29 Penicillins Allergy Intermediate RASH/HIVES Verified 10/10/19 14:29 metronidazole Allergy Mild RASH Verified 10/10/19 14:29 diphenhydramine Allergy Unknown Verified 10/10/19 14:29 [DIPHENHYDRAMINE] ibuprofen Allergy Unknown Verified 10/10/19 14:29 venom-wasp Allergy Verified 10/10/19 14:29 ranitidine AdvReac Intermediate SOB/DIZZY Verified 10/10/19 14:29 sulfamethoxazole AdvReac Mild GI UPSET Verified 10/10/19 14:29 [From Bactrim] trimethoprim [From Bactrim] AdvReac Mild GI UPSET Verified 10/10/19 14:29 fentanyl [FENTANYL] AdvReac Unknown vomiting Verified 10/10/19 14:29 ANTACIDS AdvReac Unknown Uncoded 10/10/19 14:29 Review of Systems Review of Systems Narrative: The patient is unable to speak and writes everything down her review of systems were all negative except for those mentioned in the history of the present illness. Patient History Medical History Chronic pain (Acute) Community acquired pneumonia (Resolved) Laryngeal cancer (Chronic) MRSA (methicillin resistant Staphylococcus aureus) (Acute) Otitis media, purulent, acute, with spontaneous rupture of TM (Resolved) Tracheobronchitis (Chronic) Tracheostomy complication (Acute) Surgical History History of hysterectomy (Acute) Hx of appendectomy (Acute) Social History household members: significant other Smoking Status: Former smoker alcohol intake: former Smoking Status: Former smoker alcohol intake frequency: 0-2 drinks per day Substance Use Type: does not use Exam Narrative Exam Narrative: PHYSICAL EXAM: CONSTITUTIONAL: Awake, Alert, Oriented, Coherent, Cooperative in NAD. Does not talk is status post laryngectomy with a tracheostomy. HEAD: AT/NC EENT: PERRL, FROM of eyes, no discharge, no scleral icterus NOSE:No epistaxis or nasal drainage MOUTH:Oral mucosa is moist and pink, NECK: Supple, no obvious JVD, Trachea is midline without stridor, tracheostomy in place and functioning. Tracheostomy suctioned to remove mucous The patient has a transvers band with an erosion abrasion that is raw with skin breakdown under the tracheostomy ribbons. There is no surrounding erythema or signs of cellulitis. There is clear non-purulent drainage. SPINE: Palpation of the cervical, Thoracic, Lumbar or Sacral spine reveals no gross deformity or tenderness. No CVA tenderness. THORAX: The patient's posterior and anterior right ribs are exquisitely tender to palpation without crepitus. The patient to a lesser degree has tenderness on AP compression of the left ribs.This mimicks her pain and is reproducible LUNGS: Decreased breath sounds bilaterally with inspiratory crackles no wheezes or rhonchi. Crackle improve with increased breathing . HEART: Normal heart tones, regular rhythm and rate without murmur. ABDOMEN: Soft, non-tender, normal bowel sounds without guarding, rebound, rigidity or palpable mass. EXTREMITIES: No edema, deformity, tenderness or cyanosis. SKIN: No rash, bruising, petechiae or purpura. NEURO: Awake, alert, oriented, cranial nerves II-XII are symmetrical , moves all 4 extremities and is ambulatory. Write to communicate. Initial Vital Signs Initial Vital Signs: Vital Signs Temperature 98.8 F 10/10/19 14:15 Pulse Rate 78 10/10/19 14:15 Respiratory Rate 18 10/10/19 14:15 Blood Pressure 134/77 10/10/19 14:15 Pulse Oximetry 95 10/10/19 14:15 Course Course Course Narrative: 1640: Respiratory could not provide any further history on this patient. The patient's blood gases on 28% trach mask revealed a pH is 7.401 a pCO2 of 46.3 a PO2 of 66 an oxygen saturation of 92%. Respiratory therapy states that these gases are very good for her and for anyone with COPD. 1821: The patient's chest x-ray revealed: MPRESSION: No acute disease The patient's laboratory chemistries revealed a WBC of 9.6, hemoglobin 12.1, hematocrit 36.2, ESR is 2, calcium is 8.7, CRP is 3.8, BNP is 191, procalcitonin was less than 0.05. Orders Ordered: Discontinued Medications Albuterol/Ipratropium (Duoneb) 3 ml INH NOW ONE Stop: 10/10/19 15:47 Last Admin: 10/10/19 15:59 Dose: 3 ml Documented by: LILIYA Ketorolac Tromethamine (Toradol) 30 mg IV NOW ONE Stop: 10/10/19 15:47 Last Admin: 10/10/19 16:09 Dose: 30 mg Documented by: GIORGIO Vital Signs Vital signs: Vital Signs - 8 hr 10/10/19 14:15 10/10/19 16:31 10/10/19 17:10 Temperature 98.8 F Pulse Rate 78 74 78 Respiratory Rate 18 22 Blood Pressure 134/77 Pulse Oximetry 95 94 96 10/10/19 17:18 10/10/19 17:30 10/10/19 18:00 Temperature Pulse Rate 71 76 71 Respiratory Rate Blood Pressure Pulse Oximetry 94 94 92 10/10/19 18:30 Temperature Pulse Rate 64 Respiratory Rate Blood Pressure Pulse Oximetry 91 MDM - Wound/Laceration Medical Records Attestation: I reviewed the patient's medical records. Lab Data Attestation: I reviewed the patient's lab results. Result diagrams: 10/10/19 16:05 10/10/19 16:05 Labs: Lab Results 10/10/19 10/10/19 10/10/19 Range/Units 16:05 16:05 16:05 WBC 9.6 (4.5-11.0) X10^3/uL RBC 4.07 (4.0-5.2) X10^6/uL Hgb 12.1 (12.0-16.0) g/dL Hct 36.2 (36-46) % MCV 88.9 (80-100) fL MCH 29.8 (26-34) PG MCHC 33.6 (30-36) % RDW 15.5 H (11.6-14.8) % Plt Count 273 (150-400) X10^3/uL Neut % (Auto) 69.6 (50-75) % Lymph % (Auto) 16.5 L (25-40) % [place] % (Auto) 8.0 (3-14) % Eos % (Auto) 4.7 H (2-4) % Baso % (Auto) 1.2 (0-2) % Neut # (Auto) 6600 (5826-1827) /uL Lymph # (Auto) 1600 (3432-0361) /uL [place] # (Auto) 800 (0-900) /uL Eos # (Auto) 400 (0-450) /uL Baso # (Auto) 100 (0-100) /uL ESR (0-20) MM/HR ABG pH (7.35-7.45) ABG pCO2 (35-45) mmHg ABG pO2 (80-100) mmHg ABG HCO3 (22-26) mmol/L ABG Total CO2 (21-31) mmol/L ABG O2 Saturation (95-100) % ABG Base Excess (-2-2) mmol/L FiO2 Sodium 138 (137-145) mmol/L Potassium 3.8 (3.4-5.1) mmol/L Chloride 105 (98-107) mmol/L Carbon Dioxide 29 (22-32) mmol/L BUN 14 (7-17) mg/dL Creatinine 0.55 (0.52-1.04) mg/dL Estimated GFR > 60.0 (>60) mL/min BUN/Creatinine Ratio 25.5 H (6-22) Glucose 90 (70-100) mg/dL Calcium 8.9 (8.4-10.2) mg/dL Total Creatine Kinase 46 (30-135) U/L CK-MB (CK-2) TNP CK-MB (CK-2) Rel Index TNP Troponin I < 0.012 (0.01-0.034) ng/mL C-Reactive Protein (<1.0) mg/dL NT-Pro-B Natriuret Pep 191 H (<125) pg/mL Procalcitonin (<0.5) ng/mL 10/10/19 10/10/19 10/10/19 Range/Units 16:05 16:05 16:05 WBC (4.5-11.0) X10^3/uL RBC (4.0-5.2) X10^6/uL Hgb (12.0-16.0) g/dL Hct (36-46) % MCV (80-100) fL MCH (26-34) PG MCHC (30-36) % RDW (11.6-14.8) % Plt Count (150-400) X10^3/uL Neut % (Auto) (50-75) % Lymph % (Auto) (25-40) % [place] % (Auto) (3-14) % Eos % (Auto) (2-4) % Baso % (Auto) (0-2) % Neut # (Auto) (0722-4665) /uL Lymph # (Auto) (3513-4969) /uL [place] # (Auto) (0-900) /uL Eos # (Auto) (0-450) /uL Baso # (Auto) (0-100) /uL ESR 20 (0-20) MM/HR ABG pH (7.35-7.45) ABG pCO2 (35-45) mmHg ABG pO2 (80-100) mmHg ABG HCO3 (22-26) mmol/L ABG Total CO2 (21-31) mmol/L ABG O2 Saturation (95-100) % ABG Base Excess (-2-2) mmol/L FiO2 Sodium (137-145) mmol/L Potassium (3.4-5.1) mmol/L Chloride (98-107) mmol/L Carbon Dioxide (22-32) mmol/L BUN (7-17) mg/dL Creatinine (0.52-1.04) mg/dL Estimated GFR (>60) mL/min BUN/Creatinine Ratio (6-22) Glucose (70-100) mg/dL Calcium (8.4-10.2) mg/dL Total Creatine Kinase (30-135) U/L CK-MB (CK-2) CK-MB (CK-2) Rel Index Troponin I (0.01-0.034) ng/mL C-Reactive Protein 3.8 H (<1.0) mg/dL NT-Pro-B Natriuret Pep (<125) pg/mL Procalcitonin < 0.05 (<0.5) ng/mL 10/10/19 Range/Units 16:27 WBC (4.5-11.0) X10^3/uL RBC (4.0-5.2) X10^6/uL Hgb (12.0-16.0) g/dL Hct (36-46) % MCV (80-100) fL MCH (26-34) PG MCHC (30-36) % RDW (11.6-14.8) % Plt Count (150-400) X10^3/uL Neut % (Auto) (50-75) % Lymph % (Auto) (25-40) % [place] % (Auto) (3-14) % Eos % (Auto) (2-4) % Baso % (Auto) (0-2) % Neut # (Auto) (7470-9333) /uL Lymph # (Auto) (4119-5673) /uL [place] # (Auto) (0-900) /uL Eos # (Auto) (0-450) /uL Baso # (Auto) (0-100) /uL ESR (0-20) MM/HR ABG pH 7.40 (7.35-7.45) ABG pCO2 46.3 H (35-45) mmHg ABG pO2 66 L (80-100) mmHg ABG HCO3 29 H (22-26) mmol/L ABG Total CO2 30 (21-31) mmol/L ABG O2 Saturation 92 L (95-100) % ABG Base Excess 4.0 H (-2-2) mmol/L FiO2 28 Sodium (137-145) mmol/L Potassium (3.4-5.1) mmol/L Chloride (98-107) mmol/L Carbon Dioxide (22-32) mmol/L BUN (7-17) mg/dL Creatinine (0.52-1.04) mg/dL Estimated GFR (>60) mL/min BUN/Creatinine Ratio (6-22) Glucose (70-100) mg/dL Calcium (8.4-10.2) mg/dL Total Creatine Kinase (30-135) U/L CK-MB (CK-2) CK-MB (CK-2) Rel Index Troponin I (0.01-0.034) ng/mL C-Reactive Protein (<1.0) mg/dL NT-Pro-B Natriuret Pep (<125) pg/mL Procalcitonin (<0.5) ng/mL ECG Data Attestation: I personally reviewed and interpreted this ECG as follows: Interpretation: The patient's EKG obtained at 4:12 p.m. revealed a sinus rhythm with a ventricular rate of 72. ME interval is normal at 175 milliseconds QRS is 99 milliseconds duration QTC is 487 millisecond slightly prolonged. [place] is normal. The patient has a Q-wave in lead III and a QS wave in lead V1 and a QS wave in V2. T-waves in V1 are inverted without any other T-wave inversions appreciated. The patient has a flat T-wave in aVL. The Q-waves in leads V1 and V2 suggest the possibility of a septal LA age indeterminate. There are nonspecific ST segment changes in the precordial leads. Pacemaker model: -- Discharge Plan Departure Patient Disposition: Home Clinical Impression: COPD exacerbation, Chest wall pain Tracheostomy complication Qualifiers: Tracheostomy complication: unspecified Qualified Code(s): J95.00 - Unspecified tracheostomy complication Abrasion of neck Qualifiers: Encounter type: subsequent encounter Qualified Code(s): S10.91XD - Abrasion of unspecified part of neck, subsequent encounter Discharge Date/Time: 10/10/19 20:01 Instructions: DI for Chronic Obstructive Pulmonary Disease, DI for Costochondritis, DI for Abrasion, Skin Wound Activity Restrictions/Additional Instructions: 1. Follow-up with your primary care physician in 48-72 hours to be re-evaluated and adjust your medications as needed. 2. 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 Follow-up with them to appropriately bandaged cushion to try and prevent the abrasions and rubbing that is causing the breakdown of your skin. At this time you do not have any signs of an infection or cellulitis. However that does not mean that it cannot developed. If you develop. Huma drainage erythema and redness you need to return to the emergency department or follow-up with your doctors. 3 for your chest wall rib pain you need to take the [place] 5/325 every 4-6 hours as needed for the pain and discomfort. 4. Prednisone 40 mg will help with the inflammation pain and discomfort of your ribs and help with your breathing and prevent you from coughing. Take as d irected for the next 5 days. 5. Take the doxycycline 100 mg twice a day which will help to prevent any infection from developing in the area of the abrasions as well as help with your COPD and breathing. 6. Take the DuoNeb breathing treatments ( Ipratropium/ albuterol) every 4-6 hours as your based treatment for your COPD. 7. Take the albuterol breathing treatments every 2-4 hours in between the duoneb breathing treatments for increased coughing wheezing and shortness of breath. 8. If you develop persistent nausea and vomiting such as urine unable to keep any medications down high fever, feeling faint dizzy and lightheaded as though the pass out you need to return to the emergency department. Prescriptions: New prednisone 20 mg tablet 40 mg PO DAILY Qty: 10 RF: 0 doxycycline hyclate 100 mg capsule 100 mg PO BID Qty: 20 RF: 0 hydrocodone-acetaminophen [[place]] 5-325 mg tablet 1 tab PO Q4-6H PRN (Reason: pain) Qty: 12 RF: 0 ipratropium-albuterol 0.5 mg-3 mg(2.5 mg base)/3 mL solution for nebulization 3 ml INHALATION Q4H PRN (Reason: shortness of breath or wheezing) Qty: 90 RF: 0 albuterol sulfate 2.5 mg /3 mL (0.083 %) solution for nebulization 2.5 mg INHALATION Q4H PRN (Reason: shortness of breath or wheezing) Qty: 90 RF: 0 No Action albuterol sulfate 2.5 MG/3 ML solution for nebulization 1 dose Inhalation QIDP PRN (Reason: Shortness Of Breath) Qty: 180 RF: 0 docusate sodium 100 MG capsule 100 mg PO BID Qty: 0 RF: 0 acetaminophen 325 MG tablet 325 mg PO Q6HP PRN (Reason: Pain, Moderate) Qty: 0 RF: 0 amitriptyline 25 MG tablet 25 mg PO BEDTIME Qty: 0 RF: 0 ascorbic acid (vitamin C) 500 MG tablet 500 mg PO DAILY Qty: 0 RF: 0 fexofenadine 180 MG tablet 180 mg PO DAILY Qty: 0 RF: 0 nystatin 100,000 UNIT/1 ML suspension 1 dose PO DIRECTED PRN (Reason: thrush) Qty: 0 RF: 0 sodium chloride 0.9 % 10 ML solution 1 vial QID PRN (Reason: irrigate tracheostomy) Qty: 0 RF: 0 fexofenadine [Allergy Relief (fexofenadine)] 180 mg tablet RF: 0 citalopram 40 mg tablet 40 mg PO DAILY RF: 0 lisinopril 10 mg tablet 10 mg PO BID RF: 0 estradiol 1 mg tablet 1 mg PO DAILY RF: 0 omeprazole 40 mg capsule,delayed release(DR/EC) 40 mg PO DAILY RF: 0 mupirocin 2 % ointment 1 applictn TOP BID Qty: 15 RF: 0 fluticasone propionate [Flonase Allergy Relief] 50 mcg/actuation spray,suspension 1 spray NASAL BID PRN (Reason: congestion) Qty: 11.1 RF: 0 levothyroxine 88 mcg tablet 88 mcg PO DAILY RF: 0 gentamicin 0.1 % ointment 1 applic topical DIRECTED RF: 0 lidocaine 5 % adhesive patch,medicated 1 patch TOP DAILY Qty: 15 RF: 0 tramadol 50 mg tablet 50 mg PO Q8H PRN (Reason: severe pain) Qty: 10 RF: 0 Referrals: Eusebio Hammer MD [Primary Care Provider] -
[2019-10-10 16:19] LABS: Add Manual Diff / Slide Review NO; Basophils Absolute Auto 100 /uL (0-100); Basophils Percent Auto 1.2 % (0-2); Eosinophils Absolute Auto 400 /uL (0-450); Eosinophils Percent Auto 4.7 % (2-4); Hematocrit 36.2 % (36-46); Hemoglobin 12.1 g/dL (12.0-16.0); Lymphocytes Absolute Auto 1600 /uL (1100-4500); Lymphocytes Percent Auto 16.5 % (25-40); Mean Corpuscular HGB Conc 33.6 % (30-36); Mean Corpuscular Hemoglobin 29.8 PG (26-34); Mean Corpuscular Volume 88.9 fL (80-100); Monocytes Absolute Auto 800 /uL (0-900); Neutrophils Absolute Auto 6600 /uL (1500-7000); Neutrophils Percent Auto 69.6 % (50-75); Platelet Count 273 X10^3/uL (150-400); Red Blood Cell Count 4.07 X10^6/uL (4.0-5.2); Red Cell Distribution Width 15.5 % (11.6-14.8); White Blood Cell Count 9.6 X10^3/uL (4.5-11.0)
[2019-10-10 16:37] LABS: BUN Creatinine Ratio 25.5 (6-22); Blood Urea Nitrogen 14 mg/dL (7-17); Calcium 8.9 mg/dL (8.4-10.2); Carbon Dioxide 29 mmol/L (22-32); Chloride 105 mmol/L (98-107); Creatine Kinase 46 U/L (30-135); Estimated Glomerular Filt Rate > 60.0 mL/min (>60); Glucose 90 mg/dL (70-100); HEMOLYSIS < 15 (0-50); Potassium 3.8 mmol/L (3.4-5.1); Sodium 138 mmol/L (137-145)
[2019-10-10 16:39] LABS: C-Reactive Protein Quant 3.8 mg/dL (<1.0)
[2019-10-10 16:43] LABS: Fractionated Inspired Oxygen 28; HCO3 ABG 29 mmol/L (22-26); Oxygen Saturation ABG 92 % (95-100); PCO2 ABG 46.3 mmHg (35-45); PO2 ABG 66 mmHg (80-100); TCO2 ABG 30 mmol/L (21-31)
[2019-10-10 16:46] LABS: NT-proBNP (BNP-Adult 18+) 191 pg/mL (<125)
[2019-10-10 16:48] LABS: Troponin I < 0.012 ng/mL (0.01-0.034)
[2019-10-10 16:50] LABS: Erythrocyte Sedimentation Rate 20 MM/HR (0-20)
[2019-10-10 17:06] LABS: Procalcitonin < 0.05 ng/mL (<0.5)
== END 2019-10-10 20:01 | disposition home or self-care (01) ==
PROVIDERS: Emergency Provider Emergency Medicine; PCP Internal Medicine
DX: J44.1 Chronic obstructive pulmonary disease with (acute) exacerbation (principal); J95.00 Unspecified tracheostomy complication; S10.91XA Abrasion of unspecified part of neck, initial encounter; R07.89 Other chest pain; R07.81 Pleurodynia; R05 Cough; M54.9 Dorsalgia, unspecified
CPT/HCPCS: 36600; 71046; 80048; 82550; 82805; 83880; 84145; 84484; 85025; 85651; 86140; 93005; 94640; 94799; 96374; 99284; 99285; J1885

== ENCOUNTER 2019-10-14 14:23 | Emergency (ER) | payer OTHER, MEDICAID, SELFPAY ==
[2018-10-27 03:00] VITALS: BMI 40.3
[2019-10-14 14:29] VITALS: BP 102/56; PULSE 78; RESP 17; TEMP 36.8; O2SAT 98
--- NOTE | 2019-10-14 14:41 | ED_ITS ---
HPI - Allergic Reaction General Chief complaint: Allergic Reaction Stated complaint: Allergic reaction Time Seen by Provider: 10/14/19 14:28 Source: EMS Mode of arrival: EMS Limitations: no limitations History of Present Illness HPI narrative: Patient is a 59-year-old female with chronic trach presenting with allergic reaction. She says she was possibly stung by a bee behind her ear she is allergic to bees. She is quite sensitive around her ear but there is actually no erythema or swelling she said that her throat was closing but she has a permanent trach. She she received epinephrine through an IV in the hand which infiltrated and now complains that her hand is slightly cool. She has no rash no difficulty breathing she appears comfortable is MD complaint: allergic reaction Exposure: insect bite Related Data Home Medications Medication Instructions Recorded Confirmed albuterol sulfate 1 dose INHALATION QIDP PRN #180 01/25/16 03/25/19 docusate sodium 100 mg PO BID #0 01/25/16 03/25/19 acetaminophen 325 mg PO Q6HP PRN #0 10/29/16 03/25/19 amitriptyline 25 mg PO BEDTIME #0 01/22/17 03/25/19 ascorbic acid (vitamin C) 500 mg PO DAILY #0 06/10/17 03/25/19 fexofenadine 180 mg PO DAILY #0 06/10/17 03/25/19 nystatin 1 dose PO DIRECTED PRN #0 06/10/17 03/25/19 sodium chloride 0.9 % 1 vial QID PRN #0 06/10/17 03/25/19 citalopram 40 mg PO DAILY 09/21/17 03/25/19 lisinopril 10 mg PO BID 09/21/17 03/25/19 levothyroxine 88 mcg PO DAILY 01/04/18 03/25/19 estradiol 1 mg PO DAILY 01/25/18 03/25/19 gentamicin 1 applic TOPICAL DIRECTED 05/24/18 03/25/19 omeprazole 40 mg PO DAILY 07/30/18 03/25/19 fexofenadine [Allergy Relief mg 08/21/19 (fexofenadine)] Previous Rx's Medication Instructions Recorded mupirocin 1 applictn TOP BID #15 gram 02/06/19 lidocaine 1 patch TOP DAILY #15 each 03/25/19 tramadol 50 mg PO Q8H PRN #10 tab 03/25/19 fluticasone propionate [Flonase 1 spray NASAL BID PRN #11.1 ml 08/21/19 Allergy Relief] albuterol sulfate 2.5 mg INHALATION Q4H PRN #90 ml 10/10/19 doxycycline hyclate 100 mg PO BID #20 cap 10/10/19 hydrocodone-acetaminophen [[place]] 1 tab PO Q4-6H PRN #12 tab 10/10/19 ipratropium-albuterol 3 ml INHALATION Q4H PRN #90 ml 10/10/19 prednisone 40 mg PO DAILY #10 tab 10/10/19 epinephrine 0.3 mg IM Q5-15M PRN #1 each 10/14/19 Allergies Allergy/AdvReac Type Severity Reaction Status Date / Time hydrocodone Allergy Intermediate RASH/HIVES Verified 10/14/19 14:41 Penicillins Allergy Intermediate RASH/HIVES Verified 10/14/19 14:41 metronidazole Allergy Mild RASH Verified 10/14/19 14:41 diphenhydramine Allergy Unknown Verified 10/14/19 14:41 [DIPHENHYDRAMINE] ibuprofen Allergy Unknown Verified 10/14/19 14:41 venom-wasp Allergy Verified 10/14/19 14:41 ranitidine AdvReac Intermediate SOB/DIZZY Verified 10/14/19 14:41 sulfamethoxazole AdvReac Mild GI UPSET Verified 10/14/19 14:41 [From Bactrim] trimethoprim [From Bactrim] AdvReac Mild GI UPSET Verified 10/14/19 14:41 fentanyl [FENTANYL] AdvReac Unknown vomiting Verified 10/14/19 14:41 ANTACIDS AdvReac Unknown Uncoded 10/14/19 14:41 Review of Systems Review of Systems Narrative: GENERAL: Denies chills, fatigue, malaise, fever, sweats, travel HEENT: Denies sinus pain, ear pain, sore throat, difficulty swallowing, neck pain RESPIRATORY: See HPI CARDIOVASCULAR: Denies chest pain, palpitations, orthopnea, edema GASTROINTESTINAL: Denies nausea, vomiting, abdominal pain, diarrhea, constipation, melena. : Denies dysuria, frequency, incontinence, hematuria, urinary retention, flank pain. MUSCULOSKELETAL: Denies weakness, joint pain, or bony pain SKIN: No rash, no erythema, no pruritus NEUROLOGIC: Denies weakness, dizziness, headache, numbness, change in speech, confusion PSYCHIATRIC: No concerning psychosocial issues. 12 point review of systems is negative except for those stated above and HPI Patient History Medical History Chronic pain (Acute) Community acquired pneumonia (Resolved) Laryngeal cancer (Chronic) MRSA (methicillin resistant Staphylococcus aureus) (Acute) Otitis media, purulent, acute, with spontaneous rupture of TM (Resolved) Tracheobronchitis (Chronic) Tracheostomy complication (Acute) Surgical History History of hysterectomy (Acute) Hx of appendectomy (Acute) Social History household members: significant other Smoking Status: Former smoker alcohol intake: former Smoking Status: Former smoker alcohol intake frequency: 0-2 drinks per day Substance Use Type: does not use Exam Initial Vital Signs Initial Vital Signs: Vital Signs Temperature 98.2 F 10/14/19 14:29 Pulse Rate 78 10/14/19 14:29 Respiratory Rate 17 10/14/19 14:29 Blood Pressure 102/56 L 10/14/19 14:29 Pulse Oximetry 98 10/14/19 14:29 GENERAL: [Well-appearing, well-nourished] and in [no acute] distress. HEENT: Head atraumatic,EOMI, pupils reactive, face symmetric, trach present, no tongue or lip swelling appreciated CARDIOVASCULAR: Regular rate and rhythm without murmurs, rubs or gallops. RESPIRATORY: Breath sounds equal bilaterally, no wheezes rales or rhonchi. No stridor ABDOMEN: Soft, nontender. Normoactive bowel sounds all 4 quadrants. No guarding or rebound. EXTREMITIES: Normal range of motion, no clubbing or edema. Neurovascularly intact Left hand IV is placed good peripheral radial pulse cap refill in every fingertips is less than 2 seconds hand feels warm but she feels like it is sensitive to touch and is cool NEUROLOGICAL: Alert and oriented x4.Normal gait and speech. Cranial nerves II through XII grossly intact. SKIN: Warm, dry, no laceration, no petechiae, no rashes or lesions. Course Orders Ordered: Discontinued Medications Acetaminophen (Tylenol) 650 mg PO NOW ONE Stop: 10/14/19 14:58 Last Admin: 10/14/19 15:12 Dose: 650 mg Documented by: GIORGIO Prednisone (Deltasone) 40 mg PO NOW ONE Stop: 10/14/19 14:58 Last Admin: 10/14/19 15:12 Dose: 40 mg Documented by: GIORGIO Vital Signs Vital signs: Vital Signs - 8 hr 10/14/19 14:29 10/14/19 14:44 10/14/19 16:15 Temperature 98.2 F Pulse Rate 78 68 Respiratory Rate 17 18 Blood Pressure 102/56 L 102/56 L Pulse Oximetry 98 93 93 10/14/19 16:23 Temperature Pulse Rate 68 Respiratory Rate Blood Pressure 102/56 L Pulse Oximetry 93 MDM - Allergic Reaction MDM Narrative Medical decision making narrative: Patient has no real sign of anaphylaxis she also has a permanent trach and does not have airway compromise. Her hand is warm to touch with good peripheral pulses and good cap refill despite subcutaneous epinephrine. She is given a dose prednisone she has renal no sign of allergic reaction either. I have given her prescription for an epinephrine pen. Discharge Plan Departure Patient Disposition: Home Clinical Impression: Allergic reaction Qualifiers: Encounter type: initial encounter Qualified Code(s): T78.40XA - Allergy, unspecified, initial encounter Discharge Date/Time: 10/14/19 16:15 Instructions: DI for General Allergic Reactions Activity Restrictions/Additional Instructions: *You have been diagnosed with allergic reaction *What to do: No sign of significant allergic reaction. Your hand should start to feel warmer as the medicine wears off there is no significant circulation compromise at this time. *Continue to take medications as directed-->SENT TO [facility] only if needed for severe allergic reaction and tongue lip or throat swelling *Follow up with your primary care provider in 2-3 days *Return to ER if you should have any new, worsening or concerning symptoms Prescriptions: New epinephrine 0.3 mg/0.3 mL auto-injector 0.3 mg IM Q5-15M PRN (Reason: anaphylaxis) Qty: 1 RF: 0 No Action albuterol sulfate 2.5 MG/3 ML solution for nebulization 1 dose Inhalation QIDP PRN (Reason: Shortness Of Breath) Qty: 180 RF: 0 docusate sodium 100 MG capsule 100 mg PO BID Qty: 0 RF: 0 acetaminophen 325 MG tablet 325 mg PO Q6HP PRN (Reason: Pain, Moderate) Qty: 0 RF: 0 amitriptyline 25 MG tablet 25 mg PO BEDTIME Qty: 0 RF: 0 ascorbic acid (vitamin C) 500 MG tablet 500 mg PO DAILY Qty: 0 RF: 0 fexofenadine 180 MG tablet 180 mg PO DAILY Qty: 0 RF: 0 nystatin 100,000 UNIT/1 ML suspension 1 dose PO DIRECTED PRN (Reason: thrush) Qty: 0 RF: 0 sodium chloride 0.9 % 10 ML solution 1 vial QID PRN (Reason: irrigate tracheostomy) Qty: 0 RF: 0 fexofenadine [Allergy Relief (fexofenadine)] 180 mg tablet RF: 0 citalopram 40 mg tablet 40 mg PO DAILY RF: 0 lisinopril 10 mg tablet 10 mg PO BID RF: 0 estradiol 1 mg tablet 1 mg PO DAILY RF: 0 omeprazole 40 mg capsule,delayed release(DR/EC) 40 mg PO DAILY RF: 0 mupirocin 2 % ointment 1 applictn TOP BID Qty: 15 RF: 0 fluticasone propionate [Flonase Allergy Relief] 50 mcg/actuation spray,suspension 1 spray NASAL BID PRN (Reason: congestion) Qty: 11.1 RF: 0 levothyroxine 88 mcg tablet 88 mcg PO DAILY RF: 0 gentamicin 0.1 % ointment 1 applic topical DIRECTED RF: 0 lidocaine 5 % adhesive patch,medicated 1 patch TOP DAILY Qty: 15 RF: 0 tramadol 50 mg tablet 50 mg PO Q8H PRN (Reason: severe pain) Qty: 10 RF: 0 prednisone 20 mg tablet 40 mg PO DAILY Qty: 10 RF: 0 doxycycline hyclate 100 mg capsule 100 mg PO BID Qty: 20 RF: 0 hydrocodone-acetaminophen [[place]] 5-325 mg tablet 1 tab PO Q4-6H PRN (Reason: pain) Qty: 12 RF: 0 ipratropium-albuterol 0.5 mg-3 mg(2.5 mg base)/3 mL solution for nebulization 3 ml INHALATION Q4H PRN (Reason: shortness of breath or wheezing) Qty: 90 RF: 0 albuterol sulfate 2.5 mg /3 mL (0.083 %) solution for nebulization 2.5 mg INHALATION Q4H PRN (Reason: shortness of breath or wheezing) Qty: 90 RF: 0 Referrals: Eusebio Hammer MD [Primary Care Provider] -
[2019-10-14 14:44] VITALS: RESP 18; O2SAT 93
[2019-10-14] MEDS: predniSONE 20 MG TABLET 40 MG PO (15:12)
[2019-10-14] MEDS: ACETAMINOPHEN 325 MG TABLET 650 MG PO (15:12)
[2019-10-14 16:15] VITALS: BP 102/56; PULSE 68; O2SAT 93
[2019-10-14 16:23] VITALS: BP 102/56; PULSE 68; O2SAT 93
== END 2019-10-14 16:15 | disposition home or self-care (01) ==
PROVIDERS: Emergency Provider Emergency Medicine; PCP Internal Medicine
DX: T78.40XA Allergy, unspecified, initial encounter (principal); W57.XXXA Bitten or stung by nonvenomous insect and other nonvenomous arthropods, initial encounter
CPT/HCPCS: 94799; 99283

== ENCOUNTER 2019-10-21 19:56 | Emergency (ER) | payer OTHER, MEDICAID, SELFPAY ==
[2018-10-27 03:00] VITALS: BMI 40.3
[2019-10-21 20:04] VITALS: BP 166/86; PULSE 77; RESP 22; TEMP 36.3; O2SAT 98
--- NOTE | 2019-10-21 20:04 | DI.RAD.S_ITS ---
PROCEDURE: XR CHEST 1V INDICATIONS: Flu like symptoms TECHNIQUE: One view of the chest was acquired. COMPARISON: [facility], CR, XR CHEST 2V, 10/10/2019, 13:26. FINDINGS: Surgical changes and devices: Surgical clips are seen over the neck. A tracheostomy is present. Lungs and pleura: Lungs are clear. No pleural effusions or pneumothorax. Mediastinum: Mediastinal contours appear normal. Heart size is normal. Bones and chest wall: No suspicious bony lesions. Overlying soft tissues appear unremarkable. IMPRESSION: No acute abnormality is identified in the chest. Dictated by: Jerrell Bonilla M.D. on 10/21/2019 at 21:21 Approved by: Jerrell Bonilla M.D. on 10/21/2019 at 21:22
[2019-10-21] MEDS: HYDROMORPHONE 1 MG INJ IV ×2 (20:27→21:58)
[2019-10-21 22:00] VITALS: BP 130/63; PULSE 62; RESP 24; TEMP 36.3; O2SAT 98
[2019-10-21 22:20] LABS: Add Manual Diff / Slide Review NO; Basophils Absolute Auto 0 /uL (0-100); Basophils Percent Auto 0.3 % (0-2); Eosinophils Absolute Auto 400 /uL (0-450); Eosinophils Percent Auto 4.4 % (2-4); Hematocrit 36.6 % (36-46); Hemoglobin 12.1 g/dL (12.0-16.0); Lymphocytes Absolute Auto 800 /uL (1100-4500); Lymphocytes Percent Auto 9.8 % (25-40); Mean Corpuscular Hemoglobin 29.6 PG (26-34); Mean Corpuscular Volume 89.7 fL (80-100); Monocytes Absolute Auto 700 /uL (0-900); Monocytes Percent Auto 8.5 % (3-14); Neutrophils Absolute Auto 6400 /uL (1500-7000); Platelet Count 235 X10^3/uL (150-400); Red Blood Cell Count 4.07 X10^6/uL (4.0-5.2); Red Cell Distribution Width 15.4 % (11.6-14.8); White Blood Cell Count 8.3 X10^3/uL (4.5-11.0)
[2019-10-21 22:21] LABS: Prothrombin Time 11.1 SECONDS (10.1-12.7)
[2019-10-21 22:26] LABS: Alanine Aminotransferase 12 IU/L (<35); Albumin 3.6 g/dL (3.5-5.0); Albumin Globulin Ratio 1.5 (1.0-2.8); Alkaline Phosphatase 64 U/L (38-126); Aspartate Aminotransferase 19 IU/L (14-36); Bilirubin Total 0.4 mg/dL (0.2-1.3); Blood Urea Nitrogen 18 mg/dL (7-17); Calcium 8.1 mg/dL (8.4-10.2); Carbon Dioxide 25 mmol/L (22-32); Chloride 106 mmol/L (98-107); Estimated Glomerular Filt Rate > 60.0 mL/min (>60); Globulin 2.4 g/dL (1.7-4.1); Glucose 89 mg/dL (70-100); HEMOLYSIS < 15 (0-50); Potassium 3.6 mmol/L (3.4-5.1); Sodium 136 mmol/L (137-145)
--- NOTE | 2019-10-21 22:28 | PC.NURSE ---
Patient with trach c/o shortness of breath;
[2019-10-21 22:31] VITALS: BP 115/55; PULSE 67; RESP 40; O2SAT 95
[2019-10-21 22:42] LABS: Lactate (Lactic Acid) 1.2 mmol/L (0.7-2.1)
[2019-10-21 22:47] LABS: NT-proBNP (BNP-Adult 18+) 160 pg/mL (<125)
--- NOTE | 2019-10-21 22:58 | ED_ITS ---
HPI - URI/Sore Throat General Chief Complaint: Upper Respiratory Symptoms Stated Complaint: Difficulty breathing Time Seen by Provider: 10/21/19 19:57 Source: patient and EMS Mode of arrival: EMS Limitations: no limitations History of Present Illness HPI Narrative: 59F former smoker known well to the facility and staff presents with the chief complaint of anxiety and trouble breathing. She has been having trouble for the past day or so. She has had no fever or chills. She denies chest pain, N/V/D. She has had no change in medications or diet. She states she is looking for a new wound care physician as Dr. Cornell is leaving [facility]. She has been applying mupirocin to the irritated skin under her trach and has had no purulent drainage. She had been on oral antibiotics until a few days ago for possible skin infection at trach site. She has been otherwise well and free of compalint Onset (ago): day(s) Duration: constant Severity: moderate Relieving factors: nothing Exacerbating factors: exertion Description of mucous: clear Able to tolerate fluids by mouth: Yes Associated symptoms: denies other symptoms Related Data Home Medications Medication Instructions Recorded Confirmed albuterol sulfate 1 dose INHALATION QIDP PRN #180 01/25/16 03/25/19 docusate sodium 100 mg PO BID #0 01/25/16 03/25/19 acetaminophen 325 mg PO Q6HP PRN #0 10/29/16 03/25/19 amitriptyline 25 mg PO BEDTIME #0 01/22/17 03/25/19 ascorbic acid (vitamin C) 500 mg PO DAILY #0 06/10/17 03/25/19 fexofenadine 180 mg PO DAILY #0 06/10/17 03/25/19 nystatin 1 dose PO DIRECTED PRN #0 06/10/17 03/25/19 sodium chloride 0.9 % 1 vial QID PRN #0 06/10/17 03/25/19 citalopram 40 mg PO DAILY 09/21/17 03/25/19 lisinopril 10 mg PO BID 09/21/17 03/25/19 levothyroxine 88 mcg PO DAILY 01/04/18 03/25/19 estradiol 1 mg PO DAILY 01/25/18 03/25/19 gentamicin 1 applic TOPICAL DIRECTED 05/24/18 03/25/19 omeprazole 40 mg PO DAILY 07/30/18 03/25/19 fexofenadine [Allergy Relief mg 08/21/19 (fexofenadine)] Previous Rx's Medication Instructions Recorded mupirocin 1 applictn TOP BID #15 gram 02/06/19 lidocaine 1 patch TOP DAILY #15 each 03/25/19 tramadol 50 mg PO Q8H PRN #10 tab 03/25/19 fluticasone propionate [Flonase 1 spray NASAL BID PRN #11.1 ml 08/21/19 Allergy Relief] albuterol sulfate 2.5 mg INHALATION Q4H PRN #90 ml 10/10/19 doxycycline hyclate 100 mg PO BID #20 cap 10/10/19 hydrocodone-acetaminophen [[place]] 1 tab PO Q4-6H PRN #12 tab 10/10/19 ipratropium-albuterol 3 ml INHALATION Q4H PRN #90 ml 10/10/19 prednisone 40 mg PO DAILY #10 tab 10/10/19 epinephrine 0.3 mg IM Q5-15M PRN #1 each 10/14/19 Allergies Allergy/AdvReac Type Severity Reaction Status Date / Time hydrocodone Allergy Intermediate RASH/HIVES Verified 10/21/19 21:32 Penicillins Allergy Intermediate RASH/HIVES Verified 10/21/19 21:32 metronidazole Allergy Mild RASH Verified 10/21/19 21:32 diphenhydramine Allergy Unknown Verified 10/21/19 21:32 [DIPHENHYDRAMINE] ibuprofen Allergy Unknown Verified 10/21/19 21:32 venom-wasp Allergy Verified 10/21/19 21:32 ranitidine AdvReac Intermediate SOB/DIZZY Verified 10/21/19 21:32 sulfamethoxazole AdvReac Mild GI UPSET Verified 10/21/19 21:32 [From Bactrim] trimethoprim [From Bactrim] AdvReac Mild GI UPSET Verified 10/21/19 21:32 fentanyl [FENTANYL] AdvReac Unknown vomiting Verified 10/21/19 21:32 ANTACIDS AdvReac Unknown Uncoded 10/14/19 14:41 Review of Systems Constitutional Constitutional: Denies chills, Denies fatigue, Denies fever(s), Denies frequent falls, Denies lethargy and Denies weakness Eyes Eyes: Denies change in vision, Denies eye discharge, Denies irritation and Denies loss of vision ENT Ears, Nose, Mouth, and Throat: Denies change in voice, Denies dizziness, Denies neck pain, Denies sore throat and Denies throat swelling Cardiovascular Cardiovascular: Denies chest pain, Denies irregular heart rhythm, Denies lighth eadedness, Denies palpitations, Reports dyspnea, Denies dyspnea on exertion and Denies orthopnea Respiratory Respiratory: Denies cough, Reports dyspnea, Denies dyspnea on exertion and Reports wheezing Gastrointestinal Gastrointestinal: Denies abdominal pain, Denies change in bowel habits, Denies diarrhea, Denies nausea and Denies vomiting Musculoskeletal Musculoskeletal: Denies neck pain and Denies numbness Integumentary/Breasts Skin/Breast: Denies pruritus, Denies erythema, Denies rash and Denies wounds Neurologic Neurologic: Denies behavioral changes, Denies confusion, Denies dizziness, Denies frequent falls, Denies loss of vision, Denies numbness and Denies weakness Psychiatric Psychiatric: Reports anxiety, Denies behavioral changes, Denies confusion, Denies depression, Denies homicidal ideation and Denies suicidal ideation Endocrine Endocrine: Denies fatigue, Denies flushing and Denies palpitations Hematologic/Lymphatic Hematologic/Lymphatic: Denies easy bruising Allergic/Immunologic Allergic/Immunologic: Denies urticaria, Denies throat swelling and Reports wheezing Patient History Medical History Chronic pain (Acute) Community acquired pneumonia (Resolved) Laryngeal cancer (Chronic) MRSA (methicillin resistant Staphylococcus aureus) (Acute) Otitis media, purulent, acute, with spontaneous rupture of TM (Resolved) Tracheobronchitis (Chronic) Tracheostomy complication (Acute) Surgical History History of hysterectomy (Acute) Hx of appendectomy (Acute) Social History household members: significant other Smoking Status: Former smoker alcohol intake: former Smoking Status: Former smoker alcohol intake frequency: 0-2 drinks per day Substance Use Type: does not use Exam Narrative Exam Narrative: GENERAL: [59] year old patient appears stated age. Chronically ill, anxious, Well-nourished, well-developed patient, in mild distress. HEAD: Atraumatic. Normocephalic. EYES: Pupils equal round and reactive. Extraocular motions intact. No scleral icterus. No injection or drainage. ENT: Nose without bleeding, purulent drainage. Throat without erythema, tonsillar hypertrophy or exudate. Airway patent. NECK: Trach in place. No drainage. CARDIOVASCULAR: Regular rate and rhythm without murmurs, gallops, or rubs. RESPIRATORY: Mild expiratory wheeze. No obvious significant work of breathing. No rhonchi or crackles. GASTROINTESTINAL: Abdomen soft, non-tender, nondistended. EXTREMITIES: No edema or joint tenderness. BACK: Nontender without deformity or crepitance. No flank tenderness. NEURO: AOx3. SKIN: Skin on left side of anterior neck, under trach, minimally erythematous, no induration or fluctuance. No drainage. Initial Vital Signs Initial Vital Signs: Vital Signs Temperature 97.3 F L 10/21/19 20:04 Pulse Rate 77 10/21/19 20:04 Respiratory Rate 22 10/21/19 20:04 Blood Pressure 166/86 H 10/21/19 20:04 Pulse Oximetry 98 10/21/19 20:04 Course Course Course Narrative: patient suctioned and given some breathing treatments by RT. Patient shows significant improvement. Anxiety improves. No significant work of breathing. Vitals remain stable. Orders Ordered: ED Orders 10/21/19 20:04 XR chest 1V Stat EKG-12 Lead Stat RT Consult Eval and Treat Now 10/21/19 21:16 Wound Culture and Gram Stain Stat 10/21/19 22:00 Complete Blood Count AUTO DIFF Stat Comprehensive Metabolic Panel Stat Lactate (Lactic Acid) Stat NT-proBNP (BNP-Adult 18+) Stat Prothrombin Time INR Stat Discontinued Medications Hydromorphone HCl (Dilaudid) 1 mg IV NOW ONE Stop: 10/21/19 20:22 Last Admin: 10/21/19 20:27 Dose: 1 mg Documented by: LULA Hydromorphone HCl (Dilaudid) 1 mg IV NOW ONE Stop: 10/21/19 21:51 Last Admin: 10/21/19 21:58 Dose: 1 mg Documented by: JOSSELINE Vital Signs Vital signs: Vital Signs - 8 hr 10/21/19 20:04 10/21/19 22:00 10/21/19 22:31 Temperature 97.3 F L 97.4 F L Pulse Rate 77 62 67 Respiratory Rate 22 24 40 H Blood Pressure 166/86 H 130/63 115/55 L Pulse Oximetry 98 98 95 10/21/19 23:21 Temperature 97.4 F L Pulse Rate 86 Respiratory Rate 28 H Blood Pressure 124/64 Pulse Oximetry 95 MDM - URI/Sore Throat Lab Data Result diagrams: 10/21/19 22:00 10/21/19 22:00 Labs: Lab Results 10/21/19 10/21/19 10/21/19 Range/Units 22:00 22:00 22:00 WBC 8.3 (4.5-11.0) X10^3/uL RBC 4.07 (4.0-5.2) X10^6/uL Hgb 12.1 (12.0-16.0) g/dL Hct 36.6 (36-46) % MCV 89.7 (80-100) fL MCH 29.6 (26-34) PG MCHC 33.0 (30-36) % RDW 15.4 H (11.6-14.8) % Plt Count 235 (150-400) X10^3/uL Neut % (Auto) 77.0 H (50-75) % Lymph % (Auto) 9.8 L (25-40) % [place] % (Auto) 8.5 (3-14) % Eos % (Auto) 4.4 H (2-4) % Baso % (Auto) 0.3 (0-2) % Neut # (Auto) 6400 (5058-5699) /uL Lymph # (Auto) 800 L (7461-9908) /uL [place] # (Auto) 700 (0-900) /uL Eos # (Auto) 400 (0-450) /uL Baso # (Auto) 0 (0-100) /uL PT 11.1 (10.1-12.7) SECONDS INR 1.0 (0.9-1.3) Sodium 136 L (137-145) mmol/L Potassium 3.6 (3.4-5.1) mmol/L Chloride 106 (98-107) mmol/L Carbon Dioxide 25 (22-32) mmol/L BUN 18 H (7-17) mg/dL Creatinine 0.60 (0.52-1.04) mg/dL Estimated GFR > 60.0 (>60) mL/min BUN/Creatinine Ratio 30.0 H (6-22) Glucose 89 (70-100) mg/dL Lactate (0.7-2.1) mmol/L Calcium 8.1 L (8.4-10.2) mg/dL Total Bilirubin 0.4 (0.2-1.3) mg/dL AST 19 (14-36) IU/L ALT 12 (<35) IU/L Alkaline Phosphatase 64 (38-126) U/L NT-Pro-B Natriuret Pep 160 H (<125) pg/mL Total Protein 6.0 L (6.3-8.2) g/dL Albumin 3.6 (3.5-5.0) g/dL Globulin 2.4 (1.7-4.1) g/dL Albumin/Globulin Ratio 1.5 (1.0-2.8) 10/21/19 Range/Units 22:00 WBC (4.5-11.0) X10^3/uL RBC (4.0-5.2) X10^6/uL Hgb (12.0-16.0) g/dL Hct (36-46) % MCV (80-100) fL MCH (26-34) PG MCHC (30-36) % RDW (11.6-14.8) % Plt Count (150-400) X10^3/uL Neut % (Auto) (50-75) % Lymph % (Auto) (25-40) % [place] % (Auto) (3-14) % Eos % (Auto) (2-4) % Baso % (Auto) (0-2) % Neut # (Auto) (7665-1770) /uL Lymph # (Auto) (6265-9290) /uL [place] # (Auto) (0-900) /uL Eos # (Auto) (0-450) /uL Baso # (Auto) (0-100) /uL PT (10.1-12.7) SECONDS INR (0.9-1.3) Sodium (137-145) mmol/L Potassium (3.4-5.1) mmol/L Chloride (98-107) mmol/L Carbon Dioxide (22-32) mmol/L BUN (7-17) mg/dL Creatinine (0.52-1.04) mg/dL Estimated GFR (>60) mL/min BUN/Creatinine Ratio (6-22) Glucose (70-100) mg/dL Lactate 1.2 (0.7-2.1) mmol/L Calcium (8.4-10.2) mg/dL Total Bilirubin (0.2-1.3) mg/dL AST (14-36) IU/L ALT (<35) IU/L Alkaline Phosphatase (38-126) U/L NT-Pro-B Natriuret Pep (<125) pg/mL Total Protein (6.3-8.2) g/dL Albumin (3.5-5.0) g/dL Globulin (1.7-4.1) g/dL Albumin/Globulin Ratio (1.0-2.8) Discharge Plan Departure Patient Disposition: Home Clinical Impression: Tracheostomy malfunction Discharge Date/Time: 10/21/19 23:22 Instructions: How to Take Care of a Tracheostomy Activity Restrictions/Additional Instructions: *You have been diagnosed with [difficulty breathing and tracheostomy problem. Exam, Labs and x-ray were all very reassuring] *What to do: *Take medications as directed *Follow up with your primary care provider in 2-3 days, call for an appointment. Let them know you were seen in the Emergency Department and that we ask that you be seen in follow up *Return to ER if you should have any new, worsening or concerning symptoms Prescriptions: No Action albuterol sulfate 2.5 MG/3 ML solution for nebulization 1 dose Inhalation QIDP PRN (Reason: Shortness Of Breath) Qty: 180 RF: 0 docusate sodium 100 MG capsule 100 mg PO BID Qty: 0 RF: 0 acetaminophen 325 MG tablet 325 mg PO Q6HP PRN (Reason: Pain, Moderate) Qty: 0 RF: 0 amitriptyline 25 MG tablet 25 mg PO BEDTIME Qty: 0 RF: 0 ascorbic acid (vitamin C) 500 MG tablet 500 mg PO DAILY Qty: 0 RF: 0 fexofenadine 180 MG tablet 180 mg PO DAILY Qty: 0 RF: 0 nystatin 100,000 UNIT/1 ML suspension 1 dose PO DIRECTED PRN (Reason: thrush) Qty: 0 RF: 0 sodium chloride 0.9 % 10 ML solution 1 vial QID PRN (Reason: irrigate tracheostomy) Qty: 0 RF: 0 fexofenadine [Allergy Relief (fexofenadine)] 180 mg tablet RF: 0 citalopram 40 mg tablet 40 mg PO DAILY RF: 0 lisinopril 10 mg tablet 10 mg PO BID RF: 0 estradiol 1 mg tablet 1 mg PO DAILY RF: 0 omeprazole 40 mg capsule,delayed release(DR/EC) 40 mg PO DAILY RF: 0 mupirocin 2 % ointment 1 applictn TOP BID Qty: 15 RF: 0 fluticasone propionate [Flonase Allergy Relief] 50 mcg/actuation spray,suspe nsion 1 spray NASAL BID PRN (Reason: congestion) Qty: 11.1 RF: 0 epinephrine 0.3 mg/0.3 mL auto-injector 0.3 mg IM Q5-15M PRN (Reason: anaphylaxis) Qty: 1 RF: 0 levothyroxine 88 mcg tablet 88 mcg PO DAILY RF: 0 gentamicin 0.1 % ointment 1 applic topical DIRECTED RF: 0 lidocaine 5 % adhesive patch,medicated 1 patch TOP DAILY Qty: 15 RF: 0 tramadol 50 mg tablet 50 mg PO Q8H PRN (Reason: severe pain) Qty: 10 RF: 0 prednisone 20 mg tablet 40 mg PO DAILY Qty: 10 RF: 0 doxycycline hyclate 100 mg capsule 100 mg PO BID Qty: 20 RF: 0 hydrocodone-acetaminophen [[place]] 5-325 mg tablet 1 tab PO Q4-6H PRN (Reason: pain) Qty: 12 RF: 0 ipratropium-albuterol 0.5 mg-3 mg(2.5 mg base)/3 mL solution for nebulization 3 ml INHALATION Q4H PRN (Reason: shortness of breath or wheezing) Qty: 90 RF: 0 albuterol sulfate 2.5 mg /3 mL (0.083 %) solution for nebulization 2.5 mg INHALATION Q4H PRN (Reason: shortness of breath or wheezing) Qty: 90 RF: 0 Referrals: Eusebio Hammer MD [Primary Care Provider] - Angel Chandler MD [Physician] -
[2019-10-21 23:21] VITALS: BP 124/64; PULSE 86; RESP 28; TEMP 36.3; O2SAT 95
== END 2019-10-21 23:22 | disposition home or self-care (01) ==
PROVIDERS: Emergency Provider Emergency Medicine; PCP Internal Medicine
DX: J95.03 Malfunction of tracheostomy stoma (principal); F41.9 Anxiety disorder, unspecified
CPT/HCPCS: 36415; 71045; 80053; 83605; 83880; 85025; 85610; 87070; 87075; 87077; 87186; 87205; 93005; 93010; 96374; 96376; 99284; J1170

== ENCOUNTER → 2019-10-27 13:41 | Outpatient (CLI) | payer OTHER, MEDICAID, SELFPAY ==
[2018-10-27 03:00] VITALS: BMI 40.3
== END ==
PROVIDERS: PCP Internal Medicine; Referring Provider Internal Medicine; Visit Provider Family Medicine
DX: S11.89XA Other open wound of other specified part of neck, initial encounter (principal); Z90.02 Acquired absence of larynx; Z93.0 Tracheostomy status; L59.8 Other specified disorders of the skin and subcutaneous tissue related to radiation
CPT/HCPCS: 99213; 99214

== ENCOUNTER → 2019-11-10 15:28 | Outpatient (CLI) | payer OTHER, MEDICAID, SELFPAY ==
[2018-10-27 03:00] VITALS: BMI 40.3
== END ==
PROVIDERS: PCP Internal Medicine; Referring Provider Internal Medicine; Visit Provider Family Medicine
DX: S11.89XA Other open wound of other specified part of neck, initial encounter (principal); Z90.02 Acquired absence of larynx; Z93.0 Tracheostomy status; L59.8 Other specified disorders of the skin and subcutaneous tissue related to radiation
CPT/HCPCS: 97597; 97598

== ENCOUNTER → 2019-11-28 13:13 | Outpatient (CLI) | payer OTHER, MEDICAID, SELFPAY ==
[2018-10-27 03:00] VITALS: BMI 40.3
== END ==
PROVIDERS: PCP Internal Medicine; Referring Provider Internal Medicine; Visit Provider Family Medicine
DX: S11.89XA Other open wound of other specified part of neck, initial encounter (principal); Z90.02 Acquired absence of larynx; Z93.0 Tracheostomy status; L59.8 Other specified disorders of the skin and subcutaneous tissue related to radiation
CPT/HCPCS: 97597; 97598

== ENCOUNTER → 2019-12-16 10:41 | Outpatient (CLI) | payer OTHER, MEDICAID, SELFPAY ==
[2018-10-27 03:00] VITALS: BMI 40.3
== END ==
PROVIDERS: PCP Internal Medicine; Referring Provider Internal Medicine; Visit Provider Family Medicine
DX: L08.89 Other specified local infections of the skin and subcutaneous tissue (principal); S11.89XA Other open wound of other specified part of neck, initial encounter; L08.9 Local infection of the skin and subcutaneous tissue, unspecified; G89.18 Other acute postprocedural pain
CPT/HCPCS: 87070; 87077; 87147; 87186; 87205; 99213

== ENCOUNTER → 2019-12-16 13:29 | Outpatient (ROUT) | payer OTHER, MEDICAID, SELFPAY ==
[2018-10-27 03:00] VITALS: BMI 40.3
== END ==
PROVIDERS: PCP Internal Medicine; Visit Provider Family Medicine
DX: L08.89 Other specified local infections of the skin and subcutaneous tissue (principal)
CPT/HCPCS: 87070; 87077; 87147; 87186; 87205

== ENCOUNTER → 2020-01-03 10:07 | Outpatient (CLI) | payer OTHER, MEDICAID, SELFPAY ==
[2018-10-27 03:00] VITALS: BMI 40.3
== END ==
PROVIDERS: PCP Internal Medicine; Referring Provider Internal Medicine; Visit Provider Family Medicine
DX: S11.89XA Other open wound of other specified part of neck, initial encounter (principal); Z90.02 Acquired absence of larynx; Z93.0 Tracheostomy status; L59.8 Other specified disorders of the skin and subcutaneous tissue related to radiation; L08.9 Local infection of the skin and subcutaneous tissue, unspecified
CPT/HCPCS: 87070; 87075; 87077; 87147; 87186; 87205; 97597; 97598; 99214

== ENCOUNTER 2020-01-18 19:51 | Emergency (ER) | payer OTHER, MEDICAID, SELFPAY ==
[2018-10-27 03:00] VITALS: BMI 40.3
[2020-01-18] VITALS (9 sets, daily range): BP systolic 132–192; BP diastolic 60–112; PULSE 71–84; RESP 22; TEMP 36.4; O2SAT 93–98
--- NOTE | 2020-01-18 20:26 | ED_ITS ---
HPI - SOB/Dyspnea General Chief Complaint: Shortness of Breath/Dyspnea Stated Complaint: Trouble breathing Time Seen by Provider: 01/18/20 20:23 Source: patient Mode of arrival: Ambulatory History of Present Illness HPI Narrative: 59-year-old woman with extended history of tracheostomy presents with complaints of difficulty breathing and mild anxiety as well as concerns regarding wounds on her neck under the tracheostomy retaining device. She states that she feels unwell has had low-grade fevers is concerned about a mildly productive cough of brownish rust colored sputum. She denies nausea, vomiting, diarrhea, chest pain, abdominal pain, dysuria, lower extremity edema. She does have a moderate amount of secretions in her tracheal tube and responds well to initial suctioning. Related Data Home Medications Medication Instructions Recorded Confirmed albuterol sulfate 1 dose INHALATION QIDP PRN #180 01/25/16 03/25/19 docusate sodium 100 mg PO BID #0 01/25/16 03/25/19 acetaminophen 325 mg PO Q6HP PRN #0 10/29/16 03/25/19 amitriptyline 25 mg PO BEDTIME #0 01/22/17 03/25/19 ascorbic acid (vitamin C) 500 mg PO DAILY #0 06/10/17 03/25/19 fexofenadine 180 mg PO DAILY #0 06/10/17 03/25/19 nystatin 1 dose PO DIRECTED PRN #0 06/10/17 03/25/19 sodium chloride 0.9 % 1 vial QID PRN #0 06/10/17 03/25/19 citalopram 40 mg PO DAILY 09/21/17 03/25/19 lisinopril 10 mg PO BID 09/21/17 03/25/19 levothyroxine 88 mcg PO DAILY 01/04/18 03/25/19 estradiol 1 mg PO DAILY 01/25/18 03/25/19 gentamicin 1 applic TOPICAL DIRECTED 05/24/18 03/25/19 omeprazole 40 mg PO DAILY 07/30/18 03/25/19 fexofenadine [Allergy Relief mg 08/21/19 (fexofenadine)] Previous Rx's Medication Instructions Recorded mupirocin 1 applictn TOP BID #15 gram 02/06/19 lidocaine 1 patch TOP DAILY #15 each 03/25/19 tramadol 50 mg PO Q8H PRN #10 tab 03/25/19 fluticasone propionate [Flonase 1 spray NASAL BID PRN #11.1 ml 08/21/19 Allergy Relief] albuterol sulfate 2.5 mg INHALATION Q4H PRN #90 ml 10/10/19 doxycycline hyclate 100 mg PO BID #20 cap 10/10/19 hydrocodone-acetaminophen [Bertram] 1 tab PO Q4-6H PRN #12 tab 10/10/19 ipratropium-albuterol 3 ml INHALATION Q4H PRN #90 ml 10/10/19 prednisone 40 mg PO DAILY #10 tab 10/10/19 epinephrine 0.3 mg IM Q5-15M PRN #1 each 10/14/19 azithromycin 250 mg PO DAILY 5 Days tab 01/19/20 Allergies Allergy/AdvReac Type Severity Reaction Status Date / Time hydrocodone Allergy Intermediate RASH/HIVES Verified 10/21/19 21:32 Penicillins Allergy Intermediate RASH/HIVES Verified 10/21/19 21:32 metronidazole Allergy Mild RASH Verified 10/21/19 21:32 diphenhydramine Allergy Unknown Verified 10/21/19 21:32 [DIPHENHYDRAMINE] ibuprofen Allergy Unknown Verified 10/21/19 21:32 venom-wasp Allergy Verified 10/21/19 21:32 ranitidine AdvReac Intermediate SOB/DIZZY Verified 10/21/19 21:32 sulfamethoxazole AdvReac Mild GI UPSET Verified 10/21/19 21:32 [From Bactrim] trimethoprim [From Bactrim] AdvReac Mild GI UPSET Verified 10/21/19 21:32 fentanyl [FENTANYL] AdvReac Unknown vomiting Verified 10/21/19 21:32 ANTACIDS AdvReac Unknown Uncoded 10/14/19 14:41 Review of Systems Review of Systems Narrative: Remainder of review of systems including constitutional, ENT, cardiovascular, respiratory, GI, , musculoskeletal, skin, neurologic and psychiatric systems reviewed and are unremarkable except as noted in HPI. Patient History Medical History Chronic pain (Acute) Community acquired pneumonia (Resolved) Laryngeal cancer (Chronic) MRSA (methicillin resistant Staphylococcus aureus) (Acute) Otitis media, purulent, acute, with spontaneous rupture of TM (Resolved) Tracheobronchitis (Chronic) Tracheostomy complication (Acute) Surgical History History of hysterectomy (Acute) Hx of appendectomy (Acute) Social History household members: significant other Smoking Status: Former smoker alcohol intake: former Smoking Status: Former smoker alcohol intake frequency: 0-2 drinks per day Substance Use Type: does not use Exam Narrative Exam Narrative: General: Moderate distress with cough and wheeze and increasing anxiety appreciated. Able to cooperate with physical exam and uses a tablet to right and more fully communicate HEENT: Moist mucous membranes, normal sclera with reactive pupils, Neck: tracheostomy site itself is clean and dry area of skin lateral to the side with ulcerations and dressings applied and the tracheostomy retaining device is over the dressings. mild erythema mild discharge without significant spreading erythema or obvious cellulitis Respiratory: Lungs mild scattered wheezing no rales no rhonchi. Full and symmetrical air movement Cardiac: Regular rate and rhythm no murmurs no bruits Abdomen: Soft nontender good bowel tones, no flank pain Skin: Warm and dry, no rashes, Neurologic: Grossly neurologically intact with no obvious asymmetries or abnormalities Extremities: No trauma, well perfused, tender area in the posterior left calf without obvious injury, skin changes, erythema, warmth or swelling Psych: Cooperative, anxious with normal thought content and process Initial Vital Signs Initial Vital Signs: Vital Signs Temperature 97.5 F L 01/18/20 20:01 Pulse Rate 81 01/18/20 20:01 Respiratory Rate 22 01/18/20 20:01 Blood Pressure 192/112 H 01/18/20 20:01 Pulse Oximetry 97 01/18/20 20:01 Course Orders Ordered: ED Orders 01/18/20 20:39 XR chest 1V Stat 01/18/20 21:02 COVID19 Stat Complete Blood Count AUTO DIFF Stat Comprehensive Metabolic Panel Stat D Dimer Stat Lactate (Lactic Acid) Stat Magnesium Stat Procalcitonin Stat 01/18/20 21:07 Blood Culture Stat 01/18/20 21:09 Sputum Culture Stat Discontinued Medications Hydromorphone HCl (Dilaudid) 0.5 mg IV Q15MIN PRN PRN Reason: Pain, Last Admin: 01/18/20 22:48 Dose: 0.5 mg Documented by: AMBROSIO Ceftriaxone Sodium/Dextrose (Rocephin) 2 gm in 50 mls @ 100 mls/hr IV NOW ONE Stop: 01/18/20 21:06 Last Infusion: 01/18/20 23:49 Dose: 0 mls/hr Documented by: Admin: 01/18/20 22:46 Dose: 100 mls/hr Documented by: AMBROSIO Sodium Chloride (Normal Saline 0.9%) 1,000 mls @ 1,000 mls/hr IV BOLUS ONE Stop: 01/18/20 21:36 Last Infusion: 01/19/20 00:08 Dose: 0 mls/hr Documented by: Admin: 01/18/20 21:20 Dose: 1,000 mls/hr Documented by: HILTON Azithromycin 500 mg/ Dextrose 250 mls @ 250 mls/hr IV NOW ONE Stop: 01/18/20 20:38 Last Infusion: 01/18/20 22:45 Dose: 0 mls/hr Documented by: Admin: 01/18/20 21:20 Dose: 250 mls/hr Documented by: HILTON Vital Signs Vital signs: Vital Signs - 8 hr 01/18/20 21:39 01/18/20 21:55 01/18/20 22:00 Temperature Pulse Rate 72 77 80 Respiratory Rate Blood Pressure 138/74 Pulse Oximetry 97 98 97 01/18/20 22:30 01/18/20 22:56 01/18/20 23:00 Temperature Pulse Rate 76 74 84 Respiratory Rate Blood Pressure 132/60 135/63 Pulse Oximetry 95 93 93 01/19/20 00:50 Temperature 98.0 F Pulse Rate 73 Respiratory Rate 16 Blood Pressure 130/62 Pulse Oximetry 93 MDM - SOB/Dyspnea Medical Records Attestation: I reviewed the patient's medical records. Lab Data Attestation: I reviewed the patient's lab results. Result diagrams: 01/18/20 21:02 01/18/20 21:02 Labs: Lab Results 01/18/20 01/18/20 01/18/20 Range/Units 21:02 21:02 21:02 WBC 6.5 (4.5-11.0) X10^3/uL RBC 3.91 L (4.0-5.2) X10^6/uL Hgb 11.7 L (12.0-16.0) g/dL Hct 35.2 L (36-46) % MCV 90.1 (80-100) fL MCH 30.0 (26-34) PG MCHC 33.3 (30-36) % RDW 13.9 (11.6-14.8) % Plt Count 258 (150-400) X10^3/uL Neut % (Auto) 68.1 (50-75) % Lymph % (Auto) 15.0 L (25-40) % [place] % (Auto) 10.3 (3-14) % Eos % (Auto) 5.3 H (2-4) % Baso % (Auto) 1.3 (0-2) % Neut # (Auto) 4400 (3248-3081) /uL Lymph # (Auto) 1000 L (5756-4632) /uL Emmons # (Auto) 700 (0-900) /uL Eos # (Auto) 300 (0-450) /uL Baso # (Auto) 100 (0-100) /uL D-Dimer < 200 (<230) ng/mL Sodium 135 L (137-145) mmol/L Potassium 3.7 (3.4-5.1) mmol/L Chloride 104 (98-107) mmol/L Carbon Dioxide 28 (22-32) mmol/L BUN 18 H (7-17) mg/dL Creatinine 0.62 (0.52-1.04) mg/dL Estimated GFR > 60.0 (>60) mL/min BUN/Creatinine Ratio 29.0 H (6-22) Glucose 92 (70-100) mg/dL Lactate (0.7-2.1) mmol/L Calcium 8.5 (8.4-10.2) mg/dL Magnesium (1.6-2.3) mg/dL Total Bilirubin 0.3 (0.2-1.3) mg/dL AST 26 (14-36) IU/L ALT 11 (<35) IU/L Alkaline Phosphatase 62 (38-126) U/L Total Protein 6.1 L (6.3-8.2) g/dL Albumin 3.6 (3.5-5.0) g/dL Globulin 2.5 (1.7-4.1) g/dL Albumin/Globulin Ratio 1.4 (1.0-2.8) Procalcitonin (<0.5) ng/mL COVID-19 PCR (Negative) 01/18/20 01/18/20 01/18/20 Range/Units 21:02 21:02 21:02 WBC (4.5-11.0) X10^3/uL RBC (4.0-5.2) X10^6/uL Hgb (12.0-16.0) g/dL Hct (36-46) % MCV (80-100) fL MCH (26-34) PG MCHC (30-36) % RDW (11.6-14.8) % Plt Count (150-400) X10^3/uL Neut % (Auto) (50-75) % Lymph % (Auto) (25-40) % Emmons % (Auto) (3-14) % Eos % (Auto) (2-4) % Baso % (Auto) (0-2) % Neut # (Auto) (7278-0495) /uL Lymph # (Auto) (0219-3533) /uL Emmons # (Auto) (0-900) /uL Eos # (Auto) (0-450) /uL Baso # (Auto) (0-100) /uL D-Dimer (<230) ng/mL Sodium (137-145) mmol/L Potassium (3.4-5.1) mmol/L Chloride (98-107) mmol/L Carbon Dioxide (22-32) mmol/L BUN (7-17) mg/dL Creatinine (0.52-1.04) mg/dL Estimated GFR (>60) mL/min BUN/Creatinine Ratio (6-22) Glucose (70-100) mg/dL Lactate 1.1 (0.7-2.1) mmol/L Calcium (8.4-10.2) mg/dL Magnesium 1.9 (1.6-2.3) mg/dL Total Bilirubin (0.2-1.3) mg/dL AST (14-36) IU/L ALT (<35) IU/L Alkaline Phosphatase (38-126) U/L Total Protein (6.3-8.2) g/dL Albumin (3.5-5.0) g/dL Globulin (1.7-4.1) g/dL Albumin/Globulin Ratio (1.0-2.8) Procalcitonin < 0.05 (<0.5) ng/mL COVID-19 PCR (Negative) 01/18/20 Range/Units 21:02 WBC (4.5-11.0) X10^3/uL RBC (4.0-5.2) X10^6/uL Hgb (12.0-16.0) g/dL Hct (36-46) % MCV (80-100) fL MCH (26-34) PG MCHC (30-36) % RDW (11.6-14.8) % Plt Count (150-400) X10^3/uL Neut % (Auto) (50-75) % Lymph % (Auto) (25-40) % Emmons % (Auto) (3-14) % Eos % (Auto) (2-4) % Baso % (Auto) (0-2) % Neut # (Auto) (4811-1478) /uL Lymph # (Auto) (3056-1661) /uL Emmons # (Auto) (0-900) /uL Eos # (Auto) (0-450) /uL Baso # (Auto) (0-100) /uL D-Dimer (<230) ng/mL Sodium (137-145) mmol/L Potassium (3.4-5.1) mmol/L Chloride (98-107) mmol/L Carbon Dioxide (22-32) mmol/L BUN (7-17) mg/dL Creatinine (0.52-1.04) mg/dL Estimated GFR (>60) mL/min BUN/Creatinine Ratio (6-22) Glucose (70-100) mg/dL Lactate (0.7-2.1) mmol/L Calcium (8.4-10.2) mg/dL Magnesium (1.6-2.3) mg/dL Total Bilirubin (0.2-1.3) mg/dL AST (14-36) IU/L ALT (<35) IU/L Alkaline Phosphatase (38-126) U/L Total Protein (6.3-8.2) g/dL Albumin (3.5-5.0) g/dL Globulin (1.7-4.1) g/dL Albumin/Globulin Ratio (1.0-2.8) Procalcitonin (<0.5) ng/mL COVID-19 PCR Negative (Negative) Urine Dip Bedside Urine Glucose Negative Bedside Urine Bilirubin - Negative Bedside Urine Ketone - Negative Urine Specific [place] 1.015 Bedside Urine Occult Blood - Negative Bedside Urine pH 6.0 Bedside Urine Protein - Negative Bedside Urine Urobilinogen - Negative Bedside Urine Nitrite - Negative Bedside Urine Leukocytes - Negative Esterase Imaging Data Chest x-ray: Radiologist's Impression: FINDINGS: Surgical changes and devices: None. Lungs and pleura: Lung volumes are low. There are diffuse interstitial markings. No pleural effusion or pneumothorax. No focal airspace consolidation. Mediastinum: Mediastinal contours appear normal. Heart size is normal. Bones and chest wall: No suspicious bony lesions. Overlying soft tissues appear unremarkable. IMPRESSION: Low lung volumes and vascular crowding. Dictated by: Charity Tran M.D. on 01/18/2020 at 21:04 ECG Data Attestation: I personally reviewed and interpreted this ECG as follows: MDM Narrative Medical decision making narrative: 59-year-old woman with tracheostomy. Significant ulceration under the trach macias for which she is currently being seen by wound care. The wounds themselves look chronic with no increasing redness or discharge. No evidence of systemic infection or sepsis. Chest x-ray does not suggest pneumonia however slight temperature and rust-colored sputum does suggest a bacterial tracheitis. At time of discharge she is much less anxious, breathing comfortably, secretions are well controlled through her trach site. All questions are answered and she is feeling much more comfortable and clearly reassured. She is safe for home discharge Discharge Plan Departure Patient Disposition: Home Clinical Impression: Bacterial tracheitis, Non-healing wound Discharge Date/Time: 01/19/20 00:52 Instructions: DI for Pneumonia -- Adult Activity Restrictions/Additional Instructions: Thank you for coming in today. With the increased brownish sputum that you are noticing I believe that you have a bacterial infection developing in your trachea. You are given antibiotics in the emergency room to get started on treating this but will need to complete a course of azithromycin. I have given you a hard copy of this prescription to get filled and begin tomorrow. You do not have Covid There is no evidence of overwhelming infection (sepsis), severe bacterial pneumonia, blood clots in your lungs, heart failure or heart attack. The wounds around your neck do not appear to be significantly infected, however, there does seem to be more discharge around them and a visit back to the wound care clinic for recommendations within the next 2-3 days would be very appropriate. Please call to schedule this appointment. Prescriptions: New azithromycin 250 mg tablet 250 mg PO DAILY 5 Days RF: 0 No Action albuterol sulfate 2.5 MG/3 ML solution for nebulization 1 dose Inhalation QIDP PRN (Reason: Shortness Of Breath) Qty: 180 RF: 0 docusate sodium 100 MG capsule 100 mg PO BID Qty: 0 RF: 0 acetaminophen 325 MG tablet 325 mg PO Q6HP PRN (Reason: Pain, Moderate) Qty: 0 RF: 0 amitriptyline 25 MG tablet 25 mg PO BEDTIME Qty: 0 RF: 0 ascorbic acid (vitamin C) 500 MG tablet 500 mg PO DAILY Qty: 0 RF: 0 fexofenadine 180 MG tablet 180 mg PO DAILY Qty: 0 RF: 0 nystatin 100,000 UNIT/1 ML suspension 1 dose PO DIRECTED PRN (Reason: thrush) Qty: 0 RF: 0 sodium chloride 0.9 % 10 ML solution 1 vial QID PRN (Reason: irrigate tracheostomy) Qty: 0 RF: 0 fexofenadine [Allergy Relief (fexofenadine)] 180 mg tablet RF: 0 citalopram 40 mg tablet 40 mg PO DAILY RF: 0 lisinopril 10 mg tablet 10 mg PO BID RF: 0 estradiol 1 mg tablet 1 mg PO DAILY RF: 0 omeprazole 40 mg capsule,delayed release(DR/EC) 40 mg PO DAILY RF: 0 mupirocin 2 % ointment 1 applictn TOP BID Qty: 15 RF: 0 fluticasone propionate [Flonase Allergy Relief] 50 mcg/actuation spray,suspension 1 spray NASAL BID PRN (Reason: congestion) Qty: 11.1 RF: 0 epinephrine 0.3 mg/0.3 mL auto-injector 0.3 mg IM Q5-15M PRN (Reason: anaphylaxis) Qty: 1 RF: 0 levothyroxine 88 mcg tablet 88 mcg PO DAILY RF: 0 gentamicin 0.1 % ointment 1 applic topical DIRECTED RF: 0 lidocaine 5 % adhesive patch,medicated 1 patch TOP DAILY Qty: 15 RF: 0 tramadol 50 mg tablet 50 mg PO Q8H PRN (Reason: severe pain) Qty: 10 RF: 0 prednisone 20 mg tablet 40 mg PO DAILY Qty: 10 RF: 0 doxycycline hyclate 100 mg capsule 100 mg PO BID Qty: 20 RF: 0 hydrocodone-acetaminophen [Bertram] 5-325 mg tablet 1 tab PO Q4-6H PRN (Reason: pain) Qty: 12 RF: 0 ipratropium-albuterol 0.5 mg-3 mg(2.5 mg base)/3 mL solution for nebulization 3 ml INHALATION Q4H PRN (Reason: shortness of breath or wheezing) Qty: 90 RF: 0 albuterol sulfate 2.5 mg /3 mL (0.083 %) solution for nebulization 2.5 mg INHALATION Q4H PRN (Reason: shortness of breath or wheezing) Qty: 90 RF: 0 Referrals: Eusebio Hammer MD [Primary Care Provider] -
--- NOTE | 2020-01-18 20:39 | DI.RAD.S_ITS ---
PROCEDURE: XR CHEST 1V INDICATIONS: cough TECHNIQUE: One view of the chest was acquired. COMPARISON: [facility], CR, XR CHEST 1V, 10/21/2019, 20:13. FINDINGS: Surgical changes and devices: None. Lungs and pleura: Lung volumes are low. There are diffuse interstitial markings. No pleural effusion or pneumothorax. No focal airspace consolidation. Mediastinum: Mediastinal contours appear normal. Heart size is normal. Bones and chest wall: No suspicious bony lesions. Overlying soft tissues appear unremarkable. IMPRESSION: Low lung volumes and vascular crowding. Dictated by: Charity Tran M.D. on 01/18/2020 at 21:04 Approved by: Charity Tran M.D. on 01/18/2020 at 21:06
[2020-01-18 21:16] LABS: Add Manual Diff / Slide Review NO; Basophils Absolute Auto 100 /uL (0-100); Basophils Percent Auto 1.3 % (0-2); Eosinophils Absolute Auto 300 /uL (0-450); Eosinophils Percent Auto 5.3 % (2-4); Hematocrit 35.2 % (36-46); Hemoglobin 11.7 g/dL (12.0-16.0); Lymphocytes Absolute Auto 1000 /uL (1100-4500); Mean Corpuscular HGB Conc 33.3 % (30-36); Mean Corpuscular Volume 90.1 fL (80-100); Monocytes Absolute Auto 700 /uL (0-900); Monocytes Percent Auto 10.3 % (3-14); Neutrophils Absolute Auto 4400 /uL (1500-7000); Neutrophils Percent Auto 68.1 % (50-75); Platelet Count 258 X10^3/uL (150-400); Red Blood Cell Count 3.91 X10^6/uL (4.0-5.2); Red Cell Distribution Width 13.9 % (11.6-14.8); White Blood Cell Count 6.5 X10^3/uL (4.5-11.0)
[2020-01-18] MEDS: SODIUM CHLORIDE 0.9% 1,000 ML 1000 ML IV (21:20)
[2020-01-18] MEDS: AZITHROMYCIN 500 MG in DEXTROSE 5% IN WATER 250 ML IV (21:20)
[2020-01-18 21:28] LABS: D Dimer < 200 ng/mL (<230)
[2020-01-18 21:29] LABS: Lactate (Lactic Acid) 1.1 mmol/L (0.7-2.1); Magnesium 1.9 mg/dL (1.6-2.3)
[2020-01-18 21:31] LABS: Alanine Aminotransferase 11 IU/L (<35); Albumin 3.6 g/dL (3.5-5.0); Albumin Globulin Ratio 1.4 (1.0-2.8); Alkaline Phosphatase 62 U/L (38-126); Aspartate Aminotransferase 26 IU/L (14-36); Bilirubin Total 0.3 mg/dL (0.2-1.3); Blood Urea Nitrogen 18 mg/dL (7-17); Calcium 8.5 mg/dL (8.4-10.2); Carbon Dioxide 28 mmol/L (22-32); Chloride 104 mmol/L (98-107); Estimated Glomerular Filt Rate > 60.0 mL/min (>60); Globulin 2.5 g/dL (1.7-4.1); Glucose 92 mg/dL (70-100); HEMOLYSIS 19 (0-50); Potassium 3.7 mmol/L (3.4-5.1); Sodium 135 mmol/L (137-145); Total Protein 6.1 g/dL (6.3-8.2)
[2020-01-18 21:47] LABS: Procalcitonin < 0.05 ng/mL (<0.5)
[2020-01-18 21:53] LABS: COVID19 -Nasal RAPID Negative (Negative)
--- NOTE | 2020-01-18 22:31 | PC.NURSE ---
IV infiltrated so IV discontinued. provider aware. dressing and ice applied to site. no new orders at this time.
[2020-01-18] MEDS: CEFTRIAXONE 2 GM/50 ML FROZ.PIGGY IV (22:46)
[2020-01-18] MEDS: HYDROMORPHONE 0.5 MG INJ IV (22:48)
[2020-01-19 00:50] VITALS: BP 130/62; PULSE 73; RESP 16; TEMP 36.7; O2SAT 93
== END 2020-01-19 00:52 | disposition home or self-care (01) ==
PROVIDERS: Emergency Provider Emergency Medicine; PCP Internal Medicine
DX: J04.10 Acute tracheitis without obstruction (principal); F41.9 Anxiety disorder, unspecified
CPT/HCPCS: 36415; 71045; 80053; 81003; 83605; 83735; 84145; 85025; 85379; 87040; 87070; 87077; 87147; 87205; 87635; 96365; 96367; 96375; 99284; J0696; J1170

== ENCOUNTER → 2020-01-24 11:28 | Outpatient (CLI) | payer OTHER, MEDICAID, SELFPAY ==
[2018-10-27 03:00] VITALS: BMI 40.3
== END ==
PROVIDERS: PCP Internal Medicine; Referring Provider Internal Medicine; Visit Provider Family Medicine
DX: S11.89XA Other open wound of other specified part of neck, initial encounter (principal); Z90.02 Acquired absence of larynx; Z93.0 Tracheostomy status; L59.8 Other specified disorders of the skin and subcutaneous tissue related to radiation; L08.9 Local infection of the skin and subcutaneous tissue, unspecified; B95.62 Methicillin resistant Staphylococcus aureus infection as the cause of diseases classified elsewhere
CPT/HCPCS: 87070; 87075; 87077; 87147; 87186; 87205; 97597; 99213

== ENCOUNTER 2020-02-03 19:46 | Emergency (ER) | payer OTHER, MEDICAID, SELFPAY ==
[2018-10-27 03:00] VITALS: BMI 40.3
[2020-02-03] VITALS (7 sets, daily range): BP systolic 150–207; BP diastolic 73–98; PULSE 67–96; RESP 17–18; TEMP 37.1; O2SAT 91–100; BMI 33.9
--- NOTE | 2020-02-03 20:13 | DI.RAD.S_ITS ---
PROCEDURE: XR CHEST 1V INDICATIONS: FEVER SORES ON NECK 98.8 TECHNIQUE: One view of the chest was acquired. COMPARISON: [facility], CT, CT SOFT TISSUE NECK W CON, 07/06/2019, 22:31. [facility], CR, XR CHEST 1V, 01/18/2020, 20:44. [facility], CR, XR CHEST 1V, 10/21/2019, 20:13. FINDINGS: Surgical changes and devices: Surgical clips in the neck. Tracheostomy. Lungs and pleura: Lungs are clear. No pleural effusions or pneumothorax. Mediastinum: Mediastinal contours appear normal. Heart size is normal. Bones and chest wall: No suspicious bony lesions. No subcutaneous gas identified. IMPRESSION: No acute cardiopulmonary abnormality. No subcutaneous gas in the neck identified. Tracheostomy. Dictated by: Doug Blake M.D. on 02/03/2020 at 21:27 Approved by: Doug Blake M.D. on 02/03/2020 at 21:29
--- NOTE | 2020-02-03 20:24 | ED.FEVER ---
HPI - Fever General Chief Complaint: Fever Stated Complaint: fever, sores all over neck Time Seen by Provider: 02/03/20 20:00 Source: patient Mode of arrival: Ambulatory Limitations: no limitations History of Present Illness HPI Narrative: 59F former smoker known well to the facility and staff presents with the chief complaint of anxiety, Neck pain and increased redness of skin underneath her tracheostomy for the past few days. She had a low-grade fever of 99.1 but denies any chills, nausea, vomiting or difficulty in breathing. She was last on antibiotics for infected wounds on her anterior neck a few weeks ago. She sees Wound Care for ongoing evaluation and maintenance of this skin breakdown. She is otherwise well and free of complaint MD complaint: fever Onset (ago): day(s) Maximum Temperature: 99.1 F Temperature Source: oral Associated symptoms: other Relieving factors: nothing Exacerbating factors: nothing Treatments prior to arrival fever: none Related Data Home Medications Medication Instructions Recorded Confirmed albuterol sulfate 1 dose INHALATION QIDP PRN #180 01/25/16 03/25/19 docusate sodium 100 mg PO BID #0 01/25/16 03/25/19 acetaminophen 325 mg PO Q6HP PRN #0 10/29/16 03/25/19 amitriptyline 25 mg PO BEDTIME #0 01/22/17 03/25/19 ascorbic acid (vitamin C) 500 mg PO DAILY #0 06/10/17 03/25/19 fexofenadine 180 mg PO DAILY #0 06/10/17 03/25/19 nystatin 1 dose PO DIRECTED PRN #0 06/10/17 03/25/19 sodium chloride 0.9 % 1 vial QID PRN #0 06/10/17 03/25/19 citalopram 40 mg PO DAILY 09/21/17 03/25/19 lisinopril 10 mg PO BID 09/21/17 03/25/19 levothyroxine 88 mcg PO DAILY 01/04/18 03/25/19 estradiol 1 mg PO DAILY 01/25/18 03/25/19 gentamicin 1 applic TOPICAL DIRECTED 05/24/18 03/25/19 omeprazole 40 mg PO DAILY 07/30/18 03/25/19 fexofenadine [Allergy Relief mg 08/21/19 (fexofenadine)] Previous Rx's Medication Instructions Recorded mupirocin 1 applictn TOP BID #15 gram 02/06/19 lidocaine 1 patch TOP DAILY #15 each 03/25/19 tramadol 50 mg PO Q8H PRN #10 tab 03/25/19 fluticasone propionate [Flonase 1 spray NASAL BID PRN #11.1 ml 08/21/19 Allergy Relief] albuterol sulfate 2.5 mg INHALATION Q4H PRN #90 ml 10/10/19 doxycycline hyclate 100 mg PO BID #20 cap 10/10/19 hydrocodone-acetaminophen [[place]] 1 tab PO Q4-6H PRN #12 tab 10/10/19 ipratropium-albuterol 3 ml INHALATION Q4H PRN #90 ml 10/10/19 prednisone 40 mg PO DAILY #10 tab 10/10/19 epinephrine 0.3 mg IM Q5-15M PRN #1 each 10/14/19 doxycycline hyclate 100 mg PO BID #20 tab 02/03/20 tramadol 50 mg PO Q8H PRN #10 tab 02/04/20 Allergies Allergy/AdvReac Type Severity Reaction Status Date / Time hydrocodone Allergy Intermediate RASH/HIVES Verified 10/21/19 21:32 Penicillins Allergy Intermediate RASH/HIVES Verified 10/21/19 21:32 metronidazole Allergy Mild RASH Verified 10/21/19 21:32 diphenhydramine Allergy Unknown Verified 10/21/19 21:32 [DIPHENHYDRAMINE] ibuprofen Allergy Unknown Verified 10/21/19 21:32 venom-wasp Allergy Verified 10/21/19 21:32 ranitidine AdvReac Intermediate SOB/DIZZY Verified 10/21/19 21:32 sulfamethoxazole AdvReac Mild GI UPSET Verified 10/21/19 21:32 [From Bactrim] trimethoprim [From Bactrim] AdvReac Mild GI UPSET Verified 10/21/19 21:32 fentanyl [FENTANYL] AdvReac Unknown vomiting Verified 10/21/19 21:32 ANTACIDS AdvReac Unknown Uncoded 10/14/19 14:41 Review of Systems Constitutional Constitutional: Denies chills, Denies fatigue, Denies fever(s), Denies frequent falls, Denies lethargy and Denies weakness Eyes Eyes: Denies change in vision, Denies eye discharge, Denies irritation and Denies loss of vision ENT Ears, Nose, Mouth, and Throat: Denies change in voice, Denies dizziness, Denies neck pain, Denies sore throat and Denies throat swelling Cardiovascular Cardiovascular: Denies chest pain, Denies irregular heart rhythm, Denies lightheadedness, Denies palpitations, Denies dyspnea, Denies dyspnea on exertion and Denies orthopnea Respiratory Respiratory: Denies cough, Denies dyspnea, Denies dyspnea on exertion and Denies wheezing Gastrointestinal Gastrointestinal: Denies abdominal pain, Denies change in bowel habits, Denies diarrhea, Denies nausea and Denies vomiting Musculoskeletal Musculoskeletal: Denies neck pain and Denies numbness Integumentary/Breasts Skin/Breast: Denies pruritus, Denies erythema, Denies rash, Reports skin pain, Reports sores and Denies wounds Neurologic Neurologic: Denies behavioral changes, Denies confusion, Denies dizziness, Denies frequent falls, Denies loss of vision, Denies numbness and Denies weakness Psychiatric Psychiatric: Denies anxiety, Denies behavioral changes, Denies confusion, Denies depression, Denies homicidal ideation and Denies suicidal ideation Endocrine Endocrine: Denies fatigue, Denies flushing and Denies palpitations Hematologic/Lymphatic Hematologic/Lymphatic: Denies easy bruising Allergic/Immunologic Allergic/Immunologic: Denies urticaria, Denies throat swelling and Denies wheezing Patient History Medical History Chronic pain Community acquired pneumonia Laryngeal cancer MRSA (methicillin resistant Staphylococcus aureus) Otitis media, purulent, acute, with spontaneous rupture of TM Tracheobronchitis Tracheostomy complication Surgical History History of hysterectomy Hx of appendectomy Social History household members: significant other Smoking Status: Former smoker alcohol intake: former Smoking Status: Former smoker alcohol intake frequency: 0-2 drinks per day Substance Use Type: does not use Exam Narrative Exam Narrative: GENERAL: [59] year old patient appears stated age. Chronically ill, mild distress, no suggestion of trouble breathing or controlling airway HEAD: Atraumatic. Normocephalic. EYES: Pupils equal round and reactive. Extraocular motions intact. No scleral icterus. No injection or drainage. ENT: Nose without bleeding, purulent drainage. Throat without erythema, tonsillar hypertrophy or exudate. Airway patent. NECK: Trach in place. Gauze with some dried drainage noted bilaterally, lateral to ostomy. No fluctuance or induration. Right side wound does have the drainage of some purulence fluid, more than normal CARDIOVASCULAR: Regular rate and rhythm without murmurs, gallops, or rubs. RESPIRATORY: Clear to auscultation. Breath sounds equal bilaterally. No wheezes, rales, or rhonchi. GASTROINTESTINAL: Abdomen soft, non-tender, nondistended. EXTREMITIES: No edema or joint tenderness. BACK: Nontender without deformity or crepitance. No flank tenderness. NEURO: AOx3. SKIN: No rash or erythema of visible areas Initial Vital Signs Initial Vital Signs: Vital Signs Temperature 98.8 F 02/03/20 20:05 Pulse Rate 96 H 02/03/20 20:05 Respiratory Rate 17 02/03/20 20:05 Blood Pressure 150/73 H 02/03/20 20:05 Pulse Oximetry 100 02/03/20 20:05 Course Course Course Narrative: Culture obtained. No signs of respiratory distress, no signs of sepsis. Orders Ordered: ED Orders 02/03/20 20:13 XR chest 1V Stat 02/03/20 20:48 C-Reactive Protein Quant Stat Complete Blood Count AUTO DIFF Stat Comprehensive Metabolic Panel Stat D Dimer Stat Ferritin Stat Lactate (Lactic Acid) Stat Lactate Dehydrogenase Stat NT-proBNP (BNP-Adult 18+) Stat Procalcitonin Stat 02/03/20 20:53 COVID19 Stat 02/03/20 23:41 Wound Culture and Gram Stain Stat Discontinued Medications Doxycycline Hyclate (Doxycycline Hyclate 100 Mg Tablet) 100 mg PO NOW ONE Stop: 02/03/20 23:28 Last Admin: 02/03/20 23:48 Dose: 100 mg Documented by: TC Hydromorphone HCl (Hydromorphone 0.5 Mg Inj) 0.5 mg IV NOW ONE Stop: 02/03/20 22:37 Last Admin: 02/03/20 22:55 Dose: 0.5 mg Documented by: RMARTIN Sodium Chloride (Normal Saline 0.9%) 1,000 mls @ 125 mls/hr IV CONT DAMARIS Last Infusion: 02/03/20 23:47 Dose: 0 mls/hr Documented by: Admin: 02/03/20 20:49 Dose: 125 mls/hr Documented by: MARLYN Tramadol HCl (Tramadol 50 Mg Prepack) 1 bottle MISC SEEINSTR ONE Stop: 02/04/20 00:17 Last Admin: 02/04/20 00:20 Dose: 1 bottle Documented by: MARLYN Vital Signs Vital signs: Vital Signs - 8 hr 02/03/20 20:05 02/03/20 21:38 02/03/20 21:43 Temperature 98.8 F Pulse Rate 96 H 67 Respiratory Rate 17 18 Blood Pressure 150/73 H Pulse Oximetry 100 95 95 02/03/20 22:00 02/03/20 22:34 02/03/20 22:58 Temperature Pulse Rate 69 74 80 Respiratory Rate Blood Pressure 159/95 H 189/96 H Pulse Oximetry 93 91 93 02/03/20 23:00 Temperature Pulse Rate 79 Respiratory Rate Blood Pressure 207/98 H Pulse Oximetry 92 MDM - Fever Lab Data Result diagrams: 02/03/20 20:48 02/03/20 20:48 Labs: Lab Results 02/03/20 02/03/20 02/03/20 Range/Units 20:48 20:48 20:48 WBC 9.8 (4.5-11.0) X10^3/uL RBC 3.87 L (4.0-5.2) X10^6/uL Hgb 11.8 L (12.0-16.0) g/dL Hct 35.1 L (36-46) % MCV 90.6 (80-100) fL MCH 30.4 (26-34) PG MCHC 33.6 (30-36) % RDW 14.2 (11.6-14.8) % Plt Count 245 (150-400) X10^3/uL Neut % (Auto) 80.0 H (50-75) % Lymph % (Auto) 8.2 L (25-40) % [place] % (Auto) 8.0 (3-14) % Eos % (Auto) 2.7 (2-4) % Baso % (Auto) 1.1 (0-2) % Neut # (Auto) 7800 H (1493-7409) /uL Lymph # (Auto) 800 L (5416-6937) /uL [place] # (Auto) 800 (0-900) /uL Eos # (Auto) 300 (0-450) /uL Baso # (Auto) 100 (0-100) /uL D-Dimer < 200 (<230) ng/mL Sodium (137-145) mmol/L Potassium (3.4-5.1) mmol/L Chloride (98-107) mmol/L Carbon Dioxide (22-32) mmol/L BUN (7-17) mg/dL Creatinine (0.52-1.04) mg/dL Estimated GFR (>60) mL/min BUN/Creatinine Ratio (6-22) Glucose (70-100) mg/dL Lactate (0.7-2.1) mmol/L Calcium (8.4-10.2) mg/dL Ferritin (11-264) ng/mL Total Bilirubin (0.2-1.3) mg/dL AST (14-36) IU/L ALT (<35) IU/L Alkaline Phosphatase (38-126) U/L Lactate Dehydrogenase (313-618) U/L C-Reactive Protein (<1.0) mg/dL NT-Pro-B Natriuret Pep (<125) pg/mL Total Protein (6.3-8.2) g/dL Albumin (3.5-5.0) g/dL Globulin (1.7-4.1) g/dL Albumin/Globulin Ratio (1.0-2.8) Procalcitonin < 0.05 (<0.5) ng/mL COVID-19 PCR (Negative) 02/03/20 02/03/20 02/03/20 Range/Units 20:48 20:48 20:53 WBC (4.5-11.0) X10^3/uL RBC (4.0-5.2) X10^6/uL Hgb (12.0-16.0) g/dL Hct (36-46) % MCV (80-100) fL MCH (26-34) PG MCHC (30-36) % RDW (11.6-14.8) % Plt Count (150-400) X10^3/uL Neut % (Auto) (50-75) % Lymph % (Auto) (25-40) % [place] % (Auto) (3-14) % Eos % (Auto) (2-4) % Baso % (Auto) (0-2) % Neut # (Auto) (9208-5597) /uL Lymph # (Auto) (7636-0073) /uL [place] # (Auto) (0-900) /uL Eos # (Auto) (0-450) /uL Baso # (Auto) (0-100) /uL D-Dimer (<230) ng/mL Sodium 137 (137-145) mmol/L Potassium 3.8 (3.4-5.1) mmol/L Chloride 106 (98-107) mmol/L Carbon Dioxide 30 (22-32) mmol/L BUN 21 H (7-17) mg/dL Creatinine 0.67 (0.52-1.04) mg/dL Estimated GFR > 60.0 (>60) mL/min BUN/Creatinine Ratio 31.3 H (6-22) Glucose 99 (70-100) mg/dL Lactate 0.8 (0.7-2.1) mmol/L Calcium 8.1 L (8.4-10.2) mg/dL Ferritin 12 (11-264) ng/mL Total Bilirubin 0.3 (0.2-1.3) mg/dL AST 22 (14-36) IU/L ALT 10 (<35) IU/L Alkaline Phosphatase 62 (38-126) U/L Lactate Dehydrogenase 369 (313-618) U/L C-Reactive Protein 2.8 H (<1.0) mg/dL NT-Pro-B Natriuret Pep 101 (<125) pg/mL Total Protein 6.2 L (6.3-8.2) g/dL Albumin 3.7 (3.5-5.0) g/dL Globulin 2.5 (1.7-4.1) g/dL Albumin/Globulin Ratio 1.5 (1.0-2.8) Procalcitonin (<0.5) ng/mL COVID-19 PCR Negative (Negative) Imaging Data Chest x-ray: Radiologist's Impression: [address] [id number] ReportSigned Patient: Nai Zeng [facility]#: [id number]: 1960cct:[id number]/Sex: 59 / FDate of Service: 02/03/20Loc: EDAccession Number: [id number] Procedure: XR chest 1V Ordering Provider: Juan Ansari D.O. PROCEDURE: XR CHEST 1V INDICATIONS: FEVER SORES ON NECK 98.8 TECHNIQUE: One view of the chest was acquired. COMPARISON: [facility], CT, CT SOFT TISSUE NECK W CON, 07/06/2019, 22:31. [facility], CR, XR CHEST 1V, 01/18/2020, 20:44. [facility], CR, XR CHEST 1V, 10/21/2019, 20:13. FINDINGS: Surgical changes and devices: Surgical clips in the neck. Tracheostomy. Lungs and pleura: Lungs are clear. No pleural effusions or pneumothorax. Mediastinum: Mediastinal contours appear normal. Heart size is normal. Bones and chest wall: No suspicious bony lesions. No subcutaneous gas identified. IMPRESSION: No acute cardiopulmonary abnormality. No subcutaneous gas in the neck identified. Tracheostomy. Dictated by: Doug Blake M.D. on 02/03/2020 at 21:27 Approved by: Doug Blake M.D. on 02/03/2020 at 21:29 Discharge Plan Departure Patient Disposition: Home Clinical Impression: Infected wound Instructions: DI for Wound Infection Activity Restrictions/Additional Instructions: *You have been diagnosed with [ infected wound, no obvious abscess. Antibiotics given based on prior cultures ] *What to do: *Take medications as directed *Follow up with your primary care provider in 2-3 days, call for an appointment. Let them know you were seen in the Emergency Department and that we ask that you be seen in follow up *Return to ER if you should have any new, worsening or concerning symptoms Prescriptions: New doxycycline hyclate 100 mg tablet 100 mg PO BID Qty: 20 RF: 0 tramadol 50 mg tablet 50 mg PO Q8H PRN (Reason: pain) Qty: 10 RF: 0 No Action albuterol sulfate 2.5 MG/3 ML solution for nebulization 1 dose Inhalation QIDP PRN (Reason: Shortness Of Breath) Qty: 180 RF: 0 docusate sodium 100 MG capsule 100 mg PO BID Qty: 0 RF: 0 acetaminophen 325 MG tablet 325 mg PO Q6HP PRN (Reason: Pain, Moderate) Qty: 0 RF: 0 amitriptyline 25 MG tablet 25 mg PO BEDTIME Qty: 0 RF: 0 ascorbic acid (vitamin C) 500 MG tablet 500 mg PO DAILY Qty: 0 RF: 0 fexofenadine 180 MG tablet 180 mg PO DAILY Qty: 0 RF: 0 nystatin 100,000 UNIT/1 ML suspension 1 dose PO DIRECTED PRN (Reason: thrush) Qty: 0 RF: 0 sodium chloride 0.9 % 10 ML solution 1 vial QID PRN (Reason: irrigate tracheostomy) Qty: 0 RF: 0 fexofenadine [Allergy Relief (fexofenadine)] 180 mg tablet RF: 0 citalopram 40 mg tablet 40 mg PO DAILY RF: 0 lisinopril 10 mg tablet 10 mg PO BID RF: 0 estradiol 1 mg tablet 1 mg PO DAILY RF: 0 omeprazole 40 mg capsule,delayed release(DR/EC) 40 mg PO DAILY RF: 0 mupirocin 2 % ointment 1 applictn TOP BID Qty: 15 RF: 0 fluticasone propionate [Flonase Allergy Relief] 50 mcg/actuation spray,suspension 1 spray NASAL BID PRN (Reason: congestion) Qty: 11.1 RF: 0 epinephrine 0.3 mg/0.3 mL auto-injector 0.3 mg IM Q5-15M PRN (Reason: anaphylaxis) Qty: 1 RF: 0 levothyroxine 88 mcg tablet 88 mcg PO DAILY RF: 0 gentamicin 0.1 % ointment 1 applic topical DIRECTED RF: 0 lidocaine 5 % adhesive patch,medicated 1 patch TOP DAILY Qty: 15 RF: 0 tramadol 50 mg tablet 50 mg PO Q8H PRN (Reason: severe pain) Qty: 10 RF: 0 prednisone 20 mg tablet 40 mg PO DAILY Qty: 10 RF: 0 doxycycline hyclate 100 mg capsule 100 mg PO BID Qty: 20 RF: 0 hydrocodone-acetaminophen [[place]] 5-325 mg tablet 1 tab PO Q4-6H PRN (Reason: pain) Qty: 12 RF: 0 ipratropium-albuterol 0.5 mg-3 mg(2.5 mg base)/3 mL solution for nebulization 3 ml INHALATION Q4H PRN (Reason: shortness of breath or wheezing) Qty: 90 RF: 0 albuterol sulfate 2.5 mg /3 mL (0.083 %) solution for nebulization 2.5 mg INHALATION Q4H PRN (Reason: shortness of breath or wheezing) Qty: 90 RF: 0 Referrals: Eusebio Hammer MD [Primary Care Provider] -
[2020-02-03] MEDS: SODIUM CHLORIDE 0.9% 1,000 ML 125 ML IV (20:49)
[2020-02-03 20:54] LABS: Add Manual Diff / Slide Review NO; Basophils Absolute Auto 100 /uL (0-100); Basophils Percent Auto 1.1 % (0-2); Eosinophils Absolute Auto 300 /uL (0-450); Eosinophils Percent Auto 2.7 % (2-4); Hematocrit 35.1 % (36-46); Hemoglobin 11.8 g/dL (12.0-16.0); Lymphocytes Absolute Auto 800 /uL (1100-4500); Lymphocytes Percent Auto 8.2 % (25-40); Mean Corpuscular HGB Conc 33.6 % (30-36); Mean Corpuscular Hemoglobin 30.4 PG (26-34); Mean Corpuscular Volume 90.6 fL (80-100); Monocytes Absolute Auto 800 /uL (0-900); Neutrophils Absolute Auto 7800 /uL (1500-7000); Platelet Count 245 X10^3/uL (150-400); Red Blood Cell Count 3.87 X10^6/uL (4.0-5.2); Red Cell Distribution Width 14.2 % (11.6-14.8); White Blood Cell Count 9.8 X10^3/uL (4.5-11.0)
[2020-02-03 21:13] LABS: COVID19 -Nasal RAPID Negative (Negative)
[2020-02-03 21:16] LABS: Lactate (Lactic Acid) 0.8 mmol/L (0.7-2.1)
[2020-02-03 21:17] LABS: Alanine Aminotransferase 10 IU/L (<35); Albumin 3.7 g/dL (3.5-5.0); Albumin Globulin Ratio 1.5 (1.0-2.8); Alkaline Phosphatase 62 U/L (38-126); Aspartate Aminotransferase 22 IU/L (14-36); BUN Creatinine Ratio 31.3 (6-22); Bilirubin Total 0.3 mg/dL (0.2-1.3); Blood Urea Nitrogen 21 mg/dL (7-17); C-Reactive Protein Quant 2.8 mg/dL (<1.0); Calcium 8.1 mg/dL (8.4-10.2); Carbon Dioxide 30 mmol/L (22-32); Chloride 106 mmol/L (98-107); D Dimer < 200 ng/mL (<230); Estimated Glomerular Filt Rate > 60.0 mL/min (>60); Globulin 2.5 g/dL (1.7-4.1); Glucose 99 mg/dL (70-100); HEMOLYSIS < 15 (0-50); Lactate Dehydrogenase 369 U/L (313-618); Potassium 3.8 mmol/L (3.4-5.1); Sodium 137 mmol/L (137-145); Total Protein 6.2 g/dL (6.3-8.2)
[2020-02-03 21:24] LABS: NT-proBNP (BNP-Adult 18+) 101 pg/mL (<125)
[2020-02-03 21:30] LABS: Procalcitonin < 0.05 ng/mL (<0.5)
[2020-02-03 21:50] LABS: Ferritin 12 ng/mL (11-264)
[2020-02-03] MEDS: HYDROMORPHONE 0.5 MG INJ IV (22:55)
[2020-02-03] MEDS: DOXYCYCLINE HYCLATE 100 MG TABLET PO (23:48)
[2020-02-04] MEDS: TRAMADOL 50 MG PREPACK 1 BOTTLE MISC (00:20)
== END 2020-02-04 00:26 | disposition home or self-care (01) ==
PROVIDERS: Emergency Provider Emergency Medicine; PCP Internal Medicine
DX: L08.9 Local infection of the skin and subcutaneous tissue, unspecified (principal); R50.9 Fever, unspecified; F41.9 Anxiety disorder, unspecified; M54.2 Cervicalgia
CPT/HCPCS: 36415; 71045; 80053; 82728; 83605; 83615; 83880; 84145; 85025; 85379; 86140; 87070; 87075; 87077; 87147; 87186; 87205; 87635; 96361; 96374; 99284; J1170

== ENCOUNTER → 2020-02-14 15:25 | Outpatient (CLI) | payer OTHER, MEDICAID, SELFPAY ==
[2018-10-27 03:00] VITALS: BMI 40.3
== END ==
PROVIDERS: PCP Internal Medicine; Referring Provider Internal Medicine; Visit Provider Family Medicine
DX: S11.89XA Other open wound of other specified part of neck, initial encounter (principal); Z90.02 Acquired absence of larynx; Z93.0 Tracheostomy status; L59.8 Other specified disorders of the skin and subcutaneous tissue related to radiation; B95.62 Methicillin resistant Staphylococcus aureus infection as the cause of diseases classified elsewhere
CPT/HCPCS: 87070; 87075; 87077; 87147; 87186; 87205; 97597; 97598; 99213

== ENCOUNTER 2020-02-17 20:14 | Emergency (ER) | payer OTHER, MEDICAID, SELFPAY ==
[2018-10-27 03:00] VITALS: BMI 40.3
[2020-02-17 20:20] VITALS: BP 129/80; PULSE 78; RESP 24; TEMP 36.9; O2SAT 99; BMI 33.9
--- NOTE | 2020-02-17 20:33 | ED.SOB ---
HPI - SOB/Dyspnea General Chief Complaint: Shortness of Breath/Dyspnea Stated Complaint: THROAT IS CLOSING Time Seen by Provider: 02/17/20 20:31 Source: patient Mode of arrival: Wheelchair History of Present Illness HPI Narrative: Patient has history of laryngectomy secondary cancer. Has tracheostomy. Has been there for many years. Prior to arrival complains of throat tightening and short of breath. Has been coughing up black blood clots. Has chronic wound around the neck that is being followed by wound services. Culture was done in the office. No recent illness fever chills nausea vomiting chest pain. Seen here for the same last month and was d/c home. Had bacterial tracheitis. Given Zithromax. Please see note below from that visit. 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 MDM Narrative Medical decision making narrative: 59-year-old woman with tracheostomy. Significant ulceration under the trach macias for which she is currently being seen by wound care. The wounds themselves look chronic with no increasing redness or discharge. No evidence of systemic infection or sepsis. Chest x-ray does not suggest pneumonia however slight temperature and rust-colored sputum does suggest a bacterial tracheitis. At time of discharge she is much less anxious, breathing comfortably, secretions are well controlled through her trach site. All questions are answered and she is feeling much more comfortable and clearly reassured. She is safe for home discharge Discharge Plan Departure Patient Disposition: Home Clinical Impression: Bacterial tracheitis, Non-healing wound Discharge Date/Time: 01/19/20 00:52 Instructions: DI for Pneumonia -- Adult Activity Restrictions/Additional Instructions: Thank you for coming in today. With the increased brownish sputum that you are noticing I believe that you have a bacterial infection developing in your trachea. You are given antibiotics in the emergency room to get started on treating this but will need to complete a course of azithromycin. I have given you a hard copy of this prescription to get filled and begin tomorrow. You do not have Covid There is no evidence of overwhelming infection (sepsis), severe bacterial pneumonia, blood clots in your lungs, heart failure or heart attack. The wounds around your neck do not appear to be significantly infected, however, there does seem to be more discharge around them and a visit back to the wound care clinic for recommendations within the next 2-3 days would be very appropriate. Please call to schedule this appointment. Prescriptions: New azithromycin 250 mg tablet 250 mg PO DAILY 5 Days RF: 0 Related Data Home Medications Medication Instructions Recorded Confirmed albuterol sulfate 1 dose INHALATION QIDP PRN #180 01/25/16 03/25/19 docusate sodium 100 mg PO BID #0 01/25/16 03/25/19 acetaminophen 325 mg PO Q6HP PRN #0 10/29/16 03/25/19 amitriptyline 25 mg PO BEDTIME #0 01/22/17 03/25/19 ascorbic acid (vitamin C) 500 mg PO DAILY #0 06/10/17 03/25/19 fexofenadine 180 mg PO DAILY #0 06/10/17 03/25/19 nystatin 1 dose PO DIRECTED PRN #0 06/10/17 03/25/19 sodium chloride 0.9 % 1 vial QID PRN #0 06/10/17 03/25/19 citalopram 40 mg PO DAILY 09/21/17 03/25/19 lisinopril 10 mg PO BID 09/21/17 03/25/19 levothyroxine 88 mcg PO DAILY 01/04/18 03/25/19 estradiol 1 mg PO DAILY 01/25/18 03/25/19 gentamicin 1 applic TOPICAL DIRECTED 05/24/18 03/25/19 omeprazole 40 mg PO DAILY 07/30/18 03/25/19 fexofenadine [Allergy Relief mg 08/21/19 (fexofenadine)] Previous Rx's Medication Instructions Recorded mupirocin 1 applictn TOP BID #15 gram 02/06/19 lidocaine 1 patch TOP DAILY #15 each 03/25/19 tramadol 50 mg PO Q8H PRN #10 tab 03/25/19 fluticasone propionate [Flonase 1 spray NASAL BID PRN #11.1 ml 08/21/19 Allergy Relief] albuterol sulfate 2.5 mg INHALATION Q4H PRN #90 ml 10/10/19 doxycycline hyclate 100 mg PO BID #20 cap 10/10/19 hydrocodone-acetaminophen [[place]] 1 tab PO Q4-6H PRN #12 tab 10/10/19 ipratropium-albuterol 3 ml INHALATION Q4H PRN #90 ml 10/10/19 prednisone 40 mg PO DAILY #10 tab 10/10/19 epinephrine 0.3 mg IM Q5-15M PRN #1 each 10/14/19 doxycycline hyclate 100 mg PO BID #20 tab 02/03/20 tramadol 50 mg PO Q8H PRN #10 tab 02/04/20 oxycodone-acetaminophen [Percocet] 1 tab PO Q8H PRN #10 tab 02/17/20 Allergies Allergy/AdvReac Type Severity Reaction Status Date / Time hydrocodone Allergy Intermediate RASH/HIVES Verified 10/21/19 21:32 Penicillins Allergy Intermediate RASH/HIVES Verified 10/21/19 21:32 metronidazole Allergy Mild RASH Verified 10/21/19 21:32 diphenhydramine Allergy Unknown Verified 10/21/19 21:32 [DIPHENHYDRAMINE] ibuprofen Allergy Unknown Verified 10/21/19 21:32 venom-wasp Allergy Verified 10/21/19 21:32 ranitidine AdvReac Intermediate SOB/DIZZY Verified 10/21/19 21:32 sulfamethoxazole AdvReac Mild GI UPSET Verified 10/21/19 21:32 [From Bactrim] trimethoprim [From Bactrim] AdvReac Mild GI UPSET Verified 10/21/19 21:32 fentanyl [FENTANYL] AdvReac Unknown vomiting Verified 10/21/19 21:32 ANTACIDS AdvReac Unknown Uncoded 10/14/19 14:41 Review of Systems Review of Systems Narrative: GENERAL: Denies chills, fatigue, malaise, fever, sweats. HEENT: Denies sinus pain, ear pain, sore throat, difficulty swallowing RESPIRATORY: Complains dyspnea, cough CARDIOVASCULAR: Denies chest pain, palpitations, edema, GASTROINTESTINAL: Denies nausea, vomiting, abdominal pain, diarrhea, constipation, melena. : Denies dysuria, frequency, hematuria MUSCULOSKELETAL: denies muscle or bony pain SKIN: Denies rash, skin lesions NEUROLOGIC: Denies weakness, headache, numbness, change in speech, confusion PSYCHIATRIC: No SI or HI or hallucinations ROS Unobtainable: All systems reviewed & are unremarkable except as noted in HPI and below Patient History Medical History (Updated 02/17/20 @ 23:27 by Duy Mata MD) Chronic pain Community acquired pneumonia Laryngeal cancer MRSA (methicillin resistant Staphylococcus aureus) Otitis media, purulent, acute, with spontaneous rupture of TM Tracheobronchitis Tracheostomy complication Surgical History History of hysterectomy Hx of appendectomy Social History household members: significant other Smoking Status: Former smoker alcohol intake: former Smoking Status: Former smoker alcohol intake frequency: 0-2 drinks per day Substance Use Type: does not use Exam Narrative Exam Narrative: GENERAL: patient appears stated age. Well-nourished, well-developed patient, in no distress, not toxic but is very anxious. HEAD: Normocephalic. EYES: Pupils equal round and reactive. No scleral icterus. No injection no discharge ENT: Mucous membranes moist. No drooling no tongue elevation no trismus no malocclusion NECK: Trachea midline. Has diffuse ulcerations bilaterally to the sides of the tracheostomy site. Scant blood on the dressings. No active bleeding. No bleeding from tracheostomy. Patient is able to communicate by writing CARDIOVASCULAR: Regular rate and rhythm without murmurs, gallops, or rubs. RESPIRATORY: Clear to auscultation. Breath sounds equal bilaterally. No wheezes, rales, or rhonchi. GASTROINTESTINAL: Abdomen soft, non-tender, nondistended. EXTREMITIES: No gross deformities. BACK: Nontender without deformity or crepitance. No flank tenderness. NEURO: AOx4. SKIN: Warm and dry PSYCH: Patient anxious, is cooperative Initial Vital Signs Initial Vital Signs: Vital Signs Temperature 98.4 F 02/17/20 20:20 Pulse Rate 78 02/17/20 20:20 Respiratory Rate 24 02/17/20 20:20 Blood Pressure 129/80 02/17/20 20:20 Pulse Oximetry 99 02/17/20 20:20 Course Course Course Narrative: Pain control during course of stay. Reviewed results. No indication for admission at this time. No infection. No airway compromise. Latty better after DuoNeb and pain medication Orders Ordered: ED Orders 02/17/20 20:31 Consult to Respiratory Therapy Evaluate & Treat EKG-12 Lead Stat 02/17/20 20:35 COVID19 Stat Complete Blood Count AUTO DIFF Stat Comprehensive Metabolic Panel Stat Magnesium Stat Troponin & CK Cardiac Panel Stat 02/17/20 20:39 CT soft tissue neck w con Stat Discontinued Medications Albuterol/Ipratropium (Albuterol/Ipratropium 3 Ml Ampul) 3 ml INH Q1H PRN PRN Reason: Shortness Of Breath Last Admin: 02/17/20 20:50 Dose: 3 ml Documented by: JOSIAH Sodium Chloride (Normal Saline 0.9%) 500 mls @ 1,000 mls/hr IV BOLUS ONE Stop: 02/17/20 21:08 Last Infusion: 02/17/20 23:00 Dose: 0 mls/hr Documented by: Admin: 02/17/20 20:43 Dose: 1,000 mls/hr Documented by: MEME Methylprednisolone (Methylprednisolone 125 Mg/2 Ml Vial) 125 mg IV NOW ONE Stop: 02/17/20 20:32 Last Admin: 02/17/20 20:43 Dose: 125 mg Documented by: MEME Morphine Sulfate (Morphine 4 Mg/Ml Inj) 4 mg IV NOW ONE Stop: 02/17/20 22:29 Last Admin: 02/17/20 22:31 Dose: 4 mg Documented by: MEME Ondansetron HCl (Ondansetron 4 Mg/2 Ml Inj) 4 mg IV NOW ONE Stop: 02/17/20 22:29 Last Admin: 02/17/20 22:31 Dose: 4 mg Documented by: MEME Reevaluation(s) Reevaluation #1: Reviewed results with patient. No signs of infection at this time. No airway compromise. Does not need antibiotics. Latty better after DuoNeb treatment as well as pain medication. Patient states is not allergic to Percocet/oxycodone. Has had in the past without any side effects or allergies. She agrees with treatment plan and discharged home. Time: 23:25 Vital Signs Vital signs: Vital Signs - 8 hr 02/17/20 20:20 02/17/20 20:38 02/17/20 20:51 Temperature 98.4 F Pulse Rate 78 76 Respiratory Rate 24 Blood Pressure 129/80 129/80 Pulse Oximetry 99 98 97 02/17/20 22:00 02/17/20 23:03 Temperature Pulse Rate 77 74 Respiratory Rate Blood Pressure 134/83 Pulse Oximetry 97 92 MDM - SOB/Dyspnea Differential Diagnosis Differential diagnosis: Likely other (Bacterial tracheitis/epiglottitis/chronic pain) Medical Records Attestation: I reviewed the patient's medical records. Lab Data Attestation: I reviewed the patient's lab results. Result diagrams: 02/17/20 20:35 02/17/20 20:35 Labs: Lab Results 02/17/20 02/17/20 02/17/20 Range/Units 20:35 20:35 20:35 WBC 10.2 (4.5-11.0) X10^3/uL RBC 4.28 (4.0-5.2) X10^6/uL Hgb 12.7 (12.0-16.0) g/dL Hct 38.3 (36-46) % MCV 89.6 (80-100) fL MCH 29.6 (26-34) PG MCHC 33.0 (30-36) % RDW 14.0 (11.6-14.8) % Plt Count 329 (150-400) X10^3/uL Neut % (Auto) 74.1 (50-75) % Lymph % (Auto) 12.1 L (25-40) % Cochran % (Auto) 9.6 (3-14) % Eos % (Auto) 3.4 (2-4) % Baso % (Auto) 0.8 (0-2) % Neut # (Auto) 7500 H (2286-7384) /uL Lymph # (Auto) 1200 (9063-4557) /uL Cochran # (Auto) 1000 H (0-900) /uL Eos # (Auto) 300 (0-450) /uL Baso # (Auto) 100 (0-100) /uL Sodium 134 L (137-145) mmol/L Potassium 4.2 (3.4-5.1) mmol/L Chloride 100 (98-107) mmol/L Carbon Dioxide 31 (22-32) mmol/L BUN 15 (7-17) mg/dL Creatinine 0.64 (0.52-1.04) mg/dL Estimated GFR > 60.0 (>60) mL/min BUN/Creatinine Ratio 23.4 H (6-22) Glucose 92 (70-100) mg/dL Calcium 8.5 (8.4-10.2) mg/dL Magnesium 2.2 (1.6-2.3) mg/dL Total Bilirubin 0.4 (0.2-1.3) mg/dL AST 23 (14-36) IU/L ALT 13 (<35) IU/L Alkaline Phosphatase 72 (38-126) U/L Total Creatine Kinase 70 (30-135) U/L CK-MB (CK-2) TNP CK-MB (CK-2) Rel Index TNP Troponin I < 0.012 (0.01-0.034) ng/mL Total Protein 7.1 (6.3-8.2) g/dL Albumin 4.2 (3.5-5.0) g/dL Globulin 2.9 (1.7-4.1) g/dL Albumin/Globulin Ratio 1.4 (1.0-2.8) COVID-19 PCR (Negative) 02/17/20 Range/Units 20:35 WBC (4.5-11.0) X10^3/uL RBC (4.0-5.2) X10^6/uL Hgb (12.0-16.0) g/dL Hct (36-46) % MCV (80-100) fL MCH (26-34) PG MCHC (30-36) % RDW (11.6-14.8) % Plt Count (150-400) X10^3/uL Neut % (Auto) (50-75) % Lymph % (Auto) (25-40) % Cochran % (Auto) (3-14) % Eos % (Auto) (2-4) % Baso % (Auto) (0-2) % Neut # (Auto) (9385-0524) /uL Lymph # (Auto) (9630-0323) /uL Cochran # (Auto) (0-900) /uL Eos # (Auto) (0-450) /uL Baso # (Auto) (0-100) /uL Sodium (137-145) mmol/L Potassium (3.4-5.1) mmol/L Chloride (98-107) mmol/L Carbon Dioxide (22-32) mmol/L BUN (7-17) mg/dL Creatinine (0.52-1.04) mg/dL Estimated GFR (>60) mL/min BUN/Creatinine Ratio (6-22) Glucose (70-100) mg/dL Calcium (8.4-10.2) mg/dL Magnesium (1.6-2.3) mg/dL Total Bilirubin (0.2-1.3) mg/dL AST (14-36) IU/L ALT (<35) IU/L Alkaline Phosphatase (38-126) U/L Total Creatine Kinase (30-135) U/L CK-MB (CK-2) CK-MB (CK-2) Rel Index Troponin I (0.01-0.034) ng/mL Total Protein (6.3-8.2) g/dL Albumin (3.5-5.0) g/dL Globulin (1.7-4.1) g/dL Albumin/Globulin Ratio (1.0-2.8) COVID-19 PCR Negative (Negative) Imaging Data CT scan soft tissue neck with IV contrast: Radiologist's Impression: [address] [id number] Scan ReportSigned Patient: Nai Zeng SMR#: [id number]: 1Acct:[id number]/Sex: 59 / FDate of Service: 02/17/20Loc: EDAccession Number: [id number] Procedure: CT soft tissue neck w con Ordering Provider: Duy Mata MD PROCEDURE: CT SOFT TISSUE NECK W CON INDICATIONS: throat tightness TECHNIQUE: After the administration of intravenous contrast, 3.0 mm axial sections acquired from the sella to the aortic arch. Additional oblique axial 3.0 mm sections acquired through the pharynx. 3 mm thick coronal and sagittal reformats were generated. For radiation dose reduction, the following was used: automated exposure control. COMPARISON: [facility], CT, CT SOFT TISSUE NECK W CON, 05/24/2018, 15:41. [facility], CT, CT SOFT TISSUE NECK W CON, 07/30/2018, 18:14. [facility], CT, CT SOFT TISSUE NECK W CON, 03/21/2019, 0:16. [facility], CT, CT SOFT TISSUE NECK W CON, 07/06/2019, 22:31. FINDINGS: Image quality: Excellent. Lymph nodes: No new enlarged lymph nodes in the neck by size criteria. Prominent subcentimeter subpectoral lymph nodes are again noted bilaterally, similar to the prior studies. Vessels: Visualized vasculature appears patent. Neck spaces: Extensive postsurgical changes are redemonstrated status post prior laryngectomy, bilateral neck dissection, and myocutaneous flap placement which appear similar to the prior studies. Mild asymmetric mucosal thickening within the left piriform sinus also appears similar to the prior studies. A patent tracheostomy tube is redemonstrated. The visualized trachea also appears patent extending to the christy. There is persistent mild concentric wall thickening within the visualized proximal esophagus. Fatty atrophy of the base of tongue redemonstrated. Glands: The parotid and submandibular glands appear grossly preserved. The thyroid gland is surgically absent. Miscellaneous: Visualized brain and orbits appear normal. The visualized lungs redemonstrate bilateral medial scarring in the apices compatible with radiation pneumonitis. Superficial soft tissues appear normal. Bones: No suspicious bony lesions. Visualized sinuses are clear. There is partial opacification of the left mastoid air cells. IMPRESSION: 1. Extensive postsurgical and post radiation changes appear similar to the prior studies. 2. Tracheostomy tube appears patent as well as the subsequent trachea to the level of the christy. 3. Mild concentric wall thickening of the visualized proximal esophagus again noted. Dictated by: Atul Lechuga M.D. on 02/17/2020 at 21:13 Approved by: Atul Lechuga M.D. on 02/17/2020 at 21:23 ECG Data Attestation: I personally reviewed and interpreted this ECG as follows: Interpretation: Normal sinus rhythm, no ST elevation depression. MDM Narrative Medical decision making narrative: Appropriate for discharge home. Not toxic. Not dyspneic. This is chronic neck pain with radiation pain postprocedure as well as irritation skin/bleeding likely from radiation as well as irritation from the strap around the neck to hold tracheostomy in place. Patient already has wound management that sees her once a month. Just saw the wound management last week for the neck ulcerations. Normal white cell count. CT scan imaging unchanged from previous CT scan of the neck July 06 2019. No repeat x-ray indicated. Lung sounds are normal with no hypoxia. No retractions Discharge Plan Departure Patient Disposition: Home Clinical Impression: Non-healing wound Chronic pain Qualifiers: Chronic pain type: other chronic postprocedural pain Qualified Code(s): G89.28 - Other chronic postprocedural pain Instructions: DI for Chronic Pain -- Adult Activity Restrictions/Additional Instructions: No driving or operating machinery tonight. Return if worse. Return if any questions or concerns. See your wound management service team next week for recheck of your chronic neck wounds. See family doctor to inquire about sleep aid medication. Prescriptions: New oxycodone-acetaminophen [Percocet] 5-325 mg tablet 1 tab PO Q8H PRN (Reason: pain) Qty: 10 RF: 0 No Action albuterol sulfate 2.5 MG/3 ML solution for nebulization 1 dose Inhalation QIDP PRN (Reason: Shortness Of Breath) Qty: 180 RF: 0 docusate sodium 100 MG capsule 100 mg PO BID Qty: 0 RF: 0 acetaminophen 325 MG tablet 325 mg PO Q6HP PRN (Reason: Pain, Moderate) Qty: 0 RF: 0 amitriptyline 25 MG tablet 25 mg PO BEDTIME Qty: 0 RF: 0 ascorbic acid (vitamin C) 500 MG tablet 500 mg PO DAILY Qty: 0 RF: 0 fexofenadine 180 MG tablet 180 mg PO DAILY Qty: 0 RF: 0 nystatin 100,000 UNIT/1 ML suspension 1 dose PO DIRECTED PRN (Reason: thrush) Qty: 0 RF: 0 sodium chloride 0.9 % 10 ML solution 1 vial QID PRN (Reason: irrigate tracheostomy) Qty: 0 RF: 0 fexofenadine [Allergy Relief (fexofenadine)] 180 mg tablet RF: 0 citalopram 40 mg tablet 40 mg PO DAILY RF: 0 lisinopril 10 mg tablet 10 mg PO BID RF: 0 estradiol 1 mg tablet 1 mg PO DAILY RF: 0 omeprazole 40 mg capsule,delayed release(DR/EC) 40 mg PO DAILY RF: 0 mupirocin 2 % ointment 1 applictn TOP BID Qty: 15 RF: 0 fluticasone propionate [Flonase Allergy Relief] 50 mcg/actuation spray,suspension 1 spray NASAL BID PRN (Reason: congestion) Qty: 11.1 RF: 0 epinephrine 0.3 mg/0.3 mL auto-injector 0.3 mg IM Q5-15M PRN (Reason: anaphylaxis) Qty: 1 RF: 0 levothyroxine 88 mcg tablet 88 mcg PO DAILY RF: 0 gentamicin 0.1 % ointment 1 applic topical DIRECTED RF: 0 lidocaine 5 % adhesive patch,medicated 1 patch TOP DAILY Qty: 15 RF: 0 tramadol 50 mg tablet 50 mg PO Q8H PRN (Reason: severe pain) Qty: 10 RF: 0 prednisone 20 mg tablet 40 mg PO DAILY Qty: 10 RF: 0 doxycycline hyclate 100 mg capsule 100 mg PO BID Qty: 20 RF: 0 hydrocodone-acetaminophen [[place]] 5-325 mg tablet 1 tab PO Q4-6H PRN (Reason: pain) Qty: 12 RF: 0 ipratropium-albuterol 0.5 mg-3 mg(2.5 mg base)/3 mL solution for nebulization 3 ml INHALATION Q4H PRN (Reason: shortness of breath or wheezing) Qty: 90 RF: 0 albuterol sulfate 2.5 mg /3 mL (0.083 %) solution for nebulization 2.5 mg INHALATION Q4H PRN (Reason: shortness of breath or wheezing) Qty: 90 RF: 0 doxycycline hyclate 100 mg tablet 100 mg PO BID Qty: 20 RF: 0 tramadol 50 mg tablet 50 mg PO Q8H PRN (Reason: pain) Qty: 10 RF: 0 Referrals: Eusebio Hammer MD [Primary Care Provider] -
[2020-02-17 20:38] VITALS: BP 129/80; PULSE 76; O2SAT 98
--- NOTE | 2020-02-17 20:39 | DI.CT.S_ITS ---
PROCEDURE: CT SOFT TISSUE NECK W CON INDICATIONS: throat tightness TECHNIQUE: After the administration of intravenous contrast, 3.0 mm axial sections acquired from the sella to the aortic arch. Additional oblique axial 3.0 mm sections acquired through the pharynx. 3 mm thick coronal and sagittal reformats were generated. For radiation dose reduction, the following was used: automated exposure control. COMPARISON: [facility], CT, CT SOFT TISSUE NECK W CON, 05/24/2018, 15:41. [facility], CT, CT SOFT TISSUE NECK W CON, 07/30/2018, 18:14. [facility], CT, CT SOFT TISSUE NECK W CON, 03/21/2019, 0:16. [facility], CT, CT SOFT TISSUE NECK W CON, 07/06/2019, 22:31. FINDINGS: Image quality: Excellent. Lymph nodes: No new enlarged lymph nodes in the neck by size criteria. Prominent subcentimeter subpectoral lymph nodes are again noted bilaterally, similar to the prior studies. Vessels: Visualized vasculature appears patent. Neck spaces: Extensive postsurgical changes are redemonstrated status post prior laryngectomy, bilateral neck dissection, and myocutaneous flap placement which appear similar to the prior studies. Mild asymmetric mucosal thickening within the left piriform sinus also appears similar to the prior studies. A patent tracheostomy tube is redemonstrated. The visualized trachea also appears patent extending to the christy. There is persistent mild concentric wall thickening within the visualized proximal esophagus. Fatty atrophy of the base of tongue redemonstrated. Glands: The parotid and submandibular glands appear grossly preserved. The thyroid gland is surgically absent. Miscellaneous: Visualized brain and orbits appear normal. The visualized lungs redemonstrate bilateral medial scarring in the apices compatible with radiation pneumonitis. Superficial soft tissues appear normal. Bones: No suspicious bony lesions. Visualized sinuses are clear. There is partial opacification of the left mastoid air cells. IMPRESSION: 1. Extensive postsurgical and post radiation changes appear similar to the prior studies. 2. Tracheostomy tube appears patent as well as the subsequent trachea to the level of the christy. 3. Mild concentric wall thickening of the visualized proximal esophagus again noted. Dictated by: Atul Lechuga M.D. on 02/17/2020 at 21:13 Approved by: Atul Lechuga M.D. on 02/17/2020 at 21:23
[2020-02-17 20:42] LABS: Add Manual Diff / Slide Review NO; Basophils Absolute Auto 100 /uL (0-100); Basophils Percent Auto 0.8 % (0-2); Eosinophils Absolute Auto 300 /uL (0-450); Eosinophils Percent Auto 3.4 % (2-4); Hematocrit 38.3 % (36-46); Hemoglobin 12.7 g/dL (12.0-16.0); Lymphocytes Absolute Auto 1200 /uL (1100-4500); Lymphocytes Percent Auto 12.1 % (25-40); Mean Corpuscular Hemoglobin 29.6 PG (26-34); Mean Corpuscular Volume 89.6 fL (80-100); Monocytes Absolute Auto 1000 /uL (0-900); Monocytes Percent Auto 9.6 % (3-14); Neutrophils Absolute Auto 7500 /uL (1500-7000); Neutrophils Percent Auto 74.1 % (50-75); Platelet Count 329 X10^3/uL (150-400); Red Blood Cell Count 4.28 X10^6/uL (4.0-5.2); White Blood Cell Count 10.2 X10^3/uL (4.5-11.0)
[2020-02-17] MEDS: methylPREDNISolone 125 MG/2 ML VIAL IV (20:43)
[2020-02-17] MEDS: SODIUM CHLORIDE 0.9% 500 ML 1000 ML IV (20:43)
[2020-02-17] MEDS: ALBUTEROL/IPRATROPIUM 3 ML AMPUL INH (20:50)
[2020-02-17 20:51] VITALS: O2SAT 97
[2020-02-17 20:54] LABS: Creatine Kinase 70 U/L (30-135); Magnesium 2.2 mg/dL (1.6-2.3)
[2020-02-17 20:55] LABS: Alanine Aminotransferase 13 IU/L (<35); Albumin 4.2 g/dL (3.5-5.0); Albumin Globulin Ratio 1.4 (1.0-2.8); Alkaline Phosphatase 72 U/L (38-126); Aspartate Aminotransferase 23 IU/L (14-36); BUN Creatinine Ratio 23.4 (6-22); Bilirubin Total 0.4 mg/dL (0.2-1.3); Blood Urea Nitrogen 15 mg/dL (7-17); Calcium 8.5 mg/dL (8.4-10.2); Carbon Dioxide 31 mmol/L (22-32); Chloride 100 mmol/L (98-107); Estimated Glomerular Filt Rate > 60.0 mL/min (>60); Globulin 2.9 g/dL (1.7-4.1); Glucose 92 mg/dL (70-100); HEMOLYSIS < 15 (0-50); Potassium 4.2 mmol/L (3.4-5.1); Sodium 134 mmol/L (137-145); Total Protein 7.1 g/dL (6.3-8.2)
[2020-02-17 21:00] LABS: COVID19 -Nasal RAPID Negative (Negative)
[2020-02-17 21:07] LABS: Troponin I < 0.012 ng/mL (0.01-0.034)
[2020-02-17 22:00] VITALS: PULSE 77; O2SAT 97
[2020-02-17] MEDS: ONDANSETRON 4 MG/2 ML INJ IV (22:31)
[2020-02-17] MEDS: MORPHINE 4 MG/ML INJ IV (22:31)
[2020-02-17 23:03] VITALS: BP 134/83; PULSE 74; O2SAT 92
== END 2020-02-17 23:45 | disposition home or self-care (01) ==
PROVIDERS: Emergency Provider Emergency Medicine; PCP Internal Medicine
DX: J04.10 Acute tracheitis without obstruction (principal); R07.0 Pain in throat; G89.28 Other chronic postprocedural pain; J45.909 Unspecified asthma, uncomplicated; R06.02 Shortness of breath; C32.9 Malignant neoplasm of larynx, unspecified
CPT/HCPCS: 36415; 70491; 80053; 82550; 83735; 84484; 85025; 87635; 93005; 93010; 94640; 96361; 96374; 96375; 99284; J2270; J2405; J2930; Q9967

== ENCOUNTER 2020-02-20 19:51 | Emergency (ER) | payer OTHER, MEDICAID, SELFPAY ==
[2018-10-27 03:00] VITALS: BMI 40.3
[2020-02-20] VITALS (11 sets, daily range): BP systolic 93–169; BP diastolic 51–90; PULSE 101–115; RESP 13–57; TEMP 36.6; O2SAT 91–99
--- NOTE | 2020-02-20 20:13 | ED_ITS ---
HPI - General Adult General Chief complaint: Shortness of Breath/Dyspnea Stated complaint: COUGH UP BLOOD NOT BREATHING WELL Time Seen by Provider: 02/20/20 19:53 Source: patient Mode of arrival: Wheelchair Limitations: no limitations History of Present Illness HPI narrative: Patient is a 59-year-old female who was seen in this emergency department a couple days ago for symptoms of her similar brought her in today. At that time she was diagnosed with tracheitis in according to the no was given a prescription for antibiotics however the patient states she never received a prescription so she has not been on any antibiotics. She is also having quite a bit of discomfort at the raw areas on her neck. She sees Wound Care for these. She feels like symptoms redness not getting better from her last visit. Related Data Home Medications Medication Instructions Recorded Confirmed albuterol sulfate 1 dose INHALATION QIDP PRN #180 01/25/16 03/25/19 docusate sodium 100 mg PO BID #0 01/25/16 03/25/19 acetaminophen 325 mg PO Q6HP PRN #0 10/29/16 03/25/19 amitriptyline 25 mg PO BEDTIME #0 01/22/17 03/25/19 ascorbic acid (vitamin C) 500 mg PO DAILY #0 06/10/17 03/25/19 fexofenadine 180 mg PO DAILY #0 06/10/17 03/25/19 nystatin 1 dose PO DIRECTED PRN #0 06/10/17 03/25/19 sodium chloride 0.9 % 1 vial QID PRN #0 06/10/17 03/25/19 citalopram 40 mg PO DAILY 09/21/17 03/25/19 lisinopril 10 mg PO BID 09/21/17 03/25/19 levothyroxine 88 mcg PO DAILY 01/04/18 03/25/19 estradiol 1 mg PO DAILY 01/25/18 03/25/19 gentamicin 1 applic TOPICAL DIRECTED 05/24/18 03/25/19 omeprazole 40 mg PO DAILY 07/30/18 03/25/19 fexofenadine [Allergy Relief mg 08/21/19 (fexofenadine)] Previous Rx's Medication Instructions Recorded mupirocin 1 applictn TOP BID #15 gram 02/06/19 lidocaine 1 patch TOP DAILY #15 each 03/25/19 tramadol 50 mg PO Q8H PRN #10 tab 03/25/19 fluticasone propionate [Flonase 1 spray NASAL BID PRN #11.1 ml 08/21/19 Allergy Relief] albuterol sulfate 2.5 mg INHALATION Q4H PRN #90 ml 10/10/19 doxycycline hyclate 100 mg PO BID #20 cap 10/10/19 hydrocodone-acetaminophen [[place]] 1 tab PO Q4-6H PRN #12 tab 10/10/19 ipratropium-albuterol 3 ml INHALATION Q4H PRN #90 ml 10/10/19 prednisone 40 mg PO DAILY #10 tab 10/10/19 epinephrine 0.3 mg IM Q5-15M PRN #1 each 10/14/19 doxycycline hyclate 100 mg PO BID #20 tab 02/03/20 tramadol 50 mg PO Q8H PRN #10 tab 02/04/20 oxycodone-acetaminophen [Percocet] 1 tab PO Q8H PRN #10 tab 02/17/20 azithromycin 250 mg PO DAILY 4 Days #4 tab 02/20/20 Allergies Allergy/AdvReac Type Severity Reaction Status Date / Time hydrocodone Allergy Intermediate RASH/HIVES Verified 10/21/19 21:32 Penicillins Allergy Intermediate RASH/HIVES Verified 10/21/19 21:32 metronidazole Allergy Mild RASH Verified 10/21/19 21:32 diphenhydramine Allergy Unknown Verified 10/21/19 21:32 [DIPHENHYDRAMINE] ibuprofen Allergy Unknown Verified 10/21/19 21:32 venom-wasp Allergy Verified 10/21/19 21:32 ranitidine AdvReac Intermediate SOB/DIZZY Verified 10/21/19 21:32 sulfamethoxazole AdvReac Mild GI UPSET Verified 10/21/19 21:32 [From Bactrim] trimethoprim [From Bactrim] AdvReac Mild GI UPSET Verified 10/21/19 21:32 fentanyl [FENTANYL] AdvReac Unknown vomiting Verified 10/21/19 21:32 ANTACIDS AdvReac Unknown Uncoded 10/14/19 14:41 Review of Systems Constitutional Constitutional: Reports body ache(s), Denies fever(s) and Reports headache(s) ENT Ears, Nose, Mouth, and Throat: Reports headache(s) Cardiovascular Cardiovascular: Reports dyspnea Respiratory Respiratory: Reports cough and Reports dyspnea Integumentary/Breasts Comments: Burning at the wounds around her tracheostomy site Neurologic Neurologic: Denies behavioral changes and Reports headache(s) Psychiatric Psychiatric: Denies behavioral changes Hematologic/Lymphatic Hematologic/Lymphatic: Denies easy bleeding and Denies easy bruising Allergic/Immunologic Allergic/Immunologic: Denies urticaria Patient History Medical History Chronic pain Community acquired pneumonia Laryngeal cancer MRSA (methicillin resistant Staphylococcus aureus) Otitis media, purulent, acute, with spontaneous rupture of TM Tracheobronchitis Tracheostomy complication Surgical History History of hysterectomy Hx of appendectomy Social History household members: significant other Smoking Status: Former smoker alcohol intake: former Smoking Status: Former smoker alcohol intake frequency: 0-2 drinks per day Substance Use Type: does not use Exam Initial Vital Signs Initial Vital Signs: Vital Signs Temperature 97.9 F 02/20/20 19:58 Pulse Rate 110 H 02/20/20 19:58 Respiratory Rate 20 02/20/20 19:58 Blood Pressure 169/90 H 02/20/20 19:58 Pulse Oximetry 99 02/20/20 19:58 Const Limitations: mental status not altered HENMT Head: normal to inspection and normocephalic Eyes Other: Findings consistent with a stye left lower eyelid Resp Effort & Inspection: cough and not labored Auscultation: wheezes Cardio Rate: tachycardic Rhythm: regular rhythm Skin Other: Patient with chronic open wounds bilateral neck where the band for her tracheostomy is located. She also has a quarter sized area on her left upper arm for which she is concerned about. Extrem General: capillary refill normal Psych Appearance: grossly normal and well kempt Course Orders Ordered: ED Orders 02/20/20 20:00 COVID19 Stat 02/20/20 20:17 RT Consult Eval and Treat Now 02/20/20 21:35 HSV Culture Without Typing Stat Wound Culture and Gram Stain Stat Wound Culture and Gram Stain Stat Discontinued Medications Acetaminophen (Acetaminophen 325 Mg Tablet) 650 mg PO NOW ONE Stop: 02/20/20 22:39 Last Admin: 02/20/20 22:46 Dose: 650 mg Documented by: JAMMIE Albuterol/Ipratropium (Albuterol/Ipratropium 3 Ml Ampul) 3 ml INH NOW ONE Stop: 02/20/20 20:25 Last Admin: 02/20/20 20:27 Dose: 3 ml Documented by: JOSIAH Azithromycin (Azithromycin 250 Mg Tablet) 500 mg PO NOW ONE Stop: 02/20/20 21:46 Last Admin: 02/20/20 21:48 Dose: 500 mg Documented by: JAMMIE Lorazepam (Lorazepam 0.5 Mg Tablet) 1 mg PO NOW ONE Stop: 02/20/20 20:41 Last Admin: 02/20/20 20:53 Dose: 1 mg Documented by: JAMMIE Vital Signs Vital signs: Vital Signs - 8 hr 02/20/20 19:58 02/20/20 19:59 02/20/20 20:00 Temperature 97.9 F Pulse Rate 110 H 115 H 113 H Respiratory Rate 20 57 H 31 H Blood Pressure 169/90 H 169/88 H Pulse Oximetry 99 96 91 02/20/20 20:30 02/20/20 20:31 02/20/20 21:00 Temperature Pulse Rate 101 H 101 H 108 H Respiratory Rate 13 14 Blood Pressure 93/51 L Pulse Oximetry 97 98 94 02/20/20 21:30 02/20/20 21:31 02/20/20 22:00 Temperature Pulse Rate 104 H 104 H 108 H Respiratory Rate 18 18 24 Blood Pressure 163/67 H Pulse Oximetry 96 98 97 02/20/20 22:01 02/20/20 22:30 Temperature Pulse Rate 104 H 101 H Respiratory Rate 17 18 Blood Pressure 156/72 H 117/69 Pulse Oximetry 96 95 Medical Decision Making Lab Data Labs: Lab Results 02/20/20 Range/Units 20:00 COVID-19 PCR Negative (Negative) MDM Narrative Medical decision making narrative: Patient is very anxious. She states she feels better after Ativan and a breathing treatment here in the emergency department. I am unsure as to what happened with the antibiotics as review of the prior note states that she was going to be put on antibiotics however she shows me the discharge paperwork from that visit and there is no antibiotic listed. Will send her home with azithromycin. She was given a dose here and a prescription for the remainder. She left with the prescription in her hand. She also has a prescription for pain medication given during her last visit. S he has eye complaints. Her physical exam is consistent with a stye. She has a burning area on her left upper arm the posterior region which I am unsure the exact etiology. He does has some findings concerning for a herpes infection which she has never had this in the past. A wound culture and herpes cultures were obtained. Will hold on any treatment until these results. She also has chronic neck wounds for which she sees Wound Care. I did culture these wounds today. Informed her that we should hold on any antibiotics specifically for these until this culture results. She is having quite a bit discomfort in the area and I am unsure as to how to keep this from happening as the bandages over the area do not seem to be fitting well. Unfortunately we do not have anything better in the emergency department. Informed her that she needed to contact her retail customer service specialist tomorrow for follow-up as they may have better dressings. I feel patient can be discharged home. She was given return precautions. Discharge Plan Departure Patient Disposition: Home Clinical Impression: Non-healing wound Acute tracheitis Qualifiers: Airway obstruction: without obstruction Qualified Code(s): J04.10 - Acute tracheitis without obstruction Instructions: Skin Wound Activity Restrictions/Additional Instructions: Take the prescription for the antibiotics that you were given today and start taking them tomorrow 02/21/20 as directed. Also recommend that you contact your retail customer service specialist to discuss other bandages that she continues on your neck wounds. Continue all of the rest your medications as directed. Contact your primary provider for follow-up. Prescriptions: New azithromycin 250 mg tablet 250 mg PO DAILY 4 Days Qty: 4 RF: 0 No Action albuterol sulfate 2.5 MG/3 ML solution for nebulization 1 dose Inhalation QIDP PRN (Reason: Shortness Of Breath) Qty: 180 RF: 0 docusate sodium 100 MG capsule 100 mg PO BID Qty: 0 RF: 0 acetaminophen 325 MG tablet 325 mg PO Q6HP PRN (Reason: Pain, Moderate) Qty: 0 RF: 0 amitriptyline 25 MG tablet 25 mg PO BEDTIME Qty: 0 RF: 0 ascorbic acid (vitamin C) 500 MG tablet 500 mg PO DAILY Qty: 0 RF: 0 fexofenadine 180 MG tablet 180 mg PO DAILY Qty: 0 RF: 0 nystatin 100,000 UNIT/1 ML suspension 1 dose PO DIRECTED PRN (Reason: thrush) Qty: 0 RF: 0 sodium chloride 0.9 % 10 ML solution 1 vial QID PRN (Reason: irrigate tracheostomy) Qty: 0 RF: 0 fexofenadine [Allergy Relief (fexofenadine)] 180 mg tablet RF: 0 citalopram 40 mg tablet 40 mg PO DAILY RF: 0 lisinopril 10 mg tablet 10 mg PO BID RF: 0 estradiol 1 mg tablet 1 mg PO DAILY RF: 0 omeprazole 40 mg capsule,delayed release(DR/EC) 40 mg PO DAILY RF: 0 mupirocin 2 % ointment 1 applictn TOP BID Qty: 15 RF: 0 fluticasone propionate [Flonase Allergy Relief] 50 mcg/actuation spray,suspension 1 spray NASAL BID PRN (Reason: congestion) Qty: 11.1 RF: 0 epinephrine 0.3 mg/0.3 mL auto-injector 0.3 mg IM Q5-15M PRN (Reason: anaphylaxis) Qty: 1 RF: 0 oxycodone-acetaminophen [Percocet] 5-325 mg tablet 1 tab PO Q8H PRN (Reason: pain) Qty: 10 RF: 0 levothyroxine 88 mcg tablet 88 mcg PO DAILY RF: 0 gentamicin 0.1 % ointment 1 applic topical DIRECTED RF: 0 lidocaine 5 % adhesive patch,medicated 1 patch TOP DAILY Qty: 15 RF: 0 tramadol 50 mg tablet 50 mg PO Q8H PRN (Reason: severe pain) Qty: 10 RF: 0 prednisone 20 mg tablet 40 mg PO DAILY Qty: 10 RF: 0 doxycycline hyclate 100 mg capsule 100 mg PO BID Qty: 20 RF: 0 hydrocodone-acetaminophen [[place]] 5-325 mg tablet 1 tab PO Q4-6H PRN (Reason: pain) Qty: 12 RF: 0 ipratropium-albuterol 0.5 mg-3 mg(2.5 mg base)/3 mL solution for nebulization 3 ml INHALATION Q4H PRN (Reason: shortness of breath or wheezing) Qty: 90 RF: 0 albuterol sulfate 2.5 mg /3 mL (0.083 %) solution for nebulization 2.5 mg INHALATION Q4H PRN (Reason: shortness of breath or wheezing) Qty: 90 RF: 0 doxycycline hyclate 100 mg tablet 100 mg PO BID Qty: 20 RF: 0 tramadol 50 mg tablet 50 mg PO Q8H PRN (Reason: pain) Qty: 10 RF: 0 Referrals: Eusebio Hammer MD [Primary Care Provider] -
[2020-02-20 20:17] LABS: COVID19 -Nasal RAPID Negative (Negative)
[2020-02-20] MEDS: ALBUTEROL/IPRATROPIUM 3 ML AMPUL INH (20:27)
[2020-02-20] MEDS: LORazepam 0.5 MG TABLET 1 MG PO (20:53)
[2020-02-20] MEDS: AZITHROMYCIN 250 MG TABLET 500 MG PO (21:48)
[2020-02-20] MEDS: ACETAMINOPHEN 325 MG TABLET 650 MG PO (22:46)
[2020-02-26 16:08] LABS: HSV Culture Without Typing Negative (.)
== END 2020-02-20 22:52 | disposition home or self-care (01) ==
PROVIDERS: Emergency Provider Emergency Medicine; PCP Internal Medicine
DX: J04.10 Acute tracheitis without obstruction (principal); R51.9 Headache, unspecified; R06.00 Dyspnea, unspecified; R05 Cough
CPT/HCPCS: 87070; 87075; 87077; 87147; 87186; 87205; 87255; 87635; 94640; 99281; 99283

== ENCOUNTER → 2020-03-06 14:49 | Outpatient (CLI) | payer OTHER, MEDICAID, SELFPAY ==
[2018-10-27 03:00] VITALS: BMI 40.3
== END ==
PROVIDERS: PCP Internal Medicine; Referring Provider Internal Medicine; Visit Provider Family Medicine
DX: S11.80XA Unspecified open wound of other specified part of neck, initial encounter (principal)
CPT/HCPCS: 99212

== ENCOUNTER → 2020-03-13 14:47 | Outpatient (CLI) | payer OTHER, MEDICAID, SELFPAY ==
[2018-10-27 03:00] VITALS: BMI 40.3
== END ==
PROVIDERS: PCP Internal Medicine; Referring Provider Internal Medicine; Visit Provider Family Medicine
DX: S11.89XA Other open wound of other specified part of neck, initial encounter (principal); S51.801A Unspecified open wound of right forearm, initial encounter; S41.102A Unspecified open wound of left upper arm, initial encounter; L59.8 Other specified disorders of the skin and subcutaneous tissue related to radiation; L08.9 Local infection of the skin and subcutaneous tissue, unspecified; B95.62 Methicillin resistant Staphylococcus aureus infection as the cause of diseases classified elsewhere; Z90.02 Acquired absence of larynx; Z93.0 Tracheostomy status
CPT/HCPCS: 11042; 97597; 97598; 99214

== ENCOUNTER → 2020-03-13 16:16 | Outpatient (CLI) | payer OTHER, MEDICAID, SELFPAY ==
[2018-10-27 03:00] VITALS: BMI 40.3
[2020-03-13 16:36] LABS: Add Manual Diff / Slide Review NO; Basophils Absolute Auto 100 /uL (0-100); Basophils Percent Auto 1.2 % (0-2); Eosinophils Absolute Auto 400 /uL (0-450); Eosinophils Percent Auto 4.1 % (2-4); Hematocrit 37.6 % (36-46); Hemoglobin 12.6 g/dL (12.0-16.0); Lymphocytes Absolute Auto 900 /uL (1100-4500); Lymphocytes Percent Auto 8.4 % (25-40); Mean Corpuscular HGB Conc 33.5 % (30-36); Mean Corpuscular Hemoglobin 30.1 PG (26-34); Mean Corpuscular Volume 89.9 fL (80-100); Monocytes Absolute Auto 900 /uL (0-900); Monocytes Percent Auto 8.5 % (3-14); Neutrophils Absolute Auto 8100 /uL (1500-7000); Neutrophils Percent Auto 77.8 % (50-75); Platelet Count 303 X10^3/uL (150-400); Red Blood Cell Count 4.18 X10^6/uL (4.0-5.2); Red Cell Distribution Width 14.3 % (11.6-14.8); White Blood Cell Count 10.4 X10^3/uL (4.5-11.0)
[2020-03-13 16:52] LABS: BUN Creatinine Ratio 24.6 (6-22); Blood Urea Nitrogen 15 mg/dL (7-17); Calcium 8.5 mg/dL (8.4-10.2); Carbon Dioxide 33 mmol/L (22-32); Chloride 102 mmol/L (98-107); Estimated Glomerular Filt Rate > 60.0 mL/min (>60); Glucose 87 mg/dL (70-100); HEMOLYSIS < 15 (0-50); Sodium 137 mmol/L (137-145)
[2020-03-13 17:29] LABS: Thyroid Stimulating Hormone 2.42 uIU/mL (0.47-4.68)
== END ==
PROVIDERS: PCP Internal Medicine; Referring Provider Internal Medicine; Visit Provider Internal Medicine
DX: I10 Essential (primary) hypertension (principal)
CPT/HCPCS: 36415; 80048; 84443; 85025

== ENCOUNTER 2020-04-13 19:16 | Emergency (ER) | payer OTHER, MEDICAID, SELFPAY ==
[2018-10-27 03:00] VITALS: BMI 40.3
[2020-04-13] VITALS (9 sets, daily range): BP systolic 124–147; BP diastolic 60–69; PULSE 73–88; RESP 26; TEMP 36.8; O2SAT 87–96; BMI 33.9
--- NOTE | 2020-04-13 19:30 | DI.RAD.S_ITS ---
PROCEDURE: XR CHEST 2V INDICATIONS: SOB TECHNIQUE: 2 views of the chest were acquired. COMPARISON: , , XR CHEST 1V, 02/03/2020, 20:35. FINDINGS: Limited by patient positioning Surgical changes and devices: Surgical clips overlie the lower neck and upper chest. Tracheostomy tube is unchanged. Lungs and pleura: No focal consolidation, pneumothorax, or pleural effusion. Stable eventration of the right hemidiaphragm. Mediastinum: Mediastinal contours are normal. Heart size is normal. Bones and chest wall: No suspicious bony abnormalities. Soft tissues appear unremarkable. IMPRESSION: No evidence of an acute cardiopulmonary abnormality. Dictated by: Corbin Peguero D.O. on 04/14/2020 at 6:50 Approved by: Corbin Peguero D.O. on 04/14/2020 at 6:52
--- NOTE | 2020-04-13 20:15 | RT ---
Paged by RN to assess pt. Pt has a size 10 laryngectomy tube. Removed and disposed of HME due to cleanliness. Pt is not in respiratory distress, RA 96%. Pt is in a lot of pain when laryngectomy tube is pushed in and pain radiates toward left side of neck per pt. Suctioned pt and got small amount blood-streaked sputum.
--- NOTE | 2020-04-13 20:17 | ED.SOB ---
HPI - SOB/Dyspnea General Chief Complaint: Shortness of Breath/Dyspnea Stated Complaint: Airway Obstruction Time Seen by Provider: 04/13/20 19:20 Source: patient and EMS Mode of arrival: EMS Limitations: language barrier and other History of Present Illness HPI Narrative: 59F former smoker known well to the facility and staff presents with the chief complaint of anxiety, Neck pain and increased redness of skin underneath her tracheostomy over the day. She states she's been clearing sputum from her tube as well. She denies fever or chills. She's had no N/V. She states she has pain under the strap of her device on her anterior neck and the drainage of clearish/yellowish fluid. She has an appointent on Thursday with her doctors at the . She has shortness of breath which is making her anxious. MD Complaint: shortness of breath Onset (ago): hour(s) Severity: moderate Consistency/Duration: constant Relieving factors: nothing Exacerbating factors: nothing Treatment prior to arrival: none Related Data Home Medications Medication Instructions Recorded Confirmed albuterol sulfate 1 dose INHALATION QIDP PRN #180 01/25/16 03/25/19 docusate sodium 100 mg PO BID #0 01/25/16 03/25/19 acetaminophen 325 mg PO Q6HP PRN #0 10/29/16 03/25/19 amitriptyline 25 mg PO BEDTIME #0 01/22/17 03/25/19 ascorbic acid (vitamin C) 500 mg PO DAILY #0 06/10/17 03/25/19 fexofenadine 180 mg PO DAILY #0 06/10/17 03/25/19 nystatin 1 dose PO DIRECTED PRN #0 06/10/17 03/25/19 sodium chloride 0.9 % 1 vial QID PRN #0 06/10/17 03/25/19 citalopram 40 mg PO DAILY 09/21/17 03/25/19 lisinopril 10 mg PO BID 09/21/17 03/25/19 levothyroxine 88 mcg PO DAILY 01/04/18 03/25/19 estradiol 1 mg PO DAILY 01/25/18 03/25/19 gentamicin 1 applic TOPICAL DIRECTED 05/24/18 03/25/19 omeprazole 40 mg PO DAILY 07/30/18 03/25/19 fexofenadine [Allergy Relief mg 08/21/19 (fexofenadine)] Previous Rx's Medication Instructions Recorded mupirocin 1 applictn TOP BID #15 gram 02/06/19 lidocaine 1 patch TOP DAILY #15 each 03/25/19 tramadol 50 mg PO Q8H PRN #10 tab 03/25/19 fluticasone propionate [Flonase 1 spray NASAL BID PRN #11.1 ml 08/21/19 Allergy Relief] albuterol sulfate 2.5 mg INHALATION Q4H PRN #90 ml 10/10/19 doxycycline hyclate 100 mg PO BID #20 cap 10/10/19 hydrocodone-acetaminophen [[place]] 1 tab PO Q4-6H PRN #12 tab 10/10/19 ipratropium-albuterol 3 ml INHALATION Q4H PRN #90 ml 10/10/19 prednisone 40 mg PO DAILY #10 tab 10/10/19 epinephrine 0.3 mg IM Q5-15M PRN #1 each 10/14/19 doxycycline hyclate 100 mg PO BID #20 tab 02/03/20 tramadol 50 mg PO Q8H PRN #10 tab 02/04/20 oxycodone-acetaminophen [Percocet] 1 tab PO Q8H PRN #10 tab 02/17/20 doxycycline hyclate 100 mg PO BID #20 tab 04/13/20 Allergies Allergy/AdvReac Type Severity Reaction Status Date / Time hydrocodone Allergy Intermediate RASH/HIVES Verified 10/21/19 21:32 Penicillins Allergy Intermediate RASH/HIVES Verified 10/21/19 21:32 metronidazole Allergy Mild RASH Verified 10/21/19 21:32 diphenhydramine Allergy Unknown Verified 10/21/19 21:32 [DIPHENHYDRAMINE] ibuprofen Allergy Unknown Verified 10/21/19 21:32 venom-wasp Allergy Verified 10/21/19 21:32 ranitidine AdvReac Intermediate SOB/DIZZY Verified 10/21/19 21:32 sulfamethoxazole AdvReac Mild GI UPSET Verified 10/21/19 21:32 [From Bactrim] trimethoprim [From Bactrim] AdvReac Mild GI UPSET Verified 10/21/19 21:32 fentanyl [FENTANYL] AdvReac Unknown vomiting Verified 10/21/19 21:32 ANTACIDS AdvReac Unknown Uncoded 10/14/19 14:41 Review of Systems Constitutional Constitutional: Denies chills, Denies fatigue, Denies fever(s), Denies frequent falls, Denies lethargy and Denies weakness Eyes Eyes: Denies change in vision, Denies eye discharge, Denies irritation and Denies loss of vision ENT Ears, Nose, Mouth, and Throat: Denies change in voice, Denies dizziness, Denies neck pain, Denies sore throat and Denies throat swelling Cardiovascular Cardiovascular: Denies chest pain, Denies irregular heart rhythm, Denies lightheadedness, Denies palpitations, Reports dyspnea, Denies dyspnea on exertion and Denies orthopnea Respiratory Respiratory: Reports change in phlegm color, Denies cough, Reports dyspnea, Denies dyspnea on exertion and Denies wheezing Gastrointestinal Gastrointestinal: Denies abdominal pain, Denies change in bowel habits, Denies diarrhea, Denies nausea and Denies vomiting Musculoskeletal Musculoskeletal: Denies neck pain and Denies numbness Integumentary/Breasts Skin/Breast: Denies pruritus, Reports erythema, Denies rash and Reports wounds Neurologic Neurologic: Denies behavioral changes, Denies confusion, Denies dizziness, Denies frequent falls, Denies loss of vision, Denies numbness and Denies weakness Psychiatric Psychiatric: Denies anxiety, Denies behavioral changes, Denies confusion, Denies depression, Denies homicidal ideation and Denies suicidal ideation Endocrine Endocrine: Denies fatigue, Denies flushing and Denies palpitations Hematologic/Lymphatic Hematologic/Lymphatic: Denies easy bruising Allergic/Immunologic Allergic/Immunologic: Denies urticaria, Denies throat swelling and Denies wheezing Patient History Medical History Chronic pain Community acquired pneumonia Laryngeal cancer MRSA (methicillin resistant Staphylococcus aureus) Otitis media, purulent, acute, with spontaneous rupture of TM Tracheobronchitis Tracheostomy complication Surgical History History of hysterectomy Hx of appendectomy Social History household members: significant other Smoking Status: Former smoker alcohol intake: former Smoking Status: Former smoker tobacco type: cigarettes alcohol intake frequency: 0-2 drinks per day Substance Use Type: does not use Exam Narrative Exam Narrative: GENERAL: [59] year old patient appears stated age. Well-nourished, well-developed patient, in mild distress. Anxious HEAD: Atraumatic. Normocephalic. EYES: Pupils equal round and reactive. Extraocular motions intact. No scleral icterus. No injection or drainage. ENT: Nose without bleeding, purulent drainage. Throat without erythema, tonsillar hypertrophy or exudate. Airway patent. NECK: Trachea midline. Mild skin erythema and break down on left anterior neck L > R. NO edema CARDIOVASCULAR: Regular rate and rhythm without murmurs, gallops, or rubs. RESPIRATORY: Clear to auscultation. Breath sounds equal bilaterally. No wheezes, rales, or rhonchi. GASTROINTESTINAL: Abdomen soft, non-tender, nondistended. EXTREMITIES: No edema or joint tenderness. BACK: Nontender without deformity or crepitance. No flank tenderness. NEURO: AOx3. SKIN: No rash or erythema of visible areas Initial Vital Signs Initial Vital Signs: Vital Signs Temperature 98.2 F 04/13/20 19:31 Pulse Rate 88 04/13/20 19:31 Respiratory Rate 26 H 04/13/20 19:31 Blood Pressure 147/65 H 04/13/20 19:31 Pulse Oximetry 95 04/13/20 19:31 Course Orders Ordered: ED Orders 04/13/20 20:44 CT soft tissue neck w con Stat 04/13/20 21:00 Basic Metabolic Panel Stat Complete Blood Count AUTO DIFF Stat Discontinued Medications Doxycycline Hyclate (Doxycycline Hyclate 100 Mg Tablet) 100 mg PO NOW ONE Stop: 04/13/20 23:03 Last Admin: 04/13/20 23:32 Dose: 100 mg Documented by: PEE Hydromorphone HCl (Hydromorphone 0.5 Mg Inj) 0.5 mg IV NOW ONE Stop: 04/13/20 20:45 Last Admin: 04/13/20 20:56 Dose: 0.5 mg Documented by: MARYCRUZ Hydromorphone HCl (Hydromorphone 0.5 Mg Inj) 0.5 mg IV NOW ONE Stop: 04/13/20 23:03 Last Admin: 04/13/20 23:32 Dose: 0.5 mg Documented by: PEE Vital Signs Vital signs: Vital Signs - 8 hr 04/13/20 21:30 04/13/20 21:35 04/13/20 22:00 Pulse Rate 73 73 78 Blood Pressure 124/60 139/69 Pulse Oximetry 96 93 93 04/13/20 22:30 Pulse Rate 77 Blood Pressure Pulse Oximetry 95 MDM - SOB/Dyspnea Lab Data Result diagrams: 04/13/20 21:00 04/13/20 21:00 Labs: Lab Results 04/13/20 04/13/20 Range/Units 21:00 21:00 WBC 13.2 H (4.5-11.0) X10^3/uL RBC 3.76 L (4.0-5.2) X10^6/uL Hgb 10.8 L (12.0-16.0) g/dL Hct 33.4 L (36-46) % MCV 88.6 (80-100) fL MCH 28.8 (26-34) PG MCHC 32.5 (30-36) % RDW 14.2 (11.6-14.8) % Plt Count 289 (150-400) X10^3/uL Neut % (Auto) 83.7 H (50-75) % Lymph % (Auto) 4.5 L (25-40) % Oliver % (Auto) 9.2 (3-14) % Eos % (Auto) 2.0 (2-4) % Baso % (Auto) 0.6 (0-2) % Neut # (Auto) 36353 H (6202-8678) /uL Lymph # (Auto) 600 L (5808-7555) /uL Oliver # (Auto) 1200 H (0-900) /uL Eos # (Auto) 300 (0-450) /uL Baso # (Auto) 100 (0-100) /uL Sodium 134 L (137-145) mmol/L Potassium 3.7 (3.4-5.1) mmol/L Chloride 105 (98-107) mmol/L Carbon Dioxide 27 (22-32) mmol/L BUN 18 H (7-17) mg/dL Creatinine 0.56 (0.52-1.04) mg/dL Estimated GFR > 60.0 (>60) mL/min BUN/Creatinine Ratio 32.1 H (6-22) Glucose 101 H (70-100) mg/dL Calcium 8.6 (8.4-10.2) mg/dL Point of Care Testing Glucose POC [address] Soft Tissue Neck: Radiologist's Impression: No abscess or obvious abnormality Discharge Plan Departure Patient Disposition: Home Clinical Impression: Cellulitis of neck Instructions: DI for Cellulitis -- Adult Activity Restrictions/Additional Instructions: *You have been diagnosed with [ neck pain with possible mild infection. CT scan is very reasuring ] *What to do: *Take medications as directed: Antibiotics were sent to [facility] *Follow up with your doctors at on Thursday as planned. *Return to ER if you should have any new, worsening or concerning symptoms, such as [ ] Prescriptions: New doxycycline hyclate 100 mg tablet 100 mg PO BID Qty: 20 RF: 0 No Action albuterol sulfate 2.5 MG/3 ML solution for nebulization 1 dose Inhalation QIDP PRN (Reason: Shortness Of Breath) Qty: 180 RF: 0 docusate sodium 100 MG capsule 100 mg PO BID Qty: 0 RF: 0 acetaminophen 325 MG tablet 325 mg PO Q6HP PRN (Reason: Pain, Moderate) Qty: 0 RF: 0 amitriptyline 25 MG tablet 25 mg PO BEDTIME Qty: 0 RF: 0 ascorbic acid (vitamin C) 500 MG tablet 500 mg PO DAILY Qty: 0 RF: 0 fexofenadine 180 MG tablet 180 mg PO DAILY Qty: 0 RF: 0 nystatin 100,000 UNIT/1 ML suspension 1 dose PO DIRECTED PRN (Reason: thrush) Qty: 0 RF: 0 sodium chloride 0.9 % 10 ML solution 1 vial QID PRN (Reason: irrigate tracheostomy) Qty: 0 RF: 0 fexofenadine [Allergy Relief (fexofenadine)] 180 mg tablet RF: 0 citalopram 40 mg tablet 40 mg PO DAILY RF: 0 lisinopril 10 mg tablet 10 mg PO BID RF: 0 estradiol 1 mg tablet 1 mg PO DAILY RF: 0 omeprazole 40 mg capsule,delayed release(DR/EC) 40 mg PO DAILY RF: 0 mupirocin 2 % ointment 1 applictn TOP BID Qty: 15 RF: 0 fluticasone propionate [Flonase Allergy Relief] 50 mcg/actuation spray,suspension 1 spray NASAL BID PRN (Reason: congestion) Qty: 11.1 RF: 0 epinephrine 0.3 mg/0.3 mL auto-injector 0.3 mg IM Q5-15M PRN (Reason: anaphylaxis) Qty: 1 RF: 0 oxycodone-acetaminophen [Percocet] 5-325 mg tablet 1 tab PO Q8H PRN (Reason: pain) Qty: 10 RF: 0 levothyroxine 88 mcg tablet 88 mcg PO DAILY RF: 0 gentamicin 0.1 % ointment 1 applic topical DIRECTED RF: 0 lidocaine 5 % adhesive patch,medicated 1 patch TOP DAILY Qty: 15 RF: 0 tramadol 50 mg tablet 50 mg PO Q8H PRN (Reason: severe pain) Qty: 10 RF: 0 prednisone 20 mg tablet 40 mg PO DAILY Qty: 10 RF: 0 doxycycline hyclate 100 mg capsule 100 mg PO BID Qty: 20 RF: 0 hydrocodone-acetaminophen [[place]] 5-325 mg tablet 1 tab PO Q4-6H PRN (Reason: pain) Qty: 12 RF: 0 ipratropium-albuterol 0.5 mg-3 mg(2.5 mg base)/3 mL solution for nebulization 3 ml INHALATION Q4H PRN (Reason: shortness of breath or wheezing) Qty: 90 RF: 0 albuterol sulfate 2.5 mg /3 mL (0.083 %) solution for nebulization 2.5 mg INHALATION Q4H PRN (Reason: shortness of breath or wheezing) Qty: 90 RF: 0 doxycycline hyclate 100 mg tablet 100 mg PO BID Qty: 20 RF: 0 tramadol 50 mg tablet 50 mg PO Q8H PRN (Reason: pain) Qty: 10 RF: 0 Referrals: Eusebio Hammer MD [Primary Care Provider] -
--- NOTE | 2020-04-13 20:44 | DI.CT.S_ITS ---
PROCEDURE: CT SOFT TISSUE NECK W CON INDICATIONS: pain and drainage from tracheostomy site TECHNIQUE: After the administration of intravenous contrast, 3.0 mm axial sections acquired from the sella to the aortic arch. Additional oblique axial 3.0 mm sections acquired through the pharynx. 3 mm thick coronal and sagittal reformats were generated. For radiation dose reduction, the following was used: automated exposure control. COMPARISON: [facility], CT, CT ANGIO NECK, 09/16/2018, 9:39. [facility], CT, CT SOFT TISSUE NECK W CON, 03/21/2019, 0:16. [facility], CT, CT SOFT TISSUE NECK W CON, 07/06/2019, 22:31. [facility], CT, CT SOFT TISSUE NECK W CON, 02/17/2020, 20:44. FINDINGS: Image quality: Excellent. Lymph nodes: No new enlarged lymph nodes are noted throughout the neck by size criteria. Subpectoral lymph nodes are again noted. These are increased in prominence from prior examination. Lymph node measuring 1.0 centimeter short axis diameter (series 2, image 71) previously measured 7 millimeters in short axis diameter. Right paratracheal lymph node measuring 9 millimeters in short axis diameter is unchanged. Vessels: Visualized vasculature appears patent. Neck spaces: Extensive postsurgical changes are redemonstrated status post prior laryngectomy, bilateral neck dissection, and mild continuous flap placement which is similar to prior examination. Mild asymmetric mucosal thickening within the left para form sinuses also unchanged from prior studies. Tracheostomy tube is unchanged in position. There is adjacent inflammation which is new from prior examination. No focal fluid collection. Persistent mild wall thickening throughout the esophagus. Fatty atrophy of the lung bases also unchanged. Glands: Unchanged without acute abnormality. The thyroid gland is surgically absent. Miscellaneous: Visualized brain and orbits appear normal. Lung apices demonstrate a pickle scarring possibly compatible with radiation pneumonitis. Bones: No suspicious bony lesions. Visualized sinuses are clear. Stable left mastoid effusion. IMPRESSION: Mild soft tissue edema adjacent to the tracheostomy site without evidence of focal fluid collection to suggest abscess. Left subpectoral adenopathy progressed from prior exams. Chronic and postoperative findings as above. Unchanged left mastoid effusion. Dictated by: Corbin Peguero D.O. on 04/14/2020 at 8:41 Approved by: Corbin Peguero D.O. on 04/14/2020 at 8:53
[2020-04-13] MEDS: HYDROMORPHONE 0.5 MG INJ IV ×2 (20:56→23:32)
[2020-04-13 21:07] LABS: Add Manual Diff / Slide Review NO; Basophils Absolute Auto 100 /uL (0-100); Basophils Percent Auto 0.6 % (0-2); Eosinophils Absolute Auto 300 /uL (0-450); Hematocrit 33.4 % (36-46); Hemoglobin 10.8 g/dL (12.0-16.0); Lymphocytes Absolute Auto 600 /uL (1100-4500); Lymphocytes Percent Auto 4.5 % (25-40); Mean Corpuscular HGB Conc 32.5 % (30-36); Mean Corpuscular Hemoglobin 28.8 PG (26-34); Mean Corpuscular Volume 88.6 fL (80-100); Monocytes Absolute Auto 1200 /uL (0-900); Monocytes Percent Auto 9.2 % (3-14); Neutrophils Absolute Auto 11100 /uL (1500-7000); Neutrophils Percent Auto 83.7 % (50-75); Platelet Count 289 X10^3/uL (150-400); Red Blood Cell Count 3.76 X10^6/uL (4.0-5.2); Red Cell Distribution Width 14.2 % (11.6-14.8); White Blood Cell Count 13.2 X10^3/uL (4.5-11.0)
[2020-04-13 21:18] LABS: BUN Creatinine Ratio 32.1 (6-22); Blood Urea Nitrogen 18 mg/dL (7-17); Calcium 8.6 mg/dL (8.4-10.2); Carbon Dioxide 27 mmol/L (22-32); Chloride 105 mmol/L (98-107); Estimated Glomerular Filt Rate > 60.0 mL/min (>60); Glucose 101 mg/dL (70-100); HEMOLYSIS < 15 (0-50); Potassium 3.7 mmol/L (3.4-5.1); Sodium 134 mmol/L (137-145)
[2020-04-13] MEDS: DOXYCYCLINE HYCLATE 100 MG TABLET PO (23:32)
== END 2020-04-13 23:45 | disposition home or self-care (01) ==
PROVIDERS: Emergency Provider Emergency Medicine; PCP Internal Medicine
DX: L03.221 Cellulitis of neck (principal); R06.02 Shortness of breath; F41.9 Anxiety disorder, unspecified; M54.2 Cervicalgia; J95.00 Unspecified tracheostomy complication
CPT/HCPCS: 70491; 71046; 80048; 85025; 96374; 96376; 99284; J1170; Q9967